=== PATIENT | male | born 1960 | race Caucasian/White ===

== ENCOUNTER 2023-04-19 08:25 | Outpatient (OUT) | payer OTHER, SELFPAY ==
[2023-04-19 09:26] LABS: Anion Gap 10.8; BUN Creatinine Ratio 10.1; Carbon Dioxide 27.7 mmol/L (21.0-32.0); Chloride 105 mmol/L (98-107); Estimated GFR (African America 55 (>=60); Estimated GFR (Non-African Ame 45 (>=60); Glucose 99 mg/dL (74-106); Potassium 4.5 mmol/L (3.5-5.1); Sodium 139 mmol/L (136-145)
== END 2023-04-19 08:26 | disposition home or self-care (01) ==
LOC: LAB 08:25
PROVIDERS: PCP Family Medicine; Visit Provider Nurse Practitioner
DX: I10 Essential (primary) hypertension (principal)
CPT/HCPCS: 36415; 80048

== ENCOUNTER 2023-04-26 08:39 | Outpatient (OUT) | payer OTHER, SELFPAY ==
--- OUTSIDE RECORDS SUMMARY | 2023-04-26 08:42 | XMS_ITS | CCD ---
Author Name Unknown Address [address] [facility], [place] [address] [place] [address] Organization [facility] Care Team Providers Care Information Technology Director Name Role Phone YONG, DR VALDIVIA Consulting Unavailable YONG, DR VALDIVIA Primary Care Unavailable YONG, DR VALDIVIA Attending Unavailable DELPHINEY, DR VALDIVIA Admitting Unavailable MIKE RADFORD Consulting Unavailable MALINA, MIKE Attending Unavailable MIKE RADFORD Admitting Unavailable YONG, DR VALDIVIA Primary Care Unavailable STEVE PALACIOS Consulting Unavailable YONG, DR VALDIVIA Primary Care Unavailable YONG, DR VALDIVIA Attending Unavailable YONG, DR VALDIVIA Admitting Unavailable DELPHINEY, DR VALDIVIA Primary Care Unavailable HOMarco Antonio, DR VALDIVIA Attending Unavailable YONG, DR VALDIVIA Admitting Unavailable YONG, DR VALDIVIA Consulting Unavailable YONG, DR VALDIVIA Primary Care Unavailable YONG, DR VALDIVIA Attending Unavailable YONG, DR VALDIVIA Admitting Unavailable Zieber, DR Elise Consulting Unavailable DELPHINEY, DR VALDIVIA Consulting Unavailable YONG, DR VALDIVIA Primary Care Unavailable YONG, DR VALDIVIA Attending Unavailable YONG, DR VALDIVIA Admitting Unavailable Bear, DR Davila Consulting Unavailable YONG, DR VALDIVIA Consulting Unavailable YONG, DR VALDIVIA Primary Care Unavailable YONG, DR VALDIVIA Attending Unavailable YONG, DR VALDIVIA Admitting Unavailable Bear, DR Davila Consulting Unavailable YONG, DR VALDIVIA Consulting Unavailable YONG, DR VALDIVIA Primary Care Unavailable YONG, DR VALDIVIA Attending Unavailable YONG, DR VALDIVIA Admitting Unavailable YONG, DR VALDIVIA Consulting Unavailable YONG, DR VALDIVIA Primary Care Unavailable YONG, DR VALDIVIA Attending Unavailable YONG, DR VALDIVIA Admitting Unavailable YONG, DR VALDIVIA Consulting Unavailable YONG, DR VALDIVIA Primary Care Unavailable YONG, DR VALDIVIA Attending Unavailable YONG, DR VALDIVIA Admitting Unavailable MD Shea Beach Primary Care Provider [phone] DO Damien Hercules Emergency Provider MD Derick Gomes Admit Provider [phone] MD Derick Gomse Attending Provider [phone] Claudia Parra Consulting Unavailable Shea Beach Primary Care Unavailable [place] Attending Unavailable Derick Gomes Admitting Unavailable Alistair Morelos Consulting Unavailable Steve See Consulting Unavailable Mike Lama Consulting Unavail able Eric Villa Consulting Unavailable Magdy Rose Consulting Unavailab Andra Bernstein Consulting Unavailable Michelle Dumont Consulting Unavailable Jean Gustafson Consulting Unavailab Adelita Jaimes Consulting Unavailable Rosanne Heard Consulting Unavailable Diann Garcia Consulting Unavailable Shea Beach MD Primary Care Provider [phone] Allergies Allergy Classification Reported Allergen(s) Allergy Type Date of Onset Reaction(s) Facility (1 source) Aminolevulinic Acid Drug Allergy 0 [facility] Repository (2 sources) Nitroglycerin Drug Allergy 9 Other [facility] Medications Current Medications Medication Drug Class(es) Dates Sig (Normalized) Sig (Original) amLODIPine 10 mg oral tablet (2 sources) Dihydropyridine Calcium Channel Long Start: 01-22-2023 End: 01-23-2024 take 1 tablet by mouth once daily amLODIPine (Norvasc) 10 mg tablet Indications: Hypertensive left ventricular hypertrophy, without heart failure Take 1 tablet (10 mg) by mouth once daily. 90 tablet 3 01/23/2023 01/23/2024 Active azelastine hydrochloride 0.5 mg/ml ophthalmic solution (1 source) Histamine-1 Receptor Antagonist Start: 2022 take 1 drop(s) into the eye(s) once daily Azelastine Active 1 DROPS EYE-BOTH Daily 2022 12:00am doxazosin 4 mg oral tablet (4 sources) alpha-Adrenergic Long Start: 2022 take 2 tablets by mouth once daily Doxazosin Active 4 MG PO Daily 2022 12:00am takes 2 tabs take 1 tablet by melissa th every twelve hours doxazosin (Cardura) 4 mg tablet Take 1 tablet (4 mg) by mouth every 12 hours. 0 Active empagliflozin 10 mg oral tablet (2 sources) Sodium-Glucose Cotransporter 2 Inhibitor Start: 12-13-2022 take 1 tablet by mouth once daily Jardiance 10 mg Take 1 tablet (10 mg) by mouth once daily. 0 12/13/2022 Active 24 hr metFORMIN hydrochloride 500 mg extended release oral tablet (3 sources) Biguanide Start: 2022 take 500 mg by mouth once daily at bedtime Metformin Active 500 MG PO Daily at bedtime 2022 12:00am Start: 06-17-2022 take 1 tablet by melissa th every twenty-four hours metFORMIN XR 500 mg 24 hr tablet Take 1 tablet (500 mg) by mouth once every 24 hours. 0 06/17/2022 Active 24 hr metoprolol succinate 25 mg extended release oral tablet (4 sources) beta-Adrenergic Long Start: 01-22-2023 metopr olol succinate XL (Toprol-XL) 25 mg 24 hr tablet Indications: Hypertensive left ventricular hypertrophy, without heart failure Take 1.5 tablets daily (37.5mg) daily 135 tablet 0 01/23/2023 Active Start: 2022 take 1.5 tablets by mouth once daily Metoprolol Succinate Active 100 MG PO Daily 2022 12:00am take 1.5tabs Start: 11-16-2018 End: 01-22-2023 take 1 tablet by mouth twice daily metoprolol succinate XL (Toprol-XL) 25 mg 24 hr tablet Take 1 tablet (25 mg) by mouth twice a day. 0 11/16/2018 01/22/2023 Discontinued (Med List Cleanup) Ozempic 0.25 mg or 0.5 mg (2 mg/3 mL) pen injector (2 sources) Start: 12-13-2022 Ozempic 0.25 mg or 0.5 mg (2 mg/3 mL) pen injector spironolactone 25 mg oral tablet (1 source) Aldosterone Antagonist Start: 03-25-2023 End: 03-24-2024 take 1 tablet by mouth once daily spironolactone (Aldactone) 25 mg tablet Indications: Essential hypertension Take 1 tablet (25 mg) by mouth once daily. 30 tablet 11 03/25/2023 03/24/2024 Active valsartan 320 mg oral tablet (3 sources) Angiotensin 2 Receptor Long Start: 01-22-2023 End: 01-23-2024 take 1 tablet by mouth once daily valsartan (Diovan) 320 mg tablet Indications: Hypertensive left ventricular hypertrophy, without heart failure Take 1 tablet (320 mg) by mouth once daily. 90 tablet 3 01/23/2023 01/23/2024 Active End: 01-22-2023 take 1 tablet by mouth once daily valsartan (Diovan) 160 mg tablet Take 1 tablet (160 mg) by mouth once daily. 0 01/22/2023 Discontinued (Med List Cleanup) Completed/Discontinued Medications Medication Drug Class(es) Dates Sig (Normalized) Sig (Original) hydrALAZINE hydrochloride 50 mg oral tablet (1 source) Arteriolar Vasodilator Start: End: take 1 tablet by mouth twice daily hydrALAZINE (Apresoline) 50 mg tablet Take 1 tablet (50 mg) by mouth twice a day. 0 09/10/2018 01/22/2023 Discontinued (Therapy completed) hydroCHLOROthiazide 25 mg oral tablet (1 source) Thiazide Diuretic End: take 1 tablet by mouth once daily hydroCHLOROthiazide (HYDRODiuril) 25 mg tablet Take 1 tablet (25 mg) by mouth once daily. 0 01/22/2023 Discontinued (Therapy completed) Problems Active Problems Problem Classification Problem Date Documented Da te Episodic/Chronic Acute bronchitis (1 source) Acute bronchitis, unspecified; Translations: [ACUTE BRONCHITIS UNSPECIFIED] Onset: 11-01-2021 Episodic Cancer of kidney and renal pelvis (9 sources) Malignant neoplasm of unspecified kidney, except renal pelvis; Translations: [Malignant neoplasm of left kidney, except renal pelvis] Onset: 03-27-2021 Chronic Diabetes mellitus without complication (8 sources) Type 2 diabetes mellitus without complications; Translations: [Type 2 diabetes mellitus] Onset: 04-09-2021 Chronic Diabetes mellitus without complication (1 source) Other abnormal glucose; Translations: [OTHER ABNORMAL GLUCOSE] Onset: 11-28-2021 Episodic Essential hypertension (9 sources) Essential (primary) hypertension; Translations: [Essential hypertension] Onset: 11-24-2021 Chronic Hypertension with complications and secondary hypertension (6 sources) Hypertensive urgency ; Translations: [Hypertensive urgency] Onset: 2022 2022 Chronic Nonspecific chest pain (4 sources) Chest pain; Translations: [Chest pain, unspecified] Onset: 2022 2022 Episodic Other diseases of kidney and ureters (2 sources) Renal mass; Translations: [Other specified disorders of kidney and ureter] Onset: 01-17-2023 01-17-2023 Chronic Other nutritional; endocrine; and metabolic disorders (4 sources) Body mass index 40+ - severely obese; Translations: [Body mass index (BMI) 40.0-44.9, adult] Onset: 01-23-2023 01-23-2023 Chronic Residual codes; unclassified (4 sources) Obstructive sleep apnea (adult) (pediatric); Translations: [OBSTRUCTIVE SLEEP APNEA] Onset: 04-10-2021 Chronic Residual codes; unclassified (3 sources) Obstructive sleep apnea syndrome; Translations: [Obstructive sleep apnea (adult) (pediatric)] Onset: 01-22-2023 01-22-2023 Chronic Unclassified (3 sources) CONTACT W/AND (SUSP) EXPOS COVID-19; Translations: [CONTACT W/AND (SUSP) EXPOS COVID-19] Onset: 11-01-2021 Past or Other Problems Problem Classification Problem Date Documented Da te Episodic/Chronic Neoplasms of unspecified nature or uncertain behavior (2 sources) Neoplasm of kidney; Translations: [Neoplasm of unspecified behavior of unspecified kidney] Onset: 12-22-2018 01-17-2023 Episodic Other non-traumatic joint disorders (3 sources) Pain in left knee; Translations: [PAIN IN LEFT KNEE] Onset: 03-25-2021 Episodic Other non-traumatic joint disorders (1 source) Effusion, left knee; Translations: [EFFUSION LEFT KNEE] Onset: 03-27-2021 Episodic Unclassified (1 source) CONTACT W/AND (SUSP) EXPOS COVID-19; Translations: [CONTACT W/AND (SUSP) EXPOS COVID-19] Onset: 10-31-2021 Results Test Name Value Interpretation Reference Range Facility [facility] W stress and W radionuclide Karen 12-17-2022 Normal exercise Myov iew cardiac perfusion stress test. No evidence of ischemia or myocardial infarction by perfusion imaging. Normal left ventricular systolic function, ejection fraction 59%. No exercise provoked significant ischemic ECG changes or chest pain symptoms. No previous study available for comparison Patient was able to exercise for only 4 minute per the Truong protocol but was able to achieve 88% of maximum predicted heart rate. This consistent with poor cardiopulmonary conditioning. Signed by: Eric Villa 12/17/2022 5:57 PM Dictation workstation: [id number] [facility] Interpreted By: Eric Villa and Giannuzzi Michael STUDY: MYOCARDIAL PERFUSION STRESS TEST WITH EXERCISE Performing facility: [facility], [address] [place] [address], [address], [address] Provider: Chaim Morelos DO, FACC PCP: Dr. Beach Supervising provider: Andra Ramirez RN, EXAMINATION SCORER INDICATION: Chest Pain; HISTORY: Gender: M; Age: 62 y/o ; Height: cm; Weight: kg. Diabetes; Family HX CAD; HTN; SOB; Denies smoking. COMPARISON: No comparison. ACCESSION NUMBER(S): [id number] ORDERING CLINICIAN: MIKE MORELOS TECHNIQUE: TWO DAY protocol. Stress injection: Date:12-16-22, 34.5 mCi of Myoview IV at peak exercise. Rest injection: Date: 12-17-22, 11.7 mCi of Myoview IV at rest. Imaging was performed by gated tomographic technique. STRESS TEST DATA: Resting heart rate was 67 BPM. Resting blood pressure was 160/84 mmHg. The patient exercised using a Truong exercise protocol. 4:01 minutes exercised. 88 % of MPHR achieved for age. 5.80 METS achieved. Maximum heart rate was 142 BPM. Maximum blood pressure was 200/90 mmHg. DTS 4. TEST TERMINATED DUE TO: Dyspnea FINDINGS: STRESS TEST RESULTS: Resting electrocardiogram revealed normal sinus rhythm with poor R-wave progression the anterior lead. The patient had no significant ECG changes with maximal stress. The patient did not have chest pains/symptoms during the procedure. There was a normal recovery phase. There were no significant dysrhythmias. IMAGING RESULTS: Image quality was good. Rest and stress tomographic images were reviewed and revealed normal perfusion without evidence of ischemia, myocardial infarction, or left ventricular dilatation with stress. Overall left ventricular systolic function appeared to be normal without regional wall motion abnormalities. LV ejection fraction was 59 %. TID is 1.02 and is normal. There were no evidence of attenuation artifact. [facility] Eric Villa MD - 12/17/2022 Interpreted By: Eric Villa and Giannuzzi Michael STUDY: MYOCARDIAL PERFUSION STRESS TEST WITH EXERCISE Performing facility: [facility], [address] [facility], [address], [address] Provider: Chaim Morelos DO, FACC PCP: Dr. Beach Supervising provider: Andra Ramirez RN, EXAMINATION SCORER INDICATION: Chest Pain; HISTORY: Gender: M; Age: 62 y/o ; Height: cm; Weight: kg. Diabetes; Family HX CAD; HTN; SOB; Denies smoking. COMPARISON: No comparison. ACCESSION NUMBER(S): [id number] ORDERING CLINICIAN: MIKE MORELOS TECHNIQUE: TWO DAY protocol. Stress injection: Date:12-16-22, 34.5 mCi of Myoview IV at peak exercise. Rest injection: Date: 12-17-22, 11.7 mCi of Myoview IV at rest. Imaging was performed by gated tomographic technique. STRESS TEST DATA: Resting heart rate was 67 BPM. Resting blood pressure was 160/84 mmHg. The patient exercised using a Truong exercise protocol. 4:01 minutes exercised. 88 % of MPHR achieved for age. 5.80 METS achieved. Maximum heart rate was 142 BPM. Maximum blood pressure was 200/90 mmHg. DTS 4. TEST TERMINATED DUE TO: Dyspnea FINDINGS: STRESS TEST RESULTS: Resting electrocardiogram revealed normal sinus rhythm with poor R-wave progression the anterior lead. The patient had no significant ECG changes with maximal stress. The patient did not have chest pains/symptoms during the procedure. There was a normal recovery phase. There were no significant dysrhythmias. IMAGING RESULTS: Image quality was good. Rest and stress tomographic images were reviewed and revealed normal perfusion without evidence of ischemia, myocardial infarction, or left ventricular dilatation with stress. Overall left ventricular systolic function appeared to be normal without regional wall motion abnormalities. LV ejection fraction was 59 %. TID is 1.02 and is normal. There were no evidence of attenuation artifact. IMPRESSION: Normal exercise Myoview cardiac perfusion stress test. No evidence of ischemia or myocardial infarction by perfusion imaging. Normal left ventricular systolic function, ejection fraction 59%. No exercise provoked significant ischemic ECG changes or chest pain symptoms. No previous study available for comparison Patient was able to exercise for only 4 minute per the Truong protocol but was able to achieve 88% of maximum predicted heart rate. This consistent with poor cardiopulmonary conditioning. Signed by: Eric Villa 12/17/2022 5:57 PM Dictation workstation: [id number] [facility] Work Phone: NM Heart Perfusion W stress and W radionuclide IVOrdered By: Eric Villa on 12-17-2022 [facility] Work Phone: NM Heart Perfusion W stress and W radionuclide Karen 12-16-2022 Radiology Study observation (narrative) [facility] Work Phone: Glucose Poct Glucometerson 1 Glucose [Mass/Vol] 132 mg/dL Normal [facility] Comment on above: Result Comment: [facility] Glucose Reference Range is dependent on time and content of last meal. Glucose of more than 200 mg/dL in a nonstressed, ambulatory subject supports the diagnosis of Diabetes Mellitus. PERFORMED BY: [place] [address] PATHOLOGIST SYSTEMS PROGRAM MANAGER ROSCOE CASTRO M.D. Performed By: #### C BC, BMP, BNP, HS TROP, CK #### [place] [phone] [facility] Glucose [Mass/Vol] 141 mg/dL Normal [facility] Comment on above: Result Comment: [facility] Glucose Reference Range is dependent on time and content of last meal. Glucose of more than 200 mg/dL in a nonstressed, ambulatory subject supports the diagnosis of Diabetes Mellitus. PERFORMED BY: [place] [address] PATHOLOGIST SYSTEMS PROGRAM MANAGER ROSCOE CASTRO M.D. Performed By: #### C BC, BMP, BNP, HS TROP, CK #### [facility] [phone] [facility] ECH echo transthoracicon [facility] echo transthoracic [facility] Main [place] [address] [place] [address] Echocardiogram Signed Patient: Clarence Flores MR#: [id number] : 1960 Acct:[id number] Age/Sex: 62 / M ADM Date: 11/10/22 Loc: Room: [address] [place] [address] Type: ADM INOo Attending Dr[facility] Order[facility] Provider: Maura Venegas MD Date of Service: 11/10/2203/04/1501 [facility] echo transthoracic: chest pain Copies to: MD Maura Darby MD BSA: 2.3 m2 BP: 169/76 mmHg HR: 58 Reason For Study: chest pain History: DM. HTN. Cancer. Interpretation Summary Left ventricular systolic function is hyperdynamic. Ejection Fraction = >70%. Moderate concentric left ventricular hypertrophy. The left ventricular wall motion is normal. There is trace mitral regurgitation. There is no comparison study available. Procedure/Quality: A two-dimensional transthoracic echocardiogram with color flow, Doppler and injection of contrast agent Definity was performed. A two- dimensional transthoracic echocardiogram with color flow and Doppler was performed. Left Ventricle: Moderate concentric left ventricular hypertrophy. The left ventricular size is normal. Ejection Fraction = >70%. Left ventricular systolic function is hyperdynamic. The left ventricular wall motion is normal. Left Atrium: The left atrium appears normal in size. Right Atrium: The right atrium appears normal in size. Right Ventricle: The right ventricular size, thickness and function are normal. Aortic Valve: The aortic valve is normal in structure and function. No aortic regurgitation is present. Mitral Valve: The mitral valve is normal in structure and function. There is trace mitral regurgitation. Tricuspid Valve: The tricuspid valve is normal in structure and function. No tricuspid regurgitation. Pulmonic Valve: The pulmonic valve is not well seen, but is grossly normal. Arteries: The aortic root is normal size. Pericardium/Pleura: No pericardial effusion seen. There is no pleural effusion. IVC/Hepatic Viens: The inferior vena cava is normal in size, with a normal collapsibility index. Measurements with Normals IVSd: 1.3 cm (0.7-1.1 cm)LVIDd: 5.2 cm (3.7-5.4 cm) LVPWd: 1.3 cm (0.7-1.1 cm)LVIDs: 3.2 cm (2.3-3.6 cm) LA dimension: 4.7 cm (2.3-4.0 cm)Ao root diam: 3.5 cm(2.0-3.6 cm) asc Aorta Diam: 3.6 cm(2.1-3.4cm) Doppler with Normals LV V1 max: 129.6 cm/sec (0.7-1.7m/s)MV E max abran: 82.7 cm/sec(0.8-1.3m/s) MV A max abran: 70.7 cm/sec(0.0-0.0m/s) MV E/A: 1.2 (<1.5) MMode/2D Measurements Calculations TAPSE: 2.3 cm FS: 39.0 % Ao root area: LVOT diam: 2.2 cm RV S Abran: EDV(Teich): 9.7 cm2 LVOT area: 3.8 cm2 13.9 cm/sec 131.8 ml ESV(Teich): 40.8 ml EF(Teich): 69.0 % __ LVLd ap4: 8.5 cm SV(MOD-sp4): LAV(MOD-sp4): LA A2 area: 25.5 cm2 EDV(MOD-sp4): 140.3 ml 68.5 ml 194.0 ml LAV(MOD-sp2): LA A4 area: 23.1 cm2 LVLs ap4: 7.5 cm 80.8 ml LA length (vol): ESV(MOD-sp4): 6.0 cm 53.7 ml LA vol: 83.6 ml EF(MOD-sp4): 72.3 % LA vol index: 36.1 ml/m2 Doppler Measurements Calculations MV dec time: MV max PG: E/E' lat: 7.7 MV dec slope: 0.26 sec 33.0 mmHg E/E' med: 9.5 319.5 cm/sec2 __ Ao V2 max: LV V1 max PG: MR max abran: RAP systole: 3.0 mmHg 173.7 cm/sec 6.7 mmHg 288.1 cm/sec Ao max PG: LV V1 mean PG: MR max P.1 mmHg 3.6 mmHg 34.6 mmHg Ao mean PG: LV V1 mean: 6.5 mmHg 89.7 cm/sec Ao V2 mean: LV V1 VTI: 26.5 cm 119.6 cm/sec Ao V2 VTI: 36.3 cm JAVIER(I,D): 2.8 cm2 JAVIER(V,D): 2.9 cm2 Transcribed By: MAREK Performed At: 11/11/22 1126 Signed By: Lalita Capellan MD 11/12/22 1033 Normal [facility] Glucose Poct Glucometerson 1 Glucose [Mass/Vol] 156 mg/dL Normal [facility] Comment on above: Result Comment: [facility] Glucose Reference Range is dependent on time and content of last meal. Glucose of more than 200 mg/dL in a nonstressed, ambulatory subject supports the diagnosis of Diabetes Mellitus. PERFORMED BY: [place] [address] PATHOLOGIST SYSTEMS PROGRAM MANAGER ROSCOE CASTRO M.D. Performed By: #### G LULS #### Point of Care testing , Glucose [Mass/Vol] 187 mg/dL Normal [facility] Comment on above: Result Comment: [facility] Glucose Reference Range is dependent on time and content of last meal. Glucose of more than 200 mg/dL in a nonstressed, ambulatory subject supports the diagnosis of Diabetes Mellitus. PERFORMED BY: [place] [address] PATHOLOGIST SYSTEMS PROGRAM MANAGER ROSCOE CASTRO M.D. Performed By: #### C BC, BMP, BNP, HS TROP, CK #### [address] Glucose [Mass/Vol] 162 mg/dL Normal [facility] Comment on above: Result Comment: [facility] Glucose Reference Range is dependent on time and content of last meal. Glucose of more than 200 mg/dL in a nonstressed, ambulatory subject supports the diagnosis of Diabetes Mellitus. PERFORMED BY: [place] [id number] PATHOLOGIST SYSTEMS PROGRAM MANAGER ROSCOE CASTRO M.D. Performed By: #### C BC, BMP, BNP, HS TROP, CK #### [facility] [address] [phone] [facility] A1C with Estimated Average G luon 2022 Glucose [Mass/Vol] 157 mg/dL Normal [facility] Comment on above: Order Comment: Comme nt add Result Comment: PERF ORMED BY: [place] [id number] PATHOLOGIST SYSTEMS PROGRAM MANAGER ROSCOE CASTRO M.D. Performed By: #### C BC, BMP, BNP, HS TROP, CK #### [place] [phone] [facility] HbA1c (Bld) [Mass fraction] 7.1 % High 4.3-5.6 [facility] Comment on above: Order Comment: Comme nt add Result Comment: Incr eased risk for diabetes: 5.7 - 6.4 diabetes: >6.4 glycemic control for adults with diabetes: <7.0 Performed By: #### C BC, BMP, BNP, HS TROP, CK #### [facility] [address] [place], [place] [phone] [facility] Activated partial thrombopla stin time (aPTT) in platelet poor plasma by coagulation aOrdered By: Damien Hercules on 2022 aPTT Coag (PPP) [Time] 29.0 s 25.1-36.5 [facility] Comment on above: A hematocrit value g reater than 55% may lead to inaccurate results in coagulation testing. Patients having hematocrit values >55% require a special collection tube for coagulation studies. Please contact the laboratory at [phone] for redraw instructions. B-Type Natriuretic Peptideon 2022 Natriuretic peptide B (Bld) [Mass/Vol] 101.0 pg/mL High 5-100 [facility] Comment on above: Result Comment: PERF ORMED BY: [place] [address] PATHOLOGIST SYSTEMS PROGRAM MANAGER ROSCOE CASTRO M.D. Performed By: #### C BC, BMP, BNP, HS TROP, CK #### [address] Basic Metabolic Panelon Anion gap [Moles/Vol] 11.3 mmol/L Normal 6.0-15.0 [facility] Comment on above: Performed By: #### B MP #### [address] Calcium [Mass/Vol] 9.2 mg/dL Normal 8.6-10.3 [facility] Comment on above: Performed By: #### B MP #### [address] Chloride [Moles/Vol] 106 mmol/L Normal 98-107 [facility] Comment on above: Performed By: #### B MP #### [address] CO2 [Moles/Vol] 25.2 mmol/L Normal 21.0-31.0 [facility] Comment on above: Performed By: #### B MP #### [address] Creatinine [Mass/Vol] 1.22 mg/dL Normal 0.70-1.30 [facility] Comment on above: Performed By: #### B MP #### [place] [address] [place] Creatinine Clr Calc Pharmacy 82.15 Normal [facility] Comment on above: Result Comment: PERF ORMED BY: [place] [address] PATHOLOGIST SYSTEMS PROGRAM MANAGER ROSCOE CASTRO M.D. Performed By: #### B MP #### [place] [address] [place] GFR/1.73 sq M.predicted MDRD (S/P/Bld) [Vol rate/Area] mL/min/{1.73_m2} Normal [facility] Comment on above: Performed By: #### B MP #### [address] Glucose [Mass/Vol] 298 mg/dL Significant change up 70-100 [facility] Comment on above: Result Comment: [facility] [place] Glucose Reference Range is dependent on time and content of last meal. Glucose of more than 200 mg/dL in a nonstressed, ambulatory subject supports the diagnosis of Diabetes Mellitus. ADA recommended reference range Performed By: #### B MP #### [address] Potassium [Moles/Vol] 3.5 mmol/L Normal 3.5-5.1 [facility] Comment on above: Performed By: #### B MP #### [place] [address] [place] Sodium [Moles/Vol] 139 mmol/L Normal 136-145 [facility] Comment on above: Performed By: #### B MP #### [address] Urea nitrogen [Mass/Vol] 13 mg/dL Normal 7-25 [facility] Comment on above: Performed By: #### B MP #### [place] [address] [place] Anion gap [Moles/Vol] 10.4 mmol/L Normal 6.0-15.0 [facility] Comment on above: Performed By: #### C BC, BMP, BNP, HS TROP, CK #### [place] [address] [place] Calcium [Mass/Vol] 9.0 mg/dL Normal 8.6-10.3 [facility] Comment on above: Performed By: #### C BC, BMP, BNP, HS TROP, CK #### [address] [place] [address] [place] Chloride [Moles/Vol] 106 mmol/L Normal 98-107 [facility] Comment on above: Performed By: #### C BC, BMP, BNP, HS TROP, CK #### [facility] [address] CO2 [Moles/Vol] 26.2 mmol/L Normal 21.0-31.0 [facility] Comment on above: Performed By: #### C BC, BMP, BNP, HS TROP, CK #### [facility] [address] Creatinine [Mass/Vol] 1.39 mg/dL High 0.70-1.30 [facility] Comment on above: Performed By: #### C BC, BMP, BNP, HS TROP, CK #### [address] Creatinine Clr Calc Pharmacy 72.10 [facility] Comment on above: Result Comment: PERF ORMED BY: [place] [address] PATHOLOGIST SYSTEMS PROGRAM MANAGER ROSCOE CASTRO M.D. Performed By: #### C BC, BMP, BNP, HS TROP, CK #### [address] GFR/1.73 sq M.predicted MDRD (S/P/Bld) [Vol rate/Area] 58.037 mL/min/{1.73_m2} [facility] Comment on above: Performed By: #### C BC, BMP, BNP, HS TROP, CK #### [place] [address] [place] Glucose [Mass/Vol] 170 mg/dL High 70-100 [facility] Comment on above: Result Comment: [place] Glucose Reference Range is dependent on time and content of last meal. Glucose of more than 200 mg/dL in a nonstressed, ambulatory subject supports the diagnosis of Diabetes Mellitus. ADA recommended reference range Performed By: #### C BC, BMP, BNP, HS TROP, CK #### [facility] [address] Potassium [Moles/Vol] 3.6 mmol/L Normal 3.5-5.1 [facility] Comment on above: Performed By: #### C BC, BMP, BNP, HS TROP, CK #### [facility] [address] Sodium [Moles/Vol] 139 mmol/L Normal 136-145 [facility] Comment on above: Performed By: #### C BC, BMP, BNP, HS TROP, CK #### [facility] [address] Urea nitrogen [Mass/Vol] 14 mg/dL Normal 7-25 [facility] Comment on above: Performed By: #### C BC, BMP, BNP, HS TROP, CK #### [facility] [address] Basophils Auto (Bld) [#/Vol] Ordered By: Damien Hercules on 2022 Basophils (Bld) [#/Vol] 0.1 10*3/uL 0.0-0.2 [facility] Basophils/100 WBC Auto (Bld) Ordered By: Damien Hercules on 2022 Basophils/100 WBC (Bld) 1.0 % . [facility] Calcium [Mass/volume] in Ser um or PlasmaOrdered By: Damien Hercules on 2022 Calcium [Mass/Vol] 9.0 mg/dL 8.6-10.3 [facility] Carbon dioxide, total [Moles /volume] in Serum or PlasmaOrdered By: Damien Hercules on 2022 CO2 [Moles/Vol] 26.2 mmol/L 21.0-31.0 [facility] Chloride [Moles/volume] in S luke or PlasmaOrdered By: Damien Hercules on 2022 Chloride [Moles/Vol] 106 mmol/L 98-107 [facility] Coagulation Profileon 2022 aPTT Coag (Bld) [Time] 29.0 s Normal 25.1-36.5 [facility] Comment on above: Order Comment: REDRA W Result Comment: A he matocrit value greater than 55% may lead to inaccurate results in coagulation testing. Patients having hematocrit values >55% require a special collection tube for coagulation studies. Please contact the laboratory at [phone] for redraw instructions. PERFORMED BY: [place] [address] PATHOLOGIST SYSTEMS PROGRAM MANAGER ROSCOE CASTRO M.D. Performed By: #### C BC, BMP, BNP, HS TROP, CK #### [address] INR Coag (PPP) [Relative time] 1.0 {INR} Normal [facility] Comment on above: Order Comment: REDRA W Result Comment: INR Therapeutic Range A) Pre- and Peroperative OAT started two weeks before surgery. NOT HIP SURGERY: 1.5 - 2.5 HIP SURGERY: 2 - 3 B) Primary and secondary prevention of venous THROMBOSIS: 2 - 3 C) Active venous thrombosis, pulmonary embolism and prevention of recurrent venous thrombosis: 2 - 3 D) Prevention of arterial thromboembolism including patients with mechanical heart valves: 3 - 4.5 Performed By: #### C BC, BMP, BNP, HS TROP, CK #### [address] PT Coag (PPP) [Time] 12.4 s Normal 9.0-12.9 [facility] Comment on above: Order Comment: REDRA W Result Comment: A he matocrit value greater than 55% may lead to inaccurate results in coagulation testing. Patients having hematocrit values >55% require a special collection tube for coagulation studies. Please contact the laboratory at [phone] for redraw instructions. Performed By: #### C BC, BMP, BNP, HS TROP, CK #### [facility] [address] [place] [address] Complete Blood Count Auto Di ffon 2022 Basophils (Bld) [#/Vol] 0.1 10*3/uL Normal 0.0-0.2 [facility] Comment on above: Result Comment: PERF ORMED BY: [place] [address] PATHOLOGIST SYSTEMS PROGRAM MANAGER ROSCOE CASTRO M.D. Performed By: #### C BC, BMP, BNP, HS TROP, CK #### [address] Basophils/100 WBC (Bld) 1.0 % Normal . [facility] Comment on above: Performed By: #### C BC, BMP, BNP, HS TROP, CK #### [address] Eosinophils (Bld) [#/Vol] 0.3 10*3/uL Normal 0.0-0.45 [facility] Comment on above: Performed By: #### C BC, BMP, BNP, HS TROP, CK #### [address] Eosinophils/100 WBC (Bld) 2.9 % Normal . [facility] Comment on above: Performed By: #### C BC, BMP, BNP, HS TROP, CK #### [address] Erythrocyte distribution width (RBC) [Ratio] 14.8 % Normal 12.0-14.8 [facility] Comment on above: Performed By: #### C BC, BMP, BNP, HS TROP, CK #### [address] Hematocrit (Bld) [Volume fraction] 43.8 % Normal 38.8-50.0 [facility] Comment on above: Performed By: #### C BC, BMP, BNP, HS TROP, CK #### [address] Hemoglobin (Bld) [Mass/Vol] 15.0 g/dL Normal 13.0-17.0 [facility] Comment on above: Performed By: #### C BC, BMP, BNP, HS TROP, CK #### [address] Lymphocytes (Bld) [#/Vol] 1.8 10*3/uL Normal 1.00-4.8 [facility] Comment on above: Performed By: #### C BC, BMP, BNP, HS TROP, CK #### [address] Lymphocytes/100 WBC (Bld) 19.7 % Normal . [facility] Comment on above: Performed By: #### C BC, BMP, BNP, HS TROP, CK #### [address] MCH (RBC) [Entitic mass] 28.8 pg Normal 27.5-35.2 [facility] Comment on above: Performed By: #### C BC, BMP, BNP, HS TROP, CK #### [address] MCV (RBC) [Entitic vol] 84.1 fL Normal 83.5-101 [facility] Comment on above: Performed By: #### C BC, BMP, BNP, HS TROP, CK #### [address] Mean Corpuscular HGB Conc 34.3 g/dL Normal 32.5-35.6 [facility] Comment on above: Performed By: #### C BC, BMP, BNP, HS TROP, CK #### [address] Monocytes (Bld) [#/Vol] 0.8 10*3/uL Normal 0.0-0.8 [facility] Comment on above: Performed By: #### C BC, BMP, BNP, HS TROP, CK #### [address] Monocytes/100 WBC (Bld) 20.13 % High 0.00-20.00 [facility] Comment on above: Result Comment: For adults in ED, MDW > 20.0 may be associated with a higher risk of sepsis during the first 12 hrs of hospital admission Performed By: #### C BC, BMP, BNP, HS TROP, CK #### [address] Monocytes/100 WBC (Bld) 9.2 % Normal . [facility] Comment on above: Performed By: #### C BC, BMP, BNP, HS TROP, CK #### [facility] [address] Neutrophils (Bld) [#/Vol] 6.2 10*3/uL Normal 1.8-7.7 [facility] Comment on above: Performed By: #### C BC, BMP, BNP, HS TROP, CK #### [address] Neutrophils/100 WBC (Bld) 67.2 % Normal . [facility] Comment on above: Performed By: #### C BC, BMP, BNP, HS TROP, CK #### [address] NRBC% 0.1 /100{WBC} Normal 0-0.5 [facility] Comment on above: Performed By: #### C BC, BMP, BNP, HS TROP, CK #### [address] Platelet mean volume (Bld) [Entitic vol] 7.7 fL Normal 6.6-10.1 [facility] Comment on above: Performed By: #### C BC, BMP, BNP, HS TROP, CK #### [address] Platelets (Bld) [#/Vol] 194 10*3/uL Normal 150-450 [facility] Comment on above: Performed By: #### C BC, BMP, BNP, HS TROP, CK #### [address] RBC (Bld) [#/Vol] 5.21 10*6/uL Normal 3.90-5.60 [facility] Comment on above: Performed By: #### C BC, BMP, BNP, HS TROP, CK #### [address] WBC (Bld) [#/Vol] 9.2 10*3/uL Normal 4.1-10.5 [facility] Comment on above: Performed By: #### C BC, BMP, BNP, HS TROP, CK #### [facility] [address] [place] [id number] [place] Creatine Kinaseon 2022 CK [Catalytic activity/Vol] 111 U/L Normal [facility] Comment on above: Performed By: #### C BC, BMP, BNP, HS TROP, CK #### [facility] [address] Creatine kinase [Enzymatic a ctivity/volume] in Serum or PlasmaOrdered By: Damien Hercules on 2022 CK [Catalytic activity/Vol] 111 U/L [facility] Creatinine [Mass/volume] in Serum or PlasmaOrdered By: Damien Hercules on 2022 Creatinine [Mass/Vol] 1.39 mg/dL 0.70-1.30 [facility] ECG 12 lead ECGon 2022 ECG 12 lead ECG [facility] [place] [address] [place] [address] Electrocardiograph Report Signed Patient: Clarence Flores MR#: [id number] : 1960 Acct:[id number] Age/Sex: 61 / M ADM Date: 11/10/22 Loc: Room: [address] [place] [address] Type: ADM INOo Attending Dr: Derick Gomes MD Ordering Provider: Damien Hercules DO Date of Service: 11/09/22 ECG/ECG 12 lead ECG: Shortness of Breath/Dyspnea Copies to: Test Reason : Blood Pressure : 245/105 mmHG Vent. Rate : 064 BPM Atrial Rate : 064 BPM P-R Int : 156 ms QRS Dur : 094 ms QT Int : 432 ms P-R-T Axes : 069 025 076 degrees QTc Int : 445 ms Normal sinus rhythm Nonspecific ST abnormality Abnormal ECG No previous ECGs available Confirmed by DAMIEN HERCULES DO ([id number]) on 2022 6:04:58 AM Referred By: Electronically Signed By:DAMIEN HERCULES DO Transcribed By: MUS Signed By Damien Hercules DO 0605 Normal [facility] Eosinophils Auto (Bld) [#/Vo l]Ordered By: Damien Hercules on 2022 Eosinophils (Bld) [#/Vol] 0.3 10*3/uL 0.0-0.45 [facility] Eosinophils/100 WBC Auto (Bl d)Ordered By: Damien Hercules on 2022 Eosinophils/100 WBC (Bld) 2.9 % . [facility] Erythrocyte distribution wid th Auto (RBC) [Ratio]Ordered By: Damien Hercules on 2022 Erythrocyte distribution width (RBC) [Ratio] 14.8 % 12.0-14.8 [facility] Glucose Poct Glucometerson 1 Glucose [Mass/Vol] 193 mg/dL Normal [facility] Comment on above: Result Comment: [facility] [place] Glucose Reference Range is dependent on time and content of last meal. Glucose of more than 200 mg/dL in a nonstressed, ambulatory subject supports the diagnosis of Diabetes Mellitus. PERFORMED BY: [place] [address] PATHOLOGIST SYSTEMS PROGRAM MANAGER ROSCOE CASTRO M.D. Performed By: #### C BC, BMP, BNP, HS TROP, CK #### [address] Glucose [Mass/Vol] 219 mg/dL Normal [facility] Comment on above: Result Comment: [facility] [place] Glucose Reference Range is dependent on time and content of last meal. Glucose of more than 200 mg/dL in a nonstressed, ambulatory subject supports the diagnosis of Diabetes Mellitus. PERFORMED BY: [place] [address] PATHOLOGIST SYSTEMS PROGRAM MANAGER ROSCOE CASTRO M.D. Performed By: #### C BC, BMP, BNP, HS TROP, CK #### [address] Glucose [Mass/Vol] 388 mg/dL Normal [facility] Comment on above: Result Comment: [facility] [place] Glucose Reference Range is dependent on time and content of last meal. Glucose of more than 200 mg/dL in a nonstressed, ambulatory subject supports the diagnosis of Diabetes Mellitus. PERFORMED BY: [facility] [address] [place] [address] PATHOLOGIST SYSTEMS PROGRAM MANAGER ROSCOE CASTRO M.D. Performed By: #### C BC, BMP, BNP, HS TROP, CK #### [facility] [address] Commemt1 Glu2: Cleaned Meter Normal [facility] Comment on above: Result Comment: PERF ORMED BY: [facility] [address] [place] [address] PATHOLOGIST SYSTEMS PROGRAM MANAGER ROSCOE CASTRO M.D. Performed By: #### G LULS #### Point of Care testing , Glucose [Mass/Vol] 250 mg/dL Normal [facility] Comment on above: Result Comment: [place] Glucose Reference Range is dependent on time and content of last meal. Glucose of more than 200 mg/dL in a nonstressed, ambulatory subject supports the diagnosis of Diabetes Mellitus. Performed By: #### G LULS #### Point of Care testing , Glucose [Mass/volume] in Ser um or PlasmaOrdered By: Damien Hercules on 2022 Glucose [Mass/Vol] 170 mg/dL 70-100 [facility] Comment on above: ADA recommended refe rence rangeRandom Glucose Reference Range is dependent on time and content of last meal. Glucose of more than 200 mg/dL in a nonstressed, ambulatory subject supports the diagnosis of Diabetes Mellitus. Hematocrit Auto (Bld) [Volum e fraction]Ordered By: Damien Hercules on 2022 Hematocrit (Bld) [Volume fraction] 43.8 % 38.8-50.0 [facility] Hemoglobin [Mass/volume] in BloodOrdered By: aDmien Hercules on 2022 Hemoglobin (Bld) [Mass/Vol] 15.0 g/dL 13.0-17.0 [facility] INR in Platelet poor plasma by Coagulation assayOrdered By: Damien Hercules on 2022 INR Coag (PPP) [Relative time] 1.0 {INR} [facility] Comment on above: INR Therapeutic Rang e A) Pre- and Peroperative OAT started two weeks before surgery. NOT HIP SURGERY: 1.5 - 2.5 HIP SURGERY: 2 - 3B) Primary and secondary prevention of venous THROMBOSIS: 2 - 3C) Active venous thrombosis, pulmonary embolismand prevention of recurrent venous thrombosis: 2 - 3D) Prevention of arterial thromboembolismincluding patients with mechanical heart valves: 3 - 4.5 Leukocytes [#/volume] correc susan for nucleated erythrocytes in Blood by Automated counOrdered By: Damien Hercules on 2022 WBC corrected for nucl RBC Auto (Bld) [#/Vol] 9.2 10*3/uL 4.1-10.5 [facility] Lipid Panelon 2022 Cholesterol [Mass/Vol] 143 mg/dL Normal 140-200 [facility] Comment on above: Order Comment: Comme nt add Result Comment: Chol less than 200 mg/dl low risk Chol 201-239 mg/dl borderline risk Chol 240 mg/dl and greater high risk Performed By: #### C BC, BMP, BNP, HS TROP, CK #### [facility] [address] Cholesterol in HDL [Mass/Vol] 29 mg/dL Normal 23-92 [facility] Comment on above: Order Comment: Comme nt add Result Comment: HDL CHOL ATP-III CLASSIFICATION Cardiovascular Risk HDL > or equal to 60 mg/dL LOW HDL < 40 mg/dL HIGH Performed By: #### C BC, BMP, BNP, HS TROP, CK #### [facility] [address] Cholesterol.total/Chol esterol in HDL [Mass ratio] 4.9 {ratio} Normal <5.0 [facility] Comment on above: Order Comment: Comme nt add Result Comment: PERF ORMED BY: [place] [address] PATHOLOGIST SYSTEMS PROGRAM MANAGER ROSCOE CASTRO M.D. Performed By: #### C BC, BMP, BNP, HS TROP, CK #### [facility] [address] LDL Cholesterol,Calculated 87 mg/dL Normal 0-100 [facility] Comment on above: Order Comment: Comme nt add Result Comment: LDL ATP III CLASSIFICATION LDL less than 100 mg/dL Optimal LDL 100-129 mg/dL Near or above optimal LDL 130-159 mg/dL Borderline high LDL 160-189 mg/dL High LDL greater than 189 mg/dL Very high Performed By: #### C BC, BMP, BNP, HS TROP, CK #### [facility] [address] Triglyceride w/Reflex 133 mg/dL Normal 0-149 [facility] Comment on above: Order Comment: Comme nt add Result Comment: TRIG ATP III CLASSIFICATION TRIG less than 150 mg/dL Normal TRIG 150-199 mg/dL Borderline high TRIG 200-500 mg/dL High TRIG greater than 500 mg/dL Very high Standard traceable to the Center for Disease Conrtrol and Prevention (CDC) test method. Performed By: #### C BC, BMP, BNP, HS TROP, CK #### [facility] [address] VLDL CHOLESTEROL 26 mg/dL Normal [facility] Comment on above: Order Comment: Comme nt add Performed By: #### C BC, BMP, BNP, HS TROP, CK #### [facility] [address] Lymphocytes Auto (Bld) [#/Vo l]Ordered By: Damien Hercules on 2022 Lymphocytes (Bld) [#/Vol] 1.8 10*3/uL 1.00-4.8 [facility] Lymphocytes/100 WBC Auto (Bl d)Ordered By: Damien Hercules on 2022 Lymphocytes/100 WBC (Bld) 19.7 % . [facility] MCH Auto (RBC) [Entitic mass ]Ordered By: Damien Hercules on 2022 MCH (RBC) [Entitic mass] 28.8 pg 27.5-35.2 [facility] MCHC Auto (RBC) [Mass/Vol]Or dered By: Damien Hercules on 2022 MCHC (RBC) [Mass/Vol] 34.3 g/dL 32.5-35.6 [facility] MCV Auto (RBC) [Entitic vol] Ordered By: Damien Hercules on 2022 MCV (RBC) [Entitic vol] 84.1 fL 83.5-101 [facility] Monocyte distribution width [Entitic volume] in Blood by AutomatedOrdered By: Damien Hercules on 2022 Monocyte distribution width Auto (Bld) [Entitic vol] 20.13 % 0.00-20.00 [facility] Comment on above: For adults in ED, MD W > 20.0 may be associated with a higher risk of sepsis during the first 12 hrs of hospital admission Monocytes Auto (Bld) [#/Vol] Ordered By: Damien Hercules on 2022 Monocytes (Bld) [#/Vol] 0.8 10*3/uL 0.0-0.8 [facility] Monocytes/100 WBC Auto (Bld) Ordered By: Damien Hercules on 2022 Monocytes/100 WBC (Bld) 9.2 % . [facility] Natriuretic peptide B [Mass/ Vol]Ordered By: Damien Hercules on 2022 Natriuretic peptide B (Bld) [Mass/Vol] 101.0 pg/mL 5-100 [facility] Neutrophils Auto (Bld) [#/Vo l]Ordered By: Damien Hercules on 2022 Neutrophils (Bld) [#/Vol] 6.2 10*3/uL 1.8-7.7 [facility] Neutrophils/100 WBC Auto (Bl d)Ordered By: Damien Hercules on 2022 Neutrophils/100 WBC (Bld) 67.2 % . [facility] No Panel InformationOrdered By: Damien Hercules on 2022 Estimated GFR (CKD-EPI) 58.037 mL/Min [facility] Creatinine Clearance (Chem 72.10 [facility] Nucleated erythrocytes [Pres ence] in Blood by Automated countOrdered By: Damien Hercules on 2022 Nucleated RBC Auto Ql (Bld) 0.1 /100{WBC} 0-0.5 [facility] Platelet mean volume Auto (B ld) [Entitic vol]Ordered By: Damien Hercules on 2022 Platelet mean volume (Bld) [Entitic vol] 7.7 fL 6.6-10.1 [facility] Platelets Auto (Bld) [#/Vol] Ordered By: Damien Hercules on 2022 Platelets (Bld) [#/Vol] 194 10*3/uL 150-450 [facility] Potassium [Moles/volume] in Serum or PlasmaOrdered By: Damien Hercules on 2022 Potassium [Moles/Vol] 3.6 mmol/L 3.5-5.1 [facility] Prothrombin time (PT)Ordered By: Damien Hercules on 2022 PT Coag (PPP) [Time] 12.4 s 9.0-12.9 [facility] Comment on above: A hematocrit value g reater than 55% may lead to inaccurate results in coagulation testing. Patients having hematocrit values >55% require a special collection tube for coagulation studies. Please contact the laboratory at [phone] for redraw instructions. RBC Auto (Bld) [#/Vol]Ordere d By: Damien Hercules on 2022 RBC (Bld) [#/Vol] 5.21 10*6/uL 3.90-5.60 [facility] Serum or plasma anion gap de terminationOrdered By: Damien Hercules on 2022 Anion gap [Moles/Vol] 10.4 mmol/L 6.0-15.0 [facility] Sodium [Moles/volume] in Ser um or PlasmaOrdered By: Damien Hercules on 2022 Sodium [Moles/Vol] 139 mmol/L 136-145 [facility] Troponin I High Sensitivityo n 2022 Troponin I High Sensitivity 10.1 pg/mL Normal 0.0-20.0 [facility] Comment on above: Result Comment: PERF ORMED BY: [address] [address] PATHOLOGIST SYSTEMS PROGRAM MANAGER ROSCOE CASTRO M.D. Performed By: #### H S TROP #### [address] Troponin I High Sensitivity 13.0 pg/mL Normal 0.0-20.0 [facility] Comment on above: Result Comment: PERF ORMED BY: [place] [address] PATHOLOGIST SYSTEMS PROGRAM MANAGER ROSCOE CASTRO M.D. Performed By: #### H S TROP #### [facility] [address] [place] [address] Troponin I High Sensitivity 15.8 pg/mL Normal 0.0-20.0 [facility] Comment on above: Result Comment: PERF ORMED BY: [place] [address] PATHOLOGIST SYSTEMS PROGRAM MANAGER ROSCOE CASTRO M.D. Performed By: #### C BC, BMP, BNP, HS TROP, CK #### [facility] [address] [place], [place] [id number] [facility] Troponin I.cardiac [Mass/vol ume] in Serum or Plasma by Detection limit <= 0.01 ng/Ordered By: Damien Hercules on 2022 Troponin I.cardiac DL <= 0.01 ng/mL [Mass/Vol] 15.8 pg/mL 0.0-20.0 [facility] Urea nitrogen [Mass/volume] in Serum or PlasmaOrdered By: Damien Hercules on 2022 Urea nitrogen [Mass/Vol] 14 mg/dL 7-25 [facility] WBC Auto (Bld) [#/Vol]Ordere d By: Damien Hercules on 2022 WBC (Bld) [#/Vol] 9.2 10*3/uL 4.1-10.5 [facility] XR chest 2V*on 2022 XR chest 2V* [facility] [place] [address] [place], [place] [id number] XRay Report Signed Patient: Clarence Flores MR#: [id number] : 1960 Acct:[id number] Age/Sex: 62 / M ADM Date: 11/10/22 Loc: Room: 9V9073-9 Type: ADM INOo Attending Dr: Maura Venegas MD Copies to: DO Maura Eckert MD Ordering Provider: Damien Hercules DO Date of Service: 11/10/22 XR/XR chest 2V*: Shortness of Breath/Dyspnea Chest 2 views CLINICAL HISTORY: Shortness of breath after walking dominant features. COMPARISON: None FINDINGS: Cardiomegaly with mild vascular congestion. No consolidation pneumothorax pleural effusion or free air. XR/XR chest 2V* IMPRESSION: CARDIOMEGALY WITH MILD VASCULAR CONGESTION SUGGESTIVE OF UNDERLYING CHF. NO CONSOLIDATION TO SUGGEST PNEUMONIA. Impression dictated by: Ruel Oreilly Jr., D.O.11/10/2022 10:13 AM Dictation Location: [place] [address] Transcribed By: [facility] 11/10/22 1013 Dictated By: Ruel Oreilly Jr, DO 11/10/22 1012 Signed By: 11/10/[address] [facility] CBC AUTO DIFFon 11-24-2021 BASO # 0.0 103/ul Normal 0.0-0.1 [facility] Comment on above: Performed By: #### C BC #### [facility] [address] [address] [address] Sunny Ortez Basophils/100 WBC (Bld) 0.5 % Normal 0.2-2.0 [facility] Comment on above: Performed By: #### C BC #### [facility] [address] [place] [address] [address] Sunny Ortez EO # 0.4 103/ul Normal 0.0-0.7 [facility] Comment on above: Performed By: #### C BC #### [facility] [address] [place] [address] [address] Sunny Ortez Eosinophils/100 WBC (Bld) 4.6 % Normal 0.9-7.0 [facility] Comment on above: Performed By: #### C BC #### [facility] [address] [address] [address] Sunny Ortez Erythrocyte distribution width (RBC) [Ratio] 14.2 % Normal 11.0-15.0 [facility] Comment on above: Performed By: #### C BC #### [facility] [address] [place] [address] Dr. Sunny Ortez Hematocrit (Bld) [Volume fraction] 45.8 % Normal 42.0-54.0 [facility] Comment on above: Performed By: #### C BC #### [facility] [address] [place] [address] Dr. Sunny Ortez Hemoglobin (Bld) [Mass/Vol] 15.1 g/dL Normal 14.0-18.0 [facility] Comment on above: Performed By: #### C BC #### [place] [facility] [address] [place] [address] Dr. Sunny Ortez IG # 0.02 10e3/ul Normal 0.00-0.03 [facility] Comment on above: Performed By: #### C BC #### [facility] [address] [place] [address] Dr. Sunny Ortez IG % 0.2 % Normal 0.0-0.5 [facility] Comment on above: Performed By: #### C BC #### [facility] [address] [place] [address] Dr. Sunny Ortez LYMPH # 1.7 103/ul Normal 1.2-3.8 [facility] Comment on above: Performed By: #### C BC #### [facility] [address] [place] [address] Dr. Sunny Ortez Lymphocytes/100 WBC (Bld) 20.2 % Critically low 20.5-60.0 [facility] Comment on above: Performed By: #### C BC #### [facility] [address] [place] [address] Dr. Sunny Ortez MANUAL DIFF REQ NO Normal [facility] Comment on above: Performed By: #### C BC #### [facility] [address] [place] [address] Dr. Sunny Ortez MCH (RBC) [Entitic mass] 27.7 pg Normal 25.9-34.0 [facility] Comment on above: Performed By: #### C BC #### [facility] [address] [address] [address] Sunny Ortez MCHC (RBC) [Mass/Vol] 33.0 g/dL Normal 29.9-35.2 [facility] Comment on above: Performed By: #### C BC #### [facility] [address] [address] [address] Sunny Ortez MCV (RBC) [Entitic vol] 83.9 fL Normal 80.0-94.0 [facility] Comment on above: Performed By: #### C BC #### [facility] [address] [address] [address] Sunny Ortez MONO # 0.7 103/ul Normal 0.3-0.8 [facility] Comment on above: Performed By: #### C BC #### [facility] [address] [place] [address] Dr. Sunny Ortez Monocytes/100 WBC (Bld) 8.0 % Normal 1.7-12.0 [facility] Comment on above: Performed By: #### C BC #### [facility] [address] [address] [address] Sunny Ortez NEUT # 5.6 103/ul Normal 1.4-6.5 [facility] Comment on above: Performed By: #### C BC #### [facility] [address] [address] [address] Sunny Ortez Neutrophils/100 WBC (Bld) 66.5 % Normal 43.0-75.0 [facility] Comment on above: Performed By: #### C BC #### [facility] [address] [address] [address] Sunny Ortez Platelet mean volume (Bld) [Entitic vol] 9.1 fL Critically low 9.5-13.5 [facility] Comment on above: Performed By: #### C BC #### [facility] [address] [address] [address] Sunny Ortez PLT 215 103/ul Normal 150-450 [facility] Comment on above: Performed By: #### C BC #### [facility] [address] [address] [address] Sunny Ortez RBC 5.46 106/ul Normal 4.70-6.10 [facility] Comment on above: Performed By: #### C BC #### [facility] [address] [place] [address] Dr. Sunny Ortez WBC 8.4 103/ul Normal 4.0-11.0 [facility] Comment on above: Performed By: #### C BC #### [facility] [address] [place] [address] Dr. Sunny Ortez GLYCOHEMOGLOBIN A1Con 2021 ADA RECOMMENDATION SEE BELOW Normal [facility] Comment on above: Result Comment: ADA RECOMMENDED LIMIT 4.0 - 6.0 ADA THERAPEUTIC TARGET < 7.0 ACTION SUGGESTED > 7.0 Performed By: #### A 1C #### [facility] [address] [place] [address] Dr. Sunny Ortez Glucose [Mass/Vol] 117 mg/dL Normal [facility] Comment on above: Performed By: #### A 1C #### [facility] [address] [place] [address] Dr. Sunny Ortez HbA1c (Bld) [Mass fraction] 5.7 % Normal 4.5-6.2 [facility] Comment on above: Performed By: #### A 1C #### [facility] [address] [place] [address] Dr. Sunny Ortez PROF 14(COMP METB)on 022 Albumin [Mass/Vol] 3.7 g/dL Normal 3.4-5.0 [facility] Comment on above: Performed By: #### C MP #### [facility] [address] [place] [address] Dr. Sunny Ortez Albumin/Globulin [Mass ratio] 1.0 {ratio} Normal [facility] Comment on above: Performed By: #### C MP #### [facility] [address] [place] [address] Dr. Sunny Ortez ALP [Catalytic activity/Vol] 61 U/L Normal 46-116 [facility] Comment on above: Performed By: #### C MP #### [facility] [address] [address] [address] Sunny Ortez ALT [Catalytic activity/Vol] 42 U/L Normal 16-63 [facility] Comment on above: Performed By: #### C MP #### [facility] [address] [address] [address] Sunny Ortez Anion gap [Moles/Vol] 8.1 mmol/L Normal [facility] Comment on above: Performed By: #### C MP #### [facility] [address] [address] [address] Sunny Ortez AST [Catalytic activity/Vol] 28 U/L Normal 15-37 [facility] Comment on above: Performed By: #### C MP #### [facility] [address] [place] [address] Dr. Sunny Ortez Bilirubin [Mass/Vol] 0.5 mg/dL Normal 0.2-1.0 [facility] Comment on above: Performed By: #### C MP #### [facility] [address] [place] [address] Dr. Sunny Ortez Calcium [Mass/Vol] 8.7 mg/dL Normal 8.5-10.1 [facility] Comment on above: Performed By: #### C MP #### [facility] [address] [place] [address] Dr. Sunny Ortez Chloride [Moles/Vol] 107 mmol/L Normal 98-107 [facility] Comment on above: Performed By: #### C MP #### [facility] [address] [place] [address] Dr. Sunny Ortez CO2 [Moles/Vol] 30.0 mmol/L Normal 21.0-32.0 [facility] Comment on above: Performed By: #### C MP #### [facility] [address] [place] [address] Dr. Sunny Ortez Creatinine [Mass/Vol] 1.29 mg/dL Normal 0.70-1.30 [facility] Comment on above: Performed By: #### C MP #### [facility] [address] [address] [address] Sunny Ortez EGFR-AF GREEK >60 Normal >=60 [facility] Comment on above: Performed By: #### C MP #### [facility] [address] [address] [address] Sunny Ortez EGFR-NON AF GREEK 57 mL/min/1.73m2 Critically low >=60 [facility] Comment on above: Performed By: #### C MP #### [facility] [address] [address] [address] Sunny Ortez Globulin (S) [Mass/Vol] 3.7 g/dL Normal [facility] Comment on above: Performed By: #### C MP #### [facility] [address] [address] [address] Sunny Ortez Glucose [Mass/Vol] 108 mg/dL Critically high 74-106 [facility] Comment on above: Performed By: #### C MP #### [facility] [address] [address] [address] Sunny Ortez Potassium [Moles/Vol] 4.1 mmol/L Normal 3.5-5.1 [facility] Comment on above: Performed By: #### C MP #### [facility] [address] [place] [address] Dr. Sunny Ortez Protein [Mass/Vol] 7.4 g/dL Normal 6.4-8.2 [facility] Comment on above: Performed By: #### C MP #### [facility] [address] [address] [address] Sunny Ortez Sodium [Moles/Vol] 141 mmol/L Normal 136-145 [facility] Comment on above: Performed By: #### C MP #### [facility] [address] [address] [address] Sunny Ortez Urea nitrogen [Mass/Vol] 16.0 mg/dL Normal 7.0-18.0 [facility] Comment on above: Performed By: #### C MP #### [facility] [address] [address] [address] Sunny Ortez Urea nitrogen/Creatinine [Mass ratio] 12.4 mg/mg Normal [facility] Comment on above: Performed By: #### C MP #### [facility] [address] [place] [address] Dr. Sunny Ortez OCC BLD IMMUNO SCREENon 10-12 OCCULT BLOOD Negative Normal NEGATIVE [facility] Comment on above: Performed By: #### O BSCRN #### [facility] [address] [place] [address] Dr. Sunny Ortez Covid-19 PCR ([facility])on 10-12 SARS-CoV-2 (COVID-19) RNA RENÉE+probe Ql (Unsp spec) Not detected Normal NOT DETECTED [facility] Comment on above: Result Comment: When diagnostic testing is negative, the possibility of a false negative should be considered in the context of a patient's recent exposures and the presence of clinical signs and symptoms consistent with SARS-CoV-2. This test is not yet approved or cleared by the [place] FDA. When there are no FDA-approved or cleared tests available, and other criteria are met, FDA can make tests available under an emergency access mechanism called an Emergency Use Authorization (EUA). The EUA for this test is supported by the Home Supervisor of Health and Human Service's declaration that circumstances exist to justify the emergency use of in vitro diagnostics for the detection and/or diagnosis of the virus that causes COVID-19. This EUA will remain in effect for the duration of the COVID-19 declaration justifying emergency of IVDs, unless it is terminated or revoked by the FDA (after which the test may no longer be used). Performed By: #### C MP #### [facility] [address] [place], [place] [id number] Dr. Sunny Ortez MRI ABDOMEN W CONon 05-07-19 22 MRI ABDOMEN W CON EXAMINATION: MRI ABD OMEN W CON HISTORY: Renal cell carcinoma of bilateral kidneys COMPARISON: No relevant comparison available. TECHNIQUE: A comprehensive examination was performed utilizing a variety of imaging planes and imaging parameters to optimize visualization of suspected pathology. Images were obtained both before and after intravenous Dotarem infusion. FINDINGS: LIVER: No enlargement, atrophy, abnormal density, or significant focal lesion. BILIARY: No visible dilatation or calcification. PANCREAS: No lesion, fluid collection, ductal dilatation, or atrophy. SPLEEN: No enlargement or focal lesion. KIDNEYS: Slight contour variation on the inferior anterior margin of the left kidney consistent with prior tumor resection. Stable small hemorrhagic cyst. ADRENALS: No mass or enlargement. AORTA/VASCULAR: No aneurysm or dissection. RETROPERITONEUM: No mass or adenopathy. BOWEL/MESENTERY: No visible mass, obstruction, or bowel wall thickening. ABDOMINAL WALL: No mass or hernia. BONES: No bony lesion or fracture. OTHER: Negative. IMPRESSION: 1. Postsurgical changes of left kidney. No appreciable mass or findings to suggest recurrent/metastatic disease. Continued follow-up is recommended. Electronically authenticated by: ELVIN JENKINS Date: 2021-05-06 07:49 Normal [facility] CREATININEon 05-04-2021 Creatinine [Mass/Vol] 1.37 mg/dL Critically high 0.66-1.25 [facility] Comment on above: Performed By: #### C ALISHA #### [facility] [address] [place] [address] Dr. Sunny Ortez EGFR-AF GREEK >60 Normal >=60 [facility] Comment on above: Performed By: #### C ALISHA #### [facility] [address] [place] [address] Dr. Sunny Ortez EGFR-NON AF GREEK 53 mL/min/1.73m2 Critically low >=60 [facility] Comment on above: Performed By: #### C ALISHA #### [facility] [address] [place] [address] Dr. Sunny Ortez CREATININEon 04-12-2021 Creatinine [Mass/Vol] 1.28 mg/dL Critically high 0.66-1.25 [facility] Comment on above: Performed By: #### C ALISHA #### [facility] [address] [place] [address] Dr. Sunny Ortez EGFR-AF GREEK >60 Normal >=60 [facility] Comment on above: Performed By: #### C ALISHA #### [facility] [address] [place] [address] Dr. Sunny Ortez EGFR-NON AF GREEK 58 mL/min/1.73m2 Critically low >=60 [facility] Comment on above: Performed By: #### C ALISHA #### [facility] [address] [address] [address] Sunny Ortez MRI ABDOMEN WO CONon 022 MRI ABDOMEN WO CON EXAMINATION: MRI ABD OMEN WO CON HISTORY: Primary malignant neoplasm of kidney COMPARISON: CT scan 03/27/2021 TECHNIQUE: A comprehensive MRI examination of the abdomen was performed to optimize visualization of suspected pathology. No contrast administered. 5 attempts were made at IV access which were unsuccessful. The patient declined further attempts. FINDINGS: LIVER: Visualized portions demonstrate no abnormality BILIARY: No visible dilatation or calcification. PANCREAS: No lesion, fluid collection, ductal dilatation, or atrophy. SPLEEN: There is less portions demonstrate no abnormality KIDNEYS: Normal right. Contour deformity inferior anterior left kidney, consistent with prior nephrectomy. Area of fluid signal medial right kidney measuring 1.7 x 1.2 cm best seen on axial images 17 ADRENALS: No mass or enlargement. AORTA/VASCULAR: No aneurysm or dissection. RETROPERITONEUM: No mass or adenopathy. BOWEL/MESENTERY: Colonic diverticulosis. Nonobstructive bowel gas pattern IMPRESSION: Limited noncontrast exam, IV access could not be obtained Contour deformity inferior anterior left kidney, postsurgical changes are favored from partial nephrectomy Electronically authenticated by: STEVE COLLADO Date: 2021-04-12 14:39 Normal [facility] CT ABD/PELV W CONon 03-28-[address] ABD/PELV W CON Begin Addendum # 1 The findings should read: There is heterogeneous appearance of the anterior lower pole of the left kidney axial image 62 Original Report EXAMINATION: CT ABD/PELV W CON, 03/27/2021 2:06 PM EST HISTORY: Primary malignant neoplasm of left kidney COMPARISON: 11/05/2018 TECHNIQUE: CT scan of the abdomen and pelvis was performed with IV contrast. CT dose reduction technique was used, including Automated Exposure Control. FINDINGS: LUNG BASES: No visible pulmonary or pleural disease. LIVER: Diffuse hypoattenuation suggesting hepatic steatosis. No focal mass BILIARY: Cholelithiasis without CT evidence of acute cholecystitis PANCREAS: No lesion, fluid collection, ductal dilatation, or atrophy. SPLEEN: No enlargement or focal lesion. ADRENALS: No mass or enlargement. KIDNEYS: Normal right kidney. No hydronephrosis. Left partial nephrectomy. There is heterogeneous appearance of the anterior lower pole of the right kidney axial image 62, nonspecific possibly related to treatment. As there no interval scans, multifocal recurrence is not entirely excluded BOWEL/MESENTERY: Moderate colonic diverticulosis. Nonobstructive bowel gas pattern. Normal appendix. AORTA/VASCULAR: No aortic aneurysm. Moderate atherosclerosis. RETROPERITONEUM: No mass or adenopathy. LYMPH NODES: No adenopathy. URINARY BLADDER: Minimal distention of the urinary bladder. Urinary bladder wall measures 11 mm with mild surrounding inflammatory changes PELVIC ORGANS: The prostate gland is mildly enlarged measuring 5 cm with central calcifications ABDOMINAL WALL: Supraumbilical ventral hernia containing mesenteric fat with small amount of stranding, measuring 3.5 cm BONES: No bony lesion or fracture. Moderate diffuse degenerative changes OTHER: Negative. IMPRESSION: Interval left partial nephrectomy. Heterogeneous appearance of the anterior lower pole of the left kidney likely represents post treatment changes. Local recurrence is not excluded as there is no prior postsurgical comparison Hepatic steatosis Urinary bladder wall thickening with surrounding mild inflammatory changes. Consider cystitis Normal [facility] INSULINon 03-26-2021 Insulin 30.7 uIU/mL Critically high 2.6-24.9 [facility] Comment on above: Performed By: #### I NSULIN #### [facility] [address] [address] [address] Sunny Ortez XR KNEE LT 4V or >on 022 XR KNEE LT 4V or > EXAM: XR KNEE LT 4V or > HISTORY: Bilateral knee pain COMPARISON: None. TECHNIQUE: 4 views FINDINGS: Relative maintenance of the tricompartmental joint spaces. Small osteophytes off the articular surfaces and tibial spines. No fracture, dislocation or subluxation. No knee effusion. IMPRESSION: Mild age-related changes with no acute abnormality Electronically authenticated by: STEVE PALACIOS Date: 2021-03-25 17:14 Normal [facility] BNPon 03-24-2021 Natriuretic peptide B (Bld) [Mass/Vol] 202.0 pg/mL Normal <=900.0 [facility] Comment on above: Performed By: #### C MP #### [facility] [address] [address] [address] Sunny Ortez CBC AUTO DIFFon 03-24-2021 BASO # 0.1 103/ul Normal 0.0-0.1 [facility] Comment on above: Performed By: #### C BC #### [facility] [address] [place] [address] Dr. Sunny Ortez Basophils/100 WBC (Bld) 0.8 % Normal 0.2-2.0 [facility] Comment on above: Performed By: #### C BC #### [facility] [address] [place] [address] Dr. Sunny rOtez EO # 0.5 103/ul Normal 0.0-0.7 [facility] Comment on above: Performed By: #### C BC #### [facility] [address] [place] [address] Dr. Sunny Ortez Eosinophils/100 WBC (Bld) 4.6 % Normal 0.9-7.0 [facility] Comment on above: Performed By: #### C BC #### [facility] [address] [place] [address] Dr. Sunny Ortez Erythrocyte distribution width (RBC) [Ratio] 13.6 % Normal 11.0-15.0 [facility] Comment on above: Performed By: #### C BC #### [facility] [address] [place] [address] Dr. Sunny Ortez Hematocrit (Bld) [Volume fraction] 45.6 % Normal 42.0-54.0 [facility] Comment on above: Performed By: #### C BC #### [facility] [address] [place] [address] Dr. Sunny Ortez Hemoglobin (Bld) [Mass/Vol] 15.2 g/dL Normal 14.0-18.0 [facility] Comment on above: Performed By: #### C BC #### [facility] [address] [place] [address] Dr. Sunny Ortze IG # 0.04 10e3/ul Critically high 0.00-0.03 [facility] Comment on above: Performed By: #### C BC #### [facility] [address] [place] [address] Dr. Sunny Ortez IG % 0.4 % Normal 0.0-0.5 [facility] Comment on above: Performed By: #### C BC #### [facility] [address] [place] [address] Dr. Sunny Ortez LYMPH # 1.9 103/ul Normal 1.2-3.8 [facility] Comment on above: Performed By: #### C BC #### [facility] [address] [place] [address] Dr. Sunny Ortez Lymphocytes/100 WBC (Bld) 18.4 % Critically low 20.5-60.0 [facility] Comment on above: Performed By: #### C BC #### [facility] [address] [place] [address] Dr. Sunny Ortez MANUAL DIFF REQ NO Normal [facility] Comment on above: Performed By: #### C BC #### [facility] [address] [place] [address] Dr. Sunny Ortez MCH (RBC) [Entitic mass] 27.9 pg Normal 25.9-34.0 [facility] Comment on above: Performed By: #### C BC #### [facility] [address] [place] [address] Dr. Sunny Ortez MCHC (RBC) [Mass/Vol] 33.3 g/dL Normal 29.9-35.2 [facility] Comment on above: Performed By: #### C BC #### [facility] [address] [place] [address] Dr. Sunny Ortez MCV (RBC) [Entitic vol] 83.7 fL Normal 80.0-94.0 [facility] Comment on above: Performed By: #### C BC #### [facility] [address] [place] [address] Dr. Sunny Ortez MONO # 0.8 103/ul Normal 0.3-0.8 [facility] Comment on above: Performed By: #### C BC #### [facility] [address] [place] [address] Dr. Sunny Ortez Monocytes/100 WBC (Bld) 8.0 % Normal 1.7-12.0 [facility] Comment on above: Performed By: #### C BC #### [facility] [address] [place] [address] Dr. Sunny Ortez NEUT # 7.0 103/ul Critically high 1.4-6.5 [facility] Comment on above: Performed By: #### C BC #### [facility] [address] [place] [address] Dr. Sunny Ortez Neutrophils/100 WBC (Bld) 67.8 % Normal 43.0-75.0 [facility] Comment on above: Performed By: #### C BC #### [facility] [address] [place] [address] Dr. Sunny Ortez Platelet mean volume (Bld) [Entitic vol] 9.5 fL Normal 9.5-13.5 [facility] Comment on above: Performed By: #### C BC #### [facility] [address] [place] [address] Dr. Sunny Ortez PLT 322 103/ul Normal 150-450 [facility] Comment on above: Performed By: #### C BC #### [facility] [address] [place] [address] Dr. Sunny Ortez RBC 5.45 106/ul Normal 4.70-6.10 [facility] Comment on above: Performed By: #### C BC #### [facility] [address] [place] [address] Dr. Sunny Ortez WBC 10.4 103/ul Normal 4.0-11.0 [facility] Comment on above: Performed By: #### C BC #### [facility] [address] [place] [address] Dr. Sunny Ortez FREE THYROXINE INDEX T7on FTI 3.01 Normal [facility] Comment on above: Performed By: #### C MP #### [facility] [address] [place] [address] Dr. Sunny Ortez T3U 35.0 % Normal 23.5-40.5 [facility] Comment on above: Performed By: #### C MP #### [facility] [address] [place] [address] Dr. Sunny Ortez T4 [Mass/Vol] 8.60 ug/dL Normal 5.53-11.00 [facility] Comment on above: Performed By: #### C MP #### [facility] [address] [address] [address] Sunny Ortez GLYCOHEMOGLOBIN A1Con 2021 ADA RECOMMENDATION ADA THERAPEUTIC TARG ET 6.0 - 7.0 ACTION SUGGESTED > 7.0 Normal [facility] Comment on above: Performed By: #### A 1C #### [facility] [address] [address] [address] Sunny Ortez Glucose [Mass/Vol] 197 mg/dL Normal [facility] Comment on above: Performed By: #### A 1C #### [facility] [address] [place] [address] Dr. Sunny Ortez HbA1c (Bld) [Mass fraction] 8.5 % Critically high <=6.0 [facility] Comment on above: Performed By: #### A 1C #### [facility] [address] [place] [address] Dr. Sunny Ortez LIPID PROFILEon 03-24-2021 CHOL-HDL RATIO NORM SEE BELOW Normal [facility] Comment on above: Result Comment: 3.3 - 4.4 LOW RISK 4.4 - 7.1 AVERAGE RISK 7.1 - 11.0 MODERATE RISK >11.0 HIGH RISK Performed By: #### C MP #### [facility] [address] [place] [address] Dr. Sunny Ortez Cholesterol [Mass/Vol] 150 mg/dL Normal <=200 [facility] Comment on above: Performed By: #### C MP #### [facility] [address] [place] [address] Dr. Sunny Ortez Cholesterol in HDL [Mass/Vol] 30 mg/dL Normal [facility] Comment on above: Performed By: #### C MP #### [facility] [address] [place] [address] Dr. Sunny Ortez Cholesterol in LDL [Mass/Vol] 96.8 mg/dL Normal [facility] Comment on above: Performed By: #### C MP #### [facility] [address] [place] [address] Dr. Sunny Ortez Cholesterol.total/Chol esterol in HDL [Mass ratio] 5.0 {ratio} Normal [facility] Comment on above: Performed By: #### C MP #### [facility] [address] [place] [address] Dr. Sunny Ortez HDL NORMAL > or = 60 mg/dl - LO W CARDIOVASCULAR RISK <40 mg/dl - HIGH CARDIOVASCULAR RISK Normal [facility] Comment on above: Performed By: #### C MP #### [facility] [address] [place] [address] Dr. Sunny Ortez LDL CALC NORMAL SEE BELOW Normal [facility] Comment on above: Result Comment: <100 mg/dl OPTIMAL 100 - 129 mg/dl NEAR OR ABOVE OPTIMAL 130 - 159 mg/dl BORDERLINE HIGH 160 - 189 mg/dl HIGH >190 mg/dl VERY HIGH Performed By: #### C MP #### [facility] [address] [place] [address] Dr. Sunny Ortez Triglyceride [Mass/Vol] 116 mg/dL Normal <=150 [facility] Comment on above: Performed By: #### C MP #### [facility] [address] [place] [address] Dr. Sunny Ortez VLDL CALC 23.2 mg/dL Normal [facility] Comment on above: Performed By: #### C MP #### [facility] [address] [place] [address] Dr. Sunny Ortez PROF 14(COMP METB)on 022 Albumin [Mass/Vol] 3.5 g/dL Normal 3.5-5.0 [facility] Comment on above: Performed By: #### C MP #### [facility] [address] [place] [address] Dr. uSnny Ortez Albumin/Globulin [Mass ratio] 1.0 {ratio} Normal [facility] Comment on above: Performed By: #### C MP #### [facility] [address] [place] [address] Dr. Sunny Ortez ALP [Catalytic activity/Vol] 73 U/L Normal 38-126 [facility] Comment on above: Performed By: #### C MP #### [facility] [address] [place] [address] Dr. Sunny Ortez ALT [Catalytic activity/Vol] 28 U/L Normal 21-72 [facility] Comment on above: Performed By: #### C MP #### [facility] [address] [place] [address] Dr. Sunny Ortez Anion gap [Moles/Vol] 14.7 mmol/L Normal [facility] Comment on above: Performed By: #### C MP #### [facility] [address] [place] [address] Dr. Sunny Ortez AST [Catalytic activity/Vol] 13 U/L Critically low 17-59 [facility] Comment on above: Performed By: #### C MP #### [facility] [address] [place] [address] Dr. Sunny Ortez Bilirubin [Mass/Vol] 0.7 mg/dL Normal 0.2-1.3 [facility] Comment on above: Performed By: #### C MP #### [facility] [address] [place] [address] Dr. Sunny Ortez Calcium [Mass/Vol] 8.6 mg/dL Normal 8.4-10.2 [facility] Comment on above: Performed By: #### C MP #### [facility] [address] [place] [address] Dr. Sunny Ortez Chloride [Moles/Vol] 105 mmol/L Normal 98-107 [facility] Comment on above: Performed By: #### C MP #### [facility] [address] [place] [address] Dr. Sunny Ortez CO2 [Moles/Vol] 23.6 mmol/L Normal 22.0-30.0 [facility] Comment on above: Performed By: #### C MP #### [facility] [address] [place] [address] Dr. Sunny Ortez Creatinine [Mass/Vol] 1.33 mg/dL Critically high 0.66-1.25 [facility] Comment on above: Performed By: #### C MP #### [facility] [address] [address] [address] Sunny Ortez EGFR-AF GREEK >60 Normal >=60 [facility] Comment on above: Performed By: #### C MP #### [facility] [address] [address] [address] Sunny Ortez EGFR-NON AF GREEK 55 mL/min/1.73m2 Critically low >=60 [facility] Comment on above: Performed By: #### C MP #### [facility] [address] [address] [address] Sunny Ortez Globulin (S) [Mass/Vol] 3.6 g/dL Normal [facility] Comment on above: Performed By: #### C MP #### [facility] [address] [address] [address] Sunny Ortez Glucose [Mass/Vol] 253 mg/dL Critically high 74-106 [facility] Comment on above: Performed By: #### C MP #### [facility] [address] [address] [address] Sunny Ortez Potassium [Moles/Vol] 4.3 mmol/L Normal 3.4-5.0 [facility] Comment on above: Performed By: #### C MP #### [facility] [address] [address] [address] Sunny Ortez Protein [Mass/Vol] 7.1 g/dL Normal 6.1-8.2 [facility] Comment on above: Performed By: #### C MP #### [facility] [address] [address] [address] Sunny Ortez Sodium [Moles/Vol] 139 mmol/L Normal 137-145 [facility] Comment on above: Performed By: #### C MP #### [facility] [address] [address] [address] Sunny Ortez Urea nitrogen [Mass/Vol] 18.0 mg/dL Normal 9.0-20.0 [facility] Comment on above: Performed By: #### C MP #### [facility] [address] [address] [address] Sunny Ortez Urea nitrogen/Creatinine [Mass ratio] 13.5 mg/mg Normal [facility] Comment on above: Performed By: #### C MP #### [facility] [address] [address] [address] Sunny Ortez TSHon 03-24-2021 TSH 1.335 uIU/mL Normal 0.470-4.68 0 [facility] Comment on above: Performed By: #### C MP #### [facility] [address] [address] [address] Sunny Ortez TSH RANGE SEE BELOW Normal [facility] Comment on above: Result Comment: <0.3 4 UIU/ml HYPERTHYROID 0.34-5.60 UIU/ml EUTHYROID >5.60 UIU/ml HYPOTHYROID Performed By: #### C MP #### [facility] [address] [address] [address] Sunny Ortez URIC ACID SERUMon 03-24-2021 Urate [Mass/Vol] 4.9 mg/dL Normal 3.5-8.5 [facility] Comment on above: Performed By: #### C MP #### [facility] [address] [address] [address] Sunny Ortez Basic Metabolic Panlon 06-20 Anion gap [Moles/Vol] 11 mmol/L Normal 9-18 [facility] Calcium [Mass/Vol] 8.9 mg/dL Normal 8.5-10.2 [facility] Chloride [Moles/Vol] 106 mmol/L High 97-105 [facility] CO2 [Moles/Vol] 22 mmol/L Normal 22-30 [facility] Creatinine [Mass/Vol] 1.28 mg/dL High 0.73-1.22 [facility] eGFR- Amer. >60 Normal [facility] GFR/1.73 sq M predicted among non-blacks MDRD (S/P/Bld) [Vol rate/Area] 58 . Normal [facility] Comment on above: Result Comment: eGFR (Estimated GFR) Units of measure: mL/min/1.73 meters squared eGFR is derived from the reexpressed MDRD Study equation using the following parameters: serum creatinine, age, gender and race. The creatinine assay has been calibrated to be traceable to IDMS. An eGFR <60 mL/min/1.73m2 for >3 months is consistent with chronic kidney disease. Refer to KDOQI guidelines for clinical interpretation. In patients with unstable renal function, e.g. those with acute kidney injury, the eGFR may not accurately reflect actual GFR. Glucose [Mass/Vol] 148 mg/dL High 74-99 [facility] Comment on above: Result Comment: The [place] Diabetes Association (ADA) provides guidance for cutoff values for fasting glucose and random glucose. The ADA defines fasting as no caloric intake for at least 8 hours. Fasting plasma glucose results between 100 to 125 mg/dL indicate increased risk for diabetes (prediabetes). Fasting plasma glucose results greater than or equal to 126 mg/dL meet the criteria for diagnosis of diabetes. In the absence of unequivocal hyperglycemia, results should be confirmed by repeat testing. In a patient with classic symptoms of hyperglycemia or hyperglycemic crisis, random plasma glucose results greater than or equal to 200 mg/dL meet the criteria for diagnosis of diabetes. Reference: Standards of Medical Care in Diabetes 2016, [place] [employer] Association. Diabetes Care. 2016.39(Suppl 1). Potassium [Moles/Vol] 4.5 mmol/L Normal 3.7-5.1 [facility] Sodium [Moles/Vol] 139 mmol/L Normal 136-144 [facility] Urea nitrogen [Mass/Vol] 10 mg/dL Normal 9-24 [facility] CNPNon 06-21-2019 CNPN Telephone (UROLMN) -- CLARENCE FLORES ([id number]) 1960 Date Time Provider Department 06/21/19 DECDIANE SALVADOR PA-C UROALDENN During your visit today, we recorded the following information about you: Diane Dillon PA-C 06/21/2019 2:[address] and CXR with no recurrence or mets. Repeat CT and CXR in 6M. Patient to schedule on his own at [facility] Dillon PA-C Pager [phone] Office [phone] Allergies As of Date: 06/21/2019 Noted Allergy Reaction NITROGLYCERIN 11/26/2018 14 - Other: See Comments Date Reviewed: 02/05/2019 Reviewed by: Diane Dillon - Fully Assessed Reason for Visit: Results [95] Primary Visit Diagnosis:Left renal mass [N28.89] Other Visit Diagnosis:Renal cell carcinoma of left kidney (HCC) [C64.2] Order(s):XR CHEST 2V FRONTAL/LAT [[id number]] Order #: [id number] FUTURE CT ABD/PEL W IVCON [[id number]] Order #: [id number] FUTURE iv contrast (will be provided with radiology test)CT ABD/PEL -Inject, intravenously, once for 1 dose.No IV access, insert saline lock prior to the beginning of sedation, infusion, injection of imaging exam. Discontinue saline lock post exam. If Pt. has a central line or IVAD, may access for administration according to line specific nursing protocol. Once exam is complete flush line and de-access according to line specific nursing protocol in the CT contrast administration guidelines link.Disp: 1 EachRfl: 0 enteric contrast (will be provided with radiology test)For CT ABD/PEL W IVCON Routine order Administer, As Directed One Time Only, via Oral, Rectal, both Oral and Rectal, Enteric Tube, Stoma or Indwelling Catheter, Enteric Contrast as designated per enteric contrast guidelinesDisp: 1 EachRfl: 0 Prescriptions as of 06/21/2019 Sig: IV CONTRAST (RADIOLOGY PROCED* CT ABD/PEL -Inject, intraveno* ENTERIC CONTRAST (RADIOLOGY P* For CT ABD/PEL W IVCON Routin* IV CONTRAST (RADIOLOGY PROCED* CT ABD/PEL -Inject, intraveno* ENTERIC CONTRAST (RADIOLOGY P* For CT ABD/PEL W IVCON Routin* DOCUSATE SODIUM 100 MG CAPSULE Take 1 capsule by mouth twice* Patient not taking: Reported on 02/05/2019 HYDRALAZINE 50 MG TABLET Take 1 tablet by mouth twice * METOPROLOL SUCCINATE ER 25 MG* Take 1 tablet by mouth twice * Problem List As Of Date 06/21/2019 Noted Resolved Left renal mass [N28.89] Renal neoplasm [D49.519] 12/22/2018 Prescriptions ordered this encounter Disp Refills Start End IV CONTRAST (RADIOLOGY PROCEDURE) 1 Ea* 0 06/21/2019 Class: In Office Sig: CT ABD/PEL -Inject, intravenously, once for 1 dose.No IV access, insert saline lock prior to the beginning of sedation, infusion, injection of imaging exam. Discontinue saline lock post exam. If Pt. has a central line or IVAD, may access for administration according to line specific nursing protocol. Once exam is complete flush line and de-access according to line specific nursing protocol in the CT contrast administration guidelines link. 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 MQ: CTAP_3 Contrast: IV: 150 ml of Omnipaque 300 Oral: 900 ml of 50ML Omnipaque [address] Radiation dose: Integrated Dose-length product (DLP) for this visit = 1296 mGy*cm. CT Dose Reduction Employed: Automated exposure control (AEC) COMPARISON: 10/05/2018 RESULT: Liver: No mass. Biliary: No bile duct dilation. Cholelithiasis. Spleen: No mass. Borderline enlarged measuring 12-13 cm in length, stable.. Pancreas: No mass or duct dilation. Adrenals: No mass. Kidneys: Interval postoperative changes of the left kidney compatible with a partial nephrectomy. 2 cm left renal cyst, stable. No evidence of hydronephrosis or suspicious enhancing renal mass. Renal veins are patent bilaterally. GI tract: No dilation or wall thickening. Sigmoid colon and left colon diverticulosis is noted without evidence of diverticulitis. Lymph nodes: Nonspecific portacaval lymphadenopathy (2:36) measuring 2.1 x 1.3 cm, stable. Mesentery/Peritoneum: No ascites or mass. Retroperitoneum: No mass. Vasculature: The celiac axis and SMA are patent. The portal vein and branches, splenic vein, SMV, and hepatic veins are patent. Arterial atherosclerotic disease without aneurysm. Pelvis: No mass, ascites or fluid collection. Urinary bladder is decompressed. Bones/Soft Tissues: Fat-containing supraumbilical hernias. No suspicious lytic or blastic osseous lesions. Lower thorax: No evidence of focal consolidation. IMPRESSION: 1. Interval postoperative changes compatible with a partial left nephrectomy. No evidence of a locally recurrent mass. 2. No evidence of metastases in the visualized abdomen. 3. Nonspecific portacaval lymphadenopathy, stable since 10/05/2018. 4. Fat-containing supraumbilical hernia. 5. Sigmoid colon and left colon diverticulosis without evidence of diverticulitis. Transcribe Date/Time: Jun 21 2019 11:38A Dictated by: LISA WEBER MD This examination was interpreted and the report reviewed and electronically signed by: LISA WEBER MD on Jun 21 2019 12:00PM EST Thank you for allowing us to participate in the care of your patient. Should there be any questions regarding this interpretation, please call [phone]. If you are unable to reach us at the number above, please feel free to contact [facility] at [phone]. [id number] Normal [facility] PROGRESSon 06-21-2019 PROGRESS HNO ID: [id number] Author: Holly Garcia (Tech) Service: ? Author Type: Cardiology Physician Type: Progress Notes Filed: 06/21/2019 2:25 PM Note Text: Radiology Service Progress Note PATIENT NAME: Clarence Flores DATE OF SERVICE: June 21, 2019 TIME: 2:24 PM PATIENT IDENTITY VERIFICATION COMPLETED USING TWO (2) IDENTIFIERS: Name and Date of confirmed by patient verbally. FALL SCREENING: Has the patient had 2 falls in the last year or 1 fall with injury or currently using an Ambulatory Assistive Device (Walker, Cane, Wheelchair, Crutches, etc.)? No PATIENT GENDER DATA: Male PATIENT RELEVANT IMPLANT DATA REVIEWED: Not Applicable RADIOLOGY DEPARTMENT: General X-ray: Exam(s) Completed: Chest X-Ray PERIPHERAL IV DATA: Not applicable SIGNED BY: Holly Garcia June 21, 2019 2:24 PM Normal [facility] PROGRESS HNO ID: [id number] Author: Holly Garcia (Tech) Service: ? Author Type: Cardiology Physician Type: Progress Notes Filed: 06/21/2019 9:51 AM Note Text: RADIOLOGY SERVICE PROGRESS NOTE SERVICE DATE: 06/21/2019 SERVICE TIME: 8:39 AM PATIENT IDENTITY VERIFICATION COMPLETED USING TWO (2) STANDARD IDENTIFIERS: Name and Date of confirmed by patient verbally FALL SCREENING: Has the patient had 2 falls in the last year or 1 fall with injury or currently using an Ambulatory Assistive Device (Walker, Cane, Wheelchair, Crutches, etc.)? No PATIENT GENDER DATA: .male ALLERGIES: Reviewed and unchanged MEDICATIONS REVIEWED: Not applicable PATIENT RELEVANT IMPLANT DATA REVIEWED: Not Applicable CREATININE: Creatinine Date Value Ref Range Status 06/21/2019 1.28 (H) 0.73 - 1.22 mg/dL Final 12/25/2018 1.24 (H) 0.73 - 1.22 mg/dL Final 12/24/2018 1.26 (H) 0.73 - 1.22 mg/dL Final eGFR-All Other Races Date Value Ref Range Status 06/21/2019 58 . Final Comment: eGFR (Estimated GFR) Units of measure: mL/min/1.73 meters squared eGFR is derived from the reexpressed MDRD Study equation using the following parameters: serum creatinine, age, gender and race. The creatinine assay has been calibrated to be traceable to IDMS. An eGFR <60 mL/min/1.73m2 for >3 months is consistent with chronic kidney disease. Refer to KDOQI guidelines for clinical interpretation. In patients with unstable renal function, e.g. those with acute kidney injury, the eGFR may not accurately reflect actual GFR. eGFR- Date Value Ref Range Status 06/21/2019 >60 Final P.O.C.T. RESULTS: POC done: Yes, See Lab Tab June 21, [address] PERFORMED: Yes. RADIOLOGIST NOTIFIED?: No CONTRAST ALLERGY: NO. PREMEDICATED: No CONTRAST: IV 150 ml IV contrast (300) given and Oral omnipaque 240 DIABETIC PATIENT: Not applicable IV SITE: Ambulatory: A peripheral IV was started in the Right antecubital site with a Angio cath: 20 gauge. POST EXAM PIV STATUS: Discontinued PROCEDURE TYPE: NM INJECT: PET/CT BODY SCAN. 1.28 mCi F18 FDG. No other medications given.. PATIENT DISCHARGED TO: Ambulatory patient, left NM department area. A Diagnostic radioactive procedure has taken place, with no further precautions necessary other than routine body substance precautions. More information regarding radiation safety can be found using this link: 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 Lungs and pleura: No consolidation. No lung mass. No pleural effusion. No pneumothorax. Cardiomediastinal silhouette: Cardiac silhouette is mildly enlarged. Bones and soft tissues: Degenerative changes are present within the thoracic spine. IMPRESSION: 1. No evidence of active cardiopulmonary disease. 2. Mild cardiomegaly. Transcribe Date/Time: Jun 21 2019 11:51A Dictated by: LISA WEBER MD This examination was interpreted and the report reviewed and electronically signed by: LISA WEBER MD on Jun 21 2019 12:00PM EST Thank you for allowing us to participate in the care of your patient. Should there be any questions regarding this interpretation, please call [phone]. If you are unable to reach us at the number above, please feel free to contact [facility] at [phone]. [id number] Normal [facility] CNPNon 06-17-2019 CNPN Telephone (RADTSA) -- CLARENCE FLORES ([id number]) 1960 M Date Time Provider Department 06/17/19 MAICO ANG (HISTORICAL) RADTSA During your visit today, we recorded the following information about you: Clarisse Alicia 06/17/2019 3:19 PM Signed Clarence Flores [id number] is coming in Tuesday 06/20 for CTs w/IV on; please sign pending ISTAT BMP as our lab's chemistry will be down that day and he will need CRE clearance prior to. Thanks Clarisse Alicia, market development analyst [facility] Allergies As of Date: 06/17/2019 Noted Allergy Reaction NITROGLYCERIN 11/26/2018 14 - Other: See Comments Date Reviewed: 02/05/2019 Reviewed by: Diane Shah (Darrel) Darshana - Fully Assessed Reason for Visit: Orders [681] Primary Visit Diagnosis:Left renal mass [N28.89] Order(s):ISTAT BMP [[id number]] Order #: [id number] FUTURE Prescriptions as of 06/17/2019 Sig: IV CONTRAST (RADIOLOGY PROCED* CT ABD/PEL -Inject, intraveno* ENTERIC CONTRAST (RADIOLOGY P* For CT ABD/PEL W IVCON Routin* DOCUSATE SODIUM 100 MG CAPSULE Take 1 capsule by mouth twice* Patient not taking: Reported on 02/05/2019 HYDRALAZINE 50 MG TABLET Take 1 tablet by mouth twice * METOPROLOL SUCCINATE ER 25 MG* Take 1 tablet by mouth twice * Problem List As Of Date 06/17/2019 Noted Resolved Left renal mass [N28.89] Renal neoplasm [D49.519] 12/22/2018 Encounter Status:Closed by DIANE DILLON PA-C on 06/17/19 Normal [facility] Reminderson 03-29-2019 Reminders - From: Jackie Lundberg To: EU - Recalls Mónica; Sent: 12/07/2018 14:58:31 EDT Show up: 03/13/2019 14:58:00 EST Subject: ct scan of chest w contrast Due Date/Time: 04/09/2019 14:58:00 EST Reminder/Recall Schedule repeat testing. Test: CT Scan of chest with contrast Test due in: _ 4 months due in Mar 2019 Left message on voicemail. Pt being discharged due to noncompliance Normal [facility] CNOVon 02-05-2019 CNOV Office Visit (UROLMN ) -- CLARENCE FLORES ([id number]) 1960 M Date Time Provider Department 02/05/19 10:50 AM DIANE DILLON) UROLMJenny During your visit today, we recorded the following information about you: Pulse Blood pressure Weight Height 64/minute 179/81 120.5 kg 1.676 m Diane Dillon PA-C 02/05/2019 10:49 AM Signed [facility] POST-OPERATIVE PATIENT CC: Patient is here for post-op f/u HPI: This is a 58 year old male with a h/o of a 5.2 cm left lower pole renal mass who is status post robotic-assisted left partial nephrectomy, umbilical hernia repair on 12/22/18. FINAL DIAGNOSIS A. Kidney, left renal neoplasm, partial nephrectomy - Renal cell carcinoma, clear cell type, ISUP grade 3, measuring 5.7 cm. - Tumor invades into a segmental branch of the renal vein. - Tumor is focally present within the vessel lumen of a segmental branch of the renal vein at the renal sinus/renal parenchymal margin. - See synoptic report. B. Hernia sac, excision - Benign mesothelial-lined fibrous tissue, consistent with hernia sac. Patient's post-op status is progressing well. Good energy level. Normal appetite. Energy level improving. Minimal to no pain. No voiding complaints. Ambulates independently PHYSICAL EXAM: VITALS: Blood pressure 179/81, pulse 64, height 167.6 cm (5' 6 ), weight 120.5 kg (265 lb 9.6 oz). GEN: NAD, AXOX3, obese ABD: soft, nontender, nondistended. Wounds well healed. EXT: no edema or discoloration in b/l LE. ASSESSMENT: Left renal mass s/p Robotic PNx--pathology showed RCC PLAN: Pathology was reviewed to the patient via phone call by Dr. Ang. Reviewed again today. CT abd/pel, CXR, BMP in 6M Patient aware to call sooner if any new symptoms or conditions arise Diane Dillon PA-C Electronically signed Referring Provider: MAICO ANG [[id number]] Allergies As of Date: 02/05/2019 Noted Allergy Reaction NITROGLYCERIN 11/26/2018 14 - Other: See Comments Date Reviewed: 02/05/2019 Reviewed by: Diane Dillon - Fully Assessed Visit Diagnosis:Renal cell carcinoma of left kidney (HCC) [C64.2] Order(s):CT ABD/PEL W IVCON [[id number]] Order #: [id number] FUTURE iv contrast (will be provided with radiology test)CT ABD/PEL -Inject, intravenously, once for 1 dose.No IV access, insert saline lock prior to the beginning of sedation, infusion, injection of imaging exam. Discontinue saline lock post exam. If Pt. has a central line or IVAD, may access for administration according to line specific nursing protocol. Once exam is complete flush line and de-access according to line specific nursing protocol in the CT contrast administration guidelines link.Disp: 1 EachRfl: 0 enteric contrast (will be provided with radiology test)For CT ABD/PEL W IVCON Routine order Administer, As Directed One Time Only, via Oral, Rectal, both Oral and Rectal, Enteric Tube, Stoma or Indwelling Catheter, Enteric Contrast as designated per enteric contrast guidelinesDisp: 1 EachRfl: 0 XR CHEST 2V FRONTAL/LAT [[id number]] Order #: [id number] FUTURE BASIC METABOLIC PNL [SQBMP] Order #: [id number] FUTURE Prescriptions as of 02/05/2019 Sig: HYDRALAZINE 50 MG TABLET Take 1 tablet by mouth twice * METOPROLOL SUCCINATE ER 25 MG* Take 1 tablet by mouth twice * IV CONTRAST (RADIOLOGY PROCED* CT ABD/PEL -Inject, intraveno* ENTERIC CONTRAST (RADIOLOGY P* For CT ABD/PEL W IVCON Routin* DOCUSATE SODIUM 100 MG CAPSULE Take 1 capsule by mouth twice* Patient not taking: Reported on 02/05/2019 Problem List As Of Date 02/05/2019 Noted Resolved Left renal mass [N28.89] Renal neoplasm [D49.519] 12/22/2018 Prescriptions ordered this encounter Disp Refills Start End IV CONTRAST (RADIOLOGY PROCEDURE) 1 Ea* 0 02/05/2019 Class: In Office Sig: CT ABD/PEL -Inject, intravenously, once for 1 dose.No IV access, insert saline lock prior to the beginning of sedation, infusion, injection of imaging exam. Discontinue saline lock post exam. If Pt. has a central line or IVAD, may access for administration according to line specific nursing protocol. Once exam is complete flush line and de-access according to line specific nursing protocol in the CT contrast administration guidelines link. ENTERIC CONTRAST (RADIOLOGY PROCEDUR* 1 Ea* 0 02/05/2019 Class: In Office Sig: For CT ABD/PEL W IVCON Routine order Administer, As Directed One Time Only, via Oral, Rectal, both Oral and Rectal, Enteric Tube, Stoma or Indwelling Catheter, Enteric Contrast as designated per enteric contrast guidelines Encounter Status:Closed by DIANE DILLON PA-C on 02/05/[address] [facility] CNPTOUTREACHon 02-05-2019 [facility] Outreach (UR OLMN) -- CLARENCE FLORES ([id number]) 1960 M Date Time Provider Department 02/05/19 IDANE DILLON) URON During your visit today, we recorded the following information about you: Allergies As of Date: 02/05/2019 Noted Allergy Reaction NITROGLYCERIN 11/26/2018 14 - Other: See Comments Date Reviewed: 02/05/2019 Reviewed by: Diane Dillon - Fully Assessed Visit Diagnosis:Screening for genitourinary condition [Z13.89] Order(s):UA CHEMSTRIP ONLY [SQUA] Order #: [id number]. #:[id number] Prescriptions as of 02/05/2019 Sig: IV CONTRAST (RADIOLOGY PROCED* CT ABD/PEL -Inject, intraveno* ENTERIC CONTRAST (RADIOLOGY P* For CT ABD/PEL W IVCON Routin* DOCUSATE SODIUM 100 MG CAPSULE Take 1 capsule by mouth twice* Patient not taking: Reported on 02/05/2019 HYDRALAZINE 50 MG TABLET Take 1 tablet by mouth twice * METOPROLOL SUCCINATE ER 25 MG* Take 1 tablet by mouth twice * Problem List As Of Date 02/05/2019 Noted Resolved Left renal mass [N28.89] Renal neoplasm [D49.519] 12/22/2018 Encounter Status:Closed by DESI CALDERÓN on 02/22/19 Normal [facility] PROGRESSon 02-05-2019 PROGRESS HNO ID: [id number] Author: Diane Dillon Service: ? Author Type: Physician Supervisor Component Assembler Type: Progress Notes Filed: 02/05/2019 10:49 AM Note Text: [facility] PHYSICIAN [facility] POST-OPERATIVE PATIENT CC: Patient is here for post-op f/u HPI: This is a 58 year old male with a h/o of a 5.2 cm left lower pole renal mass who is status post robotic-assisted left partial nephrectomy, umbilical hernia repair on 12/22/18. FINAL DIAGNOSIS A. Kidney, left renal neoplasm, partial nephrectomy - Renal cell carcinoma, clear cell type, ISUP grade 3, measuring 5.7 cm. - Tumor invades into a segmental branch of the renal vein. - Tumor is focally present within the vessel lumen of a segmental branch of the renal vein at the renal sinus/renal parenchymal margin. - See synoptic report. B. Hernia sac, excision - Benign mesothelial-lined fibrous tissue, consistent with hernia sac. Patient's post-op status is progressing well. Good energy level. Normal appetite. Energy level improving. Minimal to no pain. No voiding complaints. Ambulates independently PHYSICAL EXAM: VITALS: Blood pressure 179/81, pulse 64, height 167.6 cm (5' 6 ), weight 120.5 kg (265 lb 9.6 oz). GEN: NAD, AXOX3, obese ABD: soft, nontender, nondistended. Wounds well healed. EXT: no edema or discoloration in b/l LE. ASSESSMENT: Left renal mass s/p Robotic PNx--pathology showed RCC PLAN: Pathology was reviewed to the patient via phone call by Dr. Ang. Reviewed again today. CT abd/pel, CXR, BMP in 6M Patient aware to call sooner if any new symptoms or conditions arise Diane Dillon PA-C Electronically signed Normal [facility] Urinalysison 02-05-2019 Bilirubin, Urine Negative Normal Negative Kye bonilla [facility] Comment on above: Performed By: #### U A ####[facility] [address] [place], [place] [phone] Clarity (U) Clear Normal Clear [facility] Comment on above: Performed By: #### U A ####[facility] [place], [place] [phone] Color (U) Yellow Normal Yellow [facility] Comment on above: Performed By: #### U A ####[place] [phone] Comments SEE COMMENT Normal [facility] Comment on above: Result Comment: Micr oscopic not warranted Performed By: #### U A ####[place] [phone] Glucose Ql (U) Negative Normal Negative [facility] Comment on above: Performed By: #### U A ####[place] [phone] Hemoglobin/Blood,Ur Negative Normal Negative [facility] Comment on above: Performed By: #### U A ####[place] [phone] Ketones Ql (U) Negative Normal Negative [facility] Comment on above: Performed By: #### U A ####[place] [phone] Leukest Negative Normal Negative [facility] Comment on above: Performed By: #### U A ####[place] [phone] Nitrite Ql (U) Negative Normal Negative [facility] Comment on above: Performed By: #### U A ####[place] [phone] pH (Bld) 6.5 Normal 4.5-8.0 [facility] Comment on above: Performed By: #### U A ####[place] [phone] Protein (U) [Mass/Vol] Trace Criticall y abnormal Negative [facility] Comment on above: Performed By: #### U A ####[place] [phone] Specific Reedy, Ur 1.020 Normal 1.005-1 .03 0 [facility] Comment on above: Performed By: #### U A ####[place] [address] [place], [place] [phone] Urine Shin Comment SEE COMMENT Normal [facility] Comment on above: Result Comment: N/A Performed By: #### U A ####[place] [address] [place], [place] [phone] Urobilinogen Qn (U) Normal Normal Normal [facility] Comment on above: Performed By: #### U A ####[place] [address] [place] [phone] Basic Metabolic Panlon 12-25 Anion gap [Moles/Vol] 9 mmol/L Normal 9-18 [facility] Comment on above: Performed By: #### C BCDIF, BMP ####[place] [address] [place] [phone] Calcium [Mass/Vol] 8.3 mg/dL Low 8.5-10.2 [facility] Comment on above: Performed By: #### C BCDILinda, BMP ####[place] [address] [address], [place] [phone] Chloride [Moles/Vol] 109 mmol/L High 97-105 [facility] Comment on above: Performed By: #### C BCDIF, BMP ####[place] [address] [address], [place] [phone] CO2 [Moles/Vol] 21 mmol/L Low 22-30 [facility] Comment on above: Performed By: #### C BCDIF, BMP ####[place] [address], [place] [phone] Creatinine [Mass/Vol] 1.24 mg/dL High 0.73-1.22 [facility] Comment on above: Performed By: #### C BCDIF, BMP ####[place] [address] [place], [place] [phone] eGFR- Amer. >60 Normal [facility] Comment on above: Performed By: #### C NIRALI VINSON ####[place] [id number] [place], [place] [phone] GFR/1.73 sq M predicted among non-blacks MDRD (S/P/Bld) [Vol rate/Area] mL/min/{1.73_m2} Normal [facility] Comment on above: Result Comment: eGFR (Estimated GFR) Units of measure: mL/min/1.73 meters squared eGFR is derived from the reexpressed MDRD Study equation using the following parameters: serum creatinine, age, gender and race. The creatinine assay has been calibrated to be traceable to IDMS. An eGFR <60 mL/min/1.73m2 for >3 months is consistent with chronic kidney disease. Refer to KDOQI guidelines for clinical interpretation. In patients with unstable renal function, e.g. those with acute kidney injury, the eGFR may not accurately reflect actual GFR. Performed By: #### C NIRALI VINSON ####[address] [phone] Glucose [Mass/Vol] 117 mg/dL High 74-99 [facility] Comment on above: Result Comment: The [place] Diabetes [employer] (ADA) provides guidance for cutoff values for fasting glucose and random glucose. The ADA defines fasting as no caloric intake for at least 8 hours. Fasting plasma glucose results between 100 to 125 mg/dL indicate increased risk for diabetes (prediabetes). Fasting plasma glucose results greater than or equal to 126 mg/dL meet the criteria for diagnosis of diabetes. In the absence of unequivocal hyperglycemia, results should be confirmed by repeat testing. In a patient with classic symptoms of hyperglycemia or hyperglycemic crisis, random plasma glucose results greater than or equal to 200 mg/dL meet the criteria for diagnosis of diabetes. Reference: Standards of Medical Care in Diabetes 2016, [place] [employer]. Diabetes Care. 2016.39(Suppl 1). Performed By: #### C NIRALI VINSON ####[address] [phone] Potassium [Moles/Vol] 3.8 mmol/L Normal 3.7-5.1 [facility] Comment on above: Performed By: #### C BCDIF, BMP ####[facility] [place] [phone] Sodium [Moles/Vol] 139 mmol/L Normal 136-144 [facility] Comment on above: Performed By: #### C BCDIF, BMP ####[place] [address] [address] [phone] Urea nitrogen [Mass/Vol] 16 mg/dL Normal 9-24 [facility] Comment on above: Performed By: #### C BCDILinda, BMP ####[place] [address], [place] [phone] CBC and Differentialon 12-25 Abs Baso 0.04 k/uL Normal <0.11 [facility] Comment on above: Performed By: #### C BCKATLYNF, BMP ####[place] [address], [place] [phone] Abs Douglas 1.12 k/uL High <0.87 [facility] Comment on above: Performed By: #### C BCDIF, BMP ####[place] [address] [place] [phone] Abs Neut 9.63 k/uL High 1.45-7.50 [facility] Comment on above: Performed By: #### C BCDIF, BMP ####[place] [address], [place] [phone] Absolute nRBC <0.01 Normal <0.01 [facility] Comment on above: Performed By: #### C BCDIF, BMP ####[place] [address], [place] [phone] Basophils/100 WBC (Bld) 0.3 % Normal [facility] Comment on above: Performed By: #### C BCDIF, BMP ####[place] [address] [place] [phone] DTYPE Auto Diff Normal [facility] Comment on above: Performed By: #### C BCDIF, BMP ####[place] [address] [place] [phone] Eosinophils (Bld) [#/Vol] 0.24 10*3/uL Normal <0.46 [facility] Comment on above: Performed By: #### C BCDIF, BMP ####[place] [address] [phone] Eosinophils/100 WBC (Bld) 2.0 % Normal [facility] Comment on above: Performed By: #### C BCDIF, BMP ####[place] [address] [place] [phone] Erythrocyte distribution width (RBC) [Ratio] 13.7 % Normal 11.5-15.0 [facility] Comment on above: Performed By: #### C BCDIF, BMP ####[place] [address] [place] [phone] Hematocrit (Bld) [Volume fraction] 39.9 % Normal 39.0-51.0 [facility] Comment on above: Performed By: #### C BCDIF, BMP ####[place] [address] [place] [phone] Hemoglobin (Bld) [Mass/Vol] 13.3 g/dL Normal 13.0-17.0 [facility] Comment on above: Performed By: #### C BCDIF, BMP ####[place] [address] [place] [phone] Lymphocytes (Bld) [#/Vol] 1.25 10*3/uL Normal 1.00-4.00 [facility] Comment on above: Performed By: #### C BCDIF, BMP ####[place] [id number] [place] [phone] Lymphocytes/100 WBC (Bld) 10.2 % Normal [facility] Comment on above: Performed By: #### C BCDIF, BMP ####[place] [address] [place] [phone] MCH (RBC) [Entitic mass] 29.3 pG Normal 26.0-34.0 [facility] Comment on above: Performed By: #### C BCDIF, BMP ####[place] [address] [place] [phone] MCHC (RBC) [Mass/Vol] 33.3 g/dL Normal 30.5-36.0 [place] [facility] Comment on above: Performed By: #### C BCDIF, BMP ####[place] [address] [place] [phone] MCV (RBC) [Entitic vol] 87.9 fL Normal 80.0-100.0 [facility] Comment on above: Performed By: #### C BCDIF, BMP ####[place] [address] [place] [phone] Monocytes/100 WBC (Bld) 9.1 % Normal [facility] Comment on above: Performed By: #### C BCDIF, BMP ####[place] [address] [place] [phone] Neutrophils/100 WBC (Bld) 78.4 % Normal [facility] Comment on above: Performed By: #### C BCDIF, BMP ####[place] [address] [place] [phone] NRBCs 0.0 /100 WBC Normal 0 [facility] Comment on above: Performed By: #### C BCDIF, BMP ####[place] [address] [place], [place] [phone] Platelet mean volume (Bld) [Entitic vol] 9.6 fL Normal 9.0-12.7 [facility] Comment on above: Performed By: #### C BCDIF, BMP ####[facility] [place], [place] [phone] Platelets (Bld) [#/Vol] 241 10*3/uL Normal 150-400 [facility] Comment on above: Performed By: #### C BCDIF, BMP ####[facility] [place], [place] [phone] RBC (Bld) [#/Vol] 4.54 10*6/uL Normal 4.20-6.00 [facility] Comment on above: Performed By: #### C BCDIF, BMP ####[facility] [place], [place] [phone] WBC (Bld) [#/Vol] 12.28 10*3/uL High 3.70-11.00 [facility] Comment on above: Performed By: #### C BCDIF, BMP ####[address] [phone] PROGRESSon 12-25-2018 PROGRESS HNO ID: [id number] Author: Clarence (Breana) Roxana Service: Urology Author Type: Resident Type: Progress Notes Filed: 12/25/2018 9:45 AM Note Text: [facility] UROLOGY PROGRESS NOTE Name: Clarence Flores Bed: G090 [id number]/[id number] Date: December 25, 2018 After Hours [facility] [place] [facility] Pager: [phone] ASSESSMENT AND PLAN Clarence Flores is a 58 year old male with history of?left renal mass?now?POD#3?s/p left robotic partial nephrectomy and umbilical hernia repair ? Interval:?Stable. Passing gas. Walking. Pain controlled ? Active Problems Renal Neoplasm:?Suspected malignancy, Pathology Pending?- await path TONY - not on CPAP HTN Umbilical hernia - s/p repair Suspected BPH - q2hr nocturnal frequency, required coude in OR - start flomax Leukocytosis - ?Likely reactive, but will watch for fevers or clinical changes - improving Tachycardia - pain vs underresuscitation - monitor closely, continue IVF Sinus irritation - Saline spray, cepacol ? Pain -?controlled? Jacques -?out and voiding Fluids - 50/hr Diet -?Clear liquid diet?- reg diet today Activity -?OOB to chair and Ambulate with assistance DVT prophylaxis -?Pharmacologic DVT prophylaxis contraindicated due to bleeding risk Antibiotics -?Perioperative antibiotics -?ancef?- completed Discharge planning -?home today SUBJECTIVE -Doing well -Pain: Controlled -N/V: No -Bowel function: yes flatus -Ambulating: Yes Objective Vital Signs BP 141/72 Pulse 86 Temp 37.1 ?C (98.8 ?F) (Oral) Resp 18 Ht 167.6 cm (5' 6 ) Wt 119.7 kg (264 lb) SpO2 94% BMI 42.61 kg/m? Body mass index is 42.61 kg/m?. Input and Output Intake/Output Summary (Last 24 hours) at 12/25/2018 0943 Last data filed at 12/25/2018 0555 Gross per 24 hour Intake 2485 ml Output 465.5 ml Net 2019.5 ml Urine output Not recorded Drains n/a Physical Exam General: Well-appearing, no acute distress CV: RRR, no m/g/r Lungs: Clear to auscultation bilaterally Abdomen:??Appropriately tender,?distended Wound:??Binder in place, dressing c/d/i :?Jacques removed, voiding Extremities: Normal. No cyanosis, clubbing, or edema Recent Labs 12/25/18 0657 12/24/18 0904 12/23/18 0020 WBC 12.28* 16.68* 19.06* HB 13.3 14.5 15.3 HCT 39.9 43.5 46.4 PLT 241 278 315 NA 139 138 137 K 3.8 4.0 4.0 CHLOR 109* 104 102 CO2 21* 18* 21* BUN 16 15 11 CREAT 1.24* 1.26* 1.31* GLUC 117* 117* 121* Imaging n/a Clarence Schmidt MD Personal Pager: [phone] For weekend or after hours issues [place] [phone] [facility] PROGRESS HNO ID: [id number] Author: Kate Ruiz) Lion Service: Urology Author Type: Nurse Practitioner Type: Progress Notes Filed: 12/25/2018 9:51 AM Note Text: UROLOGY SERVICE PROGRESS NOTE PATIENT INFO: Clarence Flores 58 year old DATE: 12/25/2018 S: No acute events. Patient reports feeling much better compared to previous days post operatively. Tolerating regular diet, passing flatus. Denies fever, chills, N/V, chest pain or shortness of breath. Ambulating without issue. PAST MEDICAL HISTORY Diagnosis Date - Chronic back pain - Gallstones - HTN (hypertension) - Left renal mass - Obese - TONY (obstructive sleep apnea) - Umbilical hernia Exam: Patient Vitals for the past 8 hrs: BP Temp Temp src Pulse Resp SpO2 12/25/18 0739 141/72 37.1 ?C (98.8 ?F) Oral 86 18 94 % 12/25/18 0450 ? ? ? 86 ? 96 % 12/25/18 0250 140/70 37 ?C (98.6 ?F) Oral 89 18 91 % Tmax: Temp (24hrs), Av.2 ?C (99 ?F), Min:36.9 ?C (98.4 ?F), Max:37.6 ?C (99.6 ?F) Intake/Output Summary (Last 24 hours) at 12/25/2018 0943 Last data filed at 12/25/2018 0555 Gross per 24 hour Intake 2485 ml Output 465.5 ml Net 2019.5 ml General: Well-appearing, no acute distress CV: No abnormal heart sounds Lungs: Breaths even and unlabored Abdomen: Protuberant abdomen, appropriately-tender, slighty-distended Wound: Incision clean, dry, and intact, SHELBY drain removed intact at bedside : Voiding clear tg urine Extremities: Normal. No edema Labs: Recent Labs 12/25/18 0657 12/24/18 0904 12/23/18 0020 WBC 12.28* 16.68* 19.06* HB 13.3 14.5 15.3 HCT 39.9 43.5 46.4 PLT 241 278 315 NA 139 138 137 K 3.8 4.0 4.0 CHLOR 109* 104 102 CO2 21* 18* 21* BUN 16 15 11 CREAT 1.24* 1.26* 1.31* GLUC 117* 117* 121* Current Facility-Administered Medications Medication Dose Route Frequency - hydrALAZINE 50 mg tab(s) (APRESOLINE) 50 mg ORAL BID - metoprolol succinate ER 25 mg tab(s) (TOPROL XL) 25 mg ORAL BID - docusate sodium 100 mg cap(s) (COLACE) 100 mg ORAL BID - pantoprazole DR 40 mg tab(s) (PROTONIX) 40 mg ORAL DAILY (6 AM) - oxybutynin 5 mg tab(s) (DITROPAN) 5 mg ORAL q 8 H PRN - acetaminophen 650 mg tab(s) (TYLENOL) 650 mg ORAL q 6 H - morphine 1-2 mg injection 1-2 mg INTRAVENOUS q 3 H PRN - ondansetron (PF) 4 mg injection (ZOFRAN) 4 mg INTRAVENOUS q 6 H PRN - oxyCODONE IR 5 mg tab(s) (ROXICODONE) 5 mg ORAL q 6 H PRN - sodium chloride 0.65 % 2 Colbert (AYR, OCEAN) 2 Colbert EACH NOSTRIL PRN - tamsulosin ER 0.4 mg cap(s) (FLOMAX) 0.4 mg ORAL DAILY - benzocaine-menthol 1 Lozenge (CEPACOL) 1 Lozenge MUCOUS MEMBRANE (TOPICAL MOUTH AND THROAT) q 2 H PRN - simethicone, chewable 80 mg tab(s) (MYLICON) 80 mg ORAL QID PRN - lidocaine 5 % 1 Patch (LIDODERM) 1 Patch TRANSDERMAL DAILY And - lidocaine patch - REMOVE OTHER AT BEDTIME And - lidocaine - VERIFY PATCH OTHER q 8 H - polyvinyl alcohol 1.4 % 1 Drop (LIQUIFILM TEARS) 1 Drop BOTH EYES QID PRN Imp/Plan: Clarence Flores is a 58 year old male with history of?left renal mass?now?POD#3?s/p left robotic partial nephrectomy and umbilical hernia repair Doing well, afebrile, pain level tolerable on current pain regimen, tolerating diet and passing flatus, ambulating and voiding without issue - Diet - GI Soft/regular diet, +ROBF - Activity - Ambulate with assistance -Respiratory- Continue to encourage use of IS -Pain- Well controlled (Tylenol, Oxycodone- Limit narcotic use when able) - DVT prophylaxis - PAS Stockings on and Pharmacologic DVT prophylaxis contraindicated due to bleeding risk - Antibiotics - Perioperative antibiotics - ancef completed - Discharge teaching - routine teaching - Discharge planning - Discharge home today. SHELBY drain removed intact at bedside prior to discharge. Signature: Kate Seymour CNP Pager: [phone] Date of service: 12/25/2018 Normal [facility] Basic Metabolic Panlon 12-24 Anion gap [Moles/Vol] 16 mmol/L Normal 9-18 [facility] Comment on above: Performed By: #### C BCDIF, BMP ####[address] [phone] Calcium [Mass/Vol] 8.7 mg/dL Normal 8.5-10.2 [facility] Comment on above: Performed By: #### C BCDIF, BMP ####[address] [phone] Chloride [Moles/Vol] 104 mmol/L Normal 97-105 [facility] Comment on above: Performed By: #### C BCDIF, BMP ####[address] [phone] CO2 [Moles/Vol] 18 mmol/L Low 22-30 [facility] Comment on above: Performed By: #### C BCDIF, BMP ####[address] [phone] Creatinine [Mass/Vol] 1.26 mg/dL High 0.73-1.22 [facility] Comment on above: Performed By: #### C BCDIF, BMP ####[address] [phone] eGFR- Amer. >60 Normal [facility] Comment on above: Performed By: #### C BCDIF, BMP ####[address] [place] [phone] GFR/1.73 sq M predicted among non-blacks MDRD (S/P/Bld) [Vol rate/Area] 59 . Normal [facility] Comment on above: Result Comment: eGFR (Estimated GFR) Units of measure: mL/min/1.73 meters squared eGFR is derived from the reexpressed MDRD Study equation using the following parameters: serum creatinine, age, gender and race. The creatinine assay has been calibrated to be traceable to IDMS. An eGFR <60 mL/min/1.73m2 for >3 months is consistent with chronic kidney disease. Refer to KDOQI guidelines for clinical interpretation. In patients with unstable renal function, e.g. those with acute kidney injury, the eGFR may not accurately reflect actual GFR. Performed By: #### C NIRALI VINSON ####[address] [phone] Glucose [Mass/Vol] 117 mg/dL High 74-99 [facility] Comment on above: Result Comment: The [place] [employer] (ADA) provides guidance for cutoff values for fasting glucose and random glucose. The ADA defines fasting as no caloric intake for at least 8 hours. Fasting plasma glucose results between 100 to 125 mg/dL indicate increased risk for diabetes (prediabetes). Fasting plasma glucose results greater than or equal to 126 mg/dL meet the criteria for diagnosis of diabetes. In the absence of unequivocal hyperglycemia, results should be confirmed by repeat testing. In a patient with classic symptoms of hyperglycemia or hyperglycemic crisis, random plasma glucose results greater than or equal to 200 mg/dL meet the criteria for diagnosis of diabetes. Reference: Standards of Medical Care in Diabetes 2016, [place] [employer]. Diabetes Care. 2016.39(Suppl 1). Performed By: #### C NIRALI VINSON ####[address] [phone] Potassium [Moles/Vol] 4.0 mmol/L Normal 3.7-5.1 [facility] Comment on above: Performed By: #### C NIRALI VINSON ####[address] [phone] Sodium [Moles/Vol] 138 mmol/L Normal 136-144 [facility] Comment on above: Performed By: #### C BCKRYSTAL, BMP ####[address] [place], [place] [phone] Urea nitrogen [Mass/Vol] 15 mg/dL Normal 9-24 [facility] Comment on above: Performed By: #### C BCKRYSTAL, BMP ####[place] [phone] CBC and Differentialon 12-24 Abs Baso 0.06 k/uL Normal <0.11 [facility] Comment on above: Performed By: #### C BCKATLYNF, BMP ####[address] [phone] Abs Douglas 1.82 k/uL High <0.87 [facility] Comment on above: Performed By: #### C BCDIF, BMP ####[place] [phone] Abs Neut 13.61 k/uL High 1.45-7.50 [facility] Comment on above: Performed By: #### C BCKATLYNF, BMP ####[address] [phone] Absolute nRBC <0.01 Normal <0.01 [facility] Comment on above: Performed By: #### C BCDIF, BMP ####[address] [phone] Basophils/100 WBC (Bld) 0.4 % Normal [facility] Comment on above: Performed By: #### C BCDIF, BMP ####[address] [place], [place] [phone] DTYPE Auto Diff Normal [facility] Comment on above: Performed By: #### C BCDIF, BMP ####[facility] AveClevel[address] [place] [phone] Eosinophils (Bld) [#/Vol] 0.03 10*3/uL Normal <0.46 [facility] Comment on above: Performed By: #### C BCDIF, BMP ####[place] [address] [address] [place] [phone] Eosinophils/100 WBC (Bld) 0.2 % Normal [facility] Comment on above: Performed By: #### C BCDIF, BMP ####[place] [address] [address] [place] [phone] Erythrocyte distribution width (RBC) [Ratio] 13.7 % Normal 11.5-15.0 [facility] Comment on above: Performed By: #### C BCDIF, BMP ####[place] [address] [address] [place] [phone] Hematocrit (Bld) [Volume fraction] 43.5 % Normal 39.0-51.0 [facility] Comment on above: Performed By: #### C BCDIF, BMP ####[place] [address] [phone] Hemoglobin (Bld) [Mass/Vol] 14.5 g/dL Normal 13.0-17.0 [facility] Comment on above: Performed By: #### C BCDIF, BMP ####[place] [address] [address] [place] [phone] Lymphocytes (Bld) [#/Vol] 1.16 10*3/uL Normal 1.00-4.00 [facility] Comment on above: Performed By: #### C BCDIF, BMP ####[place] [address] AveClevelSummer [place] [phone] Lymphocytes/100 WBC (Bld) 7.0 % Normal [facility] Comment on above: Performed By: #### C BCDIF, BMP ####[place] [address] [address], [place] [phone] MCH (RBC) [Entitic mass] 29.3 pG Normal 26.0-34.0 [facility] Comment on above: Performed By: #### C BCDIF, BMP ####[place] [address], [place] [phone] MCHC (RBC) [Mass/Vol] 33.3 g/dL Normal 30.5-36.0 [facility] Comment on above: Performed By: #### C BCDIF, BMP ####[address] [place] [phone] MCV (RBC) [Entitic vol] 87.9 fL Normal 80.0-100.0 [facility] Comment on above: Performed By: #### C BCDIF, BMP ####[place] [address], [place] [phone] Monocytes/100 WBC (Bld) 10.9 % Normal [facility] Comment on above: Performed By: #### C BCDIF, BMP ####[place] [address] [place], [place] [phone] Neutrophils/100 WBC (Bld) 81.5 % Normal [facility] Comment on above: Result Comment: Diff erential confirmed by visual scan of peripheral blood smear slide. Performed By: #### C BCDIF, BMP ####[place] [address], [place] [phone] NRBCs 0.0 /100 WBC Normal 0 [facility] Comment on above: Performed By: #### C BCDIF, BMP ####[place] [address], [place] [phone] Platelet mean volume (Bld) [Entitic vol] 9.6 fL Normal 9.0-12.7 [facility] Comment on above: Performed By: #### C BCDIF, BMP ####[facility] [place], [place] [phone] Platelets (Bld) [#/Vol] 278 10*3/uL Normal 150-400 [facility] Comment on above: Performed By: #### C BCDIF, BMP ####[facility] [place], [place] [phone] RBC (Bld) [#/Vol] 4.95 10*6/uL Normal 4.20-6.00 [facility] Comment on above: Performed By: #### C BCDIF, BMP ####[place] [address] [place], [place] [phone] WBC (Bld) [#/Vol] 16.68 10*3/uL High 3.70-11.00 [facility] Comment on above: Performed By: #### C BCDIF, BMP ####[facility] [place], [place] [phone] PROGRESSon 12-24-2018 PROGRESS HNO ID: [id number] Author: Clarence Schmidt Service: Urology Author Type: Resident Type: Progress Notes Filed: 12/24/2018 10:00 AM Note Text: [facility] UROLOGY PROGRESS NOTE Name: Clarence Flores Bed: G090 [id number]/[id number] Date: December 24, 2018 After Hours [facility] Urology Service Pager: [phone] ASSESSMENT AND PLAN Clarence Flores is a 58 year old male with history of?left renal mass?now POD#2 s/p left robotic partial nephrectomy and umbilical hernia repair ? Interval:?Stable. Still distended with no flatus. ? Active Problems Renal Neoplasm:?Suspected malignancy, Pathology Pending?- await path TONY - not on CPAP HTN Umbilical hernia - s/p repair Suspected BPH - q2hr nocturnal frequency, required coude in [place] - start flomax tonight in anticipation of TOV Leukocytosis - Likely reactive, but will watch for fevers or clinical changes Tachycardia - pain vs underresuscitation - monitor closely, continue IVF Sinus irritation - Saline spray, cepacol ? Pain -?controlled? Jacques -?out and voiding Fluids - 50/hr Diet -?Clear liquid diet - reg diet today Activity -?OOB to chair and Ambulate with assistance DVT prophylaxis -?Pharmacologic DVT prophylaxis contraindicated due to bleeding risk Antibiotics -?Perioperative antibiotics -?ancef - completed Discharge planning -?Pending course SUBJECTIVE -Stable -Pain: Controlled -N/V: No but belching -Bowel function: not yet -Ambulating: Yes Objective Vital Signs BP 122/68 Pulse 98 Temp 36.9 ?C (98.4 ?F) (Oral) Resp 18 Ht 167.6 cm (5' 6 ) Wt 119.7 kg (264 lb) SpO2 95% BMI 42.61 kg/m? Body mass index is 42.61 kg/m?. Input and Output Intake/Output Summary (Last 24 hours) at 12/24/2018 0958 Last data filed at 12/24/2018 0643 Gross per 24 hour Intake 2809 ml Output 3052 ml Net -243 ml Urine output 3L Drains 76cc ss Physical Exam General: Well-appearing, no acute distress CV: RRR, no m/g/r Lungs: Clear to auscultation bilaterally Abdomen:??Appropriately tender, distended Wound:??Binder in place, dressing c/d/i :?Jacques catheter present and Urine clear Extremities: Normal. No cyanosis, clubbing, or edema Recent Labs 12/24/18 0904 12/23/18 0020 12/22/18 1302 12/22/18 1135 WBC 16.68* 19.06* -- 15.64* HB 14.5 15.3 -- 15.4 HCT 43.5 46.4 -- 46.4 PLT 278 315 -- 263 NA -- 137 -- 138 K -- 4.0 4.2 5.5* CHLOR -- 102 -- 105 CO2 -- 21* -- 23 BUN -- 11 -- 9 CREAT -- 1.31* -- 1.17 GLUC -- 121* -- 168* Imaging n/a Clarence Schmidt MD Personal Pager: [phone] For weekend or after hours issues [place] [phone] Normal [facility] Basic Metabolic Panlon 11-13 -2019 Anion gap [Moles/Vol] 14 mmol/L Normal 9-18 [facility] Comment on above: Performed By: #### C KAREL, BMP ####[place] [address], [place] [phone] Calcium [Mass/Vol] 8.7 mg/dL Normal 8.5-10.2 [facility] Comment on above: Performed By: #### Pablo VINSON, BMP ####[place] [address] [address] [place] [phone] Chloride [Moles/Vol] 102 mmol/L Normal 97-105 [facility] Comment on above: Performed By: #### C KAREL, BMP ####[place] [address] [place], [place] [phone] CO2 [Moles/Vol] 21 mmol/L Low 22-30 [facility] Comment on above: Performed By: #### Pablo VINSON, BMP ####[place] [address] [place], [place] [phone] Creatinine [Mass/Vol] 1.31 mg/dL High 0.73-1.22 [facility] Comment on above: Performed By: #### Pablo VINSON, BMP ####[place] [address] [place], [place] [phone] eGFR- Amer. >60 Normal [facility] Comment on above: Performed By: #### C KAREL, BMP ####[place] [address], [place] [phone] GFR/1.73 sq M predicted among non-blacks MDRD (S/P/Bld) [Vol rate/Area] 57 . Normal [facility] Comment on above: Result Comment: eGFR (Estimated GFR) Units of measure: mL/min/1.73 meters squared eGFR is derived from the reexpressed MDRD Study equation using the following parameters: serum creatinine, age, gender and race. The creatinine assay has been calibrated to be traceable to IDMS. An eGFR <60 mL/min/1.73m2 for >3 months is consistent with chronic kidney disease. Refer to KDOQI guidelines for clinical interpretation. In patients with unstable renal function, e.g. those with acute kidney injury, the eGFR may not accurately reflect actual GFR. Performed By: #### C NIRALI VINSON ####[facility] [place] [address] [phone] Glucose [Mass/Vol] 121 mg/dL High 74-99 [facility] Comment on above: Result Comment: The [place] Diabetes Association (ADA) provides guidance for cutoff values for fasting glucose and random glucose. The ADA defines fasting as no caloric intake for at least 8 hours. Fasting plasma glucose results between 100 to 125 mg/dL indicate increased risk for diabetes (prediabetes). Fasting plasma glucose results greater than or equal to 126 mg/dL meet the criteria for diagnosis of diabetes. In the absence of unequivocal hyperglycemia, results should be confirmed by repeat testing. In a patient with classic symptoms of hyperglycemia or hyperglycemic crisis, random plasma glucose results greater than or equal to 200 mg/dL meet the criteria for diagnosis of diabetes. Reference: Standards of Medical Care in Diabetes 2016, [place] Diabetes Association. Diabetes Care. 2016.39(Suppl 1). Performed By: #### C NIRALI VINSON ####[address] [phone] Potassium [Moles/Vol] 4.0 mmol/L Normal 3.7-5.1 [facility] Comment on above: Performed By: #### C NIRALI VINSON ####[facility] [place], [place] [phone] Sodium [Moles/Vol] 137 mmol/L Normal 136-144 [facility] Comment on above: Performed By: #### C NIRALI VINSON ####[facility] [place], [place] [phone] Urea nitrogen [Mass/Vol] 11 mg/dL Normal 9-24 [facility] Comment on above: Performed By: #### Pablo VINSON BMP ####[facility] [address] [place], [place] [phone] CASE MGT INIT Sid 2018 CASE MGT INIT ROSARIO HNO ID: [id number] Author: Cornelius Diaz (Sw) Service: Care Management Author Type: Foundry Worker Apprentice Type: Care Mgt Initial Assessment Filed: 12/23/2018 4:27 PM Note Text: CARE MANAGEMENT: ASSESSMENT AND DISCHARGE PLAN SERVICE DATE: 12/23/2018 SERVICE TIME: 4:24 PM PRIMARY CARE PHYSICIAN: Shea Beach MD ADMISSION STATUS: Observation Needs Prior to Discharge: None;Ready for Discharge 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 No Advance Directive: Current Advance Directive: Health Care Power of Installer Technician In Chart: Yes Up To Date and Valid: Yes Health Literacy: 1. How often do you need to have someone help you when you read instructions, pamphlets, or other written material from your doctor or pharmacy? Never - 1 2. How confident are you filling out medical forms by yourself? Extremely - 1 If Patient scores > 3 on either question, the following interventions were put into place: Patient did not score > 3 FUNCTIONAL AND COGNITIVE/BEHAVIORAL PRIOR TO ADMISSION: Baseline Mental Status: Alert AND Oriented, Person, Place , Time and Situation Functional Status: Independent Does Patient Currently Receive Any Community Services or Home Care? None Equipment Prior to Admission: None Has the Patient Been in a Correction Facility in the Past 30 days? No SOCIAL: Living Arrangement: Home Lives With: Son Financial Resources: Employed: [employer] Primary Contact: Extended Emergency Contact Information Primary Emergency Contact: BRUNILDA ARANDA Mobile Relation: Daughter Supportive: Yes Other Important Patient Contacts: None Caregiver Assessment: Caregiver is ready, willing and able to meet the patient's needs as recommended by the inter-professional team? No Caregiver Needed Patient's transition needs and plan for meeting these needs: OZ following hospital course and POC for any discharge needs. Does the patient have an acute stroke diagnosis, or has the patient had a stroke during this admission? No Medication Adherence: I am convinced of the importance of my prescription medication: Agree completely - 0 I worry that my prescription medication will do more harm than good to me Disagree completely - 0 I feel financially burdened by my uaj-ai-anjvux expenses for my prescription medication: Disagree completely - 0 Patient is categorized as low risk < 2 Is the Patient Psychosocially Complex? No ASSESSMENT AND PLAN: Medical Needs: 2 or more chronic diseases Psychosocial Needs: None FREEDOM OF CHOICE EXPLAINED: N/A POTENTIAL TRANSITION PLANS Home Pt is a 58 Y/M who is POD #1 s/p 1) robotic assisted left partial nephrectomy, umbilical hernia repair. SW met with patient at bedside to discuss possible discharge needs. Patient was alert and oriented and engaged with questioning. Pt is from home with son and was independent prior to admission to the hospital. Per AM team sign out, Pt to be D/C on 12/24/2018. No skilled needs identified at this time. Pt to be transported home via family auto. CM following. SIGNATURE: KAREN Diehl, NEENA PATIENT NAME: Clarence Flores DATE: December 23, 2018 TIME: 4:24 PM PAGER/CONTACT #: Normal [facility] CBC and Differentialon 12-23 Abs Baso 0.03 k/uL Normal <0.11 [facility] Comment on above: Performed By: #### C KAREL BMP ####[facility] [place], [place] [phone] Abs Douglas 1.36 k/uL High <0.87 [facility] Comment on above: Performed By: #### C KAREL, BMP ####[facility] [address], [place] [phone] Abs Neut 16.73 k/uL High 1.45-7.50 [facility] Comment on above: Performed By: #### Pablo VINSON BMP ####[facility] [place], [place] [phone] Absolute nRBC <0.01 Normal <0.01 [facility] Comment on above: Performed By: #### C KAREL, BMP ####[place] [address] AveClevelandCar[place] [phone] Basophils/100 WBC (Bld) 0.2 % Normal [facility] Comment on above: Performed By: #### C BCDIF, BMP ####[place] [address] [place] [phone] DTYPE Auto Diff Normal [facility] Comment on above: Performed By: #### C BCDIF, BMP ####[place] [address] [place] [phone] Eosinophils (Bld) [#/Vol] 10*3/uL Normal <0.46 [facility] Comment on above: Performed By: #### C BCDIF, BMP ####[place] [address] [place] [phone] Eosinophils/100 WBC (Bld) 0.0 % Normal [facility] Comment on above: Performed By: #### C BCDIF, BMP ####[place] [address] [place] [phone] Erythrocyte distribution width (RBC) [Ratio] 13.3 % Normal 11.5-15.0 [facility] Comment on above: Performed By: #### C BCDIF, BMP ####[place] [address] [place] [phone] Hematocrit (Bld) [Volume fraction] 46.4 % Normal 39.0-51.0 [facility] Comment on above: Performed By: #### C BCDIF, BMP ####[place] [address] AveClevelSummer [place] [phone] Hemoglobin (Bld) [Mass/Vol] 15.3 g/dL Normal 13.0-17.0 [facility] Comment on above: Performed By: #### C BCDIF, BMP ####[place] [address] [place] [phone] Lymphocytes (Bld) [#/Vol] 0.94 10*3/uL Low 1.00-4.00 [facility] Comment on above: Performed By: #### C BCDIF, BMP ####[place] [address]CS[address], [place] [phone] Lymphocytes/100 WBC (Bld) 4.9 % Normal [facility] Comment on above: Performed By: #### C BCDIF, BMP ####[place] [address], [place] [phone] MCH (RBC) [Entitic mass] 28.2 pG Normal 26.0-34.0 [facility] Comment on above: Performed By: #### C BCDIF, BMP ####[place] [address] [place] [phone] MCHC (RBC) [Mass/Vol] 33.0 g/dL Normal 30.5-36.0 [facility] Comment on above: Performed By: #### C BCDIF, BMP ####[place] [address], [place] [phone] MCV (RBC) [Entitic vol] 85.5 fL Normal 80.0-100.0 [facility] Comment on above: Performed By: #### C BCDIF, BMP ####[place] [address] [place] [phone] Monocytes/100 WBC (Bld) 7.1 % Normal [facility] Comment on above: Performed By: #### C BCDIF, BMP ####[place] [address], [place] [phone] Neutrophils/100 WBC (Bld) 87.8 % Normal [facility] Comment on above: Performed By: #### C BCDIF, BMP ####[place] [address], [place] [phone] NRBCs 0.0 /100 WBC Normal 0 [facility] Comment on above: Performed By: #### C BCDIF, BMP ####[facility] [place], [place] [phone] Platelet mean volume (Bld) [Entitic vol] 9.5 fL Normal 9.0-12.7 [facility] Comment on above: Performed By: #### C BCDIF, BMP ####[place] [address] [place], [place] [phone] Platelets (Bld) [#/Vol] 315 10*3/uL Normal 150-400 [facility] Comment on above: Performed By: #### C BCDIF, BMP ####[address] [place], [place] [phone] RBC (Bld) [#/Vol] 5.43 10*6/uL Normal 4.20-6.00 [facility] Comment on above: Performed By: #### C BCDIF, BMP ####[address] [place], [place] [phone] WBC (Bld) [#/Vol] 19.06 10*3/uL High 3.70-11.00 [facility] Comment on above: Performed By: #### C BCDIF, BMP ####[place] [address] [place], [place] [phone] PROGRESSon 12-23-2018 PROGRESS HNO ID: [id number] Author: Clarence (Geovanna Schmidt Service: Urology Author Type: Resident Type: Progress Notes Filed: 12/23/2018 8:40 AM Note Text: [facility] UROLOGY PROGRESS NOTE Name: Clarence Flores Bed: G090 035/[id number] Date: December 23, 2018 After Hours [facility] Service Pager: [phone] ASSESSMENT AND PLAN Clarence Flores is a 58 year old male with history of left renal mass now POD#1 s/p left robotic partial nephrectomy and umbilical hernia repair ? Interval: Doing ok. Some sinus irritation. Abdominal pain slightly improved. No flatus yet. Mildly tachycardic. UOP adequate. WBC bumped slightly. ? Active Problems Renal Neoplasm: Suspected malignancy, Pathology Pending - await path TONY - not on CPAP HTN Umbilical hernia - s/p repair Suspected BPH - q2hr nocturnal frequency, required coude in [place] - start flomax tonight in anticipation of TOV Leukocytosis - Likely reactive, but will watch for fevers or clinical changes Tachycardia - pain vs underresuscitation - monitor closely, continue IVF Sinus irritation - Saline spray, cepacol Pain - controlled Jacques - Present - TOV later today if doing well Fluids - 100/hr Diet - Clear liquid diet - reg diet later today if doing well (late lunch) Activity - OOB to chair and Ambulate with assistance DVT prophylaxis - Pharmacologic DVT prophylaxis contraindicated due to bleeding risk Antibiotics - Perioperative antibiotics - ancef - completed Discharge planning - Pending course ? SUBJECTIVE -Feels ok -Some sinus irritation -Pain: Controlled -N/V: No - hungry -Bowel function: not yet -Ambulating: No Objective Vital Signs BP 166/82 Pulse 105 Temp 37.6 ?C (99.7 ?F) (Oral) Resp 18 Ht 167.6 cm (5' 6 ) Wt 119.7 kg (264 lb) SpO2 94% BMI 42.61 kg/m? Body mass index is 42.61 kg/m?. Input and Output Intake/Output Summary (Last 24 hours) at 12/23/2018 0834 Last data filed at 12/23/2018 0611 Gross per 24 hour Intake 4697 ml Output 1600 ml Net 3097 ml Urine output 1.6L clear Drains 30cc ss Physical Exam General: Well-appearing, no acute distress CV: RRR, no m/g/r Lungs: Clear to auscultation bilaterally Abdomen: Appropriately tender, abdominal exam improved - monitor closely Wound: Binder in place, dressing c/d/i : Jacques catheter present and Urine clear Extremities: Normal. No cyanosis, clubbing, or edema Recent Labs 12/23/18 0020 12/22/18 1302 12/22/18 1135 WBC 19.06* -- 15.64* HB 15.3 -- 15.4 HCT 46.4 -- 46.4 PLT 315 -- 263 NA 137 -- 138 K 4.0 4.2 5.5* CHLOR 102 -- 105 CO2 21* -- 23 BUN 11 -- 9 CREAT 1.31* -- 1.17 GLUC 121* -- 168* Imaging n/a Clarence Schmidt MD Personal Pager: [phone] For weekend or after hours issues [place] [phone] Normal [facility] ANES Ferny 12-22-2018 ANES POST HNO ID: [id number] Author: Salvatore Lacey Service: Anesthesiology Author Type: Anesthesiologist Type: Anesthesia PostOp Filed: 12/22/2018 12:16 PM Note Text: POST ANESTHESIA EVALUATION NOTE SERVICE DATE: 12/22/2018 SERVICE TIME: 11:45 : 1960 Vitals: 12/22/18 0640 12/22/18 1130 Temp: 36.4 ?C (97.5 ?F) 36.1 ?C (97 ?F) 12/22/18 0640 12/22/18 1130 12/22/18 1145 12/22/18 1200 BP: 177/87 158/79 145/78 145/77 12/22/18 0640 12/22/18 1130 12/22/18 1145 12/22/18 1200 Pulse: 66 67 69 63 12/22/18 0640 12/22/18 1130 12/22/18 1145 12/22/18 1200 Resp: 16 15 13 13 12/22/18 0640 12/22/18 1130 12/22/18 1145 12/22/18 1200 SpO2: 94% 93% 95% 98% Validated Vital Signs: Yes POST ANES STATUS: No apparent anesthetic complications. The patient is appropriately hydrated with stable respiratory and cardiovascular status. Patient has safe and adequate airway control. The patient has appropriate pain relief and no significant post operative nausea or vomiting. The patient has achieved baseline mental status. Intra-Operative Events: See the [facility] record for the event detail Further assessment by Anesthesia Service: None Other Remarks: SIGNATURE: Salvatore Lacey MD PATIENT NAME: Clarence Flores DATE: December 22, 2018 TIME: 12:16 PM PAGER/CONTACT #: [phone] [facility] Basic Metabolic Panlon 11-12 -2019 Anion gap [Moles/Vol] 10 mmol/L Normal 9-18 [facility] Comment on above: Performed By: #### C KAREL, BMP ####[place] [address], [place] [phone] Calcium [Mass/Vol] 8.0 mg/dL Low 8.5-10.2 [facility] Comment on above: Performed By: #### Pablo VINSON, BMP ####[place] [address] [place] [phone] Chloride [Moles/Vol] 105 mmol/L Normal 97-105 [facility] Comment on above: Performed By: #### C KAREL, BMP ####[place] [address], [place] [phone] CO2 [Moles/Vol] 23 mmol/L Normal 22-30 [facility] Comment on above: Performed By: #### Pablo VINSON, BMP ####[place] [address], [place] [phone] Creatinine [Mass/Vol] 1.17 mg/dL Normal 0.73-1.22 [facility] Comment on above: Performed By: #### Pablo VINSON, BMP ####[place] [address], [place] [phone] eGFR- Amer. >60 Normal [facility] Comment on above: Performed By: #### C KAREL, BMP ####[place] [address], [place] [phone] GFR/1.73 sq M predicted among non-blacks MDRD (S/P/Bld) [Vol rate/Area] mL/min/{1.73_m2} Normal [facility] Comment on above: Result Comment: eGFR (Estimated GFR) Units of measure: mL/min/1.73 meters squared eGFR is derived from the reexpressed MDRD Study equation using the following parameters: serum creatinine, age, gender and race. The creatinine assay has been calibrated to be traceable to IDMS. An eGFR <60 mL/min/1.73m2 for >3 months is consistent with chronic kidney disease. Refer to KDOQI guidelines for clinical interpretation. In patients with unstable renal function, e.g. those with acute kidney injury, the eGFR may not accurately reflect actual GFR. Performed By: #### C BCDIF, BMP ####[facility] [place], [place] [phone] Glucose [Mass/Vol] 168 mg/dL High 74-99 [facility] Comment on above: Result Comment: The [place] Diabetes Association (ADA) provides guidance for cutoff values for fasting glucose and random glucose. The ADA defines fasting as no caloric intake for at least 8 hours. Fasting plasma glucose results between 100 to 125 mg/dL indicate increased risk for diabetes (prediabetes). Fasting plasma glucose results greater than or equal to 126 mg/dL meet the criteria for diagnosis of diabetes. In the absence of unequivocal hyperglycemia, results should be confirmed by repeat testing. In a patient with classic symptoms of hyperglycemia or hyperglycemic crisis, random plasma glucose results greater than or equal to 200 mg/dL meet the criteria for diagnosis of diabetes. Reference: Standards of Medical Care in Diabetes 2016, [place] Diabetes Association. Diabetes Care. 2016.39(Suppl 1). Performed By: #### C BCDIF, BMP ####[facility], [place] [phone] Potassium [Moles/Vol] 5.5 mmol/L High 3.7-5.1 [facility] Comment on above: Result Comment: Resu lts may be falsely increased due to interference by hemolysis. Suggest reorder as clinically indicated. Performed By: #### C BCDIF, BMP ####[facility], [place] [phone] Sodium [Moles/Vol] 138 mmol/L Normal 136-144 [facility] Comment on above: Performed By: #### C BCDIF, BMP ####[facility] [place], [place] [phone] Urea nitrogen [Mass/Vol] 9 mg/dL Normal 9-24 [facility] Comment on above: Performed By: #### C KAREL, BMP ####[place] [address] [place] [phone] CBC and Differentialon 12-22 Abs Baso 0.07 k/uL Normal <0.11 [facility] Comment on above: Performed By: #### C BCKATLYNF, BMP ####[place] [address] [phone] Abs Douglas 0.89 k/uL High <0.87 [facility] Comment on above: Performed By: #### C BCKRYSTAL, BMP ####[place] [address] [place] [phone] Abs Neut 13.53 k/uL High 1.45-7.50 [facility] Comment on above: Performed By: #### C KAREL, BMP ####[place] [address] [phone] Absolute nRBC <0.01 Normal <0.01 [facility] Comment on above: Performed By: #### C KAREL, BMP ####[place] [address] [phone] Basophils/100 WBC (Bld) 0.4 % Normal [facility] Comment on above: Performed By: #### C BCKRYSTAL, BMP ####[place] [address] [phone] DTYPE Auto Diff Normal [facility] Comment on above: Performed By: #### C BCDIF, BMP ####[place] [address] [phone] Eosinophils (Bld) [#/Vol] 0.06 10*3/uL Normal <0.46 [facility] Comment on above: Performed By: #### C BCKATLYNF, BMP ####[place] [address], [place] [phone] Eosinophils/100 WBC (Bld) 0.4 % Normal [facility] Comment on above: Performed By: #### C BCDIF, BMP ####[place] [address], [place] [phone] Erythrocyte distribution width (RBC) [Ratio] 13.6 % Normal 11.5-15.0 [facility] Comment on above: Performed By: #### C BCDIF, BMP ####[place] [address], [place] [phone] Hematocrit (Bld) [Volume fraction] 46.4 % Normal 39.0-51.0 [facility] Comment on above: Performed By: #### C BCDIF, BMP ####[place] [address] [place] [phone] Hemoglobin (Bld) [Mass/Vol] 15.4 g/dL Normal 13.0-17.0 [facility] Comment on above: Performed By: #### C BCDIF, BMP ####[place] [address], [place] [phone] Lymphocytes (Bld) [#/Vol] 1.09 10*3/uL Normal 1.00-4.00 [facility] Comment on above: Performed By: #### C BCDIF, BMP ####[place] [address], [place] [phone] Lymphocytes/100 WBC (Bld) 7.0 % Normal [facility] Comment on above: Performed By: #### C BCDIF, BMP ####[place] [address], [place] [phone] MCH (RBC) [Entitic mass] 28.7 pG Normal 26.0-34.0 [facility] Comment on above: Performed By: #### C BCDIF, BMP ####[place] [address], [place] [phone] MCHC (RBC) [Mass/Vol] 33.2 g/dL Normal 30.5-36.0 [facility] Comment on above: Performed By: #### C BCDIF, BMP ####[place] [address], [place] [phone] MCV (RBC) [Entitic vol] 86.4 fL Normal 80.0-100.0 [facility] Comment on above: Performed By: #### C BCDIF, BMP ####[place] [address], [place] [phone] Monocytes/100 WBC (Bld) 5.7 % Normal [facility] Comment on above: Performed By: #### C BCDIF, BMP ####[place] [address], [place] [phone] Neutrophils/100 WBC (Bld) 86.5 % Normal [facility] Comment on above: Performed By: #### C BCDIF, BMP ####[place] [address], [place] [phone] NRBCs 0.0 /100 WBC Normal 0 [facility] Comment on above: Performed By: #### C BCDIF, BMP ####[place] [address], [place] [phone] Platelet mean volume (Bld) [Entitic vol] 9.8 fL Normal 9.0-12.7 [facility] Comment on above: Performed By: #### C BCDIF, BMP ####[place] [address], [place] [phone] Platelets (Bld) [#/Vol] 263 10*3/uL Normal 150-400 [facility] Comment on above: Performed By: #### C BCDIF, BMP ####[place] [address], [place] [phone] RBC (Bld) [#/Vol] 5.37 10*6/uL Normal 4.20-6.00 [facility] Comment on above: Performed By: #### C BCDIF, BMP ####[facility] [address], [place] [phone] WBC (Bld) [#/Vol] 15.64 10*3/uL High 3.70-11.00 [facility] Comment on above: Performed By: #### C BCDIF, BMP ####[facility] [address] [place], [place] [phone] CNCOon 12-22-2018 CNCO Letter Text Normal [facility] NURSING PROGon 12-22-2018 NURSING PROG HNO ID: [id number] Author: Yoly De Jesus RN Service: Nursing Author Type: Registered Nurse Type: Nursing Progress Note Filed: 12/22/2018 6:18 AM Note Text: PRE OP LEARNING ASSESSMENT PROCEDURE/SURGERY: SURGERY: logistics READINESS TO LEARN COGNITIVE ABILITY: Alert and oriented MOTIVATION TO LEARN: Interested FAMILY SUPPORT: High - Very involved in pt care PATIENT LEARNS BEST BY: Verbal Instruction FACTORS AFFECTING LEARNING: None PHYSICAL LIMITATIONS AFFECTING LEARNING: None Electronically Signed By: Yoly De Jesus RN MSN In Department: HOSP [facility] Normal [facility] OPERATIVE NOon 12-22-2018 OPERATIVE NO HNO ID: [id number] Author: Cyrus Justice Service: Urology Author Type: Resident Type: Operative Report Filed: 12/22/2018 11:07 AM Note Text: -- Attestation signed by Maico Ang at 12/22/2018 11:58 AM . -- OPERATIVE/PROCEDURE REPORT LOG ID: [id number] Surgery/Procedure Date: 12/22/2018 Incision/Procedure Start Time: 8:19 AM Incision Close/Procedure End Time: 10:48 AM Surgeon(s)/Proceduralist(s ) and Supervisor Component Assembler(s): Surgeon(s) and Role: * Maico Ang - Primary * Cyrus (Res) Reshma - Resident - Assisting * Ernesto (Res) Pina - Resident - Assisting No Additional Staff Procedure(s): 1) robotic assisted left partial nephrectomy 2) umbilical hernia repair Anesthesia: General Indications: 58 year old male with history of morbid obesity BMI 42, obstructive sleep apnea, HTN who presented with a 5.2cm left lower pole renal neoplasm concerning for malignancy. After discussion of risks, benefits, complications, and alternatives, patient elected to proceed with the above surgery. Findings: single artery and vein; ureter dissected away from tumor edge; tumor excised with grossly negative margins; entry into renal sinus fat; hemostatic renorrhaphy Procedure Details: Patient was brought to the operating room, and multidisciplinary surgical huddle confirmed the correct patient, operative plan, perioperative antibiotics, pertinent medical history, drug allergies, and necessary equipment. The above listed anesthesia was induced and perioperative antibiotics (ANCEF) were administered. Patient was placed in right lateral decubitus (LEFT SIDE UP) position, prepped, and draped in the usual sterile fashion. A skin incision was made in the lateral border of the rectus muscle in line with the 11th rib. A veress needle was used to gain access to the abdomen. After a negative aspiration and positive drop test, abdomen was insufflated with CO2. There was symmetric filling of all quadrants of the abdomen, with low initial filling pressures and adequate flow. After access was obtained, the 12-mm port was placed, and the camera was inserted. The abdomen was visually inspected, and there was no vascular nor intraabdominal injury. Under direct vision, two 8-mm robotic ports and one 12-mm airseal first assistant manager port were placed. The robot was then docked. The White line of Toldt was incised and left colon was mobilized off the lateral abdominal wall and reflected medially. The splenocolic and splenorenal ligaments were divided with electrocautery. The left gonadal vein and ureter were identified. Posterior to the ureter and gonadal, a plane was developed laterally onto the psoas muscle. This was used to lift the lower pole of the kidney. Dissection was carried cephalad to the renal vein. Gonadal vein was clipped and divided just below its insertion to the renal vein. A single renal artery was identified posterior to the vein and was mobilized. We then turned our attention to defatting the kidney. The ureter was dissected off the medial aspect of the tumor and was freed away from the edge of the kidney, thus allowing it to fall out of the field of tumor resection. The edges of the tumor were defatted down to renal capsule and tumor edges were clearly seen. The lower pole was mobilized fully in order to allow for manipulation of the tumor and to facilitate reconstruction. Next, we placed two short bulldog clamps on the renal artery. There was adequate ischemia to the kidney. The tumor was then excised. There was entry into the renal sinus fat. There were grossly negative margins. Ureter was uninjured during the resection. We then performed a two layer running renorrhaphy: inner vascular layer 2-0 vicryl SH needle, outer parenchymal renorrhaphy layer 0-vicryl CT-1 needle baseball suture with hemolock clips on each parenchymal exit site. The bulldogs were released. Renorrhaphy was hemostatic. Hilum was inspected and was hemostatic. All needles were removed. Gerota's was reapproximated over the renorrhaphy using two weck clips. A 10-flat SHELBY drain was placed through the caudal robotic port and secured to the skin with a nylon suture. Specimen was placed in an endocatch bag. The 12mm camera port was closed with a devan chanel device vicryl suture. Remaining ports were removed under vision. We then extended our 12mm first assistant manager port site cephalad and extracted our specimen through this. We then mobilized his umbilical hernia sac. Herniated mesentery was delivered out of the hernia sac and sac dissected completely free off the skin. The fascia was then closed using interrupted [id number] 0-prolene sutures. 3-0 vicryl was used to tack the umbilical skin down to the fascia in order to reconstruct the umbilicus. Deep dermal was then run with 3-0 vicryl. Skin incisions were closed with running subcuticular 4-0 vicryl. Skin glue was applied and local anesthetic was infiltrated. Dressing was applied around the drain. The patient was awakened from anesthesia and taken to the recovery room in stable condition. Pre-Op/Pre-Procedure Diagnosis: left renal neoplasm Post-Op/Post-Procedure Diagnosis: same Estimated Blood Loss: 100 cc Specimens: Specimen ID Type Site Comments Sent To 1.left renal neoplasm Tissue Kidney taken by [facility] Pathology Routine 2.hernia sac Tissue taken by [facility] Pathology Routine Implantable Devices: None Drains: 10-flat SHELBY drain and jacques catheter (18-dominican coude with 10cc balloon) Complications: None Accidental Punctures/Lacerations: None Operation: Procedure(s) (LRB): ROBOTIC LAPAROSCOPIC NEPHRECTOMY PARTIAL (Left) Anatomic Site: Kidney, Laterality: Left Approach: Robotic Device: None Qualifier: None Dr. Ang performed the procedure with assistance with the exception of skin closure which was performed with Dr. Ang immediately available SIGNATURE: Cyrus Justice MD PATIENT NAME: Clarence Flores DATE: December 22, 2018 TIME: 10:48 AM PAGER/CONTACT #: [phone] [facility] PRO[facility]on 12-22-2018 PROGRESS HNO ID: [id number] Author: Clarence Schmidt Service: Urology Author Type: Resident Type: Progress Notes Filed: 12/22/2018 4:14 PM Note Text: [facility] UROLOGY PROGRESS NOTE Name: Clarence Flores Bed: [id number]/[id number] Date: December 22, 2018 After Hours [facility] Urology Service Pager: [phone] ASSESSMENT AND PLAN Clarence Flores is a 58 year old male with history of left renal mass now Day of Surgery s/p left robotic partial nephrectomy and umbilical hernia repair Interval: Doing well. Pain controlled. Active Problems Renal Neoplasm: Suspected malignancy, Pathology Pending - await path TONY - not on CPAP HTN Umbilical hernia - s/p repair Suspected BPH - q2hr nocturnal frequency, required coude in OR - start flomax tonight in anticipation of TOV Pain - controlled Jacques - Present - to remain overnight Fluids - 100/hr Diet - Clear liquid diet Activity - OOB to chair and Ambulate with assistance DVT prophylaxis - Pharmacologic DVT prophylaxis contraindicated due to bleeding risk Antibiotics - Perioperative antibiotics - ancef Discharge planning - Pending course SUBJECTIVE -Doing ok -Pain: Controlled marginally well -N/V: Intermittent nausea -Bowel function: not yet -Ambulating: No Objective Vital Signs BP 152/92 Pulse 84 Temp 36.4 ?C (97.5 ?F) (Oral) Resp 20 Ht 167.6 cm (5' 6 ) Wt 119.7 kg (264 lb) SpO2 93% BMI 42.61 kg/m? Body mass index is 42.61 kg/m?. Input and Output Intake/Output Summary (Last 24 hours) at 12/22/2018 1557 Last data filed at 12/22/2018 1516 Gross per 24 hour Intake 2950 ml Output 855 ml Net 2095 ml Urine output 150/hr Drains 5cc ss Physical Exam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 who present for a left renal mass that was initially noted on outside CT during work up for LLQ pain that brought him his local ED. Diagnosed with diverticulosis and treated . Denies any voiding complaints. No significant voiding LUTS. DTF every 2 hours. No dysuria or gross hematuria. CT of chest done recently. No reports available. Unaware of any family h/o cancer. No tobacco hx Outside CT abd 11/05/18 Conclusion: 5.2 cm enhancing mass lower pole left kidney. Histopathologic diagnosis is required. I favor malignancy. Outside CT abd/pelvis w/o contrast 10/05/18 Conclusion: 1. Colonic diverticulosis without acute diverticulitis 2. Cholelithiasis without acute cholecystitis. 3. Heterogeneous left renal mass vs complex cyst. Appearance is concerning for neoplastic mass. CT imaging with IV contrast is recommended for comparison. LABS No results found for: PSA No results found for: CREAT PAST MEDICAL HISTORY Diagnosis Date - Gallstones - HTN (hypertension) - Left renal mass - Umbilical hernia PAST SURGICAL HISTORY Procedure Laterality Date - NONE Social History Socioeconomic History Marital status: Single Spouse name: Not on file Number of children: Not on file Years of education: Not on file Highest education level: Not on file Occupational History Not on file Social Needs Financial resource strain: Not on file Food insecurity: Worry: Not on file Inability: Not on file Transportation needs: Medical: Not on file Non-medical: Not on file Tobacco Use Smoking status: Not on file Substance and Sexual Activity Alcohol use: Not on file Drug use: Not on file Sexual activity: Not on file Lifestyle Physical activity: Days per week: Not on file Minutes per session: Not on file Stress: Not on file Relationships Social connections: Talks on phone: Not on file Gets together: Not on file Attends church service: Not on file Active member of club or organization: Not on file Attends meetings of clubs or organizations: Not on file Relationship status: Not on file Intimate partner violence: Fear of current or ex partner: Not on file Emotionally abused: Not on file Physically abused: Not on file Forced sexual activity: Not on file Other Topics Concerns: Not on file Social History Narrative Not on file REVIEW OF SYSTEMS: CONSTITUTIONAL: Patient reports no recent fever or weight loss EYES: Negative for redness, blurry vision, double vision or loss of vision EAR, NOSE AND THROAT: DENIES HAVING: Sore throat Dysphagia Odynophagia Hoarseness CARDIOVASCULAR: Negative for chest pain, leg swelling and palpitations RESPIRATORY: (+)SOB; TONY-recently diagnosed; Negative for cough, hemoptysis, wheezing, COPD, dyspnea. GI: No nausea, vomiting, or diarrhea; diverticulosis MUSCULOSKELETAL: b/l shoulder pain; OA in multiple joints; (+)chronic back pain; no muscular weakness SKIN: Negative for lesions, rash, and itching PSYCH: Negative for sleep disturbance, mood disorder and recent psychosocial stressors. HEMATOLOGY/LYMPHOLOGY Negative for prolonged bleeding, bruising easily or swollen nodes ENDOCRINE: Negative for cold or heat intolerance, polyuria, polydipsia and goiter ALLERGY/IMMUNOLOGIC: Nitroglycerin All other reviewed and negative other than HPI. PHYSICAL EXAM: constitutional: appears healthy in no acute distress, obese cardiovascular: RRR, no M/R/G respiratory: normal respiratory motion, CTAB gi: abdomen soft, (+)LLQ tenderness without masses, (+)umbilical hernia--nontender; no organomegaly gu: deferred to Staff skin: no rashes or bruises noted. Neck: Supple, no adenopathy; thyroid symmetric, normal size, no bruits Extremities: Extremities normal. No deformities, edema, or skin discoloration. Good capillary refill. Lymphatic: No palpable lymph nodes. Neuro: Gait normal. Sensation grossly intact. IMPRESSION: Left renal mass PLAN: Per Staff Benton Dillon PA-C Pager [phone] Office [phone] I saw and evaluated the patient; the history and exam were reviewed with the PA/resident and confirmed by me; and the plan is outlined below. healthy 58 yr obese male with L lower pole [address] reviewed [facility] pt and family rec attempt RPNx they agree to proceed, will schedule Maico Ang MD Previous Version [facility] PROGRESSon 11-26-2018 PROGRESS HNO ID: [id number] Author: Maico Ang Service: ? Author Type: Physician Type: Progress Notes Filed: 11/29/2018 6:01 AM Note Text: [facility] NEW PATIENT HISTORY AND PHYSICAL EXAM PATIENT INFO: Clarence Flores 58 year old REFERRING M.D.: Damien Sales MD [address] [place] [address] CHIEF COMPLAINT: left renal mass 58 y/o male who present for a left renal mass that was initially noted on outside CT during work up for LLQ pain that brought him his local ED. Diagnosed with diverticulosis and treated . Denies any voiding complaints. No significant voiding LUTS. DTF every 2 hours. No dysuria or gross hematuria. CT of chest done recently. No reports available. Unaware of any family h/o cancer. No tobacco hx Outside CT abd 11/05/18 Conclusion: 5.2 cm enhancing mass lower pole left kidney. Histopathologic diagnosis is required. I favor malignancy. Outside CT abd/pelvis w/o contrast 10/05/18 Conclusion: 1. Colonic diverticulosis without acute diverticulitis 2. Cholelithiasis without acute cholecystitis. 3. Heterogeneous left renal mass vs complex cyst. Appearance is concerning for neoplastic mass. CT imaging with IV contrast is recommended for comparison. LABS No results found for: PSA No results found for: CREAT PAST MEDICAL HISTORY Diagnosis Date - Gallstones - HTN (hypertension) - Left renal mass - Umbilical hernia PAST SURGICAL HISTORY Procedure Laterality Date - NONE Social History Socioeconomic History Marital status: Single Spouse name: Not on file Number of children: Not on file Years of education: Not on file Highest education level: Not on file Occupational History Not on file Social Needs Financial resource strain: Not on file Food insecurity: Worry: Not on file Inability: Not on file Transportation needs: Medical: Not on file Non-medical: Not on file Tobacco Use Smoking status: Not on file Substance and Sexual Activity Alcohol use: Not on file Drug use: Not on file Sexual activity: Not on file Lifestyle Physical activity: Days per week: Not on file Minutes per session: Not on file Stress: Not on file Relationships Social connections: Talks on phone: Not on file Gets together: Not on file Attends church service: Not on file Active member of club or organization: Not on file Attends meetings of clubs or organizations: Not on file Relationship status: Not on file Intimate partner violence: Fear of current or ex partner: Not on file Emotionally abused: Not on file Physically abused: Not on file Forced sexual activity: Not on file Other Topics Concerns: Not on file Social History Narrative Not on file REVIEW OF SYSTEMS: CONSTITUTIONAL: Patient reports no recent fever or weight loss EYES: Negative for redness, blurry vision, double vision or loss of vision EAR, NOSE AND THROAT: DENIES HAVING: Sore throat Dysphagia Odynophagia Hoarseness CARDIOVASCULAR: Negative for chest pain, leg swelling and palpitations RESPIRATORY: (+)SOB; TONY-recently diagnosed; Negative for cough, hemoptysis, wheezing, COPD, dyspnea. GI: No nausea, vomiting, or diarrhea; diverticulosis MUSCULOSKELETAL: b/l shoulder pain; OA in multiple joints; (+)chronic back pain; no muscular weakness SKIN: Negative for lesions, rash, and itching PSYCH: Negative for sleep disturbance, mood disorder and recent psychosocial stressors. HEMATOLOGY/LYMPHOLOGY Negative for prolonged bleeding, bruising easily or swollen nodes ENDOCRINE: Negative for cold or heat intolerance, polyuria, polydipsia and goiter ALLERGY/IMMUNOLOGIC: Nitroglycerin All other reviewed and negative other than HPI. PHYSICAL EXAM: constitutional: appears healthy in no acute distress, obese cardiovascular: RRR, no M/R/G respiratory: normal respiratory motion, CTAB gi: abdomen soft, (+)LLQ tenderness without masses, (+)umbilical hernia--nontender; no organomegaly gu: deferred to Staff skin: no rashes or bruises noted. Neck: Supple, no adenopathy; thyroid symmetric, normal size, no bruits Extremities: Extremities normal. No deformities, edema, or skin discoloration. Good capillary refill. Lymphatic: No palpable lymph nodes. Neuro: Gait normal. Sensation grossly intact. IMPRESSION: Left renal mass PLAN: Per Staff Benton Dillon PA-C Pager [phone] Office [phone] I saw and evaluated the patient; the history and exam were reviewed with the PA/resident and confirmed by me; and the plan is outlined below. healthy 58 yr obese male with L lower pole [address] reviewed DW pt and family rec attempt RPNx they agree to proceed, will schedule Maico Ang MD Normal [facility] Reminderson 11-23-2018 Reminders - From: Jackie Lundberg To: EU - Clinical; Sent: 11/17/2018 14:19:41 EDT Show up: 11/20/2018 08:00:00 EDT Subject: ct scan and PSA f/t Due Date/Time: 11/23/2018 14:19:00 EDT Reminder/Recall SHOW PW results of Ct scan of chest with contrast and PSA free and total done 11/20/18 at [facility] PT TO BE CALLED WITH RESULTS 11/20/18- [facility]- Ct scan of chest with contrast, PSA free and total, and bun/creatinine @ 8:45am, Orders faxed 4 hour fast prior Pt having PSA free and total due to PSA being elevated 08/14/18 4.19 per PRW/LG From: Carla ARGUELLES, La Medrano (EU - Clinical) To: MÓNICA SARAH, Damien Bailey; Sent: 11/23/2018 13:01:12 EDT Show up: 11/23/2018 13:01:00 EDT Subject: RE: ct scan and PSA f/t Please review CT Chest w/ & PSA F/T both done 11/20/18. Pt last seen in our office 11/16/18. Per that encounter Will have Dr Horn see pt for possible robotic partial Lt nephrectomy Pt was referred to Dr Ang for second opinion in regards to Lt Renal Mass. I do not see a follow up scheduled in our office at this time. Normal [facility] OT-CT CHEST W CON IMPORTon 1 OT-CT CHEST W CON IMPORT Images were obtained outside of [facility] [id number] Normal [facility] OT-CT ABDOMEN WO/W CON IMPOR Ton 11-05-2018 OT-CT ABDOMEN WO/W CON IMPORT Images were obtained outside of [facility] [id number] Normal [facility] CT-CT ABD/PELVIS WO CON IMPO RTon 10-05-2018 CT-CT ABD/PELVIS WO CON IMPORT Images were obtained outside of [facility] [id number] Normal [facility] Vital Signs Date Time Vital Sign Value Performing Clinician Facility 04-23-2023 15:37-0400 Body mass index (BMI) [Ratio] 40.84 kg/m2 Andra Ramirez [employer] Work Phone: [facility] 04-23-2023 15:37-0400 Body weight 114.76 kg Andra Ramirez [employer] Work Phone: [facility] 04-23-2023 15:37-0400 Diastolic blood pressure 70 mm[Hg] Andra Ramirez [employer]ATION [employer] Work Phone: [facility] 04-23-2023 15:37-0400 Heart rate 82 /min Andra Ramirez [employer]ATION [employer] Work Phone: [facility] 04-23-2023 15:37-0400 Systolic blood pressure 112 mm[Hg] Andra Ramirez [employer]ATION [employer]ER Work Phone: [facility] 01-22-2023 15:36-0500 Body height 167.6 cm Andra Ramirez [employer]ATION [employer]ER Work Phone: [facility] 01-22-2023 15:36-0500 Body mass index (BMI) [Ratio] 44.87 kg/m2 Andra Ramirez [employer]ATION [employer] Work Phone: [facility] 01-22-2023 15:36-0500 Body weight 126.1 kg Andra Ramirez [employer]ATION [employer] Work Phone: [facility] 01-22-2023 15:36-0500 Diastolic blood pressure 98 mm[Hg] Andra Ramirez [employer]ATION [employer] Work Phone: [facility] 01-22-2023 15:36-0500 Heart rate 76 /min Andra Ramirez [employer]ATION [employer] Work Phone: [facility] 01-22-2023 15:36-0500 Systolic blood pressure 168 mm[Hg] Andra Ramirez [employer]ER[employer]ATION [employer]ER Work Phone: [facility] 2022 04:47-0400 Diastolic blood pressure 67 mm[Hg] MD Shea Beach Work Phone: [facility] 2022 04:47-0400 Heart rate 72 /min MD Shea Beach Work Phone: [facility] 2022 04:47-0400 Respiratory rate 20 /min MD Shea Beach Work Phone: [facility] 2022 04:47-0400 SaO2% (BldA) [Mass fraction] 96 % MD Shea Beach Work Phone: [facility] 2022 04:47-0400 Systolic blood pressure 147 mm[Hg] MD Shea Beach Work Phone: [facility] 11-09-2022 22:35-0400 Body height 167.64 cm MD Shea Beach Work Phone: [facility] 11-09-2022 22:35-0400 Body temperature 98 [degF] MD Shea Beach Work Phone: [facility] 11-09-2022 22:35-0400 Body weight 129.8 kg MD Shea Beach Work Phone: [facility] Encounters Encounter Date Encounter Type Care Provider Facility Start: 04-23-2023 End: 04-23-2023 Office outpatient visit 10 minutes Andra Ramirez [employer] Work Phone: [facility] Comment on above: BMI 40.0-44.9, adult ([facility]) (Primary Dx); Essential hypertension Start: 01-22-2023 End: 01-22-2023 Office outpatient visit 15 minutes Andra Ramirez [employer] Work Phone: [facility] Comment on above: Essential hypertensi on (Primary Dx); Chest pain, unspecified type; Obstructive sleep apnea; Diabetes mellitus type II, non insulin dependent ([facility]); Hypertensive left ventricular hypertrophy, without heart failure; BMI 40.0-44.9, adult (CMS/HCC) Start: 12-16-2022 End: 12-16-2022 Subsequent hospital visit by physician Gema Baltazar Stress Room 1 [facility] Start: 2022 End: 11-12-2022 ambulatory Claudia Parra Facility:[facility] Start: 2022 Evaluation and manag ement of inpatient MD Shea Beach Work Phone: [facility] Work Phone: Start: 2022 observation encounter MD Ewa Beach Work Phone: [facility] Work Phone: Start: 11-24-2021 End: 11-25-[address] SHEA BEACH Facility:[facility] Start: 11-07-2021 Encounter for genera l adult medical examination without abnormal findings DR SHEA BEACH [facility] Start: 11-03-2021 End: 11-03-[address] SHEA BEACH Facility:[facility] Start: 11-03-2021 End: 11-03-2021 Encounter for general adult medical examination without abnormal findings DR SHEA BEACH Facility:[facility] Start: 10-31-2021 End: 10-31-[address] SHEA BEACH Facility:[facility] Start: 05-04-2021 End: 05-05-[address] SHEA BEACH Facility:[facility] Start: 04-12-2021 End: 04-13-[address] SHEA BEACH Facility:[facility] Start: 04-10-2021 End: 04-11-[address] SHEA BEACH Facility:[facility] Start: 04-09-2021 End: 04-10-[address] SHEA BEACH Facility:[facility] Start: 03-27-2021 End: 03-28-[address] SHEA BEACH Facility:[facility] Start: 03-25-2021 End: 03-25-2021 ambulatory MIKE RADFORD Facility:[facility] Start: 03-24-2021 End: 03-25-[address] SHEA BEACH Facility:[facility] Procedures Date Procedure Procedure Detail Performing Clinician Start: 12-17-2022 Cv strs tst xers&/or rx cont ecg trcg only Mike Moreols DO Work Phone: Start: 03-24-[address] ANA BEACH Comment on above: Performed By: #### C MP #### [facility] [address] [place], [place] [address] Dr. Sunny Ortez Start: 12-17-2018 Antibody screen Comment on above: Performed By: #### T [id number] ####[facility] [id number] [place], [place] [id number] Plan of Treatment Date Care Activity Detail Author Start: 01-20-2024 End: 01-20-2024 Patient encounter procedure 01/20/2024 3:30 PM EST Office Visit [facility] [address] [place] [address] Mike Morelos DO [address] [place] [address] [facility] Start: 03-25-2023 End: 03-25-2023 Patient encounter procedure 03/25/2023 3:30 PM EST Office Visit [facility] [address] [place] [address] Andra Ramirez, [employer]ATION [employer]ER [address] [place] [address] [facility] Start: 12-17-2022 End: 12-17-2022 Professional / ancillary services management [facility] Start: 2022 Blood chemistry [facility] Start: 2022 Hospital admission [facility] Start: 2022 End: 2022 [facility] Start: 2022 Plain chest X-ray XR chest 2V* [facility] Start: 2022 XR Chest 2 Views [facility] Start: 10-11-2022 Influenza vaccination Influenza Vaccine (#1) [facility] Start: 2012 Zoster Vaccines (1 of 2) Zoster Vaccines (1 of 2) [facility] Start: 1984 DTaP/Tdap/Td Vaccines (1 - Tdap) DTaP/Tdap/Td Vaccines (1 - Tdap) [facility] Start: 1981 Urine screening for protein Diabetes: Urine Protein Screening [facility] Start: 1980 Hepatitis C screening Hepatitis C Screening [facility] Start: 1972 Diabetic foot examination Diabetes: Foot Exam [facility] Start: 1972 Glaucoma screening Diabetes: Retinopathy Screening [facility] Start: 1968 Pneumococcal Vaccine: Pediatrics (0 to 5 Years) and At-Risk Patients (6 to 64 Years) (1 - PCV) Pneumococcal Vaccine: Pediatrics (0 to 5 Years) and At-Risk Patients (6 to 64 Years) (1 - PCV) [facility] Start: 11-11-1963 MMR Vaccines (1 of 1 - Standard series) MMR Vaccines (1 of 1 - Standard series) [facility] Start: 05-12-1963 COVID-19 Vaccine (#1) COVID-19 Vaccine (#1) [facility] Start: 1962 Hemoglobin A1c measurement Diabetes: Hemoglobin A1C [facility] Start: 1962 HIV screening HIV Screening [facility] Start: 1962 Lipid panel Lipid Panel [facility] Start: 1962 Screening for malignant neoplasm of colon [facility] Start: 1962 Yearly Adult Physical Yearly Adult Physical [facility] Anion gap measurement [facility] Calculated LDL cholesterol level [facility] Cholesterol.total/Ch oles terol in HDL [Mass Ratio] in Serum or Plasma [facility] Glucose measurement estimated from glycated hemoglobin [facility] NM Heart Perfusion W stress and W radionuclide IV Nuclear Stress Test Cardiac Nuclear Medicine Routine Chest pain, unspecified type 12/16/2022 8:08 AM EST [facility] Service Area Work Phone: VLDL cholesterol measurement [facility] Payers Date Payer Category Payer Self-pay 2022 Unknown [id number] 2022 Private Health Insurance [facility] Pablo [facility] [id number] 2022-Present P Phil Fermin [id number] [place] [id number] 2022 Unknown [id number] 1962 Unknown [id number] 93 1962 Unknown [id number] 93 1962 Unknown [id number] 93 1962 Unknown [id number] 93 1962 Unknown [id number] 93 1962 Unknown [id number] 93 1962 Unknown [id number] 93 1962 Unknown [id number] 93 1962 Unknown [id number] 93 1962 Unknown [id number] 93 1959 Unknown [id number] 1959 Unknown [id number] Unknown [place] BC/BS [id number] Unknown [id number] 31 Social History Date Type Detail Facility Start: 2022 End: 01-22-2023 Tobacco smoking status NHIS Never smoked tobacco (finding) [facility] Start: 1960 Sex Assigned At Male [facility] consumption unknown [facility] Work Phone: Start: 12-16-2022 Gender identity Identifies as male gender (finding) [facility] Work Phone: Start: 12-16-2022 Sexual orientation Heterosexual (finding) [facility] Work Phone: Start: 12-06-2022 End: 04-23-2023 Exposure to SARS-CoV-2 (event) Not sure [facility] Start: 01-22-2023 Tobacco use and exposure Smokeless tobacco non-user [facility] Work Phone: Start: 01-22-2023 End: 04-23-2023 Alcohol intake Lifetime non-drinker (finding) [facility] Work Phone: Start: 01-22-2023 End: 04-23-2023 History of Social function [facility] Work Phone: Start: 01-22-2023 End: 04-23-2023 Tobacco use panel [facility] Work Phone: Clinical Notes 01-22-2023 to 04-23-2023 SUGEY Tabares - 04/23/2023 3:30 PM EDTPatient InstructionsAssessment & Plan Note - SUGEY Tabares - 01/23/2023 12:01 PM SUGEY Donis - 01/22/2023 3:30 PM EST Note Date & Type Note Facility 04-23-2023 History of Present illness Narrative Subjective: Clarence Flores is a 62 y.o. male with hypertension. Patient presents to the office ambulatory with steady gait. Last evaluated in clinic by myself 2 weeks ago. At that time added spironolactone to medical regimen. He reports having lab work over the weekend, will need to request. He otherwise reports compliance with medication, denies any type of side effects. Blood pressure in the office today is optimal. Current Outpatient Medications Medication Sig Dispense Refill amLODIPine (Norvasc) 10 mg tablet Take 1 tablet (10 mg) by mouth once daily. 90 tablet 3 doxazosin (Cardura) 4 mg tablet Take 1 tablet (4 mg) by mouth every 12 hours. Jardiance 10 mg Take 1 tablet (10 mg) by mouth once daily. metFORMIN XR 500 mg 24 hr tablet Take 1 tablet (500 mg) by mouth once every 24 hours. metoprolol succinate XL (Toprol-XL) 25 mg 24 hr tablet Take 1.5 tablets daily (37.5mg) daily 135 tablet 0 Ozempic 0.25 mg or 0.5 mg (2 mg/3 mL) pen injector spironolactone (Aldactone) 25 mg tablet Take 1 tablet (25 mg) by mouth once daily. 30 tablet 11 valsartan (Diovan) 320 mg tablet Take 1 tablet (320 mg) by mouth once daily. 90 tablet 3 No current facility-administered medications for this visit. Hypertension ROS: taking medications as instructed, no medication side effects noted, no TIA's, no chest pain on exertion, no dyspnea on exertion, and no swelling of ankles. New concerns: None. Objective: BP 112/70 (BP Location: Left arm, Patient Position: Sitting) Pulse 82 Wt 115 kg (253 lb) BMI 40.84 kg/m Appearance alert, well appearing, and in no distress. General exam S1, S2 normal, no gallop, no murmur, chest clear, no JVD, no HSM, no edema. Lab review: Need to request her medical records . Assessment: Hypertension well controlled. Plan: Current treatment plan is effective, no change in therapy. Reviewed diet, exercise and weight control. Recommended sodium restriction. Annual follow-up Andra Ramirez MSN, [employer]ATION [employer]ER, PMHNP-[facility] Please excuse any errors in grammar or translation related to this dictation. Voice recognition software was utilized to prepare this document.. documented in this encounter [facility] Work Phone: 04-23-2023 Instructions SUGEY Tabares - 04/23/2023 3:30 PM EDT Please bring all medicines, vitamins, and herbal supplements with you when you come to the office. Prescriptions will not be filled unless you are compliant with your follow up appointments or have a follow up appointment scheduled as per instruction of your physician. Refills should be requested at the time of your visit. PLAN: Through informed decision making process incorporating patients unique circumstances, the following treatment plan will be initiated: 1. Prescription drug management of cardiovascular medication for efficacy, adherence to treatment, side effect assessment and polypharmacy. Current treatment clinically warranted and to continue without modifications. 2. Return for follow-up; in the interim, contact the office if new symptoms arise. Dr. Morelos 9 months documented in this encounter [facility] Work Phone: 01-23-2023 Evaluation + Plan note Associated Problem(s): BMI 40.0-44.9, adult (CMS/[facility]) Recently started treatment with Ozempic Weight is down 10 pounds Reviewed the merits of healthy lifestyle choices on overall cardiovascular health. [facility] Work Phone: 01-23-2023 Miscellaneous Notes Associated Problem(s): BMI 40.0-44.9, adult (CMS/HCC) Recently started treatment with Ozempic Weight is down 10 pounds Reviewed the merits of healthy lifestyle choices on overall cardiovascular health. Associated Problem(s): Obstructive sleep apnea Remains compliant with CPAP Associated Problem(s): Diabetes mellitus type II, non insulin dependent (CMS/HCC) On ARB No statin Unknown hemoglobin A1c Associated Problem(s): Hypertensive left ventricular hypertrophy, without heart failure November 2022 TTE LVEF greater than 70% LVH moderate MR trace Associated Problem(s): Essential hypertension He has been compliant with addition of doxazosin and valsartan since discharge. Reports PCP stopped hydrochlorothiazide. Remains elevated in office today Associated Problem(s): Cardiac and Vasculature November 2022 hospitalization for chest pressure, ruled out ACS. Inpatient echo EF greater than 70%, no wall motion abnormality. Subsequent December 2022 perfusion study no ischemia, no infarct. Completed 4 METS. EF 59%. documented in this encounter [facility] Work Phone: 01-23-2023 Evaluation + Plan note Associated Problem(s): Obstructive sleep apnea Remains compliant with CPAP [facility] Work Phone: 01-23-2023 Evaluation + Plan note Associated Problem(s): Diabetes mellitus type II, non insulin dependent ([facility]) On ARB No statin Unknown hemoglobin A1c [facility] Work Phone: 01-23-2023 Evaluation + Plan note Associated Problem(s): Hypertensive left ventricular hypertrophy, without heart failure November 2022 TTE LVEF greater than 70% LVH moderate MR trace [facility] Work Phone: 01-23-2023 Evaluation + Plan note Associated Problem(s): Essential hypertension He has been compliant with addition of doxazosin and valsartan since discharge. Reports PCP stopped hydrochlorothiazide. Remains elevated in office today [facility] Work Phone: 01-23-2023 Evaluation + Plan note Associated Problem(s): Cardiac and Vasculature November 2022 hospitalization for chest pressure, ruled out ACS. Inpatient echo EF greater than 70%, no wall motion abnormality. Subsequent December 2022 perfusion study no ischemia, no infarct. Completed 4 METS. EF 59%. [facility] Work Phone: 01-22-2023 History of Present illness Narrative Chief Complaint Doing fine Reason for Visit Patient presents to the office today for outpatient follow-up for hospital follow up. Patient was recently hospitalized at [facility]. The patient was seen in Cardiology consult with subsequent cardiovascular management by [facility]. Hospitalization records have been reviewed. Reason for Cardiology Consultation: Chest pressure, accelerated hypertension Consulting Pit Recorder: Dr. Morelos Cardiovascular testing: Echocardiogram, outpatient perfusion study Changes to cardiovascular medical regimen at time of discharge: Added Cardura 8 mg, valsartan 320 mg, hydrochlorothiazide Discharge disposition: Home This is initial in clinic evaluation at [facility] Presents today ambulatory with steady gait. Accompanied by significant other History of Present Illness Patient is a pleasant 62-year-old gentleman who presents to the office without voiced complaints. He denies any recurrence of his presenting symptoms of chest pressure. He overall reports feeling pretty good . He does not do any routine exercise, reportedly does a lot of walking and lifting at work. He denies any type of exertional symptoms. Recently started treatment with Ozempic and is working on weight loss. Continues to follow blood pressure at home is pretty consistently in the 160s. Most recent creatinine 1.39, potassium 3.6. Adhering to 2017 AHA/ACC Guideline for the Prevention, Detection, Evaluation, and Management of High Blood Pressure in Adults: - Encouraged primary lifestyle modifications including consumption of healthy diet, reduced sodium intake, moderation in alcohol intake, weight loss and increased physical activity. Patient reports that overall has no complaint(s) of chest pain, chest pressure/discomfort, exertional chest pressure/discomfort, fatigue, lower extremity edema, orthopnea, palpitations, and syncope Denies any change in exercise capacity or functional tolerance since last office visit. Cardiac risk profile: Treated hypertension - elevated Unknown lipid status Diabetes diagnosed approximately 1 year ago Non-smoker Negative family history premature coronary artery disease Discussed treatment options and importance of blood pressure control in the setting of LVH. Will add Norvasc, he has been educated on side effects. Otherwise I updated correct dosing his Diovan is 320 mg daily and Toprol is 37.5 mg daily Review of Systems Cardiovascular: Negative for chest pain, dyspnea on exertion, irregular heartbeat, leg swelling, near-syncope, orthopnea, palpitations, paroxysmal nocturnal dyspnea and syncope. Visit Vitals BP (!) 168/98 (BP Location: Right arm, Patient Position: Sitting) Pulse 76 Ht 1.676 m (5' 6 ) Wt 126 kg (278 lb) BMI 44.87 kg/m Smoking Status Never BSA 2.42 m Physical Exam Vitals and nursing note reviewed. Constitutional: Appearance: Normal appearance. Cardiovascular: Rate and Rhythm: Normal rate and regular rhythm. Heart sounds: Normal heart sounds. Pulmonary: Effort: Pulmonary effort is normal. Breath sounds: Normal breath sounds. Musculoskeletal: Cervical back: Full passive range of motion without pain. Right lower leg: No edema. Left lower leg: No edema. Skin: General: Skin is cool. Neurological: Mental Status: He is alert and oriented to person, place, and time. Psychiatric: Attention and Perception: Attention normal. Mood and Affect: Mood normal. Behavior: Behavior is cooperative. Allergies Allergen Reactions Nitroglycerin Other Current Outpatient Medications Medication Instructions amLODIPine (NORVASC) 10 mg, oral, Daily doxazosin (CARDURA) 4 mg, oral, Every 12 hours Jardiance 10 mg, oral, Daily metFORMIN XR (GLUCOPHAGE-XR) 500 mg, oral, Every 24 hours metoprolol succinate XL (Toprol-XL) 25 mg 24 hr tablet Take 1.5 tablets daily (37.5mg) daily Ozempic 0.25 mg or 0.5 mg (2 mg/3 mL) pen injector valsartan (DIOVAN) 320 mg, oral, Daily Assessment: Cardiac and Vasculature November 2022 hospitalization for chest pressure, ruled out ACS. Inpatient echo EF greater than 70%, no wall motion abnormality. Subsequent December 2022 perfusion study no ischemia, no infarct. Completed 4 METS. EF 59%. Essential hypertension He has been compliant with addition of doxazosin and valsartan since discharge. Reports PCP stopped hydrochlorothiazide. Remains elevated in office today Hypertensive left ventricular hypertrophy, without heart failure November 2022 TTE LVEF greater than 70% LVH moderate MR trace Diabetes mellitus type II, non insulin dependent (CMS/HCC) On ARB No statin Unknown hemoglobin A1c Obstructive sleep apnea Remains compliant with CPAP BMI 40.0-44.9, adult (CMS/HCC) Recently started treatment with Ozempic Weight is down 10 pounds Reviewed the merits of healthy lifestyle choices on overall cardiovascular health. Plan: Through informed decision making process incorporating patients unique circumstances, the following treatment plan will be initiated: 1. Prescription drug management of cardiovascular medication for efficacy, adherence to treatment, side effect assessment and polypharmacy. Current treatment clinically warranted and to continue with following modifications: - There are no changes to what you are taking only adding: Norvasc 10mg daily 2. Return for follow-up; in the interim, contact the office if new symptoms arise. INSTRUMENT SHOP SUPERVISOR after 2 months Andra Ramirez MSN, METAL RIVETER-EXAMINATION SCORER, PMHNP-[facility] Please excuse any errors in grammar or translation related to this dictation. Voice recognition software was utilized to prepare this document. documented in this encounter [facility] Work Phone: 01-22-2023 Instructions SUGEY Tabares - 01/22/2023 3:30 PM EST Please bring all medicines, vitamins, and herbal supplements with you when you come to the office. Prescriptions will not be filled unless you are compliant with your follow up appointments or have a follow up appointment scheduled as per instruction of your physician. Refills should be requested at the time of your visit. PLAN: Through informed decision making process incorporating patients unique circumstances, the following treatment plan will be initiated: 1. Prescription drug management of cardiovascular medication for efficacy, adherence to treatment, side effect assessment and polypharmacy. Current treatment clinically warranted and to continue with following modifications: - There are no changes to what you are taking only adding: Norvasc 10mg daily 2. Return for follow-up; in the interim, contact the office if new symptoms arise. INSTRUMENT SHOP SUPERVISOR after 2 months documented in this encounter [facility] Work Phone: Evaluation note Diagnosis Onset Date Chest pain acute Hypertensive urgency acute [facility] Work Phone: Evaluation note* Diagnosis Essential hypertension- Primary Unspecified essential hypertension Chest pain, unspecified type Obstructive sleep apnea Obstructive sleep apnea (adult) (pediatric) Diabetes mellitus type II, non insulin dependent (CMS/HCC) Type II or unspecified type diabetes mellitus without mention of complication, not stated as uncontrolled Hypertensive left ventricular hypertrophy, without heart failure BMI 40.0-44.9, adult (CMS/HCC) documented in this encounter [facility] Work Phone: Evaluation note* Diagnosis BMI 40.0-44.9, adult (CMS/HCC)- Primary Essential hypertension Unspecified essential hypertension documented in this encounter [facility] Work Phone: Reason for referral (narrative)* Consultation (Routine) - Authorized Specialty Diagnoses / Procedures Referred By Callum t Referred To Contact Cardiology Diagnoses Essential hypertension Procedures Follow Up In Cardiology Andra Ramirez APRN-CNP [address] [facility] [address], [place] [id number] Referral ID Status Reason Start Date Expiration Date V isits Requested Visits Authorized [id number] Authorized 01/22/2023 01/22/2024 1 1 [facility] Work Phone: Reason for referral (narrative)* Consultation (Routine) - Authorized Specialty Diagnoses / Procedures Referred By Callum long Referred To Contact Cardiology Diagnoses Essential hypertension Procedures Follow Up In Cardiology Andra Ramirez APRN-CNP [address] [facility] [address], [address] [address] Mike Morelos DO [address] [facility] [address], [address] [address] Referral ID Status Reason Start Date Expiration Date V isits Requested Visits Authorized [id number] Authorized 04/23/2023 04/22/2024 1 1 [facility] Work Phone: Summary Purpose Family History No Family History Records FoundNo Family History Records FoundNo Family History Records FoundNo Family History Records Found Advance Directives Advance Directive Response Recorded Date/ Time Advance Directives No 2022 1:53am Hospital Course Note HNO ID: [id number] Author: Delonte pham (Jose) Hrnchar Service: Urology Author Type: Nurse Practitioner Type: Discharge Summary Filed: 12/25/2018 10:12 AM Note Text: Attestation signed by Maico Ang at 12/25/2018 10:35 PM . DISCHARGE SUMMARY PATIENT NAME: Clarence Flores ADMISSION DATE: 12/22/2018 DISCHARGE DATE: 12/25/2018 ATTENDING PHYSICIAN: Maico Ang Code Status: Not on file Highest Readmission Risk Score: 6 The 30 day readmissions risk score is derived from an internally validated risk model which evaluates patient level characteristics, utilization history, medication orders and lab results up until the day of discharge. Patients with a score of 40 or above are considered highest risk for readmission. Specific patient level drivers will be listed at the bottom of the summary. REASON FOR HOSPITALIZATION: Left (more content not included)... Chief Complaint and Reason for Visit Chief Complaint Shortness of Breath Reason for Visit Chest pain Hypertensive urgency Additional Source Comments (unrecognized sect ion and content) No Status Records FoundNo Status Records FoundNo Status Records FoundNo Status Records Found INFORMATION SOURCE (unrecogn ized section and content) DATE CREATED AUTHOR 03/30/2019 [facility] DATE CREATED AUTHOR AUTHOR'S ORGANIZ ATION 06/26/2019 [facility] DATE CREATED AUTHOR AUTHOR'S ORGANIZ ATION 12/03/2021 [facility] DATE CREATED AUTHOR AUTHOR'S ORGANIZ ATION 11/23/2022 [facility] Care Teams (unrecognized sec tion and content) Team Status: Active Member Role Status Dates Shea Beach MD Primary Care Provider Active Team Status: Active Member Role Status Dates Shea Beach MD Primary Care Provider Active Damien Hercules DO Emergency Provider Active Derick Gomes MD Admit Provider, Attending Provi jefferson Active Information Technology Director Relationship Specialty Start Date End Date Shea Beach MD [address] [place] [id number] PCP - General Family Medicine 11/13/22 Information Technology Director Relationship Specialty Start Date End Date Shea Beach MD [address] [place] [id number] PCP - General Family Medicine 11/13/22 Information Technology Director Relationship Specialty Start Date End Date Shea Beach MD [address] [place] [address] [place] [address] PCP - General Family Medicine 11/13/22 Information Technology Director Relationship Specialty Start Date End Date Shea Beach MD [address] [facility] [place] [address] PCP - General Family Medicine 11/13/22 Goals (unrecognized section and content) Goals may be documented in a n alternate section Reason for Visit (unrecogniz ed section and content) Specialty Diagnoses / Procedures Referred By Contac t Referred To Contact Radiology Diagnoses Chest pain, unspecified type Procedures Nuclear Stress Test CHG MYOCARDIAL SPECT MULTIPLE STUDIES CHG MYOCARDIAL SPECT SINGLE STUDY AT REST OR STRESS ME CV STRS TST XERS&/OR RX CONT ECG W/O I&R ME CV STRS TST XERS&/OR RX CONT ECG I&R ONLY ME CV STRS TST XERS&/OR RX CONT ECG TRCG ONLY ME CV STRS TST XERS&/OR RX CONT ECG W/SI&R Mike Morelos, DO [address] [facility] [address], [address] [address] Referral ID Status Reason Start Date Expiration Date V isits Requested Visits Authorized [id number] Authorized 11/13/2022 05/12/2023 5 5 Reason Comments Shortness of Breath Chest pressure Specialty Diagnoses / Procedures Referred By Contac t Referred To Contact Cardiology Diagnoses Chest pain, unspecified type Procedures Follow Up In Cardiology Mike Morelos, DO [address] [facility] [address], [address] [address] Mike Morelos, DO [address] [facility] [address], [place] [phone] Referral ID Status Reason Start Date Expiration Date V isits Requested Visits Authorized [id number] Authorized 01/06/2023 01/06/2024 1 1 Reason Comments Follow-up 1 month Specialty Diagnoses / Procedures Referred By Contac t Referred To Contact Cardiology Diagnoses Essential hypertension Procedures Follow Up In Cardiology Andra Ramirez, METAL RIVETER-EXAMINATION SCORER [address], [address] [place] [address] Referral ID Status Reason Start Date Expiration Date V isits Requested Visits Authorized [id number] Authorized 03/25/2023 03/24/2024 1 1 FOR RECORDS PERTAINING TO PATIENTS WHO ARE OR HAVE BEEN ENROLLED IN A CHEMICAL DEPENDENCY/SUBSTANCEABUSE PROGRAM, SOME INFORMATION MAY BE OMITTED. This clinical summary was aggregated from multiple sources. Caution should be exercised in using it in the provision of clinical care. This summary normalizes information from multiple sources, and as a consequence, information in this document may materially change the coding, format and clinical context of patient data. In addition, data may be omitted in some cases. CLINICAL DECISIONS SHOULD BE BASED ON THE PRIMARY CLINICAL RECORDS. [email or web address] provides no warranty or guarantee of the accuracy or completeness of information in this document.
[2023-04-26 09:03] LABS: Basophils Absolute Auto 0.1 10^3/uL (0.0-0.1); Basophils Percent Auto 0.7 % (0.2-2.0); Eosinophils Absolute Auto 0.3 10^3/uL (0.0-0.7); Eosinophils Percent Auto 2.3 % (0.9-7.0); Hematocrit 49.3 % (42.0-54.0); Hemoglobin 16.2 g/dL (14.0-18.0); Immature Granulocytes Abs Auto 0.03 10^3/uL (0.00-0.03); Immature Granulocytes Pct Auto 0.3 % (0.0-0.5); Lymphocytes Absolute Auto 1.6 10^3/uL (1.2-3.8); Lymphocytes Percent Auto 14.8 % (20.5-60.0); Mean Corpuscular HGB Conc 32.9 g/dL (29.9-35.2); Mean Corpuscular Hemoglobin 28.8 pg (25.9-34.0); Mean Corpuscular Volume 87.6 fL (80.0-94.0); Mean Platelet Volume 9.3 fL (9.5-13.5); Monocytes Percent Auto 8.9 % (1.7-12.0); Platelet Count 316 10^3/uL (150-450); Red Blood Count 5.63 10^6/uL (4.70-6.10); Red Cell Distribution Width 14.3 % (11.0-15.0); White Blood Count 10.9 10^3/uL (4.0-11.0)
[2023-04-26 09:15] LABS: Estimated Average Glucose 114 mg/dL; Glycohemoglobin A1C 5.6 % (4.5-6.2)
[2023-04-26 09:54] LABS: Prostate Specific Antigen Scrn 5.85 ng/mL (<=4.00)
[2023-04-26 10:01] LABS: Alanine Aminotransferase 57 U/L (16-63); Albumin Globulin Ratio 1.1; Alkaline Phosphatase 57 U/L (46-116); Anion Gap 12.8; Aspartate Amino Transferase 33 U/L (15-37); BUN Creatinine Ratio 11.5; Calcium 9.1 mg/dL (8.5-10.1); Carbon Dioxide 26.6 mmol/L (21.0-32.0); Chloride 106 mmol/L (98-107); Chol HDL Ratio 4.7; Cholesterol 145 mg/dL (<=200); Estimated GFR (African America 52 (>=60); Estimated GFR (Non-African Ame 43 (>=60); Free T3 2.39 pg/mL (2.18-3.98); Globulin 3.7 g/dL; Glucose 101 mg/dL (74-106); HDL Cholesterol 31 mg/dL (40-60); Potassium 4.4 mmol/L (3.5-5.1); Sodium 141 mmol/L (136-145); Thyroid Stimulating Hormone 1.231 uIU/mL (0.358-3.740); Total Protein 7.7 g/dL (6.4-8.2); Triglycerides 123 mg/dL (<=150); VLDL CHOLESTEROL 24.6 mg/dL
[2023-04-29 08:11] LABS: PSA, Free 0.81 ng/mL; Prostate Specific Ag 4.7 ng/mL (0.0-4.0)
== END 2023-04-26 08:40 | disposition home or self-care (01) ==
LOC: LAB 08:40
PROVIDERS: PCP Family Medicine; Visit Provider Family Medicine
DX: Z00.00 Encounter for general adult medical examination without abnormal findings (principal); R97.20 Elevated prostate specific antigen [PSA]
CPT/HCPCS: 36415; 80053; 80061; 83036; 84153; 84154; 84436; 84443; 84481; 84550; 85025; G0103

== ENCOUNTER 2023-04-29 15:12 | Outpatient (OUT) | payer OTHER, SELFPAY ==
--- OUTSIDE RECORDS SUMMARY | 2023-04-29 15:26 | XMS_ITS | CCD ---
Author Organization [facility] Care Team Providers Care Battery Charger Tester Name Role Phone YONG, DR VALDIVIA Consulting Unavailable HOY, DR VALDIVIA Primary Care Unavailable HOMarco Antonio, DR VALDIVIA Attending Unavailable HOY, DR VALDIVIA Admitting Unavailable MIKE RADFORD Consulting Unavailable MALINA, MIKE Attending Unavailable MIKE RADFORD Admitting Unavailable DELPHINEY, DR VALDIVIA Primary Care Unavailable STEVE PALACIOS Consulting Unavailable DELPHINEY, DR VALDIVIA Primary Care Unavailable HOY, DR VALDIVIA Attending Unavailable HOY, DR VALDIVIA Admitting Unavailable HOY, DR VALDIVIA Primary Care Unavailable HOY, DR VALDIVIA Attending Unavailable HOY, DR VALDIVIA Admitting Unavailable HOY, DR VALDIVIA Consulting Unavailable HOY, DR VALDIVIA Primary Care Unavailable HOY, DR VALDIVIA Attending Unavailable HOY, DR VALDIVIA Admitting Unavailable Zieber, DR Elise Consulting Unavailable HOY, DR VALDIVIA Consulting Unavailable DELPHINEY, DR VALDIVIA Primary Care Unavailable HOY, DR VALDIVIA Attending Unavailable HOY, DR VALDIVIA Admitting Unavailable West, DR Davila Consulting Unavailable DELPHINEY, DR VALDIVIA Consulting Unavailable YONG, DR VALDIVIA Primary Care Unavailable YONG, DR VALDIVIA Attending Unavailable HOY, DR VALDIVIA Admitting Unavailable West, DR Davila Consulting Unavailable HOY, DR VALDIVIA Consulting Unavailable DELPHINEY, DR VALDIVIA Primary Care Unavailable YONG, DR VALDIVIA Attending Unavailable DELPHINEY, DR VALDIVIA Admitting Unavailable YONG, DR VALDIVIA Consulting Unavailable YONG, DR VALDIVIA Primary Care Unavailable YONG, DR VALDIVIA Attending Unavailable HOY, DR VALDIVIA Admitting Unavailable HOY, DR VALDIVIA Consulting Unavailable DELPHINEY, DR VALDIVIA Primary Care Unavailable YONG, DR VALDIVIA Attending Unavailable YONG, DR VALDIVIA Admitting Unavailable MD Stalin Beach Primary Care Provider [phone] DO Damien Hercules Emergency Provider MD Derick Gomes Admit Provider [phone] MD Derick Gomes Attending Provider Claudia Parra Consulting Unavailable Stalin Beach Primary Care Unavailable Moises Carver Attending Unavailable Derick Gomes Admitting Unavailable Maynor Morelos Consulting Unavailable Steve See Consulting Unavailable Mike Lama Consulting Unavail able Eric Villa Consulting Unavailable Magdy Rose Consulting Unavailab Andra Bernstein Consulting Unavailable Michelle Dumont Consulting Unavailable Jean Gustafson Consulting Unavailab Adelita Jaimes Consulting Unavailable Rosanne Heard Consulting Unavailable Diann Garcia Consulting Unavailable Stalin Beach MD Primary Care Provider Allergies Allergy Classification Reported Allergen(s) Allergy Type Date of Onset Reaction(s) Facility (1 source) Aminolevulinic Acid Drug Allergy 0 [facility] Repository (2 sources) Nitroglycerin Drug Allergy 9 Other [facility] Medications Current Medications Medication Drug Class(es) Dates [...] tablet (1 source) Arteriolar Vasodilator Start: End: 3 take 1 tablet by mouth twice daily [...] Eric Villa 12/17/2022 5:57 PM Dictation workstation: [id number] [id number] Interpreted By: Eric Villa and Giannuzzi Michael STUDY: MYOCARDIAL PERFUSION STRESS TEST WITH EXERCISE Performing facility: [facility], [address] [place] [address], [address], [address] Provider: Chaim Morelos DO, FACC PCP: Dr. Beach Supervising provider: Andra Ramirez RN, PODIATRY DOCTOR INDICATION: Chest Pain; HISTORY: Gender: M; Age: 62 y/o ; Height: cm; Weight: kg. Diabetes; Family HX CAD; HTN; SOB; Denies smoking. COMPARISON: No comparison. ACCESSION NUMBER(S): [id number] ORDERING CLINICIAN: MIKE MORELOS TECHNIQUE: TWO DAY [...] PERFUSION STRESS TEST WITH EXERCISE Performing facility: [facility], [address] [place] [address], [address], [place], [place] [address] Provider: Chaim Morelos DO, FACC PCP: Dr. Beach Supervising provider: Andra Ramirez RN, PODIATRY DOCTOR INDICATION: Chest Pain; HISTORY: Gender: M; Age: 62 y/o ; Height: cm; Weight: kg. Diabetes; Family HX CAD; HTN; SOB; Denies smoking. COMPARISON: No comparison. ACCESSION NUMBER(S): [id number] ORDERING CLINICIAN: MIKE MORELOS TECHNIQUE: TWO DAY [...] Eric Villa 12/17/2022 5:57 PM Dictation workstation: [id number] [facility] Work Phone: NM Heart Perfusion W stress and W radionuclide IVOrdered By: Eric Villa on 12-17-2022 [facility] Work Phone: NM Heart Perfusion W stress and W radionuclide Karen 12-16-2022 Radiology Study observation (narrative) [facility] Work Phone: Glucose Poct Glucometerson 1 Glucose [Mass/Vol] 132 mg/dL Normal [facility] Comment on above: Result Comment: [facility] Glucose Reference Range is dependent on time and content of last meal. Glucose of more than 200 mg/dL in a nonstressed, ambulatory subject supports the diagnosis of Diabetes Mellitus. PERFORMED BY: [place] [address] PATHOLOGIST INSEAMER ROSCOE CASTRO M.D. Performed By: #### C BC, BMP, BNP, HS TROP, CK #### [place] [id number] [facility] Glucose [Mass/Vol] 141 mg/dL Normal [facility] Comment on above: Result Comment: [place] Glucose Reference Range is dependent on time and content of last meal. Glucose of more than 200 mg/dL in a nonstressed, ambulatory subject supports the diagnosis of Diabetes Mellitus. PERFORMED BY: [place] [address] PATHOLOGIST INSEAMER ROSCOE CASTRO M.D. Performed By: #### C BC, BMP, BNP, HS TROP, CK #### [place] [id number] [facility] ECH echo transthoracicon [facility] echo transthoracic [facility] Main [place] [address] [place] [address] Echocardiogram Signed Patient: Clarence Flores MR#: [id number] : 1960 Acct:[id number] Age/Sex: 62 / M ADM Date: 11/10/22 Loc: 4N Room: 0L9262-3 Type: ADM INOo Attending Dr: Moises Long [facility] Ordering Provider: Maura Venegas MD Date of Service: 11/10/2203/04/1501 ECH/ECH echo transthoracic: chest pain Copies to: MD [...] Signed By: Lalita Capellan MD 11/12/22 1033 [facility] Glucose Poct Glucometerson 1 Glucose [Mass/Vol] 156 mg/dL [facility] Comment on above: Result Comment: [facility] Glucose Reference Range is dependent on time and content of last meal. Glucose of more than 200 mg/dL in a nonstressed, ambulatory subject supports the diagnosis of Diabetes Mellitus. PERFORMED BY: [place] [address] PATHOLOGIST INSEAMER ROSCOE CASTRO M.D. Performed By: #### G LULS #### Point of Care testing , Glucose [Mass/Vol] 187 mg/dL Normal [facility] Comment on above: Result Comment: [facility] Glucose Reference Range is dependent on time and content of last meal. Glucose of more than 200 mg/dL in a nonstressed, ambulatory subject supports the diagnosis of Diabetes Mellitus. PERFORMED BY: [place] [address] PATHOLOGIST INSEAMER ROSCOE CASTRO M.D. Performed By: #### C BC, BMP, BNP, HS TROP, CK #### [address] Glucose [Mass/Vol] 162 mg/dL Normal [facility] Comment on above: Result Comment: [facility] Glucose Reference Range is dependent on time and content of last meal. Glucose of more than 200 mg/dL in a nonstressed, ambulatory subject supports the diagnosis of Diabetes Mellitus. PERFORMED BY: [place] [address] PATHOLOGIST INSEAMER ROSCOE CASTRO M.D. Performed By: #### C BC, BMP, BNP, HS TROP, CK #### [address] A1C with Estimated Average G alenan 2022 Glucose [Mass/Vol] 157 mg/dL Normal [facility] Comment on above: Order Comment: Comme nt add Result Comment: PERF ORMED BY: [place] [address] PATHOLOGIST INSEAMER ROSCOE CASTRO M.D. Performed By: #### C BC, BMP, BNP, HS TROP, CK #### [address] HbA1c (Bld) [Mass fraction] 7.1 % High 4.3-5.6 [facility] Comment on above: Order Comment: Comme nt add Result Comment: Incr eased risk for diabetes: 5.7 - 6.4 diabetes: >6.4 glycemic control for adults with diabetes: <7.0 Performed By: #### C BC, BMP, BNP, HS TROP, CK #### [address] Activated partial thrombopla stin time (aPTT) in platelet poor plasma by coagulation aOrdered By: Damien Hercules on 2022 aPTT Coag (PPP) [Time] 29.0 s 25.1-36.5 [facility] Comment on above: A hematocrit value g reater than 55% may lead to inaccurate results in coagulation testing. Patients having hematocrit values >55% require a special collection tube for coagulation studies. Please contact the laboratory at [phone] for redraw instructions. B-Type Natriuretic Peptideon 2022 Natriuretic peptide B (Bld) [Mass/Vol] 101.0 pg/mL High 5-100 [facility] Comment on above: Result Comment: PERF ORMED BY: [place] [address] PATHOLOGIST INSEAMER ROSCOE CASTRO M.D. Performed By: #### C BC, BMP, BNP, HS TROP, CK #### [facility] [address] Basic Metabolic Panelon 10-0 Anion gap [Moles/Vol] 11.3 mmol/L Normal 6.0-15.0 [facility] Comment on above: Performed By: #### B MP #### [facility] [address] Calcium [Mass/Vol] 9.2 mg/dL Normal 8.6-10.3 [facility] Comment on above: Performed By: #### B MP #### [facility] [address] [place] [address] [place] Chloride [Moles/Vol] 106 mmol/L Normal 98-107 [facility] Comment on above: Performed By: #### B MP #### [facility] [address] CO2 [Moles/Vol] 25.2 mmol/L Normal 21.0-31.0 [facility] Comment on above: Performed By: #### B MP #### [facility] [address] [place] [address] Creatinine [Mass/Vol] 1.22 mg/dL Normal 0.70-1.30 [facility] Comment on above: Performed By: #### B MP #### [facility] [address] [place] [address] [place] Creatinine Clr Calc Pharmacy 82.15 Normal [facility] Comment on above: Result Comment: PERF ORMED BY: [facility] [address] [place] [address] PATHOLOGIST INSEAMER ROSCOE CASTRO M.D. Performed By: #### B MP #### [facility] [address] [place] [address] [place] GFR/1.73 sq M.predicted MDRD (S/P/Bld) [Vol rate/Area] mL/min/{1.73_m2} Normal [facility] Comment on above: Performed By: #### B MP #### [facility] [address] [place] [address] [place] Glucose [Mass/Vol] 298 mg/dL Significant change up 70-100 [facility] Comment on above: Result Comment: [place] Glucose Reference Range is dependent on time and content of last meal. Glucose of more than 200 mg/dL in a nonstressed, ambulatory subject supports the diagnosis of Diabetes Mellitus. ADA recommended reference range Performed By: #### B MP #### [facility] [address] [place] [address] [place] Potassium [Moles/Vol] 3.5 mmol/L Normal 3.5-5.1 [facility] Comment on above: Performed By: #### B MP #### [facility] [address] [place] [address] [place] Sodium [Moles/Vol] 139 mmol/L Normal 136-145 [facility] Comment on above: Performed By: #### B MP #### [facility] [address] [place] [address] [place] Urea nitrogen [Mass/Vol] 13 mg/dL Normal 7-25 [facility] Comment on above: Performed By: #### B MP #### [facility] [address] [place] [address] [place] Anion gap [Moles/Vol] 10.4 mmol/L Normal 6.0-15.0 [facility] Comment on above: Performed By: #### C BC, BMP, BNP, HS TROP, CK #### [facility] [address] [place] [address] [place] Calcium [Mass/Vol] 9.0 mg/dL Normal 8.6-10.3 [facility] Comment on above: Performed By: #### C BC, BMP, BNP, HS TROP, CK #### [facility] [address] [place] [address] [place] Chloride [Moles/Vol] 106 mmol/L Normal 98-107 [facility] Comment on above: Performed By: #### C BC, BMP, BNP, HS TROP, CK #### [facility] [address] CO2 [Moles/Vol] 26.2 mmol/L Normal 21.0-31.0 [facility] Comment on above: Performed By: #### C BC, BMP, BNP, HS TROP, CK #### [facility] [address] Creatinine [Mass/Vol] 1.39 mg/dL High 0.70-1.30 [facility] Comment on above: Performed By: #### C BC, BMP, BNP, HS TROP, CK #### [facility] [address] Creatinine Clr Calc Pharmacy 72.10 [facility] Comment on above: Result Comment: PERF ORMED BY: [place] [address] PATHOLOGIST INSEAMER ROSCOE CASTRO M.D. Performed By: #### C BC, BMP, BNP, HS TROP, CK #### [facility] [address] GFR/1.73 sq M.predicted MDRD (S/P/Bld) [Vol rate/Area] 58.037 mL/min/{1.73_m2} [facility] Comment on above: Performed By: #### C BC, BMP, BNP, HS TROP, CK #### [facility] [address] Glucose [Mass/Vol] 170 mg/dL High 70-100 [facility] Comment on above: Result Comment: [place] Glucose Reference Range is dependent on time and content of last meal. Glucose of more than 200 mg/dL in a nonstressed, ambulatory subject supports the diagnosis of Diabetes Mellitus. ADA recommended reference range Performed By: #### C BC, BMP, BNP, HS TROP, CK #### [facility] [address] Potassium [Moles/Vol] 3.6 mmol/L Normal 3.5-5.1 [facility] Comment on above: Performed By: #### C BC, BMP, BNP, HS TROP, CK #### [facility] [address] Sodium [Moles/Vol] 139 mmol/L Normal 136-145 [facility] Comment on above: Performed By: #### C BC, BMP, BNP, HS TROP, CK #### [facility] [address] Urea nitrogen [Mass/Vol] 14 mg/dL Normal 7-25 [facility] Comment on above: Performed By: #### C BC, BMP, BNP, HS TROP, CK #### [facility] [address] Basophils Auto (Bld) [#/Vol] Ordered By: Damien Hercules on 2022 Basophils (Bld) [#/Vol] 0.1 10*3/uL 0.0-0.2 [facility] Basophils/100 WBC Auto (Bld) Ordered By: Damien Hercules on 2022 Basophils/100 WBC (Bld) 1.0 % . [facility] Calcium [Mass/volume] in Ser um or PlasmaOrdered By: Damien Hercules on 2022 Calcium [Mass/Vol] 9.0 mg/dL 8.6-10.3 [facility] Carbon dioxide, total [Moles /volume] in Serum or PlasmaOrdered By: Damien Hercules on 2022 CO2 [Moles/Vol] 26.2 mmol/L 21.0-31.0 [facility] Chloride [Moles/volume] in S luke or PlasmaOrdered By: Damien Hercules on 2022 Chloride [Moles/Vol] 106 mmol/L 98-107 [facility] Coagulation Profileon 2022 aPTT Coag (Bld) [Time] 29.0 s Normal 25.1-36.5 [facility] Comment on above: Order Comment: REDRA Mcguire Result Comment: A he matocrit value greater than 55% may lead to inaccurate results in coagulation testing. Patients having hematocrit values >55% require a special collection tube for coagulation studies. Please contact the laboratory at [phone] for redraw instructions. PERFORMED BY: [place] [id number] PATHOLOGIST INSEAMER ROSCOE CASTRO M.D. Performed By: #### C BC, BMP, BNP, HS TROP, CK #### [place] [id number] [facility] INR Coag (PPP) [Relative time] 1.0 {INR} Normal [facility] Comment on above: Order Comment: REDRA W [...] BC, BMP, BNP, HS TROP, CK #### [address] [address] [facility] PT Coag (PPP) [Time] 12.4 s Normal 9.0-12.9 [facility] Comment on above: Order Comment: REDRA W Result Comment: A he matocrit value greater than 55% may lead to inaccurate results in coagulation testing. Patients having hematocrit values >55% require a special collection tube for coagulation studies. Please contact the laboratory at [phone] for redraw instructions. Performed By: #### C BC, BMP, BNP, HS TROP, CK #### [address] [address] [facility] Complete Blood Count Auto Di ffon 2022 Basophils (Bld) [#/Vol] 0.1 10*3/uL Normal 0.0-0.2 [facility] Comment on above: Result Comment: PERF ORMED BY: [place] [id number] PATHOLOGIST INSEAMER JIANLAN SUN M.D. Performed By: #### C BC, BMP, BNP, HS TROP, CK #### [address] Basophils/100 WBC (Bld) 1.0 % Normal . [facility] Comment on above: Performed By: #### C BC, BMP, BNP, HS TROP, CK #### [address] Eosinophils (Bld) [#/Vol] 0.3 10*3/uL Normal 0.0-0.45 [facility] Comment on above: Performed By: #### C BC, BMP, BNP, HS TROP, CK #### [address] Eosinophils/100 WBC (Bld) 2.9 % Normal . [facility] Comment on above: Performed By: #### C BC, BMP, BNP, HS TROP, CK #### [address] Erythrocyte distribution width (RBC) [Ratio] 14.8 % Normal 12.0-14.8 [facility] Comment on above: Performed By: #### C BC, BMP, BNP, HS TROP, CK #### [address] Hematocrit (Bld) [Volume fraction] 43.8 % Normal 38.8-50.0 [facility] Comment on above: Performed By: #### C BC, BMP, BNP, HS TROP, CK #### [address] Hemoglobin (Bld) [Mass/Vol] 15.0 g/dL Normal 13.0-17.0 [facility] Comment on above: Performed By: #### C BC, BMP, BNP, HS TROP, CK #### [address] Lymphocytes (Bld) [#/Vol] 1.8 10*3/uL Normal 1.00-4.8 [facility] Comment on above: Performed By: #### C BC, BMP, BNP, HS TROP, CK #### [address] Lymphocytes/100 WBC (Bld) 19.7 % Normal . [facility] Comment on above: Performed By: #### C BC, BMP, BNP, HS TROP, CK #### [address] MCH (RBC) [Entitic mass] 28.8 pg Normal 27.5-35.2 [facility] Comment on above: Performed By: #### C BC, BMP, BNP, HS TROP, CK #### [address] MCV (RBC) [Entitic vol] 84.1 fL Normal 83.5-101 [facility] Comment on above: Performed By: #### C BC, BMP, BNP, HS TROP, CK #### [address] Mean Corpuscular HGB Conc 34.3 g/dL Normal 32.5-35.6 [facility] Comment on above: Performed By: #### C BC, BMP, BNP, HS TROP, CK #### [address] Monocytes (Bld) [#/Vol] 0.8 10*3/uL Normal 0.0-0.8 [facility] Comment on above: Performed By: #### C BC, BMP, BNP, HS TROP, CK #### [place] [address] [place] Monocytes/100 WBC (Bld) 20.13 % High 0.00-20.00 [facility] Comment on above: Result Comment: For adults in ED, MDW > 20.0 may be associated with a higher risk of sepsis during the first 12 hrs of hospital admission Performed By: #### C BC, BMP, BNP, HS TROP, CK #### [address] Monocytes/100 WBC (Bld) 9.2 % Normal . [facility] Comment on above: Performed By: #### C BC, BMP, BNP, HS TROP, CK #### [facility] [address] [place] [address] [place] Neutrophils (Bld) [#/Vol] 6.2 10*3/uL Normal 1.8-7.7 [facility] Comment on above: Performed By: #### C BC, BMP, BNP, HS TROP, CK #### [place] [address] [place] Neutrophils/100 WBC (Bld) 67.2 % Normal . [facility] Comment on above: Performed By: #### C BC, BMP, BNP, HS TROP, CK #### [address] NRBC% 0.1 /100{WBC} Normal 0-0.5 [facility] Comment on above: Performed By: #### C BC, BMP, BNP, HS TROP, CK #### [address] Platelet mean volume (Bld) [Entitic vol] 7.7 fL Normal 6.6-10.1 [facility] Comment on above: Performed By: #### C BC, BMP, BNP, HS TROP, CK #### [place] [address] [place] Platelets (Bld) [#/Vol] 194 10*3/uL Normal 150-450 [facility] Comment on above: Performed By: #### C BC, BMP, BNP, HS TROP, CK #### [place] [address] [place] RBC (Bld) [#/Vol] 5.21 10*6/uL Normal 3.90-5.60 [facility] Comment on above: Performed By: #### C BC, BMP, BNP, HS TROP, CK #### [place] [address] [place] WBC (Bld) [#/Vol] 9.2 10*3/uL Normal 4.1-10.5 [facility] Comment on above: Performed By: #### C BC, BMP, BNP, HS TROP, CK #### [address] [place] [address] [place] Creatine Kinaseon 2022 CK [Catalytic activity/Vol] 111 U/L Normal [facility] Comment on above: Performed By: #### C BC, BMP, BNP, HS TROP, CK #### [place] [id number] [facility] Creatine kinase [Enzymatic a ctivity/volume] in Serum or PlasmaOrdered By: Damien Hercules on 2022 CK [Catalytic activity/Vol] 111 U/L [facility] Creatinine [Mass/volume] in Serum or PlasmaOrdered By: Damien Hercules on 2022 Creatinine [Mass/Vol] 1.39 mg/dL 0.70-1.30 [facility] ECG 12 lead ECGon 2022 ECG 12 lead ECG [facility] Main [place] [address] [place] [address] Electrocardiograph Report Signed Patient: Clarence Flores MR#: [id number] : 1960 Acct:[id number] Age/Sex: 61 / M ADM Date: 11/10/22 Loc: Room: [address] [place] [address] Type: ADM INOo Attending Dr: Derick Gomes [...] MUS Signed By Damien Hercules DO 0605 [facility] Eosinophils Auto (Bld) [#/Vo l]Ordered By: Damien Hercules on 2022 Eosinophils (Bld) [#/Vol] 0.3 10*3/uL 0.0-0.45 [facility] Eosinophils/100 WBC Auto (Bl d)Ordered By: Damien Ira on 2022 Eosinophils/100 WBC (Bld) 2.9 % . [facility] Erythrocyte distribution wid th Auto (RBC) [Ratio]Ordered By: Damien Hercules on 2022 Erythrocyte distribution width (RBC) [Ratio] 14.8 % 12.0-14.8 [facility] Glucose Poct Glucometerson 1 Glucose [Mass/Vol] 193 mg/dL Normal [facility] Comment on above: Result Comment: [facility] Glucose Reference Range is dependent on time and content of last meal. Glucose of more than 200 mg/dL in a nonstressed, ambulatory subject supports the diagnosis of Diabetes Mellitus. PERFORMED BY: [place] [address] PATHOLOGIST INSEAMER ROSCOE CASTRO M.D. Performed By: #### C BC, BMP, BNP, HS TROP, CK #### [facility] [address] [place] [address] [place] Glucose [Mass/Vol] 219 mg/dL Normal [facility] Comment on above: Result Comment: [facility] Glucose Reference Range is dependent on time and content of last meal. Glucose of more than 200 mg/dL in a nonstressed, ambulatory subject supports the diagnosis of Diabetes Mellitus. PERFORMED BY: [place] [address] PATHOLOGIST INSEAMER ROSCOE CASTRO M.D. Performed By: #### C BC, BMP, BNP, HS TROP, CK #### [facility] [address] [place] [address] [place] Glucose [Mass/Vol] 388 mg/dL Normal [facility] Comment on above: Result Comment: [place] Glucose Reference Range is dependent on time and content of last meal. Glucose of more than 200 mg/dL in a nonstressed, ambulatory subject supports the diagnosis of Diabetes Mellitus. PERFORMED BY: [address] [place] [address] PATHOLOGIST INSEAMER ROSCOE CASTRO M.D. Performed By: #### C BC, BMP, BNP, HS TROP, CK #### [address] Commemt1 Glu2: Cleaned Meter Normal [facility] Comment on above: Result Comment: PERF ORMED BY: [facility] [address] [place] [address] PATHOLOGIST INSEAMER ROSCOE CASTRO M.D. Performed By: #### G LULS #### Point of Care testing , Glucose [Mass/Vol] 250 mg/dL Normal [facility] Comment on above: Result Comment: [place] om Glucose Reference Range is dependent on time and content of last meal. Glucose of more than 200 mg/dL in a nonstressed, ambulatory subject supports the diagnosis of Diabetes Mellitus. Performed By: #### G LULS #### Point of Care testing , Glucose [Mass/volume] in Ser um or PlasmaOrdered By: Damien Hercules on 2022 Glucose [Mass/Vol] 170 mg/dL 70-100 [facility] Comment on above: ADA recommended refe rence rangeRandom Glucose Reference Range is dependent on time and content of last meal. Glucose of more than 200 mg/dL in a nonstressed, ambulatory subject supports the diagnosis of Diabetes Mellitus. Hematocrit Auto (Bld) [Volum e fraction]Ordered By: Damien Hercules on 2022 Hematocrit (Bld) [Volume fraction] 43.8 % 38.8-50.0 [facility] Hemoglobin [Mass/volume] in BloodOrdered By: Damien Hercules on 2022 Hemoglobin (Bld) [Mass/Vol] 15.0 g/dL 13.0-17.0 [facility] INR in Platelet poor plasma by Coagulation assayOrdered By: Damien Hercules on 2022 INR Coag (PPP) [Relative time] 1.0 {INR} [facility] Comment on above: INR Therapeutic Rang e [...] RBC Auto (Bld) [#/Vol] 9.2 10*3/uL 4.1-10.5 [facility] Lipid Panelon 2022 Cholesterol [Mass/Vol] 143 mg/dL Normal 140-200 [facility] Comment on above: Order Comment: Comme nt add Result Comment: Chol less than 200 mg/dl low risk Chol 201-239 mg/dl borderline risk Chol 240 mg/dl and greater high risk Performed By: #### C BC, BMP, BNP, HS TROP, CK #### [facility] [address] Cholesterol in HDL [Mass/Vol] 29 mg/dL Normal 23-92 [facility] Comment on above: Order Comment: Comme nt add Result Comment: HDL CHOL ATP-III CLASSIFICATION Cardiovascular Risk HDL > or equal to 60 mg/dL LOW HDL < 40 mg/dL HIGH Performed By: #### C BC, BMP, BNP, HS TROP, CK #### [facility] [address] Cholesterol.total/Chol esterol in HDL [Mass ratio] 4.9 {ratio} Normal <5.0 [facility] Comment on above: Order Comment: Comme nt add Result Comment: PERF ORMED BY: [place] [address] PATHOLOGIST INSEAMER ROSCOE CASTRO M.D. Performed By: #### C BC, BMP, BNP, HS TROP, CK #### [facility] [address] LDL Cholesterol,Calculated 87 mg/dL Normal 0-100 [facility] Comment on above: Order Comment: Comme nt add Result Comment: LDL ATP III CLASSIFICATION LDL less than 100 mg/dL Optimal LDL 100-129 mg/dL Near or above optimal LDL 130-159 mg/dL Borderline high LDL 160-189 mg/dL High LDL greater than 189 mg/dL Very high Performed By: #### C BC, BMP, BNP, HS TROP, CK #### [facility] [address] Triglyceride w/Reflex 133 mg/dL Normal 0-149 [facility] Comment on above: Order Comment: Comme nt add Result Comment: TRIG ATP III CLASSIFICATION TRIG less than 150 mg/dL Normal TRIG 150-199 mg/dL Borderline high TRIG 200-500 mg/dL High TRIG greater than 500 mg/dL Very high Standard traceable to the Center for Disease Conrtrol and Prevention (CDC) test method. Performed By: #### C BC, BMP, BNP, HS TROP, CK #### [facility] [address] VLDL CHOLESTEROL 26 mg/dL Normal [facility] Comment on above: Order Comment: Comme nt add Performed By: #### C BC, BMP, BNP, HS TROP, CK #### [facility] [address] Lymphocytes Auto (Bld) [#/Vo l]Ordered By: Damien Hercules on 2022 Lymphocytes (Bld) [#/Vol] 1.8 10*3/uL 1.00-4.8 [facility] Lymphocytes/100 WBC Auto (Bl d)Ordered By: Damien Hercules on 2022 Lymphocytes/100 WBC (Bld) 19.7 % . [facility] MCH Auto (RBC) [Entitic mass ]Ordered By: Damien Hercules on 2022 MCH (RBC) [Entitic mass] 28.8 pg 27.5-35.2 [facility] MCHC Auto (RBC) [Mass/Vol]Or dered By: Damien Hercules on 2022 MCHC (RBC) [Mass/Vol] 34.3 g/dL 32.5-35.6 [facility] MCV Auto (RBC) [Entitic vol] Ordered By: Damien Hercules on 2022 MCV (RBC) [Entitic vol] 84.1 fL 83.5-101 [facility] Monocyte distribution width [Entitic volume] in Blood by AutomatedOrdered By: Damien Hercules on 2022 Monocyte distribution width Auto (Bld) [Entitic vol] 20.13 % 0.00-20.00 [facility] Comment on above: For adults in ED, MD W > 20.0 may be associated with a higher risk of sepsis during the first 12 hrs of hospital admission Monocytes Auto (Bld) [#/Vol] Ordered By: Damien Hercules on 2022 Monocytes (Bld) [#/Vol] 0.8 10*3/uL 0.0-0.8 [facility] Monocytes/100 WBC Auto (Bld) Ordered By: Damien Hercules on 2022 Monocytes/100 WBC (Bld) 9.2 % . [facility] Natriuretic peptide B [Mass/ Vol]Ordered By: Damien Hercules on 2022 Natriuretic peptide B (Bld) [Mass/Vol] 101.0 pg/mL 5-100 [facility] Neutrophils Auto (Bld) [#/Vo l]Ordered By: Damien Hercules on 2022 Neutrophils (Bld) [#/Vol] 6.2 10*3/uL 1.8-7.7 [facility] Neutrophils/100 WBC Auto (Bl d)Ordered By: Damien Hercules on 2022 Neutrophils/100 WBC (Bld) 67.2 % . [facility] No Panel InformationOrdered By: Damien Hercules on 2022 Estimated GFR (CKD-EPI) 58.037 mL/Min [facility] Creatinine Clearance (Chem 72.10 [facility] Nucleated erythrocytes [Pres ence] in Blood by Automated countOrdered By: Damien Hercules on 2022 Nucleated RBC Auto Ql (Bld) 0.1 /100{WBC} 0-0.5 [facility] Platelet mean volume Auto (B ld) [Entitic vol]Ordered By: Damien Hercules on 2022 Platelet mean volume (Bld) [Entitic vol] 7.7 fL 6.6-10.1 [facility] Platelets Auto (Bld) [#/Vol] Ordered By: Damien Hercules on 2022 Platelets (Bld) [#/Vol] 194 10*3/uL 150-450 [facility] Potassium [Moles/volume] in Serum or PlasmaOrdered By: Damien Hercules on 2022 Potassium [Moles/Vol] 3.6 mmol/L 3.5-5.1 [facility] Prothrombin time (PT)Ordered By: Damien Hercules on 2022 PT Coag (PPP) [Time] 12.4 s 9.0-12.9 [facility] Comment on above: A hematocrit value g reater than 55% may lead to inaccurate results in coagulation testing. Patients having hematocrit values >55% require a special collection tube for coagulation studies. Please contact the laboratory at [phone] for redraw instructions. RBC Auto (Bld) [#/Vol]Ordere d By: Damien Hercules on 2022 RBC (Bld) [#/Vol] 5.21 10*6/uL 3.90-5.60 [facility] Serum or plasma anion gap de terminationOrdered By: Damien Hercules on 2022 Anion gap [Moles/Vol] 10.4 mmol/L 6.0-15.0 [facility] Sodium [Moles/volume] in Ser um or PlasmaOrdered By: Damien Hercules on 2022 Sodium [Moles/Vol] 139 mmol/L 136-145 [facility] Troponin I High Sensitivityo n 2022 Troponin I High Sensitivity 10.1 pg/mL Normal 0.0-20.0 [facility] Comment on above: Result Comment: PERF ORMED BY: [facility] [address] [place] [address] PATHOLOGIST INSEAMER ROSCOE CASTRO M.D. Performed By: #### H S TROP #### [facility] [address] Troponin I High Sensitivity 13.0 pg/mL Normal 0.0-20.0 [facility] Comment on above: Result Comment: PERF ORMED BY: [place] [address] PATHOLOGIST INSEAMER ROSCOE CASTRO M.D. Performed By: #### H S TROP #### [facility] [address] [place] [address] Troponin I High Sensitivity 15.8 pg/mL Normal 0.0-20.0 [facility] Comment on above: Result Comment: PERF ORMED BY: [place] [address] PATHOLOGIST INSEAMER ROSCOE CASTRO M.D. Performed By: #### C BC, BMP, BNP, HS TROP, CK #### [facility] [address] [place] [id number] Troponin I.cardiac [Mass/vol ume] in Serum or Plasma by Detection limit <= 0.01 ng/Ordered By: Damien Hercules on 2022 Troponin I.cardiac DL <= 0.01 ng/mL [Mass/Vol] 15.8 pg/mL 0.0-20.0 [facility] Urea nitrogen [Mass/volume] in Serum or PlasmaOrdered By: Damien Hercules on 2022 Urea nitrogen [Mass/Vol] 14 mg/dL 7-25 [facility] WBC Auto (Bld) [#/Vol]Ordere d By: Damien Hercules on 2022 WBC (Bld) [#/Vol] 9.2 10*3/uL 4.1-10.5 [facility] XR chest 2V*on 2022 XR chest 2V* [facility] [place] [address] [place] [id number] XRay Report Signed Patient: Clarence Flores MR#: [id number] : 1960 Acct:[id number] Age/Sex: 62 / M ADM Date: 11/10/22 Loc: Room: [address] [place] [address] Type: ADM INOo Attending Dr: Maura Venegas [...] PNEUMONIA. Impression dictated by: Ruel Oreilly Jr., D.OJessica2022 10:13 AM Dictation Location: [facility]--15 Transcribed By: [facility] 11/10/22 1013 Dictated By: Ruel Oreilly Jr, DO 11/10/22 1012 Signed By: 11/10/22 1013 [facility] CBC AUTO DIFFon 11-24-2021 BASO # 0.0 103/ul Normal 0.0-0.1 [facility] Comment on above: Performed By: #### C BC #### [facility] [address] [place] [address] Dr. Sunny Ortez Basophils/100 WBC (Bld) 0.5 % Normal 0.2-2.0 [facility] Comment on above: Performed By: #### C BC #### [facility] [address] [place] [address] Dr. Sunny Ortez EO # 0.4 103/ul Normal 0.0-0.7 [facility] Comment on above: Performed By: #### C BC #### [facility] [address] [place] [address] Dr. Sunny Ortez Eosinophils/100 WBC (Bld) 4.6 % Normal 0.9-7.0 [facility] Comment on above: Performed By: #### C BC #### [facility] [address] [place] [address] Dr. Sunny Ortez Erythrocyte distribution width (RBC) [Ratio] 14.2 % Normal 11.0-15.0 [facility] Comment on above: Performed By: #### C BC #### [facility] [address] [place] [address] Dr. Sunny Ortez Hematocrit (Bld) [Volume fraction] 45.8 % Normal 42.0-54.0 [facility] Comment on above: Performed By: #### C BC #### [facility] [address] [place] [address] Dr. Sunny Ortez Hemoglobin (Bld) [Mass/Vol] 15.1 g/dL Normal 14.0-18.0 [facility] Comment on above: Performed By: #### C BC #### [facility] [address] [place] [address] Dr. Sunny Ortez IG # 0.02 10e3/ul Normal 0.00-0.03 [facility] Comment on above: Performed By: #### C BC #### [facility] [address] [place] [address] Dr. Sunny Ortez IG % 0.2 % Normal 0.0-0.5 [facility] Comment on above: Performed By: #### C BC #### [facility] [address] [place] [address] Dr. Sunny Ortez LYMPH # 1.7 103/ul Normal 1.2-3.8 [facility] Comment on above: Performed By: #### C BC #### [facility] [address] [place] [address] Dr. Sunny Ortez Lymphocytes/100 WBC (Bld) 20.2 % Critically low 20.5-60.0 [facility] Comment on above: Performed By: #### C BC #### [facility] [address] [place] [address] Dr. Sunny Ortez MANUAL DIFF REQ NO Normal [facility] Comment on above: Performed By: #### C BC #### [facility] [address] [place] [address] Dr. Sunny Ortez MCH (RBC) [Entitic mass] 27.7 pg Normal 25.9-34.0 [facility] Comment on above: Performed By: #### C BC #### [facility] [address] [place] [address] Dr. Sunny Ortez MCHC (RBC) [Mass/Vol] 33.0 g/dL Normal 29.9-35.2 [facility] Comment on above: Performed By: #### C BC #### [facility] [address] [place] [address] Dr. Sunny Ortez MCV (RBC) [Entitic vol] 83.9 fL Normal 80.0-94.0 [facility] Comment on above: Performed By: #### C BC #### [facility] [address] [address] [address] Sunny Ortez MONO # 0.7 103/ul Normal 0.3-0.8 [facility] Comment on above: Performed By: #### C BC #### [facility] [address] [place] [address] Dr. Sunny Ortez Monocytes/100 WBC (Bld) 8.0 % Normal 1.7-12.0 [facility] Comment on above: Performed By: #### C BC #### [facility] [address] [place] [address] Dr. Sunny Ortez NEUT # 5.6 103/ul Normal 1.4-6.5 [facility] Comment on above: Performed By: #### C BC #### [facility] [address] [place] [address] Dr. Sunny Ortez Neutrophils/100 WBC (Bld) 66.5 % Normal 43.0-75.0 [facility] Comment on above: Performed By: #### C BC #### [facility] [address] [place] [address] Dr. Sunny Ortez Platelet mean volume (Bld) [Entitic vol] 9.1 fL Critically low 9.5-13.5 [facility] Comment on above: Performed By: #### C BC #### [facility] [address] [place] [address] Dr. Sunny Ortez PLT 215 103/ul Normal 150-450 [facility] Comment on above: Performed By: #### C BC #### [facility] [address] [place] [address] Dr. Sunny Ortez RBC 5.46 106/ul Normal 4.70-6.10 [facility] Comment on above: Performed By: #### C BC #### [facility] [address] [place] [address] Dr. Sunny Ortez WBC 8.4 103/ul Normal 4.0-11.0 [facility] Comment on above: Performed By: #### C BC #### [facility] [address] [place] [address] Dr. Sunny Ortez GLYCOHEMOGLOBIN A1Con 2021 ADA RECOMMENDATION SEE BELOW Normal [facility] Comment on above: Result Comment: ADA RECOMMENDED LIMIT 4.0 - 6.0 ADA THERAPEUTIC TARGET < 7.0 ACTION SUGGESTED > 7.0 Performed By: #### A 1C #### [facility] [address] [place] [address] Dr. Sunny Ortez Glucose [Mass/Vol] 117 mg/dL Normal [facility] Comment on above: Performed By: #### A 1C #### [facility] [address] [place] [address] Dr. Sunny Ortez HbA1c (Bld) [Mass fraction] 5.7 % Normal 4.5-6.2 [facility] Comment on above: Performed By: #### A 1C #### [facility] [address] [place] [address] Dr. Sunny Ortez PROF 14(COMP METB)on 022 Albumin [Mass/Vol] 3.7 g/dL Normal 3.4-5.0 [facility] Comment on above: Performed By: #### C MP #### [facility] [address] [place] [address] Dr. Sunny Ortez Albumin/Globulin [Mass ratio] 1.0 {ratio} Normal [facility] Comment on above: Performed By: #### C MP #### [facility] [address] [place] [address] Dr. Sunny Ortez ALP [Catalytic activity/Vol] 61 U/L Normal 46-116 [facility] Comment on above: Performed By: #### C MP #### [facility] [address] [place] [address] Dr. Sunny Ortez ALT [Catalytic activity/Vol] 42 U/L Normal 16-63 [facility] Comment on above: Performed By: #### C MP #### [facility] [address] [place] [address] Dr. Sunny Ortez Anion gap [Moles/Vol] 8.1 mmol/L Normal [facility] Comment on above: Performed By: #### C MP #### [facility] [address] [place] [address] Dr. Sunny Ortez AST [Catalytic activity/Vol] 28 U/L Normal 15-37 [facility] Comment on above: Performed By: #### C MP #### [facility] [address] [place] [address] Dr. Sunny Ortez Bilirubin [Mass/Vol] 0.5 mg/dL Normal 0.2-1.0 [facility] Comment on above: Performed By: #### C MP #### [facility] [address] [place] [address] Dr. Sunny Ortez Calcium [Mass/Vol] 8.7 mg/dL Normal 8.5-10.1 [facility] Comment on above: Performed By: #### C MP #### [facility] [address] [place] [address] Dr. Sunny Ortez Chloride [Moles/Vol] 107 mmol/L Normal 98-107 [facility] Comment on above: Performed By: #### C MP #### [facility] [address] [place] [address] Dr. Sunny Ortez CO2 [Moles/Vol] 30.0 mmol/L Normal 21.0-32.0 [facility] Comment on above: Performed By: #### C MP #### [facility] [address] [place] [address] Dr. Sunny Ortez Creatinine [Mass/Vol] 1.29 mg/dL Normal 0.70-1.30 [facility] Comment on above: Performed By: #### C MP #### [facility] [address] [place] [address] Dr. Sunny Ortez EGFR-AF JAPANESE >60 Normal >=60 [facility] Comment on above: Performed By: #### C MP #### [facility] [address] [address] [address] Sunny Ortez EGFR-NON AF JAPANESE 57 mL/min/1.73m2 Critically low >=60 [facility] Comment on above: Performed By: #### C MP #### [facility] [address] [address] [address] Sunny Ortez Globulin (S) [Mass/Vol] 3.7 g/dL Normal [facility] Comment on above: Performed By: #### C MP #### [facility] [address] [address] [address] Sunny Ortez Glucose [Mass/Vol] 108 mg/dL Critically high 74-106 [facility] Comment on above: Performed By: #### C MP #### [facility] [address] [address] [address] Sunny Ortez Potassium [Moles/Vol] 4.1 mmol/L Normal 3.5-5.1 [facility] Comment on above: Performed By: #### C MP #### [facility] [address] [address] [address] Sunny Ortez Protein [Mass/Vol] 7.4 g/dL Normal 6.4-8.2 [facility] Comment on above: Performed By: #### C MP #### [facility] [address] [address] [address] Sunny Ortez Sodium [Moles/Vol] 141 mmol/L Normal 136-145 [facility] Comment on above: Performed By: #### C MP #### [facility] [address] [address] [address] Sunny Ortez Urea nitrogen [Mass/Vol] 16.0 mg/dL Normal 7.0-18.0 [facility] Comment on above: Performed By: #### C MP #### [facility] [address] [address] [address] Sunny Ortez Urea nitrogen/Creatinine [Mass ratio] 12.4 mg/mg Normal [facility] Comment on above: Performed By: #### C MP #### [facility] [address] [address] [address] Sunny Ortez OCC BLD IMMUNO SCREENon 10-12 OCCULT BLOOD Negative Normal NEGATIVE [facility] Comment on above: Performed By: #### O BSCRN #### [facility] [address] [address] [address] Sunny Ortez Covid-19 PCR ([facility])on 10-12 SARS-CoV-2 (COVID-19) RNA RENÉE+probe Ql (Unsp spec) Not detected Normal NOT DETECTED [facility] Comment on above: Result Comment: When [...] for this test is supported by the [employer] of [employer] and Human Service's declaration that [...] used). Performed By: #### C MP #### [facility] [address] [address] [address] Sunny Ortez MRI ABDOMEN W CONon [...] ELVIN JENKINS Date: 2021-05-06 07:49 Normal [facility] CREATININEon 05-04-2021 Creatinine [Mass/Vol] 1.37 mg/dL Critically high 0.66-1.25 [facility] Comment on above: Performed By: #### C ALISHA #### [facility] [address] [place] [address] Dr. Sunny Ortez EGFR-AF JAPANESE >60 Normal >=60 [facility] Comment on above: Performed By: #### C ALISHA #### [facility] [address] [address] [address] Sunny Ortez EGFR-NON AF JAPANESE 53 mL/min/1.73m2 Critically low >=60 [facility] Comment on above: Performed By: #### C ALISHA #### [facility] [address] [place] [address] Dr. Sunny Ortez CREATININEon 04-12-2021 Creatinine [Mass/Vol] 1.28 mg/dL Critically high 0.66-1.25 [facility] Comment on above: Performed By: #### C ALISHA #### [facility] [address] [address] [address] Sunny Ortez EGFR-AF JAPANESE >60 Normal >=60 [facility] Comment on above: Performed By: #### C ALISHA #### [facility] [address] [place] [address] Dr. Sunny Ortez EGFR-NON AF JAPANESE 58 mL/min/1.73m2 Critically low >=60 [facility] Comment on above: Performed By: #### C ALISHA #### [facility] [address] [address] [address] Sunny Ortez MRI ABDOMEN WO CONon [...] by: STEVE COLLADO Date: 2021-04-12 14:39 Normal [facility] CT ABD/PELV W CONon 03-28-19 22 [...] mild inflammatory changes. Consider cystitis Normal [facility] INSULINon 03-26-2021 Insulin 30.7 uIU/mL Critically high 2.6-24.9 [facility] Comment on above: Performed By: #### I NSULIN #### [facility] [address] [address] [address] Sunny Ortez XR KNEE LT 4V [...] STEVE PALACIOS Date: 2021-03-25 17:14 Normal [facility] BNPon 03-24-2021 Natriuretic peptide B (Bld) [Mass/Vol] 202.0 pg/mL Normal <=900.0 [facility] Comment on above: Performed By: #### C MP #### [facility] [address] [address] [address] Sunny Ortez CBC AUTO DIFFon 03-24-2021 BASO # 0.1 103/ul Normal 0.0-0.1 [facility] Comment on above: Performed By: #### C BC #### [facility] [address] [address] [address] Sunny Ortez Basophils/100 WBC (Bld) 0.8 % Normal 0.2-2.0 [facility] Comment on above: Performed By: #### C BC #### [facility] [address] [address] [address] Sunny Ortez EO # 0.5 103/ul Normal 0.0-0.7 [facility] Comment on above: Performed By: #### C BC #### [facility] [address] [address] [address] Sunny Ortez Eosinophils/100 WBC (Bld) 4.6 % Normal 0.9-7.0 [facility] Comment on above: Performed By: #### C BC #### [facility] [address] [place] [address] Dr. Sunny Ortez Erythrocyte distribution width (RBC) [Ratio] 13.6 % Normal 11.0-15.0 [facility] Comment on above: Performed By: #### C BC #### [facility] [address] [place] [address] Dr. Sunny Ortez Hematocrit (Bld) [Volume fraction] 45.6 % Normal 42.0-54.0 [facility] Comment on above: Performed By: #### C BC #### [facility] [address] [place] [address] Dr. Sunny Ortez Hemoglobin (Bld) [Mass/Vol] 15.2 g/dL Normal 14.0-18.0 [facility] Comment on above: Performed By: #### C BC #### [facility] [address] [address] [address] Sunny Ortez IG # 0.04 10e3/ul Critically high 0.00-0.03 [facility] Comment on above: Performed By: #### C BC #### [facility] [address] [address] [address] Sunny Ortez IG % 0.4 % Normal 0.0-0.5 [facility] Comment on above: Performed By: #### C BC #### [facility] [address] [place] [address] Dr. Sunny Ortez LYMPH # 1.9 103/ul Normal 1.2-3.8 [facility] Comment on above: Performed By: #### C BC #### [facility] [address] [place] [address] Dr. Sunny Ortez Lymphocytes/100 WBC (Bld) 18.4 % Critically low 20.5-60.0 [facility] Comment on above: Performed By: #### C BC #### [facility] [address] [place] [address] Dr. Sunny Ortez MANUAL DIFF REQ NO Normal [facility] Comment on above: Performed By: #### C BC #### [facility] [address] [place] [address] Dr. Sunny Ortez MCH (RBC) [Entitic mass] 27.9 pg Normal 25.9-34.0 [facility] Comment on above: Performed By: #### C BC #### [facility] [address] [place] [address] Dr. Sunny Ortez MCHC (RBC) [Mass/Vol] 33.3 g/dL Normal 29.9-35.2 [facility] Comment on above: Performed By: #### C BC #### [facility] [address] [place] [address] Dr. Sunny Ortez MCV (RBC) [Entitic vol] 83.7 fL Normal 80.0-94.0 [facility] Comment on above: Performed By: #### C BC #### [facility] [address] [place] [address] Dr. Sunny Ortez MONO # 0.8 103/ul Normal 0.3-0.8 [facility] Comment on above: Performed By: #### C BC #### [facility] [address] [place] [address] Dr. Sunny Ortez Monocytes/100 WBC (Bld) 8.0 % Normal 1.7-12.0 [facility] Comment on above: Performed By: #### C BC #### [facility] [address] [place] [address] Dr. Sunny Ortez NEUT # 7.0 103/ul Critically high 1.4-6.5 [facility] Comment on above: Performed By: #### C BC #### [facility] [address] [place] [address] Dr. Sunny Ortez Neutrophils/100 WBC (Bld) 67.8 % Normal 43.0-75.0 [facility] Comment on above: Performed By: #### C BC #### [facility] [address] [place] [address] Dr. Sunny Ortez Platelet mean volume (Bld) [Entitic vol] 9.5 fL Normal 9.5-13.5 [facility] Comment on above: Performed By: #### C BC #### [facility] [address] [place] [address] Dr. Sunny Ortez PLT 322 103/ul Normal 150-450 [facility] Comment on above: Performed By: #### C BC #### [facility] [address] [place] [address] Dr. Sunny Ortez RBC 5.45 106/ul Normal 4.70-6.10 [facility] Comment on above: Performed By: #### C BC #### [facility] [address] [place] [address] Dr. Sunny Ortez WBC 10.4 103/ul Normal 4.0-11.0 [facility] Comment on above: Performed By: #### C BC #### [facility] [address] [place] [address] Dr. Sunny Ortez FREE THYROXINE INDEX T7on FTI 3.01 Normal [facility] Comment on above: Performed By: #### C MP #### [facility] [address] [place] [address] Dr. Sunny Ortez T3U 35.0 % Normal 23.5-40.5 [facility] Comment on above: Performed By: #### C MP #### [facility] [address] [place] [address] Dr. Sunny Ortez T4 [Mass/Vol] 8.60 ug/dL Normal 5.53-11.00 [facility] Comment on above: Performed By: #### C MP #### [facility] [address] [place] [address] Dr. Sunny Ortez GLYCOHEMOGLOBIN A1Con 2021 ADA RECOMMENDATION ADA THERAPEUTIC TARG ET 6.0 - 7.0 ACTION SUGGESTED > 7.0 Normal [facility] Comment on above: Performed By: #### A 1C #### [facility] [address] [place] [address] Dr. Sunny Ortez Glucose [Mass/Vol] 197 mg/dL Normal [facility] Comment on above: Performed By: #### A 1C #### [facility] [address] [place] [address] Dr. Sunny Ortez HbA1c (Bld) [Mass fraction] 8.5 % Critically high <=6.0 [facility] Comment on above: Performed By: #### A 1C #### [facility] [address] [place] [address] Dr. Sunny Ortez LIPID PROFILEon 03-24-2021 CHOL-HDL RATIO NORM SEE BELOW Normal [facility] Comment on above: Result Comment: 3.3 - 4.4 LOW RISK 4.4 - 7.1 AVERAGE RISK 7.1 - 11.0 MODERATE RISK >11.0 HIGH RISK Performed By: #### C MP #### [facility] [address] [place] [address] Dr. Sunny Ortez Cholesterol [Mass/Vol] 150 mg/dL Normal <=200 Th [facility] Comment on above: Performed By: #### C MP #### [facility] [address] [place] [address] Dr. Sunny Ortez Cholesterol in HDL [Mass/Vol] 30 mg/dL Normal [facility] Comment on above: Performed By: #### C MP #### [facility] [address] [place] [address] Dr. Sunny Ortez Cholesterol in LDL [Mass/Vol] 96.8 mg/dL Normal [facility] Comment on above: Performed By: #### C MP #### [facility] [address] [place] [address] Dr. Sunny Ortez Cholesterol.total/Chol esterol in HDL [Mass ratio] 5.0 {ratio} Normal [facility] Comment on above: Performed By: #### C MP #### [facility] [address] [place] [address] Dr. Sunny Ortez HDL NORMAL > or = 60 mg/dl - LO W CARDIOVASCULAR RISK <40 mg/dl - HIGH CARDIOVASCULAR RISK Normal [facility] Comment on above: Performed By: #### C MP #### [facility] [address] [place] [address] Dr. Sunny Ortez LDL CALC NORMAL SEE BELOW Normal [facility] Comment on above: Result Comment: <100 mg/dl OPTIMAL 100 - 129 mg/dl NEAR OR ABOVE OPTIMAL 130 - 159 mg/dl BORDERLINE HIGH 160 - 189 mg/dl HIGH >190 mg/dl VERY HIGH Performed By: #### C MP #### [facility] [address] [place] [address] Dr. Sunny Ortez Triglyceride [Mass/Vol] 116 mg/dL Normal <=150 [facility] Comment on above: Performed By: #### C MP #### [facility] [address] [place] [address] Dr. Sunny Ortez VLDL CALC 23.2 mg/dL Normal [facility] Comment on above: Performed By: #### C MP #### [facility] [address] [place] [address] Dr. Sunny Ortez PROF 14(COMP METB)on 022 Albumin [Mass/Vol] 3.5 g/dL Normal 3.5-5.0 [facility] Comment on above: Performed By: #### C MP #### [facility] [address] [place] [address] Dr. Sunny Ortez Albumin/Globulin [Mass ratio] 1.0 {ratio} Normal [facility] Comment on above: Performed By: #### C MP #### [facility] [address] [place] [address] Dr. Sunny Ortez ALP [Catalytic activity/Vol] 73 U/L Normal 38-126 [facility] Comment on above: Performed By: #### C MP #### [facility] [address] [address] [address] Sunny Ortez ALT [Catalytic activity/Vol] 28 U/L Normal 21-72 [facility] Comment on above: Performed By: #### C MP #### [facility] [address] [address] [address] Sunny Ortez Anion gap [Moles/Vol] 14.7 mmol/L Normal Th [facility] Comment on above: Performed By: #### C MP #### [facility] [address] [address] [address] Sunny Ortez AST [Catalytic activity/Vol] 13 U/L Critically low 17-59 [facility] Comment on above: Performed By: #### C MP #### [facility] [address] [address] [address] Sunny Ortez Bilirubin [Mass/Vol] 0.7 mg/dL Normal 0.2-1.3 [facility] Comment on above: Performed By: #### C MP #### [facility] [address] [address] [address] Sunny Ortez Calcium [Mass/Vol] 8.6 mg/dL Normal 8.4-10.2 [facility] Comment on above: Performed By: #### C MP #### [facility] [address] [address] [address] Sunny Ortez Chloride [Moles/Vol] 105 mmol/L Normal 98-107 [facility] Comment on above: Performed By: #### C MP #### [facility] [address] [address] [address] Sunny Ortez CO2 [Moles/Vol] 23.6 mmol/L Normal 22.0-30.0 [facility] Comment on above: Performed By: #### C MP #### [facility] [address] [address] [address] Sunny Ortez Creatinine [Mass/Vol] 1.33 mg/dL Critically high 0.66-1.25 [facility] Comment on above: Performed By: #### C MP #### [facility] [address] [address] [address] Sunny Ortez EGFR-AF JAPANESE >60 Normal >=60 [facility] Comment on above: Performed By: #### C MP #### [facility] [address] [address] [address] Sunny Ortez EGFR-NON AF JAPANESE 55 mL/min/1.73m2 Critically low >=60 [facility] Comment on above: Performed By: #### C MP #### [facility] [address] [address] [address] Sunny Ortez Globulin (S) [Mass/Vol] 3.6 g/dL Normal [facility] Comment on above: Performed By: #### C MP #### [facility] [address] [address] [address] Sunny Ortez Glucose [Mass/Vol] 253 mg/dL Critically high 74-106 T [facility] Comment on above: Performed By: #### C MP #### [facility] [address] [address] [address] Sunny Ortez Potassium [Moles/Vol] 4.3 mmol/L Normal 3.4-5.0 [facility] Comment on above: Performed By: #### C MP #### [facility] [address] [address] [address] Sunny Ortez Protein [Mass/Vol] 7.1 g/dL Normal 6.1-8.2 [facility] Comment on above: Performed By: #### C MP #### [facility] [address] [address] [address] Sunny Ortez Sodium [Moles/Vol] 139 mmol/L Normal 137-145 [facility] Comment on above: Performed By: #### C MP #### [facility] [address] [address] [address] Sunny Ortez Urea nitrogen [Mass/Vol] 18.0 mg/dL Normal 9.0-20.0 [facility] Comment on above: Performed By: #### C MP #### [facility] [address] [address] [address] Sunny Ortez Urea nitrogen/Creatinine [Mass ratio] 13.5 mg/mg Normal [facility] Comment on above: Performed By: #### C MP #### [facility] [address] [place] [address] Dr. Sunny Ortez TSHon 03-24-2021 TSH 1.335 uIU/mL Normal 0.470-4.68 0 [facility] Comment on above: Performed By: #### C MP #### [facility] [address] [address] [address] Sunny Ortez TSH RANGE SEE BELOW Normal [facility] Comment on above: Result Comment: <0.3 4 UIU/ml HYPERTHYROID 0.34-5.60 UIU/ml EUTHYROID >5.60 UIU/ml HYPOTHYROID Performed By: #### C MP #### [facility] [address] [place] [address] Dr. Sunny Ortez URIC ACID SERUMon 03-24-2021 Urate [Mass/Vol] 4.9 mg/dL Normal 3.5-8.5 [facility] Comment on above: Performed By: #### C MP #### [facility] [address] [place] [address] Dr. Sunny Ortez Basic Metabolic Panlon 06-20 Anion gap [Moles/Vol] 11 mmol/L Normal 9-18 [facility] Calcium [Mass/Vol] 8.9 mg/dL Normal 8.5-10.2 [facility] Chloride [Moles/Vol] 106 mmol/L High 97-105 [facility] CO2 [Moles/Vol] 22 mmol/L Normal 22-30 [facility] Creatinine [Mass/Vol] 1.28 mg/dL High 0.73-1.22 [facility] eGFR- Amer. >60 Normal [facility] GFR/1.73 sq M predicted among non-blacks MDRD (S/P/Bld) [Vol rate/Area] 58 . Normal [facility] Comment on above: Result Comment: eGFR (Estimated [...] GFR. Glucose [Mass/Vol] 148 mg/dL High 74-99 [facility] Comment on above: Result Comment: The [place] Diabetes Association (ADA) provides guidance for cutoff [...] Standards of Medical Care in Diabetes 2016, [place] [employer]. Diabetes Care. 2016.39(Suppl 1). Potassium [Moles/Vol] 4.5 mmol/L Normal 3.7-5.1 [facility] Sodium [Moles/Vol] 139 mmol/L Normal 136-144 [facility] Urea nitrogen [Mass/Vol] 10 mg/dL Normal 9-24 [facility] -- CLARENCE FLORES ([id number]) 1960 M Date Time Provider Department 06/21/19 DIANE DILLON) FRIDA During your visit today, we recorded the following information about you: Diane Dillon PA-C 06/21/2019 2:[address] and CXR with no recurrence or mets. Repeat CT and CXR in 6M. Patient to schedule on his own at [facility] [place] Dillon PA-C Pager [phone] Office [id number] Allergies As of Date: 06/21/2019 Noted Allergy Reaction NITROGLYCERIN 11/26/2018 14 - Other: See Comments Date Reviewed: 02/05/2019 Reviewed by: Diane Dunn) Darshana - Fully Assessed Reason for Visit: Results [95] Primary Visit Diagnosis:Left renal mass [N28.89] Other Visit Diagnosis:Renal cell carcinoma of left kidney (HCC) [C64.2] Order(s):XR CHEST 2V FRONTAL/LAT [[id number]] Order #: [id number] FUTURE CT ABD/PEL W IVCON [[id number]] Order #: [id number] FUTURE iv contrast (will be provided with [...] by DIANE DILLON PA-C on 06/21/19 Normal [facility] CT ABD/PEL W IVCONon 020 CT ABD/PEL W IVCON * * *Final Report* * * DATE OF EXAM: Jun 21 2019 9:40AM [facility] 0530 - CT ABD/PEL W IVCON / [...] any questions regarding this interpretation, please call [phone]. If you are unable to reach us at the number above, please feel free to contact [facility]iology at [phone]. [id number] Normal [facility] PROGRESSon 06-21-2019 PROGRESS HNO ID: [id number] Author: Holly Garcia (Tech) Service: ? Author Type: Construction Job Cost Estimator Type: Progress Notes Filed: 06/21/2019 2:25 PM [...] Garcia June 21, 2019 2:24 PM Normal [facility] PROGRESS HNO ID: [id number] Author: Holly Garcia (Tech) Service: ? Author Type: Construction Job Cost Estimator Type: Progress Notes Filed: 06/21/2019 9:51 AM [...] safety can be found using this link: [email or web address]. [email or web address] SIGNATURE: Holly Garcia PATIENT NAME: Clarence Flores DATE: June 21, 2019 TIME: 8:39 AM PAGER/CONTACT #: Normal [facility] XR CHEST 2V FRONTAL/LATon XR CHEST 2V [...] any questions regarding this interpretation, please call [phone]. If you are unable to reach us at the number above, please feel free to contact [facility]iology at [phone]. [id number] Normal [facility]2019 CNPN Telephone (RADTSA) -- CLARENCE FLORES ([id number]) 1960 M Date Time Provider Department 06/17/19 MAICO ANG (HISTORICAL) RADTSA During your visit today, we recorded the following information about you: Clarisse Alicia 06/17/2019 3:19 PM Signed Clarence Flores [id number] is coming in Tuesday 06/20 for CTs w/IV on; please sign pending ISTAT BMP as our lab's chemistry will be down that day and he will need CRE clearance prior to. Thanks Clarisse Alicia distributed energy systems consultant [place] Allergies As of Date: 06/17/2019 Noted Allergy Reaction NITROGLYCERIN 11/26/2018 14 - Other: See Comments Date Reviewed: 02/05/2019 Reviewed by: Diane Shah (Guerda Dillon - Fully Assessed Reason for Visit: Orders [681] Primary Visit Diagnosis:Left renal mass [N28.89] Order(s):ISTAT BMP [SQISTBMP] Order #: [id number] FUTURE Prescriptions as of 06/17/2019 Sig: IV [...] by DIANE DILLON PA-C on 06/17/19 Normal [facility] Reminderson 03-29-2019 Reminders - From: Jackie Lundberg To: EU - Recalls Sales; Sent: 12/07/2018 14:58:31 EDT Show up: 03/13/2019 14:58:00 EST Subject: ct scan of chest w contrast Due Date/Time: 04/09/2019 14:58:00 EST Reminder/Recall Schedule repeat testing. Test: CT Scan of chest with contrast Test due in: _ 4 months due in Mar 2019 Left message on LOFTYil. Pt being discharged due to noncompliance Normal [facility] CNOVon 02-05-2019 CNOV Office Visit (UROLMN ) -- CLARENCE FLORES ([id number]) 1960 M Date Time Provider Department 02/05/19 10:50 AM DIANE DILLON) UROLMN During your visit today, we recorded the following information about you: Pulse Blood pressure Weight Height 64/minute 179/81 120.5 kg 1.676 m Diane Dillon PA-C 02/05/2019 10:49 AM Signed [facility]YSIC[facility] POST-OPERATIVE PATIENT CC: Patient is here [...] PA-C Electronically signed Referring Provider: MAICO ANG [[id number]] Allergies As of Date: 02/05/2019 Noted Allergy Reaction NITROGLYCERIN 11/26/2018 14 - Other: See Comments Date Reviewed: 02/05/2019 Reviewed by: Diane Dillon - Fully Assessed Visit Diagnosis:Renal cell carcinoma of left kidney (HCC) [C64.2] Order(s):CT ABD/PEL W IVCON [[id number]] Order #: [id number] FUTURE iv contrast (will be provided with [...] 1 EachRfl: 0 XR CHEST 2V FRONTAL/LAT [[id number]] Order #: [id number] FUTURE BASIC METABOLIC PNL [SQBMP] Order #: [id number] FUTURE Prescriptions as of 02/05/2019 Sig: HYDRALAZINE [...] Status:Closed by DIANE DILLON PA-C on 02/05/19 [facility] CNPTOUTREAMaria M 02-05-2019 [facility] Patient Outreach (UR OLMN) -- CLARENCE FLORES ([id number]) 1960 M Date Time Provider Department 02/05/19 DIANE DILLON) UROJenny During your visit today, we recorded the following information about you: Allergies As of Date: 02/05/2019 Noted Allergy Reaction NITROGLYCERIN 11/26/2018 14 - Other: See Comments Date Reviewed: 02/05/2019 Reviewed by: Diane Dunn) Darshana - Fully Assessed Visit Diagnosis:Screening for genitourinary condition [Z13.89] Order(s):UA CHEMSTRIP ONLY [SQUA] Order #: [id number]. #:[id number] Prescriptions as of 02/05/2019 Sig: IV CONTRAST [...] Renal neoplasm [D49.519] 12/22/2018 Encounter Status:Closed by Bass ManagerELAINEUSELynn on 02/22/19 Normal [facility] PROGRESSon 02-05-2019 PROGRESS HNO ID: [id number] Author: Diane Dunn) Darshana Service: ? Author Type: Physician Demurrage Clerk Type: Progress Notes Filed: 02/05/2019 10:49 AM Note Text: [facility] POST-OPERATIVE PATIENT CC: Patient is here [...] arise Diane Dillon PA-C Electronically signed Normal [facility] Urinalysison 02-05-2019 Bilirubin, Urine Negative Normal Negative Kye bonilla [facility] Comment on above: Performed By: #### U A ####[facility] [place] [address] [phone] Clarity (U) Clear Normal Clear [facility] Comment on above: Performed By: #### U A ####[id number] [place], [place] [phone] Color (U) Yellow Normal Yellow [facility] Comment on above: Performed By: #### U A ####[address] [phone] Comments SEE COMMENT Normal [facility] Comment on above: Result Comment: Micr oscopic not warranted Performed By: #### U A ####[address] [address] [address] [phone] Glucose Ql (U) Negative Normal Negative [facility] Comment on above: Performed By: #### U A ####[address] [address] [address] [phone] Hemoglobin/Blood,Ur Negative Normal Negative [facility] Comment on above: Performed By: #### U A ####[address] [address] [address] [phone] Ketones Ql (U) Negative Normal Negative [facility] Comment on above: Performed By: #### U A ####[address] [address] [phone] Leukest Negative Normal Negative [facility] Comment on above: Performed By: #### U A ####[address] [address] [phone] Nitrite Ql (U) Negative Normal Negative [facility] Comment on above: Performed By: #### U A ####[address] [address] [phone] pH (Bld) 6.5 Normal 4.5-8.0 [facility] Comment on above: Performed By: #### U A ####[address] [address] [phone] Protein (U) [Mass/Vol] Trace Criticall y abnormal Negative [facility] Comment on above: Performed By: #### U A ####[address] [address] [phone] Specific [place], Ur 1.020 Normal 1.005-1 .03 0 [facility] Comment on above: Performed By: #### U A ####[address] [address] [address], [place] [phone] Urine Shin Comment SEE COMMENT Normal [facility] Comment on above: Result Comment: N/A Performed By: #### U A ####[address] [address] [address], [place] [phone] Urobilinogen Qn (U) Normal Normal Normal [facility] Comment on above: Performed By: #### U A ####[address] [phone] Basic Metabolic Panlon 12-25 Anion gap [Moles/Vol] 9 mmol/L Normal 9-18 [facility] Comment on above: Performed By: #### C BCDIF, BMP ####[address] [phone] Calcium [Mass/Vol] 8.3 mg/dL Low 8.5-10.2 [facility] Comment on above: Performed By: #### C BCDIF, BMP ####[address] [address] [address] [phone] Chloride [Moles/Vol] 109 mmol/L High 97-105 [facility] Comment on above: Performed By: #### C BCDIF, BMP ####[address] [address] [phone] CO2 [Moles/Vol] 21 mmol/L Low 22-30 [facility] Comment on above: Performed By: #### C BCDIF, BMP ####[address] [address] [address], [place] [phone] Creatinine [Mass/Vol] 1.24 mg/dL High 0.73-1.22 [facility] Comment on above: Performed By: #### C BCDIF, BMP ####[address] [address] [address], [place] [phone] eGFR- Amer. >60 Normal [facility] Comment on above: Performed By: #### C BCDIF, BMP ####[facility] [place], [place] [phone] GFR/1.73 sq M predicted among non-blacks MDRD (S/P/Bld) [Vol rate/Area] mL/min/{1.73_m2} Normal [facility] Comment on above: Result Comment: eGFR (Estimated [...] GFR. Performed By: #### C BCDIF, BMP ####[facility] [place], [place] [phone] Glucose [Mass/Vol] 117 mg/dL High 74-99 [facility] Comment on above: Result Comment: The [place] Diabetes Association (ADA) provides guidance for cutoff [...] Standards of Medical Care in Diabetes 2016, [place] [employer]. Diabetes Care. 2016.39(Suppl 1). Performed By: #### C BCDIF, BMP ####[facility] [place], [place] [phone] Potassium [Moles/Vol] 3.8 mmol/L Normal 3.7-5.1 [facility] Comment on above: Performed By: #### C BCDIF, BMP ####[address] [address] [address] [phone] Sodium [Moles/Vol] 139 mmol/L Normal 136-144 [facility] Comment on above: Performed By: #### C BCDIF, BMP ####[address] [address] [address] [phone] Urea nitrogen [Mass/Vol] 16 mg/dL Normal 9-24 [facility] Comment on above: Performed By: #### C BCKRYSTAL, BMP ####[address] [address] [address] [phone] CBC and Differentialon 12-25 Abs Baso 0.04 k/uL Normal <0.11 [facility] Comment on above: Performed By: #### C BCDIF, BMP ####[address] [address] [phone] Abs [place] 1.12 k/uL High <0.87 [facility] Comment on above: Performed By: #### C BCDIF, BMP ####[address] [phone] Abs Neut 9.63 k/uL High 1.45-7.50 [facility] Comment on above: Performed By: #### C BCDIF, BMP ####[address] [address], [place] [phone] Absolute nRBC <0.01 Normal <0.01 [facility] Comment on above: Performed By: #### C BCDIF, BMP ####[address] [address] [address] [phone] Basophils/100 WBC (Bld) 0.3 % Normal [facility] Comment on above: Performed By: #### C BCDIF, BMP ####[address] [address], [place] [phone] DTYPE Auto Diff Normal [facility] Comment on above: Performed By: #### C BCDIF, BMP ####[address] [address] [address] [phone] Eosinophils (Bld) [#/Vol] 0.24 10*3/uL Normal <0.46 [facility] Comment on above: Performed By: #### C BCDIF, BMP ####[address] [address] [address] [phone] Eosinophils/100 WBC (Bld) 2.0 % Normal [facility] Comment on above: Performed By: #### C BCDIF, BMP ####[place] [address] [place] [phone] Erythrocyte distribution width (RBC) [Ratio] 13.7 % Normal 11.5-15.0 [facility] Comment on above: Performed By: #### C BCDIF, BMP ####[place] [address] [place] [phone] Hematocrit (Bld) [Volume fraction] 39.9 % Normal 39.0-51.0 [facility] Comment on above: Performed By: #### C BCDIF, BMP ####[place] [address]Clevel[address] [phone] Hemoglobin (Bld) [Mass/Vol] 13.3 g/dL Normal 13.0-17.0 [facility] Comment on above: Performed By: #### C BCDIF, BMP ####[place] [address] [place] [phone] Lymphocytes (Bld) [#/Vol] 1.25 10*3/uL Normal 1.00-4.00 [facility] Comment on above: Performed By: #### C BCDIF, BMP ####[place] [address], [place] [phone] Lymphocytes/100 WBC (Bld) 10.2 % Normal [facility] Comment on above: Performed By: #### C BCDIF, BMP ####[place] [address], [place] [phone] MCH (RBC) [Entitic mass] 29.3 pG Normal 26.0-34.0 [facility] Comment on above: Performed By: #### C BCDIF, BMP ####[place] [address], [place] [phone] MCHC (RBC) [Mass/Vol] 33.3 g/dL Normal 30.5-36.0 [facility] Comment on above: Performed By: #### C BCDIF, BMP ####[place] [address], [place] [phone] MCV (RBC) [Entitic vol] 87.9 fL Normal 80.0-100.0 [facility] Comment on above: Performed By: #### C BCDIF, BMP ####[place] [address], [place] [phone] Monocytes/100 WBC (Bld) 9.1 % Normal [facility] Comment on above: Performed By: #### C BCDIF, BMP ####[place] [address], [place] [phone] Neutrophils/100 WBC (Bld) 78.4 % Normal [facility] Comment on above: Performed By: #### C BCDIF, BMP ####[place] [address], [place] [phone] NRBCs 0.0 /100 WBC Normal 0 [facility] Comment on above: Performed By: #### C BCDIF, BMP ####[place] [address], [place] [phone] Platelet mean volume (Bld) [Entitic vol] 9.6 fL Normal 9.0-12.7 [facility] Comment on above: Performed By: #### C BCDIF, BMP ####[facility], [place] [phone] Platelets (Bld) [#/Vol] 241 10*3/uL Normal 150-400 [facility] Comment on above: Performed By: #### C BCDIF, BMP ####[facility], [place] [phone] RBC (Bld) [#/Vol] 4.54 10*6/uL Normal 4.20-6.00 [facility] Comment on above: Performed By: #### C BCDIF, BMP ####[facility], [place] [phone] WBC (Bld) [#/Vol] 12.28 10*3/uL High 3.70-11.00 [facility] Comment on above: Performed By: #### C BCDIF, BMP ####[facility], [place] [phone] PROGRESSon 12-25-2018 PROGRESS HNO ID: [id number] Author: Clarence Schmidt Service: Urology Author Type: Resident Type: Progress Notes Filed: 12/25/2018 9:45 AM Note Text: [facility] UROLOGY PROGRESS NOTE Name: Clarence Flores Bed: G090 [id number]/[id number] Date: December 25, 2018 After Hours [facility] Urology Service Pager: [phone] ASSESSMENT AND PLAN Clarence Flores is a [...] Imaging n/a Clarence Schmidt MD Personal Pager: [phone] For weekend or after hours issues [place] [phone] Normal [facility] PROGRESS HNO ID: [id number] Author: Kate Ruiz) Hrnchar Service: Urology Author Type: Nurse Practitioner [...] PRN - sodium chloride 0.65 % 2 [place] (AYR, OCEAN) 2 [place] EACH NOSTRIL PRN - tamsulosin ER 0.4 [...] to discharge. Signature: Kate Seymour CNP Pager: [phone] Date of service: 12/25/2018 Normal [facility] Basic Metabolic Panlon 12-24 Anion gap [Moles/Vol] 16 mmol/L Normal 9-18 [facility] Comment on above: Performed By: #### C BCDIF, BMP ####[facility] [place] [phone] Calcium [Mass/Vol] 8.7 mg/dL Normal 8.5-10.2 [facility] Comment on above: Performed By: #### C BCDIF, BMP ####[place] [address], [place] [phone] Chloride [Moles/Vol] 104 mmol/L Normal 97-105 [facility] Comment on above: Performed By: #### C BCDIF, BMP ####[facility] [place] [phone] CO2 [Moles/Vol] 18 mmol/L Low 22-30 [facility] Comment on above: Performed By: #### C BCDIF, BMP ####[facility] [place] [phone] Creatinine [Mass/Vol] 1.26 mg/dL High 0.73-1.22 [facility] Comment on above: Performed By: #### C BCDIF, BMP ####[facility] [place] [phone] eGFR- Amer. >60 Normal [facility] Comment on above: Performed By: #### C BCDIF, BMP ####[facility], [place] [phone] GFR/1.73 sq M predicted among non-blacks MDRD (S/P/Bld) [Vol rate/Area] 59 . Normal [facility] Comment on above: Result Comment: eGFR (Estimated [...] GFR. Performed By: #### C NIRALI VINSON ####[facility], [place] [phone] Glucose [Mass/Vol] 117 mg/dL High 74-99 [facility] Comment on above: Result Comment: The [place] Diabetes Association (ADA) provides guidance for cutoff [...] Standards of Medical Care in Diabetes 2016, [place] [employer]. Diabetes Care. 2016.39(Suppl 1). Performed By: #### C NIRALI VINSON ####[facility] [address] [place], [place] [phone] Potassium [Moles/Vol] 4.0 mmol/L Normal 3.7-5.1 [facility] Comment on above: Performed By: #### C NIRALI VINSON ####[facility] [address] [place], [place] [phone] Sodium [Moles/Vol] 138 mmol/L Normal 136-144 [facility] Comment on above: Performed By: #### C BCDIF, BMP ####[place] [address] [place] [phone] Urea nitrogen [Mass/Vol] 15 mg/dL Normal 9-24 [facility] Comment on above: Performed By: #### C BCDIF, BMP ####[place] [address] [place] [phone] CBC and Differentialon 12-24 Abs Baso 0.06 k/uL Normal <0.11 [facility] Comment on above: Performed By: #### C BCDIF, BMP ####[place] [address] [place] [phone] Abs [place] 1.82 k/uL High <0.87 [facility] Comment on above: Performed By: #### C BCDIF, BMP ####[place] [address] [place] [phone] Abs Neut 13.61 k/uL High 1.45-7.50 [facility] Comment on above: Performed By: #### C BCDIF, BMP ####[place] [address] [place] [phone] Absolute nRBC <0.01 Normal <0.01 [facility] Comment on above: Performed By: #### C BCDIF, BMP ####[place] [address] [place] [phone] Basophils/100 WBC (Bld) 0.4 % Normal [facility] Comment on above: Performed By: #### C BCDIF, BMP ####[place] [address] [place] [phone] DTYPE Auto Diff Normal [facility] Comment on above: Performed By: #### C BCDIF, BMP ####[place] [address] [place] [phone] Eosinophils (Bld) [#/Vol] 0.03 10*3/uL Normal <0.46 [facility] Comment on above: Performed By: #### C BCDIF, BMP ####[place] [address] AveClevelScott [place] [phone] Eosinophils/100 WBC (Bld) 0.2 % Normal [facility] Comment on above: Performed By: #### C BCDIF, BMP ####[place] [address] [place] [phone] Erythrocyte distribution width (RBC) [Ratio] 13.7 % Normal 11.5-15.0 [facility] Comment on above: Performed By: #### C BCDIF, BMP ####[place] [address] [place] [phone] Hematocrit (Bld) [Volume fraction] 43.5 % Normal 39.0-51.0 [facility] Comment on above: Performed By: #### C BCDIF, BMP ####[place] [address] [place] [phone] Hemoglobin (Bld) [Mass/Vol] 14.5 g/dL Normal 13.0-17.0 [facility] Comment on above: Performed By: #### C BCDIF, BMP ####[place] [address] [place] [phone] Lymphocytes (Bld) [#/Vol] 1.16 10*3/uL Normal 1.00-4.00 [facility] Comment on above: Performed By: #### C BCDIF, BMP ####[place] [address]ClevelandCody [place] [phone] Lymphocytes/100 WBC (Bld) 7.0 % Normal [facility] Comment on above: Performed By: #### C BCDIF, BMP ####[place] [address] [place] [phone] MCH (RBC) [Entitic mass] 29.3 pG Normal 26.0-34.0 [facility] Comment on above: Performed By: #### C BCDIF, BMP ####[place] [address], [place] [phone] MCHC (RBC) [Mass/Vol] 33.3 g/dL Normal 30.5-36.0 [facility] Comment on above: Performed By: #### C BCDIF, BMP ####[place] [address], [place] [phone] MCV (RBC) [Entitic vol] 87.9 fL Normal 80.0-100.0 [facility] Comment on above: Performed By: #### C BCDIF, BMP ####[place] [address], [place] [phone] Monocytes/100 WBC (Bld) 10.9 % Normal [facility] Comment on above: Performed By: #### C BCDIF, BMP ####[place] [address], [place] [phone] Neutrophils/100 WBC (Bld) 81.5 % Normal [facility] Comment on above: Result Comment: Diff erential confirmed by visual scan of peripheral blood smear slide. Performed By: #### C BCDIF, BMP ####[place] [address], [place] [phone] NRBCs 0.0 /100 WBC Normal 0 [facility] Comment on above: Performed By: #### C BCDIF, BMP ####[place] [address], [place] [phone] Platelet mean volume (Bld) [Entitic vol] 9.6 fL Normal 9.0-12.7 [facility] Comment on above: Performed By: #### C BCDIF, BMP ####[place] [address], [place] [phone] Platelets (Bld) [#/Vol] 278 10*3/uL Normal 150-400 [facility] Comment on above: Performed By: #### C BCDIF, BMP ####[facility] [place], [place] [phone] RBC (Bld) [#/Vol] 4.95 10*6/uL Normal 4.20-6.00 [facility] Comment on above: Performed By: #### C BCDIF, BMP ####[facility] [place], [place] [phone] WBC (Bld) [#/Vol] 16.68 10*3/uL High 3.70-11.00 [facility] Comment on above: Performed By: #### C BCDIF, BMP ####[facility] [place], [place] [phone] PROGRESSon 12-24-2018 PROGRESS HNO ID: [id number] Author: Clarence (Breana) Roxana Service: Urology Author Type: Resident Type: Progress Notes Filed: 12/24/2018 10:00 AM Note Text: [facility] UROLOGY PROGRESS NOTE Name: Clarence Flores Bed: G090 [id number]/[id number] Date: December 24, 2018 After Hours [facility] Urology Service Pager: [phone] ASSESSMENT AND PLAN Clarence Flores is a [...] Imaging n/a Clarence Schmidt MD Personal Pager: [phone] For weekend or after hours issues [place] [phone] Normal [facility] Basic Metabolic Panlon 12-23 Anion gap [Moles/Vol] 14 mmol/L Normal - [facility] Comment on above: Performed By: #### C BCDIF, BMP ####[facility], [place] [phone] Calcium [Mass/Vol] 8.7 mg/dL Normal 8.5-10.2 [facility] Comment on above: Performed By: #### C BCDIF, BMP ####[place] [address], [place] [phone] Chloride [Moles/Vol] 102 mmol/L Normal 97-105 [facility] Comment on above: Performed By: #### C BCDIF, BMP ####[place] [address] [place] [phone] CO2 [Moles/Vol] 21 mmol/L Low 22-30 [facility] Comment on above: Performed By: #### C BCKATLYNF, BMP ####[place] [address], [place] [phone] Creatinine [Mass/Vol] 1.31 mg/dL High 0.73-1.22 [facility] Comment on above: Performed By: #### Pablo BCKATLYNF, BMP ####[place] [address]CP[address], [place] [phone] eGFR- Amer. >60 Normal [facility] Comment on above: Performed By: #### C BCDIF, BMP ####[place] [address], [place] [phone] GFR/1.73 sq M predicted among non-blacks MDRD (S/P/Bld) [Vol rate/Area] 57 . Normal [facility] Comment on above: Result Comment: eGFR (Estimated [...] accurately reflect actual GFR. Performed By: #### NIRALI MCKEON ####[facility] [place], [place] [phone] Glucose [Mass/Vol] 121 mg/dL High 74-99 [facility] Comment on above: Result Comment: The [place] Diabetes Association (ADA) provides guidance for cutoff [...] Standards of Medical Care in Diabetes 2016, [place] [employer]. Diabetes Care. 2016.39(Suppl 1). Performed By: #### NIRALI MCKEON ####[facility] [place] [address] [phone] Potassium [Moles/Vol] 4.0 mmol/L Normal 3.7-5.1 [facility] Comment on above: Performed By: #### NIRALI MCKEON ####[facility] [place], [place] [phone] Sodium [Moles/Vol] 137 mmol/L Normal 136-144 [facility] Comment on above: Performed By: #### NIRALI MCKEON ####[facility] [place], [place] [phone] Urea nitrogen [Mass/Vol] 11 mg/dL Normal 9-24 [facility] Comment on above: Performed By: #### NIRALI MCKEON ####[facility] [place], [place] [phone] CASE MGT INIT Sid 2018 CASE MGT INIT ROSARIO HNO ID: [id number] Author: Cornelius Diaz (Sw) Service: Care Management Author Type: Perishable Fruit Inspector Type: Care Mgt Initial Assessment Filed: 12/23/2018 4:27 PM Note Text: CARE MANAGEMENT: ASSESSMENT AND DISCHARGE PLAN SERVICE DATE: 12/23/2018 SERVICE TIME: 4:24 PM PRIMARY CARE PHYSICIAN: Stalin Beach MD ADMISSION STATUS: Observation Needs Prior to Discharge: None;Ready for Discharge 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 No Advance Directive: Current Advance Directive: Health Care Power of Dance Costume Designer In Chart: Yes Up To Date and [...] None Has the Patient Been in a Retirement Facility in the Past 30 days? No SOCIAL: Living Arrangement: Home Lives With: Son Financial Resources: Employed: [employer] Primary Contact: Extended Emergency Contact Information Primary Emergency Contact: AGUSTO ARANDAINA Mobile Relation: Daughter Supportive: Yes Other Important [...] 0 I feel financially burdened by my wer-ez-srxcgc expenses for my prescription medication: Disagree completely [...] 2018 TIME: 4:24 PM PAGER/CONTACT #: Normal [facility] CBC and Differentialon 12-23 Abs Baso 0.03 k/uL Normal <0.11 [facility] Comment on above: Performed By: #### C NIRALI VINSON ####[place] [address] [place], [place] [phone] Abs [place] 1.36 k/uL High <0.87 [facility] Comment on above: Performed By: #### Pablo VINSON BMP ####[facility] [address], [place] [phone] Abs Neut 16.73 k/uL High 1.45-7.50 [facility] Comment on above: Performed By: #### NIRALI MCKEON ####[place] [address] [place], [place] [phone] Absolute nRBC <0.01 Normal <0.01 [facility] Comment on above: Performed By: #### C BCNIRALI RICE ####[place] [address] [place], [place] [phone] Basophils/100 WBC (Bld) 0.2 % Normal [facility] Comment on above: Performed By: #### C KAREL BMP ####[place] [address], [place] [phone] DTYPE Auto Diff Normal [facility] Comment on above: Performed By: #### C KAREL, BMP ####[place] [address] [place] [phone] Eosinophils (Bld) [#/Vol] 10*3/uL Normal <0.46 [facility] Comment on above: Performed By: #### C KAREL, BMP ####[place] [address] [place] [phone] Eosinophils/100 WBC (Bld) 0.0 % Normal [facility] Comment on above: Performed By: #### C BCKRYSTAL, BMP ####[place] [address] [place] [phone] Erythrocyte distribution width (RBC) [Ratio] 13.3 % Normal 11.5-15.0 [facility] Comment on above: Performed By: #### C BCKRYSTAL, BMP ####[place] [address] [place] [phone] Hematocrit (Bld) [Volume fraction] 46.4 % Normal 39.0-51.0 [facility] Comment on above: Performed By: #### C BCDIF, BMP ####[place] [address] [place] [phone] Hemoglobin (Bld) [Mass/Vol] 15.3 g/dL Normal 13.0-17.0 [facility] Comment on above: Performed By: #### C BCDIF, BMP ####[place] [address] [place] [phone] Lymphocytes (Bld) [#/Vol] 0.94 10*3/uL Low 1.00-4.00 [facility] Comment on above: Performed By: #### C BCDIF, BMP ####[place] [address], [place] [phone] Lymphocytes/100 WBC (Bld) 4.9 % Normal [facility] Comment on above: Performed By: #### C BCDIF, BMP ####[place] [address] [place] [phone] MCH (RBC) [Entitic mass] 28.2 pG Normal 26.0-34.0 [facility] Comment on above: Performed By: #### C BCDIF, BMP ####[place] [address], [place] [phone] MCHC (RBC) [Mass/Vol] 33.0 g/dL Normal 30.5-36.0 [facility] Comment on above: Performed By: #### C BCDIF, BMP ####[place] [address], [place] [phone] MCV (RBC) [Entitic vol] 85.5 fL Normal 80.0-100.0 [facility] Comment on above: Performed By: #### C BCDIF, BMP ####[place] [address], [place] [phone] Monocytes/100 WBC (Bld) 7.1 % Normal [facility] Comment on above: Performed By: #### C BCDIF, BMP ####[place] [address], [place] [phone] Neutrophils/100 WBC (Bld) 87.8 % Normal [facility] Comment on above: Performed By: #### C BCDIF, BMP ####[place] [address] [place], [place] [phone] NRBCs 0.0 /100 WBC Normal 0 [facility] Comment on above: Performed By: #### C BCDIF, BMP ####[facility] [address]CP[address], [place] [phone] Platelet mean volume (Bld) [Entitic vol] 9.5 fL Normal 9.0-12.7 [facility] Comment on above: Performed By: #### C BCDIF, BMP ####[facility], [place] [phone] Platelets (Bld) [#/Vol] 315 10*3/uL Normal 150-400 [facility] Comment on above: Performed By: #### C BCDIF, BMP ####[place] [address], [place] [phone] RBC (Bld) [#/Vol] 5.43 10*6/uL Normal 4.20-6.00 [facility] Comment on above: Performed By: #### C BCDIF, BMP ####[place] [address], [place] [phone] WBC (Bld) [#/Vol] 19.06 10*3/uL High 3.70-11.00 [facility] Comment on above: Performed By: #### C BCDIF, BMP ####[facility], [place] [phone] PROGRESSon 12-23-2018 PROGRESS HNO ID: [id number] Author: Clarence (Breana) Roxana Service: Urology Author Type: Resident Type: Progress Notes Filed: 12/23/2018 8:40 AM Note Text: [facility] UROLOGY PROGRESS NOTE Name: Clarence Flores Bed: G090 035/[id number] Date: December 23, 2018 After Hours [facility] Urology Service Pager: [phone] ASSESSMENT AND PLAN Clarence Flores is a [...] Imaging n/a Clarence Schmidt MD Personal Pager: [phone] For weekend or after hours issues [place] [phone] Normal [facility] ANES Ferny 12-22-2018 ANES POST HNO ID: [id number] Author: Salvatore Lacey Service: Anesthesiology Author Type: [...] 22, 2018 TIME: 12:16 PM PAGER/CONTACT #: [phone] Normal [facility] Basic Metabolic Panlon 12-22 Anion gap [Moles/Vol] 10 mmol/L Normal 9-18 [facility] Comment on above: Performed By: #### C BCDIF, BMP ####[place] [address], [place] [phone] Calcium [Mass/Vol] 8.0 mg/dL Low 8.5-10.2 [facility] Comment on above: Performed By: #### C BCDIF, BMP ####[place] [address], [place] [phone] Chloride [Moles/Vol] 105 mmol/L Normal 97-105 [facility] Comment on above: Performed By: #### C BCDIF, BMP ####[place] [address] [place] [phone] CO2 [Moles/Vol] 23 mmol/L Normal 22-30 [facility] Comment on above: Performed By: #### C BCKATLYNF, BMP ####[place] [address], [place] [phone] Creatinine [Mass/Vol] 1.17 mg/dL Normal 0.73-1.22 [facility] Comment on above: Performed By: #### Pablo BCKATLYNF, BMP ####[place] [address], [place] [phone] eGFR- Amer. >60 Normal [facility] Comment on above: Performed By: #### C BCDIF, BMP ####[place] [address], [place] [phone] GFR/1.73 sq M predicted among non-blacks MDRD (S/P/Bld) [Vol rate/Area] mL/min/{1.73_m2} Normal [facility] Comment on above: Result Comment: eGFR (Estimated [...] reflect actual GFR. Performed By: #### C KAREL, BMP ####[facility], [place] [phone] Glucose [Mass/Vol] 168 mg/dL High 74-99 [facility] Comment on above: Result Comment: The [place] Diabetes Association (ADA) provides guidance for cutoff [...] Standards of Medical Care in Diabetes 2016, [place] [employer]. Diabetes Care. 2016.39(Suppl 1). Performed By: #### C NIRALI VINSON ####[facility] [place], [place] [phone] Potassium [Moles/Vol] 5.5 mmol/L High 3.7-5.1 [facility] Comment on above: Result Comment: Resu lts may be falsely increased due to interference by hemolysis. Suggest reorder as clinically indicated. Performed By: #### C KAREL, BMP ####[facility] [place], [place] [phone] Sodium [Moles/Vol] 138 mmol/L Normal 136-144 [facility] Comment on above: Performed By: #### C KAREL, BMP ####[facility] [place], [place] [phone] Urea nitrogen [Mass/Vol] 9 mg/dL Normal 9-24 [facility] Comment on above: Performed By: #### C BCDIF, BMP ####[facility] [place], [place] [phone] CBC and Differentialon 12-22 Abs Baso 0.07 k/uL Normal <0.11 [facility] Comment on above: Performed By: #### C BCDIF, BMP ####[place] [address]Clevel[address] [place] [phone] Abs [place] 0.89 k/uL High <0.87 [facility] Comment on above: Performed By: #### C BCDIF, BMP ####[place] [address] [place] [phone] Abs Neut 13.53 k/uL High 1.45-7.50 [facility] Comment on above: Performed By: #### C BCDIF, BMP ####[place] [address] [place] [phone] Absolute nRBC <0.01 Normal <0.01 [facility] Comment on above: Performed By: #### C BCDIF, BMP ####[place] [address] [address] [place] [phone] Basophils/100 WBC (Bld) 0.4 % Normal [facility] Comment on above: Performed By: #### C BCDIF, BMP ####[place] [address] [address] [phone] DTYPE Auto Diff Normal [facility] Comment on above: Performed By: #### C BCDIF, BMP ####[place] [address] [address] [phone] Eosinophils (Bld) [#/Vol] 0.06 10*3/uL Normal <0.46 [facility] Comment on above: Performed By: #### C BCDIF, BMP ####[place] [address] [address] [place] [phone] Eosinophils/100 WBC (Bld) 0.4 % Normal [facility] Comment on above: Performed By: #### C BCDIF, BMP ####[place] [address] [address], [place] [phone] Erythrocyte distribution width (RBC) [Ratio] 13.6 % Normal 11.5-15.0 [facility] Comment on above: Performed By: #### C BCDIF, BMP ####[place] [address] [address] [place] [phone] Hematocrit (Bld) [Volume fraction] 46.4 % Normal 39.0-51.0 [facility] Comment on above: Performed By: #### C BCDIF, BMP ####[place] [address] [address], [place] [phone] Hemoglobin (Bld) [Mass/Vol] 15.4 g/dL Normal 13.0-17.0 [facility] Comment on above: Performed By: #### C BCDIF, BMP ####[place] [address] [address] [place] [phone] Lymphocytes (Bld) [#/Vol] 1.09 10*3/uL Normal 1.00-4.00 [facility] Comment on above: Performed By: #### C BCDIF, BMP ####[place] [address] [address] [place] [phone] Lymphocytes/100 WBC (Bld) 7.0 % Normal [facility] Comment on above: Performed By: #### C BCDIF, BMP ####[place] [address] [address], [place] [phone] MCH (RBC) [Entitic mass] 28.7 pG Normal 26.0-34.0 [facility] Comment on above: Performed By: #### C BCDIF, BMP ####[place] [address] [address] [place] [phone] MCHC (RBC) [Mass/Vol] 33.2 g/dL Normal 30.5-36.0 [facility] Comment on above: Performed By: #### C BCKRYSTAL, BMP ####[place] [id number] AveCP[place], [place] [phone] MCV (RBC) [Entitic vol] 86.4 fL Normal 80.0-100.0 [facility] Comment on above: Performed By: #### C BCKRYSTAL, BMP ####[place] [address] [address], [place] [phone] Monocytes/100 WBC (Bld) 5.7 % Normal [facility] Comment on above: Performed By: #### C BCKRYSTAL, BMP ####[place] [address] [address], [place] [phone] Neutrophils/100 WBC (Bld) 86.5 % Normal [facility] Comment on above: Performed By: #### C BCKRYSTAL, BMP ####[place] [address] [address], [place] [phone] NRBCs 0.0 /100 WBC Normal 0 [facility] Comment on above: Performed By: #### C BCKRYSTAL, BMP ####[place] [address] [address], [place] [phone] Platelet mean volume (Bld) [Entitic vol] 9.8 fL Normal 9.0-12.7 [facility] Comment on above: Performed By: #### C BCDIF, BMP ####[place] [address] [address], [place] [phone] Platelets (Bld) [#/Vol] 263 10*3/uL Normal 150-400 [facility] Comment on above: Performed By: #### C BCDIF, BMP ####[place] [address] [address], [place] [phone] RBC (Bld) [#/Vol] 5.37 10*6/uL Normal 4.20-6.00 [facility] Comment on above: Performed By: #### C BCDIF, BMP ####[facility] [address] [place], [place] [phone] WBC (Bld) [#/Vol] 15.64 10*3/uL High 3.70-11.00 [facility] Comment on above: Performed By: #### C BCDIF, BMP ####[facility] [address] [place], [place] [phone] CNCOon 12-22-2018 CNCO Letter Text Normal [facility] NURSING PROGon 12-22-2018 NURSING PROG HNO ID: [id number] Author: Yoly Eugene) Neal RN Service: Nursing Author Type: Registered Nurse [...] Jesus RN MSN In Department: HOSP MAIN [facility] Normal [facility] OPERATIVE NOon 12-22-2018 OPERATIVE NO HNO ID: [id number] Author: Cyrus Justice Service: Urology Author Type: Resident Type: Operative Report Filed: 12/22/2018 11:07 AM Note Text: -- Attestation signed by Maico Ang at 12/22/2018 11:58 AM . -- OPERATIVE/PROCEDURE REPORT LOG ID: [id number] Surgery/Procedure Date: 12/22/2018 Incision/Procedure Start Time: 8:19 AM Incision Close/Procedure End Time: 10:48 AM Surgeon(s)/Proceduralist(s ) and Demurrage Clerk(s): Surgeon(s) and Role: * Maico Ang - [...] 8-mm robotic ports and one 12-mm airseal assistant operator port were placed. The robot was then [...] under vision. We then extended our 12mm assistant operator port site cephalad and extracted our specimen through this. We then mobilized his umbilical hernia sac. Herniated mesentery was delivered out of the hernia sac and sac dissected completely free off the skin. The fascia was then closed using interrupted [id number] 0-prolene sutures. 3-0 vicryl was used to [...] 1.left renal neoplasm Tissue Kidney taken by [facility] Pathology Routine 2.hernia sac Tissue taken by [facility] Pathology Routine Implantable Devices: None Drains: 10-flat SHELBY drain and jacques catheter (18-thai coude with 10cc balloon) Complications: None Accidental [...] 22, 2018 TIME: 10:48 AM PAGER/CONTACT #: [phone] [facility] PROGRESSon 12-22-2018 PROGRESS HNO ID: [id number] Author: Clarence Schmidt Service: Urology Author Type: Resident Type: Progress Notes Filed: 12/22/2018 4:14 PM Note Text: [facility] UROLOGY PROGRESS NOTE Name: Clarence Flores Bed: G090 [id number]/[id number] Date: December 22, 2018 After Hours Main [facility] Pager: [phone] ASSESSMENT AND PLAN Clarence Flores is a [...] voluntary guarded without peritonitic signs, comfortable at [facility] Wound: Binder in place, dressing c/d/i : [...] Imaging n/a Clarence Schmidt MD Personal Pager: [phone] For weekend or after hours issues [place] [phone] [facility] PROGRESS HNO ID: [id number] Author: Valeria (Rn) FIORELLA Moreno Service: ? Author Type: Registered Nurse Type: Progress Notes Filed: 12/22/2018 2:26 PM Note Text: Admission/Transfer Note PATIENT NAME: Clarence Flores Patient admitted from PACU via stretcher in stable condition. Actions taken: Patient oriented to room, call light function, prescribed activities, Patient rights and Quiet at night. This note was completed by: Valeria Moreno RN [facility] Potassiumon 12-22-2018 Potassium [Moles/Vol] 4.2 mmol/L Normal 3.7-5.1 [facility] Comment on above: Performed By: #### K 1 ####[facility] [address] [place], [place] [phone] SURGICAL PATHOLOGYon 019 SURGICAL PATHOLOGY Specimen originated from [facility] Specimen #: [id number] Submitting Physician: MAICO ANG ([id number]) FINAL DIAGNOSIS [...] this case and concurs with the diagnosis. KAMINI/colt 12/23/2018 SYNOPTIC REPORT OF [place] PATHOLOGIC FINDINGS [...] Pathologic Findings in Nonneoplastic Kidney: Insufficient tissue Contract Serviceman Tumor Block: Specify: A1 ---- Meño Hamilton [...] appear to extend beyond the capsular surface. Contract Serviceman sections are submitted as follows: A1-A3 mass with renal sinus/parenchymal margin, A4-A5 mass with capsular surface. WE/glw 12/22/2018 B. Received fresh labeled hernia sac is a segment of cote pink fibromembranous soft tissue measuring 4.7 x 1.9 x 0.6 cm. No nodularity or induration is identified. Contract Serviceman sections are submitted in formalin in cassette B1. VINICIO/rw 12/22/2018 Gross examination performed at [facility], [address] [place] [address] Date of Report: 12/24/2018 Date of Procedure: 12/22/2018 Date of Receipt: 12/22/2018 Submitted by: MAICO ANG (Q10) Location: G90 Diagnostic interpretation performed at [facility], [address] [place] [address]. CLIA Number: [id number] Normal [facility] APTTon 12-17-2018 aPTT Coag (Bld) [Time] 28.8 s Normal 23.0-32.4 [facility] Comment on above: Result Comment: Unfr actionated [...] laboratory APTT reagent in use throughout the [facility]. Performed By: #### P T, PTT, CBC, CMP #### [place] [address] CBCon 12-17-2018 Absolute nRBC <0.01 Normal <0.01 [facility] Comment on above: Performed By: #### P T, PTT, CBC, CMP #### [place] [address] Erythrocyte distribution width (RBC) [Ratio] 13.2 % Normal 11.5-15.0 [facility] Comment on above: Performed By: #### P T, PTT, CBC, CMP #### [place] [phone] Hematocrit (Bld) [Volume fraction] 46.7 % Normal 39.0-51.0 [facility] Comment on above: Performed By: #### P T, PTT, CBC, CMP #### [address] [place], [place] [address] Hemoglobin (Bld) [Mass/Vol] 15.7 g/dL Normal 13.0-17.0 [facility] Comment on above: Performed By: #### P T, PTT, CBC, CMP #### [address] [address] MCH (RBC) [Entitic mass] 28.6 pG Normal 26.0-34.0 [facility] Comment on above: Performed By: #### P T, PTT, CBC, CMP #### [address] [address] MCHC (RBC) [Mass/Vol] 33.6 g/dL Normal 30.5-36.0 [facility] Comment on above: Performed By: #### P T, PTT, CBC, CMP #### [address] [address] MCV (RBC) [Entitic vol] 85.2 fL Normal 80.0-100.0 [facility] Comment on above: Performed By: #### P T, PTT, CBC, CMP #### [address] [address] Platelet mean volume (Bld) [Entitic vol] 9.9 fL Normal 9.0-12.7 [facility] Comment on above: Performed By: #### P T, PTT, CBC, CMP #### [address] [address] Platelets (Bld) [#/Vol] 322 10*3/uL Normal 150-400 [facility] Comment on above: Performed By: #### P T, PTT, CBC, CMP #### [address] [address] RBC (Bld) [#/Vol] 5.48 10*6/uL Normal 4.20-6.00 [facility] Comment on above: Performed By: #### P T, PTT, CBC, CMP #### [facility] [address] [place], [place] [address] WBC (Bld) [#/Vol] 9.33 10*3/uL Normal 3.70-11.00 [facility] Comment on above: Performed By: #### P T, PTT, CBC, CMP #### [facility] [address] [place], [place] [address] CNOVon 12-17-2018 CNOV Office Visit (PSSCMN ) -- CLARENCE FLORES ([id number]) 1960 M Date Time Provider Department 12/17/18 12:00 PM [facility] PSSCMN During your visit today, we recorded the [...] PAGER/CONTACT #: addendum labs and ekg to eumn; Aimee Romero RN Lab Value Units Date [...] 8:41:34 AM ? Referring Provider: MAICO ANG [[id number]] Allergies As of Date: 12/17/2018 Noted Allergy Reaction NITROGLYCERIN 11/26/2018 14 - Other: See Comments Date Reviewed: 12/17/2018 Reviewed by: Aimee Eugene) Linda - Fully Assessed Primary Visit Diagnosis:Pre-op [...] Chart Close Cosign Accepted by: PERCY BERTRAND MD[[id number]] Chart Close Cosign Accepted on: FriDec 17, 2018 12:54 PM Normal [facility] CNOV Office Visit (UROLMN ) -- CLARENCE FLORES ([id number]) 1960 M Date Time Provider Department 12/17/18 9:15 AM JESSICA HERRERA (PODIATRY DOCTOR) UROLMN During your visit today, we recorded the following information about you: Pulse Blood pressure Weight Height 64/minute 169/96 119.8 kg 1.676 m Jessica Herrera CNP 12/17/2018 9:57 AM Signed UROLOGY SURGICAL HANDP SERVICE DATE: 12/17/2018 REFERRING PROVIDER: Maico Ang MD [address] [facility] [address] PCP: Stalin Beach MD GENDER: SUBJECTIVE CHIEF COMPLAINT: Pre-op [...] or problems. No history of angina, CHF, OR, cardiac surgery of stents. +history of HTN [...] problems. Neurologic: No history of TIA's, stroke, SOCIAL INSURANCE ANALYST tumor, impaired sensorium, hemiplegia, paraplegia or quadriplegia. [...] 16, 2018 TIME: 12:38 PM PAGER/CONTACT #: [facility] PRE-OP NOTE Clarence [...] CNP Electronically signed Referring Provider: MAICO ANG [[id number]] Allergies As of Date: 12/17/2018 Noted Allergy [...] by JESSICA HERRERA CNP on 12/17/18 Normal [facility] Metabolic Panelon 12-17 Albumin [Mass/Vol] 4.3 g/dL Normal 3.9-4.9 [facility] Comment on above: Performed By: #### P T, PTT, CBC, CMP ####[place] [address] [address], [place] [phone] ALP [Catalytic activity/Vol] 56 U/L Normal 38-113 [facility] Comment on above: Performed By: #### P T, PTT, CBC, CMP ####[address] [phone] ALT [Catalytic activity/Vol] 22 U/L Normal 10-54 [facility] Comment on above: Performed By: #### P T, PTT, CBC, CMP ####[place] [address] [address], [place] [phone] Anion gap [Moles/Vol] 13 mmol/L Normal 9-18 [facility] Comment on above: Performed By: #### P T, PTT, CBC, CMP ####[place] [address] [address], [place] [phone] AST [Catalytic activity/Vol] 25 U/L Normal 14-40 [facility] Comment on above: Performed By: #### P T, PTT, CBC, CMP ####[address] [phone] Bilirubin [Mass/Vol] 0.4 mg/dL Normal 0.2-1.3 [facility] Comment on above: Performed By: #### P T, PTT, CBC, CMP ####[place] [address] [address], [place] [phone] Calcium [Mass/Vol] 9.3 mg/dL Normal 8.5-10.2 [facility] Comment on above: Performed By: #### P T, PTT, CBC, CMP ####[place] [address] [address], [place] [phone] Chloride [Moles/Vol] 105 mmol/L Normal 97-105 [facility] Comment on above: Performed By: #### P T, PTT, CBC, CMP ####[facility], [place] [phone] CO2 [Moles/Vol] 21 mmol/L Low 22-30 [facility] Comment on above: Performed By: #### P T, PTT, CBC, CMP ####[place] [address], [place] [phone] Creatinine [Mass/Vol] 1.20 mg/dL Normal 0.73-1.22 [facility] Comment on above: Performed By: #### P T, PTT, CBC, CMP ####[place] [address], [place] [phone] eGFR- Amer. >60 Normal [facility] Comment on above: Performed By: #### P T, PTT, CBC, CMP ####[place] [address], [place] [phone] GFR/1.73 sq M predicted among non-blacks MDRD (S/P/Bld) [Vol rate/Area] mL/min/{1.73_m2} Normal [facility] Comment on above: Result Comment: eGFR (Estimated [...] By: #### P T, PTT, CBC, CMP ####[facility], [place] [phone] Glucose [Mass/Vol] 105 mg/dL High 74-99 [facility] Comment on above: Result Comment: The [place] Diabetes Association (ADA) provides guidance for cutoff [...] Standards of Medical Care in Diabetes 2016, [place] [employer]. Diabetes Care. 2016.39(Suppl 1). Performed By: #### P T, PTT, CBC, CMP ####[facility] [place] [address] [phone] Potassium [Moles/Vol] 4.0 mmol/L Normal 3.7-5.1 [facility] Comment on above: Performed By: #### P T, PTT, CBC, CMP ####[facility] [place] [address] [phone] Protein [Mass/Vol] 7.1 g/dL Normal 6.3-8.0 [facility] Comment on above: Performed By: #### P T, PTT, CBC, CMP ####[facility], [place] [phone] Sodium [Moles/Vol] 139 mmol/L Normal 136-144 [facility] Comment on above: Performed By: #### P T, PTT, CBC, CMP ####[facility], [place] [phone] Urea nitrogen [Mass/Vol] 13 mg/dL Normal 9-24 [facility] Comment on above: Performed By: #### P T, PTT, CBC, CMP ####[place] [address] [place], [place] [phone] Confirm Blood Typeon 019 ABO/RH(D) Positive Normal [facility] Comment on above: Performed By: #### C ONABO ####[facility] [address] [place], [place] [phone] ECG COMPLETEon 12-17-2018 ECG COMPLETE NAME : CLARENCE FLORES PID : [id number] : 1960 Gender : Male Race : ORD : [id number] Procedure Date : Dec 17 2018 10:39:05 Edit Date : Dec 18 2018 08:41:40 Diagnosis:NORMAL SINUS RHYTHM NORMAL ECG Confirmed by TARIQ DRUMMOND MD ([id number]) on 12/18/2018 8:41:34 AM Ventricular Rate : 63 BPM Atrial Rate : 63 BPM P-R Interval : 160 ms QRS Duration : 94 ms Q-T Interval : 420 ms QTC Calculation(Bazett) : 429 ms P [place] : 36 degrees R [place] : 69 degrees T [place] : 80 degrees Test Reason : Location : 119 : A17 A17 Overread By : TARIQ DRUMMOND MD Edited By : TARIQ DRUMMOND MD Referred By : MAICO ANG Acquired by : PARIS ESTEVES [facility] PROGRESSon 12-17-2018 PROGRESS HNO ID: [id number] Author: Aimee Richards (Rn) Linda Service: ? [...] accompanied by self Case Discussed with Dr Elza OPTIMIZATION STATUS: Patient optimization pending Labs PACE [...] (65) on 12/18/2018 8:41:34 AM ? Normal [facility] Protimeon 12-17-2018 PT Coag (PPP) [Time] 10.8 s Normal 9.7-13.0 [facility] Comment on above: Performed By: #### P T, PTT, CBC, CMP #### [facility] [address] [place], [place] [address] PT Coag (PPP) [Time] 1.0 s Normal 0.9-1.3 [facility] Comment on above: Result Comment: Tyra min K Antagonist (VKA) Therapeutic Range: INR 2 to 3 (Target INR of 2.5) Note: For patients treated with VKA drugs, such as warfarin, the [place] [employer] 2012 Guideline recommends [...] #### P T, PTT, CBC, CMP #### [facility] [address] [place], [place] [address] Type and SCR (30D)on 019 ABO/RH(D) Positive Normal [facility] Comment on above: Performed By: #### T SCR30 ####[facility] [place], [place] [phone] CNPTOUTREACHon 12-16-2018 CNPTOUTREACH Patient Outreach (UR OLMN) -- CLARENCE FLORES ([id number]) 1960 M Date Time Provider Department 12/16/18 JESSICA HERRERA (PODIATRY DOCTOR) UROLMN During your visit today, we recorded the following information about you: Allergies As of Date: 12/16/2018 Noted Allergy Reaction NITROGLYCERIN 11/26/2018 14 - Other: See Comments Date Reviewed: 11/26/2018 Reviewed by: Monica Shah - Fully Assessed Visit Diagnosis:Screening for genitourinary condition [Z13.89] Order(s):UA CHEMSTRIP ONLY [SQUA] Order #: [id number] Prescriptions as of 12/16/2018 Sig: OXYCODONE 5 [...] Left renal mass [N28.89] Encounter Status:Closed by Bass Manager, PRODUSER on 12/31/18 Normal [facility] HISTORY PHYSICALon 9 HISTORY PHYSICAL HNO ID: [id number] Author: Jessica Ruiz) Summer Service: ? Author Type: Nurse Practitioner Type: HANDP Filed: 12/17/2018 9:57 AM Note Text: UROLOGY SURGICAL HANDP SERVICE DATE: 12/17/2018 REFERRING PROVIDER: Maico Ang MD [address] [facility] [address] PCP: Stalin Beach MD GENDER: SUBJECTIVE CHIEF COMPLAINT: Pre-op [...] or problems. No history of angina, CHF, OR, cardiac surgery of stents. +history of HTN [...] problems. Neurologic: No history of TIA's, stroke, SOCIAL INSURANCE ANALYST tumor, impaired sensorium, hemiplegia, paraplegia or quadriplegia. [...] 16, 2018 TIME: 12:38 PM PAGER/CONTACT #: [facility] PRE-OP NOTE Clarence [...] EKG. Jessica Herrera CNP Electronically signed Normal [facility] CNOVon 11-26-2018 CNOV Office Visit (UROLMN ) -- CLARENCE FLORES ([id number]) 1960 M Date Time Provider Department 11/26/18 9:00 AM MAICO ANG During your visit today, we recorded the following information about you: Pulse Blood pressure Weight Height 67/minute 165/98 118 kg 1.676 m Maico Ang MD 11/29/2018 6:01 AM Signed [facility] NEW PATIENT HISTORY AND PHYSICAL EXAM PATIENT INFO: Clarence Flores 58 year old REFERRING M.D.: Damien Sales MD [address] [place] [address] CHIEF COMPLAINT: left renal mass 58 y/o [...] file Gets together: Not on file Attends buddhist service: Not on file Active member of [...] PLAN: Per Staff Benton Dillon PA-C Pager [phone] Office [phone] I saw and evaluated the patient; the history and exam were reviewed with the PA/resident and confirmed by me; and the plan is outlined below. healthy 58 yr obese male with L lower pole [address] reviewed DW pt and family rec attempt RPNx they agree to proceed, will schedule Maico Ang MD Referring Provider: DAMIEN SALES [[id number]] Allergies As of Date: 11/26/2018 Noted Allergy [...] Status:Closed by MAICO ANG MD on 11/29/18 [facility] 11-26-2018 [facility] Patient:Clarence Flores MRN: Height:5' 6 (1.676 m) [...] 46.7 % 12/17/2018 51.0 39.0 Progress Notes ([facility]): Aimee Romero RN 12/21/2018 9:03 AM [...] PAGER/CONTACT #: addendum labs and ekg to [facility]; Aimee Romero RN Lab Value Units Date [...] Maico Ang MD 11/29/2018 6:01 AM Signed [facility] NEW PATIENT HISTORY AND PHYSICAL EXAM PATIENT INFO: Clarence Flores 58 year old REFERRING M.D.: Damien Sales MD [address] [place] [address] CHIEF COMPLAINT: left renal mass 58 y/o [...] file Gets together: Not on file Attends buddhist service: Not on file Active member of [...] PLAN: Per Staff Benton Dillon PA-C Pager [phone] Office [phone] I saw and evaluated the patient; the history and exam were reviewed with the PA/resident and confirmed by me; and the plan is outlined below. healthy 58 yr obese male with L lower pole [address] reviewed DW pt and family rec attempt RPNx they agree to proceed, will schedule Maico Ang MD Previous Version Normal [facility] PROGRESSon 11-26-2018 PROGRESS HNO ID: [id number] Author: Maico Ang Service: ? Author Type: Physician Type: Progress Notes Filed: 11/29/2018 6:01 AM Note Text: [facility] [place] NEW PATIENT HISTORY AND PHYSICAL EXAM PATIENT INFO: Clarence Mark 58 year old REFERRING M.D.: Damien Sales MD [address] [place] [address] CHIEF COMPLAINT: left renal mass 58 y/o [...] file Gets together: Not on file Attends buddhist service: Not on file Active member of [...] PLAN: Per Staff Benton Dillon PA-C Pager [phone] Office [phone] I saw and evaluated the patient; the history and exam were reviewed with the PA/resident and confirmed by me; and the plan is outlined below. healthy 58 yr obese male with L lower pole [address] reviewed DW pt and family rec attempt RPNx they agree to proceed, will schedule Maico Ang MD Normal [facility] Reminderson 11-23-2018 Reminders - From: Jackie Lundberg To: [facility] - Clinical; Sent: 11/17/2018 14:19:41 EDT Show up: 11/20/2018 08:00:00 EDT Subject: ct scan and PSA f/t Due Date/Time: 11/23/2018 14:19:00 EDT Reminder/Recall SHOW PW results of Ct scan of chest with contrast and PSA free and total done 11/20/18 at [facility] PT TO BE CALLED WITH RESULTS 11/20/18- [facility]- Ct scan of chest with contrast, PSA [...] in our office at this time. Normal [facility] OT-CT CHEST W CON IMPORTon 1 OT-CT CHEST W CON IMPORT Images were obtained outside of [facility] [id number] Normal [facility] OT-CT ABDOMEN WO/W CON IMPOR Ton 11-05-2018 OT-CT ABDOMEN WO/W CON IMPORT Images were obtained outside of [facility] [id number] Normal [facility] CT-CT ABD/PELVIS WO CON IMPO RTon 10-05-2018 CT-CT ABD/PELVIS WO CON IMPORT Images were obtained outside of [facility] [id number] Normal [facility] Vital Signs Date Time Vital Sign Value Performing Clinician Facility 04-23-2023 15:37-0400 Body mass index (BMI) [Ratio] 40.84 kg/m2 Andra Ramirez POSTAL TRANSPORTATION CLERK-PODIATRY DOCTOR Work Phone: [facility] 04-23-2023 15:37-0400 Body weight 114.76 kg Andra Ramirez POSTAL TRANSPORTATION CLERK-PODIATRY DOCTOR Work Phone: [facility] 04-23-2023 15:37-0400 Diastolic blood pressure 70 mm[Hg] Andra Ramirez POSTAL TRANSPORTATION CLERK-PODIATRY DOCTOR Work Phone: [facility] 04-23-2023 15:37-0400 Heart rate 82 /min Andra Ramirez POSTAL TRANSPORTATION CLERK-PODIATRY DOCTOR Work Phone: [facility] 04-23-2023 15:37-0400 Systolic blood pressure 112 mm[Hg] Andra Ramirez POSTAL TRANSPORTATION CLERK-PODIATRY DOCTOR Work Phone: [facility] 01-22-2023 15:36-0500 Body height 167.6 cm Andra Ramirez POSTAL TRANSPORTATION CLERK-PODIATRY DOCTOR Work Phone: [facility] 01-22-2023 15:36-0500 Body mass index (BMI) [Ratio] 44.87 kg/m2 Andra Ramirez POSTAL TRANSPORTATION CLERK-PODIATRY DOCTOR Work Phone: [facility] 01-22-2023 15:36-0500 Body weight 126.1 kg Andra Ramirez POSTAL TRANSPORTATION CLERK-PODIATRY DOCTOR Work Phone: [facility] 01-22-2023 15:36-0500 Diastolic blood pressure 98 mm[Hg] Andra Ramirez POSTAL TRANSPORTATION CLERK-PODIATRY DOCTOR Work Phone: [facility] 01-22-2023 15:36-0500 Heart rate 76 /min Andra Ramirez POSTAL TRANSPORTATION CLERK-PODIATRY DOCTOR Work Phone: [facility] 01-22-2023 15:36-0500 Systolic blood pressure 168 mm[Hg] Andra Ramirez POSTAL TRANSPORTATION CLERK-PODIATRY DOCTOR Work Phone: [facility] 2022 04:47-0400 Diastolic blood pressure 67 mm[Hg] MD Stalin Beach Work Phone: [facility] 2022 04:47-0400 Heart rate 72 /min MD Stalin Beach Work Phone: [facility] 2022 04:47-0400 Respiratory rate 20 /min MD Stalin Beach Work Phone: [facility] 2022 04:47-0400 SaO2% (BldA) [Mass fraction] 96 % MD Stalin Beach Work Phone: [facility] 2022 04:47-0400 Systolic blood pressure 147 mm[Hg] MD Stalin Beach Work Phone: [facility] 11-09-2022 22:35-0400 Body height 167.64 cm MD Stalin Beach Work Phone: [facility] 11-09-2022 22:35-0400 Body temperature 98 [degF] MD Stalin Beach Work Phone: [facility] 11-09-2022 22:35-0400 Body weight 129.8 kg MD Stalin Beach Work Phone: [facility] Encounters Encounter Date Encounter Type Care Provider Facility Start: 04-23-2023 End: 04-23-2023 Office outpatient visit 10 minutes Andra Ramirez POSTAL TRANSPORTATION CLERKEfield Work Phone: [facility] Comment on above: BMI 40.0-44.9, adult ([facility]) (Primary Dx); Essential hypertension Start: 01-22-2023 End: 01-22-2023 Office outpatient visit 15 minutes Andra Ramirez POSTAL TRANSPORTATION [place]KEfield Work Phone: [facility] Comment on above: Essential hypertensi on (Primary Dx); Chest pain, unspecified type; Obstructive sleep apnea; Diabetes mellitus type II, non insulin dependent ([facility]); Hypertensive left ventricular hypertrophy, without heart failure; BMI 40.0-44.9, adult ([facility]) Start: 12-16-2022 End: 12-16-2022 Subsequent hospital visit by physician Gema Richard Stress Room 1 [facility] Start: 2022 End: 11-12-[facility] Start: 2022 Evaluation and manag ement of inpatient MD Stalin Beach Work Phone: [facility] Work Phone: Start: 2022 observation encounter MD Ewa Beach Work Phone: [facility] Work Phone: Start: 11-24-2021 End: 11-25-[address] STALIN BEACH Facility:[facility] Start: 11-07-2021 Encounter for genera l adult medical examination without abnormal findings DR STALIN BEACH [facility] Start: 11-03-2021 End: 11-03-[address] STALIN BEACH Facility:[facility] Start: 11-03-2021 End: 11-03-2021 Encounter for general adult medical examination without abnormal findings DR STALIN BEACH Facility:[facility] Start: 10-31-2021 End: 10-31-[address] STALIN BEACH Facility:[facility] Start: 05-04-2021 End: 05-05-[address] STALIN BEACH Facility:[facility] Start: 04-12-2021 End: 04-13-[address] STALIN BEACH Facility:[facility] Start: 04-10-2021 End: 04-11-[address] STALIN BEACH Facility:[facility] Start: 04-09-2021 End: 04-10-[address] STALIN BEACH Facility:[facility] Start: 03-27-2021 End: 03-28-[address] STALIN BEACH Facility:[facility] Start: 03-25-2021 End: 03-25-2021 ambulatory MIKE RADFORD Facility:[facility] Start: 03-24-2021 End: 03-25-[address] STALIN BEACH Facility:[facility] Procedures Date Procedure Procedure Detail Performing Clinician Start: 12-17-2022 Cv strs tst xers&/or rx cont ecg trcg only Mike Morelos DO Work Phone: Start: 03-24-[address] ANA BEACH Comment on above: Performed By: #### C MP #### [facility] [address] [place] [address] Dr. Sunny Ortez Start: 12-17-2018 Antibody screen Comment on above: Performed By: #### T [id number] ####[facility] [id number] [place], [place] [phone] Plan of Treatment Date Care Activity Detail Author Start: 01-20-2024 End: 01-20-2024 Patient encounter procedure 01/20/2024 3:30 PM EST Office Visit [facility] [address] [facility] [address] [place] [address] Mike Morelos, [address] [facility] [address] [place] [address] [facility] Start: 03-25-2023 End: 03-25-2023 Patient encounter procedure 03/25/2023 3:30 PM EST Office Visit [facility] [address] [facility] [address] [place] [address] Andra Ramirez, POSTAL TRANSPORTATION CLERK-PODIATRY DOCTOR [address] [facility] [place] [address] [facility] Start: 12-17-2022 End: 12-17-2022 Professional / ancillary services management [facility] Start: 2022 Blood chemistry [facility] Start: 2022 Hospital admission [facility] Start: 2022 End: 2022 [facility] Start: 2022 Plain chest X-ray XR chest 2V* [facility] Start: 2022 XR Chest 2 Views [facility] Start: 10-11-2022 Influenza vaccination Influenza Vaccine (#1) [facility] Start: 2012 Zoster Vaccines (1 of 2) Zoster Vaccines (1 of 2) [facility] Start: 1984 DTaP/Tdap/Td Vaccines (1 - Tdap) DTaP/Tdap/Td Vaccines (1 - Tdap) [facility] Start: 1981 Urine screening for protein Diabetes: Urine Protein Screening [facility] Start: 1980 Hepatitis C screening Hepatitis C Screening [facility] Start: 1972 Diabetic foot examination Diabetes: Foot Exam [facility] Start: 1972 Glaucoma screening Diabetes: Retinopathy Screening [facility] Start: 1968 Pneumococcal Vaccine: Pediatrics (0 to 5 Years) and At-Risk Patients (6 to 64 Years) (1 - PCV) Pneumococcal Vaccine: Pediatrics (0 to 5 Years) and At-Risk Patients (6 to 64 Years) (1 - PCV) [facility] Start: 11-11-1963 MMR Vaccines (1 of 1 - Standard series) MMR Vaccines (1 of 1 - Standard series) [facility] Start: 05-12-1963 COVID-19 Vaccine (#1) COVID-19 Vaccine (#1) [facility] Start: 1962 Hemoglobin A1c measurement Diabetes: Hemoglobin A1C [facility] Start: 1962 HIV screening HIV Screening [facility] Start: 1962 Lipid panel Lipid Panel [facility] Start: 1962 Screening for malignant neoplasm of colon [facility] Start: 1962 Yearly Adult Physical Yearly Adult Physical [facility] Anion gap measurement [facility] Calculated LDL cholesterol level [facility] Cholesterol.total/Ch oles terol in HDL [Mass Ratio] in Serum or Plasma [facility] Glucose measurement estimated from glycated hemoglobin [facility] NM Heart Perfusion W stress and W radionuclide IV Nuclear Stress Test Cardiac Nuclear Medicine Routine Chest pain, unspecified type 12/16/2022 8:08 AM EST [facility] Service Area Work Phone: VLDL cholesterol measurement [facility] Payers Date Payer Category Payer Self-pay 2022 Unknown [id number] 2022 Private Health Insurance [facility] [id number] 2022-Present Raymond Fermin [id number] [place] [id number] 2022 Unknown [id number] 1962 Unknown [id number] 93 1962 Unknown [id number] 93 1962 Unknown [id number] 93 1962 Unknown [id number] [id number] 93 1962 Unknown [id number] [id number] 93 1962 Unknown [id number] [id number] 93 1962 Unknown [id number] [id number] 93 1962 Unknown [id number] [id number] 93 1962 Unknown [id number] [id number] 93 1962 Unknown [id number] [id number] 93 1959 Unknown [id number] 1959 Unknown [id number] Unknown [employer]/BS [id number] Unknown [id number] 31 Social History Date Type Detail Facility Start: 2022 End: 01-22-2023 Tobacco smoking status NHIS Never smoked tobacco (finding) [facility] Start: 1960 Sex Assigned At Male [facility] Tobacco smoking stat us NHIS Tobacco smoking consumption unknown [facility] Work Phone: Start: 12-16-2022 Gender identity Identifies as male gender (finding) [facility] Work Phone: Start: 12-16-2022 Sexual orientation Heterosexual (finding) [facility] Work Phone: Start: 12-06-2022 End: 04-23-2023 Exposure to SARS-CoV-2 (event) Not sure [facility] Start: 01-22-2023 Tobacco use and exposure Smokeless tobacco non-user [facility] Work Phone: Start: 01-22-2023 End: 04-23-2023 Alcohol intake Lifetime non-drinker (finding) [facility] Work Phone: Start: 01-22-2023 End: 04-23-2023 History of Social function [facility] Work Phone: Start: 01-22-2023 End: 04-23-2023 Tobacco use panel [facility] Work Phone: Clinical Notes 01-22-2023 to 04-23-2023 [...] sodium restriction. Annual follow-up Andra Ramirez MSN, POSTAL TRANSPORTATION CLERK-PODIATRY DOCTOR, PMHNP-[facility] Please excuse any errors in grammar or translation related to this dictation. Voice recognition software was utilized to prepare this document.. documented in this encounter [facility] Work Phone: 04-23-2023 Instructions SUGEY Tabares - [...] Morelos 9 months documented in this encounter [facility] Work Phone: 01-23-2023 Evaluation + Plan note Associated Problem(s): BMI 40.0-44.9, adult ([facility]) Recently started treatment with Ozempic Weight is down 10 pounds Reviewed the merits of healthy lifestyle choices on overall cardiovascular health. [facility] Work Phone: 01-23-2023 Miscellaneous Notes Associated Problem(s): [...] METS. EF 59%. documented in this encounter [facility] Work Phone: 01-23-2023 Evaluation + Plan note Associated Problem(s): Obstructive sleep apnea Remains compliant with CPAP [facility] Work Phone: 01-23-2023 Evaluation + Plan note Associated Problem(s): Diabetes mellitus type II, non insulin dependent ([facility]) On ARB No statin Unknown hemoglobin A1c [facility] Work Phone: 01-23-2023 Evaluation + Plan note Associated Problem(s): Hypertensive left ventricular hypertrophy, without heart failure November 2022 TTE LVEF greater than 70% LVH moderate MR trace [facility] Work Phone: 01-23-2023 Evaluation + Plan note Associated Problem(s): Essential hypertension He has been compliant with addition of doxazosin and valsartan since discharge. Reports PCP stopped hydrochlorothiazide. Remains elevated in office today [facility] Work Phone: 01-23-2023 Evaluation + Plan note Associated Problem(s): Cardiac and Vasculature November 2022 hospitalization for chest pressure, ruled out ACS. Inpatient echo EF greater than 70%, no wall motion abnormality. Subsequent December 2022 perfusion study no ischemia, no infarct. Completed 4 METS. EF 59%. [facility] Work Phone: 01-22-2023 History of Present illness Narrative Chief Complaint Doing fine Reason for Visit Patient presents to the office today for outpatient follow-up for hospital follow up. Patient was recently hospitalized at [facility]. The patient was seen in Cardiology consult with subsequent cardiovascular management by [facility]. Hospitalization records have been reviewed. Reason for Cardiology Consultation: Chest pressure, accelerated hypertension Consulting Applications Manager: Dr. Morelos Cardiovascular testing: Echocardiogram, outpatient perfusion study Changes to cardiovascular medical regimen at time of discharge: Added Cardura 8 mg, valsartan 320 mg, hydrochlorothiazide Discharge disposition: Home This is initial in clinic evaluation at [facility] Presents today ambulatory with steady gait. Accompanied [...] Diabetes mellitus type II, non insulin dependent ([facility]) On ARB No statin Unknown hemoglobin A1c [...] contact the office if new symptoms arise. FOREIGN COLLECTION CLERK after 2 months Andra Ramirez MSN, SUGEY, PMHNP-[facility] Please excuse any errors in grammar or translation related to this dictation. Voice recognition software was utilized to prepare this document. documented in this encounter [facility] Work Phone: 01-22-2023 Instructions SUGEY Tabares - [...] contact the office if new symptoms arise. FOREIGN COLLECTION CLERK after 2 months documented in this encounter [facility] Work Phone: Evaluation note Diagnosis Onset Date Chest pain acute Hypertensive urgency acute [facility] Work Phone: Evaluation note* Diagnosis Essential hypertension- Primary Unspecified essential hypertension Chest pain, unspecified type Obstructive sleep apnea Obstructive sleep apnea (adult) (pediatric) Diabetes mellitus type II, non insulin dependent ([facility]) Type II or unspecified type diabetes mellitus without mention of complication, not stated as uncontrolled Hypertensive left ventricular hypertrophy, without heart failure BMI 40.0-44.9, adult (CMS/HCC) documented in this encounter [facility] Work Phone: Evaluation note* Diagnosis BMI 40.0-44.9, adult (CMS/HCC)- Primary Essential hypertension Unspecified essential hypertension documented in this encounter [facility] Work Phone: Reason for referral (narrative)* Consultation (Routine) - Authorized Specialty Diagnoses / Procedures Referred By Callum long Referred To Contact Cardiology Diagnoses Essential hypertension Procedures Follow Up In Cardiology Andra Ramirez APRN-CNP [address] [facility] [address], [address] [address] Referral ID Status Reason Start Date Expiration Date V isits Requested Visits Authorized [id number] Authorized 01/22/2023 01/22/2024 1 1 [facility] Work Phone: Reason for referral (narrative)* Consultation (Routine) - Authorized Specialty Diagnoses / Procedures Referred By Callum long Referred To Contact Cardiology Diagnoses Essential hypertension Procedures Follow Up In Cardiology Andra Ramirez APRN-JOSE [address] [facility] [address], [address] [address] Mike Morelos DO [address] [facility] [address], [address] [address] Referral ID Status Reason Start Date Expiration Date V isits Requested Visits Authorized [id number] Authorized 04/23/2023 04/22/2024 1 1 [facility] Work Phone: Summary Purpose Family History No Family History Records FoundNo Family History Records FoundNo Family History Records FoundNo Family History Records Found Advance Directives Advance Directive Response Recorded Date/ Time Advance Directives No 2022 1:53am Hospital Course Note HNO ID: [id number] Author: Delonte pham (Jose) Hrnchar Service: Urology [...] section and content) DATE CREATED AUTHOR 03/30/2019 [facility] DATE CREATED AUTHOR AUTHOR'S ORGANIZ ATION 06/26/2019 [facility] DATE CREATED AUTHOR AUTHOR'S ORGANIZ ATION 12/03/2021 [facility] DATE CREATED AUTHOR AUTHOR'S ORGANIZ ATION 11/23/2022 [facility] Care Teams (unrecognized sec tion and content) Team Status: Active Member Role Status Dates Stalin Beach MD Primary Care Provider Active Team Status: Active Member Role Status Dates Stalin Beach MD Primary Care Provider Active Damien Hercules DO Emergency Provider Active Derick Gomes MD Admit Provider, Attending Provi jefferson Active Battery Charger Tester Relationship Specialty Start Date End Date Stalin Beach MD [address] [place] [address] [place] [address] PCP - General Family Medicine 11/13/22 Battery Charger Tester Relationship Specialty Start Date End Date Stalin Beach MD [facility] [place] [address] PCP - General Family Medicine 11/13/22 Battery Charger Tester Relationship Specialty Start Date End Date Stalin Beach MD [address] [place] [address] [place] [address] PCP - General Family Medicine 11/13/22 Battery Charger Tester Relationship Specialty Start Date End Date Stalin Beach MD [address] [facility] [place] [id number] PCP - General Family Medicine 11/13/22 Goals (unrecognized section and content) Goals may be documented in a n alternate section Reason for Visit (unrecogniz ed section and content) Specialty Diagnoses / Procedures Referred By Contac t Referred To Contact Radiology Diagnoses Chest pain, unspecified type Procedures Nuclear Stress Test CHG MYOCARDIAL SPECT MULTIPLE STUDIES CHG MYOCARDIAL SPECT SINGLE STUDY AT REST OR STRESS TX CV STRS TST XERS&/OR RX CONT ECG W/O I&R TX CV STRS TST XERS&/OR RX CONT ECG I&R ONLY TX CV STRS TST XERS&/OR RX CONT ECG TRCG ONLY TX CV STRS TST XERS&/OR RX CONT ECG W/SI&R Mike Morelos, DO [address], [address] [place] [id number] Referral ID Status Reason Start Date Expiration Date V isits Requested Visits Authorized [id number] Authorized 11/13/2022 05/12/2023 5 5 Reason Comments Shortness of Breath Chest pressure Specialty Diagnoses / Procedures Referred By Contac t Referred To Contact Cardiology Diagnoses Chest pain, unspecified type Procedures Follow Up In Cardiology Mike Morelos, DO [address], [address] [place] [address] Mike Morelos, DO [address] [place] [address] Referral ID Status Reason Start Date Expiration Date V isits Requested Visits Authorized [id number] Authorized 01/06/2023 01/06/2024 1 1 Reason Comments Follow-up 1 month Specialty Diagnoses / Procedures Referred By Contac t Referred To Contact Cardiology Diagnoses Essential hypertension Procedures Follow Up In Cardiology Andra Ramirez, POSTAL TRANSPORTATION CLERK-PODIATRY DOCTOR [address] [place] [address] Referral ID Status Reason Start Date Expiration Date V isits Requested Visits Authorized [id number] Authorized 03/25/2023 03/24/2024 1 1 FOR RECORDS [...] BE BASED ON THE PRIMARY CLINICAL RECORDS. [employer] provides no warranty or guarantee of the accuracy or completeness of information in this document.
[2023-04-29 15:54] LABS: Alanine Aminotransferase 47 U/L (16-63); Albumin Globulin Ratio 1.1; Albumin Level 3.9 g/dL (3.4-5.0); Alkaline Phosphatase 60 U/L (46-116); Aspartate Amino Transferase 28 U/L (15-37); BUN Creatinine Ratio 11.8; Bilirubin Total 0.6 mg/dL (0.2-1.0); Calcium 9.4 mg/dL (8.5-10.1); Carbon Dioxide 26.9 mmol/L (21.0-32.0); Chloride 106 mmol/L (98-107); Estimated GFR (African America 53 (>=60); Estimated GFR (Non-African Ame 44 (>=60); Globulin 3.5 g/dL; Glucose 83 mg/dL (74-106); Potassium 4.9 mmol/L (3.5-5.1); Sodium 142 mmol/L (136-145); Total Protein 7.4 g/dL (6.4-8.2)
== END 2023-04-29 15:13 | disposition home or self-care (01) ==
LOC: LAB 15:12
PROVIDERS: PCP Family Medicine; Visit Provider Family Medicine
DX: R97.20 Elevated prostate specific antigen [PSA] (principal)
CPT/HCPCS: 36415; 80053

== ENCOUNTER 2023-06-14 12:50 | Outpatient (REF) | payer OTHER, SELFPAY ==
--- OUTSIDE RECORDS SUMMARY | 2023-06-14 12:55 | XMS_ITS | CCD ---
Author Organization [facility] Care Team Providers Care Instructor Of Spanish Name Role Phone YONG, DR VALDIVIA Consulting [...] Unavailable MD Stalin Beach Primary Care Provider [phone] DO Damien Hercules Emergency Provider MD Derick Gomes Admit Provider [phone] MD Derick Gomes Attending Provider [phone] Claudia Parra Consulting Unavailable Stalin Beach Primary [...] source) Aminolevulinic Acid Drug Allergy 0 [facility] Repository (2 sources) Nitroglycerin Drug Allergy 9 Other [facility] Medications Current Medications Medication Drug Class(es) [...] Eric Villa 12/17/2022 5:57 PM Dictation workstation: [id number] MMODAL Interpreted By: Eric Villa and Giannuzzi Michael STUDY: MYOCARDIAL PERFUSION STRESS TEST WITH EXERCISE Performing facility: [facility], [address] [place] [address], [address], [address] Provider: Chaim Morelos DO, FACC PCP: Dr. Beach Supervising provider: Andra Ramirez RN, DATA MANAGEMENT ANALYST INDICATION: Chest Pain; HISTORY: Gender: M; Age: 62 y/o ; Height: cm; Weight: kg. Diabetes; Family HX CAD; HTN; SOB; Denies smoking. COMPARISON: No comparison. ACCESSION NUMBER(S): [id number] ORDERING CLINICIAN: MIKE MORELOS TECHNIQUE: TWO DAY [...] PERFUSION STRESS TEST WITH EXERCISE Performing facility: [facility], [address] [place] [address], [address], [place], [place] [address] Provider: Chaim Morelos DO, FACC PCP: Dr. Beach Supervising provider: Andra Ramirez RN, DATA MANAGEMENT ANALYST INDICATION: Chest Pain; HISTORY: Gender: M; Age: 62 y/o ; Height: cm; Weight: kg. Diabetes; Family HX CAD; HTN; SOB; Denies smoking. COMPARISON: No comparison. ACCESSION NUMBER(S): [id number] ORDERING CLINICIAN: MIKE MORELOS TECHNIQUE: TWO DAY [...] Eric Villa 12/17/2022 5:57 PM Dictation workstation: [id number] [facility] Work Phone: NM Heart Perfusion W stress and W radionuclide IVOrdered By: Eric Villa on 12-17-2022 [facility] Work Phone: NM Heart Perfusion W stress and W radionuclide Karen 12-16-2022 Radiology Study observation (narrative) [facility] Work Phone: Glucose Poct Glucometerson 1 Glucose [Mass/Vol] 132 mg/dL Normal [facility] Comment on above: Result Comment: [facility] Glucose Reference Range is dependent on time and content of last meal. Glucose of more than 200 mg/dL in a nonstressed, ambulatory subject supports the diagnosis of Diabetes Mellitus. PERFORMED BY: [place] [address] PATHOLOGIST DISK OPERATOR ROSCOE CASTRO M.D. Performed By: #### C BC, BMP, BNP, HS TROP, CK #### [place] [id number] [facility] Glucose [Mass/Vol] 141 mg/dL Normal [facility] Comment on above: Result Comment: [place] Glucose Reference Range is dependent on time and content of last meal. Glucose of more than 200 mg/dL in a nonstressed, ambulatory subject supports the diagnosis of Diabetes Mellitus. PERFORMED BY: [place] [address] PATHOLOGIST DISK OPERATOR ROSCOE CASTRO M.D. Performed By: #### C BC, BMP, BNP, HS TROP, CK #### [place] [id number] [facility] ECH echo transthoracicon [facility] echo transthoracic [facility] Main [place] [address] [place] [address] Echocardiogram Signed Patient: Clarence Flores MR#: [id number] : 1960 Acct:[id number] Age/Sex: 62 / M ADM Date: 11/10/22 Loc: 4N Room: 5F2581-3 Type: ADM INOo Attending Dr: Moises Long [facility] Ordering Provider: Maura Venegas MD Date of [...] Signed By: Lalita Capellan MD 11/12/22 1033 [facility] Glucose Poct Glucometerson 1 Glucose [Mass/Vol] 156 mg/dL [facility] Comment on above: Result Comment: [facility] Glucose Reference Range is dependent on time and content of last meal. Glucose of more than 200 mg/dL in a nonstressed, ambulatory subject supports the diagnosis of Diabetes Mellitus. PERFORMED BY: [place] [address] PATHOLOGIST DISK OPERATOR ROSCOE CASTRO M.D. Performed By: #### G LULS #### Point of Care testing , Glucose [Mass/Vol] 187 mg/dL Normal [facility] Comment on above: Result Comment: [facility] Glucose Reference Range is dependent on time and content of last meal. Glucose of more than 200 mg/dL in a nonstressed, ambulatory subject supports the diagnosis of Diabetes Mellitus. PERFORMED BY: [place] [address] PATHOLOGIST DISK OPERATOR ROSCOE CASTRO M.D. Performed By: #### C BC, BMP, BNP, HS TROP, CK #### [address] Glucose [Mass/Vol] 162 mg/dL Normal [facility] Comment on above: Result Comment: [facility] Glucose Reference Range is dependent on time and content of last meal. Glucose of more than 200 mg/dL in a nonstressed, ambulatory subject supports the diagnosis of Diabetes Mellitus. PERFORMED BY: [place] [address] PATHOLOGIST DISK OPERATOR ROSCOE CASTRO M.D. Performed By: #### C BC, BMP, BNP, HS TROP, CK #### [address] A1C with Estimated Average G alenan 2022 Glucose [Mass/Vol] 157 mg/dL Normal [facility] Comment on above: Order Comment: Comme nt add Result Comment: PERF ORMED BY: [place] [address] PATHOLOGIST DISK OPERATOR ROSCOE CASTRO M.D. Performed By: #### C BC, BMP, BNP, HS TROP, CK #### [address] HbA1c (Bld) [Mass fraction] 7.1 % High 4.3-5.6 [facility] Comment on above: Order Comment: Comme nt add Result Comment: Incr eased risk for diabetes: 5.7 - 6.4 diabetes: >6.4 glycemic control for adults with diabetes: <7.0 Performed By: #### C BC, BMP, BNP, HS TROP, CK #### [address] Activated partial thrombopla stin time (aPTT) in platelet poor plasma by coagulation aOrdered By: Damien Hercules on 2022 aPTT Coag (PPP) [Time] 29.0 s 25.1-36.5 [facility] Comment on above: A hematocrit value g reater than 55% may lead to inaccurate results in coagulation testing. Patients having hematocrit values >55% require a special collection tube for coagulation studies. Please contact the laboratory at [phone] for redraw instructions. B-Type Natriuretic Peptideon 2022 Natriuretic peptide B (Bld) [Mass/Vol] 101.0 pg/mL High 5-100 [facility] Comment on above: Result Comment: PERF ORMED BY: [place] [address] PATHOLOGIST DISK OPERATOR ROSCOE CASTRO M.D. Performed By: #### C BC, BMP, BNP, HS TROP, CK #### [facility] [address] Basic Metabolic Panelon 10-0 Anion gap [Moles/Vol] 11.3 mmol/L Normal 6.0-15.0 [facility] Comment on above: Performed By: #### B MP #### [facility] [address] Calcium [Mass/Vol] 9.2 mg/dL Normal 8.6-10.3 [facility] Comment on above: Performed By: #### B MP #### [facility] [address] [place] [address] [place] Chloride [Moles/Vol] 106 mmol/L Normal 98-107 [facility] Comment on above: Performed By: #### B MP #### [facility] [address] CO2 [Moles/Vol] 25.2 mmol/L Normal 21.0-31.0 [facility] Comment on above: Performed By: #### B MP #### [facility] [address] [place] [address] Creatinine [Mass/Vol] 1.22 mg/dL Normal 0.70-1.30 [facility] Comment on above: Performed By: #### B MP #### [facility] [address] [place] [address] [place] Creatinine Clr Calc Pharmacy 82.15 Normal [facility] Comment on above: Result Comment: PERF ORMED BY: [facility] [address] [place] [address] PATHOLOGIST DISK OPERATOR ROSCOE CASTRO M.D. Performed By: #### B MP #### [facility] [address] [place] [address] [place] GFR/1.73 sq M.predicted MDRD (S/P/Bld) [Vol rate/Area] mL/min/{1.73_m2} Normal [facility] Comment on above: Performed By: #### B MP #### [facility] [address] [place] [address] [place] Glucose [Mass/Vol] 298 mg/dL Significant change up 70-100 [facility] Comment on above: Result Comment: [place] Glucose Reference Range is dependent on time and content of last meal. Glucose of more than 200 mg/dL in a nonstressed, ambulatory subject supports the diagnosis of Diabetes Mellitus. ADA recommended reference range Performed By: #### B MP #### [facility] [address] [place] [address] [place] Potassium [Moles/Vol] 3.5 mmol/L Normal 3.5-5.1 [facility] Comment on above: Performed By: #### B MP #### [facility] [address] [place] [address] [place] Sodium [Moles/Vol] 139 mmol/L Normal 136-145 [facility] Comment on above: Performed By: #### B MP #### [facility] [address] [place] [address] [place] Urea nitrogen [Mass/Vol] 13 mg/dL Normal 7-25 [facility] Comment on above: Performed By: #### B MP #### [facility] [address] [place] [address] [place] Anion gap [Moles/Vol] 10.4 mmol/L Normal 6.0-15.0 [facility] Comment on above: Performed By: #### C BC, BMP, BNP, HS TROP, CK #### [facility] [address] [place] [address] [place] Calcium [Mass/Vol] 9.0 mg/dL Normal 8.6-10.3 [facility] Comment on above: Performed By: #### C BC, BMP, BNP, HS TROP, CK #### [facility] [address] [place] [address] [place] Chloride [Moles/Vol] 106 mmol/L Normal 98-107 [facility] Comment on above: Performed By: #### C BC, BMP, BNP, HS TROP, CK #### [facility] [address] CO2 [Moles/Vol] 26.2 mmol/L Normal 21.0-31.0 [facility] Comment on above: Performed By: #### C BC, BMP, BNP, HS TROP, CK #### [facility] [address] Creatinine [Mass/Vol] 1.39 mg/dL High 0.70-1.30 [facility] Comment on above: Performed By: #### C BC, BMP, BNP, HS TROP, CK #### [facility] [address] Creatinine Clr Calc Pharmacy 72.10 [facility] Comment on above: Result Comment: PERF ORMED BY: [place] [address] PATHOLOGIST DISK OPERATOR ROSCOE CASTRO M.D. Performed By: #### C BC, BMP, BNP, HS TROP, CK #### [facility] [address] GFR/1.73 sq M.predicted MDRD (S/P/Bld) [Vol rate/Area] 58.037 mL/min/{1.73_m2} [facility] Comment on above: Performed By: #### C BC, BMP, BNP, HS TROP, CK #### [facility] [address] Glucose [Mass/Vol] 170 mg/dL High 70-100 [facility] Comment on above: Result Comment: [place] Glucose Reference Range is dependent on time and content of last meal. Glucose of more than 200 mg/dL in a nonstressed, ambulatory subject supports the diagnosis of Diabetes Mellitus. ADA recommended reference range Performed By: #### C BC, BMP, BNP, HS TROP, CK #### [facility] [address] Potassium [Moles/Vol] 3.6 mmol/L Normal 3.5-5.1 [facility] Comment on above: Performed By: #### C BC, BMP, BNP, HS TROP, CK #### [facility] [address] Sodium [Moles/Vol] 139 mmol/L Normal 136-145 [facility] Comment on above: Performed By: #### C BC, BMP, BNP, HS TROP, CK #### [facility] [address] Urea nitrogen [Mass/Vol] 14 mg/dL Normal 7-25 [facility] Comment on above: Performed By: #### C BC, BMP, BNP, HS TROP, CK #### [facility] [address] Basophils Auto (Bld) [#/Vol] Ordered By: Damien Hercules on 2022 Basophils (Bld) [#/Vol] 0.1 10*3/uL 0.0-0.2 [facility] Basophils/100 WBC Auto (Bld) Ordered By: Damien Hercules on 2022 Basophils/100 WBC (Bld) 1.0 % . [facility] Calcium [Mass/volume] in Ser um or PlasmaOrdered By: Damien Hercules on 2022 Calcium [Mass/Vol] 9.0 mg/dL 8.6-10.3 [facility] Carbon dioxide, total [Moles /volume] in Serum or PlasmaOrdered By: Damien Hercules on 2022 CO2 [Moles/Vol] 26.2 mmol/L 21.0-31.0 [facility] Chloride [Moles/volume] in S luke or PlasmaOrdered By: Damien Hercules on 2022 Chloride [Moles/Vol] 106 mmol/L 98-107 [facility] Coagulation Profileon 2022 aPTT Coag (Bld) [Time] 29.0 s Normal 25.1-36.5 [facility] Comment on above: Order Comment: REDRA Mcguire Result Comment: A he matocrit value greater than 55% may lead to inaccurate results in coagulation testing. Patients having hematocrit values >55% require a special collection tube for coagulation studies. Please contact the laboratory at [phone] for redraw instructions. PERFORMED BY: [place] [id number] PATHOLOGIST DISK OPERATOR ROSCOE CASTRO M.D. Performed By: #### C BC, BMP, BNP, HS TROP, CK #### [place] [id number] [facility] INR Coag (PPP) [Relative time] 1.0 {INR} [...] BC, BMP, BNP, HS TROP, CK #### [address] [address] [facility] PT Coag (PPP) [Time] 12.4 s Normal 9.0-12.9 [facility] Comment on above: Order Comment: REDRA W Result Comment: A he matocrit value greater than 55% may lead to inaccurate results in coagulation testing. Patients having hematocrit values >55% require a special collection tube for coagulation studies. Please contact the laboratory at [phone] for redraw instructions. Performed By: #### C BC, BMP, BNP, HS TROP, CK #### [address] [address] [facility] Complete Blood Count Auto Di ffon 2022 Basophils (Bld) [#/Vol] 0.1 10*3/uL Normal 0.0-0.2 [facility] Comment on above: Result Comment: PERF ORMED BY: [place] [id number] PATHOLOGIST DISK OPERATOR JIANLAN SUN M.D. Performed By: #### C BC, BMP, BNP, HS TROP, CK #### [address] Basophils/100 WBC (Bld) 1.0 % Normal . [facility] Comment on above: Performed By: #### C BC, BMP, BNP, HS TROP, CK #### [address] Eosinophils (Bld) [#/Vol] 0.3 10*3/uL Normal 0.0-0.45 [facility] Comment on above: Performed By: #### C BC, BMP, BNP, HS TROP, CK #### [address] Eosinophils/100 WBC (Bld) 2.9 % Normal . [facility] Comment on above: Performed By: #### C BC, BMP, BNP, HS TROP, CK #### [address] Erythrocyte distribution width (RBC) [Ratio] 14.8 % Normal 12.0-14.8 [facility] Comment on above: Performed By: #### C BC, BMP, BNP, HS TROP, CK #### [address] Hematocrit (Bld) [Volume fraction] 43.8 % Normal 38.8-50.0 [facility] Comment on above: Performed By: #### C BC, BMP, BNP, HS TROP, CK #### [address] Hemoglobin (Bld) [Mass/Vol] 15.0 g/dL Normal 13.0-17.0 [facility] Comment on above: Performed By: #### C BC, BMP, BNP, HS TROP, CK #### [address] Lymphocytes (Bld) [#/Vol] 1.8 10*3/uL Normal 1.00-4.8 [facility] Comment on above: Performed By: #### C BC, BMP, BNP, HS TROP, CK #### [address] Lymphocytes/100 WBC (Bld) 19.7 % Normal . [facility] Comment on above: Performed By: #### C BC, BMP, BNP, HS TROP, CK #### [address] MCH (RBC) [Entitic mass] 28.8 pg Normal 27.5-35.2 [facility] Comment on above: Performed By: #### C BC, BMP, BNP, HS TROP, CK #### [address] MCV (RBC) [Entitic vol] 84.1 fL Normal 83.5-101 [facility] Comment on above: Performed By: #### C BC, BMP, BNP, HS TROP, CK #### [address] Mean Corpuscular HGB Conc 34.3 g/dL Normal 32.5-35.6 [facility] Comment on above: Performed By: #### C BC, BMP, BNP, HS TROP, CK #### [address] Monocytes (Bld) [#/Vol] 0.8 10*3/uL Normal 0.0-0.8 [facility] Comment on above: Performed By: #### C BC, BMP, BNP, HS TROP, CK #### [place] [address] [place] Monocytes/100 WBC (Bld) 20.13 % High 0.00-20.00 [facility] Comment on above: Result Comment: For adults in ED, MDW > 20.0 may be associated with a higher risk of sepsis during the first 12 hrs of hospital admission Performed By: #### C BC, BMP, BNP, HS TROP, CK #### [address] Monocytes/100 WBC (Bld) 9.2 % Normal . [facility] Comment on above: Performed By: #### C BC, BMP, BNP, HS TROP, CK #### [facility] [address] [place] [address] [place] Neutrophils (Bld) [#/Vol] 6.2 10*3/uL Normal 1.8-7.7 [facility] Comment on above: Performed By: #### C BC, BMP, BNP, HS TROP, CK #### [place] [address] [place] Neutrophils/100 WBC (Bld) 67.2 % Normal . [facility] Comment on above: Performed By: #### C BC, BMP, BNP, HS TROP, CK #### [address] NRBC% 0.1 /100{WBC} Normal 0-0.5 [facility] Comment on above: Performed By: #### C BC, BMP, BNP, HS TROP, CK #### [address] Platelet mean volume (Bld) [Entitic vol] 7.7 fL Normal 6.6-10.1 [facility] Comment on above: Performed By: #### C BC, BMP, BNP, HS TROP, CK #### [place] [address] [place] Platelets (Bld) [#/Vol] 194 10*3/uL Normal 150-450 [facility] Comment on above: Performed By: #### C BC, BMP, BNP, HS TROP, CK #### [place] [address] [place] RBC (Bld) [#/Vol] 5.21 10*6/uL Normal 3.90-5.60 [facility] Comment on above: Performed By: #### C BC, BMP, BNP, HS TROP, CK #### [place] [address] [place] WBC (Bld) [#/Vol] 9.2 10*3/uL Normal 4.1-10.5 [facility] Comment on above: Performed By: #### C BC, BMP, BNP, HS TROP, CK #### [address] [place] [address] [place] Creatine Kinaseon 2022 CK [Catalytic activity/Vol] 111 U/L Normal [facility] Comment on above: Performed By: #### C BC, BMP, BNP, HS TROP, CK #### [place] [id number] [facility] Creatine kinase [Enzymatic a ctivity/volume] in Serum or PlasmaOrdered By: Damien Hercules on 2022 CK [Catalytic activity/Vol] 111 U/L [facility] Creatinine [Mass/volume] in Serum or PlasmaOrdered By: Damien Hercules on 2022 Creatinine [Mass/Vol] 1.39 mg/dL 0.70-1.30 [facility] ECG 12 lead ECGon 2022 ECG 12 lead ECG [facility] Main [place] [address] [place] [address] Electrocardiograph Report Signed Patient: Clarence Flores MR#: [id number] : 1960 Acct:[id number] Age/Sex: 61 / M ADM Date: 11/10/22 Loc: Room: [address] [place] [address] Type: ADM INOo Attending Dr: Derick Gomes [...] MUS Signed By Damien Hercules DO 0[address] [facility] Eosinophils Auto (Bld) [#/Vo l]Ordered By: [...] Glucometerson 1 Glucose [Mass/Vol] 193 mg/dL Normal [facility] Comment on above: Result Comment: [facility] Glucose Reference Range is dependent on time and content of last meal. Glucose of more than 200 mg/dL in a nonstressed, ambulatory subject supports the diagnosis of Diabetes Mellitus. PERFORMED BY: [place] [address] PATHOLOGIST DISK OPERATOR ROSCOE CASTRO M.D. Performed By: #### C BC, BMP, BNP, HS TROP, CK #### [facility] [address] [place] [address] [place] Glucose [Mass/Vol] 219 mg/dL Normal [facility] Comment on above: Result Comment: [facility] Glucose Reference Range is dependent on time and content of last meal. Glucose of more than 200 mg/dL in a nonstressed, ambulatory subject supports the diagnosis of Diabetes Mellitus. PERFORMED BY: [place] [address] PATHOLOGIST DISK OPERATOR ROSCOE CASTRO M.D. Performed By: #### C BC, BMP, BNP, HS TROP, CK #### [facility] [address] [place] [address] [place] Glucose [Mass/Vol] 388 mg/dL Normal [facility] Comment on above: Result Comment: [place] Glucose Reference Range is dependent on time and content of last meal. Glucose of more than 200 mg/dL in a nonstressed, ambulatory subject supports the diagnosis of Diabetes Mellitus. PERFORMED BY: [address] [place] [address] PATHOLOGIST DISK OPERATOR ROSCOE CASTRO M.D. Performed By: #### C BC, BMP, BNP, HS TROP, CK #### [address] Commemt1 Glu2: Cleaned Meter Normal [facility] Comment on above: Result Comment: PERF ORMED BY: [facility] [address] [place] [address] PATHOLOGIST DISK OPERATOR ROSCOE CASTRO M.D. Performed By: #### G LULS #### Point of Care testing , Glucose [Mass/Vol] 250 mg/dL Normal [facility] Comment on above: Result Comment: [place] om Glucose Reference Range is dependent on time and content of last meal. Glucose of more than 200 mg/dL in a nonstressed, ambulatory subject supports the diagnosis of Diabetes Mellitus. Performed By: #### G LULS #### Point of Care testing , Glucose [Mass/volume] in Ser um or PlasmaOrdered By: Damien Hercules on 2022 Glucose [Mass/Vol] 170 mg/dL 70-100 [facility] Comment on above: ADA recommended refe [...] 2022 Cholesterol [Mass/Vol] 143 mg/dL Normal 140-200 [facility] Comment on above: Order Comment: Comme nt add Result Comment: Chol less than 200 mg/dl low risk Chol 201-239 mg/dl borderline risk Chol 240 mg/dl and greater high risk Performed By: #### C BC, BMP, BNP, HS TROP, CK #### [facility] [address] Cholesterol in HDL [Mass/Vol] 29 mg/dL Normal 23-92 [facility] Comment on above: Order Comment: Comme nt add Result Comment: HDL CHOL ATP-III CLASSIFICATION Cardiovascular Risk HDL > or equal to 60 mg/dL LOW HDL < 40 mg/dL HIGH Performed By: #### C BC, BMP, BNP, HS TROP, CK #### [facility] [address] Cholesterol.total/Chol esterol in HDL [Mass ratio] 4.9 {ratio} Normal <5.0 [facility] Comment on above: Order Comment: Comme nt add Result Comment: PERF ORMED BY: [place] [address] PATHOLOGIST DISK OPERATOR ROSCOE CASTRO M.D. Performed By: #### C BC, BMP, BNP, HS TROP, CK #### [facility] [address] LDL Cholesterol,Calculated 87 mg/dL Normal 0-100 [...] BC, BMP, BNP, HS TROP, CK #### [facility] [address] Triglyceride w/Reflex 133 mg/dL Normal 0-149 [facility] Comment on above: Order Comment: Comme nt add Result Comment: TRIG ATP III CLASSIFICATION TRIG less than 150 mg/dL Normal TRIG 150-199 mg/dL Borderline high TRIG 200-500 mg/dL High TRIG greater than 500 mg/dL Very high Standard traceable to the Center for Disease Conrtrol and Prevention (CDC) test method. Performed By: #### C BC, BMP, BNP, HS TROP, CK #### [facility] [address] VLDL CHOLESTEROL 26 mg/dL Normal [facility] Comment on above: Order Comment: Comme nt add Performed By: #### C BC, BMP, BNP, HS TROP, CK #### [facility] [address] Lymphocytes Auto (Bld) [#/Vo l]Ordered By: [...] 2022 MCHC (RBC) [Mass/Vol] 34.3 g/dL 32.5-35.6 [facility] MCV Auto (RBC) [Entitic vol] Ordered By: [...] on 2022 Potassium [Moles/Vol] 3.6 mmol/L 3.5-5.1 [facility] Prothrombin time (PT)Ordered By: Damien Hercules on 2022 PT Coag (PPP) [Time] 12.4 s 9.0-12.9 [facility] Comment on above: A hematocrit value g reater than 55% may lead to inaccurate results in coagulation testing. Patients having hematocrit values >55% require a special collection tube for coagulation studies. Please contact the laboratory at [phone] for redraw instructions. RBC Auto (Bld) [#/Vol]Ordere d By: Damien Hercules on 2022 RBC (Bld) [#/Vol] 5.21 10*6/uL 3.90-5.60 [facility] Serum or plasma anion gap de terminationOrdered By: Damien Hercules on 2022 Anion gap [Moles/Vol] 10.4 mmol/L 6.0-15.0 [facility] Sodium [Moles/volume] in Ser um or PlasmaOrdered By: Damien Hercules on 2022 Sodium [Moles/Vol] 139 mmol/L 136-145 [facility] Troponin I High Sensitivityo n 2022 Troponin I High Sensitivity 10.1 pg/mL Normal 0.0-20.0 [facility] Comment on above: Result Comment: PERF ORMED BY: [facility] [address] [place] [address] PATHOLOGIST DISK OPERATOR ROSCOE CASTRO M.D. Performed By: #### H S TROP #### [facility] [address] Troponin I High Sensitivity 13.0 pg/mL Normal 0.0-20.0 [facility] Comment on above: Result Comment: PERF ORMED BY: [place] [address] PATHOLOGIST DISK OPERATOR ROSCOE CASTRO M.D. Performed By: #### H S TROP #### [facility] [address] [place] [address] Troponin I High Sensitivity 15.8 pg/mL Normal 0.0-20.0 [facility] Comment on above: Result Comment: PERF ORMED BY: [place] [address] PATHOLOGIST DISK OPERATOR ROSCOE CASTRO M.D. Performed By: #### C BC, BMP, BNP, HS TROP, CK #### [facility] [address] [place] [id number] Troponin I.cardiac [Mass/vol ume] in Serum or [...] 2022 WBC (Bld) [#/Vol] 9.2 10*3/uL 4.1-10.5 [facility] XR chest 2V*on 2022 XR chest 2V* [facility] Main [place] [address] [place] [id number] XRay Report Signed Patient: Clarence Flores MR#: [id number] : 1960 Acct:[id number] Age/Sex: 62 / M ADM Date: 11/10/22 Loc: Room: [address] [place] [address] Type: ADM INOo Attending Dr: Maura Venegas [...] Oreilly Jr., D.OJessica2022 10:13 AM Dictation Location: [facility]--15 Transcribed By: [facility] 11/10/22 1013 Dictated By: Ruel Oreilly Jr, DO 11/10/22 1012 Signed By: 11/10/22 1013 [facility] CBC AUTO DIFFon 11-24-2021 BASO # 0.0 103/ul Normal 0.0-0.1 [facility] Comment on above: Performed By: #### C BC #### [facility] [address] [place] [address] Dr. Sunny Ortez Basophils/100 WBC (Bld) 0.5 % Normal 0.2-2.0 [facility] Comment on above: Performed By: #### C BC #### [facility] [address] [place] [address] Dr. Sunny Ortez EO # 0.4 103/ul Normal 0.0-0.7 [facility] Comment on above: Performed By: #### C BC #### [facility] [address] [place] [address] Dr. Sunny Ortez Eosinophils/100 WBC (Bld) 4.6 % Normal 0.9-7.0 [facility] Comment on above: Performed By: #### C BC #### [facility] [address] [place] [address] Dr. Sunny Ortez Erythrocyte distribution width (RBC) [Ratio] 14.2 % Normal 11.0-15.0 [facility] Comment on above: Performed By: #### C BC #### [facility] [address] [place] [address] Dr. Sunny Ortez Hematocrit (Bld) [Volume fraction] 45.8 % Normal 42.0-54.0 [facility] Comment on above: Performed By: #### C BC #### [facility] [address] [place] [address] Dr. Sunny Ortez Hemoglobin (Bld) [Mass/Vol] 15.1 g/dL Normal 14.0-18.0 [facility] Comment on above: Performed By: #### C BC #### [facility] [address] [place] [address] Dr. Sunny Ortez IG # 0.02 10e3/ul Normal 0.00-0.03 [facility] Comment on above: Performed By: #### C BC #### [facility] [address] [place] [address] Dr. Sunny Ortez IG % 0.2 % Normal 0.0-0.5 [facility] Comment on above: Performed By: #### C BC #### [facility] [address] [place] [address] Dr. Sunny Ortez LYMPH # 1.7 103/ul Normal 1.2-3.8 [facility] Comment on above: Performed By: #### C BC #### [facility] [address] [place] [address] Dr. Sunny Ortez Lymphocytes/100 WBC (Bld) 20.2 % Critically low 20.5-60.0 [facility] Comment on above: Performed By: #### C BC #### [facility] [address] [place] [address] Dr. Sunny Ortez MANUAL DIFF REQ NO Normal [facility] Comment on above: Performed By: #### C BC #### [facility] [address] [place] [address] Dr. Sunny Ortez MCH (RBC) [Entitic mass] 27.7 pg Normal 25.9-34.0 [facility] Comment on above: Performed By: #### C BC #### [facility] [address] [place] [address] Dr. Sunny Ortez MCHC (RBC) [Mass/Vol] 33.0 g/dL Normal 29.9-35.2 [facility] Comment on above: Performed By: #### C BC #### [facility] [address] [place] [address] Dr. Sunny Ortez MCV (RBC) [Entitic vol] 83.9 fL Normal 80.0-94.0 [facility] Comment on above: Performed By: #### C BC #### [facility] [address] [address] [address] Sunny Ortez MONO # 0.7 103/ul Normal 0.3-0.8 [facility] Comment on above: Performed By: #### C BC #### [facility] [address] [place] [address] Dr. Sunny Ortez Monocytes/100 WBC (Bld) 8.0 % Normal 1.7-12.0 [facility] Comment on above: Performed By: #### C BC #### [facility] [address] [place] [address] Dr. Sunny Ortez NEUT # 5.6 103/ul Normal 1.4-6.5 [facility] Comment on above: Performed By: #### C BC #### [facility] [address] [place] [address] Dr. Sunny Ortez Neutrophils/100 WBC (Bld) 66.5 % Normal 43.0-75.0 [facility] Comment on above: Performed By: #### C BC #### [facility] [address] [place] [address] Dr. Sunny Ortez Platelet mean volume (Bld) [Entitic vol] 9.1 fL Critically low 9.5-13.5 [facility] Comment on above: Performed By: #### C BC #### [facility] [address] [place] [address] Dr. Sunny Ortez PLT 215 103/ul Normal 150-450 [facility] Comment on above: Performed By: #### C BC #### [facility] [address] [place] [address] Dr. Sunny Ortez RBC 5.46 106/ul Normal 4.70-6.10 [facility] Comment on above: Performed By: #### C BC #### [facility] [address] [place] [address] Dr. Sunny Ortez WBC 8.4 103/ul Normal 4.0-11.0 [facility] Comment on above: Performed By: #### C BC #### [facility] [address] [place] [address] Dr. Sunny Ortez GLYCOHEMOGLOBIN A1Con 2021 ADA RECOMMENDATION SEE BELOW Normal [facility] Comment on above: Result Comment: ADA RECOMMENDED LIMIT 4.0 - 6.0 ADA THERAPEUTIC TARGET < 7.0 ACTION SUGGESTED > 7.0 Performed By: #### A 1C #### [facility] [address] [place] [address] Dr. Sunny Ortez Glucose [Mass/Vol] 117 mg/dL Normal [facility] Comment on above: Performed By: #### A 1C #### [facility] [address] [place] [address] Dr. Sunny Ortez HbA1c (Bld) [Mass fraction] 5.7 % Normal 4.5-6.2 [facility] Comment on above: Performed By: #### A 1C #### [facility] [address] [place] [address] Dr. Sunny Ortez PROF 14(COMP METB)on 022 Albumin [Mass/Vol] 3.7 g/dL Normal 3.4-5.0 [facility] Comment on above: Performed By: #### C MP #### [facility] [address] [place] [address] Dr. Sunny Ortez Albumin/Globulin [Mass ratio] 1.0 {ratio} Normal [facility] Comment on above: Performed By: #### C MP #### [facility] [address] [place] [address] Dr. Sunny Ortez ALP [Catalytic activity/Vol] 61 U/L Normal 46-116 [facility] Comment on above: Performed By: #### C MP #### [facility] [address] [place] [address] Dr. Sunny Ortez ALT [Catalytic activity/Vol] 42 U/L Normal 16-63 [facility] Comment on above: Performed By: #### C MP #### [facility] [address] [place] [address] Dr. Sunny Ortez Anion gap [Moles/Vol] 8.1 mmol/L Normal [facility] Comment on above: Performed By: #### C MP #### [facility] [address] [place] [address] Dr. Sunny Ortez AST [Catalytic activity/Vol] 28 U/L Normal 15-37 [facility] Comment on above: Performed By: #### C MP #### [facility] [address] [place] [address] Dr. Sunny Ortez Bilirubin [Mass/Vol] 0.5 mg/dL Normal 0.2-1.0 [facility] Comment on above: Performed By: #### C MP #### [facility] [address] [place] [address] Dr. Sunny Ortez Calcium [Mass/Vol] 8.7 mg/dL Normal 8.5-10.1 [facility] Comment on above: Performed By: #### C MP #### [facility] [address] [place] [address] Dr. Sunny Ortez Chloride [Moles/Vol] 107 mmol/L Normal 98-107 [facility] Comment on above: Performed By: #### C MP #### [facility] [address] [place] [address] Dr. Sunny Ortez CO2 [Moles/Vol] 30.0 mmol/L Normal 21.0-32.0 [facility] Comment on above: Performed By: #### C MP #### [facility] [address] [place] [address] Dr. Sunny Ortez Creatinine [Mass/Vol] 1.29 mg/dL Normal 0.70-1.30 [facility] Comment on above: Performed By: #### C MP #### [facility] [address] [place] [address] Dr. Sunny Ortez EGFR-AF HAITIAN >60 Normal >=60 [facility] Comment on above: Performed By: #### C MP #### [facility] [address] [address] [address] Sunny Ortez EGFR-NON AF HAITIAN 57 mL/min/1.73m2 Critically low >=60 [facility] Comment on above: Performed By: #### C MP #### [facility] [address] [address] [address] Sunny Ortez Globulin (S) [Mass/Vol] 3.7 g/dL Normal [facility] Comment on above: Performed By: #### C MP #### [facility] [address] [address] [address] Sunny Ortez Glucose [Mass/Vol] 108 mg/dL Critically high 74-106 [facility] Comment on above: Performed By: #### C MP #### [facility] [address] [address] [address] Sunny Ortez Potassium [Moles/Vol] 4.1 mmol/L Normal 3.5-5.1 [facility] Comment on above: Performed By: #### C MP #### [facility] [address] [address] [address] Sunny Ortez Protein [Mass/Vol] 7.4 g/dL Normal 6.4-8.2 [facility] Comment on above: Performed By: #### C MP #### [facility] [address] [address] [address] Sunny Ortez Sodium [Moles/Vol] 141 mmol/L Normal 136-145 [facility] Comment on above: Performed By: #### C MP #### [facility] [address] [address] [address] Sunny Ortez Urea nitrogen [Mass/Vol] 16.0 mg/dL Normal 7.0-18.0 [facility] Comment on above: Performed By: #### C MP #### [facility] [address] [address] [address] Sunny Ortez Urea nitrogen/Creatinine [Mass ratio] 12.4 mg/mg Normal [facility] Comment on above: Performed By: #### C MP #### [facility] [address] [address] [address] Sunny Ortez OCC BLD IMMUNO SCREENon 10-12 OCCULT BLOOD Negative Normal NEGATIVE [facility] Comment on above: Performed By: #### O BSCRN #### [facility] [address] [address] [address] Sunny Ortez Covid-19 PCR ([facility])on 10-12 SARS-CoV-2 (COVID-19) RNA RENÉE+probe Ql (Unsp spec) Not detected Normal NOT DETECTED [facility] Comment on above: Result Comment: When [...] for this test is supported by the [place] of [employer] and Human Service's declaration that [...] used). Performed By: #### C MP #### [facility] [address] [address] [address] Sunny Ortez MRI ABDOMEN W CONon [...] ELVIN JENKINS Date: 2021-05-06 07:49 Normal [facility] CREATININEon 05-04-2021 Creatinine [Mass/Vol] 1.37 mg/dL Critically high 0.66-1.25 [facility] Comment on above: Performed By: #### C ALISHA #### [facility] [address] [place] [address] Dr. Sunny Ortez EGFR-AF HAITIAN >60 Normal >=60 [facility] Comment on above: Performed By: #### C ALISHA #### [facility] [address] [address] [address] Sunny Ortez EGFR-NON AF HAITIAN 53 mL/min/1.73m2 Critically low >=60 [facility] Comment on above: Performed By: #### C ALISHA #### [facility] [address] [place] [address] Dr. Sunny Ortez CREATININEon 04-12-2021 Creatinine [Mass/Vol] 1.28 mg/dL Critically high 0.66-1.25 [facility] Comment on above: Performed By: #### C ALISHA #### [facility] [address] [address] [address] Sunny Ortez EGFR-AF HAITIAN >60 Normal >=60 [facility] Comment on above: Performed By: #### C ALISHA #### [facility] [address] [place] [address] Dr. Sunny Ortez EGFR-NON AF HAITIAN 58 mL/min/1.73m2 Critically low >=60 [facility] Comment on above: Performed By: #### C ALISHA #### [facility] [address] [address] [address] Sunny Ortez MRI ABDOMEN WO CONon [...] STEVE COLLADO Date: 2021-04-12 14:39 Normal [facility] CT ABD/PELV W CONon 03-28-19 22 [...] mild inflammatory changes. Consider cystitis Normal [facility] INSULINon 03-26-2021 Insulin 30.7 uIU/mL Critically high 2.6-24.9 [facility] Comment on above: Performed By: #### I NSULIN #### [facility] [address] [address] [address] Sunny Ortez XR KNEE LT 4V [...] STEVE PALACIOS Date: 2021-03-25 17:14 Normal [facility] BNPon 03-24-2021 Natriuretic peptide B (Bld) [Mass/Vol] 202.0 pg/mL Normal <=900.0 [facility] Comment on above: Performed By: #### C MP #### [facility] [address] [address] [address] Sunny Ortez CBC AUTO DIFFon 03-24-2021 BASO # 0.1 103/ul Normal 0.0-0.1 [facility] Comment on above: Performed By: #### C BC #### [facility] [address] [address] [address] Sunny Ortez Basophils/100 WBC (Bld) 0.8 % Normal 0.2-2.0 [facility] Comment on above: Performed By: #### C BC #### [facility] [address] [address] [address] Sunny Ortez EO # 0.5 103/ul Normal 0.0-0.7 [facility] Comment on above: Performed By: #### C BC #### [facility] [address] [address] [address] Sunny Ortez Eosinophils/100 WBC (Bld) 4.6 % Normal 0.9-7.0 [facility] Comment on above: Performed By: #### C BC #### [facility] [address] [place] [address] Dr. Sunny Ortez Erythrocyte distribution width (RBC) [Ratio] 13.6 % Normal 11.0-15.0 [facility] Comment on above: Performed By: #### C BC #### [facility] [address] [place] [address] Dr. Sunny Ortez Hematocrit (Bld) [Volume fraction] 45.6 % Normal 42.0-54.0 [facility] Comment on above: Performed By: #### C BC #### [facility] [address] [place] [address] Dr. Sunny Ortez Hemoglobin (Bld) [Mass/Vol] 15.2 g/dL Normal 14.0-18.0 [facility] Comment on above: Performed By: #### C BC #### [facility] [address] [address] [address] Sunny Ortez IG # 0.04 10e3/ul Critically high 0.00-0.03 [facility] Comment on above: Performed By: #### C BC #### [facility] [address] [address] [address] Sunny Ortez IG % 0.4 % Normal 0.0-0.5 [facility] Comment on above: Performed By: #### C BC #### [facility] [address] [place] [address] Dr. Sunny Ortez LYMPH # 1.9 103/ul Normal 1.2-3.8 [facility] Comment on above: Performed By: #### C BC #### [facility] [address] [place] [address] Dr. Sunny Ortez Lymphocytes/100 WBC (Bld) 18.4 % Critically low 20.5-60.0 [facility] Comment on above: Performed By: #### C BC #### [facility] [address] [place] [address] Dr. Sunny Ortez MANUAL DIFF REQ NO Normal [facility] Comment on above: Performed By: #### C BC #### [facility] [address] [place] [address] Dr. Sunny Ortze MCH (RBC) [Entitic mass] 27.9 pg Normal 25.9-34.0 [facility] Comment on above: Performed By: #### C BC #### [facility] [address] [place] [address] Dr. Sunny Ortez MCHC (RBC) [Mass/Vol] 33.3 g/dL Normal 29.9-35.2 [facility] Comment on above: Performed By: #### C BC #### [facility] [address] [place] [address] Dr. Sunny Ortez MCV (RBC) [Entitic vol] 83.7 fL Normal 80.0-94.0 [facility] Comment on above: Performed By: #### C BC #### [facility] [address] [place] [address] Dr. Sunny Ortez MONO # 0.8 103/ul Normal 0.3-0.8 [facility] Comment on above: Performed By: #### C BC #### [facility] [address] [place] [address] Dr. Sunny Ortez Monocytes/100 WBC (Bld) 8.0 % Normal 1.7-12.0 [facility] Comment on above: Performed By: #### C BC #### [facility] [address] [place] [address] Dr. Sunny Ortez NEUT # 7.0 103/ul Critically high 1.4-6.5 [facility] Comment on above: Performed By: #### C BC #### [facility] [address] [place] [address] Dr. Sunny Ortez Neutrophils/100 WBC (Bld) 67.8 % Normal 43.0-75.0 [facility] Comment on above: Performed By: #### C BC #### [facility] [address] [place] [address] Dr. Sunny Ortez Platelet mean volume (Bld) [Entitic vol] 9.5 fL Normal 9.5-13.5 [facility] Comment on above: Performed By: #### C BC #### [facility] [address] [place] [address] Dr. Sunny Ortez PLT 322 103/ul Normal 150-450 [facility] Comment on above: Performed By: #### C BC #### [facility] [address] [place] [address] Dr. Sunny Ortez RBC 5.45 106/ul Normal 4.70-6.10 [facility] Comment on above: Performed By: #### C BC #### [facility] [address] [place] [address] Dr. Sunny Ortez WBC 10.4 103/ul Normal 4.0-11.0 [facility] Comment on above: Performed By: #### C BC #### [facility] [address] [place] [address] Dr. Sunny Ortez FREE THYROXINE INDEX T7on FTI 3.01 Normal [facility] Comment on above: Performed By: #### C MP #### [facility] [address] [place] [address] Dr. Sunny Ortez T3U 35.0 % Normal 23.5-40.5 [facility] Comment on above: Performed By: #### C MP #### [facility] [address] [place] [address] Dr. Sunny Ortez T4 [Mass/Vol] 8.60 ug/dL Normal 5.53-11.00 [facility] Comment on above: Performed By: #### C MP #### [facility] [address] [place] [address] Dr. Sunny Ortez GLYCOHEMOGLOBIN A1Con 2021 ADA RECOMMENDATION ADA THERAPEUTIC TARG ET 6.0 - 7.0 ACTION SUGGESTED > 7.0 Normal [facility] Comment on above: Performed By: #### A 1C #### [facility] [address] [place] [address] Dr. Sunny Ortez Glucose [Mass/Vol] 197 mg/dL Normal [facility] Comment on above: Performed By: #### A 1C #### [facility] [address] [place] [address] Dr. Sunny Ortez HbA1c (Bld) [Mass fraction] 8.5 % Critically high <=6.0 [facility] Comment on above: Performed By: #### A 1C #### [facility] [address] [place] [address] Dr. Sunny Ortez LIPID PROFILEon 03-24-2021 CHOL-HDL RATIO NORM SEE BELOW Normal [facility] Comment on above: Result Comment: 3.3 - 4.4 LOW RISK 4.4 - 7.1 AVERAGE RISK 7.1 - 11.0 MODERATE RISK >11.0 HIGH RISK Performed By: #### C MP #### [facility] [address] [place] [address] Dr. Sunny Ortez Cholesterol [Mass/Vol] 150 mg/dL Normal <=200 [facility] Comment on above: Performed By: #### C MP #### [facility] [address] [place] [address] Dr. Sunny Ortez Cholesterol in HDL [Mass/Vol] 30 mg/dL Normal [facility] Comment on above: Performed By: #### C MP #### [facility] [address] [place] [address] Dr. Sunny Ortez Cholesterol in LDL [Mass/Vol] 96.8 mg/dL Normal [facility] Comment on above: Performed By: #### C MP #### [facility] [address] [place] [address] Dr. Sunny Ortez Cholesterol.total/Chol esterol in HDL [Mass ratio] 5.0 {ratio} Normal [facility] Comment on above: Performed By: #### C MP #### [facility] [address] [place] [address] Dr. Snuny Ortez HDL NORMAL > or = 60 mg/dl - LO W CARDIOVASCULAR RISK <40 mg/dl - HIGH CARDIOVASCULAR RISK Normal [facility] Comment on above: Performed By: #### C MP #### [facility] [address] [place] [address] Dr. Sunny Ortez LDL CALC NORMAL SEE BELOW Normal [facility] Comment on above: Result Comment: <100 mg/dl OPTIMAL 100 - 129 mg/dl NEAR OR ABOVE OPTIMAL 130 - 159 mg/dl BORDERLINE HIGH 160 - 189 mg/dl HIGH >190 mg/dl VERY HIGH Performed By: #### C MP #### [facility] [address] [place] [address] Dr. Sunny Ortez Triglyceride [Mass/Vol] 116 mg/dL Normal <=150 [facility] Comment on above: Performed By: #### C MP #### [facility] [address] [place] [address] Dr. Sunny Ortez VLDL CALC 23.2 mg/dL Normal [facility] Comment on above: Performed By: #### C MP #### [facility] [address] [place] [address] Dr. Sunyn Ortez PROF 14(COMP METB)on 022 Albumin [Mass/Vol] 3.5 g/dL Normal 3.5-5.0 [facility] Comment on above: Performed By: #### C MP #### [facility] [address] [place] [address] Dr. Sunny Ortez Albumin/Globulin [Mass ratio] 1.0 {ratio} Normal [facility] Comment on above: Performed By: #### C MP #### [facility] [address] [place] [address] Dr. Sunny Ortez ALP [Catalytic activity/Vol] 73 U/L Normal 38-126 [facility] Comment on above: Performed By: #### C MP #### [facility] [address] [address] [address] Sunny Ortez ALT [Catalytic activity/Vol] 28 U/L Normal 21-72 [facility] Comment on above: Performed By: #### C MP #### [facility] [address] [address] [address] Sunny Ortez Anion gap [Moles/Vol] 14.7 mmol/L Normal [facility] Comment on above: Performed By: #### C MP #### [facility] [address] [address] [address] Sunny Ortez AST [Catalytic activity/Vol] 13 U/L Critically low 17-59 [facility] Comment on above: Performed By: #### C MP #### [facility] [address] [address] [address] Sunny Ortez Bilirubin [Mass/Vol] 0.7 mg/dL Normal 0.2-1.3 [facility] Comment on above: Performed By: #### C MP #### [facility] [address] [address] [address] Sunny Ortez Calcium [Mass/Vol] 8.6 mg/dL Normal 8.4-10.2 [facility] Comment on above: Performed By: #### C MP #### [facility] [address] [address] [address] Sunny Ortez Chloride [Moles/Vol] 105 mmol/L Normal 98-107 [facility] Comment on above: Performed By: #### C MP #### [facility] [address] [address] [address] Sunny Ortez CO2 [Moles/Vol] 23.6 mmol/L Normal 22.0-30.0 [facility] Comment on above: Performed By: #### C MP #### [facility] [address] [address] [address] Sunny Ortez Creatinine [Mass/Vol] 1.33 mg/dL Critically high 0.66-1.25 [facility] Comment on above: Performed By: #### C MP #### [facility] [address] [address] [address] Sunny Ortez EGFR-AF HAITIAN >60 Normal >=60 [facility] Comment on above: Performed By: #### C MP #### [facility] [address] [address] [address] Sunny Ortez EGFR-NON AF HAITIAN 55 mL/min/1.73m2 Critically low >=60 [facility] Comment on above: Performed By: #### C MP #### [facility] [address] [address] [address] Sunny Ortez Globulin (S) [Mass/Vol] 3.6 g/dL Normal [facility] Comment on above: Performed By: #### C MP #### [facility] [address] [address] [address] Sunny Ortez Glucose [Mass/Vol] 253 mg/dL Critically high 74-106 [facility] Comment on above: Performed By: #### C MP #### [facility] [address] [address] [address] Sunny Ortez Potassium [Moles/Vol] 4.3 mmol/L Normal 3.4-5.0 [facility] Comment on above: Performed By: #### C MP #### [facility] [address] [address] [address] Sunny Ortez Protein [Mass/Vol] 7.1 g/dL Normal 6.1-8.2 [facility] Comment on above: Performed By: #### C MP #### [facility] [address] [address] [address] Sunny Ortez Sodium [Moles/Vol] 139 mmol/L Normal 137-145 [facility] Comment on above: Performed By: #### C MP #### [facility] [address] [address] [address] Sunny Ortez Urea nitrogen [Mass/Vol] 18.0 mg/dL Normal 9.0-20.0 [facility] Comment on above: Performed By: #### C MP #### [facility] [address] [address] [address] Sunny Ortez Urea nitrogen/Creatinine [Mass ratio] 13.5 mg/mg Normal [facility] Comment on above: Performed By: #### C MP #### [facility] [address] [place] [address] Dr. Sunny Ortez TSHon 03-24-2021 TSH 1.335 uIU/mL Normal 0.470-4.68 0 [facility] Comment on above: Performed By: #### C MP #### [facility] [address] [address] [address] Sunny Ortez TSH RANGE SEE BELOW Normal [facility] Comment on above: Result Comment: <0.3 4 UIU/ml HYPERTHYROID 0.34-5.60 UIU/ml EUTHYROID >5.60 UIU/ml HYPOTHYROID Performed By: #### C MP #### [facility] [address] [place] [address] Dr. Sunny Ortez URIC ACID SERUMon 03-24-2021 Urate [Mass/Vol] 4.9 mg/dL Normal 3.5-8.5 [facility] Comment on above: Performed By: #### C MP #### [facility] [address] [place] [address] Dr. Sunny Ortez Basic Metabolic Panlon 06-20 Anion gap [Moles/Vol] 11 mmol/L Normal 9-18 [facility] Calcium [Mass/Vol] 8.9 mg/dL Normal 8.5-10.[address] [facility] Chloride [Moles/Vol] 106 mmol/L High 97-105 [facility] CO2 [Moles/Vol] 22 mmol/L Normal 22-30 [facility] Creatinine [Mass/Vol] 1.28 mg/dL High 0.73-1.22 [facility] eGFR- Amer. >[address] [facility] GFR/1.73 sq M predicted among non-blacks MDRD (S/P/Bld) [Vol rate/Area] 58 . Normal [facility] Comment on above: Result Comment: eGFR (Estimated [...] GFR. Glucose [Mass/Vol] 148 mg/dL High 74-[address] [facility] Comment on above: Result Comment: The [place] [employer] (ADA) provides guidance for cutoff [...] Standards of Medical Care in Diabetes 2016, [place] [employer]. Diabetes Care. 2016.39(Suppl 1). Potassium [Moles/Vol] 4.5 mmol/L Normal 3.7-5.1 [facility] Sodium [Moles/Vol] 139 mmol/L Normal 136-[address] [facility] Urea nitrogen [Mass/Vol] 10 mg/dL Normal 9-24 [facility] CLARENCE FLORES ([id number]) 1960 M Date Time Provider Department 06/21/19 DIANE DILLON) FRIDA During your visit today, we recorded the following information about you: Diane Dillon PA-C 06/21/2019 2:[address] and CXR with no recurrence or mets. Repeat CT and CXR in 6M. Patient to schedule on his own at [facility] [place] Dillon PA-C Pager [phone] Office [id number] Allergies As of Date: 06/21/2019 Noted Allergy Reaction NITROGLYCERIN 11/26/2018 14 - Other: See Comments Date Reviewed: 02/05/2019 Reviewed by: Diane Dunn) Darshana - Fully Assessed Reason for Visit: Results [95] Primary Visit Diagnosis:Left renal mass [N28.89] Other Visit Diagnosis:Renal cell carcinoma of left kidney (HCC) [C64.2] Order(s):XR CHEST 2V FRONTAL/LAT [6153031] Order #: [id number] FUTURE CT ABD/PEL W IVCON [[id number]] Order #: [id number] FUTURE iv contrast (will be provided with [...] by DIANE DILLON PA-C on 06/21/19 Normal [facility] CT ABD/PEL W IVCONon 020 CT ABD/PEL W IVCON * * *Final Report* * * DATE OF EXAM: Jun 21 2019 9:40AM [facility] 0530 - CT ABD/PEL W IVCON / [...] any questions regarding this interpretation, please call [phone]. If you are unable to reach us at the number above, please feel free to contact [facility] eRadiology at [phone]. [id number] [facility] PRO[facility] 06-21-2019 PROGRESS HNO ID: [id number] Author: Holly Garcia (Tech) Service: ? Author Type: Certified Bench Jeweler Technician Type: Progress Notes Filed: 06/21/2019 2:25 PM [...] Garcia June 21, 2019 2:24 PM Normal [facility] PROGRESS HNO ID: [id number] Author: Holly Garcia (Tech) Service: ? Author Type: Certified Bench Jeweler Technician Type: Progress Notes Filed: 06/21/2019 9:51 AM [...] safety can be found using this link: [email or web address] SIGNATURE: Holly Garcia PATIENT NAME: Clarence Flores DATE: June 21, 2019 TIME: 8:39 AM PAGER/CONTACT #: Normal [facility] XR CHEST 2V FRONTAL/LATon XR CHEST 2V [...] any questions regarding this interpretation, please call [phone]. If you are unable to reach us at the number above, please feel free to contact [facility] eRadiology at [phone]. [id number] Normal [facility] Telephone (RADTSA) -- CLARENCE FLORES ([id number]) 1960 M Date Time Provider Department 06/17/19 MAICO ANG (HISTORICAL) RADTSA During your visit today, we recorded the following information about you: Clarisse Alicia 06/17/2019 3:19 PM Signed Clarence Flores [id number] is coming in Tuesday 06/20 for CTs w/IV on; please sign pending ISTAT BMP as our lab's chemistry will be down that day and he will need CRE clearance prior to. Thanks Clarisse Alicia documentation consultant [facility] Allergies As of Date: 06/17/2019 Noted Allergy Reaction NITROGLYCERIN 11/26/2018 14 - Other: See Comments Date Reviewed: 02/05/2019 Reviewed by: Diane Shah (Guerad Dillon - Fully Assessed Reason for Visit: Orders [681] Primary Visit Diagnosis:Left renal mass [N28.89] Order(s):ISTAT BMP [SQISTBMP] Order #: [id number] FUTURE Prescriptions as of 06/17/2019 Sig: IV [...] by DIANE DILLON PA-C on 06/17/19 Normal [facility] Reminderson 03-29-2019 Reminders - From: Jackie Lundberg To: EU - Recalls Sales; Sent: 12/07/2018 14:58:31 EDT Show up: 03/13/2019 14:58:00 EST Subject: ct scan of chest w contrast Due Date/Time: 04/09/2019 14:58:00 EST Reminder/Recall Schedule repeat testing. Test: CT Scan of chest with contrast Test due in: _ 4 months due in Mar 2019 Left message on [employer]. Pt being discharged due to noncompliance Normal [facility] CNOVon 02-05-2019 CNOV Office Visit (UROLMN ) -- CLARENCE FLORES ([id number]) 1960 M Date Time Provider Department 02/05/19 10:50 AM DIANE DILLON) UROLMN During your visit today, we recorded the following information about you: Pulse Blood pressure Weight Height 64/minute 179/81 120.5 kg 1.676 m Diane Dillon PA-C 02/05/2019 10:49 AM Signed [facility] POST-OPERATIVE PATIENT CC: Patient is here [...] PA-C Electronically signed Referring Provider: MAICO ANG [[id number]] Allergies As of Date: 02/05/2019 Noted Allergy Reaction NITROGLYCERIN 11/26/2018 14 - Other: See Comments Date Reviewed: 02/05/2019 Reviewed by: Diane Dillon - Fully Assessed Visit Diagnosis:Renal cell carcinoma of left kidney (HCC) [C64.2] Order(s):CT ABD/PEL W IVCON [[id number]] Order #: [id number] FUTURE iv contrast (will be provided with [...] 1 EachRfl: 0 XR CHEST 2V FRONTAL/LAT [[id number]] Order #: [id number] FUTURE BASIC METABOLIC PNL [SQBMP] Order #: [id number] FUTURE Prescriptions as of 02/05/2019 Sig: HYDRALAZINE [...] Status:Closed by DIANE DILLON PA-C on 02/05/19 [facility] CNPTOUTREAMaria M 02-05-2019 [facility] Patient Outreach (UR OLMN) -- CLARENCE FLORES ([id number]) 1960 M Date Time Provider Department 02/05/19 DIANE DILLON) UROJenny During your visit today, we recorded the following information about you: Allergies As of Date: 02/05/2019 Noted Allergy Reaction NITROGLYCERIN 11/26/2018 14 - Other: See Comments Date Reviewed: 02/05/2019 Reviewed by: Diane Dunn) Darshana - Fully Assessed Visit Diagnosis:Screening for genitourinary condition [Z13.89] Order(s):UA CHEMSTRIP ONLY [SQUA] Order #: [id number]. 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 Author Type: Physician Beauty Operator Type: Progress Notes Filed: 02/05/2019 10:49 AM Note Text: [facility] POST-OPERATIVE PATIENT CC: Patient is here [...] if any new symptoms or conditions arise Diaen Dillon PA-C Electronically signed Normal [facility] Urinalysison 02-05-2019 Bilirubin, Urine Negative Normal Negative Kye bonilla [facility] Comment on above: Performed By: #### U A ####[facility] [place] [address] [phone] Clarity (U) Clear Normal Clear [facility] Comment on above: Performed By: #### U A ####[id number] [place], [place] [phone] Color (U) Yellow Normal Yellow [facility] Comment on above: Performed By: #### U A ####[address] [phone] Comments SEE COMMENT Normal [facility] Comment on above: Result Comment: Micr oscopic not warranted Performed By: #### U A ####[address] [address] [address] [phone] Glucose Ql (U) Negative Normal Negative [facility] Comment on above: Performed By: #### U A ####[address] [address] [address] [phone] Hemoglobin/Blood,Ur Negative Normal Negative [facility] Comment on above: Performed By: #### U A ####[address] [address] [address] [phone] Ketones Ql (U) Negative Normal Negative [facility] Comment on above: Performed By: #### U A ####[address] [address] [address] [phone] Leukest Negative Normal Negative [facility] Comment on above: Performed By: #### U A ####[address] [address] [address] [phone] Nitrite Ql (U) Negative Normal Negative [facility] Comment on above: Performed By: #### U A ####[address] [address] [address] [phone] pH (Bld) 6.5 Normal 4.5-8.0 [facility] Comment on above: Performed By: #### U A ####[address] [address] [address] [phone] Protein (U) [Mass/Vol] Trace Criticall y abnormal Negative [facility] Comment on above: Performed By: #### U A ####[address] [address] [address] [phone] Specific [place], Ur 1.020 Normal 1.005-1 .03 0 [facility] Comment on above: Performed By: #### U A ####[address] [address] [address] [place], [place] [phone] Urine Shin Comment SEE COMMENT Normal [facility] Comment on above: Result Comment: N/A Performed By: #### U A ####[address] [address] [address] [place], [place] [phone] Urobilinogen Qn (U) Normal Normal Normal [facility] Comment on above: Performed By: #### U A ####[address] [address] [address] [place] [phone] Basic Metabolic Panlon 12-25 Anion gap [Moles/Vol] 9 mmol/L Normal 9-18 [facility] Comment on above: Performed By: #### C BCDIF, BMP ####[address] [phone] Calcium [Mass/Vol] 8.3 mg/dL Low 8.5-10.[address] [facility] Comment on above: Performed By: #### C BCDIF, BMP ####[address] [address] [address] [phone] Chloride [Moles/Vol] 109 mmol/L High 97-105 [facility] Comment on above: Performed By: #### C BCDIF, BMP ####[address] [address] [address] [phone] CO2 [Moles/Vol] 21 mmol/L Low 22-30 [facility] Comment on above: Performed By: #### C BCDIF, BMP ####[address] [address] [address], [place] [phone] Creatinine [Mass/Vol] 1.24 mg/dL High 0.73-1.22 [facility] Comment on above: Performed By: #### C BCDIF, BMP ####[address] [address] [address], [place] [phone] eGFR- Amer. >[address] [facility] Comment on above: Performed By: #### C BCDIF, BMP ####[facility] [place], [place] [phone] GFR/1.73 sq M predicted among non-blacks MDRD (S/P/Bld) [Vol rate/Area] mL/min/{1.73_m2} Normal [facility] Comment on above: Result Comment: eGFR (Estimated [...] GFR. Performed By: #### C BCDIF, BMP ####[facility] [place], [place] [phone] Glucose [Mass/Vol] 117 mg/dL High 74-[address] [facility] Comment on above: Result Comment: The [place] Diabetes [employer] (ADA) provides guidance for cutoff [...] Standards of Medical Care in Diabetes 2016, [place] [employer]. Diabetes Care. 2016.39(Suppl 1). Performed By: #### C BCDIF, BMP ####[facility] [place], [place] [phone] Potassium [Moles/Vol] 3.8 mmol/L Normal 3.7-5.1 [facility] Comment on above: Performed By: #### C BCDIF, BMP ####[address] [address] [address] [phone] Sodium [Moles/Vol] 139 mmol/L Normal 136-[address] [facility] Comment on above: Performed By: #### C BCDIF, BMP ####[address] [address] [address] [phone] Urea nitrogen [Mass/Vol] 16 mg/dL Normal 9-24 [facility] Comment on above: Performed By: #### C BCKRYSTAL, BMP ####[address] [address] [address] [phone] CBC and Differentialon 12-25 Abs Baso 0.04 k/uL Normal <0.11 [facility] Comment on above: Performed By: #### C BCDIF, BMP ####[address] [address] [address] [phone] Abs [place] 1.12 k/uL High <0.87 [facility] Comment on above: Performed By: #### C BCDIF, BMP ####[address] [address] [place] [phone] Abs Neut 9.63 k/uL High 1.45-7.50 [facility] Comment on above: Performed By: #### C BCDIF, BMP ####[address] [address] [address], [place] [phone] Absolute nRBC <0.01 Normal <0.01 [facility] Comment on above: Performed By: #### C BCDIF, BMP ####[place] [address] [address] [phone] Basophils/100 WBC (Bld) 0.3 % Normal [facility] Comment on above: Performed By: #### C BCDIF, BMP ####[address] [address] [address], [place] [phone] DTYPE Auto Diff Normal [facility] Comment on above: Performed By: #### C BCDIF, BMP ####[place] [address] [address] [phone] Eosinophils (Bld) [#/Vol] 0.24 10*3/uL Normal <0.46 [facility] Comment on above: Performed By: #### C BCDIF, BMP ####[place] [address] [address] [phone] Eosinophils/100 WBC (Bld) 2.0 % Normal [facility] Comment on above: Performed By: #### C BCDIF, BMP ####[place] [address] [address] [phone] Erythrocyte distribution width (RBC) [Ratio] 13.7 % Normal 11.5-15.0 [facility] Comment on above: Performed By: #### C BCDIF, BMP ####[place] [address] [address] [phone] Hematocrit (Bld) [Volume fraction] 39.9 % Normal 39.0-51.0 [facility] Comment on above: Performed By: #### C BCDIF, BMP ####[place] [address] [address] [phone] Hemoglobin (Bld) [Mass/Vol] 13.3 g/dL Normal 13.0-17.0 [facility] Comment on above: Performed By: #### C BCDIF, BMP ####[place] [address] [phone] Lymphocytes (Bld) [#/Vol] 1.25 10*3/uL Normal 1.00-4.00 [facility] Comment on above: Performed By: #### C BCDIF, BMP ####[place] [address] [address], [place] [phone] Lymphocytes/100 WBC (Bld) 10.2 % Normal [facility] Comment on above: Performed By: #### C BCDIF, BMP ####[place] [address], [place] [phone] MCH (RBC) [Entitic mass] 29.3 pG Normal 26.0-34.0 [facility] Comment on above: Performed By: #### C BCDIF, BMP ####[place] [address], [place] [phone] MCHC (RBC) [Mass/Vol] 33.3 g/dL Normal 30.5-36.0 [facility] Comment on above: Performed By: #### C BCDIF, BMP ####[place] [address], [place] [phone] MCV (RBC) [Entitic vol] 87.9 fL Normal 80.0-100.0 [facility] Comment on above: Performed By: #### C BCDIF, BMP ####[place] [address], [place] [phone] Monocytes/100 WBC (Bld) 9.1 % Normal [facility] Comment on above: Performed By: #### C BCDIF, BMP ####[place] [address], [place] [phone] Neutrophils/100 WBC (Bld) 78.4 % Normal [facility] [facility] Comment on above: Performed By: #### C BCDIF, BMP ####[place] [address], [place] [phone] NRBCs 0.0 /100 WBC Normal 0 [facility] Comment on above: Performed By: #### C BCDIF, BMP ####[place] [address], [place] [phone] Platelet mean volume (Bld) [Entitic vol] 9.6 fL Normal 9.0-12.7 [facility] Comment on above: Performed By: #### C BCDIF, BMP ####[facility] [place], [place] [phone] Platelets (Bld) [#/Vol] 241 10*3/uL Normal 150-400 [facility] Comment on above: Performed By: #### C BCDIF, BMP ####[facility], [place] [phone] RBC (Bld) [#/Vol] 4.54 10*6/uL Normal 4.20-6.00 [facility] Comment on above: Performed By: #### C BCDIF, BMP ####[facility] [place], [place] [phone] WBC (Bld) [#/Vol] 12.28 10*3/uL High 3.70-11.00 [facility] Comment on above: Performed By: #### C BCDIF, BMP ####[facility] [place], [place] [phone] PROGRESSon 12-25-2018 PROGRESS HNO ID: [id number] Author: Clarence Schmidt Service: Urology Author Type: Resident Type: Progress Notes Filed: 12/25/2018 9:45 AM Note Text: [facility] UROLOGY PROGRESS NOTE Name: Clarence Flores Bed: [id number]/[id number] Date: December 25, 2018 After Hours [facility] Urology Service Pager: [phone] ASSESSMENT AND PLAN Clarence Flores is a [...] Imaging n/a Clarence Schmidt MD Personal Pager: [phone] For weekend or after hours issues [place] [phone] Normal [facility] PROGRESS HNO ID: [id number] Author: Kate Ruiz) Hrnchar Service: Urology Author [...] PRN - sodium chloride 0.65 % 2 [place] (AYR, OCEAN) 2 [place] EACH NOSTRIL PRN - tamsulosin ER 0.4 [...] to discharge. Signature: Kate Seymour CNP Pager: [phone] Date of service: 12/25/2018 Normal [facility] Basic Metabolic Panlon 12-24 Anion gap [Moles/Vol] 16 mmol/L Normal 9-18 [facility] Comment on above: Performed By: #### C BCDIF, BMP ####[facility] [phone] Calcium [Mass/Vol] 8.7 mg/dL Normal 8.5-10.[address] [facility] Comment on above: Performed By: #### C BCDIF, BMP ####[place] [address] [place], [place] [phone] Chloride [Moles/Vol] 104 mmol/L Normal 97-105 [facility] Comment on above: Performed By: #### C BCDIF, BMP ####[facility] [place] [phone] CO2 [Moles/Vol] 18 mmol/L Low 22-30 [facility] Comment on above: Performed By: #### C BCDIF, BMP ####[facility] [place] [phone] Creatinine [Mass/Vol] 1.26 mg/dL High 0.73-1.22 [facility] Comment on above: Performed By: #### C BCDIF, BMP ####[facility] [place] [phone] eGFR- Amer. >[address] [facility] Comment on above: Performed By: #### C BCDIF, BMP ####[facility], [place] [phone] GFR/1.73 sq M predicted among non-blacks MDRD (S/P/Bld) [Vol rate/Area] 59 . Normal [facility] Comment on above: Result Comment: eGFR (Estimated [...] GFR. Performed By: #### C NIRALI VINSON ####[facility], [place] [phone] Glucose [Mass/Vol] 117 mg/dL High 74-[address] [facility] Comment on above: Result Comment: The [place] Diabetes [employer] (ADA) provides guidance for cutoff [...] Standards of Medical Care in Diabetes 2016, [place] [employer]. Diabetes Care. 2016.39(Suppl 1). Performed By: #### C NIRALI VINSON ####[facility] [address] [place], [place] [phone] Potassium [Moles/Vol] 4.0 mmol/L Normal 3.7-5.1 [facility] Comment on above: Performed By: #### C NIRALI VINSON ####[facility] [address] [place], [place] [phone] Sodium [Moles/Vol] 138 mmol/L Normal 136-[address] [facility] Comment on above: Performed By: #### C BCDIF, BMP ####[place] [address] [place] [phone] Urea nitrogen [Mass/Vol] 15 mg/dL Normal 9-24 [facility] Comment on above: Performed By: #### C BCDIF, BMP ####[place] [address] [place] [phone] CBC and Differentialon 12-24 Abs Baso 0.06 k/uL Normal <0.11 [facility] Comment on above: Performed By: #### C BCDIF, BMP ####[place] [address] [place] [phone] Abs [place] 1.82 k/uL High <0.87 [facility] Comment on above: Performed By: #### C BCDIF, BMP ####[place] [address] [place] [phone] Abs Neut 13.61 k/uL High 1.45-7.50 [facility] Comment on above: Performed By: #### C BCDIF, BMP ####[place] [address] [place] [phone] Absolute nRBC <0.01 Normal <0.01 [facility] Comment on above: Performed By: #### C BCDIF, BMP ####[place] [address] [place] [phone] Basophils/100 WBC (Bld) 0.4 % Normal [facility] Comment on above: Performed By: #### C BCDIF, BMP ####[place] [address] [place] [phone] DTYPE Auto Diff Normal [facility] Comment on above: Performed By: #### C BCDIF, BMP ####[place] [address] [place] [phone] Eosinophils (Bld) [#/Vol] 0.03 10*3/uL Normal <0.46 [facility] Comment on above: Performed By: #### C BCDIF, BMP ####[place] [address] AveClevelTerri [place] [phone] Eosinophils/100 WBC (Bld) 0.2 % Normal [facility] Comment on above: Performed By: #### C BCDIF, BMP ####[place] [address]ClevelTer[address] [place] [phone] Erythrocyte distribution width (RBC) [Ratio] 13.7 % Normal 11.5-15.0 [facility] Comment on above: Performed By: #### C BCDIF, BMP ####[place] [address] [place] [phone] Hematocrit (Bld) [Volume fraction] 43.5 % Normal 39.0-51.0 [facility] Comment on above: Performed By: #### C BCDIF, BMP ####[place] [address]ClevelTer[address] [place] [phone] Hemoglobin (Bld) [Mass/Vol] 14.5 g/dL Normal 13.0-17.0 [facility] Comment on above: Performed By: #### C BCDIF, BMP ####[place] [address]ClevelTer[address] [place] [phone] Lymphocytes (Bld) [#/Vol] 1.16 10*3/uL Normal 1.00-4.00 [facility] Comment on above: Performed By: #### C BCDIF, BMP ####[place] [address] AveClevelandAaron [place] [phone] Lymphocytes/100 WBC (Bld) 7.0 % Normal [facility] Comment on above: Performed By: #### C BCDIF, BMP ####[place] [address]ClevelTer[address] [place] [phone] MCH (RBC) [Entitic mass] 29.3 pG Normal 26.0-34.0 [facility] Comment on above: Performed By: #### C BCDIF, BMP ####[place] [address], [place] [phone] MCHC (RBC) [Mass/Vol] 33.3 g/dL Normal 30.5-36.0 [facility] Comment on above: Performed By: #### C BCDIF, BMP ####[place] [address], [place] [phone] MCV (RBC) [Entitic vol] 87.9 fL Normal 80.0-100.0 [facility] Comment on above: Performed By: #### C BCDIF, BMP ####[place] [address], [place] [phone] Monocytes/100 WBC (Bld) 10.9 % Normal [facility] Comment on above: Performed By: #### C BCDIF, BMP ####[place] [address], [place] [phone] Neutrophils/100 WBC (Bld) 81.5 % Normal [facility] Comment on above: Result Comment: Diff erential confirmed by visual scan of peripheral blood smear slide. Performed By: #### C BCDIF, BMP ####[place] [address], [place] [phone] NRBCs 0.0 /100 WBC Normal 0 [facility] Comment on above: Performed By: #### C BCDIF, BMP ####[place] [address], [place] [phone] Platelet mean volume (Bld) [Entitic vol] 9.6 fL Normal 9.0-12.7 [facility] Comment on above: Performed By: #### C BCDIF, BMP ####[place] [address], [place] [phone] Platelets (Bld) [#/Vol] 278 10*3/uL Normal 150-400 [facility] Comment on above: Performed By: #### C BCDIF, BMP ####[facility] [place], [place] [phone] RBC (Bld) [#/Vol] 4.95 10*6/uL Normal 4.20-6.00 [facility] Comment on above: Performed By: #### C BCDIF, BMP ####[facility] [place], [place] [phone] WBC (Bld) [#/Vol] 16.68 10*3/uL High 3.70-11.00 [facility] Comment on above: Performed By: #### C BCDIF, BMP ####[facility] [place], [place] [phone] PROGRESSon 12-24-2018 PROGRESS HNO ID: [id number] Author: Clarence (Breana) Roxana Service: Urology Author Type: Resident Type: Progress Notes Filed: 12/24/2018 10:00 AM Note Text: [facility] UROLOGY PROGRESS NOTE Name: Clarence Flores Bed: [id number]/[id number] Date: December 24, 2018 After Hours [facility] Urology Service Pager: [phone] ASSESSMENT AND PLAN Clarence Flores is a [...] Imaging n/a Clarence Schmidt MD Personal Pager: [phone] For weekend or after hours issues [place] [phone] Normal [facility] Basic Metabolic Panlon 12-23 Anion gap [Moles/Vol] 14 mmol/L Normal - [facility] Comment on above: Performed By: #### C BCDIF, BMP ####[facility], [place] [phone] Calcium [Mass/Vol] 8.7 mg/dL Normal 8.5-10.[address] [facility] Comment on above: Performed By: #### C BCDIF, BMP ####[place] [address], [place] [phone] Chloride [Moles/Vol] 102 mmol/L Normal 97-105 [facility] Comment on above: Performed By: #### C BCDIF, BMP ####[place] [address] [place] [phone] CO2 [Moles/Vol] 21 mmol/L Low 22-30 [facility] Comment on above: Performed By: #### C BCKATLYNF, BMP ####[place] [address], [place] [phone] Creatinine [Mass/Vol] 1.31 mg/dL High 0.73-1.22 [facility] Comment on above: Performed By: #### Pablo BCKATLYNF, BMP ####[place] [address], [place] [phone] eGFR- Amer. >[address] [facility] Comment on above: Performed By: #### C BCDIF, BMP ####[place] [address], [place] [phone] GFR/1.73 sq M predicted among non-blacks MDRD (S/P/Bld) [Vol rate/Area] 57 . Normal [facility] Comment on above: Result Comment: eGFR (Estimated [...] actual GFR. Performed By: #### NIRALI MCKEON ####[facility] [place], [place] [phone] Glucose [Mass/Vol] 121 mg/dL High 74-[address] [facility] Comment on above: Result Comment: The [place] Diabetes [employer] (ADA) provides guidance for cutoff [...] Standards of Medical Care in Diabetes 2016, [place] [employer]. Diabetes Care. 2016.39(Suppl 1). Performed By: #### NIRALI MCKEON ####[facility] [place] [address] [phone] Potassium [Moles/Vol] 4.0 mmol/L Normal 3.7-5.1 [facility] Comment on above: Performed By: #### NIRALI MCKEON ####[facility] [place], [place] [phone] Sodium [Moles/Vol] 137 mmol/L Normal 136-[address] [facility] Comment on above: Performed By: #### NIRALI MCKEON ####[facility] [place], [place] [phone] Urea nitrogen [Mass/Vol] 11 mg/dL Normal 9-24 [facility] Comment on above: Performed By: #### NIRALI MCKEON ####[facility] [place], [place] [phone] CASE MGT INIT Sid 2018 CASE MGT INIT ROSARIO HNO ID: [id number] Author: Cornelius Diaz (Sw) Service: Care Management Author Type: Academic Director Type: Care Mgt Initial Assessment Filed: 12/23/2018 4:27 PM Note Text: CARE MANAGEMENT: ASSESSMENT AND DISCHARGE PLAN SERVICE DATE: 12/23/2018 SERVICE TIME: 4:24 PM PRIMARY CARE PHYSICIAN: Stalin Beach MD ADMISSION STATUS: Observation Needs Prior to Discharge: None;Ready for Discharge 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 No Advance Directive: Current Advance Directive: Health Care Power of Manager Environmental Health In Chart: Yes Up To Date and [...] None Has the Patient Been in a Care Home Facility in the Past 30 days? No SOCIAL: Living Arrangement: Home Lives With: Son Financial Resources: Employed: [employer] Primary Contact: Extended Emergency Contact Information Primary [...] 0 I feel financially burdened by my rxh-pc-zuphqd expenses for my prescription medication: Disagree completely [...] 2018 TIME: 4:24 PM PAGER/CONTACT #: Normal [facility] CBC and Differentialon 12-23 Abs Baso 0.03 k/uL Normal <0.11 [facility] Comment on above: Performed By: #### C NIRALI VINSON ####[place] [address] [place], [place] [phone] Abs [place] 1.36 k/uL High <0.87 [facility] Comment on above: Performed By: #### Pablo VINSON BMP ####[facility] [address], [place] [phone] Abs Neut 16.73 k/uL High 1.45-7.50 [facility] Comment on above: Performed By: #### NIRALI MCKEON ####[place] [address] [place], [place] [phone] Absolute nRBC <0.01 Normal <0.01 [facility] Comment on above: Performed By: #### C BCNIRALI RICE ####[place] [address] [place], [place] [phone] Basophils/100 WBC (Bld) 0.2 % Normal [facility] Comment on above: Performed By: #### C KAREL BMP ####[place] [address], [place] [phone] DTYPE Auto Diff Normal [facility] Comment on above: Performed By: #### C KAREL, BMP ####[place] [address] [place] [phone] Eosinophils (Bld) [#/Vol] 10*3/uL Normal <0.46 [facility] Comment on above: Performed By: #### C KAREL, BMP ####[place] [address] [place] [phone] Eosinophils/100 WBC (Bld) 0.0 % Normal [facility] Comment on above: Performed By: #### C BCKRYSTAL, BMP ####[place] [address] [place] [phone] Erythrocyte distribution width (RBC) [Ratio] 13.3 % Normal 11.5-15.0 [facility] Comment on above: Performed By: #### C BCKRYSTAL, BMP ####[place] [address] [place] [phone] Hematocrit (Bld) [Volume fraction] 46.4 % Normal 39.0-51.0 [facility] Comment on above: Performed By: #### C BCDIF, BMP ####[place] [address] [place] [phone] Hemoglobin (Bld) [Mass/Vol] 15.3 g/dL Normal 13.0-17.0 [facility] Comment on above: Performed By: #### C BCDIF, BMP ####[place] [address] [place] [phone] Lymphocytes (Bld) [#/Vol] 0.94 10*3/uL Low 1.00-4.00 [facility] Comment on above: Performed By: #### C BCDIF, BMP ####[place] [address], [place] [phone] Lymphocytes/100 WBC (Bld) 4.9 % Normal [facility] Comment on above: Performed By: #### C BCDIF, BMP ####[place] [address] [place] [phone] MCH (RBC) [Entitic mass] 28.2 pG Normal 26.0-34.0 [facility] Comment on above: Performed By: #### C BCDIF, BMP ####[place] [address], [place] [phone] MCHC (RBC) [Mass/Vol] 33.0 g/dL Normal 30.5-36.0 [facility] Comment on above: Performed By: #### C BCDIF, BMP ####[place] [address], [place] [phone] MCV (RBC) [Entitic vol] 85.5 fL Normal 80.0-100.0 [facility] Comment on above: Performed By: #### C BCDIF, BMP ####[place] [address], [place] [phone] Monocytes/100 WBC (Bld) 7.1 % Normal [facility] Comment on above: Performed By: #### C BCDIF, BMP ####[place] [address], [place] [phone] Neutrophils/100 WBC (Bld) 87.8 % Normal [facility] Comment on above: Performed By: #### C BCDIF, BMP ####[place] [address], [place] [phone] NRBCs 0.0 /100 WBC Normal 0 [facility] Comment on above: Performed By: #### C BCDIF, BMP ####[facility] [address], [place] [phone] Platelet mean volume (Bld) [Entitic vol] 9.5 fL Normal 9.0-12.7 [facility] Comment on above: Performed By: #### C BCDIF, BMP ####[facility], [place] [phone] Platelets (Bld) [#/Vol] 315 10*3/uL Normal 150-400 [facility] Comment on above: Performed By: #### C BCDIF, BMP ####[place] [address], [place] [phone] RBC (Bld) [#/Vol] 5.43 10*6/uL Normal 4.20-6.00 [facility] Comment on above: Performed By: #### C BCDIF, BMP ####[place] [address], [place] [phone] WBC (Bld) [#/Vol] 19.06 10*3/uL High 3.70-11.00 [facility] Comment on above: Performed By: #### C BCDIF, BMP ####[facility] [place], [place] [phone] PROGRESSon 12-23-2018 PROGRESS HNO ID: [id number] Author: Clarence (Breana) Roxana Service: Urology Author Type: Resident Type: Progress Notes Filed: 12/23/2018 8:40 AM Note Text: [facility] UROLOGY PROGRESS NOTE Name: Clarence Flores Bed: [id number]/[id number] Date: December 23, 2018 After Hours [facility] Urology Service Pager: [phone] ASSESSMENT AND PLAN Clarence Flores is a [...] Imaging n/a Clarence Schmidt MD Personal Pager: [phone] For weekend or after hours issues [place] [phone] Normal [facility] ANES Ferny 12-22-2018 ANES POST HNO ID: [id number] Author: Salavtore Lacey Service: Anesthesiology Author Type: Anesthesiologist Type: [...] 22, 2018 TIME: 12:16 PM PAGER/CONTACT #: [phone] Normal [facility] Basic Metabolic Panlon 12-22 Anion gap [Moles/Vol] 10 mmol/L Normal 9-18 [facility] Comment on above: Performed By: #### C BCDIF, BMP ####[place] [address], [place] [phone] Calcium [Mass/Vol] 8.0 mg/dL Low 8.5-10.[address] [facility] Comment on above: Performed By: #### C BCDIF, BMP ####[place] [address], [place] [phone] Chloride [Moles/Vol] 105 mmol/L Normal 97-105 [facility] Comment on above: Performed By: #### C BCDIF, BMP ####[place] [address] [place] [phone] CO2 [Moles/Vol] 23 mmol/L Normal 22-30 [facility] Comment on above: Performed By: #### C BCKATLYNF, BMP ####[place] [address], [place] [phone] Creatinine [Mass/Vol] 1.17 mg/dL Normal 0.73-1.22 [facility] Comment on above: Performed By: #### Pablo BCKATLYNF, BMP ####[place] [address], [place] [phone] eGFR- Amer. >[address] [facility] Comment on above: Performed By: #### C BCDIF, BMP ####[place] [address], [place] [phone] GFR/1.73 sq M predicted among non-blacks MDRD (S/P/Bld) [Vol rate/Area] mL/min/{1.73_m2} Normal [facility] Comment on above: Result Comment: eGFR (Estimated [...] GFR. Performed By: #### C KAREL, BMP ####[facility], [place] [phone] Glucose [Mass/Vol] 168 mg/dL High 74-[address] [facility] Comment on above: Result Comment: The [place] [employer] (ADA) provides guidance for cutoff [...] Standards of Medical Care in Diabetes 2016, [place] [employer]. Diabetes Care. 2016.39(Suppl 1). Performed By: #### C NIRALI VINSON ####[facility] [place], [place] [phone] Potassium [Moles/Vol] 5.5 mmol/L High 3.7-5.1 [facility] Comment on above: Result Comment: Resu lts may be falsely increased due to interference by hemolysis. Suggest reorder as clinically indicated. Performed By: #### C KAREL, BMP ####[facility] [place], [place] [phone] Sodium [Moles/Vol] 138 mmol/L Normal 136-[address] [facility] Comment on above: Performed By: #### C KAREL, BMP ####[facility] [place], [place] [phone] Urea nitrogen [Mass/Vol] 9 mg/dL Normal 9-24 [facility] Comment on above: Performed By: #### C BCDIF, BMP ####[facility]ClevelFair[place], [place] [phone] CBC and Differentialon 12-22 Abs Baso 0.07 k/uL Normal <0.11 [facility] Comment on above: Performed By: #### C BCDIF, BMP ####[place] [address]ClevelTerri [place] [phone] Abs [place] 0.89 k/uL High <0.87 [facility] Comment on above: Performed By: #### C BCDIF, BMP ####[place] [address] [place] [phone] Abs Neut 13.53 k/uL High 1.45-7.50 [facility] Comment on above: Performed By: #### C BCDIF, BMP ####[place] [address] [place] [phone] Absolute nRBC <0.01 Normal <0.01 [facility] Comment on above: Performed By: #### C BCDIF, BMP ####[place] [address] [place] [phone] Basophils/100 WBC (Bld) 0.4 % Normal [facility] Comment on above: Performed By: #### C BCDIF, BMP ####[place] [address] [place] [phone] DTYPE Auto Diff Normal [facility] Comment on above: Performed By: #### C BCDIF, BMP ####[place] [address]ClevelTer[address] [place] [phone] Eosinophils (Bld) [#/Vol] 0.06 10*3/uL Normal <0.46 [facility] Comment on above: Performed By: #### C BCDIF, BMP ####[place] [address] [place] [phone] Eosinophils/100 WBC (Bld) 0.4 % Normal [facility] Comment on above: Performed By: #### C BCDIF, BMP ####[place] [address], [place] [phone] Erythrocyte distribution width (RBC) [Ratio] 13.6 % Normal 11.5-15.0 [facility] [facility] Comment on above: Performed By: #### C BCDIF, BMP ####[place] [address] [place] [phone] Hematocrit (Bld) [Volume fraction] 46.4 % Normal 39.0-51.0 [facility] Comment on above: Performed By: #### C BCDIF, BMP ####[place] [address], [place] [phone] Hemoglobin (Bld) [Mass/Vol] 15.4 g/dL Normal 13.0-17.0 [facility] Comment on above: Performed By: #### C BCDIF, BMP ####[place] [address] [phone] Lymphocytes (Bld) [#/Vol] 1.09 10*3/uL Normal 1.00-4.00 [facility] Comment on above: Performed By: #### C BCDIF, BMP ####[place] [address] [phone] Lymphocytes/100 WBC (Bld) 7.0 % Normal [facility] Comment on above: Performed By: #### C BCDIF, BMP ####[place] [address], [place] [phone] MCH (RBC) [Entitic mass] 28.7 pG Normal 26.0-34.0 [facility] Comment on above: Performed By: #### C BCDIF, BMP ####[place] [address] [phone] MCHC (RBC) [Mass/Vol] 33.2 g/dL Normal 30.5-36.0 [facility] Comment on above: Performed By: #### C BCKRYSTAL, BMP ####[place] [address], [place] [phone] MCV (RBC) [Entitic vol] 86.4 fL Normal 80.0-100.0 [facility] Comment on above: Performed By: #### C BCKRYSTAL, BMP ####[place] [address], [place] [phone] Monocytes/100 WBC (Bld) 5.7 % Normal [facility] Comment on above: Performed By: #### C BCKRYSTAL, BMP ####[place] [address], [place] [phone] Neutrophils/100 WBC (Bld) 86.5 % Normal [facility] Comment on above: Performed By: #### C BCKRYSTAL, BMP ####[place] [address], [place] [phone] NRBCs 0.0 /100 WBC Normal 0 [facility] Comment on above: Performed By: #### C BCKRYSTAL, BMP ####[place] [address], [place] [phone] Platelet mean volume (Bld) [Entitic vol] 9.8 fL Normal 9.0-12.7 [facility] Comment on above: Performed By: #### C BCDIF, BMP ####[place] [address], [place] [phone] Platelets (Bld) [#/Vol] 263 10*3/uL Normal 150-400 [facility] Comment on above: Performed By: #### C BCDIF, BMP ####[place] [address], [place] [phone] RBC (Bld) [#/Vol] 5.37 10*6/uL Normal 4.20-6.00 [facility] Comment on above: Performed By: #### C BCDIF, BMP ####[facility] [address] [place], [place] [phone] WBC (Bld) [#/Vol] 15.64 10*3/uL High 3.70-11.00 [facility] Comment on above: Performed By: #### C BCDIF, BMP ####[facility] [address] [place], [place] [phone] CNCOon 12-22-2018 CNCO Letter Text Normal [facility] NURSING PROGon 12-22-2018 NURSING PROG HNO ID: [id number] Author: Yoly Eugene) Neal RN Service: Nursing [...] Jesus RN MSN In Department: HOSP [facility] Normal [facility] OPERATIVE NOon 12-22-2018 OPERATIVE NO HNO ID: [id number] Author: Cyrus Justice Service: Urology Author Type: Resident Type: Operative Report Filed: 12/22/2018 11:07 AM Note Text: -- Attestation signed by Maico Ang at 12/22/2018 11:58 AM . -- OPERATIVE/PROCEDURE REPORT LOG ID: [id number] Surgery/Procedure Date: 12/22/2018 Incision/Procedure Start Time: 8:19 AM Incision Close/Procedure End Time: 10:48 AM Surgeon(s)/Proceduralist(s ) and Beauty Operator(s): Surgeon(s) and Role: * Maico Ang - [...] 8-mm robotic ports and one 12-mm airseal production assistant port were placed. The robot was then [...] under vision. We then extended our 12mm production assistant port site cephalad and extracted our specimen through this. We then mobilized his umbilical hernia sac. Herniated mesentery was delivered out of the hernia sac and sac dissected completely free off the skin. The fascia was then closed using interrupted [id number] 0-prolene sutures. 3-0 vicryl was used to [...] 1.left renal neoplasm Tissue Kidney taken by [facility] Routine 2.hernia sac Tissue taken by [facility] Routine Implantable Devices: None Drains: 10-flat SHELBY drain and jacques catheter (18-bulgarian coude with 10cc balloon) Complications: None Accidental [...] 22, 2018 TIME: 10:48 AM PAGER/CONTACT #: [phone] [facility] PROGRESSon 12-22-2018 PROGRESS HNO ID: [id number] Author: Clarence Schmidt Service: Urology Author Type: Resident Type: Progress Notes Filed: 12/22/2018 4:14 PM Note Text: [facility] UROLOGY PROGRESS NOTE Name: Clarence Flores Bed: G090 [id number]/[id number] Date: December 22, 2018 After Hours [facility] [place] [facility] Service Pager: [phone] ASSESSMENT AND PLAN Clarence Flores is a [...] Imaging n/a Clarence Schmidt MD Personal Pager: [phone] For weekend or after hours issues [place] [phone] [facility] PROGRESS HNO ID: [id number] Author: Valeria (Rn) FIORELLA Moreno Service: ? Author Type: Registered Nurse Type: Progress Notes Filed: 12/22/2018 2:26 PM Note Text: Admission/Transfer Note PATIENT NAME: Clarence Flores Patient admitted from PACU via stretcher in stable condition. Actions taken: Patient oriented to room, call light function, prescribed activities, Patient rights and Quiet at night. This note was completed by: Valeria Moreno RN [facility] Potassiumon 12-22-2018 Potassium [Moles/Vol] 4.2 mmol/L Normal 3.7-5.1 [facility] Comment on above: Performed By: #### K 1 ####[facility] [address] [place], [place] [phone] SURGICAL PATHOLOGYon 019 SURGICAL PATHOLOGY Specimen originated from [facility] Specimen #: [id number] Submitting Physician: MAICO ANG (Q10) FINAL DIAGNOSIS [...] Pathologic Findings in Nonneoplastic Kidney: Insufficient tissue Receptionist Airline Lounge Tumor Block: Specify: A1 ---- Meño Hamilton [...] appear to extend beyond the capsular surface. Receptionist Airline Lounge sections are submitted as follows: A1-A3 mass with renal sinus/parenchymal margin, A4-A5 mass with capsular surface. WE/glw 12/22/2018 B. Received fresh labeled hernia sac is a segment of cote pink fibromembranous soft tissue measuring 4.7 x 1.9 x 0.6 cm. No nodularity or induration is identified. Receptionist Airline Lounge sections are submitted in formalin in cassette B1. VINICIO/rw 12/22/2018 Gross examination performed at [facility], [address] [place] [address] Date of Report: 12/24/2018 Date of Procedure: 12/22/2018 Date of Receipt: 12/22/2018 Submitted by: MAICO ANG (Q10) Location: G90 Diagnostic interpretation performed at [facility], [address] [place] [address]. CLIA Number: [id number] Normal [facility] APTTon 12-17-2018 aPTT Coag (Bld) [Time] 28.8 s Normal 23.0-32.4 [facility] Comment on above: Result Comment: Unfr [...] laboratory APTT reagent in use throughout the [facility]. Performed By: #### P T, PTT, CBC, CMP #### [place] [address] CBCon 12-17-2018 Absolute nRBC <0.01 Normal <0.01 [facility] Comment on above: Performed By: #### P T, PTT, CBC, CMP #### [place] [address] Erythrocyte distribution width (RBC) [Ratio] 13.2 % Normal 11.5-15.0 [facility] Comment on above: Performed By: #### P T, PTT, CBC, CMP #### [place] [id number] Hematocrit (Bld) [Volume fraction] 46.7 % Normal 39.0-51.0 [facility] Comment on above: Performed By: #### P T, PTT, CBC, CMP #### [address] [place], [place] [address] Hemoglobin (Bld) [Mass/Vol] 15.7 g/dL Normal 13.0-17.0 [facility] Comment on above: Performed By: #### P T, PTT, CBC, CMP #### [address] [address] MCH (RBC) [Entitic mass] 28.6 pG Normal 26.0-34.0 [facility] Comment on above: Performed By: #### P T, PTT, CBC, CMP #### [address] [address] MCHC (RBC) [Mass/Vol] 33.6 g/dL Normal 30.5-36.0 [facility] Comment on above: Performed By: #### P T, PTT, CBC, CMP #### [address] [address] MCV (RBC) [Entitic vol] 85.2 fL Normal 80.0-100.0 [facility] Comment on above: Performed By: #### P T, PTT, CBC, CMP #### [address] [address] Platelet mean volume (Bld) [Entitic vol] 9.9 fL Normal 9.0-12.7 [facility] Comment on above: Performed By: #### P T, PTT, CBC, CMP #### [address] [address] Platelets (Bld) [#/Vol] 322 10*3/uL Normal 150-400 [facility] Comment on above: Performed By: #### P T, PTT, CBC, CMP #### [address] [address] RBC (Bld) [#/Vol] 5.48 10*6/uL Normal 4.20-6.00 [facility] Comment on above: Performed By: #### P T, PTT, CBC, CMP #### [facility] [employer] [address] [place], [place] [address] WBC (Bld) [#/Vol] 9.33 10*3/uL Normal 3.70-11.00 [facility] Comment on above: Performed By: #### P T, PTT, CBC, CMP #### [facility] [employer] [address] [place], [place] [address] CNOVon 12-17-2018 CNOV Office Visit (PSSCMN ) -- CLARENCE FLORES ([id number]) 1960 M Date Time Provider Department 12/17/18 12:00 PM [facility] PSSCMN During your visit today, [...] PAGER/CONTACT #: addendum labs and ekg to [facility]; Aimee Romero RN Lab Value Units Date [...] 8:41:34 AM ? Referring Provider: MAICO ANG [[id number]] Allergies As of Date: 12/17/2018 Noted Allergy [...] Chart Close Cosign Accepted by: PERCY BERTRAND MD[[id number]] Chart Close Cosign Accepted on: FriDec 17, 2018 12:54 PM Normal [facility] CNOV Office Visit (UROLMN ) -- CLARENCE FLORES ([id number]) 1960 M Date Time Provider Department 12/17/18 9:15 AM JESSICA HERRERA (DATA MANAGEMENT ANALYST) UROLMN During your visit today, we recorded the following information about you: Pulse Blood pressure Weight Height 64/minute 169/96 119.8 kg 1.676 m Jessica Herrera CNP 12/17/2018 9:57 AM Signed UROLOGY SURGICAL HANDP SERVICE DATE: 12/17/2018 REFERRING PROVIDER: Maico Ang MD [address] [facility] [address] PCP: Stalin Beach MD GENDER: SUBJECTIVE CHIEF [...] or problems. No history of angina, CHF, [place], cardiac surgery of stents. +history of HTN [...] problems. Neurologic: No history of TIA's, stroke, NIGHT COURT MAGISTRATE tumor, impaired sensorium, hemiplegia, paraplegia or quadriplegia. [...] 16, 2018 TIME: 12:38 PM PAGER/CONTACT #: [facility] PRE-OP NOTE Clarence Flores is a 58 year old male. Pre-op Date: December 16, 2018 Date of Procedure: 12/22/2018 Procedure/Surgery: Robotic L partial Nx Diagnosis: L renal mass Primary Surgeon: MD Allie, [facility] Healthquest Score: tbd BP 169/96 (BP Site: [...] CNP Electronically signed Referring Provider: MAICO ANG [[id number]] Allergies As of Date: 12/17/2018 Noted Allergy [...] by JESSICA HERRERA CNP on 12/17/[address] [facility] Metabolic Panelon 12-17 Albumin [Mass/Vol] 4.3 g/dL Normal 3.9-4.[address] [facility] Comment on above: Performed By: #### P T, PTT, CBC, CMP ####[place] [address] [place], [place] [phone] ALP [Catalytic activity/Vol] 56 U/L Normal 38-113 [facility] Comment on above: Performed By: #### P T, PTT, CBC, CMP ####[address] [phone] ALT [Catalytic activity/Vol] 22 U/L Normal 10-54 [facility] Comment on above: Performed By: #### P T, PTT, CBC, CMP ####[place] [address] [place], [place] [phone] Anion gap [Moles/Vol] 13 mmol/L Normal 9-18 [facility] Comment on above: Performed By: #### P T, PTT, CBC, CMP ####[place] [address], [place] [phone] AST [Catalytic activity/Vol] 25 U/L Normal 14-40 [facility] Comment on above: Performed By: #### P T, PTT, CBC, CMP ####[address] [phone] Bilirubin [Mass/Vol] 0.4 mg/dL Normal 0.2-1.3 [facility] Comment on above: Performed By: #### P T, PTT, CBC, CMP ####[place] [address], [place] [phone] Calcium [Mass/Vol] 9.3 mg/dL Normal 8.5-10.[address] [facility] Comment on above: Performed By: #### P T, PTT, CBC, CMP ####[place] [address], [place] [phone] Chloride [Moles/Vol] 105 mmol/L Normal 97-105 [facility] Comment on above: Performed By: #### P T, PTT, CBC, CMP ####[facility], [place] [phone] CO2 [Moles/Vol] 21 mmol/L Low 22-30 [facility] Comment on above: Performed By: #### P T, PTT, CBC, CMP ####[place] [address], [place] [phone] Creatinine [Mass/Vol] 1.20 mg/dL Normal 0.73-1.22 [facility] Comment on above: Performed By: #### P T, PTT, CBC, CMP ####[place] [address], [place] [phone] eGFR- Amer. >[address] [facility] Comment on above: Performed By: #### P T, PTT, CBC, CMP ####[place] [address], [place] [phone] GFR/1.73 sq M predicted among non-blacks MDRD (S/P/Bld) [Vol rate/Area] mL/min/{1.73_m2} Normal [facility] Comment on above: Result Comment: eGFR (Estimated [...] By: #### P T, PTT, CBC, CMP ####[facility] [place], [place] [phone] Glucose [Mass/Vol] 105 mg/dL High 74-[address] [facility] Comment on above: Result Comment: The [place] [employer] (ADA) provides guidance for cutoff [...] Standards of Medical Care in Diabetes 2016, [place] [employer]. Diabetes Care. 2016.39(Suppl 1). Performed By: #### P T, PTT, CBC, CMP ####[facility] [place] [address] [phone] Potassium [Moles/Vol] 4.0 mmol/L Normal 3.7-5.1 [facility] Comment on above: Performed By: #### P T, PTT, CBC, CMP ####[facility] [place] [address] [phone] Protein [Mass/Vol] 7.1 g/dL Normal 6.3-8.[address] [facility] Comment on above: Performed By: #### P T, PTT, CBC, CMP ####[facility], [place] [phone] Sodium [Moles/Vol] 139 mmol/L Normal 136-[address] [facility] Comment on above: Performed By: #### P T, PTT, CBC, CMP ####[facility] [place], [place] [phone] Urea nitrogen [Mass/Vol] 13 mg/dL Normal 9-24 [facility] Comment on above: Performed By: #### P T, PTT, CBC, CMP ####[place] [address] [place], [place] [phone] Confirm Blood Typeon 019 ABO/RH(D) Positive Normal [facility] Comment on above: Performed By: #### C ONABO ####[facility] [address] [place], [place] [phone] ECG COMPLETEon 12-17-2018 ECG COMPLETE NAME : CLARENCE FLORES PID : [id number] : 1960 Gender : Male Race : ORD : [id number] Procedure Date : Dec 17 2018 10:39:05 Edit Date : Dec 18 2018 08:41:40 Diagnosis:NORMAL SINUS RHYTHM NORMAL ECG Confirmed by TARIQ DRUMMOND MD ([id number]) on 12/18/2018 8:41:34 AM Ventricular Rate : 63 BPM Atrial Rate : 63 BPM P-R Interval : 160 ms QRS Duration : 94 ms Q-T Interval : 420 ms QTC Calculation(Bazett) : 429 ms P Sag[place] : 36 degrees R [place] : 69 degrees T [place]ore : 80 degrees Test Reason : Location : 119 : A17 A17 Overread By : TARIQ DRUMMOND MD Edited By : TARIQ DRUMMOND MD Referred By : MAICO ANG Acquired by : PARIS ESTEVES [facility] PROGRESSon 12-17-2018 PROGRESS HNO ID: [id number] Author: Aimee Richards (Rn) Linda Service: ? [...] (65) on 12/18/2018 8:41:34 AM ? Normal [facility] Protimeon 12-17-2018 PT Coag (PPP) [Time] 10.8 s Normal 9.7-13.0 [facility] Comment on above: Performed By: #### P T, PTT, CBC, CMP #### [facility] [address] [place], [place] [address] PT Coag (PPP) [Time] 1.0 s Normal 0.9-1.3 [facility] Comment on above: Result Comment: Tyra min K Antagonist (VKA) Therapeutic Range: INR 2 to 3 (Target INR of 2.5) Note: For patients treated with VKA drugs, such as warfarin, the [place] [employer] 2012 Guideline recommends [...] #### P T, PTT, CBC, CMP #### [facility] [address] [place], [place] [address] Type and SCR (30D)on 019 ABO/RH(D) Positive Normal [facility] Comment on above: Performed By: #### T SCR30 ####[facility] [place], [place] [phone] CNPTOUTREACHon 12-16-2018 CNPTOUTREACH Patient Outreach (UR OLMN) -- CLARENCE FLORES ([id number]) 1960 M Date Time Provider Department 12/16/18 JESSICA HERRERA (DATA MANAGEMENT ANALYST) UROLMN During your visit today, we recorded the following information about you: Allergies As of Date: 12/16/2018 Noted Allergy Reaction NITROGLYCERIN 11/26/2018 14 - Other: See Comments Date Reviewed: 11/26/2018 Reviewed by: Monica Shah - Fully Assessed Visit Diagnosis:Screening for genitourinary condition [Z13.89] Order(s):UA CHEMSTRIP ONLY [SQUA] Order #: [id number] Prescriptions as of 12/16/2018 Sig: OXYCODONE 5 [...] Left renal mass [N28.89] Encounter Status:Closed by [facility], PRODUSER on 12/31/18 Normal [facility] HISTORY PHYSICALon 9 HISTORY PHYSICAL HNO ID: [id number] Author: Jessica Ruiz) Summer Service: ? Author Type: Nurse Practitioner Type: HANDP Filed: 12/17/2018 9:57 AM Note Text: UROLOGY SURGICAL HANDP SERVICE DATE: 12/17/2018 REFERRING PROVIDER: Maico Ang MD [address] [facility] [address] PCP: Stalin Beach MD GENDER: SUBJECTIVE CHIEF [...] or problems. No history of angina, CHF, [place], cardiac surgery of stents. +history of HTN [...] problems. Neurologic: No history of TIA's, stroke, NIGHT COURT MAGISTRATE tumor, impaired sensorium, hemiplegia, paraplegia or quadriplegia. [...] 16, 2018 TIME: 12:38 PM PAGER/CONTACT #: [facility] PRE-OP NOTE Clarence Flores is a 58 year old male. Pre-op Date: December 16, 2018 Date of Procedure: 12/22/2018 Procedure/Surgery: Robotic L partial Nx Diagnosis: L renal mass Primary Surgeon: MD Allie, [facility] Healthquest Score: tbd BP 169/96 (BP Site: [...] EKG. Jessica Herrera CNP Electronically signed Normal [facility] CNOVon 11-26-2018 CNOV Office Visit (UROLMN ) -- CLARENCE FLORES ([id number]) 1960 M Date Time Provider Department 11/26/18 9:00 AM MAICO ANG During your visit today, we recorded the following information about you: Pulse Blood pressure Weight Height 67/minute 165/98 118 kg 1.676 m Maico Ang MD 11/29/2018 6:01 AM Signed [facility] NEW PATIENT HISTORY AND PHYSICAL EXAM PATIENT INFO: Clarence Flores 58 year old REFERRING M.D.: Damien Sales MD [address] [place] [address] CHIEF COMPLAINT: left renal mass 58 y/o [...] file Gets together: Not on file Attends muslim service: Not on file Active member of [...] PLAN: Per Staff Benton Dillon PA-C Pager [phone] Office [phone] I saw and evaluated the patient; the history and exam were reviewed with the PA/resident and confirmed by me; and the plan is outlined below. healthy 58 yr obese male with L lower pole [address] reviewed DW pt and family rec attempt RPNx they agree to proceed, will schedule Maico Ang MD Referring Provider: DAMIEN SALES [[id number]] Allergies As of Date: 11/26/2018 Noted Allergy [...] Status:Closed by MAICO ANG MD on 11/29/18 [facility] 11-26-2018 [facility] Patient:Clarence Flores MRN: Height:5' 6 [...] 46.7 % 12/17/2018 51.0 39.0 Progress Notes ([facility]): Aimee Romero RN 12/21/2018 9:03 [...] PAGER/CONTACT #: addendum labs and ekg to [facility]; Aimee Romero RN Lab Value Units Date [...] Maico Ang MD 11/29/2018 6:01 AM Signed [facility] NEW PATIENT HISTORY AND PHYSICAL EXAM PATIENT INFO: Clarence Flores 58 year old REFERRING M.D.: Damien Sales MD [address] [place] [place] [address] CHIEF COMPLAINT: left renal mass 58 y/o [...] file Gets together: Not on file Attends muslim service: Not on file Active member of [...] PLAN: Per Staff Benton Dillon PA-C Pager [phone] Office [phone] I saw and evaluated the patient; the history and exam were reviewed with the PA/resident and confirmed by me; and the plan is outlined below. healthy 58 yr obese male with L lower pole [address] reviewed DW pt and family rec attempt RPNx they agree to proceed, will schedule Maico Ang MD Previous Version Normal [facility] PROGRESSon 11-26-2018 PROGRESS HNO ID: [id number] Author: Maico Ang Service: ? Author Type: Physician Type: Progress Notes Filed: 11/29/2018 6:01 AM Note Text: [facility] NEW PATIENT HISTORY AND PHYSICAL EXAM PATIENT INFO: Clarence Mark 58 year old REFERRING M.D.: Damien Sales MD [address] [place] [address] CHIEF COMPLAINT: left renal mass 58 y/o [...] file Gets together: Not on file Attends muslim service: Not on file Active member of [...] PLAN: Per Staff Benton Dillon PA-C Pager [phone] Office [phone] I saw and evaluated the patient; the history and exam were reviewed with the PA/resident and confirmed by me; and the plan is outlined below. healthy 58 yr obese male with L lower pole [address] reviewed DW pt and family rec attempt RPNx they agree to proceed, will schedule Maico Ang MD Normal [facility] Reminderson 11-23-2018 Reminders - From: Jackie Lundberg To: EU - Clinical; Sent: 11/17/2018 14:19:41 EDT Show up: 11/20/2018 08:00:00 EDT Subject: ct scan and PSA f/t Due Date/Time: 11/23/2018 14:19:00 EDT Reminder/Recall SHOW PW results of Ct scan of chest with contrast and PSA free and total done 11/20/18 at [facility] PT TO BE CALLED WITH RESULTS 11/20/18- [facility]- Ct scan of chest with contrast, PSA [...] in our office at this time. Normal [facility] OT-CT CHEST W CON IMPORTon 1 OT-CT CHEST W CON IMPORT Images were obtained outside of [facility] [id number] Normal [facility] OT-CT ABDOMEN WO/W CON IMPOR Ton 11-05-2018 OT-CT ABDOMEN WO/W CON IMPORT Images were obtained outside of [facility] [id number] Normal [facility] CT-CT ABD/PELVIS WO CON IMPO RTon 10-05-2018 CT-CT ABD/PELVIS WO CON IMPORT Images were obtained outside of [facility] [id number] Normal [facility] Vital Signs Date Time Vital Sign Value Performing Clinician Facility 04-23-2023 15:37-0400 Body mass index (BMI) [Ratio] 40.84 kg/m2 Andra Ramirez AIRSET CASTER-DATA MANAGEMENT ANALYST Work Phone: [facility] 04-23-2023 15:37-0400 Body weight 114.76 kg Andra Ramirez AIRSET CASTER-DATA MANAGEMENT ANALYST Work Phone: [facility] 04-23-2023 15:37-0400 Diastolic blood pressure 70 mm[Hg] Andra Ramirez AIRSET CASTER-DATA MANAGEMENT ANALYST Work Phone: [facility] 04-23-2023 15:37-0400 Heart rate 82 /min Andra Ramirez AIRSET CASTER-DATA MANAGEMENT ANALYST Work Phone: [facility] 04-23-2023 15:37-0400 Systolic blood pressure 112 mm[Hg] Andra Ramirez AIRSET CASTER-DATA MANAGEMENT ANALYST Work Phone: [facility] 01-22-2023 15:36-0500 Body height 167.6 cm Andra Ramirez AIRSET CASTER-DATA MANAGEMENT ANALYST Work Phone: [facility] 01-22-2023 15:36-0500 Body mass index (BMI) [Ratio] 44.87 kg/m2 Andra Ramirez AIRSET CASTER-DATA MANAGEMENT ANALYST Work Phone: [facility] 01-22-2023 15:36-0500 Body weight 126.1 kg Andra Ramirez AIRSET CASTER-DATA MANAGEMENT ANALYST Work Phone: [facility] 01-22-2023 15:36-0500 Diastolic blood pressure 98 mm[Hg] Andra Ramirez AIRSET CASTER-DATA MANAGEMENT ANALYST Work Phone: [facility] 01-22-2023 15:36-0500 Heart rate 76 /min Andra Ramirez AIRSET CASTER-DATA MANAGEMENT ANALYST Work Phone: [facility] 01-22-2023 15:36-0500 Systolic blood pressure 168 mm[Hg] Andra Ramirez AIRSET CASTER-DATA MANAGEMENT ANALYST Work Phone: [facility] 2022 04:47-0400 Diastolic blood pressure 67 [...] Office outpatient visit 10 minutes Andra Ramirez AIRSET CASTERBrainSINS Work Phone: [facility] Comment on above: BMI 40.0-44.9, adult ([facility]) (Primary Dx); Essential hypertension Start: 01-22-2023 End: 01-22-2023 Office outpatient visit 15 minutes Andra Ramirez [employer] CA[employer]BrainSINS Work Phone: [facility] Comment on above: Essential hypertensi on (Primary Dx); Chest pain, unspecified type; Obstructive sleep apnea; Diabetes mellitus type II, non insulin dependent ([facility]); Hypertensive left ventricular hypertrophy, without heart failure; BMI 40.0-44.9, adult ([facility]/HCC) Start: 12-16-2022 End: 12-16-2022 Subsequent hospital visit by physician Gema Richard Stress Room 1 [facility] Start: 2022 End: 11-12-2022 [facility] Start: 2022 Evaluation and manag ement of inpatient MD Stalin Beach Work Phone: [facility] Work Phone: Start: 2022 observation encounter MD Ewa Beach Work Phone: [facility] Work Phone: Start: 11-24-2021 End: 11-25-[address] STALIN BEACH Facility:[facility] Start: 11-07-2021 Encounter for genera l adult medical examination without abnormal findings DR STALIN BEACH [facility] Start: 11-03-2021 End: 11-03-[address] STALIN [...] Start: 04-09-2021 End: 04-10-[address] STALIN BEAHC Facility:[facility] Start: 03-27-2021 End: 03-28-[address] [...] above: Performed By: #### C MP #### [facility] [address] [place] [address] Dr. Sunny Ortez Start: 12-17-2018 Antibody screen Comment on above: Performed By: #### T [id number] ####[facility] [id number] [place], [place] [phone] Plan of Treatment Date Care Activity Detail Author Start: 01-20-2024 End: 01-20-2024 Patient encounter procedure 01/20/2024 3:30 PM EST Office Visit [facility] [address] [facility] [address] [place] [address] Mike Morelos, [address] [facility] [place] [address] [facility] Start: 03-25-2023 End: 03-25-2023 Patient encounter procedure 03/25/2023 3:30 PM EST Office Visit [facility] [address] [facility] [address] [place] [address] Andra Ramirez, AIRSET CASTER-DATA MANAGEMENT ANALYST [address] [facility] [address] [place] [address] [facility] Start: 12-17-2022 End: 12-17-2022 Professional / ancillary services management [facility] Start: 2022 Blood chemistry [facility] Start: 2022 Hospital admission [facility] Start: 2022 End: 2022 [facility] Start: 2022 Plain chest X-ray XR chest 2V* [facility] Start: 2022 XR Chest 2 Views [facility] Start: 10-11-2022 Influenza vaccination Influenza Vaccine (#1) [facility] Start: 2012 Zoster Vaccines (1 of 2) Zoster Vaccines (1 of 2) [facility] Start: 1984 DTaP/Tdap/Td Vaccines (1 - Tdap) DTaP/Tdap/Td Vaccines (1 - Tdap) [facility] Start: 1981 Urine screening for protein Diabetes: Urine Protein Screening [facility] Start: 1980 Hepatitis C screening Hepatitis C Screening [facility] Start: 1972 Diabetic foot examination Diabetes: Foot Exam [facility] Start: 1972 Glaucoma screening Diabetes: Retinopathy Screening [facility] Start: 1968 Pneumococcal Vaccine: Pediatrics (0 to 5 Years) and At-Risk Patients (6 to 64 Years) (1 - PCV) Pneumococcal Vaccine: Pediatrics (0 to 5 Years) and At-Risk Patients (6 to 64 Years) (1 - PCV) [facility] Start: 11-11-1963 MMR Vaccines (1 of 1 - Standard series) MMR Vaccines (1 of 1 - Standard series) [facility] Start: 05-12-1963 COVID-19 Vaccine (#1) COVID-19 Vaccine (#1) [facility] Start: 1962 Hemoglobin A1c measurement Diabetes: Hemoglobin A1C [facility] Start: 1962 HIV screening HIV Screening [facility] Start: 1962 Lipid panel Lipid Panel [facility] Start: 1962 Screening for malignant neoplasm of colon [facility] Start: 1962 Yearly Adult Physical Yearly Adult Physical [facility] Anion gap measurement [facility] Calculated LDL cholesterol level [facility] Cholesterol.total/Ch oles terol in HDL [Mass Ratio] in Serum or Plasma [facility] Glucose measurement estimated from glycated hemoglobin [facility] NM Heart Perfusion W stress and W radionuclide IV Nuclear Stress Test Cardiac Nuclear Medicine Routine Chest pain, unspecified type 12/16/2022 8:08 AM EST [facility] Service Area Work Phone: VLDL cholesterol measurement [facility] Payers Date Payer Category Payer Self-pay 2022 Unknown [id number] 2022 Private Health Insurance [facility] [id number] 2022-Present Raymond Fermin [id number] [place] [id number] 2022 Unknown [id number] 1962 Unknown [id number] 93 1962 Unknown [id number] 93 1962 Unknown [id number] 93 1962 Unknown [id number] 93 1962 Unknown [id number] 93 1962 Unknown [id number] [id number] 93 1962 Unknown [id number] 93 1962 Unknown [id number] [id number] 93 1962 Unknown [id number] [id number] 93 1962 Unknown [id number] [id number] 93 1959 Unknown [id number] 1959 Unknown [id number] Unknown [place] [employer] [id number] Unknown [id number] 31 Social History Date Type Detail Facility Start: 2022 End: 01-22-2023 Tobacco smoking status NHIS Never smoked tobacco (finding) [facility] Start: 1960 Sex Assigned At Male [facility] Tobacco smoking stat us NHIS Tobacco smoking consumption unknown [facility] Work Phone: Start: 12-16-2022 Gender identity Identifies as male gender (finding) [facility] Work Phone: Start: 12-16-2022 Sexual orientation Heterosexual (finding) [facility] Work Phone: Start: 12-06-2022 End: 04-23-2023 Exposure to SARS-CoV-2 (event) Not sure [facility] Start: 01-22-2023 Tobacco use and exposure Smokeless tobacco non-user [facility] Work Phone: Start: 01-22-2023 End: 04-23-2023 Alcohol intake Lifetime non-drinker (finding) [facility] Work Phone: Start: 01-22-2023 End: 04-23-2023 History of Social function [facility] Work Phone: Start: 01-22-2023 End: 04-23-2023 Tobacco use panel [facility] Work Phone: Clinical Notes 01-22-2023 to [...] sodium restriction. Annual follow-up Andra Ramirez MSN, AIRSET CASTER-DATA MANAGEMENT ANALYST, PMHNP-[facility] Please excuse any errors in grammar or translation related to this dictation. Voice recognition software was utilized to prepare this document.. documented in this encounter [facility] Work Phone: 04-23-2023 Instructions SUGEY Tabares [...] Morelos 9 months documented in this encounter [facility] Work Phone: 01-23-2023 Evaluation + Plan note Associated Problem(s): BMI 40.0-44.9, adult ([facility]) Recently started treatment with Ozempic Weight is down 10 pounds Reviewed the merits of healthy lifestyle choices on overall cardiovascular health. [facility] Work Phone: 01-23-2023 Miscellaneous Notes Associated [...] METS. EF 59%. documented in this encounter [facility] Work Phone: 01-23-2023 Evaluation + Plan note Associated Problem(s): Obstructive sleep apnea Remains compliant with CPAP [facility] Work Phone: 01-23-2023 Evaluation + Plan note Associated Problem(s): Diabetes mellitus type II, non insulin dependent ([facility]) On ARB No statin Unknown hemoglobin A1c [facility] Work Phone: 01-23-2023 Evaluation + Plan note Associated Problem(s): Hypertensive left ventricular hypertrophy, without heart failure November 2022 TTE LVEF greater than 70% LVH moderate MR trace [facility] Work Phone: 01-23-2023 Evaluation + Plan note Associated Problem(s): Essential hypertension He has been compliant with addition of doxazosin and valsartan since discharge. Reports PCP stopped hydrochlorothiazide. Remains elevated in office today [facility] Work Phone: 01-23-2023 Evaluation + Plan note Associated Problem(s): Cardiac and Vasculature November 2022 hospitalization for chest pressure, ruled out ACS. Inpatient echo EF greater than 70%, no wall motion abnormality. Subsequent December 2022 perfusion study no ischemia, no infarct. Completed 4 METS. EF 59%. [facility] Work Phone: 01-22-2023 History of Present illness Narrative Chief Complaint Doing fine Reason for Visit Patient presents to the office today for outpatient follow-up for hospital follow up. Patient was recently hospitalized at [facility]. The patient was seen in Cardiology consult with subsequent cardiovascular management by [facility]. Hospitalization records have been reviewed. Reason for Cardiology Consultation: Chest pressure, accelerated hypertension Consulting Torpedoman'S Mate: Dr. Morelos Cardiovascular testing: Echocardiogram, outpatient perfusion study Changes to cardiovascular medical regimen at time of discharge: Added Cardura 8 mg, valsartan 320 mg, hydrochlorothiazide Discharge disposition: Home This is initial in clinic evaluation at [facility] Presents today ambulatory with steady gait. Accompanied [...] Diabetes mellitus type II, non insulin dependent ([facility]) On ARB No statin Unknown hemoglobin A1c [...] contact the office if new symptoms arise. 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 Voice recognition software was utilized to prepare this document. documented in this encounter [facility] Work Phone: 01-22-2023 Instructions SUGEY Tabares [...] contact the office if new symptoms arise. 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 documented in this encounter [facility] Work Phone: Evaluation note Diagnosis Onset Date Chest pain acute Hypertensive urgency acute [facility] Work Phone: Evaluation note* Diagnosis Essential hypertension- Primary Unspecified essential hypertension Chest pain, unspecified type Obstructive sleep apnea Obstructive sleep apnea (adult) (pediatric) Diabetes mellitus type II, non insulin dependent ([facility]) Type II or unspecified type diabetes mellitus without mention of complication, not stated as uncontrolled Hypertensive left ventricular hypertrophy, without heart failure BMI 40.0-44.9, adult (CMS/HCC) documented in this encounter [facility] Work Phone: Evaluation note* Diagnosis BMI 40.0-44.9, adult (CMS/HCC)- Primary Essential hypertension Unspecified essential hypertension documented in this encounter [facility] Work Phone: Reason for referral (narrative)* Consultation (Routine) - Authorized Specialty Diagnoses / Procedures Referred By Callum long Referred To Contact Cardiology Diagnoses Essential hypertension Procedures Follow Up In Cardiology Andra Ramirez APRN-CNP [address] [facility] [address], [address] [address] Referral ID Status Reason Start Date Expiration Date V isits Requested Visits Authorized [id number] Authorized 01/22/2023 01/22/2024 1 1 [facility] Work Phone: Reason for referral (narrative)* Consultation (Routine) - Authorized Specialty Diagnoses / Procedures Referred By Callum long Referred To Contact Cardiology Diagnoses Essential hypertension Procedures Follow Up In Cardiology Andra Ramirez APRN-JOSE [address] [facility] [address], [address] [address] Mike Morelos DO [address] [facility] [address], [address] [address] Referral ID Status Reason Start Date Expiration Date V isits Requested Visits Authorized [id number] Authorized 04/23/2023 04/22/2024 1 1 [facility] Work Phone: Summary Purpose Family History No Family History Records FoundNo Family History Records FoundNo Family History Records FoundNo Family History Records Found Advance Directives Advance Directive Response Recorded Date/ Time Advance Directives No 2022 1:53am Hospital Course Note HNO ID: [id number] Author: Delonte pham (Jose) Hrnchar Service: Urology [...] section and content) DATE CREATED AUTHOR 03/30/[address] [facility] DATE CREATED AUTHOR AUTHOR'S ORGANIZ ATION 06/26/2019 [facility] DATE CREATED AUTHOR AUTHOR'S ORGANIZ ATION 12/03/2021 [facility] DATE CREATED AUTHOR AUTHOR'S ORGANIZ ATION 11/23/2022 [facility] Care Teams (unrecognized sec tion and content) Team Status: Active Member Role Status Dates Stalin Beach MD Primary Care Provider Active Team Status: Active Member Role Status Dates Stalin Beach MD Primary Care Provider Active Damien Hercules DO Emergency Provider Active Derick Gomes MD Admit Provider, Attending Provi jefferson Active Instructor Of Spanish Relationship Specialty Start Date End Date Stalin Beach MD [address] [place] [address] [place] [address] PCP - General Family Medicine 11/13/22 Instructor Of Spanish Relationship Specialty Start Date End Date Stalin Beach MD [facility] [place] [address] PCP - General Family Medicine 11/13/22 Instructor Of Spanish Relationship Specialty Start Date End Date Stalin Beach MD [address] [place] [address] [place] [address] PCP - General Family Medicine 11/13/22 Instructor Of Spanish Relationship Specialty Start Date End Date Stalin Beach MD [address] [facility] [place] [id number] PCP - General Family Medicine 11/13/22 Goals (unrecognized section and content) Goals may be documented in a n alternate section Reason for Visit (unrecogniz ed section and content) Specialty Diagnoses / Procedures Referred By Contac t Referred To Contact Radiology Diagnoses Chest pain, unspecified type Procedures Nuclear Stress Test CHG MYOCARDIAL SPECT MULTIPLE STUDIES CHG MYOCARDIAL SPECT SINGLE STUDY AT REST OR STRESS CO CV STRS TST XERS&/OR RX CONT ECG W/O I&R CO CV STRS TST XERS&/OR RX CONT ECG I&R ONLY CO CV STRS TST XERS&/OR RX CONT ECG TRCG ONLY CO CV STRS TST XERS&/OR RX CONT ECG W/SI&R Mike Morelos, DO [address], [address] [place] [address] Referral ID Status Reason Start Date Expiration Date V isits Requested Visits Authorized [id number] Authorized 11/13/2022 05/12/2023 5 5 Reason Comments Shortness of Breath Chest pressure Specialty Diagnoses / Procedures Referred By Contac t Referred To Contact Cardiology Diagnoses Chest pain, unspecified type Procedures Follow Up In Cardiology Mike Morelos, DO [address], [facility] [address] [place] [address] Mike Morelos, DO [address], [address] [place] [address] Referral ID Status Reason Start Date Expiration Date V isits Requested Visits Authorized [id number] Authorized 01/06/2023 01/06/2024 1 1 Reason Comments Follow-up 1 month Specialty Diagnoses / Procedures Referred By Contac t Referred To Contact Cardiology Diagnoses Essential hypertension Procedures Follow Up In Cardiology Andra Ramirez, AIRSET CASTER-DATA MANAGEMENT ANALYST [address], [address] [place] [address] Referral ID Status Reason Start Date Expiration Date V isits Requested Visits Authorized [id number] Authorized 03/25/2023 03/24/2024 1 1 FOR RECORDS [...] BE BASED ON THE PRIMARY CLINICAL RECORDS. [employer] provides no warranty or guarantee of the accuracy or completeness of information in this document.
[2023-06-14 13:57] LABS: Occult Blood Positive
== END 2023-06-14 12:51 | disposition home or self-care (01) ==
LOC: LAB 12:50
PROVIDERS: PCP Family Medicine; Visit Provider Family Medicine
DX: Z00.00 Encounter for general adult medical examination without abnormal findings (principal)
CPT/HCPCS: G0328

== ENCOUNTER 2023-06-24 15:18 | Outpatient (OUT) | payer OTHER, SELFPAY ==
[2023-06-24 15:39] LABS: Basophils Absolute Auto 0.1 10^3/uL (0.0-0.1); Basophils Percent Auto 0.7 % (0.2-2.0); Eosinophils Absolute Auto 0.2 10^3/uL (0.0-0.7); Eosinophils Percent Auto 2.4 % (0.9-7.0); Hematocrit 42.3 % (42.0-54.0); Hemoglobin 14.1 g/dL (14.0-18.0); Immature Granulocytes Abs Auto 0.03 10^3/uL (0.00-0.03); Immature Granulocytes Pct Auto 0.3 % (0.0-0.5); Lymphocytes Absolute Auto 1.7 10^3/uL (1.2-3.8); Mean Corpuscular HGB Conc 33.3 g/dL (29.9-35.2); Mean Corpuscular Hemoglobin 29.6 pg (25.9-34.0); Mean Corpuscular Volume 88.7 fL (80.0-94.0); Monocytes Absolute Auto 0.9 10^3/uL (0.3-0.8); Monocytes Percent Auto 8.7 % (1.7-12.0); Neutrophils Percent Auto 70.9 % (43.0-75.0); Platelet Count 256 10^3/uL (150-450); Red Blood Count 4.77 10^6/uL (4.70-6.10); Red Cell Distribution Width 14.3 % (11.0-15.0); White Blood Count 9.9 10^3/uL (4.0-11.0)
[2023-06-24 16:10] LABS: Alanine Aminotransferase 31 U/L (16-63); Albumin Globulin Ratio 1.1; Albumin Level 3.7 g/dL (3.4-5.0); Alkaline Phosphatase 60 U/L (46-116); Anion Gap 11.9; Aspartate Amino Transferase 22 U/L (15-37); BUN Creatinine Ratio 10.8; Bilirubin Total 0.6 mg/dL (0.2-1.0); Calcium 9.2 mg/dL (8.5-10.1); Carbon Dioxide 26.2 mmol/L (21.0-32.0); Chloride 106 mmol/L (98-107); Estimated GFR (African America 59 (>=60); Estimated GFR (Non-African Ame 48 (>=60); Globulin 3.3 g/dL; Glucose 85 mg/dL (74-106); Potassium 4.1 mmol/L (3.5-5.1); Sodium 140 mmol/L (136-145); Troponin I High Sensitivity 4.9 pg/mL (4.0-76.1)
== END 2023-06-24 15:19 | disposition home or self-care (01) ==
PROVIDERS: PCP Family Medicine; Visit Provider Family Medicine
DX: R53.1 Weakness (principal); R42 Dizziness and giddiness
CPT/HCPCS: 36415; 80053; 83880; 84484; 85025

== ENCOUNTER 2023-09-09 13:49 | Outpatient (OUT) | payer OTHER, SELFPAY | END 2023-09-09 13:50 | disposition home or self-care (01) | LOC: PST 13:49 | PROVIDERS: PCP Family Medicine; Visit Provider Surgery | DX: Z01.818 Encounter for other preprocedural examination (principal); R19.5 Other fecal abnormalities ==

== ENCOUNTER 2023-09-17 08:30 | Day surgery (SDC) | payer OTHER, SELFPAY ==
--- NOTE | 2023-09-17 | OP_ITS ---
OPERATION DATE: 09/17/2023 PREOPERATIVE DIAGNOSIS: Positive fecal occult blood test. POSTOPERATIVE DIAGNOSIS: Severe sigmoid diverticulosis as well as 3 mm rectal polyp. PROCEDURE: Colonoscopy to cecum with cold forceps polypectomy x1. SURGEON: Puneet Black M.D. ANESTHESIA: Monitored anesthesia care. ESTIMATED BLOOD LOSS: Less than 1 mL. INDICATIONS AND CONSENT: Patient is a 62-year-old male presents for evaluation of positive fecal occult blood test. Indications, risks, benefits, alternatives of proceeding with colonoscopy were explained extensively to the patient, including the risks of bleeding, colon perforation or anesthetic complications. All of his questions were answered. Informed consent was obtained. PROCEDURE: Patient brought to the operating room, placed in the left lateral decubitus position. Monitored anesthesia care was provided. Rectal exam was performed which showed no masses or blood. The scope was inserted into the anal canal. Under direct visualization was advanced. It was advanced to the cecum where cecal markings were clearly identified. There was noted to be a good prep. Upon withdrawal of the scope, mucosal surfaces were carefully examined. There were no mass lesions or inflammatory changes. There was severe sigmoid diverticulosis with some redundancy of the colon. Within the rectum, there was noted to be a 3 mm sessile polyp that was removed with cold biopsy forceps with good hemostasis. The scope was retroflexed. There was no significant hemorrhoidal disease. Scope was then withdrawn. Patient tolerated procedure well. Follow up colonoscopy will likely be in five years, but will depend on pathology result. CC: Stalin Singer M.D. REAL
--- OUTSIDE RECORDS SUMMARY | 2023-09-17 08:43 | XMS_ITS | CCD ---
Author Organization [facility] [employer] Care Team Providers [employer] Consultant Name Role Phone YONG, DR VALDIVIA Consulting [...] Admitting Unavailable Zieber, DR Elise Consulting Unavailable YONG, DR VALDIVIA Consulting Unavailable YONG, DR VALDIVIA Primary Care Unavailable DELPHINEY, DR VALDIVIA Attending Unavailable HOY, DR VALDIVIA Admitting Unavailable West, DR Davila Consulting Unavailable YONG, DR VALDIVIA Consulting Unavailable YONG, DR VALDIVIA Primary Care Unavailable YONG, DR VALDIVIA Attending Unavailable YONG, DR VALDIVIA Admitting Unavailable West, DR Davila Consulting Unavailable HOY, DR VALDIVIA Consulting Unavailable DELPHINEY, DR VALDIVIA Primary Care Unavailable HOY, DR VALDIVIA Attending Unavailable HOY, DR VALDIVIA Admitting Unavailable HOMarco Antonio, DR VALDIVIA Consulting Unavailable YONG, DR VALDIVIA Primary Care Unavailable YONG, DR VALDIVIA Attending Unavailable HOY, DR VALDIVIA Admitting Unavailable HOY, DR VALDIVIA Consulting Unavailable DELPHINEY, DR VALDIVIA Primary Care Unavailable HOY, DR VALDIVIA Attending Unavailable YONG, DR VALDIVIA Admitting Unavailable MD Shea Beach Primary Care Provider DO Damien Hercules Emergency Provider [phone] MD Derick Gomes Admit Provider MD Derick Gomes Attending Provider Claudia Parra Consulting Unavailable Shea Beach Primary Care Unavailable Moises Carver Attending Unavailable Derick Gomes Admitting Unavailable Maynor Morelos Consulting Unavailable Steve See Consulting Unavailable Mike Lama Consulting Unavail able Eric Villa Consulting Unavailable Magdy Rose Consulting Unavailab Andra Bernstein Consulting Unavailable Michelle Dumont Consulting Unavailable Jean Gustafson Consulting Unavailab Adelita Jaimes Consulting Unavailable Rosanne Heard Consulting Unavailable Diann Garcia Consulting Unavailable Shea Beach MD Primary Care Provider Shea Beach Primary Care Physician [phone] Tariq GORDON Attending Unavailable Shea Beach Referring Unavailable Tariq GORDON Admitting Unavailable Tariq GORDON Attending Unavailable Tariq GORDON Referring Unavailable SHEA BEACH Primary Care Unavailable DAMION WILLIAMSON Attending Unavailable DAMION WILLIAMSON Referring Unavailable CUCA PAULINO Referring Unavailable SHEA BEACH Primary Care Unavailable SHEA BEACH Primary Care Unavailable DAMION WILLIAMSON Referring Unavailable DAMION WILLIAMSON Attending Unavailable CUCA PAULINO Referring Unavailable SHEA BEACH Primary Care Unavailable Allergies Allergy Classification Reported Allergen(s) Allergy Type Date of Onset Reaction(s) Facility Nitrate Vasodilator (1 source) Nitroglycerin; Translations: [nitroglycerin] Drug Allergy [facility] Repository (1 source) Aminolevulinic Acid Drug Allergy 0 [facility] Repository (4 sources) Nitroglycerin; Translations: [nitroglycerin] Drug Allergy 9 Other, Low blood pressure (disorder) [facility] Medications Current Medications Medication Drug Class(es) Dates Sig (Normalized) Sig (Original) 3 ML semaglutide 2.68 MG/ML Pen Injector [Ozempic] (2 sources) Start: 07-03-2023 inject 2 mg by subcutaneous injection every week Ozempic 8 mg/3 mL (2 mg dose) subcutaneous solution 2 mg, SubCutaneous, qWeek, Refills(s) 0, Blood glucose Start Date: 07/03/23 Status: Ordered Start: 07-03-2023 inject 2 mg by subcu taneous injection every week Ozempic 8 mg/3 mL (2 mg dose) subcutaneous solution 2 mg, SubCutaneous, qWeek, Refills(s) 0 Start Date: 07/03/23 Status: Ordered amLODIPine 10 mg oral tablet (2 sources) [...] 2022 12:00am doxazosin 4 mg oral tablet (6 sources) alpha-Adrenergic Long Start: 07-03-2023 take 1 tablet by mouth once daily doxazosin 4 mg Tab 4 mg = 1 tab(s), Oral, Daily, Refills(s) 0, High blood pressure Start Date: 07/03/23 Status: Ordered Start: 2022 take 2 tablets by mo uth once daily Doxazosin Active 4 MG PO Daily 2022 12:00am takes 2 tabs take 1 tablet by melissa th every twelve hours doxazosin (Cardura) 4 mg tablet Take 1 tablet (4 mg) by mouth every 12 hours. 0 Active empagliflozin 10 mg oral tablet (4 sources) Sodium-Glucose Cotransporter 2 Inhibitor Start: 07-03-2023 take 1 tablet by mouth once daily in the morning Jardiance 10 mg oral tablet 10 mg = 1 tab(s), Oral, qAM, Refills(s) 0, Blood glucose Start Date: 07/03/23 Status: Ordered Start: 12-13-2022 take 1 tablet by melissa th once daily Jardiance 10 mg Take 1 tablet (10 mg) by mouth once daily. 0 12/13/2022 Active hydroCHLOROthiazide 25 mg oral tablet (3 sources) Thiazide Diuretic Start: 07-03-2023 take 1 tablet by mouth once daily hydrochlorothiazide 25 mg Tab 25 mg = 1 tab(s), Oral, Daily, Refills(s) 0, diuretic/water pill Start Date: 07/03/23 Status: Ordered End: 01-22-2023 take 1 tablet by mouth once daily hydroCHLOROthiazide (HYDRODiuril) 25 mg tablet Take 1 tablet (25 mg) by mouth once daily. 0 01/22/2023 Discontinued (Therapy completed) metFORMIN hydrochloride 500 mg oral tablet (5 sources) Biguanide Start: 07-03-2023 MetFORMIN (Eqv -Glucophage XR) 500 mg oral tablet, extended release 1,000 mg = 2 tab(s), Oral, Daily, Refills(s) 0, Blood glucose Start Date: 07/03/23 Status: Ordered Start: 2022 take 500 mg by mouth once daily at bedtime Metformin Active 500 MG PO Daily at bedtime 2022 12:00am Start: 06-17-2022 take 1 tablet by melissa th every twenty-four hours metFORMIN XR 500 mg 24 hr tablet Take 1 tablet (500 mg) by mouth once every 24 hours. 0 06/17/2022 Active 24 hr metoprolol succinate 100 mg extended release oral tablet (6 sources) beta-Adrenergic Long Start: 07-03-2023 metopr olol 100 mg ER Tab 150 mg = 1.5 tab(s), Oral, Daily, Refills(s) 0, High blood pressure Start Date: 07/03/23 Status: Ordered Start: 01-22-2023 metoprolol suc cinate XL (Toprol-XL) 25 mg 24 hr tablet [...] 30 tablet 11 03/25/2023 03/24/2024 Active valsartan 160 mg oral tablet (5 sources) Angiotensin 2 Receptor Long Start: 07-03-2023 take 1 tablet by mouth once daily valsartan 160 mg Tab 160 mg = 1 tab(s), Oral, Daily, Refills(s) 0, High blood pressure Start Date: 07/03/23 Status: Ordered Start: 01-22-2023 End: 01-23-2024 take 1 tablet [...] oral tablet (1 source) Arteriolar Vasodilator Start: 09-10-2018 End: 01-22-2023 take 1 tablet by mouth twice daily hydrALAZINE (Apresoline) 50 mg tablet Take 1 tablet (50 mg) by mouth twice a day. 0 09/10/2018 01/22/2023 Discontinued (Therapy completed) Problems Active Problems Problem Classification Problem Date Documented Da te Episodic/Chronic Acute bronchitis (1 source) Acute bronchitis, unspecified; Translations: [ACUTE BRONCHITIS UNSPECIFIED] Onset: 11-01-2021 Episodic Cancer of kidney and renal pelvis (12 sources) Malignant neoplasm of unspecified kidney, except renal pelvis; Translations: [Malignant neoplasm of left kidney, except renal pelvis] Onset: 03-27-2021 Chronic Diabetes mellitus without complication (10 sources) Type 2 diabetes mellitus without complications; Translations: [Type 2 diabetes mellitus] Onset: 04-09-2021 Chronic Diabetes mellitus without complication (1 source) Other abnormal glucose; Translations: [OTHER ABNORMAL GLUCOSE] Onset: 11-28-2021 Episodic Essential hypertension (11 sources) Essential (primary) hypertension; Translations: [Essential hypertension] [...] and ureter] Onset: 01-17-2023 01-17-2023 Chronic Other gastrointestinal disorders (1 source) Abnormal feces; Translations: [Other fecal abnormalities] Onset: 07-14-2023 Episodic Other gastrointestinal disorders (2 sources) Occult blood in stools 07-03-2023 Episodic Other nutritional; endocrine; and metabolic disorders (4 sources) Body mass index 40+ - severely obese; Translations: [Body mass index (BMI) 40.0-44.9, adult] Onset: 01-23-2023 01-23-2023 Chronic Other nutritional; endocrine; and metabolic disorders (2 sources) Body mass index 30+ - obesity 07-14-2023 Chronic Other nutritional; endocrine; and metabolic disorders (2 sources) Obese class III 07-14-2023 Chronic Residual codes; unclassified (4 sources) Obstructive sleep apnea (adult) (pediatric); Translations: [OBSTRUCTIVE SLEEP APNEA] Onset: 04-10-2021 Chronic Residual codes; unclassified (3 sources) Obstructive sleep apnea syndrome; Translations: [Obstructive sleep apnea (adult) (pediatric)] Onset: 01-22-2023 01-22-2023 Chronic Residual codes; unclassified (3 sources) Acquired absence of kidney; Translations: [Acquired absence of kidney] Onset: 08-28-2023 Episodic Unclassified (3 sources) CONTACT W/AND (SUSP) EXPOS COVID-19; Translations: [CONTACT W/AND (SUSP) EXPOS COVID-19] Onset: 11-01-2021 Past or Other Problems Problem Classification Problem Date Documented Da te Episodic/Chronic Neoplasms of unspecified nature or uncertain behavior (4 sources) Neoplasm of kidney; Translations: [Neoplasm of unspecified behavior of unspecified kidney] Onset: 12-22-2018 01-17-2023 Episodic Other non-traumatic joint disorders (3 sources) Pain in left knee; Translations: [PAIN IN LEFT KNEE] Onset: 03-25-2021 Episodic Other non-traumatic joint disorders (1 source) Effusion, left knee; Translations: [EFFUSION LEFT KNEE] Onset: 03-27-2021 Episodic Other screening for suspected conditions (not mental disorders or infectious disease) (1 source) Elevated prostate specific antigen [PSA]; Translations: [Elevated prostate specific antigen (PSA)] Onset: 05-22-2023 Episodic Unclassified (1 source) CONTACT W/AND (SUSP) EXPOS COVID-19; Translations: [CONTACT W/AND (SUSP) EXPOS COVID-19] Onset: 10-31-2021 Results Test Name Value Interpretation Reference Range Facility XR CHEST (2 VW)on 08-28-2023 XR CHEST (2 VW) EXAMINATION: TWO XRAY VIEWS OF THE CHEST 08/28/2023 2:25 pm COMPARISON: None. HISTORY: ORDERING SYSTEM PROVIDED HISTORY: Renal cancer, left (HCC) FINDINGS: The lungs appear clear. There are no pulmonary nodules. The heart appears unremarkable. Osteophytes are noted in the thoracic spine. IMPRESSION: No acute cardiopulmonary process. Interpreted by: Rudi Blackwood MD Signed by: Rudi Blackwood MD 08/28/23 Final result Normal [facility] CT ABDOMEN PELVIS W IV CONTR Nell 08-26-2023 CT ABDOMEN PELVIS W IV CONTRAST EXAMINATION: CT OF THE ABDOMEN AND PELVIS WITH CONTRAST 08/21/2023 4:07 pm TECHNIQUE: CT of the abdomen and pelvis was performed with the administration of intravenous contrast. Multiplanar reformatted images are provided for review. Automated exposure control, iterative reconstruction, and/or weight based adjustment of the mA/kV was utilized to reduce the radiation dose to as low as reasonably achievable. COMPARISON: None. HISTORY: ORDERING SYSTEM PROVIDED HISTORY: Renal cancer, left (HCC) TECHNOLOGIST PROVIDED HISTORY: STAT Creatinine as needed:->No FINDINGS: Lower Chest: The lung bases demonstrate trace pleural effusions with bibasilar atelectasis. Organs: The liver, spleen, pancreas and adrenal glands appear unremarkable. There are calcified gallstones in the gallbladder. There are postsurgical changes of partial left nephrectomy. There is symmetric enhancement of the kidneys. No abnormal enhancing masses are seen. There is a small cyst in the left kidney. No hydronephrosis is seen. No ureteral or bladder calculi are noted. GI/Bowel: Evaluation of the bowel is limited as no enteric contrast was given. No dilated loops of bowel are seen. I do not see a dilated appendix.There is diverticular disease involving the colon but no findings to suggest active inflammation. Pelvis: No pelvic masses or fluid collections are seen. The prostate gland is enlarged. Peritoneum/Retroperitoneum : The abdominal aorta is not aneurysmal. There are shotty mesenteric and retroperitoneal lymph nodes but no retroperitoneal or mesenteric lymphadenopathy is seen. Bones/Soft Tissues: No acute bony abnormalities are noted. There are shotty inguinal lymph nodes noted.There is diastasis recti with small fat containing umbilical hernia. IMPRESSION: 1. Status post partial left nephrectomy with no evidence of recurrent or metastatic disease. 2. Cholelithiasis. 3. Diverticulosis. 4. Enlarged prostate gland. 5. Trace bilateral pleural effusions with bibasilar atelectasis. Interpreted by: Rogelio Bartlett MD Signed by: Rogelio Bartlett MD 08/26/23 Final result Normal [facility] BUN + Creatinineon 4 Creatinine [Mass/Vol] 1.3 mg/dL High 0.7-1.2 [facility] Comment on above: Performed By: #### B UNCRT #### [facility] [address] [place] [address] Composition Worker: Steve Haro MD #### PSAD #### [facility] [employer] [address] [place] [address] Composition Worker: Bk Guerrero MD GFR/1.73 sq M.predicted among non-blacks MDRD (S/P/Bld) [Vol rate/Area] 63 mL/min/{1.73_m2} Normal >60 [facility] Comment on above: Result Comment: These results are not intended for use in patients <18 years of age. eGFR results are calculated without a race factor using the 2020 CKD-EPI equation. Careful clinical correlation is recommended, particularly when comparing to results calculated using previous equations. The CKD-EPI equation is less accurate in patients with extremes of muscle mass, extra-renal metabolism of creatine, excessive creatine ingestion, or following therapy that affects renal tubular secretion. Performed By: #### B UNCRT #### [address] [place] [address] Composition Worker: Steve Haro MD #### PSAD #### [address] [id number] Composition Worker: Bk Guerrero MD Urea nitrogen [Mass/Vol] 14 mg/dL Normal 8-23 [facility] Comment on above: Performed By: #### B UNCRT #### [address] [place] [address] Composition Worker: Steve Haro MD #### PSAD #### [address] [id number] Composition Worker: Bk Guerrero MD PSA, [employer] 08-21-2023 Prostatic Spec. Ag 4.30 ng/mL High 0.00-4.00 [facility] Comment on above: Result Comment: The Luther ECLIA assay is used. Results obtained with different assay methods cannot be used interchangeably. Performed By: #### B UNCRT #### [address] [place] [address] Composition Worker: Steve Haro MD #### PSAD #### [place] [id number] [place], [place] [id number] Composition Worker: Bk Guerrero MD Consent for Procedure/Surger yon 08-06-2023 Consent for Procedure/Surgery [id number]#1.00TIFF [facility] Consent for Treatmenton 07-12 Consent for Treatment [id number]#1.00TIFF [facility] Main OR Preoperative Recordo n 08-04-2023 Main OR Preoperative Record Holding Area Document Type FT Summary Primary Physician: Tariq GORDON MD Finalized Date/Time: 08/04/23 08:14:07 Pt. Name: RENACLARENCE/Sex: 1960 Male Med Rec #: [id number] Physician: Tariq GORDON MD Financial #: [id number] Pt. Type: O Room/Bed: / Admit/Disch: 08/04/23 07:34:24 - Institution: Case Times Holding FT Pre-Care Text: Verifies consent for planned procedure, identifies individual values and wishes concerning care, includes family members in perioperative teaching Secures patient's records' belongings, and valuables, maintains patient's dignity and privacy, and maintains patient confidentiality Entry 1 In Holding 08/04/23 07:38:00 Outcomes Met? Yes Last Modified By: Elizabeth Sorto RN 08/04/23 07:38:27 Post-Care Text: The patient participates in decisions affecting his or her perioperative plan of care The patient's right to privacy is maintained Surgery Checklist FT Entry 1 Patient Birthday, ID Band Procedure History and Physical, Identification: Check, Patient Verification: Surgical Consent, With Participation Patient NPO after Midnight: Yes Results Reviewed Yellow Comments: Personal Items: Dentures Personal Items Dentures Comment: Complaints of Pain: No Pain Comment: Denies Operative Site n/a Availability Equipment Marking: Verified: Does Patient Smoke No Patient states Yes Comment - Adult Amish postop adult Supervision supervision available Case Cancelled in Yes Case Cancelled Cancelled in preop d/t Holding Area see Comment anesthesia and pt comments below for taking ozempic less reason than 7 days pr Last Modified By: Elizabeth Sorto RN 08/04/23 08:14:04 General Comments: Pt completed prep at 0300 and remained NPO since/STEFANORN Cancelled in preop d/t anesthesia and pt taking ozempic less than 7 days prior/FIORELLA AGARWAL Finalized By: Elizabeth Sorto RN Document Signatures Signed By: Elizabeth Sorto RN 08/04/23 07:43 Elizabeth Sorto RN 08/04/23 08:14 [facility] Consent for Procedure/Surger yon 07-15-2023 Consent for Procedure/Surgery [id number]#1.00TIFF [facility] Ambulatory Visit Summaryon 0 07-14-2023 Ambulatory Visit Summary CLARENCE FLORES :1960 Visit Date:07/14/2023 Ambulatory Visit Instructions Your Diagnosis Positive fecal occult blood test Your Care Team Attending Physician - EVAN SARAH, Tariq Bailey Primary Care Physician - Yong SARAH, Shea Referring Physician - Yong SARAH, Shea This Is Your Medications List Contact prescribing physician if questions or concerns doxazosin (doxazosin 4 mg Tab) empagliflozin (Jardiance 10 mg oral tablet) hydrochlorothiazide (hydrochlorothiazide 25 mg Tab) metformin (MetFORMIN (Eqv-Glucophage XR) 500 mg oral tablet, extended release) metoprolol (metoprolol 100 mg ER Tab) semaglutide (Ozempic 8 mg/3 mL (2 mg dose) subcutaneous solution) valsartan (valsartan 160 mg Tab) Procedures Performed Partial nephrectomy. Discharge Vitals Heart Rate (Peripheral) 74 Respiratory Rate 16 Blood Pressure 112/72 Height 167.6 cm Height 66 in Weight 109.7 kg Weight 241.34 lb BMI 39.05 Medications What How Much When Instructions Unchanged doxazosin (doxazosin 4 mg Tab) 1 Tablets By Mouth Every day Contact prescribing physician if questions or concerns Unchanged empagliflozin (Jardiance 10 mg oral tablet) 1 Tablets By Mouth Once a day (in the morning) Contact prescribing physician if questions or concerns Unchanged hydrochlorothiazide (hydrochlorothiazide 25 mg Tab) 1 Tablets By Mouth Every day Contact prescribing physician if questions or concerns Unchanged metformin (MetFORMIN (Eqv-Glucophage XR) 500 mg oral tablet, extended release) 2 Tablets By Mouth Every day Contact prescribing physician if questions or concerns Unchanged metoprolol (metoprolol 100 mg ER Tab) 1.5 Tablets By Mouth Every day Contact prescribing physician if questions or concerns Unchanged semaglutide (Ozempic 8 mg/ 3 mL (2 mg dose) subcutaneous solution) 2 Milligram Subcutaneous Every week Contact prescribing physician if questions or concerns Unchanged valsartan (valsartan 160 mg Tab) 1 Tablets By Mouth Every day Contact prescribing physician if questions or concerns Allergies nitroglycerin (Hypotension) Problems Ongoing - Any problem that you are currently receiving treatment for. BMI 39.0-39.9,adult Class 3 obesity Essential hypertension Neoplasm of kidney Positive fecal occult blood test Type 2 diabetes mellitus Patient Survey You may receive a survey via text or e-mail asking about your office visit. Please share your experience with us by completing your survey. We appreciate your feedback and thank you for choosing us for your care. Normal [facility] Physician Referralon 024 Physician Referral [id number]#[id number] Normal [facility] NM Heart Perfusion W stress and W [...] Eric Villa 12/17/2022 5:57 PM Dictation workstation: [id number] [id number] Interpreted By: Eric Villa and Giannuzzi Michael STUDY: MYOCARDIAL PERFUSION STRESS TEST WITH EXERCISE Performing facility: [facility], [address] [place] [address], [address], [address] Provider: Chaim Morelos DO, [facility] PCP: Dr. Beach Supervising provider: Andra Ramirez RN, [employer] INDICATION: Chest Pain; HISTORY: Gender: M; Age: 62 y/o ; Height: cm; Weight: kg. Diabetes; Family HX CAD; HTN; SOB; Denies smoking. COMPARISON: No comparison. ACCESSION NUMBER(S): [id number] ORDERING CLINICIAN: MIKE MORELOS TECHNIQUE: TWO DAY [...] PERFUSION STRESS TEST WITH EXERCISE Performing facility: [facility], [address] [place] [address], [address], [address] Provider: Chaim Morelos DO, FACC PCP: Dr. Beach Supervising provider: Andra Ramirez RN, [employer] INDICATION: Chest Pain; HISTORY: Gender: M; Age: 62 y/o ; Height: cm; Weight: kg. Diabetes; Family HX CAD; HTN; SOB; Denies smoking. COMPARISON: No comparison. ACCESSION NUMBER(S): [id number] ORDERING CLINICIAN: MIKE MORELOS TECHNIQUE: TWO DAY [...] Eric Villa 12/17/2022 5:57 PM Dictation workstation: [id number] [facility] Work Phone: NM Heart Perfusion W stress and W radionuclide IVOrdered By: Eric Villa on 12-17-2022 [facility] Work Phone: NM Heart Perfusion W stress and W radionuclide Karen 12-16-2022 Radiology Study observation (narrative) [facility] Work Phone: Glucose Poct Glucometerson 1 Glucose [Mass/Vol] 132 mg/dL Normal [facility] Comment on above: Result Comment: [facility] Glucose Reference Range is dependent on time and content of last meal. Glucose of more than 200 mg/dL in a nonstressed, ambulatory subject supports the diagnosis of Diabetes Mellitus. PERFORMED BY: [place] [address] PATHOLOGIST [employer] ROSCOE CASTRO M.D. Performed By: #### C BC, BMP, BNP, HS TROP, CK #### [address] Glucose [Mass/Vol] 141 mg/dL Normal [facility] Comment on above: Result Comment: [facility] Glucose Reference Range is dependent on time and content of last meal. Glucose of more than 200 mg/dL in a nonstressed, ambulatory subject supports the diagnosis of Diabetes Mellitus. PERFORMED BY: [place] [address] PATHOLOGIST [employer] ROSCOE CASTRO M.D. Performed By: #### C BC, BMP, BNP, HS TROP, CK #### [address] echo transthoracicon [facility] echo transthoracic [facility] Main [place] [address] [place] [address] Echocardiogram Signed Patient: Clarence Flores MR#: [id number] : 1960 Acct:[id number] Age/Sex: 62 / M ADM Date: 11/10/22 Loc: Room: [address] [place] [address] Type: ADM INOo Attending Dr: Moises Carver Ordering Provider: Maura Venegas MD Date of Service: 11/10/2203/04/1501 [facility]/ECH echo transthoracic: chest pain Copies to: MD [...] Signed By: Lalita Capellan MD 11/12/22 1033 [facility] Glucose Poct Glucometerson 1 Glucose [Mass/Vol] 156 mg/dL [facility] Comment on above: Result Comment: [place] [facility] Glucose Reference Range is dependent on time and content of last meal. Glucose of more than 200 mg/dL in a nonstressed, ambulatory subject supports the diagnosis of Diabetes Mellitus. PERFORMED BY: [place] [address] PATHOLOGIST [employer] ROSCOE CASTRO M.D. Performed By: #### G MECCA #### Point of Care testing , Glucose [Mass/Vol] 187 mg/dL Normal [facility] Comment on above: Result Comment: [place] [facility] Glucose Reference Range is dependent on time and content of last meal. Glucose of more than 200 mg/dL in a nonstressed, ambulatory subject supports the diagnosis of Diabetes Mellitus. PERFORMED BY: [place] [address] PATHOLOGIST [employer] ROSCOE CASTRO M.D. Performed By: #### C BC, BMP, BNP, HS TROP, CK #### [address] Glucose [Mass/Vol] 162 mg/dL Normal [facility] Comment on above: Result Comment: [place] [facility] Glucose Reference Range is dependent on time and content of last meal. Glucose of more than 200 mg/dL in a nonstressed, ambulatory subject supports the diagnosis of Diabetes Mellitus. PERFORMED BY: [place] [id number] PATHOLOGIST [employer] ROSCOE CASTRO M.D. Performed By: #### C BC, BMP, BNP, HS TROP, CK #### [place] [id number] [place] A1C with Estimated Average [facility] Glucose [Mass/Vol] 157 mg/dL Normal [facility] Comment on above: Order Comment: Comme nt add Result Comment: PERF ORMED BY: [place], [place] [address] PATHOLOGIST [employer] ROSCOE CASTRO M.D. Performed By: #### C BC, BMP, BNP, HS TROP, CK #### [place] [id number] [place] HbA1c (Bld) [Mass fraction] 7.1 % High 4.3-5.6 [facility] Comment on above: Order Comment: Comme nt add Result Comment: Incr eased risk for diabetes: 5.7 - 6.4 diabetes: >6.4 glycemic control for adults with diabetes: <7.0 Performed By: #### C BC, BMP, BNP, HS TROP, CK #### [address] Activated partial thrombopla stin time (aPTT) in platelet poor plasma by coagulation aOrdered By: Damien Hercules on 2022 aPTT Coag (PPP) [Time] 29.0 s 25.1-36.5 [facility] Comment on above: A hematocrit value g reater than 55% may lead to inaccurate results in coagulation testing. Patients having hematocrit values >55% require a special collection tube for coagulation studies. Please contact the laboratory at [phone] for redraw instructions. B-Type Natriuretic Peptideon 2022 Natriuretic peptide B (Bld) [Mass/Vol] 101.0 pg/mL High 5-100 [facility] Comment on above: Result Comment: PERF ORMED BY: [place] [address] PATHOLOGIST [employer] ROSCOE CASTRO M.D. Performed By: #### C BC, BMP, BNP, HS TROP, CK #### [address] Basic Metabolic Panelon Anion gap [Moles/Vol] 11.3 mmol/L Normal 6.0-15.0 [facility] Comment on above: Performed By: #### B MP #### [address] Calcium [Mass/Vol] 9.2 mg/dL Normal 8.6-10.3 [facility] Comment on above: Performed By: #### B MP #### [place] [address] [place] Chloride [Moles/Vol] 106 mmol/L Normal 98-107 [facility] Comment on above: Performed By: #### B MP #### [facility] [address] [place] [address] [place] CO2 [Moles/Vol] 25.2 mmol/L Normal 21.0-31.0 [facility] Comment on above: Performed By: #### B MP #### [facility] [address] [place] [address] [place] Creatinine [Mass/Vol] 1.22 mg/dL Normal 0.70-1.30 [facility] Comment on above: Performed By: #### B MP #### [facility] [address] [place] [address] [place] Creatinine Clr Calc Pharmacy 82.15 Normal [facility] Comment on above: Result Comment: PERF ORMED BY: [place] [address] PATHOLOGIST [employer] ROSCOE CASTRO M.D. Performed By: #### B MP #### [place] [address] [place] GFR/1.73 sq M.predicted MDRD (S/P/Bld) [Vol rate/Area] mL/min/{1.73_m2} Normal [facility] Comment on above: Performed By: #### B MP #### [address] Glucose [Mass/Vol] 298 mg/dL Significant change up 70-100 [facility] Comment on above: Result Comment: [place] Glucose Reference Range is dependent on time and content of last meal. Glucose of more than 200 mg/dL in a nonstressed, ambulatory subject supports the diagnosis of Diabetes Mellitus. ADA recommended reference range Performed By: #### B MP #### [facility] [address] [place] [address] [place] Potassium [Moles/Vol] 3.5 mmol/L Normal 3.5-5.1 [facility] Comment on above: Performed By: #### B MP #### [place] [address] [place] Sodium [Moles/Vol] 139 mmol/L Normal 136-145 [facility] Comment on above: Performed By: #### B MP #### [facility] [address] Urea nitrogen [Mass/Vol] 13 mg/dL Normal 7-25 [facility] Comment on above: Performed By: #### B MP #### [address] Anion gap [Moles/Vol] 10.4 mmol/L Normal 6.0-15.0 [facility] Comment on above: Performed By: #### C BC, BMP, BNP, HS TROP, CK #### [address] Calcium [Mass/Vol] 9.0 mg/dL Normal 8.6-10.3 [facility] Comment on above: Performed By: #### C BC, BMP, BNP, HS TROP, CK #### [address] Chloride [Moles/Vol] 106 mmol/L Normal 98-107 [facility] Comment on above: Performed By: #### C BC, BMP, BNP, HS TROP, CK #### [address] CO2 [Moles/Vol] 26.2 mmol/L Normal 21.0-31.0 [facility] Comment on above: Performed By: #### C BC, BMP, BNP, HS TROP, CK #### [address] Creatinine [Mass/Vol] 1.39 mg/dL High 0.70-1.30 [facility] Comment on above: Performed By: #### C BC, BMP, BNP, HS TROP, CK #### [address] Creatinine Clr Calc Pharmacy 72.10 Normal [facility] Comment on above: Result Comment: PERF ORMED BY: [place] [address] PATHOLOGIST [employer] ROSCOE CASTRO M.D. Performed By: #### C BC, BMP, BNP, HS TROP, CK #### [facility] [address] [place] [address] [place] GFR/1.73 sq M.predicted MDRD (S/P/Bld) [Vol rate/Area] 58.037 mL/min/{1.73_m2} Normal [facility] Comment on above: Performed By: #### C BC, BMP, BNP, HS TROP, CK #### [facility] [address] Glucose [Mass/Vol] 170 mg/dL High 70-100 [facility] Comment on above: Result Comment: [facility] Glucose Reference Range is dependent on time and content of last meal. Glucose of more than 200 mg/dL in a nonstressed, ambulatory subject supports the diagnosis of Diabetes Mellitus. ADA recommended reference range Performed By: #### C BC, BMP, BNP, HS TROP, CK #### [facility] [address] Potassium [Moles/Vol] 3.6 mmol/L Normal 3.5-5.1 [facility] Comment on above: Performed By: #### C BC, BMP, BNP, HS TROP, CK #### [facility] [address] Sodium [Moles/Vol] 139 mmol/L Normal 136-145 [facility] Comment on above: Performed By: #### C BC, BMP, BNP, HS TROP, CK #### [facility] [address] [place] [address] [place] Urea nitrogen [Mass/Vol] 14 mg/dL Normal 7-25 [facility] Comment on above: Performed By: #### C BC, BMP, BNP, HS TROP, CK #### [facility] [address] Basophils Auto (Bld) [#/Vol] Ordered By: Damien Hercules on 2022 Basophils (Bld) [#/Vol] 0.1 10*3/uL 0.0-0.2 [facility] Basophils/100 WBC Auto (Bld) Ordered By: Damien Hercules on 2022 Basophils/100 WBC (Bld) 1.0 % . [facility] Calcium [Mass/volume] in Ser um or PlasmaOrdered By: Damien Hercules on 2022 Calcium [Mass/Vol] 9.0 mg/dL 8.6-10.3 [facility] Carbon dioxide, total [Moles /volume] in Serum or PlasmaOrdered By: Damien Hercules on 2022 CO2 [Moles/Vol] 26.2 mmol/L 21.0-31.0 [facility] Chloride [Moles/volume] in S luke or PlasmaOrdered By: Damien Hercules on 2022 Chloride [Moles/Vol] 106 mmol/L 98-107 [facility] Coagulation Profileon 2022 aPTT Coag (Bld) [Time] 29.0 s Normal 25.1-36.5 [facility] Comment on above: Order Comment: REDRA W Result Comment: A he matocrit value greater than 55% may lead to inaccurate results in coagulation testing. Patients having hematocrit values >55% require a special collection tube for coagulation studies. Please contact the laboratory at [phone] for redraw instructions. PERFORMED BY: [place] [address] PATHOLOGIST [employer] ROSCOE CASTRO M.D. Performed By: #### C BC, BMP, BNP, HS TROP, CK #### [facility] [address] [place] [address] INR Coag (PPP) [Relative time] 1.0 {INR} Normal [facility] Comment on above: Order Comment: REDRA [...] BC, BMP, BNP, HS TROP, CK #### [address] PT Coag (PPP) [Time] 12.4 s Normal 9.0-12.9 [facility] Comment on above: Order Comment: REDRA W Result Comment: A he matocrit value greater than 55% may lead to inaccurate results in coagulation testing. Patients having hematocrit values >55% require a special collection tube for coagulation studies. Please contact the laboratory at [phone] for redraw instructions. Performed By: #### C BC, BMP, BNP, HS TROP, CK #### [address] Complete Blood Count Auto Di ffon 2022 Basophils (Bld) [#/Vol] 0.1 10*3/uL Normal 0.0-0.2 [facility] Comment on above: Result Comment: PERF ORMED BY: [place] [address] PATHOLOGIST [employer] ROSCOE CASTRO M.D. Performed By: #### C BC, BMP, BNP, HS TROP, CK #### [address] Basophils/100 WBC (Bld) 1.0 % Normal . [facility] Comment on above: Performed By: #### C BC, BMP, BNP, HS TROP, CK #### [address] Eosinophils (Bld) [#/Vol] 0.3 10*3/uL Normal 0.0-0.45 [facility] Comment on above: Performed By: #### C BC, BMP, BNP, HS TROP, CK #### [address] Eosinophils/100 WBC (Bld) 2.9 % Normal . [facility] Comment on above: Performed By: #### C BC, BMP, BNP, HS TROP, CK #### [address] Erythrocyte distribution width (RBC) [Ratio] 14.8 % Normal 12.0-14.8 [facility] Comment on above: Performed By: #### C BC, BMP, BNP, HS TROP, CK #### [facility] [address] Hematocrit (Bld) [Volume fraction] 43.8 % Normal 38.8-50.0 [facility] Comment on above: Performed By: #### C BC, BMP, BNP, HS TROP, CK #### [facility] [address] Hemoglobin (Bld) [Mass/Vol] 15.0 g/dL Normal 13.0-17.0 [facility] Comment on above: Performed By: #### C BC, BMP, BNP, HS TROP, CK #### [address] Lymphocytes (Bld) [#/Vol] 1.8 10*3/uL Normal 1.00-4.8 [facility] Comment on above: Performed By: #### C BC, BMP, BNP, HS TROP, CK #### [address] Lymphocytes/100 WBC (Bld) 19.7 % Normal . [facility] Comment on above: Performed By: #### C BC, BMP, BNP, HS TROP, CK #### [address] MCH (RBC) [Entitic mass] 28.8 pg Normal 27.5-35.2 [facility] Comment on above: Performed By: #### C BC, BMP, BNP, HS TROP, CK #### [address] MCV (RBC) [Entitic vol] 84.1 fL Normal 83.5-101 [facility] Comment on above: Performed By: #### C BC, BMP, BNP, HS TROP, CK #### [address] Mean Corpuscular HGB Conc 34.3 g/dL Normal 32.5-35.6 [facility] Comment on above: Performed By: #### C BC, BMP, BNP, HS TROP, CK #### [facility] [address] [place] [address] Monocytes (Bld) [#/Vol] 0.8 10*3/uL Normal 0.0-0.8 [facility] Comment on above: Performed By: #### C BC, BMP, BNP, HS TROP, CK #### [address] Monocytes/100 WBC (Bld) 20.13 % High 0.00-20.00 [facility] Comment on above: Result Comment: For adults in ED, MDW > 20.0 may be associated with a higher risk of sepsis during the first 12 hrs of hospital admission Performed By: #### C BC, BMP, BNP, HS TROP, CK #### [address] Monocytes/100 WBC (Bld) 9.2 % Normal . [facility] Comment on above: Performed By: #### C BC, BMP, BNP, HS TROP, CK #### [address] Neutrophils (Bld) [#/Vol] 6.2 10*3/uL Normal 1.8-7.7 [facility] Comment on above: Performed By: #### C BC, BMP, BNP, HS TROP, CK #### [place] [address] [place] Neutrophils/100 WBC (Bld) 67.2 % Normal . [facility] Comment on above: Performed By: #### C BC, BMP, BNP, HS TROP, CK #### [facility] [address] [place] [address] [place] NRBC% 0.1 /100{WBC} Normal 0-0.5 [facility] Comment on above: Performed By: #### C BC, BMP, BNP, HS TROP, CK #### [address] Platelet mean volume (Bld) [Entitic vol] 7.7 fL Normal 6.6-10.1 [facility] Comment on above: Performed By: #### C BC, BMP, BNP, HS TROP, CK #### [facility] [address] Platelets (Bld) [#/Vol] 194 10*3/uL Normal 150-450 [facility] Comment on above: Performed By: #### C BC, BMP, BNP, HS TROP, CK #### [facility] [address] RBC (Bld) [#/Vol] 5.21 10*6/uL Normal 3.90-5.60 [facility] Comment on above: Performed By: #### C BC, BMP, BNP, HS TROP, CK #### [facility] [address] WBC (Bld) [#/Vol] 9.2 10*3/uL Normal 4.1-10.5 [facility] Comment on above: Performed By: #### C BC, BMP, BNP, HS TROP, CK #### [facility] [address] Creatine Kinaseon 2022 CK [Catalytic activity/Vol] 111 U/L Normal 30-223 [facility] Comment on above: Performed By: #### C BC, BMP, BNP, HS TROP, CK #### [facility] [address] Creatine kinase [Enzymatic a ctivity/volume] in Serum or PlasmaOrdered By: Damien Hercules on 2022 CK [Catalytic activity/Vol] 111 U/L 30- [facility] Creatinine [Mass/volume] in Serum or PlasmaOrdered By: Damien Hercules on 2022 Creatinine [Mass/Vol] 1.39 mg/dL 0.70-1.30 [facility] ECG 12 lead ECGon 2022 ECG 12 lead ECG [facility] [place] [address] [place] [address] Electrocardiograph Report Signed Patient: Clarence Flores MR#: [id number] : 1960 Acct:[id number] Age/Sex: 61 / M ADM Date: 11/10/22 Loc: Room: 0B8075-3 Type: ADM INOo Attending Dr: Derick Gomes [...] Signed By Damien Hercules DO 0605 Normal [facility] Eosinophils Auto (Bld) [#/Vo l]Ordered By: Damien Hercules on 2022 Eosinophils (Bld) [#/Vol] 0.3 10*3/uL 0.0-0.45 [facility] Eosinophils/100 WBC Auto (Bl d)Ordered By: Damien Hercules on 2022 Eosinophils/100 WBC (Bld) 2.9 % . [facility] Erythrocyte distribution wid th Auto (RBC) [Ratio]Ordered By: Damien Hercules on 2022 Erythrocyte distribution width (RBC) [Ratio] 14.8 % 12.0-14.8 [facility] Glucose Poct Glucometerson 1 Glucose [Mass/Vol] 193 mg/dL Normal [facility] Comment on above: Result Comment: [facility] Glucose Reference Range is dependent on time and content of last meal. Glucose of more than 200 mg/dL in a nonstressed, ambulatory subject supports the diagnosis of Diabetes Mellitus. PERFORMED BY: [place] [address] [place] [address] PATHOLOGIST [employer] ROSCOE CASTRO M.D. Performed By: #### C BC, BMP, BNP, HS TROP, CK #### [address] Glucose [Mass/Vol] 219 mg/dL Normal [facility] Comment on above: Result Comment: [place] om Glucose Reference Range is dependent on time and content of last meal. Glucose of more than 200 mg/dL in a nonstressed, ambulatory subject supports the diagnosis of Diabetes Mellitus. PERFORMED BY: [place] [address] PATHOLOGIST [employer] ROSCOE CASTRO M.D. Performed By: #### C BC, BMP, BNP, HS TROP, CK #### [address] Glucose [Mass/Vol] 388 mg/dL Normal [facility] Comment on above: Result Comment: [place] om Glucose Reference Range is dependent on time and content of last meal. Glucose of more than 200 mg/dL in a nonstressed, ambulatory subject supports the diagnosis of Diabetes Mellitus. PERFORMED BY: [place] [address] PATHOLOGIST [employer] ROSCOE CASTRO M.D. Performed By: #### C BC, BMP, BNP, HS TROP, CK #### [address] Commemt1 Glu2: Cleaned Meter Normal [facility] Comment on above: Result Comment: PERF ORMED BY: [place] [address] PATHOLOGIST [employer] ROSCOE CASTRO M.D. Performed By: #### G LULS #### Point of Care testing , Glucose [Mass/Vol] 250 mg/dL Normal [facility] Comment on above: Result Comment: [place] om Glucose Reference Range is dependent on time and content of last meal. Glucose of more than 200 mg/dL in a nonstressed, ambulatory subject supports the diagnosis of Diabetes Mellitus. Performed By: #### G LULS #### Point of Care testing , Glucose [Mass/volume] in Ser um or PlasmaOrdered By: Damien Hercules on 2022 Glucose [Mass/Vol] 170 mg/dL 70-100 [facility] Comment on above: ADA recommended refe rence rangeRandom Glucose Reference Range is dependent on time and content of last meal. Glucose of more than 200 mg/dL in a nonstressed, ambulatory subject supports the diagnosis of Diabetes Mellitus. Hematocrit Auto (Bld) [Volum e fraction]Ordered By: Damien Hercules on 2022 Hematocrit (Bld) [Volume fraction] 43.8 % 38.8-50.0 [facility] Hemoglobin [Mass/volume] in BloodOrdered By: Damien Hercules on 2022 Hemoglobin (Bld) [Mass/Vol] 15.0 g/dL 13.0-17.0 [facility] INR in Platelet poor plasma by Coagulation assayOrdered By: Damien Hercules on 2022 INR Coag (PPP) [Relative time] 1.0 {INR} [facility] Comment on above: INR Therapeutic Rang [...] RBC Auto (Bld) [#/Vol] 9.2 10*3/uL 4.1-10.5 [facility] Lipid Panelon 2022 Cholesterol [Mass/Vol] 143 mg/dL Normal 140-200 [facility] Comment on above: Order Comment: Comme nt add Result Comment: Chol less than 200 mg/dl low risk Chol 201-239 mg/dl borderline risk Chol 240 mg/dl and greater high risk Performed By: #### C BC, BMP, BNP, HS TROP, CK #### [facility] [address] Cholesterol in HDL [Mass/Vol] 29 mg/dL Normal 23-92 [facility] Comment on above: Order Comment: Comme nt add Result Comment: HDL CHOL ATP-III CLASSIFICATION Cardiovascular Risk HDL > or equal to 60 mg/dL LOW HDL < 40 mg/dL HIGH Performed By: #### C BC, BMP, BNP, HS TROP, CK #### [facility] [address] Cholesterol.total/Chol esterol in HDL [Mass ratio] 4.9 {ratio} Normal <5.0 [facility] Comment on above: Order Comment: Comme nt add Result Comment: PERF ORMED BY: [place] [address] PATHOLOGIST [employer] ROSCOE CASTRO M.D. Performed By: #### C BC, BMP, BNP, HS TROP, CK #### [facility] [address] LDL Cholesterol,Calculated 87 mg/dL Normal 0-100 [facility] Comment on above: Order Comment: Comme nt add Result Comment: LDL ATP III CLASSIFICATION LDL less than 100 mg/dL Optimal LDL 100-129 mg/dL Near or above optimal LDL 130-159 mg/dL Borderline high LDL 160-189 mg/dL High LDL greater than 189 mg/dL Very high Performed By: #### C BC, BMP, BNP, HS TROP, CK #### [facility] [address] Triglyceride w/Reflex 133 mg/dL Normal 0-149 [facility] Comment on above: Order Comment: Comme nt add Result Comment: TRIG ATP III CLASSIFICATION TRIG less than 150 mg/dL Normal TRIG 150-199 mg/dL Borderline high TRIG 200-500 mg/dL High TRIG greater than 500 mg/dL Very high Standard traceable to the Center for Disease Conrtrol and Prevention (CDC) test method. Performed By: #### C BC, BMP, BNP, HS TROP, CK #### [facility] [address] VLDL CHOLESTEROL 26 mg/dL Normal [facility] Comment on above: Order Comment: Comme nt add Performed By: #### C BC, BMP, BNP, HS TROP, CK #### [facility] [address] Lymphocytes Auto (Bld) [#/Vo l]Ordered By: Damien Hercules on 2022 Lymphocytes (Bld) [#/Vol] 1.8 10*3/uL 1.00-4.8 [facility] Lymphocytes/100 WBC Auto (Bl d)Ordered By: Damien Hercules on 2022 Lymphocytes/100 WBC (Bld) 19.7 % . [facility] MCH Auto (RBC) [Entitic mass ]Ordered By: Damien Hercules on 2022 MCH (RBC) [Entitic mass] 28.8 pg 27.5-35.2 [facility] MCHC Auto (RBC) [Mass/Vol]Or dered By: Damien Hercules on 2022 MCHC (RBC) [Mass/Vol] 34.3 g/dL 32.5-35.6 [facility] MCV Auto (RBC) [Entitic vol] Ordered By: Damien Hercules on 2022 MCV (RBC) [Entitic vol] 84.1 fL 83.5-101 [facility] Monocyte distribution width [Entitic volume] in Blood by AutomatedOrdered By: Damien Hercules on 2022 Monocyte distribution width Auto (Bld) [Entitic vol] 20.13 % 0.00-20.00 [facility] Comment on above: For adults in ED, MD W > 20.0 may be associated with a higher risk of sepsis during the first 12 hrs of hospital admission Monocytes Auto (Bld) [#/Vol] Ordered By: Damien Hercules on 2022 Monocytes (Bld) [#/Vol] 0.8 10*3/uL 0.0-0.8 [facility] Monocytes/100 WBC Auto (Bld) Ordered By: Damien Hercules on 2022 Monocytes/100 WBC (Bld) 9.2 % . [facility] Natriuretic peptide B [Mass/ Vol]Ordered By: Damien Hercules on 2022 Natriuretic peptide B (Bld) [Mass/Vol] 101.0 pg/mL 5-100 [facility] Neutrophils Auto (Bld) [#/Vo l]Ordered By: Damien Hercules on 2022 Neutrophils (Bld) [#/Vol] 6.2 10*3/uL 1.8-7.7 [facility] Neutrophils/100 WBC Auto (Bl d)Ordered By: Damien Hercules on 2022 Neutrophils/100 WBC (Bld) 67.2 % . [facility] No Panel InformationOrdered By: Damien Hercules on 2022 Estimated GFR (CKD-EPI) 58.037 mL/Min [facility] Pharmacy Creatinine Clearance (Chem 72.10 [facility] Nucleated erythrocytes [Pres ence] in Blood by Automated countOrdered By: Damien Hercules on 2022 Nucleated RBC Auto Ql (Bld) 0.1 /100{WBC} 0-0.5 [facility] Platelet mean volume Auto (B ld) [Entitic vol]Ordered By: Damein Hercules on 2022 Platelet mean volume (Bld) [Entitic vol] 7.7 fL 6.6-10.1 [facility] Platelets Auto (Bld) [#/Vol] Ordered By: Damien Hercules on 2022 Platelets (Bld) [#/Vol] 194 10*3/uL 150-450 [facility] Potassium [Moles/volume] in Serum or PlasmaOrdered By: Damien Hercules on 2022 Potassium [Moles/Vol] 3.6 mmol/L 3.5-5.1 [facility] Prothrombin time (PT)Ordered By: Damien Hercules on 2022 PT Coag (PPP) [Time] 12.4 s 9.0-12.9 [facility] Comment on above: A hematocrit value g reater than 55% may lead to inaccurate results in coagulation testing. Patients having hematocrit values >55% require a special collection tube for coagulation studies. Please contact the laboratory at [phone] for redraw instructions. RBC Auto (Bld) [#/Vol]Ordere d By: Damien Hercules on 2022 RBC (Bld) [#/Vol] 5.21 10*6/uL 3.90-5.60 [facility] Serum or plasma anion gap de terminationOrdered By: Damien Hercules on 2022 Anion gap [Moles/Vol] 10.4 mmol/L 6.0-15.0 [facility] Sodium [Moles/volume] in Ser um or PlasmaOrdered By: Damien Hercules on 2022 Sodium [Moles/Vol] 139 mmol/L 136-145 [facility] Troponin I High Sensitivityo n 2022 Troponin I High Sensitivity 10.1 pg/mL Normal 0.0-20.0 [facility] Comment on above: Result Comment: PERF ORMED BY: [place] [address] PATHOLOGIST [employer] ROSCOE CASTRO M.D. Performed By: #### H S TROP #### [facility] [address] [place] [address] Troponin I High Sensitivity 13.0 pg/mL Normal 0.0-20.0 [facility] Comment on above: Result Comment: PERF ORMED BY: [place] [address] PATHOLOGIST [employer] ROSCOE CASTRO M.D. Performed By: #### H S TROP #### [facility] [address] [place] [address] Troponin I High Sensitivity 15.8 pg/mL Normal 0.0-20.0 [facility] Comment on above: Result Comment: PERF ORMED BY: [place] [address] PATHOLOGIST [employer] ROSCOE CASTRO M.D. Performed By: #### C BC, BMP, BNP, HS TROP, CK #### [facility] [address] [place] [address] Troponin I.cardiac [Mass/vol ume] in Serum or Plasma by Detection limit <= 0.01 ng/Ordered By: Damien Hercules on 10-01-2023 Troponin I.cardiac DL <= 0.01 ng/mL [Mass/Vol] 15.8 pg/mL 0.0-20.0 [facility] [facility] Urea nitrogen [Mass/volume] in Serum or PlasmaOrdered By: Damien Hercules on 2022 Urea nitrogen [Mass/Vol] 14 mg/dL 7-25 [facility] WBC Auto (Bld) [#/Vol]Ordere d By: Damien Hercules on 2022 WBC (Bld) [#/Vol] 9.2 10*3/uL 4.1-10.5 [facility] XR chest 2V*on 2022 XR chest 2V* [facility] [place] [address] XRay Report Signed Patient: Clarence Flores MR#: [id number] : 1960 Acct:[id number] Age/Sex: 62 / M ADM Date: 11/10/22 Loc: Room: [address] [place] [address] Type: ADM INOo Attending Dr: Maura Venegas [...] Oreilly Jr., D.O.11/10/2022 10:13 AM Dictation Location: [place] [address] Transcribed By: [facility] 11/10/22 1013 Dictated By: Ruel Oreilly Jr, DO 11/10/22 1012 Signed By: 11/10/22 1013 Normal [facility] CBC AUTO DIFFon 11-24-2021 BASO # 0.0 103/ul Normal 0.0-0.1 [facility] Comment on above: Performed By: #### C BC #### [facility] [address] [place] [address] Dr. Sunny Ortez Basophils/100 WBC (Bld) 0.5 % Normal 0.2-2.0 [facility] Comment on above: Performed By: #### C BC #### [facility] [address] [place] [address] Dr. Sunny Ortez EO # 0.4 103/ul Normal 0.0-0.7 [facility] Comment on above: Performed By: #### C BC #### [facility] [address] [place] [address] Dr. Sunny Ortez Eosinophils/100 WBC (Bld) 4.6 % Normal 0.9-7.0 [facility] Comment on above: Performed By: #### C BC #### [facility] [address] [place] [address] Dr. Sunny Ortez Erythrocyte distribution width (RBC) [Ratio] 14.2 % Normal 11.0-15.0 [facility] Comment on above: Performed By: #### C BC #### [facility] [address] [place] [address] Dr. Sunny Ortez Hematocrit (Bld) [Volume fraction] 45.8 % Normal 42.0-54.0 [facility] Comment on above: Performed By: #### C BC #### [facility] [address] [place] [address] Dr. Sunny Ortez Hemoglobin (Bld) [Mass/Vol] 15.1 g/dL Normal 14.0-18.0 [facility] Comment on above: Performed By: #### C BC #### [facility] [address] [place] [address] Dr. Sunny Ortez IG # 0.02 10e3/ul Normal 0.00-0.03 [facility] Comment on above: Performed By: #### C BC #### [facility] [address] [place] [address] Dr. Sunny Ortez IG % 0.2 % Normal 0.0-0.5 [facility] Comment on above: Performed By: #### C BC #### [facility] [address] [place] [address] Dr. Sunny Ortez LYMPH # 1.7 103/ul Normal 1.2-3.8 [facility] Comment on above: Performed By: #### C BC #### [facility] [address] [address] [address] Sunny Ortez Lymphocytes/100 WBC (Bld) 20.2 % Critically low 20.5-60.0 [facility] Comment on above: Performed By: #### C BC #### [facility] [address] [place] [address] Dr. Sunny Ortez MANUAL DIFF REQ NO Normal [facility] Comment on above: Performed By: #### C BC #### [facility] [address] [place] [address] Dr. Sunny Ortez MCH (RBC) [Entitic mass] 27.7 pg Normal 25.9-34.0 [facility] Comment on above: Performed By: #### C BC #### [facility] [address] [place] [address] Dr. Sunny Ortez MCHC (RBC) [Mass/Vol] 33.0 g/dL Normal 29.9-35.2 [facility] Comment on above: Performed By: #### C BC #### [facility] [address] [place] [address] Dr. Sunny Ortez MCV (RBC) [Entitic vol] 83.9 fL Normal 80.0-94.0 [facility] Comment on above: Performed By: #### C BC #### [facility] [address] [place] [address] Dr. Sunny Ortez MONO # 0.7 103/ul Normal 0.3-0.8 [facility] Comment on above: Performed By: #### C BC #### [facility] [address] [place] [address] Dr. Sunny Ortez Monocytes/100 WBC (Bld) 8.0 % Normal 1.7-12.0 [facility] Comment on above: Performed By: #### C BC #### [facility] [address] [address] [address] Sunny Ortez NEUT # 5.6 103/ul Normal 1.4-6.5 [facility] Comment on above: Performed By: #### C BC #### [facility] [address] [address] [address] Sunny Ortez Neutrophils/100 WBC (Bld) 66.5 % Normal 43.0-75.0 [facility] Comment on above: Performed By: #### C BC #### [facility] [address] [address] [address] Sunny Ortez Platelet mean volume (Bld) [Entitic vol] 9.1 fL Critically low 9.5-13.5 [facility] Comment on above: Performed By: #### C BC #### [facility] [address] [place] [address] Dr. Sunny Ortez PLT 215 103/ul Normal 150-450 [facility] Comment on above: Performed By: #### C BC #### [facility] [address] [place] [address] Dr. Sunny Ortez RBC 5.46 106/ul Normal 4.70-6.10 [facility] Comment on above: Performed By: #### C BC #### [facility] [address] [place] [address] Dr. Sunny Ortez WBC 8.4 103/ul Normal 4.0-11.0 [facility] Comment on above: Performed By: #### C BC #### [facility] [address] [place] [address] Dr. Sunny Ortez GLYCOHEMOGLOBIN A1Con 2021 ADA RECOMMENDATION SEE BELOW Normal [facility] Comment on above: Result Comment: ADA RECOMMENDED LIMIT 4.0 - 6.0 ADA THERAPEUTIC TARGET < 7.0 ACTION SUGGESTED > 7.0 Performed By: #### A 1C #### [facility] [address] [place] [address] Dr. Sunny Ortez Glucose [Mass/Vol] 117 mg/dL Normal [facility] Comment on above: Performed By: #### A 1C #### [facility] [address] [place] [address] Dr. Sunny Ortez HbA1c (Bld) [Mass fraction] 5.7 % Normal 4.5-6.2 [facility] Comment on above: Performed By: #### A 1C #### [facility] [address] [place] [address] Dr. Sunny Ortez PROF 14(COMP METB)on 11-24- 022 Albumin [Mass/Vol] 3.7 g/dL Normal 3.4-5.0 [facility] Comment on above: Performed By: #### C MP #### [facility] [address] [place] [address] Dr. Sunny Ortez Albumin/Globulin [Mass ratio] 1.0 {ratio} Normal [facility] Comment on above: Performed By: #### C MP #### [facility] [address] [place] [address] Dr. Sunny Ortez ALP [Catalytic activity/Vol] 61 U/L Normal 46-116 [facility] Comment on above: Performed By: #### C MP #### [facility] [address] [place] [address] Dr. Sunny Ortez ALT [Catalytic activity/Vol] 42 U/L Normal 16-63 [facility] Comment on above: Performed By: #### C MP #### [facility] [address] [place] [address] Dr. Sunny Ortez Anion gap [Moles/Vol] 8.1 mmol/L Normal [facility] Comment on above: Performed By: #### C MP #### [facility] [address] [place] [address] Dr. Sunny Ortez AST [Catalytic activity/Vol] 28 U/L Normal 15-37 [facility] Comment on above: Performed By: #### C MP #### [facility] [address] [place] [address] Dr. Sunny Ortez Bilirubin [Mass/Vol] 0.5 mg/dL Normal 0.2-1.0 [facility] Comment on above: Performed By: #### C MP #### [facility] [address] [place], [place] [id number] Dr. Sunny Ortez Calcium [Mass/Vol] 8.7 mg/dL Normal 8.5-10.1 [facility] Comment on above: Performed By: #### C MP #### [facility] [address] [place] [address] Dr. Sunny Ortez Chloride [Moles/Vol] 107 mmol/L Normal 98-107 [facility] Comment on above: Performed By: #### C MP #### [facility] [address] [place] [address] Dr. Sunny Ortez CO2 [Moles/Vol] 30.0 mmol/L Normal 21.0-32.0 [facility] Comment on above: Performed By: #### C MP #### [facility] [address] [place] [address] Dr. Sunny Ortez Creatinine [Mass/Vol] 1.29 mg/dL Normal 0.70-1.30 [facility] Comment on above: Performed By: #### C MP #### [facility] [address] [place] [address] Dr. Sunny Ortez EGFR-AF PUERTO RICAN >60 Normal >=60 [facility] Comment on above: Performed By: #### C MP #### [facility] [address] [place] [address] Dr. Sunny Oretz EGFR-NON AF PUERTO RICAN 57 mL/min/1.73m2 Critically low >=60 [facility] Comment on above: Performed By: #### C MP #### [facility] [address] [place] [address] Dr. Sunny Ortez Globulin (S) [Mass/Vol] 3.7 g/dL Normal [facility] Comment on above: Performed By: #### C MP #### [facility] [address] [place] [address] Dr. Sunny Ortez Glucose [Mass/Vol] 108 mg/dL Critically high 74-106 T [facility] Comment on above: Performed By: #### C MP #### [facility] [address] [place] [address] Dr. Sunny Ortez Potassium [Moles/Vol] 4.1 mmol/L Normal 3.5-5.1 [facility] Comment on above: Performed By: #### C MP #### [facility] [address] [place] [address] Dr. Sunny Ortez Protein [Mass/Vol] 7.4 g/dL Normal 6.4-8.2 [facility] Comment on above: Performed By: #### C MP #### [facility] [address] [place] [address] Dr. Sunny Ortez Sodium [Moles/Vol] 141 mmol/L Normal 136-145 [facility] Comment on above: Performed By: #### C MP #### [facility] [address] [place] [address] Dr. Sunny Ortez Urea nitrogen [Mass/Vol] 16.0 mg/dL Normal 7.0-18.0 [facility] Comment on above: Performed By: #### C MP #### [facility] [address] [place] [address] Dr. Sunny Ortez Urea nitrogen/Creatinine [Mass ratio] 12.4 mg/mg Normal [facility] Comment on above: Performed By: #### C MP #### [facility] [address] [place] [address] Dr. Sunny Ortez OCC BLD IMMUNO SCREENon 10-12 OCCULT BLOOD Negative Normal NEGATIVE [facility] Comment on above: Performed By: #### O BSCRN #### [facility] [address] [place] [address] Dr. Sunny Ortez [facility]on [facility]-12 SARS-CoV-2 (COVID-19) RNA RENÉE+probe Ql (Unsp spec) Not detected Normal NOT DETECTED [facility] Comment on above: Result Comment: When [...] for this test is supported by the [employer] and Human Service's declaration that [...] used). Performed By: #### C MP #### [facility] [address] [address] [address] Sunny Ortez MRI ABDOMEN W CONon 05-07-19 MRI ABDOMEN W CON EXAMINATION: MRI ABD [...] ELVIN JENKINS Date: 2021-05-06 07:49 Normal [facility] CREATININEon 05-04-2021 Creatinine [Mass/Vol] 1.37 mg/dL Critically high 0.66-1.25 [facility] Comment on above: Performed By: #### C ALISHA #### [facility] [address] [address] [address] Sunny Ortez EGFR-AF PUERTO RICAN >60 Normal >=60 [facility] Comment on above: Performed By: #### C ALISHA #### [facility] [address] [address] [address] Sunny Ortez EGFR-NON AF PUERTO RICAN 53 mL/min/1.73m2 Critically low >=60 [facility] Comment on above: Performed By: #### C ALISHA #### [facility] [address] [address] [address] Sunny Ortez CREATININEon 04-12-2021 Creatinine [Mass/Vol] 1.28 mg/dL Critically high 0.66-1.25 [facility] Comment on above: Performed By: #### C ALISHA #### [facility] [address] [address] [address] Sunny Ortez EGFR-AF PUERTO RICAN >60 Normal >=60 [facility] Comment on above: Performed By: #### C ALISHA #### [facility] [address] [address] [address] Sunny Ortez EGFR-NON AF PUERTO RICAN 58 mL/min/1.73m2 Critically low >=60 [facility] Comment on above: Performed By: #### C ALISHA #### [facility] [address] [address] [address] Sunny Ortez MRI ABDOMEN WO CONon [...] STEVE COLLADO Date: 2021-04-12 14:39 [address] [facility] [address] ABD/PELV W CONon 03-28-19 22 [...] mild inflammatory changes. Consider cystitis Normal [facility] INSULINon 03-26-2021 Insulin 30.7 uIU/mL Critically high 2.6-24.9 [facility] Comment on above: Performed By: #### I NSULIN #### [facility] [address] [place] [address] Dr. Sunny Ortez XR KNEE LT 4V [...] STEVE PALACIOS Date: 2021-03-25 17:14 Normal [facility] BNPon 03-24-2021 Natriuretic peptide B (Bld) [Mass/Vol] 202.0 pg/mL Normal <=900.0 [facility] Comment on above: Performed By: #### C MP #### [facility] [address] [place] [address] Dr. Sunny Ortez CBC AUTO DIFFon 03-24-2021 BASO # 0.1 103/ul Normal 0.0-0.1 [facility] Comment on above: Performed By: #### C BC #### [facility] [address] [place] [address] Dr. Sunny Ortez Basophils/100 WBC (Bld) 0.8 % Normal 0.2-2.0 [facility] Comment on above: Performed By: #### C BC #### [facility] [address] [place] [address] Dr. Sunny Ortez EO # 0.5 103/ul Normal 0.0-0.7 [facility] Comment on above: Performed By: #### C BC #### [facility] [address] [place] [address] Dr. Sunny Ortez Eosinophils/100 WBC (Bld) 4.6 % Normal 0.9-7.0 [facility] Comment on above: Performed By: #### C BC #### [facility] [address] [place] [address] Dr. Sunny Ortez Erythrocyte distribution width (RBC) [Ratio] 13.6 % Normal 11.0-15.0 [facility] Comment on above: Performed By: #### C BC #### [facility] [address] [place] [address] Dr. Sunny Ortez Hematocrit (Bld) [Volume fraction] 45.6 % Normal 42.0-54.0 [facility] Comment on above: Performed By: #### C BC #### [facility] [address] [place] [address] Dr. Sunny Ortez Hemoglobin (Bld) [Mass/Vol] 15.2 g/dL Normal 14.0-18.0 [facility] Comment on above: Performed By: #### C BC #### [facility] [address] [place] [address] Dr. Sunny Ortez IG # 0.04 10e3/ul Critically high 0.00-0.03 [facility] Comment on above: Performed By: #### C BC #### [facility] [address] [place] [address] Dr. Sunny Ortez IG % 0.4 % Normal 0.0-0.5 [facility] Comment on above: Performed By: #### C BC #### [facility] [address] [place] [address] Dr. Sunny Ortez LYMPH # 1.9 103/ul Normal 1.2-3.8 [facility] Comment on above: Performed By: #### C BC #### [facility] [address] [place] [address] Dr. Sunny Ortez Lymphocytes/100 WBC (Bld) 18.4 % Critically low 20.5-60.0 [facility] Comment on above: Performed By: #### C BC #### [facility] [address] [place] [address] Dr. Sunny Ortez MANUAL DIFF REQ NO Normal [facility] Comment on above: Performed By: #### C BC #### [facility] [address] [place] [address] Dr. Sunny Ortez MCH (RBC) [Entitic mass] 27.9 pg Normal 25.9-34.0 [facility] Comment on above: Performed By: #### C BC #### [facility] [address] [address] [address] Sunny Ortez MCHC (RBC) [Mass/Vol] 33.3 g/dL Normal 29.9-35.2 [facility] Comment on above: Performed By: #### C BC #### [facility] [address] [address] [address] Sunny Ortez MCV (RBC) [Entitic vol] 83.7 fL Normal 80.0-94.0 [facility] Comment on above: Performed By: #### C BC #### [facility] [address] [address] [address] Sunny Ortez MONO # 0.8 103/ul Normal 0.3-0.8 [facility] Comment on above: Performed By: #### C BC #### [facility] [address] [address] [address] Sunny Ortez Monocytes/100 WBC (Bld) 8.0 % Normal 1.7-12.0 [facility] Comment on above: Performed By: #### C BC #### [facility] [address] [place] [address] Dr. Sunny Ortez NEUT # 7.0 103/ul Critically high 1.4-6.5 [facility] Comment on above: Performed By: #### C BC #### [facility] [address] [address] [address] Sunny Ortez Neutrophils/100 WBC (Bld) 67.8 % Normal 43.0-75.0 [facility] Comment on above: Performed By: #### C BC #### [facility] [address] [address] [address] Sunny Ortez Platelet mean volume (Bld) [Entitic vol] 9.5 fL Normal 9.5-13.5 [facility] Comment on above: Performed By: #### C BC #### [facility] [address] [address] [address] Sunny Ortez PLT 322 103/ul Normal 150-450 [facility] Comment on above: Performed By: #### C BC #### [facility] [address] [address] [address] Sunny Ortez RBC 5.45 106/ul Normal 4.70-6.10 [facility] Comment on above: Performed By: #### C BC #### [facility] [address] [address] [address] Sunny Ortez WBC 10.4 103/ul Normal 4.0-11.0 [facility] Comment on above: Performed By: #### C BC #### [facility] [address] [address] [address] Sunny Ortez FREE THYROXINE INDEX T7on FTI 3.01 Normal [facility] Comment on above: Performed By: #### C MP #### [facility] [address] [place] [address] Dr. Sunny Ortez T3U 35.0 % Normal 23.5-40.5 [facility] Comment on above: Performed By: #### C MP #### [facility] [address] [place] [address] Dr. Sunny Ortez T4 [Mass/Vol] 8.60 ug/dL Normal 5.53-11.00 [facility] Comment on above: Performed By: #### C MP #### [facility] [address] [place] [address] Dr. Sunny Ortez GLYCOHEMOGLOBIN A1Con 2021 ADA RECOMMENDATION ADA THERAPEUTIC TARG ET 6.0 - 7.0 ACTION SUGGESTED > 7.0 Normal [facility] Comment on above: Performed By: #### A 1C #### [facility] [address] [place] [address] Dr. Sunny Ortez Glucose [Mass/Vol] 197 mg/dL Normal [facility] Comment on above: Performed By: #### A 1C #### [facility] [address] [place] [address] Dr. Sunny Ortez HbA1c (Bld) [Mass fraction] 8.5 % Critically high <=6.0 [facility] Comment on above: Performed By: #### A 1C #### [facility] [address] [address] [address] Sunny Ortez LIPID PROFILEon 03-24-2021 CHOL-HDL RATIO NORM SEE BELOW Normal [facility] Comment on above: Result Comment: 3.3 - 4.4 LOW RISK 4.4 - 7.1 AVERAGE RISK 7.1 - 11.0 MODERATE RISK >11.0 HIGH RISK Performed By: #### C MP #### [facility] [address] [address] [address] Sunny Ortez Cholesterol [Mass/Vol] 150 mg/dL Normal <=200 [facility] Comment on above: Performed By: #### C MP #### [facility] [address] [place] [address] Dr. Sunny Ortez Cholesterol in HDL [Mass/Vol] 30 mg/dL Normal [facility] Comment on above: Performed By: #### C MP #### [facility] [address] [place] [address] Dr. Sunny Ortez Cholesterol in LDL [Mass/Vol] 96.8 mg/dL Normal [facility] Comment on above: Performed By: #### C MP #### [facility] [address] [place] [address] Dr. Sunny Ortez Cholesterol.total/Chol esterol in HDL [Mass ratio] 5.0 {ratio} Normal [facility] Comment on above: Performed By: #### C MP #### [facility] [address] [place] [address] Dr. Sunny Ortez HDL NORMAL > or = 60 mg/dl - LO W CARDIOVASCULAR RISK <40 mg/dl - HIGH CARDIOVASCULAR RISK Normal [facility] Comment on above: Performed By: #### C MP #### [facility] [address] [place] [address] Dr. Sunny Ortez LDL CALC NORMAL SEE BELOW Normal [facility] Comment on above: Result Comment: <100 mg/dl OPTIMAL 100 - 129 mg/dl NEAR OR ABOVE OPTIMAL 130 - 159 mg/dl BORDERLINE HIGH 160 - 189 mg/dl HIGH >190 mg/dl VERY HIGH Performed By: #### C MP #### [facility] [address] [place] [address] Dr. Sunny Ortez Triglyceride [Mass/Vol] 116 mg/dL Normal <=150 [facility] Comment on above: Performed By: #### C MP #### [facility] [address] [place] [address] Dr. Sunny Ortez VLDL CALC 23.2 mg/dL Normal [facility] Comment on above: Performed By: #### C MP #### [facility] [address] [place] [address] Dr. Sunny Ortez PROF 14(COMP METB)on 022 Albumin [Mass/Vol] 3.5 g/dL Normal 3.5-5.0 [facility] Comment on above: Performed By: #### C MP #### [facility] [address] [place] [address] Dr. Sunny Ortez Albumin/Globulin [Mass ratio] 1.0 {ratio} Normal [facility] Comment on above: Performed By: #### C MP #### [facility] [address] [place] [address] Dr. Sunny Ortez ALP [Catalytic activity/Vol] 73 U/L Normal 38-126 [facility] Comment on above: Performed By: #### C MP #### [facility] [address] [place] [address] Dr. Sunny Ortez ALT [Catalytic activity/Vol] 28 U/L Normal 21-72 [facility] Comment on above: Performed By: #### C MP #### [facility] [address] [place] [address] Dr. Sunny Ortez Anion gap [Moles/Vol] 14.7 mmol/L Normal [facility] Comment on above: Performed By: #### C MP #### [facility] [address] [place] [address] Dr. Sunny Ortez AST [Catalytic activity/Vol] 13 U/L Critically low 17-59 [facility] Comment on above: Performed By: #### C MP #### [facility] [address] [place] [address] Dr. Sunny Ortez Bilirubin [Mass/Vol] 0.7 mg/dL Normal 0.2-1.3 [facility] Comment on above: Performed By: #### C MP #### [facility] [address] [place] [address] Dr. Sunny Ortez Calcium [Mass/Vol] 8.6 mg/dL Normal 8.4-10.2 [facility] Comment on above: Performed By: #### C MP #### [facility] [address] [place] [address] Dr. Sunny Ortez Chloride [Moles/Vol] 105 mmol/L Normal 98-107 [facility] Comment on above: Performed By: #### C MP #### [facility] [address] [place] [address] Dr. Sunny Ortez CO2 [Moles/Vol] 23.6 mmol/L Normal 22.0-30.0 [facility] Comment on above: Performed By: #### C MP #### [facility] [address] [place] [address] Dr. Sunny Ortez Creatinine [Mass/Vol] 1.33 mg/dL Critically high 0.66-1.25 [facility] Comment on above: Performed By: #### C MP #### [facility] [address] [place] [address] Dr. Sunny Ortez EGFR-AF PUERTO RICAN >60 Normal >=60 [facility] Comment on above: Performed By: #### C MP #### [facility] [address] [place] [address] Dr. Sunny Ortez EGFR-NON AF PUERTO RICAN 55 mL/min/1.73m2 Critically low >=60 [facility] Comment on above: Performed By: #### C MP #### [facility] [address] [place] [address] Dr. Sunny Ortez Globulin (S) [Mass/Vol] 3.6 g/dL Normal [facility] Comment on above: Performed By: #### C MP #### [facility] [address] [place] [address] Dr. Sunny Ortez Glucose [Mass/Vol] 253 mg/dL Critically high 74-106 [facility] Comment on above: Performed By: #### C MP #### [facility] [address] [address] [address] Sunny Ortez Potassium [Moles/Vol] 4.3 mmol/L Normal 3.4-5.0 [facility] Comment on above: Performed By: #### C MP #### [facility] [address] [address] [address] Sunny Ortez Protein [Mass/Vol] 7.1 g/dL Normal 6.1-8.2 [facility] Comment on above: Performed By: #### C MP #### [facility] [address] [address] [address] Sunny Ortez Sodium [Moles/Vol] 139 mmol/L Normal 137-145 [facility] Comment on above: Performed By: #### C MP #### [facility] [address] [place] [address] Dr. Sunny Ortez Urea nitrogen [Mass/Vol] 18.0 mg/dL Normal 9.0-20.0 [facility] Comment on above: Performed By: #### C MP #### [facility] [address] [place] [address] Dr. Sunny Ortez Urea nitrogen/Creatinine [Mass ratio] 13.5 mg/mg Normal [facility] Comment on above: Performed By: #### C MP #### [facility] [address] [place] [address] Dr. Sunny Ortez TSHon 03-24-2021 TSH 1.335 uIU/mL Normal 0.470-4.68 0 [facility] Comment on above: Performed By: #### C MP #### [facility] [address] [place] [address] Dr. Sunny Ortez TSH RANGE SEE BELOW Normal [facility] Comment on above: Result Comment: <0.3 4 UIU/ml HYPERTHYROID 0.34-5.60 UIU/ml EUTHYROID >5.60 UIU/ml HYPOTHYROID Performed By: #### C MP #### [facility] [address] [place] [address] Dr. Sunny Ortez URIC ACID SERUMon 03-24-2021 Urate [Mass/Vol] 4.9 mg/dL Normal 3.5-8.5 [facility] Comment on above: Performed By: #### C #### [facility] [address] [address] [address] Sunny Ortez Basic Metabolic Panlon 06-20 Anion gap [Moles/Vol] 11 mmol/L Normal 9-18 [facility] Calcium [Mass/Vol] 8.9 mg/dL Normal 8.5-10.2 [facility] Chloride [Moles/Vol] 106 mmol/L High 97-[address] [facility] CO2 [Moles/Vol] 22 mmol/L Normal 22-30 [facility] Creatinine [Mass/Vol] 1.28 mg/dL High 0.73-1.22 [facility] eGFR- Amer. >60 Normal [facility] GFR/1.73 sq M predicted among non-blacks MDRD (S/P/Bld) [Vol rate/Area] 58 . Normal [facility] Comment on above: Result Comment: eGFR (Estimated [...] GFR. Glucose [Mass/Vol] 148 mg/dL High 74-99 [facility] Comment on above: Result Comment: The [place] Diabetes Association (ADA) provides guidance for cutoff [...] Standards of Medical Care in Diabetes 2016, [place] Diabetes Association. Diabetes Care. 2016.39(Suppl 1). Potassium [Moles/Vol] 4.5 mmol/L Normal 3.7-5.1 [facility] Sodium [Moles/Vol] 139 mmol/L Normal 136-144 [facility] Urea nitrogen [Mass/Vol] 10 mg/dL Normal 9-24 [facility] CNPNon 06-21-2019 CNPN Telephone (UROLMN) -- CLARENCE FLORES ([id number]) 1960 M Date Time Provider Department 06/21/19 DIANE DILLON PA-C During your visit today, we recorded the following information about you: Diane Dillon PA-C 06/21/2019 2:[address] and CXR with no recurrence or mets. Repeat CT and CXR in 6M. Patient to schedule on his own at [facility] Dillon PA-C Pager [phone] Office [phone] Allergies As of Date: 06/21/2019 Noted Allergy Reaction NITROGLYCERIN 11/26/2018 14 - Other: See Comments Date Reviewed: 02/05/2019 Reviewed by: Diane Dillon - Fully Assessed Reason for Visit: Results [95] Primary Visit Diagnosis:Left renal mass [N28.89] Other Visit Diagnosis:Renal cell carcinoma of left kidney (HCC) [C64.2] Order(s):XR CHEST 2V FRONTAL/LAT [[id number]] Order #: [id number] FUTURE CT ABD/PEL W IVCON [[id number]] Order #: [id number] FUTURE iv contrast (will be provided with [...] per enteric contrast guidelines Encounter Status:Closed by DECIPEDA PA-C, DIANE C on 06/21/19 Normal [facility] CT ABD/PEL W IVCONon 05-11-[address] ABD/PEL W IVCON * * *Final Report* * * DATE OF EXAM: Jun 21 2019 9:40AM [facility] 0530 - CT ABD/PEL W [...] any questions regarding this interpretation, please call [phone]. If you are unable to reach us at the number above, please feel free to contact [facility] at [phone]. [id number] Normal [facility] PROGRESSon 06-21-2019 PROGRESS HNO ID: [id number] Author: Holly Garcia (Tech) Service: ? Author Type: Supplier Specialist Type: Progress Notes Filed: 06/21/2019 2:25 PM [...] Garcia June 21, 2019 2:24 PM Normal [facility] PROGRESS HNO ID: [id number] Author: Holly Garcia (Tech) Service: ? Author Type: Supplier Specialist Type: Progress Notes Filed: 06/21/2019 9:51 AM [...] given.. PATIENT DISCHARGED TO: Ambulatory patient, left PA department area. A Diagnostic radioactive procedure has taken place, with no further precautions necessary other than routine body substance precautions. More information regarding radiation safety can be found using this link: [email or web address]. pdf SIGNATURE: Holly Garcia PATIENT NAME: Clarence Flores DATE: June 21, 2019 TIME: 8:39 AM PAGER/CONTACT #: Normal [facility] XR CHEST 2V FRONTAL/LATon XR CHEST 2V [...] any questions regarding this interpretation, please call [phone]. If you are unable to reach us at the number above, please feel free to contact [facility]Radiology at [phone]. [id number] Normal [facility] CNPNon 06-17-2019 CNPN Telephone (RADTSA) -- CLARENCE FLORES ([id number]) 1960 M Date Time Provider Department 06/17/19 RIKAMarco AntonioMAICO (HISTORICAL) RICARDO During your visit today, we recorded the following information about you: Clarisse Alicia 06/17/2019 3:19 PM Signed Clarence Flores [id number] is coming in Tuesday 06/20 [address] CTs w/IV on; please sign pending ISTAT BMP as our lab's chemistry will be down that day and he will need CRE clearance prior to. Thanks Clarisse Alicia, metallurgical specialist [facility] Allergies As of Date: 06/17/2019 Noted Allergy Reaction NITROGLYCERIN 11/26/2018 14 - Other: See Comments Date Reviewed: 02/05/2019 Reviewed by: Diane Dunn) Darshana - Fully Assessed Reason for Visit: Orders [681] Primary Visit Diagnosis:Left renal mass [N28.89] Order(s):ISTAT BMP [SQISTBMP] Order #: [id number] FUTURE Prescriptions as of 06/17/2019 Sig: IV [...] Status:Closed by DIANE DILLON PA-C on 06/17/19 [facility] CNOVon 02-05-2019 CNOV Office Visit (UROLMN ) -- CLARENCE FLORES ([id number]) 1960 M Date Time Provider Department 02/05/19 10:50 AM DIANE DILLON) UROGIL During your visit today, we recorded the following information about you: Pulse Blood pressure Weight Height 64/minute 179/81 120.5 kg 1.676 m Diane Dillon PA-C 02/05/2019 10:49 AM Signed [facility] PHYSICIAN [facility] POST-OPERATIVE PATIENT CC: Patient is here [...] PA-C Electronically signed Referring Provider: MAICO ANG [[id number]] Allergies As of Date: 02/05/2019 Noted Allergy Reaction NITROGLYCERIN 11/26/2018 14 - Other: See Comments Date Reviewed: 02/05/2019 Reviewed by: Diane Dunn) Darshana - Fully Assessed Visit Diagnosis:Renal cell carcinoma of left kidney (HCC) [C64.2] Order(s):CT ABD/PEL W IVCON [[id number]] Order #: [id number] FUTURE iv contrast (will be provided with [...] 1 EachRfl: 0 XR CHEST 2V FRONTAL/LAT [[id number]] Order #: [id number] FUTURE BASIC METABOLIC PNL [SQBMP] Order #: [id number] FUTURE Prescriptions as of 02/05/2019 Sig: HYDRALAZINE [...] Status:Closed by DIANE DILLON PA-C on 02/05/19 [facility] Flavio 02-05-2019 [facility] Patient Outreach (UR OLMN) -- CLARENCE FLORES ([id number]) 1960 M Date Time Provider Department 02/05/19 DIANE DILLON) URON During your visit today, we recorded the following information about you: Allergies As of Date: 02/05/2019 Noted Allergy Reaction NITROGLYCERIN 11/26/2018 14 - Other: See Comments Date Reviewed: 02/05/2019 Reviewed by: Diane Dillon - Fully Assessed Visit Diagnosis:Screening for genitourinary condition [Z13.89] Order(s):UA CHEMSTRIP ONLY [SQUA] Order #: [id number]. #:[id number] Prescriptions as of 02/05/2019 Sig: IV CONTRAST [...] Status:Closed by DESI CALDERÓN on 02/22/19 Normal [facility] PROGRESSon 02-05-2019 PROGRESS HNO ID: [id number] Author: Diane Dillon Service: ? Author Type: Physician Commercial Loan Administrator Type: Progress Notes Filed: 02/05/2019 10:49 AM Note Text: [facility] PHYSICIAN [facility] POST-OPERATIVE PATIENT CC: Patient is here [...] arise Diane Dillon PA-C Electronically signed Normal [facility] Urinalysison 02-05-2019 Bilirubin, Urine Negative Normal Negative Kye s[facility] Comment on above: Performed By: #### U A ####[facility] [place], [place] [phone] Clarity (U) Clear Normal Clear [facility] Comment on above: Performed By: #### U A ####[address] [address] [address] [place], [place] [phone] Color (U) Yellow Normal Yellow [facility] Comment on above: Performed By: #### U A ####[address] [address] [address] [phone] Comments SEE COMMENT Normal [facility] Comment on above: Result Comment: Micr oscopic not warranted Performed By: #### U A ####[address] [address] [address] [phone] Glucose Ql (U) Negative Normal Negative [facility] Comment on above: Performed By: #### U A ####[address] [address] [address] [phone] Hemoglobin/Blood,Ur Negative Normal Negative [facility] Comment on above: Performed By: #### U A ####[address] [address] [address] [phone] Ketones Ql (U) Negative Normal Negative [facility] Comment on above: Performed By: #### U A ####[address] [address] [address] [phone] Leukest Negative Normal Negative [facility] Comment on above: Performed By: #### U A ####[address] [address] [address] [phone] Nitrite Ql (U) Negative Normal Negative [facility] Comment on above: Performed By: #### U A ####[address] [address] [address] [phone] pH (Bld) 6.5 Normal 4.5-8.0 [facility] Comment on above: Performed By: #### U A ####[address] [address] [address] [phone] Protein (U) [Mass/Vol] Trace Criticall y abnormal Negative [facility] Comment on above: Performed By: #### U A ####[address] [phone] Specific [place], Ur 1.020 Normal 1.005-1 .03 0 [facility] Comment on above: Performed By: #### U A ####[address] [phone] Urine Shin Comment SEE COMMENT Normal [facility] Comment on above: Result Comment: N/A Performed By: #### U A ####[address] [phone] Urobilinogen Qn (U) Normal Normal Normal [facility] Comment on above: Performed By: #### U A ####[address] [phone] Basic Metabolic Panlon 12-25 Anion gap [Moles/Vol] 9 mmol/L Normal 9-18 [facility] Comment on above: Performed By: #### C BCDIF, BMP ####[address] [phone] Calcium [Mass/Vol] 8.3 mg/dL Low 8.5-10.2 [facility] Comment on above: Performed By: #### C BCDIF, BMP ####[address] [phone] Chloride [Moles/Vol] 109 mmol/L High 97-[address] [facility] Comment on above: Performed By: #### C BCDIF, BMP ####[address] [phone] CO2 [Moles/Vol] 21 mmol/L Low 22-30 [facility] Comment on above: Performed By: #### C BCDIF, BMP ####[address] [place], [place] [phone] Creatinine [Mass/Vol] 1.24 mg/dL High 0.73-1.22 [facility] Comment on above: Performed By: #### C KAREL, BMP ####[facility] [place] [address] [phone] eGFR- Amer. >60 Normal [facility] Comment on above: Performed By: #### C KAREL, BMP ####[address] [phone] GFR/1.73 sq M predicted among non-blacks MDRD (S/P/Bld) [Vol rate/Area] mL/min/{1.73_m2} Normal [facility] Comment on above: Result Comment: eGFR (Estimated [...] GFR. Performed By: #### C KAREL, BMP ####[facility] [place] [address] [phone] Glucose [Mass/Vol] 117 mg/dL High 74-99 [facility] Comment on above: Result Comment: The [place] Diabetes Association (ADA) provides guidance for cutoff [...] Standards of Medical Care in Diabetes 2016, [place] Diabetes Association. Diabetes Care. 2016.39(Suppl 1). Performed By: #### C KAREL, BMP ####[facility] [place], [place] [phone] Potassium [Moles/Vol] 3.8 mmol/L Normal 3.7-5.1 [facility] Comment on above: Performed By: #### C BCDIF, BMP ####[address] [address] [address] [place], [place] [phone] Sodium [Moles/Vol] 139 mmol/L Normal 136-144 [facility] Comment on above: Performed By: #### C BCDIF, BMP ####[address] [address] [address] [place], [place] [phone] Urea nitrogen [Mass/Vol] 16 mg/dL Normal 9-24 [facility] Comment on above: Performed By: #### C BCDIF, BMP ####[address] [address] [address] [place], [place] [phone] CBC and Differentialon 12-25 Abs Baso 0.04 k/uL Normal <0.11 [facility] Comment on above: Performed By: #### C BCDIF, BMP ####[address] [address] [address] [place], [place] [phone] Abs Ness 1.12 k/uL High <0.87 [facility] Comment on above: Performed By: #### C BCDIF, BMP ####[address] [address] [address] [place], [place] [phone] Abs Neut 9.63 k/uL High 1.45-7.50 [facility] Comment on above: Performed By: #### C BCDIF, BMP ####[address] [address] [address] [place], [place] [phone] Absolute nRBC <0.01 Normal <0.01 [facility] Comment on above: Performed By: #### C BCDIF, BMP ####[address] [address] [address] [place], [place] [phone] Basophils/100 WBC (Bld) 0.3 % Normal [facility] Comment on above: Performed By: #### C BCDIF, BMP ####[address] [address] [address] [phone] DTYPE Auto Diff Normal [facility] Comment on above: Performed By: #### C BCDIF, BMP ####[address] [address] [address] [phone] Eosinophils (Bld) [#/Vol] 0.24 10*3/uL Normal <0.46 [facility] Comment on above: Performed By: #### C BCDIF, BMP ####[address] [address] [address] [phone] Eosinophils/100 WBC (Bld) 2.0 % Normal [facility] Comment on above: Performed By: #### C BCDIF, BMP ####[address] [address] [address] [phone] Erythrocyte distribution width (RBC) [Ratio] 13.7 % Normal 11.5-15.0 [facility] Comment on above: Performed By: #### C BCDIF, BMP ####[address] [address] [address] [phone] Hematocrit (Bld) [Volume fraction] 39.9 % Normal 39.0-51.0 [facility] Comment on above: Performed By: #### C BCDIF, BMP ####[address] [address] [address] [place], [place] [phone] Hemoglobin (Bld) [Mass/Vol] 13.3 g/dL Normal 13.0-17.0 [facility] Comment on above: Performed By: #### C BCDIF, BMP ####[address] [address] [address]ClevelV[place], [place] [phone] Lymphocytes (Bld) [#/Vol] 1.25 10*3/uL Normal 1.00-4.00 [facility] Comment on above: Performed By: #### C BCDIF, BMP ####[address] [address] [address] [place], [place] [phone] Lymphocytes/100 WBC (Bld) 10.2 % Normal [facility] Comment on above: Performed By: #### C BCDIF, BMP ####[address] [address] [address] [place], [place] [phone] MCH (RBC) [Entitic mass] 29.3 pG Normal 26.0-34.0 [facility] Comment on above: Performed By: #### C BCDIF, BMP ####[address] [address] [address], [place] [phone] MCHC (RBC) [Mass/Vol] 33.3 g/dL Normal 30.5-36.0 [facility] Comment on above: Performed By: #### C BCDIF, BMP ####[address] [address] [address], [place] [phone] MCV (RBC) [Entitic vol] 87.9 fL Normal 80.0-100.0 [facility] Comment on above: Performed By: #### C BCDIF, BMP ####[address] [address] [address], [place] [phone] Monocytes/100 WBC (Bld) 9.1 % Normal [facility] Comment on above: Performed By: #### C BCDIF, BMP ####[address], [place] [phone] Neutrophils/100 WBC (Bld) 78.4 % Normal [facility] Comment on above: Performed By: #### C BCDIF, BMP ####[facility] [place], [place] [phone] NRBCs 0.0 /100 WBC Normal 0 [facility] Comment on above: Performed By: #### C BCDIF, BMP ####[facility] [place], [place] [phone] Platelet mean volume (Bld) [Entitic vol] 9.6 fL Normal 9.0-12.7 [facility] Comment on above: Performed By: #### C BCKATLYNF, BMP ####[address] [place] [address] [address] [place], [place] [phone] Platelets (Bld) [#/Vol] 241 10*3/uL Normal 150-400 [facility] Comment on above: Performed By: #### C BCKATLYNF, BMP ####[address] [place] [address] [address] [place], [place] [phone] RBC (Bld) [#/Vol] 4.54 10*6/uL Normal 4.20-6.00 [facility] Comment on above: Performed By: #### C BCKRYSTAL, BMP ####[address] [place] [address] [place], [place] [phone] WBC (Bld) [#/Vol] 12.28 10*3/uL High 3.70-11.[address] [facility] Comment on above: Performed By: #### C BCDIF, BMP ####[facility] [place], [place] [phone] PROGRESSon 12-25-2018 PROGRESS HNO ID: [id number] Author: Clarence Schmidt Service: Urology Author Type: Resident Type: Progress Notes Filed: 12/25/2018 9:45 AM Note Text: [facility] UROLOGY PROGRESS NOTE Name: Clarence Flores Bed: [id number]/[id number] Date: December 25, 2018 After Hours [facility] Urology Service Pager: [phone] ASSESSMENT AND PLAN Clarence Flores is a [...] Imaging n/a Clarence Schmidt MD Personal Pager: [phone] For weekend or after hours issues [place] [phone] [facility] PROGRESS HNO ID: [id number] Author: Kate Ruiz) Lion Service: Urology Author [...] PRN - sodium chloride 0.65 % 2 [place] (AYR, OCEAN) 2 [place] EACH NOSTRIL PRN - tamsulosin ER 0.4 [...] to discharge. Signature: Kate Seymour CNP Pager: [phone] Date of service: 12/25/2018 Normal [facility] Basic Metabolic Panlon 12-24 Anion gap [Moles/Vol] 16 mmol/L Normal 9-18 [facility] Comment on above: Performed By: #### C KAREL BMP ####[address] [phone] Calcium [Mass/Vol] 8.7 mg/dL Normal 8.5-10.2 [facility] Comment on above: Performed By: #### C KAREL BMP ####[address] [place], [place] [phone] Chloride [Moles/Vol] 104 mmol/L Normal 97-[address] [facility] Comment on above: Performed By: #### C BCKRYSTAL BMP ####[facility] [place], [place] [phone] CO2 [Moles/Vol] 18 mmol/L Low 22-30 [facility] Comment on above: Performed By: #### C KAREL, BMP ####[facility] [place], [place] [phone] Creatinine [Mass/Vol] 1.26 mg/dL High 0.73-1.22 [facility] Comment on above: Performed By: #### C KAREL NIRALI ####[facility] [place], [place] [phone] eGFR- Amer. >60 Normal [facility] Comment on above: Performed By: #### C KAREL, NIRALI ####[address] [place] [place], [place] [phone] GFR/1.73 sq M predicted among non-blacks MDRD (S/P/Bld) [Vol rate/Area] 59 . Normal [facility] Comment on above: Result Comment: eGFR (Estimated [...] reflect actual GFR. Performed By: #### C KAREL BMP ####[address] [phone] Glucose [Mass/Vol] 117 mg/dL High 74-99 [facility] Comment on above: Result Comment: The [place] Diabetes Association (ADA) provides guidance for cutoff [...] Standards of Medical Care in Diabetes 2016, [place] Diabetes Association. Diabetes Care. 2016.39(Suppl 1). Performed By: #### C NIRALI VINSON ####[place] [address] [facility] [phone] Potassium [Moles/Vol] 4.0 mmol/L Normal 3.7-5.1 [facility] Comment on above: Performed By: #### C BCDIF, BMP ####[place] [address] [place], [place] [phone] Sodium [Moles/Vol] 138 mmol/L Normal 136-144 [facility] Comment on above: Performed By: #### C BCDIF, BMP ####[place] [address] [phone] Urea nitrogen [Mass/Vol] 15 mg/dL Normal 9-24 [facility] Comment on above: Performed By: #### C BCDIF, BMP ####[place] [phone] CBC and Differentialon 12-24 Abs Baso 0.06 k/uL Normal <0.11 [facility] Comment on above: Performed By: #### C BCDIF, BMP ####[place] [address] [address] [place] [place] [phone] Abs Ness 1.82 k/uL High <0.87 [facility] Comment on above: Performed By: #### C BCDIF, BMP ####[place] [address] [place] [phone] Abs Neut 13.61 k/uL High 1.45-7.50 [facility] Comment on above: Performed By: #### C BCDIF, BMP ####[place] [address] [place] [phone] Absolute nRBC <0.01 Normal <0.01 [facility] Comment on above: Performed By: #### C BCDIF, BMP ####[place] [address] [place] [phone] Basophils/100 WBC (Bld) 0.4 % Normal [facility] Comment on above: Performed By: #### C BCDIF, BMP ####[place] [address] [place] [phone] DTYPE Auto Diff Normal [facility] Comment on above: Performed By: #### C BCDIF, BMP ####[place] [address] [place] [phone] Eosinophils (Bld) [#/Vol] 0.03 10*3/uL Normal <0.46 [facility] Comment on above: Performed By: #### C BCKRYSTAL, BMP ####[place] [address] [place] [phone] Eosinophils/100 WBC (Bld) 0.2 % Normal [facility] Comment on above: Performed By: #### C BCDIF, BMP ####[place] [address] [place] [phone] Erythrocyte distribution width (RBC) [Ratio] 13.7 % Normal 11.5-15.0 [facility] Comment on above: Performed By: #### C BCDIF, BMP ####[place] [address] [place] [phone] Hematocrit (Bld) [Volume fraction] 43.5 % Normal 39.0-51.0 [facility] Comment on above: Performed By: #### C BCDIF, BMP ####[place] [address] [place] [phone] Hemoglobin (Bld) [Mass/Vol] 14.5 g/dL Normal 13.0-17.0 [facility] Comment on above: Performed By: #### C BCDIF, BMP ####[place] [address] [place] [phone] Lymphocytes (Bld) [#/Vol] 1.16 10*3/uL Normal 1.00-4.00 [facility] Comment on above: Performed By: #### C BCDIF, BMP ####[facility] [place] [place], [place] [phone] Lymphocytes/100 WBC (Bld) 7.0 % Normal [facility] Comment on above: Performed By: #### C BCDIF, BMP ####[place] [address] [address] [place] [phone] MCH (RBC) [Entitic mass] 29.3 pG Normal 26.0-34.0 [facility] Comment on above: Performed By: #### C BCDIF, BMP ####[place] [address] [address] [place] [phone] MCHC (RBC) [Mass/Vol] 33.3 g/dL Normal 30.5-36.0 [facility] Comment on above: Performed By: #### C BCDIF, BMP ####[place] [address] [address] [place] [phone] MCV (RBC) [Entitic vol] 87.9 fL Normal 80.0-100.0 [facility] Comment on above: Performed By: #### C BCDIF, BMP ####[place] [address] [address] [place], [place] [phone] Monocytes/100 WBC (Bld) 10.9 % Normal [facility] Comment on above: Performed By: #### C BCDIF, BMP ####[place] [address] [address] [place] [phone] Neutrophils/100 WBC (Bld) 81.5 % Normal [facility] Comment on above: Result Comment: Diff erential confirmed by visual scan of peripheral blood smear slide. Performed By: #### C BCDIF, BMP ####[place] [address] [address] [place] [phone] NRBCs 0.0 /100 WBC Normal 0 [facility] Comment on above: Performed By: #### C BCDIF, BMP ####[facility] [place], [place] [phone] Platelet mean volume (Bld) [Entitic vol] 9.6 fL Normal 9.0-12.7 [facility] Comment on above: Performed By: #### C BCDIF, BMP ####[facility] [place], [place] [phone] Platelets (Bld) [#/Vol] 278 10*3/uL Normal 150-400 [facility] Comment on above: Performed By: #### C BCDIF, BMP ####[place] [address] [place], [place] [phone] RBC (Bld) [#/Vol] 4.95 10*6/uL Normal 4.20-6.00 [facility] Comment on above: Performed By: #### C BCDIF, BMP ####[place] [address] [address] [place], [place] [phone] WBC (Bld) [#/Vol] 16.68 10*3/uL High 3.70-11.[address] [facility] Comment on above: Performed By: #### C BCDIF, BMP ####[place] [address] [place], [place] [phone] PROGRESSon 12-24-2018 PROGRESS HNO ID: [id number] Author: Clarence (Breana) Roxana Service: Urology Author Type: Resident Type: Progress Notes Filed: 12/24/2018 10:00 AM Note Text: [facility] UROLOGY PROGRESS NOTE Name: Clarence lFores Bed: G090 035/[id number] Date: December 24, 2018 After Hours [facility] [place] [facility] Pager: [phone] ASSESSMENT AND PLAN Clarence Flores is a [...] Imaging n/a Clarence Schmidt MD Personal Pager: [phone] For weekend or after hours issues [place] [phone] Normal [facility] Basic Metabolic Panlon 12-23 Anion gap [Moles/Vol] 14 mmol/L Normal 9-18 [facility] Comment on above: Performed By: #### C BCDIF, BMP ####[place] [address] [address] [place] [phone] Calcium [Mass/Vol] 8.7 mg/dL Normal 8.5-10.2 [facility] Comment on above: Performed By: #### C BCDIF, BMP ####[place] [address] [address] [place], [place] [phone] Chloride [Moles/Vol] 102 mmol/L Normal 97-[address] [facility] Comment on above: Performed By: #### C BCDIF, BMP ####[place] [address] [address] [place] [phone] CO2 [Moles/Vol] 21 mmol/L Low 22-30 [facility] Comment on above: Performed By: #### C BCDIF, BMP ####[place] [address] [address] [place], [place] [phone] Creatinine [Mass/Vol] 1.31 mg/dL High 0.73-1.22 [facility] Comment on above: Performed By: #### C BCDIF, BMP ####[place] [address] [address] [place], [place] [phone] eGFR- Amer. >60 Normal [facility] Comment on above: Performed By: #### C BCDIF, BMP ####[place] [address] [address] [place], [place] [phone] GFR/1.73 sq M predicted among non-blacks MDRD (S/P/Bld) [Vol rate/Area] 57 . Normal [facility] Comment on above: Result Comment: eGFR (Estimated [...] GFR. Performed By: #### C NIRALI VINSON ####[facility] [place], [place] [phone] Glucose [Mass/Vol] 121 mg/dL High 74-99 [facility] Comment on above: Result Comment: The [place] Diabetes Association (ADA) provides guidance for cutoff [...] Standards of Medical Care in Diabetes 2016, [place] Diabetes Association. Diabetes Care. 2016.39(Suppl 1). Performed By: #### C KAREL BMP ####[facility] [address] [place], [place] [phone] Potassium [Moles/Vol] 4.0 mmol/L Normal 3.7-5.1 [facility] Comment on above: Performed By: #### C KAREL BMP ####[facility] [address] [place], [place] [phone] Sodium [Moles/Vol] 137 mmol/L Normal 136-144 [facility] Comment on above: Performed By: #### C BCDIF, BMP ####[facility] [address] [place], [place] [phone] Urea nitrogen [Mass/Vol] 11 mg/dL Normal 9-24 [facility] Comment on above: Performed By: #### C BCDIF, BMP ####[facility] [address] [place], [place] [phone] CASE MGT INIT ASSESon 2018 CASE MGT INIT ASSES HNO ID: [id number] Author: Cornelius Diaz (Sw) Service: Care Management Author Type: Equipment Service Engineer Type: Care Mgt Initial Assessment Filed: 12/23/2018 4:27 PM Note Text: CARE MANAGEMENT: ASSESSMENT AND DISCHARGE PLAN SERVICE DATE: 12/23/2018 SERVICE TIME: 4:24 PM PRIMARY CARE PHYSICIAN: Shea Beach MD ADMISSION STATUS: Observation Needs Prior to Discharge: None;Ready for Discharge 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 No SOCIAL: Living Arrangement: Home Lives With: Son Financial Resources: Employed: [employer] Primary Contact: Extended Emergency Contact Information Primary Emergency Contact: BRUNILDA ARANDA Mobile Relation: Daughter Supportive: Yes Other Important Patient Contacts: None Caregiver Assessment: Caregiver is ready, willing and able to meet the patient's needs as recommended by the inter-professional team? No Caregiver Needed Patient's transition needs and plan for meeting these needs: SW following hospital course and POC for any [...] 0 I feel financially burdened by my phi-ez-wqxsaz expenses for my prescription medication: Disagree completely [...] 2018 TIME: 4:24 PM PAGER/CONTACT #: Normal [facility] CBC and Differentialon 12-23 Abs Baso 0.03 k/uL Normal <0.11 [facility] Comment on above: Performed By: #### C BCDIF, BMP ####[facility] [address] [place], [place] [phone] Abs Ness 1.36 k/uL High <0.87 [facility] Comment on above: Performed By: #### C BCDIF, BMP ####[facility] [address] [place], [place] [phone] Abs Neut 16.73 k/uL High 1.45-7.50 [facility] Comment on above: Performed By: #### C BCDIF, BMP ####[facility] AveClevelJodi [place]ille [phone] Absolute nRBC <0.01 Normal <0.01 [facility] Comment on above: Performed By: #### C BCDIF, BMP ####[place] [address] AveClevelJ[place] [phone] Basophils/100 WBC (Bld) 0.2 % Normal [facility] Comment on above: Performed By: #### C BCDIF, BMP ####[place] [address] [address] [place] [phone] DTYPE Auto Diff Normal [facility] Comment on above: Performed By: #### C BCDIF, BMP ####[place] [address] [address] [place] [phone] Eosinophils (Bld) [#/Vol] 10*3/uL Normal <0.46 [facility] Comment on above: Performed By: #### C BCDIF, BMP ####[place] [address] [address] [place] [phone] Eosinophils/100 WBC (Bld) 0.0 % Normal [facility] Comment on above: Performed By: #### C BCDIF, BMP ####[place] [address] [address] [place] [phone] Erythrocyte distribution width (RBC) [Ratio] 13.3 % Normal 11.5-15.0 [facility] Comment on above: Performed By: #### C BCDIF, BMP ####[place] [address] AveClevelJ[place] [phone] Hematocrit (Bld) [Volume fraction] 46.4 % Normal 39.0-51.0 [facility] Comment on above: Performed By: #### C BCDIF, BMP ####[place] [address]ClevelJ[place] [phone] Hemoglobin (Bld) [Mass/Vol] 15.3 g/dL Normal 13.0-17.0 [facility] Comment on above: Performed By: #### C BCDIF, BMP ####[place] [address] [address] [place], [place] [phone] Lymphocytes (Bld) [#/Vol] 0.94 10*3/uL Low 1.00-4.00 [facility] Comment on above: Performed By: #### C BCDIF, BMP ####[place] [address] [address] [place], [place] [phone] Lymphocytes/100 WBC (Bld) 4.9 % Normal [facility] Comment on above: Performed By: #### C BCDIF, BMP ####[place] [address] [address] [place], [place] [phone] MCH (RBC) [Entitic mass] 28.2 pG Normal 26.0-34.0 [facility] Comment on above: Performed By: #### C BCDIF, BMP ####[place] [address] [address] [place] [phone] MCHC (RBC) [Mass/Vol] 33.0 g/dL Normal 30.5-36.0 [facility] Comment on above: Performed By: #### C BCDIF, BMP ####[place] [address] [address] [place], [place] [phone] MCV (RBC) [Entitic vol] 85.5 fL Normal 80.0-100.0 [facility] Comment on above: Performed By: #### C BCDIF, BMP ####[place] [address] [place], [place] [phone] Monocytes/100 WBC (Bld) 7.1 % Normal [facility] Comment on above: Performed By: #### C BCDIF, BMP ####[place] [address] [place], [place] [phone] Neutrophils/100 WBC (Bld) 87.8 % Normal [facility] Comment on above: Performed By: #### Pablo VINSON, BMP ####[place] [address] [place], [place] [phone] NRBCs 0.0 /100 WBC Normal 0 [facility] Comment on above: Performed By: #### Pablo VINSON, BMP ####[place] [address] [place], [place] [phone] Platelet mean volume (Bld) [Entitic vol] 9.5 fL Normal 9.0-12.7 [facility] Comment on above: Performed By: #### Pablo VINSON, BMP ####[address] [phone] Platelets (Bld) [#/Vol] 315 10*3/uL Normal 150-400 [facility] Comment on above: Performed By: #### Pablo VINSON, BMP ####[address] [phone] RBC (Bld) [#/Vol] 5.43 10*6/uL Normal 4.20-6.00 [facility] Comment on above: Performed By: #### Pablo VINSON, BMP ####[address] [place], [place] [phone] WBC (Bld) [#/Vol] 19.06 10*3/uL High 3.70-11.[address] [facility] Comment on above: Performed By: #### Pablo VINSON, BMP ####[place] [address] [address] [place], [place] [phone] PROGRESSon 12-23-2018 PROGRESS HNO ID: [id number] Author: Clarence Schmidt Service: Urology Author Type: Resident Type: Progress Notes Filed: 12/23/2018 8:40 AM Note Text: [facility] UROLOGY PROGRESS NOTE Name: Clarence Flores Bed: G090 035/[id number] Date: December 23, 2018 After Hours [facility] [place] [facility] Pager: [phone] ASSESSMENT AND PLAN Clarence Flores is a [...] Imaging n/a Clarence Schmidt MD Personal Pager: [phone] For weekend or after hours issues [place] [phone] Normal [facility] ANES Ferny 12-22-2018 ANES POST HNO ID: [id number] Author: Salvatore Lacey Service: Anesthesiology Author Type: [...] 22, 2018 TIME: 12:16 PM PAGER/CONTACT #: [phone] Normal [facility] Basic Metabolic Panlon 12-22 Anion gap [Moles/Vol] 10 mmol/L Normal 9-18 [facility] Comment on above: Performed By: #### C BCDIF, BMP ####[facility] [place], [place] [phone] Calcium [Mass/Vol] 8.0 mg/dL Low 8.5-10.2 [facility] Comment on above: Performed By: #### C BCDIF, BMP ####[place] [address] [place], [place] [phone] Chloride [Moles/Vol] 105 mmol/L Normal 97-[address] [facility] Comment on above: Performed By: #### C BCDIF, BMP ####[facility] [place] [phone] CO2 [Moles/Vol] 23 mmol/L Normal 22-30 [facility] Comment on above: Performed By: #### C BCDIF, BMP ####[facility]CU[address] [place], [place] [phone] Creatinine [Mass/Vol] 1.17 mg/dL Normal 0.73-1.22 [facility] Comment on above: Performed By: #### C BCDIF, BMP ####[facility] [place], [place] [phone] eGFR- Amer. >60 Normal [facility] Comment on above: Performed By: #### C BCDIF, BMP ####[facility] [place], [place] [phone] GFR/1.73 sq M predicted among non-blacks MDRD (S/P/Bld) [Vol rate/Area] mL/min/{1.73_m2} Normal [facility] Comment on above: Result Comment: eGFR (Estimated [...] GFR. Performed By: #### C NIRALI VINSON ####[facility] [place], [place] [phone] Glucose [Mass/Vol] 168 mg/dL High 74-99 [facility] Comment on above: Result Comment: The [place] Diabetes Association (ADA) provides guidance for cutoff [...] Standards of Medical Care in Diabetes 2016, [place] Diabetes Association. Diabetes Care. 2016.39(Suppl 1). Performed By: #### C BCDIF, BMP ####[facility] [place], [place] [phone] Potassium [Moles/Vol] 5.5 mmol/L High 3.7-5.1 [facility] Comment on above: Result Comment: Resu lts may be falsely increased due to interference by hemolysis. Suggest reorder as clinically indicated. Performed By: #### C BCKRYSTAL, BMP ####[facility] [place], [place] [phone] Sodium [Moles/Vol] 138 mmol/L Normal 136-144 [facility] Comment on above: Performed By: #### C BCDIF, BMP ####[place] [address] [place], [place] [phone] Urea nitrogen [Mass/Vol] 9 mg/dL Normal 9-24 [facility] Comment on above: Performed By: #### C BCDIF, BMP ####[place] [phone] CBC and Differentialon 12-22 Abs Baso 0.07 k/uL Normal <0.11 [facility] Comment on above: Performed By: #### C BCDIF, BMP ####[address] [phone] Abs Ness 0.89 k/uL High <0.87 [facility] Comment on above: Performed By: #### C BCDIF, BMP ####[place] [phone] Abs Neut 13.53 k/uL High 1.45-7.50 [facility] Comment on above: Performed By: #### C BCDIF, BMP ####[address] [place], [place] [phone] Absolute nRBC <0.01 Normal <0.01 [facility] Comment on above: Performed By: #### C BCDIF, BMP ####[address] [phone] Basophils/100 WBC (Bld) 0.4 % Normal [facility] Comment on above: Performed By: #### C BCDIF, BMP ####[address] [place], [place] [phone] DTYPE Auto Diff Normal [facility] Comment on above: Performed By: #### C BCDIF, BMP ####[facility] AveClevelJodi [place]ille [phone] Eosinophils (Bld) [#/Vol] 0.06 10*3/uL Normal <0.46 [facility] Comment on above: Performed By: #### C BCDIF, BMP ####[place] [address] AveClevelandPap[place], [place] [phone] Eosinophils/100 WBC (Bld) 0.4 % Normal [facility] Comment on above: Performed By: #### C BCDIF, BMP ####[place] [address]levelJ[address] [place] [phone] Erythrocyte distribution width (RBC) [Ratio] 13.6 % Normal 11.5-15.0 [facility] Comment on above: Performed By: #### C BCDIF, BMP ####[place] [address]ClevelJ[address] [place] [phone] Hematocrit (Bld) [Volume fraction] 46.4 % Normal 39.0-51.0 [facility] Comment on above: Performed By: #### C BCDIF, BMP ####[place] [address]ClevelV[place], [place] [phone] Hemoglobin (Bld) [Mass/Vol] 15.4 g/dL Normal 13.0-17.0 [facility] Comment on above: Performed By: #### C BCDIF, BMP ####[place] [address]ClevelJ[address] [place] [phone] Lymphocytes (Bld) [#/Vol] 1.09 10*3/uL Normal 1.00-4.00 [facility] Comment on above: Performed By: #### C BCDIF, BMP ####[place] [address]ClevelV[place], [place] [phone] Lymphocytes/100 WBC (Bld) 7.0 % Normal [facility] Comment on above: Performed By: #### C BCDIF, BMP ####[place] [address] [place], [place] [phone] MCH (RBC) [Entitic mass] 28.7 pG Normal 26.0-34.0 [facility] Comment on above: Performed By: #### C BCDIF, BMP ####[place] [address] [place], [place] [phone] MCHC (RBC) [Mass/Vol] 33.2 g/dL Normal 30.5-36.0 [facility] Comment on above: Performed By: #### C BCDIF, BMP ####[place] [address] [place] [phone] MCV (RBC) [Entitic vol] 86.4 fL Normal 80.0-100.0 [facility] Comment on above: Performed By: #### C BCDIF, BMP ####[place] [address] [place] [phone] Monocytes/100 WBC (Bld) 5.7 % Normal [facility] Comment on above: Performed By: #### C BCDIF, BMP ####[place] [address] [place] [phone] Neutrophils/100 WBC (Bld) 86.5 % Normal [facility] Comment on above: Performed By: #### C BCDIF, BMP ####[place] [address] [place], [place] [phone] NRBCs 0.0 /100 WBC Normal 0 [facility] Comment on above: Performed By: #### C BCDIF, BMP ####[place] [address] [place], [place] [phone] Platelet mean volume (Bld) [Entitic vol] 9.8 fL Normal 9.0-12.7 [facility] Comment on above: Performed By: #### C BCDIF, BMP ####[place] [address] [place], [place] [phone] Platelets (Bld) [#/Vol] 263 10*3/uL Normal 150-400 [facility] Comment on above: Performed By: #### C BCDIF, BMP ####[facility] [place], [place] [phone] RBC (Bld) [#/Vol] 5.37 10*6/uL Normal 4.20-6.00 [facility] Comment on above: Performed By: #### C BCDIF, BMP ####[facility] [place], [place] [phone] WBC (Bld) [#/Vol] 15.64 10*3/uL High 3.70-11.[address] [facility] Comment on above: Performed By: #### C BCDIF, BMP ####[facility] [place], [place] [phone] CNCOon 12-22-2018 CNCO Letter Text [facility] NURSING PROGon 12-22-2018 NURSING PROG HNO ID: [id number] Author: Yoly De Jesus RN Service: Nursing [...] Jesus RN MSN In Department: HOSP MAIN SDS Normal [facility] OPERATIVE NOon 12-22-2018 OPERATIVE NO HNO ID: [id number] Author: Cyrus Justice Service: Urology Author Type: Resident Type: Operative Report Filed: 12/22/2018 11:07 AM Note Text: -- Attestation signed by Maico Agn at 12/22/2018 11:58 AM . -- OPERATIVE/PROCEDURE REPORT LOG ID: [id number] Surgery/Procedure Date: 12/22/2018 Incision/Procedure Start Time: 8:19 AM Incision Close/Procedure End Time: 10:48 AM Surgeon(s)/Proceduralist(s ) and Commercial Loan Administrator(s): Surgeon(s) and Role: * Maico Ang - Primary * Cyrus (ResParker Justice - Resident - Assisting * Ernesto (Res) [...] 8-mm robotic ports and one 12-mm airseal camp assistant port were placed. The robot was [...] under vision. We then extended our 12mm camp assistant port site cephalad and extracted our specimen through this. We then mobilized his umbilical hernia sac. Herniated mesentery was delivered out of the hernia sac and sac dissected completely free off the skin. The fascia was then closed using interrupted mtjfme-zx-czpvu 0-prolene sutures. 3-0 vicryl was used to [...] 1.left renal neoplasm Tissue Kidney taken by [facility] Pathology Routine 2.hernia sac Tissue taken by [facility] Pathology Routine Implantable Devices: None Drains: 10-flat SHELBY drain and jacques catheter (18-occitan coude with 10cc balloon) Complications: None Accidental [...] 22, 2018 TIME: 10:48 AM PAGER/CONTACT #: [phone] [facility] PROGRESSon 12-22-2018 PROGRESS HNO ID: [id number] Author: Clarence Schmidt Service: Urology Author Type: Resident Type: Progress Notes Filed: 12/22/2018 4:14 PM Note Text: [facility] UROLOGY PROGRESS NOTE Name: Clarence Flores Bed: G090 035/[id number] Date: December 22, 2018 After Hours [facility] [place] [facility] Pager: [phone] ASSESSMENT AND PLAN Clarence Flores is a [...] voluntary guarded without peritonitic signs, comfortable at basleine Wound: Binder in place, dressing c/d/i : [...] Imaging n/a Clarence Schmidt MD Personal Pager: [phone] For weekend or after hours issues [place] [phone] Normal [facility] PROGRESS HNO ID: [id number] Author: Valeria (Rn) FIORELLA Moreno Service: ? Author Type: Registered Nurse Type: Progress Notes Filed: 12/22/2018 2:26 PM Note Text: Admission/Transfer Note PATIENT NAME: Clarence Flores Patient admitted from PACU via stretcher in stable condition. Actions taken: Patient oriented to room, call light function, prescribed activities, Patient rights and Quiet at night. This note was completed by: Valeria Moreno RN Normal [facility] Potassiumon 12-22-2018 Potassium [Moles/Vol] 4.2 mmol/L Normal 3.7-5.1 [facility] Comment on above: Performed By: #### K 1 ####[facility] [address] [place], [place] [phone] SURGICAL PATHOLOGYon 019 SURGICAL PATHOLOGY Specimen originated from [facility] Specimen #: [id number] Submitting Physician: MAICO ANG (Q10) FINAL DIAGNOSIS [...] this case and concurs with the diagnosis. [facility] 12/23/2018 SYNOPTIC REPORT OF [facility] PATHOLOGIC FINDINGS [...] Pathologic Findings in Nonneoplastic Kidney: Insufficient tissue Archivist Military History Tumor Block: Specify: A1 ---- Meño Hamilton [...] appear to extend beyond the capsular surface. Archivist Military History sections are submitted as follows: A1-A3 mass with renal sinus/parenchymal margin, A4-A5 mass with capsular surface. WE/glw 12/22/2018 B. Received fresh labeled hernia sac is a segment of cote pink fibromembranous soft tissue measuring 4.7 x 1.9 x 0.6 cm. No nodularity or induration is identified. Archivist Military History sections are submitted in formalin in cassette B1. VINICIO/rw 12/22/2018 [place] [address] Date of Report: 12/24/2018 Date of Procedure: 12/22/2018 Date of Receipt: 12/22/2018 Submitted by: MAICO ANG (Q10) Location: 0 Diagnostic interpretation performed at [place] [address]. CLIA Number: [id number] Normal [facility] APTTon 12-17-2018 aPTT Coag (Bld) [Time] 28.8 s Normal 23.0-32.4 [facility] Comment on above: Result Comment: Unfr [...] laboratory APTT reagent in use throughout the [facility]. Performed By: #### P T, PTT, CBC, CMP #### [facility] [employer] [facility] [place], [place] [address] CBCon 12-17-2018 Absolute nRBC <0.01 Normal <0.01 [facility] Comment on above: Performed By: #### P T, PTT, CBC, CMP #### [facility] [employer] [facility] [place], [place] [address] Erythrocyte distribution width (RBC) [Ratio] 13.2 % Normal 11.5-15.0 [facility] Comment on above: Performed By: #### P T, PTT, CBC, CMP #### [place] [address] Hematocrit (Bld) [Volume fraction] 46.7 % Normal 39.0-51.0 [facility] Comment on above: Performed By: #### P T, PTT, CBC, CMP #### [place] [address] Hemoglobin (Bld) [Mass/Vol] 15.7 g/dL Normal 13.0-17.0 [facility] Comment on above: Performed By: #### P T, PTT, CBC, CMP #### [place] [address] MCH (RBC) [Entitic mass] 28.6 pG Normal 26.0-34.0 [facility] Comment on above: Performed By: #### P T, PTT, CBC, CMP #### [place] [address] MCHC (RBC) [Mass/Vol] 33.6 g/dL Normal 30.5-36.0 [facility] Comment on above: Performed By: #### P T, PTT, CBC, CMP #### [place] [address] MCV (RBC) [Entitic vol] 85.2 fL Normal 80.0-100.0 [facility] Comment on above: Performed By: #### P T, PTT, CBC, CMP #### [place] [address] Platelet mean volume (Bld) [Entitic vol] 9.9 fL Normal 9.0-12.7 [facility] Comment on above: Performed By: #### P T, PTT, CBC, CMP #### [place] [address] Platelets (Bld) [#/Vol] 322 10*3/uL Normal 150-400 [facility] Comment on above: Performed By: #### P T, PTT, CBC, CMP #### [facility] [employer] [address] [place], [place] [address] RBC (Bld) [#/Vol] 5.48 10*6/uL Normal 4.20-6.00 [facility] Comment on above: Performed By: #### P T, PTT, CBC, CMP #### [facility] [address] [place], [place] [phone] WBC (Bld) [#/Vol] 9.33 10*3/uL Normal 3.70-11.00 [facility] Comment on above: Performed By: #### P T, PTT, CBC, CMP #### [facility] [address] [place], [place] [address] CNOVon 12-17-2018 CNOV Office Visit (PSSCMN ) -- CLARENCE FLORES ([id number]) 1960 M Date Time Provider Department 12/17/18 12:[address] [facility] PSSCMN During your visit today, we recorded the following information about you: Pulse Blood pressure Weight Height 64/minute 169/96 119.7 kg 1.676 m Aimee oRmero, FIORELLA 12/21/2018 9:03 AM Addendum ANESTHESIA PRE-OPERATIVE ASSESSMENT [...] PAGER/CONTACT #: addendum labs and ekg to [facility]; Aimee Romero RN Lab Value Units Date [...] 8:41:34 AM ? Referring Provider: MAICO ANG [[id number]] Allergies As of Date: 12/17/2018 Noted Allergy [...] Chart Close Cosign Accepted by: PERCY BERTRAND MD[[id number]] Chart Close Cosign Accepted on: FriDec 17, 2018 12:54 PM Normal [facility] CNOV Office Visit (UROLMN ) -- CLARENCE FLORES ([id number]) 1960 M Date Time Provider Department 12/17/18 9:15 AM JESSICA HERRERA (PINION POLISHER) UROLMN During your visit today, we recorded the following information about you: Pulse Blood pressure Weight Height 64/minute 169/96 119.8 kg 1.676 m Jessica Herrera CNP 12/17/2018 9:57 AM Signed UROLOGY SURGICAL HANDP SERVICE DATE: 12/17/2018 REFERRING PROVIDER: Maico Ang MD [address] [facility] [address] PCP: Shea Beach MD GENDER: SUBJECTIVE CHIEF [...] or problems. No history of angina, CHF, MS, cardiac surgery of stents. +history of HTN [...] problems. Neurologic: No history of TIA's, stroke, AGILE COACH tumor, impaired sensorium, hemiplegia, paraplegia or quadriplegia. [...] TIME: 12:38 PM PAGER/CONTACT #: [facility] PRE-OP NOTE Clarence Flores is a 58 year old male. Pre-op Date: December 16, 2018 Date of Procedure: 12/22/2018 Procedure/Surgery: Robotic L partial Nx Diagnosis: L renal mass Primary Surgeon: MD Allie, [facility] Healthquest Score: tbd BP 169/96 [...] CNP Electronically signed Referring Provider: MAICO ANG [[id number]] Allergies As of Date: 12/17/2018 Noted Allergy [...] by JESSICA HERRERA CNP on 12/17/18 Normal [facility] Comp Metabolic Panelon 12-17 Albumin [Mass/Vol] 4.3 g/dL Normal 3.9-4.9 [facility] Comment on above: Performed By: #### P T, PTT, CBC, CMP ####[place] [phone] ALP [Catalytic activity/Vol] 56 U/L Normal 38-113 [facility] Comment on above: Performed By: #### P T, PTT, CBC, CMP ####[address] [phone] ALT [Catalytic activity/Vol] 22 U/L Normal 10-54 [facility] Comment on above: Performed By: #### P T, PTT, CBC, CMP ####[address] [phone] Anion gap [Moles/Vol] 13 mmol/L Normal 9-18 [facility] Comment on above: Performed By: #### P T, PTT, CBC, CMP ####[address] [phone] AST [Catalytic activity/Vol] 25 U/L Normal 14-40 [facility] Comment on above: Performed By: #### P T, PTT, CBC, CMP ####[address] [phone] Bilirubin [Mass/Vol] 0.4 mg/dL Normal 0.2-1.[address] [facility] Comment on above: Performed By: #### P T, PTT, CBC, CMP ####[place] [address] [address] [place], [place] [phone] Calcium [Mass/Vol] 9.3 mg/dL Normal 8.5-10.2 [facility] Comment on above: Performed By: #### P T, PTT, CBC, CMP ####[place] [address] [address] [place], [place] [phone] Chloride [Moles/Vol] 105 mmol/L Normal 97-[address] [facility] Comment on above: Performed By: #### P T, PTT, CBC, CMP ####[place] [address] [address] [place] [phone] CO2 [Moles/Vol] 21 mmol/L Low 22-30 [facility] Comment on above: Performed By: #### P T, PTT, CBC, CMP ####[place] [address] [address] [place], [place] [phone] Creatinine [Mass/Vol] 1.20 mg/dL Normal 0.73-1.22 [facility] Comment on above: Performed By: #### P T, PTT, CBC, CMP ####[place] [address] [address], [place] [phone] eGFR- Amer. >60 Normal [facility] Comment on above: Performed By: #### P T, PTT, CBC, CMP ####[place] [address] [address] [place] [place], [place] [phone] GFR/1.73 sq M predicted among non-blacks MDRD (S/P/Bld) [Vol rate/Area] mL/min/{1.73_m2} Normal [facility] Comment on above: Result Comment: eGFR (Estimated [...] By: #### P T, PTT, CBC, CMP ####[facility] [place], [place] [phone] Glucose [Mass/Vol] 105 mg/dL High 74-99 [facility] Comment on above: Result Comment: The [place] Diabetes Association (ADA) provides guidance for cutoff [...] Standards of Medical Care in Diabetes 2016, [place] Diabetes Association. Diabetes Care. 2016.39(Suppl 1). Performed By: #### P T, PTT, CBC, CMP ####[address] [phone] Potassium [Moles/Vol] 4.0 mmol/L Normal 3.7-5.1 [facility] Comment on above: Performed By: #### P T, PTT, CBC, CMP ####[facility] [place], [place] [phone] Protein [Mass/Vol] 7.1 g/dL Normal 6.3-8.0 [facility] Comment on above: Performed By: #### P T, PTT, CBC, CMP ####[place] [address] [place], [place] [phone] Sodium [Moles/Vol] 139 mmol/L Normal 136-144 [facility] Comment on above: Performed By: #### P T, PTT, CBC, CMP ####[facility] [place], [place] [phone] Urea nitrogen [Mass/Vol] 13 mg/dL Normal 9-24 [facility] Comment on above: Performed By: #### P T, PTT, CBC, CMP ####[facility] [address] [place], [place] [phone] Confirm Blood Typeon 019 ABO/RH(D) Positive Normal [facility] Comment on above: Performed By: #### C ONABO ####[facility] [address] [place], [place] [phone] ECG COMPLETEon 12-17-2018 ECG COMPLETE NAME : CLARENCE FLORES PID : [id number] : 1960 Gender : Male Race : ORD : [id number] Procedure Date : Dec 17 2018 10:39:05 Edit Date : Dec 18 2018 08:41:40 Diagnosis:NORMAL SINUS RHYTHM NORMAL ECG Confirmed by TARIQ DRUMMOND MD (65) on 12/18/2018 8:41:34 AM Ventricular Rate : 63 BPM Atrial Rate : 63 BPM P-R Interval : 160 ms QRS Duration : 94 ms Q-T Interval : 420 ms QTC Calculation(Bazett) : 429 ms P Brashear : 36 degrees R Brashear : 69 degrees T Brashear : 80 degrees Test Reason : Location : 119 : A17 A17 Overread By : TARIQ DRUMMOND MD Edited By : TARIQ DRUMMOND MD Referred By : MAICO ANG Acquired by : PARIS ESTEVES [facility] PROGRESSon 12-17-2018 PROGRESS HNO ID: [id number] Author: Aimee Richards (Rn) Linda Service: ? [...] PAGER/CONTACT #: addendum labs and ekg to [facility]; Aimee Romero RN Lab Value Units Date [...] (65) on 12/18/2018 8:41:34 AM ? Normal [facility] Protimeon 12-17-2018 PT Coag (PPP) [Time] 10.8 s Normal 9.7-13.[address] [facility] Comment on above: Performed By: #### P T, PTT, CBC, CMP #### [facility] [address] [place], [place] [address] PT Coag (PPP) [Time] 1.0 s Normal 0.9-1.[address] [facility] Comment on above: Result Comment: Tyra min K Antagonist (VKA) Therapeutic Range: INR 2 to 3 (Target INR of 2.5) Note: For patients treated with VKA drugs, such as warfarin, the [place] College of Chest Physicians 2012 Guideline recommends [...] 2.5 to 3.5 (target INR of 3). Mallikatt GH, et al. Chest 2012, 141:7S-47S Pablito RA, et al. [facility] 2017, 70: 252-289 Performed By: #### P T, PTT, CBC, CMP #### [facility] [employer] [address] [place], [place] [address] Type and SCR (30D)on 019 ABO/RH(D) Positive Normal [facility] Comment on above: Performed By: #### T SCR30 ####[facility] [address] [place], [place] [phone] CNPTOUTREADonnan 12-16-2018 CNPTOUTREACH Patient Outreach (UR OLMN) -- CLARENCE FLORES ([id number]) 1960 M Date Time Provider Department 12/16/18 JESSICA HERRERA) UROLMN During your visit today, we recorded the following information about you: Allergies As of Date: 12/16/2018 Noted Allergy Reaction NITROGLYCERIN 11/26/2018 14 - Other: See Comments Date Reviewed: 11/26/2018 Reviewed by: Monica Shah - Fully Assessed Visit Diagnosis:Screening for genitourinary condition [Z13.89] Order(s):UA CHEMSTRIP ONLY [SQUA] Order #: [id number] Prescriptions as of 12/16/2018 Sig: OXYCODONE 5 [...] Left renal mass [N28.89] Encounter Status:Closed by EPIC, PRODUSER on 12/31/18 Normal [facility] HISTORY PHYSICALon HISTORY PHYSICAL HNO ID: [id number] Author: Jessica Herrera Service: ? Author Type: Nurse Practitioner Type: HANDP Filed: 12/17/2018 9:57 AM Note Text: UROLOGY SURGICAL HANDP SERVICE DATE: 12/17/2018 REFERRING PROVIDER: Maico Ang MD [address] [facility] [address] PCP: Shea Beach MD GENDER: SUBJECTIVE CHIEF [...] or problems. No history of angina, CHF, MS, cardiac surgery of stents. +history of HTN [...] problems. Neurologic: No history of TIA's, stroke, AGILE COACH tumor, impaired sensorium, hemiplegia, paraplegia or quadriplegia. [...] TIME: 12:38 PM PAGER/CONTACT #: [facility] PRE-OP NOTE Clarence Flores is a 58 year old male. Pre-op Date: December 16, 2018 Date of Procedure: 12/22/2018 Procedure/Surgery: Robotic L partial Nx Diagnosis: L renal mass Primary Surgeon: MD Allie, [facility] Healthquest Score: tbd BP 169/96 [...] EKG. Jessica Herrera CNP Electronically signed Normal [facility] [place] 11-26-2018 CNOV Office Visit (UROLMN ) -- CLARENCE FLORES ([id number]) 1960 M Date Time Provider Department 11/26/18 9:00 AM MAICO ANG During your visit today, we recorded the following information about you: Pulse Blood pressure Weight Height 67/minute 165/98 118 kg 1.676 m Maico Ang MD 11/29/2018 6:01 AM Signed [facility] NEW PATIENT HISTORY AND PHYSICAL EXAM PATIENT INFO: Clarence Flores 58 year old REFERRING M.D.: Damien Sales MD [address] [facility] [address] CHIEF COMPLAINT: left renal mass 58 y/o [...] file Gets together: Not on file Attends protestant service: Not on file Active member of [...] PLAN: Per Staff Benton Dillon PA-C Pager [phone] Office [id number] I saw and evaluated the patient; the history and exam were reviewed with the PA/resident and confirmed by me; and the plan is outlined below. healthy 58 yr obese male with L lower pole [address] reviewed DW pt and family rec attempt RPNx they agree to proceed, will schedule Maico Ang MD Referring Provider: DAMIEN SALES [[id number]] Allergies As of Date: 11/26/2018 Noted Allergy [...] Status:Closed by MAICO ANG MD on 11/29/18 [facility] 11-26-2018 [facility] Patient:Clarence Flores MRN: Height:5' 6 (1.676 [...] 46.7 % 12/17/2018 51.0 39.0 Progress Notes ([facility]): Aimee Romero RN 12/21/2018 9:03 [...] PAGER/CONTACT #: addendum labs and ekg to [facility]; Aimee Romero RN Lab Value Units Date [...] MD 11/29/2018 6:01 AM Signed [facility] NEW PATIENT HISTORY AND PHYSICAL EXAM PATIENT INFO: Clarence Flores 58 year old REFERRING M.D.: Damien Sales MD [address] [place] [address] CHIEF COMPLAINT: left renal mass 58 y/o [...] file Gets together: Not on file Attends protestant service: Not on file Active member of [...] PLAN: Per Staff Benton Dillon PA-C Pager [phone] Office [id number] I saw and evaluated the patient; the history and exam were reviewed with the PA/resident and confirmed by me; and the plan is outlined below. healthy 58 yr obese male with L lower pole [address] reviewed DW pt and family rec attempt RPNx they agree to proceed, will schedule Maico Ang MD Previous Version Normal [facility] PROGRESSon 11-26-2018 PROGRESS HNO ID: [id number] Author: Maico Ang Service: ? Author Type: Physician Type: Progress Notes Filed: 11/29/2018 6:01 AM Note Text: [facility] NEW PATIENT HISTORY AND PHYSICAL EXAM PATIENT INFO: Clarence Flores 58 year old REFERRING M.D.: Damien Sales MD [address] [place] [address] CHIEF COMPLAINT: left renal mass 58 y/o [...] file Gets together: Not on file Attends protestant service: Not on file Active member of [...] PLAN: Per Staff Benton Dillon PA-C Pager [phone] Office [id number] I saw and evaluated the patient; the history and exam were reviewed with the PA/resident and confirmed by me; and the plan is outlined below. healthy 58 yr obese male with L lower pole [address] reviewed DW pt and family rec attempt RPNx they agree to proceed, will schedule Maico Ang MD Normal [facility] OT-CT CHEST W CON IMPORTon 1 OT-CT CHEST W CON IMPORT Images were obtained outside of [facility] [id number] Normal [facility] OT-CT ABDOMEN WO/W CON IMPOR Ton 11-05-2018 OT-CT ABDOMEN WO/W CON IMPORT Images were obtained outside of [facility] [id number] Normal [facility] CT-CT ABD/PELVIS WO CON IMPO RTon 10-05-2018 CT-CT ABD/PELVIS WO CON IMPORT Images were obtained outside of [facility] [id number] Normal [facility] Vital Signs Date Time Vital Sign Value Performing Clinician Facility 07-14-2023 14:01-0400 Blood Pressure Location Tariq GORDON [facility] [place] 07-14-2023 14:01-0400 Diastolic blood pressure 72 mm[Hg] Tariq GORDON [facility] [place] 07-14-2023 14:01-0400 Heart rate 74 /min Tariq GORDON [facility] [place] 07-14-2023 14:01-0400 Respiratory rate 16 /min Tariq GORDON [facility] [place] 07-14-2023 14:01-0400 Systolic blood pressure 112 mm[Hg] Tariq GORDON [facility] [place] 04-23-2023 15:37-0400 Body mass index (BMI) [Ratio] 40.84 kg/m2 Andra Ramirez APRN-PINION POLISHER Work Phone: [facility] 04-23-2023 15:37-0400 Body weight 114.76 kg Andra Ramirez BRIEFCASE SEWER-PINION POLISHER Work Phone: [facility] 04-23-2023 15:37-0400 Diastolic blood pressure 70 mm[Hg] Andra Ramirez BRIEFCASE SEWER-PINION POLISHER Work Phone: [facility] 04-23-2023 15:37-0400 Heart rate 82 /min Andra Ramirez BRIEFCASE SEWER-PINION POLISHER Work Phone: [facility] 04-23-2023 15:37-0400 Systolic blood pressure 112 mm[Hg] Andra Ramirez BRIEFCASE SEWER-PINION POLISHER Work Phone: [facility] 01-22-2023 15:36-0500 Body height 167.6 cm Andra Ramirez BRIEFCASE SEWER-PINION POLISHER Work Phone: [facility] 01-22-2023 15:36-0500 Body mass index (BMI) [Ratio] 44.87 kg/m2 Andra Ramirez BRIEFCASE SEWER-PINION POLISHER Work Phone: [facility] 01-22-2023 15:36-0500 Body weight 126.1 kg Andra Ramirez BRIEFCASE SEWER-PINION POLISHER Work Phone: [facility] 01-22-2023 15:36-0500 Diastolic blood pressure 98 mm[Hg] Andra Ramirez BRIEFCASE SEWER-PINION POLISHER Work Phone: [facility] 01-22-2023 15:36-0500 Heart rate 76 /min Andra Ramirez BRIEFCASE SEWER-PINION POLISHER Work Phone: [facility] 01-22-2023 15:36-0500 Systolic blood pressure 168 mm[Hg] Andra Ramirez BRIEFCASE SEWER-PINION POLISHER Work Phone: [facility] 2022 04:47-0400 Diastolic blood pressure 67 mm[Hg] MD Shea Beach Work Phone: [facility] 2022 04:47-0400 Heart rate 72 /min MD Shea Beach Work Phone: [facility] 2022 04:47-0400 Respiratory rate 20 /min MD Shea Beach Work Phone: [facility] 2022 04:47-0400 SaO2% (BldA) [Mass fraction] 96 % MD Shea Beach Work Phone: [facility] 2022 04:47-0400 Systolic blood pressure 147 mm[Hg] MD Shea Beach Work Phone: [facility] 11-09-2022 22:35-0400 Body height 167.64 cm MD Shea Beach Work Phone: [facility] 11-09-2022 22:35-0400 Body temperature 98 [degF] MD Shea Beach Work Phone: [facility] 11-09-2022 22:35-0400 Body weight 129.8 kg MD Shea Beach Work Phone: [facility] Encounters Encounter Date Encounter Type Care Provider Facility Start: 08-28-2023 End: 08-30-2023 ambulatory [facility]UL[facility] Start: 08-21-2023 End: 08-23-2023 ambulatory SHEA BEACH [facility] Start: 08-04-2023 End: 08-04-2023 ambulatory Tariq R NILL [facility] Start: 08-04-2023 End: 08-04-2023 Patient encounter procedure Tariq R NILL [facility] Start: 07-14-2023 End: 07-14-2023 ambulatory Tariq R NILL Facility:[facility] Start: 07-14-2023 End: 07-14-2023 Patient encounter procedure Tariq R NILL [facility] [place] Start: 06-30-2023 ambulatory Tariq NILL Facility:[facility] Start: 06-27-2023 ambulatory Tariq NILL Facility:[facility] [place] Start: 04-23-2023 End: 04-23-2023 Office outpatient visit 10 minutes Andra Ramirez BRIEFCASE SEWER-PINION POLISHER Work Phone: [facility] Comment on above: BMI 40.0-44.9, adult ([facility]) (Primary Dx); Essential hypertension Start: 01-22-2023 End: 01-22-2023 Office outpatient visit 15 minutes Andra Ramirez BRIEFCASE SEWER-PINION POLISHER Work Phone: [facility] Comment on above: Essential hypertensi on (Primary Dx); Chest pain, unspecified type; Obstructive sleep apnea; Diabetes mellitus type II, non insulin dependent ([facility]); Hypertensive left ventricular hypertrophy, without heart failure; BMI 40.0-44.9, adult ([facility]) Start: 12-16-2022 End: 12-16-2022 Subsequent hospital visit by physician Gema Richard Stress Room 1 [facility] Start: 2022 End: 11-12-2022 ambulatory Claudia Parra Facility:[facility] Start: 2022 Evaluation and manag ement of inpatient MD Shea Beach Work Phone: [facility] Work Phone: Start: 2022 observation encounter MD Ewa Beach Work Phone: [facility] Work Phone: Start: 11-24-2021 End: 11-25-[address] SHEA BEACH Facility:[facility] Start: 11-07-2021 Encounter for genera l adult medical examination without abnormal findings DR SHEA BEACH [facility] Start: 11-03-2021 End: 11-03-[address] SHEA [...] above: Performed By: #### C MP #### [facility] [address] [place], [place] [address] Dr. Sunny Ortez Start: 12-17-2018 Antibody screen Comment on above: Performed By: #### T SCR30 ####[facility] [address] [place], [place] [phone] Partial nephrectomy Tariq GORDON Plan of Treatment Date Care Activity Detail Author Start: 01-20-2024 End: 01-20-2024 Patient encounter procedure 01/20/2024 3:30 PM EST Office Visit [facility] [address] [place] [phone] Mike Morelos DO [address] [facility] [address] [place] [address] [facility] Start: 03-25-2023 End: 03-25-2023 Patient encounter procedure 03/25/2023 3:30 PM EST Office Visit [facility] [address] [place] [address] Andra Ramirez, BRIEFCASE SEWER-PINION POLISHER [address] [place] [address] [facility] Start: 12-17-2022 End: 12-17-2022 Professional / ancillary services management [facility] Start: 2022 Blood chemistry [facility] Start: 2022 Hospital admission [facility] Start: 2022 End: 2022 [facility] Start: 2022 Plain chest X-ray XR chest 2V* [facility] Start: 2022 XR Chest 2 Views [facility] Start: 10-11-2022 Influenza vaccination Influenza Vaccine (#1) [facility] Start: 2012 Zoster Vaccines (1 of 2) Zoster Vaccines (1 of 2) [facility] Start: 1984 DTaP/Tdap/Td Vaccines (1 - Tdap) DTaP/Tdap/Td Vaccines (1 - Tdap) [facility] Start: 1981 Urine screening for protein Diabetes: Urine Protein Screening [facility] Start: 1980 Hepatitis C screening Hepatitis C Screening [facility] Start: 1972 Diabetic foot examination Diabetes: Foot Exam [facility] Start: 1972 Glaucoma screening Diabetes: Retinopathy Screening [facility] Start: 1968 Pneumococcal Vaccine: Pediatrics (0 to 5 Years) and At-Risk Patients (6 to 64 Years) (1 - PCV) Pneumococcal Vaccine: Pediatrics (0 to 5 Years) and At-Risk Patients (6 to 64 Years) (1 - PCV) [facility] Start: 11-11-1963 MMR Vaccines (1 of 1 - Standard series) MMR Vaccines (1 of 1 - Standard series) [facility] Start: 05-12-1963 COVID-19 Vaccine (#1) COVID-19 Vaccine (#1) [facility] Start: 1962 Hemoglobin A1c measurement Diabetes: Hemoglobin A1C [facility] Start: 1962 HIV screening HIV Screening [facility] Start: 1962 Lipid panel Lipid Panel [facility] Start: 1962 Screening for malignant neoplasm of colon [facility] Start: 1962 Yearly Adult Physical Yearly Adult Physical [facility] Anion gap measurement [facility] Calculated LDL cholesterol level [facility] Cholesterol.total/Ch oles terol in HDL [Mass Ratio] in Serum or Plasma [facility] Glucose measurement estimated from glycated hemoglobin [facility] NM Heart Perfusion W stress and W radionuclide IV Nuclear Stress Test Cardiac Nuclear Medicine Routine Chest pain, unspecified type 12/16/2022 8:08 AM EST [facility] Service Area Work Phone: VLDL cholesterol measurement [facility] Payers Date Payer Category Payer Unknown [id number] 2022 Self-pay 2022 Unknown [id number] 2022 Private Health Insurance [facility] [id number] 2022-Present [address] [place] [address] [id number] 2022 Unknown [id number] [id number] 1960 Unknown [id number] 2.16.840.1.483799.3.579.2.5 93 1962 Unknown [id number] 2.16.840.1.070992.3.579.2.5 93 1962 Unknown [id number] 2.16.840.1.656036.3.579.2.5 93 1962 Unknown [id number] 2.16.840.1.148302.3.579.2.5 93 1962 Unknown [id number] 2.16.840.1.164141.3.579.2.5 93 1962 Unknown [id number] 2.16.840.1.971384.3.579.2.5 93 1962 Unknown [id number] 2.16.840.1.626671.3.579.2.5 93 1962 Unknown [id number] 2.16.840.1.528322.3.579.2.5 93 1962 Unknown [id number] 2.16.840.1.305751.3.579.2.5 93 1962 Unknown [id number] 2.16.840.1.322855.3.579.2.5 93 1962 Unknown [id number] 2.16.840.1.272262.3.579.2.7 27 1962 Unknown [id number] 2.16.840.1.115701.3.579.2.7 27 1962 Unknown [id number] 2.16.840.1.160703.3.579.2.1 73 1962 Unknown [id number] 2.16.840.1.658612.3.579.2.1 73 1962 Unknown [id number] 2.16.840.1.935696.3.579.2.1 73 1962 Unknown [id number] 2.16.840.1.306342.3.579.2.1 73 1959 Unknown [id number] 1959 Unknown [id number] Unknown [place] BC/BS [id number] Unknown [id number] 2.16.840.1.242360.3.579.2.5 31 Social History Date Type Detail Facility Start: 2022 End: 07-14-2023 Tobacco smoking status NHIS Never smoked tobacco (finding) [facility] Start: 1960 Sex Assigned At Male [facility] Tobacco smoking stat us MSIS Tobacco smoking consumption unknown [facility] Work Phone: Start: 12-16-2022 Gender identity Identifies as male gender (finding) [facility] Work Phone: Start: 12-16-2022 Sexual orientation Heterosexual (finding) [facility] Work Phone: Start: 12-06-2022 End: 04-23-2023 Exposure to SARS-CoV-2 (event) Not sure [facility] Start: 01-22-2023 Tobacco use and exposure Smokeless tobacco non-user [facility] Work Phone: Start: 01-22-2023 End: 04-23-2023 Alcohol intake Lifetime non-drinker (finding) [facility] Work Phone: Start: 01-22-2023 End: 04-23-2023 History of Social function [facility] Work Phone: Start: 01-22-2023 End: 04-23-2023 Tobacco use panel [facility] Tobacco smoking status Never [facility] Functional Status Date Assessment Result Facility 08-04-2023 Functional Status N/A [facility] 07-14-2023 Functional Status N/A [facility] Clinical Notes 01-22-2023 to 08-04-2023 [facility] - 04/23/2023 3:30 PM EDTPatient InstructionsAssessment & Plan Note - [facility] - 01/23/2023 12:01 PM [facility] 01/22/[facility]23 3:30 PM EST Note Date & Type Note Facility 08-04-2023 Note Patient: CLARENCE FLORES Age: 62 years Sex: Male : 1960 Associated Diagnoses: None Author: Tariq GORDON MD Subjective no changes to H & P [facility] Comment on above: Result Comment: Elec tronically Signed By: Tariq GORDON MD\.br\Date and Time Signed: 08/04/23 07:34 EDT 07-14-2023 Note Chief Complaint consultation for positive occult stool HPI Staff 62 year old male presents on consultation from Dr. Beach for positive occult stool. Denies noting blood in stool. Denies abdominal or rectal pain. Reports some bowel changes and GI upset after starting Ozempic. No unexplained weight loss. Never had colonoscopy in the past. No known family history of colon cancer. History of Present Illness 62 yo male with h/o htn, DMII, referred for positive fecal occult blood; denies change in bms or gross blood in stools, no abd complaints; abd operations significant for partial nephrectomy; no previous colonoscopy; no asa or NSAID use; no tobacco use; no fmhx of GI malignancy or IBD. Review of Systems PHQ Score Initial Depression Screen Score: 0 SCORE ROS - Provider Constitutional: no fever, no sweats, no weight loss. Eyes: no glasses, no blurred vision, no visual loss. ENMT: no dentures, no hoarseness, no swallowing difficulties, no hearing loss, no ear infection(s), no nose bleeds. Cardiovascular: normal blood pressure, no chest pain, regular heartbeat, no heart murmur. Respiratory: no shortness of breath, no cough, no asthma, no wheezing. Gastrointestinal: no nausea, no vomiting, no diarrhea, no constipation, no blood in stool, no change in bowel habits, no abdominal pain, no hepatitis. Genitourinary: no kidney stones, no urine infection, no dysuria. Musculoskeletal: no pain, no weakness. Skin: no changing moles, no rash, no skin lumps. Neurologic: no seizures, no epilepsy, no headache. Psychiatric: no emotional or psychiatric problem. Heme/Lymph: no bleeding problems, no anemia, no blood clots, no transfusions. Allergy/Immunologic: no swollen lymph nodes/glands, no IV drug abuse. Other: Additional ROS info: Except as noted in the above Review of Systems and in the History of Present Illness, all other systems have been reviewed and are negative or noncontributory. Physical Exam Vitals & Measurements HR: 74(Peripheral) RR: 16 BP: 112/72 HT: 66 in HT: 167.6 cm WT: 109.7 kg WT: 241.34 lb BMI: 39.05 HEENT: normal conjunctiva, sclera clear, no scleral icterus, EOM intact, PERRLA, oral mucosa moist without lesions. Neck: trachea midline, no mass, symmetric, no thyromegaly or nodules, no adenopathy Respiratory: lungs CTA, respirations non labored. Cardiovascular: regular rate and rhythm, no murmur, no pedal edema or varicosities. Gastrointestinal: obese, soft, non distended, no tenderness, no masses, no palpable hernias, diastasis recti no, no hepatosplenomegaly; normal bs Lymphatic: no cervical adenopathy, no supraclavicular adenopathy. Musculoskeletal: normal gait, digits and nails without infection, nodes, cyanosis, clubbing. Skin: no rashes, no lesions, no ulcers, no subcutaneous nodules, induration. Psychiatric/Neuro: oriented to time, place, person, judgement normal, affect appropriate for age, insight intact, no focal deficits. Tests: labs reviewed,, review of old records completed , Discussed surgical options, risks, and possible complications with patient. Assessment/Plan 1. Positive fecal occult blood test (R19.5: Other fecal abnormalities) plan colonoscopy under anesthesia for further evaluation, informed consent obtained. Follow-up No qualifying data available Problem List/Past Medical History Ongoing BMI 39.0-39.9,adult Class 3 obesity Essential hypertension Neoplasm of kidney Positive fecal occult blood test Type 2 diabetes mellitus Historical No qualifying data Procedure/Surgical History Partial nephrectomy. Medications doxazosin 4 mg Tab, 4 mg= 1 tab(s), Oral, Daily hydrochlorothiazide 25 mg Tab, 25 mg= 1 tab(s), Oral, Daily Jardiance 10 mg oral tablet, 10 mg= 1 tab(s), Oral, qAM MetFORMIN (Eqv-Glucophage XR) 500 mg oral tablet, extended release, 1000 mg= 2 tab(s), Oral, Daily metoprolol 100 mg ER Tab, 150 mg= 1.5 tab(s), Oral, Daily Ozempic 8 mg/3 mL (2 mg dose) subcutaneous solution, 2 mg, SubCutaneous, qWeek valsartan 160 mg Tab, 160 mg= 1 tab(s), Oral, Daily Allergies nitroglycerin (Hypotension) Social History Alcohol - Denies Alcohol Use, 07/14/2023 Substance Abuse - Denies Substance Abuse, 07/14/2023 Tobacco Never (less than 100 in lifetime) Tobacco Use:. Never Smokeless Tobacco Use:., 07/14/2023 Family History Heart disease: Father and Sister. Ovarian cancer: Mother. [facility] Comment on above: Result Comment: Elec tronically Signed By: EVAN SARAH, Tariq Perkins\Date and Time Signed: 07/14/23 14:28 EDT 04-23-2023 History of Present illness Narrative Subjective: [...] sodium restriction. Annual follow-up Andra Ramirez MSN, JOSÉ MIGUEL-AMBREEN, PMHNP-[facility] Please excuse any errors in grammar or translation related to this dictation. Voice recognition software was utilized to prepare this document.. documented in this encounter [facility] Work Phone: 04-23-2023 Instructions SUGEY [...] Morelos 9 months documented in this encounter [facility] Work Phone: 01-23-2023 Evaluation + Plan note Associated Problem(s): BMI 40.0-44.9, adult (CMS/HCC) Recently started treatment with Ozempic Weight is down 10 pounds Reviewed the merits of healthy lifestyle choices on overall cardiovascular health. [facility] Work Phone: 01-23-2023 Miscellaneous Notes [...] METS. EF 59%. documented in this encounter [facility] Work Phone: 01-23-2023 Evaluation + Plan note Associated Problem(s): Obstructive sleep apnea Remains compliant with CPAP [facility] Work Phone: 01-23-2023 Evaluation + Plan note Associated Problem(s): Diabetes mellitus type II, non insulin dependent (CMS/HCC) On ARB No statin Unknown hemoglobin A1c [facility] Work Phone: 01-23-2023 Evaluation + Plan note Associated Problem(s): Hypertensive left ventricular hypertrophy, without heart failure November 2022 TTE LVEF greater than 70% LVH moderate MR trace [facility] Work Phone: 01-23-2023 Evaluation + Plan note Associated Problem(s): Essential hypertension He has been compliant with addition of doxazosin and valsartan since discharge. Reports PCP stopped hydrochlorothiazide. Remains elevated in office today [facility] Work Phone: 01-23-2023 Evaluation + Plan note Associated Problem(s): Cardiac and Vasculature November 2022 hospitalization for chest pressure, ruled out ACS. Inpatient echo EF greater than 70%, no wall motion abnormality. Subsequent December 2022 perfusion study no ischemia, no infarct. Completed 4 METS. EF 59%. [facility] Work Phone: 01-22-2023 History of Present illness Narrative Chief Complaint Doing fine Reason for Visit Patient presents to the office today for outpatient follow-up for hospital follow up. Patient was recently hospitalized at [facility]. The patient was seen in Cardiology consult with subsequent cardiovascular management by [facility] Hospitalization records have been reviewed. Reason for Cardiology Consultation: Chest pressure, accelerated hypertension Consulting Emt I/99: Dr. Morelos Cardiovascular testing: Echocardiogram, outpatient perfusion study Changes to cardiovascular medical regimen at time of discharge: Added Cardura 8 mg, valsartan 320 mg, hydrochlorothiazide Discharge disposition: Home This is initial in clinic evaluation at [facility] Presents today ambulatory with steady gait. Accompanied [...] mellitus type II, non insulin dependent ([facility]) On ARB No statin Unknown hemoglobin A1c Obstructive sleep apnea Remains compliant with CPAP BMI 40.0-44.9, adult ([facility]) Recently started treatment with Ozempic Weight is [...] contact the office if new symptoms arise. [employer] SUPERVISOR after 2 months Andra Ramirez MSN, [employer] SEWER-PINION POLISHER, PMHNP-[facility] Please excuse any errors in grammar or translation related to this dictation. Voice recognition software was utilized to prepare this document. documented in this encounter [facility] Work Phone: 01-22-2023 Instructions SUGEY [...] contact the office if new symptoms arise. [employer] SUPERVISOR after 2 months documented in this encounter [facility] Work Phone: Evaluation + Plan note Future Appointments Appointment Date:08/04/2023 08:30:00 AM Scheduled Provider: Location:[facility] Appointment Type:Surgery [facility] [place] Evaluation note Diagnosis Onset Date Chest pain acute Hypertensive urgency acute [facility] Work Phone: Evaluation note* Diagnosis Essential hypertension- Primary Unspecified essential hypertension Chest pain, unspecified type Obstructive sleep apnea Obstructive sleep apnea (adult) (pediatric) Diabetes mellitus type II, non insulin dependent ([facility]/HCC) Type II or unspecified type diabetes mellitus without mention of complication, not stated as uncontrolled Hypertensive left ventricular hypertrophy, without heart failure BMI 40.0-44.9, adult ([facility]/HCC) documented in this encounter [facility] Work Phone: Evaluation note* Diagnosis BMI 40.0-44.9, adult (CMS/HCC)- Primary Essential hypertension Unspecified essential hypertension documented in this encounter [facility] Work Phone: Hospital course Narrative No data available for this section [facility] Discharge instructions No data available for this section [facility] Progress note No data available for this section [facility] Reason for referral (narrative)* Consultation (Routine) - Authorized Specialty Diagnoses / Procedures Referred By Contsharmin t Referred To Contact Cardiology Diagnoses Essential hypertension Procedures Follow Up In Cardiology Andra Ramirez APRN-AMBREEN [address], [employer] [address] [place] [address] Referral ID Status Reason Start Date Expiration Date V isits Requested Visits Authorized [id number] Authorized 01/22/2023 01/22/2024 1 1 [facility] Work Phone: Reason for referral (narrative)* Consultation (Routine) - Authorized Specialty Diagnoses / Procedures Referred By Callum long Referred To Contact Cardiology Diagnoses Essential hypertension Procedures Follow Up In Cardiology Andra Ramirez APRN-CNP [address] [place] [address] Mike Morelos DO [address] [place] [address] Referral ID Status Reason Start Date Expiration Date V isits Requested Visits Authorized [id number] Authorized 04/23/2023 04/22/2024 1 1 [facility] Work Phone: Summary Purpose Family History No Family History Records FoundNo Family History Records FoundNo Family History Records Found No data available for this section No data available for this section No Family History Records FoundNo Family History Records Found Advance Directives No Advanced Directives Records Found Advance Directive Response Recorded Date/ Time Advance Directives No 2022 1:53am Hospital Course Note HNO ID: [id number] Author: Delonte pham ([facility]) Hrnchar Service: Urology Author Type: Nurse Practitioner [...] ized section and content) DATE CREATED AUTHOR 06/26/2019 [facility] DATE CREATED AUTHOR AUTHOR'S ORGANIZ ATION 12/03/2021 [facility] DATE CREATED AUTHOR AUTHOR'S ORGANIZ ATION 11/23/2022 [facility] DATE CREATED AUTHOR AUTHOR'S ORGANIZ ATION 08/08/2023 Eladio Gee [facility] DATE CREATED AUTHOR AUTHOR'S ORGANIZ ATION 09/01/2023 [facility] Care Teams (unrecognized sec tion and content) Team Status: Active Member Role Status Dates Shea Beach MD Primary Care Provider Active Team Status: Active Member Role Status Dates Shea Beach MD Primary Care Provider Active Damien Hercules DO Emergency Provider Active Derick Gomes MD Admit Provider, Attending Provi jefferson Active Technical Solutions Consultant Relationship Specialty Start Date End Date Shea Beach MD [address] [place] [address] PCP - General Family Medicine 11/13/22 Technical Solutions Consultant Relationship Specialty Start Date End Date Shea Beach MD [address] [place] [address] PCP - General Family Medicine 11/13/22 Technical Solutions Consultant Relationship Specialty Start Date End Date Shea Beach MD [address] [place] [address] PCP - General Family Medicine 11/13/22 Technical Solutions Consultant Relationship Specialty Start Date End Date Shea Beach MD [address] [place] [address] PCP - General Family Medicine 11/13/22 Goals (unrecognized section and content) Goals may be documented in a n alternate section No data available for this section No data available for this section Reason for Visit (unrecogniz ed section and content) Specialty Diagnoses / Procedures Referred By Contac t Referred To Contact Radiology Diagnoses Chest pain, unspecified type Procedures Nuclear Stress Test CHG MYOCARDIAL SPECT MULTIPLE STUDIES CHG MYOCARDIAL SPECT SINGLE STUDY AT REST OR STRESS OK CV STRS TST XERS&/OR RX CONT ECG W/O I&R OK CV STRS TST XERS&/OR RX CONT ECG I&R ONLY OK CV STRS TST XERS&/OR RX CONT ECG TRCG ONLY OK CV STRS TST XERS&/OR RX CONT ECG W/SI&R Mike Morelos, DO [address], [employer] [address] [place] [address] Referral ID Status Reason Start Date Expiration Date V isits Requested Visits Authorized [id number] Authorized 11/13/2022 05/12/2023 5 5 Reason Comments Shortness of Breath Chest pressure Specialty Diagnoses / Procedures Referred By Contac t Referred To Contact Cardiology Diagnoses Chest pain, unspecified type Procedures Follow Up In Cardiology Mike Morelos, DO [address] [facility] [address], [address] [place] [address] Mike Morelos, DO [address], [employer] [address] [place] [address] Referral ID Status Reason Start Date Expiration Date V isits Requested Visits Authorized [id number] Authorized 01/06/2023 01/06/2024 1 1 Reason Comments Follow-up 1 month Specialty Diagnoses / Procedures Referred By Contac t Referred To Contact Cardiology Diagnoses Essential hypertension Procedures Follow Up In Cardiology Andra Ramirez, [employer] SEWER-PINION POLISHER [address] [facility] [address], [employer] [address] [place], [place] [id number] Referral ID Status Reason Start Date Expiration Date V isits Requested Visits Authorized [id number] Authorized 03/25/2023 03/24/2024 1 1 FOR RECORDS [...] BE BASED ON THE PRIMARY CLINICAL RECORDS. [facility] [place] [facility]. provides no warranty or guarantee of the accuracy or completeness of information in this document.
[2023-09-17 08:48] LABS: Glucometer 108 mg/dL (74-106)
[2023-09-17 08:49] VITALS: BP 128/80; PULSE 91; TEMP 35.4; O2SAT 96; BMI 35.7; BMI 49.6
[2023-09-17 09:42] VITALS: BP 72/44; PULSE 86; TEMP 36.6; O2SAT 95
--- NOTE | 2023-09-17 09:55 | ECG_ITS ---
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
[2023-09-17 10:00] VITALS: BP 113/76; PULSE 145; O2SAT 97
[2023-09-17 10:10] VITALS: BP 101/65; PULSE 141; O2SAT 96
--- NOTE | 2023-09-17 10:28 | PC.NURSE ---
PATIENT IN AND OUT OF AFIB. STATES HE DOESN'T FEEL ANYTHING NOW, BUT WAS HAVING HEART RACING AT HOME. EKG DONE. DR. BEACH NOTIFIED. PT TRANSFERRED TO ER AT 1010. Kailyn SÁNCHEZ RN
== END 2023-09-17 10:10 | disposition home or self-care (01) ==
PROVIDERS: PCP Family Medicine; Visit Provider Surgery
PROC: (CPT 811; principal; 2023-09-17 09:10)
DX: R19.5 Other fecal abnormalities (principal); K62.1 Rectal polyp; K57.30 Diverticulosis of large intestine without perforation or abscess without bleeding; I10 Essential (primary) hypertension; E11.9 Type 2 diabetes mellitus without complications; Z79.84 Long term (current) use of oral hypoglycemic drugs; Z79.85 Long-term (current) use of injectable non-insulin antidiabetic drugs; Z90.5 Acquired absence of kidney; G47.33 Obstructive sleep apnea (adult) (pediatric)
CPT/HCPCS: 45380; 36415; 82948; 93005; J2704

== ENCOUNTER 2023-09-17 10:16 | Observation (INO) | payer OTHER, SELFPAY ==
[2023-09-17] VITALS (31 sets, daily range): BP systolic 94–131; BP diastolic 65–84; PULSE 63–141; TEMP 36.6–36.7; O2SAT 92–99; BMI 35.6
--- NOTE | 2023-09-17 10:39 | XR_ITS ---
The [address] [address] Patient Name: BOB CHASE MRN: [id number] date: 1960 Sex: M Assigned Patient Location: ER Current Patient Location: ER Accession/Order Number: [id number] Exam Date: 09/17/2023 10:55 Report Date: 09/17/2023 11:21 At the request of: FREDDIE OSBORNE Procedure: XR chest 1V EXAMINATION: XR chest 1V HISTORY: tachardia COMPARISON: No relevant comparison available. FINDINGS: LUNGS: Mild haziness within lower left lung. Right lung is clear. VASCULATURE: No increased pulmonary vasculature. PLEURA: No pneumothorax, effusion, or pleural thickening. CARDIAC: No cardiomegaly or cardiac silhouette abnormality. MEDIASTINUM: No visible mass or adenopathy. BONES: No fracture or visible bone lesion. OTHER: Negative. XR/XR chest 1V IMPRESSION: 1. Trace amount of left basilar atelectasis, or possibly infiltrates. Electronically authenticated by: ELVIN JENKINS Date: 09/17/2023 11:21
--- OUTSIDE RECORDS SUMMARY | 2023-09-17 10:43 | XMS_ITS | CCD ---
Author Organization [facility] CliniSyri Care Team Providers Care Caretaker Name Role Phone YONG, DR VALDIVIA Consulting [...] Care Provider DO Damien Hercules Emergency Provider MD Derick Gomes Admit Provider [phone] MD Derick Gomes Attending Provider [phone] Claudia Parra Consulting Unavailable Shea [place] Primary [...] Care Provider [place] Primary Care Physician Tariq GORDON Attending Unavailable Shea [place] Referring [...] (1 source) Nitroglycerin; Translations: [nitroglycerin] Drug Allergy [facility] Repository (1 source) Aminolevulinic Acid Drug Allergy 0 Repository (4 sources) Nitroglycerin; Translations: [nitroglycerin] Drug Allergy 9 Other, Low blood pressure (disorder) [facility] Medications Current Medications Medication Drug Class(es) [...] Rudi Blackwood MD 08/28/23 Final result Normal [facility] CT ABDOMEN PELVIS W IV CONTR Nell [...] Rogelio Bartlett MD 08/26/23 Final result Normal [facility] BUN + Creatinineon 4 Creatinine [Mass/Vol] 1.3 mg/dL High 0.7-1.2 [facility] Comment on above: Performed By: #### B UNCRT #### [facility] [address] [place] [address] Production Line Technician: Steve Haro MD #### PSAD #### [facility] [employer] [address] [place] [address] Production Line Technician: Bk Guerrero MD GFR/1.73 sq M.predicted among non-blacks MDRD (S/P/Bld) [Vol rate/Area] 63 mL/min/{1.73_m2} Normal >60 [facility] Comment on above: Result Comment: These results [...] secretion. Performed By: #### B UNCRT #### [address] [place] [address] Production Line Technician: Steve Haro MD #### PSAD #### [address] [id number] Production Line Technician: Bk Guerrero MD Urea nitrogen [Mass/Vol] 14 mg/dL Normal 8-23 [facility] Comment on above: Performed By: #### B UNCRT #### [address] [place] [address] Production Line Technician: Steve Haro MD #### PSAD #### [address] [id number] Production Line Technician: Bk Guerrero MD PSA, [employer] 08-21-2023 Prostatic Spec. Ag 4.30 ng/mL High 0.00-4.00 [facility] Comment on above: Result Comment: The Luther ECLIA assay is used. Results obtained with different assay methods cannot be used interchangeably. Performed By: #### B UNCRT #### [address] [place] [address] Production Line Technician: Steve Haro MD #### PSAD #### [place] [id number] [place], [place] [id number] Production Line Technician: Bk Guerrero MD Consent for Procedure/Surger yon 08-06-2023 Consent for Procedure/Surgery [id number]#[id number] [facility] Consent for Treatmenton 07-12 Consent for Treatment [id number]#1.00TIFF [facility] Main OR Preoperative Recordo n 08-04-2023 Main OR Preoperative Record Holding Area Document Type FT Summary Primary Physician: Tariq GORDON MD Finalized Date/Time: 08/04/23 08:14:07 Pt. Name: RENACLARENCE/Sex: 1960 Male Med Rec #: [id number] Physician: Tariq GORDON MD Financial #: [id number] Pt. Type: O Room/Bed: / Admit/Disch: 08/04/23 [...] 08/04/23 07:43 Elizabeth Sorto RN 08/04/23 08:14 [facility] Consent for Procedure/Surger yon 07-15-2023 Consent for Procedure/Surgery [id number]#1.00TIFF [facility] Ambulatory Visit Summaryon 0 07-14-2023 Ambulatory [...] for choosing us for your care. Normal [facility] Physician Referralon 024 Physician Referral [id number]#1.00TIFF Normal [facility] NM Heart Perfusion W stress and [...] Eric Villa 12/17/2022 5:57 PM Dictation workstation: [id number] Interpreted By: Eric Villa and Giannuzzi Michael STUDY: MYOCARDIAL PERFUSION STRESS TEST WITH EXERCISE Performing facility: [facility], [address] [place] [address], [address], [address] Provider: Chaim Morelos DO, [facility] PCP: Dr. Beach Supervising provider: Andra Ramirez RN, CARPENTER ROUGH INDICATION: Chest Pain; HISTORY: Gender: M; Age: 62 y/o ; Height: cm; Weight: kg. Diabetes; Family HX CAD; HTN; SOB; Denies smoking. COMPARISON: No comparison. ACCESSION NUMBER(S): [id number] ORDERING CLINICIAN: MIKE MORELOS TECHNIQUE: TWO DAY [...] PERFUSION STRESS TEST WITH EXERCISE Performing facility: [facility], [address] [place] [address], [address], [address] Provider: Chaim Morelos DO, FACC PCP: Dr. [place] Supervising provider: Andra Ramirez RN, CARPENTER ROUGH INDICATION: Chest Pain; HISTORY: Gender: M; Age: 62 y/o ; Height: cm; Weight: kg. Diabetes; Family HX CAD; HTN; SOB; Denies smoking. COMPARISON: No comparison. ACCESSION NUMBER(S): [id number] ORDERING CLINICIAN: MIKE MORELOS TECHNIQUE: TWO DAY [...] Eric Villa 12/17/2022 5:57 PM Dictation workstation: [id number] [facility] Work Phone: NM Heart Perfusion W stress and W radionuclide IVOrdered By: Eric Villa on 12-17-2022 [facility] Work Phone: NM Heart Perfusion W stress and W radionuclide Karen 12-16-2022 Radiology Study observation (narrative) [facility] Work Phone: Glucose Poct Glucometerson 1 Glucose [Mass/Vol] 132 mg/dL Normal [facility] Comment on above: Result Comment: [facility] Glucose Reference Range is dependent on time and content of last meal. Glucose of more than 200 mg/dL in a nonstressed, ambulatory subject supports the diagnosis of Diabetes Mellitus. PERFORMED BY: [place] [address] PATHOLOGIST DANCING MASTER ROSCOE CASTRO M.D. Performed By: #### C BC, BMP, BNP, HS TROP, CK #### [address] Glucose [Mass/Vol] 141 mg/dL Normal [facility] Comment on above: Result Comment: [facility] Glucose Reference Range is dependent on time and content of last meal. Glucose of more than 200 mg/dL in a nonstressed, ambulatory subject supports the diagnosis of Diabetes Mellitus. PERFORMED BY: [place] [address] PATHOLOGIST DANCING MASTER ROSCOE CASTRO M.D. Performed By: #### C BC, BMP, BNP, HS TROP, CK #### [address] echo transthoracicon [facility] echo transthoracic [facility] [place] [address] [place] [address] Echocardiogram Signed Patient: Clarence Flores MR#: [id number] : 1960 Acct:[id number] Age/Sex: 62 / M ADM Date: 11/10/22 Loc: Room: [address] [place] [address] Type: ADM INOo Attending Dr: Moises Carver Ordering Provider: Maura Venegas MD Date of Service: 11/10/2203/04/1501 [facility]/ECH echo transthoracic: chest pain Copies to: MD [...] Signed By: Lalita Capellan MD 11/12/22 1033 [facility] Glucose Poct Glucometerson 1 Glucose [Mass/Vol] 156 mg/dL [facility] Comment on above: Result Comment: [place] [facility] Glucose Reference Range is dependent on time and content of last meal. Glucose of more than 200 mg/dL in a nonstressed, ambulatory subject supports the diagnosis of Diabetes Mellitus. PERFORMED BY: [place] [address] PATHOLOGIST DANCING MASTER ROSCOE CASTRO M.D. Performed By: #### G MECCA #### Point of Care testing , Glucose [Mass/Vol] 187 mg/dL Normal [facility] Comment on above: Result Comment: [place] [facility] Glucose Reference Range is dependent on time and content of last meal. Glucose of more than 200 mg/dL in a nonstressed, ambulatory subject supports the diagnosis of Diabetes Mellitus. PERFORMED BY: [place] [address] PATHOLOGIST DANCING MASTER ROSCOE CASTRO M.D. Performed By: #### C BC, BMP, BNP, HS TROP, CK #### [address] Glucose [Mass/Vol] 162 mg/dL Normal [facility] Comment on above: Result Comment: [place] [facility] Glucose Reference Range is dependent on time and content of last meal. Glucose of more than 200 mg/dL in a nonstressed, ambulatory subject supports the diagnosis of Diabetes Mellitus. PERFORMED BY: [place] [id number] PATHOLOGIST DANCING MASTER ROSCOE CASTRO M.D. Performed By: #### C BC, BMP, BNP, HS TROP, CK #### [place] [id number] [place] A1C with Estimated Average G [facility] 2022 Glucose [Mass/Vol] 157 mg/dL Normal [facility] Comment on above: Order Comment: Comme nt add Result Comment: PERF ORMED BY: [place] [address] PATHOLOGIST DANCING MASTER ROSCOE CASTRO M.D. Performed By: #### C BC, BMP, BNP, HS TROP, CK #### [place] [id number] [place] HbA1c (Bld) [Mass fraction] 7.1 % High 4.3-5.6 [facility] Comment on above: Order Comment: Comme nt add Result Comment: Incr eased risk for diabetes: 5.7 - 6.4 diabetes: >6.4 glycemic control for adults with diabetes: <7.0 Performed By: #### C BC, BMP, BNP, HS TROP, CK #### [address] Activated partial thrombopla stin time (aPTT) in platelet poor plasma by coagulation aOrdered By: Damien Hercules on 2022 aPTT Coag (PPP) [Time] 29.0 s 25.1-36.5 [facility] Comment on above: A hematocrit value g reater than 55% may lead to inaccurate results in coagulation testing. Patients having hematocrit values >55% require a special collection tube for coagulation studies. Please contact the laboratory at [phone] for redraw instructions. B-Type Natriuretic Peptideon 2022 Natriuretic peptide B (Bld) [Mass/Vol] 101.0 pg/mL High 5-100 [facility] Comment on above: Result Comment: PERF ORMED BY: [place] [address] PATHOLOGIST DANCING MASTER ROSCOE CASTRO M.D. Performed By: #### C BC, BMP, BNP, HS TROP, CK #### [address] Basic Metabolic Panelon Anion gap [Moles/Vol] 11.3 mmol/L Normal 6.0-15.0 [facility] Comment on above: Performed By: #### B MP #### [address] Calcium [Mass/Vol] 9.2 mg/dL Normal 8.6-10.3 [facility] Comment on above: Performed By: #### B MP #### [place] [address] [place] Chloride [Moles/Vol] 106 mmol/L Normal 98-107 [facility] Comment on above: Performed By: #### B MP #### [facility] [address] [place] [address] [place] CO2 [Moles/Vol] 25.2 mmol/L Normal 21.0-31.0 [facility] Comment on above: Performed By: #### B MP #### [facility] [address] [place] [address] [place] Creatinine [Mass/Vol] 1.22 mg/dL Normal 0.70-1.30 [facility] Comment on above: Performed By: #### B MP #### [facility] [address] [place] [address] [place] Creatinine Clr Calc Pharmacy 82.15 Normal [facility] Comment on above: Result Comment: PERF ORMED BY: [place] [address] PATHOLOGIST DANCING MASTER ROSCOE CASTRO M.D. Performed By: #### B MP #### [place] [address] [place] GFR/1.73 sq M.predicted MDRD (S/P/Bld) [Vol rate/Area] mL/min/{1.73_m2} Normal [facility] Comment on above: Performed By: #### B MP #### [address] Glucose [Mass/Vol] 298 mg/dL Significant change up 70-100 [facility] Comment on above: Result Comment: [place] Glucose Reference Range is dependent on time and content of last meal. Glucose of more than 200 mg/dL in a nonstressed, ambulatory subject supports the diagnosis of Diabetes Mellitus. ADA recommended reference range Performed By: #### B MP #### [facility] [address] [place] [address] [place] Potassium [Moles/Vol] 3.5 mmol/L Normal 3.5-5.1 [facility] Comment on above: Performed By: #### B MP #### [place] [address] [place] Sodium [Moles/Vol] 139 mmol/L Normal 136-145 [facility] Comment on above: Performed By: #### B MP #### [facility] [address] Urea nitrogen [Mass/Vol] 13 mg/dL Normal 7-25 [facility] Comment on above: Performed By: #### B MP #### [address] Anion gap [Moles/Vol] 10.4 mmol/L Normal 6.0-15.0 [facility] Comment on above: Performed By: #### C BC, BMP, BNP, HS TROP, CK #### [address] Calcium [Mass/Vol] 9.0 mg/dL Normal 8.6-10.3 [facility] Comment on above: Performed By: #### C BC, BMP, BNP, HS TROP, CK #### [address] Chloride [Moles/Vol] 106 mmol/L Normal 98-107 [facility] Comment on above: Performed By: #### C BC, BMP, BNP, HS TROP, CK #### [address] CO2 [Moles/Vol] 26.2 mmol/L Normal 21.0-31.0 [facility] Comment on above: Performed By: #### C BC, BMP, BNP, HS TROP, CK #### [address] Creatinine [Mass/Vol] 1.39 mg/dL High 0.70-1.30 [facility] Comment on above: Performed By: #### C BC, BMP, BNP, HS TROP, CK #### [address] Creatinine Clr Calc Pharmacy 72.10 Normal [facility] Comment on above: Result Comment: PERF ORMED BY: [place] [address] PATHOLOGIST DANCING MASTER ROSCOE CASTRO M.D. Performed By: #### C BC, BMP, BNP, HS TROP, CK #### [facility] [address] [place] [address] [place] GFR/1.73 sq M.predicted MDRD (S/P/Bld) [Vol rate/Area] 58.037 mL/min/{1.73_m2} Normal [facility] Comment on above: Performed By: #### C BC, BMP, BNP, HS TROP, CK #### [facility] [address] Glucose [Mass/Vol] 170 mg/dL High 70-100 [facility] Comment on above: Result Comment: [facility] Glucose Reference Range is dependent on time and content of last meal. Glucose of more than 200 mg/dL in a nonstressed, ambulatory subject supports the diagnosis of Diabetes Mellitus. ADA recommended reference range Performed By: #### C BC, BMP, BNP, HS TROP, CK #### [facility] [address] Potassium [Moles/Vol] 3.6 mmol/L Normal 3.5-5.1 [facility] Comment on above: Performed By: #### C BC, BMP, BNP, HS TROP, CK #### [facility] [address] Sodium [Moles/Vol] 139 mmol/L Normal 136-145 [facility] Comment on above: Performed By: #### C BC, BMP, BNP, HS TROP, CK #### [facility] [address] [place] [address] [place] Urea nitrogen [Mass/Vol] 14 mg/dL Normal 7-25 [facility] Comment on above: Performed By: #### C BC, BMP, BNP, HS TROP, CK #### [facility] [address] Basophils Auto (Bld) [#/Vol] Ordered By: Damien Hercules on 2022 Basophils (Bld) [#/Vol] 0.1 10*3/uL 0.0-0.2 [facility] Basophils/100 WBC Auto (Bld) Ordered By: Damien Hercules on 2022 Basophils/100 WBC (Bld) 1.0 % . [facility] Calcium [Mass/volume] in Ser um or PlasmaOrdered By: Damien Hercules on 2022 Calcium [Mass/Vol] 9.0 mg/dL 8.6-10.3 [facility] Carbon dioxide, total [Moles /volume] in Serum or PlasmaOrdered By: Damien Hercules on 2022 CO2 [Moles/Vol] 26.2 mmol/L 21.0-31.0 [facility] Chloride [Moles/volume] in S luke or PlasmaOrdered By: Damien Hercules on 2022 Chloride [Moles/Vol] 106 mmol/L 98-107 [facility] Coagulation Profileon 2022 aPTT Coag (Bld) [Time] 29.0 s Normal 25.1-36.5 [facility] Comment on above: Order Comment: REDRA W Result Comment: A he matocrit value greater than 55% may lead to inaccurate results in coagulation testing. Patients having hematocrit values >55% require a special collection tube for coagulation studies. Please contact the laboratory at [phone] for redraw instructions. PERFORMED BY: [place] [address] PATHOLOGIST DANCING MASTER ROSCOE CASTRO M.D. Performed By: #### C BC, BMP, BNP, HS TROP, CK #### [facility] [address] [place] [address] INR Coag (PPP) [Relative time] 1.0 {INR} Normal [facility] Comment on above: Order Comment: REDRA W [...] BC, BMP, BNP, HS TROP, CK #### [address] PT Coag (PPP) [Time] 12.4 s Normal 9.0-12.9 [facility] Comment on above: Order Comment: REDRA W Result Comment: A he matocrit value greater than 55% may lead to inaccurate results in coagulation testing. Patients having hematocrit values >55% require a special collection tube for coagulation studies. Please contact the laboratory at [phone] for redraw instructions. Performed By: #### C BC, BMP, BNP, HS TROP, CK #### [address] Complete Blood Count Auto Di ffon 2022 Basophils (Bld) [#/Vol] 0.1 10*3/uL Normal 0.0-0.2 [facility] Comment on above: Result Comment: PERF ORMED BY: [place] [address] PATHOLOGIST DANCING MASTER ROSCOE CASTRO M.D. Performed By: #### C BC, BMP, BNP, HS TROP, CK #### [address] Basophils/100 WBC (Bld) 1.0 % Normal . [facility] Comment on above: Performed By: #### C BC, BMP, BNP, HS TROP, CK #### [address] Eosinophils (Bld) [#/Vol] 0.3 10*3/uL Normal 0.0-0.45 [facility] Comment on above: Performed By: #### C BC, BMP, BNP, HS TROP, CK #### [address] Eosinophils/100 WBC (Bld) 2.9 % Normal . [facility] Comment on above: Performed By: #### C BC, BMP, BNP, HS TROP, CK #### [address] Erythrocyte distribution width (RBC) [Ratio] 14.8 % Normal 12.0-14.8 [facility] Comment on above: Performed By: #### C BC, BMP, BNP, HS TROP, CK #### [facility] [address] Hematocrit (Bld) [Volume fraction] 43.8 % Normal 38.8-50.0 [facility] Comment on above: Performed By: #### C BC, BMP, BNP, HS TROP, CK #### [facility] [address] Hemoglobin (Bld) [Mass/Vol] 15.0 g/dL Normal 13.0-17.0 [facility] Comment on above: Performed By: #### C BC, BMP, BNP, HS TROP, CK #### [address] Lymphocytes (Bld) [#/Vol] 1.8 10*3/uL Normal 1.00-4.8 [facility] Comment on above: Performed By: #### C BC, BMP, BNP, HS TROP, CK #### [address] Lymphocytes/100 WBC (Bld) 19.7 % Normal . [facility] Comment on above: Performed By: #### C BC, BMP, BNP, HS TROP, CK #### [address] MCH (RBC) [Entitic mass] 28.8 pg Normal 27.5-35.2 [facility] Comment on above: Performed By: #### C BC, BMP, BNP, HS TROP, CK #### [address] MCV (RBC) [Entitic vol] 84.1 fL Normal 83.5-101 [facility] Comment on above: Performed By: #### C BC, BMP, BNP, HS TROP, CK #### [address] Mean Corpuscular HGB Conc 34.3 g/dL Normal 32.5-35.6 [facility] Comment on above: Performed By: #### C BC, BMP, BNP, HS TROP, CK #### [facility] [address] [place] [address] Monocytes (Bld) [#/Vol] 0.8 10*3/uL Normal 0.0-0.8 [facility] Comment on above: Performed By: #### C BC, BMP, BNP, HS TROP, CK #### [address] Monocytes/100 WBC (Bld) 20.13 % High 0.00-20.00 [facility] Comment on above: Result Comment: For adults in ED, MDW > 20.0 may be associated with a higher risk of sepsis during the first 12 hrs of hospital admission Performed By: #### C BC, BMP, BNP, HS TROP, CK #### [address] Monocytes/100 WBC (Bld) 9.2 % Normal . [facility] Comment on above: Performed By: #### C BC, BMP, BNP, HS TROP, CK #### [address] Neutrophils (Bld) [#/Vol] 6.2 10*3/uL Normal 1.8-7.7 [facility] Comment on above: Performed By: #### C BC, BMP, BNP, HS TROP, CK #### [place] [address] [place] Neutrophils/100 WBC (Bld) 67.2 % Normal . [facility] Comment on above: Performed By: #### C BC, BMP, BNP, HS TROP, CK #### [facility] [address] [place] [address] [place] NRBC% 0.1 /100{WBC} Normal 0-0.5 [facility] Comment on above: Performed By: #### C BC, BMP, BNP, HS TROP, CK #### [address] Platelet mean volume (Bld) [Entitic vol] 7.7 fL Normal 6.6-10.1 [facility] Comment on above: Performed By: #### C BC, BMP, BNP, HS TROP, CK #### [facility] [address] Platelets (Bld) [#/Vol] 194 10*3/uL Normal 150-450 [facility] Comment on above: Performed By: #### C BC, BMP, BNP, HS TROP, CK #### [facility] [address] RBC (Bld) [#/Vol] 5.21 10*6/uL Normal 3.90-5.60 [facility] Comment on above: Performed By: #### C BC, BMP, BNP, HS TROP, CK #### [facility] [address] WBC (Bld) [#/Vol] 9.2 10*3/uL Normal 4.1-10.5 [facility] Comment on above: Performed By: #### C BC, BMP, BNP, HS TROP, CK #### [facility] [address] Creatine Kinaseon 2022 CK [Catalytic activity/Vol] 111 U/L Normal 30-223 [facility] Comment on above: Performed By: #### C BC, BMP, BNP, HS TROP, CK #### [facility] [address] Creatine kinase [Enzymatic a ctivity/volume] in Serum or PlasmaOrdered By: Damien Hercules on 2022 CK [Catalytic activity/Vol] 111 U/L 30- [facility] Creatinine [Mass/volume] in Serum or PlasmaOrdered By: Damien Hercules on 2022 Creatinine [Mass/Vol] 1.39 mg/dL 0.70-1.30 [facility] ECG 12 lead ECGon 2022 ECG 12 lead ECG [facility] Main [place] [address] [place] [address] Electrocardiograph Report Signed Patient: Clarence Flores MR#: [id number] : 1960 Acct:[id number] Age/Sex: 61 / M ADM Date: 11/10/22 Loc: Room: 1M5927-7 Type: ADM INOo Attending Dr: Derick Gomes [...] Signed By Damien Hercules DO 0605 Normal [facility] Eosinophils Auto (Bld) [#/Vo l]Ordered By: Damien Hercules on 2022 Eosinophils (Bld) [#/Vol] 0.3 10*3/uL 0.0-0.45 [facility] Eosinophils/100 WBC Auto (Bl d)Ordered By: Damien Hercules on 2022 Eosinophils/100 WBC (Bld) 2.9 % . [facility] Erythrocyte distribution wid th Auto (RBC) [Ratio]Ordered By: Damien Hercules on 2022 Erythrocyte distribution width (RBC) [Ratio] 14.8 % 12.0-14.8 [facility] Glucose Poct Glucometerson 1 Glucose [Mass/Vol] 193 mg/dL Normal [facility] Comment on above: Result Comment: [facility] Glucose Reference Range is dependent on time and content of last meal. Glucose of more than 200 mg/dL in a nonstressed, ambulatory subject supports the diagnosis of Diabetes Mellitus. PERFORMED BY: [place] [address] [place] [address] PATHOLOGIST DANCING MASTER ROSCOE CASTRO M.D. Performed By: #### C BC, BMP, BNP, HS TROP, CK #### [address] Glucose [Mass/Vol] 219 mg/dL Normal [facility] Comment on above: Result Comment: [place] Glucose Reference Range is dependent on time and content of last meal. Glucose of more than 200 mg/dL in a nonstressed, ambulatory subject supports the diagnosis of Diabetes Mellitus. PERFORMED BY: [place] [address] PATHOLOGIST DANCING MASTER ROSCOE CASTRO M.D. Performed By: #### C BC, BMP, BNP, HS TROP, CK #### [address] Glucose [Mass/Vol] 388 mg/dL Normal [facility] Comment on above: Result Comment: [place] Glucose Reference Range is dependent on time and content of last meal. Glucose of more than 200 mg/dL in a nonstressed, ambulatory subject supports the diagnosis of Diabetes Mellitus. PERFORMED BY: [place] [address] PATHOLOGIST DANCING MASTER ROSCOE CASTRO M.D. Performed By: #### C BC, BMP, BNP, HS TROP, CK #### [address] Commemt1 Glu2: Cleaned Meter Normal [facility] Comment on above: Result Comment: PERF ORMED BY: [place] [address] PATHOLOGIST DANCING MASTER ROSCOE CASTRO M.D. Performed By: #### G LULS #### Point of Care testing , Glucose [Mass/Vol] 250 mg/dL Normal [facility] Comment on above: Result Comment: [place] Glucose Reference Range is dependent on time and content of last meal. Glucose of more than 200 mg/dL in a nonstressed, ambulatory subject supports the diagnosis of Diabetes Mellitus. Performed By: #### G LULS #### Point of Care testing , Glucose [Mass/volume] in Ser um or PlasmaOrdered By: Damien Hercules on 2022 Glucose [Mass/Vol] 170 mg/dL 70-100 [facility] Comment on above: ADA recommended refe rence rangeRandom Glucose Reference Range is dependent on time and content of last meal. Glucose of more than 200 mg/dL in a nonstressed, ambulatory subject supports the diagnosis of Diabetes Mellitus. Hematocrit Auto (Bld) [Volum e fraction]Ordered By: Damien Hercules on 2022 Hematocrit (Bld) [Volume fraction] 43.8 % 38.8-50.0 [facility] Hemoglobin [Mass/volume] in BloodOrdered By: Damien Hercules on 2022 Hemoglobin (Bld) [Mass/Vol] 15.0 g/dL 13.0-17.0 [facility] INR in Platelet poor plasma by Coagulation assayOrdered By: Damien Hercules on 2022 INR Coag (PPP) [Relative time] 1.0 {INR} [facility] Comment on above: INR Therapeutic Rang e [...] RBC Auto (Bld) [#/Vol] 9.2 10*3/uL 4.1-10.5 [facility] Lipid Panelon 2022 Cholesterol [Mass/Vol] 143 mg/dL Normal 140-200 [facility] Comment on above: Order Comment: Comme nt add Result Comment: Chol less than 200 mg/dl low risk Chol 201-239 mg/dl borderline risk Chol 240 mg/dl and greater high risk Performed By: #### C BC, BMP, BNP, HS TROP, CK #### [facility] [address] Cholesterol in HDL [Mass/Vol] 29 mg/dL Normal 23-92 [facility] Comment on above: Order Comment: Comme nt add Result Comment: HDL CHOL ATP-III CLASSIFICATION Cardiovascular Risk HDL > or equal to 60 mg/dL LOW HDL < 40 mg/dL HIGH Performed By: #### C BC, BMP, BNP, HS TROP, CK #### [facility] [address] Cholesterol.total/Chol esterol in HDL [Mass ratio] 4.9 {ratio} Normal <5.0 [facility] Comment on above: Order Comment: Comme nt add Result Comment: PERF ORMED BY: [place] [address] PATHOLOGIST [employer]ANCING MA[employer] ROSCOE CASTRO M.D. Performed By: #### C BC, BMP, BNP, HS TROP, CK #### [facility] [address] LDL Cholesterol,Calculated 87 mg/dL Normal 0-100 [facility] Comment on above: Order Comment: Comme nt add Result Comment: LDL ATP III CLASSIFICATION LDL less than 100 mg/dL Optimal LDL 100-129 mg/dL Near or above optimal LDL 130-159 mg/dL Borderline high LDL 160-189 mg/dL High LDL greater than 189 mg/dL Very high Performed By: #### C BC, BMP, BNP, HS TROP, CK #### [facility] [address] Triglyceride w/Reflex 133 mg/dL Normal 0-149 [facility] Comment on above: Order Comment: Comme nt add Result Comment: TRIG ATP III CLASSIFICATION TRIG less than 150 mg/dL Normal TRIG 150-199 mg/dL Borderline high TRIG 200-500 mg/dL High TRIG greater than 500 mg/dL Very high Standard traceable to the Center for Disease Conrtrol and Prevention (CDC) test method. Performed By: #### C BC, BMP, BNP, HS TROP, CK #### [facility] [address] VLDL CHOLESTEROL 26 mg/dL Normal [facility] Comment on above: Order Comment: Comme nt add Performed By: #### C BC, BMP, BNP, HS TROP, CK #### [facility] [address] Lymphocytes Auto (Bld) [#/Vo l]Ordered By: Damien Hercules on 2022 Lymphocytes (Bld) [#/Vol] 1.8 10*3/uL 1.00-4.8 [facility] Lymphocytes/100 WBC Auto (Bl d)Ordered By: Damien Hercules on 2022 Lymphocytes/100 WBC (Bld) 19.7 % . [facility] MCH Auto (RBC) [Entitic mass ]Ordered By: Damien Hercules on 2022 MCH (RBC) [Entitic mass] 28.8 pg 27.5-35.2 [facility] MCHC Auto (RBC) [Mass/Vol]Or dered By: Damien Hercules on 2022 MCHC (RBC) [Mass/Vol] 34.3 g/dL 32.5-35.6 [facility] MCV Auto (RBC) [Entitic vol] Ordered By: Damien Hercules on 2022 MCV (RBC) [Entitic vol] 84.1 fL 83.5-101 [facility] Monocyte distribution width [Entitic volume] in Blood by AutomatedOrdered By: Damien Hercules on 2022 Monocyte distribution width Auto (Bld) [Entitic vol] 20.13 % 0.00-20.00 [facility] Comment on above: For adults in ED, MD W > 20.0 may be associated with a higher risk of sepsis during the first 12 hrs of hospital admission Monocytes Auto (Bld) [#/Vol] Ordered By: Damien Hercules on 2022 Monocytes (Bld) [#/Vol] 0.8 10*3/uL 0.0-0.8 [facility] Monocytes/100 WBC Auto (Bld) Ordered By: Damien Hercules on 2022 Monocytes/100 WBC (Bld) 9.2 % . [facility] Natriuretic peptide B [Mass/ Vol]Ordered By: Damien Hercules on 2022 Natriuretic peptide B (Bld) [Mass/Vol] 101.0 pg/mL 5-100 [facility] Neutrophils Auto (Bld) [#/Vo l]Ordered By: Damien Hercules on 2022 Neutrophils (Bld) [#/Vol] 6.2 10*3/uL 1.8-7.7 [facility] Neutrophils/100 WBC Auto (Bl d)Ordered By: Damien Hercules on 2022 Neutrophils/100 WBC (Bld) 67.2 % . [facility] No Panel InformationOrdered By: Damien Hercules on 2022 Estimated GFR (CKD-EPI) 58.037 mL/Min [facility] Creatinine Clearance (Chem 72.10 [facility] Nucleated erythrocytes [Pres ence] in Blood by Automated countOrdered By: Damien Hercules on 2022 Nucleated RBC Auto Ql (Bld) 0.1 /100{WBC} 0-0.5 [facility] Platelet mean volume Auto (B ld) [Entitic vol]Ordered By: Damien Hercules on 2022 Platelet mean volume (Bld) [Entitic vol] 7.7 fL 6.6-10.1 [facility] Platelets Auto (Bld) [#/Vol] Ordered By: Damien Hercules on 2022 Platelets (Bld) [#/Vol] 194 10*3/uL 150-450 [facility] Potassium [Moles/volume] in Serum or PlasmaOrdered By: Damien Hercules on 2022 Potassium [Moles/Vol] 3.6 mmol/L 3.5-5.1 [facility] Prothrombin time (PT)Ordered By: Dmaien Hercules on 2022 PT Coag (PPP) [Time] 12.4 s 9.0-12.9 [facility] Comment on above: A hematocrit value g reater than 55% may lead to inaccurate results in coagulation testing. Patients having hematocrit values >55% require a special collection tube for coagulation studies. Please contact the laboratory at [phone] for redraw instructions. RBC Auto (Bld) [#/Vol]Ordere d By: Damien Hercules on 2022 RBC (Bld) [#/Vol] 5.21 10*6/uL 3.90-5.60 [facility] Serum or plasma anion gap de terminationOrdered By: Damien Hercules on 2022 Anion gap [Moles/Vol] 10.4 mmol/L 6.0-15.0 [facility] Sodium [Moles/volume] in Ser um or PlasmaOrdered By: Damien Hercules on 2022 Sodium [Moles/Vol] 139 mmol/L 136-145 [facility] Troponin I High Sensitivityo n 2022 Troponin I High Sensitivity 10.1 pg/mL Normal 0.0-20.0 [facility] Comment on above: Result Comment: PERF ORMED BY: [place] [address] PATHOLOGIST DANCING MASTER ROSCOE CASTRO M.D. Performed By: #### H S TROP #### [facility] [address] [place] [address] Troponin I High Sensitivity 13.0 pg/mL Normal 0.0-20.0 [facility] Comment on above: Result Comment: PERF ORMED BY: [place] [address] PATHOLOGIST DANCING MASTER ROSCOE CASTRO M.D. Performed By: #### H S TROP #### [facility] [address] [place] [address] Troponin I High Sensitivity 15.8 pg/mL Normal 0.0-20.0 [facility] Comment on above: Result Comment: PERF ORMED BY: [place] [address] PATHOLOGIST DANCING MASTER ROSCOE CASTRO M.D. Performed By: #### C BC, BMP, BNP, HS TROP, CK #### [facility] [address] [place] [address] Troponin I.cardiac [Mass/vol ume] in Serum or Plasma by Detection limit <= 0.01 ng/Ordered By: Damien Hercules on 10-01-2023 Troponin I.cardiac DL <= 0.01 ng/mL [Mass/Vol] 15.8 pg/mL 0.0-20.0 [facility] Urea nitrogen [Mass/volume] in Serum or PlasmaOrdered By: Damien Hercules on 2022 Urea nitrogen [Mass/Vol] 14 mg/dL 7-25 [facility] WBC Auto (Bld) [#/Vol]Ordere d By: Damien Hercules on 2022 WBC (Bld) [#/Vol] 9.2 10*3/uL 4.1-10.5 [facility] XR chest 2V*on 2022 XR chest 2V* [facility] [place] [address] XRay Report Signed Patient: Clarence Flores MR#: [id number] : 1960 Acct:[id number] Age/Sex: 62 / M ADM Date: 11/10/22 Loc: Room: [address] [place] [address] Type: ADM INOo Attending Dr: Maura Venegas [...] Oreilly Jr., D.O.11/10/2022 10:13 AM Dictation Location: [place] [address] Transcribed By: [facility] 11/10/22 1013 Dictated By: Ruel Oreilly Jr, DO 11/10/22 1012 Signed By: 11/10/22 1013 Normal [facility] CBC AUTO DIFFon 11-24-2021 BASO # 0.0 103/ul Normal 0.0-0.1 Comment on above: Performed By: #### C BC #### [facility] [address] [place] [address] Dr. Sunny Ortez Basophils/100 WBC (Bld) 0.5 % Normal 0.2-2.0 Comment on above: Performed By: #### C BC #### [facility] [address] [place] [address] Dr. Sunny Ortez EO # 0.4 103/ul Normal 0.0-0.7 Comment on above: Performed By: #### C BC #### [facility] [address] [place] [address] Dr. Sunny Ortez Eosinophils/100 WBC (Bld) 4.6 % Normal 0.9-7.0 Comment on above: Performed By: #### C BC #### [facility] [address] [place] [address] Dr. Sunny Ortez Erythrocyte distribution width (RBC) [Ratio] 14.2 % Normal 11.0-15.0 Comment on above: Performed By: #### C BC #### [facility] [address] [place] [address] Dr. Sunny Ortez Hematocrit (Bld) [Volume fraction] 45.8 % Normal 42.0-54.0 Comment on above: Performed By: #### C BC #### [facility] [address] [place] [address] Dr. Sunny Ortez Hemoglobin (Bld) [Mass/Vol] 15.1 g/dL Normal 14.0-18.0 Comment on above: Performed By: #### C BC #### [facility] [address] [place] [address] Dr. Sunny Ortez IG # 0.02 10e3/ul Normal 0.00-0.03 Comment on above: Performed By: #### C BC #### [facility] [address] [place] [address] Dr. Sunny Ortez IG % 0.2 % Normal 0.0-0.5 [facility] Comment on above: Performed By: #### C BC #### [facility] [address] [place] [address] Dr. Sunny Ortez LYMPH # 1.7 103/ul Normal 1.2-3.8 Comment on above: Performed By: #### C BC #### [facility] [address] [address] [address] Sunny Ortez Lymphocytes/100 WBC (Bld) 20.2 % Critically low 20.5-60.0 Comment on above: Performed By: #### C BC #### [facility] [address] [place] [address] Dr. Sunny Ortez MANUAL DIFF REQ NO Normal Comment on above: Performed By: #### C BC #### [facility] [address] [place] [address] Dr. Sunny Ortez MCH (RBC) [Entitic mass] 27.7 pg Normal 25.9-34.0 Comment on above: Performed By: #### C BC #### [facility] [address] [place] [address] Dr. Sunny Ortez MCHC (RBC) [Mass/Vol] 33.0 g/dL Normal 29.9-35.2 Comment on above: Performed By: #### C BC #### [facility] [address] [place] [address] Dr. Sunny Ortez MCV (RBC) [Entitic vol] 83.9 fL Normal 80.0-94.0 Comment on above: Performed By: #### C BC #### [facility] [address] [place] [address] Dr. Sunny Ortez MONO # 0.7 103/ul Normal 0.3-0.8 [facility] Comment on above: Performed By: #### C BC #### [facility] [address] [place] [address] Dr. Sunny Ortez Monocytes/100 WBC (Bld) 8.0 % Normal 1.7-12.0 [facility] Comment on above: Performed By: #### C BC #### [facility] [address] [address] [address] Sunny Ortez NEUT # 5.6 103/ul Normal 1.4-6.5 [facility] Comment on above: Performed By: #### C BC #### [facility] [address] [address] [address] Sunny Ortez Neutrophils/100 WBC (Bld) 66.5 % Normal 43.0-75.0 [facility] Comment on above: Performed By: #### C BC #### [facility] [address] [address] [address] Sunny Ortez Platelet mean volume (Bld) [Entitic vol] 9.1 fL Critically low 9.5-13.5 [facility] Comment on above: Performed By: #### C BC #### [facility] [address] [place] [address] Dr. Sunny Ortez PLT 215 103/ul Normal 150-450 [facility] Comment on above: Performed By: #### C BC #### [facility] [address] [place] [address] Dr. Sunny Ortez RBC 5.46 106/ul Normal 4.70-6.10 [facility] Comment on above: Performed By: #### C BC #### [facility] [address] [place] [address] Dr. Sunny Ortez WBC 8.4 103/ul Normal 4.0-11.0 [facility] Comment on above: Performed By: #### C BC #### [facility] [address] [place] [address] Dr. Sunny Ortez GLYCOHEMOGLOBIN A1Con 2021 ADA RECOMMENDATION SEE BELOW Normal [facility] Comment on above: Result Comment: ADA RECOMMENDED LIMIT 4.0 - 6.0 ADA THERAPEUTIC TARGET < 7.0 ACTION SUGGESTED > 7.0 Performed By: #### A 1C #### [facility] [address] [place] [address] Dr. Sunny Ortez Glucose [Mass/Vol] 117 mg/dL Normal [facility] Comment on above: Performed By: #### A 1C #### [facility] [address] [place] [address] Dr. Sunny Ortez HbA1c (Bld) [Mass fraction] 5.7 % Normal 4.5-6.2 [facility] Comment on above: Performed By: #### A 1C #### [facility] [address] [place] [address] Dr. Sunny Ortez PROF 14(COMP METB)on 11-24- 022 Albumin [Mass/Vol] 3.7 g/dL Normal 3.4-5.0 Comment on above: Performed By: #### C MP #### [facility] [address] [place] [address] Dr. Sunny Ortez Albumin/Globulin [Mass ratio] 1.0 {ratio} Normal Comment on above: Performed By: #### C MP #### [facility] [address] [place] [address] Dr. Sunny Ortez ALP [Catalytic activity/Vol] 61 U/L Normal 46-116 [facility] Comment on above: Performed By: #### C MP #### [facility] [address] [place] [address] Dr. Sunny Ortez ALT [Catalytic activity/Vol] 42 U/L Normal 16-63 [facility] Comment on above: Performed By: #### C MP #### [facility] [address] [place] [address] Dr. Sunny Ortez Anion gap [Moles/Vol] 8.1 mmol/L Normal [facility] Comment on above: Performed By: #### C MP #### [facility] [address] [place] [address] Dr. Sunny Ortez AST [Catalytic activity/Vol] 28 U/L Normal 15-37 [facility] Comment on above: Performed By: #### C MP #### [facility] [address] [place] [address] Dr. Sunny Ortez Bilirubin [Mass/Vol] 0.5 mg/dL Normal 0.2-1.0 [facility] Comment on above: Performed By: #### C MP #### [facility] [address] [place], [place] [id number] Dr. Sunny Ortez Calcium [Mass/Vol] 8.7 mg/dL Normal 8.5-10.1 Comment on above: Performed By: #### C MP #### [facility] [address] [place] [address] Dr. Sunny Ortez Chloride [Moles/Vol] 107 mmol/L Normal 98-107 Comment on above: Performed By: #### C MP #### [facility] [address] [place] [address] Dr. Sunny Ortez CO2 [Moles/Vol] 30.0 mmol/L Normal 21.0-32.0 Comment on above: Performed By: #### C MP #### [facility] [address] [place] [address] Dr. Sunny Ortez Creatinine [Mass/Vol] 1.29 mg/dL Normal 0.70-1.30 Comment on above: Performed By: #### C MP #### [facility] [address] [place] [address] Dr. Sunny Ortez EGFR-AF MICRONESIAN >60 Normal >=60 Comment on above: Performed By: #### C MP #### [facility] [address] [place] [address] Dr. Sunny Ortez EGFR-NON AF MICRONESIAN 57 mL/min/1.73m2 Critically low >=60 Comment on above: Performed By: #### C MP #### [facility] [address] [place] [address] Dr. Sunny Ortez Globulin (S) [Mass/Vol] 3.7 g/dL Normal Comment on above: Performed By: #### C MP #### [facility] [address] [place] [address] Dr. Sunny Ortez Glucose [Mass/Vol] 108 mg/dL Critically high 74-106 [facility] Comment on above: Performed By: #### C MP #### [facility] [address] [place] [address] Dr. Sunny Ortez Potassium [Moles/Vol] 4.1 mmol/L Normal 3.5-5.1 Comment on above: Performed By: #### C MP #### [facility] [address] [place] [address] Dr. Sunny Ortez Protein [Mass/Vol] 7.4 g/dL Normal 6.4-8.2 Comment on above: Performed By: #### C MP #### [facility] [address] [place] [address] Dr. Sunny Ortez Sodium [Moles/Vol] 141 mmol/L Normal 136-145 Comment on above: Performed By: #### C MP #### [facility] [address] [place] [address] Dr. Sunny Ortez Urea nitrogen [Mass/Vol] 16.0 mg/dL Normal 7.0-18.0 Comment on above: Performed By: #### C MP #### [facility] [address] [place] [address] Dr. Sunny Ortez Urea nitrogen/Creatinine [Mass ratio] 12.4 mg/mg Normal Comment on above: Performed By: #### C MP #### [facility] [address] [place] [address] Dr. Sunny Ortez OCC BLD IMMUNO SCREENon 10-12 OCCULT BLOOD Negative Normal NEGATIVE Comment on above: Performed By: #### O BSCRN #### [facility] [address] [place] [address] Dr. Sunny Ortez Covid-19 PCR ([facility])on 10-12 SARS-CoV-2 (COVID-19) RNA RENÉE+probe Ql (Unsp spec) Not detected Normal NOT DETECTED [facility] Comment on above: Result Comment: When [...] for this test is supported by the [employer] Specialist of Health and Human Service's declaration that [...] used). Performed By: #### C MP #### [facility] [address] [address] [address] Sunny Ortez MRI ABDOMEN W CONon [...] ELVIN JENKINS Date: 2021-05-06 07:49 Normal [facility] CREATININEon 05-04-2021 Creatinine [Mass/Vol] 1.37 mg/dL Critically high 0.66-1.25 [facility] Comment on above: Performed By: #### C ALISHA #### [facility] [address] [address] [address] Sunny Ortez EGFR-AF MICRONESIAN >60 Normal >=60 [facility] Comment on above: Performed By: #### C ALISHA #### [facility] [address] [address] [address] Sunny Ortez EGFR-NON AF MICRONESIAN 53 mL/min/1.73m2 Critically low >=60 Comment on above: Performed By: #### C ALISHA #### [facility] [address] [address] [address] Sunny Ortez CREATININEon 04-12-2021 Creatinine [Mass/Vol] 1.28 mg/dL Critically high 0.66-1.25 Comment on above: Performed By: #### C ALISHA #### [facility] [address] [address] [address] Sunny Ortez EGFR-AF MICRONESIAN >60 Normal >=60 Comment on above: Performed By: #### C ALISHA #### [facility] [address] [address] [address] Sunny Ortez EGFR-NON AF MICRONESIAN 58 mL/min/1.73m2 Critically low >=60 Comment on above: Performed By: #### C ALISHA #### [facility] [address] [address] [address] Sunny Ortez MRI ABDOMEN WO CONon [...] STEVE COLLADO Date: 2021-04-12 14:39 Normal [facility] CT ABD/PELV W CONon 03-28-19 22 [...] mild inflammatory changes. Consider cystitis Normal [facility] INSULINon 03-26-2021 Insulin 30.7 uIU/mL Critically high 2.6-24.9 [facility] Comment on above: Performed By: #### I NSULIN #### [facility] [address] [place] [address] Dr. Sunny Ortez XR KNEE LT 4V [...] STEVE PALACIOS Date: 2021-03-25 17:14 Normal [facility] BNPon 03-24-2021 Natriuretic peptide B (Bld) [Mass/Vol] 202.0 pg/mL Normal <=900.0 [facility] Comment on above: Performed By: #### C MP #### [facility] [address] [place] [address] Dr. Sunny Ortez CBC AUTO DIFFon 03-24-2021 BASO # 0.1 103/ul Normal 0.0-0.1 Comment on above: Performed By: #### C BC #### [facility] [address] [place] [address] Dr. Sunny Ortez Basophils/100 WBC (Bld) 0.8 % Normal 0.2-2.0 [facility] Comment on above: Performed By: #### C BC #### [facility] [address] [place] [address] Dr. Sunny Ortez EO # 0.5 103/ul Normal 0.0-0.7 [facility] Comment on above: Performed By: #### C BC #### [facility] [address] [place] [address] Dr. Sunny Ortez Eosinophils/100 WBC (Bld) 4.6 % Normal 0.9-7.0 [facility] Comment on above: Performed By: #### C BC #### [facility] [address] [place] [address] Dr. Sunny Ortez Erythrocyte distribution width (RBC) [Ratio] 13.6 % Normal 11.0-15.0 Comment on above: Performed By: #### C BC #### [facility] [address] [place] [address] Dr. Sunny Ortez Hematocrit (Bld) [Volume fraction] 45.6 % Normal 42.0-54.0 Comment on above: Performed By: #### C BC #### [facility] [address] [place] [address] Dr. Sunny Ortez Hemoglobin (Bld) [Mass/Vol] 15.2 g/dL Normal 14.0-18.0 Comment on above: Performed By: #### C BC #### [facility] [address] [place] [address] Dr. Sunny Ortez IG # 0.04 10e3/ul Critically high 0.00-0.03 Comment on above: Performed By: #### C BC #### [facility] [address] [place] [address] Dr. Sunny Ortez IG % 0.4 % Normal 0.0-0.5 Comment on above: Performed By: #### C BC #### [facility] [address] [place] [address] Dr. Sunny Ortez LYMPH # 1.9 103/ul Normal 1.2-3.8 Comment on above: Performed By: #### C BC #### [facility] [address] [place] [address] Dr. Sunny Ortez Lymphocytes/100 WBC (Bld) 18.4 % Critically low 20.5-60.0 Comment on above: Performed By: #### C BC #### [facility] [address] [place] [address] Dr. Sunny Ortez MANUAL DIFF REQ NO Normal Comment on above: Performed By: #### C BC #### [facility] [address] [place] [address] Dr. Sunny Ortez MCH (RBC) [Entitic mass] 27.9 pg Normal 25.9-34.0 [facility] Comment on above: Performed By: #### C BC #### [facility] [address] [address] [address] Sunny Ortez MCHC (RBC) [Mass/Vol] 33.3 g/dL Normal 29.9-35.2 Comment on above: Performed By: #### C BC #### [facility] [address] [address] [address] Sunny Ortez MCV (RBC) [Entitic vol] 83.7 fL Normal 80.0-94.0 Comment on above: Performed By: #### C BC #### [facility] [address] [address] [address] Sunny Ortez MONO # 0.8 103/ul Normal 0.3-0.8 Comment on above: Performed By: #### C BC #### [facility] [address] [address] [address] Sunny Ortez Monocytes/100 WBC (Bld) 8.0 % Normal 1.7-12.0 Comment on above: Performed By: #### C BC #### [facility] [address] [place] [address] Dr. Sunny Ortez NEUT # 7.0 103/ul Critically high 1.4-6.5 Comment on above: Performed By: #### C BC #### [facility] [address] [address] [address] Sunny Ortez Neutrophils/100 WBC (Bld) 67.8 % Normal 43.0-75.0 Comment on above: Performed By: #### C BC #### [facility] [address] [address] [address] Sunny Ortez Platelet mean volume (Bld) [Entitic vol] 9.5 fL Normal 9.5-13.5 Comment on above: Performed By: #### C BC #### [facility] [address] [address] [address] Sunny Ortez PLT 322 103/ul Normal 150-450 [facility] Comment on above: Performed By: #### C BC #### [facility] [address] [address] [address] Sunny Ortez RBC 5.45 106/ul Normal 4.70-6.10 [facility] Comment on above: Performed By: #### C BC #### [facility] [address] [address] [address] Sunny Ortez WBC 10.4 103/ul Normal 4.0-11.0 [facility] Comment on above: Performed By: #### C BC #### [facility] [address] [address] [address] Sunny Ortez FREE THYROXINE INDEX T7on FTI 3.01 Normal Comment on above: Performed By: #### C MP #### [facility] [address] [place] [address] Dr. Sunny Ortez T3U 35.0 % Normal 23.5-40.5 Comment on above: Performed By: #### C MP #### [facility] [address] [place] [address] Dr. Sunny Ortez T4 [Mass/Vol] 8.60 ug/dL Normal 5.53-11.00 Comment on above: Performed By: #### C MP #### [facility] [address] [place] [address] Dr. Sunny Ortez GLYCOHEMOGLOBIN A1Con 2021 ADA RECOMMENDATION ADA THERAPEUTIC TARG ET 6.0 - 7.0 ACTION SUGGESTED > 7.0 Normal Comment on above: Performed By: #### A 1C #### [facility] [address] [place] [address] Dr. Sunny Ortez Glucose [Mass/Vol] 197 mg/dL Normal Comment on above: Performed By: #### A 1C #### [facility] [address] [place] [address] Dr. Sunny Ortez HbA1c (Bld) [Mass fraction] 8.5 % Critically high <=6.0 [facility] Comment on above: Performed By: #### A 1C #### [facility] [address] [address] [address] Sunny Ortez LIPID PROFILEon 03-24-2021 CHOL-HDL RATIO NORM SEE BELOW Normal Comment on above: Result Comment: 3.3 - 4.4 LOW RISK 4.4 - 7.1 AVERAGE RISK 7.1 - 11.0 MODERATE RISK >11.0 HIGH RISK Performed By: #### C MP #### [facility] [address] [address] [address] Sunny Ortez Cholesterol [Mass/Vol] 150 mg/dL Normal <=200 [facility] Comment on above: Performed By: #### C MP #### [facility] [address] [place] [address] Dr. Sunny Ortez Cholesterol in HDL [Mass/Vol] 30 mg/dL Normal Comment on above: Performed By: #### C MP #### [facility] [address] [place] [address] Dr. Sunny Ortez Cholesterol in LDL [Mass/Vol] 96.8 mg/dL Normal Comment on above: Performed By: #### C MP #### [facility] [address] [place] [address] Dr. Sunny Ortez Cholesterol.total/Chol esterol in HDL [Mass ratio] 5.0 {ratio} Normal Comment on above: Performed By: #### C MP #### [facility] [address] [place] [address] Dr. Sunny Ortez HDL NORMAL > or = 60 mg/dl - LO W CARDIOVASCULAR RISK <40 mg/dl - HIGH CARDIOVASCULAR RISK Normal Comment on above: Performed By: #### C MP #### [facility] [address] [place] [address] Dr. Sunny Ortez LDL CALC NORMAL SEE BELOW Normal Comment on above: Result Comment: <100 mg/dl OPTIMAL 100 - 129 mg/dl NEAR OR ABOVE OPTIMAL 130 - 159 mg/dl BORDERLINE HIGH 160 - 189 mg/dl HIGH >190 mg/dl VERY HIGH Performed By: #### C MP #### [facility] [address] [place] [address] Dr. Sunny Ortez Triglyceride [Mass/Vol] 116 mg/dL Normal <=150 Comment on above: Performed By: #### C MP #### [facility] [address] [place] [address] Dr. Sunny Ortez VLDL CALC 23.2 mg/dL Normal Comment on above: Performed By: #### C MP #### [facility] [address] [place] [address] Dr. Sunny Ortez PROF 14(COMP METB)on 022 Albumin [Mass/Vol] 3.5 g/dL Normal 3.5-5.0 Comment on above: Performed By: #### C MP #### [facility] [address] [place] [address] Dr. Sunny Ortez Albumin/Globulin [Mass ratio] 1.0 {ratio} Normal Comment on above: Performed By: #### C MP #### [facility] [address] [place] [address] Dr. Sunny Ortez ALP [Catalytic activity/Vol] 73 U/L Normal 38-126 Comment on above: Performed By: #### C MP #### [facility] [address] [place] [address] Dr. Sunny Ortez ALT [Catalytic activity/Vol] 28 U/L Normal 21-72 Comment on above: Performed By: #### C MP #### [facility] [address] [place] [address] Dr. Sunny Ortez Anion gap [Moles/Vol] 14.7 mmol/L Normal [facility] Comment on above: Performed By: #### C MP #### [facility] [address] [place] [address] Dr. Sunny Ortez AST [Catalytic activity/Vol] 13 U/L Critically low 17-59 Comment on above: Performed By: #### C MP #### [facility] [address] [place] [address] Dr. Sunny Ortez Bilirubin [Mass/Vol] 0.7 mg/dL Normal 0.2-1.3 Comment on above: Performed By: #### C MP #### [facility] [address] [place] [address] Dr. Sunny Ortez Calcium [Mass/Vol] 8.6 mg/dL Normal 8.4-10.2 Comment on above: Performed By: #### C MP #### [facility] [address] [place] [address] Dr. Sunny Ortez Chloride [Moles/Vol] 105 mmol/L Normal 98-107 Comment on above: Performed By: #### C MP #### [facility] [address] [place] [address] Dr. Sunny Ortez CO2 [Moles/Vol] 23.6 mmol/L Normal 22.0-30.0 Comment on above: Performed By: #### C MP #### [facility] [address] [place] [address] Dr. Sunny Ortez Creatinine [Mass/Vol] 1.33 mg/dL Critically high 0.66-1.25 Comment on above: Performed By: #### C MP #### [facility] [address] [place] [address] Dr. Sunny Ortez EGFR-AF MICRONESIAN >60 Normal >=60 Comment on above: Performed By: #### C MP #### [facility] [address] [place] [address] Dr. Sunny Ortez EGFR-NON AF MICRONESIAN 55 mL/min/1.73m2 Critically low >=60 Comment on above: Performed By: #### C MP #### [facility] [address] [place] [address] Dr. Sunny Ortez Globulin (S) [Mass/Vol] 3.6 g/dL Normal Comment on above: Performed By: #### C MP #### [facility] [address] [place] [address] Dr. Sunny Ortez Glucose [Mass/Vol] 253 mg/dL Critically high 74-106 [facility] Comment on above: Performed By: #### C MP #### [facility] [address] [address] [address] Sunny Ortez Potassium [Moles/Vol] 4.3 mmol/L Normal 3.4-5.0 Comment on above: Performed By: #### C MP #### [facility] [address] [address] [address] Sunny Ortez Protein [Mass/Vol] 7.1 g/dL Normal 6.1-8.2 Comment on above: Performed By: #### C MP #### [facility] [address] [address] [address] Sunny Ortez Sodium [Moles/Vol] 139 mmol/L Normal 137-145 Comment on above: Performed By: #### C MP #### [facility] [address] [place] [address] Dr. Sunny Ortez Urea nitrogen [Mass/Vol] 18.0 mg/dL Normal 9.0-20.0 Comment on above: Performed By: #### C MP #### [facility] [address] [place] [address] Dr. Sunny Ortez Urea nitrogen/Creatinine [Mass ratio] 13.5 mg/mg Normal Comment on above: Performed By: #### C MP #### [facility] [address] [place] [address] Dr. Sunny Ortez TSHon 03-24-2021 TSH 1.335 uIU/mL Normal 0.470-4.68 0 Comment on above: Performed By: #### C MP #### [facility] [address] [place] [address] Dr. Sunny Ortez TSH RANGE SEE BELOW Normal Comment on above: Result Comment: <0.3 4 UIU/ml HYPERTHYROID 0.34-5.60 UIU/ml EUTHYROID >5.60 UIU/ml HYPOTHYROID Performed By: #### C MP #### [facility] [address] [place] [address] Dr. Sunny Ortez URIC ACID SERUMon 03-24-2021 Urate [Mass/Vol] 4.9 mg/dL Normal 3.5-8.5 Comment on above: Performed By: #### C #### [facility] [address] [address] [address] Sunny Ortez Basic Metabolic Panlon 06-20 Anion gap [Moles/Vol] 11 mmol/L Normal 9-18 [facility] Calcium [Mass/Vol] 8.9 mg/dL Normal 8.5-10.2 [facility] Chloride [Moles/Vol] 106 mmol/L High 97-105 [facility] CO2 [Moles/Vol] 22 mmol/L Normal 22-30 [facility] Creatinine [Mass/Vol] 1.28 mg/dL High 0.73-1.22 [facility] eGFR- Amer. >60 Normal [facility] GFR/1.73 sq M predicted among non-blacks MDRD (S/P/Bld) [Vol rate/Area] 58 . Normal [facility] Comment on above: Result Comment: eGFR (Estimated [...] GFR. Glucose [Mass/Vol] 148 mg/dL High 74-99 [facility] Comment on above: Result Comment: The [place] Diabetes Association (ADA) provides guidance for cutoff [...] Standards of Medical Care in Diabetes 2016, [place] [employer]. Diabetes Care. 2016.39(Suppl 1). Potassium [Moles/Vol] 4.5 mmol/L Normal 3.7-5.1 [facility] Sodium [Moles/Vol] 139 mmol/L Normal 136-144 [facility] Urea nitrogen [Mass/Vol] 10 mg/dL Normal 9-24 [facility] CNPNon 06-21-2019 CNPN Telephone (UROLMN) -- CLARENCE FLORES ([id number]) 1960 M Date Time Provider Department 06/21/19 DIANE DILLON PA-C During your visit today, we recorded the following information about you: Diane Dillon PA-C 06/21/2019 2:[address] and CXR with no recurrence or mets. Repeat CT and CXR in 6M. Patient to schedule on his own at [facility] [place] Dillon PA-C Pager [phone] Office [phone] Allergies As of Date: 06/21/2019 Noted Allergy Reaction NITROGLYCERIN 11/26/2018 14 - Other: See Comments Date Reviewed: 02/05/2019 Reviewed by: Diane Dillon - Fully Assessed Reason for Visit: Results [95] Primary Visit Diagnosis:Left renal mass [N28.89] Other Visit Diagnosis:Renal cell carcinoma of left kidney (HCC) [C64.2] Order(s):XR CHEST 2V FRONTAL/LAT [[id number]] Order #: [id number] FUTURE CT ABD/PEL W IVCON [[id number]] Order #: [id number] FUTURE iv contrast (will be provided with [...] DECIPEDA PA-C, DIANE C on 06/21/19 Normal [facility] CT ABD/PEL W IVCONon 05-11-[address] ABD/PEL W IVCON * * *Final Report* * * DATE OF EXAM: Jun 21 2019 9:40AM [facility] 0530 - CT ABD/PEL W IVCON [...] any questions regarding this interpretation, please call [phone]. If you are unable to reach us at the number above, please feel free to contact [facility] at [phone]. [id number] Normal [facility] PROGRESSon 06-21-2019 PROGRESS HNO ID: [id number] Author: Holly Garcia (Tech) Service: ? Author Type: Slitting Machine Feeder Type: Progress Notes Filed: 06/21/2019 2:25 PM [...] Garcia June 21, 2019 2:24 PM Normal [facility] PROGRESS HNO ID: [id number] Author: Holly Garcia (Tech) Service: ? Author Type: Slitting Machine Feeder Type: Progress Notes Filed: 06/21/2019 9:51 AM [...] given.. PATIENT DISCHARGED TO: Ambulatory patient, left [place] department area. A Diagnostic radioactive procedure has taken place, with no further precautions necessary other than routine body substance precautions. More information regarding radiation safety can be found using this link: [email or web address]. pdf SIGNATURE: Holly Garcia PATIENT NAME: Clarence Flores DATE: June 21, 2019 TIME: 8:39 AM PAGER/CONTACT #: Normal [facility] XR CHEST 2V FRONTAL/LATon XR CHEST 2V [...] any questions regarding this interpretation, please call [phone]. If you are unable to reach us at the number above, please feel free to contact [facility] at [phone]. [id number] Normal [facility] CNPNon 06-17-2019 CNPN Telephone (RADTSA) -- CLARENCE FLORES ([id number]) 1960 M Date Time Provider Department 06/17/19 RIKAMarco AntonioMAICO (HISTORICAL) RICARDO During your visit today, we recorded the following information about you: Clarisse Alicia 06/17/2019 3:19 PM Signed Clarence Flores [id number] is coming in Tuesday 06/20 for CTs w/IV on; please sign pending ISTAT BMP as our lab's chemistry will be down that day and he will need CRE clearance prior to. Thanks Clarisse Alicia, stallion keeper [facility] Allergies As of Date: 06/17/2019 Noted Allergy Reaction NITROGLYCERIN 11/26/2018 14 - Other: See Comments Date Reviewed: 02/05/2019 Reviewed by: Diane Dunn) Darshana - Fully Assessed Reason for Visit: Orders [681] Primary Visit Diagnosis:Left renal mass [N28.89] Order(s):ISTAT BMP [SQISTBMP] Order #: [id number] FUTURE Prescriptions as of 06/17/2019 Sig: IV [...] Status:Closed by DIANE DILLON PA-C on 06/17/19 [facility] CNOVon 02-05-2019 CNOV Office Visit (UROLMN ) -- CLARENCE FLORES ([id number]) 1960 M Date Time Provider Department 02/05/19 10:50 AM DIANE DILLON) UROGIL During your visit today, we recorded the following information about you: Pulse Blood pressure Weight Height 64/minute 179/81 120.5 kg 1.676 m Diane Dillon PA-C 02/05/2019 10:49 AM Signed [facility] POST-OPERATIVE PATIENT CC: Patient is here [...] PA-C Electronically signed Referring Provider: MAICO ANG [[id number]] Allergies As of Date: 02/05/2019 Noted Allergy Reaction NITROGLYCERIN 11/26/2018 14 - Other: See Comments Date Reviewed: 02/05/2019 Reviewed by: Diane Dunn) Darshana - Fully Assessed Visit Diagnosis:Renal cell carcinoma of left kidney (HCC) [C64.2] Order(s):CT ABD/PEL W IVCON [[id number]] Order #: [id number] FUTURE iv contrast (will be provided with [...] 1 EachRfl: 0 XR CHEST 2V FRONTAL/LAT [[id number]] Order #: [id number] FUTURE BASIC METABOLIC PNL [SQBMP] Order #: [id number] FUTURE Prescriptions as of 02/05/2019 Sig: HYDRALAZINE [...] Status:Closed by DIANE DILLON PA-C on 02/05/19 [facility] Flavio 02-05-2019 [facility] Patient Outreach (UR OLMN) -- CLARENCE FLORES ([id number]) 1960 M Date Time Provider Department 02/05/19 DIANE DILLON) URON During your visit today, we recorded the following information about you: Allergies As of Date: 02/05/2019 Noted Allergy Reaction NITROGLYCERIN 11/26/2018 14 - Other: See Comments Date Reviewed: 02/05/2019 Reviewed by: Diane Dillon - Fully Assessed Visit Diagnosis:Screening for genitourinary condition [Z13.89] Order(s):UA CHEMSTRIP ONLY [SQUA] Order #: [id number]. #:[id number] Prescriptions as of 02/05/2019 Sig: IV CONTRAST [...] Status:Closed by DESI CALDERÓN on 02/22/19 Normal [facility] PROGRESSon 02-05-2019 PROGRESS HNO ID: [id number] Author: Diane Dillon Service: ? Author Type: Physician Software Release Engineer Type: Progress Notes Filed: 02/05/2019 10:49 AM Note Text: [facility] POST-OPERATIVE PATIENT CC: Patient is here [...] arise Diane Dillon PA-C Electronically signed Normal [facility] Urinalysison 02-05-2019 Bilirubin, Urine Negative Normal Negative Kye sierra [facility] Comment on above: Performed By: #### U A ####[facility], [place] [phone] Clarity (U) Clear Normal Clear [facility] Comment on above: Performed By: #### U A ####[address] [address], [place] [phone] Color (U) Yellow Normal Yellow [facility] Comment on above: Performed By: #### U A ####[address] [place] [address] [phone] Comments SEE COMMENT Normal [facility] Comment on above: Result Comment: Micr oscopic not warranted Performed By: #### U A ####[address] [place] [address] [phone] Glucose Ql (U) Negative Normal Negative [facility] Comment on above: Performed By: #### U A ####[place] [address] [phone] Hemoglobin/Blood,Ur Negative Normal Negative [facility] Comment on above: Performed By: #### U A ####[address] [place] [address] [phone] Ketones Ql (U) Negative Normal Negative [facility] Comment on above: Performed By: #### U A ####[place] [address] [phone] Leukest Negative Normal Negative [facility] Comment on above: Performed By: #### U A ####[address] [place] [address] [phone] Nitrite Ql (U) Negative Normal Negative [facility] Comment on above: Performed By: #### U A ####[place] [address] [phone] pH (Bld) 6.5 Normal 4.5-8.0 [facility] Comment on above: Performed By: #### U A ####[place] [address] [phone] Protein (U) [Mass/Vol] Trace Criticall y abnormal Negative [facility] Comment on above: Performed By: #### U A ####[address] [place] [phone] Specific [place], Ur 1.020 Normal 1.005-1 .03 0 [facility] Comment on above: Performed By: #### U A ####[address] [place] [phone] Urine Shin Comment SEE COMMENT Normal [facility] Comment on above: Result Comment: N/A Performed By: #### U A ####[address] [place] [phone] Urobilinogen Qn (U) Normal Normal Normal [facility] Comment on above: Performed By: #### U A ####[place] [phone] Basic Metabolic Panlon 12-25 Anion gap [Moles/Vol] 9 mmol/L Normal 9-18 [facility] Comment on above: Performed By: #### C BCDIF, BMP ####[address] [place] [phone] Calcium [Mass/Vol] 8.3 mg/dL Low 8.5-10.2 [facility] Comment on above: Performed By: #### C BCDIF, BMP ####[place] [place] [phone] Chloride [Moles/Vol] 109 mmol/L High 97-105 [facility] Comment on above: Performed By: #### C BCDIF, BMP ####[place] [phone] CO2 [Moles/Vol] 21 mmol/L Low 22-30 [facility] Comment on above: Performed By: #### C BCDIF, BMP ####[address] [place], [place] [phone] Creatinine [Mass/Vol] 1.24 mg/dL High 0.73-1.22 [facility] Comment on above: Performed By: #### C KAREL, BMP ####[facility] [place] [address] [phone] eGFR- Amer. >60 Normal [facility] Comment on above: Performed By: #### C KAREL, BMP ####[address] [phone] GFR/1.73 sq M predicted among non-blacks MDRD (S/P/Bld) [Vol rate/Area] mL/min/{1.73_m2} Normal [facility] Comment on above: Result Comment: eGFR (Estimated [...] GFR. Performed By: #### C KAREL, BMP ####[facility] [place] [address] [phone] Glucose [Mass/Vol] 117 mg/dL High 74-99 [facility] Comment on above: Result Comment: The [place] Diabetes Association (ADA) provides guidance for cutoff [...] Standards of Medical Care in Diabetes 2016, [place] Diabetes [employer]. Diabetes Care. 2016.39(Suppl 1). Performed By: #### C KAREL, BMP ####[facility] [place], [place] [phone] Potassium [Moles/Vol] 3.8 mmol/L Normal 3.7-5.1 [facility] Comment on above: Performed By: #### C BCDIF, BMP ####[place] [address] [address] [place], [place] [phone] Sodium [Moles/Vol] 139 mmol/L Normal 136-144 [facility] Comment on above: Performed By: #### C BCDIF, BMP ####[place] [address] [address] [place], [place] [phone] Urea nitrogen [Mass/Vol] 16 mg/dL Normal 9-24 [facility] Comment on above: Performed By: #### C BCDIF, BMP ####[place] [address] [address] [place], [place] [phone] CBC and Differentialon 12-25 Abs Baso 0.04 k/uL Normal <0.11 [facility] Comment on above: Performed By: #### C BCDIF, BMP ####[place] [address] [place], [place] [phone] Abs Nelson 1.12 k/uL High <0.87 [facility] Comment on above: Performed By: #### C BCDIF, BMP ####[place] [address], [place] [phone] Abs Neut 9.63 k/uL High 1.45-7.50 [facility] Comment on above: Performed By: #### C BCDIF, BMP ####[place] [address] [place], [place] [phone] Absolute nRBC <0.01 Normal <0.01 [facility] Comment on above: Performed By: #### C BCDIF, BMP ####[place] [address], [place] [phone] Basophils/100 WBC (Bld) 0.3 % Normal [facility] Comment on above: Performed By: #### C BCDIF, BMP ####[place] [address] [phone] DTYPE Auto Diff Normal [facility] Comment on above: Performed By: #### C BCDIF, BMP ####[place] [address] [phone] Eosinophils (Bld) [#/Vol] 0.24 10*3/uL Normal <0.46 [facility] Comment on above: Performed By: #### C BCDIF, BMP ####[place] [address] [phone] Eosinophils/100 WBC (Bld) 2.0 % Normal [facility] Comment on above: Performed By: #### C BCDIF, BMP ####[place] [address] [phone] Erythrocyte distribution width (RBC) [Ratio] 13.7 % Normal 11.5-15.0 [facility] Comment on above: Performed By: #### C BCDIF, BMP ####[place] [address] [phone] Hematocrit (Bld) [Volume fraction] 39.9 % Normal 39.0-51.0 [facility] Comment on above: Performed By: #### C BCDIF, BMP ####[place] [address], [place] [phone] Hemoglobin (Bld) [Mass/Vol] 13.3 g/dL Normal 13.0-17.0 [facility] Comment on above: Performed By: #### C BCDIF, BMP ####[place] [address], [place] [phone] Lymphocytes (Bld) [#/Vol] 1.25 10*3/uL Normal 1.00-4.00 [facility] Comment on above: Performed By: #### C BCDIF, BMP ####[place] [address], [place] [phone] Lymphocytes/100 WBC (Bld) 10.2 % Normal [facility] Comment on above: Performed By: #### C BCDIF, BMP ####[place] [address], [place] [phone] MCH (RBC) [Entitic mass] 29.3 pG Normal 26.0-34.0 [facility] Comment on above: Performed By: #### C BCDIF, BMP ####[place] [address], [place] [phone] MCHC (RBC) [Mass/Vol] 33.3 g/dL Normal 30.5-36.0 [facility] Comment on above: Performed By: #### C BCDIF, BMP ####[place] [address], [place] [phone] MCV (RBC) [Entitic vol] 87.9 fL Normal 80.0-100.0 [facility] Comment on above: Performed By: #### C BCDIF, BMP ####[place] [address], [place] [phone] Monocytes/100 WBC (Bld) 9.1 % Normal [facility] Comment on above: Performed By: #### C BCDIF, BMP ####[place] [address] [place], [place] [phone] Neutrophils/100 WBC (Bld) 78.4 % Normal [facility] Comment on above: Performed By: #### C BCDIF, BMP ####[facility], [place] [phone] NRBCs 0.0 /100 WBC Normal 0 [facility] Comment on above: Performed By: #### C BCDIF, BMP ####[facility], [place] [phone] Platelet mean volume (Bld) [Entitic vol] 9.6 fL Normal 9.0-12.7 [facility] Comment on above: Performed By: #### C BCKATLYNF, BMP ####[place] [address], [place] [phone] Platelets (Bld) [#/Vol] 241 10*3/uL Normal 150-400 [facility] Comment on above: Performed By: #### C BCKATLYNF, BMP ####[place] [address], [place] [phone] RBC (Bld) [#/Vol] 4.54 10*6/uL Normal 4.20-6.00 [facility] Comment on above: Performed By: #### C BCKRYSTAL, BMP ####[place] [address], [place] [phone] WBC (Bld) [#/Vol] 12.28 10*3/uL High 3.70-11.00 [facility] Comment on above: Performed By: #### C BCDIF, BMP ####[facility], [place] [phone] PROGRESSon 12-25-2018 PROGRESS HNO ID: [id number] Author: Clarence Schmidt Service: Urology Author Type: Resident Type: Progress Notes Filed: 12/25/2018 9:45 AM Note Text: [facility] UROLOGY PROGRESS NOTE Name: Clarence Flores Bed: G090 [id number]/[id number] Date: December 25, 2018 After Hours [facility] [place] [facility] Service Pager: [phone] ASSESSMENT AND PLAN Clarence Flores is a [...] Imaging n/a Clarence Schmidt MD Personal Pager: [phone] For weekend or after hours issues [place] [phone] [facility] PROGRESS HNO ID: [id number] Author: Kate Ruiz) Lion Service: Urology Author [...] PRN - sodium chloride 0.65 % 2 [place] (AYR, OCEAN) 2 [place] EACH NOSTRIL PRN - tamsulosin ER 0.4 [...] to discharge. Signature: Kate Seymour CNP Pager: [phone] Date of service: 12/25/2018 Normal [facility] Basic Metabolic Panlon 12-24 Anion gap [Moles/Vol] 16 mmol/L Normal 9-18 [facility] Comment on above: Performed By: #### C KAREL BMP ####[address] [phone] Calcium [Mass/Vol] 8.7 mg/dL Normal 8.5-10.2 [facility] Comment on above: Performed By: #### C KAREL BMP ####[place] [address] [place], [place] [phone] Chloride [Moles/Vol] 104 mmol/L Normal 97-105 [facility] Comment on above: Performed By: #### C BCKRYSTAL BMP ####[facility], [place] [phone] CO2 [Moles/Vol] 18 mmol/L Low 22-30 [facility] Comment on above: Performed By: #### C KAREL, BMP ####[facility] [place], [place] [phone] Creatinine [Mass/Vol] 1.26 mg/dL High 0.73-1.22 [facility] Comment on above: Performed By: #### C KAREL NIRALI ####[facility] [place], [place] [phone] eGFR- Amer. >60 Normal [facility] Comment on above: Performed By: #### C KAREL, NIRALI ####[place] [address] [place], [place] [phone] GFR/1.73 sq M predicted among non-blacks MDRD (S/P/Bld) [Vol rate/Area] 59 . Normal [facility] Comment on above: Result Comment: eGFR (Estimated [...] GFR. Performed By: #### C KAREL BMP ####[address] [phone] Glucose [Mass/Vol] 117 mg/dL High 74-99 [facility] Comment on above: Result Comment: The [place] Diabetes Association (ADA) provides guidance for cutoff [...] Standards of Medical Care in Diabetes 2016, [place] Diabetes Association. Diabetes Care. 2016.39(Suppl 1). Performed By: #### C NIRALI VINSON ####[place] [address] [facility] [place] [phone] Potassium [Moles/Vol] 4.0 mmol/L Normal 3.7-5.1 [facility] Comment on above: Performed By: #### C BCDIF, BMP ####[place] [address], [place] [phone] Sodium [Moles/Vol] 138 mmol/L Normal 136-144 [facility] Comment on above: Performed By: #### C BCDIF, BMP ####[place] [address] [place] [phone] Urea nitrogen [Mass/Vol] 15 mg/dL Normal 9-24 [facility] Comment on above: Performed By: #### C BCDIF, BMP ####[place] [phone] CBC and Differentialon 12-24 Abs Baso 0.06 k/uL Normal <0.11 [facility] Comment on above: Performed By: #### C BCDIF, BMP ####[place] [address] [place] [phone] Abs Nelson 1.82 k/uL High <0.87 [facility] Comment on above: Performed By: #### C BCDIF, BMP ####[place] [address] [place] [phone] Abs Neut 13.61 k/uL High 1.45-7.50 [facility] Comment on above: Performed By: #### C BCDIF, BMP ####[place] [address] [place] [phone] Absolute nRBC <0.01 Normal <0.01 [facility] Comment on above: Performed By: #### C BCDIF, BMP ####[place] [address] [place] [phone] Basophils/100 WBC (Bld) 0.4 % Normal [facility] Comment on above: Performed By: #### C BCDIF, BMP ####[place] [address] [place] [phone] DTYPE Auto Diff Normal [facility] Comment on above: Performed By: #### C BCDIF, BMP ####[place] [address] [place] [phone] Eosinophils (Bld) [#/Vol] 0.03 10*3/uL Normal <0.46 [facility] Comment on above: Performed By: #### C BCKRYSTAL, BMP ####[place] [address] [place] [phone] Eosinophils/100 WBC (Bld) 0.2 % Normal [facility] Comment on above: Performed By: #### C BCDIF, BMP ####[place] [address] [place] [phone] Erythrocyte distribution width (RBC) [Ratio] 13.7 % Normal 11.5-15.0 [facility] Comment on above: Performed By: #### C BCDIF, BMP ####[place] [address] [place] [phone] Hematocrit (Bld) [Volume fraction] 43.5 % Normal 39.0-51.0 [facility] Comment on above: Performed By: #### C BCDIF, BMP ####[place] [address] [place] [phone] Hemoglobin (Bld) [Mass/Vol] 14.5 g/dL Normal 13.0-17.0 [facility] Comment on above: Performed By: #### C BCDIF, BMP ####[place] [address] [place] [phone] Lymphocytes (Bld) [#/Vol] 1.16 10*3/uL Normal 1.00-4.00 [facility] Comment on above: Performed By: #### C BCDIF, BMP ####[facility], [place] [phone] Lymphocytes/100 WBC (Bld) 7.0 % Normal [facility] Comment on above: Performed By: #### C BCDIF, BMP ####[place] [address] [place] [phone] MCH (RBC) [Entitic mass] 29.3 pG Normal 26.0-34.0 [facility] Comment on above: Performed By: #### C BCDIF, BMP ####[place] [address] [place] [phone] MCHC (RBC) [Mass/Vol] 33.3 g/dL Normal 30.5-36.0 [facility] Comment on above: Performed By: #### C BCDIF, BMP ####[place] [address] [place] [phone] MCV (RBC) [Entitic vol] 87.9 fL Normal 80.0-100.0 [facility] Comment on above: Performed By: #### C BCDIF, BMP ####[place] [address], [place] [phone] Monocytes/100 WBC (Bld) 10.9 % Normal [facility] Comment on above: Performed By: #### C BCDIF, BMP ####[place] [address] [place] [phone] Neutrophils/100 WBC (Bld) 81.5 % Normal [facility] Comment on above: Result Comment: Diff erential confirmed by visual scan of peripheral blood smear slide. Performed By: #### C BCDIF, BMP ####[place] [address] [place] [phone] NRBCs 0.0 /100 WBC Normal 0 [facility] Comment on above: Performed By: #### C BCDIF, BMP ####[facility], [place] [phone] Platelet mean volume (Bld) [Entitic vol] 9.6 fL Normal 9.0-12.7 [facility] Comment on above: Performed By: #### C BCDIF, BMP ####[facility], [place] [phone] Platelets (Bld) [#/Vol] 278 10*3/uL Normal 150-400 [facility] Comment on above: Performed By: #### C BCDIF, BMP ####[place] [address], [place] [phone] RBC (Bld) [#/Vol] 4.95 10*6/uL Normal 4.20-6.00 [facility] Comment on above: Performed By: #### C BCDIF, BMP ####[place] [address] [place], [place] [phone] WBC (Bld) [#/Vol] 16.68 10*3/uL High 3.70-11.00 [facility] Comment on above: Performed By: #### C BCDIF, BMP ####[place] [address] [place], [place] [phone] PROGRESSon 12-24-2018 PROGRESS HNO ID: [id number] Author: Clarence (Breana) Roxana Service: Urology Author Type: Resident Type: Progress Notes Filed: 12/24/2018 10:00 AM Note Text: [facility] UROLOGY PROGRESS NOTE Name: Clarence Flores Bed: G090 [id number]/[id number] Date: December 24, 2018 After Hours [facility] [place] [facility] Service Pager: [phone] ASSESSMENT AND PLAN Clarence Flores is a [...] Imaging n/a Clarence Schmidt MD Personal Pager: [phone] For weekend or after hours issues [place] [phone] Normal [facility] Basic Metabolic Panlon 12-23 Anion gap [Moles/Vol] 14 mmol/L Normal 9-18 [facility] Comment on above: Performed By: #### C BCDIF, BMP ####[place] [address] [place] [phone] Calcium [Mass/Vol] 8.7 mg/dL Normal 8.5-10.2 [facility] Comment on above: Performed By: #### C BCDIF, BMP ####[place] [address] [place], [place] [phone] Chloride [Moles/Vol] 102 mmol/L Normal 97-105 [facility] Comment on above: Performed By: #### C BCDIF, BMP ####[place] [address] [place] [phone] CO2 [Moles/Vol] 21 mmol/L Low 22-30 [facility] Comment on above: Performed By: #### C BCDIF, BMP ####[place] [address], [place] [phone] Creatinine [Mass/Vol] 1.31 mg/dL High 0.73-1.22 [facility] Comment on above: Performed By: #### C BCDIF, BMP ####[place] [address], [place] [phone] eGFR- Amer. >60 Normal [facility] Comment on above: Performed By: #### C BCDIF, BMP ####[place] [address], [place] [phone] GFR/1.73 sq M predicted among non-blacks MDRD (S/P/Bld) [Vol rate/Area] 57 . Normal [facility] Comment on above: Result Comment: eGFR (Estimated [...] GFR. Performed By: #### C NIRALI VINSON ####[facility] [place], [place] [phone] Glucose [Mass/Vol] 121 mg/dL High 74-99 [facility] Comment on above: Result Comment: The [place] Diabetes Association (ADA) provides guidance for cutoff [...] Standards of Medical Care in Diabetes 2016, [place] Diabetes Association. Diabetes Care. 2016.39(Suppl 1). Performed By: #### C KAREL BMP ####[facility] [address] [place], [place] [phone] Potassium [Moles/Vol] 4.0 mmol/L Normal 3.7-5.1 [facility] Comment on above: Performed By: #### C KAREL BMP ####[facility] [address] [place], [place] [phone] Sodium [Moles/Vol] 137 mmol/L Normal 136-144 [facility] Comment on above: Performed By: #### C BCDIF, BMP ####[facility] [address] [place], [place] [phone] Urea nitrogen [Mass/Vol] 11 mg/dL Normal 9-24 [facility] Comment on above: Performed By: #### C BCDIF, BMP ####[facility] [address], [place] [phone] CASE MGT INIT ASSESon 2018 CASE MGT INIT ASSES HNO ID: [id number] Author: Cornelius Diaz (Sw) Service: Care Management Author Type: Production Roustabout Type: Care Mgt Initial Assessment Filed: 12/23/2018 4:27 PM Note Text: CARE MANAGEMENT: ASSESSMENT AND DISCHARGE PLAN SERVICE DATE: 12/23/2018 SERVICE TIME: 4:24 PM PRIMARY CARE PHYSICIAN: Shea Beach MD ADMISSION STATUS: Observation Needs Prior to Discharge: None;Ready for Discharge 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 No Advance Directive: Current Advance Directive: Health Care Power of Kitchen And Counter Worker In Chart: Yes Up To Date and [...] None Has the Patient Been in a Chcf Facility in the Past 30 days? No SOCIAL: Living Arrangement: Home Lives With: Son Financial Resources: Employed: [employer] Primary Contact: Extended Emergency Contact Information Primary [...] 0 I feel financially burdened by my [id number]-sbyjxj expenses for my prescription medication: Disagree completely [...] 2018 TIME: 4:24 PM PAGER/CONTACT #: Normal [facility] CBC and Differentialon 12-23 Abs Baso 0.03 k/uL Normal <0.11 [facility] Comment on above: Performed By: #### C BCDIF, BMP ####[facility] [address] [place], [place] [phone] Abs Nelson 1.36 k/uL High <0.87 [facility] Comment on above: Performed By: #### C BCDIF, BMP ####[facility] [address] [place], [place] [phone] Abs Neut 16.73 k/uL High 1.45-7.50 [facility] Comment on above: Performed By: #### C BCDIF, BMP ####[facility] [place] [phone] Absolute nRBC <0.01 Normal <0.01 [facility] Comment on above: Performed By: #### C BCDIF, BMP ####[place] [address]ClevelMichael [place] [phone] Basophils/100 WBC (Bld) 0.2 % Normal [facility] Comment on above: Performed By: #### C BCDIF, BMP ####[place] [address] [place] [phone] DTYPE Auto Diff Normal [facility] Comment on above: Performed By: #### C BCDIF, BMP ####[place] [address] [place] [phone] Eosinophils (Bld) [#/Vol] 10*3/uL Normal <0.46 [facility] Comment on above: Performed By: #### C BCDIF, BMP ####[place] [address] [place] [phone] Eosinophils/100 WBC (Bld) 0.0 % Normal [facility] Comment on above: Performed By: #### C BCDIF, BMP ####[place] [address] [place] [phone] Erythrocyte distribution width (RBC) [Ratio] 13.3 % Normal 11.5-15.0 [facility] Comment on above: Performed By: #### C BCDIF, BMP ####[place] [address]Clevel[address] [place] [phone] Hematocrit (Bld) [Volume fraction] 46.4 % Normal 39.0-51.0 [facility] Comment on above: Performed By: #### C BCDIF, BMP ####[place] [address]Clevel[address] [place] [phone] Hemoglobin (Bld) [Mass/Vol] 15.3 g/dL Normal 13.0-17.0 [facility] Comment on above: Performed By: #### C BCDIF, BMP ####[place] [address], [place] [phone] Lymphocytes (Bld) [#/Vol] 0.94 10*3/uL Low 1.00-4.00 [facility] Comment on above: Performed By: #### C BCDIF, BMP ####[place] [address], [place] [phone] Lymphocytes/100 WBC (Bld) 4.9 % Normal [facility] Comment on above: Performed By: #### C BCDIF, BMP ####[place] [address], [place] [phone] MCH (RBC) [Entitic mass] 28.2 pG Normal 26.0-34.0 [facility] Comment on above: Performed By: #### C BCDIF, BMP ####[place] [address] [place] [phone] MCHC (RBC) [Mass/Vol] 33.0 g/dL Normal 30.5-36.0 [facility] Comment on above: Performed By: #### C BCDIF, BMP ####[place] [address], [place] [phone] MCV (RBC) [Entitic vol] 85.5 fL Normal 80.0-100.0 [facility] Comment on above: Performed By: #### C BCDIF, BMP ####[place] [address], [place] [phone] Monocytes/100 WBC (Bld) 7.1 % Normal [facility] Comment on above: Performed By: #### C BCDIF, BMP ####[place] [address] [place], [place] [phone] Neutrophils/100 WBC (Bld) 87.8 % Normal [facility] Comment on above: Performed By: #### Pablo VINSON, BMP ####[place] [address] [place], [place] [phone] NRBCs 0.0 /100 WBC Normal 0 [facility] Comment on above: Performed By: #### Pablo VINSON, BMP ####[place] [address] [place], [place] [phone] Platelet mean volume (Bld) [Entitic vol] 9.5 fL Normal 9.0-12.7 [facility] Comment on above: Performed By: #### Pablo VINSON, BMP ####[address] [phone] Platelets (Bld) [#/Vol] 315 10*3/uL Normal 150-400 [facility] Comment on above: Performed By: #### Pablo VINSON, BMP ####[address] [phone] RBC (Bld) [#/Vol] 5.43 10*6/uL Normal 4.20-6.00 [facility] Comment on above: Performed By: #### Pablo VINSON, BMP ####[address] [place], [place] [phone] WBC (Bld) [#/Vol] 19.06 10*3/uL High 3.70-11.00 [facility] Comment on above: Performed By: #### Pablo VINSON, BMP ####[place] [address] [place], [place] [phone] PROGRESSon 12-23-2018 PROGRESS HNO ID: [id number] Author: Clarence Schmidt Service: Urology Author Type: Resident Type: Progress Notes Filed: 12/23/2018 8:40 AM Note Text: [facility] UROLOGY PROGRESS NOTE Name: Clarence Flores Bed: G090 [id number]/[id number] Date: December 23, 2018 After Hours [facility] [place] [facility] Pager: [phone] ASSESSMENT AND PLAN Clarence Flores is a [...] Imaging n/a Clarence Schmidt MD Personal Pager: [phone] For weekend or after hours issues [place] [phone] Normal [facility] ANES Ferny 12-22-2018 ANES POST HNO ID: [id number] Author: Salvatore Lacey Service: Anesthesiology Author Type: [...] 22, 2018 TIME: 12:16 PM PAGER/CONTACT #: [phone] Normal [facility] Basic Metabolic Panlon 12-22 Anion gap [Moles/Vol] 10 mmol/L Normal 9-18 [facility] Comment on above: Performed By: #### C BCDIF, BMP ####[facility], [place] [phone] Calcium [Mass/Vol] 8.0 mg/dL Low 8.5-10.2 [facility] Comment on above: Performed By: #### C BCDIF, BMP ####[place] [address], [place] [phone] Chloride [Moles/Vol] 105 mmol/L Normal 97-105 [facility] Comment on above: Performed By: #### C BCDIF, BMP ####[facility] [place] [phone] CO2 [Moles/Vol] 23 mmol/L Normal 22-30 [facility] Comment on above: Performed By: #### C BCDIF, BMP ####[facility], [place] [phone] Creatinine [Mass/Vol] 1.17 mg/dL Normal 0.73-1.22 [facility] Comment on above: Performed By: #### C BCDIF, BMP ####[facility], [place] [phone] eGFR- Amer. >60 Normal [facility] Comment on above: Performed By: #### C BCDIF, BMP ####[facility], [place] [phone] GFR/1.73 sq M predicted among non-blacks MDRD (S/P/Bld) [Vol rate/Area] mL/min/{1.73_m2} Normal [facility] Comment on above: Result Comment: eGFR (Estimated [...] GFR. Performed By: #### C NIRALI VINSON ####[facility] [place], [place] [phone] Glucose [Mass/Vol] 168 mg/dL High 74-99 [facility] Comment on above: Result Comment: The [place] Diabetes Association (ADA) provides guidance for cutoff [...] Standards of Medical Care in Diabetes 2016, [place] Diabetes Association. Diabetes Care. 2016.39(Suppl 1). Performed By: #### C BCDIF, BMP ####[facility] [place], [place] [phone] Potassium [Moles/Vol] 5.5 mmol/L High 3.7-5.1 [facility] Comment on above: Result Comment: Resu lts may be falsely increased due to interference by hemolysis. Suggest reorder as clinically indicated. Performed By: #### C BCKRYSTAL, BMP ####[facility] [place], [place] [phone] Sodium [Moles/Vol] 138 mmol/L Normal 136-144 [facility] Comment on above: Performed By: #### C BCDIF, BMP ####[place] [address] [place], [place] [phone] Urea nitrogen [Mass/Vol] 9 mg/dL Normal 9-24 [facility] Comment on above: Performed By: #### C BCDIF, BMP ####[place] [phone] CBC and Differentialon 12-22 Abs Baso 0.07 k/uL Normal <0.11 [facility] Comment on above: Performed By: #### C BCDIF, BMP ####[address] [phone] Abs Nelson 0.89 k/uL High <0.87 [facility] Comment on above: Performed By: #### C BCDIF, BMP ####[place] [phone] Abs Neut 13.53 k/uL High 1.45-7.50 [facility] Comment on above: Performed By: #### C BCDIF, BMP ####[address] [place], [place] [phone] Absolute nRBC <0.01 Normal <0.01 [facility] Comment on above: Performed By: #### C BCDIF, BMP ####[address] [phone] Basophils/100 WBC (Bld) 0.4 % Normal [facility] Comment on above: Performed By: #### C BCDIF, BMP ####[address] [place], [place] [phone] DTYPE Auto Diff Normal [facility] Comment on above: Performed By: #### C BCDIF, BMP ####[facility] [place] [phone] Eosinophils (Bld) [#/Vol] 0.06 10*3/uL Normal <0.46 [facility] Comment on above: Performed By: #### C BCDIF, BMP ####[place] [address], [place] [phone] Eosinophils/100 WBC (Bld) 0.4 % Normal [facility] Comment on above: Performed By: #### C BCDIF, BMP ####[place] [address] [place] [phone] Erythrocyte distribution width (RBC) [Ratio] 13.6 % Normal 11.5-15.0 [facility] Comment on above: Performed By: #### C BCDIF, BMP ####[place] [address] [place] [phone] Hematocrit (Bld) [Volume fraction] 46.4 % Normal 39.0-51.0 [facility] Comment on above: Performed By: #### C BCDIF, BMP ####[place] [address], [place] [phone] Hemoglobin (Bld) [Mass/Vol] 15.4 g/dL Normal 13.0-17.0 [facility] Comment on above: Performed By: #### C BCDIF, BMP ####[place] [address] [place] [phone] Lymphocytes (Bld) [#/Vol] 1.09 10*3/uL Normal 1.00-4.00 [facility] Comment on above: Performed By: #### C BCDIF, BMP ####[place] [address] [address], [place] [phone] Lymphocytes/100 WBC (Bld) 7.0 % Normal [facility] Comment on above: Performed By: #### C BCDIF, BMP ####[place] [address], [place] [phone] MCH (RBC) [Entitic mass] 28.7 pG Normal 26.0-34.0 [facility] Comment on above: Performed By: #### C BCDIF, BMP ####[place] [address], [place] [phone] MCHC (RBC) [Mass/Vol] 33.2 g/dL Normal 30.5-36.0 [facility] Comment on above: Performed By: #### C BCDIF, BMP ####[place] [address] [place] [phone] MCV (RBC) [Entitic vol] 86.4 fL Normal 80.0-100.0 [facility] Comment on above: Performed By: #### C BCDIF, BMP ####[place] [address] [place] [phone] Monocytes/100 WBC (Bld) 5.7 % Normal [facility] Comment on above: Performed By: #### C BCDIF, BMP ####[place] [address] [address] [place] [phone] Neutrophils/100 WBC (Bld) 86.5 % Normal [facility] Comment on above: Performed By: #### C BCDIF, BMP ####[place] [address], [place] [phone] NRBCs 0.0 /100 WBC Normal 0 [facility] Comment on above: Performed By: #### C BCDIF, BMP ####[place] [address], [place] [phone] Platelet mean volume (Bld) [Entitic vol] 9.8 fL Normal 9.0-12.7 [facility] Comment on above: Performed By: #### C BCDIF, BMP ####[place] [address] [place], [place] [phone] Platelets (Bld) [#/Vol] 263 10*3/uL Normal 150-400 [facility] Comment on above: Performed By: #### C BCDIF, BMP ####[facility] [place], [place] [phone] RBC (Bld) [#/Vol] 5.37 10*6/uL Normal 4.20-6.00 [facility] Comment on above: Performed By: #### C BCDIF, BMP ####[facility] [place], [place] [phone] WBC (Bld) [#/Vol] 15.64 10*3/uL High 3.70-11.00 [facility] Comment on above: Performed By: #### C BCDIF, BMP ####[facility] [place], [place] [phone] CNCOon 12-22-2018 CNCO Letter Text [facility] NURSING PROGon 12-22-2018 NURSING PROG HNO ID: [id number] Author: Yoly De Jesus RN Service: Nursing [...] MSN In Department: HOSP MAIN SDS Normal [facility] OPERATIVE NOon 12-22-2018 OPERATIVE NO HNO ID: [id number] Author: Cyrus Justice Service: Urology Author Type: Resident Type: Operative Report Filed: 12/22/2018 11:07 AM Note Text: -- Attestation signed by Maico Ang at 12/22/2018 11:58 AM . -- OPERATIVE/PROCEDURE REPORT LOG ID: [id number] Surgery/Procedure Date: 12/22/2018 Incision/Procedure Start Time: 8:19 AM Incision Close/Procedure End Time: 10:48 AM Surgeon(s)/Proceduralist(s ) and Software Release Engineer(s): Surgeon(s) and Role: * Maico Ang - [...] robotic ports and one 12-mm airseal assistant professor port were placed. The robot was then [...] vision. We then extended our 12mm assistant professor port site cephalad and extracted our specimen through this. We then mobilized his umbilical hernia sac. Herniated mesentery was delivered out of the hernia sac and sac dissected completely free off the skin. The fascia was then closed using interrupted bcodla-wp-lpajz 0-prolene sutures. 3-0 vicryl was used to [...] 1.left renal neoplasm Tissue Kidney taken by [facility] Pathology Routine 2.hernia sac Tissue taken by [facility] Pathology Routine Implantable Devices: None Drains: 10-flat SHELBY drain and jacques catheter (18-vietnamese coude with 10cc balloon) Complications: None Accidental [...] 22, 2018 TIME: 10:48 AM PAGER/CONTACT #: [phone] [facility] PROGRESSon 12-22-2018 PROGRESS HNO ID: [id number] Author: Clarence Schmidt Service: Urology Author Type: Resident Type: Progress Notes Filed: 12/22/2018 4:14 PM Note Text: [facility] UROLOGY PROGRESS NOTE Name: Clarence Flores Bed: [id number]/[id number] Date: December 22, 2018 After Hours [facility] Service Pager: [phone] ASSESSMENT AND PLAN Clarence Flores is a [...] Imaging n/a Clarence Schmidt MD Personal Pager: [phone] For weekend or after hours issues [place] [phone] Normal [facility] PROGRESS HNO ID: [id number] Author: Valeria (Rn) FIORELLA Moreno Service: ? Author Type: Registered Nurse Type: Progress Notes Filed: 12/22/2018 2:26 PM Note Text: Admission/Transfer Note PATIENT NAME: Clarence Flores Patient admitted from PACU via stretcher in stable condition. Actions taken: Patient oriented to room, call light function, prescribed activities, Patient rights and Quiet at night. This note was completed by: Valeria Moreno RN Normal [facility] Potassiumon 12-22-2018 Potassium [Moles/Vol] 4.2 mmol/L Normal 3.7-5.1 [facility] Comment on above: Performed By: #### K 1 ####[facility] [address] [place], [place] [phone] SURGICAL PATHOLOGYon 019 SURGICAL PATHOLOGY Specimen originated from [facility] Specimen #: [id number] Submitting Physician: MAICO ANG (Q10) FINAL DIAGNOSIS [...] Pathologic Findings in Nonneoplastic Kidney: Insufficient tissue City Comptroller Tumor Block: Specify: A1 ---- Meño Hamilton [...] appear to extend beyond the capsular surface. City Comptroller sections are submitted as follows: A1-A3 mass with renal sinus/parenchymal margin, A4-A5 mass with capsular surface. WE/glw 12/22/2018 B. Received fresh labeled hernia sac is a segment of cote pink fibromembranous soft tissue measuring 4.7 x 1.9 x 0.6 cm. No nodularity or induration is identified. City Comptroller sections are submitted in formalin in cassette B1. VINICIO/rw 12/22/2018 [place] [address] Date of Report: 12/24/2018 Date of Procedure: 12/22/2018 Date of Receipt: 12/22/2018 Submitted by: MAICO ANG (Q10) Location: 0 Diagnostic interpretation performed at [place] [address]. CLIA Number: [id number] Normal [facility] APTTon 12-17-2018 aPTT Coag (Bld) [Time] 28.8 s Normal 23.0-32.4 [facility] Comment on above: Result Comment: Unfr [...] laboratory APTT reagent in use throughout the [facility]. Performed By: #### P T, PTT, CBC, CMP #### [facility] [employer] [facility] [place], [place] [address] CBCon 12-17-2018 Absolute nRBC <0.01 Normal <0.01 [facility] Comment on above: Performed By: #### P T, PTT, CBC, CMP #### [facility] [employer] [facility] [place], [place] [address] Erythrocyte distribution width (RBC) [Ratio] 13.2 % Normal 11.5-15.0 [facility] Comment on above: Performed By: #### P T, PTT, CBC, CMP #### [place] [address] Hematocrit (Bld) [Volume fraction] 46.7 % Normal 39.0-51.0 [facility] Comment on above: Performed By: #### P T, PTT, CBC, CMP #### [place] [address] Hemoglobin (Bld) [Mass/Vol] 15.7 g/dL Normal 13.0-17.0 [facility] Comment on above: Performed By: #### P T, PTT, CBC, CMP #### [place] [address] MCH (RBC) [Entitic mass] 28.6 pG Normal 26.0-34.0 [facility] Comment on above: Performed By: #### P T, PTT, CBC, CMP #### [place] [address] MCHC (RBC) [Mass/Vol] 33.6 g/dL Normal 30.5-36.0 [facility] Comment on above: Performed By: #### P T, PTT, CBC, CMP #### [place] [address] MCV (RBC) [Entitic vol] 85.2 fL Normal 80.0-100.0 [facility] Comment on above: Performed By: #### P T, PTT, CBC, CMP #### [place] [address] Platelet mean volume (Bld) [Entitic vol] 9.9 fL Normal 9.0-12.7 [facility] Comment on above: Performed By: #### P T, PTT, CBC, CMP #### [place] [address] Platelets (Bld) [#/Vol] 322 10*3/uL Normal 150-400 [facility] Comment on above: Performed By: #### P T, PTT, CBC, CMP #### [facility] [employer] [address] [place], [place] [address] RBC (Bld) [#/Vol] 5.48 10*6/uL Normal 4.20-6.00 [facility] Comment on above: Performed By: #### P T, PTT, CBC, CMP #### [facility] [address] [place], [place] [phone] WBC (Bld) [#/Vol] 9.33 10*3/uL Normal 3.70-11.00 [facility] Comment on above: Performed By: #### P T, PTT, CBC, CMP #### [facility] [address] [place], [place] [address] CNOVon 12-17-2018 CNOV Office Visit (PSSCMN ) -- CLARENCE FLORES ([id number]) 1960 M Date Time Provider Department 12/17/18 12:00 PM [facility] PSSCMN During your visit today, we recorded the following information about you: Pulse Blood pressure Weight Height 64/minute 169/96 119.7 kg 1.676 m Aimee Romero, FIORELLA 12/21/2018 9:03 AM Addendum ANESTHESIA PRE-OPERATIVE [...] addendum labs and ekg to [facility]; Aimee Romero RN Lab Value Units [...] 8:41:34 AM ? Referring Provider: MAICO ANG [[id number]] Allergies As of Date: 12/17/2018 Noted Allergy [...] Chart Close Cosign Accepted by: PERCY BERTRAND MD[[id number]] Chart Close Cosign Accepted on: FriDec 17, 2018 12:54 PM Normal [facility] CNOV Office Visit (UROLMN ) -- CLARENCE FLORES ([id number]) 1960 M Date Time Provider Department 12/17/18 9:15 AM JESSICA HERRERA (CARPENTER [employer]) UROLMN During your visit today, we recorded the following information about you: Pulse Blood pressure Weight Height 64/minute 169/96 119.8 kg 1.676 m Jessica Herrera CNP 12/17/2018 9:57 AM Signed UROLOGY SURGICAL HANDP SERVICE DATE: 12/17/2018 REFERRING PROVIDER: Maico Ang MD [address] [facility] [address] PCP: Shea Beach MD GENDER: SUBJECTIVE CHIEF [...] or problems. No history of angina, CHF, [place], cardiac surgery of stents. +history of HTN [...] problems. Neurologic: No history of TIA's, stroke, TIE LAYER tumor, impaired sensorium, hemiplegia, paraplegia or quadriplegia. [...] L renal mass Primary Surgeon: MD Allie, [facility] Healthquest Score: tbd BP 169/96 (BP [...] CNP Electronically signed Referring Provider: MAICO ANG [[id number]] Allergies As of Date: 12/17/2018 Noted Allergy [...] by JESSICA HERRERA CNP on 12/17/18 Normal [facility] Comp Metabolic Panelon 12-17 Albumin [Mass/Vol] 4.3 g/dL Normal 3.9-4.9 [facility] Comment on above: Performed By: #### P T, PTT, CBC, CMP ####[place] [phone] ALP [Catalytic activity/Vol] 56 U/L Normal 38-113 [facility] Comment on above: Performed By: #### P T, PTT, CBC, CMP ####[address] [phone] ALT [Catalytic activity/Vol] 22 U/L Normal 10-54 [facility] Comment on above: Performed By: #### P T, PTT, CBC, CMP ####[address] [phone] Anion gap [Moles/Vol] 13 mmol/L Normal 9-18 [facility] Comment on above: Performed By: #### P T, PTT, CBC, CMP ####[address] [phone] AST [Catalytic activity/Vol] 25 U/L Normal 14-40 [facility] Comment on above: Performed By: #### P T, PTT, CBC, CMP ####[address] [phone] Bilirubin [Mass/Vol] 0.4 mg/dL Normal 0.2-1.3 [facility] Comment on above: Performed By: #### P T, PTT, CBC, CMP ####[place] [address], [place] [phone] Calcium [Mass/Vol] 9.3 mg/dL Normal 8.5-10.2 [facility] Comment on above: Performed By: #### P T, PTT, CBC, CMP ####[place] [address] [place], [place] [phone] Chloride [Moles/Vol] 105 mmol/L Normal 97-105 [facility] Comment on above: Performed By: #### P T, PTT, CBC, CMP ####[place] [address] [place] [phone] CO2 [Moles/Vol] 21 mmol/L Low 22-30 [facility] Comment on above: Performed By: #### P T, PTT, CBC, CMP ####[place] [address] [place], [place] [phone] Creatinine [Mass/Vol] 1.20 mg/dL Normal 0.73-1.22 [facility] Comment on above: Performed By: #### P T, PTT, CBC, CMP ####[place] [address] [address] [place], [place] [phone] eGFR- Amer. >60 Normal [facility] Comment on above: Performed By: #### P T, PTT, CBC, CMP ####[place] [address] [address] [place], [place] [phone] GFR/1.73 sq M predicted among non-blacks MDRD (S/P/Bld) [Vol rate/Area] mL/min/{1.73_m2} Normal [facility] Comment on above: Result Comment: eGFR (Estimated [...] By: #### P T, PTT, CBC, CMP ####[facility] [place], [place] [phone] Glucose [Mass/Vol] 105 mg/dL High 74-99 [facility] Comment on above: Result Comment: The [place] Diabetes Association (ADA) provides guidance for cutoff [...] Standards of Medical Care in Diabetes 2016, [place] [employer] Association. Diabetes Care. 2016.39(Suppl 1). Performed By: #### P T, PTT, CBC, CMP ####[address] [phone] Potassium [Moles/Vol] 4.0 mmol/L Normal 3.7-5.1 [facility] Comment on above: Performed By: #### P T, PTT, CBC, CMP ####[facility] [place], [place] [phone] Protein [Mass/Vol] 7.1 g/dL Normal 6.3-8.0 [facility] Comment on above: Performed By: #### P T, PTT, CBC, CMP ####[place] [address] [place], [place] [phone] Sodium [Moles/Vol] 139 mmol/L Normal 136-144 [facility] Comment on above: Performed By: #### P T, PTT, CBC, CMP ####[facility] [place], [place] [phone] Urea nitrogen [Mass/Vol] 13 mg/dL Normal 9-24 [facility] Comment on above: Performed By: #### P T, PTT, CBC, CMP ####[facility] [address] [place], [place] [phone] Confirm Blood Typeon 019 ABO/RH(D) Positive Normal [facility] Comment on above: Performed By: #### C ONABO ####[facility] [address] [place], [place] [phone] ECG COMPLETEon 12-17-2018 ECG COMPLETE NAME : CLARENCE FLORES PID : [id number] : 1960 Gender : Male Race : ORD : [id number] Procedure Date : Dec 17 2018 10:39:05 Edit Date : Dec 18 2018 08:41:40 Diagnosis:NORMAL SINUS RHYTHM NORMAL ECG Confirmed by TARIQ DRUMMOND MD (65) on 12/18/2018 8:41:34 AM Ventricular Rate : 63 BPM Atrial Rate : 63 BPM P-R Interval : 160 ms QRS Duration : 94 ms Q-T Interval : 420 ms QTC Calculation(Bazett) : 429 ms P [place] : 36 degrees R [place] : 69 degrees T [place] : 80 degrees Test Reason : Location : 119 : A17 A17 Overread By : TARIQ DRUMMOND MD Edited By : TARIQ DRUMMOND MD Referred By : MAICO ANG Acquired by : PARIS ESTEVES [facility] PROGRESSon 12-17-2018 PROGRESS HNO ID: [id number] Author: Aimee Richards (Rn) Linda Service: ? [...] addendum labs and ekg to [facility]; Aimee Romero RN Lab Value Units [...] (65) on 12/18/2018 8:41:34 AM ? Normal [facility] Protimeon 12-17-2018 PT Coag (PPP) [Time] 10.8 s Normal 9.7-13.0 [facility] Comment on above: Performed By: #### P T, PTT, CBC, CMP #### [facility] [address] [place], [place] [address] PT Coag (PPP) [Time] 1.0 s Normal 0.9-1.3 [facility] Comment on above: Result Comment: Tyra min K Antagonist (VKA) Therapeutic Range: INR 2 to 3 (Target INR of 2.5) Note: For patients treated with VKA drugs, such as warfarin, the [place] [employer]icians 2012 Guideline recommends [...] Chest 2012, 141:7S-47S Pablito RA, et al. [facility] 2017, 70: 252-289 Performed By: #### P T, PTT, CBC, CMP #### [facility] [employer] [address] [place], [place] [address] Type and SCR (30D)on 019 ABO/RH(D) Positive Normal [facility] Comment on above: Performed By: #### T SCR30 ####[facility] [address] [place], [place] [phone] CNPTOUTREADonnan 12-16-2018 CNPTOUTREACH Patient Outreach (UR OLMN) -- CLARENCE FLORES ([id number]) 1960 M Date Time Provider Department 12/16/18 JESSICA HERRERA) UROLMN During your visit today, we recorded the following information about you: Allergies As of Date: 12/16/2018 Noted Allergy Reaction NITROGLYCERIN 11/26/2018 14 - Other: See Comments Date Reviewed: 11/26/2018 Reviewed by: Monica Shah - Fully Assessed Visit Diagnosis:Screening for genitourinary condition [Z13.89] Order(s):UA CHEMSTRIP ONLY [SQUA] Order #: [id number] Prescriptions as of 12/16/2018 Sig: OXYCODONE 5 [...] Status:Closed by EPIC, PRODUSER on 12/31/18 Normal [facility] HISTORY PHYSICALon HISTORY PHYSICAL HNO ID: [id number] Author: Jessica Herrera Service: ? Author Type: Nurse Practitioner Type: HANDP Filed: 12/17/2018 9:57 AM Note Text: UROLOGY SURGICAL HANDP SERVICE DATE: 12/17/2018 REFERRING PROVIDER: Maico Ang MD [address] [facility] [address] PCP: Shea Beach MD GENDER: SUBJECTIVE CHIEF [...] or problems. No history of angina, CHF, [place], cardiac surgery of stents. +history of HTN [...] problems. Neurologic: No history of TIA's, stroke, TIE LAYER tumor, impaired sensorium, hemiplegia, paraplegia or quadriplegia. [...] L renal mass Primary Surgeon: MD Allie, [facility] Healthquest Score: tbd BP 169/96 (BP [...] EKG. Jessica Herrera CNP Electronically signed Normal [facility] Ramses 11-26-2018 CNOV Office Visit (UROLMN ) -- CLARENCE FLORES ([id number]) 1960 M Date Time Provider Department 11/26/18 9:00 AM MAICO ANG During your visit today, we recorded the following information about you: Pulse Blood pressure Weight Height 67/minute 165/98 118 kg 1.676 m Maico Ang MD 11/29/2018 6:01 AM Signed [facility] NEW PATIENT HISTORY AND PHYSICAL EXAM PATIENT INFO: Clarence Flores 58 year old REFERRING M.D.: Damien Sales MD [address] [facility] [address] CHIEF COMPLAINT: left renal mass 58 y/o [...] file Gets together: Not on file Attends tenriism service: Not on file Active member of [...] PLAN: Per Staff Benton Dillon PA-C Pager [phone] Office [phone] I saw and evaluated the patient; the history and exam were reviewed with the PA/resident and confirmed by me; and the plan is outlined below. healthy 58 yr obese male with L lower pole [address] reviewed DW pt and family rec attempt RPNx they agree to proceed, will schedule Maico nAg MD Referring Provider: DAMIEN SALES [[id number]] Allergies As of Date: 11/26/2018 Noted Allergy [...] Status:Closed by MAICO ANG MD on 11/29/18 [facility] 11-26-2018 [facility] Patient:Clarence Flores MRN: Height:5' 6 [...] 46.7 % 12/17/2018 51.0 39.0 Progress Notes ([facility]): Aimee Romero RN 12/21/2018 9:03 [...] accompanied by self Case Discussed with Dr Berrtand OPTIMIZATION STATUS: Patient optimization pending Labs PACE EKG PACE SIGNATURE: Aimee Romero RN PATIENT NAME: Clarence Flores DATE: December 17, 2018 TIME: 11:47 AM PAGER/CONTACT #: addendum labs and ekg to [facility]; Aimee Romero RN Lab Value Units [...] year old REFERRING M.D.: Damien Sales MD [address] [place] [address] CHIEF COMPLAINT: left renal mass 58 y/o [...] file Gets together: Not on file Attends tenriism service: Not on file Active member of [...] PLAN: Per Staff Benton Dillon PA-C Pager [phone] Office [phone] I saw and evaluated the patient; the history and exam were reviewed with the PA/resident and confirmed by me; and the plan is outlined below. healthy 58 yr obese male with L lower pole [address] reviewed DW pt and family rec attempt RPNx they agree to proceed, will schedule Maico Ang MD Previous Version Normal [facility] PROGRESSon 11-26-2018 PROGRESS HNO ID: [id number] Author: Maico Ang Service: ? Author Type: Physician Type: Progress Notes Filed: 11/29/2018 6:01 AM Note Text: [facility] NEW PATIENT HISTORY AND PHYSICAL EXAM PATIENT INFO: Clarence Flores 58 year old REFERRING M.D.: Damien Sales MD [address] [place] [address] CHIEF COMPLAINT: left renal mass 58 y/o [...] file Gets together: Not on file Attends tenriism service: Not on file Active member of [...] PLAN: Per Staff Benton Dillon PA-C Pager [phone] Office [phone] I saw and evaluated the patient; the history and exam were reviewed with the PA/resident and confirmed by me; and the plan is outlined below. healthy 58 yr obese male with L lower pole [address] reviewed DW pt and family rec attempt RPNx they agree to proceed, will schedule Maico Ang MD Normal [facility] OT-CT CHEST W CON IMPORTon 1 OT-CT CHEST W CON IMPORT Images were obtained outside of [facility] [id number] Normal [facility] OT-CT ABDOMEN WO/W CON IMPOR Ton 11-05-2018 OT-CT ABDOMEN WO/W CON IMPORT Images were obtained outside of [facility] [id number] Normal [facility] CT-CT ABD/PELVIS WO CON IMPO RTon 10-05-2018 CT-CT ABD/PELVIS WO CON IMPORT Images were obtained outside of [facility] [id number] Normal [facility] Vital Signs Date Time Vital Sign Value Performing Clinician Facility 07-14-2023 14:01-0400 Blood Pressure Location Tariq GORDON [facility] [place] 07-14-2023 14:01-0400 Diastolic blood pressure 72 mm[Hg] Tariq GORDON [facility] [place] 07-14-2023 14:01-0400 Heart rate 74 /min Tariq GORDON [facility] [place] 07-14-2023 14:01-0400 Respiratory rate 16 /min Tariq GORDON [facility] [place] 07-14-2023 14:01-0400 Systolic blood pressure 112 mm[Hg] Tariq GORDON [facility] [place] 04-23-2023 15:37-0400 Body mass index (BMI) [Ratio] 40.84 kg/m2 Andra Ramierz APRN-[employer] Work Phone: [facility] 04-23-2023 15:37-0400 Body weight 114.76 kg Andra Ramirez DERRICKMAN HELPER-[employer] Work Phone: [facility] 04-23-2023 15:37-0400 Diastolic blood pressure 70 mm[Hg] Andra Ramirez DERRICKMAN HELPER-[employer] Work Phone: [facility] 04-23-2023 15:37-0400 Heart rate 82 /min Andra Ramirez DERRICKMAN HELPER-[employer] Work Phone: [facility] 04-23-2023 15:37-0400 Systolic blood pressure 112 mm[Hg] Andra Ramirez DERRICKMAN HELPER-[employer] Work Phone: [facility] 01-22-2023 15:36-0500 Body height 167.6 cm Andra Ramirez DERRICKMAN HELPER-[employer] Work Phone: [facility] 01-22-2023 15:36-0500 Body mass index (BMI) [Ratio] 44.87 kg/m2 Andra Ramirez DERRICKMAN HELPER-[employer] Work Phone: [facility] 01-22-2023 15:36-0500 Body weight 126.1 kg Andra Ramirez DERRICKMAN HELPER-[employer] Work Phone: [facility] 01-22-2023 15:36-0500 Diastolic blood pressure 98 mm[Hg] Andra Ramirez DERRICKMAN HELPER-[employer] Work Phone: [facility] 01-22-2023 15:36-0500 Heart rate 76 /min Andra Ramirez DERRICKMAN HELPER-[employer] Work Phone: [facility] 01-22-2023 15:36-0500 Systolic blood pressure 168 mm[Hg] Andra Ramirez DERRICKMAN [employer]PER[employer] Work Phone: [facility] 2022 04:47-0400 Diastolic blood pressure 67 mm[Hg] MD Shea Beach Work Phone: [facility] 2022 04:47-0400 Heart rate 72 /min MD Shea Beach Work Phone: [facility] 2022 04:47-0400 Respiratory rate 20 /min MD Shea Beach Work Phone: [facility] 2022 04:47-0400 SaO2% (BldA) [Mass fraction] 96 % MD Shea Beach Work Phone: [facility] 2022 04:47-0400 Systolic blood pressure 147 mm[Hg] MD Shea Beach Work Phone: [facility] 11-09-2022 22:35-0400 Body height 167.64 cm MD Shea Beach Work Phone: [facility] 11-09-2022 22:35-0400 Body temperature 98 [degF] MD Shea Beach Work Phone: [facility] 11-09-2022 22:35-0400 Body weight 129.8 kg MD Shea Beach Work Phone: [facility] Encounters Encounter Date Encounter Type Care Provider Facility Start: 08-28-2023 End: 08-30-2023 ambulatory CUCA PAULINO [facility] Start: 08-21-2023 End: 08-23-2023 ambulatory SHEA BEACH [facility] Start: 08-04-2023 End: 08-04-2023 ambulatory Tariq R NILL Facility:[facility] Start: 08-04-2023 End: 08-04-2023 Patient encounter procedure Tariq R NILL [facility] Start: 07-14-2023 End: 07-14-2023 ambulatory Tariq R NILL Facility:[facility] Start: 07-14-2023 End: 07-14-2023 Patient encounter procedure Tariq R NILL [facility] [place] Start: 06-30-2023 ambulatory Tariq NILL Facility:[facility] Start: 06-27-2023 ambulatory Tariq NILL Facility:[facility] [place] Start: 04-23-2023 End: 04-23-2023 Office outpatient visit 10 minutes Andra Ramirez [employer] Work Phone: [facility] Comment on above: BMI 40.0-44.9, adult ([facility]) (Primary Dx); Essential hypertension Start: 01-22-2023 End: 01-22-2023 Office outpatient visit 15 minutes Andra Ramirez [employer] Work Phone: [facility] Comment on above: Essential hypertensi on (Primary Dx); Chest pain, unspecified type; Obstructive sleep apnea; Diabetes mellitus type II, non insulin dependent ([facility]); Hypertensive left ventricular hypertrophy, without heart failure; BMI 40.0-44.9, adult ([facility]) Start: 12-16-2022 End: 12-16-2022 Subsequent hospital visit by physician Gema Richard Stress Room 1 [facility] Start: 2022 End: 11-12-2022 ambulatory Claudia Parra Facility:[facility] Start: 2022 Evaluation and manag ement of inpatient MD Shea Beach Work Phone: [facility] Work Phone: Start: 2022 observation encounter MD Ewa Beach Work Phone: [facility] Work Phone: Start: 11-24-2021 End: 11-25-[address] SHEA BEACH Facility:[facility] Start: 11-07-2021 Encounter for genera l adult medical examination without abnormal findings DR SHEA BEACH Start: 11-03-2021 End: 11-03-[address] SHEA [...] above: Performed By: #### C MP #### [facility] [address], [place] [address] Dr. Sunny Ortez Start: 12-17-2018 Antibody screen Comment on above: Performed By: #### T [id number] ####[facility] [id number] [place], [place] [phone] Partial nephrectomy Tariq GORDON Plan of Treatment Date Care Activity Detail Author Start: 01-20-2024 End: 01-20-2024 Patient encounter procedure 01/20/2024 3:30 PM EST Office Visit [facility] [address] [place] [id number] Mike Morelos DO [address] [facility], [address] [place] [address] [facility] Start: 03-25-2023 End: 03-25-2023 Patient encounter procedure 03/25/2023 3:30 PM EST Office Visit [facility] [address] [place] [address] Andra Ramirez, [employer] [address] [place] [address] [facility] Start: 12-17-2022 End: 12-17-2022 Professional / ancillary services management More [facility] Start: 2022 Blood chemistry [facility] Start: 2022 Hospital admission [facility] Start: 2022 End: 2022 [facility] Start: 2022 Plain chest X-ray XR chest 2V* [facility] Start: 2022 XR Chest 2 Views [facility] Start: 10-11-2022 Influenza vaccination Influenza Vaccine (#1) [facility] Start: 2012 Zoster Vaccines (1 of 2) Zoster Vaccines (1 of 2) [facility] Start: 1984 DTaP/Tdap/Td Vaccines (1 - Tdap) DTaP/Tdap/Td Vaccines (1 - Tdap) [facility] Start: 1981 Urine screening for protein Diabetes: Urine Protein Screening [facility] Start: 1980 Hepatitis C screening Hepatitis C Screening [facility] Start: 1972 Diabetic foot examination Diabetes: Foot Exam [facility] Start: 1972 Glaucoma screening Diabetes: Retinopathy Screening [facility] Start: 1968 Pneumococcal Vaccine: Pediatrics (0 to 5 Years) and At-Risk Patients (6 to 64 Years) (1 - PCV) Pneumococcal Vaccine: Pediatrics (0 to 5 Years) and At-Risk Patients (6 to 64 Years) (1 - PCV) [facility] Start: 11-11-1963 MMR Vaccines (1 of 1 - Standard series) MMR Vaccines (1 of 1 - Standard series) [facility] Start: 05-12-1963 COVID-19 Vaccine (#1) COVID-19 Vaccine (#1) [facility] Start: 1962 Hemoglobin A1c measurement Diabetes: Hemoglobin A1C [facility] Start: 1962 HIV screening HIV Screening [facility] Start: 1962 Lipid panel Lipid Panel [facility] Start: 1962 Screening for malignant neoplasm of colon [facility] Start: 1962 Yearly Adult Physical Yearly Adult Physical [facility] Anion gap measurement [facility] Calculated LDL cholesterol level [facility] Cholesterol.total/Ch oles terol in HDL [Mass Ratio] in Serum or Plasma [facility] Glucose measurement estimated from glycated hemoglobin [facility] NM Heart Perfusion W stress and W radionuclide IV Nuclear Stress Test Cardiac Nuclear Medicine Routine Chest pain, unspecified type 12/16/2022 8:08 AM EST [facility] Service Area Work Phone: VLDL cholesterol measurement [facility] Payers Date Payer Category Payer Unknown [id number] 2022 Self-pay 2022 Unknown [id number] 2022 Private Health Insurance [facility] [id number] 2022-Present [address] [place] [address] [id number] 2022 Unknown [id number] 1962 Unknown [id number] 2.16.840.1.005554.3.579.2.5 93 1962 Unknown [id number] 2.16.840.1.512327.3.579.2.5 93 1962 Unknown [id number] 2.16.840.1.840258.3.579.2.5 93 1962 Unknown [id number] 2.16.840.1.825224.3.579.2.5 93 1962 Unknown [id number] 2.16.840.1.472799.3.579.2.5 93 1962 Unknown [id number] 2.16.840.1.301306.3.579.2.5 93 1962 Unknown [id number] 2.16.840.1.228143.3.579.2.5 93 1962 Unknown [id number] 2.16.840.1.949654.3.579.2.5 93 1962 Unknown [id number] 2.16.840.1.021137.3.579.2.5 93 1962 Unknown [id number] 2.16.840.1.113468.3.579.2.5 93 1962 Unknown [id number] 2.16.840.1.321365.3.579.2.7 27 1962 Unknown [id number] 2.16.840.1.791398.3.579.2.7 27 1962 Unknown [id number] 2.16.840.1.885494.3.579.2.1 73 1962 Unknown [id number] 2.16.840.1.859026.3.579.2.1 73 1962 Unknown [id number] 2.16.840.1.569080.3.579.2.1 73 1962 Unknown [id number] 2.16.840.1.763194.3.579.2.1 73 1959 Unknown [id number] 1959 Unknown [id number] Unknown Fraser BC/BS [id number] Unknown [id number] 2.16.840.1.109174.3.579.2.5 31 Social History Date Type Detail Facility Start: 2022 End: 07-14-2023 Tobacco smoking status NHIS Never smoked tobacco (finding) [facility] Start: 1960 Sex Assigned At Male [facility] Tobacco smoking stat us ILIS Tobacco smoking consumption unknown [facility] Work Phone: Start: 12-16-2022 Gender identity Identifies as male gender (finding) [facility] Work Phone: Start: 12-16-2022 Sexual orientation Heterosexual (finding) [facility] Work Phone: Start: 12-06-2022 End: 04-23-2023 Exposure to SARS-CoV-2 (event) Not sure [facility] Start: 01-22-2023 Tobacco use and exposure Smokeless tobacco non-user [facility] Work Phone: Start: 01-22-2023 End: 04-23-2023 Alcohol intake Lifetime non-drinker (finding) [facility] Work Phone: Start: 01-22-2023 End: 04-23-2023 History of Social function [facility] Work Phone: Start: 01-22-2023 End: 04-23-2023 Tobacco use panel [facility] Tobacco smoking status Never [facility] Functional Status Date Assessment Result Facility 08-04-2023 Functional Status N/A [facility] 07-14-2023 Functional Status N/A [facility] [place] [facility] [place] Clinical Notes 01-22-2023 to 08-04-2023 [facility] 3:30 PM EDTPatient InstructionsAssessment & Plan Note - [facility] 01/23/2023 12:01 PM Omari Ramirez [facility] - 01/22/2023 3:30 PM EST Note Date & Type Note Facility 08-04-2023 Note Patient: CLARENCE FLORES Age: 62 years Sex: Male : 1960 Associated Diagnoses: None Author: Tariq GORDON MD Subjective no changes to H & P [facility] Comment on above: Result Comment: Elec tronically [...] disease: Father and Sister. Ovarian cancer: Mother. [facility] Comment on above: Result Comment: Elec tronically [...] Annual follow-up Andra Ramirez MSN, JOSÉ MIGUEL-AMBREEN, PMHNP-[facility] Please excuse any errors in grammar or translation related to this dictation. Voice recognition software was utilized to prepare this document.. documented in this encounter [facility] Work Phone: 04-23-2023 Instructions SUGEY Tabares [...] 9 months documented in this encounter [facility] Work Phone: 01-23-2023 Evaluation + Plan note Associated Problem(s): BMI 40.0-44.9, adult (CMS/HCC) Recently started treatment with Ozempic Weight is down 10 pounds Reviewed the merits of healthy lifestyle choices on overall cardiovascular health. [facility] Work Phone: 01-23-2023 Miscellaneous Notes Associated [...] EF 59%. documented in this encounter [facility] Work Phone: 01-23-2023 Evaluation + Plan note Associated Problem(s): Obstructive sleep apnea Remains compliant with CPAP [facility] Work Phone: 01-23-2023 Evaluation + Plan note Associated Problem(s): Diabetes mellitus type II, non insulin dependent (CMS/HCC) On ARB No statin Unknown hemoglobin A1c [facility] Work Phone: 01-23-2023 Evaluation + Plan note Associated Problem(s): Hypertensive left ventricular hypertrophy, without heart failure November 2022 TTE LVEF greater than 70% LVH moderate MR trace [facility] Work Phone: 01-23-2023 Evaluation + Plan note Associated Problem(s): Essential hypertension He has been compliant with addition of doxazosin and valsartan since discharge. Reports PCP stopped hydrochlorothiazide. Remains elevated in office today [facility] Work Phone: 01-23-2023 Evaluation + Plan note Associated Problem(s): Cardiac and Vasculature November 2022 hospitalization for chest pressure, ruled out ACS. Inpatient echo EF greater than 70%, no wall motion abnormality. Subsequent December 2022 perfusion study no ischemia, no infarct. Completed 4 METS. EF 59%. [facility] Work Phone: 01-22-2023 History of Present illness Narrative Chief Complaint Doing fine Reason for Visit Patient presents to the office today for outpatient follow-up for hospital follow up. Patient was recently hospitalized at [facility]. The patient was seen in Cardiology consult with subsequent cardiovascular management by [facility] Hospitalization records have been reviewed. Reason for Cardiology Consultation: Chest pressure, accelerated hypertension Consulting Application Engineer: Dr. Morelos Cardiovascular testing: Echocardiogram, outpatient perfusion study Changes to cardiovascular medical regimen at time of discharge: Added Cardura 8 mg, valsartan 320 mg, hydrochlorothiazide Discharge disposition: Home This is initial in clinic evaluation at [facility] Presents today ambulatory with steady gait. Accompanied [...] Diabetes mellitus type II, non insulin dependent ([facility]) On ARB No statin Unknown hemoglobin A1c Obstructive sleep apnea Remains compliant with CPAP BMI 40.0-44.9, adult ([facility]) Recently started treatment with Ozempic [...] the office if new symptoms arise. [employer] after 2 months Andra Ramirez MSN, D[employer]ICK[employer], PMHNP-BC [facility] Please excuse any errors in grammar or translation related to this dictation. Voice recognition software was utilized to prepare this document. documented in this encounter [facility] Work Phone: 01-22-2023 Instructions SUGEY Tabares [...] the office if new symptoms arise. [employer] after 2 months documented in this encounter [facility] Work Phone: Evaluation + Plan note Future Appointments Appointment Date:08/04/2023 08:30:00 AM Scheduled Provider: Location:[facility] Appointment Type:Surgery [facility] [place] Evaluation note Diagnosis Onset Date Chest pain acute Hypertensive urgency acute [facility] Work Phone: Evaluation note* Diagnosis Essential hypertension- Primary Unspecified essential hypertension Chest pain, unspecified type Obstructive sleep apnea Obstructive sleep apnea (adult) (pediatric) Diabetes mellitus type II, non insulin dependent ([facility]/HCC) Type II or unspecified type diabetes mellitus without mention of complication, not stated as uncontrolled Hypertensive left ventricular hypertrophy, without heart failure BMI 40.0-44.9, adult ([facility]/HCC) documented in this encounter [facility] Work Phone: Evaluation note* Diagnosis BMI 40.0-44.9, adult (CMS/HCC)- Primary Essential hypertension Unspecified essential hypertension documented in this encounter [facility] Work Phone: Hospital course Narrative No data available for this section [facility] [place] [facility] Discharge instructions No data available for this section [facility] [place] Progress note No data available for this section [facility] [place] Reason for referral (narrative)* Consultation (Routine) - Authorized Specialty Diagnoses / Procedures Referred By Contsharmin t Referred To Contact Cardiology Diagnoses Essential hypertension Procedures Follow Up In Cardiology Andra Ramirez APRN-AMBREEN [address] [place] [address] Referral ID Status Reason Start Date Expiration Date V isits Requested Visits Authorized [id number] Authorized 01/22/2023 01/22/2024 1 1 [facility] Work Phone: Reason for referral (narrative)* Consultation (Routine) - Authorized Specialty Diagnoses / Procedures Referred By Callum long Referred To Contact Cardiology Diagnoses Essential hypertension Procedures Follow Up In Cardiology Andra Ramirez APRN-CNP [address] [place] [address] Mike Morelos DO [address] [place] [address] Referral ID Status Reason Start Date Expiration Date V isits Requested Visits Authorized [id number] Authorized 04/23/2023 04/22/2024 1 1 [facility] Work Phone: Summary Purpose Family History [...] 2022 1:53am Hospital Course Note HNO ID: [id number] Author: Delonte pham ([facility]) Hrnchar Service: Urology Author Type: Nurse [...] CREATED AUTHOR AUTHOR'S ORGANIZ ATION 11/23/2022 [facility] DATE CREATED AUTHOR AUTHOR'S ORGANIZ ATION 08/08/2023 Eladio Gee [facility] DATE CREATED AUTHOR AUTHOR'S ORGANIZ ATION 09/01/2023 [facility] Care Teams (unrecognized sec tion and content) Team Status: Active Member Role Status Dates Shea Beach MD Primary Care Provider Active Team Status: Active Member Role Status Dates Shea Beach MD Primary Care Provider Active Damien Hercules DO Emergency Provider Active Derick Gomes MD Admit Provider, Attending Provi jefferson Active Caretaker Relationship Specialty Start Date End Date Shea Beach MD [address] [place] [address] PCP - General Family Medicine 11/13/22 Caretaker Relationship Specialty Start Date End Date Shea Beach MD [address] [place] [address] PCP - General Family Medicine 11/13/22 Caretaker Relationship Specialty Start Date End Date Shea Beach MD [address] [place] [address] PCP - General Family Medicine 11/13/22 Caretaker Relationship Specialty Start Date End Date Shea Beach MD [address] [place] [address] PCP - General Family Medicine 11/13/22 Goals [...] SPECT SINGLE STUDY AT REST OR STRESS LA CV STRS TST XERS&/OR RX CONT ECG W/O I&R LA CV STRS TST XERS&/OR RX CONT ECG I&R ONLY LA CV STRS TST XERS&/OR RX CONT ECG TRCG ONLY LA CV STRS TST XERS&/OR RX CONT ECG W/SI&R Mike Morelos, DO [address] [place] [address] Referral ID Status Reason Start Date Expiration Date V isits Requested Visits Authorized [id number] Authorized 11/13/2022 05/12/2023 5 5 Reason Comments Shortness of Breath Chest pressure Specialty Diagnoses / Procedures Referred By Contac t Referred To Contact Cardiology Diagnoses Chest pain, unspecified type Procedures Follow Up In Cardiology Mike Morelos, DO [address] [facility], [address] [place] [address] Mike Morelos, DO [address] [place] [address] Referral ID Status Reason Start Date Expiration Date V isits Requested Visits Authorized [id number] Authorized 01/06/2023 01/06/2024 1 1 Reason Comments Follow-up 1 month Specialty Diagnoses / Procedures Referred By Contac t Referred To Contact Cardiology Diagnoses Essential hypertension Procedures Follow Up In Cardiology Andra Ramirez, DERRICKMAN HELPER[employer]OUGH [address] [facility], [address] [place] [address], [place] [id number] Referral ID Status Reason Start Date Expiration Date V isits Requested Visits Authorized [id number] Authorized 03/25/2023 03/24/2024 1 1 FOR RECORDS [...] BE BASED ON THE PRIMARY CLINICAL RECORDS. [facility] [employer] [facility]. provides no warranty or guarantee of the accuracy or completeness of information in this document.
--- NOTE | 2023-09-17 10:49 | ED_ITS ---
HPI HPI - General Adult General Chief complaint: Arrhythmia/Palpitations Stated complaint: AFIB Time Seen by Provider: 09/17/23 10:39 Source: patient Mode of arrival: Wheelchair History of Present Illness HPI narrative: Patient presented to the emergency department for evaluation of I do not know why I am here . Patient was upstairs, getting colonoscopy. He states that he has routine colonoscopy, his PCP arranged. Per staff upstairs, when patient came out of his colonoscopy he was in A-fib with RVR. Patient states that he is asymptomatic, has no complaints of chest pain, shortness of breath, palpitatio ns. States that he feels fine and has no complaints. He has no shortness of breath, chest pain, blurry vision, double vision, palpitations, shortness of breath, syncope, presyncope. Blood pressure on the monitor at bedside is currently 134 systolic. Related Data Home Medications ?Medication ?Instructions ?Recorded ?Confirmed doxazosin 4 mg tablet (Cardura) 4 mg PO QPM 09/09/23 09/17/23 empagliflozin 10 mg tablet 10 mg PO DAILY 09/09/23 09/17/23 (Jardiance) metformin 500 mg tablet 500 mg PO DAILY diabetic 09/09/23 09/17/23 semaglutide 1 mg/dose (4 mg/3 mL) 1 mg subcut QWEEK 09/09/23 09/17/23 subcutaneous pen injector (Ozempic) metoprolol succinate 100 mg 150 mg PO DAILY 09/17/23 09/17/23 tablet,extended release 24 hr montelukast 10 mg tablet 10 mg PO DAILY 09/17/23 09/17/23 valsartan 320 mg tablet 320 mg PO DAILY 09/17/23 09/17/23 Allergies Allergy/AdvReac Type Severity Reaction Status Date / Time nitroglycerin Allergy syncope Verified 09/17/23 08:44 Opioid HPI Opioid Management Most Recent Opioid Data: Last Pain Assessment 09/17/23 10:10 Review of Systems ROS Narrative Negative unless otherwise stated in the HPI [facility] Medical History (Updated 09/17/23 @ 08:47 by Emily Angeles) Gallstone ?K80.20 - Calculus of gallbladder without cholecystitis without obstruction (ICD-10) Diabetes ?E11.9 - Type 2 diabetes mellitus without complications (ICD-10) Hypertension ?I10 - Essential (primary) hypertension (ICD-10) Surgical History (Updated 09/17/23 @ 08:47 by Emily Angeles) History of tonsillectomy ?Z90.89 - Acquired absence of other organs (ICD-10) H/O partial nephrectomy ?Z90.5 - Acquired absence of kidney (ICD-10) Family History (Updated 09/09/23 @ 13:08 by Monica Fontana) Father Heart disease Mother Ovarian cancer Social History (Updated 09/09/23 @ 13:09 by Monica Fontana) Within the past year, how often did you have a drink containing alcohol: never Score interpretation: A score less than 4 is consistent with normal alcohol consumption. 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 Patient is resting comfortably on cart. Cardiovascular: Irregularly Irregular, no murmurs gallops or rubs Respiratory: Patient is in no distress, no accessory muscle use, lungs are clear to auscultation, no wheezing, rales or rhonchi Back: non-tender, no CVA tenderness bilaterally to percussion. GI: Normal bowel sounds, no tenderness to palpation, no masses appreciated. No rebound, guarding, or rigidity noted. Constitutional Vital Signs, click to edit/add: Last Vital Signs Temp 97.8 F 09/17/23 10:18 Pulse 85 09/17/23 10:18 Resp 18 09/17/23 10:18 BP 94/65 09/17/23 10:18 Pulse Ox 97 09/17/23 10:26 O2 Del Method Room Air 09/17/23 10:26 Course Vital Signs Vital signs: Vital Signs Temperature 97.8 F 09/17/23 10:18 Pulse Rate 85 09/17/23 10:18 Respiratory Rate 18 09/17/23 10:18 Blood Pressure 94/65 09/17/23 10:18 Pulse Oximetry 97 09/17/23 10:18 Oxygen Delivery Method Room Air 09/17/23 10:18 Temperature 97.8 F 09/17/23 10:18 Pulse Rate 85 09/17/23 10:18 Respiratory Rate 18 09/17/23 10:18 Blood Pressure 94/65 09/17/23 10:18 Pulse Oximetry 97 09/17/23 10:26 Oxygen Delivery Method Room Air 09/17/23 10:26 Medical Decision Making MDM Narrative Medical decision making narrative: MDM Patient with history as above presented with atrial fibrillation. History obtained from patient, colonoscopy staff, PACU. Patient was nontoxic, stable. Ambulatory. Exam as above. EKG reviewed. Labs reviewed. Independently reviewed imaging. Reviewed external records. Differential diagnosis considered. Overall presentation is consistent with new onset A-fib. 1128 labs and imaging showing no acute abnormality. Patient's blood pressure currently 131/74, heart rate is currently 130. 5 of Lopressor ordered 1222 patient's heart rate has come down nicely, 95, blood pressures remained n ormotensive at 128/81, heart rate will jump from 95-1 15. Patient still is asymptomatic. Discussed with patient's PCP Dr. Read, is requesting a dose of Eliquis and placing patient overnight. Medical Records Medical records reviewed: Yes I reviewed the patient's medical records Lab Data Lab results reviewed: Yes I reviewed the patient's lab results Labs: Lab Results 09/17/23 Range/Units 10:53 WBC 11.2 H (4.0-11.0) 10^3/uL RBC 5.86 (4.70-6.10) 10^6/uL Hgb 17.4 (14.0-18.0) g/dL Hct 53.0 (42.0-54.0) % MCV 90.4 (80.0-94.0) fL MCH 29.7 (25.9-34.0) pg MCHC 32.8 (29.9-35.2) g/dL RDW 13.6 (11.0-15.0) % Plt Count 231 (150-450) 10^3/uL MPV 9.4 L (9.5-13.5) fL Neut % (Auto) 76.0 H (43.0-75.0) % Lymph % (Auto) 13.0 L (20.5-60.0) % [place] % (Auto) 8.3 (1.7-12.0) % Eos % (Auto) 1.8 (0.9-7.0) % Baso % (Auto) 0.6 (0.2-2.0) % Neut # (Auto) 8.5 H (1.4-6.5) 10^3/uL Lymph # (Auto) 1.5 (1.2-3.8) 10^3/uL [place] # (Auto) 0.9 H (0.3-0.8) 10^3/uL Eos # (Auto) 0.2 (0.0-0.7) 10^3/uL Baso # (Auto) 0.1 (0.0-0.1) 10^3/uL Abs Immat Gran (auto) 0.03 (0.00-0.03) 10^3/uL Imm/Tot Granulo (auto) 0.3 (0.0-0.5) % PT 11.3 (9.0-11.6) sec INR 1.07 APTT 30.7 (22.3-36.2) sec Sodium 141 (136-145) mmol/L Potassium 3.8 (3.5-5.1) mmol/L Chloride 107 (98-107) mmol/L Carbon Dioxide 24.5 (21.0-32.0) mmol/L Anion Gap 13.3 BUN 9.0 (7.0-18.0) mg/dL Creatinine 1.42 H (0.70-1.30) mg/dL Est GFR ( Amer) >60 (>=60) Est GFR (Non-Af Amer) 51 L (>=60) BUN/Creatinine Ratio 6.3 Glucose 100 (74-106) mg/dL Calcium 9.2 (8.5-10.1) mg/dL Total Bilirubin 1.2 H (0.2-1.0) mg/dL AST 22 (15-37) U/L ALT 21 (16-63) U/L Alkaline Phosphatase 61 (46-116) U/L Troponin I High Sens 9.0 (4.0-76.1) pg/mL Total Protein 6.7 (6.4-8.2) g/dL Albumin 3.5 (3.4-5.0) g/dL Globulin 3.2 g/dL Albumin/Globulin Ratio 1.1 Discharge Plan Discharge Chief Complaint: Arrhythmia/Palpitations Time of Disposition Decision: 12:22 Prescriptions / Home Meds: No Action Ozempic 1 mg/dose (4 mg/3 mL) pen injector 1 mg subcut QWEEK Rx Instructions: on fridays metformin 500 mg tablet 500 mg PO DAILY doxazosin [Cardura] 4 mg tablet 4 mg PO QPM Jardiance 10 mg tablet 10 mg PO DAILY montelukast 10 mg tablet 10 mg PO DAILY valsartan 320 mg tablet 320 mg PO DAILY metoprolol succinate 100 mg tablet extended release 24 hr 150 mg PO DAILY Print Language: Surinamese
[2023-09-17] MEDS: ASPIRIN 81 MG TAB.CHEW 324 MG PO (10:55)
[2023-09-17] MEDS: 0.9 % SODIUM CHLORIDE 500 ML IV (10:56)
[2023-09-17 11:00] LABS: Basophils Absolute Auto 0.1 10^3/uL (0.0-0.1); Basophils Percent Auto 0.6 % (0.2-2.0); Eosinophils Absolute Auto 0.2 10^3/uL (0.0-0.7); Eosinophils Percent Auto 1.8 % (0.9-7.0); Hemoglobin 17.4 g/dL (14.0-18.0); Immature Granulocytes Abs Auto 0.03 10^3/uL (0.00-0.03); Immature Granulocytes Pct Auto 0.3 % (0.0-0.5); Lymphocytes Absolute Auto 1.5 10^3/uL (1.2-3.8); Mean Corpuscular HGB Conc 32.8 g/dL (29.9-35.2); Mean Corpuscular Hemoglobin 29.7 pg (25.9-34.0); Mean Corpuscular Volume 90.4 fL (80.0-94.0); Mean Platelet Volume 9.4 fL (9.5-13.5); Monocytes Absolute Auto 0.9 10^3/uL (0.3-0.8); Monocytes Percent Auto 8.3 % (1.7-12.0); Neutrophils Absolute Auto 8.5 10^3/uL (1.4-6.5); Platelet Count 231 10^3/uL (150-450); Red Blood Count 5.86 10^6/uL (4.70-6.10); Red Cell Distribution Width 13.6 % (11.0-15.0); White Blood Count 11.2 10^3/uL (4.0-11.0)
[2023-09-17 11:14] LABS: Alanine Aminotransferase 21 U/L (16-63); Albumin Globulin Ratio 1.1; Albumin Level 3.5 g/dL (3.4-5.0); Alkaline Phosphatase 61 U/L (46-116); Anion Gap 13.3; Aspartate Amino Transferase 22 U/L (15-37); BUN Creatinine Ratio 6.3; Bilirubin Total 1.2 mg/dL (0.2-1.0); Calcium 9.2 mg/dL (8.5-10.1); Carbon Dioxide 24.5 mmol/L (21.0-32.0); Chloride 107 mmol/L (98-107); Estimated GFR (African America >60 (>=60); Estimated GFR (Non-African Ame 51 (>=60); Globulin 3.2 g/dL; Glucose 100 mg/dL (74-106); Potassium 3.8 mmol/L (3.5-5.1); Sodium 141 mmol/L (136-145); Total Protein 6.7 g/dL (6.4-8.2)
[2023-09-17 11:17] LABS: INR 1.07; Partial Thromboplastin Time 30.7 sec (22.3-36.2); Prothrombin Time 11.3 sec (9.0-11.6)
--- NOTE | 2023-09-17 11:35 | ECG_ITS ---
[facility] Test Date: 2023-09-17 Pat Name: BOB CHASE Department: Room: - Gender: Male Attending Urologist: : 1960 Requested By: SHEA BEACH Order Number: [id number] Reading MD: SHEA BEACH Measurements Intervals [place] Rate: 109 P: -72477 MS: -[id number] QRS: -42 QRSD: 90 T: 66 QT: 338 QTc: 402 Interpretive Statements 23967 Atrial fibrillation with rapid ventricular response 7200 Abnormal left axis deviation 8003 Consistent with pulmonary disease 8101 Low QRS voltage in limb leads 9150 abnormal ECG Compared to ECG 09/17/2023 10:00:18 Left-axis deviation now present Low QRS voltage now present Atrial abnormality no longer present Electronically Signed On 09-20-2023 7:21:26 EDT by SHEA BEACH
[2023-09-17] MEDS: METOPROLOL TARTRATE 5 MG/5 ML VIAL IVP (11:39)
--- NOTE | 2023-09-17 11:56 | ECG_ITS ---
[facility] Test Date: 2023-09-17 Pat Name: BOB CHASE Department: Room: - Gender: Male Licensed Weigher: : 1960 Requested By: SHEA BEACH Order Number: [id number] Reading MD: SHEA BEACH Measurements Intervals [place] Rate: 98 P: -29890 FL: -[id number] QRS: -7 QRSD: 88 T: 55 QT: 336 QTc: 392 Interpretive Statements 1210 Atrial fibrillation 9140 abnormal rhythm ECG Compared to ECG 09/17/2023 10:27:14 Left-axis deviation no longer present Electronically Signed On 09-20-2023 7:21:27 EDT by SHEA BEACH
[2023-09-17] MEDS: APIXABAN 5 MG TABLET 10 MG PO (12:41)
--- NOTE | 2023-09-17 12:53 | CA_ITS ---
Patient Name: BOB CHASE MR#: [id number] : 1960 Exam Date: 09/17/2023 Ordering Doctor: DR Stalin Singer . ECHOCARDIOGRAM REPORT PROCEDURE: CA ECHO DOPPLER COMPLETE INDICATIONS: New onset Atrial Fibrillation w/RVR COMPARISON: None. DESCRIPTION: COMPLETE ECHOCARDIOGRAM Real-time transthoracic echocardiography with 2D, M-mode, spectral and color flow Doppler performed. QUALITY: Technical quality was good. LEFT VENTRICLE: Normal chamber size. Moderate concentric left ventricular hypertrophy. Global left ventricular systolic function is normal. LV EF: Visual estimation of left ventricular ejection fraction is 55-60%. DIASTOLIC: Not adequately assessed due to heart rhythm. ATRIAL SEPTUM: LEFT ATRIUM: Normal chamber size. RIGHT ATRIUM: Normal chamber size. RIGHT VENTRICLE: Normal chamber size. Normal right ventricular systolic function. TRICUSPID VALVE: Normal mobility and thickness. No stenosis with trivial regurgitation. No evidence of pulmonary hypertension. RVSP 26 mmHg MITRAL VALVE: Normal mobility and thickness. No evidence of mitral valve stenosis. Mild mitral annular calcification. Trivial mitral regurgitation. AORTIC VALVE: Normal trileaflet appearance. Mildly calcified aortic valve. Normal leaflet mobility. No evidence of aortic valve stenosis. Trivial aortic regurgitation. AORTIC ROOT: Normal diameter and appearance. PULMONIC VALVE: Normal thickness and mobility. No stenosis. Trivial regurgitation. PERICARDIUM: Trivial pericardial effusion. IVC: Collapses with inspirations. Normal size. PLEURA: CONCLUSION: 1. Moderate concentric left ventricular hypertrophy with normal systolic function. LVEF is estimated at 55 to 60%. 2. Normal right ventricular size and systolic function. 3. No significant valvular dysfunction. 4. Normal right-sided pressures. 5. Trivial pericardial effusion. Adult Echocardiography Procedure Report Left Ventricle LVEDD (3.7 - 5.6 cm): 4.23 cm LVESD (2.2 - 4.0 cm): 3.05 cm LVIVS thickness (0.6 - 1.2 cm): 1.52 cm LVPW thickness (0.5 - 1.0 cm): 1.38 cm e': 0.15 m/s E - e': 4.95 LVOT Max Gradient: 3.65 mm[Hg], 3.65 mm[Hg] LVOT Area (cm2): 0.95 m/s Peak Velocity (LVOT): 0.95 m/s, 0.95 m/s Mean Velocity (LVOT): 0.70 m/s LVOT Diameter 2.13 cm Left Ventricular Ejection Fraction: 55-60 % Left Atrium LA Volume Index (2D A2C): 28.19 ml/m2 Left Atrium Systolic Dimension: 4.41 cm Mitral Valve MV E to A Ratio: 82.99 Mitral Valve A-Wave Peak Velocity: 0.01 m/s Mitral Valve E-Wave Peak Velocity: 0.76 m/s Right Ventricle RV Internal Diastolic Dimension: 3.08 cm Aorta AO Root Diam: 3.26 cm Ascending Ao Diam: 2.95 cm Aortic Valve AoV Area (Peak Kar): 2.54 cm2, 2.54 cm2, 2.54 cm2 AoV Area (VTI): 2.94 cm2, 2.94 cm2, 2.93 cm2 Peak Velocity(Antegrade Flow): 1.34 m/s, 1.34 m/s Peak Gradient(Antegrade Flow): 7.17 mm[Hg], 7.17 mm[Hg] Mean Velocity(Antegrade Flow): 0.86 m/s, 0.89 m/s Mean Gradient(Antegrade Flow): 3.45 mm[Hg], 3.71 mm[Hg] Velocity Time Integral: 24.95 cm, 25.44 cm Tricuspid Valve Peak Velocity (Regurgitant Flow): 1.91 m/s, 2.00 m/s, 1.91 m/s, 2.40 m/s Pulmonic Valve Peak Velocity: 0.56 m/s Peak Gradient: 1.52 mm[Hg], 0.97 mm[Hg] Right Atrium Right Atrium Systolic Pressure: 35.12 ml, 35.12 ml Dictated by: Kuldip Calix M.D. on 09/17/2023 at 16:36 Approved by: Kuldip Calix M.D. on 09/17/2023 at 16:38
--- OUTSIDE RECORDS SUMMARY | 2023-09-17 13:30 | XMS_ITS | CCD ---
Author Organization [facility] CliniSyor Care Team Providers Care Rural Route Carrier Name Role Phone YONG, DR VALDIVIA Consulting [...] HOY, DR VALDIVIA Consulting Unavailable DELPHINEY, DR VALDIVAI Primary Care Unavailable HOY, DR VALDIVIA Attending [...] Emergency Provider MD Derick Gomes Admit Provider MD Derick Gomes Attending Provider [phone] Claudia Parra Consulting Unavailable Shea Beach Primary [...] Shea Beach MD Primary Care Provider [phone] Shea Beach Primary Care Physician [phone] Tariq GORDON Attending Unavailable Shea Beach Referring [...] (1 source) Nitroglycerin; Translations: [nitroglycerin] Drug Allergy [facility] Repository (1 source) Aminolevulinic Acid Drug Allergy 0 [facility] Repository (4 sources) Nitroglycerin; Translations: [nitroglycerin] Drug Allergy 9 Other, Low blood pressure (disorder) [facility] Medications Current Medications Medication Drug Class(es) [...] Rudi Blackwood MD 08/28/23 Final result Normal [facility] CT ABDOMEN PELVIS W IV [...] Rogelio Bartlett MD 08/26/23 Final result Normal [facility] BUN + Creatinineon 4 Creatinine [Mass/Vol] 1.3 mg/dL High 0.7-1.2 [facility] Comment on above: Performed By: #### B UNCRT #### [facility] [address] [place] [address] Internal Combustion Engineer: Steve Haro MD #### PSAD #### [facility] [address] [place] [address] Internal Combustion Engineer: Bk Guerrero MD GFR/1.73 sq M.predicted among non-blacks MDRD (S/P/Bld) [Vol rate/Area] 63 mL/min/{1.73_m2} Normal >60 [facility] Comment on above: Result [...] secretion. Performed By: #### B UNCRT #### [address] [place] [address] Internal Combustion Engineer: Steve Haro MD #### PSAD #### [address] [id number] Internal Combustion Engineer: Bk Guerrero MD Urea nitrogen [Mass/Vol] 14 mg/dL Normal 8-23 [facility] Comment on above: Performed By: #### B UNCRT #### [address] [place] [address] Internal Combustion Engineer: Steve Haro MD #### PSAD #### [address] [id number] Internal Combustion Engineer: Bk Guerrero MD PSA, [employer] 08-21-2023 Prostatic Spec. Ag 4.30 ng/mL High 0.00-4.00 [facility] Comment on above: Result Comment: The Luther ECLIA assay is used. Results obtained with different assay methods cannot be used interchangeably. Performed By: #### B UNCRT #### [address] [place] [address] Internal Combustion Engineer: Steve Haro MD #### PSAD #### [place] [address] [place], [place] [id number] Internal Combustion Engineer: Bk Guerrero MD Consent for Procedure/Surger yon 08-06-2023 Consent for Procedure/Surgery [id number]#[id number] [facility] Consent for Treatmenton 07-12 Consent for Treatment [id number]#[id number] [facility] Main OR Preoperative Recordo n 08-04-2023 Main OR Preoperative Record Holding Area Document Type FT Summary Primary Physician: Tariq GORDON MD Finalized Date/Time: 08/04/23 08:14:07 Pt. Name: RENACLARENCE/Sex: 1960 Male Med Rec #: [id number] Physician: Tariq GORDON MD Financial #: [id number] Pt. Type: O Room/Bed: / Admit/Disch: 08/04/23 [...] 08/04/23 07:43 Elizabeth Sorto RN 08/04/23 08:14 [facility] Consent for Procedure/Surger yon 07-15-2023 Consent for Procedure/Surgery [id number]#[id number] [facility] Ambulatory Visit Summaryon 0 07-14-2023 Ambulatory Visit [...] for choosing us for your care. Normal [facility] Physician Referralon 024 Physician Referral [id number] Normal [facility] NM Heart Perfusion W stress and W [...] Eric Villa 12/17/2022 5:57 PM Dictation workstation: [id number] Interpreted By: Eric Villa and Giannuzzi Michael STUDY: MYOCARDIAL PERFUSION STRESS TEST WITH EXERCISE Performing facility: [facility], [address] [place] [address], [address], [address] Provider: Chaim Morelos DO, [facility] PCP: Dr. Beach Supervising provider: Andra Ramirez RN, [employer] MA[employer]GER INDICATION: Chest Pain; HISTORY: Gender: M; Age: 62 y/o ; Height: cm; Weight: kg. Diabetes; Family HX CAD; HTN; SOB; Denies smoking. COMPARISON: No comparison. ACCESSION NUMBER(S): [id number] ORDERING CLINICIAN: MIKE MORELOS TECHNIQUE: TWO DAY [...] PERFUSION STRESS TEST WITH EXERCISE Performing facility: [facility], [address] [place] [address], [address], [address] Provider: Chaim Morelos DO, FACC PCP: Dr. Beach Supervising provider: Andra Ramirez RN, [employer] MANAGER INDICATION: Chest Pain; HISTORY: Gender: M; Age: 62 y/o ; Height: cm; Weight: kg. Diabetes; Family HX CAD; HTN; SOB; Denies smoking. COMPARISON: No comparison. ACCESSION NUMBER(S): [id number] ORDERING CLINICIAN: MIKE MORELOS TECHNIQUE: TWO DAY [...] Eric Villa 12/17/2022 5:57 PM Dictation workstation: [id number] [facility] Work Phone: NM Heart Perfusion W stress and W radionuclide IVOrdered By: Eric Villa on 12-17-2022 [facility] Work Phone: NM Heart Perfusion W stress and W radionuclide Karen 12-16-2022 Radiology Study observation (narrative) [facility] Work Phone: Glucose Poct Glucometerson 1 Glucose [Mass/Vol] 132 mg/dL Normal [facility] Comment on above: Result Comment: [facility] Glucose Reference Range is dependent on time and content of last meal. Glucose of more than 200 mg/dL in a nonstressed, ambulatory subject supports the diagnosis of Diabetes Mellitus. PERFORMED BY: [place] [address] PATHOLOGIST COLD PRESS LOADER ROSCOE CASTRO M.D. Performed By: #### C BC, BMP, BNP, HS TROP, CK #### [address] Glucose [Mass/Vol] 141 mg/dL Normal [facility] Comment on above: Result Comment: [facility] Glucose Reference Range is dependent on time and content of last meal. Glucose of more than 200 mg/dL in a nonstressed, ambulatory subject supports the diagnosis of Diabetes Mellitus. PERFORMED BY: [place] [address] PATHOLOGIST COLD PRESS LOADER ROSCOE CASTRO M.D. Performed By: #### C BC, BMP, BNP, HS TROP, CK #### [address] echo transthoracicon [facility] echo transthoracic [facility] Main [place] [address] [place] [address] Echocardiogram Signed Patient: Clarence Flores MR#: [id number] : 1960 Acct:[id number] Age/Sex: 62 / M ADM Date: 11/10/22 Loc: Room: [address] [place] [address] Type: ADM INOo Attending Dr: Moises Carver Ordering Provider: Maura Venegas MD Date of Service: 11/10/2203/04/1501 [facility]/ECH echo transthoracic: chest pain Copies to: MD [...] Signed By: Lalita Capellan MD 11/12/22 1033 [facility] Glucose Poct Glucometerson 1 Glucose [Mass/Vol] 156 mg/dL [facility] Comment on above: Result Comment: [place] [facility] Glucose Reference Range is dependent on time and content of last meal. Glucose of more than 200 mg/dL in a nonstressed, ambulatory subject supports the diagnosis of Diabetes Mellitus. PERFORMED BY: [place] [address] PATHOLOGIST COLD PRESS LOADER ROSCOE CASTRO M.D. Performed By: #### G MECCA #### Point of Care testing , Glucose [Mass/Vol] 187 mg/dL Normal [facility] Comment on above: Result Comment: [facility] Glucose Reference Range is dependent on time and content of last meal. Glucose of more than 200 mg/dL in a nonstressed, ambulatory subject supports the diagnosis of Diabetes Mellitus. PERFORMED BY: [place] [address] PATHOLOGIST COLD PRESS LOADER ROSCOE CASTRO M.D. Performed By: #### C BC, BMP, BNP, HS TROP, CK #### [address] Glucose [Mass/Vol] 162 mg/dL Normal [facility] Comment on above: Result Comment: [place] [facility] Glucose Reference Range is dependent on time and content of last meal. Glucose of more than 200 mg/dL in a nonstressed, ambulatory subject supports the diagnosis of Diabetes Mellitus. PERFORMED BY: [place] [id number] PATHOLOGIST COLD PRESS LOADER ROSCOE CASTRO M.D. Performed By: #### C BC, BMP, BNP, HS TROP, CK #### [place] [id number] [place] A1C with Estimated Average [facility] 20[facility] Glucose [Mass/Vol] 157 mg/dL Normal [facility] Comment on above: Order Comment: Comme nt add Result Comment: PERF ORMED BY: [place] [address] PATHOLOGIST COLD PRESS LOADER ROSCOE CASTRO M.D. Performed By: #### C BC, BMP, BNP, HS TROP, CK #### [place] [id number] [place] HbA1c (Bld) [Mass fraction] 7.1 % High 4.3-5.[address] [facility] Comment on above: Order Comment: Comme nt add Result Comment: Incr eased risk for diabetes: 5.7 - 6.4 diabetes: >6.4 glycemic control for adults with diabetes: <7.0 Performed By: #### C BC, BMP, BNP, HS TROP, CK #### [address] Activated partial thrombopla stin time (aPTT) in platelet poor plasma by coagulation aOrdered By: Damien Hercules on 2022 aPTT Coag (PPP) [Time] 29.0 s 25.1-36.5 [facility] Comment on above: A hematocrit value g reater than 55% may lead to inaccurate results in coagulation testing. Patients having hematocrit values >55% require a special collection tube for coagulation studies. Please contact the laboratory at [phone] for redraw instructions. B-Type Natriuretic Peptideon 2022 Natriuretic peptide B (Bld) [Mass/Vol] 101.0 pg/mL High 5-[address] [facility] Comment on above: Result Comment: PERF ORMED BY: [place] [address] PATHOLOGIST COLD PRESS LOADER ROSCOE CASTRO M.D. Performed By: #### C BC, BMP, BNP, HS TROP, CK #### [address] Basic Metabolic Panelon Anion gap [Moles/Vol] 11.3 mmol/L Normal 6.0-15.0 [facility] Comment on above: Performed By: #### B MP #### [address] Calcium [Mass/Vol] 9.2 mg/dL Normal 8.6-10.[address] [facility] Comment on above: Performed By: #### B MP #### [place] [address] [place] Chloride [Moles/Vol] 106 mmol/L Normal 98-107 [facility] Comment on above: Performed By: #### B MP #### [facility] [address] [place] [address] [place] CO2 [Moles/Vol] 25.2 mmol/L Normal 21.0-31.0 [facility] Comment on above: Performed By: #### B MP #### [facility] [address] [place] [address] [place] Creatinine [Mass/Vol] 1.22 mg/dL Normal 0.70-1.[address] [facility] Comment on above: Performed By: #### B MP #### [facility] [address] [place] [address] [place] Creatinine Clr Calc Pharmacy 82.[address] [facility] Comment on above: Result Comment: PERF ORMED BY: [place] [address] PATHOLOGIST COLD PRESS LOADER ROSCOE CASTRO M.D. Performed By: #### B MP #### [place] [address] [place] GFR/1.73 sq M.predicted MDRD (S/P/Bld) [Vol rate/Area] mL/min/{1.73_m2} Normal [facility] Comment on above: Performed By: #### B MP #### [address] Glucose [Mass/Vol] 298 mg/dL Significant change up 70-[address] [facility] Comment on above: Result Comment: [place] Glucose Reference Range is dependent on time and content of last meal. Glucose of more than 200 mg/dL in a nonstressed, ambulatory subject supports the diagnosis of Diabetes Mellitus. ADA recommended reference range Performed By: #### B MP #### [facility] [address] [place] [address] [place] Potassium [Moles/Vol] 3.5 mmol/L Normal 3.5-5.[address] [facility] Comment on above: Performed By: #### B MP #### [place] [address] [place] Sodium [Moles/Vol] 139 mmol/L Normal 136-[address] [facility] Comment on above: Performed By: #### B MP #### [facility] [address] Urea nitrogen [Mass/Vol] 13 mg/dL Normal 7-[address] [facility] Comment on above: Performed By: #### B MP #### [address] Anion gap [Moles/Vol] 10.4 mmol/L Normal 6.0-15.0 [facility] Comment on above: Performed By: #### C BC, BMP, BNP, HS TROP, CK #### [address] Calcium [Mass/Vol] 9.0 mg/dL Normal 8.6-10.[address] [facility] Comment on above: Performed By: #### C BC, BMP, BNP, HS TROP, CK #### [address] Chloride [Moles/Vol] 106 mmol/L Normal 98-107 [facility] Comment on above: Performed By: #### C BC, BMP, BNP, HS TROP, CK #### [address] CO2 [Moles/Vol] 26.2 mmol/L Normal 21.0-31.0 [facility] Comment on above: Performed By: #### C BC, BMP, BNP, HS TROP, CK #### [address] Creatinine [Mass/Vol] 1.39 mg/dL High 0.70-1.[address] [facility] Comment on above: Performed By: #### C BC, BMP, BNP, HS TROP, CK #### [address] Creatinine Clr Calc Pharmacy 72.[address] [facility] Comment on above: Result Comment: PERF ORMED BY: [place] [address] PATHOLOGIST COLD PRESS LOADER ROSCOE CASTRO M.D. Performed By: #### C BC, BMP, BNP, HS TROP, CK #### [facility] [address] [place] [address] [place] GFR/1.73 sq M.predicted MDRD (S/P/Bld) [Vol rate/Area] 58.037 mL/min/{1.73_m2} Normal [facility] Comment on above: Performed By: #### C BC, BMP, BNP, HS TROP, CK #### [facility] [address] Glucose [Mass/Vol] 170 mg/dL High 70-[address] [facility] Comment on above: Result Comment: [facility] Glucose Reference Range is dependent on time and content of last meal. Glucose of more than 200 mg/dL in a nonstressed, ambulatory subject supports the diagnosis of Diabetes Mellitus. ADA recommended reference range Performed By: #### C BC, BMP, BNP, HS TROP, CK #### [facility] [address] Potassium [Moles/Vol] 3.6 mmol/L Normal 3.5-5.[address] [facility] Comment on above: Performed By: #### C BC, BMP, BNP, HS TROP, CK #### [facility] [address] Sodium [Moles/Vol] 139 mmol/L Normal 136-[address] [facility] Comment on above: Performed By: #### C BC, BMP, BNP, HS TROP, CK #### [facility] [address] [place] [address] [place] Urea nitrogen [Mass/Vol] 14 mg/dL Normal 7-[address] [facility] Comment on above: Performed By: #### C BC, BMP, BNP, HS TROP, CK #### [facility] [address] Basophils Auto (Bld) [#/Vol] Ordered By: Damien Hercules on 2022 Basophils (Bld) [#/Vol] 0.1 10*3/uL 0.0-0.[address] [facility] Basophils/100 WBC Auto (Bld) Ordered By: Damien Hercules on 2022 Basophils/100 WBC (Bld) 1.0 % . [facility] Calcium [Mass/volume] in Ser um or PlasmaOrdered By: Damien Hercules on 2022 Calcium [Mass/Vol] 9.0 mg/dL 8.6-10.[address] [facility] Carbon dioxide, total [Moles /volume] in Serum or PlasmaOrdered By: Damien Hercules on 2022 CO2 [Moles/Vol] 26.2 mmol/L 21.0-31.0 [facility] Chloride [Moles/volume] in S luke or PlasmaOrdered By: Damien Hercules on 2022 Chloride [Moles/Vol] 106 mmol/L 98-107 [facility] Coagulation Profileon 2022 aPTT Coag (Bld) [Time] 29.0 s Normal 25.1-36.5 [facility] Comment on above: Order Comment: REDRA W Result Comment: A he matocrit value greater than 55% may lead to inaccurate results in coagulation testing. Patients having hematocrit values >55% require a special collection tube for coagulation studies. Please contact the laboratory at [phone] for redraw instructions. PERFORMED BY: [place] [address] PATHOLOGIST COLD PRESS LOADER ROSCOE CASTRO M.D. Performed By: #### C BC, BMP, BNP, HS TROP, CK #### [facility] [address] [place] [address] INR Coag (PPP) [Relative time] 1.0 {INR} Normal [facility] Comment on above: Order Comment: REDRA [...] BC, BMP, BNP, HS TROP, CK #### [address] PT Coag (PPP) [Time] 12.4 s Normal 9.0-12.9 [facility] Comment on above: Order Comment: REDRA W Result Comment: A he matocrit value greater than 55% may lead to inaccurate results in coagulation testing. Patients having hematocrit values >55% require a special collection tube for coagulation studies. Please contact the laboratory at [phone] for redraw instructions. Performed By: #### C BC, BMP, BNP, HS TROP, CK #### [address] Complete Blood Count Auto Di ffon 2022 Basophils (Bld) [#/Vol] 0.1 10*3/uL Normal 0.0-0.[address] [facility] Comment on above: Result Comment: PERF ORMED BY: [place] [address] PATHOLOGIST COLD PRESS LOADER ROSCOE CASTRO M.D. Performed By: #### C BC, BMP, BNP, HS TROP, CK #### [address] Basophils/100 WBC (Bld) 1.0 % Normal . [facility] Comment on above: Performed By: #### C BC, BMP, BNP, HS TROP, CK #### [address] Eosinophils (Bld) [#/Vol] 0.3 10*3/uL Normal 0.0-0.[address] [facility] Comment on above: Performed By: #### C BC, BMP, BNP, HS TROP, CK #### [address] Eosinophils/100 WBC (Bld) 2.9 % Normal . [facility] Comment on above: Performed By: #### C BC, BMP, BNP, HS TROP, CK #### [address] Erythrocyte distribution width (RBC) [Ratio] 14.8 % Normal 12.0-14.[address] [facility] Comment on above: Performed By: #### C BC, BMP, BNP, HS TROP, CK #### [facility] [address] Hematocrit (Bld) [Volume fraction] 43.8 % Normal 38.8-50.[address] [facility] Comment on above: Performed By: #### C BC, BMP, BNP, HS TROP, CK #### [facility] [address] Hemoglobin (Bld) [Mass/Vol] 15.0 g/dL Normal 13.0-17.[address] [facility] Comment on above: Performed By: #### C BC, BMP, BNP, HS TROP, CK #### [address] Lymphocytes (Bld) [#/Vol] 1.8 10*3/uL Normal 1.00-4.[address] [facility] Comment on above: Performed By: #### C BC, BMP, BNP, HS TROP, CK #### [address] Lymphocytes/100 WBC (Bld) 19.7 % Normal . [facility] Comment on above: Performed By: #### C BC, BMP, BNP, HS TROP, CK #### [address] MCH (RBC) [Entitic mass] 28.8 pg Normal 27.5-35.[address] [facility] Comment on above: Performed By: #### C BC, BMP, BNP, HS TROP, CK #### [address] MCV (RBC) [Entitic vol] 84.1 fL Normal 83.5-[address] [facility] Comment on above: Performed By: #### C BC, BMP, BNP, HS TROP, CK #### [address] Mean Corpuscular HGB Conc 34.3 g/dL Normal 32.5-35.[address] [facility] Comment on above: Performed By: #### C BC, BMP, BNP, HS TROP, CK #### [facility] [address] [place] [address] Monocytes (Bld) [#/Vol] 0.8 10*3/uL Normal 0.0-0.[address] [facility] Comment on above: Performed By: #### C BC, BMP, BNP, HS TROP, CK #### [address] Monocytes/100 WBC (Bld) 20.13 % High 0.00-20.[address] [facility] Comment on above: Result Comment: For adults in ED, MDW > 20.0 may be associated with a higher risk of sepsis during the first 12 hrs of hospital admission Performed By: #### C BC, BMP, BNP, HS TROP, CK #### [address] Monocytes/100 WBC (Bld) 9.2 % Normal . [facility] Comment on above: Performed By: #### C BC, BMP, BNP, HS TROP, CK #### [address] Neutrophils (Bld) [#/Vol] 6.2 10*3/uL Normal 1.8-7.[address] [facility] Comment on above: Performed By: #### C BC, BMP, BNP, HS TROP, CK #### [place] [address] [place] Neutrophils/100 WBC (Bld) 67.2 % Normal . [facility] Comment on above: Performed By: #### C BC, BMP, BNP, HS TROP, CK #### [facility] [address] [place] [address] [place] NRBC% 0.1 /100{WBC} Normal 0-0.[address] [facility] Comment on above: Performed By: #### C BC, BMP, BNP, HS TROP, CK #### [address] Platelet mean volume (Bld) [Entitic vol] 7.7 fL Normal 6.6-10.[address] [facility] Comment on above: Performed By: #### C BC, BMP, BNP, HS TROP, CK #### [facility] [address] Platelets (Bld) [#/Vol] 194 10*3/uL Normal 150-[address] [facility] Comment on above: Performed By: #### C BC, BMP, BNP, HS TROP, CK #### [facility] [address] RBC (Bld) [#/Vol] 5.21 10*6/uL Normal 3.90-5.60 [facility] Comment on above: Performed By: #### C BC, BMP, BNP, HS TROP, CK #### [facility] [address] WBC (Bld) [#/Vol] 9.2 10*3/uL Normal 4.1-10.[address] [facility] Comment on above: Performed By: #### C BC, BMP, BNP, HS TROP, CK #### [facility] [address] Creatine Kinaseon 2022 CK [Catalytic activity/Vol] 111 U/L Normal 30-[address] [facility] Comment on above: Performed By: #### C BC, BMP, BNP, HS TROP, CK #### [facility] [address] Creatine kinase [Enzymatic a ctivity/volume] in Serum or PlasmaOrdered By: Damien Hercules on 2022 CK [Catalytic activity/Vol] 111 U/L 30- [facility] Creatinine [Mass/volume] in Serum or PlasmaOrdered By: Damien Hercules on 2022 Creatinine [Mass/Vol] 1.39 mg/dL 0.70-1.[address] [facility] ECG 12 lead ECGon 2022 ECG 12 lead ECG [facility] Main [place] [address] [place] [address] Electrocardiograph Report Signed Patient: Clarence Flores MR#: [id number] : 1960 Acct:[id number] Age/Sex: 61 / M ADM Date: 11/10/22 Loc: Room: 0Z3627-2 Type: ADM INOo Attending Dr: Derick Gomes [...] Signed By Damien Hercules DO [address] [facility] Eosinophils Auto (Bld) [#/Vo l]Ordered By: Damien Hercules on 2022 Eosinophils (Bld) [#/Vol] 0.3 10*3/uL 0.0-0.[address] [facility] Eosinophils/100 WBC Auto (Bl d)Ordered By: Damien Hercules on 2022 Eosinophils/100 WBC (Bld) 2.9 % . [facility] Erythrocyte distribution wid th Auto (RBC) [Ratio]Ordered By: Damien Hercules on 2022 Erythrocyte distribution width (RBC) [Ratio] 14.8 % 12.0-14.[address] [facility] Glucose Poct Glucometerson 1 Glucose [Mass/Vol] 193 mg/dL Normal [facility] Comment on above: Result Comment: [facility] Glucose Reference Range is dependent on time and content of last meal. Glucose of more than 200 mg/dL in a nonstressed, ambulatory subject supports the diagnosis of Diabetes Mellitus. PERFORMED BY: [place] [address] [place] [address] PATHOLOGIST COLD PRESS LOADER ROSCOE CASTRO M.D. Performed By: #### C BC, BMP, BNP, HS TROP, CK #### [address] Glucose [Mass/Vol] 219 mg/dL Normal [facility] Comment on above: Result Comment: [place] [facility] Glucose Reference Range is dependent on time and content of last meal. Glucose of more than 200 mg/dL in a nonstressed, ambulatory subject supports the diagnosis of Diabetes Mellitus. PERFORMED BY: [place] [address] PATHOLOGIST COLD PRESS LOADER ROSCOE CASTRO M.D. Performed By: #### C BC, BMP, BNP, HS TROP, CK #### [address] Glucose [Mass/Vol] 388 mg/dL Normal [facility] Comment on above: Result Comment: Orient om Glucose Reference Range is dependent on time and content of last meal. Glucose of more than 200 mg/dL in a nonstressed, ambulatory subject supports the diagnosis of Diabetes Mellitus. PERFORMED BY: [place] [address] PATHOLOGIST COLD PRESS LOADER ROSCOE CASTRO M.D. Performed By: #### C BC, BMP, BNP, HS TROP, CK #### [address] Commemt1 Glu2: Cleaned Meter Normal [facility] Comment on above: Result Comment: PERF ORMED BY: [place] [address] PATHOLOGIST COLD PRESS LOADER ROSCOE CASTRO M.D. Performed By: #### G LULS #### Point of Care testing , Glucose [Mass/Vol] 250 mg/dL Normal [facility] Comment on above: Result Comment: Orient om Glucose Reference Range is dependent on time and content of last meal. Glucose of more than 200 mg/dL in a nonstressed, ambulatory subject supports the diagnosis of Diabetes Mellitus. Performed By: #### G LULS #### Point of Care testing , Glucose [Mass/volume] in Ser um or PlasmaOrdered By: Damien Hercules on 2022 Glucose [Mass/Vol] 170 mg/dL 70-[address] [facility] Comment on above: ADA recommended refe rence rangeRandom Glucose Reference Range is dependent on time and content of last meal. Glucose of more than 200 mg/dL in a nonstressed, ambulatory subject supports the diagnosis of Diabetes Mellitus. Hematocrit Auto (Bld) [Volum e fraction]Ordered By: Damien Hercules on 2022 Hematocrit (Bld) [Volume fraction] 43.8 % 38.8-50.[address] [facility] Hemoglobin [Mass/volume] in BloodOrdered By: Damien Hercules on 2022 Hemoglobin (Bld) [Mass/Vol] 15.0 g/dL 13.0-17.[address] [facility] INR in Platelet poor plasma by Coagulation assayOrdered By: Damien Hercules on 2022 INR Coag (PPP) [Relative time] 1.0 {INR} [facility] Comment on above: INR Therapeutic Rang [...] RBC Auto (Bld) [#/Vol] 9.2 10*3/uL 4.1-10.[address] [facility] Lipid Panelon 2022 Cholesterol [Mass/Vol] 143 mg/dL Normal 140-200 [facility] Comment on above: Order Comment: Comme nt add Result Comment: Chol less than 200 mg/dl low risk Chol 201-239 mg/dl borderline risk Chol 240 mg/dl and greater high risk Performed By: #### C BC, BMP, BNP, HS TROP, CK #### [facility] [address] Cholesterol in HDL [Mass/Vol] 29 mg/dL Normal 23-[address] [facility] Comment on above: Order Comment: Comme nt add Result Comment: HDL CHOL ATP-III CLASSIFICATION Cardiovascular Risk HDL > or equal to 60 mg/dL LOW HDL < 40 mg/dL HIGH Performed By: #### C BC, BMP, BNP, HS TROP, CK #### [facility] [address] Cholesterol.total/Chol esterol in HDL [Mass ratio] 4.9 {ratio} Normal <5.[address] [facility] Comment on above: Order Comment: Comme nt add Result Comment: PERF ORMED BY: [place] [address] PATHOLOGIST COLD PRESS LOADER ROSCOE CASTRO M.D. Performed By: #### C BC, BMP, BNP, HS TROP, CK #### [facility] [address] LDL Cholesterol,Calculated 87 mg/dL Normal 0-[address] [facility] Comment on above: Order Comment: Comme nt add Result Comment: LDL ATP III CLASSIFICATION LDL less than 100 mg/dL Optimal LDL 100-129 mg/dL Near or above optimal LDL 130-159 mg/dL Borderline high LDL 160-189 mg/dL High LDL greater than 189 mg/dL Very high Performed By: #### C BC, BMP, BNP, HS TROP, CK #### [facility] [address] Triglyceride w/Reflex 133 mg/dL Normal 0-[address] [facility] Comment on above: Order Comment: Comme nt add Result Comment: TRIG ATP III CLASSIFICATION TRIG less than 150 mg/dL Normal TRIG 150-199 mg/dL Borderline high TRIG 200-500 mg/dL High TRIG greater than 500 mg/dL Very high Standard traceable to the Center for Disease Conrtrol and Prevention (CDC) test method. Performed By: #### C BC, BMP, BNP, HS TROP, CK #### [facility] [address] VLDL CHOLESTEROL 26 mg/dL Normal [facility] Comment on above: Order Comment: Comme nt add Performed By: #### C BC, BMP, BNP, HS TROP, CK #### [facility] [address] Lymphocytes Auto (Bld) [#/Vo l]Ordered By: Damien Hercules on 2022 Lymphocytes (Bld) [#/Vol] 1.8 10*3/uL 1.00-4.[address] [facility] Lymphocytes/100 WBC Auto (Bl d)Ordered By: Damien Hercules on 2022 Lymphocytes/100 WBC (Bld) 19.7 % . [facility] MCH Auto (RBC) [Entitic mass ]Ordered By: Damien Hercules on 2022 MCH (RBC) [Entitic mass] 28.8 pg 27.5-35.[address] [facility] MCHC Auto (RBC) [Mass/Vol]Or dered By: Damien Hercules on 2022 MCHC (RBC) [Mass/Vol] 34.3 g/dL 32.5-35.[address] [facility] MCV Auto (RBC) [Entitic vol] Ordered By: Damien Hercules on 2022 MCV (RBC) [Entitic vol] 84.1 fL 83.5-[address] [facility] Monocyte distribution width [Entitic volume] in Blood by AutomatedOrdered By: Damien Hercules on 2022 Monocyte distribution width Auto (Bld) [Entitic vol] 20.13 % 0.00-20.[address] [facility] Comment on above: For adults in ED, MD W > 20.0 may be associated with a higher risk of sepsis during the first 12 hrs of hospital admission Monocytes Auto (Bld) [#/Vol] Ordered By: Damien Hercules on 2022 Monocytes (Bld) [#/Vol] 0.8 10*3/uL 0.0-0.[address] [facility] Monocytes/100 WBC Auto (Bld) Ordered By: Damien Hercules on 2022 Monocytes/100 WBC (Bld) 9.2 % . [facility] Natriuretic peptide B [Mass/ Vol]Ordered By: Damien Hercules on 2022 Natriuretic peptide B (Bld) [Mass/Vol] 101.0 pg/mL 5-[address] [facility] Neutrophils Auto (Bld) [#/Vo l]Ordered By: Damien Hercules on 2022 Neutrophils (Bld) [#/Vol] 6.2 10*3/uL 1.8-7.[address] [facility] Neutrophils/100 WBC Auto (Bl d)Ordered By: Damien Hercules on 2022 Neutrophils/100 WBC (Bld) 67.2 % . [facility] No Panel InformationOrdered By: Damien Hercules on 2022 Estimated GFR (CKD-EPI) 58.037 mL/Min [facility] Creatinine Clearance (Chem 72.[address] [facility] Nucleated erythrocytes [Pres ence] in Blood by Automated countOrdered By: Damien Hercules on 2022 Nucleated RBC Auto Ql (Bld) 0.1 /100{WBC} 0-0.[address] [facility] Platelet mean volume Auto (B ld) [Entitic vol]Ordered By: Damien Hercules on 2022 Platelet mean volume (Bld) [Entitic vol] 7.7 fL 6.6-10.[address] [facility] Platelets Auto (Bld) [#/Vol] Ordered By: Damien Hercules on 2022 Platelets (Bld) [#/Vol] 194 10*3/uL 150-[address] [facility] Potassium [Moles/volume] in Serum or PlasmaOrdered By: Damien Hercules on 2022 Potassium [Moles/Vol] 3.6 mmol/L 3.5-5.[address] [facility] Prothrombin time (PT)Ordered By: Damien Hercules on 2022 PT Coag (PPP) [Time] 12.4 s 9.0-12.9 [facility] Comment on above: A hematocrit value g reater than 55% may lead to inaccurate results in coagulation testing. Patients having hematocrit values >55% require a special collection tube for coagulation studies. Please contact the laboratory at [phone] for redraw instructions. RBC Auto (Bld) [#/Vol]Ordere d By: Damien Hercules on 2022 RBC (Bld) [#/Vol] 5.21 10*6/uL 3.90-5.60 [facility] Serum or plasma anion gap de terminationOrdered By: Damien Hercules on 2022 Anion gap [Moles/Vol] 10.4 mmol/L 6.0-15.0 [facility] Sodium [Moles/volume] in Ser um or PlasmaOrdered By: Damien Hercules on 2022 Sodium [Moles/Vol] 139 mmol/L 136-[address] [facility] Troponin I High Sensitivityo n 2022 Troponin I High Sensitivity 10.1 pg/mL Normal 0.0-20.[address] [facility] Comment on above: Result Comment: PERF ORMED BY: [place] [address] PATHOLOGIST COLD PRESS LOADER ROSCOE CASTRO M.D. Performed By: #### H S TROP #### [facility] [address] [place] [address] Troponin I High Sensitivity 13.0 pg/mL Normal 0.0-20.[address] [facility] Comment on above: Result Comment: PERF ORMED BY: [place] [address] PATHOLOGIST COLD PRESS LOADER ROSCOE CASTRO M.D. Performed By: #### H S TROP #### [facility] [address] [place] [address] Troponin I High Sensitivity 15.8 pg/mL Normal 0.0-20.[address] [facility] Comment on above: Result Comment: PERF ORMED BY: [place] [address] PATHOLOGIST COLD PRESS LOADER ROSCOE CASTRO M.D. Performed By: #### C BC, BMP, BNP, HS TROP, CK #### [facility] [address] [place] [address] Troponin I.cardiac [Mass/vol ume] in Serum or Plasma by Detection limit <= 0.01 ng/Ordered By: Damien Hercules on 10-01-2023 Troponin I.cardiac DL <= 0.01 ng/mL [Mass/Vol] 15.8 pg/mL 0.0-20.[address] [facility] Urea nitrogen [Mass/volume] in Serum or PlasmaOrdered By: Damien Hercules on 2022 Urea nitrogen [Mass/Vol] 14 mg/dL 7-[address] [facility] WBC Auto (Bld) [#/Vol]Ordere d By: Damein Hercules on 2022 WBC (Bld) [#/Vol] 9.2 10*3/uL 4.1-10.[address] [facility] XR chest 2V*on 2022 XR chest 2V* [facility] [place] [address] XRay Report Signed Patient: Clarence Flores MR#: [id number] : 1960 Acct:[id number] Age/Sex: 62 / M ADM Date: 11/10/22 Loc: Room: [address] [place] [address] Type: ADM INOo Attending Dr: Maura Venegas [...] Oreilly Jr., D.O.11/10/2022 10:13 AM Dictation Location: [place] [address] Transcribed By: [facility] 11/10/22 1013 Dictated By: Ruel Oreilly Jr, DO 11/10/22 1012 Signed By: 11/10/22 [address] [facility] CBC AUTO DIFFon 11-24-2021 BASO # 0.0 103/ul Normal 0.0-0.1 [facility] Comment on above: Performed By: #### C BC #### [facility] [address] [place] [address] Dr. Sunny Ortez Basophils/100 WBC (Bld) 0.5 % Normal 0.2-2.0 [facility] Comment on above: Performed By: #### C BC #### [facility] [address] [place] [address] Dr. Sunny Ortez EO # 0.4 103/ul Normal 0.0-0.7 [facility] Comment on above: Performed By: #### C BC #### [facility] [address] [place] [address] Dr. Sunny Ortez Eosinophils/100 WBC (Bld) 4.6 % Normal 0.9-7.0 [facility] Comment on above: Performed By: #### C BC #### [facility] [address] [place] [address] Dr. Sunny Ortez Erythrocyte distribution width (RBC) [Ratio] 14.2 % Normal 11.0-15.0 [facility] Comment on above: Performed By: #### C BC #### [facility] [address] [place] [address] Dr. Sunny Ortez Hematocrit (Bld) [Volume fraction] 45.8 % Normal 42.0-54.0 [facility] Comment on above: Performed By: #### C BC #### [facility] [address] [place] [address] Dr. Sunny Ortez Hemoglobin (Bld) [Mass/Vol] 15.1 g/dL Normal 14.0-18.0 [facility] Comment on above: Performed By: #### C BC #### [facility] [address] [place] [address] Dr. Sunny Ortez IG # 0.02 10e3/ul Normal 0.00-0.03 [facility] Comment on above: Performed By: #### C BC #### [facility] [address] [place] [address] Dr. Sunny Ortez IG % 0.2 % Normal 0.0-0.5 [facility] Comment on above: Performed By: #### C BC #### [facility] [address] [place] [address] Dr. Sunny Ortez LYMPH # 1.7 103/ul Normal 1.2-3.8 [facility] Comment on above: Performed By: #### C BC #### [facility] [address] [place] [address] [address] Sunny Ortez Lymphocytes/100 WBC (Bld) 20.2 % Critically low 20.5-60.0 [facility] Comment on above: Performed By: #### C BC #### [facility] [address] [place] [address] Dr. Sunny Ortez MANUAL DIFF REQ NO Normal [facility] Comment on above: Performed By: #### C BC #### [facility] [address] [place] [address] Dr. Sunny Ortez MCH (RBC) [Entitic mass] 27.7 pg Normal 25.9-34.0 [facility] Comment on above: Performed By: #### C BC #### [facility] [address] [place] [address] Dr. Sunny Ortez MCHC (RBC) [Mass/Vol] 33.0 g/dL Normal 29.9-35.2 [facility] Comment on above: Performed By: #### C BC #### [facility] [address] [place] [address] Dr. Sunny Ortez MCV (RBC) [Entitic vol] 83.9 fL Normal 80.0-94.0 [facility] Comment on above: Performed By: #### C BC #### [facility] [address] [place] [address] Dr. Sunny Ortez MONO # 0.7 103/ul Normal 0.3-0.8 [facility] Comment on above: Performed By: #### C BC #### [facility] [address] [place] [address] Dr. Sunny Ortez Monocytes/100 WBC (Bld) 8.0 % Normal 1.7-12.0 [facility] Comment on above: Performed By: #### C BC #### [facility] [address] [place] [address] [address] Sunny Ortez NEUT # 5.6 103/ul Normal 1.4-6.5 [facility] Comment on above: Performed By: #### C BC #### [facility] [address] [place] [address] [address] Sunny Ortez Neutrophils/100 WBC (Bld) 66.5 % Normal 43.0-75.0 [facility] Comment on above: Performed By: #### C BC #### [facility] [address] [place] [address] [address] Sunny Ortez Platelet mean volume (Bld) [Entitic vol] 9.1 fL Critically low 9.5-13.5 [facility] Comment on above: Performed By: #### C BC #### [facility] [address] [place] [address] Dr. Sunny Ortez PLT 215 103/ul Normal 150-450 [facility] Comment on above: Performed By: #### C BC #### [facility] [address] [place] [address] Dr. Sunny Ortez RBC 5.46 106/ul Normal 4.70-6.10 [facility] Comment on above: Performed By: #### C BC #### [facility] [address] [place] [address] Dr. Sunny Ortez WBC 8.4 103/ul Normal 4.0-11.0 [facility] Comment on above: Performed By: #### C BC #### [facility] [address] [place] [address] Dr. Sunny Ortez GLYCOHEMOGLOBIN A1Con 2021 ADA RECOMMENDATION SEE BELOW Normal [facility] Comment on above: Result Comment: ADA RECOMMENDED LIMIT 4.0 - 6.0 ADA THERAPEUTIC TARGET < 7.0 ACTION SUGGESTED > 7.0 Performed By: #### A 1C #### [facility] [address] [place] [address] Dr. Sunny Ortez Glucose [Mass/Vol] 117 mg/dL Normal [facility] Comment on above: Performed By: #### A 1C #### [facility] [address] [place] [address] Dr. Sunny Ortez HbA1c (Bld) [Mass fraction] 5.7 % Normal 4.5-6.2 [facility] Comment on above: Performed By: #### A 1C #### [facility] [address] [place] [address] Dr. Sunny Ortez PROF 14(COMP METB)on 11-24- 022 Albumin [Mass/Vol] 3.7 g/dL Normal 3.4-5.0 [facility] Comment on above: Performed By: #### C MP #### [facility] [address] [place] [address] Dr. Sunny Ortez Albumin/Globulin [Mass ratio] 1.0 {ratio} Normal [facility] Comment on above: Performed By: #### C MP #### [facility] [address] [place] [address] Dr. Sunny Ortez ALP [Catalytic activity/Vol] 61 U/L Normal 46-116 [facility] Comment on above: Performed By: #### C MP #### [facility] [address] [place] [address] Dr. Sunny Ortez ALT [Catalytic activity/Vol] 42 U/L Normal 16-63 [facility] Comment on above: Performed By: #### C MP #### [facility] [address] [place] [address] Dr. Sunny Ortez Anion gap [Moles/Vol] 8.1 mmol/L Normal [facility] Comment on above: Performed By: #### C MP #### [facility] [address] [place] [address] Dr. Sunny Ortez AST [Catalytic activity/Vol] 28 U/L Normal 15-37 [facility] Comment on above: Performed By: #### C MP #### [facility] [address] [place] [address] Dr. Sunny Ortez Bilirubin [Mass/Vol] 0.5 mg/dL Normal 0.2-1.0 [facility] Comment on above: Performed By: #### C MP #### [facility] [address] [place], [place] [id number] Dr. Sunny Ortez Calcium [Mass/Vol] 8.7 mg/dL Normal 8.5-10.1 [facility] Comment on above: Performed By: #### C MP #### [facility] [address] [place] [address] Dr. Sunny Ortez Chloride [Moles/Vol] 107 mmol/L Normal 98-107 [facility] Comment on above: Performed By: #### C MP #### [facility] [address] [place] [address] Dr. Sunny Ortez CO2 [Moles/Vol] 30.0 mmol/L Normal 21.0-32.0 [facility] Comment on above: Performed By: #### C MP #### [facility] [address] [place] [address] Dr. Sunny Ortez Creatinine [Mass/Vol] 1.29 mg/dL Normal 0.70-1.30 [facility] Comment on above: Performed By: #### C MP #### [facility] [address] [place] [address] Dr. Sunny Ortez EGFR-AF TRINIDADIAN >60 Normal >=60 [facility] Comment on above: Performed By: #### C MP #### [facility] [address] [place] [address] Dr. Sunny Ortez EGFR-NON AF TRINIDADIAN 57 mL/min/1.73m2 Critically low >=60 [facility] Comment on above: Performed By: #### C MP #### [facility] [address] [place] [address] Dr. Sunny Ortez Globulin (S) [Mass/Vol] 3.7 g/dL Normal [facility] Comment on above: Performed By: #### C MP #### [facility] [address] [place] [address] Dr. Sunny Ortez Glucose [Mass/Vol] 108 mg/dL Critically high 74-106 [facility] Comment on above: Performed By: #### C MP #### [facility] [address] [place] [address] Dr. Sunny Ortez Potassium [Moles/Vol] 4.1 mmol/L Normal 3.5-5.1 [facility] Comment on above: Performed By: #### C MP #### [facility] [address] [place] [address] Dr. Sunny Ortez Protein [Mass/Vol] 7.4 g/dL Normal 6.4-8.2 [facility] Comment on above: Performed By: #### C MP #### [facility] [address] [place] [address] Dr. Sunny Ortez Sodium [Moles/Vol] 141 mmol/L Normal 136-145 [facility] Comment on above: Performed By: #### C MP #### [facility] [address] [place] [address] Dr. Sunny Ortez Urea nitrogen [Mass/Vol] 16.0 mg/dL Normal 7.0-18.0 [facility] Comment on above: Performed By: #### C MP #### [facility] [address] [place] [address] Dr. Sunny Ortez Urea nitrogen/Creatinine [Mass ratio] 12.4 mg/mg Normal [facility] Comment on above: Performed By: #### C MP #### [facility] [address] [place] [address] Dr. Sunny Ortez OCC BLD IMMUNO SCREENon 10-12 OCCULT BLOOD Negative Normal NEGATIVE [facility] Comment on above: Performed By: #### O BSCRN #### [facility] [address] [place] [address] Dr. Sunny Ortez [facility]on 10-12 SARS-CoV-2 (COVID-19) RNA RENÉE+probe Ql (Unsp spec) Not detected Normal NOT DETECTED [facility] Comment on above: Result Comment: When diagnostic [...] for this test is supported by the [employer] and Human Service's declaration [...] used). Performed By: #### C MP #### [facility] [address] [place] [address] [address] Sunny Ortez MRI ABDOMEN W CONon [...] follow-up is recommended. Electronically authenticated by: ELVIN JEKNINS Date: 2021-05-06 07:49 Normal [facility] CREATININEon 05-04-2021 Creatinine [Mass/Vol] 1.37 mg/dL Critically high 0.66-1.25 [facility] Comment on above: Performed By: #### C ALISHA #### [facility] [address] [address] [address] Sunny Ortez EGFR-AF TRINIDADIAN >60 Normal >=60 [facility] Comment on above: Performed By: #### C ALISHA #### [facility] [address] [address] [address] Sunny Ortez EGFR-NON AF TRINIDADIAN 53 mL/min/1.73m2 Critically low >=60 [facility] Comment on above: Performed By: #### C ALISHA #### [facility] [address] [address] [address] Sunny Ortez CREATININEon 04-12-2021 Creatinine [Mass/Vol] 1.28 mg/dL Critically high 0.66-1.25 [facility] Comment on above: Performed By: #### C ALISHA #### [facility] [address] [place] [address] [address] Sunny Ortez EGFR-AF TRINIDADIAN >60 Normal >=60 [facility] Comment on above: Performed By: #### C ALISHA #### [facility] [address] [address] [address] Sunny Ortez EGFR-NON AF TRINIDADIAN 58 mL/min/1.73m2 Critically low >=60 [facility] Comment on above: Performed By: #### C ALISHA #### [facility] [address] [address] [address] Sunny Ortez MRI ABDOMEN WO CONon [...] STEVE COLLADO Date: 2021-04-12 14:39 Normal [facility] CT ABD/PELV W CONon 03-28-[address] [...] mild inflammatory changes. Consider cystitis Normal [facility] INSULINon 03-26-2021 Insulin 30.7 uIU/mL Critically high 2.6-24.9 [facility] Comment on above: Performed By: #### I NSULIN #### [facility] [address] [place] [address] Dr. Sunny Ortez XR KNEE LT 4V [...] STEVE PALACIOS Date: 2021-03-25 17:14 Normal [facility] BNPon 03-24-2021 Natriuretic peptide B (Bld) [Mass/Vol] 202.0 pg/mL Normal <=900.0 [facility] Comment on above: Performed By: #### C MP #### [facility] [address] [place] [address] Dr. Sunny Ortez CBC AUTO DIFFon 03-24-2021 BASO # 0.1 103/ul Normal 0.0-0.1 [facility] Comment on above: Performed By: #### C BC #### [facility] [address] [place] [address] Dr. Sunny Ortez Basophils/100 WBC (Bld) 0.8 % Normal 0.2-2.0 [facility] Comment on above: Performed By: #### C BC #### [facility] [address] [place] [address] Dr. Sunny Ortez EO # 0.5 103/ul Normal 0.0-0.7 [facility] Comment on above: Performed By: #### C BC #### [facility] [address] [place] [address] Dr. Sunny Ortez Eosinophils/100 WBC (Bld) 4.6 % Normal 0.9-7.0 [facility] Comment on above: Performed By: #### C BC #### [facility] [address] [place] [address] Dr. Sunny Ortez Erythrocyte distribution width (RBC) [Ratio] 13.6 % Normal 11.0-15.0 [facility] Comment on above: Performed By: #### C BC #### [facility] [address] [place] [address] Dr. Sunny Ortez Hematocrit (Bld) [Volume fraction] 45.6 % Normal 42.0-54.0 [facility] Comment on above: Performed By: #### C BC #### [facility] [address] [place] [address] Dr. Sunny Ortez Hemoglobin (Bld) [Mass/Vol] 15.2 g/dL Normal 14.0-18.0 [facility] Comment on above: Performed By: #### C BC #### [facility] [address] [place] [address] Dr. Sunny Ortez IG # 0.04 10e3/ul Critically high 0.00-0.03 [facility] Comment on above: Performed By: #### C BC #### [facility] [address] [place] [address] Dr. Sunny Ortez IG % 0.4 % Normal 0.0-0.5 [facility] Comment on above: Performed By: #### C BC #### [facility] [address] [place] [address] Dr. Sunny Ortez LYMPH # 1.9 103/ul Normal 1.2-3.8 [facility] Comment on above: Performed By: #### C BC #### [facility] [address] [place] [address] Dr. Sunny Ortez Lymphocytes/100 WBC (Bld) 18.4 % Critically low 20.5-60.0 [facility] Comment on above: Performed By: #### C BC #### [facility] [address] [place] [address] Dr. Sunny Ortez MANUAL DIFF REQ NO Normal [facility] Comment on above: Performed By: #### C BC #### [facility] [address] [place] [address] Dr. Sunny Ortez MCH (RBC) [Entitic mass] 27.9 pg Normal 25.9-34.0 [facility] Comment on above: Performed By: #### C BC #### [facility] [address] [address] [address] Sunny Ortez MCHC (RBC) [Mass/Vol] 33.3 g/dL Normal 29.9-35.2 [facility] Comment on above: Performed By: #### C BC #### [facility] [address] [address] [address] Sunny Ortez MCV (RBC) [Entitic vol] 83.7 fL Normal 80.0-94.0 [facility] Comment on above: Performed By: #### C BC #### [facility] [address] [address] [address] Sunny Ortez MONO # 0.8 103/ul Normal 0.3-0.8 [facility] Comment on above: Performed By: #### C BC #### [facility] [address] [address] [address] Sunny Ortez Monocytes/100 WBC (Bld) 8.0 % Normal 1.7-12.0 [facility] Comment on above: Performed By: #### C BC #### [facility] [address] [place] [address] Dr. Sunny Ortez NEUT # 7.0 103/ul Critically high 1.4-6.5 [facility] Comment on above: Performed By: #### C BC #### [facility] [address] [address] [address] Sunny Ortez Neutrophils/100 WBC (Bld) 67.8 % Normal 43.0-75.0 [facility] Comment on above: Performed By: #### C BC #### [facility] [address] [address] [address] Sunny Ortez Platelet mean volume (Bld) [Entitic vol] 9.5 fL Normal 9.5-13.5 [facility] Comment on above: Performed By: #### C BC #### [facility] [address] [address] [address] Sunny Ortez PLT 322 103/ul Normal 150-450 [facility] Comment on above: Performed By: #### C BC #### [facility] [address] [address] [address] Sunny Ortez RBC 5.45 106/ul Normal 4.70-6.10 [facility] Comment on above: Performed By: #### C BC #### [facility] [address] [address] [address] Sunny Oretz WBC 10.4 103/ul Normal 4.0-11.0 [facility] Comment on above: Performed By: #### C BC #### [facility] [address] [address] [address] Sunny rOtez FREE THYROXINE INDEX T7on FTI 3.01 Normal [facility] Comment on above: Performed By: #### C MP #### [facility] [address] [place] [address] Dr. Sunny Ortez T3U 35.0 % Normal 23.5-40.5 [facility] Comment on above: Performed By: #### C MP #### [facility] [address] [place] [address] Dr. Sunny Ortez T4 [Mass/Vol] 8.60 ug/dL Normal 5.53-11.00 [facility] Comment on above: Performed By: #### C MP #### [facility] [address] [place] [address] Dr. Sunny Ortez GLYCOHEMOGLOBIN A1Con 2021 ADA RECOMMENDATION ADA THERAPEUTIC TARG ET 6.0 - 7.0 ACTION SUGGESTED > 7.0 Normal [facility] Comment on above: Performed By: #### A 1C #### [facility] [address] [place] [address] Dr. Sunny Ortez Glucose [Mass/Vol] 197 mg/dL Normal [facility] Comment on above: Performed By: #### A 1C #### [facility] [address] [place] [address] Dr. Sunny Ortez HbA1c (Bld) [Mass fraction] 8.5 % Critically high <=6.0 [facility] Comment on above: Performed By: #### A 1C #### [facility] [address] [address] [address] Sunny Ortez LIPID PROFILEon 03-24-2021 CHOL-HDL RATIO NORM SEE BELOW Normal [facility] Comment on above: Result Comment: 3.3 - 4.4 LOW RISK 4.4 - 7.1 AVERAGE RISK 7.1 - 11.0 MODERATE RISK >11.0 HIGH RISK Performed By: #### C MP #### [facility] [address] [address] [address] Sunny Ortez Cholesterol [Mass/Vol] 150 mg/dL Normal <=200 [facility] Comment on above: Performed By: #### C MP #### [facility] [address] [place] [address] Dr. Sunny Ortez Cholesterol in HDL [Mass/Vol] 30 mg/dL Normal [facility] Comment on above: Performed By: #### C MP #### [facility] [address] [place] [address] Dr. Sunny Ortez Cholesterol in LDL [Mass/Vol] 96.8 mg/dL Normal [facility] Comment on above: Performed By: #### C MP #### [facility] [address] [place] [address] Dr. Sunny Ortez Cholesterol.total/Chol esterol in HDL [Mass ratio] 5.0 {ratio} Normal [facility] Comment on above: Performed By: #### C MP #### [facility] [address] [place] [address] Dr. Sunny Ortez HDL NORMAL > or = 60 mg/dl - LO W CARDIOVASCULAR RISK <40 mg/dl - HIGH CARDIOVASCULAR RISK Normal [facility] Comment on above: Performed By: #### C MP #### [facility] [address] [place] [address] Dr. Sunny Ortez LDL CALC NORMAL SEE BELOW Normal [facility] Comment on above: Result Comment: <100 mg/dl OPTIMAL 100 - 129 mg/dl NEAR OR ABOVE OPTIMAL 130 - 159 mg/dl BORDERLINE HIGH 160 - 189 mg/dl HIGH >190 mg/dl VERY HIGH Performed By: #### C MP #### [facility] [address] [place] [address] Dr. Sunny Ortez Triglyceride [Mass/Vol] 116 mg/dL Normal <=150 [facility] Comment on above: Performed By: #### C MP #### [facility] [address] [place] [address] Dr. Sunny Ortez VLDL CALC 23.2 mg/dL Normal [facility] Comment on above: Performed By: #### C MP #### [facility] [address] [place] [address] Dr. Sunny Ortez PROF 14(COMP METB)on 022 Albumin [Mass/Vol] 3.5 g/dL Normal 3.5-5.0 [facility] Comment on above: Performed By: #### C MP #### [facility] [address] [place] [address] Dr. Sunny Ortez Albumin/Globulin [Mass ratio] 1.0 {ratio} Normal [facility] Comment on above: Performed By: #### C MP #### [facility] [address] [place] [address] Dr. Sunny Ortez ALP [Catalytic activity/Vol] 73 U/L Normal 38-126 [facility] Comment on above: Performed By: #### C MP #### [facility] [address] [place] [address] Dr. Sunny Ortez ALT [Catalytic activity/Vol] 28 U/L Normal 21-72 [facility] Comment on above: Performed By: #### C MP #### [facility] [address] [place] [address] Dr. Sunny Ortez Anion gap [Moles/Vol] 14.7 mmol/L Normal [facility] Comment on above: Performed By: #### C MP #### [facility] [address] [place] [address] Dr. Sunny Ortez AST [Catalytic activity/Vol] 13 U/L Critically low 17-59 [facility] Comment on above: Performed By: #### C MP #### [facility] [address] [place] [address] Dr. Sunny Ortez Bilirubin [Mass/Vol] 0.7 mg/dL Normal 0.2-1.3 [facility] Comment on above: Performed By: #### C MP #### [facility] [address] [place] [address] Dr. Sunny Ortez Calcium [Mass/Vol] 8.6 mg/dL Normal 8.4-10.2 [facility] Comment on above: Performed By: #### C MP #### [facility] [address] [place] [address] Dr. Sunny Ortez Chloride [Moles/Vol] 105 mmol/L Normal 98-107 [facility] Comment on above: Performed By: #### C MP #### [facility] [address] [place] [address] Dr. Sunny Ortez CO2 [Moles/Vol] 23.6 mmol/L Normal 22.0-30.0 [facility] Comment on above: Performed By: #### C MP #### [facility] [address] [place] [address] Dr. Sunny Ortez Creatinine [Mass/Vol] 1.33 mg/dL Critically high 0.66-1.25 [facility] Comment on above: Performed By: #### C MP #### [facility] [address] [place] [address] Dr. Sunny Ortez EGFR-AF TRINIDADIAN >60 Normal >=60 [facility] Comment on above: Performed By: #### C MP #### [facility] [address] [place] [address] Dr. Sunny Ortez EGFR-NON AF TRINIDADIAN 55 mL/min/1.73m2 Critically low >=60 [facility] Comment on above: Performed By: #### C MP #### [facility] [address] [place] [address] Dr. Sunny Ortez Globulin (S) [Mass/Vol] 3.6 g/dL Normal [facility] Comment on above: Performed By: #### C MP #### [facility] [address] [place] [address] Dr. Sunny Ortez Glucose [Mass/Vol] 253 mg/dL Critically high 74-106 [facility] Comment on above: Performed By: #### C MP #### [facility] [address] [address] [address] Sunny Ortez Potassium [Moles/Vol] 4.3 mmol/L Normal 3.4-5.0 [facility] Comment on above: Performed By: #### C MP #### [facility] [address] [address] [address] Sunny Ortez Protein [Mass/Vol] 7.1 g/dL Normal 6.1-8.2 [facility] Comment on above: Performed By: #### C MP #### [facility] [address] [address] [address] Sunny Ortez Sodium [Moles/Vol] 139 mmol/L Normal 137-145 [facility] Comment on above: Performed By: #### C MP #### [facility] [address] [place] [address] Dr. Sunny Ortez Urea nitrogen [Mass/Vol] 18.0 mg/dL Normal 9.0-20.0 [facility] Comment on above: Performed By: #### C MP #### [facility] [address] [place] [address] Dr. Sunny Ortez Urea nitrogen/Creatinine [Mass ratio] 13.5 mg/mg Normal [facility] Comment on above: Performed By: #### C MP #### [facility] [address] [place] [address] Dr. Sunny Ortez TSHon 03-24-2021 TSH 1.335 uIU/mL Normal 0.470-4.68 0 [facility] Comment on above: Performed By: #### C MP #### [facility] [address] [place] [address] Dr. Sunny Ortez TSH RANGE SEE BELOW Normal [facility] Comment on above: Result Comment: <0.3 4 UIU/ml HYPERTHYROID 0.34-5.60 UIU/ml EUTHYROID >5.60 UIU/ml HYPOTHYROID Performed By: #### C MP #### [facility] [address] [place] [address] Dr. Sunny Ortez URIC ACID SERUMon 03-24-2021 Urate [Mass/Vol] 4.9 mg/dL Normal 3.5-8.5 [facility] Comment on above: Performed By: #### C #### [facility] [address] [address] [address] Sunny Ortez Basic Metabolic Panlon 06-20 Anion gap [Moles/Vol] 11 mmol/L Normal 9-18 [facility] Calcium [Mass/Vol] 8.9 mg/dL Normal 8.5-10.2 [facility] Chloride [Moles/Vol] 106 mmol/L High 97-105 [facility] CO2 [Moles/Vol] 22 mmol/L Normal 22-30 [place] Creatinine [Mass/Vol] 1.28 mg/dL High 0.73-1.22 [facility] eGFR- Amer. >60 Normal [facility] GFR/1.73 sq M predicted among non-blacks MDRD (S/P/Bld) [Vol rate/Area] 58 . Normal [place] Comment on above: Result Comment: eGFR (Estimated [...] GFR. Glucose [Mass/Vol] 148 mg/dL High 74-99 [facility] Comment on above: Result Comment: The [place] [employer] (ADA) provides guidance for cutoff [...] Standards of Medical Care in Diabetes 2016, [place] [employer]. Diabetes Care. 2016.39(Suppl 1). Potassium [Moles/Vol] 4.5 mmol/L Normal 3.7-5.1 [facility] Sodium [Moles/Vol] 139 mmol/L Normal 136-144 [facility] Urea nitrogen [Mass/Vol] 10 mg/dL Normal 9-24 [place] CNPNon 06-21-2019 CNPN Telephone (UROLMN) -- CLARENCE FLORES ([id number]) 1960 M Date Time Provider Department 06/21/19 DIANE DILLON PA-C During your visit today, we recorded the following information about you: Diane Dillon PA-C 06/21/2019 2:[address] and CXR with no recurrence or mets. Repeat CT and CXR in 6M. Patient to schedule on his own at [facility] [place] Dillon PA-C Pager [phone] Office [id number] Allergies As of Date: 06/21/2019 Noted Allergy Reaction NITROGLYCERIN 11/26/2018 14 - Other: See Comments Date Reviewed: 02/05/2019 Reviewed by: Diane Dillon - Fully Assessed Reason for Visit: Results [95] Primary Visit Diagnosis:Left renal mass [N28.89] Other Visit Diagnosis:Renal cell carcinoma of left kidney (HCC) [C64.2] Order(s):XR CHEST 2V FRONTAL/LAT [[id number]] Order #: [id number] FUTURE CT ABD/PEL W IVCON [[id number]] Order #: [id number] FUTURE iv contrast (will be provided with [...] DECIPEDA PA-C, DIANE C on 06/21/[address] [place] [address] ABD/PEL W IVCONon 05-11-[address] ABD/PEL W IVCON * * *Final Report* * * DATE OF EXAM: Jun 21 2019 9:40AM [facility] 0530 - CT ABD/PEL W IVCON [...] any questions regarding this interpretation, please call [phone]. If you are unable to reach us at the number above, please feel free to contact [facility] at [phone]. [id number] Normal [place] PROGRESSon 06-21-2019 PROGRESS HNO ID: [id number] Author: Holly Garcia (Tech) Service: ? Author Type: [facility] Psychiatrist Type: Progress Notes Filed: 06/21/2019 2:25 PM [...] Garcia June 21, 2019 2:24 PM Normal [place] PROGRESS HNO ID: [id number] Author: Holly Garcia (Tech) Service: ? Author Type: [facility] Psychiatrist Type: Progress Notes Filed: 06/21/2019 9:51 AM [...] given.. PATIENT DISCHARGED TO: Ambulatory patient, left MD department area. A Diagnostic radioactive procedure has taken place, with no further precautions necessary other than routine body substance precautions. More information regarding radiation safety can be found using this link: [email or web address]. [email or web address] SIGNATURE: Holly Garcia PATIENT NAME: Clarence Flores DATE: June 21, 2019 TIME: 8:39 AM PAGER/CONTACT #: Normal [place] XR CHEST 2V FRONTAL/LATon XR CHEST 2V [...] any questions regarding this interpretation, please call [phone]. If you are unable to reach us at the number above, please feel free to contact [facility] at [phone]. [id number] Normal [place] CNPNon 06-17-2019 CNPN Telephone (RADTSA) -- CLARENCE FLORES ([id number]) 1960 M Date Time Provider Department 06/17/19 RIKAMarco AntonioMAICO (HISTORICAL) RICARDO During your visit today, we recorded the following information about you: Clarisse Alicia 06/17/2019 3:19 PM Signed Clarence Flores [id number] is coming in Tuesday 06/20 for CTs w/IV on; please sign pending ISTAT BMP as our lab's chemistry will be down that day and he will need CRE clearance prior to. Thanks Clarisse Alicia, payment analyst [facility] Allergies As of Date: 06/17/2019 Noted Allergy Reaction NITROGLYCERIN 11/26/2018 14 - Other: See Comments Date Reviewed: 02/05/2019 Reviewed by: Diane Dunn) Darshana - Fully Assessed Reason for Visit: Orders [681] Primary Visit Diagnosis:Left renal mass [N28.89] Order(s):ISTAT BMP [SQISTBMP] Order #: [id number] FUTURE Prescriptions as of 06/17/2019 Sig: IV [...] Status:Closed by DIANE DILLON PA-C on 06/17/19 [facility] CNOVon 02-05-2019 CNOV Office Visit (UROLMN ) -- CLARENCE FLORES ([id number]) 1960 M Date Time Provider Department 02/05/19 10:50 AM DIANE DILLON) UROGIL During your visit today, we recorded the following information about you: Pulse Blood pressure Weight Height 64/minute 179/81 120.5 kg 1.676 m Diane Dillon PA-C 02/05/2019 10:49 AM Signed [facility] POST-OPERATIVE PATIENT CC: Patient is here [...] PA-C Electronically signed Referring Provider: MAICO ANG [[id number]] Allergies As of Date: 02/05/2019 Noted Allergy Reaction NITROGLYCERIN 11/26/2018 14 - Other: See Comments Date Reviewed: 02/05/2019 Reviewed by: Diane Dunn) Darshana - Fully Assessed Visit Diagnosis:Renal cell carcinoma of left kidney (HCC) [C64.2] Order(s):CT ABD/PEL W IVCON [[id number]] Order #: [id number] FUTURE iv contrast (will be provided with [...] 1 EachRfl: 0 XR CHEST 2V FRONTAL/LAT [[id number]] Order #: [id number] FUTURE BASIC METABOLIC PNL [SQBMP] Order #: [id number] FUTURE Prescriptions as of 02/05/2019 Sig: HYDRALAZINE [...] Status:Closed by DIANE DILLON PA-C on 02/05/19 [facility] Flavio 02-05-2019 [facility] Patient Outreach (UR OLMN) -- CLARENCE FLORES ([id number]) 1960 M Date Time Provider Department 02/05/19 DIANE DILLON) URON During your visit today, we recorded the following information about you: Allergies As of Date: 02/05/2019 Noted Allergy Reaction NITROGLYCERIN 11/26/2018 14 - Other: See Comments Date Reviewed: 02/05/2019 Reviewed by: Diane Dillon - Fully Assessed Visit Diagnosis:Screening for genitourinary condition [Z13.89] Order(s):UA CHEMSTRIP ONLY [SQUA] Order #: [id number]. #:[id number] Prescriptions as of 02/05/2019 Sig: IV CONTRAST [...] Status:Closed by DESI CALDERÓN on 02/22/19 Normal [place] PROGRESSon 02-05-2019 PROGRESS HNO ID: [id number] Author: Diane Dillon Service: ? Author Type: Physician Etl Database Developer Type: Progress Notes Filed: 02/05/2019 10:49 AM Note Text: [facility] POST-OPERATIVE PATIENT CC: Patient is here [...] if any new symptoms or conditions arise Daine Dillon PA-C Electronically signed Normal [place] Urinalysison 02-05-2019 Bilirubin, Urine Negative Normal Negative [facility] Comment on above: Performed By: #### U A ####[facility], [place] [phone] Clarity (U) Clear Normal Clear [place] Comment on above: Performed By: #### U A ####[place] [address] [address], [place] [phone] Color (U) Yellow Normal Yellow [place] Comment on above: Performed By: #### U A ####[place] [address] [address] [phone] Comments SEE COMMENT Normal [place] Comment on above: Result Comment: Micr oscopic not warranted Performed By: #### U A ####[place] [address] [address] [phone] Glucose Ql (U) Negative Normal Negative [place] Comment on above: Performed By: #### U A ####[place] [address] [address] [phone] Hemoglobin/Blood,Ur Negative Normal Negative [facility] Comment on above: Performed By: #### U A ####[place] [address] [address] [phone] Ketones Ql (U) Negative Normal Negative [place] Comment on above: Performed By: #### U A ####[place] [address] [address] [phone] Leukest Negative Normal Negative [place] Comment on above: Performed By: #### U A ####[place] [address] [address] [phone] Nitrite Ql (U) Negative Normal Negative [place] Comment on above: Performed By: #### U A ####[place] [address] [address] [phone] pH (Bld) 6.5 Normal 4.5-8.0 [place] Comment on above: Performed By: #### U A ####[place] [address] [address] [phone] Protein (U) [Mass/Vol] Trace Criticall y abnormal Negative [place] Comment on above: Performed By: #### U A ####[place] [phone] Specific [place], Ur 1.020 Normal 1.005-1 .03 0 [place] Comment on above: Performed By: #### U A ####[place] [phone] Urine Shin Comment SEE COMMENT Normal [facility] Comment on above: Result Comment: N/A Performed By: #### U A ####[place] [phone] Urobilinogen Qn (U) Normal Normal Normal [facility] Comment on above: Performed By: #### U A ####[place] [phone] Basic Metabolic Panlon 12-25 Anion gap [Moles/Vol] 9 mmol/L Normal 9-18 [facility] Comment on above: Performed By: #### C BCDIF, BMP ####[place] [phone] Calcium [Mass/Vol] 8.3 mg/dL Low 8.5-10.2 [facility] Comment on above: Performed By: #### C BCDIF, BMP ####[place] [phone] Chloride [Moles/Vol] 109 mmol/L High 97-105 [facility] Comment on above: Performed By: #### C BCDIF, BMP ####[place] [phone] CO2 [Moles/Vol] 21 mmol/L Low 22-30 [place] Comment on above: Performed By: #### C BCDIF, BMP ####[place] [address] [place], [place] [phone] Creatinine [Mass/Vol] 1.24 mg/dL High 0.73-1.22 [facility] Comment on above: Performed By: #### C KRAEL, BMP ####[facility] [place] [address] [phone] eGFR- Amer. >60 Normal [facility] Comment on above: Performed By: #### C KAREL, BMP ####[address] [phone] GFR/1.73 sq M predicted among non-blacks MDRD (S/P/Bld) [Vol rate/Area] mL/min/{1.73_m2} Normal [place] Comment on above: Result Comment: eGFR (Estimated [...] GFR. Performed By: #### C KAREL, BMP ####[facility] [place] [address] [phone] Glucose [Mass/Vol] 117 mg/dL High 74-99 [facility] Comment on above: Result Comment: The [place] Diabetes Association (ADA) provides guidance for cutoff [...] Standards of Medical Care in Diabetes 2016, [place] [employer]. Diabetes Care. 2016.39(Suppl 1). Performed By: #### C KAREL, BMP ####[facility] [place], [place] [phone] Potassium [Moles/Vol] 3.8 mmol/L Normal 3.7-5.1 [facility] Comment on above: Performed By: #### C BCDIF, BMP ####[place] [address] [place], [place] [phone] Sodium [Moles/Vol] 139 mmol/L Normal 136-144 [facility] Comment on above: Performed By: #### C BCDIF, BMP ####[place] [address] [place] [place], [place] [phone] Urea nitrogen [Mass/Vol] 16 mg/dL Normal 9-24 [place] Comment on above: Performed By: #### C BCDIF, BMP ####[place] [address] [place] [place], [place] [phone] CBC and Differentialon 12-25 Abs Baso 0.04 k/uL Normal <0.11 [place] Comment on above: Performed By: #### C BCDIF, BMP ####[place] [address] [place], [place] [phone] Abs [place] 1.12 k/uL High <0.87 [place] Comment on above: Performed By: #### C BCDIF, BMP ####[place] [address] [address], [place] [phone] Abs Neut 9.63 k/uL High 1.45-7.50 [place] Comment on above: Performed By: #### C BCDIF, BMP ####[place] [address] [place] [place], [place] [phone] Absolute nRBC <0.01 Normal <0.01 [place] Comment on above: Performed By: #### C BCDIF, BMP ####[place] [address] [address], [place] [phone] Basophils/100 WBC (Bld) 0.3 % Normal [place] Comment on above: Performed By: #### C BCDIF, BMP ####[place] [address] [address] [place] [phone] DTYPE Auto Diff Normal [place] Comment on above: Performed By: #### C BCDIF, BMP ####[place] [address] [address] [place] [phone] Eosinophils (Bld) [#/Vol] 0.24 10*3/uL Normal <0.46 [place] Comment on above: Performed By: #### C BCDIF, BMP ####[place] [address] [address] [place] [phone] Eosinophils/100 WBC (Bld) 2.0 % Normal [place] Comment on above: Performed By: #### C BCDIF, BMP ####[place] [address] [address] [place] [phone] Erythrocyte distribution width (RBC) [Ratio] 13.7 % Normal 11.5-15.0 [place] Comment on above: Performed By: #### C BCDIF, BMP ####[place] [address] [address] [place] [phone] Hematocrit (Bld) [Volume fraction] 39.9 % Normal 39.0-51.0 [place] Comment on above: Performed By: #### C BCDIF, BMP ####[place] [address], [place] [phone] Hemoglobin (Bld) [Mass/Vol] 13.3 g/dL Normal 13.0-17.0 [place] Comment on above: Performed By: #### C BCDIF, BMP ####[place] [address]Sc[place], [place] [phone] Lymphocytes (Bld) [#/Vol] 1.25 10*3/uL Normal 1.00-4.00 [place] Comment on above: Performed By: #### C BCDIF, BMP ####[place] [address], [place] [phone] Lymphocytes/100 WBC (Bld) 10.2 % Normal [place] Comment on above: Performed By: #### C BCDIF, BMP ####[place] [address], [place] [phone] MCH (RBC) [Entitic mass] 29.3 pG Normal 26.0-34.0 [place] Comment on above: Performed By: #### C BCDIF, BMP ####[place] [address], [place] [phone] MCHC (RBC) [Mass/Vol] 33.3 g/dL Normal 30.5-36.0 [facility] Comment on above: Performed By: #### C BCDIF, BMP ####[place] [address]levelSc[place], [place] [phone] MCV (RBC) [Entitic vol] 87.9 fL Normal 80.0-100.0 [place] Comment on above: Performed By: #### C BCDIF, BMP ####[place] [address]ClevelSc[place], [place] [phone] Monocytes/100 WBC (Bld) 9.1 % Normal [place] Comment on above: Performed By: #### C BCDIF, BMP ####[place] [address] [place] [address]ClevelSc[place], [place] [phone] Neutrophils/100 WBC (Bld) 78.4 % Normal [place] Comment on above: Performed By: #### C BCDIF, BMP ####[facility], [place] [phone] NRBCs 0.0 /100 WBC Normal 0 [place] Comment on above: Performed By: #### C BCDIF, BMP ####[facility], [place] [phone] Platelet mean volume (Bld) [Entitic vol] 9.6 fL Normal 9.0-12.7 [place] Comment on above: Performed By: #### C BCKATLYNF, BMP ####[place] [address], [place] [phone] Platelets (Bld) [#/Vol] 241 10*3/uL Normal 150-400 [place] Comment on above: Performed By: #### C BCKATLYNF, BMP ####[place] [address], [place] [phone] RBC (Bld) [#/Vol] 4.54 10*6/uL Normal 4.20-6.00 [facility] Comment on above: Performed By: #### C BCKRYSTAL, BMP ####[place] [address] [place] [address], [place] [phone] WBC (Bld) [#/Vol] 12.28 10*3/uL High 3.70-11.00 [facility] Comment on above: Performed By: #### C BCDIF, BMP ####[facility], [place] [phone] PROGRESSon 12-25-2018 PROGRESS HNO ID: [id number] Author: Clarence Schmidt Service: Urology Author Type: Resident Type: Progress Notes Filed: 12/25/2018 9:45 AM Note Text: [facility] UROLOGY PROGRESS NOTE Name: Clarence Flores Bed: G090 [id number]/[id number] Date: December 25, 2018 After Hours [facility] [place] [facility] Service Pager: [phone] ASSESSMENT AND PLAN Clarence Flores is a [...] Imaging n/a Clarence Schmidt MD Personal Pager: [phone] For weekend or after hours issues [place] [phone] Normal [facility] PROGRESS HNO ID: [id number] Author: Kate Ruiz) Lion Service: Urology Author [...] PRN - sodium chloride 0.65 % 2 Stites (AYR, OCEAN) 2 Stites EACH NOSTRIL PRN - tamsulosin ER 0.4 [...] to discharge. Signature: Kate Seymour CNP Pager: [phone] Date of service: 12/25/2018 Normal [place] Basic Metabolic Panlon 12-24 Anion gap [Moles/Vol] 16 mmol/L Normal 9-18 [facility] Comment on above: Performed By: #### C KAREL BMP ####[address] [phone] Calcium [Mass/Vol] 8.7 mg/dL Normal 8.5-10.2 [facility] Comment on above: Performed By: #### C KAREL BMP ####[place] [address] [place], [place] [phone] Chloride [Moles/Vol] 104 mmol/L Normal 97-105 [facility] Comment on above: Performed By: #### C BCKRYSTAL BMP ####[facility] [place], [place] [phone] CO2 [Moles/Vol] 18 mmol/L Low 22-30 [place] Comment on above: Performed By: #### C KAREL, BMP ####[facility] [place], [place] [phone] Creatinine [Mass/Vol] 1.26 mg/dL High 0.73-1.22 [facility] Comment on above: Performed By: #### C KAREL NIRALI ####[facility] [place], [place] [phone] eGFR- Amer. >60 Normal [facility] Comment on above: Performed By: #### C KAREL, NIRALI ####[place] [address] [place], [place] [phone] GFR/1.73 sq M predicted among non-blacks MDRD (S/P/Bld) [Vol rate/Area] 59 . Normal [place] Comment on above: Result Comment: eGFR (Estimated [...] GFR. Performed By: #### C KAREL BMP ####[address] [phone] Glucose [Mass/Vol] 117 mg/dL High 74-99 [facility] Comment on above: Result Comment: The [place] Diabetes Association (ADA) provides guidance for cutoff [...] Standards of Medical Care in Diabetes 2016, [place] [employer]. Diabetes Care. 2016.39(Suppl 1). Performed By: #### C NIRALI VINSON ####[place] [address] [facility] [place] [phone] Potassium [Moles/Vol] 4.0 mmol/L Normal 3.7-5.1 [facility] Comment on above: Performed By: #### C BCDIF, BMP ####[place] [address], [place] [phone] Sodium [Moles/Vol] 138 mmol/L Normal 136-144 [facility] Comment on above: Performed By: #### C BCDIF, BMP ####[place] [address] [place] [phone] Urea nitrogen [Mass/Vol] 15 mg/dL Normal 9-24 [place] Comment on above: Performed By: #### C BCDIF, BMP ####[place] [phone] CBC and Differentialon 12-24 Abs Baso 0.06 k/uL Normal <0.11 [place] Comment on above: Performed By: #### C BCDIF, BMP ####[place] [address] [place] [address] [phone] Abs [place] 1.82 k/uL High <0.87 [place] Comment on above: Performed By: #### C BCDIF, BMP ####[place] [address] [place] [phone] Abs Neut 13.61 k/uL High 1.45-7.50 [place] Comment on above: Performed By: #### C BCDIF, BMP ####[place] [address] [place] [phone] Absolute nRBC <0.01 Normal <0.01 [place] Comment on above: Performed By: #### C BCDIF, BMP ####[place] [address] [place] [phone] Basophils/100 WBC (Bld) 0.4 % Normal [place] Comment on above: Performed By: #### C BCDIF, BMP ####[place] [address] [place] [phone] DTYPE Auto Diff Normal [place] Comment on above: Performed By: #### C BCDIF, BMP ####[place] [address] [place] [phone] Eosinophils (Bld) [#/Vol] 0.03 10*3/uL Normal <0.46 [place] Comment on above: Performed By: #### C BCKRYSTAL, BMP ####[place] [address] [place] [phone] Eosinophils/100 WBC (Bld) 0.2 % Normal [place] Comment on above: Performed By: #### C BCDIF, BMP ####[place] [address] [place] [phone] Erythrocyte distribution width (RBC) [Ratio] 13.7 % Normal 11.5-15.0 [place] Comment on above: Performed By: #### C BCDIF, BMP ####[place] [address] [place] [phone] Hematocrit (Bld) [Volume fraction] 43.5 % Normal 39.0-51.0 [place] Comment on above: Performed By: #### C BCDIF, BMP ####[place] [address] [place] [phone] Hemoglobin (Bld) [Mass/Vol] 14.5 g/dL Normal 13.0-17.0 [place] Comment on above: Performed By: #### C BCDIF, BMP ####[place] [address] [place] [phone] Lymphocytes (Bld) [#/Vol] 1.16 10*3/uL Normal 1.00-4.00 [place] Comment on above: Performed By: #### C BCDIF, BMP ####[facility]ClevelSc[place], [place] [phone] Lymphocytes/100 WBC (Bld) 7.0 % Normal [place] Comment on above: Performed By: #### C BCDIF, BMP ####[place] [address]ClevelT[address] [place] [phone] MCH (RBC) [Entitic mass] 29.3 pG Normal 26.0-34.0 [place] Comment on above: Performed By: #### C BCDIF, BMP ####[place] [address] [place] [phone] MCHC (RBC) [Mass/Vol] 33.3 g/dL Normal 30.5-36.0 [facility] Comment on above: Performed By: #### C BCDIF, BMP ####[place] [address] [place] [phone] MCV (RBC) [Entitic vol] 87.9 fL Normal 80.0-100.0 [place] Comment on above: Performed By: #### C BCDIF, BMP ####[place] [address], [place] [phone] Monocytes/100 WBC (Bld) 10.9 % Normal [place] Comment on above: Performed By: #### C BCDIF, BMP ####[place] [address] [place] [phone] Neutrophils/100 WBC (Bld) 81.5 % Normal [place] Comment on above: Result Comment: Diff erential confirmed by visual scan of peripheral blood smear slide. Performed By: #### C BCDIF, BMP ####[place] [address]ClevelT[address] [place] [phone] NRBCs 0.0 /100 WBC Normal 0 [place] Comment on above: Performed By: #### C BCDIF, BMP ####[facility] [place], [place] [phone] Platelet mean volume (Bld) [Entitic vol] 9.6 fL Normal 9.0-12.7 [place] Comment on above: Performed By: #### C BCDIF, BMP ####[facility], [place] [phone] Platelets (Bld) [#/Vol] 278 10*3/uL Normal 150-400 [place] Comment on above: Performed By: #### C BCDIF, BMP ####[place] [address] [place] [address], [place] [phone] RBC (Bld) [#/Vol] 4.95 10*6/uL Normal 4.20-6.00 [facility] Comment on above: Performed By: #### C BCDIF, BMP ####[place] [address] [place], [place] [phone] WBC (Bld) [#/Vol] 16.68 10*3/uL High 3.70-11.00 [facility] Comment on above: Performed By: #### C BCDIF, BMP ####[place] [address] [place], [place] [phone] PROGRESSon 12-24-2018 PROGRESS HNO ID: [id number] Author: Clarence (Breana) Roxana Service: Urology Author Type: Resident Type: Progress Notes Filed: 12/24/2018 10:00 AM Note Text: [facility] UROLOGY PROGRESS NOTE Name: Clarence Flores Bed: G090 035/[id number] Date: December 24, 2018 After Hours [facility] [place] [facility] Service Pager: [phone] ASSESSMENT AND PLAN Clarence Flores is a [...] Imaging n/a Clarence Schmidt MD Personal Pager: [phone] For weekend or after hours issues [place] [phone] Normal [place] Basic Metabolic Panlon 12-23 Anion gap [Moles/Vol] 14 mmol/L Normal 9-18 [facility] Comment on above: Performed By: #### C BCDIF, BMP ####[place] [address] [place] [phone] Calcium [Mass/Vol] 8.7 mg/dL Normal 8.5-10.2 [facility] Comment on above: Performed By: #### C BCDIF, BMP ####[place] [address] [place] [address], [place] [phone] Chloride [Moles/Vol] 102 mmol/L Normal 97-105 [facility] Comment on above: Performed By: #### C BCDIF, BMP ####[place] [address] [place] [phone] CO2 [Moles/Vol] 21 mmol/L Low 22-30 [place] Comment on above: Performed By: #### C BCDIF, BMP ####[place] [address], [place] [phone] Creatinine [Mass/Vol] 1.31 mg/dL High 0.73-1.22 [facility] Comment on above: Performed By: #### C BCDIF, BMP ####[place] [address], [place] [phone] eGFR- Amer. >60 Normal [facility] Comment on above: Performed By: #### C BCDIF, BMP ####[place] [address], [place] [phone] GFR/1.73 sq M predicted among non-blacks MDRD (S/P/Bld) [Vol rate/Area] 57 . Normal [place] Comment on above: Result Comment: eGFR (Estimated [...] GFR. Performed By: #### C NIRALI VINSON ####[facility] [place], [place] [phone] Glucose [Mass/Vol] 121 mg/dL High 74-99 [facility] Comment on above: Result Comment: The [place] Diabetes Association (ADA) provides guidance for cutoff [...] Standards of Medical Care in Diabetes 2016, [place] [employer]. Diabetes Care. 2016.39(Suppl 1). Performed By: #### C KAREL BMP ####[facility] [address] [place], [place] [phone] Potassium [Moles/Vol] 4.0 mmol/L Normal 3.7-5.1 [facility] Comment on above: Performed By: #### C KAREL BMP ####[facility] [address] [place], [place] [phone] Sodium [Moles/Vol] 137 mmol/L Normal 136-144 [facility] Comment on above: Performed By: #### C BCDIF, BMP ####[facility] [address] [place] [place], [place] [phone] Urea nitrogen [Mass/Vol] 11 mg/dL Normal 9-24 [place] Comment on above: Performed By: #### C BCDIF, BMP ####[facility] [address] [place], [place] [phone] CASE MGT INIT ASSESon 2018 CASE MGT INIT ASSES HNO ID: [id number] Author: Cornelius Diaz (Sw) Service: Care Management Author Type: Electric Razor Assembler Type: Care Mgt Initial Assessment Filed: 12/23/2018 4:27 PM Note Text: CARE MANAGEMENT: ASSESSMENT AND DISCHARGE PLAN SERVICE DATE: 12/23/2018 SERVICE TIME: 4:24 PM PRIMARY CARE PHYSICIAN: Shea Beach MD ADMISSION STATUS: Observation Needs Prior to Discharge: None;Ready for Discharge 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 No Advance Directive: Current Advance Directive: Health Care Power of Pile Driver Operator Helper In Chart: Yes Up To Date and [...] None Has the Patient Been in a Snf Facility in the Past 30 days? No SOCIAL: Living Arrangement: Home Lives With: Son Financial Resources: Employed: [employer] Primary Contact: Extended Emergency Contact Information Primary [...] 0 I feel financially burdened by my rac-bp-gyxyee expenses for my prescription medication: Disagree completely [...] 2018 TIME: 4:24 PM PAGER/CONTACT #: Normal [place] CBC and Differentialon 12-23 Abs Baso 0.03 k/uL Normal <0.11 [place] Comment on above: Performed By: #### C BCDIF, BMP ####[facility] [address] [place] [place], [place] [phone] Abs [place] 1.36 k/uL High <0.87 [place] Comment on above: Performed By: #### C BCDIF, BMP ####[facility] [address] [place] [place], [place] [phone] Abs Neut 16.73 k/uL High 1.45-7.50 [place] Comment on above: Performed By: #### C BCDIF, BMP ####[facility]ClevelT[address] [place]ille [phone] Absolute nRBC <0.01 Normal <0.01 [place] Comment on above: Performed By: #### C BCDIF, BMP ####[place] [address] [place] AveClevelT[place] [phone] Basophils/100 WBC (Bld) 0.2 % Normal [place] Comment on above: Performed By: #### C BCDIF, BMP ####[place] [address] [place] [phone] DTYPE Auto Diff Normal [place] Comment on above: Performed By: #### C BCDIF, BMP ####[place] [address] [place] [phone] Eosinophils (Bld) [#/Vol] 10*3/uL Normal <0.46 [place] Comment on above: Performed By: #### C BCDIF, BMP ####[place] [address] [place] [phone] Eosinophils/100 WBC (Bld) 0.0 % Normal [place] Comment on above: Performed By: #### C BCDIF, BMP ####[place] [address] [place] [phone] Erythrocyte distribution width (RBC) [Ratio] 13.3 % Normal 11.5-15.0 [place] Comment on above: Performed By: #### C BCDIF, BMP ####[place] [address] [place] AveClevelT[place] [phone] Hematocrit (Bld) [Volume fraction] 46.4 % Normal 39.0-51.0 [place] Comment on above: Performed By: #### C BCDIF, BMP ####[place] [address] [place] [address]ClevelT[place] [phone] Hemoglobin (Bld) [Mass/Vol] 15.3 g/dL Normal 13.0-17.0 [place] Comment on above: Performed By: #### C BCDIF, BMP ####[place] [address], [place] [phone] Lymphocytes (Bld) [#/Vol] 0.94 10*3/uL Low 1.00-4.00 [place] Comment on above: Performed By: #### C BCDIF, BMP ####[place] [address], [place] [phone] Lymphocytes/100 WBC (Bld) 4.9 % Normal [place] Comment on above: Performed By: #### C BCDIF, BMP ####[place] [address], [place] [phone] MCH (RBC) [Entitic mass] 28.2 pG Normal 26.0-34.0 [place] Comment on above: Performed By: #### C BCDIF, BMP ####[place] [address] [place] [phone] MCHC (RBC) [Mass/Vol] 33.0 g/dL Normal 30.5-36.0 [facility] Comment on above: Performed By: #### C BCDIF, BMP ####[place] [address], [place] [phone] MCV (RBC) [Entitic vol] 85.5 fL Normal 80.0-100.0 [place] Comment on above: Performed By: #### C BCDIF, BMP ####[place] [address], [place] [phone] Monocytes/100 WBC (Bld) 7.1 % Normal [place] Comment on above: Performed By: #### C BCDIF, BMP ####[place] [address] [place], [place] [phone] Neutrophils/100 WBC (Bld) 87.8 % Normal [place] Comment on above: Performed By: #### Pablo VINSON, BMP ####[place] [address] [place], [place] [phone] NRBCs 0.0 /100 WBC Normal 0 [place] Comment on above: Performed By: #### Pablo VINSON, BMP ####[place] [address], [place] [phone] Platelet mean volume (Bld) [Entitic vol] 9.5 fL Normal 9.0-12.7 [place] Comment on above: Performed By: #### Pablo VINSON, BMP ####[address] [phone] Platelets (Bld) [#/Vol] 315 10*3/uL Normal 150-400 [place] Comment on above: Performed By: #### Pablo VINSON, BMP ####[address] [phone] RBC (Bld) [#/Vol] 5.43 10*6/uL Normal 4.20-6.00 [facility] Comment on above: Performed By: #### Pablo VINSON, BMP ####[address] [place], [place] [phone] WBC (Bld) [#/Vol] 19.06 10*3/uL High 3.70-11.00 [facility] Comment on above: Performed By: #### Pablo VINSON, BMP ####[place] [address] [place], [place] [phone] PROGRESSon 12-23-2018 PROGRESS HNO ID: [id number] Author: Clarence Schmidt Service: Urology Author Type: Resident Type: Progress Notes Filed: 12/23/2018 8:40 AM Note Text: [facility] UROLOGY PROGRESS NOTE Name: Clarence Flores Bed: G090 [id number]/[id number] Date: December 23, 2018 After Hours [facility] [place] [facility] Service Pager: [phone] ASSESSMENT AND PLAN Clarence Flores is a [...] Imaging n/a Clarence Schmidt MD Personal Pager: [phone] For weekend or after hours issues [place] [phone] Normal [place] ANES Ferny 12-22-2018 ANES POST HNO ID: [id number] Author: Salvatore Lacey Service: Anesthesiology Author Type: [...] 22, 2018 TIME: 12:16 PM PAGER/CONTACT #: [phone] Normal [place] Basic Metabolic Panlon 12-22 Anion gap [Moles/Vol] 10 mmol/L Normal 9-18 [facility] Comment on above: Performed By: #### C BCDIF, BMP ####[facility], [place] [phone] Calcium [Mass/Vol] 8.0 mg/dL Low 8.5-10.2 [facility] Comment on above: Performed By: #### C BCDIF, BMP ####[place] [address], [place] [phone] Chloride [Moles/Vol] 105 mmol/L Normal 97-105 [facility] Comment on above: Performed By: #### C BCDIF, BMP ####[facility] [place] [phone] CO2 [Moles/Vol] 23 mmol/L Normal 22-30 [place] Comment on above: Performed By: #### C BCDIF, BMP ####[facility], [place] [phone] Creatinine [Mass/Vol] 1.17 mg/dL Normal 0.73-1.22 [facility] Comment on above: Performed By: #### C BCDIF, BMP ####[facility], [place] [phone] eGFR- Amer. >60 Normal [facility] Comment on above: Performed By: #### C BCDIF, BMP ####[facility], [place] [phone] GFR/1.73 sq M predicted among non-blacks MDRD (S/P/Bld) [Vol rate/Area] mL/min/{1.73_m2} Normal [place] Comment on above: Result Comment: eGFR (Estimated [...] GFR. Performed By: #### C NIRALI VINSON ####[facility] [place], [place] [phone] Glucose [Mass/Vol] 168 mg/dL High 74-99 [facility] Comment on above: Result Comment: The [place] Diabetes Association (ADA) provides guidance for cutoff [...] Standards of Medical Care in Diabetes 2016, [place] [employer]. Diabetes Care. 2016.39(Suppl 1). Performed By: #### C BCDIF, BMP ####[facility] [place], [place] [phone] Potassium [Moles/Vol] 5.5 mmol/L High 3.7-5.1 [facility] Comment on above: Result Comment: Resu lts may be falsely increased due to interference by hemolysis. Suggest reorder as clinically indicated. Performed By: #### C BCKRYSTAL, BMP ####[facility] [place], [place] [phone] Sodium [Moles/Vol] 138 mmol/L Normal 136-144 [facility] Comment on above: Performed By: #### C BCDIF, BMP ####[place] [address] [place], [place] [phone] Urea nitrogen [Mass/Vol] 9 mg/dL Normal 9-24 [place] Comment on above: Performed By: #### C BCDIF, BMP ####[place] [phone] CBC and Differentialon 12-22 Abs Baso 0.07 k/uL Normal <0.11 [place] Comment on above: Performed By: #### C BCDIF, BMP ####[address] [phone] Abs [place] 0.89 k/uL High <0.87 [place] Comment on above: Performed By: #### C BCDIF, BMP ####[place] [phone] Abs Neut 13.53 k/uL High 1.45-7.50 [place] Comment on above: Performed By: #### C BCDIF, BMP ####[address] [place], [place] [phone] Absolute nRBC <0.01 Normal <0.01 [place] Comment on above: Performed By: #### C BCDIF, BMP ####[address] [phone] Basophils/100 WBC (Bld) 0.4 % Normal [place] Comment on above: Performed By: #### C BCDIF, BMP ####[address] [place], [place] [phone] DTYPE Auto Diff Normal [place] Comment on above: Performed By: #### C BCDIF, BMP ####[facility]levelT[address] [place]ille [phone] Eosinophils (Bld) [#/Vol] 0.06 10*3/uL Normal <0.46 [place] Comment on above: Performed By: #### C BCDIF, BMP ####[place] [address] [address], [place] [phone] Eosinophils/100 WBC (Bld) 0.4 % Normal [place] Comment on above: Performed By: #### C BCDIF, BMP ####[place] [address] [address]level[address] [place] [phone] Erythrocyte distribution width (RBC) [Ratio] 13.6 % Normal 11.5-15.0 [place] Comment on above: Performed By: #### C BCDIF, BMP ####[place] [address] [address] [place] [phone] Hematocrit (Bld) [Volume fraction] 46.4 % Normal 39.0-51.0 [place] Comment on above: Performed By: #### C BCDIF, BMP ####[place] [address]levelSc[place], [place] [phone] Hemoglobin (Bld) [Mass/Vol] 15.4 g/dL Normal 13.0-17.0 [place] Comment on above: Performed By: #### C BCDIF, BMP ####[place] [address] [place] [phone] Lymphocytes (Bld) [#/Vol] 1.09 10*3/uL Normal 1.00-4.00 [place] Comment on above: Performed By: #### C BCDIF, BMP ####[place] [address]levelSc[place], [place] [phone] Lymphocytes/100 WBC (Bld) 7.0 % Normal [place] Comment on above: Performed By: #### C BCDIF, BMP ####[place] [address], [place] [phone] MCH (RBC) [Entitic mass] 28.7 pG Normal 26.0-34.0 [place] Comment on above: Performed By: #### C BCDIF, BMP ####[place] [address], [place] [phone] MCHC (RBC) [Mass/Vol] 33.2 g/dL Normal 30.5-36.0 [facility] Comment on above: Performed By: #### C BCDIF, BMP ####[place] [address] [address] [place] [phone] MCV (RBC) [Entitic vol] 86.4 fL Normal 80.0-100.0 [place] Comment on above: Performed By: #### C BCDIF, BMP ####[place] [address] [address] [place] [phone] Monocytes/100 WBC (Bld) 5.7 % Normal [place] Comment on above: Performed By: #### C BCDIF, BMP ####[place] [address] [address] [place] [phone] Neutrophils/100 WBC (Bld) 86.5 % Normal [place] Comment on above: Performed By: #### C BCDIF, BMP ####[place] [address] [address], [place] [phone] NRBCs 0.0 /100 WBC Normal 0 [place] Comment on above: Performed By: #### C BCDIF, BMP ####[place] [address], [place] [phone] Platelet mean volume (Bld) [Entitic vol] 9.8 fL Normal 9.0-12.7 [place] Comment on above: Performed By: #### C BCDIF, BMP ####[place] [address] [place], [place] [phone] Platelets (Bld) [#/Vol] 263 10*3/uL Normal 150-400 [place] Comment on above: Performed By: #### C BCDIF, BMP ####[facility] [place], [place] [phone] RBC (Bld) [#/Vol] 5.37 10*6/uL Normal 4.20-6.00 [facility] Comment on above: Performed By: #### C BCDIF, BMP ####[facility] [place], [place] [phone] WBC (Bld) [#/Vol] 15.64 10*3/uL High 3.70-11.00 [facility] Comment on above: Performed By: #### C BCDIF, BMP ####[facility] [place], [place] [phone] CNCOon 12-22-2018 CNCO Letter Text [facility] NURSING PROGon 12-22-2018 NURSING PROG HNO ID: [id number] Author: Yoly De Jesus RN Service: Nursing [...] MSN In Department: HOSP MAIN SDS Normal [place] OPERATIVE NOon 12-22-2018 OPERATIVE NO HNO ID: [id number] Author: Cyrus Justice Service: Urology Author Type: Resident Type: Operative Report Filed: 12/22/2018 11:07 AM Note Text: -- Attestation signed by Maico Ang at 12/22/2018 11:58 AM . -- OPERATIVE/PROCEDURE REPORT LOG ID: [id number] Surgery/Procedure Date: 12/22/2018 Incision/Procedure Start Time: 8:19 AM Incision Close/Procedure End Time: 10:48 AM Surgeon(s)/Proceduralist(s ) and Etl Database Developer(s): Surgeon(s) and Role: * Maico Ang - [...] robotic ports and one 12-mm airseal assistant auditor port were placed. The robot was then [...] vision. We then extended our 12mm assistant auditor port site cephalad and extracted our specimen through this. We then mobilized his umbilical hernia sac. Herniated mesentery was delivered out of the hernia sac and sac dissected completely free off the skin. The fascia was then closed using interrupted zcwwgo-nw-[id number] 0-prolene sutures. 3-0 vicryl was used to [...] Drains: 10-flat SHELBY drain and jacques catheter (18-hebrew coude with 10cc balloon) Complications: None Accidental [...] 22, 2018 TIME: 10:48 AM PAGER/CONTACT #: [phone] [facility] PROGRESSon 12-22-2018 PROGRESS HNO ID: [id number] Author: Clarence Schmidt Service: Urology Author Type: Resident Type: Progress Notes Filed: 12/22/2018 4:14 PM Note Text: [facility] UROLOGY PROGRESS NOTE Name: Clarence Flores Bed: G090 [id number]/[id number] Date: December 22, 2018 After Hours [facility] [place] [facility] Service Pager: [phone] ASSESSMENT AND PLAN Clarence Flores is a [...] Imaging n/a Clarence Schmidt MD Personal Pager: [phone] For weekend or after hours issues [place] [phone] Normal [place] PROGRESS HNO ID: [id number] Author: Valeria (Rn) FIORELLA Moreno Service: ? Author Type: Registered Nurse Type: Progress Notes Filed: 12/22/2018 2:26 PM Note Text: Admission/Transfer Note PATIENT NAME: Clarence Flores Patient admitted from PACU via stretcher in stable condition. Actions taken: Patient oriented to room, call light function, prescribed activities, Patient rights and Quiet at night. This note was completed by: Valeria Moreno RN Normal [place] Potassiumon 12-22-2018 Potassium [Moles/Vol] 4.2 mmol/L Normal 3.7-5.1 [facility] Comment on above: Performed By: #### K 1 ####[facility] [address] [place], [place] [phone] SURGICAL PATHOLOGYon 019 SURGICAL PATHOLOGY Specimen originated from [facility] Specimen #: [id number] Submitting Physician: MAICO ANG ([id number]) FINAL DIAGNOSIS [...] Pathologic Findings in Nonneoplastic Kidney: Insufficient tissue Residential Plumber Tumor Block: Specify: A1 ---- Meño Hamilton [...] appear to extend beyond the capsular surface. Residential Plumber sections are submitted as follows: A1-A3 mass with renal sinus/parenchymal margin, A4-A5 mass with capsular surface. WE/glw 12/22/2018 B. Received fresh labeled hernia sac is a segment of cote pink fibromembranous soft tissue measuring 4.7 x 1.9 x 0.6 cm. No nodularity or induration is identified. Residential Plumber sections are submitted in formalin in cassette B1. VINICIO/rw 12/22/2018 [place] [address] Date of Report: 12/24/2018 Date of Procedure: 12/22/2018 Date of Receipt: 12/22/2018 Submitted by: MAICO ANG ([id number]) Location: 0 Diagnostic interpretation performed at [place] [address]. CLIA Number: [id number] Normal [place] APTTon 12-17-2018 aPTT Coag (Bld) [Time] 28.8 s Normal 23.0-32.4 [facility] Comment on above: Result Comment: Unfr [...] laboratory APTT reagent in use throughout the [facility]. Performed By: #### P T, PTT, CBC, CMP #### [facility] [place], [place] [address] CBCon 12-17-2018 Absolute nRBC <0.01 Normal <0.01 [place] Comment on above: Performed By: #### P T, PTT, CBC, CMP #### [facility] [place], [place] [address] Erythrocyte distribution width (RBC) [Ratio] 13.2 % Normal 11.5-15.0 [place] Comment on above: Performed By: #### P T, PTT, CBC, CMP #### [place] [address] Hematocrit (Bld) [Volume fraction] 46.7 % Normal 39.0-51.0 [place] Comment on above: Performed By: #### P T, PTT, CBC, CMP #### [place] [address] Hemoglobin (Bld) [Mass/Vol] 15.7 g/dL Normal 13.0-17.0 [place] Comment on above: Performed By: #### P T, PTT, CBC, CMP #### [place] [address] MCH (RBC) [Entitic mass] 28.6 pG Normal 26.0-34.0 [place] Comment on above: Performed By: #### P T, PTT, CBC, CMP #### [place] [address] MCHC (RBC) [Mass/Vol] 33.6 g/dL Normal 30.5-36.0 [facility] Comment on above: Performed By: #### P T, PTT, CBC, CMP #### [place] [address] MCV (RBC) [Entitic vol] 85.2 fL Normal 80.0-100.0 [place] Comment on above: Performed By: #### P T, PTT, CBC, CMP #### [place] [address] Platelet mean volume (Bld) [Entitic vol] 9.9 fL Normal 9.0-12.7 [place] Comment on above: Performed By: #### P T, PTT, CBC, CMP #### [place] [address] Platelets (Bld) [#/Vol] 322 10*3/uL Normal 150-400 [place] Comment on above: Performed By: #### P T, PTT, CBC, CMP #### [facility] [address] [place], [place] [address] RBC (Bld) [#/Vol] 5.48 10*6/uL Normal 4.20-6.00 [facility] Comment on above: Performed By: #### P T, PTT, CBC, CMP #### [facility] [address] [place], [place] [phone] WBC (Bld) [#/Vol] 9.33 10*3/uL Normal 3.70-11.00 [facility] Comment on above: Performed By: #### P T, PTT, CBC, CMP #### [facility] [address] [place], [place] [address] CNOVon 12-17-2018 CNOV Office Visit (PSSCMN ) -- CLARENCE FLORES ([id number]) 1960 M Date Time Provider Department 12/17/18 12:00 PM [facility] PSSCMN During your visit today, we [...] PAGER/CONTACT #: addendum labs and ekg to [facility]; Aimee Romero RN Lab Value Units Date [...] 8:41:34 AM ? Referring Provider: MAICO ANG [[id number]] Allergies As of Date: 12/17/2018 Noted Allergy [...] Chart Close Cosign Accepted by: PERCY BERTRAND MD[[id number]] Chart Close Cosign Accepted on: FriDec 17, 2018 12:54 PM Normal [place] CNOV Office Visit (UROLMN ) -- CLARENCE FLORES ([id number]) 1960 M Date Time Provider Department 12/17/18 9:15 AM JESSICA HERRERA ([employer] MANAGER) UROLMN During your visit today, we recorded the following information about you: Pulse Blood pressure Weight Height 64/minute 169/96 119.8 kg 1.676 m Jessica Herrera CNP 12/17/2018 9:57 AM Signed UROLOGY SURGICAL HANDP SERVICE DATE: 12/17/2018 REFERRING PROVIDER: Maico Ang MD [address] [facility] [address] PCP: Shea Beach MD GENDER: SUBJECTIVE CHIEF [...] or problems. No history of angina, CHF, [place], cardiac surgery of stents. +history of HTN [...] problems. Neurologic: No history of TIA's, stroke, LINER WORKER tumor, impaired sensorium, hemiplegia, paraplegia or quadriplegia. [...] 16, 2018 TIME: 12:38 PM PAGER/CONTACT #: [facility] PRE-OP NOTE Clarence Flores is a 58 year old male. Pre-op Date: December 16, 2018 Date of Procedure: 12/22/2018 Procedure/Surgery: Robotic L partial Nx Diagnosis: L renal mass Primary Surgeon: MD Alile, [facility] Healthquest Score: tbd BP 169/96 (BP Site: [...] CNP Electronically signed Referring Provider: MAICO ANG [[id number]] Allergies As of Date: 12/17/2018 Noted Allergy [...] by JESSICA HERRERA CNP on 12/17/18 Normal [place] Comp Metabolic Panelon 12-17 Albumin [Mass/Vol] 4.3 g/dL Normal 3.9-4.9 [facility] Comment on above: Performed By: #### P T, PTT, CBC, CMP ####[place] [phone] ALP [Catalytic activity/Vol] 56 U/L Normal 38-113 [place] Comment on above: Performed By: #### P T, PTT, CBC, CMP ####[address] [phone] ALT [Catalytic activity/Vol] 22 U/L Normal 10-54 [place] Comment on above: Performed By: #### P T, PTT, CBC, CMP ####[address] [phone] Anion gap [Moles/Vol] 13 mmol/L Normal 9-18 [facility] Comment on above: Performed By: #### P T, PTT, CBC, CMP ####[address] [phone] AST [Catalytic activity/Vol] 25 U/L Normal 14-40 [place] Comment on above: Performed By: #### P T, PTT, CBC, CMP ####[address] [phone] Bilirubin [Mass/Vol] 0.4 mg/dL Normal 0.2-1.3 [facility] Comment on above: Performed By: #### P T, PTT, CBC, CMP ####[place] [address] [address], [place] [phone] Calcium [Mass/Vol] 9.3 mg/dL Normal 8.5-10.2 [facility] Comment on above: Performed By: #### P T, PTT, CBC, CMP ####[place] [address] [address] [place], [place] [phone] Chloride [Moles/Vol] 105 mmol/L Normal 97-105 [facility] Comment on above: Performed By: #### P T, PTT, CBC, CMP ####[place] [address] [place] [phone] CO2 [Moles/Vol] 21 mmol/L Low 22-30 [place] Comment on above: Performed By: #### P T, PTT, CBC, CMP ####[place] [address] [address] [place], [place] [phone] Creatinine [Mass/Vol] 1.20 mg/dL Normal 0.73-1.22 [facility] Comment on above: Performed By: #### P T, PTT, CBC, CMP ####[place] [address] [address] [place], [place] [phone] eGFR- Amer. >60 Normal [facility] Comment on above: Performed By: #### P T, PTT, CBC, CMP ####[place] [address] [address] [place], [place] [phone] GFR/1.73 sq M predicted among non-blacks MDRD (S/P/Bld) [Vol rate/Area] mL/min/{1.73_m2} Normal [place] Comment on above: Result Comment: eGFR (Estimated [...] By: #### P T, PTT, CBC, CMP ####[facility] [place], [place] [phone] Glucose [Mass/Vol] 105 mg/dL High 74-99 [facility] Comment on above: Result Comment: The [place] Diabetes Association (ADA) provides guidance for cutoff [...] Standards of Medical Care in Diabetes 2016, [place] [employer]. Diabetes Care. 2016.39(Suppl 1). Performed By: #### P T, PTT, CBC, CMP ####[address] [phone] Potassium [Moles/Vol] 4.0 mmol/L Normal 3.7-5.1 [facility] Comment on above: Performed By: #### P T, PTT, CBC, CMP ####[facility] [place], [place] [phone] Protein [Mass/Vol] 7.1 g/dL Normal 6.3-8.0 [facility] Comment on above: Performed By: #### P T, PTT, CBC, CMP ####[place] [address] [place], [place] [phone] Sodium [Moles/Vol] 139 mmol/L Normal 136-144 [facility] Comment on above: Performed By: #### P T, PTT, CBC, CMP ####[facility] [place], [place] [phone] Urea nitrogen [Mass/Vol] 13 mg/dL Normal 9-24 [place] Comment on above: Performed By: #### P T, PTT, CBC, CMP ####[facility] [address] [place], [place] [phone] Confirm Blood Typeon 019 ABO/RH(D) Positive Normal [place] Comment on above: Performed By: #### C ONABO ####[facility] [address] [place], [place] [phone] ECG COMPLETEon 12-17-2018 ECG COMPLETE NAME : CLARENCE FLORES PID : [id number] : 1960 Gender : Male Race : ORD : [id number] Procedure Date : Dec 17 2018 10:39:05 Edit Date : Dec 18 2018 08:41:40 Diagnosis:NORMAL SINUS RHYTHM NORMAL ECG Confirmed by TARIQ DRUMMOND MD ([id number]) on 12/18/2018 8:41:34 AM Ventricular Rate : 63 BPM Atrial Rate : 63 BPM P-R Interval : 160 ms QRS Duration : 94 ms Q-T Interval : 420 ms QTC Calculation(Bazett) : 429 ms P Hills : 36 degrees R Hills : 69 degrees T Hills : 80 degrees Test Reason : Location : 119 : A17 A17 Overread By : TARIQ DRUMMOND MD Edited By : TARIQ DRUMMOND MD Referred By : MAICO ANG Acquired by : PARIS ESTEVES [place] PROGRESSon 12-17-2018 PROGRESS HNO ID: [id number] Author: Aimee Richards (Rn) Linda Service: ? [...] PAGER/CONTACT #: addendum labs and ekg to [facility]; Aimee Romero RN Lab Value Units Date [...] (65) on 12/18/2018 8:41:34 AM ? Normal [place] Protimeon 12-17-2018 PT Coag (PPP) [Time] 10.8 s Normal 9.7-13.0 [facility] Comment on above: Performed By: #### P T, PTT, CBC, CMP #### [facility] [address] [place], [place] [address] PT Coag (PPP) [Time] 1.0 s Normal 0.9-1.3 [facility] Comment on above: Result Comment: Tyra min K Antagonist (VKA) Therapeutic Range: INR 2 to 3 (Target INR of 2.5) Note: For patients treated with VKA drugs, such as warfarin, the [place] [employer] 2012 Guideline recommends [...] Chest 2012, 141:7S-47S Pablito RA, et al. [facility] 2017, 70: 252-289 Performed By: #### P T, PTT, CBC, CMP #### [facility] [address] [place], [place] [address] Type and SCR (30D)on 019 ABO/RH(D) Positive Normal [place] Comment on above: Performed By: #### T SCR30 ####[facility] [address] [place], [place] [phone] CNPTOUTREADonnan 12-16-2018 CNPTOUTREACH Patient Outreach (UR OLMN) -- CLARENCE FLORES ([id number]) 1960 M Date Time Provider Department 12/16/18 JESSICA HERRERA) UROLMN During your visit today, we recorded the following information about you: Allergies As of Date: 12/16/2018 Noted Allergy Reaction NITROGLYCERIN 11/26/2018 14 - Other: See Comments Date Reviewed: 11/26/2018 Reviewed by: Monica Shah - Fully Assessed Visit Diagnosis:Screening for genitourinary condition [Z13.89] Order(s):UA CHEMSTRIP ONLY [SQUA] Order #: [id number] Prescriptions as of 12/16/2018 Sig: OXYCODONE 5 [...] Status:Closed by EPIC, PRODUSER on 12/31/18 Normal [place] HISTORY PHYSICALon HISTORY PHYSICAL HNO ID: [id number] Author: Jessica Herrera Service: ? Author Type: Nurse Practitioner Type: HANDP Filed: 12/17/2018 9:57 AM Note Text: UROLOGY SURGICAL HANDP SERVICE DATE: 12/17/2018 REFERRING PROVIDER: Maico Ang MD [address] [facility] [address] PCP: Shea Beach MD GENDER: SUBJECTIVE CHIEF [...] or problems. No history of angina, CHF, [place], cardiac surgery of stents. +history of HTN [...] problems. Neurologic: No history of TIA's, stroke, LINER WORKER tumor, impaired sensorium, hemiplegia, paraplegia or quadriplegia. [...] 16, 2018 TIME: 12:38 PM PAGER/CONTACT #: [facility] PRE-OP NOTE Clarence Flores is a 58 year old male. Pre-op Date: December 16, 2018 Date of Procedure: 12/22/2018 Procedure/Surgery: Robotic L partial Nx Diagnosis: L renal mass Primary Surgeon: MD Allie, [facility] Healthquest Score: tbd BP 169/96 (BP Site: [...] EKG. Jessica Herrera CNP Electronically signed Normal [place] Ramses 11-26-2018 CNOV Office Visit (UROLMN ) -- CLARENCE FLORES ([id number]) 1960 M Date Time Provider Department 11/26/18 9:00 AM MAICO ANG During your visit today, we recorded the following information about you: Pulse Blood pressure Weight Height 67/minute 165/98 118 kg 1.676 m Maico Ang MD 11/29/2018 6:01 AM Signed [facility] NEW PATIENT HISTORY AND PHYSICAL EXAM PATIENT INFO: Clarence Flores 58 year old REFERRING M.D.: Damien Sales MD [address] [facility] [address] CHIEF COMPLAINT: left renal mass 58 y/o [...] file Gets together: Not on file Attends oriental orthodox service: Not on file Active member of [...] PLAN: Per Staff Benton Dillon PA-C Pager [phone] Office [phone] I saw and evaluated the patient; the history and exam were reviewed with the PA/resident and confirmed by me; and the plan is outlined below. healthy 58 yr obese male with L lower pole [address] reviewed DW pt and family rec attempt RPNx they agree to proceed, will schedule Maico Ang MD Referring Provider: DAMIEN SALES [[id number]] Allergies As of Date: 11/26/2018 Noted Allergy [...] Status:Closed by MAICO ANG MD on 11/29/18 [facility] 11-26-2018 [facility] Patient:Clarence lFores MRN: Height:5' 6 (1.676 m) Weight:264 lb [...] 46.7 % 12/17/2018 51.0 39.0 Progress Notes ([facility]): Aimee Romero RN 12/21/2018 9:03 AM [...] PAGER/CONTACT #: addendum labs and ekg to [facility]; Aimee Romero RN Lab Value Units Date [...] Maico Ang MD 11/29/2018 6:01 AM Signed [facility] NEW PATIENT HISTORY AND PHYSICAL EXAM PATIENT INFO: Clarence Flores 58 year old REFERRING M.D.: Damien Sales MD [address] [place] [address] CHIEF COMPLAINT: left renal mass 58 y/o [...] file Gets together: Not on file Attends oriental orthodox service: Not on file Active member of [...] PLAN: Per Staff Benton Dillon PA-C Pager [phone] Office [phone] I saw and evaluated the patient; the history and exam were reviewed with the PA/resident and confirmed by me; and the plan is outlined below. healthy 58 yr obese male with L lower pole [address] reviewed DW pt and family rec attempt RPNx they agree to proceed, will schedule Maico Ang MD Previous Version Normal [place] PROGRESSon 11-26-2018 PROGRESS HNO ID: [id number] Author: Maico Ang Service: ? Author Type: Physician Type: Progress Notes Filed: 11/29/2018 6:01 AM Note Text: [facility] UROLOGICAL [place] NEW PATIENT HISTORY AND PHYSICAL EXAM PATIENT INFO: Clarence Flores 58 year old REFERRING M.D.: Damien Sales MD [address] [place] [address] CHIEF COMPLAINT: left renal mass 58 y/o [...] file Gets together: Not on file Attends oriental orthodox service: Not on file Active member of [...] PLAN: Per Staff Benton Dillon PA-C Pager [phone] Office [phone] I saw and evaluated the patient; the history and exam were reviewed with the PA/resident and confirmed by me; and the plan is outlined below. healthy 58 yr obese male with L lower pole [address] reviewed DW pt and family rec attempt RPNx they agree to proceed, will schedule Maico Ang MD [facility] [place] OT-CT CHEST W CON IMPORTon 1 OT-CT CHEST W CON IMPORT Images were obtained outside of [facility] [id number] [place] OT-CT ABDOMEN WO/W CON IMPOR Ton 11-05-2018 OT-CT ABDOMEN WO/W CON IMPORT Images were obtained outside of [facility] [id number] [place] CT-CT ABD/PELVIS WO CON IMPO RTon 10-05-2018 CT-CT ABD/PELVIS WO CON IMPORT Images were obtained outside of [facility] [id number] [place] Vital Signs Date Time Vital Sign Value Performing Clinician Facility 07-14-2023 14:01-0400 Blood Pressure Location Tariq GORDON [facility] [place] 07-14-2023 14:01-0400 Diastolic blood pressure 72 mm[Hg] Tariq GORDON [facility] [place] 07-14-2023 14:01-0400 Heart rate 74 /min Tariq GORDON [facility] [place] 07-14-2023 14:01-0400 Respiratory rate 16 /min Tariq GORDON [facility] [place] 07-14-2023 14:01-0400 Systolic blood pressure 112 mm[Hg] Tariq GORDON [facility] [place] 04-23-2023 15:37-0400 Body mass index (BMI) [Ratio] 40.84 kg/m2 Andra Ramirez APRN-[employer] MANAGER Work Phone: [facility] 04-23-2023 15:37-0400 Body weight 114.76 kg Andra Ramirez PHOTO TECH-[employer]ENT[employer] MANAGER Work Phone: [facility] 04-23-2023 15:37-0400 Diastolic blood pressure 70 mm[Hg] Andra Ramirez PHOTO TECH-[employer] RENTALS MANAGER Work Phone: [facility] 04-23-2023 15:37-0400 Heart rate 82 /min Andra Ramirez PHOTO TECH-[employer]ENT[employer] MANAGER Work Phone: [facility] 04-23-2023 15:37-0400 Systolic blood pressure 112 mm[Hg] Andra Ramirez PHOTO TECH-[employer] RENT[employer] MANAGER Work Phone: [facility] 01-22-2023 15:36-0500 Body height 167.6 cm Andra Ramirez PHOTO TECH-[employer]ES [employer] RENTALS MANAGER Work Phone: [facility] 01-22-2023 15:36-0500 Body mass index (BMI) [Ratio] 44.87 kg/m2 Andra Ramirez PHOTO TECH-LAND [employer]ES [employer] RENTALS MANAGER Work Phone: [facility] 01-22-2023 15:36-0500 Body weight 126.1 kg Andra Ramirez PHOTO TECH-[employer] RENTALS MANAGER Work Phone: [facility] 01-22-2023 15:36-0500 Diastolic blood pressure 98 mm[Hg] Andra Ramirez PHOTO TECH-[employer] RENT[employer] MANAGER Work Phone: [facility] 01-22-2023 15:36-0500 Heart rate 76 /min Andra Ramirez PHOTO TECH-[employer] MANAGER Work Phone: [facility] 01-22-2023 15:36-0500 Systolic blood pressure 168 mm[Hg] Andra Ramirez PHOTO TECH-[employer] RENTALS MANAGER Work Phone: [facility] 2022 04:47-0400 Diastolic blood pressure 67 mm[Hg] MD Shea Beach Work Phone: [facility] 2022 04:47-0400 Heart rate 72 /min MD Shea Beach Work Phone: [facility] 2022 04:47-0400 Respiratory rate 20 /min MD Shea Beach Work Phone: [facility] 2022 04:47-0400 SaO2% (BldA) [Mass fraction] 96 % MD Shea Beach Work Phone: [facility] 2022 04:47-0400 Systolic blood pressure 147 mm[Hg] MD Shea Beach Work Phone: [facility] 11-09-2022 22:35-0400 Body height 167.64 cm MD Shea Beach Work Phone: [facility] 11-09-2022 22:35-0400 Body temperature 98 [degF] MD Shea Beach Work Phone: [facility] 11-09-2022 22:35-0400 Body weight 129.8 kg MD Shea Beach Work Phone: [facility] Encounters Encounter Date Encounter Type Care Provider Facility Start: 08-28-2023 End: 08-30-2023 ambulatory CUCA PAULINO [facility] Start: 08-21-2023 End: 08-23-2023 ambulatory SHEA BEACH [facility] Start: 08-04-2023 End: 08-04-2023 ambulatory Tariq R NILL Facility:[facility] Start: 08-04-2023 End: 08-04-2023 Patient encounter procedure Tariq R NILL [facility] Start: 07-14-2023 End: 07-14-2023 ambulatory Tariq R NILL Facility:[facility] Start: 07-14-2023 End: 07-14-2023 Patient encounter procedure Tariq R NILL [facility] [place] Start: 06-30-2023 ambulatory Tariq NILL Facility:[facility] Start: 06-27-2023 ambulatory Tariq NILL Facility:[facility] [place] Start: 04-23-2023 End: 04-23-2023 Office outpatient visit 10 minutes Andra Ramirez PHOTO TECH-[employer] RENT[employer] MANAGER Work Phone: [facility] Comment on above: BMI 40.0-44.9, adult ([facility]) (Primary Dx); Essential hypertension Start: 01-22-2023 End: 01-22-2023 Office outpatient visit 15 minutes Andra Ramirez PHOTO TECH-[employer] MANAGER Work Phone: [facility] Comment on above: Essential hypertensi on (Primary Dx); Chest pain, unspecified type; Obstructive sleep apnea; Diabetes mellitus type II, non insulin dependent ([facility]); Hypertensive left ventricular hypertrophy, without heart failure; BMI 40.0-44.9, adult ([facility]) Start: 12-16-2022 End: 12-16-2022 Subsequent hospital visit by physician Gema Richard Stress Room [facility] Start: 2022 End: 11-12-2022 ambulatory Claudia Parra Facility:[facility] Start: 2022 Evaluation and manag ement of inpatient MD Shea Beach Work Phone: [facility] Work Phone: Start: 2022 observation encounter MD Ewa Beach Work Phone: [facility] Work Phone: Start: 11-24-2021 End: 11-25-[address] SHEA BEACH Facility:[facility] Start: 11-07-2021 Encounter for genera l adult medical examination without abnormal findings DR SHEA BEACH [facility] Start: 11-03-2021 End: 11-03-[address] SHEA [...] Start: 03-27-2021 End: 03-28-[address] SHEA BAECH Facility:[facility] Start: 03-25-2021 End: 03-25-2021 ambulatory MIKE RADFORD Facility:[facility] Start: 03-24-2021 End: 03-25-[address] SHEA BEACH Facility:[facility] Procedures Date Procedure Procedure Detail Performing Clinician Start: 12-17-2022 Cv strs tst xers&/or rx cont ecg trcg only Mike Morelos DO Work Phone: Start: 03-24-[address] ANA BEACH Comment on above: Performed By: #### C MP #### [facility] [address] [place], [place] [address] Dr. Sunny Ortez Start: 12-17-2018 Antibody screen Comment on above: Performed By: #### T [id number] ####[facility] [address] [place], [place] [phone] Partial nephrectomy Tariq GORDON Plan of Treatment Date Care Activity Detail Author Start: 01-20-2024 End: 01-20-2024 Patient encounter procedure 01/20/2024 3:30 PM EST Office Visit [facility] [address] [place] [phone] Mike Morelos DO [address] [facility] [place] [address] [facility] Start: 03-25-2023 End: 03-25-2023 Patient encounter procedure 03/25/2023 3:30 PM EST Office Visit [facility] [address] [place] [address] Andra Ramirez, PHOTO TECH-[employer] MANAGER [address] [place] [address] [facility] Start: 12-17-2022 End: 12-17-2022 Professional / ancillary services management [facility] Start: 2022 Blood chemistry [facility] Start: 2022 Hospital admission [facility] Start: 2022 End: [address] [facility] Start: 2022 Plain chest X-ray XR chest 2V* [facility] Start: 2022 XR Chest [address] [facility] Start: 10-11-2022 Influenza vaccination Influenza Vaccine (#1) [facility] Start: 2012 Zoster Vaccines (1 of 2) Zoster Vaccines (1 of 2) [facility] Start: 1984 DTaP/Tdap/Td Vaccines (1 - Tdap) DTaP/Tdap/Td Vaccines (1 - Tdap) [facility] Start: 1981 Urine screening for protein Diabetes: Urine Protein Screening [facility] Start: 1980 Hepatitis C screening Hepatitis C Screening [facility] Start: 1972 Diabetic foot examination Diabetes: Foot Exam [facility] Start: 1972 Glaucoma screening Diabetes: Retinopathy Screening [facility] Start: 1968 Pneumococcal Vaccine: Pediatrics (0 to 5 Years) and At-Risk Patients (6 to 64 Years) (1 - PCV) Pneumococcal Vaccine: Pediatrics (0 to 5 Years) and At-Risk Patients (6 to 64 Years) (1 - PCV) [facility] Start: 11-11-1963 MMR Vaccines (1 of 1 - Standard series) MMR Vaccines (1 of 1 - Standard series) [facility] Start: 05-12-1963 COVID-19 Vaccine (#1) COVID-19 Vaccine (#1) [facility] Start: 1962 Hemoglobin A1c measurement Diabetes: Hemoglobin A1C [facility] Start: 1962 HIV screening HIV Screening [facility] Start: 1962 Lipid panel Lipid Panel [facility] Start: 1962 Screening for malignant neoplasm of colon [facility] Start: 1962 Yearly Adult Physical Yearly Adult Physical [facility] Anion gap measurement [facility] Calculated LDL cholesterol level [facility] Cholesterol.total/Ch oles terol in HDL [Mass Ratio] in Serum or Plasma [facility] Glucose measurement estimated from glycated hemoglobin [facility] NM Heart Perfusion W stress and W radionuclide IV Nuclear Stress Test Cardiac Nuclear Medicine Routine Chest pain, unspecified type 12/16/2022 8:08 AM EST [facility] Service Area Work Phone: VLDL cholesterol measurement [facility] Payers Date Payer Category Payer Unknown [id number] 2022 Self-pay 2022 Unknown [id number] 2022 Private Health Insurance [employer] [id number] 2022-Present [address] [place] [address] [id number] 2022 Unknown [id number] 1960 Unknown [id number] 2.16.840.1.838237.3.579.2.5 93 1962 Unknown [id number] 2.16.840.1.368637.3.579.2.5 93 1962 Unknown [id number] 2.16.840.1.836742.3.579.2.5 93 1962 Unknown [id number] 2.16.840.1.806368.3.579.2.5 93 1962 Unknown [id number] 2.16.840.1.224076.3.579.2.5 93 1962 Unknown [id number] 2.16.840.1.483554.3.579.2.5 93 1962 Unknown [id number] 2.16.840.1.515538.3.579.2.5 93 1962 Unknown [id number] 2.16.840.1.157776.3.579.2.5 93 1962 Unknown [id number] 2.16.840.1.840394.3.579.2.5 93 1962 Unknown [id number] 2.16.840.1.975090.3.579.2.5 93 1962 Unknown [id number] 2.16.840.1.078532.3.579.2.7 27 1962 Unknown [id number] 2.16.840.1.292138.3.579.2.7 27 1962 Unknown [id number] 2.16.840.1.580979.3.579.2.1 73 1962 Unknown [id number] 2.16.840.1.443889.3.579.2.1 73 1962 Unknown [id number] 2.16.840.1.259978.3.579.2.1 73 1962 Unknown [id number] 2.16.840.1.497552.3.579.2.1 73 1959 Unknown [id number] 1959 Unknown [id number] Unknown [place] BC/BS [id number] Unknown [id number] [id number] 31 Social History Date Type Detail Facility Start: 2022 End: 07-14-2023 Tobacco smoking status NHIS Never smoked tobacco (finding) [facility] Start: 1960 Sex Assigned At Male [facility] Tobacco smoking stat us WVIS Tobacco smoking consumption unknown [facility] Work Phone: Start: 12-16-2022 Gender identity Identifies as male gender (finding) [facility] Work Phone: Start: 12-16-2022 Sexual orientation Heterosexual (finding) [facility] Work Phone: Start: 12-06-2022 End: 04-23-2023 Exposure to SARS-CoV-2 (event) Not sure [facility] Start: 01-22-2023 Tobacco use and exposure Smokeless tobacco non-user [facility] Work Phone: Start: 01-22-2023 End: 04-23-2023 Alcohol intake Lifetime non-drinker (finding) [facility] Work Phone: Start: 01-22-2023 End: 04-23-2023 History of Social function [facility] Work Phone: Start: 01-22-2023 End: 04-23-2023 Tobacco use panel [facility] Tobacco smoking status Never [facility] Functional Status Date Assessment Result Facility 08-04-2023 Functional Status N/A [facility] 07-14-2023 Functional Status N/A [facility] [place] [facility] [place] Clinical Notes 01-22-2023 to 08-04-2023 [facility] 3:30 PM EDTPatient InstructionsAssessment & Plan Note - [facility] 01/23/2023 12:01 PM [facility] 01[facility] 3:30 PM EST Note Date & Type Note Facility 08-04-2023 Note Patient: CLARENCE FLORES Age: 62 years Sex: Male : 1960 Associated Diagnoses: None Author: Tariq GORDON MD Subjective no changes to H & P [facility] Comment on above: Result Comment: Elec tronically [...] disease: Father and Sister. Ovarian cancer: Mother. [facility] Comment on above: Result Comment: Elec tronically [...] Annual follow-up Andra Ramirez MSN, JOSÉ MIGUEL-AMBREEN, PMHNP-[facility] Please excuse any errors in grammar or translation related to this dictation. Voice recognition software was utilized to prepare this document.. documented in this encounter [facility] Work Phone: 04-23-2023 Instructions SUGEY Tabares [...] 9 months documented in this encounter [facility] Work Phone: 01-23-2023 Evaluation + Plan note Associated Problem(s): BMI 40.0-44.9, adult (CMS/HCC) Recently started treatment with Ozempic Weight is down 10 pounds Reviewed the merits of healthy lifestyle choices on overall cardiovascular health. [facility] Work Phone: 01-23-2023 Miscellaneous Notes Associated [...] EF 59%. documented in this encounter [facility] Work Phone: 01-23-2023 Evaluation + Plan note Associated Problem(s): Obstructive sleep apnea Remains compliant with CPAP [facility] Work Phone: 01-23-2023 Evaluation + Plan note Associated Problem(s): Diabetes mellitus type II, non insulin dependent (CMS/HCC) On ARB No statin Unknown hemoglobin A1c [facility] Work Phone: 01-23-2023 Evaluation + Plan note Associated Problem(s): Hypertensive left ventricular hypertrophy, without heart failure November 2022 TTE LVEF greater than 70% LVH moderate MR trace [facility] Work Phone: 01-23-2023 Evaluation + Plan note Associated Problem(s): Essential hypertension He has been compliant with addition of doxazosin and valsartan since discharge. Reports PCP stopped hydrochlorothiazide. Remains elevated in office today [facility] Work Phone: 01-23-2023 Evaluation + Plan note Associated Problem(s): Cardiac and Vasculature November 2022 hospitalization for chest pressure, ruled out ACS. Inpatient echo EF greater than 70%, no wall motion abnormality. Subsequent December 2022 perfusion study no ischemia, no infarct. Completed 4 METS. EF 59%. [facility] Work Phone: 01-22-2023 History of Present illness Narrative Chief Complaint Doing fine Reason for Visit Patient presents to the office today for outpatient follow-up for hospital follow up. Patient was recently hospitalized at [facility]. The patient was seen in Cardiology consult with subsequent cardiovascular management by [facility] Hospitalization records have been reviewed. Reason for Cardiology Consultation: Chest pressure, accelerated hypertension Consulting Vehicle Trimmer: Dr. Morelos Cardiovascular testing: Echocardiogram, outpatient perfusion study Changes to cardiovascular medical regimen at time of discharge: Added Cardura 8 mg, valsartan 320 mg, hydrochlorothiazide Discharge disposition: Home This is initial in clinic evaluation at [facility] Presents today ambulatory with steady gait. Accompanied [...] Diabetes mellitus type II, non insulin dependent ([facility]) On ARB No statin Unknown hemoglobin A1c Obstructive sleep apnea Remains compliant with CPAP BMI 40.0-44.9, adult ([facility]) Recently started treatment with Ozempic Weight is [...] contact the office if new symptoms arise. 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 Voice recognition software was utilized to prepare this document. documented in this encounter [facility] Work Phone: 01-22-2023 Instructions SUGEY Tabares [...] contact the office if new symptoms arise. 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 documented in this encounter [facility] Work Phone: Evaluation + Plan note Future Appointments Appointment Date:08/04/2023 08:30:00 AM Scheduled Provider: Location:[facility] Appointment Type:Surgery [facility] [place] Evaluation note Diagnosis Onset Date Chest pain acute Hypertensive urgency acute [facility] Work Phone: Evaluation note* Diagnosis Essential hypertension- Primary Unspecified essential hypertension Chest pain, unspecified type Obstructive sleep apnea Obstructive sleep apnea (adult) (pediatric) Diabetes mellitus type II, non insulin dependent ([facility]/HCC) Type II or unspecified type diabetes mellitus without mention of complication, not stated as uncontrolled Hypertensive left ventricular hypertrophy, without heart failure BMI 40.0-44.9, adult ([facility]/HCC) documented in this encounter [facility] Work Phone: Evaluation note* Diagnosis BMI 40.0-44.9, adult (CMS/HCC)- Primary Essential hypertension Unspecified essential hypertension documented in this encounter [facility] Work Phone: Hospital course Narrative No data available for this section [facility] [place] [facility] Discharge instructions No data available for this section [facility] [place] Progress note No data available for this section [facility] [place] Reason for referral (narrative)* Consultation (Routine) - Authorized Specialty Diagnoses / Procedures Referred By Contsharmin t Referred To Contact Cardiology Diagnoses Essential hypertension Procedures Follow Up In Cardiology Andra Ramirez APRN-AMBREEN [address] [place] [id number] Referral ID Status Reason Start Date Expiration Date V isits Requested Visits Authorized [id number] Authorized 01/22/2023 01/22/2024 1 1 [facility] Work Phone: Reason for referral (narrative)* Consultation (Routine) - Authorized Specialty Diagnoses / Procedures Referred By Callum long Referred To Contact Cardiology Diagnoses Essential hypertension Procedures Follow Up In Cardiology Andra Ramirez APRN-CNP [address] [place] [address] Mike Morelos DO [address] [place] [address] Referral ID Status Reason Start Date Expiration Date V isits Requested Visits Authorized [id number] Authorized 04/23/2023 04/22/2024 1 1 [facility] Work Phone: Summary Purpose Family History [...] 2022 1:53am Hospital Course Note HNO ID: [id number] Author: Delonte pham ([facility]) Hrnchar Service: Urology Author Type: Nurse Practitioner [...] DATE CREATED AUTHOR AUTHOR'S ORGANIZ ATION 11/23/2022 [facility] DATE CREATED AUTHOR AUTHOR'S ORGANIZ ATION 08/08/2023 Eladio Gee [facility] DATE CREATED AUTHOR AUTHOR'S [...] MD Admit Provider, Attending Provi jefferson Active Rural Route Carrier Relationship Specialty Start Date End Date Shea Beach MD [address] [place] [address] PCP - General Family Medicine 11/13/[address] Carrier Relationship Specialty Start Date End Date Shea Beach MD [address] [place] [address] PCP - General Family Medicine 11/13/[address] Carrier Relationship Specialty Start Date End Date Shea Beahc MD [address] [place] [address] PCP - General Family Medicine 11/13/[address] Carrier Relationship Specialty Start Date End Date Shea Beach MD [address] [place] [address] PCP - General Family Medicine 11/13/22 Goals [...] DO [address] [place] [address] Referral ID Status Reason Start Date Expiration Date V isits Requested Visits Authorized [id number] Authorized 11/13/2022 05/12/2023 5 5 Reason Comments Shortness of Breath Chest pressure Specialty Diagnoses / Procedures Referred By Contac t Referred To Contact Cardiology Diagnoses Chest pain, unspecified type Procedures Follow Up In Cardiology Mike Morelos, DO [address] [facility] [place] [address] Mike Morelos, DO [address] [place] [id number] Referral ID Status Reason Start Date Expiration Date V isits Requested Visits Authorized [id number] Authorized 01/06/2023 01/06/2024 1 1 Reason Comments Follow-up 1 month Specialty Diagnoses / Procedures Referred By Contac t Referred To Contact Cardiology Diagnoses Essential hypertension Procedures Follow Up In Cardiology Andra Ramirez, PHOTO TECH-[employer] MANAGER [address] [facility] [address], [address] [place], [place] [id number] Referral ID Status Reason Start Date Expiration Date V isits Requested Visits Authorized [id number] Authorized 03/25/2023 03/24/2024 1 1 FOR RECORDS [...] RECORDS. [facility] [employer] [facility]. provides no warranty or guarantee of the accuracy or completeness of information in this document.
[2023-09-17 13:32] LABS: Free T3 2.26 pg/mL (2.18-3.98); Magnesium 2.1 mg/dL (1.8-2.4); Thyroid Stimulating Hormone 0.664 uIU/mL (0.358-3.740)
[2023-09-17 13:42] LABS: Troponin I High Sensitivity 6.9 pg/mL (4.0-76.1)
[2023-09-17] MEDS: DILTIAZEM HCL 60 MG TABLET PO ×3 (14:07→21:20)
--- NOTE | 2023-09-17 16:15 | ECG_ITS ---
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
[2023-09-17 16:24] LABS: Bilirubin Urine NEGATIVE (NEGATIVE); Blood Urine TRACE-I (NEGATIVE); Clarity Urine CLEAR (CLEAR); Color Urine LT. YELLOW (YELLOW); Glucose Urine UA >=1000 mg/dL (NEGATIVE); Ketones Urine NEGATIVE (NEGATIVE); Leukocyte Esterase Urine NEGATIVE (NEGATIVE); Nitrite Urine NEGATIVE (NEGATIVE); Protein Urine NEGATIVE (NEG/TRACE); Urobilinogen Urine 0.2 EU/dL (0.2-1.0)
[2023-09-17 16:33] LABS: Bacteria Urine NONE SEEN #/HPF (NONE SEEN); Cast Seen? NONE SEEN #/LPF (NONE SEEN); Crystals Seen? None Seen #/HPF (None Seen); Mucus Urine TRACE (NONE SEEN); RBC Urine 0-2 #/HPF (0-2); Squamous Epithelial Cell Urine RARE #/LPF (NONE/RARE); Urine Culture Indicated ALREADY ORDERED; WBC Urine NONE SEEN #/HPF (NONE SEEN)
[2023-09-17 16:38] LABS: Troponin I High Sensitivity 6.8 pg/mL (4.0-76.1)
--- NOTE | 2023-09-17 18:26 | P.HP_ITS ---
HPI H&P: HPI History of Present Illness Chief complaint: AFIB Narrative: Patient had a colonoscopy today in the PACU area patient was found to have atrial fibrillation with rapid ventricular response. Had some hypotension with that with blood pressure 70s over 40s, referred to ER for evaluation. In ER patient was confirmed in atrial fibrillation on telemetry heart rate in the 110s to 130s admitted for workup and treatment of same. This is a new diagnosis for him although he states this may have been going on for over a month When I saw patient up in the medical surgical floor, he was resting comfortably in bed. Discussed with nursing he did convert into the normal sinus rhythm. Currently denies chest pain or shortness of breath. He had a chronic cough for a while now as well. Opioid HPI Opioid Management Most Recent Pain and Opioid Data: Last Pain Assessment 09/17/23 18:00 Last ORT Total Score 0 09/17/23 13:21 Last ORT Risk Category Low Risk 09/17/23 13:21 Review of Systems ROS Status of ROS 10 or more systems reviewed and unremark able except as noted in history and below [facility] Medical History (Updated 09/17/23 @ 13:48 by Veor Miranda) Noncompliance with CPAP treatment ?Z91.199 - Patient's noncompliance with other medical treatment and regimen due to unspecified reason (ICD-10) Obstructive sleep apnea ?G47.33 - Obstructive sleep apnea (adult) (pediatric) (ICD-10) Gallstone ?K80.20 - Calculus of gallbladder without cholecystitis without obstruction (ICD-10) Diabetes ?E11.9 - Type 2 diabetes mellitus without complications (ICD-10) Hypertension ?I10 - Essential (primary) hypertension (ICD-10) Surgical History (Updated 09/17/23 @ 08:47 by Emily Angeles) History of tonsillectomy ?Z90.89 - Acquired absence of other organs (ICD-10) H/O partial nephrectomy ?Z90.5 - Acquired absence of kidney (ICD-10) Family History (Updated 09/09/23 @ 13:08 by Monica Fontana) Father Heart disease Mother Ovarian cancer Social History (Updated 09/17/23 @ 13:49 by Vero Miranda) Within the past year, how often did you have a drink containing alcohol: never Score interpretation: A score less than 4 is consistent with normal alcohol consumption. 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 Highest level of school completed/degree received: high school graduate Meds Home Medications and Allergies Home Medications ?Medication ?Instructions ?Recorded ?Confirmed ?Type doxazosin 4 mg tablet (Cardura) 4 mg PO QPM 09/09/23 09/17/23 History empagliflozin 10 mg tablet 10 mg PO DAILY 09/09/23 09/17/23 History (Jardiance) metformin 500 mg tablet,extended 1,000 mg PO .QHS 09/17/23 09/17/23 History release 24 hr metoprolol succinate 100 mg 150 mg PO DAILY 09/17/23 09/17/23 History tablet,extended release 24 hr montelukast 10 mg tablet 10 mg PO DAILY 09/17/23 09/17/23 History semaglutide 2 mg/dose (8 mg/3 mL) 2 mg subcut QWEEK 09/17/23 09/17/23 History subcutaneous pen injector (Ozempic) valsartan 320 mg tablet 320 mg PO DAILY 09/17/23 09/17/23 History Allergies Allergy/AdvReac Type Severity Reaction Status Date / Time nitroglycerin Allergy syncope Verified 09/17/23 08:44 Exam Constitutional Vital Signs, click to edit/add: Last Vital Signs Temp 98.0 F 09/17/23 13:21 Pulse 88 09/17/23 17:51 Resp 16 09/17/23 13:21 BP 116/76 09/17/23 13:21 Pulse Ox 97 09/17/23 16:10 O2 Del Method Room Air 09/17/23 16:10 Documenting provider has reviewed patient's vital signs: yes Common normals: no apparent distress Chest Common normals: inspection of chest normal and palpation of chest normal Respiratory Common normals: normal respiratory effort and no retractions Auscultation: crackles Cardio Common normals: regular rate and regular rhythm GI Common normals: Normal to inspection, nondistended, normoactive bowel sounds present and soft to palpation Extremity Common normals: normal to inspection and full ROM Results Labs Labs: Short CBC 09/17/23 Range/Units 10:53 WBC 11.2 H (4.0-11.0) 10^3/uL Hgb 17.4 (14.0-18.0) g/dL Hct 53.0 (42.0-54.0) % Plt Count 231 (150-450) 10^3/uL BMP 09/17/23 10:53 Sodium 141 Potassium 3.8 Chloride 107 Carbon Dioxide 24.5 BUN 9.0 Creatinine 1.42 H Glucose 100 Calcium 9.2 Liver Function 09/17/23 Range/Units 10:53 Total Bilirubin 1.2 H (0.2-1.0) mg/dL AST 22 (15-37) U/L ALT 21 (16-63) U/L Alkaline Phosphatase 61 (46-116) U/L Albumin 3.5 (3.4-5.0) g/dL Urine 09/17/23 Range/Units 14:00 Urine Color Lt. yellow (YELLOW) Urine Clarity Clear (CLEAR) Urine pH 6.0 (5.0-9.0) Ur Specific [place] 1.010 (1.005-1.025) Urine Protein Negative (NEG/TRACE) mg/dL Urine Glucose (UA) >=1000 A (NEGATIVE) mg/dL Assessment and Plan Assessment and Plan (1) Atrial fibrillation: Plan Atrial fibrillation with rapid ventricular response with significant hypotension of systolic blood pressure 70s, diastolic in the 40s.-new diagnosis- echocardiogram labs to include thyroid and magnesium. Patient did convert to normal sinus rhythm, maintain Eliquis currently NIDDM-insulin sliding scale and home medications Rectal bleeding with colon polyp found on colonoscopy prior to coming in Allergy And asthma-continue with home medications Hypertension-continue with home medications Admission status: Patient with new onset atrial fibrillation currently rate controlled with oral medications, will watch patient overnight for condition deterioration due to the significant hypotension and when he was is in his rapid ventricular response. Blood pressures were 70s over 40s-medically necessary treatment likely to span 1 midnight. Observation status.
[2023-09-17 21:19] LABS: Glucometer 139 mg/dL (74-106)
[2023-09-17] MEDS: METFORMIN HCL 500 MG TAB.ER.24H 1000 MG PO (21:19)
[2023-09-17] MEDS: APIXABAN 5 MG TABLET PO (21:19)
[2023-09-18] VITALS (10 sets, daily range): BP systolic 114–138; BP diastolic 72–88; PULSE 66–106; TEMP 36.6–36.9; O2SAT 93–97
--- NOTE | 2023-09-18 02:57 | ECG_ITS ---
[facility] Test Date: 2023-09-18 Pat Name: BOB CHASE Department: Room: 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
[2023-09-18 03:26] LABS: Basophils Absolute Auto 0.1 10^3/uL (0.0-0.1); Basophils Percent Auto 0.7 % (0.2-2.0); Eosinophils Absolute Auto 0.3 10^3/uL (0.0-0.7); Eosinophils Percent Auto 2.7 % (0.9-7.0); Hematocrit 47.5 % (42.0-54.0); Hemoglobin 15.7 g/dL (14.0-18.0); Immature Granulocytes Abs Auto 0.12 10^3/uL (0.00-0.03); Immature Granulocytes Pct Auto 1.1 % (0.0-0.5); Lymphocytes Absolute Auto 1.8 10^3/uL (1.2-3.8); Lymphocytes Percent Auto 16.7 % (20.5-60.0); Mean Corpuscular HGB Conc 33.1 g/dL (29.9-35.2); Mean Corpuscular Hemoglobin 29.7 pg (25.9-34.0); Mean Platelet Volume 9.5 fL (9.5-13.5); Monocytes Absolute Auto 0.9 10^3/uL (0.3-0.8); Monocytes Percent Auto 8.3 % (1.7-12.0); Neutrophils Absolute Auto 7.6 10^3/uL (1.4-6.5); Neutrophils Percent Auto 70.5 % (43.0-75.0); Platelet Count 246 10^3/uL (150-450); Red Blood Count 5.28 10^6/uL (4.70-6.10); Red Cell Distribution Width 13.7 % (11.0-15.0); White Blood Count 10.8 10^3/uL (4.0-11.0)
[2023-09-18 03:34] LABS: Anion Gap 13.2; BUN Creatinine Ratio 12.6; Calcium 8.7 mg/dL (8.5-10.1); Carbon Dioxide 23.4 mmol/L (21.0-32.0); Chloride 108 mmol/L (98-107); Estimated GFR (African America >60 (>=60); Estimated GFR (Non-African Ame 58 (>=60); Glucose 99 mg/dL (74-106); Potassium 3.6 mmol/L (3.5-5.1); Sodium 141 mmol/L (136-145)
[2023-09-18 03:47] LABS: Troponin I High Sensitivity 6.2 pg/mL (4.0-76.1)
[2023-09-18 08:09] LABS: Glucometer 105 mg/dL (74-106)
--- NOTE | 2023-09-18 08:30 | P.DS_ITS ---
DS: Providers Provider Date of admission: 09/17/23 13:07 Primary care physician: Stalin Singer MD DS: Diagnosis Discharge Diagnosis (1) Atrial fibrillation: Plan Atrial fibrillation with rapid ventricular response with significant hypotension of systolic blood pressure 70s, diastolic in the 40s. Improving at the time of discharge NIDDM-stable at the time of discharge Rectal bleeding with colon polyp found on colonoscopy prior to coming in Allergy And asthma-stable with home medications Hypertension-improved at the time of discharge Admission status: Patient with new onset atrial fibrillation currently rate controlled with oral medications, will watch patient overnight for condition deterioration due to the significant hypotension and when he was is in his rapid ventricular response. Blood pressures were 70s over 40s-medically necessary treatment likely to span 1 midnight. Observation status. ? DS: Summary Hospital Course Hospital Course: Patient was completed a procedure for colonoscopy, colon biopsy completed, in the PACU area patient had tachycardia, EKG consistent with atrial fibrillation with rapid ventricular response. Also hypotensive episode given fluids. And transferred down to the emergency room. In the emergency room did confirm the atrial fibrillation. Given IV medications for rate control. Patient admitted for workup and treatment of same. Echocardiogram does show slightly dilated atria at 4.4 cm mild LVH. Overnight patient had no further elevation in his blood pressure. Did go in and out of atrial fibrillation on 1 occasion. This morning he is back in sinus rhythm. Plan is to have him ambulate. Continue with current medications. If blood pressure and heart rate remain controlled, he can be discharged to home in improving condition. Medications see list. See me in the office early next week. Patient will need retitration of his CPAP since he had about a 70 pound weight loss Status at Discharge Overall status at discharge: patient is not back to baseline Time Spent with Patient Time attestation: Total time spent providing and/or coordinating discharge services: Time spent: greater than 30 minutes Exam Constitutional Vital Signs, click to edit/add: Last Vital Signs Temp 97.9 F 09/18/23 03:43 Pulse 83 09/18/23 08:00 Resp 18 09/18/23 03:43 BP 114/72 09/18/23 05:56 Pulse Ox 93 L 09/18/23 03:43 O2 Del Method Room Air 09/18/23 03:43 Documenting provider has reviewed patient's vital signs: yes Common normals: no apparent distress Chest Common normals: inspection of chest normal and palpation of chest normal Respiratory Common normals: normal respiratory effort and no retractions Auscultation: crackles Cardio Common normals: regular rate and regular rhythm GI Common normals: Normal to inspection, nondistended, normoactive bowel sounds present and soft to palpation Extremity Common normals: normal to inspection and full ROM DS: Data Data Completed and Pending Labs on day of discharge: Labs from last 24 hours 09/18/23 09/18/23 09/17/23 08:08 03:16 21:18 WBC 10.8 RBC 5.28 Hgb 15.7 Hct 47.5 MCV 90.0 MCH 29.7 MCHC 33.1 RDW 13.7 Plt Count 246 MPV 9.5 Neut % (Auto) 70.5 Lymph % (Auto) 16.7 L Edgar % (Auto) 8.3 Eos % (Auto) 2.7 Baso % (Auto) 0.7 Neut # (Auto) 7.6 H Lymph # (Auto) 1.8 Edgar # (Auto) 0.9 H Eos # (Auto) 0.3 Baso # (Auto) 0.1 Abs Immat Gran (auto) 0.12 H Imm/Tot Granulo (auto) 1.1 H PT INR APTT Sodium 141 Potassium 3.6 Chloride 108 H Carbon Dioxide 23.4 Anion Gap 13.2 BUN 16.0 Creatinine 1.27 Est GFR ( Amer) >60 Est GFR (Non-Af Amer) 58 L BUN/Creatinine Ratio 12.6 Glucose 99 Calcium 8.7 Magnesium Total Bilirubin AST ALT Alkaline Phosphatase Troponin I High Sens 6.2 NT-Pro-B Natriuret Pep 1123.0 H Total Protein Albumin Globulin Albumin/Globulin Ratio TSH Thyroxine (T4) Free T3 Urine Color Urine Clarity Urine pH Ur Specific [place] Urine Protein Urine Glucose (UA) Urine Ketones Urine Occult Blood Urine Nitrite Urine Bilirubin Urine Urobilinogen Ur Leukocyte Esterase Urine RBC Urine WBC Ur Squamous Epith Cells Urine Crystals Urine Bacteria Urine Casts Urine Mucus Ur Culture Indicated? POC Glucose 105 139 H 09/17/23 09/17/23 09/17/23 16:07 14:00 13:20 WBC RBC Hgb Hct MCV MCH MCHC RDW Plt Count MPV Neut % (Auto) Lymph % (Auto) Edgar % (Auto) Eos % (Auto) Baso % (Auto) Neut # (Auto) Lymph # (Auto) Edgar # (Auto) Eos # (Auto) Baso # (Auto) Abs Immat Gran (auto) Imm/Tot Granulo (auto) PT INR APTT Sodium Potassium Chloride Carbon Dioxide Anion Gap BUN Creatinine Est GFR ( Amer) Est GFR (Non-Af Amer) BUN/Creatinine Ratio Glucose Calcium Magnesium Total Bilirubin AST ALT Alkaline Phosphatase Troponin I High Sens 6.8 6.9 NT-Pro-B Natriuret Pep Total Protein Albumin Globulin Albumin/Globulin Ratio TSH Thyroxine (T4) Free T3 Urine Color Lt. yellow Urine Clarity Clear Urine pH 6.0 Ur Specific [place] 1.010 Urine Protein Negative Urine Glucose (UA) >=1000 A Urine Ketones Negative Urine Occult Blood Trace-i Urine Nitrite Negative Urine Bilirubin Negative Urine Urobilinogen 0.2 Ur Leukocyte Esterase Negative Urine RBC 0-2 Urine WBC None seen Ur Squamous Epith Cells Rare Urine Crystals None seen Urine Bacteria None seen Urine Casts None seen Urine Mucus Trace A Ur Culture Indicated? Already ordered POC Glucose 09/17/23 10:53 WBC 11.2 H RBC 5.86 Hgb 17.4 Hct 53.0 MCV 90.4 MCH 29.7 MCHC 32.8 RDW 13.6 Plt Count 231 MPV 9.4 L Neut % (Auto) 76.0 H Lymph % (Auto) 13.0 L Edgar % (Auto) 8.3 Eos % (Auto) 1.8 Baso % (Auto) 0.6 Neut # (Auto) 8.5 H Lymph # (Auto) 1.5 Edgar # (Auto) 0.9 H Eos # (Auto) 0.2 Baso # (Auto) 0.1 Abs Immat Gran (auto) 0.03 Imm/Tot Granulo (auto) 0.3 PT 11.3 INR 1.07 APTT 30.7 Sodium 141 Potassium 3.8 Chloride 107 Carbon Dioxide 24.5 Anion Gap 13.3 BUN 9.0 Creatinine 1.42 H Est GFR ( Amer) >60 Est GFR (Non-Af Amer) 51 L BUN/Creatinine Ratio 6.3 Glucose 100 Calcium 9.2 Magnesium 2.1 Total Bilirubin 1.2 H AST 22 ALT 21 Alkaline Phosphatase 61 Troponin I High Sens 9.0 NT-Pro-B Natriuret Pep 2287.0 H* Total Protein 6.7 Albumin 3.5 Globulin 3.2 Albumin/Globulin Ratio 1.1 TSH 0.664 Thyroxine (T4) 7.90 Free T3 2.26 Urine Color Urine Clarity Urine pH Ur Specific [place] Urine Protein Urine Glucose (UA) Urine Ketones Urine Occult Blood Urine Nitrite Urine Bilirubin Urine Urobilinogen Ur Leukocyte Esterase Urine RBC Urine WBC Ur Squamous Epith Cells Urine Crystals Urine Bacteria Urine Casts Urine Mucus Ur Culture Indicated? POC Glucose Discharge Plan Discharge Disposition: Home, Self-Care Condition: Good Discharge Medications: New Eliquis 5 mg Tablet 5 mg PO BID Qty: 60 11RF diltiazem HCl 120 mg Capsule,Extended Release 24hr 120 mg PO QD Qty: 30 11RF Continued doxazosin [Cardura] 4 mg tablet 4 mg PO QPM Jardiance 10 mg tablet 10 mg PO DAILY montelukast 10 mg tablet 10 mg PO DAILY valsartan 320 mg tablet 320 mg PO DAILY metoprolol succinate 100 mg tablet extended release 24 hr 150 mg PO DAILY metformin 500 mg tablet extended release 24 hr 1,000 mg PO .QHS Ozempic 2 mg/dose (8 mg/3 mL) pen injector 2 mg SUBCUT QWEEK Discontinued amlodipine 10 mg tablet 10 mg PO DAILY spironolactone 25 mg tablet 25 mg PO DAILY Print Language: Martiniquais Forms: Portal Instructions
[2023-09-18] MEDS: APIXABAN 5 MG TABLET PO (09:20)
[2023-09-18] MEDS: LOSARTAN POTASSIUM 50 MG TABLET 100 MG PO (09:20)
[2023-09-18] MEDS: MONTELUKAST SODIUM 10 MG TABLET PO (09:20)
[2023-09-18] MEDS: DILTIAZEM HCL 120 MG CAP.ER.24H PO (09:20)
[2023-09-18] MEDS: CANAGLIFLOZIN 100 MG TABLET PO (09:20)
[2023-09-18] MEDS: METOPROLOL SUCCINATE 100 MG TAB.ER.24H 150 MG PO (09:21)
--- NOTE | 2023-09-18 10:34 | CM.NOTE ---
Discussed with pt about home CPAP machine, pt states Dr. Singer is going to take care of setting me up with another sleep study. Otherwise pt does not have any discharge needs that have been identified.
--- NOTE | 2023-09-19 10:33 | CM.DCFOLLOWU ---
1st attempt 09/19/23
--- NOTE | 2023-09-22 11:49 | CM.DCFOLLOWU ---
2nd attempt 09/22/23
--- NOTE | 2023-09-23 11:00 | CM.DCFOLLOWU ---
3rd attempt 09/23/23
== END 2023-09-18 11:45 | disposition home or self-care (01) ==
LOC: ER 12:51 → MS 13:19
PROVIDERS: Admitting Provider Family Medicine; Emergency Provider Emergency Medicine; PCP Family Medicine; Visit Provider Family Medicine
DX: I48.91 Unspecified atrial fibrillation (principal); I95.9 Hypotension, unspecified; E11.9 Type 2 diabetes mellitus without complications; I10 Essential (primary) hypertension; J45.909 Unspecified asthma, uncomplicated; R19.5 Other fecal abnormalities; K62.1 Rectal polyp; K57.30 Diverticulosis of large intestine without perforation or abscess without bleeding; Z79.84 Long term (current) use of oral hypoglycemic drugs; Z79.85 Long-term (current) use of injectable non-insulin antidiabetic drugs; Z90.5 Acquired absence of kidney; G47.33 Obstructive sleep apnea (adult) (pediatric)
CPT/HCPCS: 45380; 36415; 71045; 80048; 80053; 81001; 82948; 83735; 83880; 84436; 84443; 84481; 84484; 85025; 85610; 85730; 87086; 88305; 93005; 93306; 94761; 99285; G0378; J2704

== ENCOUNTER 2024-03-27 08:09 | Outpatient (OUT) | payer OTHER, SELFPAY ==
--- OUTSIDE RECORDS SUMMARY | 2024-03-27 08:14 | XMS_ITS | CCD ---
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 Name Role Phone YONG, DR VALDIVIA Consulting Unavailable DELPHINEY, DR VALDIVIA Primary Care Unavailable HOY, DR VALDIVIA Attending Unavailable HOY, DR VALDIVIA Admitting Unavailable MIKE RADFORD Consulting Unavailable MALINA, MIKE Attending Unavailable MIKE RADFORD Admitting Unavailable DELPHINEY, DR VALDIVIA Primary Care Unavailable KLIPPSTEVE BROWN Consulting Unavailable YONG, DR VALDIVIA Primary Care Unavailable HOY, DR VALDIVIA Attending Unavailable HOY, DR VALDIVIA Admitting Unavailable HOY, DR VALDIVIA Primary Care Unavailable HOY, DR VALDIVIA Attending Unavailable HOY, DR VALDIVIA Admitting Unavailable HOY, DR VALDIVIA Consulting Unavailable HOY, DR VALDIVIA Primary Care Unavailable HOY, DR VALDIVIA Attending Unavailable HOY, DR VALDIVIA Admitting Unavailable Zieber, DR Elise Consulting Unavailable HOY, DR VALDIVIA Consulting Unavailable HOY, DR VALDIVIA Primary Care Unavailable HOY, DR VALDIVIA Attending Unavailable HOY, DR VALDIVIA Admitting Unavailable West, DR Davila Consulting Unavailable HOY, DR VALDIVIA Consulting Unavailable DELPHINEY, DR VALDIVIA Primary Care Unavailable HOY, DR VALDIVIA Attending Unavailable HOY, DR VALDIVIA Admitting Unavailable West, DR Davila Consulting Unavailable HOY, DR VALDIVIA Consulting Unavailable HOY, DR VALDIVIA Primary Care Unavailable YONG, DR VALDIVIA Attending Unavailable HOY, DR VALDIVIA Admitting Unavailable HOY, DR VALDIVIA Consulting Unavailable YONG, DR VALDIVIA Primary Care Unavailable DELPHINEY, DR VALDIVIA Attending Unavailable HOY, DR VALDIVIA Admitting Unavailable HOY, DR VALDIVIA Consulting Unavailable DELPHINEY, DR VALDIVIA Primary Care Unavailable YONG, DR VALDIVIA Attending Unavailable YONG, DR VALDIVIA Admitting Unavailable MD Shea Beach Primary Care Provider DO Damien Hercules Emergency Provider [phone] MD Derick Gomes Admit Provider [phone] MD Derick Gomes Attending Provider [phone] Shea Beach MD Primary Care Provider [phone] Shea Beach Primary Care Physician SHEA BEACH Primary Care Unavailable DAMION HAY Attending Unavailable DAMION HAY Referring Unavailable CUCA PAULINO Referring Unavailable SHEA BEACH Primary Care Unavailable SHEA BEACH Primary Care Unavailable DAMION HAY Referring Unavailable DAMION HAY Attending Unavailable CUCA PAULINO Referring Unavailable SHEA BEACH Primary Care Unavailable MD Tariq Gordon Attending Provider Tariq Gordon Admitting Unavailable Evan, Tariq Bailey Attending Unavailable Claudia Parra Consulting Unavailable Yong Shea Marcela Primary Care Unavailable Moises Carver Attending Unavailable Derick Gomes Admitting Unavailable Maynor Morelos Consulting Unavailable SeeSteve Consulting Unavailable Mike Lama Consulting Unavail able Eric Villa Consulting Unavailable Magdy Rose Consulting Unavailab Andra Alexis Consulting Unavailable Michelle Dumont Consulting Unavailable Jean Gustafson Consulting Unavailab Adelita Jaimes Consulting Unavailable Rosanne Heard Consulting Unavailable Diann Garcia Consulting Unavailable Tariq GORDON Attending Unavailable Tariq GORDON Attending Unavailable Shea Beach Referring Unavailable NILTariq Dickey Attending Unavailable NILTariq Dickey Admitting Unavailable NILNoble, Tariq Bailey Referring Unavailable Tariq GORDON Attending Unavailable Unavailable Primary Care Provider UnavailShea Doss MD Primary Care Provider [phone] Linda BARRIOS, Rachel Unavailable Leon Castro DO Unavailable [phone] Shea Beach MD Primary Care Provider LEON CASTRO Attending Unavailable RACHEL MCKEON Referring Unavailable LEON CASTRO Referring Unavailable RACHEL MCKEON Attending Unavailable JANY NAVARRETE Attending Unavailable JANY NAVARRETE Attending Unavailable JANY NAVARRETE Referring Unavailable LEON CASTRO Attending Unavailable RACHEL MCKEON Referring Unavailable JANY NAVARRETE Attending Unavailable LEON CASTRO Attending Unavailable RACHEL MCKEON Referring Unavailable Allergies Allergy Classification Reported Allergen(s) Allergy Type Date of Onset Reaction(s) Facility (2 sources) Aminolevulinic Acid; Translations: [nitroglycerin] Drug Allergy 0 [facility] (6 sources) Nitroglycerin; Translations: [nitroglycerin] Drug Allergy 9 Other, Low blood pressure (disorder), Other (See Comments) [facility] (19 sources) Nitroglycerin Allergy to substance 9 [facility] Medications Current Medications Medication Drug Class(es) Dates Sig (Normalized) Sig (Original) 3 ML semaglutide 2.68 MG/ML Pen Injector [Ozempic] (3 sources) Start: 07-03-2023 inject 2 mg by [...] Status: Ordered amLODIPine 10 mg oral tablet (20 sources) Dihydropyridine Calcium Channel Long Start: 01-22-2023 End: 01-23-2024 take 1 tablet by mouth in the morning amLODIPine (Norvasc) 10 MG tablet Take 10 mg by mouth in the morning. 01/23/2023 Active amoxicillin 875 mg / clavulanate 125 mg oral tablet (9 sources) Penicillin-class Antibacterial Start: 01-23-2024 End: 02-20-2024 take 1 tablet by mouth in the morning amoxicillin-clav ulanate (Augmentin) 875-125 MG tablet Indications: Acute maxillary sinusitis, recurrence not specified Take 1 tablet (875 mg) by mouth in the morning and 1 tablet (875 mg) before bedtime. Do all this for 28 days. 56 tablet 01/23/2024 02/20/2024 Active apixaban 5 mg oral tablet (20 sources) Factor Xa Inhibitor Start: 09-25-2023 End: 11-14-2023 take 1 tablet by mouth in the morning apixaban (Eliquis) 5 MG tablet Take 5 mg by mouth in the morning and 5 mg in the evening. 09/25/2023 Active azelastine hydrochloride 0.137 mg/actuat metered dose nasal spray (19 sources) Histamine-1 Receptor Antagonist Start: 12-17-2023 End: 12-16-2024 take 2 spray(s) nasal route in the morning azelastine (Astelin) 0.1 % nasal spray Indications: Chronic rhinitis Administer 2 sprays into each nostril in the morning and 2 sprays before bedtime. Use in each nostril as directed. 90 mL 3 12/17/2023 12/16/2024 Active Start: 2022 take 1 drop(s) into the eye(s) once daily Azelastine Active 1 DROPS EYE-BOTH Daily 2022 12:00am take 1 drop(s) into the eye(s) twice daily azelastine (OPTIVAR) 0.05 % ophthalmic solution 1 drop 2 times daily 0 Active 24 hr dilTIAZem hydrochloride 120 mg extended release oral capsule (20 sources) Calcium Channel Long Start: 10-31-2023 End: 10-30-2024 dilTIAZem CD (Cardizem CD) 120 mg 24 hr capsule Indications: Paroxysmal atrial fibrillation (Multi) Take 1 capsule (120 mg) by mouth if needed (if a fib lasts longer than 1-5 mins). 10/31/2023 10/30/2024 Active Start: 10-30-2023 End: 10-30-2024 dilTIAZem CD (Cardizem CD) 1 20 MG 24 hr capsule Take 120 mg by mouth 10/30/2023 10/30/2024 Active DilTIAZem (Eqv-Cardizem CD) 120 mg/24 hours oral capsule, extended release (1 source) Start: 09-25-2023 DilTIAZem (Eqv-Cardizem CD) 120 mg/24 hours oral capsule, extended release 120 mg = 1 cap(s), Oral, Daily, Refills(s) 0 Start Date: 09/25/23 Status: Ordered doxazosin 4 mg oral tablet (20 sources) alpha-Adrenerg ic Long Start: 07-03-2023 take 1 tablet by mouth once daily doxazosin 4 mg Tab 4 mg = 1 tab(s), Oral, Daily, Refills(s) 0, High blood pressure Start Date: 07/03/23 Status: Ordered Start: 11-12-2022 take 8 mg by mouth o nce daily at bedtime Doxazosin Active 8 MG PO Daily at bedtime 60 November 12, 2022 12:00am Start: 2022 End: 11-12-2022 take 2 tablets by mouth at bedtime Doxazosin Discontinued 4 MG PO Bedtime 2022 12:00am November 12, 2022 10:28am takes 2 tabs ( total 8mg) take 1 tablet by melissa th twice daily, then take 0.5 tablet by mouth once daily in the morning, then take 1 tablet by mouth once daily in the evening doxazosin (Cardura) 4 mg tablet Take 1 tablet (4 mg) by mouth 2 times a day. Take half a tablet by mouth every morning and one tablet by mouth every evening Active take 1 tablet by melissa th every twelve hours doxazosin (Cardura) 4 mg tablet Take 1 tablet (4 mg) by mouth every 12 hours. 0 Active empagliflozin 10 mg oral tablet (20 sources) Sodium-Glucose Cotransporter 2 Inhibitor Start: 12-13-2022 take 1 tablet by mouth once daily in the morning Jardiance 10 mg oral tablet 10 mg = 1 tab(s), Oral, qAM, Refills(s) 0, Blood glucose Start Date: 07/03/23 Status: Ordered 30 actuat fluticasone furoate 0.1 mg/actuat / umeclidinium 0.0625 mg/actuat / vilanterol 0.025 mg/actuat dry powder inhaler (13 sources) Anticholinergic, Corticosteroid, beta2-Adrenergic Agonist Start: 01-12-2024 End: 01-11-2025 take 1 puff(s) by inhalation once daily Fluticasone-Umeclidin -Vilant (Trelegy Ellipta) 100-62.5-25 MCG/ACT aerosol powder Indications: Cough variant asthma (CMS/HCC) Inhale 1 puff Daily 3 each 3 01/12/2024 01/11/2025 Active hydroCHLOROthiazide 25 mg oral tablet (6 sources) Thiazide Diuretic Start: 07-03-2023 take 1 tablet by mouth once daily hydrochlorothiazide 25 mg Tab 25 mg = 1 tab(s), Oral, Daily, Refills(s) 0, diuretic/water pill Start Date: 07/03/23 Status: Ordered Start: 11-12-2022 End: 01-22-2023 take 1 tablet by mouth once daily hydrochlorothiazide 25 mg Tab 25 mg = 1 tab(s), Oral, Daily, Refills(s) 0, diuretic/water pill Start Date: 07/03/23 Status: Ordered ipratropium bromide 0.042 mg/actuat metered dose nasal spray (13 sources) Anticholinergic Start: 01-12-2024 End: 04-11-2024 take 2 spray(s) nasal route in the morning, then take 2 spray(s) nasal route in the evening, then take 2 spray(s) nasal route at bedtime ipratropium (Atrovent) 0.06 % nasal spray Indications: Acute maxillary sinusitis, recurrence not specified Administer 2 sprays into each nostril in the morning and 2 sprays in the evening and 2 sprays before bedtime. 15 mL 11 01/12/2024 04/11/2024 Active metFORMIN hydrochloride 500 mg oral tablet (20 sources) Biguanide Start: 07-03-2023 MetFORMIN (Eqv-Glucophage XR) 500 mg oral tablet, extended release [...] mg) by mouth once every 24 hours. 06/17/2022 Active take 1 tablet by melissa th in the morning metFORMIN (Glucophage) 500 MG tablet Take 500 mg by mouth in the morning and 500 mg in the evening. Take with meals. Active 24 hr metoprolol succinate 100 mg extended release oral tablet (20 sources) beta-Adrenergic Long Start: 07-03-2023 metopr olol 100 mg ER Tab 150 mg = 1.5 tab(s), Oral, Daily, Refills(s) 0, High blood pressure Start Date: 07/03/23 Status: Ordered Start: 07-03-2023 take 1 tablet by melissa th every twenty-four hours metoprolol succinate XL (Toprol-XL) 100 MG 24 hr tablet Take 150 mg by mouth 07/03/2023 Active Start: 01-22-2023 metoprolol suc cinate XL (Toprol-XL) 25 mg 24 hr tablet Indications: Hypertensive left ventricular hypertrophy, without heart failure Take 1.5 tablets daily (37.5mg) daily 135 tablet 01/23/2023 Active Start: 2022 End: 11-12-2022 take 150 mg by mouth once daily Metoprolol Succinate A ctive 150 MG PO Daily 45 November 12, 2022 3:22pm Start: 2022 take 1.5 tablets by mouth once daily Metoprolol Succinate Active 100 MG PO Daily 2022 12:00am take 1.5tabs Start: 11-16-2018 End: 01-22-2023 take 1 tablet by mouth twice daily metoprolol succinate XL (Toprol-XL) 25 mg 24 hr tablet Take 1 tablet (25 mg) by mouth twice a day. 0 11/16/2018 01/22/2023 Discontinued (Med List Cleanup) take 1 tablet by melissa th twice daily metoprolol (LOPRESSOR) 100 MG tablet Take 1 tablet by mouth 2 times daily 0 Active montelukast 10 mg oral tablet (11 sources) Leukotriene Receptor Antagonist Start: 01-13-2024 take 1 tablet by mouth once daily montelukast (Singulair) 10 MG tablet Take 10 mg by mouth Daily 01/13/2024 Active Start: 09-25-2023 take 1 tablet by melissa th once daily montelukast 10 mg Tab 10 mg = 1 tab(s), Oral, Daily, Refills(s) 0 Start Date: 09/25/23 Status: Ordered Ozempic 0.25 mg or 0.5 mg (2 mg/3 mL) pen injector (3 sources) Start: 12-13-2022 Ozempic 0.25 m g or 0.5 mg (2 mg/3 mL) pen injector 12/13/2022 Active Start: 12-13-2022 Ozempic 0.25 m g or 0.5 mg (2 mg/3 mL) pen injector Ozempic, 2 MG/DOSE, 8 MG/3ML solution pen-injector (19 sources) Start: 07-03-2023 Ozempic, 2 MG/DOSE, 8 MG/3ML solution pen-injector Inject 2 mg under the skin every 7 (seven) days 07/03/2023 Active 1 mg dose 1.5 ml semaglutide 1.34 mg/ml pen injector (1 source) Semaglutide, 1 MG/DOSE, (OZEMPIC, 1 MG/DOSE,) 2 MG/1.5ML SOPN Inject 1 Units into the skin 0 Active spironolactone 25 mg oral tablet (20 sources) Aldosterone Antagonist Start: 03-25-2023 End: 03-24-2024 take 1 tablet by mouth in the morning spironolactone (Aldactone) 25 MG tablet Take 25 mg by mouth in the morning. 03/25/2023 Active valsartan 160 mg oral tablet (20 sources) Angiotensin 2 Receptor Long Start: 07-03-2023 take 1 tablet by mouth in the morning valsartan (Diovan) 160 MG tablet Take 160 mg by mouth in the morning. 07/03/2023 Active Start: 01-22-2023 End: 10-30-2024 take 1 tablet by mouth once daily valsartan (Diovan) 320 mg tablet Indications: Hypertensive left ventricular hypertrophy, without heart failure Take 1 tablet (320 mg) by mouth once daily. 90 tablet 3 10/31/2023 10/30/2024 Active Start: 11-12-2022 End: 01-22-2023 take 1 tablet by mouth once daily valsartan 160 mg Tab 160 mg = 1 tab(s), Oral, Daily, Refills(s) 0, High blood pressure Start Date: 07/03/23 Status: Ordered Completed/Discontinued Medications Medication Drug Class(es) Dates Sig (Normalized) Sig (Original) hydrALAZINE hydrochloride 50 mg oral tablet (1 source) Arteriolar Vasodilator Start: 09-10-2018 End: 01-22-2023 take 1 tablet by mouth twice daily hydrALAZINE (Apresoline) 50 mg tablet Take 1 tablet (50 mg) by mouth twice a day. 0 09/10/2018 01/22/2023 Discontinued (Therapy completed) iopamidol (ISOVUE-370) 76 % injection 75 mL (1 source) Start: 08-21-2023 End: 08-21-2023 iopamidol (ISOVUE-370) 76 % injection 75 mL Problems Active Problems Problem Classification Problem Date Documented Da te Episodic/Chronic Acute bronchitis (1 source) Acute bronchitis, unspecified; Translations: [ACUTE BRONCHITIS UNSPECIFIED] Onset: 11-01-2021 Episodic Anal and rectal conditions (1 source) Rectal polyp; Translations: [Rectal polyp] Onset: 10-01-2023 Episodic Asthma (2 sources) Cough variant asthma; Translations: [Cough variant asthma] 01-12-2024 Chronic Cancer of kidney and renal pelvis (14 sources) Malignant neoplasm of unspecified kidney, except renal pelvis; Translations: [Malignant neoplasm of left kidney, except renal pelvis] Onset: 03-27-2021 Chronic Diabetes mellitus without complication (1 source) Other abnormal glucose; Translations: [OTHER ABNORMAL GLUCOSE] Onset: 11-28-2021 Episodic Other aftercare (4 sources) Long-term current use of anticoagulant; Translations: [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] 01-31-2024 Episodic Other gastrointestinal disorders (1 source) Abnormal feces; Translations: [Other fecal abnormalities] Onset: 07-14-2023 Episodic Other lower respiratory disease (2 sources) Snoring; Translations: [Snoring] 11-12-2023 Episodic Other lower respiratory disease (2 sources) Dyspnea on exertion; Translations: [Other forms of dyspnea] 12-17-2023 Episodic Other nutritional; endocrine; and metabolic disorders (3 sources) Obese class III 07-14-2023 Chronic Other upper respiratory disease (4 sources) Chronic rhinitis; Translations: [Chronic rhinitis] 12-17-2023 Chronic Other upper respiratory disease (4 sources) Nasal congestion; Translations: [Nasal congestion] 01-31-2024 Episodic Other upper respiratory infections (4 sources) Sinusitis; Translations: [Chronic sinusitis, unspecified] 01-31-2024 Chronic Other upper respiratory infections (7 sources) Acute maxillary sinusitis; Translations: [Acute maxillary sinusitis, unspecified] 01-12-2024 Episodic Residual codes; unclassified (4 sources) Obstructive sleep apnea (adult) (pediatric); Translations: [OBSTRUCTIVE SLEEP APNEA] Onset: 04-10-2021 Chronic Residual codes; unclassified (2 sources) Daytime somnolence; Translations: [Other hypersomnia] 11-12-2023 Chronic Residual codes; unclassified (3 sources) Acquired absence of kidney; Translations: [Acquired absence of kidney] Onset: 08-28-2023 Episodic Unclassified (3 sources) CONTACT W/AND (SUSP) EXPOS COVID-19; Translations: [CONTACT W/AND (SUSP) EXPOS COVID-19] Onset: 11-01-2021 Past or Other Problems Problem Classification Problem Date Documented Da te Episodic/Chronic Cardiac dysrhythmias (13 sources) Atrial fibrillation; Translations: [Paroxysmal atrial fibrillation] Onset: 10-31-2023 Resolved: 01-29-2024 09-18-2023 Chronic Diabetes mellitus without complication (20 sources) Type 2 diabetes mellitus without complications; Translations: [Type 2 diabetes mellitus] Onset: 04-09-2021 Resolved: 01-29-2024 Chronic Diverticulosis and diverticulitis (12 sources) Diverticula of intestine; Translations: [Diverticulosis of large intestine without perforation or abscess without bleeding] Onset: 10-01-2023 Resolved: 01-29-2024 Chronic Essential hypertension (20 sources) Essential (primary) hypertension; Translations: [Essential hypertension] Onset: 11-24-2021 Resolved: 01-29-2024 Chronic Hypertension with complications and secondary hypertension (19 sources) Hypertensive urgency ; Translations: [Hypertensive urgency] Onset: 2022 Resolved: 01-29-2024 2022 Chronic Neoplasms of unspecified nature or uncertain behavior (6 sources) Neoplasm of kidney; Translations: [Neoplasm of unspecified behavior of unspecified kidney] Onset: 12-22-2018 01-17-2023 Episodic Nonspecific chest pain (5 sources) Chest pain; Translations: [Chest pain, unspecified] Onset: 2022 2022 Episodic Other and unspecified benign neoplasm (11 sources) Hyperplastic polyp of large intestine; Translations: [Rectal polyp] Onset: 01-29-2024 Resolved: 01-29-2024 10-01-2023 Episodic Other diseases of kidney and ureters (13 sources) Renal mass; Translations: [Other specified disorders of kidney and ureter] Onset: 01-17-2023 Resolved: 01-29-2024 01-17-2023 Chronic Other gastrointestinal disorders (13 sources) Occult blood in stools; Translations: [Other fecal abnormalities] Onset: 01-29-2024 Resolved: 01-29-2024 07-03-2023 Episodic Other non-traumatic joint disorders (3 sources) Pain in left knee; Translations: [PAIN IN LEFT KNEE] Onset: 03-25-2021 Episodic Other non-traumatic joint disorders (1 source) Effusion, left knee; Translations: [EFFUSION LEFT KNEE] Onset: 03-27-2021 Episodic Other nutritional; endocrine; and metabolic disorders (15 sources) Body mass index 40+ - severely obese; Translations: [Body mass index (BMI) 40.0-44.9, adult] Onset: 01-23-2023 Resolved: 01-29-2024 01-23-2023 Chronic Other nutritional; endocrine; and metabolic disorders (15 sources) Body mass index 30+ - obesity; Translations: [Body mass index (BMI) 34.0-34.9, adult] Onset: 10-31-2023 Resolved: 01-29-2024 07-14-2023 Chronic Other screening for suspected conditions (not mental disorders or infectious disease) (12 sources) Elevated prostate specific antigen [PSA]; Translations: [Raised prostate specific antigen] Onset: 05-22-2023 Resolved: 01-29-2024 01-29-2024 Episodic Residual codes; unclassified (17 sources) Obstructive sleep apnea syndrome; Translations: [Obstructive sleep apnea (adult) (pediatric)] Onset: 01-22-2023 Resolved: 01-29-2024 01-22-2023 Chronic Residual codes; unclassified (12 sources) Never smoked tobacco; Translations: [Other specified health status] Onset: 10-31-2023 Resolved: 01-29-2024 10-31-2023 Episodic Unclassified (1 source) CONTACT W/AND (SUSP) EXPOS COVID-19; Translations: [CONTACT W/AND (SUSP) EXPOS COVID-19] Onset: 10-31-2021 Results Test Name Value Interpretation Reference Range Facility CT MAXILLOFACIAL WO IV CONTR Nell 03-18-2024 CT MAXILLOFACIAL WO IV CONTRAST HISTORY: Sinusitis, not improving TECHNIQUE: Spiral high resolution axial unenhanced CT images were obtained through the paranasal sinuses with sagittal, coronal reconstructions. All CT scans at this facility use dose modulation, iterative reconstruction, and/or weight based dosing when appropriate to reduce radiation dose to as low as reasonably achievable. COMPARISON: CT 01/23/2024. RESULT: Sinus Chambers: Extensive diffuse paranasal sinus disease. Near complete opacification of both maxillary sinuses. Near complete opacification of the ethmoid air cells. Near-complete opacification of the sphenoid sinuses. Hypoplastic frontal sinuses with mild thickening. Overall findings appear slightly worsened from the prior CT. Nasal Cavities: Leftward deviation, unchanged. Developmental Anomalies: Presellar type pneumatization, similar to prior. Ostiomeatal Complex: Occluded bilaterally. Other: The visualized mastoid air cells and middle ear cavities are clear. The soft tissues of the face and orbits are within normal limits within the limitations of the study. IMPRESSION: Extensive diffuse paranasal sinus disease, overall slightly worsened from prior. ELECTRONICALLY SIGNED BY: Tuna Choi MD Normal Not Available CT SINUS WOon 01-23-2024 CT SINUS WO Exam: CT SINUS WO History: sinusitis Technique: Multiple contiguous axial images were obtained of the maxillofacial bones without contrast. Multiplanar reformats were obtained. All CT scans at this facility use dose modulation, iterative reconstruction, and/or weight based dosing when appropriate to reduce radiation dose to as low as reasonably achievable. Comparison: None available Findings: Maxillary Sinuses: Complete opacification of the left maxillary sinus. Near complete opacification of the right maxillary sinus. Ethmoid sinuses: Near complete opacification of the ethmoid air cells. Sphenoid sinuses: Near complete opacification. Sphenoid sinus pneumatization that extends posteriorly to the anterior margin of the sella, compatible with presellar type pneumatization. Frontal sinuses: Hypoplastic but clear. Right sphenoethmoidal recess: Opacified Left sphenoethmoidal recess: Opacified Right ostiomeatal complex and frontal recess: Opacified Left ostiomeatal complex and frontal recess: Opacified Nasal septum: Leftward deviation. Other: Keros type 2 olfactory fossa. No [place] or Tushar cells. Mastoid air cells & middle ears: Clear. The middle ears are unremarkable. Soft tissues & Brain: No acute abnormality identified. Orbital contents are within normal limits. IMPRESSION: Paranasal sinus disease as detailed. ELECTRONICALLY SIGNED BY: Demetri Smith, DO Normal Not Available Ambulatory Visit Summaryon 0 10-01-2023 Ambulatory Visit Summary Ambulatory Visit Summary CLARENCE FLORES :1960 Visit Date:10/01/2023 Ambulatory Visit Instructions Your Care Team Attending Physician - EVAN SARAH, Tariq Bailey Primary Care Physician - Shea Beach MD This Is Your Medications List amlodipine (amLODIPine 10 mg Tab) apixaban (Eliquis 5 mg oral tablet) diltiazem (DilTIAZem (Eqv-Cardizem CD) 120 mg/24 hours oral capsule, extended release) doxazosin (doxazosin 4 mg Tab) empagliflozin (Jardiance 10 mg oral tablet) hydrochlorothiazide (hydrochlorothiazide 25 mg Tab) metformin (MetFORMIN (Eqv-Glucophage XR) 500 mg oral tablet, extended release) metoprolol (metoprolol 100 mg ER Tab) montelukast (montelukast 10 mg Tab) semaglutide (Ozempic 8 mg/3 mL (2 mg dose) subcutaneous solution) spironolactone (spironolactone 25 mg Tab) valsartan (valsartan 160 mg Tab) Procedures Performed Colonoscopy (09/17/2023), Partial nephrectomy. Medications What How Much When Instructions Unchanged amlodipine (amLODIPine 10 mg Tab) 1 Tablets By Mouth Every day Unchanged apixaban (Eliquis 5 mg oral tablet) Unchanged diltiazem (DilTIAZem (Eqv-Cardizem CD) 120 mg/ 24 hours oral capsule, extended release) 1 Capsules By Mouth Every day Unchanged doxazosin (doxazosin 4 mg Tab) 1 Tablets By Mouth Every day Unchanged empagliflozin (Jardiance 10 mg oral tablet) 1 Tablets By Mouth Once a day (in the morning) Unchanged hydrochlorothiazide (hydrochlorothiazide 25 mg Tab) 1 Tablets By Mouth Every day Unchanged metformin (MetFORMIN (Eqv-Glucophage XR) 500 mg oral tablet, extended release) 2 Tablets By Mouth Every day Unchanged metoprolol (metoprolol 100 mg ER Tab) 1.5 Tablets By Mouth Every day Unchanged montelukast (montelukast 10 mg Tab) 1 Tablets By Mouth Every day Unchanged semaglutide (Ozempic 8 mg/ 3 mL (2 mg dose) subcutaneous solution) 2 Milligram Subcutaneous Every week Unchanged spironolactone (spironolactone 25 mg Tab) 1 Tablets By Mouth Every day Unchanged valsartan (valsartan 160 mg Tab) 1 Tablets By Mouth Every day Allergies nitroglycerin (Hypotension) Problems Ongoing - Any problem that you are currently receiving treatment for. Atrial fibrillation BMI 39.0-39.9,adult Class 3 obesity Essential hypertension Neoplasm of kidney Positive fecal occult blood test Type 2 diabetes mellitus Patient Survey You may receive a survey via text or e-mail asking about your office visit. Please share your experience with us by completing your survey. We appreciate your feedback and thank you for choosing us for your care. [facility] General Surgery Office/Clini c Noteon 10-01-2023 General Surgery Office/Clinic Note General Surgery Office/Clinic Note Chief Complaint post operative follow up HPI Staff 14 day post operative follow up post colonoscopy with rectal polypectomy. History of Present Illness s/p colonoscopy with rectal polypectomy for small hyperplastic polyp, also had severe sigmoid diverticulosis; denies abd pain or blood in stools. Review of Systems PHQ Score Initial Depression [...] been reviewed and are negative or noncontributory. Assessment/Plan 1. Sigmoid diverticulosis (K57.30: Diverticulosis of large intestine without perforation or abscess without bleeding) high fiber diet and daily fiber supplement; call with problems/questions. 2. Hyperplastic rectal polyp (K62.1: Rectal polyp) f/u screening colonoscopy in 10 years, call with problems/questions. Follow-up No qualifying data available Problem List/Past Medical History Ongoing Atrial fibrillation BMI 39.0-39.9,adult Class 3 obesity Essential hypertension Hyperplastic rectal polyp Neoplasm of kidney Positive fecal occult blood test Sigmoid diverticulosis Type 2 diabetes mellitus Historical No qualifying data Procedure/Surgical History Colonoscopy (09/17/2023), Partial nephrectomy. Medications amLODIPine 10 mg Tab, 10 mg= 1 tab(s), Oral, Daily DilTIAZem (Eqv-Cardizem CD) 120 mg/24 hours oral capsule, extended release, 120 mg= 1 cap(s), Oral, Daily doxazosin 4 mg Tab, 4 mg= 1 tab(s), Oral, Daily Eliquis 5 mg oral tablet hydrochlorothiazide 25 mg Tab, 25 mg= 1 tab(s), Oral, Daily Jardiance 10 mg oral tablet, 10 mg= 1 tab(s), Oral, qAM MetFORMIN (Eqv-Glucophage XR) 500 mg oral tablet, extended release, 1000 mg= 2 tab(s), Oral, Daily metoprolol 100 mg ER Tab, 150 mg= 1.5 tab(s), Oral, Daily montelukast 10 mg Tab, 10 mg= 1 tab(s), Oral, Daily Ozempic 8 mg/3 mL (2 mg dose) subcutaneous solution, 2 mg, SubCutaneous, qWeek spironolactone 25 mg Tab, 25 mg= 1 tab(s), Oral, Daily valsartan 160 mg Tab, 160 mg= 1 tab(s), Oral, Daily Allergies nitroglycerin (Hypotension) Social History Alcohol - Denies Alcohol Use, 07/14/2023 Substance Abuse - Denies Substance Abuse, 07/14/2023 Tobacco Never (less than 100 in lifetime) Tobacco Use:. Never Smokeless Tobacco Use:., 07/14/2023 Family History Heart disease: Father and Sister. Ovarian cancer: Mother. Normal [facility] Comment on above: Result Comment: Elec troalyshaally Signed By: EVAN SARAH, Tariq Perkins\Date and Time Signed: 10/01/23 20:32 EDT Reminderson 10-01-2023 Reminders Reminders From: Pascale Copeland LPN To: GSN - Clinical; Sent: 10/01/2023 16:00:51 EDT Show up: 08/16/2033 07:00:00 EDT Subject: colonoscopy recall Due Date/Time: 09/16/2033 07:00:00 EDT Reminder/Recall Patient due for screening colonoscopy 09/16/2033. Normal [facility] Pathology Request for Lab Co rpon 09-17-2023 Pathology Request for Lab Jeison Normal [facility] Comment on above: Order Comment: PATHO LOGY GI SPECIMEN Result Comment: See report. Scanned copy available in EMR. PERFORMED BY: [place] [address] PATHOLOGIST [employer] ROSCOE CASTRO M.D. Performed By: #### H S TROP #### [address] XR CHEST (2 VW)on 08-28-2023 XR CHEST [...] Rudi Blackwood MD 08/28/23 Final result Normal [facility] CT ABDOMEN PELVIS W IV CONTR [...] Rogelio Bartlett MD 08/26/23 Final result Normal [facility] BUN + Creatinineon 4 Creatinine [Mass/Vol] 1.3 mg/dL High 0.7-1.2 [facility] Comment on above: Performed By: #### B UNCRT #### [facility] [address] [place] [address] Touch Up Worker: Steve Haro MD #### PSAD #### [facility] [address] [place], [place] [id number] Touch Up Worker: Bk Guerrero MD GFR/1.73 sq M.predicted among non-blacks MDRD (S/P/Bld) [Vol rate/Area] 63 mL/min/{1.73_m2} Normal >60 [facility] Comment on above: Result Comment: These [...] secretion. Performed By: #### B UNCRT #### [address] [place] [id number] Touch Up Worker: Steve Haro MD #### PSAD #### [address] [address] Touch Up Worker: Bk Guerrero MD Urea nitrogen [Mass/Vol] 14 mg/dL Normal 8-23 [facility] Comment on above: Performed By: #### B UNCRT #### [address] [place] [address] Touch Up Worker: Steve Haro MD #### PSAD #### [address] [id number] Touch Up Worker: Bk Guerrero MD PSA, [employer] 08-21-2023 Prostatic Spec. Ag 4.30 ng/mL High 0.00-4.00 [facility] Comment on above: Result Comment: The Luther ECLIA assay is used. Results obtained with different assay methods cannot be used interchangeably. Performed By: #### B UNCRT #### [address] [place], [place] [id number] Touch Up Worker: Steve Haro MD #### PSAD #### [address] [address] Touch Up Worker: Bk Guerrero MD Consent for Procedure/Surger yon 08-06-2023 Consent for Procedure/Surgery [id number]#1.00TIFF [facility] Consent for Treatmenton 07-12 Consent for Treatment [id number]#1.00TIFF [facility] Main OR Preoperative Recordo n 08-04-2023 Main OR Preoperative Record Holding Area Document Type FT Summary Primary Physician: Tariq GORDON MD Finalized Date/Time: 08/04/23 08:14:07 Pt. Name: CLARENCE FLORES/Sex: 1960 Male Med Rec #: [id number] Physician: Tariq GORDON MD Financial #: [id number] Pt. Type: O Room/Bed: / Admit/Disch: 08/04/23 [...] pt taking ozempic less than 7 days prior/STEFANORN Finalized By: Elizabeth Sorto RN Document Signatures Signed By: Elizabeth Sorto RN 08/04/23 07:43 Elizabeth Sorto RN 08/04/23 08:14 [facility] Consent for Procedure/Surger yon 07-15-2023 Consent for Procedure/Surgery [id number]#1.00TIFF [facility] Ambulatory Visit Summaryon 0 07-14-2023 Ambulatory Visit Summary CLARENCE FLORES :1960 Visit Date:07/14/2023 Ambulatory Visit Instructions Your Diagnosis Positive fecal occult blood test Your Care Team Attending Physician - EVAN SARAH, Tariq Bailey Primary Care Physician - Yong SARAH, Shea Referring Physician - Shea Beach MD This Is Your Medications List Contact prescribing [...] for choosing us for your care. Normal [facility] Physician Referralon 024 Physician Referral [id number] Normal [facility] NM Heart Perfusion W stress and W [...] Eric Villa 12/17/2022 5:57 PM Dictation workstation: [id number] [facility] MMODAL Interpreted By: Eric Villa, and Armida Teixeira STUDY: MYOCARDIAL PERFUSION STRESS TEST WITH EXERCISE Performing facility: [facility], [address] [place] [address], [address], [place] [address] [facility] Provider: Chaim Morelos DO, FACC PCP: Dr. Beach Supervising provider: Andra Ramirez RN, TAX MANAGER INDICATION: Chest Pain; HISTORY: Gender: M; Age: 62 y/o ; Height: cm; Weight: kg. Diabetes; Family HX CAD; HTN; SOB; Denies smoking. COMPARISON: No comparison. ACCESSION NUMBER(S): [id number] ORDERING CLINICIAN: MIKE MORELOS TECHNIQUE: TWO DAY [...] There were no evidence of attenuation artifact. MMODAL Eric Villa MD - 12/17/2022 Interpreted By: Eric Villa and Giannuzzi Michael STUDY: MYOCARDIAL PERFUSION STRESS TEST WITH EXERCISE Performing facility: [facility], [address] [place] [address], [address], [address] Provider: Chaim Morelos DO, [facility] PCP: Dr. Beach Supervising provider: Andra Ramirez RN, TAX MANAGER INDICATION: Chest Pain; HISTORY: Gender: M; Age: 62 y/o ; Height: cm; Weight: kg. Diabetes; Family HX CAD; HTN; SOB; Denies smoking. COMPARISON: No comparison. ACCESSION NUMBER(S): [id number] ORDERING CLINICIAN: MIKE MORELOS TECHNIQUE: TWO DAY [...] Eric Villa 12/17/2022 5:57 PM Dictation workstation: [id number] [facility] Work Phone: NM Heart Perfusion W stress and W radionuclide IVOrdered By: Eric Villa on 12-17-2022 [facility] Work Phone: NM Heart Perfusion W stress and W radionuclide Karen 12-16-2022 Radiology Study observation (narrative) [facility] Work Phone: Glucose Poct Glucometerson 1 Glucose [Mass/Vol] 132 mg/dL Normal [facility] Comment on above: Result Comment: [place] Glucose Reference Range is dependent on time and content of last meal. Glucose of more than 200 mg/dL in a nonstressed, ambulatory subject supports the diagnosis of Diabetes Mellitus. PERFORMED BY: [place] [address] PATHOLOGIST [employer] ROS[employer]E CASTRO M.D. Performed By: #### H S TROP #### [address] Glucose [Mass/Vol] 141 mg/dL Normal [facility] Comment on above: Result Comment: [facility] Glucose Reference Range is dependent on time and content of last meal. Glucose of more than 200 mg/dL in a nonstressed, ambulatory subject supports the diagnosis of Diabetes Mellitus. PERFORMED BY: [place] [address] PATHOLOGIST [employer] ROS[employer]E CASTRO M.D. Performed By: #### B MP, CBC, CK, HS TROP, BNP #### [address] ECH echo transthoracicon ECH echo transthoracic [facility] Main [place] [address] [place] [address] Echocardiogram Signed Patient: Clarence Flores MR#: [id number] : 1960 Acct:[id number] Age/Sex: 62 / M ADM Date: 11/10/22 Loc: Room: 4A9910-4 Type: ADM INOo Attending Dr: Moises Carver DO Ordering Provider: Maura Venegas MD Date of [...] 2.8 cm2 JAVIER(V,D): 2.9 cm2 Transcribed By: SCV Performed At: 11/11/22 1126 Signed By: Lalita Capellan MD 11/12/22 [address] [place] [facility] Glucose Poct Glucometerson 1 Glucose [Mass/Vol] 156 mg/dL Normal [facility] Comment on above: Result Comment: [place] om Glucose Reference Range is dependent on time and content of last meal. Glucose of more than 200 mg/dL in a nonstressed, ambulatory subject supports the diagnosis of Diabetes Mellitus. PERFORMED BY: [place] [address] PATHOLOGIST [employer]E CASTRO M.D. Performed By: #### G LULS #### Point of Care testing , Glucose [Mass/Vol] 187 mg/dL Normal [facility] Comment on above: Result Comment: [place] Glucose Reference Range is dependent on time and content of last meal. Glucose of more than 200 mg/dL in a nonstressed, ambulatory subject supports the diagnosis of Diabetes Mellitus. PERFORMED BY: [place] [address] PATHOLOGIST [employer] ROSCOE CASTRO M.D. Performed By: #### B MP, CBC, CK, HS TROP, BNP #### [address] Glucose [Mass/Vol] 162 mg/dL Normal [facility] Comment on above: Result Comment: [place] Glucose Reference Range is dependent on time and content of last meal. Glucose of more than 200 mg/dL in a nonstressed, ambulatory subject supports the diagnosis of Diabetes Mellitus. PERFORMED BY: [address] [place] [address] PATHOLOGIST [employer] ROSCOE CASTRO M.D. Performed By: #### B MP, CBC, CK, HS TROP, BNP #### [facility] [address] [place] [id number] [place] A1C with Estimated Average G alenan 2022 Glucose [Mass/Vol] 157 mg/dL Normal [facility] Comment on above: Order Comment: Comme nt add Result Comment: PERF ORMED BY: [address] [place] [address] PATHOLOGIST [employer] ROSCOE CASTRO M.D. Performed By: #### H S TROP #### [address] HbA1c (Bld) [Mass fraction] 7.1 % High 4.3-5.6 [facility] Comment on above: Order Comment: Comme nt add Result Comment: Incr eased risk for diabetes: 5.7 - 6.4 diabetes: >6.4 glycemic control for adults with diabetes: <7.0 Performed By: #### H S TROP #### [address] Activated partial thrombopla stin time (aPTT) in platelet poor plasma by coagulation aOrdered By: Damien Hercules on 2022 aPTT Coag (PPP) [Time] 29.0 s 25.1-36.5 [facility] Comment on above: A hematocrit value g reater than 55% may lead to inaccurate results in coagulation testing. Patients having hematocrit values >55% require a special collection tube for coagulation studies. Please contact the laboratory at [phone] for redraw instructions. Automated basophil %Ordered By: Damien Hercules on 2022 Basophils/100 WBC (Bld) 1.0 % Normal . [facility] Comment on above: Performed By: #### B MP, CBC, CK, HS TROP, BNP #### [address] Automated basophil countOrde red By: Damien Hercules on 2022 Basophils (Bld) [#/Vol] 0.1 10*3/uL Normal 0.0-0.2 [facility] Comment on above: Result Comment: PERF ORMED BY: [place] [address] PATHOLOGIST [employer] ROSCOE CASTRO M.D. Performed By: #### B MP, CBC, CK, HS TROP, BNP #### [address] Automated blood monocyte cou ntOrdered By: Damien Hercules on 2022 Monocytes (Bld) [#/Vol] 0.8 10*3/uL Normal 0.0-0.8 [facility] Comment on above: Performed By: #### B MP, CBC, CK, HS TROP, BNP #### [address] Automated eosinophil %Ordere d By: Damien Hercules on 2022 Eosinophils/100 WBC (Bld) 2.9 % Normal . [facility] Comment on above: Performed By: #### B MP, CBC, CK, HS TROP, BNP #### [address] Automated eosinophil countOr dered By: Damien Hercules on 2022 Eosinophils (Bld) [#/Vol] 0.3 10*3/uL Normal 0.0-0.45 [facility] Comment on above: Performed By: #### B MP, CBC, CK, HS TROP, BNP #### [address] Automated monocyte %Ordered By: Damien Hercules on 2022 Monocytes/100 WBC (Bld) 9.2 % Normal . [facility] Comment on above: Performed By: #### B MP, CBC, CK, HS TROP, BNP #### [address] Automated neutrophil %Ordere d By: Damien Hercules on 2022 Neutrophils/100 WBC (Bld) 67.2 % Normal . [facility] Comment on above: Performed By: #### B MP, CBC, CK, HS TROP, BNP #### [address] BNP ser/plasOrdered By: Ashley Hercules on 2022 Natriuretic peptide B (Bld) [Mass/Vol] 101.0 pg/mL High 5-100 [facility] Comment on above: Result Comment: PERF ORMED BY: [place] [address] PATHOLOGIST [employer] ROSCOE CASTRO M.D. Performed By: #### B MP, CBC, CK, HS TROP, BNP #### [address] Basic Metabolic Panelon 10-0 Anion gap [Moles/Vol] 11.3 mmol/L Normal 6.0-15.0 [facility] Comment on above: Performed By: #### B MP #### [address] Calcium [Mass/Vol] 9.2 mg/dL Normal 8.6-10.3 [facility] Comment on above: Performed By: #### B MP #### [address] Chloride [Moles/Vol] 106 mmol/L Normal 98-107 [facility] Comment on above: Performed By: #### B MP #### [address] CO2 [Moles/Vol] 25.2 mmol/L Normal 21.0-31.0 [facility] Comment on above: Performed By: #### B MP #### [address] Creatinine [Mass/Vol] 1.22 mg/dL Normal 0.70-1.30 [facility] Comment on above: Performed By: #### B MP #### [address] Creatinine Clr Calc Pharmacy 82.15 Normal [facility] Comment on above: Result Comment: PERF ORMED BY: [place] [address] PATHOLOGIST [employer] ROSCOE CASTRO M.D. Performed By: #### B MP #### [place] [address] [place] GFR/1.73 sq M.predicted MDRD (S/P/Bld) [Vol rate/Area] mL/min/{1.73_m2} Normal [facility] Comment on above: Performed By: #### B MP #### [address] Glucose [Mass/Vol] 298 mg/dL Significant change up 70-100 [facility] Comment on above: Result Comment: [facility] Glucose Reference Range is dependent on time and content of last meal. Glucose of more than 200 mg/dL in a nonstressed, ambulatory subject supports the diagnosis of Diabetes Mellitus. ADA recommended reference range Performed By: #### B MP #### [address] Potassium [Moles/Vol] 3.5 mmol/L Normal 3.5-5.1 [facility] Comment on above: Performed By: #### B MP #### [address] Sodium [Moles/Vol] 139 mmol/L Normal 136-145 [facility] Comment on above: Performed By: #### B MP #### [address] Urea nitrogen [Mass/Vol] 13 mg/dL Normal 7-25 [facility] Comment on above: Performed By: #### B MP #### [place] [address] [place] Creatinine Clr Calc Pharmacy 72.10 Normal [facility] Comment on above: Result Comment: PERF ORMED BY: [place] [address] PATHOLOGIST [employer] ROSCOE CASTRO M.D. Performed By: #### B MP, CBC, CK, HS TROP, BNP #### [place] [address] [place] GFR/1.73 sq M.predicted MDRD (S/P/Bld) [Vol rate/Area] 58.037 mL/min/{1.73_m2} Normal [facility] Comment on above: Performed By: #### B MP, CBC, CK, HS TROP, BNP #### [place] [address] [place] Calcium [Mass/volume] in Ser um or PlasmaOrdered By: Damien Hercules on 2022 Calcium [Mass/Vol] 9.0 mg/dL Normal 8.6-10.3 [facility] Comment on above: Performed By: #### B MP, CBC, CK, HS TROP, BNP #### [address] Carbon dioxide, total [Moles /volume] in Serum or PlasmaOrdered By: Damien Hercules on 2022 CO2 [Moles/Vol] 26.2 mmol/L Normal 21.0-31.0 [facility] Comment on above: Performed By: #### B MP, CBC, CK, HS TROP, BNP #### [address] Chloride [Moles/volume] in S luke or PlasmaOrdered By: Damien Hercules on 2022 Chloride [Moles/Vol] 106 mmol/L Normal 98-107 [facility] Comment on above: Performed By: #### B MP, CBC, CK, HS TROP, BNP #### [address] Coagulation Profileon 2022 aPTT Coag (Bld) [Time] 29.0 s Normal 25.1-36.5 [facility] Comment on above: Order Comment: REDRA W Result Comment: A he matocrit value greater than 55% may lead to inaccurate results in coagulation testing. Patients having hematocrit values >55% require a special collection tube for coagulation studies. Please contact the laboratory at [phone] for redraw instructions. PERFORMED BY: [place] [address] PATHOLOGIST [employer] ROSCOE CASTRO M.D. Performed By: #### H S TROP #### [address] Complete Blood Count Auto Di ffon 2022 Mean Corpuscular HGB Conc 34.3 g/dL Normal 32.5-35.6 [facility] Comment on above: Performed By: #### B MP, CBC, CK, HS TROP, BNP #### [address] Monocytes/100 WBC (Bld) 20.13 % High 0.00-20.00 [facility] Comment on above: Result Comment: For adults in ED, MDW > 20.0 may be associated with a higher risk of sepsis during the first 12 hrs of hospital admission Performed By: #### B MP, CBC, CK, HS TROP, BNP #### [address] NRBC% 0.1 /100{WBC} Normal 0-0.5 [facility] Comment on above: Performed By: #### B MP, CBC, CK, HS TROP, BNP #### [address] Creatine kinase [Enzymatic a ctivity/volume] in Serum or PlasmaOrdered By: Damien Hercules on 2022 CK [Catalytic activity/Vol] 111 U/L Normal 30-223 [facility] Comment on above: Performed By: #### B MP, CBC, CK, HS TROP, BNP #### [address] Creatinine [Mass/volume] in Serum or PlasmaOrdered By: Damien Hercules on 2022 Creatinine [Mass/Vol] 1.39 mg/dL High 0.70-1.30 [facility] Comment on above: Performed By: #### B MP, CBC, CK, HS TROP, BNP #### [address] Erythrocyte distribution wid th [Ratio] by Automated countOrdered By: Damien Hercules on 2022 Erythrocyte distribution width (RBC) [Ratio] 14.8 % Normal 12.0-14.8 [facility] Comment on above: Performed By: #### B MP, CBC, CK, HS TROP, BNP #### [place] [address] [place] Erythrocytes [#/volume] in B lood by Automated countOrdered By: Damien Hercules on 2022 RBC (Bld) [#/Vol] 5.21 10*6/uL Normal 3.90-5.60 [facility] Comment on above: Performed By: #### B MP, CBC, CK, HS TROP, BNP #### [facility] [address] Glucose Poct Glucometerson 1 Glucose [Mass/Vol] 193 mg/dL Normal [facility] Comment on above: Result Comment: [place] om Glucose Reference Range is dependent on time and content of last meal. Glucose of more than 200 mg/dL in a nonstressed, ambulatory subject supports the diagnosis of Diabetes Mellitus. PERFORMED BY: [place] [address] PATHOLOGIST [employer] ROSCOE CASTRO M.D. Performed By: #### B MP, CBC, CK, HS TROP, BNP #### [place] [id number] [facility] Glucose [Mass/Vol] 219 mg/dL Normal [facility] Comment on above: Result Comment: [place] om Glucose Reference Range is dependent on time and content of last meal. Glucose of more than 200 mg/dL in a nonstressed, ambulatory subject supports the diagnosis of Diabetes Mellitus. PERFORMED BY: [place] [address] PATHOLOGIST [employer] ROSCOE CASTRO M.D. Performed By: #### H S TROP #### [address] Glucose [Mass/Vol] 388 mg/dL Normal [facility] Comment on above: Result Comment: [place] om Glucose Reference Range is dependent on time and content of last meal. Glucose of more than 200 mg/dL in a nonstressed, ambulatory subject supports the diagnosis of Diabetes Mellitus. PERFORMED BY: [place] [id number] PATHOLOGIST [employer]COE CASTRO M.D. Performed By: #### H S TROP #### [address] Commemt1 Glu2: Cleaned Meter Normal [facility] Comment on above: Result Comment: PERF ORMED BY: [place] [id number] PATHOLOGIST [employer] ROSCOE CASTRO M.D. Performed By: #### G MECCA #### Point of Care testing , Glucose [Mass/Vol] 250 mg/dL Normal [facility] Comment on above: Result Comment: [place] om Glucose Reference Range is dependent on time and content of last meal. Glucose of more than 200 mg/dL in a nonstressed, ambulatory subject supports the diagnosis of Diabetes Mellitus. Performed By: #### G MECCA #### Point of Care testing , Glucose [Mass/volume] in Ser um or PlasmaOrdered By: Damien Hercules on 2022 Glucose [Mass/Vol] 170 mg/dL High 70-100 [facility] Comment on above: ADA recommended refe rence rangeRandom Glucose Reference Range is dependent on time and content of last meal. Glucose of more than 200 mg/dL in a nonstressed, ambulatory subject supports the diagnosis of Diabetes Mellitus. Result Comment: Biddle om Glucose Reference Range is dependent on time and content of last meal. Glucose of more than 200 mg/dL in a nonstressed, ambulatory subject supports the diagnosis of Diabetes Mellitus. ADA recommended reference range Performed By: #### B MP, CBC, CK, HS TROP, BNP #### [address] Hematocrit [Volume Fraction] of Blood by Automated countOrdered By: Damien Hercules on 2022 Hematocrit (Bld) [Volume fraction] 43.8 % Normal 38.8-50.0 [facility] Comment on above: Performed By: #### B MP, CBC, CK, HS TROP, BNP #### [facility] [address] [id number] [place] Hemoglobin [Mass/volume] in BloodOrdered By: Damien Hercules on 2022 Hemoglobin (Bld) [Mass/Vol] 15.0 g/dL Normal 13.0-17.0 [facility] Comment on above: Performed By: #### B MP, CBC, CK, HS TROP, BNP #### [facility] [address] [id number] [place] INR in Platelet poor plasma by Coagulation assayOrdered By: Damien Hercules on 2022 INR Coag (PPP) [Relative time] 1.0 {INR} Normal [facility] Comment on above: INR Therapeutic Rang e A) Pre- and Peroperative OAT started two weeks before surgery. NOT HIP SURGERY: 1.5 - 2.5 HIP SURGERY: 2 - 3B) Primary and secondary prevention of venous THROMBOSIS: 2 - 3C) Active venous thrombosis, pulmonary embolismand prevention of recurrent venous thrombosis: 2 - 3D) Prevention of arterial thromboembolismincluding patients with mechanical heart valves: 3 - 4.5 Order Comment: REDRA W Result Comment: INR [...] valves: 3 - 4.5 Performed By: #### H S TROP #### [facility] [address] [place] [address] Leukocytes [#/volume] correc susan for nucleated erythrocytes in Blood by Automated counOrdered By: Damien Hercules on 2022 WBC corrected for nucl RBC Auto (Bld) [#/Vol] 9.2 10*3/uL 4.1-10.5 [facility] Leukocytes [#/volume] in Blo od by Automated countOrdered By: Damien Hercules on 2022 WBC (Bld) [#/Vol] 9.2 10*3/uL Normal 4.1-10.5 [facility] Comment on above: Performed By: #### B MP, CBC, CK, HS TROP, BNP #### [facility] [address] Lipid Panelon 2022 Cholesterol [Mass/Vol] 143 mg/dL Normal 140-200 [facility] Comment on above: Order Comment: Comme nt add Result Comment: Chol less than 200 mg/dl low risk Chol 201-239 mg/dl borderline risk Chol 240 mg/dl and greater high risk Performed By: #### H S TROP #### [place] [address] [place] Cholesterol in HDL [Mass/Vol] 29 mg/dL Normal 23-92 [facility] Comment on above: Order Comment: Comme nt add Result Comment: HDL CHOL ATP-III CLASSIFICATION Cardiovascular Risk HDL > or equal to 60 mg/dL LOW HDL < 40 mg/dL HIGH Performed By: #### H S TROP #### [address] Cholesterol.total/Chol esterol in HDL [Mass ratio] 4.9 {ratio} Normal <5.0 [facility] Comment on above: Order Comment: Comme nt add Result Comment: PERF ORMED BY: [place] [address] PATHOLOGIST [employer] ROSCOE CASTRO M.D. Performed By: #### H S TROP #### [address] LDL Cholesterol,Calculated 87 mg/dL Normal 0-100 [facility] Comment on above: Order Comment: Comme nt add Result Comment: LDL ATP III CLASSIFICATION LDL less than 100 mg/dL Optimal LDL 100-129 mg/dL Near or above optimal LDL 130-159 mg/dL Borderline high LDL 160-189 mg/dL High LDL greater than 189 mg/dL Very high Performed By: #### H S TROP #### [address] Triglyceride w/Reflex 133 mg/dL Normal 0-149 [facility] Comment on above: Order Comment: Comme nt add Result Comment: TRIG ATP III CLASSIFICATION TRIG less than 150 mg/dL Normal TRIG 150-199 mg/dL Borderline high TRIG 200-500 mg/dL High TRIG greater than 500 mg/dL Very high Standard traceable to the Center for Disease Conrtrol and Prevention (CDC) test method. Performed By: #### H S TROP #### [address] VLDL CHOLESTEROL 26 mg/dL Normal [facility] Comment on above: Order Comment: Comme nt add Performed By: #### H S TROP #### [address] [place] [address] [place] Lymphocytes [#/volume] in Bl ood by Automated countOrdered By: Damien Hercules on 2022 Lymphocytes (Bld) [#/Vol] 1.8 10*3/uL Normal 1.00-4.8 [facility] Comment on above: Performed By: #### B MP, CBC, CK, HS TROP, BNP #### [address] Lymphocytes/100 leukocytes i n Blood by Automated countOrdered By: Damien Hercules on 2022 Lymphocytes/100 WBC (Bld) 19.7 % Normal . [facility] Comment on above: Performed By: #### B MP, CBC, CK, HS TROP, BNP #### [address] MCH [Entitic mass] by Automa susan countOrdered By: Damien Hercules on 2022 MCH (RBC) [Entitic mass] 28.8 pg Normal 27.5-35.2 [facility] Comment on above: Performed By: #### B MP, CBC, CK, HS TROP, BNP #### [address] MCHC Auto (RBC) [Mass/Vol]Or dered By: Damien Hercules on 2022 MCHC (RBC) [Mass/Vol] 34.3 g/dL 32.5-35.6 [facility] MCV [Entitic volume] by Auto mated countOrdered By: Damien Hercules on 2022 MCV (RBC) [Entitic vol] 84.1 fL Normal 83.5-101 [facility] Comment on above: Performed By: #### B MP, CBC, CK, HS TROP, BNP #### [address] Monocyte distribution width [Entitic volume] in Blood by AutomatedOrdered By: Damien Hercules on 2022 Monocyte distribution width Auto (Bld) [Entitic vol] 20.13 % 0.00-20.00 [facility] Comment on above: For adults in ED, MD W > 20.0 may be associated with a higher risk of sepsis during the first 12 hrs of hospital admission Neutrophils [#/volume] in Bl ood by Automated countOrdered By: Damien Hercules on 2022 Neutrophils (Bld) [#/Vol] 6.2 10*3/uL Normal 1.8-7.7 [facility] Comment on above: Performed By: #### B MP, CBC, CK, HS TROP, BNP #### [facility] [address] [place] [address] No Panel InformationOrdered By: Damien Hercules on 2022 Estimated GFR (CKD-EPI) 58.037 mL/Min [facility] Creatinine Clearance (Chem 72.10 [facility] Nucleated erythrocytes [Pres ence] in Blood by Automated countOrdered By: Damien Hercules on 2022 Nucleated RBC Auto Ql (Bld) 0.1 /100{WBC} 0-0.5 [facility] Platelet mean volume [Entiti c volume] in Blood by Automated countOrdered By: Damien Hercules on 2022 Platelet mean volume (Bld) [Entitic vol] 7.7 fL Normal 6.6-10.1 [facility] Comment on above: Performed By: #### B MP, CBC, CK, HS TROP, BNP #### [facility] [address] [place] [address] Platelets [#/volume] in Bloo d by Automated countOrdered By: Damien Hercules on 2022 Platelets (Bld) [#/Vol] 194 10*3/uL Normal 150-450 [facility] Comment on above: Performed By: #### B MP, CBC, CK, HS TROP, BNP #### [facility] [address] [place] [address] Potassium [Moles/volume] in Serum or PlasmaOrdered By: Damien Hercules on 2022 Potassium [Moles/Vol] 3.6 mmol/L Normal 3.5-5.1 [facility] Comment on above: Performed By: #### B MP, CBC, CK, HS TROP, BNP #### [address] Prothrombin time (PT)Ordered By: Damien Hercules on 2022 PT Coag (PPP) [Time] 12.4 s Normal 9.0-12.9 [facility] Comment on above: A hematocrit value g reater than 55% may lead to inaccurate results in coagulation testing. Patients having hematocrit values >55% require a special collection tube for coagulation studies. Please contact the laboratory at [phone] for redraw instructions. Order Comment: REDRA W Result Comment: A he matocrit value greater than 55% may lead to inaccurate results in coagulation testing. Patients having hematocrit values >55% require a special collection tube for coagulation studies. Please contact the laboratory at [phone] for redraw instructions. Performed By: #### H S TROP #### [address] Serum or plasma anion gap de terminationOrdered By: Damien Hercules on 2022 Anion gap [Moles/Vol] 10.4 mmol/L Normal 6.0-15.0 [facility] Comment on above: Performed By: #### B MP, CBC, CK, HS TROP, BNP #### [address] Sodium [Moles/volume] in Ser um or PlasmaOrdered By: Damien Hercules on 2022 Sodium [Moles/Vol] 139 mmol/L Normal 136-145 [facility] Comment on above: Performed By: #### B MP, CBC, CK, HS TROP, BNP #### [place] [address] [place] Troponin I High Sensitivityo n 2022 Troponin I High Sensitivity 10.1 pg/mL Normal 0.0-20.0 [facility] Comment on above: Result Comment: PERF ORMED BY: [place] [address] PATHOLOGIST [employer] ROSCOE CASTRO M.D. Performed By: #### H S TROP #### [address] Troponin I High Sensitivity 13.0 pg/mL Normal 0.0-20.0 [facility] Comment on above: Result Comment: PERF ORMED BY: [place] [address] PATHOLOGIST [employer] ROSCOE CASTRO M.D. Performed By: #### H S TROP #### [address] Troponin I High Sensitivity 15.8 pg/mL Normal 0.0-20.0 [facility] Comment on above: Result Comment: PERF ORMED BY: [place] [address] PATHOLOGIST [employer] ROSCOE CASTRO M.D. Performed By: #### B MP, CBC, CK, HS TROP, BNP #### [address] Troponin I.cardiac [Mass/vol ume] in Serum or Plasma by Detection limit <= 0.01 ng/Ordered By: Damien Hercules on 2022 Troponin I.cardiac DL <= 0.01 ng/mL [Mass/Vol] 15.8 pg/mL 0.0-20.0 [facility] Urea nitrogen [Mass/volume] in Serum or PlasmaOrdered By: Damien Hercules on 2022 Urea nitrogen [Mass/Vol] 14 mg/dL Normal 7-25 [facility] Comment on above: Performed By: #### B MP, CBC, CK, HS TROP, BNP #### [address] XR chest 2V*on 2022 XR chest 2V* [facility] [place] [address] [place] [address] XRay Report Signed Patient: Clarence Flores MR#: [id number] : 1960 Acct:[id number] Age/Sex: 62 / M ADM Date: 11/10/22 Loc: Room: 8B0132-0 Type: ADM INOo Attending Dr: Maura Venegas [...] Oreilly Jr., D.O.11/10/2022 10:13 AM Dictation Location: [facility]15 Transcribed By: [facility] 11/10/22 1013 Dictated By: Ruel Oreilly Jr, DO 11/10/22 1012 Signed By: 11/10/22 1013 Normal [facility] ECG 12 lead ECGon 11-09-2022 ECG 12 lead ECG [facility] [place] [address] Electrocardiograph Report Signed Patient: Clarence Flores MR#: [id number] : 1960 Acct:[id number] Age/Sex: 61 / M ADM Date: 11/10/22 Loc: Room: [address] [place] [address] Type: ADM INOo Attending Dr: Derick Gomes MD Ordering Provider: Damien Herculse DO Date of Service: 11/09/22 ECG/ECG 12 [...] Signed By Damien Hercules DO 0605 Normal [facility] CBC AUTO DIFFon 11-24-2021 BASO # 0.0 103/ul Normal 0.0-0.1 [facility] Comment on above: Performed By: #### C BC #### [facility] [address] [place] [address] Dr. Sunny Ortez Basophils/100 WBC (Bld) 0.5 % Normal 0.2-2.0 [facility] Comment on above: Performed By: #### C BC #### [facility] [address] [place] [address] Dr. Sunny Ortez EO # 0.4 103/ul Normal 0.0-0.7 [facility] Comment on above: Performed By: #### C BC #### [facility] [address] [place] [address] Dr. Sunny Ortez Eosinophils/100 WBC (Bld) 4.6 % Normal 0.9-7.0 [facility] Comment on above: Performed By: #### C BC #### [facility] [address] [place] [address] Dr. Sunny Ortez Erythrocyte distribution width (RBC) [Ratio] 14.2 % Normal 11.0-15.0 [facility] Comment on above: Performed By: #### C BC #### [facility] [address] [place] [address] Dr. Sunny Ortez Hematocrit (Bld) [Volume fraction] 45.8 % Normal 42.0-54.0 [facility] Comment on above: Performed By: #### C BC #### [facility] [address] [place] [address] Dr. Sunny Ortez Hemoglobin (Bld) [Mass/Vol] 15.1 g/dL Normal 14.0-18.0 [facility] Comment on above: Performed By: #### C BC #### [facility] [address] [place] [address] Dr. Sunny Ortez IG # 0.02 10e3/ul Normal 0.00-0.03 [facility] Comment on above: Performed By: #### C BC #### [facility] [address] [place] [address] Dr. Sunny Ortez IG % 0.2 % Normal 0.0-0.5 [facility] Comment on above: Performed By: #### C BC #### [facility] [address] [place] [address] Dr. Sunny Ortez LYMPH # 1.7 103/ul Normal 1.2-3.8 [facility] Comment on above: Performed By: #### C BC #### [facility] [address] [place] [address] Dr. Sunny Ortez Lymphocytes/100 WBC (Bld) 20.2 % Critically low 20.5-60.0 [facility] Comment on above: Performed By: #### C BC #### [facility] [address] [place] [address] Dr. Sunny Ortez MANUAL DIFF REQ NO Normal [facility] Comment on above: Performed By: #### C BC #### [facility] [address] [place] [address] Dr. Sunny Ortez MCH (RBC) [Entitic mass] 27.7 pg Normal 25.9-34.0 [facility] Comment on above: Performed By: #### C BC #### [facility] [address] [place] [address] Dr. Sunny Ortez MCHC (RBC) [Mass/Vol] 33.0 g/dL Normal 29.9-35.2 [facility] Comment on above: Performed By: #### C BC #### [facility] [address] [place] [address] Dr. Sunny Ortez MCV (RBC) [Entitic vol] 83.9 fL Normal 80.0-94.0 [facility] Comment on above: Performed By: #### C BC #### [facility] [address] [place] [address] Dr. Sunny Ortez MONO # 0.7 103/ul Normal 0.3-0.8 [facility] Comment on above: Performed By: #### C BC #### [facility] [address] [place] [address] Dr. Sunny Ortez Monocytes/100 WBC (Bld) 8.0 % Normal 1.7-12.0 [facility] Comment on above: Performed By: #### C BC #### [facility] [address] [place] [address] Dr. Sunny Ortez NEUT # 5.6 103/ul Normal 1.4-6.5 [facility] Comment on above: Performed By: #### C BC #### [facility] [address] [place] [address] Dr. Sunny Ortez Neutrophils/100 WBC (Bld) 66.5 % Normal 43.0-75.0 [facility] Comment on above: Performed By: #### C BC #### [facility] [address] [place] [address] Dr. Sunny Ortez Platelet mean volume (Bld) [Entitic vol] 9.1 fL Critically low 9.5-13.5 [facility] Comment on above: Performed By: #### C BC #### [facility] [address] [place] [address] Dr. Sunny Ortez PLT 215 103/ul Normal 150-450 [facility] Comment on above: Performed By: #### C BC #### [facility] [address] [place] [address] Dr. Sunny Ortez RBC 5.46 106/ul Normal 4.70-6.10 [facility] Comment on above: Performed By: #### C BC #### [facility] [address] [place] [address] Dr. Sunny Ortez WBC 8.4 103/ul Normal 4.0-11.0 [facility] Comment on above: Performed By: #### C BC #### [facility] [address] [place] [address] Dr. Sunny Ortez GLYCOHEMOGLOBIN A1Con 2021 ADA RECOMMENDATION SEE BELOW Normal [facility] Comment on above: Result Comment: ADA RECOMMENDED LIMIT 4.0 - 6.0 ADA THERAPEUTIC TARGET < 7.0 ACTION SUGGESTED > 7.0 Performed By: #### A 1C #### [facility] [address] [place] [address] Dr. Sunny Ortez Glucose [Mass/Vol] 117 mg/dL Normal [facility] Comment on above: Performed By: #### A 1C #### [facility] [address] [place] [address] Dr. Sunny Ortez HbA1c (Bld) [Mass fraction] 5.7 % Normal 4.5-6.2 [facility] Comment on above: Performed By: #### A 1C #### [facility] [address] [place] [address] Dr. Sunny Ortez PROF 14(COMP METB)on 022 Albumin [Mass/Vol] 3.7 g/dL Normal 3.4-5.0 [facility] Comment on above: Performed By: #### C MP #### [facility] [address] [place] [address] Dr. Sunny Ortez Albumin/Globulin [Mass ratio] 1.0 {ratio} Normal [facility] Comment on above: Performed By: #### C MP #### [facility] [address] [place] [address] Dr. Sunny Ortez ALP [Catalytic activity/Vol] 61 U/L Normal 46-116 [facility] Comment on above: Performed By: #### C MP #### [facility] [address] [place] [address] Dr. Sunny Ortez ALT [Catalytic activity/Vol] 42 U/L Normal 16-63 [facility] Comment on above: Performed By: #### C MP #### [facility] [address] [place] [address] Dr. Sunny Ortez Anion gap [Moles/Vol] 8.1 mmol/L Normal [facility] Comment on above: Performed By: #### C MP #### [facility] [address] [place] [address] Dr. Sunny Ortez AST [Catalytic activity/Vol] 28 U/L Normal 15-37 [facility] Comment on above: Performed By: #### C MP #### [facility] [address] [place] [address] Dr. Sunny Ortez Bilirubin [Mass/Vol] 0.5 mg/dL Normal 0.2-1.0 [facility] Comment on above: Performed By: #### C MP #### [facility] [address] [place] [address] Dr. Sunny Ortez Calcium [Mass/Vol] 8.7 mg/dL Normal 8.5-10.1 [facility] Comment on above: Performed By: #### C MP #### [facility] [address] [address] [address] Sunny Ortez Chloride [Moles/Vol] 107 mmol/L Normal 98-107 [facility] Comment on above: Performed By: #### C MP #### [facility] [address] [place] [address] Dr. Sunny Ortez CO2 [Moles/Vol] 30.0 mmol/L Normal 21.0-32.0 [facility] Comment on above: Performed By: #### C MP #### [facility] [address] [place] [address] Dr. Sunny Ortez Creatinine [Mass/Vol] 1.29 mg/dL Normal 0.70-1.30 [facility] Comment on above: Performed By: #### C MP #### [facility] [address] [place] [address] Dr. Sunny Ortez EGFR-AF SWEDISH >60 Normal >=60 [facility] Comment on above: Performed By: #### C MP #### [facility] [address] [place] [address] Dr. Sunny Ortez EGFR-NON AF SWEDISH 57 mL/min/1.73m2 Critically low >=60 [facility] Comment on above: Performed By: #### C MP #### [facility] [address] [place] [address] Dr. Sunny Ortez Globulin (S) [Mass/Vol] 3.7 g/dL Normal [facility] Comment on above: Performed By: #### C MP #### [facility] [address] [place] [address] Dr. Sunny Ortez Glucose [Mass/Vol] 108 mg/dL Critically high 74-106 [facility] Comment on above: Performed By: #### C MP #### [facility] [address] [place] [address] Dr. Sunny Ortez Potassium [Moles/Vol] 4.1 mmol/L Normal 3.5-5.1 [facility] Comment on above: Performed By: #### C MP #### [facility] [address] [place] [address] Dr. Sunny Ortez Protein [Mass/Vol] 7.4 g/dL Normal 6.4-8.2 [facility] Comment on above: Performed By: #### C MP #### [facility] [address] [place] [address] Dr. Sunny Ortez Sodium [Moles/Vol] 141 mmol/L Normal 136-145 [facility] Comment on above: Performed By: #### C MP #### [facility] [address] [place] [address] Dr. Sunny Ortez Urea nitrogen [Mass/Vol] 16.0 mg/dL Normal 7.0-18.0 [facility] Comment on above: Performed By: #### C MP #### [facility] [address] [place] [address] Dr. Sunny Ortez Urea nitrogen/Creatinine [Mass ratio] 12.4 mg/mg Normal [facility] Comment on above: Performed By: #### C MP #### [facility] [address] [place] [address] Dr. Sunny Ortez OCC BLD IMMUNO SCREENon 10-12 OCCULT BLOOD Negative Normal NEGATIVE [facility] Comment on above: Performed By: #### O BSCRN #### [facility] [address] [place] [address] Dr. Sunny Ortez Covid-19 PCR ([facility])on 10-12 SARS-CoV-2 (COVID-19) RNA RENÉE+probe Ql (Unsp spec) Not detected Normal NOT DETECTED [facility] Comment on above: Result Comment: [...] for this test is supported by the Vice President [employer] of [employer] and Human Service's declaration that [...] used). Performed By: #### C MP #### [facility] [address] [place] [address] Dr. Sunny Ortez MRI ABDOMEN W CONon [...] ELVIN JENKINS Date: 2021-05-06 07:49 Normal [facility] CREATININEon 05-04-2021 Creatinine [Mass/Vol] 1.37 mg/dL Critically high 0.66-1.25 [facility] Comment on above: Performed By: #### C ALISHA #### [facility] [address] [address] [address] Sunny Ortez EGFR-AF SWEDISH >60 Normal >=60 [facility] Comment on above: Performed By: #### C ALISHA #### [facility] [address] [address] [address] Sunny Ortez EGFR-NON AF SWEDISH 53 mL/min/1.73m2 Critically low >=60 [facility] Comment on above: Performed By: #### C ALISHA #### [facility] [address] [address] [address] Sunny Ortez CREATININEon 04-12-2021 Creatinine [Mass/Vol] 1.28 mg/dL Critically high 0.66-1.25 [facility] Comment on above: Performed By: #### C ALISHA #### [facility] [address] [address] [address] Sunny Ortez EGFR-AF SWEDISH >60 Normal >=60 [facility] Comment on above: Performed By: #### C ALISHA #### [facility] [address] [address] [address] Sunny Ortez EGFR-NON AF SWEDISH 58 mL/min/1.73m2 Critically low >=60 [facility] Comment on above: Performed By: #### C ALISHA #### [facility] [address] [place] [address] Dr. Sunny Ortez MRI ABDOMEN WO CONon [...] STEVE COLLADO Date: 2021-04-12 14:39 Normal [facility] CT ABD/PELV W CONon 03-28-[address] [...] mild inflammatory changes. Consider cystitis Normal [facility] INSULINon 03-26-2021 Insulin 30.7 uIU/mL Critically high 2.6-24.9 [facility] Comment on above: Performed By: #### I NSULIN #### [facility] [address] [place], [place] [address] Dr. Sunny Ortez XR KNEE LT 4V [...] STEVE PALACIOS Date: 2021-03-25 17:14 Normal [facility] BNPon 03-24-2021 Natriuretic peptide B (Bld) [Mass/Vol] 202.0 pg/mL Normal <=900.0 [facility] Comment on above: Performed By: #### C MP #### [facility] [address] [place] [address] Dr. Sunny Ortez CBC AUTO DIFFon 03-24-2021 BASO # 0.1 103/ul Normal 0.0-0.1 [facility] Comment on above: Performed By: #### C BC #### [facility] [address] [place] [address] Dr. Sunny Ortez Basophils/100 WBC (Bld) 0.8 % Normal 0.2-2.0 [facility] Comment on above: Performed By: #### C BC #### [facility] [address] [place] [address] Dr. Sunny Ortez EO # 0.5 103/ul Normal 0.0-0.7 [facility] Comment on above: Performed By: #### C BC #### [facility] [address] [place] [address] Dr. Sunny Ortez Eosinophils/100 WBC (Bld) 4.6 % Normal 0.9-7.0 [facility] Comment on above: Performed By: #### C BC #### [facility] [address] [place] [address] Dr. Sunny Ortez Erythrocyte distribution width (RBC) [Ratio] 13.6 % Normal 11.0-15.0 [facility] Comment on above: Performed By: #### C BC #### [facility] [address] [place] [address] Dr. Sunny Ortez Hematocrit (Bld) [Volume fraction] 45.6 % Normal 42.0-54.0 [facility] Comment on above: Performed By: #### C BC #### [facility] [address] [place] [address] Dr. Sunny Ortez Hemoglobin (Bld) [Mass/Vol] 15.2 g/dL Normal 14.0-18.0 [facility] Comment on above: Performed By: #### C BC #### [facility] [address] [place] [address] Dr. Sunny Ortez IG # 0.04 10e3/ul Critically high 0.00-0.03 [facility] Comment on above: Performed By: #### C BC #### [facility] [address] [place] [address] Dr. Sunny Ortez IG % 0.4 % Normal 0.0-0.5 [facility] Comment on above: Performed By: #### C BC #### [facility] [address] [place] [address] Dr. Sunny Ortez LYMPH # 1.9 103/ul Normal 1.2-3.8 [facility] Comment on above: Performed By: #### C BC #### [facility] [address] [place] [address] Dr. Sunny Ortez Lymphocytes/100 WBC (Bld) 18.4 % Critically low 20.5-60.0 [facility] Comment on above: Performed By: #### C BC #### [facility] [address] [place] [address] Dr. Sunny Ortez MANUAL DIFF REQ NO Normal [facility] Comment on above: Performed By: #### C BC #### [facility] [address] [address] [address] uSnny Ortez MCH (RBC) [Entitic mass] 27.9 pg Normal 25.9-34.0 [facility] Comment on above: Performed By: #### C BC #### [facility] [address] [place] [address] Dr. Sunny Ortez MCHC (RBC) [Mass/Vol] 33.3 g/dL Normal 29.9-35.2 [facility] Comment on above: Performed By: #### C BC #### [facility] [address] [place] [address] Dr. Sunny Ortez MCV (RBC) [Entitic vol] 83.7 fL Normal 80.0-94.0 [facility] Comment on above: Performed By: #### C BC #### [facility] [address] [place] [address] Dr. Sunny Ortez MONO # 0.8 103/ul Normal 0.3-0.8 [facility] Comment on above: Performed By: #### C BC #### [facility] [address] [place] [address] Dr. Sunny Ortez Monocytes/100 WBC (Bld) 8.0 % Normal 1.7-12.0 [facility] Comment on above: Performed By: #### C BC #### [facility] [address] [place] [address] Dr. Sunny Ortez NEUT # 7.0 103/ul Critically high 1.4-6.5 [facility] Comment on above: Performed By: #### C BC #### [facility] [address] [place] [address] Dr. Sunny Ortez Neutrophils/100 WBC (Bld) 67.8 % Normal 43.0-75.0 [facility] Comment on above: Performed By: #### C BC #### [facility] [address] [place] [address] Dr. Sunny Ortez Platelet mean volume (Bld) [Entitic vol] 9.5 fL Normal 9.5-13.5 [facility] Comment on above: Performed By: #### C BC #### [facility] [address] [address] [address] Sunny Ortez PLT 322 103/ul Normal 150-450 [facility] Comment on above: Performed By: #### C BC #### [facility] [address] [place] [address] Dr. Sunny Ortez RBC 5.45 106/ul Normal 4.70-6.10 [facility] Comment on above: Performed By: #### C BC #### [facility] [address] [place] [address] Dr. Sunny Ortez WBC 10.4 103/ul Normal 4.0-11.0 [facility] Comment on above: Performed By: #### C BC #### [facility] [address] [place] [address] Dr. Sunny Ortez FREE THYROXINE INDEX T7on FTI 3.01 Normal [facility] Comment on above: Performed By: #### C MP #### [facility] [address] [place] [address] Dr. Sunny Ortez T3U 35.0 % Normal 23.5-40.5 [facility] Comment on above: Performed By: #### C MP #### [facility] [address] [place] [address] Dr. Sunny Ortez T4 [Mass/Vol] 8.60 ug/dL Normal 5.53-11.00 [facility] Comment on above: Performed By: #### C MP #### [facility] [address] [place] [address] Dr. Sunny Ortez GLYCOHEMOGLOBIN A1Con 2021 ADA RECOMMENDATION ADA THERAPEUTIC TARG ET 6.0 - 7.0 ACTION SUGGESTED > 7.0 Normal [facility] Comment on above: Performed By: #### A 1C #### [facility] [address] [place] [address] Dr. Sunny Ortez Glucose [Mass/Vol] 197 mg/dL Normal [facility] Comment on above: Performed By: #### A 1C #### [facility] [address] [address] [address] Sunny Ortez HbA1c (Bld) [Mass fraction] 8.5 % Critically high <=6.0 [facility] Comment on above: Performed By: #### A 1C #### [facility] [address] [address] [address] Sunny Ortez LIPID PROFILEon 03-24-2021 CHOL-HDL RATIO NORM SEE BELOW Normal [facility] Comment on above: Result Comment: 3.3 - 4.4 LOW RISK 4.4 - 7.1 AVERAGE RISK 7.1 - 11.0 MODERATE RISK >11.0 HIGH RISK Performed By: #### C MP #### [facility] [address] [address] [address] Sunny Ortez Cholesterol [Mass/Vol] 150 mg/dL Normal <=200 [facility] Comment on above: Performed By: #### C MP #### [facility] [address] [address] [address] Sunny Ortez Cholesterol in HDL [Mass/Vol] 30 mg/dL Normal [facility] Comment on above: Performed By: #### C MP #### [facility] [address] [address] [address] Sunny Ortez Cholesterol in LDL [Mass/Vol] 96.8 mg/dL Normal [facility] Comment on above: Performed By: #### C MP #### [facility] [address] [address] [address] Sunny Ortez Cholesterol.total/Chol esterol in HDL [Mass ratio] 5.0 {ratio} Normal [facility] Comment on above: Performed By: #### C MP #### [facility] [address] [address] [address] Sunny Ortez HDL NORMAL > or = 60 mg/dl - LO W CARDIOVASCULAR RISK <40 mg/dl - HIGH CARDIOVASCULAR RISK Normal [facility] Comment on above: Performed By: #### C MP #### [facility] [address] [address] [address] Sunny Ortez LDL CALC NORMAL SEE BELOW Normal [facility] Comment on above: Result Comment: <100 mg/dl OPTIMAL 100 - 129 mg/dl NEAR OR ABOVE OPTIMAL 130 - 159 mg/dl BORDERLINE HIGH 160 - 189 mg/dl HIGH >190 mg/dl VERY HIGH Performed By: #### C MP #### [facility] [address] [place] [address] Dr. Sunny Ortez Triglyceride [Mass/Vol] 116 mg/dL Normal <=150 [facility] Comment on above: Performed By: #### C MP #### [facility] [address] [place] [address] Dr. Sunny Ortez VLDL CALC 23.2 mg/dL Normal [facility] Comment on above: Performed By: #### C MP #### [facility] [address] [place] [address] Dr. Sunny Ortez PROF 14(COMP METB)on 022 Albumin [Mass/Vol] 3.5 g/dL Normal 3.5-5.0 [facility] Comment on above: Performed By: #### C MP #### [facility] [address] [place] [address] Dr. Sunny Ortez Albumin/Globulin [Mass ratio] 1.0 {ratio} Normal [facility] Comment on above: Performed By: #### C MP #### [facility] [address] [place] [address] Dr. Sunny Ortez ALP [Catalytic activity/Vol] 73 U/L Normal 38-126 [facility] Comment on above: Performed By: #### C MP #### [facility] [address] [place] [address] Dr. Sunny Ortez ALT [Catalytic activity/Vol] 28 U/L Normal 21-72 [facility] Comment on above: Performed By: #### C MP #### [facility] [address] [place] [address] Dr. Sunny Ortez Anion gap [Moles/Vol] 14.7 mmol/L Normal [facility] Comment on above: Performed By: #### C MP #### [facility] [address] [place] [address] Dr. Sunny Ortez AST [Catalytic activity/Vol] 13 U/L Critically low 17-59 [facility] Comment on above: Performed By: #### C MP #### [facility] [address] [address] [address] Sunny Ortez Bilirubin [Mass/Vol] 0.7 mg/dL Normal 0.2-1.3 [facility] Comment on above: Performed By: #### C MP #### [facility] [address] [address] [address] Sunny Ortez Calcium [Mass/Vol] 8.6 mg/dL Normal 8.4-10.2 [facility] Comment on above: Performed By: #### C MP #### [facility] [address] [place] [address] Dr. Sunny Ortez Chloride [Moles/Vol] 105 mmol/L Normal 98-107 [facility] Comment on above: Performed By: #### C MP #### [facility] [address] [place] [address] Dr. Sunny Ortez CO2 [Moles/Vol] 23.6 mmol/L Normal 22.0-30.0 [facility] Comment on above: Performed By: #### C MP #### [facility] [address] [place] [address] Dr. Sunny Ortez Creatinine [Mass/Vol] 1.33 mg/dL Critically high 0.66-1.25 [facility] Comment on above: Performed By: #### C MP #### [facility] [address] [place] [address] Dr. Sunny Ortez EGFR-AF SWEDISH >60 Normal >=60 [facility] Comment on above: Performed By: #### C MP #### [facility] [address] [address] [address] Sunny Ortez EGFR-NON AF SWEDISH 55 mL/min/1.73m2 Critically low >=60 [facility] Comment on above: Performed By: #### C MP #### [facility] [address] [place] [address] Dr. Sunny Ortez Globulin (S) [Mass/Vol] 3.6 g/dL Normal [facility] Comment on above: Performed By: #### C MP #### [facility] [address] [address] [address] Sunny Ortez Glucose [Mass/Vol] 253 mg/dL Critically high 74-106 [facility] Comment on above: Performed By: #### C MP #### [facility] [address] [address] [address] Sunny Ortez Potassium [Moles/Vol] 4.3 mmol/L Normal 3.4-5.0 [facility] Comment on above: Performed By: #### C MP #### [facility] [address] [address] [address] Sunny Ortez Protein [Mass/Vol] 7.1 g/dL Normal 6.1-8.2 [facility] Comment on above: Performed By: #### C MP #### [facility] [address] [address] [address] Sunny Ortez Sodium [Moles/Vol] 139 mmol/L Normal 137-145 [facility] Comment on above: Performed By: #### C MP #### [facility] [address] [address] [address] Sunny Ortez Urea nitrogen [Mass/Vol] 18.0 mg/dL Normal 9.0-20.0 [facility] Comment on above: Performed By: #### C MP #### [facility] [address] [address] [address] Sunny Ortez Urea nitrogen/Creatinine [Mass ratio] 13.5 mg/mg Normal [facility] Comment on above: Performed By: #### C MP #### [facility] [address] [address] [address] Sunny Ortez TSHon 03-24-2021 TSH 1.335 uIU/mL Normal 0.470-4.68 0 [facility] Comment on above: Performed By: #### C MP #### [facility] [address] [address] [address] Sunny Ortez TSH RANGE SEE BELOW Normal [facility] Comment on above: Result Comment: <0.3 4 UIU/ml HYPERTHYROID 0.34-5.60 UIU/ml EUTHYROID >5.60 UIU/ml HYPOTHYROID Performed By: #### C MP #### [facility] [address] [place], [place] [address] Dr. Sunny Ortez URIC ACID SERUMon 03-24-2021 Urate [Mass/Vol] 4.9 mg/dL Normal 3.5-8.5 [facility] Comment on above: Performed By: #### C MP #### [facility] [address] [place], [place] [address] Dr. Sunny Ortez Basic Metabolic Panlon 06-20 Anion gap [Moles/Vol] 11 mmol/L Normal 9-18 [facility] Calcium [Mass/Vol] 8.9 mg/dL Normal 8.5-10.2 [facility] Chloride [Moles/Vol] 106 mmol/L High 97-105 [facility] CO2 [Moles/Vol] 22 mmol/L Normal 22-30 [facility] Creatinine [Mass/Vol] 1.28 mg/dL High 0.73-1.22 [facility] eGFR- Amer. >60 Normal [facility] GFR/1.73 sq M predicted among non-blacks MDRD (S/P/Bld) [Vol rate/Area] 58 . Normal [facility] Comment on above: Result Comment: eGFR (Estimated [...] GFR. Glucose [Mass/Vol] 148 mg/dL High 74-99 [facility] Comment on above: Result Comment: The [place] Diabetes Association (ADA) provides guidance for cutoff [...] Standards of Medical Care in Diabetes 2016, [place] [employer]. Diabetes Care. 2016.39(Suppl 1). Potassium [Moles/Vol] 4.5 mmol/L Normal 3.7-5.1 [facility] Sodium [Moles/Vol] 139 mmol/L Normal 136-144 [facility] Urea nitrogen [Mass/Vol] 10 mg/dL Normal 9-24 [facility] CNPNon 06-21-2019 CNPN Telephone (UROALDENN) -- CLARENCE FLORES ([id number]) 1960 M Date Time Provider Department 06/21/19 DIANE DILLON PA-C During your visit today, we recorded the following information about you: Diane Dillon PA-C 06/21/2019 2:[address] and CXR with no recurrence or mets. Repeat CT and CXR in 6M. Patient to schedule on his own at [facility] Dillon PA-C Pager [phone] Office [phone] Allergies As of Date: 06/21/2019 Noted Allergy Reaction NITROGLYCERIN 11/26/2018 14 - Other: See Comments Date Reviewed: 02/05/2019 Reviewed by: Diane Dillon - Fully Assessed Reason for Visit: Results [95] Primary Visit Diagnosis:Left renal mass [N28.89] Other Visit Diagnosis:Renal cell carcinoma of left kidney (HCC) [C64.2] Order(s):XR CHEST 2V FRONTAL/LAT [[id number]] Order #: [id number] FUTURE CT ABD/PEL W IVCON [[id number]] Order #: [id number] FUTURE iv contrast (will be provided with [...] by DIANE DILLON PA-C on 06/21/19 Normal [facility] CT ABD/PEL W IVCONon 05-11-[address] ABD/PEL W IVCON * * *Final Report* * * DATE OF EXAM: Jun 21 2019 9:40AM [facility] 0530 - CT ABD/PEL W IVCON / [...] any questions regarding this interpretation, please call [phone]. If you are unable to reach us at the number above, please feel free to contact [facility] eRadiology at [phone]. [id number] Normal [facility] PROGRESSon 06-21-2019 PROGRESS HNO ID: [id number] Author: Holly Garcia (Tech) Service: ? Author Type: Pretzel Twisting Machine Operator Type: Progress Notes Filed: 06/21/2019 2:25 PM [...] Garcia June 21, 2019 2:24 PM Normal [facility] PROGRESS HNO ID: [id number] Author: Holly Garcia (Tech) Service: ? Author Type: Pretzel Twisting Machine Operator Type: Progress Notes Filed: 06/21/2019 9:51 AM [...] given.. PATIENT DISCHARGED TO: Ambulatory patient, left [place] department area. A Diagnostic radioactive procedure has taken place, with no further precautions necessary other than routine body substance precautions. More information regarding radiation safety can be found using this link: [email or web address]. [email or web address] SIGNATURE: Holly Garcia PATIENT NAME: Clarence Flores DATE: June 21, 2019 TIME: 8:39 AM PAGER/CONTACT #: Normal [facility] XR CHEST 2V FRONTAL/LATon XR CHEST 2V [...] any questions regarding this interpretation, please call [phone]. If you are unable to reach us at the number above, please feel free to contact [facility] eRadiology at [phone]. [id number] Normal [facility] CNPNon 06-17-2019 CNPN Telephone (RADTSA) -- MARKCLARENCE ([id number]) 1960 M Date Time Provider Department 06/17/19 RIKAMarco AntonioMAICO (HISTORICAL) KITMaurice During your visit today, we recorded the following information about you: Clarisse Alicia 06/17/2019 3:19 PM Signed Mark Clarence [id number] is coming in Tuesday 06/20 for CTs w/IV on; please sign pending ISTAT BMP as our lab's chemistry will be down that day and he will need CRE clearance prior to. Thanks Clarisse Alicia, check writer [facility] Allergies As of Date: 06/17/2019 Noted Allergy Reaction NITROGLYCERIN 11/26/2018 14 - Other: See Comments Date Reviewed: 02/05/2019 Reviewed by: Diane Dunn) Darshana - Fully Assessed Reason for Visit: Orders [681] Primary Visit Diagnosis:Left renal mass [N28.89] Order(s):ISTAT BMP [SQISTBMP] Order #: [id number] FUTURE Prescriptions as of 06/17/2019 Sig: IV [...] Status:Closed by DIANE DILLON PA-C on 06/17/19 [facility] CNOVon 02-05-2019 CNOV Office Visit (UROLMN ) -- CLARENCE FLORES ([id number]) 1960 M Date Time Provider Department 02/05/19 10:50 AM DIANE DILLON) UROGIL During your visit today, we recorded the following information about you: Pulse Blood pressure Weight Height 64/minute 179/81 120.5 kg 1.676 m Diane Dillon PA-C 02/05/2019 10:49 AM Signed [facility] PHYSICIAN RELIEF MANAGER CLINIC POST-OPERATIVE PATIENT CC: Patient is here [...] PA-C Electronically signed Referring Provider: MAICO ANG [[id number]] Allergies As of Date: 02/05/2019 Noted Allergy Reaction NITROGLYCERIN 11/26/2018 14 - Other: See Comments Date Reviewed: 02/05/2019 Reviewed by: Diane Dunn) Darshana - Fully Assessed Visit Diagnosis:Renal cell carcinoma of left kidney (HCC) [C64.2] Order(s):CT ABD/PEL W IVCON [[id number]] Order #: [id number] FUTURE iv contrast (will be provided with [...] 1 EachRfl: 0 XR CHEST 2V FRONTAL/LAT [[id number]] Order #: [id number] FUTURE BASIC METABOLIC PNL [SQBMP] Order #: [id number] FUTURE Prescriptions as of 02/05/2019 Sig: HYDRALAZINE [...] Status:Closed by DIANE DILLON PA-C on 02/05/19 [facility] CNPTOUTREAMaria M 02-05-2019 [facility] Patient Outreach (UR OLMN) -- CLARENCE FLORES ([id number]) 1960 M Date Time Provider Department 02/05/19 [facility]ILLON[facility] During your visit today, we recorded the following information about you: Allergies As of Date: 02/05/2019 Noted Allergy Reaction NITROGLYCERIN 11/26/2018 14 - Other: See Comments Date Reviewed: 02/05/2019 Reviewed by: Diane Dunn) Darshana - Fully Assessed Visit Diagnosis:Screening for genitourinary condition [Z13.89] Order(s):UA CHEMSTRIP ONLY [SQUA] Order #: [id number]. #:[id number] Prescriptions as of 02/05/2019 Sig: IV CONTRAST [...] Renal neoplasm [D49.519] 12/22/2018 Encounter Status:Closed by STEPHANE, PRODUSER on 02/22/19 Normal [facility] PROGRESSon 02-05-2019 PROGRESS HNO ID: [id number] Author: Diane Dillon Service: ? Author Type: Physician Piece Dyeing Machine Tender Type: Progress Notes Filed: 02/05/2019 10:49 AM Note Text: [facility] PHYSICIAN RELIEF MANAGER CLINIC POST-OPERATIVE PATIENT CC: Patient is here [...] arise Diane Dillon PA-C Electronically signed Normal [facility] Urinalysison 02-05-2019 Bilirubin, Urine Negative Normal Negative [facility] Comment on above: Performed By: #### U A ####[address] [address] [address] [phone] Clarity (U) Clear Normal Clear [facility] Comment on above: Performed By: #### U A ####[address] [address] [address] [phone] Color (U) Yellow Normal Yellow [facility] Comment on above: Performed By: #### U A ####[address] [address] [address] [phone] Comments SEE COMMENT Normal [facility] Comment on above: Result Comment: Micr oscopic not warranted Performed By: #### U A ####[place] [address] [address] [phone] Glucose Ql (U) Negative Normal Negative [facility] Comment on above: Performed By: #### U A ####[place] [address] [address] [phone] Hemoglobin/Blood,Ur Negative Normal Negative [facility] Comment on above: Performed By: #### U A ####[place] [address] [address] [phone] Ketones Ql (U) Negative Normal Negative [facility] Comment on above: Performed By: #### U A ####[facility] [phone] Leukest Negative Normal Negative [facility] Comment on above: Performed By: #### U A ####[facility] [phone] Nitrite Ql (U) Negative Normal Negative [facility] Comment on above: Performed By: #### U A ####[place] [address] [address] [phone] pH (Bld) 6.5 Normal 4.5-8.0 [facility] Comment on above: Performed By: #### U A ####[place] [phone] Protein (U) [Mass/Vol] Trace Criticall y abnormal Negative [facility] Comment on above: Performed By: #### U A ####[place] [phone] Specific [place], Ur 1.020 Normal 1.005-1 .03 0 [facility] Comment on above: Performed By: #### U A ####[place] [phone] Urine Shin Comment SEE COMMENT Normal [facility] Comment on above: Result Comment: N/A Performed By: #### U A ####[place] [phone] Urobilinogen Qn (U) Normal Normal Normal [facility] Comment on above: Performed By: #### U A ####[place] [phone] Basic Metabolic Panlon 12-25 Anion gap [Moles/Vol] 9 mmol/L Normal 9-18 [facility] Comment on above: Performed By: #### C BCDIF, BMP ####[address] [phone] Calcium [Mass/Vol] 8.3 mg/dL Low 8.5-10.2 [facility] Comment on above: Performed By: #### C BCDIF, BMP ####[id number] [place], [place] [phone] Chloride [Moles/Vol] 109 mmol/L High 97-105 [facility] Comment on above: Performed By: #### C BCDIF, BMP ####[address], [place] [phone] CO2 [Moles/Vol] 21 mmol/L Low 22-30 [facility] Comment on above: Performed By: #### C KAREL, BMP ####[address] [place], [place] [phone] Creatinine [Mass/Vol] 1.24 mg/dL High 0.73-1.22 [facility] Comment on above: Performed By: #### C DARRYLF, BMP ####[address] [address] [address] [place], [place] [phone] eGFR- Amer. >60 Normal [facility] Comment on above: Performed By: #### C KAREL, BMP ####[address] [phone] GFR/1.73 sq M predicted among non-blacks MDRD (S/P/Bld) [Vol rate/Area] mL/min/{1.73_m2} Normal [facility] Comment on above: Result Comment: eGFR (Estimated [...] GFR. Performed By: #### C BCDIF, BMP ####[address] [phone] Glucose [Mass/Vol] 117 mg/dL High 74-99 [facility] Comment on above: Result Comment: The [place] Diabetes Association (ADA) provides guidance for cutoff [...] Standards of Medical Care in Diabetes 2016, [place] Diabetes Association. Diabetes Care. 2016.39(Suppl 1). Performed By: #### C KAREL, BMP ####[place] [address] [address], [place] [phone] Potassium [Moles/Vol] 3.8 mmol/L Normal 3.7-5.1 [facility] Comment on above: Performed By: #### C KAREL BMP ####[place] [address] [address], [place] [phone] Sodium [Moles/Vol] 139 mmol/L Normal 136-144 [facility] Comment on above: Performed By: #### C KAREL, BMP ####[place] [address] [address], [place] [phone] Urea nitrogen [Mass/Vol] 16 mg/dL Normal 9-24 [facility] Comment on above: Performed By: #### C KAREL, BMP ####[place] [address] [address], [place] [phone] CBC and Differentialon 12-25 Abs Baso 0.04 k/uL Normal <0.11 [facility] Comment on above: Performed By: #### C BCDIF, BMP ####[place] [address] [address], [place] [phone] Abs [place] 1.12 k/uL High <0.87 [facility] Comment on above: Performed By: #### C BCKATLYNF, BMP ####[place] [address], [place] [phone] Abs Neut 9.63 k/uL High 1.45-7.50 [facility] Comment on above: Performed By: #### C BCDIF, BMP ####[place] [address] [address] [place] [phone] Absolute nRBC <0.01 Normal <0.01 [facility] Comment on above: Performed By: #### C BCDIF, BMP ####[place] [address] [address] [place] [phone] Basophils/100 WBC (Bld) 0.3 % Normal [facility] Comment on above: Performed By: #### C BCDIF, BMP ####[place] [address] [address] [place] [phone] DTYPE Auto Diff Normal [facility] Comment on above: Performed By: #### C BCDIF, BMP ####[place] [address] [address] [place] [phone] Eosinophils (Bld) [#/Vol] 0.24 10*3/uL Normal <0.46 [facility] Comment on above: Performed By: #### C BCDIF, BMP ####[place] [address] [address] [place] [phone] Eosinophils/100 WBC (Bld) 2.0 % Normal [facility] Comment on above: Performed By: #### C BCDIF, BMP ####[place] [address] [address] [place] [phone] Erythrocyte distribution width (RBC) [Ratio] 13.7 % Normal 11.5-15.0 [facility] Comment on above: Performed By: #### C BCDIF, BMP ####[place] [address] [address] [place] [phone] Hematocrit (Bld) [Volume fraction] 39.9 % Normal 39.0-51.0 [facility] Comment on above: Performed By: #### C BCDIF, BMP ####[place] [address] [address], [place] [phone] Hemoglobin (Bld) [Mass/Vol] 13.3 g/dL Normal 13.0-17.0 [facility] Comment on above: Performed By: #### C BCDIF, BMP ####[place] [address] [address], [place] [phone] Lymphocytes (Bld) [#/Vol] 1.25 10*3/uL Normal 1.00-4.00 [facility] Comment on above: Performed By: #### C BCDIF, BMP ####[place] [address] [address], [place] [phone] Lymphocytes/100 WBC (Bld) 10.2 % Normal [facility] Comment on above: Performed By: #### C BCDIF, BMP ####[address], [place] [phone] MCH (RBC) [Entitic mass] 29.3 pG Normal 26.0-34.0 [facility] Comment on above: Performed By: #### C BCDIF, BMP ####[place] [address] [address], [place] [phone] MCHC (RBC) [Mass/Vol] 33.3 g/dL Normal 30.5-36.0 [facility] Comment on above: Performed By: #### C BCDIF, BMP ####[place] [address] [address], [place] [phone] MCV (RBC) [Entitic vol] 87.9 fL Normal 80.0-100.0 [facility] Comment on above: Performed By: #### C BCDIF, BMP ####[place] [address] [address], [place] [phone] Monocytes/100 WBC (Bld) 9.1 % Normal [facility] Comment on above: Performed By: #### C BCDIF, BMP ####[place] [address] [address] [place], [place] [phone] Neutrophils/100 WBC (Bld) 78.4 % Normal [facility] Comment on above: Performed By: #### Pablo VINSON, BMP ####[facility]ClevelB[address] [place], [place] [phone] NRBCs 0.0 /100 WBC Normal 0 [facility] Comment on above: Performed By: #### Pablo VINSON, BMP ####[facility], [place] [phone] Platelet mean volume (Bld) [Entitic vol] 9.6 fL Normal 9.0-12.7 [facility] Comment on above: Performed By: #### C KAREL, BMP ####[place] [address] [address], [place] [phone] Platelets (Bld) [#/Vol] 241 10*3/uL Normal 150-400 [facility] Comment on above: Performed By: #### C KAREL, BMP ####[place] [address] [address], [place] [phone] RBC (Bld) [#/Vol] 4.54 10*6/uL Normal 4.20-6.00 [facility] Comment on above: Performed By: #### Pablo VINSON, BMP ####[place] [address] [address], [place] [phone] WBC (Bld) [#/Vol] 12.28 10*3/uL High 3.70-11.00 [facility] Comment on above: Performed By: #### Pablo VINSON, BMP ####[place] [address]CHom[place], [place] [phone] PROGRESSon 12-25-2018 PROGRESS HNO ID: [id number] Author: Clarence (Geovanna Schmidt Service: Urology Author Type: Resident Type: Progress Notes Filed: 12/25/2018 9:45 AM Note Text: [facility] UROLOGY PROGRESS NOTE Name: Clarence Flores Bed: [id number]/[id number] Date: December 25, 2018 After Hours [facility] Urology Service Pager: [phone] ASSESSMENT AND PLAN Clarence Flores is a [...] Imaging n/a Clarence Schmidt MD Personal Pager: [phone] For weekend or after hours issues [place] [phone] Normal [facility] PROGRESS HNO ID: [id number] Author: Kate Ruiz) Lion Service: Urology Author [...] PRN - sodium chloride 0.65 % 2 [place] (AYR, OCEAN) 2 [place] EACH NOSTRIL PRN - tamsulosin ER 0.4 [...] to discharge. Signature: Kate Seymour CNP Pager: [phone] Date of service: 12/25/2018 Normal [facility] Basic Metabolic Panlon 12-24 Anion gap [Moles/Vol] 16 mmol/L Normal 9-18 [facility] Comment on above: Performed By: #### C KAREL BMP ####[place] [address] [place], [place] [phone] Calcium [Mass/Vol] 8.7 mg/dL Normal 8.5-10.2 [facility] Comment on above: Performed By: #### C BCKATLYNF, BMP ####[place] [address] [place], [place] [phone] Chloride [Moles/Vol] 104 mmol/L Normal 97-105 [facility] Comment on above: Performed By: #### C BCKRYSTAL, BMP ####[place] [address] [place], [place] [phone] CO2 [Moles/Vol] 18 mmol/L Low 22-30 [facility] Comment on above: Performed By: #### C BCDIF, BMP ####[facility] [place], [place] [phone] Creatinine [Mass/Vol] 1.26 mg/dL High 0.73-1.22 [facility] Comment on above: Performed By: #### C KAREL, BMP ####[facility] [place], [place] [phone] eGFR- Amer. >60 Normal [facility] Comment on above: Performed By: #### C KAREL, BMP ####[address] [phone] GFR/1.73 sq M predicted among non-blacks MDRD (S/P/Bld) [Vol rate/Area] 59 . Normal [facility] Comment on above: Result Comment: eGFR (Estimated [...] Performed By: #### C KAREL, BMP ####[facility] [place], [place] [phone] Glucose [Mass/Vol] 117 mg/dL High 74-99 [facility] Comment on above: Result Comment: The [place] Diabetes Association (ADA) provides guidance for cutoff [...] Standards of Medical Care in Diabetes 2016, [place] Diabetes Association. Diabetes Care. 2016.39(Suppl 1). Performed By: #### C KAREL, BMP ####[place] [address] [address], [place] [phone] Potassium [Moles/Vol] 4.0 mmol/L Normal 3.7-5.1 [facility] Comment on above: Performed By: #### C KAREL, BMP ####[address], [place] [phone] Sodium [Moles/Vol] 138 mmol/L Normal 136-144 [facility] Comment on above: Performed By: #### C KAREL, BMP ####[place] [address] [address], [place] [phone] Urea nitrogen [Mass/Vol] 15 mg/dL Normal 9-24 [facility] Comment on above: Performed By: #### C DARRYLF, BMP ####[address] [place], [place] [phone] CBC and Differentialon 12-24 Abs Baso 0.06 k/uL Normal <0.11 [facility] Comment on above: Performed By: #### C BCKATLYNF, BMP ####[place] [address] [address], [place] [phone] Abs [place] 1.82 k/uL High <0.87 [facility] Comment on above: Performed By: #### C BCDIF, BMP ####[place] [address], [place] [phone] Abs Neut 13.61 k/uL High 1.45-7.50 [facility] Comment on above: Performed By: #### C BCDIF, BMP ####[place] [address], [place] [phone] Absolute nRBC <0.01 Normal <0.01 [facility] Comment on above: Performed By: #### C BCDIF, BMP ####[place] [address] [address] [place] [phone] Basophils/100 WBC (Bld) 0.4 % Normal [facility] Comment on above: Performed By: #### C BCDIF, BMP ####[place] [address] [phone] DTYPE Auto Diff Normal [facility] Comment on above: Performed By: #### C BCDIF, BMP ####[place] [address] [phone] Eosinophils (Bld) [#/Vol] 0.03 10*3/uL Normal <0.46 [facility] Comment on above: Performed By: #### C BCDIF, BMP ####[place] [address] [phone] Eosinophils/100 WBC (Bld) 0.2 % Normal [facility] Comment on above: Performed By: #### C BCDIF, BMP ####[place] [address] [place] [phone] Erythrocyte distribution width (RBC) [Ratio] 13.7 % Normal 11.5-15.0 [facility] Comment on above: Performed By: #### C BCDIF, BMP ####[place] [address] [phone] Hematocrit (Bld) [Volume fraction] 43.5 % Normal 39.0-51.0 [facility] Comment on above: Performed By: #### C BCDIF, BMP ####[place] [address] [phone] Hemoglobin (Bld) [Mass/Vol] 14.5 g/dL Normal 13.0-17.0 [facility] Comment on above: Performed By: #### C BCDIF, BMP ####[place] [address], [place] [phone] Lymphocytes (Bld) [#/Vol] 1.16 10*3/uL Normal 1.00-4.00 [facility] Comment on above: Performed By: #### C BCKRYSTAL, BMP ####[place] [address], [place] [phone] Lymphocytes/100 WBC (Bld) 7.0 % Normal [facility] Comment on above: Performed By: #### C BCKRYSTAL, BMP ####[place] [address], [place] [phone] MCH (RBC) [Entitic mass] 29.3 pG Normal 26.0-34.0 [facility] Comment on above: Performed By: #### C BCKRYSTAL, BMP ####[place] [address], [place] [phone] MCHC (RBC) [Mass/Vol] 33.3 g/dL Normal 30.5-36.0 [facility] Comment on above: Performed By: #### C BCKRYSTAL BMP ####[place] [address], [place] [phone] MCV (RBC) [Entitic vol] 87.9 fL Normal 80.0-100.0 [facility] Comment on above: Performed By: #### C BCDIF, BMP ####[place] [address], [place] [phone] Monocytes/100 WBC (Bld) 10.9 % Normal [facility] Comment on above: Performed By: #### C BCDILinda, BMP ####[place] [address], [place] [phone] Neutrophils/100 WBC (Bld) 81.5 % Normal [facility] Comment on above: Result Comment: Diff erential confirmed by visual scan of peripheral blood smear slide. Performed By: #### C BCKRYSTAL, BMP ####[facility]CH[address], [place] [phone] NRBCs 0.0 /100 WBC Normal 0 [facility] Comment on above: Performed By: #### C BCDIF, BMP ####[facility], [place] [phone] Platelet mean volume (Bld) [Entitic vol] 9.6 fL Normal 9.0-12.7 [facility] Comment on above: Performed By: #### C BCDIF, BMP ####[place] [address], [place] [phone] Platelets (Bld) [#/Vol] 278 10*3/uL Normal 150-400 [facility] Comment on above: Performed By: #### C BCKATLYNF, BMP ####[place] [address], [place] [phone] RBC (Bld) [#/Vol] 4.95 10*6/uL Normal 4.20-6.00 [facility] Comment on above: Performed By: #### C BCKATLYNF, BMP ####[facility], [place] [phone] WBC (Bld) [#/Vol] 16.68 10*3/uL High 3.70-11.00 [facility] Comment on above: Performed By: #### C BCDIF, BMP ####[facility], [place] [phone] PROGRESSon 12-24-2018 PROGRESS HNO ID: [id number] Author: Clarence Schmidt Service: Urology Author Type: Resident Type: Progress Notes Filed: 12/24/2018 10:00 AM Note Text: [facility] UROLOGY PROGRESS NOTE Name: Clarence Flores Bed: G090 [id number]/[id number] Date: December 24, 2018 After Hours [facility] [place] [facility] Service Pager: [phone] ASSESSMENT AND PLAN Clarence Flores is a [...] Imaging n/a Clarence Schmidt MD Personal Pager: [phone] For weekend or after hours issues [place] [phone] Normal [facility] Basic Metabolic Panlon 12-23 Anion gap [Moles/Vol] 14 mmol/L Normal 9-18 [facility] Comment on above: Performed By: #### C BCDIF, BMP ####[address] [phone] Calcium [Mass/Vol] 8.7 mg/dL Normal 8.5-10.2 [facility] Comment on above: Performed By: #### C BCDIF, BMP ####[facility], [place] [phone] Chloride [Moles/Vol] 102 mmol/L Normal 97-105 [facility] Comment on above: Performed By: #### C BCDIF, BMP ####[facility], [place] [phone] CO2 [Moles/Vol] 21 mmol/L Low 22-30 [facility] Comment on above: Performed By: #### C BCDIF, BMP ####[facility] [place], [place] [phone] Creatinine [Mass/Vol] 1.31 mg/dL High 0.73-1.22 [facility] Comment on above: Performed By: #### C BCDIF, BMP ####[place] [address] [place], [place] [phone] eGFR- Amer. >60 Normal [facility] Comment on above: Performed By: #### C KAREL, NIRALI ####[facility], [place] [phone] GFR/1.73 sq M predicted among non-blacks MDRD (S/P/Bld) [Vol rate/Area] 57 . Normal [facility] Comment on above: Result Comment: eGFR (Estimated [...] actual GFR. Performed By: #### C KAREL, NIRALI ####[facility] [place], [place] [phone] Glucose [Mass/Vol] 121 mg/dL High 74-99 [facility] Comment on above: Result Comment: The [place] Diabetes Association (ADA) provides guidance for cutoff [...] Standards of Medical Care in Diabetes 2016, [place] Diabetes Association. Diabetes Care. 2016.39(Suppl 1). Performed By: #### C KAREL, NIRALI ####[facility] [place], [place] [phone] Potassium [Moles/Vol] 4.0 mmol/L Normal 3.7-5.1 [facility] Comment on above: Performed By: #### C DARRYLF, BMP ####[facility] [address] [place], [place] [phone] Sodium [Moles/Vol] 137 mmol/L Normal 136-144 [facility] Comment on above: Performed By: #### C BCDIF, BMP ####[facility] [address], [place] [phone] Urea nitrogen [Mass/Vol] 11 mg/dL Normal 9-24 [facility] Comment on above: Performed By: #### C BCDIF, BMP ####[facility] [address] [place], [place] [phone] CASE MGT INIT ROSARIOon 2018 CASE MGT INIT ROSARIO HNO ID: [id number] Author: Cornelius Diaz (Sw) Service: Care Management Author Type: Enroller Type: Care Mgt Initial Assessment Filed: 12/23/2018 4:27 PM Note Text: CARE MANAGEMENT: ASSESSMENT AND DISCHARGE PLAN SERVICE DATE: 12/23/2018 SERVICE TIME: 4:24 PM PRIMARY CARE PHYSICIAN: Shea Beach MD ADMISSION STATUS: Observation Needs Prior to Discharge: None;Ready for Discharge MEDICAL: 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 No Advance Directive: Current Advance Directive: Health Care Power of Yardage Tufting Machine Operator In Chart: Yes Up To Date [...] None Has the Patient Been in a Senior Living Facility in the Past 30 days? No SOCIAL: Living Arrangement: Home Lives With: Son Financial Resources: Employed: [employer] Primary Contact: Extended Emergency Contact Information Primary [...] 0 I feel financially burdened by my okl-co-yppjwy expenses for my prescription medication: Disagree completely [...] 2018 TIME: 4:24 PM PAGER/CONTACT #: Normal [facility] CBC and Differentialon 12-23 Abs Baso 0.03 k/uL Normal <0.11 [facility] Comment on above: Performed By: #### C BCDIF, NIRALI ####[facility] [address] [place], [place] [phone] Abs [place] 1.36 k/uL High <0.87 [facility] Comment on above: Performed By: #### C BCDIF, BMP ####[facility] [address]C[place], [place] [phone] Abs Neut 16.73 k/uL High 1.45-7.50 [facility] Comment on above: Performed By: #### C BCDIF, BMP ####[facility] AveClevelandAmand[place] [phone] Absolute nRBC <0.01 Normal <0.01 [facility] Comment on above: Performed By: #### C BCDIF, BMP ####[place] [address] AveClevelB[place] [phone] Basophils/100 WBC (Bld) 0.2 % Normal [facility] Comment on above: Performed By: #### C BCDIF, BMP ####[place] [address] AveCAlex[address] [place] [phone] DTYPE Auto Diff Normal [facility] Comment on above: Performed By: #### C BCDIF, BMP ####[facility] AveClevelB[address] [place] [phone] Eosinophils (Bld) [#/Vol] 10*3/uL Normal <0.46 [facility] Comment on above: Performed By: #### C BCDIF, BMP ####[facility] AveClevelB[address] [place] [phone] Eosinophils/100 WBC (Bld) 0.0 % Normal [facility] Comment on above: Performed By: #### C BCDIF, BMP ####[facility] AveClevelB[address] [place] [phone] Erythrocyte distribution width (RBC) [Ratio] 13.3 % Normal 11.5-15.0 [facility] Comment on above: Performed By: #### C BCDIF, BMP ####[facility]ClevelB[address] [place] [phone] Hematocrit (Bld) [Volume fraction] 46.4 % Normal 39.0-51.0 [facility] Comment on above: Performed By: #### C BCDIF, BMP ####[place] [address], [place] [phone] Hemoglobin (Bld) [Mass/Vol] 15.3 g/dL Normal 13.0-17.0 [facility] Comment on above: Performed By: #### C BCDIF, BMP ####[place] [address], [place] [phone] Lymphocytes (Bld) [#/Vol] 0.94 10*3/uL Low 1.00-4.00 [facility] Comment on above: Performed By: #### C BCDIF, BMP ####[place] [address], [place] [phone] Lymphocytes/100 WBC (Bld) 4.9 % Normal [facility] Comment on above: Performed By: #### C BCDIF, BMP ####[place] [address], [place] [phone] MCH (RBC) [Entitic mass] 28.2 pG Normal 26.0-34.0 [facility] Comment on above: Performed By: #### C BCDIF, BMP ####[place] [address], [place] [phone] MCHC (RBC) [Mass/Vol] 33.0 g/dL Normal 30.5-36.0 [facility] Comment on above: Performed By: #### C BCDIF, BMP ####[place] [address], [place] [phone] MCV (RBC) [Entitic vol] 85.5 fL Normal 80.0-100.0 [facility] Comment on above: Performed By: #### C BCDIF, BMP ####[place] [address], [place] [phone] Monocytes/100 WBC (Bld) 7.1 % Normal [facility] Comment on above: Performed By: #### C BCDIF, BMP ####[place] [address]ClevelB[place], [place] [phone] Neutrophils/100 WBC (Bld) 87.8 % Normal [facility] Comment on above: Performed By: #### C BCDIF, BMP ####[place] [address] [place], [place] [phone] NRBCs 0.0 /100 WBC Normal 0 [facility] Comment on above: Performed By: #### C BCDIF, BMP ####[place] [address], [place] [phone] Platelet mean volume (Bld) [Entitic vol] 9.5 fL Normal 9.0-12.7 [facility] Comment on above: Performed By: #### C BCDIF, BMP ####[place] [address], [place] [phone] Platelets (Bld) [#/Vol] 315 10*3/uL Normal 150-400 [facility] Comment on above: Performed By: #### C BCDIF, BMP ####[place] [address], [place] [phone] RBC (Bld) [#/Vol] 5.43 10*6/uL Normal 4.20-6.00 [facility] Comment on above: Performed By: #### C BCDIF, BMP ####[place] [address] [place], [place] [phone] WBC (Bld) [#/Vol] 19.06 10*3/uL High 3.70-11.00 [facility] Comment on above: Performed By: #### C BCDIF, BMP ####[place] [address] [place], [place] [phone] PROGRESSon 12-23-2018 PROGRESS HNO ID: [id number] Author: Clarence (Breana) Roxana Service: Urology Author Type: Resident Type: Progress Notes Filed: 12/23/2018 8:40 AM Note Text: [facility] UROLOGY PROGRESS NOTE Name: Clarence Flores Bed: G090 [id number]/[id number] Date: December 23, 2018 After Hours [facility] [place] [facility] Pager: [phone] ASSESSMENT AND PLAN Clarence Flores is a [...] Imaging n/a Clarence Schmidt MD Personal Pager: [phone] For weekend or after hours issues [place] [phone] Normal [facility] ANES Ferny 12-22-2018 ANES POST HNO ID: [id number] Author: Salvatore Lacey Service: Anesthesiology Author Type: [...] 22, 2018 TIME: 12:16 PM PAGER/CONTACT #: [phone] Normal [facility] Basic Metabolic Panlon 12-22 Anion gap [Moles/Vol] 10 mmol/L Normal 9-18 [facility] Comment on above: Performed By: #### C BCDIF, BMP ####[facility], [place] [phone] Calcium [Mass/Vol] 8.0 mg/dL Low 8.5-10.2 [facility] Comment on above: Performed By: #### C BCDIF, BMP ####[facility], [place] [phone] Chloride [Moles/Vol] 105 mmol/L Normal 97-105 [facility] Comment on above: Performed By: #### C BCDIF, BMP ####[facility] [address], [place] [phone] CO2 [Moles/Vol] 23 mmol/L Normal 22-30 [place] [facility] Comment on above: Performed By: #### C BCDIF, BMP ####[facility] [address], [place] [phone] Creatinine [Mass/Vol] 1.17 mg/dL Normal 0.73-1.22 [facility] Comment on above: Performed By: #### C BCDIF, BMP ####[facility], [place] [phone] eGFR- Amer. >60 Normal [facility] Comment on above: Performed By: #### C KAREL, BMP ####[facility] [place], [place] [phone] GFR/1.73 sq M predicted among non-blacks MDRD (S/P/Bld) [Vol rate/Area] mL/min/{1.73_m2} Normal [facility] Comment on above: Result Comment: eGFR (Estimated [...] Performed By: #### C KAREL, BMP ####[facility] [place], [place] [phone] Glucose [Mass/Vol] 168 mg/dL High 74-99 [facility] Comment on above: Result Comment: The [place] Diabetes Association (ADA) provides guidance for cutoff [...] Standards of Medical Care in Diabetes 2016, [place] Diabetes Association. Diabetes Care. 2016.39(Suppl 1). Performed By: #### C KAREL, BMP ####[facility] [place], [place] [phone] Potassium [Moles/Vol] 5.5 mmol/L High 3.7-5.1 [facility] Comment on above: Result Comment: Resu lts may be falsely increased due to interference by hemolysis. Suggest reorder as clinically indicated. Performed By: #### C BCDIF, BMP ####[place] [address] [address] Ave[address] [place] [phone] Sodium [Moles/Vol] 138 mmol/L Normal 136-144 [facility] Comment on above: Performed By: #### C BCDIF, BMP ####[place] [address] [phone] Urea nitrogen [Mass/Vol] 9 mg/dL Normal 9-24 [facility] Comment on above: Performed By: #### C BCDIF, BMP ####[place] [address] [place] [phone] CBC and Differentialon 12-22 Abs Baso 0.07 k/uL Normal <0.11 [facility] Comment on above: Performed By: #### C BCDIF, BMP ####[place] [address] [address] [phone] Abs [place] 0.89 k/uL High <0.87 [facility] Comment on above: Performed By: #### C BCDIF, BMP ####[place] [address] [address] [place] [phone] Abs Neut 13.53 k/uL High 1.45-7.50 [facility] Comment on above: Performed By: #### C BCDIF, BMP ####[place] [address] [phone] Absolute nRBC <0.01 Normal <0.01 [facility] Comment on above: Performed By: #### C BCDIF, BMP ####[place] [address] [place] [phone] Basophils/100 WBC (Bld) 0.4 % Normal [facility] Comment on above: Performed By: #### C BCDIF, BMP ####[place] [address] [phone] DTYPE Auto Diff Normal [facility] Comment on above: Performed By: #### C BCDIF, BMP ####[place] [address] [place] [phone] Eosinophils (Bld) [#/Vol] 0.06 10*3/uL Normal <0.46 [facility] Comment on above: Performed By: #### C BCDIF, BMP ####[place] [address] [address] [phone] Eosinophils/100 WBC (Bld) 0.4 % Normal [facility] Comment on above: Performed By: #### C BCDIF, BMP ####[place] [address] [phone] Erythrocyte distribution width (RBC) [Ratio] 13.6 % Normal 11.5-15.0 [facility] Comment on above: Performed By: #### C BCDIF, BMP ####[place] [address] [phone] Hematocrit (Bld) [Volume fraction] 46.4 % Normal 39.0-51.0 [facility] Comment on above: Performed By: #### C BCDIF, BMP ####[place] [address]ClevelB[address] [place] [phone] Hemoglobin (Bld) [Mass/Vol] 15.4 g/dL Normal 13.0-17.0 [facility] Comment on above: Performed By: #### C BCDIF, BMP ####[place] [address] [phone] Lymphocytes (Bld) [#/Vol] 1.09 10*3/uL Normal 1.00-4.00 [facility] Comment on above: Performed By: #### C BCDIF, BMP ####[place] [address], [place] [phone] Lymphocytes/100 WBC (Bld) 7.0 % Normal [facility] Comment on above: Performed By: #### C BCDIF, BMP ####[place] [address], [place] [phone] MCH (RBC) [Entitic mass] 28.7 pG Normal 26.0-34.0 [facility] Comment on above: Performed By: #### C BCDIF, BMP ####[place] [address] [phone] MCHC (RBC) [Mass/Vol] 33.2 g/dL Normal 30.5-36.0 [facility] Comment on above: Performed By: #### C BCDIF, BMP ####[place] [address] [phone] MCV (RBC) [Entitic vol] 86.4 fL Normal 80.0-100.0 [facility] Comment on above: Performed By: #### C BCDIF, BMP ####[place] [address], [place] [phone] Monocytes/100 WBC (Bld) 5.7 % Normal [facility] Comment on above: Performed By: #### C BCDIF, BMP ####[place] [address], [place] [phone] Neutrophils/100 WBC (Bld) 86.5 % Normal [facility] Comment on above: Performed By: #### C BCDIF, BMP ####[place] [address], [place] [phone] NRBCs 0.0 /100 WBC Normal 0 [facility] Comment on above: Performed By: #### C BCDIF, BMP ####[place] [address], [place] [phone] Platelet mean volume (Bld) [Entitic vol] 9.8 fL Normal 9.0-12.7 [facility] Comment on above: Performed By: #### C BCDIF, BMP ####[address] [place], [place] [phone] Platelets (Bld) [#/Vol] 263 10*3/uL Normal 150-400 [facility] Comment on above: Performed By: #### C BCDIF, BMP ####[address] [phone] RBC (Bld) [#/Vol] 5.37 10*6/uL Normal 4.20-6.00 [facility] Comment on above: Performed By: #### C BCDIF, BMP ####[address] [phone] WBC (Bld) [#/Vol] 15.64 10*3/uL High 3.70-11.00 [facility] Comment on above: Performed By: #### C BCDIF, BMP ####[address] [phone] CNCOon 12-22-2018 CNCO Letter Text [facility] NURSING PROGon 12-22-2018 NURSING PROG HNO ID: [id number] Author: Yoly De Jesus RN Service: Nursing [...] Jesus RN MSN In Department: HOSP MAIN [facility] Normal [facility] OPERATIVE NOon 12-22-2018 OPERATIVE NO HNO ID: [id number] Author: Cyrus Justice Service: Urology Author Type: Resident Type: Operative Report Filed: 12/22/2018 11:07 AM Note Text: -- Attestation signed by Maico Ang at 12/22/2018 11:58 AM . -- OPERATIVE/PROCEDURE REPORT LOG ID: [id number] Surgery/Procedure Date: 12/22/2018 Incision/Procedure Start Time: 8:19 AM Incision Close/Procedure End Time: 10:48 AM Surgeon(s)/Proceduralist(s ) and Piece Dyeing Machine Tender(s): Surgeon(s) and Role: * Maico Ang - [...] robotic ports and one 12-mm airseal assistant chief nursing officer port were placed. The robot was then [...] vision. We then extended our 12mm assistant chief nursing officer port site cephalad and extracted our specimen through this. We then mobilized his umbilical hernia sac. Herniated mesentery was delivered out of the hernia sac and sac dissected completely free off the skin. The fascia was then closed using interrupted ermcdr-xh-lsass 0-prolene sutures. 3-0 vicryl was used to [...] 1.left renal neoplasm Tissue Kidney taken by [facility] Pathology Routine 2.hernia sac Tissue taken by [facility] Pathology Routine Implantable Devices: None Drains: 10-flat SHELBY drain and jacques catheter (18-turkmen coude with 10cc balloon) Complications: None Accidental [...] 22, 2018 TIME: 10:48 AM PAGER/CONTACT #: [phone] [facility] PROGRESSon 12-22-2018 PROGRESS HNO ID: [id number] Author: Clarence Schmidt Service: Urology Author Type: Resident Type: Progress Notes Filed: 12/22/2018 4:14 PM Note Text: [facility] UROLOGY PROGRESS NOTE Name: Clarence Flores Bed: G090 [id number]/[id number] Date: December 22, 2018 After Hours [facility] Urology Service Pager: [phone] ASSESSMENT AND PLAN Clarence Flores is a [...] voluntary guarded without peritonitic signs, comfortable at [facility] Wound: Binder in place, dressing c/d/i : [...] Imaging n/a Clarence Schmidt MD Personal Pager: [phone] For weekend or after hours issues [place] [phone] Normal [facility] PROGRESS HNO ID: [id number] Author: Valeria (Rn) FIORELLA Moreno Service: ? Author Type: Registered Nurse Type: Progress Notes Filed: 12/22/2018 2:26 PM Note Text: Admission/Transfer Note PATIENT NAME: Clarence Flores Patient admitted from PACU via stretcher in stable condition. Actions taken: Patient oriented to room, call light function, prescribed activities, Patient rights and Quiet at night. This note was completed by: Valeria Moreno RN [facility] Potassiumon 12-22-2018 Potassium [Moles/Vol] 4.2 mmol/L Normal 3.7-5.1 [facility] Comment on above: Performed By: #### K 1 ####[facility] [address] [place], [place] [phone] SURGICAL PATHOLOGYon 019 SURGICAL PATHOLOGY Specimen originated from [facility] Specimen #: [id number] Submitting Physician: MAICO ANG ([id number]) FINAL DIAGNOSIS [...] Pathologic Findings in Nonneoplastic Kidney: Insufficient tissue Front Desk Specialist Tumor Block: Specify: A1 ---- Meño Hamilton [...] appear to extend beyond the capsular surface. Front Desk Specialist sections are submitted as follows: A1-A3 mass with renal sinus/parenchymal margin, A4-A5 mass with capsular surface. WE/glw 12/22/2018 B. Received fresh labeled hernia sac is a segment of cote pink fibromembranous soft tissue measuring 4.7 x 1.9 x 0.6 cm. No nodularity or induration is identified. Front Desk Specialist sections are submitted in formalin in cassette B1. VINICIO/rw 12/22/2018 Gross examination performed at [place] [address] [place] [address] Date of Report: 12/24/2018 Date of Procedure: 12/22/2018 Date of Receipt: 12/22/2018 Submitted by: MAICO ANG ([id number]) Location: G90 Diagnostic interpretation performed at [place] [address] [place] [address]. [place] Number: [id number] Normal [facility] APTTon 12-17-2018 aPTT Coag (Bld) [Time] 28.8 s Normal 23.0-32.4 Cl [facility] Comment on above: Result Comment: Unfr [...] laboratory APTT reagent in use throughout the [facility]. Performed By: #### P T, PTT, CBC, CMP #### [place] [address] [address] CBCon 12-17-2018 Absolute nRBC <0.01 Normal <0.01 [facility] Comment on above: Performed By: #### P T, PTT, CBC, CMP #### [place] [address] [place], [place] [address] Erythrocyte distribution width (RBC) [Ratio] 13.2 % Normal 11.5-15.0 [facility] Comment on above: Performed By: #### P T, PTT, CBC, CMP #### [place] [address] [place], [place] [address] Hematocrit (Bld) [Volume fraction] 46.7 % Normal 39.0-51.0 [facility] Comment on above: Performed By: #### P T, PTT, CBC, CMP #### [place] [address] Hemoglobin (Bld) [Mass/Vol] 15.7 g/dL Normal 13.0-17.0 [facility] Comment on above: Performed By: #### P T, PTT, CBC, CMP #### [place] [address] MCH (RBC) [Entitic mass] 28.6 pG Normal 26.0-34.0 [facility] Comment on above: Performed By: #### P T, PTT, CBC, CMP #### [place] [address] MCHC (RBC) [Mass/Vol] 33.6 g/dL Normal 30.5-36.0 [facility] Comment on above: Performed By: #### P T, PTT, CBC, CMP #### [place] [address] MCV (RBC) [Entitic vol] 85.2 fL Normal 80.0-100.0 [facility] Comment on above: Performed By: #### P T, PTT, CBC, CMP #### [address] [address] Platelet mean volume (Bld) [Entitic vol] 9.9 fL Normal 9.0-12.7 [facility] Comment on above: Performed By: #### P T, PTT, CBC, CMP #### [facility] [address] [place] [address] Platelets (Bld) [#/Vol] 322 10*3/uL Normal 150-400 [facility] Comment on above: Performed By: #### P T, PTT, CBC, CMP #### [place] [address] RBC (Bld) [#/Vol] 5.48 10*6/uL Normal 4.20-6.00 [facility] Comment on above: Performed By: #### P T, PTT, CBC, CMP #### [place] [address] [place] [address] WBC (Bld) [#/Vol] 9.33 10*3/uL Normal 3.70-11.00 [facility] Comment on above: Performed By: #### P T, PTT, CBC, CMP #### [place] [id number] ELISEOVbe 12-17-2018 CNOV Office Visit (PSSCMN ) -- CLARENCE FLORES ([id number]) 1960 M Date Time Provider Department 12/17/18 12:00 PM [facility] PSSCMN During your visit today, we [...] PAGER/CONTACT #: addendum labs and ekg to [facility]; Aimee Romero RN Lab Value Units Date [...] 8:41:34 AM ? Referring Provider: MAICO ANG [[id number]] Allergies As of Date: 12/17/2018 Noted Allergy Reaction NITROGLYCERIN 11/26/2018 14 - Other: See Comments Date Reviewed: 12/17/2018 Reviewed by: Aimee Richrads (Rn) Linda - Fully Assessed Primary Visit [...] Chart Close Cosign Accepted by: PERCY BERTRAND MD[[id number]] Chart Close Cosign Accepted on: FriDec 17, 2018 12:54 PM Normal [facility] CNOV Office Visit (UROLMN ) -- CLARENCE FLORES ([id number]) 1960 M Date Time Provider Department 12/17/18 9:15 AM JESSICA HERRERA ([facility]) UROLMJenny During your visit today, we recorded the following information about you: Pulse Blood pressure Weight Height 64/minute 169/96 119.8 kg 1.676 m Jessica Herrera CNP 12/17/2018 9:57 AM Signed UROLOGY SURGICAL HANDP SERVICE DATE: 12/17/2018 REFERRING PROVIDER: Maico Ang MD [address] [facility] [place] [address] PCP: Shea Beach MD GENDER: SUBJECTIVE CHIEF [...] or problems. No history of angina, CHF, MA, cardiac surgery of stents. +history of HTN [...] problems. Neurologic: No history of TIA's, stroke, WIRE MESH FILTER FABRICATOR tumor, impaired sensorium, hemiplegia, paraplegia or quadriplegia. [...] TIME: 12:38 PM PAGER/CONTACT #: [facility] PRE-OP NOTE Clarence Flores is a 58 year old male. Pre-op Date: December 16, 2018 Date of Procedure: 12/22/2018 Procedure/Surgery: Robotic L partial Nx Diagnosis: L renal mass Primary Surgeon: MD Allie, [facility] Score: tbd BP 169/96 (BP Site: [...] CNP Electronically signed Referring Provider: MAICO ANG [[id number]] Allergies As of Date: 12/17/2018 Noted Allergy Reaction NITROGLYCERIN 11/26/2018 14 - Other: See Comments Date Reviewed: 12/17/2018 Reviewed by: Jessica (Jose) Summer - Fully Assessed Visit Diagnosis:Left renal mass [N28.89] Prescriptions as of 12/17/2018 Sig: HYDRALAZINE 50 MG TABLET Take 1 tablet by mouth twice * METOPROLOL SUCCINATE ER 25 MG* Take 1 tablet by mouth twice * Problem List As Of Date 12/17/2018 Noted Resolved Left renal mass [N28.89] Encounter Status:Closed by JESSICA HERRERA CNP on 12/17/18 Normal [facility] Comp Metabolic Panelon 12-17 Albumin [Mass/Vol] 4.3 g/dL Normal 3.9-4.9 [facility] Comment on above: Performed By: #### P T, PTT, CBC, CMP ####[address] [phone] ALP [Catalytic activity/Vol] 56 U/L Normal 38-113 [facility] Comment on above: Performed By: #### P T, PTT, CBC, CMP ####[address] [phone] ALT [Catalytic activity/Vol] 22 U/L Normal 10-54 [facility] Comment on above: Performed By: #### P T, PTT, CBC, CMP ####[address] [phone] Anion gap [Moles/Vol] 13 mmol/L Normal 9-18 [facility] Comment on above: Performed By: #### P T, PTT, CBC, CMP ####[address] [phone] AST [Catalytic activity/Vol] 25 U/L Normal 14-40 [facility] Comment on above: Performed By: #### P T, PTT, CBC, CMP ####[address] [phone] Bilirubin [Mass/Vol] 0.4 mg/dL Normal 0.2-1.3 [facility] Comment on above: Performed By: #### P T, PTT, CBC, CMP ####[address] [phone] Calcium [Mass/Vol] 9.3 mg/dL Normal 8.5-10.2 [facility] Comment on above: Performed By: #### P T, PTT, CBC, CMP ####[place] [phone] Chloride [Moles/Vol] 105 mmol/L Normal 97-105 [facility] Comment on above: Performed By: #### P T, PTT, CBC, CMP ####[place] [phone] CO2 [Moles/Vol] 21 mmol/L Low 22-30 [facility] Comment on above: Performed By: #### P T, PTT, CBC, CMP ####[place] [phone] Creatinine [Mass/Vol] 1.20 mg/dL Normal 0.73-1.22 [facility] Comment on above: Performed By: #### P T, PTT, CBC, CMP ####[address] [phone] eGFR- Amer. >60 Normal [facility] Comment on above: Performed By: #### P T, PTT, CBC, CMP ####[place] [phone] GFR/1.73 sq M predicted among non-blacks MDRD (S/P/Bld) [Vol rate/Area] mL/min/{1.73_m2} Normal [facility] Comment on above: Result Comment: eGFR (Estimated [...] #### P T, PTT, CBC, CMP ####[facility] [place] [address] [phone] Glucose [Mass/Vol] 105 mg/dL High 74-99 [facility] Comment on above: Result Comment: The [place] Diabetes Association (ADA) provides guidance for cutoff [...] Standards of Medical Care in Diabetes 2016, [place] Diabetes Association. Diabetes Care. 2016.39(Suppl 1). Performed By: #### P T, PTT, CBC, CMP ####[facility] [place] [address] [phone] Potassium [Moles/Vol] 4.0 mmol/L Normal 3.7-5.1 [facility] Comment on above: Performed By: #### P T, PTT, CBC, CMP ####[address] [phone] Protein [Mass/Vol] 7.1 g/dL Normal 6.3-8.0 [facility] Comment on above: Performed By: #### P T, PTT, CBC, CMP ####[address], [place] [phone] Sodium [Moles/Vol] 139 mmol/L Normal 136-144 [facility] Comment on above: Performed By: #### P T, PTT, CBC, CMP ####[place] [address] [place], [place] [phone] Urea nitrogen [Mass/Vol] 13 mg/dL Normal 9-24 [facility] Comment on above: Performed By: #### P T, PTT, CBC, CMP ####[place] [address] [place], [place] [phone] Confirm Blood Typeon 019 ABO/RH(D) Positive Normal [facility] Comment on above: Performed By: #### C ONABO ####[facility] [place], [place] [phone] ECG COMPLETEon 12-17-2018 ECG COMPLETE NAME : CLARENCE FLORES PID : [id number] : 1960 Gender : Male Race : ORD : [id number] Procedure Date : Dec 17 2018 10:39:05 Edit Date : Dec 18 2018 08:41:40 Diagnosis:NORMAL SINUS RHYTHM NORMAL ECG Confirmed by TARIQ DRUMMOND MD ([id number]) on 12/18/2018 8:41:34 AM Ventricular Rate : 63 BPM Atrial Rate : 63 BPM P-R Interval : 160 ms QRS Duration : 94 ms Q-T Interval : 420 ms QTC Calculation(Bazett) : 429 ms P Jermyn : 36 degrees R Jermyn : 69 degrees T Jermyn : 80 degrees Test Reason : Location : 119 : A17 A17 Overread By : TARIQ DRUMMOND MD Edited By : TARIQ DRUMMOND MD Referred By : MAICO ANG Acquired by : PARIS ESTEVES [facility] PROGRESSon 12-17-2018 PROGRESS HNO ID: [id number] Author: Aimee SandersRn) Linda Service: ? Author Type: Registered Nurse [...] PAGER/CONTACT #: addendum labs and ekg to [facility]; Aimee Romero RN Lab Value Units Date [...] (65) on 12/18/2018 8:41:34 AM ? Normal [facility] Protimeon 12-17-2018 PT Coag (PPP) [Time] 10.8 s Normal 9.7-13.0 [facility] Comment on above: Performed By: #### P T, PTT, CBC, CMP #### [facility] [employer] [address] [place], [place] [address] PT Coag (PPP) [Time] 1.0 s Normal 0.9-1.3 [facility] Comment on above: Result Comment: Tyra min K Antagonist (VKA) Therapeutic Range: INR 2 to 3 (Target INR of 2.5) Note: For patients treated with VKA drugs, such as warfarin, the [place] [employer] 2012 Guideline recommends [...] Chest 2012, 141:7S-47S Pablito RA, et al. [facility] 2017, 70: 252-289 Performed By: #### P T, PTT, CBC, CMP #### [facility] [employer] [address] [place], [place] [address] Type and SCR (30D)on 019 ABO/RH(D) Positive Normal [facility] Comment on above: Performed By: #### T SCR30 ####[facility] [address], [place] [phone] Flavio 12-16-2018 MITCH Patient Outreach (UR OLMN) -- CLARENCE FLORES ([id number]) 1960 M Date Time Provider Department 12/16/18 JESSICA HERRERA) FRIDA During your visit today, we recorded the following information about you: Allergies As of Date: 12/16/2018 Noted Allergy Reaction NITROGLYCERIN 11/26/2018 14 - Other: See Comments Date Reviewed: 11/26/2018 Reviewed by: Monica Shah - Fully Assessed Visit Diagnosis:Screening for genitourinary condition [Z13.89] Order(s):UA CHEMSTRIP ONLY [SQUA] Order #: [id number] Prescriptions as of 12/16/2018 Sig: OXYCODONE 5 [...] Left renal mass [N28.89] Encounter Status:Closed by [employer], PRODUSER on 12/31/18 Normal [facility] HISTORY PHYSICALon 9 HISTORY PHYSICAL HNO ID: [id number] Author: Jessica Herrera Service: ? Author Type: Nurse Practitioner Type: HANDP Filed: 12/17/2018 9:57 AM Note Text: UROLOGY SURGICAL HANDP SERVICE DATE: 12/17/2018 REFERRING PROVIDER: Maico Ang MD [address] [facility] [place] [address] PCP: Shea Beach MD GENDER: SUBJECTIVE CHIEF [...] or problems. No history of angina, CHF, MA, cardiac surgery of stents. +history of HTN [...] problems. Neurologic: No history of TIA's, stroke, WIRE MESH FILTER FABRICATOR tumor, impaired sensorium, hemiplegia, paraplegia or quadriplegia. [...] TIME: 12:38 PM PAGER/CONTACT #: [facility] PRE-OP NOTE Clarence Flores is a 58 year old male. Pre-op Date: December 16, 2018 Date of Procedure: 12/22/2018 Procedure/Surgery: Robotic L partial Nx Diagnosis: L renal mass Primary Surgeon: MD Allie, [facility] Healthquest Score: tbd BP 169/96 [...] EKG. Jessica Herrera CNP Electronically signed Normal [facility] CNOVon 11-26-2018 CNOV Office Visit (UROLMN ) -- CLARENCE FLORES ([id number]) 1960 M Date Time Provider Department 11/26/18 9:00 AM MAICO ANG During your visit today, we recorded the following information about you: Pulse Blood pressure Weight Height 67/minute 165/98 118 kg 1.676 m Maico Ang MD 11/29/2018 6:01 AM Signed [facility] NEW PATIENT HISTORY AND PHYSICAL EXAM PATIENT INFO: Clarence Flores 58 year old REFERRING M.D.: Damien Sales MD [address] [facility] [address] CHIEF COMPLAINT: left renal mass 58 y/o [...] file Gets together: Not on file Attends [employer] service: Not on file Active member of [...] PLAN: Per Staff Benton Dillon PA-C Pager [phone] Office [phone] I saw and evaluated the patient; the history and exam were reviewed with the PA/resident and confirmed by me; and the plan is outlined below. healthy 58 yr obese male with L lower pole [address] reviewed DW pt and family rec attempt RPNx they agree to proceed, will schedule Maico Ang MD Referring Provider: DAMIEN SALES [[id number]] Allergies As of Date: 11/26/2018 Noted Allergy Reaction NITROGLYCERIN 11/26/2018 14 - Other: See Comments Date Reviewed: 11/26/2018 Reviewed by: Monica Smith) Alyssa - Fully Assessed Primary Visit Diagnosis:Renal mass [N28.89] Prescriptions as of 11/26/2018 Sig: HYDRALAZINE 50 MG TABLET Take 1 tablet by mouth twice * METOPROLOL SUCCINATE ER 25 MG* Take 1 tablet by mouth twice * Problem List As Of Date: 11/26/2018 (None) Encounter Status:Closed by MAICO ANG MD on 11/29/18 [facility] HOSP 11-26-2018 HOSP Patient:Clarence Flores MRN: Height:5' 6 (1.676 m) [...] 46.7 % 12/17/2018 51.0 39.0 Progress Notes ([facility]): Aimee Romero RN 12/21/2018 9:03 AM [...] PAGER/CONTACT #: addendum labs and ekg to [facility]; Aimee Romero RN Lab Value Units Date [...] MD 11/29/2018 6:01 AM Signed [facility] NEW PATIENT HISTORY AND PHYSICAL EXAM PATIENT INFO: Clarence Flores 58 year old REFERRING M.D.: Damien Sales MD [address] [facility] [address] CHIEF COMPLAINT: left renal mass 58 y/o [...] file Gets together: Not on file Attends baptist service: Not on file Active member of [...] PLAN: Per Staff Benton Dillon PA-C Pager [phone] Office [phone] I saw and evaluated the patient; the history and exam were reviewed with the PA/resident and confirmed by me; and the plan is outlined below. healthy 58 yr obese male with L lower pole [address] reviewed DW pt and family rec attempt RPNx they agree to proceed, will schedule Maico Ang MD Previous Version Normal [facility] PROGRESSon 11-26-2018 PROGRESS HNO ID: [id number] Author: Maico Ang Service: ? Author Type: Physician Type: Progress Notes Filed: 11/29/2018 6:01 AM Note Text: [facility] NEW PATIENT HISTORY AND PHYSICAL EXAM PATIENT INFO: Clarence Flores 58 year old REFERRING M.D.: Damien Sales MD [address] [facility] [address] CHIEF COMPLAINT: left renal mass 58 y/o [...] file Gets together: Not on file Attends baptist service: Not on file Active member of [...] PLAN: Per Staff Benton Dillon PA-C Pager [phone] Office [phone] I saw and evaluated the patient; the history and exam were reviewed with the PA/resident and confirmed by me; and the plan is outlined below. healthy 58 yr obese male with L lower pole [address] reviewed DW pt and family rec attempt RPNx they agree to proceed, will schedule Maico Ang MD Normal [facility] OT-CT CHEST W CON IMPORTon 1 OT-CT CHEST W CON IMPORT Images were obtained outside of [facility] [id number] Normal [facility] OT-CT ABDOMEN WO/W CON IMPOR Ton 11-05-2018 OT-CT ABDOMEN WO/W CON IMPORT Images were obtained outside of [facility] [id number] Normal [facility] CT-CT ABD/PELVIS WO CON IMPO RTon 10-05-2018 CT-CT ABD/PELVIS WO CON IMPORT Images were obtained outside of [facility] [id number] Normal [facility] Vital Signs Date Time Vital Sign Value Performing Clinician Facility 02-13-2024 15:36-0500 Body height 167.6 cm Leon TeleFlip DO Work Phone: [facility] 02-13-2024 15:36-0500 Body mass index (BMI) [Ratio] 34.7 kg/m2 Leon TeleFlip DO Work Phone: [facility] 02-13-2024 15:36-0500 Body weight 97.52 kg Leon BiedPapirus DO Work Phone: [facility] 01-30-2024 15:19-0500 Body height 167.6 cm Leon BiedPapirus DO Work Phone: [facility] [employer] 01-30-2024 15:19-0500 Body mass index (BMI) [Ratio] 34.7 kg/m2 Leon [email or web address] DO Work Phone: [facility] [employer] 01-30-2024 15:19-0500 Body weight 97.52 kg Leon BiedPapirus DO Work Phone: [facility] 01-12-2024 15:53-0500 Body mass index (BMI) [Ratio] 36.96 kg/m2 Jany Navarrete MD Work Phone: [facility] 01-12-2024 15:53-0500 Body weight 103.87 kg Jany Navarrete MD Work Phone: [facility] 12-17-2023 14:31-0500 Body height 167.6 cm Jany Navarrete MD Work Phone: [facility] 12-17-2023 14:31-0500 Body mass index (BMI) [Ratio] 35.83 kg/m2 Jany Navarrete MD Work Phone: [facility] 12-17-2023 14:31-0500 Body weight 100.7 kg Jany Navarrete MD Work Phone: [facility] 11-12-2023 14:50-0400 Body height 167.6 cm Rachel Mckeon STAVE BLOCK ROLLER Work Phone: [facility] 11-12-2023 14:50-0400 Body mass index (BMI) [Ratio] 35.67 kg/m2 Rachel Fosterr STAVE BLOCK ROLLER Work Phone: [facility] 11-12-2023 14:50-0400 Body weight 100.25 kg Rachel Fosterr STAVE BLOCK ROLLER Work Phone: [facility] 11-12-2023 14:50-0400 Diastolic blood pressure 72 mm[Hg] Rachel Fosterr STAVE BLOCK ROLLER Work Phone: [facility] 11-12-2023 14:50-0400 Heart rate 69 /min Rachel Ambermor STAVE BLOCK ROLLER Work Phone: [facility] 11-12-2023 14:50-0400 SaO2% (BldA) [Mass fraction] 95 % Rachel Ambermor STAVE BLOCK ROLLER Work Phone: [facility] 11-12-2023 14:50-0400 Systolic blood pressure 138 mm[Hg] Rachel Fosterr STAVE BLOCK ROLLER Work Phone: [facility] 10-31-2023 09:06-0400 Body height 167.6 cm Mike Morelos DO Work Phone: [facility] 10-31-2023 09:06-0400 Body mass index (BMI) [Ratio] 34.7 kg/m2 Mike Morelos DO Work Phone: [facility] 10-31-2023 09:06-0400 Body weight 97.52 kg Mike Morelos DO Work Phone: [facility] 10-31-2023 09:06-0400 Diastolic blood pressure 76 mm[Hg] Mike Morelos DO Work Phone: [facility] 10-31-2023 09:06-0400 Heart rate 64 /min Mike Morelos DO Work Phone: [facility] 10-31-2023 09:06-0400 Systolic blood pressure 116 mm[Hg] Mike Morelos DO Work Phone: [facility] 07-14-2023 14:01-0400 Blood Pressure Location Tariq NILL [facility] [place] 07-14-2023 14:01-0400 Diastolic blood pressure 72 mm[Hg] Tariq NILL [facility] [place] 07-14-2023 14:01-0400 Heart rate 74 /min Tariq NILL [facility] [place] 07-14-2023 14:01-0400 Respiratory rate 16 /min Tariq NILL [facility] [place] 07-14-2023 14:01-0400 Systolic blood pressure 112 mm[Hg] Tariq NILL [facility] [place] 04-23-2023 15:37-0400 Body mass index (BMI) [Ratio] 40.84 kg/m2 Andra MAYES Work Phone: [facility] 04-23-2023 15:37-0400 Body weight 114.76 kg Andra Ramirez HOME SCHOOL LIAISON OFFICER-TAX MANAGER Work Phone: [facility] 04-23-2023 15:37-0400 Diastolic blood pressure 70 mm[Hg] Andra Ramirez HOME SCHOOL LIAISON OFFICER-TAX MANAGER Work Phone: [facility] 04-23-2023 15:37-0400 Heart rate 82 /min Andra Ramirez HOME SCHOOL LIAISON OFFICER-TAX MANAGER Work Phone: [facility] 04-23-2023 15:37-0400 Systolic blood pressure 112 mm[Hg] Andra Ramirez HOME SCHOOL LIAISON OFFICER-TAX MANAGER Work Phone: [facility] 01-22-2023 15:36-0500 Body height 167.6 cm Andra Ramirez HOME SCHOOL LIAISON OFFICER-TAX MANAGER Work Phone: [facility] 01-22-2023 15:36-0500 Body mass index (BMI) [Ratio] 44.87 kg/m2 Andra Ramirez HOME SCHOOL LIAISON OFFICER-TAX MANAGER Work Phone: [facility] 01-22-2023 15:36-0500 Body weight 126.1 kg Andra Ramirez HOME SCHOOL LIAISON OFFICER-TAX MANAGER Work Phone: [facility] 01-22-2023 15:36-0500 Diastolic blood pressure 98 mm[Hg] Andra Ramirez HOME SCHOOL LIAISON OFFICER-TAX MANAGER Work Phone: [facility] 01-22-2023 15:36-0500 Heart rate 76 /min Andra Ramirez HOME SCHOOL LIAISON OFFICER-TAX MANAGER Work Phone: [facility] 01-22-2023 15:36-0500 Systolic blood pressure 168 mm[Hg] Andra Ramirez HOME SCHOOL LIAISON OFFICER-TAX MANAGER Work Phone: [facility] 2022 04:47-0400 Diastolic blood pressure 67 mm[Hg] MD Shea Beach Work Phone: [facility] 2022 04:47-0400 Heart rate 72 /min MD Shea Beach Work Phone: [facility] 2022 04:47-0400 Respiratory rate 20 /min MD Shea Beach Work Phone: [facility] 2022 04:47-0400 SaO2% (BldA) [Mass fraction] 96 % MD Shea Beach Work Phone: [facility] 2022 04:47-0400 Systolic blood pressure 147 mm[Hg] MD Shea Beach Work Phone: [facility] 11-09-2022 22:35-0400 Body height 167.64 cm MD Shea Beach Work Phone: [facility] 11-09-2022 22:35-0400 Body temperature 98 [degF] MD Shea Beach Work Phone: [facility] 11-09-2022 22:35-0400 Body weight 129.8 kg MD Shea Beach Work Phone: [facility] Encounters Encounter Date Encounter Type Care Provider Facility Start: 03-26-2024 End: 03-26-2024 Bamboo flowsheet Leon S Biedenbach DO Work Phone: [facility] Start: 03-26-2024 End: 03-26-2024 Bamboo flowsheet Leon S Biedenbach DO Work Phone: [facility] Start: 03-18-2024 End: 03-18-2024 ambulatory LEON S BIEDENBACH Not Available Start: 03-05-2024 End: 03-05-2024 ambulatory LEON S BIEDENBACH Not Available Start: 03-05-2024 End: 03-05-2024 Bamboo flowsheet Leon S Biedenbach DO Work Phone: [facility] Start: 03-05-2024 End: 03-05-2024 Bamboo flowsheet Leon S Biedenbach DO Work Phone: [facility] Start: 02-13-2024 End: 02-13-2024 Office outpatient visit 25 minutes Leon Castro DO Work Phone: [facility] Comment on above: Sinusitis, unspecifi ed chronicity, unspecified location (Primary Dx); Nasal congestion; Chronic anticoagulation Start: 02-13-2024 End: 02-13-2024 ambulatory LEON CASTRO Not Available Start: 02-12-2024 End: 02-12-2024 Office outpatient visit 15 minutes Jany Navarrete MD Work Phone: [facility] Comment on above: Acute maxillary sinu sitis, recurrence not specified (Primary Dx) Start: 02-12-2024 End: 02-12-2024 ambulatory JANY NAVARRETE Not Available Start: 02-12-2024 End: 02-12-2024 Bamboo flowsalesia Navarrete MD Work Phone: [facility] Start: 02-12-2024 End: 02-12-2024 Bamboo flowsalesia Navarrete MD Work Phone: [facility] Start: 01-30-2024 End: 01-30-2024 Office outpatient new 45 minutes Leon Castro DO Work Phone: [facility] Comment on above: Chronic anticoagulat ion (Primary Dx); Sinusitis, unspecified chronicity, unspecified location; Nasal congestion Start: 01-30-2024 End: 01-30-2024 ambulatory LEON CASTRO Not Available Start: 01-30-2024 End: 01-30-2024 Bamboo flowsheet Leon Castro DO Work Phone: [facility] Start: 01-30-2024 End: 01-30-2024 Bamboo flowsheet Leon Castro DO Work Phone: [facility] Start: 01-23-2024 End: 01-23-2024 Orders Only Jany Navarrete MD Work Phone: [facility] Comment on above: Acute maxillary sinu sitis, recurrence not specified (Primary Dx) Start: 01-12-2024 End: 01-12-2024 Office outpatient visit 25 minutes Jany Navarrete MD Work Phone: [facility] Comment on above: Cough variant asthma (CMS/HCC) (Primary Dx); Acute maxillary sinusitis, recurrence not specified Start: 01-12-2024 End: 01-12-2024 ambulatory JANY NAVARRETE Not Available Start: 01-12-2024 End: 01-12-2024 Bamboo flowsalesia Navarrete MD Work Phone: [facility] Start: 01-12-2024 End: 01-12-2024 Bamboo flowsalesia Navarrete MD Work Phone: [facility] Start: 12-17-2023 End: 12-17-2023 Office outpatient new 30 minutes Jany Navarrete MD Work Phone: [facility] Comment on above: Dyspnea on exertion (Primary Dx); Chronic rhinitis Start: 12-17-2023 End: 12-17-2023 ambulatory JANY NAVARRETE Not Available Start: 12-17-2023 End: 12-17-2023 Bamboo flowsalesia Navarrete MD Work Phone: [facility] Start: 12-17-2023 End: 12-17-2023 Bamboo flowsalesia Navarrete MD Work Phone: [facility] Start: 11-12-2023 End: 11-12-2023 Office outpatient visit 25 minutes Rachel Mckeon NP Work Phone: [facility] Comment on above: TONY (obstructive sle ep apnea) (Primary Dx); Snoring; Daytime hypersomnolence Start: 11-12-2023 End: 11-12-2023 ambulatory RACHEL MCKEON Not Available Start: 11-12-2023 End: 11-12-2023 Bamboo flowsheet Rachel Mckeon STAVE BLOCK ROLLER Work Phone: [facility] [address] Start: 11-12-2023 End: 11-12-2023 Bamboo flowsheet Rachel Mckeon STAVE BLOCK ROLLER Work Phone: [facility] Start: 10-31-2023 End: 10-31-2023 Office outpatient visit 25 minutes Mike Morelos DO Work Phone: [facility] Comment on above: Paroxysmal atrial fi brillation (Multi); Essential hypertension; Diabetes mellitus type II, non insulin dependent (Multi); Obstructive sleep apnea; BMI 34.0-34.9,adult; Never smoked tobacco; Hypertensive left ventricular hypertrophy, without heart failure Start: 10-01-2023 End: 10-01-2023 ambulatory Tariq GORDON Facility:[facility] Start: 10-01-2023 End: 10-01-2023 Patient encounter procedure Tariq GORDON [facility] Start: 09-17-2023 End: 09-17-2023 ambulatory Tariq Gordon [facility] Work Phone: Start: 09-17-2023 End: 09-17-2023 Departed Referred MD Tariq Gordon Work Phone: [facility] Path Spec [facility] Start: 09-17-2023 End: 09-17-2023 ambulatory Tariq GORDON Facility:[id number] Start: 08-28-2023 End: 08-30-2023 ambulatory [facility] Start: 08-21-2023 End: 08-23-2023 ambulatory [facility] Start: 08-21-2023 End: 08-23-2023 Subsequent hospital visit by physician Damion Hay MD Work Phone: [facility] CT Scan Comment on above: Renal cancer, left ( HCC) Start: 08-04-2023 End: 08-04-2023 ambulatory Tariq GORDON Facility:[facility] Start: 08-04-2023 End: 08-04-2023 Patient encounter procedure Tariq GORDON [facility] Start: 07-14-2023 End: 07-14-2023 ambulatory Shea Beach Facility:[facility] Start: 07-14-2023 End: 07-14-2023 Patient encounter procedure Tariq GORDON [facility] [place] Start: 06-30-2023 ambulatory Tariq GORDON Facility:[facility] Start: 06-27-2023 ambulatory Tariq PATHAKNoble Facility:[facility] Start: 04-23-2023 End: 04-23-2023 Office outpatient visit 10 minutes Andra Ramirez HOME SCHOOL LIAISON OFFICER-TAX MANAGER Work Phone: [facility] Comment on above: BMI 40.0-44.9, adult (CMS/HCC) (Primary Dx); Essential hypertension Start: 01-22-2023 End: 01-22-2023 Office outpatient visit 15 minutes Andra Ramirez HOME SCHOOL LIAISON OFFICER-TAX MANAGER Work Phone: [facility] Comment on above: Essential hypertensi on (Primary Dx); Chest pain, unspecified type; Obstructive sleep apnea; Diabetes mellitus type II, non insulin dependent (CMS/HCC); Hypertensive left ventricular hypertrophy, without heart failure; BMI 40.0-44.9, adult (CMS/HCC) Start: 12-16-2022 End: 12-16-2022 Subsequent hospital visit by physician Gema [facility] Stress Room 1 [facility] Start: 2022 Evaluation and manag ement of inpatient MD Shea Beach Work Phone: [facility] Work Phone: Start: 2022 observation encounter MD Ewa Beach Work Phone: [facility] Work Phone: Start: 2022 End: 11-12-2022 ambulatory Claudia Parra Facility:[facility] Start: 11-24-2021 End: 11-25-[address] SHEA BEACH Facility: Start: 11-07-2021 Encounter for genera l adult medical examination without abnormal findings DR SHEA BEACH [facility] Start: 11-03-2021 End: 11-03-[address] SHEA [...] Date Procedure Procedure Detail Performing Clinician Start: 09-17-2023 Colonoscopy Mike cardenas DO Work Phone: Start: 09-17-2023 Colonoscopy Tariq RED Start: 12-17-2022 Cv strs tst xers&/or rx cont ecg trcg only Mike Morelos DO Work Phone: Start: 03-24-[address] ANA BEACH Comment on above: Performed By: #### C MP #### [facility] [address] [place], [place] [address] Dr. Sunny Ortez Start: 12-17-2018 Antibody screen Comment on above: Performed By: #### T [id number] ####[facility] [id number] [place], [place] [phone] Partial nephrectomy Tariq GORDON Plan of Treatment Date Care Activity Detail Author Start: 09-16-2033 Screening for malign ant neoplasm of colon [facility] Start: 08-20-2024 Prostate specific antigen measurement Prostate Specific Antigen (PSA) Screening or Monitoring [facility] Start: 08-20-2024 Subsequent hospital visit by physician 08/20/2024 Hospital Encounter [facility] [address] [place] [id number] [facility] Start: 03-26-2024 End: 03-26-2024 Patient encounter procedure 03/26/2024 3:45 PM EST Office Visit [facility] [address] [place] [address] Leon Castro DO [address] [place] [address] Arrived [facility] Comment on above: Arrived Start: 03-05-2024 End: 03-05-2024 Patient encounter procedure [facility] Comment on above: Arrived Start: 02-18-2024 End: 02-18-2024 Patient encounter procedure 02/18/2024 3:20 PM EST Office Visit [facility] [address] [place] [phone] Jany Navarrete MD [address] [place] [address] [facility] Start: 02-13-2024 End: 02-13-2024 Patient encounter procedure 02/13/2024 3:30 PM EST Office Visit [facility] [address] [place] [phone] Leon Castro DO [address] [place] [address] [facility] Start: 02-12-2024 End: 02-12-2024 Patient encounter procedure 02/12/2024 3:40 PM EST Office Visit [facility] [address] [place] [address] Jany Navarrete MD [address] [place] [address] Arrived [facility] Comment on above: Arrived Start: 01-30-2024 End: 01-30-2024 Patient encounter procedure [facility] [place] Comment on above: Sinusitis, unspecifi ed chronicity, unspecified location; Nasal congestion Start: 01-20-2024 End: 01-20-2024 Patient encounter procedure 01/20/2024 3:30 PM EST Office Visit [facility] [address] [place] [phone] Mike Morelos DO [address] [place] [address] [facility] Start: 01-12-2024 End: 01-12-2024 Patient encounter procedure 01/12/2024 4:00 PM EST Office Visit [facility] [address] [place] [phone] Jany Navarrete MD [address] [place] [address] Arrived [facility] Comment on above: Arrived Start: 01-12-2024 End: 01-11-2025 CT Maxillofacial region WO and W contrast IV CT SINUS WO IV CONTRAST Imaging Routine Acute maxillary sinusitis, recurrence not specified Expected: 01/12/2024, Expires: 01/11/2025 [facility] Work Phone: Comment on above: Expected: 01/12/2024 , Expires: 01/11/2025 Start: 12-17-2023 End: 12-17-2023 Patient encounter procedure 12/17/2023 2:40 PM EST Office Visit [facility] [address] [place] [phone] Jany Navarrete MD [address] [place] [address] Arrived [facility] Comment on above: Arrived Start: 12-17-2023 End: 12-16-2024 CT Maxillofacial region WO and W contrast IV CT SINUS WO IV CONTRAST Imaging Routine Chronic rhinitis Expected: 12/17/2023, Ex[facility]: [facility]: Comment on above: Expected: 12/17/2023 , Expires: 12/16/2024 Start: 11-12-2023 End: 11-12-2023 Patient encounter procedure 11/12/2023 3:00 PM EDT Office Visit [facility] [address] [place] [address] Rachel Mckeon NP [address] [place], [place] Arrived [facility] Comment on above: Arrived Start: 10-31-2023 End: 10-30-2024 Holter monitor study Holter Or Event Blood Splatter Analyst Cardiac Services Routine Paroxysmal atrial fibrillation (Multi) Expected: 10/31/2023 (Approximate), Expires: 10/30/2024 [facility] Service Area Work Phone: Comment on above: Expected: 10/31/2023 (Approximate), Expires: 10/30/2024 Start: 10-12-2023 COVID-19 Vaccine ( season) COVID-19 Vaccine ( season) [facility] Start: 10-12-2023 Influenza vaccination Influenza Vacc ine (#1) [facility] Start: 09-17-2023 [facility] Start: 09-11-2023 Influenza vaccination Flu vaccine (# 1) [facility] Start: 08-28-2023 End: 08-28-2023 Patient encounter procedure 08/28/2023 2:30 PM EDT Procedure visit [facility] Part of [address] [place] [phone] Cuca Paulino, HOME SCHOOL LIAISON OFFICER - TAX MANAGER [address] [place] [address] [address] [place] [address] 3 months, CT, labs prior [facility] Part of [facility] Comment on above: 3 months, CT, labs p rior Start: 03-25-2023 End: 03-25-2023 Patient encounter procedure 03/25/2023 3:30 PM EST Office Visit [facility] [address] [facility] [address] [place] [phone] Andra Ramirez, HOME SCHOOL LIAISON OFFICER-TAX MANAGER [address] [facility] [address] [place] [address] [facility] Start: 12-17-2022 End: 12-17-2022 Professional / ancillary services management [facility] Start: 2022 Respiratory Syncytia l Virus (RSV) or age 60 yrs+ (1 - 1-dose 60+ series) Respiratory Syncytial Virus (RSV) or age 60 yrs+ (1 - 1-dose 60+ series) [facility] Start: 2022 RSV patient s and/or patients aged 60+ years (1 - 1-dose 60+ series) RSV patients and/or patients aged 60+ years (1 - 1-dose 60+ series) [facility] Start: 2022 Blood chemistry [facility] Start: 2022 Hospital admission [facility] Start: 2022 End: 2022 [facility] Start: 2022 Plain chest X-ray XR chest 2V* [facility] Start: 2022 XR Chest 2 Views [facility] Start: 10-11-2022 Influenza vaccination Influenza Vacc ine (#1) [facility] Start: 2012 Shingles vaccine (1 of 2) Shingles vaccine (1 of 2) [facility] Start: 2012 Zoster Vaccines (1 of 2) Zoste r Vaccines (1 of 2) [facility] Start: 11-11-2007 Screening for malign ant neoplasm of colon [facility] Start: 2002 Lipid panel Lipids [facility] Start: 1984 DTaP/Tdap/Td Vaccine s (1 - Tdap) DTaP/Tdap/Td Vaccines (1 - Tdap) [facility] Start: 1981 DTaP/Tdap/Td vaccine (1 - Tdap) DTaP/Tdap/Td vaccine (1 - Tdap) [facility] Start: 1981 Urine screening for protein Diabetes: Urine Protein Screening [facility] Start: 1980 Hepatitis C screening [facility] Start: 1977 HIV screening HIV screen [facility] Start: 1974 Depression Screen Depression Screen [facility] Start: 1972 Diabetic foot examination Diabetes: Foot Exam [facility] Start: 1972 Glaucoma screening Diabetes: R etinopathy Screening [facility] Start: 1968 Pneumococcal Vaccine : Pediatrics (0 to 5 Years) and At-Risk Patients (6 to 64 Years) (1 - PCV) Pneumococcal Vaccine: Pediatrics (0 to 5 Years) and At-Risk Patients (6 to 64 Years) (1 - PCV) [facility] Start: 1968 Pneumococcal Vaccine : Pediatrics (0 to 5 Years) and At-Risk Patients (6 to 64 Years) (1 of 2 - PCV) Pneumococcal Vaccine: Pediatrics (0 to 5 Years) and At-Risk Patients (6 to 64 Years) (1 of 2 - PCV) [facility] Start: 11-11-1963 MMR Vaccines (1 of 1 - Standard series) MMR Vaccines (1 of 1 - Standard series) [facility] Start: 05-12-1961 COVID-19 Vaccine (#1) COVID-19 Vacci ne (#1) [facility] Start: 1960 Hemoglobin A1c measurement Diabetes: Hemoglobin A1C [facility] Start: 1960 HIV screening HIV Screening [facility] [place] Start: 1960 Lipid panel Lipid Panel [facility] Start: 1960 Screening for malign ant neoplasm of colon [facility] Start: 1960 Yearly Adult Physical Yearly Adult P [facility] Anion gap measurement [facility] Calculated LDL cholesterol level [facility] Cholesterol.total/Ch oles terol in HDL [Mass Ratio] in Serum or Plasma [facility] End: 08-21-2023 CT Abdomen and Pelvis W contrast IV [facility] Comment on above: 1 Occurrences starti ng 08/21/2023 until 08/21/2023 Glucose measurement estimated from glycated hemoglobin [facility] NM Heart Perfusion W stress and W radionuclide IV Nuclear Stress Test Cardiac Nuclear Medicine Routine Chest pain, unspecified type 12/16/2022 8:08 AM EST [facility] Service Area Work Phone: VLDL cholesterol measurement [facility] Payers Date Payer Category Payer Unknown [id number] 2022 Self-pay 2022 Unknown [id number] 2022 Private Health Insurance [id number] 2022 Unknown [id number] 1962 Unknown [id number] 2.16.840.1.360292.3.579.2.593 1962 Unknown [id number] 2.16.840.1.414057.3.579.2.593 1962 Unknown [id number] 2.16.840.1.598644.3.579.2.593 1962 Unknown [id number] 2.16.840.1.122277.3.579.2.593 1962 Unknown [id number] 2.16.840.1.446645.3.579.2.593 1962 Unknown [id number] 2.16.840.1.780458.3.579.2.593 1962 Unknown [id number] 2.16.840.1.746842.3.579.2.593 1962 Unknown [id number] 2.16.840.1.360990.3.579.2.593 1962 Unknown [id number] 2.16.840.1.941912.3.579.2.593 1962 Unknown [id number] 2.16.840.1.676503.3.579.2.593 1962 Unknown [id number] 2.16.840.1.655927.3.579.2.173 1962 Unknown [id number] 2.16.840.1.797497.3.579.2.173 1962 Unknown [id number] 2.16.840.1.601141.3.579.2.173 1962 Unknown [id number] 2.16.840.1.599226.3.579.2.173 1962 Unknown [id number] 2.16.840.1.510002.3.579.2.727 1962 Unknown [id number] 2.16.840.1.762265.3.579.2.727 1962 Unknown [id number] 2.16.840.1.816726.3.579.2.727 1962 Unknown [id number] 2.16.840.1.177879.3.579.2.727 1962 Unknown [id number] 2.16.840.1.864573.3.579.2.1259 1962 Unknown [id number] 2.16.840.1.565546.3.579.2.1259 1962 Unknown [id number] 2.16.840.1.419771.3.579.2.1259 1962 Unknown [id number] 2.16.840.1.713570.3.579.2.1259 1962 Unknown [id number] 2.16.840.1.486358.3.579.2.1259 1962 Unknown [id number] 2.16.840.1.192626.3.579.2.1259 1962 Unknown [id number] 2.16.840.1.718149.3.579.2.1259 1962 Unknown [id number] 2.16.840.1.554466.3.579.2.1259 1962 Unknown [id number] 2.16.840.1.564894.3.579.2.1259 1959 Unknown [id number] 1959 Unknown [id number] Unknown Carlos POWELL/STEPHEN [id number] Unknown [id number] 2.16.840.1.918782.3.579.2.531 Unknown [id number] 2.16.840.1.985483.3.579.2.531 Social History Date Type Detail Facility Start: 2022 End: 11-12-2023 Tobacco smoking status NHIS Never smoked tobacco (finding) [facility] Start: 1960 Sex Assigned At Male [facility] Tobacco smoking stat NHIS Tobacco smoking consumption unknown [facility] Start: 12-16-2022 Gender identity Identifies as male gender (finding) [facility] Work Phone: Start: 12-16-2022 Sexual orientation Heterosexual (finding) [facility] Work Phone: Start: 12-06-2022 End: 10-31-2023 Exposure to SARS-CoV-2 (event) Not sure [facility] Start: 01-22-2023 End: 11-12-2023 Tobacco use and exposure Smokeless tobacco non-user [facility] Work Phone: Start: 01-22-2023 End: 03-05-2024 Alcohol intake Lifetime non-drinker (finding) [facility] Work Phone: Start: 01-22-2023 End: 03-05-2024 History of Social function [facility] Work Phone: Start: 01-22-2023 End: 03-05-2024 Tobacco use panel [facility] Tobacco smoking status Never [facility] Start: 1960 Sex assigned at Not on file [facility] Start: 10-31-2023 Alcoholic beverage intake Current drinker of alcohol (finding) [facility] Work Phone: Medical Equipment Procedure Code Equipment Code Equipment Original Text Equi pment Identifier Dates 1 each by In Vit ro route daily As needed. [id number] Functional Status Date Assessment Result Facility 10-01-2023 Functional Status N/A [facility] 08-04-2023 Functional Status N/A [facility] 07-14-2023 Functional Status N/A [facility] [place] Clinical Notes 01-22-2023 to 02-13-2024 Leon Castro, DO - 02/13/2024 3:30 PM Amena Navarrete MD - 02/12/2024 3:40 PM Jose Castro, DO - 01/30/2024 3:30 PM Amena Navarrete MD - 01/23/2024 5:57 PM ESTPatient Instructions Note Date & Type Note Facility 02-13-2024 History of Present illness Narrative Subjective Patient ID: Clarence Flores is a 63 y.o. male who presents for Nasal Congestion (2 week alhaji ) HPI This patient presents for recheck of chronic sinusitis, nasal congestion, and chronic anticoagulation. Patient does describe interval improvement of his condition. Presents today after a course of antibiotic and saline spray. Review of Systems Patient does describes intervals of improved sense of smell and less congestion. Continues to take Augmentin on a daily basis. Also continues to use saline nasal spray. The rest of his review of systems is unchanged. Allergies as of 02/13/2024 - Reviewed 02/13/2024 Allergen Reaction Noted Nitroglycerin 11/26/2018 Past Medical History: Diagnosis Date Asymptomatic [place] BMI 34.0-34.9,adult 10/31/2023 BMI 40.0-44.9, adult [place] 01/23/2023 Diabetes mellitus type II, non insulin dependent [place] 04/09/2021 Diabetes type 2, controlled [place] Elevated PSA 05/22/2023 Essential hypertension [place] 11/24/2021 Hyperplastic rectal polyp 01/29/2024 Hypertensive left ventricular hypertrophy, without heart failure [place] [place] 01/22/2023 Kidney disease Left renal mass 01/17/2023 Never smoked tobacco 10/31/2023 Obstructive sleep apnea 01/22/2023 Paroxysmal atrial fibrillation [place] [place] [place] 10/31/2023 Positive fecal occult blood test 01/29/2024 Sigmoid diverticulosis 01/29/2024 Current Outpatient Medications: amoxicillin-clavulanate (Augmentin) 875-125 MG tablet, Take 1 tablet (875 mg) by mouth in the morning and 1 tablet (875 mg) before bedtime. Do all this for 28 days., Disp: 56 tablet, Rfl: 0 azelastine (Astelin) 0.1 % nasal spray, Administer 2 sprays into each nostril in the morning and 2 sprays before bedtime. Use in each nostril as directed., Disp: 90 mL, Rfl: 3 dilTIAZem CD (Cardizem CD) 120 MG 24 hr capsule, Take 120 mg by mouth, Disp: , Rfl: doxazosin (Cardura) 4 MG tablet, Take 4 mg by mouth at bedtime, Disp: , Rfl: empagliflozin (Jardiance) 10 MG, Take 1 tablet by mouth Daily, Disp: , Rfl: Ipebcqpscpq-Bxbunbljg-Rgiykf (Trelegy Ellipta) 100-62.5-25 MCG/ACT aerosol powder , Inhale 1 puff Daily, Disp: 3 each, Rfl: 3 ipratropium (Atrovent) 0.06 % nasal spray, Administer 2 sprays into each nostril in the morning and 2 sprays in the evening and 2 sprays before bedtime., Disp: 15 mL, Rfl: 11 metFORMIN (Glucophage) 500 MG tablet, Take 500 mg by mouth in the morning and 500 mg in the evening. Take with meals., Disp: , Rfl: metoprolol succinate XL (Toprol-XL) 100 MG 24 hr tablet, Take 150 mg by mouth, Disp: , Rfl: montelukast (Singulair) 10 MG tablet, Take 10 mg by mouth Daily, Disp: , Rfl: Ozempic, 2 MG/DOSE, 8 MG/3ML solution pen-injector, Inject 2 mg under the skin every 7 (seven) days, Disp: , Rfl: spironolactone (Aldactone) 25 MG tablet, Take 25 mg by mouth in the morning., Disp: , Rfl: valsartan (Diovan) 160 MG tablet, Take 160 mg by mouth in the morning., Disp: , Rfl: amLODIPine (Norvasc) 10 MG tablet, Take 10 mg by mouth in the morning., Disp: , Rfl: apixaban (Eliquis) 5 MG tablet, Take 5 mg by mouth in the morning and 5 mg in the evening., Disp: , Rfl: Past Surgical History: Procedure Laterality Date PARTIAL NEPHRECTOMY Social History Socioeconomic History Marital status: Unknown Spouse name: Not on file Number of children: Not on file Years of education: Not on file Highest education level: Not on file Occupational History Not on file Tobacco Use Smoking status: Never Smokeless tobacco: Never Substance and Sexual Activity Alcohol use: Never Drug use: Never Sexual activity: Not on file Other Topics Concern Not on file Social History Narrative Not on file Social Drivers of Health Financial Resource Strain: Not on file Food Insecurity: Not on file Transportation Needs: Not on file Physical Activity: Not on file Stress: Not on file Social Connections: Not on file Intimate Partner Violence: Not on file Housing Stability: Not on file Objective ENT Physical Exam General Examination: General overview: Normal, age-appropriate, no evidence of distress, congestion is improved Head: Normocephalic, atraumatic Eyes: Pupils are equally round and reactive to light and accommodation, extraocular muscles are intact Ears: External ear architecture within normal limits, ear canals are patent, tympanic membranes are intact. Nose: External nose unremarkable, nares patent, septum intact, improvement of congestion. Oral cavity: Mucosa moist, no evidence of ulcer, mass, or lesion Throat: Clear, mild postnasal drip Neck/thyroid: Neck supple, full range of motion, no cervical lymphadenopathy, no evidence of thyromegaly Lymph nodes: No cervical lymphadenopathy Skin: Warm and dry, no evidence of suspicious lesions, no rash Heart: No jugular venous distention, point of maximal impulse normal Lungs: Good air movement, no audible wheezing, no shortness of breath Chest: Normal shape and expansion Abdomen: Normal, soft, nontender, nondistended Musculoskeletal: Cervical spine normal, full range of motion Extremities: No clubbing, cyanosis, or edema Peripheral pulses: 2+ radial, 2+ carotid Neurologic: Alert and oriented, cranial nerves 2-12 are grossly intact Psych: Alert and oriented, normal affect, no evidence of distress Assessment/Plan Diagnoses and all orders for this visit: Sinusitis, unspecified chronicity, unspecified location Comments: Will continue antibiotics for at least 2 more weeks. Will see him back after this is completed. Nasal congestion Comments: Patient encouraged to continue using saline nasal spray on a frequent basis. Chronic anticoagulation Comments: Continue Eliquis, follow up with family physician and subspecialist documented in this encounter [facility] 02-12-2024 History of Present illness Narrative Clarence Flores returns to the office today For follow-up assessment for his asthma and sinusitis. He was started on Augmentin several weeks ago after his CT scan was positive for sinusitis. He has been on antibiotics for 3 weeks and is about 80% better at the current time. He feels that his asthma has been doing well and he has no SOB. He has not been wheezing or having SOB. This has been his only sinus infection in the past 5 years. EXAM The patient appears comfortable in the office today. Lungs are clear to auscultation bilaterally. The oral mucosa is pink and healthy without any lesions or ulcers. The palate elevates in the midline. The nasal mucosa is pink and healthy. There is no epistaxis mucopus or nasal polyposis noted. The nasal septum is approximately in the midline. The skin is clear of any lesions, excoriations, or erythema. IMPRESSION: sinus infection - continue augmentin and follow-up with ENT. We agreed to can discontinue his inhaled steroid as he is not having any respiratory symptoms at the current time. Follow-up is arranged on an as needed basis. documented in this encounter [facility] 01-30-2024 History of Present illness Narrative Subjective Patient ID: Clarence Flores is a 63 y.o. male who presents for Nasal Congestion (New Patient : nasal congestion / referred for sinusitis / CT done) HPI 63-year-old white male presents today for evaluation of chronic rhinitis and chronic sinusitis. Patient describes difficulties going on since the middle of the year. Has been treated with allergy medications as well as antibiotics were very limited improvement. Has been evaluated for allergies without significant finding. Recently underwent a CT scan of his sinuses and presents here for further evaluation and therapy. Review of Systems Patient describes significant difficulties with bilateral nasal congestion, greater on the right with postnasal drainage and frequent coughing. Currently using ipratropium bromide nasal spray and Astelin nasal spray. Denies any fever. Does describe facial pressure and severe congestion. Continues to have difficulties with snoring. No recent dental work. The rest of his review of systems is negative Allergies as of 01/30/2024 - Reviewed 01/30/2024 Allergen Reaction Noted Nitroglycerin 11/26/2018 Past Medical History: Diagnosis Date Asymptomatic hypertension ([facility] Atrial fibrillation ([facility]) BMI 34.0-34.9,adult 10/31/2023 BMI 40.0-44.9, adult ([facility]) 01/23/2023 Diabetes mellitus type II, non insulin dependent ([facility]) 04/09/2021 Diabetes type 2, controlled ([facility]) Elevated PSA 05/22/2023 Essential hypertension (CMS/HCC) 11/24/2021 Hyperplastic rectal polyp 01/29/2024 Hypertensive left ventricular hypertrophy, without heart failure (CMS/HCC) 01/22/2023 Kidney disease Left renal mass 01/17/2023 Never smoked tobacco 10/31/2023 Obstructive sleep apnea 01/22/2023 Paroxysmal atrial fibrillation (CMS/HCC) 10/31/2023 Positive fecal occult blood test 01/29/2024 Sigmoid diverticulosis 01/29/2024 Current Outpatient Medications: amoxicillin-clavulanate (Augmentin) 875-125 MG tablet, Take 1 tablet (875 mg) by mouth in the morning and 1 tablet (875 mg) before bedtime. Do all this for 28 days., Disp: 56 tablet, Rfl: 0 azelastine (Astelin) 0.1 % nasal spray, Administer 2 sprays into each nostril in the morning and 2 sprays before bedtime. Use in each nostril as directed., Disp: 90 mL, Rfl: 3 dilTIAZem CD (Cardizem CD) 120 MG 24 hr capsule, Take 120 mg by mouth, Disp: , Rfl: doxazosin (Cardura) 4 MG tablet, Take 4 mg by mouth at bedtime, Disp: , Rfl: empagliflozin (Jardiance) 10 MG, Take 1 tablet by mouth Daily, Disp: , Rfl: Sylvgagncsx-Walkjgbfi-Hulurc (Trelegy Ellipta) 100-62.5-25 MCG/ACT aerosol powder , Inhale 1 puff Daily, Disp: 3 each, Rfl: 3 ipratropium (Atrovent) 0.06 % nasal spray, Administer 2 sprays into each nostril in the morning and 2 sprays in the evening and 2 sprays before bedtime., Disp: 15 mL, Rfl: 11 metFORMIN (Glucophage) 500 MG tablet, Take 500 mg by mouth in the morning and 500 mg in the evening. Take with meals., Disp: , Rfl: metoprolol succinate XL (Toprol-XL) 100 MG 24 hr tablet, Take 150 mg by mouth, Disp: , Rfl: montelukast (Singulair) 10 MG tablet, Take 10 mg by mouth Daily, Disp: , Rfl: Ozempic, 2 MG/DOSE, 8 MG/3ML solution pen-injector, Inject 2 mg under the skin every 7 (seven) days, Disp: , Rfl: spironolactone (Aldactone) 25 MG tablet, Take 25 mg by mouth in the morning., Disp: , Rfl: valsartan (Diovan) 160 MG tablet, Take 160 mg by mouth in the morning., Disp: , Rfl: amLODIPine (Norvasc) 10 MG tablet, Take 10 mg by mouth in the morning., Disp: , Rfl: apixaban (Eliquis) 5 MG tablet, Take 5 mg by mouth in the morning and 5 mg in the evening., Disp: , Rfl: Past Surgical History: Procedure Laterality Date PARTIAL NEPHRECTOMY Social History Socioeconomic History Marital status: Unknown Spouse name: Not on file Number of children: Not on file Years of education: Not on file Highest education level: Not on file Occupational History Not on file Tobacco Use Smoking status: Never Smokeless tobacco: Never Substance and Sexual Activity Alcohol use: Never Drug use: Never Sexual activity: Not on file Other Topics Concern Not on file Social History Narrative Not on file Social Drivers of Health Financial Resource Strain: Not on file Food Insecurity: Not on file Transportation Needs: Not on file Physical Activity: Not on file Stress: Not on file Social Connections: Not on file Intimate Partner Violence: Not on file Housing Stability: Not on file Objective ENT Physical Exam General Examination: General overview: Normal, age-appropriate, no evidence of distress, sounds very congested. Head: Normocephalic, atraumatic Eyes: Pupils are equally round and reactive to light and accommodation, extraocular muscles are intact Ears: External ear architecture within normal limits, ear canals are patent, tympanic membranes are intact. Nose: External nose unremarkable, nares patent, septum intact, deviation of the nasal septum to the right. Congestion noted bilaterally. Review of his CT scan does reveal evidence of bilateral pansinusitis with deviation of the nasal septum anterior on the right and posterior on the left Nasal endoscopy: Consent: Proper consent is obtained Anesthesia: Nasal airway is anesthetized using aerosolized lidocaine and epinephrine Procedure: After decongestion, a diagnostic nasal endoscopy was performed bilaterally. The endoscope was placed into the nose and a thorough inspection of the internal nose including the septum, skull base, lateral nasal wall structures is performed. There is bilateral nasal congestion with septal deviation. Copious mucopurulent drainage is coming from the middle meatus bilaterally. No obvious evidence of polypoid change. Scope is then removed without difficulty. Disposition: This patient tolerated this procedure extremely well. Fully instructed on postprocedure care and follow-up. Oral cavity: Mucosa moist, no evidence of ulcer, mass, or lesion Throat: Clear Neck/thyroid: Neck supple, full range of motion, no cervical lymphadenopathy, no evidence of thyromegaly Lymph nodes: No cervical lymphadenopathy Skin: Warm and dry, no evidence of suspicious lesions, no rash Heart: No jugular venous distention, point of maximal impulse normal Lungs: Good air movement, no audible wheezing, no shortness of breath Chest: Normal shape and expansion Abdomen: Normal, soft, nontender, nondistended Musculoskeletal: Cervical spine normal, full range of motion Extremities: No clubbing, cyanosis, or edema Peripheral pulses: 2+ radial, 2+ carotid Neurologic: Alert and oriented, cranial nerves 2-12 are grossly intact Psych: Alert and oriented, normal affect, no evidence of distress Assessment/Plan Diagnoses and all orders for this visit: Chronic anticoagulation Comments: Patient will continue taking Eliquis. Will follow up with his family physician and subspecialists Sinusitis, unspecified chronicity, unspecified location Comments: We will start this patient on Augmentin for the next 4 weeks. We will see him back in 2 weeks for recheck. Orders: - Ambulatory referral to ENT Nasal congestion Comments: Patient will use saline nasal spray on a frequent basis to help rinse the thick secretions from his nose. We will see him back in 2 weeks for recheck. Orders: - Ambulatory referral to ENT documented in this encounter [facility] 01-23-2024 History of Present illness Narrative I called the patient and discuss the results and sent in Augmentin for him. documented in this encounter [facility] 01-12-2024 History of Present illness Narrative Clarence Flores returns to the office today for a follow-up assessment for his nasal obstruction and cough. He had negative skin testing at his last assessment for environmental allergens. Exhaled nitric oxide was slightly elevated at 31 parts per billion. He feels that the cough is better with the Breztri which is helpful for the cough. He is still having nasal symptoms of nasal airway obstruction and rhinorrhea. His sense of smell is still poor. EXAM The patient appears comfortable in the office today. Lungs are clear to auscultation bilaterally. The oral mucosa is pink and healthy without any lesions or ulcers. The palate elevates in the midline. The nasal mucosa is pink and healthy. There is no epistaxis mucopus or nasal polyposis noted. The nasal septum is approximately in the midline. The skin is clear of any lesions, excoriations, or erythema. IMPRESSION: cough variant asthma - change to Trelegy Maxillary sinusitis - continue azelastine nasal spray and obtain CT of sinus. Follow-up 4 weeks. Add nasal ipratropium for post nasal drip. documented in this encounter [facility] 12-17-2023 History of Present illness Narrative Clarence Flores is a very pleasant 63 y.o. year old male who comes to the office today with the chief complaint of nasal airway obstruction and cough for 5 months. He has facial pressure SOB and cough as well. He does not smoke and has no pets. Has some worsening of symptoms in spring and fall. 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 He has tried Cetirizine and Flonase but these did not help him. He was given antibiotics in June and this helped for about one week. His cough is productive. He was working in the yard cutting down trees when his symptoms got worse. He has no history of childhood asthma. He uses CPAP at night. His chief complaint is nasal airway obstruction. He has occasional wheeze with his SOB. He tried an inhaler which did not help. The patient appears comfortable in the office today. Lungs are clear to auscultation bilaterally. The oral mucosa is pink and healthy without any lesions or ulcers. The palate elevates in the midline. The nasal mucosa is pale and congested with a moderate amount of turbinate engorgement and clear rhinorrhea. No polyps or epistaxis is noted. The skin is clear of any rashes, lesions, or ulceration/excoriation. IMPRESSION: Skin testing in the office today was performed under direct physician supervision for common environmental allergens including cat, dog, mouse, dust mite, mold spores, tree, grass, weed, and ragweed and all of these tests were negative in the setting of a positive histamine control. I provided reassurance for the patient that no allergen avoidance measures are necessary for environmental allergens. Spirometry performed in the office today under direct physician supervision shows an FEV1 of 99 percent of ideal with no scooping of the flow volume loop and a normal FEV1 to FEC ratio. Exhaled nitric oxide is slightly elevated at 31 parts per billion. 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 If the combination of azelastine nasal spray and nasal capsaicin is not beneficial for his symptoms within 2-3 weeks then we agreed he would obtain an imaging study of the sinuses. Dyspnea - I provided reassurance regarding his relatively normal breathing studies. I let him know his inflammatory markers slightly elevated. We agreed he would try Breztri 2 puffs on a b.I.d. basis. As this is a new device for him we reviewed proper technique for this in the office today. Follow-up is arranged in 4 weeks or sooner should problems arise. documented in this encounter [facility] 10-31-2023 History of Present illness Narrative Subjective Clarence Flores is a 62 y.o. male Chief Complaint Follow-up 62-year-old gentleman here for follow-up for the first time to see me since he was last admitted to [facility] 1 year ago for accelerated hypertension. He has followed up with nurse practitioner 3 times in the interim, imaging including echocardiography and stress perfusion imaging have been performed and reviewed all are completely normal with no evidence for ischemia, infarction or valvular abnormalities and normal left ventricular function In the interim, while undergoing colonoscopy recently, he was diagnosed with paroxysmal atrial fibrillation and placed on Eliquis by his primary care physician appropriately. He states that he has had tachyarrhythmic palpitations for over the past 5 to 7 years but has never been treated or documented to have atrial fibs; symptomatically, this appears to be a new diagnosis of PAF. His family physician mentioned consideration for Watchman device (atrial appendage occlusion) and at this juncture he remains in normal sinus rhythm, has had no bleeding diathesis or complications, heart failure. He does not necessarily warrant Watchman device at this juncture. Further past medical history simply noted for 90 pound weight loss over the past year with dietary discretion, exercise; diabetes, hypertension, history of partial nephrectomy for renal cancer remotely. He denies any shortness of breath, angina, repeat hospitalizations. Recommendations: 14-day event monitor, discontinue diltiazem and take as needed for any prolonged palpitations/tachyarrhythmias, long discussion regards to A-fib management; if complicated, or if needs aggressive antiarrhythmic therapy will refer to EP. Will otherwise follow-up in 6 months to reassess hemodynamics, rhythm and blood pressure Review of Systems All other systems reviewed and are negative. Vitals: 10/31/23 0906 BP: 116/76 BP Location: Left arm Patient Position: Sitting Pulse: 64 Weight: 97.5 kg (215 lb) Height: 1.676 m (5' 6 ) Objective Physical Exam Constitutional: Appearance: Normal appearance. HENT: Nose: Nose normal. Neck: Vascular: No carotid bruit. Cardiovascular: Rate and Rhythm: Normal rate. Pulses: Normal pulses. Heart sounds: Normal heart sounds. Pulmonary: Effort: Pulmonary effort is normal. Abdominal: General: Bowel sounds are normal. Palpations: Abdomen is soft. Musculoskeletal: General: Normal range of motion. Cervical back: Normal range of motion. Right lower leg: No edema. Left lower leg: No edema. Skin: General: Skin is warm and dry. Neurological: General: No focal deficit present. Mental Status: He is alert. Psychiatric: Mood and Affect: Mood normal. Behavior: Behavior normal. Thought Content: Thought content normal. Judgment: Judgment normal. Allergies Patient has no known allergies. Current Medications Current Outpatient Medications: amLODIPine (Norvasc) 10 mg tablet, Take 1 tablet (10 mg) by mouth once daily., Disp: 90 tablet, Rfl: 3 apixaban (Eliquis) 5 mg tablet, Take 1 tablet (5 mg) by mouth 2 times a day., Disp: , Rfl: dilTIAZem CD (Cardizem CD) 120 mg 24 hr capsule, Take 1 capsule (120 mg) by mouth once daily., Disp: , Rfl: doxazosin (Cardura) 4 mg tablet, Take 1 tablet (4 mg) by mouth 2 times a day. Take half a tablet by mouth every morning and one tablet by mouth every evening, Disp: , Rfl: Jardiance 10 mg, Take 1 tablet (10 mg) by mouth once daily., Disp: , Rfl: metFORMIN XR 500 mg 24 hr tablet, Take 1 tablet (500 mg) by mouth once every 24 hours., Disp: , Rfl: metoprolol succinate XL (Toprol-XL) 25 mg 24 hr tablet, Take 1.5 tablets daily (37.5mg) daily, Disp: 135 tablet, Rfl: 0 Ozempic 0.25 mg or 0.5 mg (2 mg/3 mL) pen injector, , Disp: , Rfl: spironolactone (Aldactone) 25 mg tablet, Take 1 tablet (25 mg) by mouth once daily., Disp: 30 tablet, Rfl: 11 valsartan (Diovan) 160 mg tablet, Take 1 tablet (160 mg) by mouth once daily., Disp: , Rfl: Assessment/Plan 1. Paroxysmal atrial fibrillation (Multi) 2. Essential hypertension 3. Diabetes mellitus type II, non insulin dependent (Multi) 4. Obstructive sleep apnea 5. BMI 34.0-34.9,adult 6. Never smoked tobacco 7. Hypertensive left ventricular hypertrophy, without heart failure Scribe Attestation By signing my name below, I, Sita Vargas RN , Scribe attest that this documentation has been prepared under the direction and in the presence of Mike Morelos DO. Provider Attestation - Scribe documentation All medical record entries made by the Scribe were at my direction and personally dictated by me. I have reviewed the chart and agree that the record accurately reflects my personal performance of the history, physical exam, discussion and plan. documented in this encounter [facility] Work Phone: 10-31-2023 Instructions Sita Uribe RN - 10/31/2023 9:00 AM EDT Please bring all medicines, vitamins, and herbal supplements with you when you come to the office. Prescriptions will not be filled unless you are compliant with your follow up appointments or have a follow up appointment scheduled as per instruction of your physician. Refills should be requested at the time of your visit. BMI was above normal measurement. Current weight: 97.5 kg (215 lb) Weight change since last visit (-) denotes wt loss -38 lbs Weight loss needed to achieve BMI 25: 60.4 Lbs Weight loss needed to achieve BMI 30: 29.5 Lbs Provided instructions on dietary changes Provided instructions on exercise. Stay on eliquis Get 14 day compliance monitor Only use cardizem as needed is a fib lasts longer than 1-5 mins documented in this encounter [facility] Work Phone: 08-04-2023 Note Patient: CLARENCE FLORES Age: 62 years Sex: Male : 1960 Associated Diagnoses: None Author: aTriq GORDON MD Subjective no changes to [facility] Comment on above: Result Comment: Elec tronically Signed By: aTriq GORDON MD\.br\Date and Time Signed: 08/04/23 07:34 [...] disease: Father and Sister. Ovarian cancer: Mother. [facility] Comment on above: Result Comment: Elec tronically Signed By: EVAN SARAH, Tariq Strattonbr\Date and Time Signed: 07/14/23 14:28 EDT 04-23-2023 [...] restriction. Annual follow-up Andra Ramirez MSN, JOSÉ MIGUEL-TAX MANAGER, PMHNP-BC [facility] Please excuse any errors in grammar or translation related to this dictation. Voice recognition software was utilized to prepare this document.. documented in this encounter [facility] Work Phone: 04-23-2023 Instructions SUGEY Tabares - [...] Morelos 9 months documented in this encounter [facility] Work Phone: 01-23-2023 Evaluation + Plan note Associated Problem(s): BMI 40.0-44.9, adult (CMS/HCC) Recently started treatment with Ozempic Weight is down 10 pounds Reviewed the merits of healthy lifestyle choices on overall cardiovascular health. [facility] Work Phone: 01-23-2023 Miscellaneous Notes Associated Problem(s): BMI 40.0-44.9, adult (CMS/HCC) Recently started treatment with Ozempic Weight is down 10 pounds Reviewed the merits of healthy lifestyle choices on overall cardiovascular health. Associated Problem(s): Obstructive sleep apnea Remains compliant with CPAP Associated Problem(s): Diabetes mellitus type II, non insulin dependent ([facility]) On ARB No statin Unknown hemoglobin [...] METS. EF 59%. documented in this encounter [facility] Work Phone: 01-23-2023 Evaluation + Plan note Associated Problem(s): Obstructive sleep apnea Remains compliant with CPAP [facility] Work Phone: 01-23-2023 Evaluation + Plan note Associated Problem(s): Diabetes mellitus type II, non insulin dependent ([facility]) On ARB No statin Unknown hemoglobin A1c [facility] Work Phone: 01-23-2023 Evaluation + Plan note Associated Problem(s): Hypertensive left ventricular hypertrophy, without heart failure November 2022 TTE LVEF greater than 70% LVH moderate MR trace [facility] Work Phone: 01-23-2023 Evaluation + Plan note Associated Problem(s): Essential hypertension He has been compliant with addition of doxazosin and valsartan since discharge. Reports PCP stopped hydrochlorothiazide. Remains elevated in office today [facility] Work Phone: 01-23-2023 Evaluation + Plan note Associated Problem(s): Cardiac and Vasculature November 2022 hospitalization for chest pressure, ruled out ACS. Inpatient echo EF greater than 70%, no wall motion abnormality. Subsequent December 2022 perfusion study no ischemia, no infarct. Completed 4 METS. EF 59%. [facility] Work Phone: 01-22-2023 History of Present illness Narrative Chief Complaint Doing fine Reason for Visit Patient presents to the office today for outpatient follow-up for hospital follow up. Patient was recently hospitalized at [facility]. The patient was seen in Cardiology consult with subsequent cardiovascular management by [facility]. Hospitalization records have been reviewed. Reason for Cardiology Consultation: Chest pressure, accelerated hypertension Consulting Bus Driver/Monitor: Dr. Morelos Cardiovascular testing: Echocardiogram, outpatient perfusion study Changes to cardiovascular medical regimen at time of discharge: Added Cardura 8 mg, valsartan 320 mg, hydrochlorothiazide Discharge disposition: Home This is initial in clinic evaluation at [facility] Presents today ambulatory with steady gait. Accompanied [...] Remains compliant with CPAP BMI 40.0-44.9, adult ([facility]) Recently started treatment with Ozempic Weight [...] contact the office if new symptoms arise. STAVE BLOCK ROLLER after 2 months Andra Ramirez MSN, HOME SCHOOL LIAISON OFFICER-TAX MANAGER, PMHNP-BC [facility] Please excuse any errors in grammar or translation related to this dictation. Voice recognition software was utilized to prepare this document. documented in this encounter [facility] Work Phone: 01-22-2023 Instructions SUGEY Tabares - [...] contact the office if new symptoms arise. STAVE BLOCK ROLLER after 2 months documented in this encounter [facility] Work Phone: Evaluation + Plan note Future Appointments Appointment Date:08/04/2023 08:30:00 AM Scheduled Provider: Location:[facility] Appointment Type:Surgery FT [facility] General Surgery [place] Evaluation note Diagnosis Onset Date Chest pain acute Hypertensive urgency acute [facility] Work Phone: Evaluation note* Diagnosis Essential hypertension- Primary Unspecified essential hypertension Chest pain, unspecified type Obstructive sleep apnea Obstructive sleep apnea (adult) (pediatric) Diabetes mellitus type II, non insulin dependent ([facility]/HCC) Type II or unspecified type diabetes mellitus without mention of complication, not stated as uncontrolled Hypertensive left ventricular hypertrophy, without heart failure BMI 40.0-44.9, adult ([facility]/HCC) documented in this encounter [facility] Work Phone: Evaluation note* Diagnosis BMI 40.0-44.9, adult ([facility]/HCC)- Primary Essential hypertension Unspecified essential hypertension documented in this encounter [facility] Work Phone: Evaluation noteNo assessment information available [facility] Work Phone: Evaluation note* Diagnosis TONY (obstructive sleep apnea)- Primary Obstructive sleep apnea (adult) (pediatric) Snoring Other dyspnea and respiratory abnormality Daytime hypersomnolence [facility] Diagnosis Dyspnea on exertion- Primary Other dyspnea and respiratory abnormality Chronic rhinitis [facility] Diagnosis Cough variant asthma ([facility])- Primary Cough variant asthma Acute maxillary sinusitis, recurrence not specified [facility] Diagnosis Essential hypertension- Primary Unspecified essential hypertension Chest pain, unspecified type Obstructive sleep apnea Obstructive sleep apnea (adult) (pediatric) Diabetes mellitus type II, non insulin dependent (Multi) Type II or unspecified type diabetes mellitus without mention of complication, not stated as uncontrolled Hypertensive left ventricular hypertrophy, without heart failure BMI 40.0-44.9, adult (Multi) BMI 40.0-44.9, adult (Multi)- Primary Essential hypertension Unspecified essential hypertension Paroxysmal atrial fibrillation (Multi) Atrial fibrillation Essential hypertension Unspecified essential hypertension Diabetes mellitus type II, non insulin dependent (Multi) Type II or unspecified type diabetes mellitus without mention of complication, not stated as uncontrolled Obstructive sleep apnea Obstructive sleep apnea (adult) (pediatric) BMI 34.0-34.9,adult Never smoked tobacco Hypertensive left ventricular hypertrophy, without heart failure documented in this encounter [facility] Work Phone: Evaluation note* Diagnosis Acute maxillary sinusitis, recurrence not specified- Primary documented in this encounter [facility]* Diagnosis Chronic anticoagulation- Primary Encounter for long-term (current) use of 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 Sinusitis, unspecified chronicity, unspecified location Nasal congestion Other diseases of nasal cavity and sinuses documented in this encounter [facility]* Diagnosis Acute maxillary sinusitis, recurrence not specified- Primary documented in this encounter [facility]* Diagnosis Sinusitis, unspecified chronicity, unspecified location- Primary Nasal congestion Other diseases of nasal cavity and sinuses Chronic anticoagulation Encounter for long-term (current) use of 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 documented in this encounter [facility]* Diagnosis Renal cancer, left (HCC) documented in this encounter [facility] course Narrative No data available for this section [facility] General [facility] [place] [facility] Discharge instructions No data available for this section [facility] Surgery [place] Progress note No data available for this section [facility] [place] Reason for referral (narrative)* Consultation (Routine) - Authorized Specialty Diagnoses / Procedures Referred By Callum long Referred To Contact Cardiology Diagnoses Essential hypertension Procedures Follow Up In Cardiology Andra Ramirez APRN-CNP [address] [place] [address] Referral ID Status Reason Start Date Expiration Date V isits Requested Visits Authorized [id number] Authorized 01/22/2023 01/22/2024 1 1 [facility] Work Phone: Reason for referral (narrative)* Consultation (Routine) - Authorized Specialty Diagnoses / Procedures Referred By Callum long Referred To Contact Cardiology Diagnoses Essential hypertension Procedures Follow Up In Cardiology Andra Ramirez APRN-CNP [address] [facility] 2, [address] [place] [address] Mike Morelos DO [address] [facility] 2, [facility] [address] [place] [address] Referral ID Status Reason Start Date Expiration Date V isits Requested Visits Authorized [id number] Authorized 04/23/2023 04/22/2024 1 1 [facility] Work Phone: Summary Purpose Family History No [...] 2022 1:53am Hospital Course Note HNO ID: [id number] Author: Delonte pham (Jose) Hrnchar Service: Urology [...] Reason for Visit Chest pain Hypertensive urgency Chief Complaint Unknown Reason for Referral Specialty Diagnoses / Procedures Referred By Contac t Referred To Contact Cardiology Diagnoses Paroxysmal atrial fibrillation (Multi) Procedures Holter Or Event Blood Splatter Analyst Mike Morelos, DO [address] [place] [address] 2, [address] [place], [place] [id number] Referral ID Status Reason Start Date Expiration Date V isits Requested Visits Authorized [id number] Pending Review 10/31/2023 10/30/2024 1 1 Specialty Diagnoses / Procedures Referred By Contac t Referred To Contact Cardiology Diagnoses Essential hypertension Procedures Follow Up In Cardiology Mike Morelos, [address] [facility] 2, [facility] [address] [place] [address] Mike Morelos, DO [address] [facility] 2, [place] [id number] Referral ID Status Reason Start Date Expiration Date V isits Requested Visits Authorized [id number] Authorized 10/31/2023 10/30/2024 1 1 Additional Source Comments (unrecognized sect ion and content) No Status Records FoundNo Status Records FoundNo Status Records FoundNo Status Records FoundNo Status Records FoundNo Status Records Found INFORMATION SOURCE (unrecogn ized section and content) DATE CREATED AUTHOR 06/26/2019 [facility] DATE CREATED AUTHOR AUTHOR'S ORGANIZ ATION 12/03/2021 [facility] DATE CREATED AUTHOR AUTHOR'S ORGANIZ ATION 09/01/2023 [facility] DATE CREATED AUTHOR AUTHOR'S ORGANIZ ATION 09/24/2023 [facility] DATE CREATED AUTHOR AUTHOR'S ORGANIZ ATION 10/03/2023 [facility] DATE CREATED AUTHOR AUTHOR'S ORGANIZ ATION 03/23/2024 [facility] d[facility] Care Teams (unrecognized sec tion and content) Team Status: Active Member Role Status Dates Shea Beach MD Primary Care Provider Active Team Status: Active Member Role Status Dates Shea Beach MD Primary Care Provider Active Damien Hercules DO Emergency Provider Active Derick Gomes MD Admit Provider, Attending Provi jefferson Active Transformer Assembler Relationship Specialty Start Date End Date Shea Beach MD [address] [place] [address] PCP - General Family Medicine 11/13/22 Transformer Assembler Relationship Specialty Start Date End Date Shea Beach MD [address] [place] [address] PCP - General Family Medicine 11/13/22 Transformer Assembler Relationship Specialty Start Date End Date Shea Beach MD [address] [place] [address] PCP - General Family Medicine 11/13/22 Transformer Assembler Relationship Specialty Start Date End Date Shea Beach MD [address] [place] [address] PCP - General Family Medicine 11/13/22 Team Status: Inactive Member Role Status Dates Tariq Gordon MD FACS Attending Provider Active Start: September 17, 2023 End: September 17, 2023 Transformer Assembler Relationship Specialty Start Date End Date Shea Beach MD [address] [place] [address] PCP - General Family Medicine 11/13/22 Transformer Assembler Relationship Specialty Start Date End Date Shea Beach MD [address] [place] [address] PCP - General Family Medicine 01/30/24 Transformer Assembler Relationship Specialty Start Date End Date Shea Beach MD [address] [place] [address] PCP - General Family Medicine 01/30/24 Transformer Assembler Relationship Specialty Start Date End Date Shea Beach MD [address] [facility] [place] [address] PCP - General Family Medicine 01/30/24 Transformer Assembler Relationship Specialty Start Date End Date Shea Beach MD [address] [place] [address] PCP - General Family Medicine 01/30/24 Rachel Mckeon NP [address] Nurse Practitioner Neurology 02/13/24 Leon Castro DO [address] [place] [address] Otolaryngology 02/13/24 Transformer Assembler Relationship Specialty Start Date End Date Shea Beach MD [address] [place] [address] PCP - General Family Medicine 05/23/23 Transformer Assembler Relationship Specialty Start Date End Date Shea Beach MD [address] [place] [address] PCP - General Family Medicine 01/30/24 Rachel Mckeon NP [address] [place], [place] Nurse Practitioner Neurology 02/13/24 Leon Castro DO [address] [facility] [place] [address] Otolaryngology 02/13/24 Goals (unrecognized section and content) Goals may be documented in a n alternate section No data available for this section No data available for this sectionGoals may be documented in an alternate section No data available for this section Reason for Visit (unrecogniz ed section and content) Specialty Diagnoses / Procedures Referred By Contac t Referred To Contact Radiology Diagnoses Chest pain, unspecified type Procedures Nuclear Stress Test CHG MYOCARDIAL SPECT MULTIPLE STUDIES CHG MYOCARDIAL SPECT SINGLE STUDY AT REST OR STRESS ND CV STRS TST XERS&/OR RX CONT ECG W/O I&R ND CV STRS TST XERS&/OR RX CONT ECG I&R ONLY ND CV STRS TST XERS&/OR RX CONT ECG TRCG ONLY ND CV STRS TST XERS&/OR RX CONT ECG W/SI&R Mike Morelos [address], [address] [address] Referral ID Status Reason Start Date Expiration Date V isits Requested Visits Authorized [id number] Authorized 11/13/2022 05/12/2023 5 5 Reason Comments Shortness of Breath Chest pressure Specialty Diagnoses / Procedures Referred By Contac t Referred To Contact Cardiology Diagnoses Chest pain, unspecified type Procedures Follow Up In Cardiology Mike Morelos DO [address] [place] [address] [address], [address] [address] Mike Morelos, DO [address] [place] [address] [address], [address] [address] Referral ID Status Reason Start Date Expiration Date V isits Requested Visits Authorized [id number] Authorized 01/06/2023 01/06/2024 1 1 Reason Comments Follow-up 1 month Specialty Diagnoses / Procedures Referred By Contac t Referred To Contact Cardiology Diagnoses Essential hypertension Procedures Follow Up In Cardiology Andra Ramirez, HOME SCHOOL LIAISON OFFICER-TAX MANAGER [facility] [facility], [address] [place] [address] Referral ID Status Reason Start Date Expiration Date V isits Requested Visits Authorized [id number] Authorized 03/25/2023 03/24/2024 1 1 Reason Comments Sleep Apnea Reason Comments new patient C/O sinus pain and p ressure since June has been on antibiotics helped for the time and then came back. Reason Comments new patient No surgeries; no hos pital stays. Still having problems with taste and smell Reason Comments Follow-up Per Dr. Halie Villarreal V (a-fib) Reason Comments Nasal Congestion New Patient : nasal congestion / referred for sinusitis / CT done Specialty Diagnoses / Procedures Referred By Contac t Referred To Contact Otolaryngology Diagnoses Sinusitis, unspecified chronicity, unspecified location Nasal congestion Procedures ND OFFICE/OUTPATIENT NEW HIGH MDM 60 MINUTES Rachel Mckeon, STAVE BLOCK ROLLER [address] [place] [address] Phone: tel: fax: Leon Castro, [address] [facility] [place] [address] Phone: tel: fax: Referral ID Status Reason Start Date Expiration Date V isits Requested Visits Authorized [id number] Closed Specialty Services Required 11/20/2023 05/18/2024 1 1 Reason Comments Nasal Congestion 2 week alhaji Specialty Diagnoses / Procedures Referred By Contac t Referred To Contact Radiology Diagnoses Renal cancer, left (HCC) Procedures CT ABDOMEN PELVIS W IV CONTRAST Additional Contrast? None CT ABDOMEN PELVIS W WO CONTRAST Additional Contrast? None Damion Hay MD [address] [facility], [address] [place] [address] Referral ID Status Reason Start Date Expiration Date Visits Re quested Visits Authorized [id number] Closed 08/13/2023 09/27/2023 1 1 FOR RECORDS PERTAINING TO PATIENTS [...] BE BASED ON THE PRIMARY CLINICAL RECORDS. [facility], [facility]. provides no warranty or guarantee of the accuracy or completeness of information in this document.
[2024-03-27 09:30] LABS: Prostate Specific Antigen Dx 6.19 ng/mL (<=4.00)
== END 2024-03-27 08:10 | disposition home or self-care (01) ==
PROVIDERS: PCP Family Medicine
DX: R97.20 Elevated prostate specific antigen [PSA] (principal)
CPT/HCPCS: 36415; 84153

== ENCOUNTER 2024-03-27 08:14 | Outpatient (OUT) | payer OTHER, SELFPAY ==
--- OUTSIDE RECORDS SUMMARY | 2024-03-27 08:19 | XMS_ITS | CCD ---
Author Organization [facility] CliniSytx Care Team Providers Care Engine Research Engineer Name Role Phone YONG, DR VALDIVIA Consulting [...] Admit Provider MD Derick Gomes Attending Provider Shea Beach MD Primary Care Provider Shea Beach Primary Care Physician SHEA BEACH [...] Provider UnavailShea Doss MD Primary Care Provider [phone] Linda BARRIOS, Rachel Unavailable [phone] Leon Castro DO Unavailable [phone] Shea Beach MD Primary Care Provider [phone] LEON CASTRO Attending Unavailable RACHEL MCKEON Referring Unavailable LEON CASTRO Referring Unavailable RACHEL CMKEON Attending Unavailable JANY NAVARRETE Attending Unavailable JANY NAVARRETE Attending Unavailable JANY NAVARRETE Referring Unavailable LEON CASTRO Attending Unavailable RACHEL MCKEON Referring Unavailable JANY NAVARRETE Attending Unavailable LEON CASTRO Attending Unavailable RACHEL MCKEON Referring Unavailable Allergies Allergy Classification Reported Allergen(s) Allergy Type Date of Onset Reaction(s) Facility (2 sources) Aminolevulinic Acid; Translations: [nitroglycerin] Drug Allergy 0 [facility] (6 sources) Nitroglycerin; Translations: [nitroglycerin] Drug Allergy 9 Other, Low blood pressure (disorder), Other (See Comments) [facility] (19 sources) Nitroglycerin Allergy to substance 9 [...] sources) Long-term current use of anticoagulant; 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 ELECTRONICALLY SIGNED BY: Tuan Choi MD Normal Not Available CT SINUS [...] for choosing us for your care. [facility] General Surgery Office/Clini c Noteon 10-01-2023 General [...] Father and Sister. Ovarian cancer: Mother. Normal [facility] Comment on above: Result Comment: Elec troalyshaally Signed By: EVAN SARAH, Tariq Perkins\Date and Time Signed: 10/01/23 20:32 EDT Reminderson 10-01-2023 Reminders Reminders From: Pascale Copeland LPN To: GSN - Clinical; Sent: 10/01/2023 16:00:51 EDT Show up: 08/16/2033 07:00:00 EDT Subject: colonoscopy recall Due Date/Time: 09/16/2033 07:00:00 EDT Reminder/Recall Patient due for screening colonoscopy 09/16/2033. Normal [facility] Pathology Request for Lab Co rpon 09-17-2023 Pathology Request for Lab Jeison Normal [facility] Comment on above: Order Comment: PATHO LOGY GI SPECIMEN Result Comment: See report. Scanned copy available in EMR. PERFORMED BY: [place] [address] PATHOLOGIST PROJECT MANAGEMENT PROFESSOR ROSCOE CASTRO M.D. Performed By: #### H S TROP #### [address] XR CHEST (2 VW)on 08-28-2023 XR [...] Rudi Blackwood MD 08/28/23 Final result Normal [facility] CT ABDOMEN PELVIS W IV CONTR [...] Rogelio Bartlett MD 08/26/23 Final result Normal [facility] BUN + Creatinineon 4 Creatinine [Mass/Vol] 1.3 mg/dL High 0.7-1.2 [facility] Comment on above: Performed By: #### B UNCRT #### [facility] [address] [place] [address] Transporter Driver: Steve Haro MD #### PSAD #### [facility] [address] [place], [place] [id number] Transporter Driver: Bk Guerrero MD GFR/1.73 sq M.predicted among non-blacks MDRD (S/P/Bld) [Vol rate/Area] 63 mL/min/{1.73_m2} Normal >60 [facility] Comment on above: Result Comment: These [...] secretion. Performed By: #### B UNCRT #### [address] [place] [id number] Transporter Driver: Steve Haro MD #### PSAD #### [address] [address] Transporter Driver: Bk Guerrero MD Urea nitrogen [Mass/Vol] 14 mg/dL Normal 8-23 [facility] Comment on above: Performed By: #### B UNCRT #### [address] [place] [id number] Transporter Driver: Steve Haro MD #### PSAD #### [address] [id number] Transporter Driver: Bk Guerrero MD PSA, [employer] 08-21-2023 Prostatic Spec. Ag 4.30 ng/mL High 0.00-4.00 [facility] Comment on above: Result Comment: The Luther ECLIA assay is used. Results obtained with different assay methods cannot be used interchangeably. Performed By: #### B UNCRT #### [address] [place], [place] [id number] Transporter Driver: Steve Haro MD #### PSAD #### [address] [address] Transporter Driver: Bk Guerrero MD Consent for Procedure/Surger yon 08-06-2023 Consent for Procedure/Surgery [id number]#[id number] [facility] Consent for Treatmenton 07-12 Consent for Treatment [id number]#[id number] [facility] Main OR Preoperative Recordo n 08-04-2023 Main OR Preoperative Record Holding Area Document Type FT Summary Primary Physician: Tariq GORDON MD Finalized Date/Time: 08/04/23 08:14:07 Pt. Name: CLARENCE FLORES/Sex: 1960 Male Med Rec #: [id number] Physician: Tariq GORDON MD Financial #: [id number] Pt. Type: O Room/Bed: / Admit/Disch: 08/04/23 [...] 08/04/23 07:43 Elizabeth Sorto RN 08/04/23 08:14 [facility] Consent for Procedure/Surger yon 07-15-2023 Consent for Procedure/Surgery [id number]#1.00TIFF [facility] Ambulatory Visit Summaryon 0 07-14-2023 Ambulatory [...] for choosing us for your care. Normal [facility] Physician Referralon 024 Physician Referral [id number]#1.00TIFF Normal [facility] NM Heart Perfusion W stress and W [...] Eric Villa 12/17/2022 5:57 PM Dictation workstation: [id number] [id number] Interpreted By: Eric Villa, and Armida Teixeira STUDY: MYOCARDIAL PERFUSION STRESS TEST WITH EXERCISE Performing facility: [facility], [address] [place] [address], [address], [place] [address] [facility] Provider: Chaim Morelos DO, FACC PCP: Dr. Beach Supervising provider: Andra Ramirez RN, BURIAL NEEDS SALESPERSON INDICATION: Chest Pain; HISTORY: Gender: M; Age: 62 y/o ; Height: cm; Weight: kg. Diabetes; Family HX CAD; HTN; SOB; Denies smoking. COMPARISON: No comparison. ACCESSION NUMBER(S): [id number] ORDERING CLINICIAN: MIKE MORELOS TECHNIQUE: TWO DAY [...] PERFUSION STRESS TEST WITH EXERCISE Performing facility: [facility], [address] [place] [address], [address], [address] Provider: Chaim Morelos DO, [facility] PCP: Dr. Beach Supervising provider: Andra Ramirez RN, BURIAL NEEDS SALESPERSON INDICATION: Chest Pain; HISTORY: Gender: M; Age: 62 y/o ; Height: cm; Weight: kg. Diabetes; Family HX CAD; HTN; SOB; Denies smoking. COMPARISON: No comparison. ACCESSION NUMBER(S): [id number] ORDERING CLINICIAN: MIKE MORELOS TECHNIQUE: TWO DAY [...] Eric Villa 12/17/2022 5:57 PM Dictation workstation: [id number] [facility] Work Phone: NM Heart Perfusion W stress and W radionuclide IVOrdered By: Eric Villa on 12-17-2022 [facility] Work Phone: NM Heart Perfusion W stress and W radionuclide Karen 12-16-2022 Radiology Study observation (narrative) [facility] Work Phone: Glucose Poct Glucometerson 1 Glucose [Mass/Vol] 132 mg/dL Normal [facility] Comment on above: Result Comment: [place] Glucose Reference Range is dependent on time and content of last meal. Glucose of more than 200 mg/dL in a nonstressed, ambulatory subject supports the diagnosis of Diabetes Mellitus. PERFORMED BY: [place] [address] PATHOLOGIST PROJECT MANAGEMENT PROFESSOR ROSCOE CASTRO M.D. Performed By: #### H S TROP #### [address] Glucose [Mass/Vol] 141 mg/dL Normal [facility] Comment on above: Result Comment: [facility] Glucose Reference Range is dependent on time and content of last meal. Glucose of more than 200 mg/dL in a nonstressed, ambulatory subject supports the diagnosis of Diabetes Mellitus. PERFORMED BY: [place] [address] PATHOLOGIST PROJECT MANAGEMENT PROFESSOR ROSCOE CASTRO M.D. Performed By: #### B MP, CBC, CK, HS TROP, BNP #### [address] ECH echo transthoracicon ECH echo transthoracic [facility] Main [place] [address] [place] [address] Echocardiogram Signed Patient: Clarence Flores MR#: [id number] : 1960 Acct:[id number] Age/Sex: 62 / M ADM Date: 11/10/22 Loc: Room: 7N9930-3 Type: ADM INOo Attending Dr: Moises Carver [...] Signed By: Lalita Capellan MD 11/12/22 [address] [facility] Glucose Poct Glucometerson 1 Glucose [Mass/Vol] 156 mg/dL Normal [facility] Comment on above: Result Comment: [place] om Glucose Reference Range is dependent on time and content of last meal. Glucose of more than 200 mg/dL in a nonstressed, ambulatory subject supports the diagnosis of Diabetes Mellitus. PERFORMED BY: [place] [address] PATHOLOGIST PROJECT MANAGEMENT PROFESSOR ROSCOE CASTRO M.D. Performed By: #### G LULS #### Point of Care testing , Glucose [Mass/Vol] 187 mg/dL Normal [facility] Comment on above: Result Comment: [place] Glucose Reference Range is dependent on time and content of last meal. Glucose of more than 200 mg/dL in a nonstressed, ambulatory subject supports the diagnosis of Diabetes Mellitus. PERFORMED BY: [place] [address] PATHOLOGIST PROJECT MANAGEMENT PROFESSOR ROSCOE CASTRO M.D. Performed By: #### B MP, CBC, CK, HS TROP, BNP #### [address] Glucose [Mass/Vol] 162 mg/dL Normal [facility] Comment on above: Result Comment: [place] Glucose Reference Range is dependent on time and content of last meal. Glucose of more than 200 mg/dL in a nonstressed, ambulatory subject supports the diagnosis of Diabetes Mellitus. PERFORMED BY: [address] [place] [address] PATHOLOGIST PROJECT MANAGEMENT PROFESSOR ROSCOE CASTRO M.D. Performed By: #### B MP, CBC, CK, HS TROP, BNP #### [facility] [address] [place] [id number] [place] A1C with Estimated Average G alenan 2022 Glucose [Mass/Vol] 157 mg/dL Normal [facility] Comment on above: Order Comment: Comme nt add Result Comment: PERF ORMED BY: [address] [place] [address] PATHOLOGIST PROJECT MANAGEMENT PROFESSOR ROSCOE CASTRO M.D. Performed By: #### H S TROP #### [address] HbA1c (Bld) [Mass fraction] 7.1 % High 4.3-5.6 [facility] Comment on above: Order Comment: Comme nt add Result Comment: Incr eased risk for diabetes: 5.7 - 6.4 diabetes: >6.4 glycemic control for adults with diabetes: <7.0 Performed By: #### H S TROP #### [address] Activated partial thrombopla stin time (aPTT) in platelet poor plasma by coagulation aOrdered By: Damien Hercules on 2022 aPTT Coag (PPP) [Time] 29.0 s 25.1-36.5 [facility] Comment on above: A hematocrit value g reater than 55% may lead to inaccurate results in coagulation testing. Patients having hematocrit values >55% require a special collection tube for coagulation studies. Please contact the laboratory at [phone] for redraw instructions. Automated basophil %Ordered By: Damien Hercules on 2022 Basophils/100 WBC (Bld) 1.0 % Normal . [facility] Comment on above: Performed By: #### B MP, CBC, CK, HS TROP, BNP #### [address] Automated basophil countOrde red By: Damien Hercules on 2022 Basophils (Bld) [#/Vol] 0.1 10*3/uL Normal 0.0-0.2 [facility] Comment on above: Result Comment: PERF ORMED BY: [place] [address] PATHOLOGIST PROJECT MANAGEMENT PROFESSOR ROSCOE CASTRO M.D. Performed By: #### B MP, CBC, CK, HS TROP, BNP #### [address] Automated blood monocyte cou ntOrdered By: Damien Hercules on 2022 Monocytes (Bld) [#/Vol] 0.8 10*3/uL Normal 0.0-0.8 [facility] Comment on above: Performed By: #### B MP, CBC, CK, HS TROP, BNP #### [address] Automated eosinophil %Ordere d By: Damien Hercules on 2022 Eosinophils/100 WBC (Bld) 2.9 % Normal . [facility] Comment on above: Performed By: #### B MP, CBC, CK, HS TROP, BNP #### [address] Automated eosinophil countOr dered By: Damien Hercules on 2022 Eosinophils (Bld) [#/Vol] 0.3 10*3/uL Normal 0.0-0.45 [facility] Comment on above: Performed By: #### B MP, CBC, CK, HS TROP, BNP #### [address] Automated monocyte %Ordered By: Damien Hercules on 2022 Monocytes/100 WBC (Bld) 9.2 % Normal . [facility] Comment on above: Performed By: #### B MP, CBC, CK, HS TROP, BNP #### [address] Automated neutrophil %Ordere d By: Damien Hercules on 2022 Neutrophils/100 WBC (Bld) 67.2 % Normal . [facility] Comment on above: Performed By: #### B MP, CBC, CK, HS TROP, BNP #### [address] BNP ser/plasOrdered By: Ashley Hercules on 2022 Natriuretic peptide B (Bld) [Mass/Vol] 101.0 pg/mL High 5-100 [facility] Comment on above: Result Comment: PERF ORMED BY: [place] [address] PATHOLOGIST PROJECT MANAGEMENT PROFESSOR ROSCOE CASTRO M.D. Performed By: #### B MP, CBC, CK, HS TROP, BNP #### [address] Basic Metabolic Panelon 10-0 Anion gap [Moles/Vol] 11.3 mmol/L Normal 6.0-15.0 [facility] Comment on above: Performed By: #### B MP #### [address] Calcium [Mass/Vol] 9.2 mg/dL Normal 8.6-10.3 [facility] Comment on above: Performed By: #### B MP #### [address] Chloride [Moles/Vol] 106 mmol/L Normal 98-107 [facility] Comment on above: Performed By: #### B MP #### [address] CO2 [Moles/Vol] 25.2 mmol/L Normal 21.0-31.0 [facility] Comment on above: Performed By: #### B MP #### [address] Creatinine [Mass/Vol] 1.22 mg/dL Normal 0.70-1.30 [facility] Comment on above: Performed By: #### B MP #### [address] Creatinine Clr Calc Pharmacy 82.15 Normal [facility] Comment on above: Result Comment: PERF ORMED BY: [place] [address] PATHOLOGIST PROJECT MANAGEMENT PROFESSOR ROSCOE CASTRO M.D. Performed By: #### B MP #### [place] [address] [place] GFR/1.73 sq M.predicted MDRD (S/P/Bld) [Vol rate/Area] mL/min/{1.73_m2} Normal [facility] Comment on above: Performed By: #### B MP #### [address] Glucose [Mass/Vol] 298 mg/dL Significant change up 70-100 [facility] Comment on above: Result Comment: [facility] Glucose Reference Range is dependent on time and content of last meal. Glucose of more than 200 mg/dL in a nonstressed, ambulatory subject supports the diagnosis of Diabetes Mellitus. ADA recommended reference range Performed By: #### B MP #### [address] Potassium [Moles/Vol] 3.5 mmol/L Normal 3.5-5.1 [facility] Comment on above: Performed By: #### B MP #### [address] Sodium [Moles/Vol] 139 mmol/L Normal 136-145 [facility] Comment on above: Performed By: #### B MP #### [address] Urea nitrogen [Mass/Vol] 13 mg/dL Normal 7-25 [facility] Comment on above: Performed By: #### B MP #### [place] [address] [place] Creatinine Clr Calc Pharmacy 72.10 Normal [facility] Comment on above: Result Comment: PERF ORMED BY: [place] [address] PATHOLOGIST PROJECT MANAGEMENT PROFESSOR ROSCOE CASTRO M.D. Performed By: #### B MP, CBC, CK, HS TROP, BNP #### [place] [address] [place] GFR/1.73 sq M.predicted MDRD (S/P/Bld) [Vol rate/Area] 58.037 mL/min/{1.73_m2} Normal [facility] Comment on above: Performed By: #### B MP, CBC, CK, HS TROP, BNP #### [place] [address] [place] Calcium [Mass/volume] in Ser um or PlasmaOrdered By: Damien Hercules on 2022 Calcium [Mass/Vol] 9.0 mg/dL Normal 8.6-10.[address] [facility] Comment on above: Performed By: #### B MP, CBC, CK, HS TROP, BNP #### [address] Carbon dioxide, total [Moles /volume] in Serum or PlasmaOrdered By: Damien Hercules on 2022 CO2 [Moles/Vol] 26.2 mmol/L Normal 21.0-31.0 [facility] Comment on above: Performed By: #### B MP, CBC, CK, HS TROP, BNP #### [address] Chloride [Moles/volume] in S luke or PlasmaOrdered By: Damien Hercules on 2022 Chloride [Moles/Vol] 106 mmol/L Normal 98-107 [facility] Comment on above: Performed By: #### B MP, CBC, CK, HS TROP, BNP #### [address] Coagulation Profileon 2022 aPTT Coag (Bld) [Time] 29.0 s Normal 25.1-36.5 [facility] Comment on above: Order Comment: REDRA W Result Comment: A he matocrit value greater than 55% may lead to inaccurate results in coagulation testing. Patients having hematocrit values >55% require a special collection tube for coagulation studies. Please contact the laboratory at [phone] for redraw instructions. PERFORMED BY: [place] [address] PATHOLOGIST PROJECT MANAGEMENT PROFESSOR ROSCOE CASTRO M.D. Performed By: #### H S TROP #### [address] Complete Blood Count Auto Di ffon 2022 Mean Corpuscular HGB Conc 34.3 g/dL Normal 32.5-35.6 [facility] Comment on above: Performed By: #### B MP, CBC, CK, HS TROP, BNP #### [address] Monocytes/100 WBC (Bld) 20.13 % High 0.00-20.00 [facility] Comment on above: Result Comment: For adults in ED, MDW > 20.0 may be associated with a higher risk of sepsis during the first 12 hrs of hospital admission Performed By: #### B MP, CBC, CK, HS TROP, BNP #### [address] NRBC% 0.1 /100{WBC} Normal 0-0.5 [facility] Comment on above: Performed By: #### B MP, CBC, CK, HS TROP, BNP #### [address] Creatine kinase [Enzymatic a ctivity/volume] in Serum or PlasmaOrdered By: Damien Hercules on 2022 CK [Catalytic activity/Vol] 111 U/L Normal 30-223 [facility] Comment on above: Performed By: #### B MP, CBC, CK, HS TROP, BNP #### [address] Creatinine [Mass/volume] in Serum or PlasmaOrdered By: Damien Hercules on 2022 Creatinine [Mass/Vol] 1.39 mg/dL High 0.70-1.30 [facility] Comment on above: Performed By: #### B MP, CBC, CK, HS TROP, BNP #### [address] Erythrocyte distribution wid th [Ratio] by Automated countOrdered By: Damien Hercules on 2022 Erythrocyte distribution width (RBC) [Ratio] 14.8 % Normal 12.0-14.8 [facility] Comment on above: Performed By: #### B MP, CBC, CK, HS TROP, BNP #### [place] [address] [place] Erythrocytes [#/volume] in B lood by Automated countOrdered By: Damien Hercules on 2022 RBC (Bld) [#/Vol] 5.21 10*6/uL Normal 3.90-5.60 [facility] Comment on above: Performed By: #### B MP, CBC, CK, HS TROP, BNP #### [facility] [address] Glucose Poct Glucometerson 1 Glucose [Mass/Vol] 193 mg/dL Normal [facility] Comment on above: Result Comment: [place] om Glucose Reference Range is dependent on time and content of last meal. Glucose of more than 200 mg/dL in a nonstressed, ambulatory subject supports the diagnosis of Diabetes Mellitus. PERFORMED BY: [place] [address] PATHOLOGIST PROJECT MANAGEMENT PROFESSOR ROSCOE CASTRO M.D. Performed By: #### B MP, CBC, CK, HS TROP, BNP #### [place] [id number] [facility] Glucose [Mass/Vol] 219 mg/dL Normal [facility] Comment on above: Result Comment: [place] om Glucose Reference Range is dependent on time and content of last meal. Glucose of more than 200 mg/dL in a nonstressed, ambulatory subject supports the diagnosis of Diabetes Mellitus. PERFORMED BY: [place] [address] PATHOLOGIST PROJECT MANAGEMENT PROFESSOR ROSCOE CASTRO M.D. Performed By: #### H S TROP #### [address] Glucose [Mass/Vol] 388 mg/dL Normal [facility] Comment on above: Result Comment: [place] om Glucose Reference Range is dependent on time and content of last meal. Glucose of more than 200 mg/dL in a nonstressed, ambulatory subject supports the diagnosis of Diabetes Mellitus. PERFORMED BY: [place] [id number] PATHOLOGIST PROJECT MANAGEMENT PROFESSOR ROSCOE CASTRO M.D. Performed By: #### H S TROP #### [address] Commemt1 Glu2: Cleaned Meter Normal [facility] Comment on above: Result Comment: PERF ORMED BY: [place] [id number] PATHOLOGIST PROJECT MANAGEMENT PROFESSOR ROSCOE CASTRO M.D. Performed By: #### G MECCA #### Point of Care testing , Glucose [Mass/Vol] 250 mg/dL Normal [facility] Comment on above: Result Comment: [place] om Glucose Reference Range is dependent on time and content of last meal. Glucose of more than 200 mg/dL in a nonstressed, ambulatory subject supports the diagnosis of Diabetes Mellitus. Performed By: #### G MECCA #### Point of Care testing , Glucose [Mass/volume] in Ser um or PlasmaOrdered By: Damien Hercules on 2022 Glucose [Mass/Vol] 170 mg/dL High 70-[address] [facility] Comment on above: ADA recommended refe rence rangeRandom Glucose Reference Range is dependent on time and content of last meal. Glucose of more than 200 mg/dL in a nonstressed, ambulatory subject supports the diagnosis of Diabetes Mellitus. Result Comment: [place] om Glucose Reference Range is dependent on time and content of last meal. Glucose of more than 200 mg/dL in a nonstressed, ambulatory subject supports the diagnosis of Diabetes Mellitus. ADA recommended reference range Performed By: #### B MP, CBC, CK, HS TROP, BNP #### [address] Hematocrit [Volume Fraction] of Blood by Automated countOrdered By: Damien Hercules on 2022 Hematocrit (Bld) [Volume fraction] 43.8 % Normal 38.8-50.0 [facility] Comment on above: Performed By: #### B MP, CBC, CK, HS TROP, BNP #### [facility] [address] [place] [id number] [place] Hemoglobin [Mass/volume] in BloodOrdered By: Damien Hercules on 2022 Hemoglobin (Bld) [Mass/Vol] 15.0 g/dL Normal 13.0-17.0 [facility] Comment on above: Performed By: #### B MP, CBC, CK, HS TROP, BNP #### [facility] [address] [place] [id number] [place] INR in Platelet poor plasma by Coagulation assayOrdered By: Damien Hercules on 2022 INR Coag (PPP) [Relative time] 1.0 {INR} Normal [facility] Comment on above: INR Therapeutic Rang [...] Performed By: #### H S TROP #### [facility] [address] [place] [address] Leukocytes [#/volume] correc susan for nucleated erythrocytes in Blood by Automated counOrdered By: Damien Hercules on 2022 WBC corrected for nucl RBC Auto (Bld) [#/Vol] 9.2 10*3/uL 4.1-10.5 [facility] Leukocytes [#/volume] in Blo od by Automated countOrdered By: Damien Hercules on 2022 WBC (Bld) [#/Vol] 9.2 10*3/uL Normal 4.1-10.[address] [facility] Comment on above: Performed By: #### B MP, CBC, CK, HS TROP, BNP #### [facility] [address] Lipid Panelon 2022 Cholesterol [Mass/Vol] 143 mg/dL Normal 140-200 [facility] Comment on above: Order Comment: Comme nt add Result Comment: Chol less than 200 mg/dl low risk Chol 201-239 mg/dl borderline risk Chol 240 mg/dl and greater high risk Performed By: #### H S TROP #### [place] [address] [place] Cholesterol in HDL [Mass/Vol] 29 mg/dL Normal 23-92 [facility] Comment on above: Order Comment: Comme nt add Result Comment: HDL CHOL ATP-III CLASSIFICATION Cardiovascular Risk HDL > or equal to 60 mg/dL LOW HDL < 40 mg/dL HIGH Performed By: #### H S TROP #### [address] Cholesterol.total/Chol esterol in HDL [Mass ratio] 4.9 {ratio} Normal <5.0 [facility] Comment on above: Order Comment: Comme nt add Result Comment: PERF ORMED BY: [place] [address] PATHOLOGIST PROJECT MANAGEMENT PROFESSOR ROSCOE CASTRO M.D. Performed By: #### H S TROP #### [address] LDL Cholesterol,Calculated 87 mg/dL Normal 0-100 [facility] Comment on above: Order Comment: Comme nt add Result Comment: LDL ATP III CLASSIFICATION LDL less than 100 mg/dL Optimal LDL 100-129 mg/dL Near or above optimal LDL 130-159 mg/dL Borderline high LDL 160-189 mg/dL High LDL greater than 189 mg/dL Very high Performed By: #### H S TROP #### [address] Triglyceride w/Reflex 133 mg/dL Normal 0-149 [facility] Comment on above: Order Comment: Comme nt add Result Comment: TRIG ATP III CLASSIFICATION TRIG less than 150 mg/dL Normal TRIG 150-199 mg/dL Borderline high TRIG 200-500 mg/dL High TRIG greater than 500 mg/dL Very high Standard traceable to the Center for Disease Conrtrol and Prevention (CDC) test method. Performed By: #### H S TROP #### [address] VLDL CHOLESTEROL 26 mg/dL Normal [facility] Comment on above: Order Comment: Comme nt add Performed By: #### H S TROP #### [address] [place] [address] [place] Lymphocytes [#/volume] in Bl ood by Automated countOrdered By: Damien Hercules on 2022 Lymphocytes (Bld) [#/Vol] 1.8 10*3/uL Normal 1.00-4.8 [facility] Comment on above: Performed By: #### B MP, CBC, CK, HS TROP, BNP #### [address] Lymphocytes/100 leukocytes i n Blood by Automated countOrdered By: Damien Hercules on 2022 Lymphocytes/100 WBC (Bld) 19.7 % Normal . [facility] Comment on above: Performed By: #### B MP, CBC, CK, HS TROP, BNP #### [address] MCH [Entitic mass] by Automa susan countOrdered By: Damien Hercules on 2022 MCH (RBC) [Entitic mass] 28.8 pg Normal 27.5-35.2 [facility] Comment on above: Performed By: #### B MP, CBC, CK, HS TROP, BNP #### [address] MCHC Auto (RBC) [Mass/Vol]Or dered By: Damien Hercules on 2022 MCHC (RBC) [Mass/Vol] 34.3 g/dL 32.5-35.6 [facility] MCV [Entitic volume] by Auto mated countOrdered By: Damien Hercules on 2022 MCV (RBC) [Entitic vol] 84.1 fL Normal 83.5-101 [facility] Comment on above: Performed By: #### B MP, CBC, CK, HS TROP, BNP #### [address] Monocyte distribution width [Entitic volume] in Blood by AutomatedOrdered By: Damien Hercules on 2022 Monocyte distribution width Auto (Bld) [Entitic vol] 20.13 % 0.00-20.00 [facility] Comment on above: For adults in ED, MD W > 20.0 may be associated with a higher risk of sepsis during the first 12 hrs of hospital admission Neutrophils [#/volume] in Bl ood by Automated countOrdered By: Damien Hercules on 2022 Neutrophils (Bld) [#/Vol] 6.2 10*3/uL Normal 1.8-7.7 [facility] Comment on above: Performed By: #### B MP, CBC, CK, HS TROP, BNP #### [facility] [address] [place] [address] No Panel InformationOrdered By: Damien Hercules on 2022 Estimated GFR (CKD-EPI) 58.037 mL/Min [facility] Creatinine Clearance (Chem 72.10 [facility] Nucleated erythrocytes [Pres ence] in Blood by Automated countOrdered By: Damien Hercules on 2022 Nucleated RBC Auto Ql (Bld) 0.1 /100{WBC} 0-0.5 [facility] Platelet mean volume [Entiti c volume] in Blood by Automated countOrdered By: Damien Hercules on 2022 Platelet mean volume (Bld) [Entitic vol] 7.7 fL Normal 6.6-10.1 [facility] Comment on above: Performed By: #### B MP, CBC, CK, HS TROP, BNP #### [facility] [address] [place] [address] Platelets [#/volume] in Bloo d by Automated countOrdered By: Damien Hercules on 2022 Platelets (Bld) [#/Vol] 194 10*3/uL Normal 150-450 [facility] Comment on above: Performed By: #### B MP, CBC, CK, HS TROP, BNP #### [facility] [address] [place] [address] Potassium [Moles/volume] in Serum or PlasmaOrdered By: Damien Hercules on 2022 Potassium [Moles/Vol] 3.6 mmol/L Normal 3.5-5.1 [facility] Comment on above: Performed By: #### B MP, CBC, CK, HS TROP, BNP #### [address] Prothrombin time (PT)Ordered By: Damien Hercules on 2022 PT Coag (PPP) [Time] 12.4 s Normal 9.0-12.9 [facility] Comment on above: A hematocrit value g reater than 55% may lead to inaccurate results in coagulation testing. Patients having hematocrit values >55% require a special collection tube for coagulation studies. Please contact the laboratory at [phone] for redraw instructions. Order Comment: REDRA W Result Comment: A he matocrit value greater than 55% may lead to inaccurate results in coagulation testing. Patients having hematocrit values >55% require a special collection tube for coagulation studies. Please contact the laboratory at [phone] for redraw instructions. Performed By: #### H S TROP #### [address] Serum or plasma anion gap de terminationOrdered By: Damien Hercules on 2022 Anion gap [Moles/Vol] 10.4 mmol/L Normal 6.0-15.0 [facility] Comment on above: Performed By: #### B MP, CBC, CK, HS TROP, BNP #### [address] Sodium [Moles/volume] in Ser um or PlasmaOrdered By: Damien Hercules on 2022 Sodium [Moles/Vol] 139 mmol/L Normal 136-[address] [facility] Comment on above: Performed By: #### B MP, CBC, CK, HS TROP, BNP #### [place] [address] [place] Troponin I High Sensitivityo n 2022 Troponin I High Sensitivity 10.1 pg/mL Normal 0.0-20.0 [facility] Comment on above: Result Comment: PERF ORMED BY: [place] [address] PATHOLOGIST PROJECT MANAGEMENT PROFESSOR ROSCOE CASTRO M.D. Performed By: #### H S TROP #### [address] Troponin I High Sensitivity 13.0 pg/mL Normal 0.0-20.0 [facility] Comment on above: Result Comment: PERF ORMED BY: [place] [address] PATHOLOGIST PROJECT MANAGEMENT PROFESSOR ROSCOE CASTRO M.D. Performed By: #### H S TROP #### [address] Troponin I High Sensitivity 15.8 pg/mL Normal 0.0-20.0 [facility] Comment on above: Result Comment: PERF ORMED BY: [place] [address] PATHOLOGIST PROJECT MANAGEMENT PROFESSOR ROSCOE CASTRO M.D. Performed By: #### B MP, CBC, CK, HS TROP, BNP #### [address] Troponin I.cardiac [Mass/vol ume] in Serum or Plasma by Detection limit <= 0.01 ng/Ordered By: Damien Hercules on 2022 Troponin I.cardiac DL <= 0.01 ng/mL [Mass/Vol] 15.8 pg/mL 0.0-20.0 [facility] Urea nitrogen [Mass/volume] in Serum or PlasmaOrdered By: Damien Hercules on 2022 Urea nitrogen [Mass/Vol] 14 mg/dL Normal 7-25 [facility] Comment on above: Performed By: #### B MP, CBC, CK, HS TROP, BNP #### [address] XR chest 2V*on 2022 XR chest 2V* [facility] [place] [address] [place] [address] XRay Report Signed Patient: Clarence Flores MR#: [id number] : 1960 Acct:[id number] Age/Sex: 62 / M ADM Date: 11/10/22 Loc: Room: 2O5506-4 Type: ADM INOo Attending Dr: Maura Venegas [...] Oreilly Jr., D.O.11/10/2022 10:13 AM Dictation Location: [facility] Transcribed By: [facility] 11/10/22 1013 Dictated By: Ruel Oreilly Jr, DO 11/10/22 1012 Signed By: 11/10/22 1013 Normal [facility] ECG 12 lead ECGon 11-09-2022 ECG 12 lead ECG [facility] [place] [address] Electrocardiograph Report Signed Patient: Clarence Flores MR#: [id number] : 1960 Acct:[id number] Age/Sex: 61 / M ADM Date: 11/10/22 Loc: Room: [address] [place] [address] Type: ADM INOo Attending Dr: Derick Gomes [...] By Damien Hercules DO 0605 Normal [facility] CBC AUTO DIFFon 11-24-2021 BASO # 0.0 103/ul Normal 0.0-0.1 [facility] Comment on above: Performed By: #### C BC #### [facility] [address] [place] [address] Dr. Sunny Ortez Basophils/100 WBC (Bld) 0.5 % Normal 0.2-2.0 [facility] Comment on above: Performed By: #### C BC #### [facility] [address] [place] [address] Dr. Sunny Ortez EO # 0.4 103/ul Normal 0.0-0.7 [facility] Comment on above: Performed By: #### C BC #### [facility] [address] [place] [address] Dr. Sunny Ortez Eosinophils/100 WBC (Bld) 4.6 % Normal 0.9-7.0 [facility] Comment on above: Performed By: #### C BC #### [facility] [address] [place] [address] Dr. Sunny Ortez Erythrocyte distribution width (RBC) [Ratio] 14.2 % Normal 11.0-15.0 [facility] Comment on above: Performed By: #### C BC #### [facility] [address] [place] [address] Dr. Sunny Ortez Hematocrit (Bld) [Volume fraction] 45.8 % Normal 42.0-54.0 [facility] Comment on above: Performed By: #### C BC #### [facility] [address] [place] [address] Dr. Sunny Ortez Hemoglobin (Bld) [Mass/Vol] 15.1 g/dL Normal 14.0-18.0 [facility] Comment on above: Performed By: #### C BC #### [facility] [address] [place] [address] Dr. Sunny Ortez IG # 0.02 10e3/ul Normal 0.00-0.03 [facility] Comment on above: Performed By: #### C BC #### [facility] [address] [place] [address] Dr. Sunny Ortez IG % 0.2 % Normal 0.0-0.5 [facility] Comment on above: Performed By: #### C BC #### [facility] [address] [place] [address] Dr. Sunny Ortez LYMPH # 1.7 103/ul Normal 1.2-3.8 [facility] Comment on above: Performed By: #### C BC #### [facility] [address] [place] [address] Dr. Sunny Ortez Lymphocytes/100 WBC (Bld) 20.2 % Critically low 20.5-60.0 [facility] Comment on above: Performed By: #### C BC #### [facility] [address] [place] [address] Dr. Sunny Ortez MANUAL DIFF REQ NO Normal [facility] Comment on above: Performed By: #### C BC #### [facility] [address] [place] [address] Dr. Sunny Ortez MCH (RBC) [Entitic mass] 27.7 pg Normal 25.9-34.0 [facility] Comment on above: Performed By: #### C BC #### [facility] [address] [place] [address] Dr. Sunny Ortez MCHC (RBC) [Mass/Vol] 33.0 g/dL Normal 29.9-35.2 [facility] Comment on above: Performed By: #### C BC #### [facility] [address] [place] [address] Dr. Sunny Ortez MCV (RBC) [Entitic vol] 83.9 fL Normal 80.0-94.0 [facility] Comment on above: Performed By: #### C BC #### [facility] [address] [place] [address] Dr. Sunny Ortez MONO # 0.7 103/ul Normal 0.3-0.8 [facility] Comment on above: Performed By: #### C BC #### [facility] [address] [place] [address] Dr. Sunny Ortez Monocytes/100 WBC (Bld) 8.0 % Normal 1.7-12.0 [facility] Comment on above: Performed By: #### C BC #### [facility] [address] [place] [address] Dr. Sunny Ortez NEUT # 5.6 103/ul Normal 1.4-6.5 [facility] Comment on above: Performed By: #### C BC #### [facility] [address] [place] [address] Dr. Sunny Ortez Neutrophils/100 WBC (Bld) 66.5 % Normal 43.0-75.0 [facility] Comment on above: Performed By: #### C BC #### [facility] [address] [place] [address] Dr. Sunny Ortez Platelet mean volume (Bld) [Entitic vol] 9.1 fL Critically low 9.5-13.5 [facility] Comment on above: Performed By: #### C BC #### [facility] [address] [place] [address] Dr. Sunny Ortez PLT 215 103/ul Normal 150-450 [facility] Comment on above: Performed By: #### C BC #### [facility] [address] [place] [address] Dr. Sunny Ortez RBC 5.46 106/ul Normal 4.70-6.10 [facility] Comment on above: Performed By: #### C BC #### [facility] [address] [place] [address] Dr. Sunny Ortez WBC 8.4 103/ul Normal 4.0-11.0 [facility] Comment on above: Performed By: #### C BC #### [facility] [address] [place] [address] Dr. Sunny Ortez GLYCOHEMOGLOBIN A1Con 2021 ADA RECOMMENDATION SEE BELOW Normal [facility] Comment on above: Result Comment: ADA RECOMMENDED LIMIT 4.0 - 6.0 ADA THERAPEUTIC TARGET < 7.0 ACTION SUGGESTED > 7.0 Performed By: #### A 1C #### [facility] [address] [place] [address] Dr. Sunny Ortez Glucose [Mass/Vol] 117 mg/dL Normal [facility] Comment on above: Performed By: #### A 1C #### [facility] [address] [place] [address] Dr. Sunny Ortez HbA1c (Bld) [Mass fraction] 5.7 % Normal 4.5-6.2 [facility] Comment on above: Performed By: #### A 1C #### [facility] [address] [place] [address] Dr. Sunny Ortez PROF 14(COMP METB)on 022 Albumin [Mass/Vol] 3.7 g/dL Normal 3.4-5.0 [facility] Comment on above: Performed By: #### C MP #### [facility] [address] [place] [address] Dr. Sunny Ortez Albumin/Globulin [Mass ratio] 1.0 {ratio} Normal [facility] Comment on above: Performed By: #### C MP #### [facility] [address] [place] [address] Dr. Sunny Ortez ALP [Catalytic activity/Vol] 61 U/L Normal 46-116 [facility] Comment on above: Performed By: #### C MP #### [facility] [address] [place] [address] Dr. Sunny Ortez ALT [Catalytic activity/Vol] 42 U/L Normal 16-63 [facility] Comment on above: Performed By: #### C MP #### [facility] [address] [place] [address] Dr. Sunny Ortez Anion gap [Moles/Vol] 8.1 mmol/L Normal [facility] Comment on above: Performed By: #### C MP #### [facility] [address] [place] [address] Dr. Sunny Ortez AST [Catalytic activity/Vol] 28 U/L Normal 15-37 [facility] Comment on above: Performed By: #### C MP #### [facility] [address] [place] [address] Dr. Sunny Ortez Bilirubin [Mass/Vol] 0.5 mg/dL Normal 0.2-1.0 [facility] Comment on above: Performed By: #### C MP #### [facility] [address] [place] [address] Dr. Sunny Ortez Calcium [Mass/Vol] 8.7 mg/dL Normal 8.5-10.1 [facility] Comment on above: Performed By: #### C MP #### [facility] [address] [address] [address] Sunny Ortez Chloride [Moles/Vol] 107 mmol/L Normal 98-107 [facility] Comment on above: Performed By: #### C MP #### [facility] [address] [place] [address] Dr. Sunny Ortez CO2 [Moles/Vol] 30.0 mmol/L Normal 21.0-32.0 [facility] Comment on above: Performed By: #### C MP #### [facility] [address] [place] [address] Dr. Sunny Ortez Creatinine [Mass/Vol] 1.29 mg/dL Normal 0.70-1.30 [facility] Comment on above: Performed By: #### C MP #### [facility] [address] [place] [address] Dr. Sunny Ortez EGFR-AF PRYDEINIG >60 Normal >=60 [facility] Comment on above: Performed By: #### C MP #### [facility] [address] [place] [address] Dr. Sunny Ortez EGFR-NON AF PRYDEINIG 57 mL/min/1.73m2 Critically low >=60 [facility] Comment on above: Performed By: #### C MP #### [facility] [address] [place] [address] Dr. Sunny Ortez Globulin (S) [Mass/Vol] 3.7 g/dL Normal [facility] Comment on above: Performed By: #### C MP #### [facility] [address] [place] [address] Dr. Sunny Ortez Glucose [Mass/Vol] 108 mg/dL Critically high 74-106 [facility] Comment on above: Performed By: #### C MP #### [facility] [address] [place] [address] Dr. Sunny Ortez Potassium [Moles/Vol] 4.1 mmol/L Normal 3.5-5.1 [facility] Comment on above: Performed By: #### C MP #### [facility] [address] [place] [address] Dr. Sunny Ortez Protein [Mass/Vol] 7.4 g/dL Normal 6.4-8.2 [facility] Comment on above: Performed By: #### C MP #### [facility] [address] [place] [address] Dr. Sunny Ortez Sodium [Moles/Vol] 141 mmol/L Normal 136-145 [facility] Comment on above: Performed By: #### C MP #### [facility] [address] [place] [address] Dr. Sunny Ortez Urea nitrogen [Mass/Vol] 16.0 mg/dL Normal 7.0-18.0 [facility] Comment on above: Performed By: #### C MP #### [facility] [address] [place] [address] Dr. uSnny Ortez Urea nitrogen/Creatinine [Mass ratio] 12.4 mg/mg Normal [facility] Comment on above: Performed By: #### C MP #### [facility] [address] [place] [address] Dr. Sunny Ortez OCC BLD IMMUNO SCREENon 10-12 OCCULT BLOOD Negative Normal NEGATIVE [facility] Comment on above: Performed By: #### O BSCRN #### [facility] [address] [place] [address] Dr. Sunny Ortez Covid-19 PCR ([facility])on 10-12 SARS-CoV-2 (COVID-19) RNA RENÉE+probe Ql (Unsp spec) Not detected Normal NOT DETECTED [facility] Comment on above: Result Comment: When diagnostic [...] for this test is supported by the [employer] Professor of Health and Human Service's declaration that [...] used). Performed By: #### C MP #### [facility] [address] [place] [address] Dr. Sunny Ortez MRI ABDOMEN W CONon [...] ELVIN JENKINS Date: 2021-05-06 07:49 Normal [facility] CREATININEon 05-04-2021 Creatinine [Mass/Vol] 1.37 mg/dL Critically high 0.66-1.25 [facility] Comment on above: Performed By: #### C ALISHA #### [facility] [address] [address] [address] Sunny Ortez EGFR-AF PRYDEINIG >60 Normal >=60 [facility] Comment on above: Performed By: #### C ALISHA #### [facility] [address] [address] [address] Sunny Ortez EGFR-NON AF PRYDEINIG 53 mL/min/1.73m2 Critically low >=60 [facility] Comment on above: Performed By: #### C ALISHA #### [facility] [address] [address] [address] Sunny Ortez CREATININEon 04-12-2021 Creatinine [Mass/Vol] 1.28 mg/dL Critically high 0.66-1.25 [facility] Comment on above: Performed By: #### C ALISHA #### [facility] [address] [address] [address] Sunny Ortez EGFR-AF PRYDEINIG >60 Normal >=60 [facility] Comment on above: Performed By: #### C ALISHA #### [facility] [address] [address] [address] Sunny rOtez EGFR-NON AF PRYDEINIG 58 mL/min/1.73m2 Critically low >=60 [facility] Comment on above: Performed By: #### C ALISHA #### [facility] [address] [place] [address] Dr. Sunny Ortez MRI ABDOMEN WO CONon [...] by: STEVE COLLADO Date: 2021-04-12 14:39 Normal [facility] CT ABD/PELV W CONon 03-28-19 [...] mild inflammatory changes. Consider cystitis Normal [facility] INSULINon 03-26-2021 Insulin 30.7 uIU/mL Critically high 2.6-24.9 [facility] Comment on above: Performed By: #### I NSULIN #### [facility] [address] [place] [address] Dr. Sunny Ortez XR KNEE LT 4V [...] STEVE PALACIOS Date: 2021-03-25 17:14 Normal [facility] BNPon 03-24-2021 Natriuretic peptide B (Bld) [Mass/Vol] 202.0 pg/mL Normal <=900.0 [facility] Comment on above: Performed By: #### C MP #### [facility] [address] [place] [address] Dr. Sunny Ortez CBC AUTO DIFFon 03-24-2021 BASO # 0.1 103/ul Normal 0.0-0.1 [facility] Comment on above: Performed By: #### C BC #### [facility] [address] [place] [address] Dr. Sunny Ortez Basophils/100 WBC (Bld) 0.8 % Normal 0.2-2.0 [facility] Comment on above: Performed By: #### C BC #### [facility] [address] [place] [address] Dr. Sunny Ortez EO # 0.5 103/ul Normal 0.0-0.7 [facility] Comment on above: Performed By: #### C BC #### [facility] [address] [place] [address] Dr. Sunny Ortez Eosinophils/100 WBC (Bld) 4.6 % Normal 0.9-7.0 [facility] Comment on above: Performed By: #### C BC #### [facility] [address] [place] [address] Dr. Sunny Ortez Erythrocyte distribution width (RBC) [Ratio] 13.6 % Normal 11.0-15.0 [facility] Comment on above: Performed By: #### C BC #### [facility] [address] [place] [address] Dr. Sunny Ortez Hematocrit (Bld) [Volume fraction] 45.6 % Normal 42.0-54.0 [facility] Comment on above: Performed By: #### C BC #### [facility] [address] [place] [address] Dr. Sunny Ortez Hemoglobin (Bld) [Mass/Vol] 15.2 g/dL Normal 14.0-18.0 [facility] Comment on above: Performed By: #### C BC #### [facility] [address] [place] [address] Dr. Sunny Ortez IG # 0.04 10e3/ul Critically high 0.00-0.03 [facility] Comment on above: Performed By: #### C BC #### [facility] [address] [place] [address] Dr. Sunny Ortez IG % 0.4 % Normal 0.0-0.5 [facility] Comment on above: Performed By: #### C BC #### [facility] [address] [place] [address] Dr. Sunny Ortez LYMPH # 1.9 103/ul Normal 1.2-3.8 [facility] Comment on above: Performed By: #### C BC #### [facility] [address] [place] [address] Dr. Sunny Ortez Lymphocytes/100 WBC (Bld) 18.4 % Critically low 20.5-60.0 [facility] Comment on above: Performed By: #### C BC #### [facility] [address] [place] [address] Dr. Sunny Ortez MANUAL DIFF REQ NO Normal [facility] Comment on above: Performed By: #### C BC #### [facility] [address] [address] [address] Sunny Ortez MCH (RBC) [Entitic mass] 27.9 pg Normal 25.9-34.0 [facility] Comment on above: Performed By: #### C BC #### [facility] [address] [place] [address] Dr. Sunny Ortez MCHC (RBC) [Mass/Vol] 33.3 g/dL Normal 29.9-35.2 [facility] Comment on above: Performed By: #### C BC #### [facility] [address] [place] [address] Dr. Sunny Ortez MCV (RBC) [Entitic vol] 83.7 fL Normal 80.0-94.0 [facility] Comment on above: Performed By: #### C BC #### [facility] [address] [place] [address] Dr. Sunny Ortez MONO # 0.8 103/ul Normal 0.3-0.8 [facility] Comment on above: Performed By: #### C BC #### [facility] [address] [place] [address] Dr. Sunny Ortez Monocytes/100 WBC (Bld) 8.0 % Normal 1.7-12.0 [facility] Comment on above: Performed By: #### C BC #### [facility] [address] [place] [address] Dr. Sunny Ortez NEUT # 7.0 103/ul Critically high 1.4-6.5 [facility] Comment on above: Performed By: #### C BC #### [facility] [address] [place] [address] Dr. Sunny Ortez Neutrophils/100 WBC (Bld) 67.8 % Normal 43.0-75.0 [facility] Comment on above: Performed By: #### C BC #### [facility] [address] [place] [address] Dr. Sunny Ortez Platelet mean volume (Bld) [Entitic vol] 9.5 fL Normal 9.5-13.5 [facility] Comment on above: Performed By: #### C BC #### [facility] [address] [address] [address] Sunny Oretz PLT 322 103/ul Normal 150-450 [facility] Comment on above: Performed By: #### C BC #### [facility] [address] [place] [address] Dr. Sunny Ortez RBC 5.45 106/ul Normal 4.70-6.10 [facility] Comment on above: Performed By: #### C BC #### [facility] [address] [place] [address] Dr. Sunny Ortez WBC 10.4 103/ul Normal 4.0-11.0 [facility] Comment on above: Performed By: #### C BC #### [facility] [address] [place] [address] Dr. Sunny Ortez FREE THYROXINE INDEX T7on FTI 3.01 Normal [facility] Comment on above: Performed By: #### C MP #### [facility] [address] [place] [address] Dr. Sunny Ortez T3U 35.0 % Normal 23.5-40.5 [facility] Comment on above: Performed By: #### C MP #### [facility] [address] [place] [address] Dr. Sunny Ortez T4 [Mass/Vol] 8.60 ug/dL Normal 5.53-11.00 [facility] Comment on above: Performed By: #### C MP #### [facility] [address] [place] [address] Dr. Sunny Ortez GLYCOHEMOGLOBIN A1Con 2021 ADA RECOMMENDATION ADA THERAPEUTIC TARG ET 6.0 - 7.0 ACTION SUGGESTED > 7.0 Normal [facility] Comment on above: Performed By: #### A 1C #### [facility] [address] [place] [address] Dr. Sunny Ortez Glucose [Mass/Vol] 197 mg/dL Normal [facility] Comment on above: Performed By: #### A 1C #### [facility] [address] [address] [address] Sunny Ortez HbA1c (Bld) [Mass fraction] 8.5 % Critically high <=6.0 [facility] Comment on above: Performed By: #### A 1C #### [facility] [address] [address] [address] Sunny Ortez LIPID PROFILEon 03-24-2021 CHOL-HDL RATIO NORM SEE BELOW Normal [facility] Comment on above: Result Comment: 3.3 - 4.4 LOW RISK 4.4 - 7.1 AVERAGE RISK 7.1 - 11.0 MODERATE RISK >11.0 HIGH RISK Performed By: #### C MP #### [facility] [address] [address] [address] Sunny Ortez Cholesterol [Mass/Vol] 150 mg/dL Normal <=200 [facility] Comment on above: Performed By: #### C MP #### [facility] [address] [address] [address] Sunny Ortez Cholesterol in HDL [Mass/Vol] 30 mg/dL Normal [facility] Comment on above: Performed By: #### C MP #### [facility] [address] [address] [address] Sunny Ortez Cholesterol in LDL [Mass/Vol] 96.8 mg/dL Normal [facility] Comment on above: Performed By: #### C MP #### [facility] [address] [address] [address] Sunny Ortez Cholesterol.total/Chol esterol in HDL [Mass ratio] 5.0 {ratio} Normal [facility] Comment on above: Performed By: #### C MP #### [facility] [address] [address] [address] Sunny Ortez HDL NORMAL > or = 60 mg/dl - LO W CARDIOVASCULAR RISK <40 mg/dl - HIGH CARDIOVASCULAR RISK Normal [facility] Comment on above: Performed By: #### C MP #### [facility] [address] [address] [address] Sunny Ortez LDL CALC NORMAL SEE BELOW Normal [facility] Comment on above: Result Comment: <100 mg/dl OPTIMAL 100 - 129 mg/dl NEAR OR ABOVE OPTIMAL 130 - 159 mg/dl BORDERLINE HIGH 160 - 189 mg/dl HIGH >190 mg/dl VERY HIGH Performed By: #### C MP #### [facility] [address] [place] [address] Dr. Sunny Ortez Triglyceride [Mass/Vol] 116 mg/dL Normal <=150 [facility] Comment on above: Performed By: #### C MP #### [facility] [address] [place] [address] Dr. Sunny Ortez VLDL CALC 23.2 mg/dL Normal [facility] Comment on above: Performed By: #### C MP #### [facility] [address] [place] [address] Dr. Sunny Ortez PROF 14(COMP METB)on 022 Albumin [Mass/Vol] 3.5 g/dL Normal 3.5-5.0 [facility] Comment on above: Performed By: #### C MP #### [facility] [address] [place] [address] Dr. Sunny Ortez Albumin/Globulin [Mass ratio] 1.0 {ratio} Normal [facility] Comment on above: Performed By: #### C MP #### [facility] [address] [place] [address] Dr. Sunny Ortez ALP [Catalytic activity/Vol] 73 U/L Normal 38-126 [facility] Comment on above: Performed By: #### C MP #### [facility] [address] [place] [address] Dr. Sunny Ortez ALT [Catalytic activity/Vol] 28 U/L Normal 21-72 [facility] Comment on above: Performed By: #### C MP #### [facility] [address] [place] [address] Dr. Sunny Ortez Anion gap [Moles/Vol] 14.7 mmol/L Normal [facility] Comment on above: Performed By: #### C MP #### [facility] [address] [place] [address] Dr. Sunny Ortez AST [Catalytic activity/Vol] 13 U/L Critically low 17-59 [facility] Comment on above: Performed By: #### C MP #### [facility] [address] [address] [address] Sunny Ortez Bilirubin [Mass/Vol] 0.7 mg/dL Normal 0.2-1.3 [facility] Comment on above: Performed By: #### C MP #### [facility] [address] [address] [address] Sunny Ortez Calcium [Mass/Vol] 8.6 mg/dL Normal 8.4-10.2 [facility] Comment on above: Performed By: #### C MP #### [facility] [address] [place] [address] Dr. Sunny Ortez Chloride [Moles/Vol] 105 mmol/L Normal 98-107 [facility] Comment on above: Performed By: #### C MP #### [facility] [address] [place] [address] Dr. Sunny Ortez CO2 [Moles/Vol] 23.6 mmol/L Normal 22.0-30.0 [facility] Comment on above: Performed By: #### C MP #### [facility] [address] [place] [address] Dr. Sunny Ortez Creatinine [Mass/Vol] 1.33 mg/dL Critically high 0.66-1.25 [facility] Comment on above: Performed By: #### C MP #### [facility] [address] [place] [address] Dr. Sunny Ortez EGFR-AF PRYDEINIG >60 Normal >=60 [facility] Comment on above: Performed By: #### C MP #### [facility] [address] [address] [address] Sunny Ortez EGFR-NON AF PRYDEINIG 55 mL/min/1.73m2 Critically low >=60 [facility] Comment on above: Performed By: #### C MP #### [facility] [address] [place] [address] Dr. Sunny Ortez Globulin (S) [Mass/Vol] 3.6 g/dL Normal [facility] Comment on above: Performed By: #### C MP #### [facility] [address] [address] [address] Sunny Ortez Glucose [Mass/Vol] 253 mg/dL Critically high 74-106 [facility] Comment on above: Performed By: #### C MP #### [facility] [address] [address] [address] Sunny Ortez Potassium [Moles/Vol] 4.3 mmol/L Normal 3.4-5.0 [facility] Comment on above: Performed By: #### C MP #### [facility] [address] [address] [address] Sunny Ortez Protein [Mass/Vol] 7.1 g/dL Normal 6.1-8.2 [facility] Comment on above: Performed By: #### C MP #### [facility] [address] [address] [address] Sunny Ortez Sodium [Moles/Vol] 139 mmol/L Normal 137-145 [facility] Comment on above: Performed By: #### C MP #### [facility] [address] [address] [address] Sunny Ortez Urea nitrogen [Mass/Vol] 18.0 mg/dL Normal 9.0-20.0 [facility] Comment on above: Performed By: #### C MP #### [facility] [address] [address] [address] Sunny Ortez Urea nitrogen/Creatinine [Mass ratio] 13.5 mg/mg Normal [facility] Comment on above: Performed By: #### C MP #### [facility] [address] [address] [address] Sunny Ortez TSHon 03-24-2021 TSH 1.335 uIU/mL Normal 0.470-4.68 0 [facility] Comment on above: Performed By: #### C MP #### [facility] [address] [address] [address] Sunny Ortez TSH RANGE SEE BELOW Normal [facility] Comment on above: Result Comment: <0.3 4 UIU/ml HYPERTHYROID 0.34-5.60 UIU/ml EUTHYROID >5.60 UIU/ml HYPOTHYROID Performed By: #### C MP #### [facility] [address] [place], [place] [address] Dr. Sunny Ortez URIC ACID SERUMon 03-24-2021 Urate [Mass/Vol] 4.9 mg/dL Normal 3.5-8.5 [facility] Comment on above: Performed By: #### C MP #### [facility] [address] [place], [place] [address] Dr. Sunny Ortez Basic Metabolic Panlon 06-20 Anion gap [Moles/Vol] 11 mmol/L Normal 9-18 [facility] Calcium [Mass/Vol] 8.9 mg/dL Normal 8.5-10.2 [facility] Chloride [Moles/Vol] 106 mmol/L High 97-105 [facility] CO2 [Moles/Vol] 22 mmol/L Normal 22-30 [facility] Creatinine [Mass/Vol] 1.28 mg/dL High 0.73-1.22 [facility] eGFR- Amer. >60 Normal [facility] GFR/1.73 sq M predicted among non-blacks MDRD (S/P/Bld) [Vol rate/Area] 58 . Normal [facility] Comment on above: Result Comment: eGFR [...] GFR. Glucose [Mass/Vol] 148 mg/dL High 74-99 [facility] Comment on above: Result Comment: The [place] [employer] (ADA) provides guidance for cutoff [...] Standards of Medical Care in Diabetes 2016, [place] [employer]. Diabetes Care. 2016.39(Suppl 1). Potassium [Moles/Vol] 4.5 mmol/L Normal 3.7-5.1 [facility] Sodium [Moles/Vol] 139 mmol/L Normal 136-144 [facility] Urea nitrogen [Mass/Vol] 10 mg/dL Normal 9-24 [facility] CNPNon 06-21-2019 CNPN Telephone (UROALDENN) -- CLARENCE FLORES ([id number]) 1960 M Date Time Provider Department 06/21/19 DIANE DILLON PA-C During your visit today, we recorded the following information about you: Diane Dillon PA-C 06/21/2019 2:[address] and CXR with no recurrence or mets. Repeat CT and CXR in 6M. Patient to schedule on his own at [facility] [place] Dillon PA-C Pager [phone] Office [phone] Allergies As of Date: 06/21/2019 Noted Allergy Reaction NITROGLYCERIN 11/26/2018 14 - Other: See Comments Date Reviewed: 02/05/2019 Reviewed by: Diane Dillon - Fully Assessed Reason for Visit: Results [95] Primary Visit Diagnosis:Left renal mass [N28.89] Other Visit Diagnosis:Renal cell carcinoma of left kidney (HCC) [C64.2] Order(s):XR CHEST 2V FRONTAL/LAT [[id number]] Order #: [id number] FUTURE CT ABD/PEL W IVCON [[id number]] Order #: [id number] FUTURE iv contrast (will be provided with [...] by DIANE DILLON PA-C on 06/21/19 [address] [facility] [address] ABD/PEL W IVCONon 05-11-[address] ABD/PEL W IVCON * * *Final Report* * * DATE OF EXAM: Jun 21 2019 9:40AM [facility] 0530 - CT ABD/PEL W [...] any questions regarding this interpretation, please call [phone]. If you are unable to reach us at the number above, please feel free to contact [facility] eRadiology at [phone]. [id number] Normal [facility] PROGRESSon 06-21-2019 PROGRESS HNO ID: [id number] Author: Holly Garcia (Tech) Service: ? Author Type: Deputy Of Counter Intelligence Type: Progress Notes Filed: 06/21/2019 2:25 PM [...] Garcia June 21, 2019 2:24 PM Normal [facility] PROGRESS HNO ID: [id number] Author: Holly Garcia (Tech) Service: ? Author Type: Deputy Of Counter Intelligence Type: Progress Notes Filed: 06/21/2019 9:51 AM [...] given.. PATIENT DISCHARGED TO: Ambulatory patient, left [place] department area. A Diagnostic radioactive procedure has taken place, with no further precautions necessary other than routine body substance precautions. More information regarding radiation safety can be found using this link: [email or web address] SIGNATURE: Holly Garcia PATIENT NAME: Clarence Flores DATE: June 21, 2019 TIME: 8:39 AM PAGER/CONTACT #: Normal [facility] XR CHEST 2V FRONTAL/LATon XR CHEST [...] any questions regarding this interpretation, please call [phone]. If you are unable to reach us at the number above, please feel free to contact [facility] eRadiology at [phone]. [id number] Normal [facility] CNPNon 06-17-2019 CNPN Telephone (RADTSA) -- MARKCLARENCE ([id number]) 1960 M Date Time Provider Department 06/17/19 RIKAMarco AntonioMAICO (HISTORICAL) KITMaurice During your visit today, we recorded the following information about you: Clarisse Alicia 06/17/2019 3:19 PM Signed Mark Clarence [id number] is coming in Tuesday 06/20 for CTs w/IV on; please sign pending ISTAT BMP as our lab's chemistry will be down that day and he will need CRE clearance prior to. Thanks Clarisse Alicia, senior clinician [facility] Allergies As of Date: 06/17/2019 Noted Allergy Reaction NITROGLYCERIN 11/26/2018 14 - Other: See Comments Date Reviewed: 02/05/2019 Reviewed by: Diane Dunn) Darshana - Fully Assessed Reason for Visit: Orders [681] Primary Visit Diagnosis:Left renal mass [N28.89] Order(s):ISTAT BMP [SQISTBMP] Order #: [id number] FUTURE Prescriptions as of 06/17/2019 Sig: IV [...] Status:Closed by DIANE DILLON PA-C on 06/17/19 [facility] CNOVon 02-05-2019 CNOV Office Visit (UROLMN ) -- CLARENCE FLORES ([id number]) 1960 M Date Time Provider Department 02/05/19 10:50 AM DIANE DILLON) UROGIL During your visit today, we recorded the following information about you: Pulse Blood pressure Weight Height 64/minute 179/81 120.5 kg 1.676 m Diane Dillon PA-C 02/05/2019 10:49 AM Signed [facility] SUPPORT TECHNICIAN [facility] POST-OPERATIVE PATIENT CC: Patient is here [...] PA-C Electronically signed Referring Provider: MAICO ANG [[id number]] Allergies As of Date: 02/05/2019 Noted Allergy Reaction NITROGLYCERIN 11/26/2018 14 - Other: See Comments Date Reviewed: 02/05/2019 Reviewed by: Diane Dunn) Darshana - Fully Assessed Visit Diagnosis:Renal cell carcinoma of left kidney (HCC) [C64.2] Order(s):CT ABD/PEL W IVCON [[id number]] Order #: [id number] FUTURE iv contrast (will be provided with [...] 1 EachRfl: 0 XR CHEST 2V FRONTAL/LAT [[id number]] Order #: [id number] FUTURE BASIC METABOLIC PNL [SQBMP] Order #: [id number] FUTURE Prescriptions as of 02/05/2019 Sig: HYDRALAZINE [...] Status:Closed by DIANE DILLON PA-C on 02/05/19 [facility] CNPTOUTREAMaria M 02-05-2019 [facility] Patient Outreach (UR OLMN) -- CLARENCE FLORES ([id number]) 1960 M Date Time Provider Department 02/05/19 DIANE DILLON[facility] During your visit today, we recorded the following information about you: Allergies As of Date: 02/05/2019 Noted Allergy Reaction NITROGLYCERIN 11/26/2018 14 - Other: See Comments Date Reviewed: 02/05/2019 Reviewed by: Diane Dunn) Darshana - Fully Assessed Visit Diagnosis:Screening for genitourinary condition [Z13.89] Order(s):UA CHEMSTRIP ONLY [SQUA] Order #: [id number]. #:[id number] Prescriptions as of 02/05/2019 Sig: IV CONTRAST [...] Status:Closed by STEPHANE, PRODUSER on 02/22/19 Normal [facility] PROGRESSon 02-05-2019 PROGRESS HNO ID: [id number] Author: Diane Dillon Service: ? Author Type: Physician [employer] Dean Type: Progress Notes Filed: 02/05/2019 10:49 AM Note Text: [facility] POST-OPERATIVE PATIENT CC: Patient is here [...] arise Diane Dillon PA-C Electronically signed Normal [facility] Urinalysison 02-05-2019 Bilirubin, Urine Negative Normal Negative [facility] Comment on above: Performed By: #### U A ####[address] [place] [address] [address] [phone] Clarity (U) Clear Normal Clear [facility] Comment on above: Performed By: #### U A ####[place] [address] [address] [phone] Color (U) Yellow Normal Yellow [facility] Comment on above: Performed By: #### U A ####[place] [address] [address] [phone] Comments SEE COMMENT Normal [facility] Comment on above: Result Comment: Micr oscopic not warranted Performed By: #### U A ####[place] [address] [address] [phone] Glucose Ql (U) Negative Normal Negative [facility] Comment on above: Performed By: #### U A ####[place] [address] [address] [phone] Hemoglobin/Blood,Ur Negative Normal Negative [facility] Comment on above: Performed By: #### U A ####[place] [address] [address] [phone] Ketones Ql (U) Negative Normal Negative [facility] Comment on above: Performed By: #### U A ####[facility] [phone] Leukest Negative Normal Negative [facility] Comment on above: Performed By: #### U A ####[facility] [phone] Nitrite Ql (U) Negative Normal Negative [facility] Comment on above: Performed By: #### U A ####[place] [address] [address] [phone] pH (Bld) 6.5 Normal 4.5-8.0 [facility] Comment on above: Performed By: #### U A ####[address] [place] [phone] Protein (U) [Mass/Vol] Trace Criticall y abnormal Negative [facility] Comment on above: Performed By: #### U A ####[address] [place] [phone] Specific [place], Ur 1.020 Normal 1.005-1 .03 0 [facility] Comment on above: Performed By: #### U A ####[place] [phone] Urine Shin Comment SEE COMMENT Normal [facility] Comment on above: Result Comment: N/A Performed By: #### U A ####[place] [phone] Urobilinogen Qn (U) Normal Normal Normal [facility] Comment on above: Performed By: #### U A ####[place] [phone] Basic Metabolic Panlon 12-25 Anion gap [Moles/Vol] 9 mmol/L Normal 9-18 [facility] Comment on above: Performed By: #### C BCDIF, BMP ####[address] [phone] Calcium [Mass/Vol] 8.3 mg/dL Low 8.5-10.2 [facility] Comment on above: Performed By: #### C BCDIF, BMP ####[id number] [place], [place] [phone] Chloride [Moles/Vol] 109 mmol/L High 97-105 [facility] Comment on above: Performed By: #### C BCDIF, BMP ####[address], [place] [phone] CO2 [Moles/Vol] 21 mmol/L Low 22-30 [facility] Comment on above: Performed By: #### C KAREL, BMP ####[address] [place], [place] [phone] Creatinine [Mass/Vol] 1.24 mg/dL High 0.73-1.22 [facility] Comment on above: Performed By: #### C DARRYLF, BMP ####[place] [address] [address] [place], [place] [phone] eGFR- Amer. >60 Normal [facility] Comment on above: Performed By: #### C KAREL, BMP ####[address] [phone] GFR/1.73 sq M predicted among non-blacks MDRD (S/P/Bld) [Vol rate/Area] mL/min/{1.73_m2} Normal [facility] Comment on above: Result Comment: eGFR [...] GFR. Performed By: #### C BCDIF, BMP ####[address] [phone] Glucose [Mass/Vol] 117 mg/dL High 74-99 [facility] Comment on above: Result Comment: The [place] [employer] (ADA) provides guidance for cutoff [...] Standards of Medical Care in Diabetes 2016, [place] [employer]. Diabetes Care. 2016.39(Suppl 1). Performed By: #### C KAREL, BMP ####[place] [address] [address], [place] [phone] Potassium [Moles/Vol] 3.8 mmol/L Normal 3.7-5.1 [facility] Comment on above: Performed By: #### C KAREL BMP ####[place] [address] [address], [place] [phone] Sodium [Moles/Vol] 139 mmol/L Normal 136-144 [facility] Comment on above: Performed By: #### C KAREL, BMP ####[place] [address] [address] [place], [place] [phone] Urea nitrogen [Mass/Vol] 16 mg/dL Normal 9-24 [facility] Comment on above: Performed By: #### C KAREL, BMP ####[place] [address] [address], [place] [phone] CBC and Differentialon 12-25 Abs Baso 0.04 k/uL Normal <0.11 [facility] Comment on above: Performed By: #### C BCDIF, BMP ####[place] [address] [address] [place], [place] [phone] Abs [place] 1.12 k/uL High <0.87 [facility] Comment on above: Performed By: #### C BCKATLYNF, BMP ####[place] [address] [address] [place], [place] [phone] Abs Neut 9.63 k/uL High 1.45-7.50 [facility] Comment on above: Performed By: #### C BCDIF, BMP ####[place] [address] [address] [phone] Absolute nRBC <0.01 Normal <0.01 [facility] Comment on above: Performed By: #### C BCDIF, BMP ####[place] [address] [address] [phone] Basophils/100 WBC (Bld) 0.3 % Normal [facility] Comment on above: Performed By: #### C BCDIF, BMP ####[place] [address] [address] [phone] DTYPE Auto Diff Normal [facility] Comment on above: Performed By: #### C BCDIF, BMP ####[place] [address] [address] [phone] Eosinophils (Bld) [#/Vol] 0.24 10*3/uL Normal <0.46 [facility] Comment on above: Performed By: #### C BCDIF, BMP ####[place] [address] [address] [phone] Eosinophils/100 WBC (Bld) 2.0 % Normal [facility] Comment on above: Performed By: #### C BCDIF, BMP ####[place] [address] [address] [phone] Erythrocyte distribution width (RBC) [Ratio] 13.7 % Normal 11.5-15.0 [facility] Comment on above: Performed By: #### C BCDIF, BMP ####[place] [address] [address] [phone] Hematocrit (Bld) [Volume fraction] 39.9 % Normal 39.0-51.0 [facility] Comment on above: Performed By: #### C BCDIF, BMP ####[place] [address] [address] [place], [place] [phone] Hemoglobin (Bld) [Mass/Vol] 13.3 g/dL Normal 13.0-17.0 [facility] Comment on above: Performed By: #### C BCDIF, BMP ####[place] [address] [address] [place], [place] [phone] Lymphocytes (Bld) [#/Vol] 1.25 10*3/uL Normal 1.00-4.00 [facility] Comment on above: Performed By: #### C BCDIF, BMP ####[place] [address] [address] [place], [place] [phone] Lymphocytes/100 WBC (Bld) 10.2 % Normal [facility] Comment on above: Performed By: #### C BCDIF, BMP ####[address], [place] [phone] MCH (RBC) [Entitic mass] 29.3 pG Normal 26.0-34.0 [facility] Comment on above: Performed By: #### C BCDIF, BMP ####[place] [address] [address] [place], [place] [phone] MCHC (RBC) [Mass/Vol] 33.3 g/dL Normal 30.5-36.0 [facility] Comment on above: Performed By: #### C BCDIF, BMP ####[place] [address] [place], [place] [phone] MCV (RBC) [Entitic vol] 87.9 fL Normal 80.0-100.0 [facility] Comment on above: Performed By: #### C BCDIF, BMP ####[place] [address] [place], [place] [phone] Monocytes/100 WBC (Bld) 9.1 % Normal [facility] Comment on above: Performed By: #### C BCDIF, BMP ####[place] [address], [place] [phone] Neutrophils/100 WBC (Bld) 78.4 % Normal [facility] Comment on above: Performed By: #### Pablo VINSON, BMP ####[facility]Clevel[address], [place] [phone] NRBCs 0.0 /100 WBC Normal 0 [facility] Comment on above: Performed By: #### Pablo VINSON, BMP ####[facility]CN[address] [place], [place] [phone] Platelet mean volume (Bld) [Entitic vol] 9.6 fL Normal 9.0-12.7 [facility] Comment on above: Performed By: #### C KAREL, BMP ####[place] [address] [place], [place] [phone] Platelets (Bld) [#/Vol] 241 10*3/uL Normal 150-400 [facility] Comment on above: Performed By: #### C KAREL, BMP ####[place] [address] [place], [place] [phone] RBC (Bld) [#/Vol] 4.54 10*6/uL Normal 4.20-6.00 [facility] Comment on above: Performed By: #### Pablo VINSON, BMP ####[place] [address] [place], [place] [phone] WBC (Bld) [#/Vol] 12.28 10*3/uL High 3.70-11.00 [facility] Comment on above: Performed By: #### Pablo VINSON, BMP ####[place] [address]CNorth [place], [place] [phone] PROGRESSon 12-25-2018 PROGRESS HNO ID: [id number] Author: Clarence (Geovanna Schmidt Service: Urology Author Type: Resident Type: Progress Notes Filed: 12/25/2018 9:45 AM Note Text: [facility] UROLOGY PROGRESS NOTE Name: Clarence Flores Bed: [id number]/[id number] Date: December 25, 2018 After Hours [facility]rology Service Pager: [phone] ASSESSMENT AND PLAN Clarence Flores is a [...] Imaging n/a Clarence Schmidt MD Personal Pager: [phone] For weekend or after hours issues [place] [phone] Normal [facility] PROGRESS HNO ID: [id number] Author: Kate Ruiz) Lion Service: Urology Author [...] PRN - sodium chloride 0.65 % 2 [place] (AYR, [place]CE[place]) 2 [place] EACH NOSTRIL PRN - tamsulosin ER 0.4 [...] to discharge. Signature: Kate Seymour CNP Pager: [phone] Date of service: 12/25/2018 Normal [facility] Basic Metabolic Panlon 12-24 Anion gap [Moles/Vol] 16 mmol/L Normal 9-18 [facility] Comment on above: Performed By: #### C KAREL BMP ####[place] [address] [place], [place] [phone] Calcium [Mass/Vol] 8.7 mg/dL Normal 8.5-10.2 [facility] Comment on above: Performed By: #### C BCKATLYNF, BMP ####[place] [address] [place], [place] [phone] Chloride [Moles/Vol] 104 mmol/L Normal 97-105 [facility] Comment on above: Performed By: #### C BCKRYSTAL, BMP ####[place] [address] [place], [place] [phone] CO2 [Moles/Vol] 18 mmol/L Low 22-30 [facility] Comment on above: Performed By: #### C BCDIF, BMP ####[facility] [place], [place] [phone] Creatinine [Mass/Vol] 1.26 mg/dL High 0.73-1.22 [facility] Comment on above: Performed By: #### C KAREL, BMP ####[facility] [place], [place] [phone] eGFR- Amer. >60 Normal [facility] Comment on above: Performed By: #### C KAREL, BMP ####[address] [phone] GFR/1.73 sq M predicted among non-blacks MDRD (S/P/Bld) [Vol rate/Area] 59 . Normal [facility] Comment on above: Result Comment: eGFR [...] GFR. Performed By: #### C KAREL, BMP ####[facility] [place], [place] [phone] Glucose [Mass/Vol] 117 mg/dL High 74-99 [facility] Comment on above: Result Comment: The [place] Diabetes Association (ADA) provides guidance for cutoff [...] Standards of Medical Care in Diabetes 2016, [place] [employer]. Diabetes Care. 2016.39(Suppl 1). Performed By: #### C KAREL, BMP ####[place] [address], [place] [phone] Potassium [Moles/Vol] 4.0 mmol/L Normal 3.7-5.1 [facility] Comment on above: Performed By: #### C KAREL, BMP ####[address], [place] [phone] Sodium [Moles/Vol] 138 mmol/L Normal 136-144 [facility] Comment on above: Performed By: #### C KAREL, BMP ####[place] [address], [place] [phone] Urea nitrogen [Mass/Vol] 15 mg/dL Normal 9-24 [facility] Comment on above: Performed By: #### C DARRYLF, BMP ####[address] [place], [place] [phone] CBC and Differentialon 12-24 Abs Baso 0.06 k/uL Normal <0.11 [facility] Comment on above: Performed By: #### C BCKATLYNF, BMP ####[place] [address] [place], [place] [phone] Abs [place] 1.82 k/uL High <0.87 [facility] Comment on above: Performed By: #### C BCDIF, BMP ####[place] [address] [place], [place] [phone] Abs Neut 13.61 k/uL High 1.45-7.50 [facility] Comment on above: Performed By: #### C BCDIF, BMP ####[place] [address] [place], [place] [phone] Absolute nRBC <0.01 Normal <0.01 [facility] Comment on above: Performed By: #### C BCDIF, BMP ####[place] [address] [place] [phone] Basophils/100 WBC (Bld) 0.4 % Normal [facility] Comment on above: Performed By: #### C BCDIF, BMP ####[place] [address] [place] [phone] DTYPE Auto Diff Normal [facility] Comment on above: Performed By: #### C BCDIF, BMP ####[place] [address] [place] [phone] Eosinophils (Bld) [#/Vol] 0.03 10*3/uL Normal <0.46 [facility] Comment on above: Performed By: #### C BCDIF, BMP ####[place] [address] [place] [phone] Eosinophils/100 WBC (Bld) 0.2 % Normal [facility] Comment on above: Performed By: #### C BCDIF, BMP ####[place] [address] [place] [phone] Erythrocyte distribution width (RBC) [Ratio] 13.7 % Normal 11.5-15.0 [facility] Comment on above: Performed By: #### C BCDIF, BMP ####[place] [address] [place] [phone] Hematocrit (Bld) [Volume fraction] 43.5 % Normal 39.0-51.0 [facility] Comment on above: Performed By: #### C BCDIF, BMP ####[place] [address] [place] [phone] Hemoglobin (Bld) [Mass/Vol] 14.5 g/dL Normal 13.0-17.0 [facility] Comment on above: Performed By: #### C BCDIF, BMP ####[place] [address] [place], [place] [phone] Lymphocytes (Bld) [#/Vol] 1.16 10*3/uL Normal 1.00-4.00 [facility] Comment on above: Performed By: #### C BCKRYSTAL, BMP ####[place] [address] [place], [place] [phone] Lymphocytes/100 WBC (Bld) 7.0 % Normal [facility] Comment on above: Performed By: #### C BCKRYSTAL, BMP ####[place] [address] [place], [place] [phone] MCH (RBC) [Entitic mass] 29.3 pG Normal 26.0-34.0 [facility] Comment on above: Performed By: #### C BCKRYSTAL, BMP ####[place] [address] [place], [place] [phone] MCHC (RBC) [Mass/Vol] 33.3 g/dL Normal 30.5-36.0 [facility] Comment on above: Performed By: #### C BCKRYSTAL BMP ####[place] [address] [place], [place] [phone] MCV (RBC) [Entitic vol] 87.9 fL Normal 80.0-100.0 [facility] Comment on above: Performed By: #### C BCDIF, BMP ####[place] [address] [place], [place] [phone] Monocytes/100 WBC (Bld) 10.9 % Normal [facility] Comment on above: Performed By: #### C BCDILinda, BMP ####[place] [address] [place], [place] [phone] Neutrophils/100 WBC (Bld) 81.5 % Normal [facility] Comment on above: Result Comment: Diff erential confirmed by visual scan of peripheral blood smear slide. Performed By: #### C BCKRYSTAL, BMP ####[facility] [place], [place] [phone] NRBCs 0.0 /100 WBC Normal 0 [facility] Comment on above: Performed By: #### C BCDIF, BMP ####[facility] [place], [place] [phone] Platelet mean volume (Bld) [Entitic vol] 9.6 fL Normal 9.0-12.7 [facility] Comment on above: Performed By: #### C BCDIF, BMP ####[place] [address] [place], [place] [phone] Platelets (Bld) [#/Vol] 278 10*3/uL Normal 150-400 [facility] Comment on above: Performed By: #### C BCKATLYNF, BMP ####[place] [address], [place] [phone] RBC (Bld) [#/Vol] 4.95 10*6/uL Normal 4.20-6.00 [facility] Comment on above: Performed By: #### C BCKATLYNF, BMP ####[facility], [place] [phone] WBC (Bld) [#/Vol] 16.68 10*3/uL High 3.70-11.00 [facility] Comment on above: Performed By: #### C BCDIF, BMP ####[facility] [place], [place] [phone] PROGRESSon 12-24-2018 PROGRESS HNO ID: [id number] Author: Clarence Schmidt Service: Urology Author Type: Resident Type: Progress Notes Filed: 12/24/2018 10:00 AM Note Text: [facility] UROLOGY PROGRESS NOTE Name: Clarence Flores Bed: [id number]/[id number] Date: December 24, 2018 After Hours [facility] Service Pager: [phone] ASSESSMENT AND PLAN Clarence Flores is a [...] Imaging n/a Clarence Schmidt MD Personal Pager: [phone] For weekend or after hours issues [place] [phone] Normal [facility] Basic Metabolic Panlon 12-23 Anion gap [Moles/Vol] 14 mmol/L Normal 9-18 [facility] Comment on above: Performed By: #### C BCDIF, BMP ####[address] [phone] Calcium [Mass/Vol] 8.7 mg/dL Normal 8.5-10.2 [facility] Comment on above: Performed By: #### C BCDIF, BMP ####[facility], [place] [phone] Chloride [Moles/Vol] 102 mmol/L Normal 97-105 [facility] Comment on above: Performed By: #### C BCDIF, BMP ####[facility], [place] [phone] CO2 [Moles/Vol] 21 mmol/L Low 22-30 [facility] Comment on above: Performed By: #### C BCDIF, BMP ####[facility] [place], [place] [phone] Creatinine [Mass/Vol] 1.31 mg/dL High 0.73-1.22 [facility] Comment on above: Performed By: #### C BCDIF, BMP ####[place] [address] [place], [place] [phone] eGFR- Amer. >60 Normal [facility] Comment on above: Performed By: #### C KAREL, NIRALI ####[facility], [place] [phone] GFR/1.73 sq M predicted among non-blacks MDRD (S/P/Bld) [Vol rate/Area] 57 . Normal [facility] Comment on above: Result Comment: eGFR [...] GFR. Performed By: #### C KAREL, NIRALI ####[facility] [place], [place] [phone] Glucose [Mass/Vol] 121 mg/dL High 74-99 [facility] Comment on above: Result Comment: The [place] Diabetes [employer] (ADA) provides guidance for cutoff [...] Standards of Medical Care in Diabetes 2016, [place] [employer]. Diabetes Care. 2016.39(Suppl 1). Performed By: #### C KAREL, NIRALI ####[facility] [place], [place] [phone] Potassium [Moles/Vol] 4.0 mmol/L Normal 3.7-5.1 [facility] Comment on above: Performed By: #### C DARRYLF, BMP ####[facility] [address] [place], [place] [phone] Sodium [Moles/Vol] 137 mmol/L Normal 136-144 [facility] Comment on above: Performed By: #### C BCDIF, BMP ####[facility] [address]Mel[place], [place] [phone] Urea nitrogen [Mass/Vol] 11 mg/dL Normal 9-24 [facility] Comment on above: Performed By: #### C BCDIF, BMP ####[facility] [address] [place], [place] [phone] CASE MGT INIT ROSARIOon 2018 CASE MGT INIT ROSARIO HNO ID: [id number] Author: Cornelius Diaz (Sw) Service: Care Management Author Type: Mold Burner Type: Care Mgt Initial Assessment Filed: 12/23/2018 4:27 PM Note Text: CARE MANAGEMENT: ASSESSMENT AND DISCHARGE PLAN SERVICE DATE: 12/23/2018 SERVICE TIME: 4:24 PM PRIMARY CARE PHYSICIAN: Shea Beach MD ADMISSION STATUS: Observation Needs Prior to Discharge: None;Ready for Discharge MEDICAL: 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 No Advance Directive: Current Advance Directive: Health Care Power of Top Case Assembler In Chart: Yes Up To Date and [...] None Has the Patient Been in a Intermediate Facility in the Past 30 days? No SOCIAL: Living Arrangement: Home Lives With: Son Financial Resources: Employed: [employer] Primary Contact: Extended Emergency Contact Information Primary [...] 0 I feel financially burdened by my udy-mr-gdnptj expenses for my prescription medication: Disagree completely [...] 2018 TIME: 4:24 PM PAGER/CONTACT #: Normal [facility] CBC and Differentialon 12-23 Abs Baso 0.03 k/uL Normal <0.11 [facility] Comment on above: Performed By: #### C BCDIF, NIRALI ####[facility] [address] [place], [place] [phone] Abs [place] 1.36 k/uL High <0.87 [facility] Comment on above: Performed By: #### C BCDIF, BMP ####[facility] [address] AveClevelandAustin, [place] [phone] Abs Neut 16.73 k/uL High 1.45-7.50 [facility] Comment on above: Performed By: #### C BCDIF, BMP ####[facility] AveClevelandVirgin[place] [phone] Absolute nRBC <0.01 Normal <0.01 [facility] Comment on above: Performed By: #### C BCDIF, BMP ####[place] [address] AveClevelT[place] [phone] Basophils/100 WBC (Bld) 0.2 % Normal [facility] Comment on above: Performed By: #### C BCDIF, BMP ####[place] [address]CJo[address] [place] [phone] DTYPE Auto Diff Normal [facility] Comment on above: Performed By: #### C BCDIF, BMP ####[facility] AveClevelTina [place] [phone] Eosinophils (Bld) [#/Vol] 10*3/uL Normal <0.46 [facility] Comment on above: Performed By: #### C BCDIF, BMP ####[facility] AveClevelT[address] [place] [phone] Eosinophils/100 WBC (Bld) 0.0 % Normal [facility] Comment on above: Performed By: #### C BCDIF, BMP ####[facility] AveClevelT[address] [place] [phone] Erythrocyte distribution width (RBC) [Ratio] 13.3 % Normal 11.5-15.0 [facility] Comment on above: Performed By: #### C BCDIF, BMP ####[facility]ClevelT[address] [place] [phone] Hematocrit (Bld) [Volume fraction] 46.4 % Normal 39.0-51.0 [facility] Comment on above: Performed By: #### C BCDIF, BMP ####[place] [address] [place], [place] [phone] Hemoglobin (Bld) [Mass/Vol] 15.3 g/dL Normal 13.0-17.0 [facility] Comment on above: Performed By: #### C BCDIF, BMP ####[place] [address] [place], [place] [phone] Lymphocytes (Bld) [#/Vol] 0.94 10*3/uL Low 1.00-4.00 [facility] Comment on above: Performed By: #### C BCDIF, BMP ####[place] [address] [place], [place] [phone] Lymphocytes/100 WBC (Bld) 4.9 % Normal [facility] Comment on above: Performed By: #### C BCDIF, BMP ####[place] [address] [place], [place] [phone] MCH (RBC) [Entitic mass] 28.2 pG Normal 26.0-34.0 [facility] Comment on above: Performed By: #### C BCDIF, BMP ####[place] [address] [place], [place] [phone] MCHC (RBC) [Mass/Vol] 33.0 g/dL Normal 30.5-36.0 [facility] Comment on above: Performed By: #### C BCDIF, BMP ####[place] [address] [place], [place] [phone] MCV (RBC) [Entitic vol] 85.5 fL Normal 80.0-100.0 [facility] Comment on above: Performed By: #### C BCDIF, BMP ####[place] [address] [place], [place] [phone] Monocytes/100 WBC (Bld) 7.1 % Normal [facility] Comment on above: Performed By: #### C BCDIF, BMP ####[place] [address]ClevelOt[place], [place] [phone] Neutrophils/100 WBC (Bld) 87.8 % Normal [facility] Comment on above: Performed By: #### C BCDIF, BMP ####[place] [address] [place], [place] [phone] NRBCs 0.0 /100 WBC Normal 0 [facility] Comment on above: Performed By: #### C BCDIF, BMP ####[place] [address] [place], [place] [phone] Platelet mean volume (Bld) [Entitic vol] 9.5 fL Normal 9.0-12.7 [facility] Comment on above: Performed By: #### C BCDIF, BMP ####[place] [address] [place], [place] [phone] Platelets (Bld) [#/Vol] 315 10*3/uL Normal 150-400 [facility] Comment on above: Performed By: #### C BCDIF, BMP ####[place] [address] [place], [place] [phone] RBC (Bld) [#/Vol] 5.43 10*6/uL Normal 4.20-6.00 [facility] Comment on above: Performed By: #### C BCDIF, BMP ####[place] [address], [place] [phone] WBC (Bld) [#/Vol] 19.06 10*3/uL High 3.70-11.00 [facility] Comment on above: Performed By: #### C BCDIF, BMP ####[place] [address] [place], [place] [phone] PROGRESSon 12-23-2018 PROGRESS HNO ID: [id number] Author: Clarence (Breana) Roxana Service: Urology Author Type: Resident Type: Progress Notes Filed: 12/23/2018 8:40 AM Note Text: [facility] UROLOGY PROGRESS NOTE Name: Clarence Flores Bed: G090 [id number]/[id number] Date: December 23, 2018 After Hours [facility] [place] [facility] Pager: [phone] ASSESSMENT AND PLAN Clarence Flores is a [...] Imaging n/a Clarence Schmidt MD Personal Pager: [phone] For weekend or after hours issues [place] [phone] Normal [facility] ANES Ferny 12-22-2018 ANES POST HNO ID: [id number] Author: Salvatore Lacey Service: Anesthesiology Author Type: [...] 22, 2018 TIME: 12:16 PM PAGER/CONTACT #: [phone] Normal [facility] Basic Metabolic Panlon 12-22 Anion gap [Moles/Vol] 10 mmol/L Normal 9-18 [facility] Comment on above: Performed By: #### C BCDIF, BMP ####[facility], [place] [phone] Calcium [Mass/Vol] 8.0 mg/dL Low 8.5-10.2 [facility] Comment on above: Performed By: #### C BCDIF, BMP ####[facility], [place] [phone] Chloride [Moles/Vol] 105 mmol/L Normal 97-105 [facility] Comment on above: Performed By: #### C BCDIF, BMP ####[facility] [address]Mel[place], [place] [phone] CO2 [Moles/Vol] 23 mmol/L Normal 22-30 [facility] Comment on above: Performed By: #### C BCDIF, BMP ####[facility] [address], [place] [phone] Creatinine [Mass/Vol] 1.17 mg/dL Normal 0.73-1.22 [facility] Comment on above: Performed By: #### C BCDIF, BMP ####[facility], [place] [phone] eGFR- Amer. >60 Normal [facility] Comment on above: Performed By: #### C KAREL, BMP ####[facility] [place], [place] [phone] GFR/1.73 sq M predicted among non-blacks MDRD (S/P/Bld) [Vol rate/Area] mL/min/{1.73_m2} Normal [facility] Comment on above: Result Comment: eGFR [...] GFR. Performed By: #### C KAREL, BMP ####[facility] [place], [place] [phone] Glucose [Mass/Vol] 168 mg/dL High 74-99 [facility] Comment on above: Result Comment: The [place] Diabetes [employer] (ADA) provides guidance for cutoff [...] Standards of Medical Care in Diabetes 2016, [place] [employer]. Diabetes Care. 2016.39(Suppl 1). Performed By: #### C KAREL, BMP ####[facility] [place], [place] [phone] Potassium [Moles/Vol] 5.5 mmol/L High 3.7-5.1 [facility] Comment on above: Result Comment: Resu lts may be falsely increased due to interference by hemolysis. Suggest reorder as clinically indicated. Performed By: #### C BCDIF, BMP ####[place] [address] [place] [phone] Sodium [Moles/Vol] 138 mmol/L Normal 136-144 [facility] Comment on above: Performed By: #### C BCDIF, BMP ####[place] [address] [place] [phone] Urea nitrogen [Mass/Vol] 9 mg/dL Normal 9-24 [facility] Comment on above: Performed By: #### C BCDIF, BMP ####[place] [address] [place] [phone] CBC and Differentialon 12-22 Abs Baso 0.07 k/uL Normal <0.11 [facility] Comment on above: Performed By: #### C BCDIF, BMP ####[place] [address] [place] [phone] Abs [place] 0.89 k/uL High <0.87 [facility] Comment on above: Performed By: #### C BCDIF, BMP ####[place] [address] [place] [phone] Abs Neut 13.53 k/uL High 1.45-7.50 [facility] Comment on above: Performed By: #### C BCDIF, BMP ####[place] [address] [place] [phone] Absolute nRBC <0.01 Normal <0.01 [facility] Comment on above: Performed By: #### C BCDIF, BMP ####[place] [address] [place] [phone] Basophils/100 WBC (Bld) 0.4 % Normal [facility] Comment on above: Performed By: #### C BCDIF, BMP ####[place] [address] [place] [phone] DTYPE Auto Diff Normal [facility] Comment on above: Performed By: #### C BCDIF, BMP ####[place] [address] [place] [phone] Eosinophils (Bld) [#/Vol] 0.06 10*3/uL Normal <0.46 [facility] Comment on above: Performed By: #### C BCDIF, BMP ####[place] [address] [place] [phone] Eosinophils/100 WBC (Bld) 0.4 % Normal [facility] Comment on above: Performed By: #### C BCDIF, BMP ####[place] [address] [place] [phone] Erythrocyte distribution width (RBC) [Ratio] 13.6 % Normal 11.5-15.0 [facility] Comment on above: Performed By: #### C BCDIF, BMP ####[place] [address] [place] [phone] Hematocrit (Bld) [Volume fraction] 46.4 % Normal 39.0-51.0 [facility] Comment on above: Performed By: #### C BCDIF, BMP ####[place] [address]ClevelT[address] [place] [phone] Hemoglobin (Bld) [Mass/Vol] 15.4 g/dL Normal 13.0-17.0 [facility] Comment on above: Performed By: #### C BCDIF, BMP ####[place] [address] [place] [phone] Lymphocytes (Bld) [#/Vol] 1.09 10*3/uL Normal 1.00-4.00 [facility] Comment on above: Performed By: #### C BCDIF, BMP ####[place] [address] [place], [place] [phone] Lymphocytes/100 WBC (Bld) 7.0 % Normal [facility] Comment on above: Performed By: #### C BCDIF, BMP ####[place] [address] [place], [place] [phone] MCH (RBC) [Entitic mass] 28.7 pG Normal 26.0-34.0 [facility] Comment on above: Performed By: #### C BCDIF, BMP ####[place] [address] [address] [phone] MCHC (RBC) [Mass/Vol] 33.2 g/dL Normal 30.5-36.0 [facility] Comment on above: Performed By: #### C BCDIF, BMP ####[place] [address] [phone] MCV (RBC) [Entitic vol] 86.4 fL Normal 80.0-100.0 [facility] Comment on above: Performed By: #### C BCDIF, BMP ####[place] [address] [place], [place] [phone] Monocytes/100 WBC (Bld) 5.7 % Normal [facility] Comment on above: Performed By: #### C BCDIF, BMP ####[place] [address] [place], [place] [phone] Neutrophils/100 WBC (Bld) 86.5 % Normal [facility] Comment on above: Performed By: #### C BCDIF, BMP ####[place] [address] [place], [place] [phone] NRBCs 0.0 /100 WBC Normal 0 [facility] Comment on above: Performed By: #### C BCDIF, BMP ####[place] [address] [place], [place] [phone] Platelet mean volume (Bld) [Entitic vol] 9.8 fL Normal 9.0-12.7 [facility] Comment on above: Performed By: #### C BCDIF, BMP ####[address] [place], [place] [phone] Platelets (Bld) [#/Vol] 263 10*3/uL Normal 150-400 [facility] Comment on above: Performed By: #### C BCDIF, BMP ####[address] [phone] RBC (Bld) [#/Vol] 5.37 10*6/uL Normal 4.20-6.00 [facility] Comment on above: Performed By: #### C BCDIF, BMP ####[address] [phone] WBC (Bld) [#/Vol] 15.64 10*3/uL High 3.70-11.00 [facility] Comment on above: Performed By: #### C BCDIF, BMP ####[address] [phone] CNCOon 12-22-2018 CNCO Letter Text [facility] NURSING PROGon 12-22-2018 NURSING PROG HNO ID: [id number] Author: Yoly De Jesus RN Service: Nursing [...] Jesus RN MSN In Department: HOSP [facility] Normal [facility] OPERATIVE NOon 12-22-2018 OPERATIVE NO HNO ID: [id number] Author: Cyrus Justice Service: Urology Author Type: Resident Type: Operative Report Filed: 12/22/2018 11:07 AM Note Text: -- Attestation signed by Maico Ang at 12/22/2018 11:58 AM . -- OPERATIVE/PROCEDURE REPORT LOG ID: [id number] Surgery/Procedure Date: 12/22/2018 Incision/Procedure Start Time: 8:19 AM Incision Close/Procedure End Time: 10:48 AM Surgeon(s)/Proceduralist(s ) and Liberal Arts Dean(s): Surgeon(s) and Role: * Maico Ang - [...] 8-mm robotic ports and one 12-mm airseal urgent care physician assistant port were placed. The robot was [...] under vision. We then extended our 12mm urgent care physician assistant port site cephalad and extracted our specimen through this. We then mobilized his umbilical hernia sac. Herniated mesentery was delivered out of the hernia sac and sac dissected completely free off the skin. The fascia was then closed using interrupted [id number] 0-prolene sutures. 3-0 vicryl was used to [...] 1.left renal neoplasm Tissue Kidney taken by [facility] Pathology Routine 2.hernia sac Tissue taken by [facility] Pathology Routine Implantable Devices: None Drains: 10-flat SHELBY drain and jacques catheter (18-georgian coude with 10cc balloon) Complications: None Accidental [...] 22, 2018 TIME: 10:48 AM PAGER/CONTACT #: [phone] [facility] PROGRESSon 12-22-2018 PROGRESS HNO ID: [id number] Author: Clarence Schmidt Service: Urology Author Type: Resident Type: Progress Notes Filed: 12/22/2018 4:14 PM Note Text: [facility] UROLOGY PROGRESS NOTE Name: Clarence Flores Bed: [id number] Date: December 22, 2018 After Hours [facility] Urology Service Pager: [phone] ASSESSMENT AND PLAN Clarence Flores is a [...] voluntary guarded without peritonitic signs, comfortable at [facility] Wound: Binder in place, dressing c/d/i : [...] Imaging n/a Clarence Schmidt MD Personal Pager: [phone] For weekend or after hours issues [place] [phone] Normal [facility] PROGRESS HNO ID: [id number] Author: Valeria (Rn) FIORELLA Moreno Service: ? Author Type: Registered Nurse Type: Progress Notes Filed: 12/22/2018 2:26 PM Note Text: Admission/Transfer Note PATIENT NAME: Clarence Flores Patient admitted from PACU via stretcher in stable condition. Actions taken: Patient oriented to room, call light function, prescribed activities, Patient rights and Quiet at night. This note was completed by: Valeria Moreno RN [facility] Potassiumon 12-22-2018 Potassium [Moles/Vol] 4.2 mmol/L Normal 3.7-5.1 [facility] Comment on above: Performed By: #### K 1 ####[facility] [address] [place], [place] [phone] SURGICAL PATHOLOGYon 019 SURGICAL PATHOLOGY Specimen originated from [facility] Specimen #: [id number] Submitting Physician: MAICO ANG ([id number]) FINAL DIAGNOSIS [...] Pathologic Findings in Nonneoplastic Kidney: Insufficient tissue Chairperson Anesthesiology Tumor Block: Specify: A1 ---- Meño Hamilton [...] appear to extend beyond the capsular surface. Chairperson Anesthesiology sections are submitted as follows: A1-A3 mass with renal sinus/parenchymal margin, A4-A5 mass with capsular surface. WE/glw 12/22/2018 B. Received fresh labeled hernia sac is a segment of cote pink fibromembranous soft tissue measuring 4.7 x 1.9 x 0.6 cm. No nodularity or induration is identified. Chairperson Anesthesiology sections are submitted in formalin in cassette B1. VINICIO/rw 12/22/2018 Gross examination performed at [place] [address] [place] [address] Date of Report: 12/24/2018 Date of Procedure: 12/22/2018 Date of Receipt: 12/22/2018 Submitted by: MAICO ANG (Q10) Location: G90 Diagnostic interpretation performed at [place] [address] [address] [place] [address]. [place] Number: [id number] Normal [facility] APTTon 12-17-2018 aPTT Coag (Bld) [Time] 28.8 s Normal 23.0-32.4 [facility] Comment on above: Result Comment: Unfr actionated [...] laboratory APTT reagent in use throughout the [facility]. Performed By: #### P T, PTT, CBC, CMP #### [place] [address] [place] [address] CBCon 12-17-2018 Absolute nRBC <0.01 Normal <0.01 [facility] Comment on above: Performed By: #### P T, PTT, CBC, CMP #### [place] [address] [place], [place] [address] Erythrocyte distribution width (RBC) [Ratio] 13.2 % Normal 11.5-15.0 [facility] Comment on above: Performed By: #### P T, PTT, CBC, CMP #### [place] [address] [place], [place] [address] Hematocrit (Bld) [Volume fraction] 46.7 % Normal 39.0-51.0 [facility] Comment on above: Performed By: #### P T, PTT, CBC, CMP #### [place] [address] Hemoglobin (Bld) [Mass/Vol] 15.7 g/dL Normal 13.0-17.0 [facility] Comment on above: Performed By: #### P T, PTT, CBC, CMP #### [place] [address] MCH (RBC) [Entitic mass] 28.6 pG Normal 26.0-34.0 [facility] Comment on above: Performed By: #### P T, PTT, CBC, CMP #### [place] [address] MCHC (RBC) [Mass/Vol] 33.6 g/dL Normal 30.5-36.0 [facility] Comment on above: Performed By: #### P T, PTT, CBC, CMP #### [place] [address] MCV (RBC) [Entitic vol] 85.2 fL Normal 80.0-100.0 [facility] Comment on above: Performed By: #### P T, PTT, CBC, CMP #### [address] [address] Platelet mean volume (Bld) [Entitic vol] 9.9 fL Normal 9.0-12.7 [facility] Comment on above: Performed By: #### P T, PTT, CBC, CMP #### [facility] [address] [place] [address] Platelets (Bld) [#/Vol] 322 10*3/uL Normal 150-400 [facility] Comment on above: Performed By: #### P T, PTT, CBC, CMP #### [place] [address] RBC (Bld) [#/Vol] 5.48 10*6/uL Normal 4.20-6.00 [facility] Comment on above: Performed By: #### P T, PTT, CBC, CMP #### [place] [address] [place] [address] WBC (Bld) [#/Vol] 9.33 10*3/uL Normal 3.70-11.00 [facility] Comment on above: Performed By: #### P T, PTT, CBC, CMP #### [place] [id number] ELISEOVbe 12-17-2018 CNOV Office Visit (PSSCMN ) -- CLARENCE FLORES ([id number]) 1960 M Date Time Provider Department 12/17/18 12:00 PM [facility] PSSCMN During your visit today, [...] PAGER/CONTACT #: addendum labs and ekg to [facility]; Aimee Romero RN Lab Value Units [...] 8:41:34 AM ? Referring Provider: MAICO ANG [[id number]] Allergies As of Date: 12/17/2018 Noted Allergy [...] Chart Close Cosign Accepted by: PERCY BERTRAND MD[[id number]] Chart Close Cosign Accepted on: FriDec 17, 2018 12:54 PM Normal [facility] CNOV Office Visit (UROLMN ) -- CLARENCE FLORES ([id number]) 1960 M Date Time Provider Department 12/17/18 9:15 AM JESSICA HERRERA ([facility]) UROLMJenny During your visit today, we recorded the following information about you: Pulse Blood pressure Weight Height 64/minute 169/96 119.8 kg 1.676 m Jessica Herrera CNP 12/17/2018 9:57 AM Signed UROLOGY SURGICAL HANDP SERVICE DATE: 12/17/2018 REFERRING PROVIDER: Maico Ang MD [address] [facility] [address] PCP: Shea Beach MD GENDER: SUBJECTIVE CHIEF [...] problems. 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 [...] 16, 2018 TIME: 12:38 PM PAGER/CONTACT #: [facility] PRE-OP [...] CNP Electronically signed Referring Provider: MAICO ANG [[id number]] Allergies As of Date: 12/17/2018 Noted Allergy [...] by JESSICA HERRERA CNP on 12/17/18 Normal [facility] Comp Metabolic Panelon 12-17 Albumin [Mass/Vol] 4.3 g/dL Normal 3.9-4.9 [facility] Comment on above: Performed By: #### P T, PTT, CBC, CMP ####[address] [phone] ALP [Catalytic activity/Vol] 56 U/L Normal 38-113 [facility] Comment on above: Performed By: #### P T, PTT, CBC, CMP ####[address] [phone] ALT [Catalytic activity/Vol] 22 U/L Normal 10-54 [facility] Comment on above: Performed By: #### P T, PTT, CBC, CMP ####[address] [phone] Anion gap [Moles/Vol] 13 mmol/L Normal 9-18 [facility] Comment on above: Performed By: #### P T, PTT, CBC, CMP ####[address] [phone] AST [Catalytic activity/Vol] 25 U/L Normal 14-40 [facility] Comment on above: Performed By: #### P T, PTT, CBC, CMP ####[address] [phone] Bilirubin [Mass/Vol] 0.4 mg/dL Normal 0.2-1.3 [facility] Comment on above: Performed By: #### P T, PTT, CBC, CMP ####[address] [phone] Calcium [Mass/Vol] 9.3 mg/dL Normal 8.5-10.2 [facility] Comment on above: Performed By: #### P T, PTT, CBC, CMP ####[place] [phone] Chloride [Moles/Vol] 105 mmol/L Normal 97-105 [facility] Comment on above: Performed By: #### P T, PTT, CBC, CMP ####[place] [phone] CO2 [Moles/Vol] 21 mmol/L Low 22-30 [facility] Comment on above: Performed By: #### P T, PTT, CBC, CMP ####[place] [phone] Creatinine [Mass/Vol] 1.20 mg/dL Normal 0.73-1.22 [facility] Comment on above: Performed By: #### P T, PTT, CBC, CMP ####[address] [phone] eGFR- Amer. >60 Normal [facility] Comment on above: Performed By: #### P T, PTT, CBC, CMP ####[place] [phone] GFR/1.73 sq M predicted among non-blacks MDRD (S/P/Bld) [Vol rate/Area] mL/min/{1.73_m2} Normal [facility] Comment on above: Result Comment: eGFR [...] By: #### P T, PTT, CBC, CMP ####[facility] [place] [address] [phone] Glucose [Mass/Vol] 105 mg/dL High 74-99 [facility] Comment on above: Result Comment: The [place] Diabetes Association (ADA) provides guidance for cutoff [...] Standards of Medical Care in Diabetes 2016, [place] [employer]. Diabetes Care. 2016.39(Suppl 1). Performed By: #### P T, PTT, CBC, CMP ####[facility] [place] [address] [phone] Potassium [Moles/Vol] 4.0 mmol/L Normal 3.7-5.1 [facility] Comment on above: Performed By: #### P T, PTT, CBC, CMP ####[address] [phone] Protein [Mass/Vol] 7.1 g/dL Normal 6.3-8.0 [facility] Comment on above: Performed By: #### P T, PTT, CBC, CMP ####[address], [place] [phone] Sodium [Moles/Vol] 139 mmol/L Normal 136-144 [facility] Comment on above: Performed By: #### P T, PTT, CBC, CMP ####[place] [address] [place], [place] [phone] Urea nitrogen [Mass/Vol] 13 mg/dL Normal 9-24 [facility] Comment on above: Performed By: #### P T, PTT, CBC, CMP ####[place] [address] [place], [place] [phone] Confirm Blood Typeon 019 ABO/RH(D) Positive Normal [facility] Comment on above: Performed By: #### C ONABO ####[facility] [place], [place] [phone] ECG COMPLETEon 12-17-2018 ECG COMPLETE NAME : CLARENCE FLORES PID : [id number] : 1960 Gender : Male Race : ORD : [id number] Procedure Date : Dec 17 2018 10:39:05 Edit Date : Dec 18 2018 08:41:40 Diagnosis:NORMAL SINUS RHYTHM NORMAL ECG Confirmed by TARIQ DRUMMOND MD (65) on 12/18/2018 8:41:34 AM Ventricular Rate : 63 BPM Atrial Rate : 63 BPM P-R Interval : 160 ms QRS Duration : 94 ms Q-T Interval : 420 ms QTC Calculation(Bazett) : 429 ms P [place] : 36 degrees R [place] : 69 degrees T [place] : 80 degrees Test Reason : Location : 119 : A17 A17 Overread By : TARIQ DRUMMOND MD Edited By : TARIQ DRUMMOND MD Referred By : MAICO ANG Acquired by : PARIS ESTEVES [facility] PROGRESSon 12-17-2018 PROGRESS HNO ID: [id number] Author: Aimee SandersRn) Linda Service: ? Author [...] PAGER/CONTACT #: addendum labs and ekg to [facility]; Aimee Romero RN Lab Value Units [...] (65) on 12/18/2018 8:41:34 AM ? Normal [facility] Protimeon 12-17-2018 PT Coag (PPP) [Time] 10.8 s Normal 9.7-13.0 [facility] Comment on above: Performed By: #### P T, PTT, CBC, CMP #### [facility] [employer] [address] [place], [place] [address] PT Coag (PPP) [Time] 1.0 s Normal 0.9-1.3 [facility] Comment on above: Result Comment: Ytra min K Antagonist (VKA) Therapeutic Range: INR 2 to 3 (Target INR of 2.5) Note: For patients treated with VKA drugs, such as warfarin, the [place] [employer]icians 2012 Guideline recommends [...] Chest 2012, 141:7S-47S Pablito RA, et al. [facility] 2017, 70: 252-289 Performed By: #### P T, PTT, CBC, CMP #### [facility] [employer] [address] [place], [place] [address] Type and SCR (30D)on 019 ABO/RH(D) Positive Normal [facility] Comment on above: Performed By: #### T SCR30 ####[facility] [address], [place] [phone] Flavio 12-16-2018 MITCH Patient Outreach (UR OLMN) -- CLARENCE FLORES ([id number]) 1960 M Date Time Provider Department 12/16/18 JESSICA HERRERA) FRIDA During your visit today, we recorded the following information about you: Allergies As of Date: 12/16/2018 Noted Allergy Reaction NITROGLYCERIN 11/26/2018 14 - Other: See Comments Date Reviewed: 11/26/2018 Reviewed by: Monica Shah - Fully Assessed Visit Diagnosis:Screening for genitourinary condition [Z13.89] Order(s):UA CHEMSTRIP ONLY [SQUA] Order #: [id number] Prescriptions as of 12/16/2018 Sig: OXYCODONE 5 [...] Left renal mass [N28.89] Encounter Status:Closed by UniYu, PRODUSER on 12/31/18 Normal [facility] HISTORY PHYSICALon 9 HISTORY PHYSICAL HNO ID: [id number] Author: Jessica Herrera Service: ? Author Type: Nurse Practitioner Type: HANDP Filed: 12/17/2018 9:57 AM Note Text: UROLOGY SURGICAL HANDP SERVICE DATE: 12/17/2018 REFERRING PROVIDER: Maico Ang MD [address] [facility] [address] PCP: Shea Beach MD GENDER: SUBJECTIVE CHIEF [...] problems. 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 [...] 16, 2018 TIME: 12:38 PM PAGER/CONTACT #: [facility] PRE-OP NOTE Clarence Flores is a 58 year old male. Pre-op Date: December 16, 2018 Date of Procedure: 12/22/2018 Procedure/Surgery: Robotic L partial Nx Diagnosis: L renal mass Primary Surgeon: MD Allie, [facility] Score: tbd BP 169/96 (BP Site: [...] EKG. Jessica Herrera CNP Electronically signed Normal [facility] CNOVon 11-26-2018 CNOV Office Visit (UROLMN ) -- CLARENCE FLORES ([id number]) 1960 M Date Time Provider Department 11/26/18 9:00 AM MAICO ANG During your visit today, we recorded the following information about you: Pulse Blood pressure Weight Height 67/minute 165/98 118 kg 1.676 m Maico Ang MD 11/29/2018 6:01 AM Signed [facility] NEW PATIENT HISTORY AND PHYSICAL EXAM PATIENT INFO: Clarence Flores 58 year old REFERRING M.D.: Damien Sales MD [address] [facility] [address] CHIEF COMPLAINT: left renal mass 58 y/o [...] file Gets together: Not on file Attends congregation service: Not on file Active member of [...] PLAN: Per Staff Benton Dillon PA-C Pager [phone] Office [phone] I saw and evaluated the patient; the history and exam were reviewed with the PA/resident and confirmed by me; and the plan is outlined below. healthy 58 yr obese male with L lower pole [address] reviewed DW pt and family rec attempt RPNx they agree to proceed, will schedule Maico Ang MD Referring Provider: DAMIEN SALES [[id number]] Allergies As of Date: 11/26/2018 Noted Allergy [...] Status:Closed by MAICO ANG MD on 11/29/18 [facility] HOSP 11-26-2018 HOSP Patient:Clarence Flores MRN: [...] % 12/17/2018 51.0 39.0 Progress Notes ([facility]): Aimee Romero RN 12/21/2018 9:03 [...] PAGER/CONTACT #: addendum labs and ekg to [facility]; Aimee Romero RN Lab Value Units [...] Maico Ang MD 11/29/2018 6:01 AM Signed [facility] NEW PATIENT HISTORY AND PHYSICAL EXAM PATIENT INFO: Clarence Flores 58 year old REFERRING M.D.: Damien Sales MD [address] [facility] [address] CHIEF COMPLAINT: left renal mass 58 y/o [...] file Gets together: Not on file Attends congregation service: Not on file Active member of [...] PLAN: Per Staff Benton Dillon PA-C Pager [phone] Office [phone] I saw and evaluated the patient; the history and exam were reviewed with the PA/resident and confirmed by me; and the plan is outlined below. healthy 58 yr obese male with L lower pole [address] reviewed DW pt and family rec attempt RPNx they agree to proceed, will schedule Maico Ang MD Previous Version Normal [facility] PROGRESSon 11-26-2018 PROGRESS HNO ID: [id number] Author: Maico Ang Service: ? Author Type: Physician Type: Progress Notes Filed: 11/29/2018 6:01 AM Note Text: [facility] NEW PATIENT HISTORY AND PHYSICAL EXAM PATIENT INFO: Clarence Flores 58 year old REFERRING M.D.: Damien Sales MD [address] [facility] [address] CHIEF COMPLAINT: left renal mass 58 y/o [...] file Gets together: Not on file Attends congregation service: Not on file Active member of [...] PLAN: Per Staff Benton Dillon PA-C Pager [phone] Office [phone] I saw and evaluated the patient; the history and exam were reviewed with the PA/resident and confirmed by me; and the plan is outlined below. healthy 58 yr obese male with L lower pole [address] reviewed DW pt and family rec attempt RPNx they agree to proceed, will schedule Maico Ang MD Normal [facility] OT-CT CHEST W CON IMPORTon 1 OT-CT CHEST W CON IMPORT Images were obtained outside of [facility] [id number] Normal [facility] OT-CT ABDOMEN WO/W CON IMPOR Ton 11-05-2018 OT-CT ABDOMEN WO/W CON IMPORT Images were obtained outside of [facility] [id number] Normal [facility] CT-CT ABD/PELVIS WO CON IMPO RTon 10-05-2018 CT-CT ABD/PELVIS WO CON IMPORT Images were obtained outside of [facility] [id number] Normal [facility] Vital Signs Date Time Vital Sign Value Performing Clinician Facility 02-13-2024 15:36-0500 Body height 167.6 cm Leon [employer] DO Work Phone: [facility] 02-13-2024 15:36-0500 Body mass index (BMI) [Ratio] 34.7 kg/m2 Leon [employer] DO Work Phone: [facility] 02-13-2024 15:36-0500 Body weight 97.52 kg Leon [employer] DO Work Phone: [facility] 01-30-2024 15:19-0500 Body height 167.6 cm Leon [employer] DO Work Phone: [facility] [employer] 01-30-2024 15:19-0500 Body mass index (BMI) [Ratio] 34.7 kg/m2 Leon BiedenMezzobit DO Work Phone: [facility] [employer] 01-30-2024 15:19-0500 Body weight 97.52 kg Leon [employer] DO Work Phone: [facility] 01-12-2024 15:53-0500 Body mass index (BMI) [Ratio] 36.96 kg/m2 Jany Navarrete MD Work Phone: [facility] 01-12-2024 15:53-0500 Body weight 103.87 kg Jany Navarrete MD Work Phone: [facility] 12-17-2023 14:31-0500 Body height 167.6 cm Jany Navarrete MD Work Phone: [facility] 12-17-2023 14:31-0500 Body mass index (BMI) [Ratio] 35.83 kg/m2 Jany Navarrete MD Work Phone: [facility] 12-17-2023 14:31-0500 Body weight 100.7 kg Jany Navarrete MD Work Phone: [facility] 11-12-2023 14:50-0400 Body height 167.6 cm Rachel Mckeon [employer] SAL[employer] PROFESSIONAL Work Phone: [facility] 11-12-2023 14:50-0400 Body mass index (BMI) [Ratio] 35.67 kg/m2 Rachel Fosterr [employer] SAL[employer] PROFESSIONAL Work Phone: [facility] 11-12-2023 14:50-0400 Body weight 100.25 kg Rachel Fosterr [employer] SAL[employer] PROFESSIONAL Work Phone: [facility] 11-12-2023 14:50-0400 Diastolic blood pressure 72 mm[Hg] Rachel Fosterr [employer] SAL[employer] PROFESSIONAL Work Phone: [facility] 11-12-2023 14:50-0400 Heart rate 69 /min Rachel Ambermor [employer] SALES PROFESSIONAL Work Phone: [facility] 11-12-2023 14:50-0400 SaO2% (BldA) [Mass fraction] 95 % Rachel Ambermor [employer]AIL SALES PROFESSIONAL Work Phone: [facility] 11-12-2023 14:50-0400 Systolic blood pressure 138 mm[Hg] Rachel Fosterr RETAIL SALES PROFESSIONAL Work Phone: [facility] 10-31-2023 09:06-0400 Body height 167.6 cm Mike Morelos DO Work Phone: [facility] 10-31-2023 09:06-0400 Body mass index (BMI) [Ratio] 34.7 kg/m2 Mike Morelos DO Work Phone: [facility] 10-31-2023 09:06-0400 Body weight 97.52 kg Mike Morelos DO Work Phone: [facility] 10-31-2023 09:06-0400 Diastolic blood pressure 76 mm[Hg] Mike Morelos DO Work Phone: [facility] 10-31-2023 09:06-0400 Heart rate 64 /min Mike Morelos DO Work Phone: [facility] 10-31-2023 09:06-0400 Systolic blood pressure 116 mm[Hg] Mike Morelos DO Work Phone: [facility] 07-14-2023 14:01-0400 Blood Pressure Location Tariq NILL [facility] [facility] [place] 07-14-2023 14:01-0400 Diastolic blood pressure 72 mm[Hg] Tariq NILL [facility] [place] 07-14-2023 14:01-0400 Heart rate 74 /min Tariq NILL [facility] [place] 07-14-2023 14:01-0400 Respiratory rate 16 /min Tariq NILL [facility] [place] 07-14-2023 14:01-0400 Systolic blood pressure 112 mm[Hg] Tariq NILL [facility] [place] 04-23-2023 15:37-0400 Body mass index (BMI) [Ratio] 40.84 kg/m2 Andra MAYES Work Phone: [facility] 04-23-2023 15:37-0400 Body weight 114.76 kg Andra Ramirez ART COORDINATOR-BURIAL NEEDS SALESPERSON Work Phone: [facility] 04-23-2023 15:37-0400 Diastolic blood pressure 70 mm[Hg] Andra Ramirez ART COORDINATOR-BURIAL NEEDS SALESPERSON Work Phone: [facility] 04-23-2023 15:37-0400 Heart rate 82 /min Andra Ramirez ART COORDINATOR-BURIAL NEEDS SALESPERSON Work Phone: [facility] 04-23-2023 15:37-0400 Systolic blood pressure 112 mm[Hg] Andra Ramirez ART COORDINATOR-BURIAL NEEDS SALESPERSON Work Phone: [facility] 01-22-2023 15:36-0500 Body height 167.6 cm Andra Ramirez ART COORDINATOR-BURIAL NEEDS SALESPERSON Work Phone: [facility] 01-22-2023 15:36-0500 Body mass index (BMI) [Ratio] 44.87 kg/m2 Andra Ramirez ART COORDINATOR-BURIAL NEEDS SALESPERSON Work Phone: [facility] 01-22-2023 15:36-0500 Body weight 126.1 kg Andra Ramirez ART COORDINATOR-BURIAL NEEDS SALESPERSON Work Phone: [facility] 01-22-2023 15:36-0500 Diastolic blood pressure 98 mm[Hg] Andra Ramirez ART COORDINATOR-BURIAL NEEDS SALESPERSON Work Phone: [facility] 01-22-2023 15:36-0500 Heart rate 76 /min Andra Ramirez ART COORDINATOR-BURIAL NEEDS SALESPERSON Work Phone: [facility] 01-22-2023 15:36-0500 Systolic blood pressure 168 mm[Hg] Andra Ramirez ART COORDINATOR-BURIAL NEEDS SALESPERSON Work Phone: [facility] 2022 04:47-0400 Diastolic blood pressure 67 mm[Hg] MD Shea Beach Work Phone: [facility] 2022 04:47-0400 Heart rate 72 /min MD Shea Beach Work Phone: [facility] 2022 04:47-0400 Respiratory rate 20 /min MD Shea Beach Work Phone: [facility] 2022 04:47-0400 SaO2% (BldA) [Mass fraction] 96 % MD Shea Beach Work Phone: [facility] 2022 04:47-0400 Systolic blood pressure 147 mm[Hg] MD Shea Beach Work Phone: [facility] 11-09-2022 22:35-0400 Body height 167.64 cm MD Shea Beach Work Phone: [facility] 11-09-2022 22:35-0400 Body temperature 98 [degF] MD Shea Beach Work Phone: [facility] 11-09-2022 22:35-0400 Body weight 129.8 kg MD Shea Beach Work Phone: [facility] Encounters Encounter Date Encounter Type Care [...] 15 minutes Jany Navarrete MD Work Phone: [facility] Comment on above: Acute maxillary sinu sitis, recurrence not specified (Primary Dx) Start: 02-12-2024 End: 02-12-2024 ambulatory JANY NAVARRETE Not Available Start: 02-12-2024 End: 02-12-2024 Bamboo flowsalesia Navarrete MD Work Phone: [facility] Start: 02-12-2024 End: 02-12-2024 Bamboo flowsalesia Navarrete MD Work Phone: [facility] Start: 01-30-2024 End: 01-30-2024 Office outpatient [...] Castro DO Work Phone: [facility] Start: 01-23-2024 End: 01-23-2024 Orders Only Jany Navarrete MD Work Phone: [facility] Comment on above: Acute maxillary sinu [...] 25 minutes Rachel Mckeon NP Work Phone: [facility] [address] Comment on above: TONY (obstructive sle ep apnea) (Primary Dx); Snoring; Daytime hypersomnolence Start: 11-12-2023 End: 11-12-2023 ambulatory RACHEL MCKEON Not Available Start: 11-12-2023 End: 11-12-2023 Bamboo flowsheet Rachel Mckeon RETAIL SALES PROFESSIONAL Work Phone: [facility] [address] Start: 11-12-2023 End: 11-12-2023 Bamboo flowsheet Rachel Mckeon RETAIL SALES PROFESSIONAL Work Phone: [facility] Start: 10-31-2023 End: 10-31-2023 Office outpatient visit 25 minutes Mike Morelos DO Work Phone: [facility] Comment on above: Paroxysmal atrial fi brillation (Multi); Essential hypertension; Diabetes mellitus type II, non insulin dependent (Multi); Obstructive sleep apnea; BMI 34.0-34.9,adult; Never smoked tobacco; Hypertensive left ventricular hypertrophy, without heart failure Start: 10-01-2023 End: 10-01-2023 ambulatory Tariq GORDON Facility:[facility]3] Start: 10-01-2023 End: 10-01-2023 Patient encounter procedure Tariq GORDON [facility] Start: 09-17-2023 End: 09-17-2023 ambulatory Tariq Gordon [facility] Work Phone: Start: 09-17-2023 End: 09-17-2023 Departed Referred MD Tariq Gordon Work Phone: [facility] Start: 09-17-2023 End: 09-17-2023 ambulatory Tariq GORDON Facility:[id number] Start: 08-28-2023 End: 08-30-2023 ambulatory [facility] Start: 08-21-2023 End: 08-23-2023 ambulatory [facility] Start: 08-21-2023 End: 08-23-2023 Subsequent hospital visit by physician Damion Hay MD Work Phone: [facility] CT Scan Comment on above: Renal cancer, left ( HCC) Start: 08-04-2023 End: 08-04-2023 ambulatory Tariq GORDON Facility:[facility] [place] [place] Start: 08-04-2023 End: 08-04-2023 Patient encounter procedure Tariq GORDON [facility] Start: 07-14-2023 End: 07-14-2023 ambulatory Shea Beach Facility:[facility] Start: 07-14-2023 End: 07-14-2023 Patient encounter procedure Tariq GORDON [facility] [place] Start: 06-30-2023 ambulatory Tariq GORDON Facility:[facility] Start: 06-27-2023 ambulatory Tariq PATHAKNoble Facility:[facility] Start: 04-23-2023 End: 04-23-2023 Office outpatient visit 10 minutes Andra Ramirez ART COORDINATOR-BURIAL NEEDS SALESPERSON Work Phone: [facility] Comment on above: BMI 40.0-44.9, adult (CMS/HCC) (Primary Dx); Essential hypertension Start: 01-22-2023 End: 01-22-2023 Office outpatient visit 15 minutes Andra Ramirez ART COORDINATOR-BURIAL NEEDS SALESPERSON Work Phone: [facility] Comment on above: Essential hypertensi on (Primary Dx); Chest pain, unspecified type; Obstructive sleep apnea; Diabetes mellitus type II, non insulin dependent (CMS/HCC); Hypertensive left ventricular hypertrophy, without heart failure; BMI 40.0-44.9, adult (CMS/HCC) Start: 12-16-2022 End: 12-16-2022 Subsequent hospital visit by physician Gema [place] Stress Room 1 [facility] Start: 2022 Evaluation and manag ement of inpatient MD Shea Beach Work Phone: [facility] Work Phone: Start: 2022 observation encounter MD Ewa Beach Work Phone: [facility] Work Phone: Start: 2022 End: 11-12-2022 ambulatory Claudia Parra Facility:[facility] Start: 11-24-2021 End: 11-25-[address] SHEA BEACH Facility: Start: 11-07-2021 Encounter for genera l adult medical examination without abnormal findings DR SHEA BEACH [facility] Start: 11-03-2021 End: 11-03-[address] [...] above: Performed By: #### C MP #### [facility] [address] [place], [place] [address] Dr. Sunny Ortez Start: 12-17-2018 Antibody screen Comment on above: Performed By: #### T [id number] ####[facility] [id number] [place], [place] [phone] Partial nephrectomy Tariq GORDON Plan of Treatment Date Care Activity Detail Author Start: 09-16-2033 Screening for malign ant neoplasm of colon [facility] Start: 08-20-2024 Prostate specific antigen measurement Prostate Specific Antigen (PSA) Screening or Monitoring [facility] Start: 08-20-2024 Subsequent hospital visit by physician 08/20/2024 [facility] [address] [place] [address] [facility] Start: 03-26-2024 End: 03-26-2024 Patient encounter procedure 03/26/2024 3:45 PM EST Office Visit [facility] [address] [place] [address] Leon Castro DO [address] [place] [address] Arrived [facility] Comment on above: Arrived Start: 03-05-2024 End: 03-05-2024 Patient encounter procedure [facility] Comment on above: Arrived Start: 02-18-2024 End: 02-18-2024 Patient encounter procedure 02/18/2024 3:20 PM EST Office Visit [facility] [address] [place] [phone] Jany Navarrete MD [address] [place] [address] [facility] Start: 02-13-2024 End: 02-13-2024 Patient encounter procedure 02/13/2024 3:30 PM EST Office Visit [facility] [address] [place] [phone] Leon Castro DO [address] [place] [address] [facility] Start: 02-12-2024 End: 02-12-2024 Patient encounter procedure 02/12/2024 3:40 PM EST Office Visit [facility] [address] [place] [address] Jany Navarrete MD [address] [place] [address] Arrived [facility] Comment on above: Arrived Start: 01-30-2024 End: 01-30-2024 Patient encounter procedure [facility] [place] Comment on above: Sinusitis, unspecifi ed chronicity, unspecified location; Nasal congestion Start: 01-20-2024 End: 01-20-2024 Patient encounter procedure 01/20/2024 3:30 PM EST Office Visit [facility] [address] [place] [phone] Mike Morelos DO [address] [place] [address] [facility] Start: 01-12-2024 End: 01-12-2024 Patient encounter procedure 01/12/2024 4:00 PM EST Office Visit [facility] [address] [place] [phone] Jany Navarrete MD [address] [place] [address] Arrived [facility] Comment on above: Arrived Start: 01-12-2024 End: 01-11-2025 CT Maxillofacial region WO and W contrast IV CT SINUS WO IV CONTRAST Imaging Routine Acute maxillary sinusitis, recurrence not specified Expected: 01/12/2024, Expires: 01/11/2025 [facility] Work Phone: Comment on above: Expected: 01/12/2024 , Expires: 01/11/2025 Start: 12-17-2023 End: 12-17-2023 Patient encounter procedure 12/17/2023 2:40 PM EST Office Visit [facility] [address] [place] [phone] Jany Navarrete MD [address] [place] [address] Arrived [facility] Comment on above: Arrived Start: 12-17-2023 End: 12-16-2024 CT Maxillofacial region WO and W contrast IV CT SINUS WO IV CONTRAST Imaging Routine Chronic rhinitis Expected: 12/17/2023, Expires: 12/16/2024 [facility] Work Phone: Comment on above: Expected: 12/17/2023 , Expires: 12/16/2024 Start: 11-12-2023 End: 11-12-2023 Patient encounter procedure 11/12/2023 3:00 PM EDT Office Visit [facility] [address] [place] [address] Rachel Mckeon NP [address] [place], [place] Arrived [facility] Comment on above: Arrived Start: 10-31-2023 End: 10-30-2024 Holter monitor study Holter Or Event Preschool Teacher Assistant Cardiac Services Routine Paroxysmal atrial fibrillation (Multi) Expected: 10/31/2023 (Approximate), Expires: 10/30/2024 [facility] Service Area Work Phone: Comment on above: Expected: 10/31/2023 (Approximate), Expires: 10/30/2024 Start: 10-12-2023 COVID-19 Vaccine ( season) COVID-19 Vaccine ( season) [facility] Start: 10-12-2023 Influenza vaccination Influenza Vacc ine (#1) [facility] Start: 09-17-2023 [facility] Start: 09-11-2023 Influenza vaccination Flu vaccine (# 1) [facility] Start: 08-28-2023 End: 08-28-2023 Patient encounter procedure 08/28/2023 2:30 PM EDT Procedure visit [facility] Part of [address] [place] [phone] Cuca Paulino, ART COORDINATOR - BURIAL NEEDS SALESPERSON [address] [place] [address] [address] [place] [address] 3 months, CT, labs prior [facility] Part of [facility] Comment on above: 3 months, CT, labs p rior Start: 03-25-2023 End: 03-25-2023 Patient encounter procedure 03/25/2023 3:30 PM EST Office Visit [facility] [address] [facility] [address] [place] [phone] Andra Ramirez, ART COORDINATOR-BURIAL NEEDS SALESPERSON [address] [facility] [address] [place] [address] [facility] Start: 12-17-2022 End: 12-17-2022 Professional / ancillary services management [facility] Start: 2022 Respiratory Syncytia l Virus (RSV) or age 60 yrs+ (1 - 1-dose 60+ series) Respiratory Syncytial Virus (RSV) or age 60 yrs+ (1 - 1-dose 60+ series) [facility] Start: 2022 RSV patient s and/or patients aged 60+ years (1 - 1-dose 60+ series) RSV patients and/or patients aged 60+ years (1 - 1-dose 60+ series) [facility] Start: 2022 Blood chemistry [facility] Start: 2022 Hospital admission [facility] Start: 2022 End: 2022 [facility] Start: 2022 Plain chest X-ray XR chest 2V* [facility] Start: 2022 XR Chest [address] [facility] Start: 10-11-2022 Influenza vaccination Influenza Vacc ine (#1) [facility] Start: 2012 Shingles vaccine (1 of 2) Shingles vaccine (1 of 2) [facility] Start: 2012 Zoster Vaccines (1 of 2) Zoste r Vaccines (1 of 2) [facility] Start: 11-11-2007 Screening for malign ant neoplasm of colon [facility] Start: 2002 Lipid panel Lipids [facility] Start: 1984 DTaP/Tdap/Td Vaccine s (1 - Tdap) DTaP/Tdap/Td Vaccines (1 - Tdap) [facility] Start: 1981 DTaP/Tdap/Td vaccine (1 - Tdap) DTaP/Tdap/Td vaccine (1 - Tdap) [facility] Start: 1981 Urine screening for protein Diabetes: Urine Protein Screening [facility] Start: 1980 Hepatitis C screening U [facility] Start: 1977 HIV screening HIV screen [facility] Start: 1974 Depression Screen Depression Screen [facility] Start: 1972 Diabetic foot examination Diabetes: Foot Exam [facility] Start: 1972 Glaucoma screening Diabetes: R etinopathy Screening [facility] Start: 1968 Pneumococcal Vaccine : Pediatrics (0 to 5 Years) and At-Risk Patients (6 to 64 Years) (1 - PCV) Pneumococcal Vaccine: Pediatrics (0 to 5 Years) and At-Risk Patients (6 to 64 Years) (1 - PCV) [facility] Start: 1968 Pneumococcal Vaccine : Pediatrics (0 to 5 Years) and At-Risk Patients (6 to 64 Years) (1 of 2 - PCV) Pneumococcal Vaccine: Pediatrics (0 to 5 Years) and At-Risk Patients (6 to 64 Years) (1 of 2 - PCV) [facility] Start: 11-11-1963 MMR Vaccines (1 of 1 - Standard series) MMR Vaccines (1 of 1 - Standard series) [facility] Start: 05-12-1963 COVID-19 Vaccine (#1) COVID-19 Vacci ne (#1) [facility] Start: 1962 Hemoglobin A1c measurement Diabetes: Hemoglobin A1C [facility] Start: 1962 HIV screening HIV Screening [facility] Start: 1962 Lipid panel Lipid Panel [facility] Start: 1962 Screening for malign ant neoplasm of colon [facility] Start: 1962 Yearly Adult Physical Yearly Adult P [facility] Anion gap measurement [facility] Calculated LDL cholesterol level [facility] Cholesterol.total/Ch oles terol in HDL [Mass Ratio] in Serum or Plasma [facility] End: 08-21-2023 CT Abdomen and Pelvis W contrast IV [facility] Comment on above: 1 Occurrences starti ng 08/21/2023 until 08/21/2023 Glucose measurement estimated from glycated hemoglobin [facility] NM Heart Perfusion W stress and W radionuclide IV Nuclear Stress Test Cardiac Nuclear Medicine Routine Chest pain, unspecified type 12/16/2022 8:08 AM EST [facility] Service Area Work Phone: VLDL cholesterol measurement [facility] Payers Date Payer Category Payer Unknown [id number] 2022 Self-pay 2022 Unknown [id number] 2022 Private Health Insurance [id number] 2022 Unknown [id number] 1962 Unknown [id number] 2.16.840.1.892418.3.579.2.593 1962 Unknown [id number] 2.16.840.1.841533.3.579.2.593 1962 Unknown [id number] 2.16.840.1.547475.3.579.2.593 1962 Unknown [id number] 2.16.840.1.293511.3.579.2.593 1962 Unknown [id number] 2.16.840.1.897830.3.579.2.593 1962 Unknown [id number] 2.16.840.1.801753.3.579.2.593 1962 Unknown [id number] 2.16.840.1.193987.3.579.2.593 1962 Unknown [id number] 2.16.840.1.880424.3.579.2.593 1962 Unknown [id number] 2.16.840.1.943565.3.579.2.593 1962 Unknown [id number] 2.16.840.1.337041.3.579.2.593 1962 Unknown [id number] 2.16.840.1.038644.3.579.2.173 1962 Unknown [id number] 2.16.840.1.127142.3.579.2.173 1962 Unknown [id number] 2.16.840.1.534039.3.579.2.173 1962 Unknown [id number] 2.16.840.1.371158.3.579.2.173 1962 Unknown [id number] 2.16.840.1.728324.3.579.2.727 1962 Unknown [id number] 2.16.840.1.873208.3.579.2.727 1962 Unknown [id number] 2.16.840.1.539124.3.579.2.727 1962 Unknown [id number] 2.16.840.1.107394.3.579.2.727 1962 Unknown [id number] 2.16.840.1.880657.3.579.2.1259 1962 Unknown [id number] 2.16.840.1.633874.3.579.2.1259 1962 Unknown [id number] 2.16.840.1.867529.3.579.2.1259 1962 Unknown [id number] 2.16.840.1.139968.3.579.2.1259 1962 Unknown [id number] 2.16.840.1.396512.3.579.2.1259 1962 Unknown [id number] 2.16.840.1.278836.3.579.2.1259 1962 Unknown [id number] 2.16.840.1.580315.3.579.2.1259 1962 Unknown [id number] 2.16.840.1.091020.3.579.2.1259 1962 Unknown [id number] 2.16.840.1.069359.3.579.2.1259 1959 Unknown [id number] 1959 Unknown [id number] Unknown Carlos POWELL/STEPHEN [id number] Unknown [id number] 2.16.840.1.578963.3.579.2.531 Unknown [id number] 2.16.840.1.468201.3.579.2.531 Social History Date Type Detail Facility Start: 2022 End: 11-12-2023 Tobacco smoking status NHIS Never smoked tobacco (finding) [facility] Start: 1960 Sex Assigned At Male [facility] Tobacco smoking stat NHIS Tobacco smoking consumption unknown [facility] Start: 12-16-2022 Gender identity Identifies as male gender (finding) [facility] Work Phone: Start: 12-16-2022 Sexual orientation Heterosexual (finding) [facility] Work Phone: Start: 12-06-2022 End: 10-31-2023 Exposure to SARS-CoV-2 (event) Not sure [facility] Start: 01-22-2023 End: 11-12-2023 Tobacco use and exposure Smokeless tobacco non-user [facility] Work Phone: Start: 01-22-2023 End: 03-05-2024 Alcohol intake Lifetime non-drinker (finding) [facility] Work Phone: Start: 01-22-2023 End: 03-05-2024 History of Social function [facility] Work Phone: Start: 01-22-2023 End: 03-05-2024 Tobacco use panel [facility] Tobacco smoking status Never [facility] Start: 1960 Sex assigned at Not on file [facility] Start: 10-31-2023 Alcoholic beverage intake Current drinker of alcohol (finding) [facility] Work Phone: Medical Equipment Procedure Code Equipment Code Equipment Original Text Equi pment Identifier Dates 1 each by In Vit ro route daily As needed. [id number] Functional Status Date Assessment Result Facility 10-01-2023 Functional Status N/A [facility] 08-04-2023 Functional Status N/A [facility] 07-14-2023 Functional Status N/A [facility] [place] Clinical Notes 01-22-2023 to 02-13-2024 Leon Castro, [...] Past Medical History: Diagnosis Date Asymptomatic hypertension ([facility]) Atrial fibrillation ([facility]) BMI 34.0-34.9,adult 10/31/2023 BMI 40.0-44.9, adult ([facility]) 01/23/2023 Diabetes mellitus type II, non insulin dependent ([facility]) 04/09/2021 Diabetes type 2, controlled ([facility]) Elevated PSA 05/22/2023 Essential hypertension ([facility]) 11/24/2021 Hyperplastic rectal polyp 01/29/2024 Hypertensive left ventricular hypertrophy, without heart failure ([facility]) 01/22/2023 Kidney disease Left renal mass 01/17/2023 Never smoked tobacco 10/31/2023 Obstructive sleep apnea 01/22/2023 Paroxysmal atrial fibrillation ([facility]) 10/31/2023 Positive fecal occult blood test 01/29/2024 [...] tablet by mouth Daily, Disp: , Rfl: Apchediepgz-Lgasiyquf-Juifpu (Trelegy Ellipta) 100-62.5-25 MCG/ACT aerosol powder , [...] physician and subspecialist documented in this encounter [facility] 02-12-2024 History of Present illness Narrative [...] as needed basis. documented in this encounter [facility] 01-30-2024 History of Present illness Narrative [...] Past Medical History: Diagnosis Date Asymptomatic hypertension ([facility] Atrial fibrillation ([facility]) BMI 34.0-34.9,adult 10/31/2023 BMI 40.0-44.9, adult ([facility]) 01/23/2023 Diabetes mellitus type II, non insulin dependent ([facility]) 04/09/2021 Diabetes type 2, controlled ([facility]) Elevated PSA 05/22/2023 Essential hypertension (CMS/HCC) 11/24/2021 [...] tablet by mouth Daily, Disp: , Rfl: Kgxtrmbdzip-Vczfqwale-Ksectd (Trelegy Ellipta) 100-62.5-25 MCG/ACT aerosol powder , [...] referral to ENT documented in this encounter [facility] 01-23-2024 History of Present illness Narrative I called the patient and discuss the results and sent in Augmentin for him. documented in this encounter [facility] 01-12-2024 History of Present illness Narrative [...] post nasal drip. documented in this encounter [facility] 12-17-2023 History of Present illness Narrative [...] spring and fall. 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 If the combination [...] should problems arise. documented in this encounter [facility] 10-31-2023 History of Present illness Narrative Subjective Clarence Flores is a 62 y.o. male Chief Complaint Follow-up 62-year-old gentleman here for follow-up for the first time to see me since he was last admitted to [facility] 1 year ago for accelerated hypertension. He [...] discussion and plan. documented in this encounter [facility] Work Phone: 10-31-2023 Instructions Sita Uribe RN [...] exercise. Stay on eliquis Get 14 day case monitor Only use cardizem as needed is a fib lasts longer than 1-5 mins documented in this encounter [facility] Work Phone: 08-04-2023 Note Patient: CLARENCE FLORES Age: 62 years Sex: Male : 1960 Associated Diagnoses: None Author: Tariq GORDON MD Subjective no changes to [facility] Comment on above: Result Comment: Elec tronically [...] disease: Father and Sister. Ovarian cancer: Mother. [facility] Comment on above: Result Comment: Elec tronically [...] restriction. Annual follow-up Andra Ramirez MSN, JOSÉ MIGUEL-BURIAL NEEDS SALESPERSON, PMHNP-BC [facility] Please excuse any errors in grammar or translation related to this dictation. Voice recognition software was utilized to prepare this document.. documented in this encounter [facility] Work Phone: 04-23-2023 Instructions SUGEY Tabares [...] Morelos 9 months documented in this encounter [facility] Work Phone: 01-23-2023 Evaluation + Plan note Associated Problem(s): BMI 40.0-44.9, adult (CMS/HCC) Recently started treatment with Ozempic Weight is down 10 pounds Reviewed the merits of healthy lifestyle choices on overall cardiovascular health. [facility] Work Phone: 01-23-2023 Miscellaneous Notes Associated Problem(s): BMI 40.0-44.9, adult (CMS/HCC) Recently started treatment with Ozempic Weight is down 10 pounds Reviewed the merits of healthy lifestyle choices on overall cardiovascular health. Associated Problem(s): Obstructive sleep apnea Remains compliant with CPAP Associated Problem(s): Diabetes mellitus type II, non insulin dependent ([facility]) On ARB No statin Unknown hemoglobin A1c [...] METS. EF 59%. documented in this encounter [facility] Work Phone: 01-23-2023 Evaluation + Plan note Associated Problem(s): Obstructive sleep apnea Remains compliant with CPAP [facility] Work Phone: 01-23-2023 Evaluation + Plan note Associated Problem(s): Diabetes mellitus type II, non insulin dependent ([facility]) On ARB No statin Unknown hemoglobin A1c [facility] Work Phone: 01-23-2023 Evaluation + Plan note Associated Problem(s): Hypertensive left ventricular hypertrophy, without heart failure November 2022 TTE LVEF greater than 70% LVH moderate MR trace [facility] Work Phone: 01-23-2023 Evaluation + Plan note Associated Problem(s): Essential hypertension He has been compliant with addition of doxazosin and valsartan since discharge. Reports PCP stopped hydrochlorothiazide. Remains elevated in office today [facility] Work Phone: 01-23-2023 Evaluation + Plan note Associated Problem(s): Cardiac and Vasculature November 2022 hospitalization for chest pressure, ruled out ACS. Inpatient echo EF greater than 70%, no wall motion abnormality. Subsequent December 2022 perfusion study no ischemia, no infarct. Completed 4 METS. EF 59%. [facility] Work Phone: 01-22-2023 History of Present illness Narrative Chief Complaint Doing fine Reason for Visit Patient presents to the office today for outpatient follow-up for hospital follow up. Patient was recently hospitalized at [facility]. The patient was seen in Cardiology consult with subsequent cardiovascular management by [facility]. Hospitalization records have been reviewed. Reason for Cardiology Consultation: Chest pressure, accelerated hypertension Consulting Die Equipment Operator: Dr. Morelos Cardiovascular testing: Echocardiogram, outpatient perfusion study Changes to cardiovascular medical regimen at time of discharge: Added Cardura 8 mg, valsartan 320 mg, hydrochlorothiazide Discharge disposition: Home This is initial in clinic evaluation at [facility] Presents today ambulatory with steady gait. [...] Remains compliant with CPAP BMI 40.0-44.9, adult ([facility]) Recently started treatment with Ozempic Weight is [...] contact the office if new symptoms arise. RETAIL SALES PROFESSIONAL after 2 months Andra Ramirez MSN, ART COORDINATOR-BURIAL NEEDS SALESPERSON, PMHNP-BC [facility] Please excuse any errors in grammar or translation related to this dictation. Voice recognition software was utilized to prepare this document. documented in this encounter [facility] Work Phone: 01-22-2023 Instructions SUGEY Tabares [...] contact the office if new symptoms arise. RETAIL SALES PROFESSIONAL after 2 months documented in this encounter [facility] Work Phone: Evaluation + Plan note Future Appointments Appointment Date:08/04/2023 08:30:00 AM Scheduled Provider: Location:[facility] Appointment Type:Surgery FT [facility] General Surgery [place] Evaluation note Diagnosis Onset Date Chest pain acute Hypertensive urgency acute [facility] Work Phone: Evaluation note* Diagnosis Essential hypertension- Primary Unspecified essential hypertension Chest pain, unspecified type Obstructive sleep apnea Obstructive sleep apnea (adult) (pediatric) Diabetes mellitus type II, non insulin dependent ([facility]/HCC) Type II or unspecified type diabetes mellitus without mention of complication, not stated as uncontrolled Hypertensive left ventricular hypertrophy, without heart failure BMI 40.0-44.9, adult ([facility]/HCC) documented in this encounter [facility] Work Phone: Evaluation note* Diagnosis BMI 40.0-44.9, adult ([facility]/HCC)- Primary Essential hypertension Unspecified essential hypertension documented in this encounter [facility] Work Phone: Evaluation noteNo assessment information available [facility] Work Phone: Evaluation note* Diagnosis TONY (obstructive sleep apnea)- Primary Obstructive sleep apnea (adult) (pediatric) Snoring Other dyspnea and respiratory abnormality Daytime hypersomnolence [facility] Diagnosis Dyspnea on exertion- Primary Other dyspnea and respiratory abnormality Chronic rhinitis [facility] Diagnosis Cough variant asthma ([facility])- Primary Cough variant asthma Acute maxillary sinusitis, [...] without heart failure documented in this encounter [facility] Work Phone: Evaluation note* Diagnosis Acute maxillary sinusitis, recurrence not specified- Primary documented in this encounter [facility]* Diagnosis Chronic anticoagulation- Primary Encounter for long-term (current) use of 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 Sinusitis, unspecified chronicity, unspecified location Nasal congestion Other diseases of nasal cavity and sinuses documented in this encounter [facility]* Diagnosis Acute maxillary sinusitis, recurrence not specified- Primary documented in this encounter [facility]* Diagnosis Sinusitis, unspecified chronicity, unspecified location- Primary Nasal congestion Other diseases of nasal cavity and sinuses Chronic anticoagulation Encounter for long-term (current) use of 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 documented in this encounter [facility]* Diagnosis Renal cancer, left (HCC) documented in this encounter [facility] course Narrative No data available for this section [facility] General Surgery [place] [facility] Discharge instructions No data available for this section [facility] Surgery [place] Progress note No data available for this section [facility] Surgery [place] Reason for referral (narrative)* Consultation (Routine) - Authorized Specialty Diagnoses / Procedures Referred By Callum long Referred To Contact Cardiology Diagnoses Essential hypertension Procedures Follow Up In Cardiology Andra Ramirez APRN-CNP [address] [place] [address] Referral ID Status Reason Start Date Expiration Date V isits Requested Visits Authorized [id number] Authorized 01/22/2023 01/22/2024 1 1 [facility] Work Phone: Reason for referral (narrative)* Consultation (Routine) - Authorized Specialty Diagnoses / Procedures Referred By Callum long Referred To Contact Cardiology Diagnoses Essential hypertension Procedures Follow Up In Cardiology Andra Ramirez APRN-CNP [address] [facility] [address], [address] [place] [address] Mike Morelos DO [address] [facility] [address], [facility] [address] [place] [address] Referral ID Status Reason Start Date Expiration Date V isits Requested Visits Authorized [id number] Authorized 04/23/2023 04/22/2024 1 1 [facility] Work Phone: Summary Purpose Family History [...] 2022 1:53am Hospital Course Note HNO ID: [id number] Author: Delonte pham (Jose) Hrnchar Service: Urology [...] atrial fibrillation (Multi) Procedures Holter Or Event Preschool Teacher Assistant Mike Morelos, DO [address] [place] [address] 2, [address] [place], [place] [id number] Referral ID Status Reason Start Date Expiration Date V isits Requested Visits Authorized [id number] Pending Review 10/31/2023 10/30/2024 1 1 Specialty Diagnoses / Procedures Referred By Contac t Referred To Contact Cardiology Diagnoses Essential hypertension Procedures Follow Up In Cardiology Mike Morelos, [address] [facility] [address], [facility] [address] [place] [address] Mike Morelos, DO [address] [facility] [address], [place] [phone] Referral ID Status Reason Start Date Expiration Date V isits Requested Visits Authorized [id number] Authorized 10/31/2023 10/30/2024 1 1 Additional Source Comments (unrecognized sect ion and content) No Status Records FoundNo Status Records FoundNo Status Records FoundNo Status Records FoundNo Status Records FoundNo Status Records Found INFORMATION SOURCE (unrecogn ized section and content) DATE CREATED AUTHOR 06/26/2019 [facility] DATE CREATED AUTHOR AUTHOR'S ORGANIZ ATION 12/03/2021 [facility] DATE CREATED AUTHOR AUTHOR'S ORGANIZ ATION 09/01/2023 [facility] DATE CREATED AUTHOR AUTHOR'S ORGANIZ ATION 09/24/2023 [facility] DATE CREATED AUTHOR AUTHOR'S ORGANIZ ATION 10/03/2023 [facility] DATE CREATED AUTHOR AUTHOR'S ORGANIZ ATION 03/23/2024 [facility] Care Teams (unrecognized sec tion and content) Team Status: Active Member Role Status Dates Shea [place] MD Primary Care Provider Active Team Status: Active Member Role Status Dates Shea [place] MD Primary Care Provider Active Damien Hercules DO Emergency Provider Active Derick Gomes MD Admit Provider, Attending Provi jefferson Active Engine Research Engineer Relationship Specialty Start Date End Date Shea [place] MD [address] [place] [address] PCP - General Family Medicine 11/13/22 Engine Research Engineer Relationship Specialty Start Date End Date Shea [place] MD [address] [place] [address] PCP - General Family Medicine 11/13/22 Engine Research Engineer Relationship Specialty Start Date End Date Shea [place] MD [address] [place] [address] PCP - General Family Medicine 11/13/22 Engine Research Engineer Relationship Specialty Start Date End Date Shea [place] MD [address] [place] [address] PCP - General Family Medicine 11/13/22 Team Status: Inactive Member Role Status Dates Tariq Gordon MD FACS Attending Provider Active Start: September 17, 2023 End: September 17, 2023 Engine Research Engineer Relationship Specialty Start Date End Date Shea [place] MD [address] [place] [address] PCP - General Family Medicine 11/13/22 Engine Research Engineer Relationship Specialty Start Date End Date Shea [place] MD [address] [place] [address] PCP - General Family Medicine 01/30/24 Engine Research Engineer Relationship Specialty Start Date End Date Shea [place] MD [address] [place] [address] PCP - General Family Medicine 01/30/24 Engine Research Engineer Relationship Specialty Start Date End Date Shea [place] MD [address] [facility] [place] [address] PCP - General Family Medicine 01/30/24 Engine Research Engineer Relationship Specialty Start Date End Date Shea [place] MD [address] [place] [address] PCP - General Family Medicine 01/30/24 Rachel Mckeon NP [address] Nurse Practitioner Neurology 02/13/24 Leon Castro DO [address] [place] [place] [address] Otolaryngology 02/13/24 Engine Research Engineer Relationship Specialty Start Date End Date Shea [place] MD [address] [place] [address] PCP - General Family Medicine 05/23/23 Engine Research Engineer Relationship Specialty Start Date End Date Shea [place] MD [address] [place] [address] PCP - General Family Medicine 01/30/24 Rachel Mckeon NP [address] [place], [place] Nurse Practitioner Neurology 02/13/24 Leon Castro DO [address] [facility] [place] [address] Otolaryngology 02/13/24 Goals (unrecognized section and content) [...] SPECT SINGLE STUDY AT REST OR STRESS MN CV STRS TST XERS&/OR RX CONT ECG W/O I&R MN CV STRS TST XERS&/OR RX CONT ECG I&R ONLY [place] CV STRS TST XERS&/OR RX CONT ECG TRCG ONLY [place] CV STRS TST XERS&/OR RX CONT ECG W/SI&R Mike Morelos [address], [address] [address] Referral ID Status Reason Start Date Expiration Date V isits Requested Visits Authorized [id number] Authorized 11/13/2022 05/12/2023 5 5 Reason Comments Shortness of Breath Chest pressure Specialty Diagnoses / Procedures Referred By Contac t Referred To Contact Cardiology Diagnoses Chest pain, unspecified type Procedures Follow Up In Cardiology Mike Morelos DO [address] [place] [address] [address], [address] [address] Mike Morelos, DO [address] [place] [address] [address], [address] [address] Referral ID Status Reason Start Date Expiration Date V isits Requested Visits Authorized [id number] Authorized 01/06/2023 01/06/2024 1 1 Reason Comments Follow-up 1 month Specialty Diagnoses / Procedures Referred By Contac t Referred To Contact Cardiology Diagnoses Essential hypertension Procedures Follow Up In Cardiology Andra Ramirez, ART COORDINATOR-BURIAL NEEDS SALESPERSON [address] [facility], [address] [place] [address] Referral ID Status Reason Start Date Expiration Date V isits Requested Visits Authorized [id number] Authorized 03/25/2023 03/24/2024 1 1 Reason Comments [...] unspecified chronicity, unspecified location Nasal congestion Procedures [place] OFFICE/OUTPATIENT NEW HIGH MDM 60 MINUTES Rachel Mckeon, RETAIL SALES PROFESSIONAL [address] [place] [address] Phone: tel: fax: Leon Castro, [address] [place] [address] Phone: tel: fax: Referral ID Status Reason Start Date Expiration Date V isits Requested Visits Authorized [id number] Closed Specialty Services Required 11/20/2023 05/18/2024 1 1 Reason Comments Nasal Congestion 2 week alhaji Specialty Diagnoses / Procedures Referred By Contac t Referred To Contact Radiology Diagnoses Renal cancer, left (HCC) Procedures CT ABDOMEN PELVIS W IV CONTRAST Additional Contrast? None CT ABDOMEN PELVIS W WO CONTRAST Additional Contrast? None Damion Hay MD [address] [facility], [address] [place] [address] Referral ID Status Reason Start Date Expiration Date Visits Re quested Visits Authorized [id number] Closed 08/13/2023 09/27/2023 1 1 FOR RECORDS [...] BE BASED ON THE PRIMARY CLINICAL RECORDS. [facility], [facility]. provides no warranty or guarantee of the accuracy or completeness of information in this document.
[2024-03-27 08:43] LABS: Basophils Absolute Auto 0.1 10^3/uL (0.0-0.1); Basophils Percent Auto 0.8 % (0.2-2.0); Eosinophils Absolute Auto 0.3 10^3/uL (0.0-0.7); Eosinophils Percent Auto 2.8 % (0.9-7.0); Hematocrit 44.2 % (42.0-54.0); Immature Granulocytes Abs Auto 0.07 10^3/uL (0.00-0.03); Immature Granulocytes Pct Auto 0.6 % (0.0-0.5); Lymphocytes Absolute Auto 1.6 10^3/uL (1.2-3.8); Lymphocytes Percent Auto 13.3 % (20.5-60.0); Mean Corpuscular HGB Conc 33.9 g/dL (29.9-35.2); Mean Corpuscular Hemoglobin 30.5 pg (25.9-34.0); Mean Corpuscular Volume 89.8 fL (80.0-94.0); Mean Platelet Volume 8.5 fL (9.5-13.5); Monocytes Absolute Auto 1.1 10^3/uL (0.3-0.8); Neutrophils Absolute Auto 8.9 10^3/uL (1.4-6.5); Neutrophils Percent Auto 73.5 % (43.0-75.0); Platelet Count 278 10^3/uL (150-450); Red Blood Count 4.92 10^6/uL (4.70-6.10); Red Cell Distribution Width 13.2 % (11.0-15.0); White Blood Count 12.2 10^3/uL (4.0-11.0)
[2024-03-27 09:12] LABS: Estimated Average Glucose 108 mg/dL; Glycohemoglobin A1C 5.4 % (4.5-6.2)
[2024-03-27 09:30] LABS: Alanine Aminotransferase 48 U/L (16-63); Albumin Globulin Ratio 0.9; Albumin Level 3.6 g/dL (3.4-5.0); Alkaline Phosphatase 65 U/L (46-116); Anion Gap 11.9; Aspartate Amino Transferase 36 U/L (15-37); BUN Creatinine Ratio 14.6; Bilirubin Total 0.6 mg/dL (0.2-1.0); Calcium 9.2 mg/dL (8.5-10.1); Carbon Dioxide 27.7 mmol/L (21.0-32.0); Chloride 107 mmol/L (98-107); Chol HDL Ratio 3.6; Cholesterol 124 mg/dL (<=200); Estimated GFR (African America 55 (>=60 mL/min/1.73m^2); Estimated GFR (Non-African Ame 45 (>=60 mL/min/1.73m^2); Free T3 2.46 pg/mL (2.18-3.98); Globulin 3.8 g/dL; Glucose 101 mg/dL (74-106); HDL Cholesterol 34 mg/dL (40-60); Potassium 4.6 mmol/L (3.5-5.1); Sodium 142 mmol/L (136-145); Thyroid Stimulating Hormone 1.215 uIU/mL (0.358-3.740); Total Protein 7.4 g/dL (6.4-8.2); Triglycerides 69 mg/dL (<=150); VLDL CHOLESTEROL 13.8 mg/dL
== END 2024-03-27 08:15 | disposition home or self-care (01) ==
LOC: LAB 08:16
PROVIDERS: PCP Family Medicine; Visit Provider Family Medicine
DX: Z00.00 Encounter for general adult medical examination without abnormal findings (principal); I10 Essential (primary) hypertension; E11.69 Type 2 diabetes mellitus with other specified complication; I48.91 Unspecified atrial fibrillation; Z12.11 Encounter for screening for malignant neoplasm of colon; R97.20 Elevated prostate specific antigen [PSA]
CPT/HCPCS: 36415; 80053; 80061; 83036; 84153; 84436; 84443; 84481; 85025

== ENCOUNTER 2024-07-01 15:12 | Outpatient (OUT) | payer OTHER, SELFPAY ==
--- OUTSIDE RECORDS SUMMARY | 2024-03-09 15:36 | XMS_ITS ---
Author Organization [facility] in [place] Address [address] [place] [address] Care Team Providers Care Monument Erector Name Role Phone EnmanuelKev Primary Care Provider REASON FOR VISIT Blood work. Encounters Encounter Location Date Provider Diagnosis [facility] [address] [place] [address] 03/09/2024 Kev Singer Essential (primary) hypertension I10 ; Type 2 diabetes mellitus with other specified complication E11.69 ; Atrial fibrillation with RVR I48.91 ; Well adult Z00.00 ; Screening for colon cancer Z12.11 and Elevated PSA R97.20 Assessments Encounter Date Diagnosis (ICD Code) Assessment Notes Treatment Notes Treatment Clinical Notes Section Notes 03/09/2024 Essential (primary) hypertension (ICD-10 - I10) 03/09/2024 Type 2 diabetes mellitus with other specified complication (ICD-10 - E11.69) 03/09/2024 Atrial fibrillation with RVR (ICD-10 - I48.91) 03/09/2024 Well adult (ICD-10 - Z00.00) 03/09/2024 Screening for colon cancer (ICD-10 - Z12.11) 03/09/2024 Elevated PSA (ICD-10 - R97.20) Plan Of Treatment Pending Test Test Name Order Date FECAL OCCULT BLOOD 03/09/2024 CMP - Comprehensive Metabolic Panel 02/11 CBC W/AUTO DIFF 03/09/2024 GLYCOHEMOGLOBIN A1C 03/09/2024 LIPID PROFILE 03/09/2024 THYROID PANEL (T4/TSH/FREE T3) PSA, SCREENING 03/09/2024 Progress Notes * Clarence CHASEDOB:1960 ([age] yo M)Acc No.[id number]:03/09/2024 Patient: Clarence LAWSON :1960 A ge:63 Y S ex:Male Address:[address] [place] [id number] Subjective: * Chief Complaints: * B lood work. * Medical History: * Surgical History: * Hospitalization/Major Diagno stic Procedure: * Medications: Objective: * Vitals: * Physical Examination: Assessment: * Assessment: 1. E ssential (primary) hypertension - I10 (Primary) 2 . T ype 2 diabetes mellitus with other specified complication - E11.69 3 . A trial fibrillation with RVR - I48.91 4 . W ell adult - Z00.00 5 . S creening for colon cancer - Z12.11 6 . E levated PSA - R97.20 Plan: * Treatment: 2. T ype 2 diabetes mellitus with other specified complication L AB: FECAL OCCULT BLOOD L AB: CMP - Comprehensive Metabolic Panel L AB: CBC W/AUTO DIFF L AB: GLYCOHEMOGLOBIN A1C L AB: LIPID PROFILE L AB: THYROID PANEL (T4/TSH/FREE T3) L AB: PSA, SCREENING 3. A trial fibrillation with RVR L AB: FECAL OCCULT BLOOD L AB: CMP - Comprehensive Metabolic Panel L AB: CBC W/AUTO DIFF L AB: GLYCOHEMOGLOBIN A1C L AB: LIPID PROFILE L AB: THYROID PANEL (T4/TSH/FREE T3) L AB: PSA, SCREENING 4. W ell adult L AB: FECAL OCCULT BLOOD L AB: CMP - Comprehensive Metabolic Panel L AB: CBC W/AUTO DIFF L AB: GLYCOHEMOGLOBIN A1C L AB: LIPID PROFILE L AB: THYROID PANEL (T4/TSH/FREE T3) L AB: PSA, SCREENING 5. S creening for colon cancer L AB: FECAL OCCULT BLOOD L AB: CMP - Comprehensive Metabolic Panel L AB: CBC W/AUTO DIFF L AB: GLYCOHEMOGLOBIN A1C L AB: LIPID PROFILE L AB: THYROID PANEL (T4/TSH/FREE T3) L AB: PSA, SCREENING 6. E levated PSA L AB: FECAL OCCULT BLOOD L AB: CMP - Comprehensive Metabolic Panel L AB: CBC W/AUTO DIFF L AB: GLYCOHEMOGLOBIN A1C L AB: LIPID PROFILE L AB: THYROID PANEL (T4/TSH/FREE T3) L AB: PSA, SCREENING * Procedure Codes: * true * Date: Generated for Martin mejia/Uriel/eTbebosmitting on: 0 07/01/2024 03:16 PM EDT
--- OUTSIDE RECORDS SUMMARY | 2024-03-25 11:42 | XMS_ITS ---
Author Organization [facility] in [place] Address [address] [place] [place] [address] Care Team Providers Care Plumbing Drafter Name Role Phone Kev Singer Primary Care Provider REASON FOR VISIT Eliquis refill Medications Medication SIG (Take, Route, Frequency, Duration) Notes Start Date End Date Status Eliquis 5 MG 1 tablet Orally twice a day for 90 days 09/19/2023 Active Encounters Encounter Location Date Provider Diagnosis [address] [place] [address] 03/25/2024 Kev Singer Unspecified atrial fibrillation I48.91 Assessments Encounter Date Diagnosis (ICD Code) Assessment Notes Treatment Notes Treatment Clinical Notes Section Notes 03/25/2024 Unspecified atrial fibrillation (ICD-10 - I48.91) Plan Of Treatment Medication Medication Name Sig Start Date Stop Date Notes Eliquis 5 MG 1 tablet Orally twice a day for 90 days 09/18 Progress Notes * RENAClarence VillarrealDOB:1960 ([age] yo M)Acc No.[id number]:03/25/2024 Patient: Clarence LAWSON :1960 A ge:63 Y S ex:Male Address:[address] [place] [address] * Refills Refill Eliquis Tablet, 5 MG, Orally, 180 Tablet, 1 tablet, twice a day, 90 days, Refills=3 * true * Date: Generated for Martin mejia/Uriel/Berry on: 0 07/01/2024 03:16 PM EDT
--- OUTSIDE RECORDS SUMMARY | 2024-03-27 10:17 | XMS_ITS ---
Author Organization [facility] in [place] Address [address] [place] [address] Care Team Providers Care Furnace Process Plant Operator Name Role Phone Kev Singer Primary Care Provider REASON FOR VISIT labs Problems Problem Type SNOMED Code ICD Code Onset Dates Problem Status W/U Status Risk Notes Problem Elevated WBCs (D72.829) Active confirmed Encounters Encounter Location Date Provider Diagnosis [facility] [address] [place] [address] 03/27/2024 Kev Singer Elevated PSA R97.20 and Elevated WBCs D72.829 Assessments Encounter Date Diagnosis (ICD Code) Assessment Notes Treatment Notes Treatment Clinical Notes Section Notes 03/27/2024 Elevated PSA (ICD-10 - R97.20) 03/27/2024 Elevated WBCs (ICD-10 - D72.829) Plan Of Treatment Pending Test Test Name Order Date CBC W/AUTO DIFF 03/27/2024 Free PSA 03/27/2024 Progress Notes * RENA ClarenceDOB:1960 ([age] yo M)Acc No.[id number]:03/27/2024 Patient: Clarence LAWSON :1960 A ge:63 Y S ex:Male Address:[place] [address] Subjective: * Chief Complaints: * L abs * Medical History: * Surgical History: * Hospitalization/Major Diagno stic Procedure: * Medications: Objective: * Vitals: * Physical Examination: Assessment: * Assessment: 1. E levated PSA - R97.20 (Primary) 2 . E levated WBCs - D72.829 Plan: * Treatment: 2. E levated WBCs L AB: CBC W/AUTO DIFF * Procedure Codes: * true * Date: Generated for Martin ng/Uriel/eTransmitting on: 0 07/01/2024 03:16 PM EDT
--- OUTSIDE RECORDS SUMMARY | 2024-06-18 15:39 | XMS_ITS ---
Author Name Auto Generated Organization OHIP Support Name Relationship Address Phone BALWINDER, ZOFIA Next of Kin Unknown + BALWINDER, ZOFIA Next of Kin Unknown + BALWINDER, ZOFIA Next of Kin Unknown + TRIMARCHE, SHERRY Next of Kin Unknown [phone] TRIMARCHE, SHERRY Next of Kin Unknown [phone] TRIMARCHE, SHERRY Next of Kin Unknown [phone] Balwinder, [place] [address] [phone] Trimarche, [place] [address] + BALWINDER, ZOFIA Next of Kin Unknown + BALWINDER, ZOFIA Next of Kin Unknown + BALWINDER, ZOFIA Next of Kin Unknown + TRIMARCHE, SHERRY Next of Kin Unknown [phone] TRIMARCHE, SHERRY Next of Kin Unknown [phone] TRIMARCHE, SHERRY Next of Kin Unknown [phone] BALWINDER, ZOFIA Next of Kin Unknown + BALWINDER, ZOFIA Next of Kin Unknown + BALWINDER, ZOFIA Next of Kin Unknown + TRIMARCHE, SHERRY Next of Kin Unknown [phone] TRIMARCHE, SHERRY Next of Kin Unknown [phone] TRIMARCHE, SHERRY Next of Kin Unknown [phone] BALWINDER, ZOFIA Next of Kin Unknown + BALWINDER, ZOFIA Next of Kin Unknown + BALWINDER, ZOFIA Next of Kin Unknown + TRIMARCHE, SHERRY Next of Kin Unknown [phone] TRIMARCHE, SHERRY Next of Kin Unknown [phone] TRIMARCHE, SHERRY Next of Kin Unknown [phone] BALWINDER, ZOFIA Next of Kin Unknown + BALWINDER, ZOFIA Next of Kin Unknown + BALWINDER, ZOFIA Next of Kin Unknown + TRIMARCHE, SHERRY Next of Kin Unknown [phone] TRIMARCHE, SHERRY Next of Kin Unknown [phone] TRIMARCHE, SHERRY Next of Kin Unknown [phone] BALWINDER, ZOFIA Next of Kin Unknown + TRIMARCHE, SHERRY Next of Kin Unknown [phone] BALWINDER, ZOFIA Next of Kin Unknown + TRIMARCHE, SHERRY Next of Kin Unknown [phone] BALWINDER, ZOFIA Next of Kin Unknown + TRIMARCHE, SHERRY Next of Kin Unknown [phone] BALWINDER, ZOFIA Next of Kin Unknown + TRIMARCHE, SHERRY Next of Kin Unknown [phone] BALWINDER, ZOFIA Next of Kin Unknown + TRIMARCHE, SHERRY Next of Kin Unknown [phone] BALWINDER, ZOFIA Next of Kin Unknown + TRIMARCHE, SHERRY Next of Kin Unknown [phone] BALWINDER, ZOFIA Next of Kin Unknown + TRIMARCHE, SHERRY Next of Kin Unknown [phone] BALWINDER, ZOFIA Next of Kin Unknown + TRIMARCHE, SHERRY Next of Kin Unknown [phone] BALWINDER, ZOFIA Next of Kin Unknown + TRIMARCHE, SHERRY Next of Kin Unknown [phone] [place] [address] [phone] Trimnolan, [place] [address] + TRIMARCHE, SHERRY Next of Kin [place] [phone] TRIMARCHE, SHERRY Next of Kin [place] [phone] TRIMARCHE, SHERRY Next of Kin [place] [phone] TRIMARCHE, SHERRY Next of Kin [place] [phone] Care Team Providers Care Bdc Manager Name Role Phone ALYSIA CASTRO Attending Unavailable GILLMOR, MAGDY Referring Unavailable BIEDENBACH, ALYSIA Martel Referring Unavailable BIEDENBACH, ALYSIA Martel Attending Unavailable GILLMOR, MAGDY Referring Unavailable BIEDENBACH, ALYSIA Martel Attending Unavailable GILLMOR, MAGDY Referring Unavailable BIEDENBACH, ALYSIA Martel Attending Unavailable BIEDENBACH, ALYSIA Martel Referring Unavailable GILLMOR, MAGDY Attending Unavailable RAMBASEK, JANY Candelaria Attending Unavailable RAMBASEK, JANY Candelaria Attending Unavailable RAMBASEK, JANY Candelaria Referring Unavailable BIEDENBACH, ALYSIA Martel Attending Unavailable GILLMOR, MAGDY Referring Unavailable RAMBASEK, JANY Candelaria Attending Unavailable BIEDENBACH, ALYSIA Martel Attending Unavailable GILLMOR, MAGDY Referring Unavailable BIEDENBACH, ALYSIA Martel Attending Unavailable NILLPuneet Attending Unavailable NILL, Puneet Bailey Attending Unavailable NILL, Puneet Bailey Attending Unavailable Shea Singer Referring Unavailable NILL, Puneet Bailey Referring Unavailable NILL, Puneet Bailey Admitting Unavailable NILL, Puneet Bailey Attending Unavailable DAMION WILLIAMSON Attending Unavailable DAMION WILLIAMSON Referring Unavailable BRADFORD SINGERLAS M Primary Care Unavailable CUCA PAULINO Referring Unavailable SHEA SINGER M Primary Care Unavailable DAMION WILLIAMSON Attending Unavailable DAMION WILLIAMSON Referring Unavailable HOBRADFORD BernardLAS M Primary Care Unavailable CUCA PAULINO W Referring Unavailable HOSegundo, SHEA M Primary Care Unavailable NilPuneet anderson Attending Unavailable Puneet Black Admitting Unavailable Maynor Morelos Admitting Unavailable Maynor Morelos Attending Unavailable Shea Singer M Primary Care Unavailable PROBLEMS DATE TYPE CONDITION / CODE ATTENDING STATUS [facility] 05/28/2024 Unknown Type 2 diabetes mellitus without complications / E11.9(ICD-10) Maynor Morelos [facility] 08/28/2023 Unknown Acquired absence of kidney / Z90.5(ICD-10) [facility] 08/28/2023 Admitting diagnosis Malignant neoplasm of left kidney, except renal pelvis / C64.2(ICD-10) [facility] 08/28/2023 Admitting diagnosis Acquired absence of kidney / Z90.5(ICD-10) [facility] 05/22/2023 Unknown Elevated prostat e specific antigen (PSA) / R97.20(ICD-10) DAMION WILLIAMSON [place] 08/21/2023 Unknown Malignant neopla sm of left kidney, except renal pelvis / C64.2(ICD-10) DAMION WILLIAMSON [place] PROCEDURES No Procedure Records Found RESULTS BASIC METABOLIC PANEL Collected: 05/28/2024 9:21 AM Status: F Source: [facility] TYPE CODE TESTS RESULT OUT OF RANGE REFERENCE UNITS LAB GLU Glucose 89 Normal 70-100 mg/dL Result Comment: Random Gluco se Reference Range is dependent on time and content of last meal. Glucose of more than 200 mg/dL in a nonstressed, ambulatory subject supports the diagnosis of Diabetes Mellitus. ADA recommended reference range LAB BUN Blood Urea Nitrogen 22 Normal 7-25 mg/dL LAB CREATT Creatinine 1.36 High 0.70-1.30 mg/dL LAB GFReNR Estimated GFR 59.207 mL/Min LAB NA Sodium 140 Normal 136-145 mmol/L LAB K Potassium 4.5 Normal 3.5-5.1 mmol/L LAB CL Chloride 108 High 98-107 mmol/L LAB CO2 Carbon Dioxide 26.8 Normal 21.0-31.0 mmol/L LAB GAP Anion Gap 9.7 Normal 6.0-15.0 meq/L LAB CA Calcium 9.4 Normal 8.6-10.3 mg/dL Performed By: #### A1C WTH e A, ALT, BMP, AST, LIPID, T4F, TSH3 #### [facility] [address] ASPARTATE AMINO TRANSFERASE Collected: 05/28/2024 9:2 1 AM Status: F Source: [facility] TYPE CODE TESTS RESULT OUT OF RANGE REFERENCE UNITS LAB AST Aspartate Amino Transferase 33 Normal 13-39 U/L Performed By: #### A1C WTH e A, ALT, BMP, AST, LIPID, T4F, TSH3 #### [facility] [address] [place] [id number] [facility] ALANINE AMINOTRANSFERASE Collected: 05/28/2024 9:21 A M Status: F Source: [facility] TYPE CODE TESTS RESULT OUT OF RANGE REFERENCE UNITS LAB ALT Alanine Aminotransferase 40 Normal 7-52 U/L Performed By: #### A1C WTH e A, ALT, BMP, AST, LIPID, T4F, TSH3 #### [facility] [address] [place] [id number] [facility] LIPID PANEL Collected: 05/28/2024 9:21 AM Status: F Source: [facility] TYPE CODE TESTS RESULT OUT OF RANGE REFERENCE UNITS LAB CHOL Cholesterol 156 Normal 140-200 mg/dL Result Comment: Chol less th an 200 mg/dl low risk Chol 201-239 mg/dl borderline risk Chol 240 mg/dl and greater high risk LAB HDL HDL Cholesterol 34 Normal 23-92 mg/dL Result Comment: HDL CHOL ATP -III CLASSIFICATION Cardiovascular Risk HDL > or equal to 60 mg/dL LOW HDL < 40 mg/dL HIGH LAB TRIG W REF Triglyceride w/Reflex 99 Normal 0-149 mg/dL Result Comment: TRIG ATP III CLASSIFICATION TRIG less than 150 mg/dL Normal TRIG 150-199 mg/dL Borderline high TRIG 200-500 mg/dL High TRIG greater than 500 mg/dL Very high Standard traceable to the Center for Disease Conrtrol and Prevention (CDC) test method. LAB LDLC LDL Cholesterol,Calc ulated 102 High 0-100 mg/dL Result Comment: LDL ATP III CLASSIFICATION LDL less than 100 mg/dL Optimal LDL 100-129 mg/dL Near or above optimal LDL 130-159 mg/dL Borderline high LDL 160-189 mg/dL High LDL greater than 189 mg/dL Very high LAB VLDL VLDL CHOLESTEROL 19 mg/dL LAB CHLHDL Chol/HDL Ratio 4.6 <5.0 Performed By: #### A1C WTH e A, ALT, BMP, AST, LIPID, T4F, TSH3 #### [facility] [address] [place] [place] [id number] [facility] FREE T4 (FREE THYROXINE) Collected: 9:21 AM Status: F Source: [facility] TYPE CODE TESTS RESULT OUT OF RANGE REFERENCE UNITS LAB T4F Free T4 (Free Thyroxine) 0.91 Normal 0.61-1.12 ng/dL Performed By: #### A1C WTH e A, ALT, BMP, AST, LIPID, T4F, TSH3 #### [place] [id number] [facility] THYROID STIMULATING HORMONE Collected: 05/28/2024 9:2 1 AM Status: F Source: [facility] TYPE CODE TESTS RESULT OUT OF RANGE REFERENCE UNITS LAB TSH3 Thyroid Stimulating Hormone 1.34 Normal 0.45-5.33 u[iU]/mL Result Comment: PERFORMED BY : [place] [id number] PATHOLOGIST PHONE ENGINEER SOLIS ROMANO M.D. Performed By: #### A1C WTH e A, ALT, BMP, AST, LIPID, T4F, TSH3 #### [place] [id number] [facility] A1C WITH ESTIMATED AVERAGE GLU Collected: 05/28/2024 9:21 AM Status: F Source: [facility] [place] TYPE CODE TESTS RESULT OUT OF RANGE REFERENCE UNITS LAB .A1C Hemoglobin A1C 5.5 Normal 4.3-5.6 % Result Comment: Increased ri sk for diabetes: 5.7 - 6.4 diabetes: >6.4 glycemic control for adults with diabetes: <7.0 LAB eAG Estimated Average Glucose 111 mg/dL Result Comment: PERFORMED BY : [address] [address] PATHOLOGIST PHONE ENGINEER SOLIS ROMANO M.D. Performed By: #### A1C WTH e A, ALT, BMP, AST, LIPID, T4F, TSH3 #### [place] [id number] [facility] CT MAXILLOFACIAL WO IV CONTRAST Observed: 05/18/2024 3:28 PM Status: F Source: [facility] EPIC HISTORY: Sinusitis. TECHNIQUE: Spiral high resolution axial unenhanced CT images were obtained through the paranasal sinuses with sagittal, coronal reconstructions. All CT scans at this facility use dose modulation, iterative reconstruction, and/or weight based dosing when appropriate to reduce radiation dose to as low as reasonably achievable. COMPARISON: 03/18/2024. RESULT: Sinus Chambers: Extensive paranasal sinus disease, overall slightly improved compared to prior study. Interval decreased opacification of the maxillary sinuses, which are nearly completely occluded on the prior study. Near complete opacification of the ethmoid air cells, minimally changed from prior. Near complete opacification of the sphenoid sinuses, minimally changed from prior. Hypoplastic frontal sinuses with minimal thickening, similar to prior. Nasal Cavities: Left deviation, similar to prior. Developmental Anomalies: Presellar type pneumatization, similar to prior. Ostiomeatal Complex: Occluded bilaterally. Other: The visualized mastoid air cells and middle ear cavities are clear. The soft tissues of the face and orbits are within normal limits within the limitations of the study. IMPRESSION: Paranasal sinus disease as discussed, with overall slight improvement in the maxillary sinus opacification compared to prior. ELECTRONICALLY SIGNED BY: Tuan Choi MD CT MAXILLOFACIAL WO IV CONTRAST Observed: 03/18/2024 3:23 PM Status: F Source: [facility] EPIC HISTORY: Sinusitis, not impr oving TECHNIQUE: Spiral high resolution axial unenhanced CT [...] prior. ELECTRONICALLY SIGNED BY: Tuan Choi MD CT SINUS WO Observed: 01/23/2024 11:31 AM Status: F Source: [facility] EPIC Exam: CT SINUS WO History: sinusitis Technique: [...] disease as detailed. ELECTRONICALLY SIGNED BY: Demetri Smith DO GENERAL SURGERY OFFICE/CLINI C NOTE Observed: 10/01/2023 8:31 PM Status: F Source: [facility] General Surgery Office/Clini c Note Chief Complaint post operative follow up [...] disease: Father and Sister. Ovarian cancer: Mother. Result Comment: Electronical ly Signed By: EVAN SARAH, Puneet Bailey\.br\Date and Time Signed: 10/01/23 20:32 EDT REMINDERS Observed: 10/01/2023 4:00 PM Status: F Source: [facility] Reminders From: Pascale Copeland LPN To: GSN - Clinical; Sent: 10/01/2023 16:00:51 EDT Show up: 08/16/2033 07:00:00 EDT Subject: colonoscopy recall Due Date/Time: 09/16/2033 07:00:00 EDT Reminder/Recall Patient due for screening colonoscopy 09/16/2033. AMBULATORY VISIT SUMMARY Observed: 09/30 3:54 PM Status: F Source: [facility] Ambulatory Visit Summary CLARENCE CHASE :1960 Visit Date:10/01/2023 Ambulatory Visit Instructions Your Care Team Attending Physician - EVAN SARAH, Puneet Bailey Primary Care Physician - Shea Singer MD This Is Your Medications List amlodipine [...] you for choosing us for your care. PATHOLOGY REQUEST FOR LAB GAL Collected: 09/17/2023 9:42 AM Status: F Source: [facility] Order Comment: PATHOLOGY GI SPECIMEN TYPE CODE TESTS RESULT OUT OF RANGE REFERENCE UNITS LAB PATH TO [facility] Pathology Request for Lab Gal Result Comment: See report. Scanned copy available in EMR. PERFORMED BY: [place] [address] PATHOLOGIST PHONE ENGINEER ROSCOE CASTRO M.D. Performed By: #### PATH TO [facility] #### [address] XR CHEST (2 VW) Observed: 08/28/2023 3:56 PM Status: F Source: [facility] EXAMINATION: TWO XRAY VIEWS OF THE CHEST 08/28/2023 2:25 pm COMPARISON: None. HISTORY: ORDERING SYSTEM PROVIDED HISTORY: Renal cancer, left (HCC) FINDINGS: The lungs appear clear. There are no pulmonary nodules. The heart appears unremarkable. Osteophytes are noted in the thoracic spine. IMPRESSION: No acute cardiopulmonary process. Interpreted by: Rudi Blackwood MD Signed by: Rudi Blackwood MD 08/28/[address] ABDOMEN PELVIS W IV CONTRAST Observed: 08/26/2023 10:33 AM Status: F Source: [facility] EXAMINATION: CT OF THE ABDOMEN AND PELVIS [...] are seen. The prostate gland is enlarged. Peritoneum/Retroperitoneum: The abdominal aorta is not aneurysmal. There [...] by: Rogelio Bartlett MD 08/26/23 Final result BUN + CREATININE Collected: 3:35 PM Status: F Source: [facility] TYPE CODE TESTS RESULT OUT OF RANGE REFERENCE UNITS LAB BUN(LOINC) BUN (Urea N) 14 8-23 mg/dL LAB CRE(LOINC) Creatinine 1.3 High 0.7-1.2 mg/dL LAB EGFR(LOINC) eGFR 63 >60 mL/min/1. 73m2 Result Comment: These results are not intended [...] affects renal tubular secretion. Performed By: #### BUNCRT ## ## [facility] [address] [place] [address] Carbon Grinder: Giovanni Haro MD #### PSAD #### [place] [id number] [place] [address] Carbon Grinder: Bk Guerrero MD PSA, DIAGNOSTIC Collected: 08/21/2023 3:35 PM Status : F Source: [facility] TYPE CODE TESTS RESULT OUT OF RANGE REFERENCE UNITS LAB PSA(LOINC) Prostatic Spec. Ag 4.30 High 0.00-4.00 ng/mL Result Comment: The Luther E CLIA assay is used. Results obtained with different assay methods cannot be used interchangeably. Performed By: #### BUNCRT ## ## [facility] [address] [place] [address] Carbon Grinder: Giovanni Haro MD #### PSAD #### [facility] [address] [place] [address] Carbon Grinder: Bk Guerrero MD CONSENT FOR PROCEDURE/SURGERY Observed: 08/05/2023 3:29 PM Status: F Source: [facility] [id number]#1.00TIFF MAIN OR PREOPERATIVE RECORD Observed: 8:30 AM Status: C Source: [facility] Holding Area Document Type F T Summary Primary Physician: Puneet BLACK MD Finalized Date/Time: 08/04/23 08:14:07 Pt. Name: CLARENCE CHASE/Sex: 1960 Male Med Rec #: [id number] Physician: Puneet BLACK MD Financial #: [id number] Pt. Type: O Room/Bed: / Admit/Disch: 08/04/23 [...] completed prep at 0300 and remained NPO since/KS,RN Cancelled in preop d/t anesthesia and pt taking ozempic less than 7 days prior/STEFANO,RN Finalized By: Elizabeth Sorto RN Document Signatures Signed By: Elizabeth Sorto RN 08/04/23 07:43 Elizabeth Sorto RN 08/04/23 08:14 CONSENT FOR TREATMENT Observed: 08/04/19 7:36 AM Status: F Source: [facility] [id number]#1.00TIFF HISTORY AND PHYSICAL Observed: 7:33 AM Status: F Source: [facility] Patient: CLARENCE CHASE Age: 62 years Sex: Male : 1960 Associated Diagnoses: None Author: Puneet BLACK MD Subjective no changes to H & P Result Comment: Electronical ly Signed By: Puneet BLACK MD\.br\Date and Time Signed: 08/04/23 07:34 EDT GENERAL SURGERY OFFICE/CLINI C NOTE Observed: 07/14/2023 2:28 PM Status: F Source: [facility] Chief Complaint consultation for positive occult stool HPI Staff 62 year old male presents on consultation from Dr. Singer for positive occult stool. Denies noting blood [...] disease: Father and Sister. Ovarian cancer: Mother. Result Comment: Electronical ly Signed By: Puneet BLACK MD\.br\Date and Time Signed: 07/14/23 14:28 EDT AMBULATORY VISIT SUMMARY Observed: 07/13 2:27 PM Status: F Source: [facility] CLARENCE CHASE :1960 Visit Date:07/14/2023 Ambulatory Visit Instructions Your Diagnosis Positive fecal occult blood test Your Care Team Attending Physician - Puneet BLACK MD Primary Care Physician - Shea Singer MD Referring Physician - Shea Singer MD This Is Your Medications List Contact [...] you for choosing us for your care. CONSENT FOR PROCEDURE/SURGERY Observed: 07/14/2023 11:24 AM Status: F Source: [facility] [id number]#1.00TIFF PHYSICIAN REFERRAL Observed: 06/27/2023 11:24 AM Status: F Source: [facility] [id number]#1.00TIFF ALLERGIES DATE TYPE / CODE NAME / CODE REACTION SEVERITY SOURCE 11/09/2022 Drug Allergy/330994 002(SNOMED CT) No Known Allergies/[id number](RX NORM) Unknown [facility] /[id number](S NOMED CT) nitroglycerin [id number] [facility] ENCOUNTERS ADMIT/DISCHARGE ACCOUNT NUMBER ADMITTING ENCOUNTER CLASS LOCATION SOURCE 06/18/2024/06/19/19 [id number] Ambulatory Building:NOM S [facility] EPIC 05/28/2024/05/29/19 [id number] [facility] 05/18/2024/05/19/19 [id number] [facility] 05/13/2024/05/14/19 25 [id number] Ambulatory Building:NOM S NB ENT [facility] EPIC 04/09/2024/04/09/19 25 [id number] Ambulatory Building:NOM S [facility] EPIC 03/26/2024/03/26/19 25 [id number] Ambulatory Building:NOM S [facility] EPIC 03/18/2024/03/18/19 25 [id number] Ambulatory Building:NOM SST [facility] EPIC 03/05/2024/03/05/19 25 [id number] Ambulatory Building:NOM S ENT [facility] EPIC 02/13/2024/02/12/19 25 [id number] Ambulatory Building:NOM S ENT [facility] EPIC 02/12/2024/02/11/19 25 [id number] Ambulatory Building:NOM S [facility] EPIC 01/30/2024/01/30/20 24 [id number] Ambulatory Building:NOM S ENT [facility] EPIC 01/23/2024/01/23/20 24 [id number] Ambulatory Building:NOM SSHCT [facility] EPIC 01/12/2024/01/12/20 24 [id number] Ambulatory Building:NOM S SWS ALL [facility] EPIC 12/17/2023/12/17/19 24 [id number] Ambulatory Building:NOM S SWS ALL [facility] EPIC 11/12/2023/11/12/19 24 [id number] Ambulatory Building:BSR NEURO [facility] EPIC 10/01/2023/10/01/19 24 [id number] [place] 09/17/2023/09/17/19 24 [id number] [facility]une[facility] Black [facility] 09/17/2023/09/17/19 24 [id number] Ambulatory CD:[id number]:CD :[id number] [facility] 08/28/2023/08/30/19 24 [id number] Ambulatory Building:[facility] 08/28/2023/08/30/19 24 [id number] Ambulatory Building:[facility] 08/21/2023/08/21/19 24 [id number] Ambulatory Building:[facility] 08/21/2023/08/23/19 24 [id number] Ambulatory Building:[facility] 08/04/2023/08/04/19 24 [id number] Puneet BLACK [facility] 07/14/2023/07/14/19 24 [id number] [place] [place]: CD:[id number] [address] [place] [address] 06/30/2023 [id number] Ambulatory [place]:[facility] 06/27/2023 [id number] Ambulatory [place] [facility] PAYERS ENCOUNTER GUARANTOR PAYER SUBSCRIBER SOURCE 06/18/2024 CLARENCE NGUYỄNOB: [id number] ENRIQUE LOGAN [address]Gpu: (HP) Primary Insurance:MEDICAL MUTUALPolicy Number: [id number] Date:2023-02-10 CLARENCE Candelaria JASWANTODOB: [id number] [place] [address] [facility] EPIC 06/18/2024 Secondary Insurance:ROYAL BENEFITSPolicy Number: [id number] Date:2023-12-12 CLARENCE Candelaria JASWANTODOB: [id number] [place] [address] [facility] EPIC 05/28/2024 Clarence Candelaria [id number] [facility] [place] [address]Zsb: (HP) Primary Insurance:MMOPolicy Number: [id number] Date:[id number] [place] [address]KA: Clarence Candelaria JaswantoDOB: [id number] Geronimo [facility] [place] [address]Oll: () [facility] 05/28/2024 Secondary Insurance:[place] BenefitsPolicy Number: [id number] Date:3913-40-20[address], [place] [address]JK: Clarence Candelaria JaswantoDOB: [id number] Katharinelorenashelia [place] [address]Azq: () [facility] 05/28/2024 Tertiary Insurance:Self PayPolicy Number: Effective Date:2024-05-28 [facility]/18/2024 CLARENCE Candelaria JASWANTODOB: [id number] GERONIMO CALDERABASILIOSegundo[place] [address]Jbt: () Primary Insurance:MEDICAL MUTUALPolicy Number: [id number] Date:2023-02-10 CLARENCE Candelaria JASWANTODOB: [id number] [place] [address] [facility] EPIC 05/18/2024 Secondary Insurance:ROYAL BENEFITSPolicy Number: [id number] Date:2023-12-12 CLARENCE Candelaria OTTODOB: [id number] [place] [address] [facility] EPIC 05/13/2024 CLARENCE Candelaria OTTODOB: [id number] [place] [address]Dna: (HP) Primary Insurance:MEDICAL MUTUALPolicy Number: [id number] Date:2023-02-10 CLARENCE Candelaria OTTODOB: [id number] [place] [address] [facility] EPIC 05/13/2024 Secondary Insurance:ROYAL BENEFITSPolicy Number: [id number] Date:2023-12-12 CLARENCE Candelaria OTTODOB: [id number] [place] [address] [facility] EPIC 04/09/2024 CLARENCE Candelaria OTTODOB: [place] [address]Txx: (HP) Primary Insurance:MEDICAL MUTUALPolicy Number: [id number] Date:2023-02-10 CLARENCE Candelaria OTTODOB: [id number] [place] [address] [facility] EPIC 04/09/2024 Secondary Insurance:ROYAL BENEFITSPolicy Number: [id number] Date:2023-12-12 CLARENCE Candelaria OTTODOB: [id number] [place] [address] [facility] EPIC 03/26/2024 CLARENCE Candelaria OTTODOB: [id number] [place] [address]Kjc: (HP) Primary Insurance:MEDICAL MUTUALPolicy Number: [id number] Date:2023-02-10 CLARENCE Candelaria OTTODOB: [id number] [place] [address] [facility] EPIC 03/26/2024 Secondary Insurance:ROYAL BENEFITSPolicy Number: [id number] Date:2023-12-12 CLARENCE Candelaria OTTODOB: [id number] [place] [address] [facility] EPIC 03/18/2024 CLARENCE Candelaria OTTODOB: [id number] [place] [address]Eut: (HP) Primary Insurance:MEDICAL MUTUALPolicy Number: [id number] Date:2023-02-10 CLARENCE Candelaria OTTODOB: [id number] [place] [address] [facility] EPIC 03/18/2024 Secondary Insurance:ROYAL BENEFITSPolicy Number: [id number] Date:2023-12-12 CLARENCE Candelaria OTTODOB: [id number] [place] [address] [facility] EPIC 03/05/2024 CLARENCE Candelaria OTTODOB: [place] [address]Aok: (HP) Primary Insurance:MEDICAL MUTUALPolicy Number: [id number] Date:2023-02-10 CLARENCE Candelaria OTTODOB: [id number] [place] [address] [facility] EPIC 03/05/2024 Secondary Insurance:ROYAL BENEFITSPolicy Number: [id number] Date:2023-12-12 CLARENCE Candelaria OTTODOB: [id number] [place] [address] [facility] EPIC 02/13/2024 CLARENCE Candelaria OTTODOB: [place] [address]Sxw: (HP) Primary Insurance:MEDICAL MUTUALPolicy Number: [id number] Date:2023-02-10 CLARENCE Candelaria OTTODOB: [id number] [place] [address] [facility] EPIC 02/13/2024 Secondary Insurance:ROYAL BENEFITSPolicy Number: [id number] Date:2023-12-12 CLARENCE Candelaria OTTODOB: [id number] [place] [address] [facility] EPIC 02/12/2024 CLARENCE Candelaria OTTODOB: [id number] [place] [address]Wir: (HP) Primary Insurance:MEDICAL MUTUALPolicy Number: [id number] Date:2023-02-10 CLARENCE Candelaria OTTODOB: [id number] [place] [address] [facility] EPIC 02/12/2024 Secondary Insurance:ROYAL BENEFITSPolicy Number: [id number] Date:2023-12-12 CLARENCE Candelaria OTTODOB: [id number] [place] [address] [facility] EPIC 01/30/2024 CLARENCE Candelaria OTTODOB: [place] [address]Kcq: (HP) Primary Insurance:MEDICAL MUTUALPolicy Number: [id number] Date:2023-02-10 CLARENCE Candelaria OTTODOB: [id number] [place] [address] [facility] EPIC 01/30/2024 Secondary Insurance:ROYAL BENEFITSPolicy Number: [id number] Date:2023-12-12 CLARENCE Candelaria OTTODOB: [id number] [place] [address] [facility] EPIC 01/23/2024 CLARENCE Candelaria OTTODOB: [place] [address]Fkg: (HP) Primary Insurance:MEDICAL MUTUALPolicy Number: [id number] Date:2023-02-10 CLARENCE Candelaria OTTODOB: [id number] [place] [address] [facility] EPIC 01/23/2024 Secondary Insurance:ROYAL BENEFITSPolicy Number: [id number] Date:2023-12-12 CLARENCE Candelaria OTTODOB: [id number] [place] [address] [facility] EPIC 01/12/2024 CLARENCE Candelaria OTTODOB: [id number] [place] [address]Kvd: (HP) Primary Insurance:MEDICAL MUTUALPolicy Number: [id number] Date:2023-02-10 CLARENCE Candelaria OTTODOB: [id number] [place] [address] [facility] EPIC 01/12/2024 Secondary Insurance:ROYAL BENEFITSPolicy Number: [id number] Date:2023-12-12 CLARENCE Candelaria OTTODOB: [id number] [place] [address] [facility] EPIC 12/17/2023 CLARENCE Candelaria OTTODOB: [place] [address]Vhm: (HP) Primary Insurance:MEDICAL MUTUALPolicy Number: [id number] Date:2023-02-10 CLARENCE Candelaria OTTODOB: [id number] [place] [address] [facility] EPIC 12/17/2023 Secondary Insurance:ROYAL BENEFITSPolicy Number: [id number] Date:2023-12-12 CLARENCE Candelaria OTTODOB: [id number] [place] [address] [facility] EPIC 11/12/2023 CLARENCE Candelaria OTTODOB: [place] [address]Dpd: (HP) Primary Insurance:MEDICAL MUTUALPolicy Number: [id number] Date:2023-02-10 CLARENCE Candelaria OTTODOB: [id number] [place] [address] [facility] EPIC 10/01/2023 CLARENCE Candelaria OTTODOB: [id number] [place] RDTel: ~~(4 1 (HP) Primary Insurance:MEDICAL MUTUALPolicy Number: [id number] Date:3797-24-12[address], [place] [address]EJ: CLARENCE BRONSON [facility] 10/01/2023 Secondary Insurance:Miscellaneou s Insurance CompanyPolicy Number: [id number] Date:2023-07-14 CLARENCE Bari BRONSON [facility] 09/17/2023 Clarence Michaudo6606 [place] [facility] [[email or web address]][place] [address]Htw: (HP) Primary Insurance:Self PayPolicy Number: Effective Date:2023-09-17 [facility] CLARENCE Candelaria OTTODOB: [id number] DANA RDTel: ~~(4 1 (HP) Primary Insurance:MEDICAL MUTUALPolicy Number: [id number] Date:5871-68-25[address] [address], [place] [address]MX: CLARENCE BRONSON [facility] 09/17/2023 Secondary Insurance:Miscellaneou s Insurance CompanyPolicy Number: [id number] Date:2023-07-14 CLARENCE BRONSON [facility] 08/28/2023 CLARENCE OTTODOB: [id number] G[place] [facility]ATION[facility], [place] [address]Wbr: (HP) Primary Insurance:MEDICAL MUTUALPolicy Number: [id number] Date:2013-11-21.[address], [place] [address]PU: CLARENCE OTTODOB: [id number] [place], [place] [address]Ova: (HP) [facility] 08/28/2023 Secondary Insurance:ROYAL BENEFITSPolicy Number: [id number] Date:2023-02-10[address], [place] [address]YL: x112 CLARENCE OTTODOB: [id number] [place] CALDERARATCLIFFSegundoMED[place], [place] [address]Mjr: (HP) [facility] 08/28/2023 CLARENCE OTTODOB: [place] [address]Lut: (HP) Primary Insurance:MEDICAL MUTUALPolicy Number: [id number] Date:[address] [place] [address]LZ: CLARENCE OTTODOB: [id number] [place] [address]Tah: (HP) [facility] 08/28/2023 Secondary Insurance:ROYAL BENEFITSPolicy Number: [id number] Date:2023-02-[address] [place] [address]XT: x112 CLARENCE OTTODOB: [id number] [place] [address]Sfy: (HP) [facility] 08/21/2023 ARMSTRONG OTTODOB: [place] [address]Tri: (HP) Primary Insurance:MEDICAL MUTUALPolicy Number: [id number] Date:2013-11-21[address] [place] [address]NC: CLARENCE OTTODOB: [id number] [place], [place] [address]Wyj: (HP) [facility] 08/21/2023 Secondary Insurance:ROYAL BENEFITSPolicy Number: [id number] Date:2023-02-[address] [place] [address]OY: x112 CLARENCE OTTODOB: [id number] [place] [address]Wyj: (HP) [facility] 08/21/2023 CLARENCE OTTODOB: JODI MEYERCAROLINEM[place], [place] [address]Bnb: (HP) Primary Insurance:MEDICAL MUTUALPolicy Number: [id number] Date:2013-11-21.[address], [place] [address]XO: CLARENCE OTTODOB: [id number] [place], [place] [address]Ibf: (HP) [facility] 08/21/2023 Secondary Insurance:ROYAL BENEFITSPolicy Number: [id number] Date:2023-02-10 [address], [place] [address]RU: x112 CLARENCE OTTODOB: [id number] [place], [place] [address]Kqb: (HP) [facility] 08/04/2023 CLARENCE Candelaria OTTODOB: [id number] [facility] RDTel: (HP) Primary Insurance:MEDICAL MUTUALPolicy Number: [id number] Date:7859-37-89[address] [address], [place] [address]VZ: [facility] 08/04/2023 Secondary Insurance:Miscellaneou s Insurance CompanyPolicy Number: [id number] Date:2023-07-14 ARMSTRONG Bari [facility] 07/14/2023 CLARENCE Candelaria OTTODOB: [id number] [facility] RDTel: (HP) Primary Insurance:MEDICAL MUTUALPolicy Number: [id number] Date:4131-69-09[address] [address], [place] [address]DS: CLARENCE Bari [facility] 07/14/2023 Secondary Insurance:Miscellaneou s Insurance CompanyPolicy Number: [id number] Date:2023-02-10 [facility]
--- OUTSIDE RECORDS SUMMARY | 2024-06-18 15:45 | XMS_ITS | Encounter Summary ---
Author Organization [facility] Address [address] [facility] [place] [address] Care Team Providers Care Nc Machinist Name Role Phone Stalin Singer MD Primary Care Provider [phone] Rachel Mckeon PLASTER BLOCK LAYER Unavailable [phone] Leon Maria DO Unavailable [phone] Reason for Visit * Reason Comments Sinusitis CT results Encounter Details Date Type Department Care Team (Late st Contact Info) Description 06/18/2024 3:45 PM EDT Office Visit [facility] [address] [place] [address] Leon Maria DO [address] [place] [address] Sinusitis, unspecified chronicity, unspecified location (Primary Dx); Chronic anticoagulation; Nasal congestion Social History Tobacco Use Types Packs/Day Years Used Date Smoking Tobacco: Never Smokeless Tobacco: Never Tobacco Cessation:Counseling Given: Not Answered Alcohol Use Standard Drinks/Week Comments Never 0 (1 standard drink = 0.6 oz pur e alcohol) Sex and Gender Information Value Date Recorded Sex Assigned at Not on file Legal Sex Male 2:00 PM EDT Gender Identity Not on file Sexual Orientation Not on file documented as of this encounter Last Filed Vital Signs Vital Sign Reading Time Taken Comments Blood Pressure - - Pulse - - Temperature - - Respiratory Rate - - Oxygen Saturation - - Inhaled Oxygen Concentration - - Weight 97.5 kg (215 lb) 06/18/2024 3:39 PM EDT Height 167.6 cm (5' 6 ) 06/18/2024 3:39 PM EDT Body Mass Index 34.7 06/18/2024 3:39 PM EDT documented in this encounter Progress Notes * Leon Maria, DO - 06/18/2024 3:45 PM EDT Subjective Patient ID: Clarence Flores is a 63 y.o. male who presents for Sinusitis (CT results) Sinusitis This patient presents for recheck of chronic pansinusitis, nasal congestion and chronic anticoagulation. Has been using Xhance for greater than 1 month. Continues to have some symptoms which are severe at times and minimal at others. Describes his drainage to be clear to yellow. Not having any fever. Presents today for further evaluation and treatment Review of Systems Patient not having any fever. Has been blowing his nose with clear to yellow mucus quite frequently. Does describe some nasal congestion and sinus pressure. Denies any shortness of breath. The rest of his review of systems is unchanged Objective ENT Physical Exam General Examination: General overview: Normal, age-appropriate, no evidence of distress Head: Normocephalic, atraumatic Eyes: Pupils are equally round and reactive to light and accommodation, extraocular muscles are intact Ears: External ear architecture within normal limits, ear canals are patent, tympanic membranes areintact. Nose: External nose unremarkable, nares patent, septum intact, septal deviation is noted to the left. Anterior rhinoscopy does reveal evidence of pink mucosa with moderate congestion. No obvious evidence of mucopurulent drainage. Nasal ventilation is reduced. Review of his CT scan does reveal evidence of septal deviation, turbinate enlargement, and bilateral pansinusitis, very limited improvementfrom prior evaluation Oral cavity: Mucosa moist, no evidence of [...] visit: Sinusitis, unspecified chronicity, unspecified location Comments: Discussed the possibility of septoplasty, turbinate reduction, and bilateral image guided functional endoscopic sinus surgery. He will think about it Chronic anticoagulation Comments: patient would need to discontinue his Eliquis prior to surgical intervention. Nasal congestion Comments: Minimal change with maximal medical therapy Septoplasty is recommended. All of the options, risks, and indications of this procedure are reviewed in detail. Risks include but are not limited to bleeding, incomplete repair, septal perforation, infection, serous disability, and . Sinus surgery is recommended. All of the risks, options, aspects, indications, reasonable expectations are reviewed in detail. Risks include but are not limited to bleeding, infection, leakage of brain fluid, injury to the brain, injury to the eye, scar tissue, recurrent disease, serous disability,and . Turbinate reduction is recommended. All of the risks, aspects, options, indications of this procedure are reviewed in detail. The risks include but are not limited to bleeding, infection, poor wound healing, increased nasal dysfunction, nerve injury, increased /decreased sense of smell, serous disab ility, and . documented in this encounter Plan of Treatment Not on file documented as of this encounter Visit Diagnoses Diagnosis Sinusitis, unspecified chronicity, unspecified location- Primary Chronic anticoagulation Encounter for long-term (current) use of 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 Nasal congestion Other diseases of nasal cavity and sinuses documented in this encounter Care Teams Nc Machinist Relationship Specialty Start Date End Date Stalin Singer MD PCP - General Family Medicine 01/30/24 Rachel Mckeon NP [address] [place], [place] Nurse Practitioner Neurology 02/13/24 Leon Maria DO [address] [place] [address] Otolaryngology 02/13/24 documented as of this encounter
--- OUTSIDE RECORDS SUMMARY | 2024-07-01 15:16 | XMS_ITS | Clinical Summary ---
Author Organization [facility] Address [address] [place] [address] Care Team Providers Care Business Office Director Name Role Phone Stalin Singer MD Primary Care Provider [phone] Rachel Mckeon BENEFITS MANAGER Unavailable [phone] Leon Maria DO Unavailable [phone] Allergies Active Allergy Reactions Criticality Noted Date Comments Nitroglycerin 11/26/2018 Other Reaction(s): Hypotension, Other (See Comments), Other: See Comments Medications amLODIPine (Norvasc) 10 MG tablet Take 10 mg by mouth in the morning. 3 Active apixaban (Eliquis) 5 MG tablet Take 5 mg by mouth in the morning and 5 mg in the evening. 4 Active empagliflozin (Jardiance) 10 MG Take 1 tablet by mouth Daily Active metFORMIN (Glucophage) 500 MG tablet Take 500 mg by mouth in the morning and 500 mg in the evening. Take with meals. Active metoprolol succinate XL (Toprol-XL) 100 MG 24 hr tablet Take 150 mg by mouth 4 Active Ozempic, 2 MG/DOSE, 8 MG/3ML solution pen-injector Inject 2 mg under the skin every 7 (seven) days 4 Active spironolactone (Aldactone) 25 MG tablet Take 25 mg by mouth in the morning. 4 Active valsartan (Diovan) 160 MG tablet Take 160 mg by mouth in the morning. 4 Active dilTIAZem CD (Cardizem CD) 120 MG 24 hr capsule Take 120 mg by mouth 4 10/31/19 25 Active doxazosin (Cardura) 4 MG tablet Take 4 mg by mouth at bedtime Active azelastine (Astelin) 0.1 % nasal sprayIndication s:Chronic rhinitis Administer 2 sprays into each nostril in the morning and 2 sprays before bedtime. Use in each nostril as directed. 90 mL 3 4 12/17/19 25 Active Fluticasone-Ume clidin-Vilant (Trelegy Ellipta) 100-62.5-25 MCG/ACT aerosol powderIndicatio ns:Cough variant asthma (CMS/HCC) Inhale 1 puff Daily 3 each 3 4 01/12/20 25 Active ipratropium (Atrovent) 0.06 % nasal sprayIndication s:Acute maxillary sinusitis, recurrence not specified Administer 2 sprays into each nostril in the morning and 2 sprays in the evening and 2 sprays before bedtime. 15 mL 11 4 Active montelukast (Singulair) 10 MG tablet Take 10 mg by mouth Daily 4 Active Active Problems Problem Noted Date Diagnosed Date Leukocytosis 04/09/2024 Resolved Problems Problem Noted Date Diagnosed Date Resolved Date Hyperplastic rectal polyp 01/29/2024 Positive fecal occult blood test 01/29/2024 01/29/2024 Sigmoid diverticulosis 01/29/202401/28 BMI 34.0-34.9,adult 10/31/2023 01/29/20 24 Never smoked tobacco 10/31/2023 024 Paroxysmal atrial fibrillation 10/31/2023 01/29/2024 Elevated PSA 05/22/2023 01/29/2024 BMI 40.0-44.9, adult 01/23/2023 024 Hypertensive left ventricula r hypertrophy, without heart failure 01/22/2023 01/29/2024 Obstructive sleep apnea 01/22/202301/10 Left renal mass 01/17/2023 01/29/2024 Essential hypertension 11/24/202101/28 Diabetes mellitus type II, n on insulin dependent 04/09/2021 01/29/2024 Encounters Date Type Department Care Team Description 07/01/2024 Telephone [facility] [address] [place] [address] Tuan Mendoza RN 06/25/2024 Abstract [facility] [address] [place] [address] Randee Christianson MA 06/18/2024 3:45 PM EDT Office Visit [facility] [address] [place] [address] Leon Maria, Sinusitis, unspecified chronicity, unspecified location (Primary Dx); Chronic anticoagulation; Nasal congestion 06/18/2024 Bamboo flowsheet [facility] [address] [place] [address] Leon Maria, 06/18/2024 Travel 05/18/2024 3:30 PM EDT Ancillary Procedure [facility] [address] [place] [address] Sinusitis, unspecified chronicity, unspecified location 05/18/2024 Travel 05/13/2024 3:45 PM EDT Office Visit [facility] [place] [address] [place] [address] Leon Maria DO Chronic anticoagulation (Primary Dx); Sinusitis, unspecified chronicity, unspecified location; Nasal congestion 05/13/2024 Bamboo flowsheet [facility] [place] [address] [place] [address] Leon Maria, 05/13/2024 Travel 04/09/2024 3:45 PM EST Office Visit [facility] [address] [place] [address] Leon Maria, Sinusitis, unspecified chronicity, unspecified location (Primary Dx); Nasal congestion; Chronic anticoagulation 04/09/2024 Bamboo flowsheet [facility] [address] [place] [address] Leon Maria DO 04/09/2024 Travel from Last 3 Months Family History Medical History Relation Name Comments Alcohol abuse Mother Ovarian cancer Mother Relation Name Status Comments Mother Social History Tobacco Use Types Packs/Day Years [...] on file Sexual Orientation Not on file Last Filed Vital Signs Vital Sign Reading Time Taken Comments Blood Pressure 138/72 11/12/2023 2:50 PM EDT Pulse 69 11/12/2023 2:50 PM EDT Temperature - - Respiratory Rate - - Oxygen Saturation 95% 11/12/2023 2:50 PM EDT Inhaled Oxygen Concentration - - Weight 97.5 kg (215 lb) 06/18/2024 3:39 PM EDT Height 167.6 cm (5' 6 ) 06/18/2024 3:39 PM EDT Body Mass Index 34.7 06/18/2024 3:39 PM EDT Plan of Treatment Not on file Procedures Procedure Name Priority Date/Time Associated Diagnosis Comments CT MAXILLOFACIAL WO IV CONTRAST Routine 05/18/2024 4:02 PM EDT Sinusitis, unspecified chronicity, unspecified location from Last 3 Months Results * CT maxillofacial wo IV contrast (05/18/2024 4:02 PM EDT) Anatomical Region Laterality Modality Head, Neck Computed Tomogra phy 05/19/2024 12:3 9 PM EDT Impressions 05/19/2024 12:44 PM EDT Paranasal sinus disease as discussed, with overall slight improvement in the maxillary sinus opacification compared to prior. ELECTRONICALLY SIGNED BY: Tuan Choi MD Narrative 05/19/2024 12:44 PM EDT HISTORY: Sinusitis. TECHNIQUE: Spiral high resolution axial [...] limits within the limitations of the study. Procedure Note Tuan Choi MD - 05/19/2024 HISTORY: Sinusitis. TECHNIQUE: Spiral high resolution axial unenhanced CT images were obtainedthrough the paranasal sinuses with sagittal, coronal reconstructions. All CT scans at this facility use dose modulation, iterativereconstruction, and/or weight based dosing when appropriate to reduceradiation dose to as low as reasonably achievable. COMPARISON: 03/18/2024. RESULT: Sinus Chambers: Extensive paranasal sinus disease, overall slightlyimproved compared to prior study. Interval decreased opacification of themaxillary sinuses, which are nearly completely occluded on the priorstudy. Near complete opacification of the ethmoid air cells, minimallychanged from prior. Near complete opacification of the sphenoid sinuses,minimally changed from prior. Hypoplastic frontal sinuses with minimalthickening, similar to prior. Nasal Cavities: Left deviation, similar to prior. Developmental Anomalies: Presellar type pneumatization, similar toprior. Ostiomeatal Complex: Occluded bilaterally. Other: The visualized mastoid air cells and middle ear cavities areclear. The soft tissues of the face and orbits are within normal limitswithin the limitations of the study. IMPRESSION: Paranasal sinus disease as discussed, with overall slight improvement inthe maxillary sinus opacification compared to prior. ELECTRONICALLY SIGNED BY: Tuan Choi MD Leon Maria DO IMG CT PROCEDURES Final Res ult from Last 3 Months Insurance [employer]ENEFITS Care Teams Business Office Director Relationship Specialty Start Date End Date Stalin Singer MD PCP - General Family Medicine 01/30/24 Rachel Mckeon NP [address] [place] [address] Nurse Practitioner Neurology 02/13/24 Leon Maria DO [address] [place] [address] Otolaryngology 02/13/24
--- OUTSIDE RECORDS SUMMARY | 2024-07-01 15:16 | XMS_ITS | Encounter Summary ---
Author Organization [facility] Address [address] [facility] [place] [address] Care Team Providers Care Hacksaw Inspector Name Role Phone Stalin Singer MD Primary Care Provider [phone] Rachel Mckeon MANAGER PEST Unavailable [phone] Leon Maria DO Unavailable [phone] Encounter Details Date Type Department Care Team (Late st Contact Info) Description 07/01/2024 Telephone [facility] [address] [place] [address] Tuan Mendoza RN Social History Tobacco Use Types Packs/Day Years Used Date Smoking Tobacco: Never Smokeless Tobacco: Never Alcohol Use Standard Drinks/Week Comments Never 0 (1 standard drink = 0.6 oz pur e alcohol) Sex and Gender Information Value Date Recorded Sex Assigned at Not on file Legal Sex Male 2:00 PM EDT Gender Identity Not on file Sexual Orientation Not on file documented as of this encounter Miscellaneous Notes * Telephone Encounter - Tuan Mendoza RN - 07/01/2024 2:56 PM EDT Left a message for Clarence to call the office. Patient responsibility is $1,087.17 (deductible) documented in this encounter Plan of Treatment Not on file documented as of this encounter Visit Diagnoses Not on filedocumented in this encounter Care Teams Hacksaw Inspector Relationship Specialty Start Date End Date Stalin Singer MD PCP - General Family Medicine 01/30/24 Rachel Mckeon NP [address] [facility] [address] [place] [address] Nurse Practitioner Neurology 02/13/24 Leon Maria DO [address] [place] [address] Otolaryngology 02/13/24 documented as of this encounter
--- OUTSIDE RECORDS SUMMARY | 2024-07-01 15:16 | XMS_ITS | Encounter Summary ---
Author Organization [facility] Address [address] [place] [address] Phone Care Team Providers Care Account Executive Trainee Name Role Phone Stalin Singer MD Primary Care Provider [phone] Andra Ramirez MANAGER SCIENTIFIC-TECHNICAL REPORT WRITER Unavailable [phone] Encounter Details Date Type Department Care Team (Late st Contact Info) Description 09/19/2023 Scanned Document [facility] [address] [place] [phone] Scanning, Generic Provider Social History Tobacco Use Types Packs/Day Years Used Date Smoking Tobacco: Never Smokeless Tobacco: Never Alcohol Use Standard Drinks/Week Comments Never 0 (1 standard drink = 0.6 oz pur e alcohol) Sex and Gender Information Value Date Recorded Sex Assigned at Male 12/16/2022 10:12 AM EST Legal Sex Male 9:26 AM EDT Gender Identity Male 12/16/2022 10:12 AM EST Sexual Orientation Straight 12/16/2022 10 :12 AM EST documented as of this encounter Plan of Treatment Upcoming Encounters Date Type Department Care Team (Late st Contact Info) Description 05/09/2025 4:00 PM EDT Office Visit [facility] [address] [phone] Andra Ramirez, MANAGER SCIENTIFIC-TECHNICAL REPORT WRITER [address] [place] [address] documented as of this encounter Visit Diagnoses Not on filedocumented in this encounter Care Teams Account Executive Trainee Relationship Specialty Start Date End Date Stalin Singer MD [address] [place] [address] PCP - General Family Medicine 11/13/22 Andra Ramirez, MANAGER SCIENTIFIC-TECHNICAL REPORT WRITER [address] [place] [address] [address], [address] [place] [address] PCP - MMO ACO PCP 05/11/24 documented as of this encounter
--- OUTSIDE RECORDS SUMMARY | 2024-07-01 15:16 | XMS_ITS | Encounter Summary ---
Author Organization [facility] Address [address] [place] [address] Care Team Providers Care Bridge Attacher Name Role Phone Stalin Singer MD Primary Care Provider [phone] Reason for Referral * Specialty Diagnoses / Procedures Referred By Contsharmin long Referred To Contact [facility] [address] [place] [phone] Referral ID Status Reason Start Date Expiration Date Visits Re quested Visits Authorized Comments This order was created through External Result Entry Encounter Details Date Type Department Care Team (Late Contact Info) Description 05/12/2023 Orders Only [facility] UROLOGY [address] [place] [phone] Yogi Soto MD Social History Tobacco Use Types Packs/Day Years Used Date Smoking Tobacco: Never Assessed Sex and Gender Information Value Date Recorded Sex Assigned at Not on file Legal Sex Male 1:22 PM EDT Gender Identity Male 05/22/2023 3:10 PM EDT Sexual Orientation Not on file documented as of this encounter Plan of Treatment Upcoming Encounters Date Type Department Care Team (Latest Contact Info) Description 07/12/2024 4:00 PM EDT Office Visit [facility] [address] [place] [phone] Cristiano Hay MD [address] [place] [address], [address] [place] [address] 3M PSA 08/20/2024 Hospital Encounter [facility] LAB [address] [place], [place] [phone] 08/27/2024 4:00 PM EDT Appointment [facility] Ultrasound [address] [place], [place] [phone] EPIC / ISA W OFC KACEY 09/06/2024 4:00 PM EDT Office Visit [facility] UROLOGY Part of [facility] [address] [facility] [address] [place] [address] Cristiano Hay MD [address] [facility], [address] [place], [place] [phone] 1wk US & chest xray documented as of this encounter Procedures Procedure Name Priority Date/Time Associated Diagnosis Comments AMB EXTERNAL REFERRAL TO UROLOGY Routine 05/05/2023 8:38 AM EDT CBC Routine 04/26/2023 8:41 AM EDT documented in this encounter Results * Amb External Referral To Urology (05/05/2023 8:38 AM EDT) Historical Provider CHRaymond AMB EXT REFERRALS Fin al Result * CBC (04/26/2023 8:41 AM EDT) Blood BLOOD SPECIMEN / Unknown Historical Provider HEMATOLOGY ORDERABLES Fin al Result documented in this encounter Visit Diagnoses Not on filedocumented in this encounter Care Teams Bridge Attacher Relationship Specialty Start Date End Date Stalin Singer MD [address] [place] [address] PCP - General Family Medicine 05/23/23 documented as of this encounter
--- OUTSIDE RECORDS SUMMARY | 2024-07-01 15:16 | XMS_ITS | Encounter Summary ---
Author Organization [facility] Address [address] [place] [address] Care Team Providers Care Warp Coiler Name Role Phone Stalin Singer MD Primary Care Provider [phone] Encounter Details Date Type Department Care Team (Late st Contact Info) Description 05/27/2023 Orders Only [facility] UROLOGY [address] [phone] Provider, MD Yogi Social History Tobacco Use Types Packs/Day Years [...] Description 07/12/2024 4:00 PM EDT Office Visit [facility] UROLOGY [address] [place] [phone] Cristiano Hay MD [address] [place] [address], [address] [place] [address] PSA 08/20/2024 Hospital Encounter [facility] LAB [address] [place] [address] 08/27/2024 4:00 PM EDT Appointment [facility] Ultrasound [address] [place] [phone] EPIC / ISA W OFC KACEY 09/06/2024 4:00 PM EDT Office Visit [facility] UROLOGY Part of [facility] [address] [facility] [address] [place] [address] Cristiano Hay MD [address] [facility], [address] [place] [address] 1wk US & chest xray documented as of this encounter Procedures Procedure Name Priority Date/Time Associated Diagnosis Comments MRI ABDOMEN Routine 05/04/2021 1:20 PM EDT MRI ABDOMEN Routine 04/12/2021 1:[address] ABDOMEN PELVIS W CONTRAST Routine 03/27/2021 1:18 PM EST PSA Routine 03/24/2021 1:09 PM EST SURGICAL PATHOLOGY Routine 12/22/2018 1:23 PM EST PSA Routine 11/21/2018 11:[address] ABDOMEN PELVIS W CONTRAST Routine 11/05/2018 1:12 PM EDT documented in this encounter Results * MRI abdomen (05/04/2021 1:20 PM EDT) Anatomical Region Laterality Modality Other Historical Provider IMTyler MRI ORDERABLES Final Result * MRI abdomen (04/12/2021 1:16 PM EST) Anatomical Region Laterality Modality Other Result [facility] Provider MD CORADOG MRI ORDERABLES Final Result * CT abdomen pelvis w contrast (03/27/2021 1:18 PM EST) Anatomical Region Laterality Modality Computed Tomogra phy Historical Provider IMG CT ORDERABLES Final R esult * PSA (03/24/2021 1:09 PM EST) Blood BLOOD SPECIMEN / Unknown Historical Provider CHEMISTRY ORDERABLES Ariella l Result * Surgical Pathology (12/22/2018 1:23 PM EST) Tissue SPECIMEN FROM UNSPECIFIED BODY SITE / Unknown us Historical Provider PATHOLOGY/CYTOLOGY ORDERA BLES Final Result * PSA (11/21/2018 11:56 AM EDT) Blood BLOOD SPECIMEN / Unknown Historical Provider CHEMISTRY ORDERABLES Ariella l Result * CT abdomen pelvis w contrast (11/05/2018 1:12 PM EDT) Anatomical Region Laterality Modality Computed Tomogra phy Historical Provider IMG CT ORDERABLES Final R esult documented in this encounter Visit Diagnoses Not on filedocumented in this encounter Care Teams Warp Coiler Relationship Specialty Start Date End Date Stalin Singer MD [address] [place] [address] PCP - General Family Medicine 05/23/23 documented as of this encounter
--- OUTSIDE RECORDS SUMMARY | 2024-07-01 15:16 | XMS_ITS | Clinical Summary ---
Author Organization [facility] Address [address] [place] [address] Phone Care Team Providers Care Environmental Emergencies Planner Name Role Phone Stalin Singer MD Primary Care Provider [phone] Andra Ramirez STORE LEAD-BACTERIOLOGIST PHARMACEUTICAL Unavailable [phone] Allergies No known active allergies Medications Jardiance 10 mg Take 1 tablet (10 mg) by mouth once daily. 3 Active Ozempic 0.25 mg or 0.5 mg (2 mg/3 mL) pen injector 3 Active doxazosin (Cardura) 4 mg tablet Take 1 tablet (4 mg) by mouth 2 times a day. Take half a tablet by mouth every morning and one tablet by mouth every evening Active dilTIAZem CD (Cardizem CD) 120 mg 24 hr capsuleIndication s:Paroxysmal atrial fibrillation (Multi) Take 1 capsule (120 mg) by mouth if needed (if a fib lasts longer than 1-5 mins). 4 10/31/19 25 Active azelastine (Astelin) 137 mcg (0.1 %) nasal spray Administer 2 sprays into each nostril 2 times a day. DIRECTED 5 Active spironolactone (Aldactone) 25 mg tabletIndications :Essential hypertension Take 1 tablet (25 mg) by mouth once daily. 90 tablet 3 5 05/07/19 26 Active metoprolol succinate XL (Toprol-XL) 25 mg 24 hr tabletIndications :Hypertensive left ventricular hypertrophy, without heart failure Take 1.5 tablets daily (37.5mg) daily 135 tablet 3 5 Active valsartan (Diovan) 320 mg tabletIndications :Hypertensive left ventricular hypertrophy, without heart failure Take 1 tablet (320 mg) by mouth once daily. 90 tablet 3 5 05/07/19 26 Active apixaban (Eliquis) 5 mg tabletIndications :Paroxysmal atrial fibrillation (Multi) Take 1 tablet (5 mg) by mouth 2 times a day. 180 tablet 3 5 05/07/19 26 Active amLODIPine (Norvasc) 5 mg tabletIndications :Hypertensive left ventricular hypertrophy, without heart failure Take 1 tablet (5 mg) by mouth once daily. 90 tablet 3 5 05/07/19 26 Active Active Problems Problem Noted Date Diagnosed Date BMI 36.0-36.9,adult 10/31/2023 Never smoked tobacco 10/31/2023 Paroxysmal atrial fibrillation (Multi) 4 Essential hypertension 01/22/2023 Assessment & Plan (03/26/2023 12:32 PM EST): Remains borderline in office today Will add spironolactone Assessment & Plan (01/23/2023 11:59 AM EST): He has been compliant with addition of doxazosin and valsartan since discharge. Reports PCP stopped hydrochlorothiazide. Remains elevated in office today Obstructive sleep apnea 01/22/2023 Assessment & Plan (01/23/2023 12:00 PM EST): Remains compliant with CPAP Diabetes mellitus type II, non insulin dependent (Multi) 01/22/2023 Assessment & Plan (01/23/2023 12:00 PM EST): On ARB No statin Unknown hemoglobin A1c Hypertensive left ventricula r hypertrophy, without heart failure 01/22/2023 Assessment & Plan (01/23/2023 11:59 AM EST): November 2022 TTE LVEF greater than 70% LVH moderate MR trace Left renal mass 01/17/2023 Renal neoplasm 12/22/2018 Resolved Problems Problem Noted Date Diagnosed Date Resolved Date BMI 40.0-44.9, adult (Multi) 01/23/2023 05/06/2024 Assessment & Plan (03/26/2023 12:33 PM EST): Remains on ozempic Continue with lifestyle changes and weight loss Assessment & Plan (01/23/2023 12:01 PM EST): Recently started treatment with Ozempic Weight is down 10 pounds Reviewed the merits of healthy lifestyle choices on overall cardiovascular health. Encounters Date Type Department Care Team Description 05/31/[address] [phone] Sita Uribe RN Results 05/28/2024 Orders Only [facility] [address] [place] [address] Mike Morelos DO 05/06/2024 9:40 AM EDT Office Visit [address] [phone] Mike Morelos DO Paroxysmal atrial fibrillation (Multi); Diabetes mellitus type II, non insulin dependent (Multi); Encounter for lipid screening for cardiovascular disease; Essential hypertension; BMI 36.0-36.9,adult; Hypertensive left ventricular hypertrophy, without heart failure; Never smoked tobacco 05/06/2024 Travel 04/19/[address] [address] Andra Ramirez, STORE LEAD-BACTERIOLOGIST PHARMACEUTICAL Hypertensive left ventricular hypertrophy, without heart failure from Last 3 Months Family History Medical History Relation Name Comments No Known Problems Father Ovarian cancer Mother heart problem Paternal Grandfather Heart attack Sister Relation Name Status Comments Father Mother Paternal Grandfather Sister Social History Tobacco Use Types Packs/Day Years Used Date Smoking Tobacco: Never Smokeless Tobacco: Never Tobacco Cessation:Counseling Given: Yes Alcohol Use Standard Drinks/Week Comments Yes 2 (1 standard drink = 0.6 oz pur e alcohol) Sex and Gender Information Value Date Recorded Sex Assigned at Male 12/16/2022 10:12 AM EST Legal Sex Male 9:26 AM EDT Gender Identity Male 12/16/2022 10:12 AM EST Sexual Orientation Straight 12/16/2022 10 :12 AM EST Last Filed Vital Signs Vital Sign Reading Time Taken Comments Blood Pressure 110/60 05/06/2024 10:15 AM EDT Pulse 80 05/06/2024 10:15 AM EDT Temperature - - Respiratory Rate - - Oxygen Saturation - - Inhaled Oxygen Concentration - - Weight 103 kg (227 lb) 05/06/2024 10:15 AM EDT Height 167.6 cm (5' 6 ) 05/06/2024 10:15 AM EDT Body Mass Index 36.64 05/06/2024 10:15 AM EDT Plan of Treatment Upcoming Encounters Date Type Department Care Team (Late st Contact Info) Description 05/09/2025 4:00 PM EDT Office Visit [facility] [address] [facility] [address] [place] [address] Andra Ramirez, STORE LEAD-BACTERIOLOGIST PHARMACEUTICAL [address] [facility] [address], [address] [place] [address] Health Maintenance Due Date Last Done Comments CT Colonography 1962 Diabetes: Hemoglobin A1C 1962 Diabetes: Urine Protein Screening 1962 FIT-DNA (Cologuard) 1962 FIT 1962 HIV Screening 1962 Lipid Panel 1962 Sigmoidoscopy 1962 Yearly Adult Physical 1962 MMR Vaccines (1 of 1 - Stand marlee series) 11/11/1963 Diabetes: Retinopathy Screening 1972 Hepatitis C Screening 1980 Pneumococcal Vaccine (1 of 2 - PCV) 1981 DTaP/Tdap/Td Vaccines (1 - Tdap) 1984 Zoster Vaccines (1 of 2) 2012 COVID-19 Vaccine ( - 2023-2 5 season) 2023 Influenza Vaccine (Season Ended) 2024 Colonoscopy 09/16/2033 09/17/2023 Colorectal Cancer Screening 09/16/2033 RSV High Risk: (Elderly (60+ ) or Population) (1 - 1-dose 75+ series) 2037 HIB Vaccines Aged Out No longer eligi ble based on patient's age to complete this topic HPV Vaccines Aged Out No longer eligi ble based on patient's age to complete this topic Hepatitis A Vaccines Aged Out No long er eligible based on patient's age to complete this topic Hepatitis B Vaccines Aged Out No long er eligible based on patient's age to complete this topic IPV Vaccines Aged Out No longer eligi ble based on patient's age to complete this topic Meningococcal Vaccine Aged Out No brayan yogesh eligible based on patient's age to complete this topic Rotavirus Vaccines Aged Out No longer eligible based on patient's age to complete this topic Procedures Procedure Name Priority Date/Time Associated Diagnosis Comments NON-[facility] HIE A1C WITH ESTIMATED AVERAGE GLU Routine 05/28/2024 9:21 AM EDT NON-[facility] H[facility] THYROID STIMULATING HORMONE Routine 05/28/2024 9:21 AM EDT NON-[facility] FREE T4 (FREE THYROXINE) Routine 05/28/2024 9:21 AM EDT [facility] LIPID PANEL Routine 9:21 AM EDT NON-[facility] H[facility] ALANINE AMINOTRANSFERASE Routine 05/28/2024 9:21 AM EDT NON-[facility] H[facility] ASPARTATE AMINO TRANSFERASE Routine 05/28/2024 9:21 AM EDT NON-[facility] BASIC METABOLIC PANEL Routine 05/28/2024 9:21 AM EDT from Last 3 Months Results * (ABNORMAL) [facility] Basic Metabolic Panel (05/28/2024 9:21 AM EDT) [facility] Glucose 89 70 - 100 mg/dL [facility] Comment:Random Glucose Refer ence Range is dependent on time and content of last meal. Glucose of more than 200 mg/dL in a nonstressed, ambulatory subject supports the diagnosis of Diabetes Mellitus. ADA recommended reference range NON-[facility] HIE Blood Urea Nitrogen 22 7 - 25 mg/dL [facility] NON-[facility] HIE Creatinine 1.36(H) 0.70 - 1.30 mg/dL [facility] NON-[facility] HIE ESTIMATED GFR 59.207 mL/Min [facility] NON-[facility] Sodium 140 136 - 145 mmol/L [facility] NON-[facility] H[facility] Potassium 4.5 3.5 - 5.1 mmol/L [facility] NON-[facility] HIE Chloride 108(H) 98 - 107 mmol/L [facility] NON-[facility] H[facility] Carbon Dioxide 26.8 21.0 - 31.0 mmol/L [facility] NON-[facility] H[facility] Anion Gap 9.7 6.0 - 15.0 meq/L [facility] HIE Calcium 9.4 8.6 - 10.3 mg/dL [facility] Plasma specimen or serum specimen or whole blood specimen 05/28/2024 9:21 AM EDT Mike Morelos DO LAB BLOOD ORDERABLES Final Result [facility] [address] [place] [address], [facility] [address] [place] [address] * [facility] Thyroid Stimulating Hormone (05/28/2024 9:21 AM EDT) NON-[facility] Thyroid Stimulating Hormone 1.34 0.45 - 5.33 u[iU]/mL [facility] Comment:PERFORMED BY:[facility] [facility] H[facility]PITALJessicaBL[place], [place] [phone] MEDICAL DIRECTORSOLIS ROMANO M.D. [facility] Plasma specimen or serum specimen or whole blood specimen 05/28/2024 9:21 AM EDT Mike oMrelos DO LAB BLOOD ORDERABLES Final Result [facility] [address] [place] [address], [facility] [address] [place] [address] * (ABNORMAL) [facility] Lipid Panel (05/28/2024 9:21 AM EDT) [facility] Cholesterol 156 140 - 200 mg/dL [facility] Comment:Chol less than 200 m g/dl low risk Chol 201-239 mg/dl borderline risk Chol 240 mg/dl and greater high risk NON-[facility] HIE HDL Cholesterol 34 23 - 92 mg/dL [facility] Comment:HDL CHOL ATP-III CLA SSIFICATION Cardiovascular Risk HDL > or equal to 60 mg/dL LOW HDL < 40 mg/dL HIGH NON-[facility] HIE Triglyceride w/Reflex 99 0 - 149 mg/dL [facility] Comment:TRIG ATP III CLASSIF ICATION TRIG less than 150 mg/dL Normal TRIG 150-199 mg/dL Borderline high TRIG 200-500 mg/dL High TRIG greater than 500 mg/dL Very high Standard traceable to the Center for Disease Conrtrol and Prevention (CDC) test method. NON-[facility] HIE LDL Cholesterol,Calcula susan 102(H) 0 - 100 mg/dL [facility] Comment:LDL ATP III CLASSIFI CATION LDL less than 100 mg/dL Optimal LDL 100-129 mg/dL Near or above optimal LDL 130-159 mg/dL Borderline high LDL 160-189 mg/dL High LDL greater than 189 mg/dL Very high NON-[facility] HIE VLDL CHOLESTEROL 19 mg/dL [facility] NON-[facility] HIE Chol/HDL Ratio 4.6 <5.0 [facility] Plasma specimen or serum specimen or whole blood specimen 05/28/2024 9:21 AM EDT us Mike Morelos DO LAB BLOOD ORDERABLES Final Result [facility] [address] [place] [address], [facility] [address] [place] [address] * NON-[facility] HIE Free T4 (Free Thyroxine) (05/28/2024 9:21 AM EDT) NON-[facility] H[facility] Free T4 (Free Thyroxine) 0.91 0.61 - 1.12 ng/dL [facility] Plasma specimen or serum specimen or whole blood specimen 05/28/2024 9:21 AM EDT Mike Morelos LAB BLOOD ORDERABLES Final Result [facility] [address] [place] [address], [facility] [address] [place] [address] * NON-[facility] H[facility] Aspartate Amino Transferase (05/28/2024 9:21 AM EDT) Pathologist [facility] NON-[facility] HIE Aspartate Amino Transferase 33 13 - 39 U/L [facility] Plasma specimen or serum specimen or whole blood specimen 05/28/2024 9:21 AM EDT [facility] BLOOD ORDERABLES Final Result Performing Organization Address City/[facility]/ZIP Co de Phone Number [facility] [address] [place] [address], [facility] [address] [place] [address] * NON-[facility] HIE Alanine Aminotransferase (05/28/2024 9:21 AM EDT) Pathologist [facility] NON-[facility] HIE Alanine Aminotransferase 40 7 - 52 U/L [facility] Plasma specimen or serum specimen or whole blood specimen 05/28/2024 9:21 AM EDT Mike Martel Jethro DO LAB BLOOD ORDERABLES Final Result Performing Organization Address City/[facility]/ZIP Co de Phone Number [facility] [address] [place] [address], [facility] [address] [place] [address] * NON-[facility] H[facility] A1C with Estimated Average Glu (05/28/2024 9:21 AM EDT) NON-[facility] HIE Hemoglobin A1C 5.5 4.3 - 5.6 % [facility] Comment:Increased risk for d iabetes: 5.7 - 6.4 diabetes: >6.4 glycemic control for adults with diabetes: <7.0 NON-[facility] HIE Estimated Average Glucose 111 mg/dL [facility] Comment:PERFORMED BY:[facility]1111 [facility] MEDICAL CENTERBariJessicaGIOVANNY, [place] [phone] MEDICAL DIRECTORMOJORDAN ROMANO M.D. [facility] Whole blood specimen 05/28/2024 9:21 AM EDT Mike Morelos DO LAB BLOOD ORDERABLES Final Result [facility] [address] [facility] [place] [address], [facility] [address] [place] [address] from Last 3 Months Insurance [facility] [employer] [employer]CIAL MEDICAL [facility] [employer] GENERIC COMMERCIAL Care Teams Environmental Emergencies Planner Relationship Specialty Start Date End Date Stalin Singer MD [address] [facility] [place] [address] PCP - General Family Medicine 11/13/22 Andra Ramirez, STORE LEAD-BACTERIOLOGIST PHARMACEUTICAL [address] [facility] [address], [address] [place] [address] PCP - MMO ACO PCP 05/11/24
--- OUTSIDE RECORDS SUMMARY | 2024-07-01 15:17 | XMS_ITS | Encounter Summary ---
Author Organization [facility] Address [address] [facility] [place] [address] Care Team Providers Care Medical Field Representative Name Role Phone Stalin Singer MD Primary Care Provider + Rachel Mckeon LOADER MACHINE Unavailable [phone] Leon Maria DO Unavailable [phone] Encounter Details Date Type Department Care Team (Late st Contact Info) Description 06/25/2024 Abstract [facility] [address] [place] [phone] Randee Christianson MA Social History Tobacco Use Types Packs/Day Years [...] as of this encounter Plan of Treatment Not on file documented as of this encounter Visit Diagnoses Not on filedocumented in this encounter Care Teams Medical Field Representative Relationship Specialty Start Date End Date Satlin Singer MD PCP - General Family Medicine 01/30/24 Rachel Mckeon NP [address] [place], [place] Nurse Practitioner Neurology 02/13/24 Leon Maria DO [address] [place] [address] Otolaryngology 02/13/24 documented as of this encounter
--- OUTSIDE RECORDS SUMMARY | 2024-07-01 15:17 | XMS_ITS | Patient Health Record ---
Author Organization [facility] in [place] Address [address] [place] [place] [address] Care Team Providers Care Coconut Jelly Roller Name Role Phone Kev Singer Primary Care Provider [phone] SHEA SINGER Unavailable [phone] Allergies No Known Allergies Results Component Value Reference Range Notes CT ABDOMEN PELVIS W IV CONTR AST Reviewed date:08/26/2023 08:50:15 PM Interpretation: Performing Lab: Notes/Report: EXAMINATION: Performed at: [address] [place] [address] Performed at: BNP Reviewed date:09/17/2023 08:24:15 PM Interpretation: Performing Lab: Notes/Report: [facility] , NT Pro B Type Natriuretic Pept 2287.0 <=900.0 pg/mL RESULTS CALLED TO BRUNO CATES RN Performing Lab: see note ML - [facility] LB CBC AUTO DIFF Reviewed date:09/17/2023 01:05:05 PM Interpretation: Performing Lab: Notes/Report: [facility] , White Blood Count 11.2 4.0-11.0 10 3/uL Red Blood Count 5.86 4.70-6.10 10 6/uL Hemoglobin 17.4 14.0-18.0 g/dL Hematocrit 53.0 42.0-54.0 % Mean Corpuscular Volume 90.4 80.0-94.0 fL Mean Corpuscular Hemoglobin 29.7 25.9-34.0 pg Mean Corpuscular HGB Conc 32.8 29.9-35.2 g/dL Red Cell Distribution Width 13.6 11.0-15.0 % Platelet Count 231 150-450 10 3/uL Mean Platelet Volume 9.4 9.5-13.5 fL Neutrophils Percent Auto 76.0 43.0-75.0 % Lymphocytes Percent Auto 13.0 20.5-60.0 % Monocytes Percent Auto 8.3 1.7-12.0 % Eosinophils Percent Auto 1.8 0.9-7.0 % Basophils Percent Auto 0.6 0.2-2.0 % Immature Granulocytes Pct Auto 0.3 0.0-0.5 % Neutrophils Absolute Auto 8.5 1.4-6.5 10 3/uL Lymphocytes Absolute Auto 1.5 1.2-3.8 10 3/uL Monocytes Absolute Auto 0.9 0.3-0.8 10 3/uL Eosinophils Absolute Auto 0.2 0.0-0.7 10 3/uL Basophils Absolute Auto 0.1 0.0-0.1 10 3/uL Immature Granulocytes Abs Auto 0.03 0.00-0.03 10 3/uL Performing Lab: see note ML - [facility] LB FREE T3 Reviewed date:09/17/2023 08:24:15 PM Interpretation: Performing Lab: Notes/Report: [facility] , Free T3 2.26 2.18-3.98 pg/mL Performing Lab: see note ML - [facility] LB MAGNESIUM Reviewed date:09/17/2023 08:24:15 PM Interpretation: Performing Lab: Notes/Report: [facility] , Magnesium 2.1 1.8-2.4 mg/dL Performing Lab: see note ML - [facility] LB PROF 14(COMP METB) Reviewed date:09/17/2023 01:05:05 PM Interpretation: Performing Lab: Notes/Report: [facility] , Sodium 141 136-145 mmol/L Potassium 3.8 3.5-5.1 mmol/L Chloride 107 98-107 mmol/L Carbon Dioxide 24.5 21.0-32.0 mmol/L Anion Gap 13.3 Glucose 100 74-106 mg/dL Blood Urea Nitrogen 9.0 7.0-18.0 mg/dL Creatinine 1.42 0.70-1.30 mg/dL Estimated GFR ( Cheryl >60 >=60 Estimated GFR (Non- Elida 51 >=60 BUN Creatinine Ratio 6.3 Calcium 9.2 8.5-10.1 mg/dL Bilirubin Total 1.2 0.2-1.0 mg/dL Aspartate Amino Transferase 22 15-37 U/L Alanine Aminotransferase 21 16-63 U/L Alkaline Phosphatase 61 46-116 U/L Total Protein 6.7 6.4-8.2 g/dL Albumin Level 3.5 3.4-5.0 g/dL Globulin 3.2 Albumin Globulin Ratio 1.1 Performing Lab: see note ML - [facility] LB PTT Reviewed date:09/17/2023 01:05:05 PM Interpretation: Performing Lab: Notes/Report: [facility] , Partial Thromboplastin Time 30.7 22.3-36.2 sec Performing Lab: see note ML - [facility] LB T4 Reviewed date:09/17/2023 08:24:15 PM Interpretation: Performing Lab: Notes/Report: [facility] , T4 Thyroxine 7.90 4.50-12.10 ug/dL Performing Lab: see note ML - [facility] TSH Reviewed date:09/17/2023 08:24:15 PM Interpretation: Performing Lab: Notes/Report: [facility] , Thyroid Stimulating Hormone 0.664 0.358-3.740 uIU/mL Performing Lab: see note ML - [facility] LB UA RANDOM W or MICROSCOPIC Reviewed date:09/17/2023 08:24:15 PM Interpretation: Performing Lab: Notes/Report: [facility] , Color Urine LT. YELLOW YELLOW Clarity Urine CLEAR CLEAR Specific [place] Urine 1.010 1.005-1.025 pH Urine 6.0 5.0-9.0 Protein Urine NEGATIVE NEG/TRACE mg/dL Glucose Urine UA >=1000 NEGATIVE mg/dL Bilirubin Urine NEGATIVE NEGATIVE Ketones Urine NEGATIVE NEGATIVE mg/dL Blood Urine TRACE-I NEGATIVE Nitrite Urine NEGATIVE NEGATIVE Urobilinogen Urine 0.2 0.2-1.0 EU/dL Leukocyte Esterase Urine NEGATIVE NEGATIVE WBC Urine NONE SEEN NONE SEEN #/HPF RBC Urine 0-2 0-2 #/HPF Bacteria Urine NONE SEEN NONE SEEN #/HPF Mucus Urine TRACE NONE SEEN Squamous Epithelial Cell Urine RARE NONE/RARE #/LPF Crystals Seen? None Seen None Seen #/HPF Cast Seen? NONE SEEN NONE SEEN #/LPF Urine Culture Indicated ALREADY ORDERED Performing Lab: see note ML - [facility] LB Prothrombin Time INR Reviewed date:09/17/2023 01:05:05 PM Interpretation: Performing Lab: Notes/Report: [facility] , Prothrombin Time 11.3 9.0-11.6 sec INR 1.07 2.5-3.5 RECURRENT THROMBOSIS DESIRED INR: 2.0-3.0 CONDITIONS NOT LISTED BELOW 2.5-3.5 FOR PROSTHETIC HEART VALVE REPLACEMENT Performing Lab: see note ML - [facility] LB Troponin I High Sensitivity Reviewed date:09/17/2023 01:05:05 PM Interpretation: Performing Lab: Notes/Report: [facility] , Troponin I High Sensitivity 9.0 4.0-76.1 pg/mL REFERENCE LIMIT (URL) OF TROPONIN, DEFINED THE 99TH NOTE: HIGH-SENSITIVITY TROPONIN ASSAY IS NOT INTENDED TO BE HAS BEEN CONFIRMED THE DECISION THRESHOLD FOR MD DIAGNOSIS. WITH OTHER DIAGNOSTIC AND CLINICAL INFORMATION. 99TH PERCENTILE = 76.2 PG/ML CUT-OFF POINTS HAVE BEEN ESTABLISHED BASED ON THE FOURTH USED IN ISOLATION BUT SHOULD BE INTERPRETED IN CONJUNCTION UNIVERSAL DEFINITION OF MYOCARDIAL INFARCTION. THE UPPER PERCENTILE OF cTnI DISTRIBUTION IN A REFERENCE POPULATION, Performing Lab: see note - [facility] Urine Culture, Routine Reviewed date:09/22/2023 09:07:44 AM Interpretation: Performing Lab: Notes/Report: [facility] , Urine Culture, Routine See Below For Report Urine Culture, Routine Urine Culture, Routine No growth Urine Culture, Routine Urine Culture, Routine Performed at: - [facility] [place] Urine Culture, Routine Urine Culture, Routine [address], [place] [id number] Urine Culture, Routine Urine Culture, Routine Nuclear Medicine Physician: Charanjit Morrissey PhD, Phone: [phone] Urine Culture, Routine Performing Lab: see note LC - [facility] LB SEE REPORT - It Systems Analyst Consultant Id information not found for OBX-specific 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 Ordering Physician: Oliverio Calabrese M.D. Date of Service: 09/18/23 Procedure(s): ECG 12 lead Accession Number(s): [id number] cc: [facility] Test Date: 2023-09-18 Pat Name: BOB CHASE Department: Room: 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 Signed By: 09/20/23 0721 DD/ 030 TD/TT: Clinical Account Specialist: [place] [address] Electrocardiograph Report Signed Patient: BOB CHASE MR#: [id number] : 1960 Acct:[id number] Age/Sex: 62 / M ADM Date: 09/17/23 Loc: MS 231-[address]: Celena Singer M.D. Ordering Physician: Oliverio Calabrese M.D. Date of Service: 09/18/23 Procedure(s): ECG 12 lead Accession Number(s): [id number] cc: [facility] Test Date: 2023-09-18 Pat Name: BOB CHASE Department: 66 Room: 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 Signed By: 09/20/23720 DD/ 5 TD/TT: Clinical Account Specialist: YANNI echo doppler complete Reviewed date:09/17/2023 08:24:15 PM Interpretation: Performing Lab: Notes/Report: Source Facility: [place] [address] Cardiology Report Signed Patient: BOB CHASE MR#: [id number] : 1960 Acct:[id number] Age/Sex: 62 / M ADM Date: 09/17/23 Loc: MS 231-[address]: Shea Singer M.D. Ordering Physician: Shea Singer M.D. Date of Service: 09/17/23 Procedure(s): YANNI echo doppler complete Accession Number(s): [id number] cc: Shea Singer M.D. Patient Name: BOB CHASE MR#: [id number] : 1960 Exam Date: 09/17/2023 Ordering Doctor: DR Shea Singer . ECHOCARDIOGRAM REPORT PROCEDURE: CA ECHO DOPPLER COMPLETE INDICATIONS: New onset Atrial Fibrillation w/RVR COMPARISON: None. DESCRIPTION: COMPLETE ECHOCARDIOGRAM Real-time transthoracic echocardiography with 2D, M-mode, spectral and color flow Doppler performed. QUALITY: Technical quality was good. LEFT VENTRICLE: Normal chamber size. Moderate concentric left ventricular hypertrophy. Global left ventricular systolic function is normal. LV EF: Visual estimation of left ventricular ejection fraction is 55-60%. DIASTOLIC: Not adequately assessed due to heart rhythm. ATRIAL SEPTUM: LEFT ATRIUM: Normal chamber size. RIGHT ATRIUM: Normal chamber size. RIGHT VENTRICLE: Normal chamber size. Normal right ventricular systolic function. TRICUSPID VALVE: Normal mobility and thickness. No stenosis with trivial regurgitation. No evidence of pulmonary hypertension. RVSP 26 mmHg MITRAL VALVE: Normal mobility and thickness. No evidence of mitral valve stenosis. Mild mitral annular calcification. Trivial mitral regurgitation. AORTIC VALVE: Normal trileaflet appearance. Mildly calcified aortic valve. Normal leaflet mobility. No evidence of aortic valve stenosis. Trivial aortic regurgitation. AORTIC ROOT: Normal diameter and appearance. PULMONIC VALVE: Normal thickness and mobility. No stenosis. Trivial regurgitation. PERICARDIUM: Trivial pericardial effusion. IVC: Collapses with inspirations. Normal size. PLEURA: CONCLUSION: 1. Moderate concentric left ventricular hypertrophy with normal systolic function. LVEF is estimated at 55 to 60%. 2. Normal right ventricular size and systolic function. 3. No significant valvular dysfunction. 4. Normal right-sided pressures. 5. Trivial pericardial effusion. Adult Echocardiography Procedure Report Left Ventricle LVEDD (3.7 - 5.6 cm): 4.23 cm LVESD (2.2 - 4.0 cm): 3.05 cm LVIVS thickness (0.6 - 1.2 cm): 1.52 cm LVPW thickness (0.5 - 1.0 cm): 1.38 cm e': 0.15 m/s E - e': 4.95 LVOT Max Gradient: 3.65 mm[Hg], 3.65 mm[Hg] LVOT Area (cm2): 0.95 m/s Peak Velocity (LVOT): 0.95 m/s, 0.95 m/s Mean Velocity (LVOT): 0.70 m/s LVOT Diameter 2.13 cm Left Ventricular Ejection Fraction: 55-60 % Left Atrium LA Volume Index (2D A2C): 28.19 ml/m2 Left Atrium Systolic Dimension: 4.41 cm Mitral Valve MV E to A Ratio: 82.99 Mitral Valve A-Wave Peak Velocity: 0.01 m/s Mitral Valve E-Wave Peak Velocity: 0.76 m/s Right Ventricle RV Internal Diastolic Dimension: 3.08 cm Aorta AO Root Diam: 3.26 cm Ascending Ao Diam: 2.95 cm Aortic Valve AoV Area (Peak Kar): 2.54 cm2, 2.54 cm2, 2.54 cm2 AoV Area (VTI): 2.94 cm2, 2.94 cm2, 2.93 cm2 Peak Velocity(Antegrade Flow): 1.34 m/s, 1.34 m/s Peak Gradient(Antegrade Flow): 7.17 mm[Hg], 7.17 mm[Hg] Mean Velocity(Antegrade Flow): 0.86 m/s, 0.89 m/s Mean Gradient(Antegrade Flow): 3.45 mm[Hg], 3.71 mm[Hg] Velocity Time Integral: 24.95 cm, 25.44 cm Tricuspid Valve Peak Velocity (Regurgitant Flow): 1.91 m/s, 2.00 m/s, 1.91 m/s, 2.40 m/s Pulmonic Valve Peak Velocity: 0.56 m/s Peak Gradient: 1.52 mm[Hg], 0.97 mm[Hg] Right Atrium Right Atrium Systolic Pressure: 35.12 ml, 35.12 ml Dictated by: Selam Cruz M.D. on 09/17/2023 at 16:36 Approved by: Selam Cruz M.D. on 09/17/2023 at 16:38 Dictated By: SELAM CRUZ Signed By: 09/17/23 1639 DD/ 37 TD/TT: Clinical Account Specialist: [place] [address] Cardiology Report Signed Patient: BOB CHASE MR#: [id number] : 1960 Acct:[id number] Age/Sex: 62 / M ADM Date: 09/17/23 Loc: MS 231-[address]: Celena Singer M.D. Ordering Physician: Shea Singer M.D. Date of Service: 09/17/23 Procedure(s): CA ech o doppler complete Accession Number(s): [id number] cc: Shea Singer M.D. Patient Name: BOB CHASE MR#: [id number] : 1960 Exam Date: 09/17/2023 Ordering Doctor: DR Shea Singer . ECHOCARDIOGRAM REPORT PROCEDURE: CA ECHO DOPPLER COMPLETE INDICATIONS: New ons et Atrial Fibrillation w/RVR COMPARISON: None. DESCRIPTION: COMPLET E ECHOCARDIOGRAM Real-time transthoracic echocardiography wit h 2D, M-mode, spectral and color flow Doppler performed. QUALITY: Technical quality was good. LEFT VENTRICLE: Norm al chamber size. Moderate concentric left ventricular hypertrophy. Global left ventricular systolic function is normal. LV EF: Visual estima tion of left ventricular ejection fraction is 55-60%. DIASTOLIC: Not adequ ately assessed due to heart rhythm. ATRIAL SEPTUM: LEFT ATRIUM: Normal chamber size. RIGHT ATRIUM: Normal chamber size. RIGHT VENTRICLE: Nor mal chamber size. Normal right ventricular systolic function. TRICUSPID VALVE: Nor mal mobility and thickness. No stenosis with trivial regurgitation. No evidence of pulmonary hypertension. RVSP 26 mmHg MITRAL VALVE: Normal mobility and thickness. No evidence of mitral valve stenosis. Mild rosetta l annular calcification. Trivial mitral regurgitation. AORTIC VALVE: Normal trileaflet appearance. Mildly calcified aortic valve. Normal leaflet mobil ity. No evidence of aortic valve stenosis. Trivial aortic regurgitation. AORTIC ROOT: Normal diameter and appearance. PULMONIC VALVE: Norm al thickness and mobility. No stenosis. Trivial regurgitation. PERICARDIUM: Trivial pericardial effusion. IVC: Collapses with inspirations. Normal size. PLEURA: CONCLUSION: 1. Moderate concentr ic left ventricular hypertrophy with normal systolic function. LVEF is estimated at 55 to 60%. 2. Normal right ventricular size and systolic function. 3. No significant valvular dysfunction. 4. Normal right-side d pressures. 5. Trivial pericardi al effusion. Adult Echocardiograp hy Procedure Report Left Ventricle LVEDD (3.7 - 5.6 cm) : 4.23 cm LVESD (2.2 - 4.0 cm) : 3.05 cm LVIVS thickness (0.6 - 1.2 cm): 1.52 cm LVPW thickness (0.5 - 1.0 cm): 1.38 cm e': 0.15 m/s E - e': 4.95 LVOT Max Gradient: 3 .65 mm[Hg], 3.65 mm[Hg] LVOT Area (cm2): 0.95 m/s Peak Velocity (LVOT) : 0.95 m/s, 0.95 m/s Mean Velocity (LVOT) : 0.70 m/s LVOT Diameter 2.13 cm Left Ventricular Eje ction Fraction: 55-60 % Left Atrium LA Volume Index (2D A2C): 28.19 ml/m2 Left Atrium Systolic Dimension: 4.41 cm Mitral Valve MV E to A Ratio: 82.99 Mitral Valve A-Wave Peak Velocity: 0.01 m/s Mitral Valve E-Wave Peak Velocity: 0.76 m/s Right Ventricle RV Internal Diastoli c Dimension: 3.08 cm Aorta AO Root Diam: 3.26 cm Ascending Ao Diam: 2 .95 cm Aortic Valve AoV Area (Peak Kar): 2.54 cm2, 2.54 cm2, 2.54 cm2 AoV Area (VTI): 2.94 cm2, 2.94 cm2, 2.93 cm2 Peak Velocity(Antegr gerson Flow): 1.34 m/s, 1.34 m/s Peak Gradient(Antegr gerson Flow): 7.17 mm[Hg], 7.17 mm[Hg] Mean Velocity(Antegr gerson Flow): 0.86 m/s, 0.89 m/s Mean Gradient(Antegr gerson Flow): 3.45 mm[Hg], 3.71 mm[Hg] Velocity Time Integr al: 24.95 cm, 25.44 cm Tricuspid Valve Peak Velocity (Regurgitant Flow): 1.91 m/s, 2.00 m/s, 1.91 m/s, 2.40 m/s Pulmonic Valve Peak Velocity: 0.56 m/s Peak Gradient: 1.52 mm[Hg], 0.97 mm[Hg] Right Atrium Right Atrium Systoli c Pressure: 35.12 ml, 35.12 ml Dictated by: Selam Cruz M.D. on 09/17/2023 at 16:36 Approved by: Selam Cruz M.D. on 09/17/2023 at 16:38 Dictated By: SELAM CRUZ Signed By: 09/17/23 1639 DD/ 1638 TD/TT: Clinical Account Specialist: RAMON rodrigues 1V Reviewed date:09/17/2023 01:05:05 PM Interpretation: Performing Lab: Notes/Report: Source Facility: [facility]-[address] [place] [address] [place] [address] XRay Report Signed Patient: BOB CHASE MR#: [id number] : 1960 Acct:[id number] Age/Sex: 62 / M ADM Date: 09/17/23 Loc: ER Attending Dr: Ordering Physician: Freddie Ramos M.D. Date of Service: 09/17/23 Procedure(s): XR chest 1V Accession Number(s): [id number] cc: Freddie Ramos M.D.; Shea Singer M.D. [facility] [place] [address] Patient Name: BOB CHASE MRN: [id number] date: 1960 Sex: M Assigned Patient Location: ER Current Patient Location: ER Accession/Order Number: [id number] Exam Date: 09/17/2023 10:55 Report Date: 09/17/2023 11:21 At the request of: FREDDIE RAMOS Procedure: XR chest 1V EXAMINATION: XR chest 1V HISTORY: tachardia COMPARISON: No relevant comparison available. FINDINGS: LUNGS: Mild haziness within lower left lung. Right lung is clear. VASCULATURE: No increased pulmonary vasculature. PLEURA: No pneumothorax, effusion, or pleural thickening. CARDIAC: No cardiomegaly or cardiac silhouette abnormality. MEDIASTINUM: No visible mass or adenopathy. BONES: No fracture or visible bone lesion. OTHER: Negative. XR/XR chest 1V IMPRESSION: 1. Trace amount of left basilar atelectasis, or possibly infiltrates. Electronically authenticated by: ARIK LI Date: 09/17/2023 11:21 Dictated By: Arik Li M.D. Signed By: 09/17/23 1123 DD/ 1121 TD/TT: Clinical Account Specialist: [place] [address] XRay Report Signed Patient: BOB CHASE MR#: [id number] : 1960 Acct:[id number] Age/Sex: 62 / M ADM Date: 09/17/23 Loc: ER Attending Dr: Ordering Physician: Freddie Ramos M.D. Date of Service: 09/17/23 Procedure(s): XR chest 1V Accession Number(s): [id number] cc: Freddie Ramos; Shea Singer M.D. [facility] [place] [address] Patient Name: BOB CHASE MRN: [id number] date: 1960 Sex: M Assigned Patient Location: ER Current Patient Loca tion: ER Accession/Order Numb er: [id number] Exam Date: 09/17/2023 10:55 Report Date: 09/17/2023 11:21 At the request of: FREDDIE RAMOS Procedure: XR chest 1V EXAMINATION: XR chest 1V HISTORY: tachardia COMPARISON: No relev ant comparison available. FINDINGS: LUNGS: Mild haziness within lower left lung. Right lung is clear. VASCULATURE: No incr eased pulmonary vasculature. PLEURA: No pneumotho rax, effusion, or pleural thickening. CARDIAC: No cardiome hui or cardiac silhouette abnormality. MEDIASTINUM: No visi ble mass or adenopathy. BONES: No fracture o r visible bone lesion. OTHER: Negative. X R/XR chest 1V IMPRESSION: 1. Trace amount of l eft basilar atelectasis, or possibly infiltrates. Electronically authenticated by: ARIK LI Date: 09/17/2023 11:21 Dictated By: Arik Li M.D. Signed By: 09/17/23 1123 DD/ 1121 TD/TT: Clinical Account Specialist: Troponin I High Sensitivity Reviewed date:09/17/2023 08:24:15 PM Interpretation: Performing Lab: Notes/Report: [facility] , Troponin I High Sensitivity 6.9 4.0-76.1 pg/mL WITH OTHER DIAGNOSTIC AND CLINICAL INFORMATION. UNIVERSAL DEFINITION OF MYOCARDIAL INFARCTION. THE UPPER USED IN ISOLATION BUT SHOULD BE INTERPRETED IN CONJUNCTION CUT-OFF POINTS HAVE BEEN ESTABLISHED BASED ON THE FOURTH NOTE: HIGH-SENSITIVITY TROPONIN ASSAY IS NOT INTENDED TO BE PERCENTILE OF cTnI DISTRIBUTION IN A REFERENCE POPULATION, DIAGNOSIS. HAS BEEN CONFIRMED THE DECISION THRESHOLD FOR MD REFERENCE LIMIT (URL) OF TROPONIN, DEFINED THE 99TH 99TH PERCENTILE = 76.2 PG/ML Performing Lab: see note ML - [facility] LB Troponin I High Sensitivity Reviewed date:09/17/2023 08:24:15 PM Interpretation: Performing Lab: Notes/Report: [facility] , Troponin I High Sensitivity 6.8 4.0-76.1 pg/mL UNIVERSAL DEFINITION OF MYOCARDIAL INFARCTION. THE UPPER HAS BEEN CONFIRMED THE DECISION THRESHOLD FOR MD REFERENCE LIMIT (URL) OF TROPONIN, DEFINED THE 99TH DIAGNOSIS. NOTE: HIGH-SENSITIVITY TROPONIN ASSAY IS NOT INTENDED TO BE CUT-OFF POINTS HAVE BEEN ESTABLISHED BASED ON THE FOURTH USED IN ISOLATION BUT SHOULD BE INTERPRETED IN CONJUNCTION 99TH PERCENTILE = 76.2 PG/ML WITH OTHER DIAGNOSTIC AND CLINICAL INFORMATION. PERCENTILE OF cTnI DISTRIBUTION IN A REFERENCE POPULATION, Performing Lab: see note ML - [facility] LB BNP Reviewed date:09/18/2023 01:16:50 PM Interpretation: Performing Lab: Notes/Report: [facility] , NT Pro B Type Natriuretic Pept 1123.0 <=900.0 pg/mL Performing Lab: see note ML - [facility] LB CBC AUTO DIFF Reviewed date:09/18/2023 01:16:50 PM Interpretation: Performing Lab: Notes/Report: [facility] , White Blood Count 10.8 4.0-11.0 10 3/uL Red Blood Count 5.28 4.70-6.10 10 6/uL Hemoglobin 15.7 14.0-18.0 g/dL Hematocrit 47.5 42.0-54.0 % Mean Corpuscular Volume 90.0 80.0-94.0 fL Mean Corpuscular Hemoglobin 29.7 25.9-34.0 pg Mean Corpuscular HGB Conc 33.1 29.9-35.2 g/dL Red Cell Distribution Width 13.7 11.0-15.0 % Platelet Count 246 150-450 10 3/uL Mean Platelet Volume 9.5 9.5-13.5 fL Neutrophils Percent Auto 70.5 43.0-75.0 % Lymphocytes Percent Auto 16.7 20.5-60.0 % Monocytes Percent Auto 8.3 1.7-12.0 % Eosinophils Percent Auto 2.7 0.9-7.0 % Basophils Percent Auto 0.7 0.2-2.0 % Immature Granulocytes Pct Auto 1.1 0.0-0.5 % Neutrophils Absolute Auto 7.6 1.4-6.5 10 3/uL Lymphocytes Absolute Auto 1.8 1.2-3.8 10 3/uL Monocytes Absolute Auto 0.9 0.3-0.8 10 3/uL Eosinophils Absolute Auto 0.3 0.0-0.7 10 3/uL Basophils Absolute Auto 0.1 0.0-0.1 10 3/uL Immature Granulocytes Abs Auto 0.12 0.00-0.03 10 3/uL Performing Lab: see note ML - [facility] LB PROF CHEM 8 (BAS METB) Reviewed date:09/18/2023 01:16:50 PM Interpretation: Performing Lab: Notes/Report: [facility] , Sodium 141 136-145 mmol/L Potassium 3.6 3.5-5.1 mmol/L Chloride 108 98-107 mmol/L Carbon Dioxide 23.4 21.0-32.0 mmol/L Anion Gap 13.2 Glucose 99 74-106 mg/dL Blood Urea Nitrogen 16.0 7.0-18.0 mg/dL Creatinine 1.27 0.70-1.30 mg/dL Estimated GFR ( Cheryl >60 >=60 Estimated GFR (Non- Elida 58 >=60 BUN Creatinine Ratio 12.6 Calcium 8.7 8.5-10.1 mg/dL Performing Lab: see note ML - [facility] LB Troponin I High Sensitivity Reviewed date:09/18/2023 01:16:50 PM Interpretation: Performing Lab: Notes/Report: [facility] , Troponin I High Sensitivity 6.2 4.0-76.1 pg/mL HAS BEEN CONFIRMED THE DECISION THRESHOLD FOR MD REFERENCE LIMIT (URL) OF TROPONIN, DEFINED THE 99TH WITH OTHER DIAGNOSTIC AND CLINICAL INFORMATION. NOTE: HIGH-SENSITIVITY TROPONIN ASSAY IS NOT INTENDED TO BE UNIVERSAL DEFINITION OF MYOCARDIAL INFARCTION. THE UPPER PERCENTILE OF cTnI DISTRIBUTION IN A REFERENCE POPULATION, DIAGNOSIS. CUT-OFF POINTS HAVE BEEN ESTABLISHED BASED ON THE FOURTH 99TH PERCENTILE = 76.2 PG/ML USED IN ISOLATION BUT SHOULD BE INTERPRETED IN CONJUNCTION Performing Lab: see note ML - [facility] LB CBC AUTO DIFF Reviewed date:03/27/2024 02:19:00 PM Interpretation: Performing Lab: Notes/Report: [facility] , White Blood Count 12.2 4.0-11.0 10 3/uL Red Blood Count 4.92 4.70-6.10 10 6/uL Hemoglobin 15.0 14.0-18.0 g/dL Hematocrit 44.2 42.0-54.0 % Mean Corpuscular Volume 89.8 80.0-94.0 fL Mean Corpuscular Hemoglobin 30.5 25.9-34.0 pg Mean Corpuscular HGB Conc 33.9 29.9-35.2 g/dL Red Cell Distribution Width 13.2 11.0-15.0 % Platelet Count 278 150-450 10 3/uL Mean Platelet Volume 8.5 9.5-13.5 fL Neutrophils Percent Auto 73.5 43.0-75.0 % Lymphocytes Percent Auto 13.3 20.5-60.0 % Monocytes Percent Auto 9.0 1.7-12.0 % Eosinophils Percent Auto 2.8 0.9-7.0 % Basophils Percent Auto 0.8 0.2-2.0 % Immature Granulocytes Pct Auto 0.6 0.0-0.5 % Neutrophils Absolute Auto 8.9 1.4-6.5 10 3/uL Lymphocytes Absolute Auto 1.6 1.2-3.8 10 3/uL Monocytes Absolute Auto 1.1 0.3-0.8 10 3/uL Eosinophils Absolute Auto 0.3 0.0-0.7 10 3/uL Basophils Absolute Auto 0.1 0.0-0.1 10 3/uL Immature Granulocytes Abs Auto 0.07 0.00-0.03 10 3/uL Performing Lab: see note ML - [facility] FREE T3 Reviewed date:03/27/2024 02:19:00 PM Interpretation: Performing Lab: Notes/Report: [facility] , Free T3 2.46 2.18-3.98 pg/mL Performing Lab: see note ML - [facility] LB GLYCOHEMOGLOBIN A1C Reviewed date:03/27/2024 02:19:00 PM Interpretation: Performing Lab: Notes/Report: [facility] , Glycohemoglobin A1C 5.4 4.5-6.2 % ACTION SUGGESTED ADA RECOMMENDED LIMIT 4.0 - 6.0 > 7.0 ADA THERAPEUTIC TARGET < 7.0 Estimated Average Glucose 108 Performing Lab: see note ML - [facility] LB LIPID PROFILE Reviewed date:03/27/2024 02:19:00 PM Interpretation: Performing Lab: Notes/Report: [facility] , Triglycerides 69 <=150 mg/dL Cholesterol 124 <=200 mg/dL HDL Cholesterol 34 40-60 mg/dL > or =60 mg/dl - LOW CARDIOVASCULAR RISK <40 mg/dl - HIGH CARDIOVASCULAR RISK LDL Cholesterol Calculated 77.0 >190 mg/dl VERY HIGH 100-129 mg/dl NEAR OR ABOVE OPTIMAL 160-189 mg/dl HIGH <100 mg/dl OPTIMAL 130-159 mg/dl BORDERLINE HIGH VLDL CHOLESTEROL 13.8 Chol HDL Ratio 3.6 4.4 - 7.1 AVERAGE RISK >11.0 HIGH RISK 3.3 - 4.4 LOW RISK 7.1 - 11.0 MODERATE RISK Performing Lab: see note ML - [facility] PROF 14(COMP METB) Reviewed date:03/27/2024 02:19:00 PM Interpretation: Performing Lab: Notes/Report: [facility] , Sodium 142 136-145 mmol/L Potassium 4.6 3.5-5.1 mmol/L Chloride 107 98-107 mmol/L Carbon Dioxide 27.7 21.0-32.0 mmol/L Anion Gap 11.9 Glucose 101 74-106 mg/dL Blood Urea Nitrogen 23.0 7.0-18.0 mg/dL Creatinine 1.57 0.70-1.30 mg/dL Estimated GFR ( Cheryl 55 >=60 mL/min/1.73m 2 Estimated GFR (Non- Elida 45 >=60 mL/min/1.73m 2 BUN Creatinine Ratio 14.6 Calcium 9.2 8.5-10.1 mg/dL Bilirubin Total 0.6 0.2-1.0 mg/dL Aspartate Amino Transferase 36 15-37 U/L Alanine Aminotransferase 48 16-63 U/L Alkaline Phosphatase 65 46-116 U/L Total Protein 7.4 6.4-8.2 g/dL Albumin Level 3.6 3.4-5.0 g/dL Globulin 3.8 Albumin Globulin Ratio 0.9 Performing Lab: see note ML - [facility] LB PSA Reviewed date:03/27/2024 02:19:00 PM Interpretation: Performing Lab: Notes/Report: [facility] , Prostate Specific Antigen Dx 6.19 <=4.00 ng/mL Performing Lab: see note ML - [facility] LB T4 Reviewed date:03/27/2024 02:19:00 PM Interpretation: Performing Lab: Notes/Report: [facility] , T4 Thyroxine 8.20 4.50-12.10 ug/dL Performing Lab: see note ML - [facility] LB TSH Reviewed date:03/27/2024 02:19:00 PM Interpretation: Performing Lab: Notes/Report: [facility] , Thyroid Stimulating Hormone 1.215 0.358-3.740 uIU/mL Performing Lab: see note ML - [facility] LB Reason For Referral Diagnosis 1 Unspecified atrial f ibrillation (I48.91) Referral Organization [facility] Medicine Referring Provider First Name Kev Referring Provider Last Name Enmanuel Referring Provider Speciality Family [facility] edy Referred Provider Mike Morelos Referred Provider Specialty Cardiology Referral Priority Routine Medications Medication SIG (Take, Route, Frequency, Duration) Notes Start Date End Date Status Jardiance 10 mg TAKE 1 TABLET DAILY Active Valsartan 160 MG TAKE 1 TABLETS BY [facility] EVERY DAY FOR 30 DAYS for 90 days Active Eliquis 5 MG 1 tablet Orally twic e a day for 90 days 09/19/2023 Active True Metrix Blood Glucose Test - USE 1 STRIP VIA METER ONCE A DAY for 90 Active Ozempic (2 MG/DOSE) 8 MG/3ML INJECT 2 MG UNDER THE SKIN WEEKLY Active Cetirizine HCl 10 MG 1 tablet Orally Onc e a day for 30 days 09/02/2023 Active Azelastine HCl 0.05 % 1 drop into affect ed eye Ophthalmic Daily for 90 days 06/13/2022 Active Doxazosin Mesylate 4 MG 2 tablets Orally Once a day for 90 days Active Singulair 10 MG 1 tablet Orally Once a day for 30 day(s) 09/02/2023 Active Montelukast Sodium 10 MG TAKE 1 TABLET B Y MOUTH EVERY DAY FOR 30 DAYS for 90 days Active dilTIAZem HCl ER Coated Beads 120 mg TAKE 1 CAPSULE DAILY Active Metoprolol Succinate ER 100 mg TAKE ONE AND ONE-HALF TABLETS ONCE DAILY Active Social History Tobacco Use: Social History Observation Description Date Details (start date - stop date) Never Smoker NA - NA Tobacco Use/Smoking Question Answer Notes Patient is a nonsmoker Alcohol Screen (Audit-C) Question Answer Notes Did you have a drink contain ing alcohol in the past year? Yes How often did you have 6 or more drinks on one occasion in the past year? Never (0 point) How many drinks did you have on a typical day when you were drinking in the past year? 1 or 2 drinks (0 point) Points 0 Interpretation Negative AUDIT-C (Standard) Question Answer Notes Did you have a drink containing alcohol in the p ast year? No Points 0 Interpretation Negative Problems Problem Type SNOMED Code ICD Code Onset Dates Problem Status W/U Status Risk Notes Problem 59496473 Essential (primary) hypertension (I10) Active confirmed Problem 68357924 Type 2 diabetes mellitus with other specified complication (E11.69) Active confirmed Problem 55755551 Unspecified atrial fibrillation (I48.91) Active confirmed Problem Cardiac arrhythmia (342930706) Other specified cardiac arrhythmias (I49.8) Active confirmed Problem Atrial flutter (7187863) Atrial flutter (I48.92) Active confirmed Problem Asthma (292312681) Asthma (J45.909) Active confirmed Problem Atrial fibrillation (disorder) (09538499) Afib (I48.91) Active confirmed Problem Sleep apnea (85377563) Sleep apnea (G47.30) Active confirmed Problem Atrial fibrillation (17039383) Atrial fibrillation with RVR (I48.91) Active confirmed Problem Leukocytosis (791920487) Elevated WBCs (D72.829) Active confirmed Problem 621613189 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) Active confirmed Problem Diabetes mellitus (81098125) Diabetes mellitus (E11.9) Active confirmed Vital Signs Blood pressure diastolic 78 mm Hg 09/19/2023 Height 66 in 09/19/2023 Blood pressure systolic 128 mm Hg 09/19/2023 Weight 244.6 lbs 09/19/2023 BMI 39.48 kg/m2 09/19/2023 Procedures Procedure Date Ordered Date Performed Result Body Sit e Colonoscopy 09/17/2023 Normal Sleep Study: Retitration BIPAP/CPAP 09/19/2023 N/A Encounters Encounter Location Date Provider Diagnosis [facility] [address] [place] [address] 07/07/2023 [facility] [address] [place] [address] 09/02/2023 [facility] [address] [place] [address] 12/01/2023 Kev Singer [facility] [address] [place] [address] 03/09/2024 Kev Singer Essential (primary) hypertension I10 ; Type 2 diabetes mellitus with other specified complication E11.69 ; Atrial fibrillation with RVR I48.91 ; Well adult Z00.00 ; Screening for colon cancer Z12.11 and Elevated PSA R97.20 [address] [place] [address] 09/19/2023 Kev Singer Unspecified atrial fibrillation I48.91 ; Type 2 diabetes mellitus with other specified complication E11.69 ; Sleep apnea G47.30 and Essential (primary) hypertension I10 [address] [place] [address] 09/18/2023 Kev Singer [address] [place] [address] 10/20/2023 Kev Singer [facility] [address] [place] [address] 10/24/2023 Kev Singer [address] [place] [address] 10/30/2023 Kev Singer [address] [address] 03/25/2024 Kev Logansegundo Unspecified atrial fibrillation I48.[address] [address] 03/27/2024 Kev Singer Elevated PSA R97.20 and Elevated WBCs D72.829 Assessments Encounter Date Diagnosis (ICD Code) Assessment Notes Treatment Notes Treatment Clinical Notes Section Notes 03/25/2024 Unspecified atrial fibrillation (ICD-10 - I48.91) 03/27/2024 Elevated PSA (ICD-10 - R97.20) 03/27/2024 Elevated WBCs (ICD-10 - D72.829) 03/09/2024 Essential (primary) hypertension (ICD-10 - I10) 03/09/2024 Type 2 diabetes mellitus with other specified complication (ICD-10 - E11.69) 09/19/2023 Unspecified atrial fibrillation (ICD-10 - I48.91) 09/19/2023 Type 2 diabetes mellitus with other specified complication (ICD-10 - E11.69) reveiewed sugars 09/19/2023 Sleep apnea (ICD-10 - G47.30) 03/09/2024 Atrial fibrillation with RVR (ICD-10 - I48.91) 03/09/2024 Well adult (ICD-10 - Z00.00) 09/19/2023 Essential (primary) hypertension (ICD-10 - I10) 03/09/2024 Screening for colon cancer (ICD-10 - Z12.11) 03/09/2024 Elevated PSA (ICD-10 - R97.20) Plan Of Treatment Pending Test Test Name Order Date CMP (COMPLETE METABOLIC PANEL) 4 CMP (COMPLETE METABOLIC PANEL) 4 HEMOGLOBIN A1C (GLYCO) 03/19/2023 LIPID PANEL (CHOL/TRIG/HDL/LDL) 03/19/19 24 CBC WITH DIFF 03/19/2023 PSA, PROSTATE-SPECIFIC ANTIGEN 4 URIC ACID 03/19/2023 PSA-FREE AND TOTAL 04/27/2023 Sleep Study: Retitration BIPAP/CPAP 10/2023 CBC W/AUTO DIFF 03/27/2024 STOOL OCCULT BLOOD 03/19/2023 THYROID PANEL (T4/TSH/FREE T3) 4 Free PSA 03/27/2024 Insurance Providers Payer Name Payer Address Payer Phone Subscriber Number Group Number Insured Name Patient Relationship to Insured Coverage Start Date Coverage End Date O [address] [place], [place] [id number] Bob Chase Self - patient is the insured 4 [employer] [address] [place] [address] [id number] Bob Chase Self - patient is the insured Medical (General) History Medical History History ICD Code Controlled type 2 diabetes m ellitus with other specified complication, unspecified group home insulin use status E11.69 Asymptomatic hypertension I10 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
--- OUTSIDE RECORDS SUMMARY | 2024-07-01 15:17 | XMS_ITS | Clinical Summary ---
Author Organization [facility] Address [address] [place], [place] [address] Care Team Providers Care Sole Splitter Name Role Phone Stalin Singer MD Primary Care Provider [phone] Allergies Active Allergy Reactions Criticality Noted Date Comments Nitroglycerin Other: See Comments 11/26/2018 Medications hydrALAZINE (APRESOLINE) 50 mg tablet Take 1 tablet by mouth twice daily. 9 Active metoprolol succinate ER (TOPROL XL) 25 mg 24 hr tablet Take 1 tablet by mouth twice daily. 9 Active docusate sodium (COLACE) 100 mg capsule Take 1 capsule by mouth twice daily. 40 capsule Active Additional Information Patient not taking.Reason: Other, Reported on 02/05/2019 iv contrast (will be provided with radiology test)Indicatio ns:Renal cell carcinoma of left kidney (HCC) CT ABD/PEL -Inject, intravenously, once for 1 [...] in the CT contrast administration guidelines link. 1 Each 9 Active enteric contrast (will be provided with radiology test)Indicatio ns:Renal cell carcinoma of left kidney (HCC) For CT ABD/PEL W IVCON Routine order Administer, As Directed One Time Only, via Oral, Rectal, both Oral and Rectal, Enteric Tube, Stoma or Indwelling Catheter, Enteric Contrast as designated per enteric contrast guidelines 1 Each 9 Active iv contrast (will be provided with radiology test)Indicatio ns:Left renal mass CT ABD/PEL -Inject, intravenously, once for 1 [...] in the CT contrast administration guidelines link. 1 Each 0 Active enteric contrast (will be provided with radiology test)Indicatio ns:Left renal mass For CT ABD/PEL W IVCON Routine order Administer, As Directed One Time Only, via Oral, Rectal, both Oral and Rectal, Enteric Tube, Stoma or Indwelling Catheter, Enteric Contrast as designated per enteric contrast guidelines 1 Each 0 Active Active Problems Problem Noted Date Diagnosed Date Renal neoplasm 12/22/2018 Left renal mass Social History Tobacco Use Types Packs/Day Years Used Date Smoking Tobacco: Never Smokeless Tobacco: Never PHQ-2 Answer Date Recorded PHQ2 Score 0 12/22/2018 Area Deprivation Index Answer Date Mau rded National Score (1-100), lower number is lower ri sk Not on file 01/18/2020 State Score (1-10), lower number is lower risk N ot on file 01/18/2020 Data from: https://www.neighborhoodatlas.medicine.[facility].edu/. Last address used for calculation Not on file 01/18/2020 Sex and Gender Information Value Date Recorded Sex Assigned at Not on file Legal Sex Male 11:01 AM EDT Gender Identity Not on file Sexual Orientation Not on file Last Filed Vital Signs Vital Sign Reading Time Taken Comments Blood Pressure 179/81 02/05/2019 10:26 AM EST Pulse 64 02/05/2019 10:26 AM EST Temperature 37.1 C (98.8 F) 12/25/2018 7:39 AM EST Respiratory Rate 18 12/25/2018 7:39 AM EST Oxygen Saturation 94% 12/25/2018 7:39 AM EST Inhaled Oxygen Concentration - - Weight 120.5 kg (265 lb 9.6 oz) 019 10:26 AM EST Height 167.6 cm (5' 6 ) 02/05/2019 10:2 6 AM EST Body Mass Index 42.87 02/05/2019 10:26 AM EST Plan of Treatment Health Maintenance Due Date Last Done Comments Anxiety Screening 1980 Depression Screening 1980 HIV Screening 1980 Hepatitis C Screening 1980 DTaP,Tdap,Td Vaccine (1 - Tdap) [address] Colonography 11/11/2007 Cologuard (FIT-DNA) 11/11/2007 Colonoscopy 11/11/2007 Colorectal Cancer Screening 11/11/2007 Fecal Occult Blood 11/11/2007 Prostate Cancer Screening Discussion 11/11/2007 Sigmoidoscopy 11/11/2007 Pneumococcal Vaccine: 50+ (1 of 1 - PCV) 2012 Shingrix Vaccine (1 of 2) 2012 Diabetes Screening 06/20/2022 06/21/2019, 1 02/24/2018, 12/24/2018, Additional history exists Covid-19 Vaccine ( - 2023-2 5 season) 2023 Influenza Vaccine (Season Ended) 2024 RSV Vaccine (1 - 1-dose 75+ series) 2037 Procedures Procedure Name Priority Date/Time Associated Diagnosis Comments BASIC METABOLIC PANEL Routine 06/21/2019 7:55 AM EDT Renal cell carcinoma of left kidney (HCC) from Last 3 Months or Most Recently Relevant to Health Maintenance Results * (ABNORMAL) BASIC METABOLIC PNL (06/21/2019 7:55 AM EDT) Glucose 148(H) 74 - 99 mg/dL 06/21/2019 8:37 AM EDT [facility] Comment: The [place] Diabetes Association (ADA) provides guidance for cutoff [...] Standards of Medical Care in Diabetes 2016, [place] Diabetes Association. Diabetes Care. 2016.39(Suppl 1). BUN 10 9 - 24 mg/dL 06/21/2019 8:37 AM EDT [facility] Creatinine 1.28(H) 0.73 - 1.22 mg/dL 06/21/2019 8:37 AM EDT [facility] Sodium 139 136 - 144 mmol/L 06/21/2019 8:37 AM EDT [facility] Potassium 4.5 3.7 - 5.1 mmol/L 06/21/2019 8:37 AM EDT [facility] Chloride 106(H) 97 - 105 mmol/L 06/21/2019 8:37 AM EDT [facility] CO2 22 22 - 30 mmol/L 06/21/2019 8:37 AM EDT [facility] Anion Gap 11 9 - 18 mmol/L 06/21/2019 8:37 AM EDT [facility] Calcium 8.9 8.5 - 10.2 mg/dL 06/21/2019 8:37 AM EDT [facility] eGFR- >60 06/21/2019 8:37 AM EDT [facility] eGFR-All Other Races 58 . 06/21/2019 8:37 AM EDT [facility] Comment: eGFR (Estimated GFR) Units of measure: [...] eGFR may not accurately reflect actual GFR. 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
--- OUTSIDE RECORDS SUMMARY | 2024-07-01 15:17 | XMS_ITS | Encounter Summary ---
Author Organization [facility] Address [address] [facility] [place] [address] Care Team Providers Care Shut Off Worker Name Role Phone Stalin Singer MD Primary Care Provider [phone] Rachel Mckeon TECHNICAL SERVICE SPECIALIST Unavailable [phone] Leon Maria DO Unavailable [phone] Encounter Details Date Type Department Care Team (Late st Contact Info) Description 06/18/2024 Tayo flowsheet [facility] [address] [place] [address] Leon Maria DO [address] [place] [address] Social History Tobacco Use Types Packs/Day Years [...] on filedocumented in this encounter Care Teams Shut Off Worker Relationship Specialty Start Date End Date Stalin Singer MD PCP - General Family Medicine 01/30/24 Rachel Mckeon NP [address] [place] [address] Nurse Practitioner Neurology 02/13/24 Leon Maria DO [address] [place] [address] Otolaryngology 02/13/24 documented as of this encounter
--- OUTSIDE RECORDS SUMMARY | 2024-07-01 15:17 | XMS_ITS | Encounter Summary ---
Author Organization [facility] Address [address] [place] [address] Care Team Providers Care Jump Roll Operator Name Role Phone Stalin Singer MD Primary Care Provider [phone] Source Comments In the event this information is protected by the Federal Confidentiality of Alcohol and Drug AbusePatient Records regulations: The Federal rules restrict any use of the information to criminally investigate or prosecute any alcohol or drug abuse patient.[facility] Encounter Details Date Type Department Care Team (Late st Contact Info) Description 12/22/2018 Surgical [facility] [address] [place] [address] Jono Kelley MD [address] [place] [address] Social History Tobacco Use Types Packs/Day Years Used Date Smoking Tobacco: Never Smokeless Tobacco: Never PHQ-2 Answer Date Recorded PHQ2 Score 0 12/22/2018 Sex and Gender Information Value Date Recorded Sex Assigned at Not on file Legal Sex Male 11:01 AM EDT Gender Identity Not on file Sexual Orientation Not on file documented as of this encounter Plan of Treatment Not on file documented as of this encounter Visit Diagnoses Not on filedocumented in this encounter Care Teams Jump Roll Operator Relationship Specialty Start Date End Date Stalin Singer MD PCP - General Family Medicine 11/26/18 documented as of this encounter
--- OUTSIDE RECORDS SUMMARY | 2024-07-01 15:17 | XMS_ITS | Encounter Summary ---
Author Organization [facility] Address [address] [facility] [place] [address] Care Team Providers Care Director Of Healthcare Systems Name Role Phone Stalin Singer MD Primary Care Provider [phone] Rachel Mckeon RADIOLOGY ASSISTANT Unavailable [phone] Leon Maria DO Unavailable [phone] Encounter Details Date Type Department Care Team (Latest Contact Info) Description 06/18/2024 Travel Social History Tobacco Use Types Packs/Day Years [...] on filedocumented in this encounter Care Teams Director Of Healthcare Systems Relationship Specialty Start Date End Date Stalin Singer MD PCP - General Family Medicine 01/30/24 Rachel Mckeon NP [address] [place] [address] Nurse Practitioner Neurology 02/13/24 Leon Maria DO [address] [place] [address] Otolaryngology 02/13/24 documented as of this encounter
--- OUTSIDE RECORDS SUMMARY | 2024-07-01 15:17 | XMS_ITS | Clinical Summary ---
Author Organization [facility] Address [address] [place] [address] Care Team Providers Care Fitness Supervisor Name Role Phone Stalin Singer MD Primary Care Provider [phone] Allergies Active Allergy Reactions Criticality Noted Date Comments Nitroglycerin Other (See Comments) 11/26/2018 Patient states that he was given this medication and did not need it then I crashed Medications doxazosin (CARDURA) 4 MG tablet Take 1 tablet by mouth nightly Active hydroCHLOROthia zide (HYDRODIURIL) 25 MG tablet Take 1 tablet by mouth daily Active empagliflozin (JARDIANCE) 10 MG tablet Take 1 tablet by mouth daily Active metFORMIN (GLUCOPHAGE) 500 MG tablet Take 1 tablet by mouth 2 times daily (with meals) Active metoprolol (LOPRESSOR) 100 MG tablet Take 1 tablet by mouth 2 times daily Active Semaglutide, 1 MG/DOSE, (OZEMPIC, 1 MG/DOSE,) 2 MG/1.5ML SOPN Inject 1 Units into the skin Active blood glucose test strips (TRUE METRIX BLOOD GLUCOSE TEST) strip 1 each by In Vitro route daily As needed. Active valsartan (DIOVAN) 160 MG tablet Take 1 tablet by mouth daily Active azelastine (OPTIVAR) 0.05 % ophthalmic solution 1 drop as needed Active metoprolol succinate (TOPROL XL) 25 MG extended release tablet Take 1 tablet by mouth daily 06/16/2023 Active OZEMPIC, 2 MG/DOSE, 8 MG/3ML SOPN sc injection Inject 2 mg into the skin every 7 days 07/29/2023 Active Active Problems Problem Noted Date Diagnosed Date Elevated PSA 05/22/2023 Encounters Date Type Department Care Team Description 04/05/2024 3:30 PM EST Office Visit [facility] UROLOGY [address] [place] [address] Cristiano Hay MD Elevated PSA (Primary Dx) from Last 3 Months Family History Medical History Relation Name Comments Alcohol Abuse Father Heart Disease Father Ovarian Cancer Mother Heart Disease Sister Relation Name Status Comments Father Mother Sister Alive Social History Tobacco Use Types Packs/Day Years Used Date Smoking Tobacco: Never Assessed Sex and Gender Information Value Date Recorded Sex Assigned at Not on file Legal Sex Male 1:22 PM EDT Gender Identity Male 05/22/2023 3:10 PM EDT Sexual Orientation Not on file Last Filed Vital Signs Vital Sign Reading Time Taken Comments Blood Pressure 118/73 04/05/2024 4:02 PM EST Pulse 70 04/05/2024 4:02 PM EST Temperature 36.3 C (97.3 F) 04/05/2024 4:02 PM EST Respiratory Rate - - Oxygen Saturation - - Inhaled Oxygen Concentration - - Weight 104.3 kg (230 lb) 04/05/2024 4:02 PM EST Height 167.6 cm (5' 6 ) 08/28/2023 2:37 PM EDT Body Mass Index 37.12 08/28/2023 2:37 PM EDT Plan of Treatment Upcoming Encounters Date Type Department Care Team (Latest Contact Info) Description 07/12/2024 4:00 PM EDT Office Visit [facility] UROLOGY Part [address] [place] [address] Cristiano Hay MD [address] [place] [address], [address] [place] [address] 3M PSA 08/20/2024 Hospital Encounter [facility] LAB [address] [place] [address] 08/27/2024 4:00 PM EDT Appointment [facility] Ultrasound [address] [place] [phone] EPIC / ISA W OFC KACEY 09/06/2024 4:00 PM EDT Office Visit [facility] UROLOGY Part of [facility] [address] [facility] [address] [place] [address] Cristiano Hay MD [address] [facility], [address] [place] [address] 1wk US & chest xray Health Maintenance Due Date Last Done Comments Depression Screen 1974 HIV screen 1977 Hepatitis C screen 1980 DTaP/Tdap/Td vaccine (1 - Tdap) 1981 Diabetes screen 1997 Lipids 2002 Colonoscopy 11/11/2007 Colorectal Cancer Screen 11/11/2007 FIT/FOBT: Average risk 11/11/2007 Fecal-DNA (Cologuard): Average risk 11/11/2007 Sigmoidoscopy/CT colonography 11/11/2007 Pneumococcal 50+ years Vaccine (1 of 1 - PCV) 2012 Shingles vaccine (1 of 2) 2012 Respiratory Syncytial Virus (RSV) or age 60 yrs+ (1 - Risk 60-74 years 1-dose series) 2022 COVID-19 Vaccine ( - 2023- season) 2023 Flu vaccine (Season Ended) 2024 Prostate Specific Antigen (PSA) Screening or Monitoring 03/27/2025 03/27/2024, 08/21/2023, 03/24/2021, Additional history exists Hepatitis A vaccine Aged Out No longe r eligible based on patient's age to complete this topic Hepatitis B vaccine Aged Out No longe r eligible based on patient's age to complete this topic Hib vaccine Aged Out No longer eligi ble based on patient's age to complete this topic Meningococcal (ACWY) vaccine Aged Out No longer eligible based on patient's age to complete this topic Meningococcal B vaccine Aged Out No l onger eligible based on patient's age to complete this topic Polio vaccine Aged Out No longer elig ible based on patient's age to complete this topic Procedures Procedure Name Priority Date/Time Associated Diagnosis Comments PSA, DIAGNOSTIC Routine 03/27/2024 Elevated PSA from Last 3 Months or Most Recently Relevant to Health Maintenance Results * PSA, Diagnostic (03/27/2024) PSA 6.19 ng/mL BLOOD SPECIMEN / Unknown 03/27/2024 us Domonique Rick TOE STRIPPER - ROUND UP RING HAND CHEMISTRY ORDERABLE S Final Result from Last 3 Months or Most Recently Relevant to Health Maintenance Insurance [employer] Care Teams Fitness Supervisor Relationship Specialty Start Date End Date Stalin Singer MD [address] [place] [address] PCP - General Family Medicine 05/23/23
== END 2024-07-01 15:13 | disposition home or self-care (01) ==
LOC: LAB 15:14
PROVIDERS: PCP Family Medicine; Visit Provider Urology
DX: R97.20 Elevated prostate specific antigen [PSA] (principal)
CPT/HCPCS: 36415; 84153

== ENCOUNTER 2024-07-30 06:17 | Outpatient (OUT) | payer OTHER, SELFPAY ==
[2024-07-30 06:31] LABS: Basophils Absolute Auto 0.1 10^3/uL (0.0-0.1); Basophils Percent Auto 0.7 % (0.2-2.0); Eosinophils Absolute Auto 0.3 10^3/uL (0.0-0.7); Eosinophils Percent Auto 2.9 % (0.9-7.0); Hematocrit 45.6 % (42.0-54.0); Hemoglobin 15.9 g/dL (14.0-18.0); Immature Granulocytes Abs Auto 0.03 10^3/uL (0.00-0.03); Immature Granulocytes Pct Auto 0.3 % (0.0-0.5); Lymphocytes Absolute Auto 1.9 10^3/uL (1.2-3.8); Lymphocytes Percent Auto 18.4 % (20.5-60.0); Mean Corpuscular HGB Conc 34.9 g/dL (29.9-35.2); Mean Corpuscular Hemoglobin 31.1 pg (25.9-34.0); Mean Corpuscular Volume 89.1 fL (80.0-94.0); Monocytes Absolute Auto 1.1 10^3/uL (0.3-0.8); Monocytes Percent Auto 10.6 % (1.7-12.0); Neutrophils Absolute Auto 6.8 10^3/uL (1.4-6.5); Neutrophils Percent Auto 67.1 % (43.0-75.0); Platelet Count 220 10^3/uL (150-450); Red Blood Count 5.12 10^6/uL (4.70-6.10); Red Cell Distribution Width 13.2 % (11.0-15.0); White Blood Count 10.2 10^3/uL (4.0-11.0)
[2024-07-30 06:38] LABS: Anion Gap 11.9; BUN Creatinine Ratio 14.1; Calcium 9.3 mg/dL (8.5-10.1); Carbon Dioxide 27.5 mmol/L (21.0-32.0); Chloride 104 mmol/L (98-107); Estimated GFR (African America 58 (>=60 mL/min/1.73m^2); Estimated GFR (Non-African Ame 48 (>=60 mL/min/1.73m^2); Glucose 115 mg/dL (74-106); Potassium 4.4 mmol/L (3.5-5.1); Sodium 139 mmol/L (136-145)
--- OUTSIDE RECORDS SUMMARY | 2024-08-03 09:49 | XMS_ITS | Encounter Summary ---
Author Organization [facility] Address [address] [place] [address] Care Team Providers Care Primary Therapist Name Role Phone Stalin Singer MD Primary Care Provider [phone] Encounter Details Date Type Department Care Team (Late st Contact Info) Description 05/27/2023 Orders Only [facility] UROLOGY [address] [place] [address] ProviderYogi MD Social History Tobacco Use Types Packs/Day [...] Department Care Team (Latest Contact Info) Description 08/16/2024 11:30 AM EDT Appointment [facility] Ultrasound [address] [place] [address] [phone] EPIC / ISA W OFC KACEY 08/20/2024 Hospital Encounter [facility] LAB [address] [place] [address] [phone] 08/30/2024 7:45 AM EDT Office Visit [facility] UROLOGY [address] [place] [address] Cristiano Hay MD [facility], [address] [place] [phone] review psa done 07/01 and imaging scheduled for 08/03 (us and cxr) documented as of this encounter Procedures Procedure [...] Anatomical Region Laterality Modality Other Historical Provider IMG MRI ORDERABLES Final Result * MRI abdomen (04/12/2021 1:16 PM EST) Anatomical Region Laterality Modality Other [facility] Provider IMG MRI ORDERABLES Final Result * CT abdomen pelvis w contrast (03/27/2021 1:18 PM EST) Anatomical Region Laterality Modality Computed Tomogra phy [facility] Provider IMG CT ORDERABLES Final R esult * PSA (03/24/2021 1:09 PM EST) Blood BLOOD SPECIMEN / Unknown [facility] Provider CHEMISTRY ORDERABLES Ariella l Result * Surgical Pathology (12/22/2018 1:23 PM EST) Tissue SPECIMEN FROM UNSPECIFIED BODY SITE / Unknown [facility] Provider PATHOLOGY/CYTOLOGY ORDERA BLES Final Result * PSA (11/21/2018 11:56 AM EDT) Blood BLOOD SPECIMEN / Unknown us Historical Provider CHEMISTRY ORDERABLES Ariella l Result * CT abdomen pelvis w contrast (11/05/2018 1:12 PM EDT) Anatomical Region Laterality Modality Computed Tomogra phy us Historical Provider IMG CT ORDERABLES Final R esult documented in this encounter Visit Diagnoses Not on filedocumented in this encounter Care Teams Primary Therapist Relationship Specialty Start Date End Date Stalin Singer MD [address] [place] [address] PCP - General Family Medicine 05/23/23 documented as of this encounter
--- OUTSIDE RECORDS SUMMARY | 2024-08-03 09:49 | XMS_ITS | Encounter Summary ---
Author Organization [facility] Address [address] [place] [address] Phone Care Team Providers Care Hospice Registered Nurse Name Role Phone Stalin Singer MD Primary Care Provider [phone] Andra Ramirez SENIOR BI DEVELOPER-BARK PRESS OPERATOR Unavailable [phone] Encounter Details Date Type Department Care Team (Late st Contact Info) Description 09/19/2023 Scanned Document [facility] [address] [place] [phone] Scanning, Generic Provider Social History Tobacco Use [...] Description 05/09/2025 4:00 PM EDT Office Visit [facility] [address] [phone] Andra Ramirez, SENIOR BI DEVELOPER-BARK PRESS OPERATOR [address] [place] [address] documented as of this encounter Visit Diagnoses Not on filedocumented in this encounter Care Teams Hospice Registered Nurse Relationship Specialty Start Date End Date Stalin Singer MD [address] [facility] [place] [address] PCP - General Family Medicine 11/13/22 Andra Ramirez, SENIOR BI DEVELOPER-BARK PRESS OPERATOR [address] [facility] [address], [address] [place] [address] PCP - MMO ACO PCP 05/11/24 06/09/24 documented as of this encounter
--- OUTSIDE RECORDS SUMMARY | 2024-08-03 09:49 | XMS_ITS | Encounter Summary ---
Author Organization [facility] Address [address] [facility] [place] [address] Care Team Providers Care Film Painter Name Role Phone Stalin Singer MD Primary Care Provider [phone] Rachel Mckeon WELDER AND FITTER Unavailable [phone] Leon Maria DO Unavailable Encounter Details Date Type Department Care Team (Late st Contact Info) Description 06/25/2024 Abstract [facility] [address] [place] [address] Randee Christianson MA Social History Tobacco Use [...] Care Team (Late st Contact Info) Description 08/20/2024 3:45 PM EDT Office Visit [facility] [address] [place] [address] Leon Maria DO [address] [place] [address] documented as of this encounter Visit Diagnoses Not on filedocumented in this encounter Care Teams Film Painter Relationship Specialty Start Date End Date Stalin Singer MD PCP - General Family Medicine 01/30/24 Rachel Mckeon NP Nurse Practitioner Neurology 02/13/24 Leon Maria DO [address] [place] [address] Otolaryngology 02/13/24 documented as of this encounter
--- OUTSIDE RECORDS SUMMARY | 2024-08-03 09:49 | XMS_ITS | Encounter Summary ---
Author Organization [facility] Address [address] [place] [address] Care Team Providers Care Marketing Strategy Manager Name Role Phone Stalin Singer MD Primary Care Provider [phone] Reason for Referral * Specialty Diagnoses / Procedures Referred By Callum long Referred To Contact [facility] [address] [place] [address] Referral ID Status Reason Start Date Expiration Date Visits Re quested Visits Authorized Comments This order was created through External Result Entry Encounter Details Date Type Department Care Team (Late st Contact Info) Description 05/12/2023 Orders Only [facility] UROLOGY Part of [address] [place] [phone] Yogi Soto MD Social History Tobacco Use [...] Info) Description 08/16/2024 11:30 AM EDT Appointment [address] [phone] EPIC / ISA W OFC KACEY 08/20/2024 Hospital Encounter [facility] LAB [address] [place] [address] 08/30/2024 7:45 AM EDT Office Visit [facility] UROLOGY Part of [facility] [address] [facility] [address] [place] [phone] Cristiano Hay MD [address] [facility], [address] [place] [address] review psa done 07/01 and imaging scheduled for 08/03 (us and cxr) documented as of this encounter Procedures Procedure Name Priority Date/Time Associated Diagnosis Comments AMB EXTERNAL REFERRAL TO UROLOGY Routine 05/05/2023 8:38 AM EDT CBC Routine 04/26/2023 8:41 AM EDT documented in this encounter Results * Amb External Referral To Urology (05/05/2023 8:38 AM EDT) Historical Provider [facility] AMB EXT REFERRALS Fin al Result * CBC (04/26/2023 8:41 AM EDT) Blood BLOOD SPECIMEN / Unknown Historical Provider HEMATOLOGY ORDERABLES Fin al Result documented in this encounter Visit Diagnoses Not on filedocumented in this encounter Care Teams Marketing Strategy Manager Relationship Specialty Start Date End Date Stalin Singer MD [address] [place] [address] PCP - General Family Medicine 05/23/23 documented as of this encounter
--- OUTSIDE RECORDS SUMMARY | 2024-08-03 09:49 | XMS_ITS | Clinical Summary ---
Author Organization [facility] Address [address] [place] [address] Care Team Providers Care Paste Mixer Liquid Name Role Phone Stalin Singer MD Primary Care Provider [phone] Allergies Active Allergy Reactions Criticality Noted Date [...] Encounters Date Type Department Care Team Description 07/08/2024 Telephone [facility] UROLOGY [address] [place] [address] Domonique Rick, RADIOLOGY SPECIALIST - SEWER PIPE CLEANER 07/07/2024 Results Follow-Up [facility] UROLOG[facility] [address] [place] [address] Domonique Rick, RADIOLOGY SPECIALIST - SEWER PIPE CLEANER 07/07/2024 Orders Only [facility] [address] [place] [address] Marky Holm MA Elevated PSA from Last 3 Months Family History Medical [...] Info) Description 08/16/2024 11:30 AM EDT Appointment [facility] Ultrasound [address] [place] [address] EPIC / ISA W OFC KACEY 08/20/2024 Hospital Encounter [facility] [address] [place], [place] [phone] 08/30/2024 7:45 AM EDT Office Visit [facility] UROLOGY Part of [facility] [address] [facility] [address] [place] [phone] Cristiano Hay MD [address] [facility], [address] [place], [place] [phone] review psa done 07/01 and imaging scheduled for 08/03 (us and cxr) Health Maintenance Due Date Last Done Comments [...] years 1-dose series) 2022 COVID-19 Vaccine ( season) 2023 Flu vaccine (Season Ended) 2024 Prostate Specific Antigen (PSA) Screening or Monitoring 07/01/2025 07/01/2024, 03/27/2024, 08/21/2023, Additional history exists Hepatitis A vaccine Aged [...] Date/Time Associated Diagnosis Comments PSA, DIAGNOSTIC Routine 07/01/2024 3:25 PM EDT Elevated PSA from Last 3 Months Results * (ABNORMAL) PSA, Diagnostic (07/01/2024 3:25 PM EDT) PSA 5.90(H) ng/mL BLOOD SPECIMEN / Unknown 07/01/2024 3:25 PM EDT us Cristiano Hay MD CHEMISTRY ORDERABLES Final R esult from Last 3 Months Insurance [employer] Care Teams Paste Mixer Liquid Relationship Specialty Start Date End Date Stalin Singer MD [address] [place] [address] PCP - General Family Medicine 05/23/23
--- OUTSIDE RECORDS SUMMARY | 2024-08-03 09:49 | XMS_ITS | Clinical Summary ---
Author Organization [facility] Address [address] [place], [place] [phone] Care Team Providers Care Studio Director Name Role Phone Stalin Singer MD Primary Care Provider [phone] Allergies Active Allergy Reactions Criticality Noted Date [...] N ot on file 01/18/2020 Data from: [email or web address] Last address used for calculation Not on [...] - 99 mg/dL 06/21/2019 8:37 AM EDT [facility] Comment: The [place] Diabetes Association (ADA) provides guidance for cutoff [...] Standards of Medical Care in Diabetes 2016, [place] Diabetes Association. Diabetes Care. 2016.39(Suppl 1). BUN 10 9 - 24 mg/dL 06/21/2019 8:37 AM EDT [facility] Creatinine 1.28(H) 0.73 - 1.22 mg/dL 06/21/2019 8:37 AM EDT [facility] Sodium 139 136 - 144 mmol/L 06/21/2019 8:37 AM EDT [facility] Potassium 4.5 3.7 - 5.1 mmol/L 06/21/2019 8:37 AM EDT [facility] Chloride 106(H) 97 - 105 mmol/L 06/21/2019 8:37 AM EDT [facility] CO2 22 22 - 30 mmol/L 06/21/2019 8:37 AM EDT [facility] Anion Gap 11 9 - 18 mmol/L 06/21/2019 8:37 AM EDT [facility] Calcium 8.9 8.5 - 10.2 mg/dL 06/21/2019 8:37 AM EDT [facility] eGFR- >60 06/21/2019 8:37 AM EDT [facility] eGFR-All Other Races 58 . 06/21/2019 8:37 AM EDT [facility] Comment: eGFR (Estimated GFR) Units of measure: [...] us Jono Kelley MD LABORATORY Final Result [facility] [address] [place] [address] [facility] [address] [place], [place] from Last 3 Months or Most Recently Relevant to Health Maintenance Insurance [employer] PPO Advance Directives Documents on File Type Date Recorded Patient Presser Machine Expl anation Advance Directive(s) 12/17/2018 1:30 PM Care Teams Studio Director Relationship Specialty Start Date End Date Stalin Singer MD PCP - General Family Medicine 11/26/18
--- OUTSIDE RECORDS SUMMARY | 2024-08-03 09:49 | XMS_ITS | Clinical Summary ---
Author Organization [facility] Address [address] [place] [address] Phone Care Team Providers Care Chocolate Packer Name Role Phone Stalin Singer MD Primary Care Provider [phone] Allergies No known active allergies Medications Jardiance [...] Encounters Date Type Department Care Team Description 07/14/2024 Patient Risk Score ACO Care Management [address] [facility] [address] [place] [address] 05/31/[address] [place] [address] Sita Uribe RN Results 05/28/2024 Orders Only [facility] [address] [place] [address] Mike Morelos DO 05/06/2024 9:40 AM EDT Office Visit [address] [address] Mike Morelos DO Paroxysmal atrial fibrillation (Multi); Diabetes mellitus type II, non insulin dependent (Multi); Encounter for lipid screening for cardiovascular disease; Essential hypertension; BMI 36.0-36.9,adult; Hypertensive left ventricular hypertrophy, without heart failure; Never smoked tobacco 05/06/2024 Travel from Last 3 Months Family History [...] Description 05/09/2025 4:00 PM EDT Office Visit [facility] [address] [facility] [address] [place] [address] Andra Ramirez, EQUIPMENT ASSOCIATE-INSPECTOR TOOL [address] [facility] [address], [address] [place] [address] Health Maintenance Due Date Last Done Comments [...] HIE Glucose 89 70 - 100 mg/dL [facility] Comment:Random Glucose Refer ence Range is dependent on time and content of last meal. Glucose of more than 200 mg/dL in a nonstressed, ambulatory subject supports the diagnosis of Diabetes Mellitus. ADA recommended reference range NON-[facility] HIE Blood Urea Nitrogen 22 7 - 25 mg/dL [facility] NON-[facility] HIE Creatinine 1.36(H) 0.70 - 1.30 mg/dL [facility] NON-UH HIE ESTIMATED GFR 59.207 mL/Min [facility] NON-[facility] HIE Sodium 140 136 - 145 mmol/L [facility] NON-[facility] HIE Potassium 4.5 3.5 - 5.1 mmol/L [facility] NON-[facility] HIE Chloride 108(H) 98 - 107 mmol/L [facility] NON-[facility] HIE Carbon Dioxide 26.8 21.0 - 31.0 mmol/L [facility] NON-[facility] HIE Anion Gap 9.7 6.0 - 15.0 meq/L [facility] NON-[facility] HIE Calcium 9.4 8.6 - 10.3 mg/dL [facility] Plasma specimen or serum specimen or whole blood specimen 05/28/2024 9:21 AM EDT Mike Morelos DO LAB BLOOD ORDERABLES Final Result [facility] [address] [place] [address], [facility] [address] [place] [address] * NON-[facility] HIE Thyroid Stimulating Hormone (05/28/2024 9:21 AM EDT) NON-[facility] HIE Thyroid Stimulating Hormone 1.34 0.45 - 5.33 u[iU]/mL [facility] Comment:PERFORMED BY:[facility] [place], [place] [id number] MEDICAL DIRECTORMOJORDAN ROMANO M.D. [facility] Plasma specimen or serum specimen or whole blood specimen 05/28/2024 9:21 AM EDT Mike Morelos DO LAB BLOOD ORDERABLES Final Result Performing Organization Address City/[facility]/ZIP Co de Phone Number [facility] [address] [place] [address], [facility] [address] [place] [address] * (ABNORMAL) NON-[facility] HIE Lipid Panel (05/28/2024 9:21 AM EDT) NON-[facility] HIE Cholesterol 156 140 - 200 mg/dL [facility] Comment:Chol less than 200 m g/dl low risk Chol 201-239 mg/dl borderline risk Chol 240 mg/dl and greater high risk NON-UH HIE HDL Cholesterol 34 23 - 92 mg/dL [facility] Comment:HDL CHOL ATP-III CLA SSIFICATION Cardiovascular Risk HDL > or equal to 60 mg/dL LOW HDL < 40 mg/dL HIGH NON-UH HIE Triglyceride w/Reflex 99 0 - 149 mg/dL [facility] Comment:TRIG ATP III CLASSIF ICATION TRIG less than 150 mg/dL Normal TRIG 150-199 mg/dL Borderline high TRIG 200-500 mg/dL High TRIG greater than 500 mg/dL Very high Standard traceable to the Center for Disease Conrtrol and Prevention (CDC) test method. NON-[facility] HIE LDL Cholesterol,Calcula susan 102(H) 0 - 100 mg/dL [facility] Comment:LDL ATP III CLASSIFI CATION LDL less than 100 mg/dL Optimal LDL 100-129 mg/dL Near or above optimal LDL 130-159 mg/dL Borderline high LDL 160-189 mg/dL High LDL greater than 189 mg/dL Very high NON-UH HIE VLDL CHOLESTEROL 19 mg/dL [facility] NON-[facility] HIE Chol/HDL Ratio 4.6 <5.0 [facility] Plasma specimen or serum specimen or whole blood specimen 05/28/2024 9:21 AM EDT us Mike Morelos DO LAB BLOOD ORDERABLES Final Result [facility] [address] [place] [address], [facility] [address] [place] [address] * NON-[facility] HIE Free T4 (Free Thyroxine) (05/28/2024 9:21 AM EDT) NON-[facility] HIE Free T4 (Free Thyroxine) 0.91 0.61 - 1.12 ng/dL [facility] Plasma specimen or serum specimen or whole blood specimen 05/28/2024 9:21 AM EDT Mike Morelos LAB BLOOD ORDERABLES Final Result [facility] [address] [place] [address], [facility] [address] [place] [address] * NON-[facility] HIE Aspartate Amino Transferase (05/28/2024 9:21 AM EDT) NON-[facility] HIE Aspartate Amino Transferase 33 13 - 39 U/L [facility] Plasma specimen or serum specimen or whole blood specimen 05/28/2024 9:21 AM EDT Mike Rigginsdon LAB BLOOD ORDERABLES Final Result Performing Organization Address [facility]/ZIP Co de Phone Number [facility] [address] [place] [address], [facility] [address] [place] [address] * NON-[facility] HIE Alanine Aminotransferase (05/28/2024 9:21 AM EDT) NON-[facility] HIE Alanine Aminotransferase 40 7 - 52 U/L [facility] Plasma specimen or serum specimen or whole blood specimen 05/28/2024 9:21 AM EDT Mike Rigginsdon LAB BLOOD ORDERABLES Final Result Performing Organization Address City/[facility]/ZIP Co de Phone Number [facility] [address] [place] [address], [facility] [address] [place] [address] * NON-[facility] HIE A1C with Estimated Average Glu (05/28/2024 9:21 AM EDT) NON-UH HIE Hemoglobin A1C 5.5 4.3 - 5.6 % [facility] Comment:Increased risk for d iabetes: 5.7 - 6.4 diabetes: >6.4 glycemic control for adults with diabetes: <7.0 NON-UH HIE Estimated Average Glucose 111 mg/dL [facility] Comment:PERFORMED BY:[facility] [place], [place] [phone] MEDICAL DIRECTORSOLIS ROMANO M.D. [facility] Whole blood specimen 05/28/2024 9:21 AM EDT Mike Morelos DO LAB BLOOD ORDERABLES Final Result [facility] [address] [place] [address], [facility] [address] [place] [place] [address] from Last 3 Months Insurance [employer]CIAL [employer] COMMERCIAL Care Teams Chocolate Packer Relationship Specialty Start Date End Date Stalin Singer MD [address] [place] [address] PCP - General Family Medicine 11/13/22
--- OUTSIDE RECORDS SUMMARY | 2024-08-03 09:49 | XMS_ITS | Encounter Summary ---
Author Organization [facility] Address [address] [place] [address] Care Team Providers Care Medical Research Associate Name Role Phone Stalin Singer MD Primary Care Provider [phone] Source Comments In the event this information is protected by the Federal Confidentiality of Alcohol and Drug AbusePatient Records regulations: The Federal rules restrict any use of the information to criminally investigate or prosecute any alcohol or drug abuse patient.[facility] Encounter Details Date Type Department Care Team (Late st Contact Info) Description 12/22/2018 [facility] G090 [address] [place] [address] Jono Kelley MD [address] [facility], [address] [place] [address] Social History Tobacco Use Types Packs/Day Years [...] filedocumented in this encounter Care Teams Medical Research Associate Relationship Specialty Start Date End Date Stalin Singer MD PCP - General Family Medicine 11/26/18 documented as of this encounter
--- OUTSIDE RECORDS SUMMARY | 2024-08-03 09:49 | XMS_ITS | Encounter Summary ---
Author Organization [facility] Address [address] [facility] [place] [address] Care Team Providers Care Hospice Liaison Name Role Phone Stalin Singer MD Primary Care Provider [phone] Rachel Mckeon WEAVING SUPERVISOR Unavailable [phone] Leon Maria DO Unavailable Encounter Details Date Type Department Care Team (Late st Contact Info) Description 07/14/2024 Orders Only [facility] [address] [place] [phone] Leon Maria DO [address] [place] [address] Preop testing; Sinusitis, unspecified chronicity, unspecified location Social History Tobacco Use Types Packs/Day Years [...] 08/20/2024 3:45 PM EDT Office Visit [facility]SE [facility]UEL [address] [place] [address] Leon Maria DO [address] [place] [address] Scheduled Orders Name Type Priority Associated Diagnoses Orde r Schedule CBC auto differential Lab Routine Preop testing Sinusitis, unspecified chronicity, unspecified location Expected: 07/14/2024 (Approximate), Expires: 07/14/2025 Basic metabolic panel Lab Routine Preop testing Sinusitis, unspecified chronicity, unspecified location Expected: 07/14/2024 (Approximate), Expires: 07/14/2025 documented as of this encounter Procedures Procedure Name Priority Date/Time Associated Diagnosis Comments ECG 12-LEAD Routine 08/02/2024 4:20 PM EDT Preop testing Sinusitis, unspecified chronicity, unspecified location documented in this encounter Results * ECG 12 lead (08/02/2024 4:20 PM EDT) 08/02/2024 4:20 PM EDT [facility] - 08/02/2024 8:21 PM EDT [facility] Main [address] [address] Electrocardiograph Report Signed Patient: Clarence Flores MR#: [id number] : 1960 Acct:[id number] Age/Sex: 63 / M ADM Date: 08/02/24 Loc: Room: Type: [facility] Attending Dr: Leon Maria DO Ordering Provider: Leon Maria DO Date of Service: 08/02/24 ECG/ECG 12 lead ECG: see order Copies to: Test Reason : Blood Pressure : */* mmHG Vent. Rate : 79 BPM Atrial Rate : 79 BPM P-R Int : 160 ms QRS Dur : 90 ms QT Int : 360 ms P-R-T Axes : 74 36 68 degrees QTcB Int : 412 ms Normal sinus rhythm Low voltage QRS Borderline ECG Confirmed by Lalita Capellan ([id number]) on 08/02/2024 8:21:23 PM Referred By: Electronically Signed By: Lalita Capellan Transcribed By: MUS Signed By Lalita Capellan MD 2020 Procedure Note Lalita Capellan MD - 08/02/2024 [facility] Main [place] [address] [place], [place] [address] Electrocardiograph Report Signed Patient: Clarence Flores EMR#: [id number] : 1960Acct:[id number] Age/Sex: 63 / MADM Date: 08/02/24 Loc: Room:Type: [facility] Attending Dr: Leon Maria DO Ordering Provider: Leon Maria DO Date of Service: 08/02/24 ECG/ECG 12 lead ECG: see order Copies to: Test Reason : Blood Pressure : */* mmHG Vent. Rate : 79 BPM Atrial Rate : 79 BPM P-R Int : 160 ms QRS Dur : 90 ms QT Int : 360 ms P-R-T Axes : 74 36 68 degrees QTcB Int : 412 ms Normal sinus rhythm Low voltage QRS Borderline ECG Confirmed by Lalita Capellan ([id number]) on 08/02/2024 8:21:23 PM Referred By: Electronically Signed By: Lalita Capellan Transcribed By: MUS Signed By Lalita Capellan MD2020 us Leon Maria DO ECG ORDERABLES Final Resul t [address] [address], documented in this encounter Visit Diagnoses Diagnosis Preop testing Unspecified pre-operative examination Sinusitis, unspecified chronicity, unspecified location documented in this encounter Care Teams Hospice Liaison Relationship Specialty Start Date End Date Stalin Singer MD PCP - General Family Medicine 01/30/24 Rachel Mckeon NP Nurse Practitioner Neurology 02/13/24 Leon Maria DO [address] [place] [address] Otolaryngology 02/13/24 documented as of this encounter
--- OUTSIDE RECORDS SUMMARY | 2024-08-03 09:49 | XMS_ITS | Encounter Summary ---
Author Organization [facility] Address [address] [place] [address] Phone Care Team Providers Care Analytics Leader Name Role Phone Stalin Singer MD Primary Care Provider [phone] Encounter Details Date Type Department Care Team (Late st Contact Info) Description 07/14/2024 Patient Risk Score [facility] Care Management [address] [facility] [address] [place] [address] Social History Tobacco Use Types Packs/Day Years Used Date Smoking Tobacco: Never Smokeless Tobacco: Never Alcohol Use Standard Drinks/Week Comments Yes 2 [...] Description 05/09/2025 4:00 PM EDT Office Visit [facility] [address] [facility] [address] [place] [address] Andra Ramirez, PRIVATE DETECTIVE-GRANTS OFFICER [address] [facility] [address], [address] [place], [place] [phone] documented as of this encounter Visit Diagnoses Not on filedocumented in this encounter Care Teams Analytics Leader Relationship Specialty Start Date End Date Stalin Singer MD [address] [place] [address] PCP - General Family Medicine 11/13/22 documented as of this encounter
--- OUTSIDE RECORDS SUMMARY | 2024-08-03 09:49 | XMS_ITS | Encounter Summary ---
Author Organization [facility] Address [address] [place] [address] Care Team Providers Care Media Planner / Buyer Name Role Phone Stalin Singer MD Primary Care Provider [phone] Encounter Details Date Type Department Care Team (Late st Contact Info) Description 07/07/2024 Results Follow-Up [facility] UROLOGY Part of [address] [place] [phone] Domonique Rick, DIET SUPERVISOR - BICYCLE RACER [address] [place] [address] [address] [place] [phone] Social History Tobacco Use Types Packs/Day Years [...] Info) Description 08/16/2024 11:30 AM EDT Appointment [facility] Ultrasound [address] [place] [address] [phone] EPIC / ISA W OFC KACEY 08/20/2024 Hospital Encounter [facility] LAB [address] [place] [phone] 08/30/2024 7:45 AM EDT Office Visit [facility] UROLOGY Part of [facility] [address] [facility] [address] [place] [phone] Cristiano Hay MD [address] [facility], [address] [place] [address] review psa done 07/01 and imaging scheduled for 08/03 (us and cxr) documented as of this encounter Visit Diagnoses Not on filedocumented in this encounter Care Teams Media Planner / Buyer Relationship Specialty Start Date End Date Stalin Singer MD [address] [place] [address] PCP - General Family Medicine 05/23/23 documented as of this encounter
== END 2024-07-30 06:18 | disposition home or self-care (01) ==
LOC: LAB 08-03 09:46
PROVIDERS: PCP Family Medicine
DX: Z01.812 Encounter for preprocedural laboratory examination (principal); J32.9 Chronic sinusitis, unspecified
CPT/HCPCS: 36415; 80048; 85025

== ENCOUNTER 2024-11-05 10:21 | Emergency (ER) | payer OTHER, SELFPAY ==
--- OUTSIDE RECORDS SUMMARY | 2023-09-24 11:30 | XMS_ITS ---
Author Organization [facility] in [place] Address [address] [place] [address] Care Team Providers Care National Park Tour Guide Name Role Phone Kev Singer Primary Care Provider REASON FOR VISIT 3mon f/u bhs Encounters Encounter Location Date Provider Diagnosis [address] [address] 09/24/2023 Kev Singer Plan Of Treatment No Information Progress Notes * Clarence CHASEDOB:1960 ([age] yo M)Acc No.[id number]:09/24/2023 UNLOCKED PROGRESS NOTE Progress Note Patient: Clarence LAWSON Provider: Mariela Singer MD (TTC) :1960 A ge:62 Y S ex:Male Date:09/24/2023 Address:[facility] [address] [facility] Subjective: * Chief Complaints: * 1 . 3mon f/u bhs. * Medical History: Objective: * Vitals: Assessment: Plan: * Treatment: * * Electronic signature of Kev Singer MD, [id number] on 11/05/2024 at 11:12 AM EDT Sign off status: Pending Visit Status: C ANC (Cancelled) * Provider: Mariela Singer MD (TTC) Date: 09/24/2023 Generated for Printi ng/Faxing/eTransmitting on: 0 11/05/2024 11:12 AM EDT
--- OUTSIDE RECORDS SUMMARY | 2024-10-27 16:00 | XMS_ITS | Encounter Summary ---
Author Organization [facility] Address [address] [place] [address] Phone Care Team Providers Care Environmental Management Specialist Name Role Phone Stalin Singer MD Primary Care Provider [phone] Reason for Visit * Reason Comments Blood Pressure Check Patient here for bl ood pressure check, c/o occasional lightheadedness if he stands up to quickly. Encounter Details Date Type Department Care Team (Late st Contact Info) Description 10/27/2024 4:00 PM EDT Office Visit 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) Social History Tobacco Use Types Packs/Day Years [...] AM EST documented as of this encounter Last Filed Vital Signs Vital Sign Reading Time Taken Comments Blood Pressure 116/64 10/27/2024 3:47 PM EDT Pulse 68 10/27/2024 3:47 PM EDT Temperature - - Respiratory Rate - - Oxygen Saturation - - Inhaled Oxygen Concentration - - Weight 110 kg (241 lb 9.6 oz) 10/27/2024 3:47 PM EDT Height 167.6 cm (5' 6 ) 10/27/2024 3:47 PM EDT Body Mass Index 39 10/27/2024 3:47 PM EDT documented in this encounter Functional Status * BP Answer Date of Assessment Author 116/64 10/27/2024 3:47 PM EDT Swati Chun LPN * Pulse Answer Date of Assessment Author 68 10/27/2024 3:47 PM EDT Swati Chun LPN * Communicable Disease Screening Question Answer Date of Assessment Author Do you have any of the follo wing new or worsening symptoms? None of these 10/27/2024 3:36 PM EDT Zofia Alvarez documented as of this encounter Patient Instructions * Patient Instructions* SUGEY Tabares - 10/27/2024 4:00 PM EDT Please bring all medicines, vitamins, [...] making process incorporating patients unique circumstances, the followingtreatment plan will be initiated: 1. Prescription drug management of cardiovascular medication for efficacy, adherence to treatment, side effect assessment and polypharmacy. Current treatment clinically warranted and to continue withfollowing modifications: - Stop spironolactone 2. Check your blood pressure at home - if you notice top number > 140 or bottom number > 90 please let me know 3. Return for follow-up; in the interim, contact the office if new symptoms arise. COMMUNITY SUPPORT PROFESSIONAL as scheduled documented in this encounter Progress Notes * SUMMER TabaresINSIDE SALES PROFESSIONAL - 10/27/2024 4:00 PM EDT Subjective: Clarence Flores is a 63 y.o. male with hypotension. He presents to the office today ambulatory steady gait. Last evaluated in clinic by Dr. Morelos April 2024. He has continued to lose weight on Ozempic. He sent some records into the office last month showinga blood pressure of 82/43. Dr. Morelos reduce valsartan to 160 mg daily, patient has been compliantwith those changes. Presents to the office today where he reports improvement in the dizziness and lightheadedness that he was experiencing with a low blood pressure but continues to have some orthost atic concerns. He recently started Flomax. Sometimes when he is at work and when he has to bend over and raises up he becomes a little bit dizzy. He has been following his blood pressure at home and pretty consistently below 110. At this time, we will discontinue spironolactone. He will be seeing his PCP in the near future. Otherwise recent labs show LDL 67, hemoglobin A1c 4.3. Current Outpatient Medications Medication Instructions amLODIPine (NORVASC) 5 mg, oral, Daily apixaban (ELIQUIS) 5 mg, oral, 2 times daily azelastine (Astelin) 137 mcg (0.1 %) nasal spray 2 sprays, 2 times daily dilTIAZem CD (CARDIZEM CD) 120 mg, oral, As needed doxazosin (CARDURA) 4 mg, 2 times daily Jardiance 10 mg, Daily metoprolol succinate XL (Toprol-XL) 25 mg 24 hr tablet Take 1.5 tablets daily (37.5mg) daily Ozempic 0.25 mg or 0.5 mg (2 mg/3 mL) pen injector tamsulosin (FLOMAX) 0.4 mg, Daily valsartan (DIOVAN) 160 mg, oral, Daily Hypertension ROS: taking medications as instructed, no medication side effects noted, no TIA's, no chest pain on exertion, no dyspnea on exertion, and no swelling of ankles. New concerns: dizziness, hypotension. Objective: BP 116/64 (BP Location: Right arm, Patient Position: Sitting) Pulse 68 Ht 1.676 m (5' 6 ) Wt 110 kg (241 lb 9.6 oz) BMI 39.00 kg/m?? Appearance alert, well appearing, and in no distress. General exam S1, S2 normal, no gallop, no murmur, chest clear, no JVD, no HSM, no edema, continues to notice low blood pressure. Lab review: labs are reviewed, up to date and normal. Assessment: Symptomatic hypotension (exacerbated by significant weight loss) Plan: Through informed decision making process incorporating patients unique circumstances, the followingtreatment plan will be initiated: 1. Prescription drug management of cardiovascular medication for efficacy, adherence to treatment, side effect assessment and polypharmacy. Current treatment clinically warranted and to continue withfollowing modifications: - Stop spironolactone 2. Check your blood pressure at home - if you notice top number > 140 or bottom number > 90 please let me know 3. Return for follow-up; in the interim, contact the office if new symptoms arise. COMMUNITY SUPPORT PROFESSIONAL as scheduled Andra Ramirez MSN, CONTRACT ENGINEER-INSIDE SALES PROFESSIONAL, PMHNP-[facility] [place], [place] Please excuse any errors in grammar or translation related to this dictation. Voice recognition software was utilized to prepare this document. documented in this encounter Plan of Treatment Upcoming Encounters Date Type Department Care Team (Late st Contact Info) Description 05/09/2025 4:00 PM EDT Office Visit [facility] [address] [address] Andra Ramirez APRN-CNP [address] [facility] 2, [address] [address] documented as of this encounter Visit Diagnoses Diagnosis Hypotension due to drugs- Primary Other iatrogenic hypotension documented in this encounter Care Teams Environmental Management Specialist Relationship Specialty Start Date End Date Stalin Singer MD [address] [place] [address] PCP - General Family Medicine 11/13/22 documented as of this encounter
[2024-11-05 10:27] VITALS: BP 125/65; PULSE 69; TEMP 36.6; O2SAT 96; BMI 37.1
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
[2024-11-05] MEDS: FLUORESCEIN SODIUM 1 MG STRIP OP (10:49)
[2024-11-05] MEDS: TETRACAINE HCL 0.5% OP SOL 80 DROP/4 ML BOTTLE OP (10:49)
--- OUTSIDE RECORDS SUMMARY | 2024-11-05 11:12 | XMS_ITS | Encounter Summary ---
Author Organization [facility] Address [address] [place] [address] Care Team Providers Care Traffic Engineering Director Name Role Phone Stalin Singer MD Primary Care Provider + Rachel Mckeon PLANER CHAIN OFFBEARER Unavailable [phone] Leon Maria DO Unavailable [phone] Encounter Details Date Type Department Care Team (Late st Contact Info) Description 06/25/2024 Abstract [facility] [address] [place] [phone] Randee Christianson MA Social History Tobacco Use [...] on filedocumented in this encounter Care Teams Traffic Engineering Director Relationship Specialty Start Date End Date Stalin Singer MD PCP - General Family Medicine 01/30/24 Rachel Mckeon NP Nurse Practitioner Neurology 02/13/24 Leon Maria DO [address] [place] [address] Otolaryngology 02/13/24 documented as of this encounter
--- OUTSIDE RECORDS SUMMARY | 2024-11-05 11:12 | XMS_ITS | Encounter Summary ---
Author Organization [facility] Address [address] [place] [address] Phone Care Team Providers Care Stiff Neck Loader Name Role Phone Stalin Singer MD Primary Care Provider [phone] Andra Ramirez VICE PRESIDENT GLOBAL ADVERTISING SALES-V GROOVE CUTTER Unavailable [phone] Encounter Details Date Type Department Care Team (Late st Contact Info) Description 09/19/2023 Scanned Document [facility] [address] [place] [phone] Scanning, Generic Provider Social History Tobacco Use [...] Description 05/09/2025 4:00 PM EDT Office Visit [facility] [address] [phone] Andra Ramirez, VICE PRESIDENT GLOBAL ADVERTISING SALES-V GROOVE CUTTER [address] [place] [address] documented as of this encounter Visit Diagnoses Not on filedocumented in this encounter Care Teams Stiff Neck Loader Relationship Specialty Start Date End Date Stalin Singer MD [address] [facility] [place] [address] PCP - General Family Medicine 11/13/22 Andra Ramirez, VICE PRESIDENT GLOBAL ADVERTISING SALES-V GROOVE CUTTER [address] [facility] [address], [address] [place] [address] PCP - MMO ACO PCP 05/11/24 06/09/24 documented as of this encounter
--- OUTSIDE RECORDS SUMMARY | 2024-11-05 11:12 | XMS_ITS | Encounter Summary ---
Author Organization [facility] Address [address] [place] [address] Phone Care Team Providers Care Spare Hand Name Role Phone Stalin Singer MD Primary Care Provider [phone] Encounter Details Date Type Department Care Team (Late st Contact Info) Description 08/02/2024 Scanned Document [facility] [address] [place] [phone] Scanning, Generic Provider Social History Tobacco Use [...] Description 05/09/2025 4:00 PM EDT Office Visit [facility] [address] [facility] [address] [place] [address] Andra Ramirez, LATHER APPRENTICE-OFFICE MANAGER [address] [facility] [address] [place], [place] [phone] documented as of this encounter Visit Diagnoses Not on filedocumented in this encounter Care Teams Spare Hand Relationship Specialty Start Date End Date Stalin Singer MD [address] [place] [address] PCP - General Family Medicine 11/13/22 documented as of this encounter
--- OUTSIDE RECORDS SUMMARY | 2024-11-05 11:12 | XMS_ITS | Encounter Summary ---
Author Organization [facility] Address [address] [place] [address] Care Team Providers Care Ekg Tech Name Role Phone Stalin Singer MD Primary Care Provider [phone] Rachel Mckeon CRITICAL POWER TECHNICIAN Unavailable [phone] Leon Maria DO Unavailable Encounter Details Date Type Department Care Team (Late st Contact Info) Description 07/14/2024 Orders Only [facility] [address] [place] [phone] Leon Maria DO [address] [place] [address] Preop testing; Sinusitis, unspecified chronicity, unspecified location [...] on file documented as of this encounter Procedures Procedure Name Priority Date/Time Associated Diagnosis Comments CBC WITH AUTO DIFFERENTIAL Routine 08/11/2024 9:24 AM EDT Preop testing Sinusitis, unspecified chronicity, unspecified location BASIC METABOLIC PANEL Routine 08/11/2024 9:24 AM EDT Preop testing Sinusitis, unspecified chronicity, unspecified location ECG 12-LEAD Routine 08/02/2024 4:20 PM EDT Preop testing Sinusitis, unspecified chronicity, unspecified location documented in this encounter Results * Basic metabolic panel (08/11/2024 9:24 AM EDT) Blood Venous blood specimen / Unknown Leon Maria DO LAB BLOOD ORDERABLES Final Result Performing Organization Address [facility] [place] [address], [place] * CBC auto differential (08/11/2024 9:24 AM EDT) Blood Venous blood specimen / Unknown Leon Maria DO LAB BLOOD ORDERABLES Final Result Performing Organization Address [facility] [place] [address], * ECG 12 lead (08/02/2024 4:20 PM EDT) 08/02/2024 4:20 PM EDT Narrative [facility] - 08/02/2024 8:21 PM EDT [facility] [place] [address] Electrocardiograph Report Signed Patient: Clarence Flores MR#: [id number] : 1960 Acct:[id number] Age/Sex: 63 / M ADM Date: 08/02/24 Loc: Room: Type: [facility] Attending Dr: Leon Maria DO Ordering [...] QRS Borderline ECG Confirmed by Lalita Capellan ([id number]) on 08/02/2024 8:21:23 PM Referred By: Electronically Signed By: Lalita Capellan Transcribed By: MUS Signed By Lalita Capellan MD 2020 Procedure Note Lalita Capellan MD - 08/02/2024 [facility] Main [place] [address] [place] [address] Electrocardiograph Report Signed Patient: Clarence Flores EMR#: [id number] : 1960Acct:[id number] Age/Sex: 63 / MADM Date: 08/02/24 Loc: Room:Type: [facility] Attending Dr: Leon Maria DO Ordering [...] QRS Borderline ECG Confirmed by Lalita Capellan ([id number]) on 08/02/2024 8:21:23 PM Referred By: Electronically Signed By: Lalita Capellan Transcribed By: MUS Signed By Lalita Capellan MD2020 us Leon Maria DO ECG ORDERABLES [place] [address], documented in this encounter Visit Diagnoses Diagnosis Preop testing Unspecified pre-operative examination Sinusitis, unspecified chronicity, unspecified location documented in this encounter Care Teams Ekg Tech Relationship Specialty Start Date End Date Stalin Singer MD PCP - General Family Medicine 01/30/24 Rachel Mckeon NP Nurse Practitioner Neurology 02/13/24 Leon Maria DO [address] [place] [address] Otolaryngology 02/13/24 documented as of this encounter
--- OUTSIDE RECORDS SUMMARY | 2024-11-05 11:12 | XMS_ITS | Encounter Summary ---
Author Organization [facility] Address [address] [place] [address] Phone Care Team Providers Care Executive Receptionist Name Role Phone Stalin Singer MD Primary Care Provider [phone] Encounter Details Date Type Department Care Team (Latest Contact Info) Description 10/27/2024 Travel Social History Tobacco Use Types Packs/Day [...] AM EST documented as of this encounter Functional Status * BP Answer [...] Zofia Alvarez documented as of this encounter Plan of Treatment Upcoming Encounters Date Type Department Care Team (Late st Contact Info) Description 05/09/2025 4:00 PM EDT Office Visit [place] [id number] [phone] Andra Ramirez, LENS COATER-WAREHOUSE SHIPPING ASSOCIATE [address] [facility] [address], [facility] [address] [place] [address] documented as of this encounter Visit Diagnoses Not on filedocumented in this encounter Care Teams Executive Receptionist Relationship Specialty Start Date End Date Stalin Singer MD [address] [facility] [place] [address] PCP - General Family Medicine 11/13/22 documented as of this encounter
--- OUTSIDE RECORDS SUMMARY | 2024-11-05 11:12 | XMS_ITS | Encounter Summary ---
Author Organization [facility] Address [address] [place] [address] Care Team Providers Care Invertebrate Paleontologist Name Role Phone Stalin Singer MD Primary Care Provider [phone] Source Comments In the event this information is protected by the Federal Confidentiality of Alcohol and Drug AbusePatient Records regulations: The Federal rules restrict any use of the information to criminally investigate or prosecute any alcohol or drug abuse patient.[facility] Encounter Details Date Type Department Care Team (Late st Contact Info) Description 12/22/2018 Surgical [facility] MA[facility] [place] [address] Jono Kelley MD [address] [facility], [address] [place] [address] Social History Tobacco Use Types [...] on filedocumented in this encounter Care Teams Invertebrate Paleontologist Relationship Specialty Start Date End Date Stalin Singer MD PCP - General Family Medicine 11/26/18 documented as of this encounter
--- OUTSIDE RECORDS SUMMARY | 2024-11-05 11:12 | XMS_ITS | Encounter Summary ---
Author Organization [facility] Address [address] [facility], [address] [place] [address] Care Team Providers Care Emergency Department Coordinator Name Role Phone Stalin Singer MD Primary Care Provider [phone] Encounter Details Date Type Department Care Team (Late st Contact Info) Description 05/27/2023 Orders Only [facility] [address] [place] [phone] Provider, MD Yogi Social History Tobacco Use [...] Care Team (Late st Contact Info) Description 11/15/2024 4:15 PM EDT Office Visit [facility] [address] [place] [phone] Cristiano Hay MD [address] [place] [address], [address] [place], [place] [phone] 6-8wk med check/PVR documented as of this encounter Procedures Procedure [...] PM EDT) Anatomical Region Laterality Modality Other [facility] Provider IMG MRI ORDERABLES Final Result * MRI abdomen (04/12/2021 1:16 PM EST) Anatomical Region Laterality Modality Other [facility] Provider IMG MRI ORDERABLES Final Result * CT abdomen pelvis w contrast (03/27/2021 1:18 PM EST) Anatomical Region Laterality Modality Computed Tomogra phy [facility] Provider IMG CT ORDERABLES Final R esult * PSA (03/24/2021 1:09 PM EST) Blood BLOOD SPECIMEN / Unknown [facility] Provider CHEMISTRY ORDERABLES Ariella l Result * Surgical Pathology (12/22/2018 1:23 PM EST) Tissue SPECIMEN FROM UNSPECIFIED BODY SITE / Unknown [facility] Provider PATHOLOGY/CYTOLOGY ORDERA BLES Final Result * PSA (11/21/2018 11:56 AM EDT) Blood BLOOD SPECIMEN / Unknown [facility] Provider CHEMISTRY ORDERABLES Ariella l Result * CT abdomen pelvis w contrast (11/05/2018 1:12 PM EDT) Anatomical Region Laterality Modality Computed Tomogra phy us Historical Provider MD CANALES CT ORDERABLES Final R esult documented in this encounter Visit Diagnoses Not on filedocumented in this encounter Care Teams Emergency Department Coordinator Relationship Specialty Start Date End Date Stalin Singer MD [address] [place] [address] PCP - General Family Medicine 05/23/23 documented as of this encounter
--- OUTSIDE RECORDS SUMMARY | 2024-11-05 11:12 | XMS_ITS | Clinical Summary ---
Author Organization [facility] Address [address] [place], [place] [phone] Care Team Providers Care Dialysis Clinical Manager Name Role Phone Stalin Singer MD Primary Care Provider [phone] Allergies Active Allergy Reactions Criticality Noted Date [...] N ot on file 01/18/2020 Data from: https://[email or web address].medicine.[email or web address].edu/. Last address used for calculation Not on [...] 06/21/2019, 1 02/24/2018, 12/24/2018, Additional history exists Influenza Vaccine (#1) 2024 RSV Vaccine (1 - 1-dose 75+ series) 2037 Procedures Procedure Name Priority Date/Time Associated Diagnosis Comments BASIC METABOLIC PANEL Routine 06/21/2019 7:55 AM EDT Renal cell carcinoma of left kidney (HCC) from Last 3 Months or Most Recently Relevant to Health Maintenance Results * (ABNORMAL) BASIC METABOLIC PNL (06/21/2019 7:55 AM EDT) Glucose 148(H) 74 - 99 mg/dL 06/21/2019 8:37 AM EDT [facility] Comment: The [place] Diabetes [employer] (ADA) provides guidance for cutoff [...] Standards of Medical Care in Diabetes 2016, [place] [employer]. Diabetes Care. 2016.39(Suppl 1). BUN 10 9 - 24 mg/dL 06/21/2019 8:37 AM EDT [facility] Creatinine 1.28(H) 0.73 - 1.22 mg/dL 06/21/2019 8:37 AM EDT [facility] Sodium 139 136 - 144 mmol/L 06/21/2019 8:37 AM EDT [facility] Potassium 4.5 3.7 - 5.1 mmol/L 06/21/2019 8:37 AM EDT [facility] Chloride 106(H) 97 - 105 mmol/L 06/21/2019 8:37 AM EDT [facility] CO2 22 22 - 30 mmol/L 06/21/2019 8:37 AM EDT [facility] Anion Gap 11 9 - 18 mmol/L 06/21/2019 8:37 AM EDT [facility] Calcium 8.9 8.5 - 10.2 mg/dL 06/21/2019 8:37 AM EDT [facility] eGFR- >60 06/21/2019 8:37 AM EDT [facility] eGFR-All Other Races 58 . 06/21/2019 8:37 AM EDT [facility] Comment: eGFR (Estimated GFR) Units of measure: [...] us Jono Kelley MD LABORATORY Final Result [address] [address] [facility] Care [address] [place], [place] from Last 3 Months or Most Recently Relevant to Health Maintenance Insurance [employer] P[employer] Advance Directives Documents on File Type Date Recorded Patient Corner Former Expl anation Advance Directive(s) 12/17/2018 1:30 PM Care Teams Dialysis Clinical Manager Relationship Specialty Start Date End Date Stalin Singer MD PCP - General Family Medicine 11/26/18
--- OUTSIDE RECORDS SUMMARY | 2024-11-05 11:13 | XMS_ITS | Clinical Summary ---
Author Organization [facility] Address [address], [address] [place] [address] Care Team Providers Care Hose Inspector And Patcher Name Role Phone Stalin Singer MD Primary Care Provider [phone] Allergies Active Allergy Reactions Criticality Noted Date Comments Nitroglycerin Other (See Comments) 11/26/2018 Patient states that he was given this medication and did not need it then I crashed Medications doxazosin (CARDURA) 4 MG tablet Take 1 tablet by mouth nightly Active empagliflozin (JARDIANCE) 10 MG tablet Take 1 tablet by mouth daily Active blood glucose test strips (TRUE METRIX [...] the skin every 7 days 07/29/2023 Active spironolactone (ALDACTONE) 25 MG tablet Take 1 tablet by mouth daily 08/29/2024 Active amLODIPine (NORVASC) 5 MG tablet Take 2 tablets by mouth daily 08/29/2024 Active apixaban (ELIQUIS) 5 MG TABS tablet Take 1 tablet by mouth 2 times daily 09/25/2023 05/07/19 26 Active fluconazole (DIFLUCAN) 150 MG tablet Take one tablet PO now, then repeat dose in 72 hours 2 tablet 09/01/2024 Active tamsulosin (FLOMAX) 0.4 MG capsuleIndicati ons:BPH with obstruction/low er urinary tract symptoms Take 1 capsule by mouth every evening Do not take if systolic BP less than 110 30 capsule 3 09/27/2024 Active Active Problems Problem Noted Date Diagnosed Date Elevated PSA 05/22/2023 Encounters Date Type Department Care Team Description 09/27/2024 4:00 PM EDT Office Visit [facility] [address] [place] [address] Moises Overton PA-C Elevated PSA (Primary Dx); BPH with obstruction/lower urinary tract symptoms 09/14/2024 Results Follow-Up [facility] Specialty Providers on [address] [address] Moises Overton PA-C 09/14/2024 Telephone [facility] [address] [place] [address] Moises Overton PA-C YEAST INFECTION 09/13/2024 12:04 PM EDT - 09/13/2024 11:59 PM EDT Hospital Encounter [address] [address] Discharge Disposition: Home or Self Care 09/13/2024 10:00 AM EDT - 09/13/2024 12:03 PM EDT Hospital Encounter [address] [address] Elevated PSA Discharge Disposition: Home or Self Care 09/13/2024 8:45 AM EDT Procedure visit [facility] [address] [place] [address] Cristiano Hya MD Elevated PSA (Primary Dx) 09/01/2024 Telephone [facility] Specialty Providers on [address] [address] Domonique Rick APRN - CNP Other 08/30/2024 7:45 AM EDT Office Visit [facility] [address] [place] [address] Cristiano Hay MD Elevated PSA (Primary Dx); Renal cancer, left (HCC); History of partial nephrectomy 08/30/2024 Telephone [facility] [address] [place] [address] Domonique Rick APRN - CNP Surgery Scheduling (In office prostate bx 09/13/24) 08/16/2024 11:31 AM EDT - 08/18/2024 11:59 PM EDT Hospital Encounter [facility] [address] [place] [address] Discharge Disposition: Home or Self Care 08/16/2024 11:30 AM EDT - 08/18/2024 11:59 PM EDT Hospital Encounter [facility] Ultrasound [address] [place] [address] Renal cancer, left (HCC); History of partial nephrectomy Discharge Disposition: Home or Self Care 08/16/2024 Results Follow-Up [facility] Specialty Providers on [address] [address] Domonique Rick APRN - CNP Other from Last 3 Months Family History Medical History Relation Name Comments Alcohol Abuse Father Heart Disease Father Ovarian Cancer Mother Heart Disease Sister Relation Name Status Comments Father Mother Sister Alive Social History Tobacco Use Types Packs/Day Years Used Date Smoking Tobacco: Never Passive Smoke Exposure: Past Smokeless Tobacco: Never Tobacco Cessation:Counseling Given: Not Answered Alcohol Use Standard Drinks/Week Comments Yes 1 (1 standard drink = 0.6 oz pur e alcohol) Sex and Gender Information Value Date Recorded Sex Assigned at Not on file Legal Sex Male 1:22 PM EDT Gender Identity Male 05/22/2023 3:10 PM EDT Sexual Orientation Not on file Last Filed Vital Signs Vital Sign Reading Time Taken Comments Blood Pressure 103/69 09/27/2024 4:00 PM EDT Pulse 70 09/27/2024 4:00 PM EDT Temperature 36.3 C (97.3 F) 09/27/2024 4:00 PM EDT Respiratory Rate - - Oxygen Saturation - - Inhaled Oxygen Concentration - - Weight 106.1 kg (234 lb) 09/27/2024 4:00 PM EDT Height 167.6 cm (5' 6 ) 08/28/2023 2:37 PM EDT Body Mass Index 37.77 08/28/2023 2:37 PM EDT Plan of Treatment Upcoming Encounters Date Type Department Care Team (Late st Contact Info) Description 11/15/2024 4:15 PM EDT Office Visit [facility] UR[facility] Part of [address] [place] [address] Cristiano Hay MD [address] [place] [address] 6-8wk med check/PVR Health Maintenance Due Date Last Done Comments Depression Screen 1974 HIV screen 1977 Hepatitis C screen 1980 DTaP/Tdap/Td vaccine (1 - Tdap) 1981 Lipids 2002 Colonoscopy 11/11/2007 Colorectal Cancer Screen 11/11/2007 FIT/FOBT: Average risk 11/11/2007 Fecal-DNA (Cologuard): Average risk 11/11/2007 Sigmoidoscopy/CT colonography 11/11/2007 Pneumococcal 50+ years Vaccine (1 of 1 - PCV) 2012 Shingles vaccine (1 of 2) 2012 Respiratory Syncytial Virus (RSV) or age 60 yrs+ (1 - Risk 60-74 years 1-dose series) 2022 Flu vaccine (#1) 09/10/2024 COVID-19 Vaccine (1 - 2023- season) 2024 Prostate Specific Antigen (PSA) Screening or [...] Procedure Name Priority Date/Time Associated Diagnosis Comments BIOPSY OF PROSTATE,NEEDLE/PUN CH Routine 09/13/2024 8:11 AM EDT Elevated PSA SURGICAL PATHOLOGY REPORT Routine 09/13/2024 12:00 AM EDT XR CHEST (2 VW) Routine 08/16/2024 12:06 PM EDT Renal cancer, left (HCC) History of partial nephrectomy US RENAL LIMITED Routine 08/16/2024 11:5 5 AM EDT Renal cancer, left (HCC) History of partial nephrectomy PSA, DIAGNOSTIC Routine 07/01/2024 3:25 PM EDT Elevated PSA from Last 3 Months or Most Recently Relevant to Health Maintenance Results * SURGICAL PATHOLOGY REPORT (09/13/2024 12:00 AM EDT) Pathologist [facility] Surgical Pathology Report Path Number: [id number] -- Diagnosis -- A. PROSTATE, LB, NEEDLE CORE BIOPSY: Benign prostatic tissue. B. PROSTATE, LLB, NEEDLE CORE BIOPSY: Benign prostatic tissue. C. PROSTATE, LM, NEEDLE CORE BIOPSY: Benign prostatic tissue. D. PROSTATE, LLM, NEEDLE CORE BIOPSY: Benign prostatic tissue. E. PROSTATE, LA, NEEDLE CORE BIOPSY: Benign prostatic tissue. F. PROSTATE, LLA, NEEDLE CORE BIOPSY: Benign prostatic tissue. G. PROSTATE, RB, NEEDLE CORE BIOPSY: Benign prostatic tissue. H. PROSTATE, RLB, NEEDLE CORE BIOPSY: Benign prostatic tissue. I. PROSTATE, RM, NEEDLE CORE BIOPSY: Benign prostatic tissue. J. PROSTATE, RLM, NEEDLE CORE BIOPSY: Benign prostatic tissue. K. PROSTATE, RA, NEEDLE CORE BIOPSY: Benign prostatic tissue. L. PROSTATE, RLA, NEEDLE CORE BIOPSY: Benign prostatic tissue. Rylee Prado M.D. Electronically Signed Out kmg2/09/14/2024 Clinical Information Pre-Op Diagnosis: ELEVATED PSA Operative Findings: PROSTATE BIOPSY X 12 mj Source of Specimen A: LB B: LLB C: LM D: LLM E: LA F: LLA G: RB H: RLB I: RM J: RLM K: RA L: RLA Gross Description BOB CHASE, PROSTATE BIOPSIES All specimens are received in formalin on sponges and are cote-white needle core biopsies less than < 0.1 cm in diameter with the following lengths: A. LB One core, 1.5 cm in length. Entirely 1cs. B. LLB One core, 1.7 cm in length. Entirely 1cs. C. LM One core, 1.8 cm in length. Entirely 1cs. D. LLM One core, 1.3 cm in length. Entirely 1cs. E. LA One core, 0.8 cm in length. Entirely 1cs. F. LLA One core, 1.2 cm in length. Entirely 1cs. G. RB One core, 1.7 cm in length. Entirely 1cs. H. RLB One core, 1.5 cm in length. Entirely 1cs. I. RM One core, 1.5 cm in length. Entirely 1cs. J. RLM One core, 1.1 cm in length. Entirely 1cs. K. RA One core, 1.4 cm in length. Entirely 1cs. L. RLA One core, 1.4 cm in length. Entirely 1cs. jj jennifer Orourke/mj: Microscopic Description A-L. Microscopic examination performed. Processing Lab: [address] [address] Interpretation Performed at [address] [id number] SURGICAL PATHOLOGY CONSULTATION Patient Name: BOB CHASE Med Rec: [id number] [facility] ANATOMIC PATHOLOGY [address] [place], [place] [address] [facility] 09/13/2024 09/13/2024 2:3 9 PM EDT Cristiano Hay MD PATHOLOGY/CYTOLOGY ORDERABLE S Final Result [facility] [address] [place] [address], [facility] [phone] [facility] * XR CHEST (2 VW) (08/16/2024 12:06 PM EDT) Anatomical Region Laterality Modality Chest Computed Radiogr aphy Chest 08/17/2024 3:44 PM EDT Impressions 08/17/2024 3:47 PM EDT 1. No acute process. Narrative 08/17/2024 3:47 PM EDT EXAM: 2 VIEW(S) XRAY OF THE CHEST COMPARISON: None available. CLINICAL HISTORY: Renal cancer, left (HCC); History of partial nephrectomy. FINDINGS: LUNGS AND PLEURA: No focal pulmonary opacity. No pulmonary edema. No pleural effusion. No pneumothorax. HEART AND MEDIASTINUM: No acute abnormality of the cardiac and mediastinal silhouettes. BONES AND SOFT TISSUES: No acute osseous abnormality. Procedure Note River Murray MD - 08/17/2024 EXAM: 2 VIEW(S) XRAY OF THE CHEST COMPARISON: None available. CLINICAL HISTORY: Renal cancer, left (HCC); History of partial nephrectomy. FINDINGS: LUNGS AND PLEURA: No focal pulmonary opacity. No pulmonary edema. No pleural effusion. Nopneumothorax. HEART AND MEDIASTINUM: No acute abnormality of the cardiac and mediastinal silhouettes. BONES AND SOFT TISSUES: No acute osseous abnormality. IMPRESSION: 1. No acute process. Domonique Rick INTERIOR DESIGN PROFESSOR - PRODUCTION CLOTH CUTTER IMG DIAGNOSTIC IMAG ING ORDERABLES Final Result * US RENAL LIMITED (08/16/2024 11:55 AM EDT) Anatomical Region Laterality Modality Abdomen Ultrasound 08/16/2024 2:11 PM EDT Impressions 08/16/2024 2:11 PM EDT Unremarkable ultrasound of the kidneys. Narrative 08/16/2024 2:11 PM EDT EXAMINATION: ULTRASOUND OF THE KIDNEYS 08/16/2024 11:34 am COMPARISON: None. HISTORY: ORDERING SYSTEM PROVIDED HISTORY: Renal cancer, left (HCC) FINDINGS: The right kidney measures 11.6 cm in length and the left kidney measures 8.6 cm in length. Kidneys demonstrate normal cortical echogenicity. No hydronephrosis or intrarenal stones. No focal lesions. Procedure Note Tay Martinez, DO - 08/16/2024 EXAMINATION: ULTRASOUND OF THE KIDNEYS 08/16/2024 11:34 am COMPARISON: None. HISTORY: ORDERING SYSTEM PROVIDED HISTORY: Renal cancer, left (HCC) FINDINGS: The right kidney measures 11.6 cm in length and the left kidney measures8.6 cm in length. Kidneys demonstrate normal cortical echogenicity. No hydronephrosis or intrarenal stones. No focal lesions. IMPRESSION: Unremarkable ultrasound of the kidneys. us Domonique Rick INTERIOR DESIGN PROFESSOR - PRODUCTION CLOTH CUTTER IMG US ORDERABLES F inal Result * (ABNORMAL) PSA, Diagnostic (07/01/2024 3:25 PM EDT) PSA 5.90(H) ng/mL BLOOD SPECIMEN / Unknown 07/01/2024 3:25 PM EDT us Cristiano Hay MD CHEMISTRY ORDERABLES Final R esult from Last 3 Months or Most Recently Relevant to Health Maintenance Insurance [employer] Care Teams Hose Inspector And Patcher Relationship Specialty Start Date End Date Stalin Singer MD [address] [place] [address] PCP - General Family Medicine 05/23/23
--- OUTSIDE RECORDS SUMMARY | 2024-11-05 11:13 | XMS_ITS | Encounter Summary ---
Author Organization [facility] Address [address] [place] [address] Care Team Providers Care Podopediatrician Name Role Phone Stalin Singer MD Primary Care Provider [phone] Encounter Details Date Type Department Care Team (Late st Contact Info) Description 09/14/2024 Results Follow-Up [facility] Specialty Providers on [address] [place] [id number] Moises Overton PA-C [address] [place] [address] [address] [place] [address] Social History Tobacco Use Types Packs/Day Years Used Date Smoking Tobacco: Never Passive Smoke Exposure: Past Smokeless Tobacco: Never Alcohol Use Standard Drinks/Week Comments Yes 1 (1 standard drink = 0.6 oz pur e alcohol) Sex and Gender Information Value Date Recorded Sex Assigned at Not on file Legal Sex Male 1:22 PM EDT Gender Identity Male 05/22/2023 3:10 PM EDT Sexual Orientation Not on file documented as of this encounter Plan of Treatment Upcoming Encounters Date Type Department Care Team (Late Contact Info) Description 11/15/2024 4:15 PM EDT Office Visit [facility] UROLOGY Part of [address] [place] [address] Cristiano Hay MD [address], [address] [place] [address] 6-8wk med check/PVR documented as of this encounter Visit Diagnoses Not on filedocumented in this encounter Care Teams Podopediatrician Relationship Specialty Start Date End Date Stalin Singer MD [address] [place] [address] PCP - General Family Medicine 05/23/23 documented as of this encounter
--- OUTSIDE RECORDS SUMMARY | 2024-11-05 11:13 | XMS_ITS | Encounter Summary ---
Author Organization [facility] Address [address] [place] [address] Phone Care Team Providers Care Technical Designer Name Role Phone Stalin Singer MD Primary Care Provider [phone] Encounter Details Date Type Department Care Team (Late st Contact Info) Description 07/14/2024 Patient Risk Score [facility] [address] [facility] [address] [place] [address] Social History Tobacco Use Types [...] Description 05/09/2025 4:00 PM EDT Office Visit [facility] [address] [place] [address] Andra Ramirez, COMMUNITY ARTIST-SERVICE ORDER EXPEDITER [address], [address] [place], [place] [phone] documented as of this encounter Visit Diagnoses Not on filedocumented in this encounter Care Teams Technical Designer Relationship Specialty Start Date End Date Stalin Singer MD [address] [place] [address] PCP - General Family Medicine 11/13/22 documented as of this encounter
--- OUTSIDE RECORDS SUMMARY | 2024-11-05 11:13 | XMS_ITS | Clinical Summary ---
Author Organization [facility] Address [address] [place] [address] Care Team Providers Care Collections Rep Name Role Phone Stalin Singer MD Primary Care Provider [phone] Rachel Mckeon INTERFACE DEVELOPER Unavailable [phone] Leon Maria DO Unavailable [phone] Allergies Active Allergy Reactions Criticality Noted Date [...] capsule Take 120 mg by mouth 4 Active doxazosin (Cardura) 4 MG tablet Take 4 mg by mouth at bedtime Active azelastine (Astelin) 0.1 % nasal sprayIndications :Chronic rhinitis Administer 2 sprays into each nostril in the morning and 2 sprays before bedtime. Use in each nostril as directed. 90 mL 3 4 12/17/19 25 Active Fluticasone-Umec lidin-Vilant (Trelegy Ellipta) 100-62.5-25 MCG/ACT aerosol powderIndication s:Cough variant asthma (HCC) Inhale 1 puff Daily 3 each 3 4 01/12/20 25 Active ipratropium (Atrovent) 0.06 % nasal sprayIndications :Acute maxillary sinusitis, recurrence not specified Administer 2 sprays into each nostril in the morning and 2 sprays in the evening and 2 sprays before bedtime. 15 mL 11 4 Active montelukast (Singulair) 10 MG tablet Take 10 mg by mouth Daily 4 Active predniSONE (Deltasone) 50 MG tabletIndication s:Sinusitis, unspecified chronicity, unspecified location,Nasal congestion 1 tablet daily in morning with food for 5 days 5 tablet 5 Active fluconazole (Diflucan) 150 MG tablet Take one tablet PO now, then repeat dose in 72 hours 5 Active Active Problems Problem Noted Date Diagnosed [...] Encounters Date Type Department Care Team Description 09/24/2024 4:00 PM EDT Office Visit [facility] [place] [facility] [address] [place] [address] Leon Maria, Sinusitis, unspecified chronicity, unspecified location (Primary Dx); Chronic anticoagulation; Nasal congestion 09/24/2024 Bamboo flowsheet [facility] [address] [place] [address] Leon Maria DO 09/24/2024 Travel 09/03/2024 3:45 PM EDT Office Visit [facility] [address] [place] [address] Leon Maria DO Sinusitis, unspecified chronicity, unspecified location (Primary Dx); Nasal congestion; Chronic anticoagulation 09/03/2024 Bamboo flowsheet [facility] [address] [place] [address] Leon Maria DO 09/03/2024 Travel 08/20/2024 3:45 PM EDT Office Visit [facility] [address] [place] [address] Leno Maria, Sinusitis, unspecified chronicity, unspecified location (Primary Dx); Nasal congestion; Chronic anticoagulation 08/20/2024 Bamboo flowsheet [facility] [address] [place] [phone] Leon Maria, 08/20/2024 Travel 08/12/2024 External Result Encounter [facility] External Department Unsolicited Leon Maria DO 08/10/2024 Telephone [facility] [facility] [address] [place] [address] Leon Maria DO from Last 3 Months Family History Medical [...] - - Weight 97.5 kg (215 lb) 09/24/2024 3:53 PM EDT Height 167.6 cm (5' 6 ) 09/24/2024 3:53 PM EDT Body Mass Index 34.7 09/24/2024 3:53 PM EDT Plan of Treatment Not on file Procedures Procedure Name Priority Date/Time Associated Diagnosis Comments ANAEROBIC CULTURE STAT 08/12/2024 1:3 8 PM EDT AEROBIC CULTURE STAT 08/12/2024 1:38 PM EDT GRAM STAIN STAT 08/12/2024 1:38 PM EDT BASIC METABOLIC PANEL Routine 08/11/2024 9:24 AM EDT Preop testing Sinusitis, unspecified chronicity, unspecified location CBC WITH AUTO DIFFERENTIAL Routine 08/11/2024 9:24 AM EDT Preop testing Sinusitis, unspecified chronicity, unspecified location from Last 3 Months Results * ANAEROBIC CULTURE (08/12/2024 1:38 PM EDT) [facility] NOTE No Anaerobes Isolated 3 Days 08/15/2024 8:33 AM EDT [facility] Sinus Contents Bronchial brushings specimen / Unknown 08/12/2024 1:38 PM EDT 08/12/2024 4:32 PM EDT Comment:Sinus Contents Narrative [facility] - 08/15/2024 8:33 AM EDT MAXILLARY SINUS CONTENTS Leon Maria DO LAB BLOOD ORDERABLES Final Result Performing Organization Address [facility] de Phone Number [address] [address], [facility] [address] [place] [address] * AEROBIC CULTURE (08/12/2024 1:38 PM EDT) [facility] ORGANISM Haemophilus influenzae 08/13/2024 12:32 PM EDT [facility] BETA LACTAMASE Negative 08/13/2024 12:32 PM EDT [facility] QUANTITY OF GROWTH Moderate Growth 08/13/2024 12:32 PM EDT [facility] Sinus Contents Bronchial brushings specimen / Unknown 08/12/2024 1:38 PM EDT 08/12/2024 4:32 PM EDT Comment:Sinus Contents Narrative [facility] - 08/15/2024 8:33 AM EDT MAXILLARY SINUS CONTENTS eLon Maria DO LAB BLOOD ORDERABLES Final Result Performing Organization Address City/[facility]/ZIP Co de Phone Number [facility] [address] [place] [address], [facility] [address] [place] [address] * (ABNORMAL) Gram stain (08/12/2024 1:38 PM EDT) GRAM STAIN 2+ White Blood Cells(A) 08/13/2024 12:49 PM EDT [facility] GRAM STAIN No Bacteria Seen 08/13/2024 12:49 PM EDT [facility] Sinus Contents Bronchial brushings specimen / Unknown 08/12/2024 1:38 PM EDT 08/12/2024 4:32 PM EDT Comment:Sinus Contents Narrative [facility] - 08/15/2024 8:33 AM EDT MAXILLARY SINUS CONTENTS Leon Maria DO LAB MICROBIOLOGY - GENERAL ORDERABLES Final Result Performing Organization Address [facility] de Phone Number [facility] [address] [place] [address], [facility] [address] [place] [address] * CBC auto differential (08/11/2024 9:24 AM EDT) Blood Venous blood specimen / Unknown Leon Maria DO LAB BLOOD ORDERABLES Final Result Performing Organization Address [facility] de Phone Number [facility] [address] [place] [address], * Basic metabolic panel (08/11/2024 9:24 AM EDT) Blood Venous blood specimen / Unknown Leon Maria DO LAB BLOOD ORDERABLES Final Result Performing Organization Address [facility] Co de Phone Number [facility] [address] [place] [address], from Last 3 Months Insurance [employer] Care Teams Collections Rep Relationship Specialty Start Date End Date Stalin Singer MD PCP - General Family Medicine 01/30/24 Rachel Mckeon NP Nurse Practitioner Neurology 02/13/24 Leon Maria DO [address] [place] [address] Otolaryngology 02/13/24
--- OUTSIDE RECORDS SUMMARY | 2024-11-05 11:13 | XMS_ITS | Patient Health Record ---
Author Organization [facility] in [place] Address [address] [place] [address] Care Team Providers Care Associate Professor Of Pathology Name Role Phone Kev Singer Primary Care Provider Allergies No Known Allergies Results Component Value Reference Range Notes FREE T3 Reviewed date:03/27/2024 02:19:00 PM Interpretation: Performing Lab: Notes/Report: [facility] , Free T3 2.46 2.18-3.98 pg/mL Performing Lab: see note ML - [facility] LB GLYCOHEMOGLOBIN A1C Reviewed date:03/27/2024 02:19:00 PM Interpretation: Performing Lab: Notes/Report: [facility] , Glycohemoglobin A1C 5.4 4.5-6.2 % ACTION SUGGESTED ADA RECOMMENDED LIMIT 4.0 - 6.0 > 7.0 ADA THERAPEUTIC TARGET < 7.0 Estimated Average Glucose 108 Performing Lab: see note ML - [facility] LB LIPID PROFILE Reviewed date:03/27/2024 02:19:00 PM Interpretation: Performing Lab: Notes/Report: [facility] , Triglycerides 69 <=150 mg/dL Cholesterol 124 [...] RISK Performing Lab: see note ML - [facility] PROF 14(COMP METB) Reviewed date:03/27/2024 02:19:00 PM Interpretation: Performing Lab: Notes/Report: [facility] , Sodium 142 136-145 mmol/L Potassium 4.6 [...] 0.9 Performing Lab: see note ML - [facility] PSA Reviewed date:03/27/2024 02:19:00 PM Interpretation: Performing Lab: Notes/Report: [facility] , Prostate Specific Antigen Dx 6.19 <=4.00 ng/mL Performing Lab: see note ML - [facility] T4 Reviewed date:03/27/2024 02:19:00 PM Interpretation: Performing Lab: Notes/Report: [facility] , T4 Thyroxine 8.20 4.50-12.10 ug/dL Performing Lab: see note - [facility] TSH Reviewed date:03/27/2024 02:19:00 PM Interpretation: Performing Lab: Notes/Report: [facility] , Thyroid Stimulating Hormone 1.215 0.358-3.740 u IU/mL Performing Lab: see note ML - [facility] PSA Reviewed date:07/01/2024 08:25:05 PM Interpretation: Performing Lab: Notes/Report: [facility] , Prostate Specific Antigen Dx 5.90 <=4.00 ng/mL Performing Lab: see note ML - [facility] LB CBC AUTO DIFF Reviewed date:07/31/2024 01:35:15 PM Interpretation: Performing Lab: Notes/Report: [facility] , White Blood Count 10.2 4.0-11.0 10 3/uL Red Blood Count 5.12 4.70-6.10 10 6/uL Hemoglobin 15.9 14.0-18.0 g/dL Hematocrit 45.6 42.0-54.0 % Mean Corpuscular Volume 89.1 80.0-94.0 fL Mean Corpuscular Hemoglobin 31.1 25.9-34.0 pg Mean Corpuscular HGB Conc 34.9 29.9-35.2 g/dL Red Cell Distribution Width 13.2 11.0-15.0 % Platelet Count 220 150-450 10 3/uL Mean Platelet Volume 9.0 9.5-13.5 fL Neutrophils Percent Auto 67.1 43.0-75.0 % Lymphocytes Percent Auto 18.4 20.5-60.0 % Monocytes Percent Auto 10.6 1.7-12.0 % Eosinophils Percent Auto 2.9 0.9-7.0 % Basophils Percent Auto 0.7 0.2-2.0 % Immature Granulocytes Pct Auto 0.3 0.0-0.5 % Neutrophils Absolute Auto 6.8 1.4-6.5 10 3/uL Lymphocytes Absolute Auto 1.9 1.2-3.8 10 3/uL Monocytes Absolute Auto 1.1 0.3-0.8 10 3/uL Eosinophils Absolute Auto 0.3 0.0-0.7 10 3/uL Basophils Absolute Auto 0.1 0.0-0.1 10 3/uL Immature Granulocytes Abs Auto 0.03 0.00-0.03 10 3/uL Performing Lab: see note - [facility] LB PROF CHEM 8 (BAS METB) Reviewed date:07/31/2024 01:35:15 PM Interpretation: Performing Lab: Notes/Report: [facility] , Sodium 139 136-145 mmol/L Potassium 4.4 3.5-5.1 mmol/L Chloride 104 98-107 mmol/L Carbon Dioxide 27.5 21.0-32.0 mmol/L Anion Gap 11.9 Glucose 115 74-106 mg/dL Blood Urea Nitrogen 21.0 7.0-18.0 mg/dL Creatinine 1.49 0.70-1.30 mg/dL Estimated GFR ( Cheryl 58 >=60 mL/min/1.73m 2 Estimated GFR (Non- Elida 48 >=60 mL/min/1.73m 2 BUN Creatinine Ratio 14.1 Calcium 9.3 8.5-10.1 mg/dL Performing Lab: see note ML - The [facility] Surgical Pathology ([facility]) ( Not yet reviewed by provider) Interpretation: Performing Lab: Notes/Report: jennifer H: [place] [address] B. LLB One core, 1.7 cm in length. Entirely 1cs. K: [address] [facility]. [place], [place] [address] -- Diagnosis -- Alona Orourke/mj:09/13/2024 B: LLB J. RLM One core, 1.1 cm in length. Entirely 1cs. H. RLB One core, 1.5 cm in length. Entirely 1cs. E. LA One core, 0.8 cm in length. Entirely 1cs. G. PROSTATE, RB, NEEDLE CORE BIOPSY: Benign prostatic tissue. Electronically Signed Out G: RB Path Number: [id number] C: LM F. LLA One core, 1.2 cm in length. Entirely 1cs. F. PROSTATE, LLA, NEEDLE CORE BIOPSY: Benign prostatic tissue. C. PROSTATE, LM, NEEDLE CORE BIOPSY: Benign prostatic tissue. Source of Specimen CONSULTING PATHOLOGISTS [facility] km/09/14/2024 Alicia. RA One core, 1.4 cm in length. Entirely [address]. [facility] SURGICAL PATHOLOGY CONSULTATION J. PROSTATE, RLM, NEEDLE CORE BIOPSY: Benign prostatic tissue. E. PROSTATE, LA, NEEDLE CORE BIOPSY: Benign prostatic tissue. Pre-Op Diagnosis: ELEVATED PSA E: FAROOQ CHASE, PROSTATE BIOPSIES All specimens are received in formalin A: LB L. RLA One core, 1.4 cm in length. Entirely 1cs. jj jennifer I. RM One core, 1.5 cm in length. Entirely 1[place] [address] D. PROSTATE, LLM, NEEDLE CORE BIOPSY: Benign prostatic tissue. H. PROSTATE, RLB, NEEDLE CORE BIOPSY: Benign prostatic tissue. Operative Findings: PROSTATE BIOPSY X 12 F: LLA L. PROSTATE, RLA, NEEDLE CORE BIOPSY: Benign prostatic tissue. I. PROSTATE, RM, NEEDLE CORE BIOPSY: Benign prostatic tissue. Patient Name: BOB CHASE LM One core, 1.8 cm in length. Entirely 1cs. I: RM Interpretation Performed at [place] [address] Microscopic Description A. PROSTATE, LB, NEEDLE CORE BIOPSY: Benign prostatic tissue. on sponges and are cote-white needle core biopsies less than < 0.1 cm Med Rec: [id number] J: RLM Clinical Information D. LLM One core, 1.3 cm in length. Entirely 1cs. D: LLM in diameter with the following lengths: A-L. Microscopic examination performed. L: RLA G. RB One core, 1.7 cm in length. Entirely 1cs. A. LB One core, 1.5 cm in length. Entirely 1cs. Gross Description Processing Lab: [address], ANATOMIC PATHOLOGY B. PROSTATE, LLB, NEEDLE CORE BIOPSY: Benign prostatic tissue. Rylee Prado M.D. K. PROSTATE, RA, NEEDLE CORE BIOPSY: Benign prostatic tissue. CBC AUTO DIFF Reviewed date:03/27/2024 02:19:00 PM Interpretation: Performing Lab: Notes/Report: [facility] , White Blood Count 12.2 4.0-11.0 10 [...] Performing Lab: see note ML - The [facility] Reason For Referral No Information Medications Medication SIG (Take, Route, Frequency, Duration) Notes Start Date End Date Status Jardiance 10 mg TAKE 1 TABLET DAILY Active Valsartan 160 MG TAKE 1 TABLETS BY [facility] EVERY DAY FOR 30 DAYS; Duration: 90 days Active Eliquis 5 MG 1 tablet Orally twic e a day; Duration: 90 days 09/19/2023 Active True Metrix Blood Glucose Test - USE 1 STRIP VIA METER ONCE A DAY; Duration: 90 Active Cetirizine HCl 10 MG 1 tablet Orally Onc e a day; Duration: 30 days 09/02/2023 Active Azelastine HCl 0.05 % 1 drop into affect ed eye Ophthalmic Daily; Duration: 90 days 06/13/2022 Active Ozempic (2 MG/DOSE) 8 MG/3ML INJECT 2 MG UNDER THE SKIN WEEKLY Active Doxazosin Mesylate 4 MG 2 tablets Orally Once a day; Duration: 90 days Active Singulair 10 MG 1 tablet Orally Once a day; Duration: 30 day(s) 09/02/2023 Active Montelukast Sodium 10 MG TAKE 1 TABLET B Y MOUTH EVERY DAY FOR 30 DAYS; Duration: 90 days Active dilTIAZem HCl ER Coated [...] Problem Status W/U Status Risk Notes Problem Essential hypertension (45498721) Essential (primary) hypertension (I10) Active confirmed Problem Type 2 diabetes mellitus with other specified complication (E11.69) Active confirmed Problem Atrial fibrillation (36393135) Unspecified atrial fibrillation (I48.91) Active confirmed Problem Cardiac arrhythmia (010540299) Other specified cardiac arrhythmias (I49.8) Active confirmed Problem Atrial flutter (2552886) Atrial flutter (I48.92) Active confirmed Problem Asthma (790423252) Asthma (J45.909) Active confirmed Problem Atrial fibrillation (disorder) (49082445) Afib (I48.91) Active confirmed Problem Sleep apnea (90050406) Sleep apnea (G47.30) Active confirmed Problem Atrial fibrillation (02720673) Atrial fibrillation with RVR (I48.91) Active confirmed Problem Leukocytosis (589437771) Elevated WBCs (D72.829) Active confirmed Problem 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 Problem Diabetes mellitus (09050129) Diabetes mellitus (E11.9) Active confirmed Encounters Encounter Location Date Provider Diagnosis [facility] [address] [place] [address] 03/25/2024 Kev Singer Unspecified atrial fibrillation I48.91 [facility] [address] [place] [address] 03/27/2024 Kev Singer Elevated PSA R97.20 and Elevated WBCs D72.829 [facility] [address] [facility] [place] [address] 07/01/2024 Kev Singer [facility] [place] [address] [place] [address] 10/28/2024 Kev Singer [facility] [address] [place] [address] 12/01/2023 Kev Singer [facility] [address] [place] [address] 03/09/2024 Kev Singer Essential (primary) hypertension I10 [...] with other specified complication (ICD-10 - E11.69) 03/25/2024 Unspecified atrial fibrillation (ICD-10 - I48.91) 03/27/2024 Elevated PSA (ICD-10 - R97.20) 03/27/2024 Elevated WBCs (ICD-10 - D72.829) 03/09/2024 Atrial fibrillation with RVR (ICD-10 - [...] PSA, PROSTATE-SPECIFIC ANTIGEN 4 URIC ACID 03/19/2023 Surgical Pathology ([facility]) 09/13/2024 PSA-FREE AND TOTAL 04/27/2023 Sleep Study: Retitration BIPAP/CPAP 10/2023 CBC W/AUTO DIFF 03/27/2024 STOOL OCCULT BLOOD 03/19/2023 THYROID PANEL (T4/TSH/FREE T3) Free PSA 03/27/2024 Insurance Providers Payer Name Payer Address Payer Phone Subscriber Number Group Number Insured Name Patient Relationship to Insured Coverage Start Date Coverage End Date MMO [address] [place], [place] [id number] Bob Chase Self - patient is the insured 4 [employer] [address] [place] [address] [id number] Bob Chase Self - patient is the insured Medical (General) History Medical History History ICD Code Controlled type 2 diabetes m ellitus with other specified complication, unspecified snf insulin use status E11.69 Asymptomatic hypertension I10 osteophytes are noted on thoracic spine Surgical History Surgery Date(Month/Year) Partial Nephrectomy Hospitalization History Reason Date(Month/Year) [facility] [place] Shortness of breath and Hypertensi on 2022
--- OUTSIDE RECORDS SUMMARY | 2024-11-05 11:13 | XMS_ITS | Clinical Summary ---
Author Organization [facility] Address [address] [place] [address] Phone Care Team Providers Care Lbd Teacher Name Role Phone Stalin Singer MD Primary Care Provider [phone] Allergies No known active allergies Medications Jardiance [...] CD (Cardizem CD) 120 mg 24 hr capsuleIndicatio ns:Paroxysmal atrial fibrillation (Multi) Take 1 capsule (120 mg) by mouth if needed (if a fib lasts longer than 1-5 mins). 4 Active azelastine (Astelin) 137 mcg (0.1 %) nasal spray Administer 2 sprays into each nostril 2 times a day. DIRECTED 5 Active metoprolol succinate XL (Toprol-XL) 25 mg 24 hr tabletIndication s:Hypertensive left ventricular hypertrophy, without heart failure Take 1.5 tablets daily (37.5mg) daily 135 tablet 3 5 Active apixaban (Eliquis) 5 mg tabletIndication s:Paroxysmal atrial fibrillation (Multi) Take 1 tablet (5 mg) by mouth 2 times a day. 180 tablet 3 5 026 Active amLODIPine (Norvasc) 5 mg tabletIndication s:Hypertensive left ventricular hypertrophy, without heart failure Take 1 tablet (5 mg) by mouth once daily. 90 tablet 3 5 026 Active tamsulosin (Flomax) 0.4 mg 24 hr capsule Take 1 capsule (0.4 mg) by mouth once daily. Do not crush, chew, or split. Active valsartan (Diovan) 160 mg tabletIndication s:Hypotension due to drugs Take 1 tablet (160 mg) by mouth once daily. 90 tablet 3 5 026 Active spironolactone (Aldactone) 25 mg tabletIndication s:Essential hypertension Take 1 tablet (25 mg) by mouth once daily. 90 tablet 3 5 025 Discontin ued(Side effects) valsartan (Diovan) 320 mg tablet Take 0.5 tablets (160 mg) by mouth once daily. 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 [address] 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 [address] [facility] [address] [place] [address] Health Maintenance Due Date Last [...] 1981 DTaP/Tdap/Td Vaccines (1 - Tdap) 1984 PSA Prostate Cancer Screening 2012 Zoster Vaccines (1 of 2) 2012 COVID-19 Vaccine (1 - 2023-2 5 season) 2024 Influenza Vaccine (#1) 2024 Colonoscopy 09/16/2033 09/17/2023 Colorectal Cancer Screening [...] on patient's age to complete this topic Insurance [facility] MED GENERIC COMMERCIAL [facility] MED GENERIC COMMERCIAL Care Teams Lbd Teacher Relationship Specialty Start Date End Date Stalin Singer MD [address] [place] [address] PCP - General Family Medicine 11/13/22
--- OUTSIDE RECORDS SUMMARY | 2024-11-05 11:15 | XMS_ITS | CCD ---
Author Organization [facility] Care Team Providers Care Chief Digital Media Officer Name Role Phone YONG, DR VALDIVIA Consulting Unavailable DELPHINEY, DR VALDIVIA Primary Care Unavailable HOY, DR VALDIVIA Attending Unavailable HOY, DR VALDIVIA Admitting Unavailable MIKE RADFORD Consulting Unavailable MALINA, MIKE Attending Unavailable MIKE RADFORD Admitting Unavailable YONG, DR VALDIVIA Primary Care Unavailable KLIPPSTEVE BROWN [...] Shea Beach Primary Care Provider DO Damien Roth Emergency Provider MD Derick Gomes Admit Provider MD Derick Gomes Attending Provider [phone] Shea Beach MD Primary Care Provider Shea Beach Primary Care Physician MD Tariq Gordon Attending Provider EVAN, Tariq R Attending Unavailable NILL, Tariq R Attending Unavailable Shea Beach Referring Unavailable NILL, Tariq Bailey Attending Unavailable NILL, Tariq R Admitting Unavailable NILL, Tariq Bailey Referring Unavailable NILNoble, Tariq Bailey Attending Unavailable Unavailable Primary Care Provider Unavailabl e Shea Beach MD Primary Care Provider Linda DESIGN PROJECT MANAGER, Rachel Unavailable Leon Castro DO Unavailable [phone] Shea Beach MD Primary Care Provider [phone] Shea Beach MD Primary Care Provider Shea Beach MD Primary Care Provider [phone] Alistair Morelos DO Attending Provider Shea Beach MD Primary Care Provider Leon Castro DO Attending Provider Linda DESIGN PROJECT MANAGER, Rachel Unavailable Leon Castro Admitting Unavailable Leon Castro Attending Unavailable Alistair Morelos Admitting Unavailable Alistair Morelos Attending Unavailable Shea Beach M Primary Care Unavailable Shea Beach M Primary Care Unavailable Leon Castro Admitting Unavailable Leon Castro Attending Unavailable Tariq Gordon Attending Unavailable Evan, Tariq Bailey Admitting Unavailable CUCA PAULINO Referring Unavailable HOMarco Antonio, SHEA M Primary Care Unavailable DAMION HAY Referring Unavailable HOMarco Antonio, SHEA M Primary Care Unavailable CUCA PAULINO Referring Unavailable HOSHEA Bernard M Primary Care Unavailable LEON CASTRO Attending Unavailable RACHEL MCKEON Referring Unavailable LEON CASTRO Referring Unavailable LEON CASTRO Attending Unavailable RACHEL MCKEON Referring Unavailable BIEDENBACH, LEON Martel Attending Unavailable GILLMOR, RACHEL Referring Unavailable BIEDENBACH, LEON Martel Attending Unavailable BIEDENBACH, LEON Martel Referring Unavailable BIEDENBACH, LEON Martel Attending Unavailable BIEDENBACH, LEON Martel Attending Unavailable BIEDENBACH, LEON Martel Attending Unavailable BIEDENBACH, LEON Martel Attending Unavailable GILLMOR, RACHEL Attending Unavailable RAMBASEK, JANY Candelaria Attending Unavailable RAMBASEK, JANY Candelaria Attending Unavailable RAMBASEK, JANY Candelaria Referring Unavailable BIEDENBACH, LEON Martel Attending Unavailable GILLMOR, RACHEL Referring Unavailable RAMBASEK, JANY Candelaria Attending Unavailable BIEDENBACH, LEON Martel Attending Unavailable GILLMOR, RACHEL Referring Unavailable Allergies Allergy Classification Reported Allergen(s) Allergy Type Date of Onset Reaction(s) Facility (2 sources) Aminolevulinic Acid; Translations: [nitroglycerin] Drug Allergy 0 [facility] Repository (10 sources) Nitroglycerin; Translations: [nitroglycerin] Drug Allergy 9 Other, Low blood pressure (disorder), Other (See Comments) [facility] (20 sources) Nitroglycerin Allergy to substance 9 [facility] Healthcare Medications Current Medications Medication Drug Class(es) [...] 0 Start Date: 07/03/23 Status: Ordered amLODIPine 5 mg oral tablet (20 sources) Dihydropyridine Calcium Channel Long Start: 08-29-2024 take 2 tablets by mouth once daily amLODIPine (NORVASC) 5 MG tablet Take 2 tablets by mouth daily 08/29/2024 Active Start: 05-06-2024 End: 05-06-2025 take 1 tablet by mouth once daily amLODIPine (Norvasc) 5 mg tablet Indications: Hypertensive left ventricular hypertrophy, without heart failure Take 1 tablet (5 mg) by mouth once daily. 90 tablet 3 05/06/2024 05/06/2025 Active Start: 01-22-2023 End: 05-06-2024 take 1 tablet by mouth in the morning amLODIPine (Norvasc) 10 MG tablet Take 10 mg by mouth in the morning. 01/23/2023 Active amoxicillin 875 mg / clavulanate 125 mg oral tablet (9 sources) Penicillin-class Antibacterial Start: 01-23-2024 End: 02-20-2024 take 1 tablet by mouth in the morning amoxicillin-clavulanate (Augmentin) 875-125 MG tablet Indications: Acute maxillary sinusitis, recurrence not specified Take 1 tablet (875 mg) by mouth in the morning and 1 tablet (875 mg) before bedtime. Do all this for 28 days. 56 tablet 01/23/2024 02/20/2024 Active apixaban 5 mg oral tablet (20 sources) Factor Xa Inhibitor Start: 09-25-2023 End: 05-06-2025 take 1 tablet by mouth twice daily apixaban (Eliquis) 5 mg tablet Indications: Paroxysmal atrial fibrillation (Multi) Take 1 tablet (5 mg) by mouth 2 times a day. 180 tablet 3 05/06/2024 05/06/2025 Active azelastine hydrochloride 0.137 mg/actuat metered dose nasal spray (20 sources) Histamine-1 Receptor Antagonist Start: 02-13-2024 take 2 spray(s) nasal route twice daily azelastine (Astelin) 137 mcg (0.1 %) nasal spray Administer 2 sprays into each nostril 2 times a day. DIRECTED 02/13/2024 Active Start: 12-17-2023 End: 12-16-2024 take 2 spray(s) nasal route in the morning azelastine (Astelin) 0.1 % nasal spray Indications: Chronic rhinitis Administer 2 sprays into each nostril in the morning and 2 sprays before bedtime. Use in each nostril as directed. 90 mL 3 12/17/2023 12/16/2024 Active Start: 2022 take 1 drop(s) into the eye(s) once daily as needed Start: 2022 take 1 drop(s) into the eye(s) once daily as needed Azelastine 0.05 % drops Active 1 DROPS EYE-BOTH Daily as needed for Allergy Symptoms 2022 12:00am Start: 2022 take 1 drop(s) into the eye(s) once daily Azelastine Active 1 DROPS EYE-BOTH Daily 2022 12:00am azelastine (OPTI ESME) 0.05 % ophthalmic solution 1 drop as needed Active take 1 drop(s) into the eye(s) twice daily azelastine (OPTIVAR) 0.05 % ophthalmic solution 1 drop 2 times daily 0 Active cefadroxil 500 mg oral capsule (4 sources) Cephalosporin Antibacterial Start: 08-10-2024 End: 08-24-2024 take 1 capsule by mouth in the morning cefadroxil (Duricef) 500 MG capsule Indications: Sinusitis, unspecified chronicity, unspecified location , Nasal congestion Take 1 capsule (500 mg) by mouth in the morning and 1 capsule (500 mg) before bedtime. Do all this for 14 days. 28 capsule 08/10/2024 08/24/2024 Active ciprofloxacin 500 mg oral tablet (2 sources) Quinolone Antimicrobial Start: 09-13-2024 End: 09-16-2024 take 1 tablet by mouth twice daily ciprofloxacin (CIPRO) 500 MG tablet Take 1 tablet by mouth 2 times daily for 3 days 6 tablet 09/13/2024 09/16/2024 Active 24 hr dilTIAZem hydrochloride 120 mg [...] End: 11-12-2022 take 2 tablets by mouth once daily at bedtime take 1 tablet by melissa th twice [...] tablet (10 mg) by mouth once daily. 12/13/2022 Active fluconazole 150 mg oral tablet (7 sources) Azole Antifungal Start: 09-01-2024 fluconazole (Diflucan) 150 MG tablet Take one tablet PO now, then repeat dose in 72 hours 09/01/2024 Active 30 actuat fluticasone furoate 0.1 mg/actuat / umeclidinium 0.0625 mg/actuat / vilanterol 0.025 mg/actuat dry powder inhaler (20 sources) Anticholinergic, Corticosteroid, beta2-Adrenergic Agonist Start: 01-12-2024 End: 12-02-2025 take 1 puff(s) by inhalation once daily Fluticasone-Ume clidin-Vilant (Trelegy Ellipta) 100-62.5-25 MCG/ACT aerosol powder Indications: Cough variant asthma (HCC) Inhale 1 puff Daily 3 each 3 01/12/2024 01/11/2025 Active hydroCHLOROthiazide 25 mg oral tablet (10 sources) Thiazide Diuretic Start: 11-12-2022 End: 01-22-2023 take 1 tablet by mouth once daily ipratropium bromide 0.042 mg/actuat metered dose nasal spray (20 sources) Anticholinergic Start: 01-12-2024 End: 04-11-2024 take [...] sprays before bedtime. 15 mL 11 01/12/2024 Active metFORMIN hydrochloride 500 mg oral tablet (20 sources) Biguanide Start: 07-03-2023 MetFORMIN (Eqv-Glucophage XR) 500 mg oral tablet, extended release 1,000 mg = 2 tab(s), Oral, Daily, Refills(s) 0, Blood glucose Start Date: 07/03/23 Status: Ordered Start: 2022 take 1 tablet by melissa th once daily at bedtime Start: 06-17-2022 End: 05-06-2024 take 1 tablet by mouth every twenty-four hours metFORMIN XR 500 mg 24 hr tablet Take 1 tablet (500 mg) by mouth once every 24 hours. 06/17/2022 05/06/2024 Discontinued (Discontinued by another clinician) take 1 tablet by melissa th in the morning metFORMIN (Glucophage) 500 MG tablet Take 500 mg by mouth in the morning and 500 mg in the evening. Take with meals. Active 24 hr metoprolol succinate 25 mg extended release oral tablet (20 sources) beta-Adrenergic Long Start: 05-06-2024 metopr olol succinate XL (Toprol-XL) 25 mg 24 hr tablet Indications: Hypertensive left ventricular hypertrophy, without heart failure Take 1.5 tablets daily (37.5mg) daily 135 tablet 3 05/06/2024 Active Start: 07-03-2023 metoprolol 100 mg ER Tab 150 mg = 1.5 tab(s), Oral, Daily, Refills(s) 0, High blood pressure Start Date: 07/03/23 Status: Ordered Start: 07-03-2023 take 1 tablet by melissa th every twenty-four hours metoprolol succinate XL (Toprol-XL) 100 MG 24 hr tablet Take 150 mg by mouth 07/03/2023 Active Start: 01-22-2023 End: 05-06-2024 take 1 tablet by mouth once daily metoprolol succinate (TOPROL XL) 25 MG extended release tablet Take 1 tablet by mouth daily 06/16/2023 Active Start: 11-12-2022 Start: 2022 End: 11-12-2022 take 1 tablet by mouth once daily Metoprolol Succinate 100 mg Tablet Extended Release 24 Hr Discontinued 150 MG PO Daily 2022 12:00am November 12, 2022 3:22pm take 1 Tablet Start: 2022 take 1.5 tablets by mouth [...] tablet by mouth 2 times daily Active montelukast 10 mg oral tablet (20 sources) Leukotriene Receptor Antagonist Start: 01-13-2024 take [...] 0.5 mg (2 mg/3 mL) pen injector (5 sources) Start: 12-13-2022 Ozempic 0.25 m g or 0.5 mg (2 mg/3 mL) pen injector 12/13/2022 Active Start: 12-13-2022 Ozempic 0.25 m g or 0.5 mg (2 mg/3 mL) pen injector Ozempic, 2 MG/DOSE, 8 MG/3ML solution pen-injector (20 sources) Start: 07-03-2023 Ozempic, 2 MG/DOSE, 8 MG/3ML solution pen-injector Inject 2 mg under the skin every 7 (seven) days 07/03/2023 Active OZEMPIC, 2 MG/DOSE, 8 MG/3ML SOPN sc injection (4 sources) Start: 07-29-2023 OZEMPIC, 2 MG/DOSE, 8 MG/3ML SOPN sc injection Inject 2 mg into the skin every 7 days 07/29/2023 Active predniSONE 50 mg oral tablet (10 sources) Start: 08-10-2024 predniSONE (Deltasone) 50 MG tablet Indications: Sinusitis, unspecified chronicity, unspecified location , Nasal congestion 1 tablet daily in morning with food for 5 days 5 tablet 08/10/2024 Active 1 mg dose 1.5 ml semaglutide 1.34 mg/ml pen injector (3 sources) Semaglutide, 1 MG/DOSE, (OZEMPIC, 1 MG/DOSE,) 2 MG/1.5ML SOPN Inject 1 Units into the skin Active tamsulosin hydrochloride 0.4 mg oral capsule (1 source) alpha-Adrenergic Long take 1 capsule by mouth once daily tamsulosin (Flomax) 0.4 mg 24 hr capsule Take 1 capsule (0.4 mg) by mouth once daily. Do not crush, chew, or split. Active valsartan 160 mg oral tablet (20 sources) Angiotensin 2 Receptor Long Start: 10-27-2024 End: 10-27-2025 take 1 tablet by mouth once daily valsartan (Diovan) 160 mg tablet Indications: Hypotension due to drugs Take 1 tablet (160 mg) by mouth once daily. 90 tablet 3 10/27/2024 10/27/2025 Active Start: 01-22-2023 End: 05-06-2025 take 1 tablet by mouth once daily valsartan (Diovan) 320 mg tablet Indications: Hypertensive left ventricular hypertrophy, without heart failure Take 1 tablet (320 mg) by mouth once daily. 90 tablet 3 05/06/2024 05/06/2025 Active Start: 11-12-2022 End: 05-06-2024 take 1 tablet by mouth in the morning valsartan (Diovan) 160 MG tablet Take 160 mg by mouth in the morning. 07/03/2023 Active End: 10-27-2024 take 0.5 tablet by mouth once daily valsartan (Diovan) 320 mg tablet Take 0.5 tablets (160 mg) by mouth once daily. 10/27/2024 Discontinued (Duplicate order) Completed/Discontinued Medications Medication Drug Class(es) Dates Sig [...] iopamidol (ISOVUE-370) 76 % injection 75 mL spironolactone 25 mg oral tablet (20 sources) Aldosterone Antagonist Start: 03-25-2023 End: 05-06-2025 take 1 tablet by mouth once daily spironolactone (Aldactone) 25 mg tablet Indications: Essential hypertension Take 1 tablet (25 mg) by mouth once daily. 90 tablet 3 05/06/2024 10/27/2024 Discontinued (Side effects) Problems Active Problems Problem Classification Problem Date Documented Da te Episodic/Chronic Acute bronchitis (1 source) Acute bronchitis, unspecified; Translations: [ACUTE BRONCHITIS UNSPECIFIED] Onset: 11-01-2021 Episodic Anal and rectal conditions (1 source) Rectal polyp; Translations: [Rectal polyp] Onset: 10-01-2023 Episodic Asthma (2 sources) Cough variant asthma; Translations: [Cough variant asthma] 01-12-2024 Chronic Cancer of kidney and renal pelvis (15 sources) Malignant neoplasm of unspecified kidney, except renal pelvis; Translations: [Malignant neoplasm of left kidney, except renal pelvis] Onset: 03-27-2021 Chronic Cardiac dysrhythmias (20 sources) Atrial fibrillation; Translations: [Paroxysmal atrial fibrillation] Onset: 10-31-2023 Resolved: 01-29-2024 09-18-2023 Chronic Complications of surgical procedures or medical care (2 sources) Drug-induced hypotension; Translations: [Hypotension due to drugs] Onset: 10-27-2024 10-27-2024 Episodic Diabetes mellitus without complication (20 sources) Type 2 diabetes mellitus without complications; Translations: [Type 2 diabetes mellitus] Onset: 04-09-2021 Resolved: 01-29-2024 Chronic Diabetes mellitus without complication (1 source) Other abnormal glucose; Translations: [OTHER ABNORMAL GLUCOSE] Onset: 11-28-2021 Episodic Diseases of white blood cells (18 sources) Leukocytosis; Translations: [Elevated white blood cell count, unspecified] Onset: 04-09-2024 04-09-2024 Chronic Essential hypertension (20 sources) Essential (primary) hypertension; Translations: [Essential hypertension] Onset: 11-24-2021 Resolved: 01-29-2024 Chronic Hypertension with complications and secondary hypertension (20 sources) Hypertensive urgency ; Translations: [Hypertensive urgency] Onset: 01-22-2023 Resolved: 01-29-2024 2022 Chronic Nonspecific chest pain (6 sources) Chest pain; Translations: [Chest pain, unspecified] 2022 Episodic Other aftercare (18 sources) Long-term current use of anticoagulant; Translations: [director long term care (current) use of 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] 01-31-2024 Episodic Other diseases of kidney and ureters (20 sources) Renal mass; Translations: [Other specified disorders of kidney and ureter] Onset: 01-17-2023 Resolved: 01-29-2024 01-17-2023 Chronic Other gastrointestinal disorders (1 source) Abnormal feces; Translations: [Other fecal abnormalities] Onset: 07-14-2023 Episodic Other lower respiratory disease (2 sources) Snoring; Translations: [Snoring] 11-12-2023 Episodic Other lower respiratory disease (2 sources) Dyspnea on exertion; Translations: [Other forms of dyspnea] 12-17-2023 Episodic Other nutritional; endocrine; and metabolic disorders (20 sources) Body mass index 30+ - obesity; Translations: [Body mass index (BMI) 34.0-34.9, adult] Onset: 10-31-2023 Resolved: 01-29-2024 07-14-2023 Chronic Other nutritional; endocrine; and metabolic disorders (3 sources) Obese class III 07-14-2023 Chronic Other upper respiratory disease (4 sources) Chronic rhinitis; Translations: [Chronic rhinitis] 12-17-2023 Chronic Other upper respiratory disease (18 sources) Nasal congestion; Translations: [Nasal congestion] 01-31-2024 Episodic Other upper respiratory disease (1 source) Deviated nasal septum; Translations: [Deviated nasal septum] Onset: 08-12-2024 Episodic Other upper respiratory infections (20 sources) Sinusitis; Translations: [Chronic sinusitis, unspecified] Onset: 08-02-2024 01-31-2024 Chronic Other upper respiratory infections (7 sources) Acute maxillary sinusitis; Translations: [Acute maxillary sinusitis, unspecified] 01-12-2024 Episodic Residual codes; unclassified (4 sources) Obstructive sleep apnea (adult) (pediatric); Translations: [OBSTRUCTIVE SLEEP APNEA] Onset: 04-10-2021 Chronic Residual codes; unclassified (20 sources) Obstructive sleep apnea syndrome; Translations: [Obstructive sleep apnea (adult) (pediatric)] Onset: 01-22-2023 Resolved: 01-29-2024 01-22-2023 Chronic Residual codes; unclassified (2 sources) Daytime somnolence; Translations: [Other hypersomnia] 11-12-2023 Chronic Residual codes; unclassified (2 sources) History of partial nephrectomy; Translations: [Acquired absence of kidney] 08-16-2024 Episodic Residual codes; unclassified (1 source) Acquired absence of kidney; Translations: [Acquired absence of kidney] Onset: 08-16-2024 Episodic Unclassified (3 sources) CONTACT W/AND (SUSP) EXPOS COVID-19; Translations: [CONTACT W/AND (SUSP) EXPOS COVID-19] Onset: 11-01-2021 Past or Other Problems Problem Classification Problem Date Documented Da te Episodic/Chronic Diverticulosis and diverticulitis (20 sources) Diverticula of intestine; Translations: [Diverticulosis of large intestine without perforation or abscess without bleeding] Onset: 10-01-2023 Resolved: 01-29-2024 Chronic Neoplasms of unspecified nature or uncertain behavior (8 sources) Neoplasm of kidney; Translations: [Neoplasm of unspecified behavior of unspecified kidney] Onset: 12-22-2018 01-17-2023 Episodic Other and unspecified benign neoplasm (20 sources) Hyperplastic polyp of large intestine; Translations: [Rectal polyp] Onset: 01-29-2024 Resolved: 01-29-2024 10-01-2023 Episodic Other gastrointestinal disorders (20 sources) Occult blood in stools; Translations: [Other fecal abnormalities] Onset: 01-29-2024 Resolved: 01-29-2024 07-03-2023 Episodic Other non-traumatic joint disorders (3 sources) Pain in left knee; Translations: [PAIN IN LEFT KNEE] Onset: 03-25-2021 Episodic Other non-traumatic joint disorders (1 source) Effusion, left knee; Translations: [EFFUSION LEFT KNEE] Onset: 03-27-2021 Episodic Other nutritional; endocrine; and metabolic disorders (20 sources) Body mass index 40+ - severely obese; Translations: [Body mass index (BMI) 40.0-44.9, adult] Onset: 01-23-2023 Resolved: 05-06-2024 01-23-2023 Chronic Other screening for suspected conditions (not mental disorders or infectious disease) (20 sources) Raised prostate specific antigen; Translations: [Elevated prostate specific antigen [PSA]] Onset: 05-22-2023 Resolved: 01-29-2024 01-29-2024 Episodic Residual codes; unclassified (20 sources) Never smoked tobacco; Translations: [Other specified health status] Onset: 10-31-2023 Resolved: 01-29-2024 10-31-2023 Episodic Unclassified (1 source) CONTACT W/AND (SUSP) EXPOS COVID-19; Translations: [CONTACT W/AND (SUSP) EXPOS COVID-19] Onset: 10-31-2021 Results Test Name Value Interpretation Reference Range Facility Surgical Pathology Reporton 09-13-2024 Surgical Pathology Report (NOTE) Path Number: [id number] -- Diagnosis -- A. PROSTATE, LB, NEEDLE [...] RLM K: RA L: RLA Gross Description CLARENCE FLORES PROSTATE BIOPSIES All specimens are received in [...] cm in length. Entirely 1cs. jj jennifer Orourke/mj:09/13/2024 Microscopic Description A-L. Microscopic examination performed. Processing Lab: [address] [id number] Interpretation Performed at [address] [id number] SURGICAL PATHOLOGY CONSULTATION Patient Name: CLARENCE FLORES Rec: [id number] [facility] [employer] [facility] ANATOMIC PATHOLOGY [address] [place], [place] [address] [facility] XR CHEST (2 VW)on 08-17-2024 XR CHEST (2 VW) EXAM: 2 VIEW(S) XRAY OF THE CHEST COMPARISON: None available. CLINICAL HISTORY: Renal cancer, left (HCC); History of partial nephrectomy. FINDINGS: LUNGS AND PLEURA: No focal pulmonary opacity. No pulmonary edema. No pleural effusion. No pneumothorax. HEART AND MEDIASTINUM: No acute abnormality of the cardiac and mediastinal silhouettes. BONES AND SOFT TISSUES: No acute osseous abnormality. IMPRESSION: 1. No acute process. Interpreted by: River Murray MD Signed by: River Murray MD 08/17/24 Final result Normal [facility] XR Chest 2 Viewson 1. No acute process. [facility] RIS CONSOLIDATED EXAM: 2 VIEW(S) XRAY OF THE CHEST COMPARISON: None available. CLINICAL HISTORY: Renal cancer, left (HCC); History of partial nephrectomy. FINDINGS: LUNGS AND PLEURA: No focal pulmonary opacity. No pulmonary edema. No pleural effusion. No pneumothorax. HEART AND MEDIASTINUM: No acute abnormality of the cardiac and mediastinal silhouettes. BONES AND SOFT TISSUES: No acute osseous abnormality. [facility] CONSOL[facility] River Murray MD - 08/17/2024 EXAM: 2 [...] osseous abnormality. IMPRESSION: 1. No acute process. [facility] XR Chest 2 ViewsOrdered By: River Murray on 08-17-2024 [facility] [employer] Work Phone: US Kidney limitedon 08-17-19 Unremarkable ultraso und of the kidneys. [facility]SOL[facility] EXAMINATION: ULTRASOUND OF THE KIDNEYS 08/16/2024 11:34 am COMPARISON: None. HISTORY: ORDERING SYSTEM PROVIDED HISTORY: Renal cancer, left (HCC) FINDINGS: The right kidney measures 11.6 cm in length and the left kidney measures 8.6 cm in length. Kidneys demonstrate normal cortical echogenicity. No hydronephrosis or intrarenal stones. No focal lesions. [facility] Tay Martinez D O - 08/16/2024 EXAMINATION: ULTRASOUND OF THE KIDNEYS 08/16/2024 11:34 am COMPARISON: None. HISTORY: ORDERING SYSTEM PROVIDED HISTORY: Renal cancer, left (HCC) FINDINGS: The right kidney measures 11.6 cm in length and the left kidney measures 8.6 cm in length. Kidneys demonstrate normal cortical echogenicity. No hydronephrosis or intrarenal stones. No focal lesions. IMPRESSION: Unremarkable ultrasound of the kidneys. [facility] Radiology Study observation (narrative) [facility] US Kidney limitedOrdered By: Tay Martinez on 08-16-2024 [facility] [employer] Work Phone: US RENAL LIMITEDon US RENAL LIMITED EXAMINATION: ULTRASOUND OF THE KIDNEYS 08/16/2024 11:34 am COMPARISON: None. HISTORY: ORDERING SYSTEM PROVIDED HISTORY: Renal cancer, left (HCC) FINDINGS: The right kidney measures 11.6 cm in length and the left kidney measures 8.6 cm in length. Kidneys demonstrate normal cortical echogenicity. No hydronephrosis or intrarenal stones. No focal lesions. IMPRESSION: Unremarkable ultrasound of the kidneys. Interpreted by: Tay Martinez DO Signed by: Tay Martinez DO 08/16/24 Final result Normal [facility] XR Chest 2 Viewson Radiology Study observation (narrative) [facility] Aerobic Cultureon 08-12-2024 Aerobic Culture MAXILLARY SINUS CONT ENTS ORGANISM: Haemophilus influenzae (O:HAEINF) Beta Lactamase Negative Quantity of Growth Moderate Growth MAXILLARY SINUS CONTENTS No Anaerobes Isolated 3 Days MAXILLARY SINUS CONTENTS Gram Stain Result 2+ White Blood Cells No Bacteria Seen PERFORMED BY: [address] [place] [id number] PATHOLOGIST WEB MANAGER TYRON ONOFRE M.D. Normal [facility] Comment on above: Performed By: #### T SH3, A1C WTH eA, ALT, BMP, AST, LIPID, T4F #### [address] Chirag 08-12-2024 L ----- Specimen: [id number] Received: 08/16/24 Status: ADRIA Oliveira Num: [id number] Spec Type: Surgical Subm Dr: Leon Castro DO Tissues: A Sinus Contents/Biopsy (BILATERAL SINUS CONTENT) Procedures: Brandi RACHEL/Cherry L4 Age/ Patient Sex Location Account Attending Physician Clarence Flores/Marcela [id number] Leon Castro,DO SPEC NUM: [id number] RECD: 08/16/24 STATUS: ADRIA OLIVEIRA NUM: [id number] JOANN: 08/12/[address] [facility] DR: Leon Castro DO ENTERED: 08/16/24 [facility] DR: Brendan [facility] [facility] SPEC TYPE: Surgical DEPT: S ENTERED BY: [id number] RECV BY: [id number] ORDERED: HE, Gross/Micro L4 ORDERED: HE, Gross/Micro L4 Pathological Diagnosis Bilateral sinus content, septoplasty: - Fragments of benign sinonasal mucosa and cartilage with chronic sinusitis. Clinical Information Chronic sinusitis Gross Description Received in formalin labeled with the patients name, date of , and Bilateral sinus contents is a suction bag with cote-pink to red-brown, friable to crisp tissue chips, 5.5 x 2.5 x 0.3 cm in aggregate. The specimen is filtered and agency sales representative sections are submitted in a single cassette. (1, , [id number])J Microscopic Description Microscopic examination is performed. CPT Codes 98770 Specimen: [id number] Received: 08/16/24 Status: ADRIA Oliveira Num: [id number] Spec Type: Surgical Subm Dr: Leon Castro DO Tissues: A Sinus Contents/Biopsy (BILATERAL SINUS CONTENT) Procedures: HE, Gross/Micro L4 Patient: Clarence Flores [id number] (Continued) Signed (signature on file) Rodrick Cardoza MD 08/17/24 1346 Normal [facility] ECG 12 lead ECGon 08-02-2024 ECG 12 lead ECG [facility] [place] [address] Electrocardiograph Report Signed Patient: Clarence Flores MR#: [id number] : 1960 Acct:[id number] Age/Sex: 63 / M ADM Date: 08/02/24 Loc: Room: Type: [facility] Attending Dr: Leon Castro DO Ordering Provider: Leon Castro DO Date of Service: 08/02/24 ECG/ECG 12 [...] QRS Borderline ECG Confirmed by Lalita Capellan ([id number]) on 08/02/2024 8:21:23 PM Referred By: Electronically Signed By: Lalita Capellan Transcribed By: MUS Signed By Lalita Capellan MD 2020 Normal [facility] A1C with Estimated Average G fox 05-28-2024 Glucose [Mass/Vol] 111 mg/dL Normal [facility] Comment on above: Result Comment: PERF ORMED BY: [place] [address] PATHOLOGIST WEB MANAGER SOLIS ROMANO M.D. Performed By: #### T SH3, A1C WTH eA, ALT, BMP, AST, LIPID, T4F #### [facility] [address] [place] [address] Alanine aminotransferase [En zymatic activity/volume] in Serum or PlasmaOrdered By: Alistair Morelos on 05-28-2024 ALT [Catalytic activity/Vol] Alanine aminotransferase [Enzymatic activity/volume] in Serum or Plasma [facility] ALT [Catalytic activity/Vol] 40 U/L Normal [facility] Comment on above: Performed By: #### T SH3, A1C WTH eA, ALT, BMP, AST, LIPID, T4F #### [facility] [address] [place] [address] Aspartate aminotransferase [ Enzymatic activity/volume] in Serum or PlasmaOrdered By: Alistair Morelos on 05-28-2024 AST [Catalytic activity/Vol] Aspartate aminotransferase [Enzymatic activity/volume] in Serum or Plasma [facility] AST [Catalytic activity/Vol] 33 U/L Normal [facility] Comment on above: Performed By: #### T SH3, A1C WTH eA, ALT, BMP, AST, LIPID, T4F #### [facility] [address] [place], [place] [id number] [facility] Basic Metabolic Panel05-11 Estimated GFR 59.207 mL/Min Normal [facility] Comment on above: Performed By: #### T SH3, A1C WTH eA, ALT, BMP, AST, LIPID, T4F #### [facility] [address] Blood estimated average gluc ose determination by estimation from glycated hemoglobinOrdered By: Alistair Morelos on 05-28-2024 Average glucose Estimated from glycated hemoglobin (Bld) [Mass/Vol] Glucose mean value [Mass/volume] in Blood Estimated from glycated hemoglobin [facility] Average glucose Estimated from glycated hemoglobin (Bld) [Mass/Vol] 111 mg/dL [facility] Calcium [Mass/volume] in Ser um or PlasmaOrdered By: Alistair Morelos on 05-28-2024 Calcium [Mass/Vol] Calcium [Mass/volume ] in Serum or Plasma 8.6-10.3 [facility] Calcium [Mass/Vol] 9.4 mg/dL Normal 8.6-10.3 [facility] Comment on above: Performed By: #### T SH3, A1C WTH eA, ALT, BMP, AST, LIPID, T4F #### [facility] [address] Carbon dioxide, total [Moles /volume] in Serum or PlasmaOrdered By: Alistair Morelos on 05-28-2024 CO2 [Moles/Vol] Carbon dioxide, tota l [Moles/volume] in Serum or Plasma 21.0-31.0 [facility] CO2 [Moles/Vol] 26.8 mmol/L Normal 21.0-31.0 [facility] Comment on above: Performed By: #### T SH3, A1C WTH eA, ALT, BMP, AST, LIPID, T4F #### [facility] [address] [place] [address] [place] Chloride [Moles/volume] in S luke or PlasmaOrdered By: Alistair Morelos on 05-28-2024 Chloride [Moles/Vol] Chloride [Moles/vol ume] in Serum or Plasma High 98-107 [facility] Chloride [Moles/Vol] 108 mmol/L High 98-107 [facility] Comment on above: Performed By: #### T SH3, A1C WTH eA, ALT, BMP, AST, LIPID, T4F #### [facility] [address] [place] [address] [place] Cholesterol [Mass/volume] in Serum or PlasmaOrdered By: Alistair Morelos on 05-28-2024 Cholesterol [Mass/Vol] Cholesterol [Mass /volume] in Serum or Plasma 140-200 [facility] Comment on above: Chol less than 200 m g/dl low riskChol 201-239 mg/dl borderline riskChol 240 mg/dl and greater high risk Cholesterol [Mass/Vol] 156 mg/dL Normal 140-200 [facility] Comment on above: Chol less than 200 m g/dl low riskChol 201-239 mg/dl borderline riskChol 240 mg/dl and greater high risk Result Comment: Chol less than 200 mg/dl low risk Chol 201-239 mg/dl borderline risk Chol 240 mg/dl and greater high risk Performed By: #### T SH3, A1C WTH eA, ALT, BMP, AST, LIPID, T4F #### [facility] [address] [place] [id number] [place] Cholesterol in HDL [Mass/vol ume] in Serum or PlasmaOrdered By: Alsitair Morelos on 05-28-2024 Cholesterol in HDL [Mass/Vol] Serum or plasma high density lipoprotein (HDL) cholesterol measurement [facility] Comment on above: HDL CHOL ATP-III CLA SSIFICATION Cardiovascular RiskHDL > or equal to 60 mg/dL LOWHDL < 40 mg/dL HIGH Cholesterol in HDL [Mass/Vol] 34 mg/dL Normal [address] Comment on above: HDL CHOL ATP-III CLA SSIFICATION Cardiovascular RiskHDL > or equal to 60 mg/dL LOWHDL < 40 mg/dL HIGH Result Comment: HDL CHOL ATP-III CLASSIFICATION Cardiovascular Risk HDL > or equal to 60 mg/dL LOW HDL < 40 mg/dL HIGH Performed By: #### T SH3, A1C WTH eA, ALT, BMP, AST, LIPID, T4F #### [facility] [address] [place] [id number] [place] Cholesterol in LDL Calc [Mas s/Vol]Ordered By: Alistair Morelos on 05-28-2024 Cholesterol in LDL [Mass/Vol] Cholesterol in LDL [Mass/volume] in Serum or Plasma by calculation High 0-100 [facility] Comment on above: LDL ATP III CLASSIFI CATIONLDL less than 100 mg/dL OptimalLDL 100-129 mg/dL Near or above optimalLDL 130-159 mg/dL Borderline highLDL 160-189 mg/dL HighLDL greater than 189 mg/dL Very high Cholesterol in LDL [Mass/Vol] 102 mg/dL High 0-100 [facility] Comment on above: LDL ATP III CLASSIFI CATIONLDL less than 100 mg/dL OptimalLDL 100-129 mg/dL Near or above optimalLDL 130-159 mg/dL Borderline highLDL 160-189 mg/dL HighLDL greater than 189 mg/dL Very high Cholesterol in VLDL Calc [Ma ss/Vol]Ordered By: Alistair Morelos on 05-28-2024 Cholesterol in VLDL [Mass/Vol] Cholesterol in VLDL [Mass/volume] in Serum or Plasma by calculation [facility] Cholesterol in VLDL [Mass/Vol] 19 mg/dL [facility] Creatinine [Mass/volume] in Serum or PlasmaOrdered By: Alistair Morelos on 05-28-2024 Creatinine [Mass/Vol] Creatinine [Mass/v olume] in Serum or Plasma High 0.70-1.30 [facility] Creatinine [Mass/Vol] 1.36 mg/dL High 0.70-1.30 [facility] Comment on above: Performed By: #### T SH3, A1C WTH eA, ALT, BMP, AST, LIPID, T4F #### [facility] [address] Glucose [Mass/volume] in Ser um or PlasmaOrdered By: Alistair Morelos on 05-28-2024 Glucose [Mass/Vol] Glucose [Mass/volume ] in Serum or Plasma 70-100 [facility] Comment on above: ADA recommended refe rence rangeRandom Glucose Reference Range is dependent on time and content of last meal. Glucose of more than 200 mg/dL in a nonstressed, ambulatory subject supports the diagnosis of Diabetes Mellitus. Glucose [Mass/Vol] 89 mg/dL Normal 70-100 [facility] Comment on above: ADA recommended refe rence rangeRandom Glucose Reference Range is dependent on time and content of last meal. Glucose of more than 200 mg/dL in a nonstressed, ambulatory subject supports the diagnosis of Diabetes Mellitus. Result Comment: [facility] Glucose Reference Range is dependent on time and content of last meal. Glucose of more than 200 mg/dL in a nonstressed, ambulatory subject supports the diagnosis of Diabetes Mellitus. ADA recommended reference range Performed By: #### T SH3, A1C WTH eA, ALT, BMP, AST, LIPID, T4F #### [facility] [address] [place] [id number] [facility] Hemoglobin A1c/Hemoglobin.to jose in BloodOrdered By: Alistair Morelos on 05-28-2024 HbA1c (Bld) [Mass fraction] Hemoglobin A1c percentage 4.3-5.6 [facility] Comment on above: Increased risk for d iabetes: 5.7 - 6.4diabetes: >6.4glycemic control for adults with diabetes: <7.0 HbA1c (Bld) [Mass fraction] 5.5 % Normal 4.3-5.6 [facility] Comment on above: Increased risk for d iabetes: 5.7 - 6.4diabetes: >6.4glycemic control for adults with diabetes: <7.0 Result Comment: Incr eased risk for diabetes: 5.7 - 6.4 diabetes: >6.4 glycemic control for adults with diabetes: <7.0 Performed By: #### T SH3, A1C WTH eA, ALT, BMP, AST, LIPID, T4F #### [facility] [address] [place] [id number] [facility] Lipid Panelon 05-28-2024 LDL Cholesterol,Calculated 102 mg/dL High 0-100 [facility] Comment on above: Result Comment: LDL ATP III CLASSIFICATION LDL less than 100 mg/dL Optimal LDL 100-129 mg/dL Near or above optimal LDL 130-159 mg/dL Borderline high LDL 160-189 mg/dL High LDL greater than 189 mg/dL Very high Performed By: #### T SH3, A1C WTH eA, ALT, BMP, AST, LIPID, T4F #### [facility] [address] [place] [id number] [facility] Triglyceride w/Reflex 99 mg/dL Normal 0-149 [facility] Comment on above: Result Comment: TRIG ATP III CLASSIFICATION TRIG less than 150 mg/dL Normal TRIG 150-199 mg/dL Borderline high TRIG 200-500 mg/dL High TRIG greater than 500 mg/dL Very high Standard traceable to the Center for Disease Conrtrol and Prevention (CDC) test method. Performed By: #### T SH3, A1C WTH eA, ALT, BMP, AST, LIPID, T4F #### [facility] [address] VLDL CHOLESTEROL 19 mg/dL Normal [facility] Comment on above: Performed By: #### T SH3, A1C WTH eA, ALT, BMP, AST, LIPID, T4F #### [facility] [address] No Panel InformationOrdered By: Alistair Morelos on 05-28-2024 Estimated GFR (CKD-EPI) 59.207 mL/Min [facility] Creatinine Clearance (Chem N/A [facility] Potassium [Moles/volume] in Serum or PlasmaOrdered By: Alistair Morelos on 05-28-2024 Potassium [Moles/Vol] Potassium [Moles/v olume] in Serum or Plasma 3.5-5.1 [facility] Potassium [Moles/Vol] 4.5 mmol/L Normal 3.5-5.1 [facility] Comment on above: Performed By: #### T SH3, A1C WTH eA, ALT, BMP, AST, LIPID, T4F #### [facility] [address] Serum or plasma anion gap de terminationOrdered By: Alistair Morelos on 05-28-2024 Anion gap [Moles/Vol] Serum or plasma an ion gap determination 6.0-15.0 [facility] Anion gap [Moles/Vol] 9.7 mmol/L Normal 6.0-15.0 [facility] Comment on above: Performed By: #### T SH3, A1C WTH eA, ALT, BMP, AST, LIPID, T4F #### [facility] [address] [place] [id number] [facility] Serum or plasma total choles terol/high density lipoprotein (HDL) cholesterol mass ratOrdered By: Alistair Morelos on 05-28-2024 Cholesterol.total/Chol esterol in HDL [Mass ratio] Serum or plasma total cholesterol/high density lipoprotein (HDL) cholesterol mass rat <5.0 [facility] Cholesterol.total/Chol esterol in HDL [Mass ratio] 4.6 {ratio} Normal <5.0 [facility] Comment on above: Performed By: #### T SH3, A1C WTH eA, ALT, BMP, AST, LIPID, T4F #### [facility] [address] [place] [address] [place] Sodium [Moles/volume] in Ser um or PlasmaOrdered By: Alistair Morelos on 05-28-2024 Sodium [Moles/Vol] Sodium [Moles/volume ] in Serum or Plasma 136-145 [facility] Sodium [Moles/Vol] 140 mmol/L Normal 136-145 [facility] Comment on above: Performed By: #### T SH3, A1C WTH eA, ALT, BMP, AST, LIPID, T4F #### [facility] [address] Thyrotropin [Units/volume] i n Serum or PlasmaOrdered By: Alistair Morelos on 05-28-2024 TSH Qn Thyrotropin [Units/volume] in Serum or Plasma 0.45-5.33 [facility] TSH Qn 1.34 m[IU]/L Normal 0.45-5.33 [facility] Comment on above: Result Comment: PERF ORMED BY: [address] [place] [address] PATHOLOGIST WEB MANAGER SOLIS ROMANO M.D. Performed By: #### T SH3, A1C WTH eA, ALT, BMP, AST, LIPID, T4F #### [facility] [address] Thyroxine (T4) free [Mass/vo lume] in Serum or PlasmaOrdered By: Alistair Morelos on 05-28-2024 Free T4 [Mass/Vol] Thyroxine (T4) free [Mass/volume] in Serum or Plasma 0.61-1.12 [facility] Free T4 [Mass/Vol] 0.91 ng/dL Normal 0.61-1.12 [facility] Comment on above: Performed By: #### T SH3, A1C WTH eA, ALT, BMP, AST, LIPID, T4F #### [facility] [address] Triglyceride [Mass/volume] i n Serum or PlasmaOrdered By: Alistair Morelos on 05-28-2024 Triglyceride [Mass/Vol] Triglyceride [Mass/volume] in Serum or Plasma 0-149 [facility] Comment on above: TRIG ATP III CLASSIF ICATIONTRIG less than 150 mg/dL NormalTRIG 150-199 mg/dL Borderline highTRIG 200-500 mg/dL High TRIG greater than 500 mg/dL Very highStandard traceable to the Center for Disease Conrtrol and Prevention (CDC) test method. Triglyceride [Mass/Vol] 99 mg/dL 0-149 [facility] Comment on above: TRIG ATP III CLASSIF ICATIONTRIG less than 150 mg/dL NormalTRIG 150-199 mg/dL Borderline highTRIG 200-500 mg/dL High TRIG greater than 500 mg/dL Very highStandard traceable to the Center for Disease Conrtrol and Prevention (CDC) test method. Urea nitrogen [Mass/volume] in Serum or PlasmaOrdered By: Alistair Morelos on 05-28-2024 Urea nitrogen [Mass/Vol] Urea nitrogen [Mass/volume] in Serum or Plasma 09-03 [facility] Urea nitrogen [Mass/Vol] 22 mg/dL Normal 09-03 [facility] Comment on above: Performed By: #### T SH3, A1C WTH eA, ALT, BMP, AST, LIPID, T4F #### [facility] [address] [place] [id number] [facility] CT MAXILLOFACIAL WO IV CONTR Nell 05-18-2024 CT MAXILLOFACIAL WO IV CONTRAST HISTORY: Sinusitis. TECHNIQUE: Spiral high resolution axial [...] Tuan Choi MD Normal Not Available CT MAXILLOFACIAL WO IV CONTR Nell 03-18-2024 [...] for choosing us for your care. Normal [facility] General Surgery Office/Clini c Noteon 10-01-2023 General [...] Father and Sister. Ovarian cancer: Mother. Normal [facility] Comment on above: Result Comment: Elec tronically Signed By: EVAN SARAH, Tariq Perkins\Date and Time Signed: 10/01/23 20:32 EDT Reminderson 10-01-2023 Reminders Reminders From: Pascale Copeland LPN To: N - Clinical; Sent: 10/01/2023 16:00:51 EDT Show up: 08/16/2033 07:00:00 EDT Subject: colonoscopy recall Due Date/Time: 09/16/2033 07:00:00 EDT Reminder/Recall Patient due for screening colonoscopy 09/16/2033. Normal [facility] Pathology Request for Lab Co rpon 09-17-2023 Pathology Request for Lab Jeison Normal [facility] Comment on above: Order Comment: PATHO LOGY GI SPECIMEN Result Comment: See report. Scanned copy available in EMR. PERFORMED BY: [place] [address] PATHOLOGIST WEB MANAGER ROSCOE CASTRO M.D. Performed By: #### P ATH TO [facility] #### [address] Consent for Procedure/Surger yon 08-06-2023 Consent for Procedure/Surgery [id number] Normal [facility] Consent for Treatmenton 07-12 Consent for Treatment [id number]#[id number] Normal [facility] Main OR Preoperative Recordo n 08-04-2023 Main OR Preoperative Record Holding Area Document Type FT Summary Primary Physician: Tariq GORDON MD Finalized Date/Time: 08/04/23 08:14:07 Pt. Name: RENA CLARENCE Galo/Sex: 1960 Male Med Rec #: [id number] Physician: Tariq GORDON MD Financial #: [id number] Pt. Type: O Room/Bed: / Admit/Disch: 08/04/23 [...] 07:43 Elizabeth Sorto RN 08/04/23 08:14 [facility] Consent for Procedure/Surger yon 07-15-2023 Consent for Procedure/Surgery [id number] [facility] Ambulatory Visit Summaryon 0 07-14-2023 Ambulatory [...] for choosing us for your care. Normal [facility] Physician Referralon 024 Physician Referral [id number] Normal [facility] NM Heart Perfusion W stress [...] Eric Villa 12/17/2022 5:57 PM Dictation workstation: [id number] Interpreted By: Eric Villa, Kimberlyn Teixeira STUDY: MYOCARDIAL PERFUSION STRESS TEST WITH EXERCISE Performing facility: [facility], [address] [place] [address], [address], [address] Provider: Chaim Morelos DO, FACC PCP: Dr. Beach Supervising provider: Andra Ramirez RN, SALESPERSON NECKTIES INDICATION: Chest Pain; HISTORY: Gender: M; Age: 62 y/o ; Height: cm; Weight: kg. Diabetes; Family HX CAD; HTN; SOB; Denies smoking. COMPARISON: No comparison. ACCESSION NUMBER(S): [id number] ORDERING CLINICIAN: MIKE MORELOS TECHNIQUE: TWO DAY [...] PERFUSION STRESS TEST WITH EXERCISE Performing facility: [facility], [address] [place] [address], [address], [address] Provider: Chaim Morelos DO, FACC PCP: Dr. Beach Supervising provider: Andra Ramirez RN, SALESPERSON NECKTIES INDICATION: Chest Pain; HISTORY: Gender: M; Age: 62 y/o ; Height: cm; Weight: kg. Diabetes; Family HX CAD; HTN; SOB; Denies smoking. COMPARISON: No comparison. ACCESSION NUMBER(S): [id number] ORDERING CLINICIAN: MIKE MORELOS TECHNIQUE: TWO DAY [...] Eric Villa 12/17/2022 5:57 PM Dictation workstation: [id number] [facility] Work Phone: NM Heart Perfusion W stress and W radionuclide IVOrdered By: Eric Villa on 12-17-2022 [facility] Work Phone: NM Heart Perfusion W stress and W radionuclide Karen 12-16-2022 Radiology Study observation (narrative) [facility] Work Phone: Activated partial thrombopla stin time (aPTT) in platelet poor plasma by coagulation aOrdered By: Damien Roth on 2022 aPTT Coag (PPP) [Time] 29.0 s 25.1-36.5 [facility] Comment on above: A hematocrit value g reater than 55% may lead to inaccurate results in coagulation testing. Patients having hematocrit values >55% require a special collection tube for coagulation studies. Please contact the laboratory at [phone] for redraw instructions. Basophils Auto (Bld) [#/Vol] Ordered By: Damien Roth on 2022 Basophils (Bld) [#/Vol] 0.1 10*3/uL 0.0-0.2 [facility] Basophils/100 WBC Auto (Bld) Ordered By: Damien Roth on 2022 Basophils/100 WBC (Bld) 1.0 % . [facility] Calcium [Mass/volume] in Ser um or PlasmaOrdered By: Damien Roth on 2022 Calcium [Mass/Vol] 9.0 mg/dL 8.6-10.3 [facility] Carbon dioxide, total [Moles /volume] in Serum or PlasmaOrdered By: Damien Roth on 2022 CO2 [Moles/Vol] 26.2 mmol/L 21.0-31.0 [facility] Chloride [Moles/volume] in S luke or PlasmaOrdered By: Damien Roth on 2022 Chloride [Moles/Vol] 106 mmol/L 98-107 [facility] Creatine kinase [Enzymatic a ctivity/volume] in Serum or PlasmaOrdered By: Damien Roth on 2022 CK [Catalytic activity/Vol] 111 U/L 30-223 [facility] Creatinine [Mass/volume] in Serum or PlasmaOrdered By: Damien Roth on 2022 Creatinine [Mass/Vol] 1.39 mg/dL 0.70-1.30 [facility] Eosinophils Auto (Bld) [#/Vo l]Ordered By: Damien Roth on 2022 Eosinophils (Bld) [#/Vol] 0.3 10*3/uL 0.0-0.45 [facility] Eosinophils/100 WBC Auto (Bl d)Ordered By: Damien Roth on 2022 Eosinophils/100 WBC (Bld) 2.9 % . [facility] Erythrocyte distribution wid th Auto (RBC) [Ratio]Ordered By: Damien Roth on 2022 Erythrocyte distribution width (RBC) [Ratio] 14.8 % 12.0-14.8 [facility] Glucose [Mass/volume] in Ser um or PlasmaOrdered By: Damien Roth on 2022 Glucose [Mass/Vol] 170 mg/dL 70-100 [facility] Comment on above: ADA recommended refe rence rangeRandom Glucose Reference Range is dependent on time and content of last meal. Glucose of more than 200 mg/dL in a nonstressed, ambulatory subject supports the diagnosis of Diabetes Mellitus. Hematocrit Auto (Bld) [Volum e fraction]Ordered By: Damien Roth on 2022 Hematocrit (Bld) [Volume fraction] 43.8 % 38.8-50.0 [facility] Hemoglobin [Mass/volume] in BloodOrdered By: Damien Roth on 2022 Hemoglobin (Bld) [Mass/Vol] 15.0 g/dL 13.0-17.0 [facility] INR in Platelet poor plasma by Coagulation assayOrdered By: Damien Roth on 2022 INR Coag (PPP) [Relative time] 1.0 {INR} [facility] Comment on above: INR Therapeutic Rang [...] in Blood by Automated counOrdered By: Damien Roth on 2022 WBC corrected for nucl RBC Auto (Bld) [#/Vol] 9.2 10*3/uL 4.1-10.5 [facility] Lymphocytes Auto (Bld) [#/Vo l]Ordered By: Damien Roth on 2022 Lymphocytes (Bld) [#/Vol] 1.8 10*3/uL 1.00-4.8 [facility] Lymphocytes/100 WBC Auto (Bl d)Ordered By: Damien Roth on 2022 Lymphocytes/100 WBC (Bld) 19.7 % . [facility] MCH Auto (RBC) [Entitic mass ]Ordered By: Damien Roth on 2022 MCH (RBC) [Entitic mass] 28.8 pg 27.5-35.2 [facility] MCHC Auto (RBC) [Mass/Vol]Or dered By: Damien Roth on 2022 MCHC (RBC) [Mass/Vol] 34.3 g/dL 32.5-35.6 [facility] MCV Auto (RBC) [Entitic vol] Ordered By: Damien Roth on 2022 MCV (RBC) [Entitic vol] 84.1 fL 83.5-101 [facility] Monocyte distribution width [Entitic volume] in Blood by AutomatedOrdered By: Damien Roth on 2022 Monocyte distribution width Auto (Bld) [Entitic vol] 20.13 % 0.00-20.00 [facility] Comment on above: For adults in ED, MD W > 20.0 may be associated with a higher risk of sepsis during the first 12 hrs of hospital admission Monocytes Auto (Bld) [#/Vol] Ordered By: Damien Roth on 2022 Monocytes (Bld) [#/Vol] 0.8 10*3/uL 0.0-0.8 [facility] Monocytes/100 WBC Auto (Bld) Ordered By: Damien Roth on 2022 Monocytes/100 WBC (Bld) 9.2 % . [facility] Natriuretic peptide B [Mass/ Vol]Ordered By: Damien Roth on 2022 Natriuretic peptide B (Bld) [Mass/Vol] 101.0 pg/mL 5-100 [facility] Neutrophils Auto (Bld) [#/Vo l]Ordered By: Damien Roth on 2022 Neutrophils (Bld) [#/Vol] 6.2 10*3/uL 1.8-7.7 [facility] Neutrophils/100 WBC Auto (Bl d)Ordered By: Damien Roth on 2022 Neutrophils/100 WBC (Bld) 67.2 % . [facility] No Panel InformationOrdered By: Damien Roth on 2022 Estimated GFR (CKD-EPI) 58.037 mL/Min [facility] Creatinine Clearance (Chem 72.10 [facility] Nucleated erythrocytes [Pres ence] in Blood by Automated countOrdered By: Damien Roth on 2022 Nucleated RBC Auto Ql (Bld) 0.1 /100{WBC} 0-0.5 [facility] Platelet mean volume Auto (B ld) [Entitic vol]Ordered By: Damien Roth on 2022 Platelet mean volume (Bld) [Entitic vol] 7.7 fL 6.6-10.1 [facility] Platelets Auto (Bld) [#/Vol] Ordered By: Damien Roth on 2022 Platelets (Bld) [#/Vol] 194 10*3/uL 150-450 [facility] Potassium [Moles/volume] in Serum or PlasmaOrdered By: Damien Roth on 2022 Potassium [Moles/Vol] 3.6 mmol/L 3.5-5.1 [facility] Prothrombin time (PT)Ordered By: Damien Roth on 2022 PT Coag (PPP) [Time] 12.4 s 9.0-12.9 [facility] Comment on above: A hematocrit value g reater than 55% may lead to inaccurate results in coagulation testing. Patients having hematocrit values >55% require a special collection tube for coagulation studies. Please contact the laboratory at [phone] for redraw instructions. RBC Auto (Bld) [#/Vol]Ordere d By: Damien Roth on 2022 RBC (Bld) [#/Vol] 5.21 10*6/uL 3.90-5.60 [facility] Serum or plasma anion gap de terminationOrdered By: Damien Roth on 2022 Anion gap [Moles/Vol] 10.4 mmol/L 6.0-15.0 [facility] Sodium [Moles/volume] in Ser um or PlasmaOrdered By: Damien Roth on 2022 Sodium [Moles/Vol] 139 mmol/L 136-145 [facility] Troponin I.cardiac [Mass/vol ume] in Serum or Plasma by Detection limit <= 0.01 ng/Ordered By: Damien Roth on 2022 Troponin I.cardiac DL <= 0.01 ng/mL [Mass/Vol] 15.8 pg/mL 0.0-20.0 [facility] Urea nitrogen [Mass/volume] in Serum or PlasmaOrdered By: Damien Roth on 2022 Urea nitrogen [Mass/Vol] 14 mg/dL 7-25 [facility] WBC Auto (Bld) [#/Vol]Ordere d By: Damien Roth on 2022 WBC (Bld) [#/Vol] 9.2 10*3/uL 4.1-10.5 [facility] CBC AUTO DIFFon 11-24-2021 BASO # 0.0 103/ul Normal 0.0-0.1 [facility] Comment on above: Performed By: #### C BC #### [facility] [address] [place] [address] Dr. Sunny Ortez Basophils/100 WBC (Bld) 0.5 % Normal 0.2-2.0 [facility] Comment on above: Performed By: #### C BC #### [facility] [address] [place] [address] Dr. Sunny Ortez EO # 0.4 103/ul Normal 0.0-0.7 [facility] Comment on above: Performed By: #### C BC #### [facility] [address] [address] [address] Sunny Ortez Eosinophils/100 WBC (Bld) 4.6 % Normal 0.9-7.0 [facility] Comment on above: Performed By: #### C BC #### [facility] [address] [place] [address] Dr. Sunny Ortez Erythrocyte distribution width (RBC) [Ratio] 14.2 % Normal 11.0-15.0 [facility] Comment on above: Performed By: #### C BC #### [facility] [address] [place] [address] Dr. Sunny Ortez Hematocrit (Bld) [Volume fraction] 45.8 % Normal 42.0-54.0 [facility] Comment on above: Performed By: #### C BC #### [facility] [address] [place] [address] Dr. Sunny Ortez Hemoglobin (Bld) [Mass/Vol] 15.1 g/dL Normal 14.0-18.0 [facility] Comment on above: Performed By: #### C BC #### [facility] [address] [place] [address] Dr. Sunny Ortez IG # 0.02 10e3/ul Normal 0.00-0.03 [facility] Comment on above: Performed By: #### C BC #### [facility] [address] [place] [address] Dr. Sunny Ortez IG % 0.2 % Normal 0.0-0.5 [facility] Comment on above: Performed By: #### C BC #### [facility] [address] [place] [address] Dr. Sunny Ortez LYMPH # 1.7 103/ul Normal 1.2-3.8 [facility] Comment on above: Performed By: #### C BC #### [facility] [address] [place] [address] Dr. Sunny Ortez Lymphocytes/100 WBC (Bld) 20.2 % Critically low 20.5-60.0 [facility] Comment on above: Performed By: #### C BC #### [facility] [address] [place] [address] Dr. Sunny Ortez MANUAL DIFF REQ NO Normal [facility] Comment on above: Performed By: #### C BC #### [facility] [address] [place] [address] Dr. Sunny Ortez MCH (RBC) [Entitic mass] 27.7 pg Normal 25.9-34.0 [facility] Comment on above: Performed By: #### C BC #### [facility] [address] [address] [address] Sunny Ortez MCHC (RBC) [Mass/Vol] 33.0 g/dL Normal 29.9-35.2 [facility] Comment on above: Performed By: #### C BC #### [facility] [address] [place] [address] Dr. Sunny Ortez MCV (RBC) [Entitic vol] 83.9 fL Normal 80.0-94.0 [facility] Comment on above: Performed By: #### C BC #### [facility] [address] [place] [address] Dr. Sunny Ortez MONO # 0.7 103/ul Normal 0.3-0.8 [facility] Comment on above: Performed By: #### C BC #### [facility] [address] [place] [address] Dr. Sunny Ortez Monocytes/100 WBC (Bld) 8.0 % Normal 1.7-12.0 [facility] Comment on above: Performed By: #### C BC #### [facility] [address] [place] [address] Dr. Sunny Ortez NEUT # 5.6 103/ul Normal 1.4-6.5 [facility] Comment on above: Performed By: #### C BC #### [facility] [address] [place] [address] Dr. Sunny Ortez Neutrophils/100 WBC (Bld) 66.5 % Normal 43.0-75.0 [facility] Comment on above: Performed By: #### C BC #### [facility] [address] [place] [address] Dr. Sunny Ortez Platelet mean volume (Bld) [Entitic vol] 9.1 fL Critically low 9.5-13.5 [facility] Comment on above: Performed By: #### C BC #### [facility] [address] [place] [address] Dr. Sunny Ortez PLT 215 103/ul Normal 150-450 [facility] Comment on above: Performed By: #### C BC #### [facility] [address] [place] [address] Dr. Sunny Ortez RBC 5.46 106/ul Normal 4.70-6.10 [facility] Comment on above: Performed By: #### C BC #### [facility] [address] [address] [address] Sunny Ortez WBC 8.4 103/ul Normal 4.0-11.0 [facility] Comment on above: Performed By: #### C BC #### [facility] [address] [address] [address] Sunny Ortez GLYCOHEMOGLOBIN A1Con 2021 ADA RECOMMENDATION SEE BELOW Normal [facility] Comment on above: Result Comment: ADA RECOMMENDED LIMIT 4.0 - 6.0 ADA THERAPEUTIC TARGET < 7.0 ACTION SUGGESTED > 7.0 Performed By: #### A 1C #### [facility] [address] [place] [address] Dr. Sunny Ortez Glucose [Mass/Vol] 117 mg/dL Normal [facility] Comment on above: Performed By: #### A 1C #### [facility] [address] [address] [address] Sunny Ortez HbA1c (Bld) [Mass fraction] 5.7 % Normal 4.5-6.2 [facility] Comment on above: Performed By: #### A 1C #### [facility] [address] [place] [address] Dr. Sunny Ortez PROF 14(COMP METB)on 022 Albumin [Mass/Vol] 3.7 g/dL Normal 3.4-5.0 [facility] Comment on above: Performed By: #### C MP #### [facility] [address] [place] [address] Dr. Sunny Ortez Albumin/Globulin [Mass ratio] 1.0 {ratio} Normal [facility] Comment on above: Performed By: #### C MP #### [facility] [address] [address] [address] Sunny Ortez ALP [Catalytic activity/Vol] 61 U/L Normal 46-116 [facility] Comment on above: Performed By: #### C MP #### [facility] [address] [address] [address] Sunny Ortez ALT [Catalytic activity/Vol] 42 U/L Normal 16-63 [facility] Comment on above: Performed By: #### C MP #### [facility] [address] [address] [address] Sunny Ortez Anion gap [Moles/Vol] 8.1 mmol/L Normal [facility] Comment on above: Performed By: #### C MP #### [facility] [address] [address] [address] Sunny Ortez AST [Catalytic activity/Vol] 28 U/L Normal 15-37 [facility] Comment on above: Performed By: #### C MP #### [facility] [address] [place] [address] Dr. Sunny Ortez Bilirubin [Mass/Vol] 0.5 mg/dL Normal 0.2-1.0 [facility] Comment on above: Performed By: #### C MP #### [facility] [address] [place] [address] Dr. Sunny Ortez Calcium [Mass/Vol] 8.7 mg/dL Normal 8.5-10.1 [facility] Comment on above: Performed By: #### C MP #### [facility] [address] [place] [address] Dr. Sunny Ortez Chloride [Moles/Vol] 107 mmol/L Normal 98-107 [facility] Comment on above: Performed By: #### C MP #### [facility] [address] [place] [address] Dr. Sunny Ortez CO2 [Moles/Vol] 30.0 mmol/L Normal 21.0-32.0 [facility] Comment on above: Performed By: #### C MP #### [facility] [address] [address] [address] Sunny Ortez Creatinine [Mass/Vol] 1.29 mg/dL Normal 0.70-1.30 [facility] Comment on above: Performed By: #### C MP #### [facility] [address] [address] [address] Sunny Ortez EGFR-AF [place] >60 Normal >=60 [facility] Comment on above: Performed By: #### C MP #### [facility] [address] [address] [address] Sunny Ortez EGFR-NON AF [place] 57 mL/min/1.73m2 Critically low >=60 [facility] Comment on above: Performed By: #### C MP #### [facility] [address] [address] [address] Sunny Ortez Globulin (S) [Mass/Vol] 3.7 g/dL Normal [facility] Comment on above: Performed By: #### C MP #### [facility] [address] [address] [address] Sunny Ortez Glucose [Mass/Vol] 108 mg/dL Critically high 74-106 [facility] Comment on above: Performed By: #### C MP #### [facility] [address] [address] [address] Sunny Ortez Potassium [Moles/Vol] 4.1 mmol/L Normal 3.5-5.1 [facility] Comment on above: Performed By: #### C MP #### [facility] [address] [address] [address] Sunny Ortez Protein [Mass/Vol] 7.4 g/dL Normal 6.4-8.2 [facility] Comment on above: Performed By: #### C MP #### [facility] [address] [address] [address] Sunny Ortez Sodium [Moles/Vol] 141 mmol/L Normal 136-145 [facility] Comment on above: Performed By: #### C MP #### [facility] [address] [address] [address] Sunny Ortez Urea nitrogen [Mass/Vol] 16.0 mg/dL Normal 7.0-18.0 [facility] Comment on above: Performed By: #### C MP #### [facility] [address] [address] [address] Sunny Ortez Urea nitrogen/Creatinine [Mass ratio] 12.4 mg/mg Normal [facility] Comment on above: Performed By: #### C MP #### [facility] [address] [place] [address] [address] [address] Sunny Ortez OCC BLD IMMUNO SCREENon 10-12 OCCULT BLOOD Negative Normal NEGATIVE [facility] Comment on above: Performed By: #### O BSCRN #### [facility] [address] [place] [address] Dr. Sunny Ortez Covid-19 PCR ([facility])on 10-12 SARS-CoV-2 (COVID-19) RNA RENÉE+probe Ql (Unsp spec) Not detected Normal NOT DETECTED [facility] Comment on above: Result Comment: When [...] for this test is supported by the Supervisor [employer] of Health and Human Service's declaration that [...] By: #### C MP #### [facility] [address] [place] [address] [address] [address] Sunny Ortez MRI ABDOMEN W CONon [...] Date: 2021-05-06 07:49 Normal [facility] CREATININEon 05-04-2021 Creatinine [Mass/Vol] 1.37 mg/dL Critically high 0.66-1.25 [facility] Comment on above: Performed By: #### C ALISHA #### [facility] [address] [address] [address] Sunny Ortez EGFR-AF [place] >60 Normal >=60 [facility] Comment on above: Performed By: #### C ALISHA #### [facility] [address] [address] [address] Sunny Ortez EGFR-NON AF [place] 53 mL/min/1.73m2 Critically low >=60 [facility] Comment on above: Performed By: #### C ALISHA #### [facility] [address] [address] [address] Sunny Ortez CREATININEon 04-12-2021 Creatinine [Mass/Vol] 1.28 mg/dL Critically high 0.66-1.25 [facility] Comment on above: Performed By: #### C ALISHA #### [facility] [address] [address] [address] Sunny Ortez EGFR-AF [place] >60 Normal >=60 [facility] Comment on above: Performed By: #### C ALISHA #### [facility] [address] [address] [address] Sunny Ortez EGFR-NON AF [place] 58 mL/min/1.73m2 Critically low >=60 [facility] Comment on above: Performed By: #### C ALISHA #### [facility] [address] [address] [address] Sunny Ortez MRI ABDOMEN WO CONon [...] by: STEVE COLLADO Date: 2021-04-12 14:39 Normal [facility] CT ABD/PELV W CONon 03-28-19 22 [...] changes. Consider cystitis Normal [facility] INSULINon 03-26-2021 Insulin 30.7 uIU/mL Critically high 2.6-24.9 [facility] Comment on above: Performed By: #### I NSULIN #### [facility] [address] [address] [address] Sunny Ortez XR KNEE LT 4V [...] Date: 2021-03-25 17:14 Normal [facility] BNPon 03-24-2021 Natriuretic peptide B (Bld) [Mass/Vol] 202.0 pg/mL Normal <=900.0 [facility] Comment on above: Performed By: #### C MP #### [facility] [address] [address] [address] Sunny Ortez CBC AUTO DIFFon 03-24-2021 BASO # 0.1 103/ul Normal 0.0-0.1 [facility] Comment on above: Performed By: #### C BC #### [facility] [address] [place] [address] Dr. Sunny Ortez Basophils/100 WBC (Bld) 0.8 % Normal 0.2-2.0 [facility] Comment on above: Performed By: #### C BC #### [facility] [address] [place] [address] Dr. Sunny Ortez EO # 0.5 103/ul Normal 0.0-0.7 [facility] Comment on above: Performed By: #### C BC #### [facility] [address] [place] [address] Dr. Sunny Ortez Eosinophils/100 WBC (Bld) 4.6 % Normal 0.9-7.0 [facility] Comment on above: Performed By: #### C BC #### [facility] [address] [place] [address] Dr. Sunny Ortez Erythrocyte distribution width (RBC) [Ratio] 13.6 % Normal 11.0-15.0 [facility] Comment on above: Performed By: #### C BC #### [facility] [address] [place] [address] Dr. Sunny Ortez Hematocrit (Bld) [Volume fraction] 45.6 % Normal 42.0-54.0 [facility] Comment on above: Performed By: #### C BC #### [facility] [address] [place] [address] Dr. Sunny Ortez Hemoglobin (Bld) [Mass/Vol] 15.2 g/dL Normal 14.0-18.0 [facility] Comment on above: Performed By: #### C BC #### [facility] [address] [place] [address] Dr. Sunny Ortez IG # 0.04 10e3/ul Critically high 0.00-0.03 [facility] Comment on above: Performed By: #### C BC #### [facility] [address] [place] [address] Dr. Sunny Ortez IG % 0.4 % Normal 0.0-0.5 [facility] Comment on above: Performed By: #### C BC #### [facility] [address] [place] [address] Dr. Sunny Ortez LYMPH # 1.9 103/ul Normal 1.2-3.8 [facility] Comment on above: Performed By: #### C BC #### [facility] [address] [place] [address] Dr. Sunny Ortez Lymphocytes/100 WBC (Bld) 18.4 % Critically low 20.5-60.0 [facility] Comment on above: Performed By: #### C BC #### [facility] [address] [place] [address] Dr. Sunny Ortez MANUAL DIFF REQ NO Normal [facility] Comment on above: Performed By: #### C BC #### [facility] [address] [place] [address] Dr. Sunny Ortez MCH (RBC) [Entitic mass] 27.9 pg Normal 25.9-34.0 [facility] Comment on above: Performed By: #### C BC #### [facility] [address] [place] [address] Dr. Sunny Ortez MCHC (RBC) [Mass/Vol] 33.3 g/dL Normal 29.9-35.2 [facility] Comment on above: Performed By: #### C BC #### [facility] [address] [place] [address] Dr. Sunny Ortez MCV (RBC) [Entitic vol] 83.7 fL Normal 80.0-94.0 [facility] Comment on above: Performed By: #### C BC #### [facility] [address] [place] [address] Dr. Sunny Ortez MONO # 0.8 103/ul Normal 0.3-0.8 [facility] Comment on above: Performed By: #### C BC #### [facility] [address] [place] [address] Dr. Sunny Ortez Monocytes/100 WBC (Bld) 8.0 % Normal 1.7-12.0 [facility] Comment on above: Performed By: #### C BC #### [facility] [address] [place] [address] Dr. Sunny Ortez NEUT # 7.0 103/ul Critically high 1.4-6.5 [facility] Comment on above: Performed By: #### C BC #### [facility] [address] [place] [address] Dr. Sunny Ortez Neutrophils/100 WBC (Bld) 67.8 % Normal 43.0-75.0 [facility] Comment on above: Performed By: #### C BC #### [facility] [address] [place] [address] Dr. Sunny Ortez Platelet mean volume (Bld) [Entitic vol] 9.5 fL Normal 9.5-13.5 [facility] Comment on above: Performed By: #### C BC #### [facility] [address] [place] [address] Dr. Sunny Ortez PLT 322 103/ul Normal 150-450 [facility] Comment on above: Performed By: #### C BC #### [facility] [address] [place] [address] Dr. Sunny Ortez RBC 5.45 106/ul Normal 4.70-6.10 [facility] Comment on above: Performed By: #### C BC #### [facility] [address] [place] [address] Dr. Sunny Ortez WBC 10.4 103/ul Normal 4.0-11.0 [facility] Comment on above: Performed By: #### C BC #### [facility] [address] [place] [address] Dr. Sunny Ortez FREE THYROXINE INDEX T7on FTI 3.01 Normal [facility] Comment on above: Performed By: #### C MP #### [facility] [address] [place] [address] Dr. Sunny Ortez T3U 35.0 % Normal 23.5-40.5 [facility] Comment on above: Performed By: #### C MP #### [facility] [address] [address] [address] Sunny Ortez T4 [Mass/Vol] 8.60 ug/dL Normal 5.53-11.00 [facility] Comment on above: Performed By: #### C MP #### [facility] [address] [address] [address] Sunny Ortez GLYCOHEMOGLOBIN A1Con 2021 ADA RECOMMENDATION ADA THERAPEUTIC TARG ET 6.0 - 7.0 ACTION SUGGESTED > 7.0 Normal [facility] Comment on above: Performed By: #### A 1C #### [facility] [address] [address] [address] Sunny Ortez Glucose [Mass/Vol] 197 mg/dL Normal [facility] Comment on above: Performed By: #### A 1C #### [facility] [address] [place] [address] Dr. Sunny Ortez HbA1c (Bld) [Mass fraction] 8.5 % Critically high <=6.0 [facility] Comment on above: Performed By: #### A 1C #### [facility] [address] [place] [address] Dr. Sunny Ortez LIPID PROFILEon 03-24-2021 CHOL-HDL RATIO NORM SEE BELOW Normal [facility] Comment on above: Result Comment: 3.3 - 4.4 LOW RISK 4.4 - 7.1 AVERAGE RISK 7.1 - 11.0 MODERATE RISK >11.0 HIGH RISK Performed By: #### C MP #### [facility] [address] [place] [address] Dr. Sunny Ortez Cholesterol [Mass/Vol] 150 mg/dL Normal <=200 [facility] Comment on above: Performed By: #### C MP #### [facility] [address] [place] [address] Dr. Sunny Ortez Cholesterol in HDL [Mass/Vol] 30 mg/dL Normal [facility] Comment on above: Performed By: #### C MP #### [facility] [address] [address] [address] Sunny Ortez Cholesterol in LDL [Mass/Vol] 96.8 mg/dL Normal [facility] Comment on above: Performed By: #### C MP #### [facility] [address] [address] [address] Sunny Ortez Cholesterol.total/Chol esterol in HDL [Mass ratio] 5.0 {ratio} Normal [facility] Comment on above: Performed By: #### C MP #### [facility] [address] [address] [address] Sunny Ortez HDL NORMAL > or = 60 mg/dl - LO W CARDIOVASCULAR RISK <40 mg/dl - HIGH CARDIOVASCULAR RISK Normal [facility] Comment on above: Performed By: #### C MP #### [facility] [address] [place] [address] Dr. Sunny Ortez LDL CALC NORMAL SEE BELOW Normal [facility] Comment on above: Result Comment: <100 mg/dl OPTIMAL 100 - 129 mg/dl NEAR OR ABOVE OPTIMAL 130 - 159 mg/dl BORDERLINE HIGH 160 - 189 mg/dl HIGH >190 mg/dl VERY HIGH Performed By: #### C MP #### [facility] [address] [address] [address] Sunny Ortez Triglyceride [Mass/Vol] 116 mg/dL Normal <=150 [facility] Comment on above: Performed By: #### C MP #### [facility] [address] [place] [address] Dr. Sunny Ortez VLDL CALC 23.2 mg/dL Normal [facility] Comment on above: Performed By: #### C MP #### [facility] [address] [place] [address] Dr. Sunny Ortez PROF 14(COMP METB)on 022 Albumin [Mass/Vol] 3.5 g/dL Normal 3.5-5.0 [facility] Comment on above: Performed By: #### C MP #### [facility] [address] [place] [address] Dr. Sunny Ortez Albumin/Globulin [Mass ratio] 1.0 {ratio} Normal [facility] Comment on above: Performed By: #### C MP #### [facility] [address] [address] [address] Sunny Ortez ALP [Catalytic activity/Vol] 73 U/L Normal 38-126 [facility] Comment on above: Performed By: #### C MP #### [facility] [address] [place] [address] Dr. Sunny Ortez ALT [Catalytic activity/Vol] 28 U/L Normal 21-72 [facility] Comment on above: Performed By: #### C MP #### [facility] [address] [address] [address] Sunny Ortez Anion gap [Moles/Vol] 14.7 mmol/L Normal Th [facility] Comment on above: Performed By: #### C MP #### [facility] [address] [place] [address] Dr. Sunny Ortez AST [Catalytic activity/Vol] 13 U/L Critically low 17-59 [facility] Comment on above: Performed By: #### C MP #### [facility] [address] [place] [address] Dr. Sunny Ortez Bilirubin [Mass/Vol] 0.7 mg/dL Normal 0.2-1.3 [facility] Comment on above: Performed By: #### C MP #### [facility] [address] [place] [address] Dr. Sunny Ortez Calcium [Mass/Vol] 8.6 mg/dL Normal 8.4-10.2 [facility] Comment on above: Performed By: #### C MP #### [facility] [address] [place] [address] Dr. Sunny Ortez Chloride [Moles/Vol] 105 mmol/L Normal 98-107 [facility] Comment on above: Performed By: #### C MP #### [facility] [address] [place] [address] Dr. Sunny Ortez CO2 [Moles/Vol] 23.6 mmol/L Normal 22.0-30.0 [facility] Comment on above: Performed By: #### C MP #### [facility] [address] [place] [address] Dr. Sunny Ortez Creatinine [Mass/Vol] 1.33 mg/dL Critically high 0.66-1.25 [facility] Comment on above: Performed By: #### C MP #### [facility] [address] [address] [address] Sunny Ortez EGFR-AF [place] >60 Normal >=60 [facility] Comment on above: Performed By: #### C MP #### [facility] [address] [address] [address] Sunny Ortez EGFR-NON AF [place] 55 mL/min/1.73m2 Critically low >=60 [facility] Comment on above: Performed By: #### C MP #### [facility] [address] [place] [address] Dr. Sunny Ortez Globulin (S) [Mass/Vol] 3.6 g/dL Normal [facility] Comment on above: Performed By: #### C MP #### [facility] [address] [place] [address] Dr. Sunny Ortez Glucose [Mass/Vol] 253 mg/dL Critically high 74-106 [facility] Comment on above: Performed By: #### C MP #### [facility] [address] [place] [address] Dr. Sunny Ortez Potassium [Moles/Vol] 4.3 mmol/L Normal 3.4-5.0 [facility] Comment on above: Performed By: #### C MP #### [facility] [address] [place] [address] Dr. Sunny Ortez Protein [Mass/Vol] 7.1 g/dL Normal 6.1-8.2 [facility] Comment on above: Performed By: #### C MP #### [facility] [address] [address] [address] Sunny Ortez Sodium [Moles/Vol] 139 mmol/L Normal 137-145 [facility] Comment on above: Performed By: #### C MP #### [facility] [address] [place] [address] Dr. Sunny Ortez Urea nitrogen [Mass/Vol] 18.0 mg/dL Normal 9.0-20.0 [facility] Comment on above: Performed By: #### C MP #### [facility] [address] [address] [address] Sunny Ortez Urea nitrogen/Creatinine [Mass ratio] 13.5 mg/mg Normal [facility] Comment on above: Performed By: #### C MP #### [facility] [address] [address] [address] Sunny Ortez TSHon 03-24-2021 TSH 1.335 uIU/mL Normal 0.470-4.68 0 [facility] Comment on above: Performed By: #### C MP #### [facility] [address] [address] [address] Sunny Ortez TSH RANGE SEE BELOW Normal [facility] Comment on above: Result Comment: <0.3 4 UIU/ml HYPERTHYROID 0.34-5.60 UIU/ml EUTHYROID >5.60 UIU/ml HYPOTHYROID Performed By: #### C MP #### [facility] [address] [address] [address] Sunny Ortez URIC ACID SERUMon 03-24-2021 Urate [Mass/Vol] 4.9 mg/dL Normal 3.5-8.5 [facility] Comment on above: Performed By: #### C MP #### [facility] [address] [place] [address] Dr. Sunny Ortez Basic Metabolic Panlon 06-20 Anion gap [Moles/Vol] 11 mmol/L Normal 9-18 [facility] Calcium [Mass/Vol] 8.9 mg/dL Normal 8.5-10.2 [facility] Chloride [Moles/Vol] 106 mmol/L High 97-105 [facility] CO2 [Moles/Vol] 22 mmol/L Normal 22-30 [facility] Creatinine [Mass/Vol] 1.28 mg/dL High 0.73-1.22 [facility] eGFR- Amer. >60 Normal [facility] GFR/1.73 sq M predicted among non-blacks MDRD (S/P/Bld) [Vol rate/Area] 58 . Normal [facility] Comment on above: Result Comment: eGFR (Estimated [...] GFR. Glucose [Mass/Vol] 148 mg/dL High 74-99 [facility] Comment on above: Result Comment: The [employer] (ADA) provides guidance for cutoff [...] Standards of Medical Care in Diabetes 2016, [place] [employer]. Diabetes Care. 2016.39(Suppl 1). Potassium [Moles/Vol] 4.5 mmol/L Normal 3.7-5.1 [facility] Sodium [Moles/Vol] 139 mmol/L Normal 136-144 [facility] Urea nitrogen [Mass/Vol] 10 mg/dL Normal 9-24 [facility] CNPNon 06-21-2019 CNPN Telephone (UROLMN) ----- CLARENCE FLORES ([id number]) 1960 Date Time Provider Department 06/21/19 DIANE DILLON PA-C UROALDENN During your visit today, we recorded the following information about you: Diane Dillon PA-C 06/21/2019 2:[address] and CXR with no recurrence or mets. Repeat CT and CXR in 6M. Patient to schedule on his own at [facility] [place] Dillon PA-C Pager [phone] Office [phone] Allergies As of Date: 06/21/2019 Noted Allergy Reaction NITROGLYCERIN 11/26/2018 14 - Other: See Comments Date Reviewed: 02/05/2019 Reviewed by: Diane Dillon - Fully Assessed Reason for Visit: Results [95] Primary Visit Diagnosis:Left renal mass [N28.89] Other Visit Diagnosis:Renal cell carcinoma of left kidney (HCC) [C64.2] Order(s):XR CHEST 2V FRONTAL/LAT [[id number]] Order #: [id number] FUTURE CT ABD/PEL W IVCON [[id number]] Order #: [id number] FUTURE iv contrast (will be provided with [...] by DIANE DILLON PA-C on 06/21/19 Normal [facility] CT ABD/PEL W IVCONon 020 CT ABD/PEL W IVCON * * *Final Report* * * DATE OF EXAM: Jun 21 2019 9:40AM [facility] 0530 - CT ABD/PEL W IVCON [...] any questions regarding this interpretation, please call [phone]. If you are unable to reach us at the number above, please feel free to contact [facility] eRadiology at [phone]. [id number] Normal [facility] PROGRESSon 06-21-2019 PROGRESS HNO ID: [id number] Author: Holly Garcia (Tech) Service: ? Author Type: Hydroelectric Plant Maintainer Type: Progress Notes Filed: 06/21/2019 2:25 PM [...] PM Normal [facility] PROGRESS HNO ID: [id number] Author: Holly Garcia (Tech) Service: ? Author Type: Hydroelectric Plant Maintainer Type: Progress Notes Filed: 06/21/2019 9:51 AM [...] given.. PATIENT DISCHARGED TO: Ambulatory patient, left [facility] area. A Diagnostic radioactive procedure has taken place, with no further precautions necessary other than routine body substance precautions. More information regarding radiation safety can be found using this link: [email or web address] SIGNATURE: Holly Garcia PATIENT NAME: Clarence Flores DATE: June 21, 2019 TIME: 8:39 AM PAGER/CONTACT #: Normal [facility] XR CHEST 2V FRONTAL/LATon XR CHEST 2V [...] any questions regarding this interpretation, please call [phone]. If you are unable to reach us at the number above, please feel free to contact [facility] eRadiology at [phone]. [id number] Normal [facility] CNPNon 06-17-2019 CNPN Telephone (RADTSA) ----- CLARENCE FLORES ([id number]) 1960 M Date Time Provider Department 06/17/19 MAICO ANG (HISTORICAL) RADTSA During your visit today, we recorded the following information about you: Clarisse Alicia 06/17/2019 3:19 PM Signed Clarence Flores [id number] is coming in Tuesday 06/20 for CTs w/IV on; please sign pending ISTAT BMP as our lab's chemistry will be down that day and he will need CRE clearance prior to. Thanks Clarisse Alicia, chief catalyst operator Jose Manuel [facility] Allergies As of Date: 06/17/2019 Noted Allergy Reaction NITROGLYCERIN 11/26/2018 14 - Other: See Comments Date Reviewed: 02/05/2019 Reviewed by: Diane Dillon - Fully Assessed Reason for Visit: Orders [681] Primary Visit Diagnosis:Left renal mass [N28.89] Order(s):ISTAT BMP [SQISTBMP] Order #: [id number] FUTURE Prescriptions as of 06/17/2019 Sig: IV [...] by DIANE DILLON PA-C on 06/17/19 Normal [facility] CNOVon 02-05-2019 CNOV Office Visit (UROLMN ) ----- CLARENCE FLORES ([id number]) 1960 M Date Time Provider Department 02/05/19 10:50 AM DIANE DILLON) UROLMN During your visit today, we recorded the following information about you: Pulse Blood pressure Weight Height 64/minute 179/81 120.5 kg 1.676 m Diane Dillon PA-C 02/05/2019 10:49 AM Signed [facility] PHYSICIAN TURNTABLE ENGINEER CLINIC POST-OPERATIVE PATIENT CC: Patient is here [...] PA-C Electronically signed Referring Provider: MAICO ANG [[id number]] Allergies As of Date: 02/05/2019 Noted Allergy Reaction NITROGLYCERIN 11/26/2018 14 - Other: See Comments Date Reviewed: 02/05/2019 Reviewed by: Diane Dillon - Fully Assessed Visit Diagnosis:Renal cell carcinoma of left kidney (HCC) [C64.2] Order(s):CT ABD/PEL W IVCON [[id number]] Order #: [id number] FUTURE iv contrast (will be provided with [...] 1 EachRfl: 0 XR CHEST 2V FRONTAL/LAT [[id number]] Order #: [id number] FUTURE BASIC METABOLIC PNL [SQBMP] Order #: [id number] FUTURE Prescriptions as of 02/05/2019 Sig: HYDRALAZINE [...] Status:Closed by DIANE DILLON PA-C on 02/05/19 [facility] Flavio 02-05-2019 [facility] Patient Outreach (UR OLMN) ----- CLARENCE FLORES ([id number]) 1960 M Date Time Provider Department 02/05/19 DIANE DILLON) UROLMN During your visit today, we recorded the following information about you: Allergies As of Date: 02/05/2019 Noted Allergy Reaction NITROGLYCERIN 11/26/2018 14 - Other: See Comments Date Reviewed: 02/05/2019 Reviewed by: Diane Dillon - Fully Assessed Visit Diagnosis:Screening for genitourinary condition [Z13.89] Order(s):UA CHEMSTRIP ONLY [SQUA] Order #: [id number]. #:[id number] Prescriptions as of 02/05/2019 Sig: IV CONTRAST [...] Renal neoplasm [D49.519] 12/22/2018 Encounter Status:Closed by onlinetoursUSER on 02/22/19 Normal [facility] PROGRESSon 02-05-2019 PROGRESS HNO ID: [id number] Author: Diane Dillon Service: ? Author Type: Physician City Assessor Type: Progress Notes Filed: 02/05/2019 10:49 AM Note Text: [facility] PHYSICIAN TUR[facility]ABLE [facility] POST-OPERATIVE PATIENT CC: Patient is here [...] signed Normal [facility] Urinalysison 02-05-2019 Bilirubin, Urine Negative Normal [facility] Comment on above: Performed By: #### U A ####[address] [phone] Clarity (U) Clear Normal Clear [facility] Comment on above: Performed By: #### U A ####[address] [phone] Color (U) Yellow Normal Yellow [facility] Comment on above: Performed By: #### U A ####[address] [phone] Comments SEE COMMENT Normal [facility] Comment on above: Result Comment: Micr oscopic not warranted Performed By: #### U A ####[address] [phone] Glucose Ql (U) Negative Normal Negative [facility] Comment on above: Performed By: #### U A ####[address] [phone] Hemoglobin/Blood,Ur Negative Normal Negative [facility] Comment on above: Performed By: #### U A ####[address] [address] [address] [phone] Ketones Ql (U) Negative Normal Negative [facility] Comment on above: Performed By: #### U A ####[address] [address] [address] [phone] Leukest Negative Normal Negative [facility] Comment on above: Performed By: #### U A ####[address] [address] [address] [phone] Nitrite Ql (U) Negative Normal Negative [facility] Comment on above: Performed By: #### U A ####[address] [phone] pH (Bld) 6.5 Normal 4.5-8.0 [facility] Comment on above: Performed By: #### U A ####[address] [phone] Protein (U) [Mass/Vol] Trace Criticall y abnormal Negative [facility] Comment on above: Performed By: #### U A ####[address] [phone] Specific [place], Ur 1.020 Normal 1.005-1 .03 0 [facility] Comment on above: Performed By: #### U A ####[address] [address] [address] [phone] Urine Shin Comment SEE COMMENT Normal [facility] Comment on above: Result Comment: N/A Performed By: #### U A ####[address] [address] [address] [phone] Urobilinogen Qn (U) Normal Normal Normal [facility] Comment on above: Performed By: #### U A ####[address] [address] [address] [phone] Basic Metabolic Panlon 12-25 Anion gap [Moles/Vol] 9 mmol/L Normal 9-18 [facility] Comment on above: Performed By: #### C BCDIF, BMP ####[address] [address] [address], [place] [phone] Calcium [Mass/Vol] 8.3 mg/dL Low 8.5-10.2 [facility] Comment on above: Performed By: #### C BCDIF, BMP ####[address] [address] [address] [phone] Chloride [Moles/Vol] 109 mmol/L High 97-105 [facility] Comment on above: Performed By: #### C BCDIF, BMP ####[address] [address] [address] [phone] CO2 [Moles/Vol] 21 mmol/L Low 22-30 [facility] Comment on above: Performed By: #### C BCDIF, BMP ####[address] [address] [address] [phone] Creatinine [Mass/Vol] 1.24 mg/dL High 0.73-1.22 [facility] Comment on above: Performed By: #### C BCDIF, BMP ####[address] [address] [address] [phone] eGFR- Amer. >60 Normal [facility] Comment on above: Performed By: #### C BCDIF, BMP ####[address] [address] [address] [phone] GFR/1.73 sq M predicted among non-blacks MDRD (S/P/Bld) [Vol rate/Area] mL/min/{1.73_m2} Normal [facility] Comment on above: Result Comment: eGFR (Estimated GFR) Units of measure: mL/min/1.73 meters squared eGFR is derived from the reexpressed MDRD Study equation using the following parameters: serum creatinine, age, gender and race. The creatinine assay has been calibrated to be traceable to IDND. An eGFR <60 mL/min/1.73m2 for >3 months is consistent with chronic kidney disease. Refer to KDOQI guidelines for clinical interpretation. In patients with unstable renal function, e.g. those with acute kidney injury, the eGFR may not accurately reflect actual GFR. Performed By: #### C KAREL, NIRALI ####[facility], [place] [phone] Glucose [Mass/Vol] 117 mg/dL High 74-99 [facility] Comment on above: Result Comment: The [place] Diabetes Association (ADA) provides guidance for cutoff [...] Standards of Medical Care in Diabetes 2016, [place] [employer]. Diabetes Care. 2016.39(Suppl 1). Performed By: #### C NIRALI VINSON ####[facility] [place], [place] [phone] Potassium [Moles/Vol] 3.8 mmol/L Normal 3.7-5.1 [facility] Comment on above: Performed By: #### C KAREL, BMP ####[facility], [place] [phone] Sodium [Moles/Vol] 139 mmol/L Normal 136-144 [facility] Comment on above: Performed By: #### C KAREL, BMP ####[facility], [place] [phone] Urea nitrogen [Mass/Vol] 16 mg/dL Normal 9-24 [facility] Comment on above: Performed By: #### C BCDIF, BMP ####[address] [address] [address] [phone] CBC and Differentialon 12-25 Abs Baso 0.04 k/uL Normal <0.11 [facility] Comment on above: Performed By: #### C BCDIF, BMP ####[address] [address] [address] [phone] Abs Ralls 1.12 k/uL High <0.87 [facility] Comment on above: Performed By: #### C BCDIF, BMP ####[address] [address] [address] [phone] Abs Neut 9.63 k/uL High 1.45-7.50 [facility] Comment on above: Performed By: #### C BCDIF, BMP ####[address] [address] [address] [phone] Absolute nRBC <0.01 Normal <0.01 [facility] Comment on above: Performed By: #### C BCDIF, BMP ####[address] [address] [address] [phone] Basophils/100 WBC (Bld) 0.3 % Normal [facility] Comment on above: Performed By: #### C BCDIF, BMP ####[address] [address] [address] [phone] DTYPE Auto Diff Normal [facility] Comment on above: Performed By: #### C BCDIF, BMP ####[address] [address] [address], [place] [phone] Eosinophils (Bld) [#/Vol] 0.24 10*3/uL Normal <0.46 [facility] Comment on above: Performed By: #### C BCDIF, BMP ####[address] [address] [address], [place] [phone] Eosinophils/100 WBC (Bld) 2.0 % Normal [facility] Comment on above: Performed By: #### C BCDIF, BMP ####[address] [address] [address], [place] [phone] Erythrocyte distribution width (RBC) [Ratio] 13.7 % Normal 11.5-15.0 [facility] Comment on above: Performed By: #### C BCDIF, BMP ####[address] [address] [address], [place] [phone] Hematocrit (Bld) [Volume fraction] 39.9 % Normal 39.0-51.0 [facility] Comment on above: Performed By: #### C BCDIF, BMP ####[address] [place] [address] [address], [place] [phone] Hemoglobin (Bld) [Mass/Vol] 13.3 g/dL Normal 13.0-17.0 [facility] Comment on above: Performed By: #### C BCDIF, BMP ####[address] [address] [address], [place] [phone] Lymphocytes (Bld) [#/Vol] 1.25 10*3/uL Normal 1.00-4.00 [facility] Comment on above: Performed By: #### C BCDIF, BMP ####[address] [place] [address] [address], [place] [phone] Lymphocytes/100 WBC (Bld) 10.2 % Normal [facility] Comment on above: Performed By: #### C BCDIF, BMP ####[address] [address] [address], [place] [phone] MCH (RBC) [Entitic mass] 29.3 pG Normal 26.0-34.0 [facility] Comment on above: Performed By: #### C BCDIF, BMP ####[address] [address] [address], [place] [phone] MCHC (RBC) [Mass/Vol] 33.3 g/dL Normal 30.5-36.0 [facility] Comment on above: Performed By: #### C BCDIF, BMP ####[address] [address] [address], [place] [phone] MCV (RBC) [Entitic vol] 87.9 fL Normal 80.0-100.0 [facility] Comment on above: Performed By: #### C BCDIF, BMP ####[address] [address] [address], [place] [phone] Monocytes/100 WBC (Bld) 9.1 % Normal [facility] Comment on above: Performed By: #### C BCDIF, BMP ####[place] [address] [address], [place] [phone] Neutrophils/100 WBC (Bld) 78.4 % Normal [facility] Comment on above: Performed By: #### C BCDIF, BMP ####[place] [address] [address], [place] [phone] NRBCs 0.0 /100 WBC Normal 0 [facility] Comment on above: Performed By: #### C BCDIF, BMP ####[place] [address] [address], [place] [phone] Platelet mean volume (Bld) [Entitic vol] 9.6 fL Normal 9.0-12.7 [facility] Comment on above: Performed By: #### C BCDIF, BMP ####[place] [address] [address], [place] [phone] Platelets (Bld) [#/Vol] 241 10*3/uL Normal 150-400 [facility] Comment on above: Performed By: #### C BCDIF, BMP ####[place] [address] [address], [place] [phone] RBC (Bld) [#/Vol] 4.54 10*6/uL Normal 4.20-6.00 [facility] Comment on above: Performed By: #### C BCDIF, BMP ####[facility] [address] [place], [place] [phone] WBC (Bld) [#/Vol] 12.28 10*3/uL High 3.70-11.00 [facility] Comment on above: Performed By: #### C BCDIF, BMP ####[facility] [address] [place], [place] [phone] PROGRESSon 12-25-2018 PROGRESS HNO ID: [id number] Author: Clarence Schmidt Service: Urology Author Type: Resident Type: Progress Notes Filed: 12/25/2018 9:45 AM Note Text: [facility] UROLOGY PROGRESS NOTE Name: Clarence Flores Bed: [id number] Date: December 25, 2018 After Hours [facility] Urology Service Pager: [phone] ASSESSMENT AND PLAN Clarence Flores is a [...] Imaging n/a Clarence Schmidt MD Personal Pager: [phone] For weekend or after hours issues [place] [phone] Normal [facility] [facility] PROGRESS HNO ID: [id number] Author: Kate Ruiz) Lion Service: Urology Author [...] PRN - sodium chloride 0.65 % 2 [place] (AYR, OCEAN) 2 [place] EACH NOSTRIL PRN - tamsulosin ER 0.4 [...] to discharge. Signature: Kate Seymour CNP Pager: [phone] Date of service: 12/25/2018 Normal [facility] Basic Metabolic Panlon 12-24 Anion gap [Moles/Vol] 16 mmol/L Normal 9-18 [facility] Comment on above: Performed By: #### C BCDIF, BMP ####[facility], [place] [phone] Calcium [Mass/Vol] 8.7 mg/dL Normal 8.5-10.2 [facility] Comment on above: Performed By: #### C BCDIF, BMP ####[place] [address] [address], [place] [phone] Chloride [Moles/Vol] 104 mmol/L Normal 97-105 [facility] Comment on above: Performed By: #### C BCDIF, BMP ####[place] [address] [place] [phone] CO2 [Moles/Vol] 18 mmol/L Low 22-30 [facility] Comment on above: Performed By: #### C BCDIF, BMP ####[place] [address], [place] [phone] Creatinine [Mass/Vol] 1.26 mg/dL High 0.73-1.22 [facility] Comment on above: Performed By: #### C BCDIF, BMP ####[place] [address] [place] [phone] eGFR- Amer. >60 Normal [facility] Comment on above: Performed By: #### C BCDIF, BMP ####[place] [address], [place] [phone] GFR/1.73 sq M predicted among non-blacks MDRD (S/P/Bld) [Vol rate/Area] 59 . Normal [facility] Comment on above: Result Comment: eGFR (Estimated [...] GFR. Performed By: #### C NIRALI VINSON ####[facility], [place] [phone] Glucose [Mass/Vol] 117 mg/dL High 74-99 [facility] Comment on above: Result Comment: The [place] [employer] (ADA) provides guidance for cutoff [...] Standards of Medical Care in Diabetes 2016, [place] [employer]. Diabetes Care. 2016.39(Suppl 1). Performed By: #### C KAREL BMP ####[facility] [place], [place] [phone] Potassium [Moles/Vol] 4.0 mmol/L Normal 3.7-5.1 [facility] Comment on above: Performed By: #### C KAREL BMP ####[facility], [place] [phone] Sodium [Moles/Vol] 138 mmol/L Normal 136-144 [facility] Comment on above: Performed By: #### C KAREL BMP ####[facility], [place] [phone] Urea nitrogen [Mass/Vol] 15 mg/dL Normal 9-24 [facility] Comment on above: Performed By: #### C KAREL BMP ####[facility], [place] [phone] CBC and Differentialon 12-24 Abs Baso 0.06 k/uL Normal <0.11 [facility] Comment on above: Performed By: #### C BCKATLYNF, BMP ####[place] [address] [place] [phone] Abs Ralls 1.82 k/uL High <0.87 [facility] Comment on above: Performed By: #### C BCDIF, BMP ####[place] [address] [place] [phone] Abs Neut 13.61 k/uL High 1.45-7.50 [facility] Comment on above: Performed By: #### C KAREL, BMP ####[place] [address] [place] [phone] Absolute nRBC <0.01 Normal <0.01 [facility] Comment on above: Performed By: #### C BCDIF, BMP ####[place] [address] [place] [phone] Basophils/100 WBC (Bld) 0.4 % Normal [facility] Comment on above: Performed By: #### C BCKRYSTAL, BMP ####[place] [address] [place] [phone] DTYPE Auto Diff Normal [facility] Comment on above: Performed By: #### C BCKATLYNF, BMP ####[place] [address] [place] [phone] Eosinophils (Bld) [#/Vol] 0.03 10*3/uL Normal <0.46 [facility] Comment on above: Performed By: #### C BCDIF, BMP ####[place] [address] [place] [phone] Eosinophils/100 WBC (Bld) 0.2 % Normal [facility] Comment on above: Performed By: #### C BCDIF, BMP ####[place] [address] [place], [place] [phone] Erythrocyte distribution width (RBC) [Ratio] 13.7 % Normal 11.5-15.0 [facility] Comment on above: Performed By: #### C BCDIF, BMP ####[place] [address] [place], [place] [phone] Hematocrit (Bld) [Volume fraction] 43.5 % Normal 39.0-51.0 [facility] Comment on above: Performed By: #### C BCDIF, BMP ####[place] [address], [place] [phone] Hemoglobin (Bld) [Mass/Vol] 14.5 g/dL Normal 13.0-17.0 [facility] Comment on above: Performed By: #### C BCDIF, BMP ####[place] [phone] Lymphocytes (Bld) [#/Vol] 1.16 10*3/uL Normal 1.00-4.00 [facility] Comment on above: Performed By: #### C BCDIF, BMP ####[place] [address] [place], [place] [phone] Lymphocytes/100 WBC (Bld) 7.0 % Normal [facility] Comment on above: Performed By: #### C BCDIF, BMP ####[place] [address], [place] [phone] MCH (RBC) [Entitic mass] 29.3 pG Normal 26.0-34.0 [facility] Comment on above: Performed By: #### C BCDIF, BMP ####[place] [address], [place] [phone] MCHC (RBC) [Mass/Vol] 33.3 g/dL Normal 30.5-36.0 [facility] Comment on above: Performed By: #### C BCDIF, BMP ####[place] [address]Har[place], [place] [phone] MCV (RBC) [Entitic vol] 87.9 fL Normal 80.0-100.0 [facility] Comment on above: Performed By: #### C BCDIF, BMP ####[place] [address], [place] [phone] Monocytes/100 WBC (Bld) 10.9 % Normal [facility] Comment on above: Performed By: #### C BCDIF, BMP ####[place] [address], [place] [phone] Neutrophils/100 WBC (Bld) 81.5 % Normal [facility] Comment on above: Result Comment: Diff erential confirmed by visual scan of peripheral blood smear slide. Performed By: #### C BCDIF, BMP ####[place] [address], [place] [phone] NRBCs 0.0 /100 WBC Normal 0 [facility] Comment on above: Performed By: #### C BCDIF, BMP ####[place] [address], [place] [phone] Platelet mean volume (Bld) [Entitic vol] 9.6 fL Normal 9.0-12.7 [facility] Comment on above: Performed By: #### C BCDIF, BMP ####[place] [address], [place] [phone] Platelets (Bld) [#/Vol] 278 10*3/uL Normal 150-400 [facility] Comment on above: Performed By: #### C BCDIF, BMP ####[place] [address], [place] [phone] RBC (Bld) [#/Vol] 4.95 10*6/uL Normal 4.20-6.00 [facility] Comment on above: Performed By: #### C BCDIF, BMP ####[place] [address] [place], [place] [phone] WBC (Bld) [#/Vol] 16.68 10*3/uL High 3.70-11.00 [facility] Comment on above: Performed By: #### C NIRALI VINSON ####[facility] [address] [place], [place] [phone] PROGRESSon 12-24-2018 PROGRESS HNO ID: [id number] Author: Clarence (Breana) Roxana Service: Urology Author Type: Resident Type: Progress Notes Filed: 12/24/2018 10:00 AM Note Text: [facility] UROLOGY PROGRESS NOTE Name: Clarence Flores Bed: [id number] Date: December 24, 2018 After Hours [facility] Service Pager: [phone] ASSESSMENT AND PLAN Clarence Flores is a [...] Imaging n/a Clarence Schmidt MD Personal Pager: [phone] For weekend or after hours issues [place] [phone] Normal [facility] Basic Metabolic Panlon 12-23 Anion gap [Moles/Vol] 14 mmol/L Normal 9-18 [facility] Comment on above: Performed By: #### C BCDIF, BMP ####[facility] [address] [place], [place] [phone] Calcium [Mass/Vol] 8.7 mg/dL Normal 8.5-10.2 [facility] Comment on above: Performed By: #### C BCDIF, BMP ####[facility] [address] [place], [place] [phone] Chloride [Moles/Vol] 102 mmol/L Normal 97-105 [facility] Comment on above: Performed By: #### C BCDIF, BMP ####[facility], [place] [phone] CO2 [Moles/Vol] 21 mmol/L Low 22-30 [facility] Comment on above: Performed By: #### C BCDIF, BMP ####[place] [address], [place] [phone] Creatinine [Mass/Vol] 1.31 mg/dL High 0.73-1.22 [facility] Comment on above: Performed By: #### C BCDIF, BMP ####[place] [address], [place] [phone] eGFR- Amer. >60 Normal [facility] Comment on above: Performed By: #### C BCDIF, BMP ####[place] [address] [place], [place] [phone] GFR/1.73 sq M predicted among non-blacks MDRD (S/P/Bld) [Vol rate/Area] 57 . Normal [facility] Comment on above: Result Comment: eGFR (Estimated [...] GFR. Performed By: #### C BCDIF, BMP ####[facility], [place] [phone] Glucose [Mass/Vol] 121 mg/dL High 74-99 [facility] Comment on above: Result Comment: The [place] Diabetes Association (ADA) provides guidance for cutoff [...] Standards of Medical Care in Diabetes 2016, [place] [employer]. Diabetes Care. 2016.39(Suppl 1). Performed By: #### C BCDIF, BMP ####[facility], [place] [phone] Potassium [Moles/Vol] 4.0 mmol/L Normal 3.7-5.1 [facility] Comment on above: Performed By: #### C BCDIF, BMP ####[facility] [place], [place] [phone] Sodium [Moles/Vol] 137 mmol/L Normal 136-144 [facility] Comment on above: Performed By: #### C BCDIF, BMP ####[facility], [place] [phone] Urea nitrogen [Mass/Vol] 11 mg/dL Normal 9-24 [facility] Comment on above: Performed By: #### C BCDIF, BMP ####[facility] [place], [place] [phone] CASE MGT INIT ROSARIO 2018 CASE MGT INIT ROSARIO HNO ID: [id number] Author: Cornelius Diaz (Sw) Service: Care Management Author Type: Line Manager Type: Care Mgt Initial Assessment Filed: 12/23/2018 4:27 PM Note Text: CARE MANAGEMENT: ASSESSMENT AND DISCHARGE PLAN SERVICE DATE: 12/23/2018 SERVICE TIME: 4:24 PM PRIMARY CARE PHYSICIAN: Shea Beach MD ADMISSION STATUS: Observation Needs Prior to Discharge: None;Ready for Discharge 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 No Advance Directive: Current Advance Directive: Health Care Power of Moving Consultant In Chart: Yes Up To Date and [...] None Has the Patient Been in a Mcfp Facility in the Past 30 days? No SOCIAL: Living Arrangement: Home Lives With: Son Financial Resources: Employed: [employer] Primary Contact: Extended Emergency Contact Information Primary [...] 0 I feel financially burdened by my [id number] expenses for my prescription medication: Disagree completely [...] #: Normal [facility] CBC and Differentialon 12-23 Abs Baso 0.03 k/uL Normal <0.11 [facility] Comment on above: Performed By: #### C BCDIF BMP ####[place] [address] [place] [phone] Abs Ralls 1.36 k/uL High <0.87 [facility] Comment on above: Performed By: #### C BCDIF, BMP ####[place] [address] [place] [phone] Abs Neut 16.73 k/uL High 1.45-7.50 [facility] Comment on above: Performed By: #### C BCDIF BMP ####[place] [address], [place] [phone] Absolute nRBC <0.01 Normal <0.01 [facility] Comment on above: Performed By: #### C BCDIF, BMP ####[facility] [place] [phone] Basophils/100 WBC (Bld) 0.2 % Normal [facility] Comment on above: Performed By: #### C BCDIF, BMP ####[place] [address] [place] [phone] DTYPE Auto Diff Normal [facility] Comment on above: Performed By: #### C BCDIF, BMP ####[place] [address] [place] [phone] Eosinophils (Bld) [#/Vol] 10*3/uL Normal <0.46 [facility] Comment on above: Performed By: #### C BCDIF, BMP ####[place] [address]ClevelHar[place], [place] [phone] Eosinophils/100 WBC (Bld) 0.0 % Normal [facility] Comment on above: Performed By: #### C BCDIF, BMP ####[place] [address]levelB[address] [place] [phone] Erythrocyte distribution width (RBC) [Ratio] 13.3 % Normal 11.5-15.0 [facility] Comment on above: Performed By: #### C BCDIF, BMP ####[place] [address], [place] [phone] Hematocrit (Bld) [Volume fraction] 46.4 % Normal 39.0-51.0 [facility] Comment on above: Performed By: #### C BCDIF, BMP ####[place] [address] [place] [phone] Hemoglobin (Bld) [Mass/Vol] 15.3 g/dL Normal 13.0-17.0 [facility] Comment on above: Performed By: #### C BCDIF, BMP ####[place] [address], [place] [phone] Lymphocytes (Bld) [#/Vol] 0.94 10*3/uL Low 1.00-4.00 [facility] Comment on above: Performed By: #### C BCDIF, BMP ####[place] [address] [place] [phone] Lymphocytes/100 WBC (Bld) 4.9 % Normal [facility] Comment on above: Performed By: #### C BCDIF, BMP ####[place] [address]Cleveland[place], [place] [phone] MCH (RBC) [Entitic mass] 28.2 pG Normal 26.0-34.0 [facility] Comment on above: Performed By: #### C BCDILinda, BMP ####[facility]ClevelHar[place], [place] [phone] MCHC (RBC) [Mass/Vol] 33.0 g/dL Normal 30.5-36.0 [facility] Comment on above: Performed By: #### C BCDIF, BMP ####[place] [address], [place] [phone] MCV (RBC) [Entitic vol] 85.5 fL Normal 80.0-100.0 [facility] Comment on above: Performed By: #### C BCDILinda, BMP ####[place] [address], [place] [phone] Monocytes/100 WBC (Bld) 7.1 % Normal [facility] Comment on above: Performed By: #### C BCDIF, BMP ####[place] [address], [place] [phone] Neutrophils/100 WBC (Bld) 87.8 % Normal [facility] Comment on above: Performed By: #### C BCDIF, BMP ####[place] [address], [place] [phone] NRBCs 0.0 /100 WBC Normal 0 [facility] Comment on above: Performed By: #### C BCDIF, BMP ####[place] [address]ClevelHar[place], [place] [phone] Platelet mean volume (Bld) [Entitic vol] 9.5 fL Normal 9.0-12.7 [facility] Comment on above: Performed By: #### C BCDIF, BMP ####[place] [address], [place] [phone] Platelets (Bld) [#/Vol] 315 10*3/uL Normal 150-400 [facility] Comment on above: Performed By: #### C BCDIF, BMP ####[facility] [address], [place] [phone] RBC (Bld) [#/Vol] 5.43 10*6/uL Normal 4.20-6.00 [facility] Comment on above: Performed By: #### C BCDIF, BMP ####[facility] [address] [place], [place] [phone] WBC (Bld) [#/Vol] 19.06 10*3/uL High 3.70-11.00 [facility] Comment on above: Performed By: #### C BCDIF, BMP ####[facility] [place], [place] [phone] PROGRESSon 12-23-2018 PROGRESS HNO ID: [id number] Author: Clarence (Geovanna Schmidt Service: Urology Author Type: Resident Type: Progress Notes Filed: 12/23/2018 8:40 AM Note Text: [facility] UROLOGY PROGRESS NOTE Name: Clarence Flores Bed: G090 [id number]/[id number] Date: December 23, 2018 After Hours [facility] Urology Service Pager: [phone] ASSESSMENT AND PLAN Clarence Flores is a [...] Imaging n/a Clarence Schmidt MD Personal Pager: [phone] For weekend or after hours issues [place] [phone] Normal [facility] ANES Ferny 12-22-2018 ANES POST HNO ID: [id number] Author: Salvatore Lacey Service: Anesthesiology Author Type: [...] 22, 2018 TIME: 12:16 PM PAGER/CONTACT #: [phone] Normal [facility] Basic Metabolic Panlon 12-22 Anion gap [Moles/Vol] 10 mmol/L Normal 9-18 [facility] Comment on above: Performed By: #### C BCDIF, BMP ####[facility] [address] [place], [place] [phone] Calcium [Mass/Vol] 8.0 mg/dL Low 8.5-10.2 [facility] Comment on above: Performed By: #### C BCDIF, BMP ####[facility] [address] [place], [place] [phone] Chloride [Moles/Vol] 105 mmol/L Normal 97-105 [facility] Comment on above: Performed By: #### C BCDIF, BMP ####[facility], [place] [phone] CO2 [Moles/Vol] 23 mmol/L Normal 22-30 [facility] Comment on above: Performed By: #### C BCDIF, BMP ####[place] [address], [place] [phone] Creatinine [Mass/Vol] 1.17 mg/dL Normal 0.73-1.22 [facility] Comment on above: Performed By: #### C BCDIF, BMP ####[place] [address], [place] [phone] eGFR- Amer. >60 Normal [facility] Comment on above: Performed By: #### C BCDIF, BMP ####[place] [address] [place], [place] [phone] GFR/1.73 sq M predicted among non-blacks MDRD (S/P/Bld) [Vol rate/Area] mL/min/{1.73_m2} Normal [facility] Comment on above: Result Comment: eGFR (Estimated [...] GFR. Performed By: #### C BCDIF, BMP ####[place] [address] [place], [place] [phone] Glucose [Mass/Vol] 168 mg/dL High 74-99 [facility] Comment on above: Result Comment: The [place] [employer] (ADA) provides guidance for cutoff [...] Standards of Medical Care in Diabetes 2016, [place] [employer]. Diabetes Care. 2016.39(Suppl 1). Performed By: #### C BCDIF, BMP ####[place] [address] [place], [place] [phone] Potassium [Moles/Vol] 5.5 mmol/L High 3.7-5.1 [facility] Comment on above: Result Comment: Resu lts may be falsely increased due to interference by hemolysis. Suggest reorder as clinically indicated. Performed By: #### C BCDIF, BMP ####[place] [address] [place], [place] [phone] Sodium [Moles/Vol] 138 mmol/L Normal 136-144 [facility] Comment on above: Performed By: #### C BCDIF, BMP ####[facility], [place] [phone] Urea nitrogen [Mass/Vol] 9 mg/dL Normal 9-24 [facility] Comment on above: Performed By: #### C BCDIF, BMP ####[place] [address] [place], [place] [phone] CBC and Differentialon 12-22 Abs Baso 0.07 k/uL Normal <0.11 [facility] Comment on above: Performed By: #### C BCDIF, BMP ####[place] [address] [place], [place] [phone] Abs Ralls 0.89 k/uL High <0.87 [facility] Comment on above: Performed By: #### C BCDIF, BMP ####[place] [address]level[address], [place] [phone] Abs Neut 13.53 k/uL High 1.45-7.50 [facility] Comment on above: Performed By: #### C BCDIF, BMP ####[place] [address] [place] [phone] Absolute nRBC <0.01 Normal <0.01 [facility] Comment on above: Performed By: #### C BCDIF, BMP ####[place] [address] [place] [phone] Basophils/100 WBC (Bld) 0.4 % Normal [facility] Comment on above: Performed By: #### C BCDIF, BMP ####[place] [address] [place] [phone] DTYPE Auto Diff Normal [facility] Comment on above: Performed By: #### C BCDIF, BMP ####[place] [address] [place] [phone] Eosinophils (Bld) [#/Vol] 0.06 10*3/uL Normal <0.46 [facility] Comment on above: Performed By: #### C BCDIF, BMP ####[place] [address] [place] [phone] Eosinophils/100 WBC (Bld) 0.4 % Normal [facility] Comment on above: Performed By: #### C BCDIF, BMP ####[place] [address] [place] [phone] Erythrocyte distribution width (RBC) [Ratio] 13.6 % Normal 11.5-15.0 [facility] Comment on above: Performed By: #### C BCDIF, BMP ####[place] [address] [place] [phone] Hematocrit (Bld) [Volume fraction] 46.4 % Normal 39.0-51.0 [facility] Comment on above: Performed By: #### C BCDIF, BMP ####[place] [address], [place] [phone] Hemoglobin (Bld) [Mass/Vol] 15.4 g/dL Normal 13.0-17.0 [facility] Comment on above: Performed By: #### C BCDIF, BMP ####[place] [address] [place] [phone] Lymphocytes (Bld) [#/Vol] 1.09 10*3/uL Normal 1.00-4.00 [facility] Comment on above: Performed By: #### C BCDIF, BMP ####[place] [phone] Lymphocytes/100 WBC (Bld) 7.0 % Normal [facility] Comment on above: Performed By: #### C BCDIF, BMP ####[place] [phone] MCH (RBC) [Entitic mass] 28.7 pG Normal 26.0-34.0 [facility] Comment on above: Performed By: #### C BCDIF, BMP ####[place] [address] [address] [phone] MCHC (RBC) [Mass/Vol] 33.2 g/dL Normal 30.5-36.0 [facility] Comment on above: Performed By: #### C BCDIF, BMP ####[place] [address] [address], [place] [phone] MCV (RBC) [Entitic vol] 86.4 fL Normal 80.0-100.0 [facility] Comment on above: Performed By: #### C BCDIF, BMP ####[address], [place] [phone] Monocytes/100 WBC (Bld) 5.7 % Normal [facility] Comment on above: Performed By: #### C BCDIF, BMP ####[facility], [place] [phone] Neutrophils/100 WBC (Bld) 86.5 % Normal [facility] Comment on above: Performed By: #### C BCDIF, BMP ####[place] [address] [address], [place] [phone] NRBCs 0.0 /100 WBC Normal 0 [facility] Comment on above: Performed By: #### C BCDIF, BMP ####[place] [address] [address], [place] [phone] Platelet mean volume (Bld) [Entitic vol] 9.8 fL Normal 9.0-12.7 [facility] Comment on above: Performed By: #### C BCDIF, BMP ####[place] [address] [address], [place] [phone] Platelets (Bld) [#/Vol] 263 10*3/uL Normal 150-400 [facility] Comment on above: Performed By: #### C BCDIF, BMP ####[place] [address] [address], [place] [phone] RBC (Bld) [#/Vol] 5.37 10*6/uL Normal 4.20-6.00 [facility] Comment on above: Performed By: #### C BCDIF, BMP ####[place] [address] [address], [place] [phone] WBC (Bld) [#/Vol] 15.64 10*3/uL High 3.70-11.00 [facility] Comment on above: Performed By: #### C BCDIF, BMP ####[place] [address] [address], [place] [phone] CNCOon 12-22-2018 CNCO Letter Text Normal [facility] NURSING PROGon 12-22-2018 NURSING PROG HNO ID: [id number] Author: Yoly SandersRnParker De Jesus RN Service: Nursing Author Type: [...] Jesus RN MSN In Department: HOSP MAIN [facility] Normal [facility] OPERATIVE NOon 12-22-2018 OPERATIVE NO HNO ID: [id number] Author: Cyrus Justice Service: Urology Author Type: Resident Type: Operative Report Filed: 12/22/2018 11:07 AM Note Text: ----- Attestation signed by Miaco Ang at 12/22/2018 11:58 AM . ----- OPERATIVE/PROCEDURE REPORT LOG ID: [id number] Surgery/Procedure Date: 12/22/2018 Incision/Procedure Start Time: 8:19 AM Incision Close/Procedure End Time: 10:48 AM Surgeon(s)/Proceduralist( s) and City Assessor(s): Surgeon(s) and Role: * Maico Ang - Primary * Cyrus Justice - Resident - Assisting * Ernesto Heller - Resident - Assisting No Additional Staff [...] 8-mm robotic ports and one 12-mm airseal pediatric medical assistant port were placed. The robot was [...] under vision. We then extended our 12mm pediatric medical assistant port site cephalad and extracted our specimen through this. We then mobilized his umbilical hernia sac. Herniated mesentery was delivered out of the hernia sac and sac dissected completely free off the skin. The fascia was then closed using interrupted [id number]-uj-cvvvv 0-prolene sutures. 3-0 vicryl was used to [...] 1.left renal neoplasm Tissue Kidney taken by [facility] Pathology Routine 2.hernia sac Tissue taken by [facility] Pathology Routine Implantable Devices: None Drains: 10-flat SHELBY drain and jacques catheter (18-arabic coude with 10cc balloon) Complications: None Accidental [...] 22, 2018 TIME: 10:48 AM PAGER/CONTACT #: [phone] [facility] PROGRESSon 12-22-2018 PROGRESS HNO ID: [id number] Author: [place] Schmidt Service: Urology Author Type: Resident Type: Progress Notes Filed: 12/22/2018 4:14 PM Note Text: [facility] UROLOGY PROGRESS NOTE Name: [place] Flores Bed: G090 [id number]/[id number] Date: December 22, 2018 After Hours Main [place] [facility] Service Pager: [phone] ASSESSMENT AND PLAN [place] Flores is a [...] voluntary guarded without peritonitic signs, comfortable at [facility] Wound: Binder in place, dressing c/d/i : [...] Imaging n/a [place] Schmidt MD Personal Pager: [phone] For weekend or after hours issues [place] [phone] Normal [facility] PROGRESS HNO ID: [id number] Author: Valeria (Rn) FIORELLA Moreno Service: ? [...] RN Normal [facility] Potassiumon 12-22-2018 Potassium [Moles/Vol] 4.2 mmol/L Normal 3.7-5.1 [facility] Comment on above: Performed By: #### K 1 ####[facility] [address] [place], [place] [phone] SURGICAL PATHOLOGYon 019 SURGICAL PATHOLOGY Specimen originated from [facility] Specimen #: [id number] Submitting Physician: MAICO ANG ([id number]) FINAL DIAGNOSIS [...] Pathologic Findings in Nonneoplastic Kidney: Insufficient tissue Inclusion Paraeducator Tumor Block: Specify: A1 ------ Meño Hamilton MD (Electronic Signature) SPECIMEN SUBMITTED [...] appear to extend beyond the capsular surface. Inclusion Paraeducator sections are submitted as follows: A1-A3 mass with renal sinus/parenchymal margin, A4-A5 mass with capsular surface. WE/glalistair 12/22/2018 B. Received fresh labeled hernia sac is a segment of cote pink fibromembranous soft tissue measuring 4.7 x 1.9 x 0.6 cm. No nodularity or induration is identified. Inclusion Paraeducator sections are submitted in formalin in cassette B1. Gini 12/22/2018 [place] [address] Date of Report: 12/24/2018 Date of Procedure: 12/22/2018 Date of Receipt: 12/22/2018 Submitted by: MAICO ANG (Q10) Location: G90 Diagnostic interpretation performed at [place] [address]. CLIA Number: [id number] Normal [facility] APTTon 12-17-2018 aPTT Coag (Bld) [Time] 28.8 s Normal 23.0-32.4 Cl [facility] Comment on above: Result Comment: Unfr [...] laboratory APTT reagent in use throughout the [facility]. Performed By: #### P T, PTT, CBC, CMP #### [place] [address] CBCon 12-17-2018 Absolute nRBC <0.01 Normal <0.01 [facility] Comment on above: Performed By: #### P T, PTT, CBC, CMP #### [place] [phone] Erythrocyte distribution width (RBC) [Ratio] 13.2 % Normal 11.5-15.0 [facility] Comment on above: Performed By: #### P T, PTT, CBC, CMP #### [place] [phone] Hematocrit (Bld) [Volume fraction] 46.7 % Normal 39.0-51.0 [facility] Comment on above: Performed By: #### P T, PTT, CBC, CMP #### [place] [address] Hemoglobin (Bld) [Mass/Vol] 15.7 g/dL Normal 13.0-17.0 [facility] Comment on above: Performed By: #### P T, PTT, CBC, CMP #### [place] [address] MCH (RBC) [Entitic mass] 28.6 pG Normal 26.0-34.0 [facility] Comment on above: Performed By: #### P T, PTT, CBC, CMP #### [place] [id number] [place] [address] MCHC (RBC) [Mass/Vol] 33.6 g/dL Normal 30.5-36.0 [facility] Comment on above: Performed By: #### P T, PTT, CBC, CMP #### [place] [address] MCV (RBC) [Entitic vol] 85.2 fL Normal 80.0-100.0 [facility] Comment on above: Performed By: #### P T, PTT, CBC, CMP #### [place] [address] Platelet mean volume (Bld) [Entitic vol] 9.9 fL Normal 9.0-12.7 [facility] Comment on above: Performed By: #### P T, PTT, CBC, CMP #### [place] [address] Platelets (Bld) [#/Vol] 322 10*3/uL Normal 150-400 [facility] Comment on above: Performed By: #### P T, PTT, CBC, CMP #### [place] [address] RBC (Bld) [#/Vol] 5.48 10*6/uL Normal 4.20-6.00 [facility] Comment on above: Performed By: #### P T, PTT, CBC, CMP #### [place] [address] WBC (Bld) [#/Vol] 9.33 10*3/uL Normal 3.70-11.00 [facility] Comment on above: Performed By: #### P T, PTT, CBC, CMP #### [place] [address] CNOVon 12-17-2018 CNOV Office Visit (PSSCMN ) ----- CLAR[place] FLORES ([id number]) 1960 M Date Time Provider Department 12/17/18 12:00 PM [facility] PSSCMN During your visit today, [...] addendum labs and ekg to [facility]; Aimee Romero RN Lab Value Units Date [...] 8:41:34 AM ? Referring Provider: MAICO ANG [[id number]] Allergies As of Date: 12/17/2018 Noted Allergy [...] on 12/17/18 Chart Close Cosign Accepted by: PERYC BERTRAND MD[[id number]] Chart Close Cosign Accepted on: Mary Ellen Dec 17, 2018 12:54 PM Normal [facility] CNOV Office Visit (UROLMN ) ----- CLARENCE FLORES ([id number]) 1960 M Date Time Provider Department 12/17/18 9:15 AM JESSICA HERRERA ([facility]) UROLMN During your visit today, we recorded the following information about you: Pulse Blood pressure Weight Height 64/minute 169/96 119.8 kg 1.676 m Jessica Herrera CNP 12/17/2018 9:57 AM Signed UROLOGY SURGICAL HANDP SERVICE DATE: 12/17/2018 REFERRING PROVIDER: Maico Ang MD [address] [facility] [address] PCP: Shea Beach MD GENDER: SUBJECTIVE CHIEF [...] problems. Neurologic: No history of TIA's, stroke, BACKBREAKER tumor, impaired sensorium, hemiplegia, paraplegia or quadriplegia. [...] 16, 2018 TIME: 12:38 PM PAGER/CONTACT #: [facility] PRE-OP NOTE [place] Flores is a 58 year old male. Pre-op Date: December 16, 2018 Date of Procedure: 12/22/2018 Procedure/Surgery: Robotic L partial Nx Diagnosis: L renal mass Primary Surgeon: MD Allie, [facility] Healthquest Score: tbd BP 169/96 (BP [...] CNP Electronically signed Referring Provider: MAICO ANG [[id number]] Allergies As of Date: 12/17/2018 Noted Allergy [...] 12/17/18 Normal [facility] Comp Metabolic Panelon 12-17 Albumin [Mass/Vol] 4.3 g/dL Normal 3.9-4.9 [facility] Comment on above: Performed By: #### P T, PTT, CBC, CMP ####[facility] [place], [place] [phone] ALP [Catalytic activity/Vol] 56 U/L Normal 38-113 [facility] Comment on above: Performed By: #### P T, PTT, CBC, CMP ####[facility] [address] [place], [place] [phone] ALT [Catalytic activity/Vol] 22 U/L Normal 10-54 [facility] Comment on above: Performed By: #### P T, PTT, CBC, CMP ####[place] [address] [address] [place], [place] [phone] Anion gap [Moles/Vol] 13 mmol/L Normal 9-18 [facility] Comment on above: Performed By: #### P T, PTT, CBC, CMP ####[place] [address] [address], [place] [phone] AST [Catalytic activity/Vol] 25 U/L Normal 14-40 [facility] Comment on above: Performed By: #### P T, PTT, CBC, CMP ####[address] [phone] Bilirubin [Mass/Vol] 0.4 mg/dL Normal 0.2-1.3 [facility] Comment on above: Performed By: #### P T, PTT, CBC, CMP ####[place] [address] [address], [place] [phone] Calcium [Mass/Vol] 9.3 mg/dL Normal 8.5-10.2 [facility] Comment on above: Performed By: #### P T, PTT, CBC, CMP ####[place] [address] [address], [place] [phone] Chloride [Moles/Vol] 105 mmol/L Normal 97-105 [facility] Comment on above: Performed By: #### P T, PTT, CBC, CMP ####[place] [address] [place], [place] [phone] CO2 [Moles/Vol] 21 mmol/L Low 22-30 [facility] Comment on above: Performed By: #### P T, PTT, CBC, CMP ####[place] [address] [place], [place] [phone] Creatinine [Mass/Vol] 1.20 mg/dL Normal 0.73-1.22 [facility] Comment on above: Performed By: #### P T, PTT, CBC, CMP ####[facility] [place], [place] [phone] eGFR- Amer. >60 Normal [facility] Comment on above: Performed By: #### P T, PTT, CBC, CMP ####[facility] [place] [address] [phone] GFR/1.73 sq M predicted among non-blacks MDRD (S/P/Bld) [Vol rate/Area] mL/min/{1.73_m2} Normal [facility] Comment on above: Result Comment: eGFR (Estimated [...] By: #### P T, PTT, CBC, CMP ####[facility] [place], [place] [phone] Glucose [Mass/Vol] 105 mg/dL High 74-99 [facility] Comment on above: Result Comment: The [employer] (ADA) provides guidance for cutoff [...] Standards of Medical Care in Diabetes 2016, [employer]. Diabetes Care. 2016.39(Suppl 1). Performed By: #### P T, PTT, CBC, CMP ####[facility] [place], [place] [phone] Potassium [Moles/Vol] 4.0 mmol/L Normal 3.7-5.1 [facility] Comment on above: Performed By: #### P T, PTT, CBC, CMP ####[address] [phone] Protein [Mass/Vol] 7.1 g/dL Normal 6.3-8.0 [facility] Comment on above: Performed By: #### P T, PTT, CBC, CMP ####[address] [phone] Sodium [Moles/Vol] 139 mmol/L Normal 136-144 [facility] Comment on above: Performed By: #### P T, PTT, CBC, CMP ####[address] [phone] Urea nitrogen [Mass/Vol] 13 mg/dL Normal 9-24 [facility] Comment on above: Performed By: #### P T, PTT, CBC, CMP ####[facility] [place] [address] [phone] Confirm Blood Typeon 019 ABO/RH(D) Positive Normal [facility] Comment on above: Performed By: #### C ONABO ####[address] [phone] ECG COMPLETEon 12-17-2018 ECG COMPLETE NAME : [place] FLORES PID : [id number] : 1960 Gender : Male Race : ORD : [id number] Procedure Date : Dec 17 2018 10:39:05 Edit Date : Dec 18 2018 08:41:40 Diagnosis:NORMAL SINUS RHYTHM NORMAL ECG Confirmed by TARIQ DRUMMOND MD ([id number]) on 12/18/2018 8:41:34 AM Ventricular Rate : 63 BPM Atrial Rate : 63 BPM P-R Interval : 160 ms QRS Duration : 94 ms Q-T Interval : 420 ms QTC Calculation(Bazett) : 429 ms P Harford : 36 degrees R Harford : 69 degrees T Harford : 80 degrees Test Reason : Location : 119 : A17 A17 Overread By : TARIQ DRUMMOND MD Edited By : TARIQ DRUMMOND MD Referred By : MAICO ANG Acquired by : PARIS ESTEVES [facility] PROGRESSon 12-17-2018 PROGRESS HNO ID: [id number] Author: Aimee Richards (Rn) Linda Service: ? [...] addendum labs and ekg to [facility]; Aimee Romero RN Lab Value Units Date [...] ? Normal [facility] Protimeon 12-17-2018 PT Coag (PPP) [Time] 10.8 s Normal 9.7-13.0 [facility] Comment on above: Performed By: #### P T, PTT, CBC, CMP #### [facility] [address] [place], [place] [address] PT Coag (PPP) [Time] 1.0 s Normal 0.9-1.3 [facility] Comment on above: Result Comment: Tyra min K Antagonist (VKA) Therapeutic Range: INR 2 to 3 (Target INR of 2.5) Note: For patients treated with VKA drugs, such as warfarin, the [employer] 2012 Guideline recommends [...] Chest 2012, 141:7S-47S Pablito RA, et al. JAC 2017, 70: 252-289 Performed By: #### P T, PTT, CBC, CMP #### [facility] [address] [place], [place] [address] Type and SCR (30D)on 019 ABO/RH(D) Positive Normal [facility] Comment on above: Performed By: #### T SCR30 ####[facility] [address] [place], [place] [phone] CNPTOUTREACHon 12-16-2018 CNPTOUTREACH Patient Outreach (UR OLMN) ----- CLARENCE FLORES ([id number]) 1960 M Date Time Provider Department 12/16/18 JESSICA HERRERA (JOSE) FRIDA During your visit today, we recorded the following information about you: Allergies As of Date: 12/16/2018 Noted Allergy Reaction NITROGLYCERIN 11/26/2018 14 - Other: See Comments Date Reviewed: 11/26/2018 Reviewed by: Monica Shah - Fully Assessed Visit Diagnosis:Screening for genitourinary condition [Z13.89] Order(s):UA CHEMSTRIP ONLY [SQUA] Order #: [id number] Prescriptions as of 12/16/2018 Sig: OXYCODONE 5 [...] 12/31/18 Normal [facility] HISTORY PHYSICALon 9 HISTORY PHYSICAL HNO ID: [id number] Author: Jessica (Jose) Summer Service: ? Author Type: Nurse Practitioner Type: HANDP Filed: 12/17/2018 9:57 AM Note Text: UROLOGY SURGICAL HANDP SERVICE DATE: 12/17/2018 REFERRING PROVIDER: Maico Ang MD [address] [facility] [address] PCP: Shea Beach MD GENDER: SUBJECTIVE CHIEF [...] problems. Neurologic: No history of TIA's, stroke, BACKBREAKER tumor, impaired sensorium, hemiplegia, paraplegia or quadriplegia. [...] 16, 2018 TIME: 12:38 PM PAGER/CONTACT #: [facility] PRE-OP NOTE [place] Flores is a 58 year old male. Pre-op Date: December 16, 2018 Date of Procedure: 12/22/2018 Procedure/Surgery: Robotic L partial Nx Diagnosis: L renal mass Primary Surgeon: MD Allie, [facility] Healthquest Score: tbd BP 169/96 (BP [...] morning medications as instructed by the doctor. chloe Goldbergts, gum, and smoking are NOT permitted. You [...] signed Normal [facility] CNOVon 11-26-2018 CNOV Office Visit (UROLMN ) ----- CLARENCE FLORES ([id number]) 1960 M Date Time Provider Department 11/26/18 9:00 AM MAICO ANG During your visit today, we recorded the following information about you: Pulse Blood pressure Weight Height 67/minute 165/98 118 kg 1.676 m Maico Ang MD 11/29/2018 6:01 AM Signed [facility] NEW PATIENT HISTORY AND PHYSICAL EXAM PATIENT INFO: [place] Flores 58 year old REFERRING M.D.: Damien Sales MD [address] [facility] [address] CHIEF COMPLAINT: left renal mass 58 y/o [...] file Gets together: Not on file Attends hindu service: Not on file Active member of [...] PLAN: Per Staff Benton Dillon PA-C Pager [phone] Office [phone] I saw and evaluated the patient; the history and exam were reviewed with the PA/resident and confirmed by me; and the plan is outlined below. healthy 58 yr obese male with L lower pole [address] reviewed DW pt and family rec attempt RPNx they agree to proceed, will schedule Maico Ang MD Referring Provider: DAMIEN SALES [[id number]] Allergies As of Date: 11/26/2018 Noted Allergy [...] Status:Closed by MAICO ANG MD on 11/29/18 Normal [facility] HOSP 11-26-2018 HOSP Patient:[place] Flores MRN: Height:5' [...] 46.7 % 12/17/2018 51.0 39.0 Progress Notes ([facility]): Aimee Romero RN 12/21/2018 9:03 [...] PAGER/CONTACT #: addendum labs and ekg to [facility]; Aimee Romero RN Lab Value Units Date [...] Diagnosis:NORMAL SINUS RHYTHM NORMAL ECG Confirmed by BHANU SARAH, TARIQ (65) on 12/18/2018 8:41:34 AM ? Previous Version Progress Notes ([facility]): Maico Ang MD 11/29/2018 6:01 AM Signed [facility] NEW PATIENT HISTORY AND PHYSICAL EXAM PATIENT INFO: [place] Flores 58 year old REFERRING M.D.: Damien Sales MD [address] [facility] [address] CHIEF COMPLAINT: left renal mass 58 y/o [...] file Gets together: Not on file Attends hindu service: Not on file Active member of [...] PLAN: Per Staff Benton Dillon PA-C Pager [phone] Office [phone] I saw and evaluated the patient; the [...] Version Normal [facility] PROGRESSon 11-26-2018 PROGRESS HNO ID: [id number] Author: Maico Ang Service: ? Author Type: Physician Type: Progress Notes Filed: 11/29/2018 6:01 AM Note Text: [facility] NEW PATIENT HISTORY AND PHYSICAL EXAM PATIENT INFO: [place] Flores 58 year old REFERRING M.D.: Damien Sales MD [address] [facility] [address] CHIEF COMPLAINT: left renal mass 58 y/o [...] file Gets together: Not on file Attends hindu service: Not on file Active member of [...] PLAN: Per Staff Benton Dillon PA-C Pager [phone] Office [phone] I saw and evaluated the patient; the history and exam were reviewed with the PA/resident and confirmed by me; and the plan is outlined below. healthy 58 yr obese male with L lower pole [address] reviewed DW pt and family rec attempt RPNx they agree to proceed, will schedule Maico Ang MD Normal [facility] OT-CT CHEST W CON IMPORTon 1 OT-CT CHEST W CON IMPORT Images were obtained outside of [facility] [id number] Normal [facility] OT-CT ABDOMEN WO/W CON IMPOR Ton 11-05-2018 OT-CT ABDOMEN WO/W CON IMPORT Images were obtained outside of [facility] [id number] Normal [facility] CT-CT ABD/PELVIS WO CON IMPO RTon 10-05-2018 CT-CT ABD/PELVIS WO CON IMPORT Images were obtained outside of [facility] [id number] Normal [facility] Vital Signs Date Time Vital Sign Value Performing Clinician Facility 10-27-2024 15:47-0400 Body height 167.6 cm Andra Ramirez [employer] Work Phone: [facility] 10-27-2024 15:47-0400 Body mass index (BMI) [Ratio] 39 kg/m2 Andra Ramirez CH[employer]MAN[employer]ERSON [employer] Work Phone: [facility] 10-27-2024 15:47-0400 Body weight 109.59 kg Andra Ramirez CH[employer]MAN[employer] Work Phone: [facility] 10-27-2024 15:47-0400 Diastolic blood pressure 64 mm[Hg] Andra Ramirez CH[employer]MAN[employer] Work Phone: [facility] 10-27-2024 15:47-0400 Heart rate 68 /min Andra Ramirez [employer]MAN[employer]ALESP[employer] Work Phone: [facility] 10-27-2024 15:47-0400 Systolic blood pressure 116 mm[Hg] Andra Rmairez CH[employer]MAN[employer]ESPERSON [employer] Work Phone: [facility] 09-24-2024 15:53-0400 Body height 167.6 cm Leon Biedenbach DO Work Phone: [facility] 09-24-2024 15:53-0400 Body mass index (BMI) [Ratio] 34.7 kg/m2 Leon Biedenbach DO Work Phone: [facility] 09-24-2024 15:53-0400 Body weight 97.52 kg Leon Biedenbach DO Work Phone: [facility] 09-03-2024 15:35-0400 Body height 167.6 cm Leon Biedenbach DO Work Phone: [facility] 09-03-2024 15:35-0400 Body mass index (BMI) [Ratio] 34.7 kg/m2 Leon Biedenbach DO Work Phone: [facility] 09-03-2024 15:35-0400 Body weight 97.52 kg Leon Biedenbach DO Work Phone: [facility] [facility] 08-20-2024 15:41-0400 Body height 167.6 cm Leon Biedenbach DO Work Phone: [facility] 08-20-2024 15:41-0400 Body mass index (BMI) [Ratio] 34.7 kg/m2 Leon Biedenbach DO Work Phone: [facility] 08-20-2024 15:41-0400 Body weight 97.52 kg Leon Biedenbach DO Work Phone: [facility] 06-18-2024 15:39-0400 Body height 167.6 cm Leon Biedenbach DO Work Phone: [facility] 06-18-2024 15:39-0400 Body mass index (BMI) [Ratio] 34.7 kg/m2 Leon Biedenbach DO Work Phone: [facility] 06-18-2024 15:39-0400 Body weight 97.52 kg Leon Biedenbach DO Work Phone: [facility] 05-13-2024 15:51-0400 Body height 167.6 cm Leon Biedenbach DO Work Phone: [facility] 05-13-2024 15:51-0400 Body mass index (BMI) [Ratio] 34.7 kg/m2 Leon Biedenbach DO Work Phone: [facility] 05-13-2024 15:51-0400 Body weight 97.52 kg Leon Biedenbach DO Work Phone: [facility] 05-06-2024 10:15-0400 Body height 167.6 cm Mike Morelos DO Work Phone: [facility] 05-06-2024 10:15-0400 Body mass index (BMI) [Ratio] 36.64 kg/m2 Mike Morelos DO Work Phone: [facility] 05-06-2024 10:15-0400 Body weight 102.97 kg Mike Morelos DO Work Phone: [facility] 05-06-2024 10:15-0400 Diastolic blood pressure 60 mm[Hg] Mike Morelos DO Work Phone: [facility] 05-06-2024 10:15-0400 Heart rate 80 /min Mike Morelos DO Work Phone: [facility] 05-06-2024 10:15-0400 Systolic blood pressure 110 mm[Hg] Mike Morelos DO Work Phone: [facility] 04-09-2024 15:29-0500 Body height 167.6 cm Leon Biedenbach DO Work Phone: [facility] 04-09-2024 15:29-0500 Body mass index (BMI) [Ratio] 34.7 kg/m2 Leon Biedenbach DO Work Phone: [facility] 04-09-2024 15:29-0500 Body weight 97.52 kg Leon Biedenbach DO Work Phone: [facility] 03-26-2024 15:27-0500 Body height 167.6 cm Leon Biedenbach DO Work Phone: [facility] 03-26-2024 15:27-0500 Body mass index (BMI) [Ratio] 34.7 kg/m2 Leon Biedenbach DO Work Phone: [facility] 03-26-2024 15:27-0500 Body weight 97.52 kg Leon Biedenbach DO Work Phone: [facility] 02-13-2024 15:36-0500 Body height 167.6 cm Leon Biedenbach DO Work Phone: [facility] 02-13-2024 15:36-0500 Body mass index (BMI) [Ratio] 34.7 kg/m2 Leon Biedenbach DO Work Phone: [facility] 02-13-2024 15:36-0500 Body weight 97.52 kg Leon Biedenbach DO Work Phone: [facility] 01-30-2024 15:19-0500 Body height 167.6 cm Leon Biedenbach DO Work Phone: [facility] 01-30-2024 15:19-0500 Body mass index (BMI) [Ratio] 34.7 kg/m2 Leon Castro DO Work Phone: [facility] 01-30-2024 15:19-0500 Body weight 97.52 kg Leon Castro DO Work Phone: [facility] 01-12-2024 15:53-0500 Body mass index (BMI) [Ratio] 36.96 kg/m2 Jany Navarrete MD Work Phone: [facility] 01-12-2024 15:53-0500 Body weight 103.87 kg Jany Navarrete MD Work Phone: [facility] 12-17-2023 14:31-0500 Body height 167.6 cm Jany Navarrete MD Work Phone: [facility] 12-17-2023 14:31-0500 Body mass index (BMI) [Ratio] 35.83 kg/m2 Jany Navarrete MD Work Phone: [facility] 12-17-2023 14:31-0500 Body weight 100.7 kg Jany Navarrete MD Work Phone: [facility] 11-12-2023 14:50-0400 Body height 167.6 cm Rachel Mckeon NP Work Phone: [facility] 11-12-2023 14:50-0400 Body mass index (BMI) [Ratio] 35.67 kg/m2 Rachel Mckeon DESIGN PROJECT MANAGER Work Phone: [facility] 11-12-2023 14:50-0400 Body weight 100.25 kg Rachel Mckeon DESIGN PROJECT MANAGER Work Phone: [facility] 11-12-2023 14:50-0400 Diastolic blood pressure 72 mm[Hg] Rachel Mckeon DESIGN PROJECT MANAGER Work Phone: [facility] 11-12-2023 14:50-0400 Heart rate 69 /min Rachel Mckeon DESIGN PROJECT MANAGER Work Phone: [facility] 11-12-2023 14:50-0400 SaO2% (BldA) [Mass fraction] 95 % Rachel Linda DESIGN PROJECT MANAGER Work Phone: [facility] 11-12-2023 14:50-0400 Systolic blood pressure 138 mm[Hg] Rachel Gillnain DESIGN PROJECT MANAGER Work Phone: [facility] 10-31-2023 09:06-0400 Body height 167.6 cm Mike Morelos DO Work Phone: [facility] 10-31-2023 09:06-0400 Body mass index (BMI) [Ratio] 34.7 kg/m2 Mike Morelos DO Work Phone: [facility] 10-31-2023 09:06-0400 Body weight 97.52 kg Mike Morelos DO Work Phone: [facility] 10-31-2023 09:06-0400 Diastolic blood pressure 76 mm[Hg] Mike Morelos DO Work Phone: [facility] 10-31-2023 09:06-0400 Heart rate 64 /min Mike Morelos DO Work Phone: [facility] 10-31-2023 09:06-0400 Systolic blood pressure 116 mm[Hg] Mike Morelos DO Work Phone: [facility] 07-14-2023 14:01-0400 Blood Pressure Location Tariq PATHAKL [facility] [place] 07-14-2023 14:01-0400 Diastolic blood pressure 72 mm[Hg] Tariq NILL [facility] [place] 07-14-2023 14:01-0400 Heart rate 74 /min Tariq NILL [facility] [place] 07-14-2023 14:01-0400 Respiratory rate 16 /min Tariq NILL [facility] [place] 07-14-2023 14:01-0400 Systolic blood pressure 112 mm[Hg] Tariq EVAN [facility] [place] 04-23-2023 15:37-0400 Body mass index (BMI) [Ratio] 40.84 kg/m2 Andrapaul Ramirez [employer] Work Phone: [facility] 04-23-2023 15:37-0400 Body weight 114.76 kg Andra Ramirez CH[employer]MAN[employer] Work Phone: [facility] 04-23-2023 15:37-0400 Diastolic blood pressure 70 mm[Hg] Andrapaul Ramirez [employer] Work Phone: [facility] 04-23-2023 15:37-0400 Heart rate 82 /min Andrapaul Ramirez [employer] Work Phone: [facility] 04-23-2023 15:37-0400 Systolic blood pressure 112 mm[Hg] Andra Ramirez [employer] Work Phone: [facility] 01-22-2023 15:36-0500 Body height 167.6 cm Andra Ramirez [employer] Work Phone: [facility] 01-22-2023 15:36-0500 Body mass index (BMI) [Ratio] 44.87 kg/m2 Andra Ramirez [employer] Work Phone: [facility] 01-22-2023 15:36-0500 Body weight 126.1 kg Andrapaul Ramirez [employer] Work Phone: [facility] 01-22-2023 15:36-0500 Diastolic blood pressure 98 mm[Hg] Andra Ramirez [employer] Work Phone: [facility] 01-22-2023 15:36-0500 Heart rate 76 /min Andra Ramirez [employer] Work Phone: [facility] 01-22-2023 15:36-0500 Systolic blood pressure 168 mm[Hg] Andra Ramirez [employer] Work Phone: [facility] 2022 04:47-0400 Diastolic blood pressure 67 mm[Hg] MD Shea Beach Work Phone: [facility] 2022 04:47-0400 Heart rate 72 /min MD Shea Beach Work Phone: [facility] 2022 04:47-0400 Respiratory rate 20 /min MD Shea Beach Work Phone: [facility] 2022 04:47-0400 SaO2% (BldA) [Mass fraction] 96 % MD Shea Beach Work Phone: [facility] 2022 04:47-0400 Systolic blood pressure 147 mm[Hg] MD Shea Beach Work Phone: [facility] 11-09-2022 22:35-0400 Body height 167.64 cm MD Shea Beach Work Phone: [facility] 11-09-2022 22:35-0400 Body temperature 98 [degF] MD Shea Beach Work Phone: [facility] 11-09-2022 22:35-0400 Body weight 129.8 kg MD Shea Beach Work Phone: [facility] Encounters Encounter Date Encounter Type Care Provider Facility Start: 10-27-2024 End: 10-27-2024 Office outpatient visit 10 minutes Andra Ramirez APRN-SALESPERSON [employer] Work Phone: [facility] Comment on above: Hypotension due to d rugs (Primary Dx) Start: 09-24-2024 End: 09-24-2024 Office outpatient visit 25 minutes Leon Castro DO Work Phone: [facility] Comment on above: Sinusitis, unspecifi ed chronicity, unspecified location (Primary Dx); Chronic anticoagulation; Nasal congestion Start: 09-24-2024 End: 09-24-2024 ambulatory LEON CASTRO Not Available Start: 09-24-2024 End: 09-24-2024 Bamboo flowsheet Leon Castro DO Work Phone: [facility] Start: 09-24-2024 End: 09-24-2024 Bamboo flowsheet Leon Castro DO Work Phone: [facility] Start: 09-13-2024 End: 09-13-2024 ambulatory DAMION HAY [facility] Start: 09-13-2024 End: 09-13-2024 Subsequent hospital visit by physician [facility] Drawing Room [facility] Comment on above: Elevated PSA Start: 09-03-2024 End: 09-03-2024 Office outpatient visit 25 minutes Leon Castro DO Work Phone: [facility] Comment on above: Sinusitis, unspecifi ed chronicity, unspecified location (Primary Dx); Nasal congestion; Chronic anticoagulation Start: 09-03-2024 End: 09-03-2024 ambulatory LEON CASTRO Not Available Start: 09-03-2024 End: 09-03-2024 Bamboo flowsheet Leon Castro DO Work Phone: [facility] Start: 09-03-2024 End: 09-03-2024 Bamboo flowsheet Leon Castro DO Work Phone: [facility] Start: 08-20-2024 End: 08-20-2024 Office outpatient visit 25 minutes Leon Castro DO Work Phone: [facility] Comment on above: Sinusitis, unspecifi ed chronicity, unspecified location (Primary Dx); Nasal congestion; Chronic anticoagulation Start: 08-20-2024 End: 08-20-2024 ambulatory LEON CASTRO Not Available Start: 08-20-2024 End: 08-20-2024 Bamboo flowsheet Leon Castro DO Work Phone: [facility] Start: 08-20-2024 End: 08-20-2024 Bamboo flowsheet Leon Castro DO Work Phone: [facility] Start: 08-16-2024 End: 08-18-2024 ambulatory CUCA PAULINO [facility] Start: 08-16-2024 End: 08-18-2024 Subsequent hospital visit by physician [facility] Room 2 [facility] Comment on above: Renal cancer, left ( HCC); History of partial nephrectomy Arrived Start: 08-12-2024 End: 08-12-2024 ambulatory Shea Beach MD Work Phone: [facility] Work Phone: Start: 08-12-2024 End: 08-12-2024 Departed Referred Leon Castro DO -Lab [facility] [place] Work Phone: Start: 08-12-2024 End: 08-13-2024 External Result Encounter Leon Castro DO Work Phone: [facility] External Department Unsolicited Start: 08-12-2024 End: 08-13-2024 External Result Encounter Leon Castro DO Work Phone: [facility] External Department Unsolicited Start: 08-02-2024 End: 08-02-2024 Patient encounter procedure Leon Castro DO -Electrodiagnostics Work Phone: Start: 08-02-2024 End: 08-02-2024 ambulatory Shea Beach Facility:[facility] Start: 08-02-2024 Encounter for other preprocedural examination Leon Castro [facility] Start: 06-18-2024 End: 06-18-2024 Office outpatient visit 25 minutes Leon Castro DO Work Phone: [facility] Comment on above: Sinusitis, unspecifi ed chronicity, unspecified location (Primary Dx); Chronic anticoagulation; Nasal congestion Start: 06-18-2024 End: 06-18-2024 ambulatory LEON CASTRO Not Available Start: 06-18-2024 End: 06-18-2024 Bamboo flowsheet Leon Castro DO Work Phone: [facility] Start: 06-18-2024 End: 06-18-2024 Bamboo flowsheet Leon Delonte Biedsheliabach DO Work Phone: [facility] Start: 05-28-2024 End: 05-28-2024 Patient encounter procedure Shea Beach MD Work Phone: [facility] [place] Work Phone: Start: 05-28-2024 End: 05-28-2024 ambulatory Shea Beach MD Work Phone: [facility] Work Phone: Start: 05-18-2024 End: 05-18-2024 ambulatory LEON CASTRO Not Available Start: 05-13-2024 End: 05-13-2024 Office outpatient visit 25 minutes [facility] Comment on above: Chronic anticoagulat ion (Primary Dx); Sinusitis, unspecified chronicity, unspecified location; Nasal congestion Start: 05-13-2024 End: 05-13-2024 ambulatory LEON CASTRO Not Available Start: 05-13-2024 End: 05-13-2024 Bamboo flowsheet Leon Castro DO Work Phone: [facility] Start: 05-13-2024 End: 05-13-2024 Bamboo flowsheet Leon Castro DO Work Phone: [facility] Start: 05-06-2024 End: 05-06-2024 Office outpatient visit 25 minutes Mike Morelos DO Work Phone: [facility] Comment on above: Paroxysmal atrial fi brillation (Multi); Diabetes mellitus type II, non insulin dependent (Multi); Encounter for lipid screening for cardiovascular disease; Essential hypertension; BMI 36.0-36.9,adult; Hypertensive left ventricular hypertrophy, without heart failure; Never smoked tobacco Start: 04-09-2024 End: 04-09-2024 Office outpatient visit 25 minutes Leon Castro DO Work Phone: [facility] Comment on above: Sinusitis, unspecifi ed chronicity, unspecified location (Primary Dx); Nasal congestion; Chronic anticoagulation Start: 04-09-2024 End: 04-09-2024 ambulatory LEON CASTRO Not Available Start: 04-09-2024 End: 04-09-2024 Bamboo flowsheet Leon Castro DO Work Phone: [facility] Start: 04-09-2024 End: 04-09-2024 Bamboo flowsheet Leon Castro DO Work Phone: [facility] Start: 03-26-2024 End: 03-26-2024 Office outpatient visit 25 minutes Leon Castor DO Work Phone: [facility] Comment on above: Sinusitis, unspecifi ed chronicity, unspecified location (Primary Dx); Nasal congestion; Chronic anticoagulation Start: 03-26-2024 End: 03-26-2024 ambulatory LEON CASTRO Not Available Start: 03-26-2024 End: 03-26-2024 Bamboo flowsheet Leon Castro DO Work Phone: [facility] Start: 03-26-2024 End: 03-26-2024 Bamboo flowsheet Leon Castro DO Work Phone: [facility] Start: 03-18-2024 End: 03-18-2024 ambulatory LEON CASTRO Not Available Start: 03-05-2024 End: 03-05-2024 ambulatory LEON CASTRO Not Available Start: 03-05-2024 End: 03-05-2024 Bamboo flowsheet Leon Castro DO Work Phone: [facility] Start: 03-05-2024 End: 03-05-2024 Bamboo flowsheet Leon Castro DO Work Phone: [facility] Start: 02-13-2024 End: 02-13-2024 Office outpatient visit 25 minutes Leon Castro DO Work Phone: [facility] Comment on above: Sinusitis, unspecifi ed chronicity, unspecified location (Primary Dx); Nasal congestion; Chronic anticoagulation Start: 02-13-2024 End: 02-13-2024 ambulatory LEON CASTRO Not Available Start: 02-12-2024 End: 02-12-2024 Office outpatient visit 15 minutes Jany Navarrete MD Work Phone: [facility] Comment on above: Acute maxillary sinu sitis, recurrence not specified (Primary Dx) Start: 02-12-2024 End: 02-12-2024 ambulatory JANY NAVARRETE Not Available Start: 02-12-2024 End: 02-12-2024 Bamboo flowsalesia Navarrete MD Work Phone: [facility] Start: 02-12-2024 End: 02-12-2024 Bamboo flowsheet Jany Navarrete MD Work Phone: [facility] Start: 01-30-2024 End: 01-30-2024 Office outpatient [...] Orders Only Jany Navarrete MD Work Phone: [facility] Comment on above: Acute maxillary sinu [...] 25 minutes Rachel Mckeon NP Work Phone: [facility] Comment on above: TONY (obstructive sle ep apnea) (Primary Dx); Snoring; Daytime hypersomnolence Start: 11-12-2023 End: 11-12-2023 ambulatory RACHEL MCKEON Not Available Start: 11-12-2023 End: 11-12-2023 Bamboo flowsheet Rachel Clarknain DESIGN PROJECT MANAGER Work Phone: [facility] Start: 11-12-2023 End: 11-12-2023 Bamboo flowsheet Rachel Mckeon DESIGN PROJECT MANAGER Work Phone: [facility] Start: 10-31-2023 End: 10-31-2023 Office outpatient visit 25 minutes Mike Morelos DO Work Phone: [facility] Comment on above: Paroxysmal atrial fi brillation (Multi); Essential hypertension; Diabetes mellitus type II, non insulin dependent (Multi); Obstructive sleep apnea; BMI 34.0-34.9,adult; Never smoked tobacco; Hypertensive left ventricular hypertrophy, without heart failure Start: 10-01-2023 End: 10-01-2023 ambulatory Tariq GORDON Facility:[facility] Start: 10-01-2023 End: 10-01-2023 Patient encounter procedure Tariq GORDON [facility] Start: 09-17-2023 End: 09-17-2023 ambulatory Tariq Gordon [facility] Work Phone: Start: 09-17-2023 End: 09-17-2023 Departed Referred MD Tariq Gordon Work Phone: [facility] Start: 09-17-2023 End: 09-17-2023 ambulatory Tariq GORDON Facility:[id number] Start: 08-21-2023 End: 08-23-2023 Subsequent hospital visit by physician Damion Hay MD Work Phone: [facility] Comment on above: Renal cancer, left ( HCC) Start: 08-04-2023 End: 08-04-2023 ambulatory Tariq GORDON Facility:[facility] Start: 08-04-2023 End: 08-04-2023 Patient encounter procedure Tariq GORDON [facility] Start: 07-14-2023 End: 07-14-2023 ambulatory Shea Beach [facility] Start: 07-14-2023 End: 07-14-2023 Patient encounter procedure Tariq Bailey EVAN [facility] [place] Start: 06-30-2023 ambulatory Tariq GORDON Facility:[facility] [place] Start: 06-27-2023 ambulatory Tariq GORDON Facility:[facility] [place] Start: 04-23-2023 End: 04-23-2023 Office outpatient visit 10 minutes Andra Ramirez [employer] Work Phone: [facility] Comment on above: BMI 40.0-44.9, adult (CMS/HCC) (Primary Dx); Essential hypertension Start: 01-22-2023 End: 01-22-2023 Office outpatient visit 15 minutes Andra Ramirez CH[employer]MAN[employer] Work Phone: [facility] Comment on above: Essential hypertensi on (Primary Dx); Chest pain, unspecified type; Obstructive sleep apnea; Diabetes mellitus type II, non insulin dependent (CMS/HCC); Hypertensive left ventricular hypertrophy, without heart failure; BMI 40.0-44.9, adult (CMS/HCC) Start: 12-16-2022 End: 12-16-2022 Subsequent hospital visit by physician Gema [facility] Stress Room 1 [facility] Start: 2022 Evaluation and manag ement of inpatient MD Shea Beach Work Phone: [facility] Work Phone: Start: 2022 observation encounter MD Ewa Beach Work Phone: [facility] Work Phone: Start: 11-24-2021 End: 11-25-[address] SHEA [facility] Facility: Start: 11-07-2021 Encounter for genera l adult medical examination without abnormal findings DR SHEA [facility] Start: 11-03-2021 End: 11-03-[address] [...] Date Procedure Procedure Detail Performing Clinician Start: 08-16-2024 Radiologic exam ches t 2 views Cuca Paulino CH[employer]MAN - [employer] Work Phone: Start: 08-16-2024 Us retroperitoneal r eal time w/image limited Cuca Paulino CH[employer]MAN [employer] Work Phone: Start: 08-12-2024 AEROBIC CULTURE Leon Castro DO Work Phone: Start: 08-12-2024 ANAEROBIC CULTURE Leon Castro DO Work Phone: Start: 09-17-2023 Colonoscopy Mike cardenas DO Work Phone: Start: 09-17-2023 Colonoscopy Tariq COOK LL Start: 12-17-2022 Cv strs tst xers&/or rx cont ecg trcg only Mike Morelos DO Work Phone: Start: 03-24-[address] ANA [facility] Comment on above: Performed By: #### C MP #### [facility] [address] [place], [place] [address] Dr. Sunny Ortez Start: 12-17-2018 Antibody screen Comment on above: Performed By: #### T [id number] ####[facility] [id number] [place], [place] [phone] Partial nephrectomy Tariq GORDON Plan of Treatment Date Care Activity Detail Author Start: 2037 RSV High Risk: (Elderly (60+) or Population) (1 - 1-dose 75+ series) RSV High Risk: (Elderly (60+) or Population) (1 - 1-dose 75+ series) [facility] Start: 09-16-2033 Screening for malignant neoplasm of colon [facility] Start: 07-01-2025 Prostate specific antigen measurement Prostate Specific Antigen (PSA) Screening or Monitoring [facility] Start: 05-09-2025 End: 05-09-2025 Patient encounter procedure 05/09/2025 4:00 PM EDT Office Visit [facility] [address] [facility] [address] [place] [id number] Andra Ramirez, CHAINMAN-[employer]ERSON [employer] [address] [facility] [address] [place] [address] [facility] Start: 10-11-2024 COVID-19 Vaccine ( season) COVID-19 Vaccine ( season) [facility] Start: 10-11-2024 Influenza vaccination Influenza Vaccine (#1) [facility] [place] [facility] Start: 09-27-2024 End: 09-27-2024 Patient encounter procedure 09/27/2024 4:00 PM EDT Office Visit [facility] Part [address] [place] [id number] Moises Overton PA-C [address] [place] [address] [address] [place] [address] 1 week follow up [facility] Comment on above: 1 week follow up Start: 09-24-2024 End: 09-24-2024 Patient encounter procedure [facility] Comment on above: Arrived Start: 09-10-2024 Influenza vaccination Flu vaccine (#1) [facility] Start: 09-03-2024 End: 09-03-2024 Patient encounter procedure [facility] Comment on above: Arrived Start: 08-30-2024 End: 08-30-2024 Patient encounter procedure 08/30/2024 7:45 AM EDT Office Visit [address] [place] [phone] Damion Hay MD [address] [facility] [facility], [address] [place] [address] review psa done 07/01 and imaging scheduled for 08/03 (us and cxr) [facility] Comment on above: review psa done 07/01 and imaging sched ed for 08/03 (us and cxr) Start: 08-20-2024 End: 08-20-2024 Patient encounter procedure [facility] Comment on above: Arrived Start: 08-20-2024 Prostate specific antigen measurement Prostate Specific Antigen (PSA) Screening or Monitoring [facility] Start: 08-20-2024 Subsequent [facility] Start: 08-12-2024 Bronchial Culture Bronchial Culture [facility] Start: 08-12-2024 Microscopic observation [Identifier] in Unspecified specimen by Gram stain [facility] Start: 06-18-2024 End: 06-18-2024 Patient encounter procedure [facility] Comment on above: Arrived Start: 05-13-2024 End: 05-13-2024 Patient encounter procedure 05/13/2024 3:45 PM EDT Office Visit [facility] [address] [place] [phone] Leon Castro S, DO [address] [place] [address] Arrived [facility] [place] Comment on above: Arrived Start: 05-13-2024 End: 05-13-2025 CT Maxillofacial region WO and W contrast IV CT maxillofacial wo IV contrast Imaging Routine Sinusitis, unspecified chronicity, unspecified location Expected: 05/13/2024, Expires: 05/13/2025 [facility] Work Phone: Comment on above: Expected: 05/13/2024, Expires: Start: 05-07-2024 End: 05-07-2024 Patient encounter procedure 05/07/2024 10:45 AM EDT Office Visit [facility] [address] [place] [address] Leon Castro DO [address] [place] [address] [facility] Start: 05-06-2024 End: 05-06-2025 Alanine aminotransferase [Enzymatic activity/volume] in Serum or Plasma by With P-5'-P Alanine Aminotransferase Lab Routine Diabetes mellitus type II, non insulin dependent (Multi) Encounter for lipid screening for cardiovascular disease Hypertensive left ventricular hypertrophy, without heart failure Expected: 05/06/2024, Expires: 05/06/2025 [facility] Work Phone: Comment on above: Expected: 05/06/2024, Expires: Start: 05-06-2024 End: 05-06-2025 Aspartate aminotransferase [Enzymatic activity/volume] in Serum or Plasma by With P-5'-P Aspartate Aminotransferase Lab Routine Diabetes mellitus type II, non insulin dependent (Multi) Encounter for lipid screening for cardiovascular disease Hypertensive left ventricular hypertrophy, without heart failure Expected: 05/06/2024, Expires: 05/06/2025 [facility] Work Phone: Comment on above: Expected: 05/06/2024, Expires: Start: 05-06-2024 End: 05-06-2025 Basic metabolic 2000 panel - Serum or Plasma Basic Metabolic Panel Lab Routine Essential hypertension Expected: 05/06/2024, Expires: 05/06/2025 [facility] Work Phone: Comment on above: Expected: 05/06/2024, Expires: Start: 05-06-2024 End: 05-06-2025 Fasting glucose [Mass/volume] in Serum or Plasma Glucose, fasting Lab Routine Diabetes mellitus type II, non insulin dependent (Multi) Expected: 05/06/2024, Expires: 05/06/2025 [facility] Work Phone: Comment on above: Expected: 05/06/2024, Expires: Start: 05-06-2024 End: 05-06-2025 Hemoglobin A1c/Hemoglobin.total in Blood Hemoglobin A1C Lab Routine Diabetes mellitus type II, non insulin dependent (Multi) Expected: 05/06/2024, Expires: 05/06/2025 [facility] Service Area Work Phone: Comment on above: Expected: 05/06/2024, Expires: Start: 05-06-2024 End: 05-06-2025 Lipid 1996 panel - Serum or Plasma Lipid Panel Lab Routine Diabetes mellitus type II, non insulin dependent (Multi) Encounter for lipid screening for cardiovascular disease Hypertensive left ventricular hypertrophy, without heart failure Expected: 05/06/2024, Expires: 05/06/2025 [facility] Work Phone: Comment on above: Expected: 05/06/2024, Expires: Start: 05-06-2024 End: 05-06-2025 Thyrotropin [Units/volume] in Serum or Plasma Thyroid Stimulating Hormone Lab Routine Paroxysmal atrial fibrillation (Multi) Diabetes mellitus type II, non insulin dependent (Multi) Expected: 05/06/2024, Expires: 05/06/2025 [facility] Work Phone: Comment on above: Expected: 05/06/2024, Expires: Start: 05-06-2024 End: 05-06-2025 Thyroxine (T4) free [Mass/volume] in Serum or Plasma Thyroxine, Free Lab Routine Paroxysmal atrial fibrillation (Multi) Diabetes mellitus type II, non insulin dependent (Multi) Expected: 05/06/2024, Expires: 05/06/2025 [facility] Work Phone: Comment on above: Expected: 05/06/2024, Expires: Start: 04-09-2024 End: 04-09-2024 Patient encounter procedure [facility] Comment on above: Arrived Start: 03-26-2024 End: 03-26-2024 Patient encounter procedure 03/26/2024 3:45 PM EST Office Visit [facility] [address] [place] [phone] Leon Castro DO [address] [place] [address] Arrived [facility] Comment on above: Arrived Start: 03-05-2024 End: 03-05-2024 Patient encounter procedure [facility] Comment on above: Arrived Start: 02-18-2024 End: 02-18-2024 Patient encounter procedure 02/18/2024 3:20 PM EST Office Visit [facility] [address] [place] [address] Jany Navarrete MD [address] [place] [address] [facility] Start: 02-13-2024 End: 02-13-2024 Patient encounter procedure 02/13/2024 3:30 PM EST Office Visit [facility] [address] [place] [phone] Leon Castro DO [address] [place] [address] [facility] Start: 02-12-2024 End: 02-12-2024 Patient encounter procedure 02/12/2024 3:40 PM EST Office Visit [facility] [address] [place] [phone] Jany Navarrete MD [address] [place] [address] Arrived [facility] Comment on above: Arrived Start: 01-30-2024 End: 01-30-2024 Patient encounter procedure [facility] [place] Comment on above: Sinusitis, unspecified chronicity, unspe cified location; Nasal congestion Start: 01-20-2024 End: 01-20-2024 Patient encounter procedure 01/20/2024 3:30 PM EST Office Visit [facility] [address] [place] [address] Mike Morelos DO [address] [place] [address] [facility] Start: 01-12-2024 End: 01-12-2024 Patient encounter procedure 01/12/2024 4:00 PM EST Office Visit [facility] [address] [place] [phone] Jany Navarrete MD [address] [place] [address] Arrived [facility] Comment on above: Arrived Start: 01-12-2024 End: 01-11-2025 CT Maxillofacial region WO and W contrast IV CT SINUS WO IV CONTRAST Imaging Routine Acute maxillary sinusitis, recurrence not specified Expected: 01/12/2024, Expires: 01/11/2025 [facility] Work Phone: Comment on above: Expected: 01/12/2024, Expires: Start: 12-17-2023 End: 12-17-2023 Patient encounter procedure 12/17/2023 2:40 PM EST Office Visit [facility] [address] [place] [phone] Jany Navarrete MD [address] [place] [address] Arrived [facility] Comment on above: Arrived Start: 12-17-2023 End: 12-16-2024 CT Maxillofacial region WO and W contrast IV CT SINUS WO IV CONTRAST Imaging Routine Chronic rhinitis Expected: 12/17/2023, Expires: 12/16/2024 [facility] Work Phone: Comment on above: Expected: 12/17/2023, Expires: Start: 11-12-2023 End: 11-12-2023 Patient encounter procedure 11/12/2023 3:00 PM EDT Office Visit [facility] [address] [place] [address] Rachel Mckeon NP [address] [place], [place] Arrived [facility] [address] Comment on above: Arrived Start: 10-31-2023 End: 10-30-2024 Holter monitor study Holter Or Event Health Workers Cardiac Services Routine Paroxysmal atrial fibrillation (Multi) Expected: 10/31/2023 (Approximate), Expires: 10/30/2024 [facility] Service Area Work Phone: Comment on above: Expected: 10/31/2023 (Approximate), Expi res: 10/30/2024 Start: 10-12-2023 COVID-19 Vaccine ( season) COVID-19 Vaccine ( season) [facility] Start: 10-12-2023 COVID-19 Vaccine ( season) COVID-19 Vaccine ( season) [facility] Start: 10-12-2023 Influenza vaccination Influenza Vaccine (#1) [facility] Start: 09-17-2023 [facility] Start: 09-11-2023 Influenza vaccination Flu vaccine (#1) [facility] Start: 08-28-2023 End: 08-28-2023 Patient encounter procedure 08/28/2023 2:30 PM EDT Procedure visit [facility] [address] [place] [phone] Cuca Paulino, CH[employer] [address] [facility] [address] [place] [phone] 3 months, CT, labs prior [facility] Comment on above: 3 months, CT, labs prior Start: 03-25-2023 End: 03-25-2023 Patient encounter procedure 03/25/2023 3:30 PM EST Office Visit [facility] [address] [address] [place] [phone] Andra Ramirez, CH[employer]MAN[employer] [address] [place] [address] [facility] Start: 12-17-2022 End: 12-17-2022 Professional / ancillary services management [facility] Start: 2022 Respiratory Syncytial Virus (RSV) or age 60 yrs+ (1 - 1-dose 60+ series) Respiratory Syncytial Virus (RSV) or age 60 yrs+ (1 - 1-dose 60+ series) [facility] Start: 2022 Respiratory Syncytial Virus (RSV) or age 60 yrs+ (1 - Risk 60-74 years 1-dose series) Respiratory Syncytial Virus (RSV) or age 60 yrs+ (1 - Risk 60-74 years 1-dose series) [facility] Start: 2022 RSV High Risk: (Elderly (60+) or Population) (1 - Risk 60-74 years 1-dose series) RSV High Risk: (Elderly (60+) or Population) (1 - Risk 60-74 years 1-dose series) [facility] Start: 2022 RSV patients and/or patients aged 60+ years (1 - 1-dose 60+ series) RSV patients and/or patients aged 60+ years (1 - 1-dose 60+ series) [facility] Start: 2022 Blood chemistry [facility] Start: 2022 Hospital admission [facility] Start: 2022 End: 2022 [facility] Start: 2022 Plain chest X-ray XR chest 2V* [facility] Start: 2022 XR Chest 2 Views [facility] Start: 10-11-2022 Influenza vaccination Influenza Vaccine (#1) [facility] Start: 2012 Pneumococcal 50+ years Vaccine (1 of 1 - PCV) Pneumococcal 50+ years Vaccine (1 of 1 - PCV) [facility] Start: 2012 Prostate specific antigen measurement PSA Prostate Cancer Screening [facility] Start: 2012 Shingles vaccine (1 of 2) Shingles vaccine (1 of 2) [facility] Start: 2012 Zoster Vaccines (1 of 2) Zoster Vaccines (1 of 2) [facility] Start: 11-11-2007 Screening for malignant neoplasm of colon [facility] Start: 2002 Lipid panel Lipids [facility] Start: 1997 Diabetes screen Diabetes screen [facility] Start: 1984 DTaP/Tdap/Td Vaccines (1 - Tdap) DTaP/Tdap/Td Vaccines (1 - Tdap) [facility] Start: 1981 DTaP/Tdap/Td vaccine (1 - Tdap) DTaP/Tdap/Td vaccine (1 - Tdap) [facility] Start: 1981 Pneumococcal vaccination Pneumococcal Vaccine (1 of 2 - PCV) [facility] Start: 1981 Urine screening for protein Diabetes: Urine Protein Screening [facility] Start: 1980 Hepatitis C screening [facility] Start: 1977 HIV screening HIV screen [facility] Start: 1974 Depression Screen Depression Screen [facility] Start: 1972 Diabetic foot examination Diabetes: [...] 64 Years) (1 of 2 - PCV) [facility] Start: 11-11-1963 MMR Vaccines (1 of 1 - Standard series) MMR Vaccines (1 of 1 - Standard series) [facility] Start: 05-12-1963 COVID-19 Vaccine (#1) COVID-19 Vaccine (#1) [facility] Start: 1962 Hemoglobin A1c measurement Diabetes: Hemoglobin A1C [facility] Start: 1962 HIV screening HIV Screening [facility] Start: 1962 Lipid panel Lipid Panel [facility] Start: 1962 Screening for malignant neoplasm of colon [facility] Start: 1962 Urine screening for protein Diabetes: Urine Protein Screening [facility] Start: 1962 Yearly Adult Physical Yearly Adult Physical [facility] AEROBIC CULTURE AEROBIC CULTURE Lab STAT 08/12/2024 1:38 PM EDT [facility] Work Phone: ANAEROBIC CULTURE ANAEROBIC CULT URE Lab STAT 08/12/2024 1:38 PM EDT [facility] Anion gap measurement [facility] Bacteria identified in Bronchial specimen by Aerobe culture [facility] Calculated LDL cholesterol level [facility] Cholesterol.total/Ch oles terol in HDL [Mass Ratio] in Serum or Plasma [facility] End: 08-21-2023 CT Abdomen and Pelvis W contrast IV [facility] Comment on above: 1 Occurrences starting 08/21/2023 until 08/21/2023 Glucose measurement estimated from glycated hemoglobin [facility] NM Heart Perfusion W stress and W radionuclide IV Nuclear Stress Test Cardiac Nuclear Medicine Routine Chest pain, unspecified type 12/16/2022 8:08 AM EST [facility] Service Area Work Phone: End: 09-13-2024 Pathology study Surgical Pathology Lab Routine Elevated PSA 1 Occurrences starting 09/13/2024 until 09/13/2024 [employer] Comment on above: 1 Occurrences starting 09/13/2024 until 09/13/2024 End: 09-13-2024 SURGICAL PATHOLOGY REPORT SURGICAL PATHOLOGY REPORT Lab Routine Once for 1 Occurrences starting 09/13/2024 until 09/13/2024 [facility] [employer] Comment on above: Once for 1 Occurrences starting 09/14/19 until 09/13/2024 VLDL cholesterol measurement [facility] Payers Date Payer Category Payer Unknown [id number] 2023 Self-pay 2023 Unknown [id number] 2022 [facility] Care (Private) [facility] [id number] 2022 Private Health Insurance [id number] .[id number]. [id number] 2022 Unknown [id number]. 1.13.647.2. 7.3.516531.315 1962 Unknown [id number] 2.16.840.1.065488.3.579.2. 593 1962 Unknown [id number] 2.16.840.1.954211.3.579.2. 593 1962 Unknown [id number] 2.16.840.1.040967.3.579.2. 593 1962 Unknown [id number] 2.16.840.1.228630.3.579.2. 593 1962 Unknown [id number] 2.16.840.1.428117.3.579.2. 593 1962 Unknown [id number] 2.16.840.1.287366.3.579.2. 593 1962 Unknown [id number] 2.16.840.1.985492.3.579.2. 593 1962 Unknown [id number] 2.16.840.1.560332.3.579.2. 593 1962 Unknown [id number] 2.16.840.1.317991.3.579.2. 593 1962 Unknown [id number] 2.16.840.1.297621.3.579.2. 593 1962 Unknown [id number] 2.16.840.1.555519.3.579.2. 727 1962 Unknown [id number] 2.16.840.1.517549.3.579.2. 727 1962 Unknown [id number] 2.16.840.1.569939.3.579.2. 727 1962 Unknown [id number] 2.16.840.1.862962.3.579.2. 727 1962 Unknown [id number] 2.16.840.1.826121.3.579.2. 173 1962 Unknown [id number] 2.16.840.1.850578.3.579.2. 173 1962 Unknown [id number] 2.16.840.1.028983.3.579.2. 173 1962 Unknown [id number] 2.16.840.1.778003.3.579.2. 1258 1962 Unknown [id number] 2.16.840.1.994339.3.579.2. 1258 1962 Unknown [id number] 2.16.840.1.272323.3.579.2. 1258 1962 Unknown [id number] 2.16.840.1.387583.3.579.2. 1258 1962 Unknown [id number] 2.16.840.1.245495.3.579.2. 1258 1962 Unknown [id number] 2.16.840.1.393088.3.579.2. 1258 1962 Unknown [id number] 2.16.840.1.976112.3.579.2. 1258 1962 Unknown [id number] 2.16.840.1.018007.3.579.2. 1258 1962 Unknown [id number] 2.16.840.1.040564.3.579.2. 1258 1962 Unknown [id number] 2.16.840.1.328669.3.579.2. 1258 1962 Unknown [id number] 2.16.840.1.185912.3.579.2. 1258 1962 Unknown [id number] 2.16.840.1.429036.3.579.2. 1258 1962 Unknown [id number] 2.16.840.1.836138.3.579.2. 1258 1962 Unknown [id number] 2.16.840.1.944551.3.579.2. 1258 1962 Unknown [id number] 2.16.840.1.553295.3.579.2. 1258 1962 Unknown [id number] 2.16.840.1.943283.3.579.2. 1258 1962 Unknown [id number] 2.16.840.1.285766.3.579.2. 1259 1959 Unknown [id number] 1959 Unknown [id number] Unknown Carlos BC/BS [id number] Unknown [id number] 2.16.840.1.114303.3.579.2. 531 Unknown [id number] 2.16.840.1.702056.3.579.2. 531 Unknown [id number] 2.16.840.1.974204.3.579.2. 531 Unknown [id number] 2.16.840.1.272286.3.579.2. 531 Social History Date Type Detail Facility Start: 2022 End: 01-22-2023 Tobacco smoking status NHIS Never smoked tobacco (finding) [facility] Start: 1960 Sex Assigned At Male [facility] Tobacco smoking stat us MNIS Tobacco smoking consumption unknown [facility] Start: 12-16-2022 Gender identity Identifies as male gender (finding) [facility] Work Phone: Start: 12-16-2022 Sexual orientation Heterosexual (finding) [facility] Work Phone: Start: 12-06-2022 End: 05-06-2024 Exposure to SARS-CoV-2 (event) Not sure [facility] Start: 01-22-2023 End: 11-12-2023 Tobacco use and exposure Smokeless tobacco non-user [facility] Work Phone: Start: 01-22-2023 End: 09-24-2024 Alcohol intake Lifetime non-drinker (finding) [facility] Work Phone: Start: 01-22-2023 End: 10-27-2024 History of Social function [facility] Work Phone: Start: 01-22-2023 End: 10-27-2024 Tobacco use panel [facility] Start: 11-13-2022 [facility] [place] Start: 1960 Sex assigned at Not on file [facility] Start: 10-31-2023 End: 10-27-2024 Alcoholic beverage intake Current drinker of alcohol (finding) [facility] Work Phone: Start: 05-08-2023 End: 05-29-2024 Sex Male (finding) [facility] History of tobacco use Passive smoker [facility] Medical Equipment Procedure Code Equipment Code Equipment Original Text Equi pment Identifier Dates 1 each by In Vit ro route daily As needed. [id number] Functional Status Date Assessment Result Facility 10-01-2023 Functional Status N/A [facility] 08-04-2023 Functional Status N/A [facility] 07-14-2023 Functional Status N/A [facility] [place] Clinical Notes 01-22-2023 to 10-27-2024 Andra Ramirez, CH[employer] - 10/27/2024 4:00 PM EDTPatient InstructionsPaul Delonte [place], DO - 09/24/2024 4:00 PM EDTPaul Delonte [place], DO - 09/03/2024 3:45 PM EDTPatient InstructionsPatient Instructions Note Date & Type Note Facility 10-27-2024 History of Present illness Narrative Subjective: Clarence Flores is a 63 y.o. male with hypotension. He presents to the office today ambulatory steady gait. Last evaluated in clinic by Dr. Morelos April 2024. He has continued to lose weight on Ozempic. He sent some records into the office last month showing a blood pressure of 82/43. Dr. Morelos reduce valsartan to 160 mg daily, patient has been compliant with those changes. Presents to the office today where he reports improvement in the dizziness and lightheadedness that he was experiencing with a low blood pressure but continues to have some orthostatic concerns. He recently started Flomax. Sometimes when [...] kg (241 lb 9.6 oz) BMI 39.00 kg/m Appearance alert, well appearing, and in [...] and to continue with following modifications: - Stop spironolactone 2. Check your blood pressure at home - if you notice top number > 140 or bottom number > 90 please let me know 3. Return for follow-up; in the interim, contact the office if new symptoms arise. DESIGN PROJECT MANAGER as scheduled Andra Ramirez MSN, [employer], PMHNP-[facility] [place], [place] Please excuse any errors in grammar or translation related to this dictation. Voice recognition software was utilized to prepare this document. documented in this encounter [facility] Work Phone: 10-27-2024 Instructions SUGEY Tabares - 10/27/2024 4:00 PM EDT [...] and to continue with following modifications: - Stop spironolactone 2. Check your blood pressure at home - if you notice top number > 140 or bottom number > 90 please let me know 3. Return for follow-up; in the interim, contact the office if new symptoms arise. DESIGN PROJECT MANAGER as scheduled documented in this encounter [facility] Work Phone: 09-24-2024 History of Present illness Narrative Subjective Patient ID: Clarence Flores is a 63 y.o. male who presents for Post-op (2 week alhaji Septo / FESS) HPI This patient presents for recheck. He is status post bilateral image guided functional endoscopic sinus surgery and septoplasty/turbinate reduction. Does describeGradual improvement of condition. Nasal congestion is improved. Sense of smell is improved. Presents today for follow-up Review of Systems Patient doing very well with saline irrigations. Not having any difficulties with discolored drainage. Denies any mid facial pressure or aching. Able to blow his nose relatively well. The rest of his review of systems is negative/unchanged Objective ENT Physical Exam General Examination: General overview: Normal, age-appropriate, no evidence of distress, sounds less nasal today Head: Normocephalic, atraumatic Eyes: Pupils are equally round and reactive to light and accommodation, extraocular muscles are intact Ears: External ear architecture within normal limits, ear canals are patent, tympanic membranes are intact. Nose: External nose unremarkable, nares patent, septum intact, continued improvement of congestion. Oral cavity: Mucosa moist, [...] visit: Sinusitis, unspecified chronicity, unspecified location Comments: Patient seems to be healing up very well postoperatively, recheck as needed Chronic anticoagulation Comments: Continue Eliquis, follow up with family physician and subspecialist Nasal congestion Comments: Much improved documented in this encounter [facility] 09-03-2024 History of Present illness Narrative Subjective Patient ID: Clarence Flores is a 63 y.o. male who presents for Post-op (2 week alhaji Septo / FESS) HPI This patient presents for recheck of bilateral image guided functional endoscopic sinus surgery with endoscopic septoplasty. Does describe some discomfort and congestion. Review of Systems Patient not having any fever. Continues to have nasal congestion. Some crusting. Has been using saline spray as well as decongestant spray. The rest of his review of [...] External nose unremarkable, nares patent, septum intact, bilateral crusting is noted. As part of a scheduled procedure, bilateral debridement is undertaken Debridement/biopsy of sinus Method: After spraying the patient's nose with anesthetic/decongestant, the endoscope was utilized to visualize the operated cavity. Small amounts of granulation tissue, clot, and sequestra were gradually removed from the cavity. Debridement was carried out until all easily removed material was removed. The middle meatus on the right still has significant congestion. On the left, sinuses are widely patent and no evidence of infection. Edema is noted. Oral cavity: Mucosa moist, no evidence of [...] visit: Sinusitis, unspecified chronicity, unspecified location Comments: Gradually improving, continue saline irrigations. Saline nasal spray throughout the day Nasal congestion Comments: Patient may gradually start blowing his nose. We will see him back in 3 weeks for recheck. Chronic anticoagulation Comments: Continue Eliquis, follow up with family physician and subspecialist Patient will try to go without his CPAP for 1 more week. documented in this encounter [facility] 08-20-2024 History of Present illness Narrative Subjective Patient ID: Clarence Flores is a 63 y.o. male who presents for Post-op (Post op Septo / Turbs / FESS) HPI This patient presents status post bilateral image guided functional endoscopic sinus surgery with endoscopic septoplasty. Does describe some discomfort and congestion. Review of Systems Patient not having any fever. Believes his nasal congestion is improved for the past 2 days. Has been using saline spray as well as decongestant spray. The rest of his review of [...] External nose unremarkable, nares patent, septum intact, bilateral crusting is noted. As part of a scheduled procedure, bilateral debridement is undertaken Debridement/biopsy of sinus Method: After spraying the patient's nose with anesthetic/decongestant, the endoscope was utilized to visualize the operated cavity. Small amounts of granulation tissue, clot, and sequestra were gradually removed from the cavity. Debridement was carried out until all easily removed material was removed. Oral cavity: Mucosa moist, no evidence of [...] visit: Sinusitis, unspecified chronicity, unspecified location Comments: patient is doing relatively well postoperatively. Patient will start doing saline irrigations. We will see him back in 2 weeks Nasal congestion Comments: improved since surgery, we will follow for continued improvement Chronic anticoagulation Comments: patient will continue his Eliquis, follow up with family physician and subspecialist Patient will try to go without his CPAP for 1 more week. documented in this encounter [facility] 06-18-2024 History of Present illness Narrative Subjective Patient [...] turbinate enlargement, and bilateral pansinusitis, very limited improvement from prior evaluation Oral cavity: Mucosa moist, no [...] the eye, scar tissue, recurrent disease, serous disability, and . Turbinate reduction is recommended. All of the risks, aspects, options, indications of this procedure are reviewed in detail. The risks include but are not limited to bleeding, infection, poor wound healing, increased nasal dysfunction, nerve injury, increased /decreased sense of smell, serous disability, and . documented in this encounter [facility] 05-13-2024 History of Present illness Narrative Subjective Patient ID: Clarence Flores is a 63 y.o. male who presents for Sinusitis (Alhaji / out of xhance) HPI This patient presents for recheck of [...] of mucopurulent drainage. Nasal ventilation is reduced. Oral cavity: Mucosa moist, no evidence of [...] orders for this visit: Chronic anticoagulation Comments: continue Eliquis, follow up with family physician and subspecialist Sinusitis, unspecified chronicity, unspecified location Comments: Recommend repeat CT scan of the sinuses to look for interval improvement while on Xhance Orders: - CT maxillofacial wo IV contrast; Future Nasal congestion Comments: patient will continue steroid nasal spray. Is imperative that a comparative study be completed at this time to look for any evidence of improvement or worsening of his CT findings compared to prior imaging. Determine whether or not he is in need of surgical intervention. documented in this encounter [facility] 05-06-2024 History of Present illness Narrative Chief Complaint Patient presents with Follow-up 6 month for essential hypertension Subjective Clarence Flores is a 63 y.o. male 63-year-old gentleman here for 6-month follow-up for continued cardiovascular surveillance. He is doing well, he denies hospitalizations or tachyarrhythmias or palpitations, syncope however he has had some orthostasis recently when laying his new basement floor and getting up. We continue to follow and treat him for paroxysmal atrial fibrillation, he has a history of diabetes and hypertension and moderate obesity he has had an overall 70 pound weight loss on dedicated intervention with Ozempic and exercise. He has had no recent labs performed Recommendations, proceed with lipid panel, chemistry, thyroid panel and fasting glucose and A1c; continue current therapies however will titrate his amlodipine down to 5 mg, follow-up in 1 year with nurse practitioner Review of Systems Neurological: Positive for light-headedness. All other systems reviewed and are negative. Vitals: 05/06/24 1015 BP: 110/60 BP Location: Left arm Patient Position: Sitting Pulse: 80 Weight: 103 kg (227 lb) Height: 1.676 m (5' 6 ) [...] known allergies. Current Medications Current Outpatient Medications: apixaban (Eliquis) 5 mg tablet, Take 1 tablet (5 mg) by mouth 2 times a day., Disp: , Rfl: azelastine (Astelin) 137 mcg (0.1 %) nasal spray, Administer 2 sprays into each nostril 2 times a day. DIRECTED, Disp: , Rfl: dilTIAZem CD (Cardizem CD) 120 mg 24 hr capsule, Take 1 capsule (120 mg) by mouth if needed (if a fib lasts longer than 1-5 mins)., Disp: , Rfl: doxazosin (Cardura) 4 mg tablet, Take 1 tablet (4 mg) by mouth 2 times a day. Take half a tablet by mouth every morning and one tablet by mouth every evening, Disp: , Rfl: Jardiance 10 mg, Take 1 tablet (10 mg) by mouth once daily., Disp: , Rfl: metoprolol succinate XL (Toprol-XL) 25 mg 24 hr tablet, Take 1.5 tablets daily (37.5mg) daily, Disp: 135 tablet, Rfl: 3 Ozempic 0.25 mg or 0.5 mg (2 mg/3 mL) pen injector, , Disp: , Rfl: spironolactone (Aldactone) 25 mg tablet, Take 1 tablet (25 mg) by mouth once daily., Disp: 30 tablet, Rfl: 11 valsartan (Diovan) 320 mg tablet, Take 1 tablet (320 mg) by mouth once daily., Disp: 90 tablet, Rfl: 3 Assessment/Plan 1. Paroxysmal atrial fibrillation (Multi) 2. Diabetes mellitus type II, non insulin dependent (Multi) 3. Encounter for lipid screening for cardiovascular disease 4. Essential hypertension Follow Up In Cardiology 5. BMI 36.0-36.9,adult 6. Hypertensive left ventricular hypertrophy, without heart failure 7. Never smoked tobacco Scribe Attestation By signing my name below, IMarixa LPN, Scribe attest that this documentation has been [...] discussion and plan. documented in this encounter [facility] Work Phone: 05-06-2024 Instructions Marixa Nix LPN - 05/06/2024 9:40 AM EDT Please bring all medicines, vitamins, and herbal supplements with you when you come to the office. Prescriptions will not be filled unless you are compliant with your follow up appointments or have a follow up appointment scheduled as per instruction of your physician. Refills should be requested at the time of your visit. BMI was above normal measurement. Current weight: 103 kg (227 lb) Weight change since last visit (-) denotes wt loss 12 lbs Weight loss needed to achieve BMI 25: 72.4 Lbs Weight loss needed to achieve BMI 30: 41.5 Lbs Provided instructions on dietary changes Provided instructions on exercise. documented in this encounter [facility] Work Phone: 04-09-2024 History of Present illness Narrative Subjective Patient ID: Clarence Flores is a 63 y.o. male who presents for Sinusitis (2 week alhaji ) HPI This patient presents for recheck of chronic sinusitis, nasal congestion, chronic anticoagulation. Does describe interval improvement of his symptoms while using X luis. Review of Systems Patient not having any fever or pain. Does continue to have postnasal drainage. Describes his CPAP machine working better. Has been having episodic coughing episodes.The rest of his review of systems is negative Objective ENT Physical Exam General Examination: General overview: Normal, age-appropriate, no evidence of distress, sounds less congested Head: Normocephalic, atraumatic Eyes: Pupils are equally round and reactive to light and accommodation, extraocular muscles are intact Ears: External ear architecture within normal limits, ear canals are patent, tympanic membranes are intact. Nose: External nose unremarkable, nares patent, nasal septal deviation is noted. The congestion has been reduced approximately 50%. Much better nasal ventilation. Oral cavity: Mucosa moist, no evidence of ulcer, mass, or lesion Throat: Clear , mild clear posterior drainage Neck/thyroid: Neck supple, full range of motion, [...] visit: Sinusitis, unspecified chronicity, unspecified location Comments: Patient will continue current medication Nasal congestion Comments: improved, we will observe for continued improvement Chronic anticoagulation Comments: continue Eliquis, follow up with family physician and subspecialist documented in this encounter [facility] 03-26-2024 History of Present illness Narrative Subjective Patient ID: Clarence Flores is a 63 y.o. male who presents for Sinusitis (3 week alhaji ) HPI This patient presents for recheck of chronic sinusitis, nasal congestion, and chronic anticoagulation. Patient does describe no significant improvement since his last visit. Presents today after a course of antibiotic and saline spray. Presents after repeat CT scan Review of Systems Patient does describes intervals of improved sense of smell and less congestion. Has finished a 2nd week of Augmentin Also continues to use saline nasal spray. The rest of his review of systems is unchanged. Allergies as of 03/05/2024 - Reviewed 03/05/2024 Allergen Reaction Noted Nitroglycerin 11/26/2018 Past Medical History: Diagnosis Date Asymptomatic hypertension ([facility]) Atrial fibrillation ([facility]) BMI 34.0-34.9,adult 10/31/2023 BMI 40.0-44.9, adult ([facility]) 01/23/2023 Diabetes mellitus type II, non insulin dependent ([facility]) 04/09/2021 Diabetes type 2, controlled ([facility]) Elevated PSA 05/22/2023 Essential hypertension ([facility]) 11/24/2021 Hyperplastic rectal polyp 01/29/2024 Hypertensive left ventricular hypertrophy, without heart failure ([facility]) 01/22/2023 Kidney disease Left renal mass 01/17/2023 Never smoked tobacco 10/31/2023 Obstructive sleep apnea 01/22/2023 Paroxysmal atrial fibrillation (CMS/HCC) 10/31/2023 Positive fecal occult blood test 01/29/2024 Sigmoid diverticulosis 01/29/2024 Current Outpatient Medications: azelastine (Astelin) 0.1 % nasal spray, Administer [...] tablet by mouth Daily, Disp: , Rfl: Trcdaowampo-Vipnhlgli-Omonjj (Trelegy Ellipta) 100-62.5-25 MCG/ACT aerosol powder , [...] nares patent, septum intact, improvement of congestion. Still some evidence of thick mucus. Review of his repeat CT scan does reveal evidence of chronic pansinusitis with interval worsening Oral cavity: Mucosa moist, no evidence of [...] visit: Sinusitis, unspecified chronicity, unspecified location Comments: We try this patient on Xhance to help decrease nasal and sinus inflammatory change. We will see him back in 2 weeks Nasal congestion Comments: Continue saline nasal spray Chronic anticoagulation Comments: Patient will continue using Eliquis, follow-up with family physician and subspecialist documented in this encounter [facility] 02-13-2024 History of Present illness Narrative Subjective [...] Past Medical History: Diagnosis Date Asymptomatic hypertension ([facility]) Atrial fibrillation ([facility]) BMI 34.0-34.9,adult 10/31/2023 BMI 40.0-44.9, adult ([facility]) 01/23/2023 Diabetes mellitus type II, non insulin dependent ([facility]) 04/09/2021 Diabetes type 2, controlled ([facility]) Elevated PSA 05/22/2023 Essential hypertension ([facility]) 11/24/2021 Hyperplastic rectal polyp 01/29/2024 Hypertensive left ventricular hypertrophy, without heart failure ([facility]) 01/22/2023 Kidney disease Left renal mass 01/17/2023 Never smoked tobacco 10/31/2023 Obstructive sleep apnea 01/22/2023 Paroxysmal atrial fibrillation ([facility]/HCC) 10/31/2023 Positive fecal occult blood test 01/29/2024 [...] tablet by mouth Daily, Disp: , Rfl: Btatksxzwvp-Gbfdbesjx-Ptbprl (Trelegy Ellipta) 100-62.5-25 MCG/ACT aerosol powder , [...] physician and subspecialist documented in this encounter [facility] 02-12-2024 History of Present illness Narrative Clarence [...] as needed basis. documented in this encounter [facility] 01-30-2024 History of Present illness Narrative Subjective [...] Past Medical History: Diagnosis Date Asymptomatic hypertension (CMS/HCC) Atrial fibrillation (CMS/HCC) BMI 34.0-34.9,adult 10/31/2023 BMI 40.0-44.9, adult ([facility]) 01/23/2023 Diabetes mellitus type II, non insulin dependent ([facility]) 04/09/2021 Diabetes type 2, controlled ([facility]) Elevated PSA 05/22/2023 Essential hypertension ([facility]) 11/24/2021 Hyperplastic rectal polyp 01/29/2024 Hypertensive left ventricular hypertrophy, without heart failure ([facility]) 01/22/2023 Kidney disease Left renal mass 01/17/2023 Never smoked tobacco 10/31/2023 Obstructive sleep apnea 01/22/2023 Paroxysmal atrial fibrillation ([facility]) 10/31/2023 Positive fecal occult blood test 01/29/2024 [...] tablet by mouth Daily, Disp: , Rfl: Ouynlxgjptb-Fdhzvicng-Qbkrut (Trelegy Ellipta) 100-62.5-25 MCG/ACT aerosol powder , [...] referral to ENT documented in this encounter [facility] 01-23-2024 History of Present illness Narrative I called the patient and discuss the results and sent in Augmentin for him. documented in this encounter [facility] 01-12-2024 History of Present illness Narrative Clarence [...] post nasal drip. documented in this encounter [facility] 12-17-2023 History of Present illness Narrative Clarence [...] and fall. 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 If the combination of azelastine nasal spray [...] should problems arise. documented in this encounter [facility] 10-31-2023 History of Present illness Narrative Subjective Clarence Flores is a 62 y.o. male Chief Complaint Follow-up 62-year-old gentleman here for follow-up for the first time to see me since he was last admitted to Located within [facility] 1 year ago for accelerated [...] discussion and plan. documented in this encounter [facility] Work Phone: 09-20-2024 Instructions Sita Uribe RN - 10/31/2023 9:00 [...] exercise. Stay on eliquis Get 14 day campus monitor Only use cardizem as needed is a fib lasts longer than 1-5 mins documented in this encounter [facility] Work Phone: 08-04-2023 Note Patient: CLARENCE FLORES Age: 62 years Sex: Male : 1960 Associated Diagnoses: None Author: Tariq GORDON MD Subjective no changes to H & P [facility] Comment on above: Result Comment: Elec tronically [...] disease: Father and Sister. Ovarian cancer: Mother. [facility] Comment on above: Result Comment: Elec tronically [...] sodium restriction. Annual follow-up Andra Ramirez MSN, SUMMERSALESPERSON NECKTIES, PMHNP-[facility] Please excuse any errors in [...] Plan note Associated Problem(s): BMI 40.0-44.9, adult (CMS/[facility]) Recently started treatment with Ozempic Weight [...] Diabetes mellitus type II, non insulin dependent ([facility]) On ARB No statin Unknown hemoglobin A1c [facility] Work Phone: 01-23-2023 Evaluation + Plan note Associated Problem(s): Hypertensive left ventricular hypertrophy, without heart failure November 2022 TTE LVEF greater than 70% LVH moderate MR trace [facility] Work Phone: 01-23-2023 Evaluation + Plan note Associated Problem(s): Essential hypertension He has been compliant with addition of doxazosin and valsartan since discharge. Reports PCP stopped hydrochlorothiazide. Remains elevated in office today [facility] Work Phone: 01-23-2023 Evaluation + Plan note Associated Problem(s): Cardiac and Vasculature November 2022 hospitalization for chest pressure, ruled out ACS. Inpatient echo EF greater than 70%, no wall motion abnormality. Subsequent December 2022 perfusion study no ischemia, no infarct. Completed 4 METS. EF 59%. [facility] Work Phone: 01-22-2023 History of Present illness Narrative Chief Complaint Doing fine Reason for Visit Patient presents to the office today for outpatient follow-up for hospital follow up. Patient was recently hospitalized at [facility]. The patient was seen in Cardiology consult with subsequent cardiovascular management by [facility]. Hospitalization records have been reviewed. Reason for Cardiology Consultation: Chest pressure, accelerated hypertension Consulting Regulatory And Compliance Technician: Dr. Morelos Cardiovascular testing: Echocardiogram, outpatient perfusion study Changes to cardiovascular medical regimen at time of discharge: Added Cardura 8 mg, valsartan 320 mg, hydrochlorothiazide Discharge disposition: Home This is initial in clinic evaluation at [facility] Presents today ambulatory with steady gait. Accompanied [...] Remains compliant with CPAP BMI 40.0-44.9, adult ([facility]) Recently started treatment with Ozempic Weight [...] contact the office if new symptoms arise. 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 DESIGN PROJECT MANAGER after 2 months documented in this encounter [facility] Work Phone: Evaluation + Plan note Future Appointments Appointment Date:08/04/2023 08:30:00 AM Scheduled Provider: Location:[facility] Surgical Services Appointment Type:Surgery FT [facility] General Surgery [place] Evaluation note Diagnosis Onset Date Chest pain acute Hypertensive urgency acute [facility] Work Phone: Evaluation note* Diagnosis Essential hypertension- Primary Unspecified essential hypertension Chest pain, unspecified type Obstructive sleep apnea Obstructive sleep apnea (adult) (pediatric) Diabetes mellitus type II, non insulin dependent ([facility]/HCC) Type II or unspecified type diabetes mellitus without mention of complication, not stated as uncontrolled Hypertensive left ventricular hypertrophy, without heart failure BMI 40.0-44.9, adult ([facility]/HCC) documented in this encounter [facility] Work Phone: Evaluation note* Diagnosis BMI 40.0-44.9, adult ([facility]/HCC)- Primary Essential hypertension Unspecified essential hypertension documented in this encounter [facility] Work Phone: Evaluation noteNo assessment information available [facility] Work Phone: Evaluation note* Diagnosis TONY (obstructive sleep apnea)- Primary Obstructive sleep apnea (adult) (pediatric) Snoring Other dyspnea and respiratory abnormality Daytime hypersomnolence documented in this encounter [facility]* Diagnosis Dyspnea on exertion- Primary Other dyspnea and respiratory abnormality Chronic rhinitis documented in this encounter [facility] note* Diagnosis Cough variant asthma ([facility])- Primary Cough variant asthma Acute maxillary sinusitis, recurrence not specified documented in this encounter [facility] HealthcareEvaluation note* Diagnosis Essential hypertension- Primary Unspecified [...] without heart failure documented in this encounter [facility] Work Phone: Evaluation note* Diagnosis Acute maxillary sinusitis, recurrence not specified- Primary documented in this encounter [facility] HealthcareEvaluation note* Diagnosis Chronic anticoagulation- Primary Encounter for long-term (current) use of 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 Sinusitis, unspecified chronicity, unspecified location Nasal congestion Other diseases of nasal cavity and sinuses documented in this encounter [facility] HealthcareEvaluation note* Diagnosis Acute maxillary sinusitis, recurrence not specified- Primary documented in this encounter [facility] note* Diagnosis Sinusitis, unspecified chronicity, unspecified location- Primary Nasal congestion Other diseases of nasal cavity and sinuses Chronic anticoagulation Encounter for long-term (current) use of 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 documented in this encounter [facility] HealthcareEvaluation note* Diagnosis Renal cancer, left (HCC) [facility] Diagnosis Sinusitis, unspecified chronicity, unspecified location- Primary Nasal congestion Other diseases of nasal cavity and sinuses Chronic anticoagulation Encounter for long-term (current) use of 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 documented in this encounter [facility] note* Diagnosis Essential hypertension- Primary Unspecified [...] hypertension Paroxysmal atrial fibrillation (Multi) Atrial fibrillation Diabetes mellitus type II, non insulin dependent (Multi) Type II or unspecified type diabetes mellitus without mention of complication, not stated as uncontrolled Encounter for lipid screening for cardiovascular disease Essential hypertension Unspecified essential hypertension BMI 36.0-36.9,adult Hypertensive left ventricular hypertrophy, without heart failure Never smoked tobacco documented in this encounter [facility] Work Phone: Evaluation note* Diagnosis Chronic anticoagulation- Primary Encounter for long-term (current) use of 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 Sinusitis, unspecified chronicity, unspecified location Nasal congestion Other diseases of nasal cavity and sinuses documented in this encounter [facility] note* Diagnosis Sinusitis, unspecified chronicity, unspecified location- Primary Chronic anticoagulation Encounter for long-term (current) use of 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 Nasal congestion Other diseases of nasal cavity and sinuses documented in this encounter [facility] note* Diagnosis Renal cancer, left (HCC) History of partial nephrectomy Personal history of surgery to other organs documented in this encounter [facility]* Diagnosis Sinusitis, unspecified chronicity, unspecified location- Primary Nasal congestion Other diseases of nasal cavity and sinuses Chronic anticoagulation Encounter for long-term (current) use of 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 documented in this encounter [facility]* Diagnosis Sinusitis, unspecified chronicity, unspecified location- Primary Nasal congestion Other diseases of nasal cavity and sinuses Chronic anticoagulation Encounter for long-term (current) use of 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 documented in this encounter [facility]* Diagnosis Elevated PSA Elevated prostate specific antigen (PSA) documented in this encounter [facility]* Diagnosis Sinusitis, unspecified chronicity, unspecified location- Primary Chronic anticoagulation Encounter for long-term (current) use of 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 Nasal congestion Other diseases of nasal cavity and sinuses documented in this encounter [facility]* Diagnosis Essential hypertension- Primary Unspecified [...] (Multi)- Primary Essential hypertension Unspecified essential hypertension Hypotension due to drugs- Primary Other iatrogenic hypotension documented in this encounter [facility] Work Phone: Hospital course Narrative No data available for this section [facility] [place] [facility] Discharge instructions No data available for this section [facility] [place] Progress note No data available for this section [facility] [place] Reason for referral (narrative)* Consultation (Routine) - Authorized Specialty Diagnoses / Procedures Referred By Contac t Referred To Contact Cardiology Diagnoses Essential hypertension Procedures Follow Up In Cardiology Andra Ramirez APRN-CNP [address] [facility] [address], [address] [address] Referral ID Status Reason Start Date Expiration Date V isits Requested Visits Authorized [id number] Authorized 01/22/2023 01/22/2024 1 1 [facility] Work Phone: Resyze for referral (narrative)* Consultation (Routine) - Authorized Specialty Diagnoses / Procedures Referred By Contac t Referred To Contact Cardiology Diagnoses Essential hypertension Procedures Follow Up In Cardiology Andra Ramirez APRN-CNP [address] [facility] [address], [address] [address] Mike oMrelos DO [address] [facility] 2, [address] [address] Referral ID Status Reason Start Date Expiration Date V isits Requested Visits Authorized [id number] Authorized 04/23/2023 04/22/2024 1 1 [facility] Work Phone: Reason for referral (narrative)No reason for [facility] Reason for visit Narrative* Imaging (Routine) - Not Required - RTA Specialty Diagnoses / Procedures Referred By Contsharmin t Referred To Contact Radiology Diagnoses Renal cancer, left (HCC) History of partial nephrectomy Procedures US RENAL LIMITED Cuca Paulino, CHAINMAN - SALESPERSON NECKTIES [address] [facility] [address] [place] [address] Phone: tel: fax: Referral ID Status Reason Start Date Expiration Date V isits Requested Visits Authorized [id number] Not Required - RTA 08/27/2024 08/27/2025 1 1 [facility] Summary Purpose Family History No Family History [...] 2022 1:53am Hospital Course Note HNO ID: [id number] Author: Delonte pham (Jose) Hrnchar Service: Urology [...] Chest pain Hypertensive urgency Chief Complaint Unknown Chief Complaint Admit Date May 28, 2024 9:1 5am Chief Complaint Admit Date May 28, 2024 9:1 5am z01.818 J32.9 August 02, 2024 4:09 pm Reason for Referral Specialty Diagnoses / Procedures Referred By Contac t Referred To Contact Cardiology Diagnoses Paroxysmal atrial fibrillation (Multi) Procedures Holter Or Event Health Workers Mike Morelos, [address] [place] [address] 2, [address] [address] Referral ID Status Reason Start Date Expiration Date V isits Requested Visits Authorized [id number] Pending Review 10/31/2023 10/30/2024 1 1 Specialty Diagnoses / Procedures Referred By Contac t Referred To Contact Cardiology Diagnoses Essential hypertension Procedures Follow Up In Cardiology Mike Morelos DO [address] [facility] 2, [address] [address] Mike Morelos, [address] [place] [address] 2, [address] [address] Referral ID Status Reason Start Date Expiration Date V isits Requested Visits Authorized [id number] Authorized 10/31/2023 10/30/2024 1 1 Additional Source Comments (unrecognized sect ion and content) No Status Records FoundNo Status Records FoundNo Status Records FoundNo Status Records FoundNo Status Records FoundNo Status Records Found INFORMATION SOURCE (unrecogn ized section and content) DATE CREATED AUTHOR 06/26/2019 [facility] DATE CREATED AUTHOR AUTHOR'S ORGANIZ ATION 12/03/2021 [facility] DATE CREATED AUTHOR AUTHOR'S ORGANIZ ATION 10/03/2023 [facility] DATE CREATED AUTHOR AUTHOR'S ORGANIZ ATION 08/31/2024 [facility] DATE CREATED AUTHOR AUTHOR'S ORGANIZ ATION 09/15/2024 [facility] DATE CREATED AUTHOR AUTHOR'S ORGANIZ ATION 09/26/2024 [facility] EPIC Care Teams (unrecognized sec tion and content) Team Status: Active Member Role Status Dates Shea Beach MD Primary Care Provider Active Team Status: Inactive Member Role Status Dates Shea Beach MD Primary Care Provider Active Start: May 28, 2024 End: May 28, 2024 Alistair Morelos DO Attending Provider Active S tart: May 28, 2024 End: May 28, 2024 Team Status: Active Member Role Status Dates Shea Beach MD Primary Care Provider Active Damien Roth DO Emergency Provider Active Derick Gomes MD Admit Provider, Attending Provi jefferson Active Chief Digital Media Officer Relationship Specialty Start Date End Date Shea Beach MD [address] [place] [address] PCP - General Family Medicine 11/13/22 Chief Digital Media Officer Relationship Specialty Start Date End Date Shea Beach MD [address] [facility] [place] [address] PCP - General Family Medicine 11/13/22 Chief Digital Media Officer Relationship Specialty Start Date End Date Shea Beach MD [facility]5 [facility] [place] [address] PCP - General Family Medicine 11/13/22 Chief Digital Media Officer Relationship Specialty Start Date End Date Shea Beach MD [address] [place] [address] PCP - General Family Medicine 11/13/22 Team Status: Inactive Member Role Status Dates Tariq Gordon MD [facility] Attending Provider Active Start: September 17, 2023 End: September 17, 2023 Chief Digital Media Officer Relationship Specialty Start Date End Date Shea Beach MD [address] [place] [address] PCP - General Family Medicine 11/13/22 Chief Digital Media Officer Relationship Specialty Start Date End Date Shea Beach MD [address] [place] [address] PCP - General Family Medicine 01/30/24 Chief Digital Media Officer Relationship Specialty Start Date End Date Shea Beach MD [address] [place] [address] PCP - General Family Medicine 01/30/24 Chief Digital Media Officer Relationship Specialty Start Date End Date Shea Beach MD [address] [place] [address] PCP - General Family Medicine 01/30/24 Chief Digital Media Officer Relationship Specialty Start Date End Date Shea Beach MD [address] [place] [address] PCP - General Family Medicine 01/30/24 Rachel Mckeon NP [address] Nurse Practitioner Neurology 02/13/24 Leon Castro DO [address] [place] [address] Otolaryngology 02/13/24 Chief Digital Media Officer Relationship Specialty Start Date End Date Shea Beach MD [address] [place] [address] PCP - General Family Medicine 05/23/23 Chief Digital Media Officer Relationship Specialty Start Date End Date Shea Beach MD [address] [place] [address] PCP - General Family Medicine 01/30/24 Rachel Mckeon NP [address] Nurse Practitioner Neurology 02/13/24 Leon Castro DO [address] [place] [address] Otolaryngology 02/13/24 Chief Digital Media Officer Relationship Specialty Start Date End Date Shea Beach MD [address] [place] [address] PCP - General Family Medicine 01/30/24 Rachel Mckeon NP [address] Nurse Practitioner Neurology 02/13/24 Leon Castro DO [address] [place] [address] Otolaryngology 02/13/24 Chief Digital Media Officer Relationship Specialty Start Date End Date Shea Beach MD [address] [facility] [place] [address] PCP - General Family Medicine 11/13/22 Chief Digital Media Officer Relationship Specialty Start Date End Date Shea Beach MD [address] [facility] [place] [address] PCP - General Family Medicine 01/30/24 Rachel Mckeon NP [address] Nurse Practitioner Neurology 02/13/24 Leon Castro DO [address] [place] [address] Otolaryngology 02/13/24 Chief Digital Media Officer Relationship Specialty Start Date End Date Shea Beach MD PCP - General Family Medicine 01/30/24 Rachel Mckeon NP [address] Nurse Practitioner Neurology 02/13/24 Leon Castro DO [address] [place] [address] Otolaryngology 02/13/24 Chief Digital Media Officer Relationship Specialty Start Date End Date Shea Beach MD PCP - General Family Medicine 01/30/24 Rachel Mckeon NP [address] Nurse Practitioner Neurology 02/13/24 Leon Castro DO [address] [place] [address] Otolaryngology 02/13/24 Team Status: Inactive Member Role Status Dates Shea Beach MD Primary Care Provider Active Start: August 02, 2024 End: August 02, 2024 Leon Castro DO Attending Provider Active S tart: August 02, 2024 End: August 02, 2024 Team Status: Inactive Member Role Status Dates Leon Castro DO Attending Provider Active S tart: August 12, 2024 End: August 12, 2024 Chief Digital Media Officer Relationship Specialty Start Date End Date Shea Beach MD PCP - General Family Medicine 01/30/24 Rachel Mckeon NP Nurse Practitioner Neurology 02/13/24 Leon Castro DO [address] [place] [address] Otolaryngology 02/13/24 Chief Digital Media Officer Relationship Specialty Start Date End Date Shea Beach MD [facility] [place] [address] PCP - General Family Medicine 05/23/23 Chief Digital Media Officer Relationship Specialty Start Date End Date Shea Beach MD [address] [place] [address] PCP - General Family Medicine 05/23/23 Chief Digital Media Officer Relationship Specialty Start Date End Date Shea Beach MD PCP - General Family Medicine 01/30/24 Rachel Mckeon NP Nurse Practitioner Neurology 02/13/24 Leon Castro DO [address] [place] [address] Otolaryngology 02/13/24 Chief Digital Media Officer Relationship Specialty Start Date End Date Shea Beach MD PCP - General Family Medicine 01/30/24 Rachel Mckeon NP Nurse Practitioner Neurology 02/13/24 Leon Castro DO [address] [place] [address] Otolaryngology 02/13/24 Chief Digital Media Officer Relationship Specialty Start Date End Date Shea Beach MD PCP - General Family Medicine 01/30/24 Rachel Mckeon NP Nurse Practitioner Neurology 02/13/24 Leon Castro DO [address] [place] [address] Otolaryngology 02/13/24 Chief Digital Media Officer Relationship Specialty Start Date End Date Shea Beach MD PCP - General Family Medicine 01/30/24 Rachel Mckeon NP Nurse Practitioner Neurology 02/13/24 Leon Castro, [address] [place] [address] Otolaryngology 02/13/24 Chief Digital Media Officer Relationship Specialty Start Date End Date Shea Beach MD [address] [place] [address] PCP - General Family Medicine 05/23/23 Chief Digital Media Officer Relationship Specialty Start Date End Date Shea Beach MD PCP - General Family Medicine 01/30/24 Rachel Mckeon NP Nurse Practitioner Neurology 02/13/24 Leon Castro DO [address] [place] [address] Otolaryngology 02/13/24 Chief Digital Media Officer Relationship Specialty Start Date End Date Shea Beach MD PCP - General Family Medicine 01/30/24 Rachel Mckeon NP Nurse Practitioner Neurology 02/13/24 Leon Catsro DO [address] [place] [address] Otolaryngology 02/13/24 Chief Digital Media Officer Relationship Specialty Start Date End Date Shea Beahc MD [address] [place] [address] PCP - General Family Medicine 11/13/22 Goals (unrecognized section and content) Goals may be documented in a n alternate section No data available for this section No data available for this sectionGoals may be documented in an alternate section No data available for this sectionGoals may be documented in an alternate sectionGoals may be documented in an alternate section Reason for Visit (unrecogniz ed section and content) Specialty Diagnoses / Procedures Referred By Contac t Referred To Contact Radiology Diagnoses Chest pain, unspecified type Procedures Nuclear Stress Test CHG MYOCARDIAL SPECT MULTIPLE STUDIES CHG MYOCARDIAL SPECT SINGLE STUDY AT REST OR STRESS [place] CV STRS TST XERS&/OR RX CONT ECG W/O I&R [place] CV STRS TST XERS&/OR RX CONT ECG I&R ONLY [place] CV STRS TST XERS&/OR RX CONT ECG TRCG ONLY [place] CV STRS TST XERS&/OR RX CONT ECG W/SI&R Mike Morelos, DO [address], [address] [place] [address] Referral ID Status Reason Start Date Expiration Date V isits Requested Visits Authorized [id number] Authorized 11/13/2022 05/12/2023 5 5 Reason Comments Shortness of Breath Chest pressure Specialty Diagnoses / Procedures Referred By Contac t Referred To Contact Cardiology Diagnoses Chest pain, unspecified type Procedures Follow Up In Cardiology Mike Morelos, DO [address], [address] [place] [address] Mike Morelos, DO [address], [address] [place] [address] Referral ID Status Reason Start Date Expiration Date V isits Requested Visits Authorized [id number] Authorized 01/06/2023 01/06/2024 1 1 Reason Comments Follow-up 1 month Specialty Diagnoses / Procedures Referred By Contac t Referred To Contact Cardiology Diagnoses Essential hypertension Procedures Follow Up In Cardiology Andra Ramirez, CHAINMAN-SALESPERSON NECKTIES [address], [address] [place] [address] Referral ID Status Reason Start Date Expiration Date V isits Requested Visits Authorized [id number] Authorized 03/25/2023 03/24/2024 1 1 Reason Comments Sleep Apnea Reason Comments new patient C/O sinus pain and p ressure since June has been on antibiotics helped for the time and then came back. Reason Comments new patient No surgeries; no hos pital stays. Still having problems with taste and smell Reason Comments Follow-up Per Dr. Halie Pritchard (a-fib) Reason Comments Nasal Congestion New Patient : nasal congestion / referred for sinusitis / CT done Specialty Diagnoses / Procedures Referred By Callum t Referred To Contact Otolaryngology Diagnoses Sinusitis, unspecified chronicity, unspecified location Nasal congestion Procedures [place] OFFICE/OUTPATIENT NEW HIGH MDM 60 MINUTES Rachel Mckeon, DENIS [address] [place] [address] Phone: tel: fax: Leon Castro, DO [address] [place] [address] Phone: tel: fax: Referral ID Status Reason Start Date Expiration Date V isits Requested Visits Authorized [id number] Closed Specialty Services Required 11/20/2023 05/18/2024 1 1 Reason Comments Nasal Congestion 2 week alhaji Specialty Diagnoses / Procedures Referred By Callum t Referred To Contact Radiology Diagnoses Renal cancer, left (HCC) Procedures CT ABDOMEN PELVIS W IV CONTRAST Additional Contrast? None CT ABDOMEN PELVIS W WO CONTRAST Additional Contrast? None Damion Hay MD [address] [facility], [address] [place] [address] Referral ID Status Reason Start Date Expiration Date Visits Re quested Visits Authorized [id number] Closed 08/13/2023 09/27/2023 1 [address] results Reason Comments Sinusitis 2 week alhaji Reason Comments Follow-up 6 month for essentia l hypertension Specialty Diagnoses / Procedures [facility] Referred To Contact Cardiology Diagnoses Essential hypertension Procedures Follow Up In Cardiology Mike Morelos, DO [address] [facility] 2, [facility] [address] [place] [address] Phone: tel: fax: Mike Morelos, DO [address] [facility] 2, [address] [place] [address] Phone: tel: fax: Referral ID Status Reason Start Date Expiration Date V isits Requested Visits Authorized [id number] Authorized 10/31/2023 10/30/2024 1 1 Reason Comments Sinusitis Alhaji / out of xhance Reason Comments Post-op Post op Septo / Turb s / FESS Reason Comments Post-op 2 week alhaji Septo / FESS Reason Comments Blood Pressure Check Patient here for bl ood pressure check, c/o occasional lightheadedness if he stands up to quickly. FOR RECORDS PERTAINING TO PATIENTS WHO ARE [...] BE BASED ON THE PRIMARY CLINICAL RECORDS. [facility] [employer] [facility] provides no warranty or guarantee of the accuracy or completeness of information in this document.
--- NOTE | 2024-11-05 18:02 | PC.NURSE ---
called Acular eye drops into [facility] per request d/t electronic system being down.
== END 2024-11-05 12:39 | disposition home or self-care (01) ==
PROVIDERS: Emergency Provider Emergency Medicine; PCP Family Medicine
DX: T65.891A Toxic effect of other specified substances, accidental (unintentional), initial encounter (principal); H10.213 Acute toxic conjunctivitis, bilateral; T20.50XA Corrosion of first degree of head, face, and neck, unspecified site, initial encounter
CPT/HCPCS: 99283; 99284

== ENCOUNTER 2024-12-21 06:10 | Outpatient (OUT) | payer OTHER, SELFPAY ==
--- OUTSIDE RECORDS SUMMARY | 2023-09-24 10:30 | XMS_ITS ---
Author Organization [facility] in [place] Address [address] [place] [address] Care Team Providers Care Food Critic Name Role Phone Kev Singer Primary Care Provider [phone] REASON FOR VISIT 3mon f/u bhs Encounters Encounter Location Date Provider Diagnosis [address] [address] 09/24/2023 Kev Singer Plan Of Treatment No Information Progress Notes * Clarence CHASEDOB:1960 ([age] yo M)Acc No.[id number]:09/24/2023 UNLOCKED PROGRESS NOTE Progress Note Patient: Clarence LAWSON :?Stalin QUINTERO), MDDOB:1960???Age: 62 Y???Sex:MaleDate:4Phone:[phone]:[address] [id number] Subjective: * Chief Complaints: * 1 . 3mon f/u bhs. * Medical History: Objective: * Vitals: Assessment: Plan: * Treatment: * * Electronic signature of Kev Singer MD, [id number] on 12/21/2024 at 06:14 AM EST Sign off status: PendingVisit Status:?CANC (Cancelled) * Provider: Mariela Singer MD (TTC) Date: 0 09/24/2023 Generated for Printing/Faxing/eTransmitting on:?12/21/2024 06:14 AM EST
--- OUTSIDE RECORDS SUMMARY | 2024-12-17 12:18 | XMS_ITS ---
Author Organization [facility] [place] Address [address] [place] [address] Care Team Providers Care Paper Tube Cutter Name Role Phone Kev Singer Primary Care Provider REASON FOR VISIT A1C Encounters Encounter Location Date Provider Diagnosis [address] [address] 12/17/2024 Kev Singer Diabetes mellitus E1 1.9 and Essential (primary) hypertension I10 Assessments Encounter Date Diagnosis (ICD Code) Assessment Notes Treatment Notes Treatment Clinical Notes Section Notes 12/17/2024 Diabetes mellitus (ICD-10 - E11. 9) 12/17/2024Essential (primary) hypertension (ICD-10 - I10) Plan Of Treatment Pending Test Test Name Order Date CMP - Comprehensive Metabolic Panel 08/2024 GLYCOHEMOGLOBIN A1C 12/17/2024 Progress Notes * Clarence CHASEDOB:1960 ([age] yo M)Acc No.[id number]:12/17/2024 Patient:?Clarence CHASE :1960???Age:64 Y???Sex:MalePhone:[phone] Address:[place] [address] Subjective: * Chief Complaints: * A 1C * Medical History: * Surgical History: * Hospitalization/Major Diagno stic Procedure: * Medications: Objective: * Vitals: * Physical Examination: ??? Assessment: * Assessment: 1.?Diabetes mellitus - E11.9 (Primary)???2.?Essential (primary) hypertension - I10??? Plan: * Treatment: ?LAB: GLYCOHEMOGLOBIN A1C2.?Essential (primary) hypertension?LAB: CMP - Comprehensive Metabolic Panel * Procedure Codes: * true * Date:?Generated for Printing/Faxing/eTransmitting on:?12/21/2024 06:14 AM EST
--- OUTSIDE RECORDS SUMMARY | 2024-12-21 06:14 | XMS_ITS | Patient Health Record ---
Author Organization [facility] in [place] Address [address] [place] [address] Care Team Providers Care Birthing Nurse Name Role Phone Kev Singer Primary Care Provider Allergies No Known Allergies Results Component Value Reference Range Notes Surgical Pathology ([facility]) ( Not yet reviewed by provider) Interpretation: Performing Lab: Notes/Report: jennifer H: [place] [address] B. LLB One core, 1.7 cm in length. Entirely 1cs. K: RA [address] [facility]. [place], [place] [address] -- Diagnosis -- Alona Orourke/mj:09/13/2024 B: LLB J. RLM One core, 1.1 cm in length. Entirely 1cs. H. RLB One core, 1.5 cm in length. Entirely 1cs. E. LA One core, 0.8 cm in length. Entirely 1cs. G. PROSTATE, RB, NEEDLE CORE BIOPSY: Benign prostatic tissue. Electronically Signed Out G: RB Path Number: [id number] C: LM F. LLA One core, 1.2 cm in length. Entirely 1cs. F. PROSTATE, LLA, NEEDLE CORE BIOPSY: Benign prostatic tissue. C. PROSTATE, LM, NEEDLE CORE BIOPSY: Benign prostatic tissue. Source of Specimen CONSULTING PATHOLOGISTS [facility] [place] km/09/14/2024 K. RA One core, 1.4 cm in length. Entirely 1cs. [facility] SURGICAL PATHOLOGY CONSULTATION J. PROSTATE, RLM, NEEDLE CORE BIOPSY: Benign prostatic tissue. E. PROSTATE, LA, NEEDLE CORE BIOPSY: Benign prostatic tissue. Pre-Op Diagnosis: ELEVATED PSA E: FAROOQ CHASE, PROSTATE BIOPSIES All specimens are received in formalin A: LB L. RLA One core, 1.4 cm in length. Entirely 1cs. jj mj I. RM One core, 1.5 cm in length. Entirely 1[address]. [place] [address] D. PROSTATE, LLM, NEEDLE CORE BIOPSY: Benign prostatic tissue. H. PROSTATE, RLB, NEEDLE CORE BIOPSY: Benign prostatic tissue. Operative Findings: PROSTATE BIOPSY X 12 F: LLA L. PROSTATE, RLA, NEEDLE CORE BIOPSY: Benign prostatic tissue. I. PROSTATE, RM, NEEDLE CORE BIOPSY: Benign prostatic tissue. Patient Name: BOB CHASE LM One core, 1.8 cm in length. Entirely 1cs. I: RM Interpretation Performed at [place] [address] Microscopic Description A. PROSTATE, LB, NEEDLE CORE BIOPSY: Benign prostatic tissue. on sponges and are cote-white needle core biopsies less than < 0.1 cm Med Rec: [id number] J: RLM Clinical Information D. LLM One core, 1.3 cm in length. Entirely 1cs. D: LLM in diameter with the following lengths: A-L. Microscopic examination performed. L: RLA G. RB One core, 1.7 cm in length. Entirely 1cs. A. LB One core, 1.5 cm in length. Entirely 1cs. Gross Description Processing Lab: [address], ANATOMIC PATHOLOGY B. PROSTATE, LLB, NEEDLE CORE BIOPSY: Benign prostatic tissue. Rylee Prado M.D. Alicia. PROSTATE, RA, NEEDLE CORE BIOPSY: Benign prostatic tissue. TSH Reviewed date:03/27/2024 02:19:00 PM Interpretation: Performing Lab: Notes/Report: [facility] ,Thyroid Stimulating Hormone1.2150.358-3.740 uIU/mLPerforming Lab:see noteML - [facility] LBT4 Reviewed date:03/27/2024 02:19:00 PM Interpretation: Performing Lab: Notes/Report: [facility] ,T4 Thyroxine8.204.50-12.10 ug/dLPerforming Lab:see noteML - [facility] LBPSA Reviewed date:03/27/2024 02:19:00 PM Interpretation: Performing Lab: Notes/Report: [facility] ,Prostate Specific Antigen Dx6.19<=4.00 ng/mLPerforming Lab:see noteML - [facility] LBPROF 14(COMP METB) Reviewed date:03/27/2024 02:19:00 PM Interpretation: Performing Lab: Notes/Report: [facility] ,Nakbpd811953-658 mmol/LPotassium4.63.5-5.1 mmol/EWrwcpufi36571-955 mmol/LCarbon Vzmhhbr85.721.0-32.0 mmol/LAnion Gap11.7Wggitkt40332-379 mg/dLBlood Urea Wvfotyui52.07.0-18.0 mg/dLCreatinine1.570.70-1.30 mg/dLEstimated GFR ( Ermgzck05>=60 mL/min/1.73m 2Estimated GFR (Non- Ame45>=60 mL/min/1.73m 2 BUN Creatinine Ratio14.1Hfjmupk0.28.5-10.1 mg/dLBilirubin Total0.60.2-1.0 mg/dL Aspartate Amino Lrlievdviqf5000-41 U/LAlanine Orxmruwejhclbxux3334-95 U/L Alkaline Kqgvfyefzzo2672-915 U/LTotal Protein7.46.4-8.2 g/dLAlbumin Level3.63.4- 5.0 g/dLGlobulin3.8Albumin Globulin Ratio0.9Performing Lab:see noteML - [facility] LBLIPID PROFILE Reviewed date:03/27/2024 02:19:00 PM Interpretation: Performing Lab: Notes/Report: [facility] ,Xsxakibeucqya45<=150 mg/hJCnesswlahnk791<=200 mg/dLHDL Zmuzvcxoaxd4454-11 mg/dL > or =60 mg/dl - LOW CARDIOVASCULAR RISK <40 mg/dl - HIGH CARDIOVASCULAR RISK LDL Cholesterol Uwivsughbe92.0 >190 mg/dl VERY HIGH 100-129 mg/dl NEAR OR ABOVE OPTIMAL 160-189 mg/dl HIGH <100 mg/dl OPTIMAL 130-159 mg/dl BORDERLINE HIGH VLDL YMMGHEYXPIG43.8Chol HDL Ratio3.6 4.4 - 7.1 AVERAGE RISK >11.0 HIGH RISK 3.3 - 4.4 LOW RISK 7.1 - 11.0 MODERATE RISK Performing Lab:see noteML - [facility] LBGLYCOHEMOGLOBIN A1C Reviewed date:03/27/2024 02:19:00 PM Interpretation: Performing Lab: Notes/Report: [facility] ,Glycohemoglobin A1C5.44.5-6.2 % ACTION SUGGESTED ADA RECOMMENDED LIMIT 4.0 - 6.0 > 7.0 ADA THERAPEUTIC TARGET < 7.0 Estimated Average Vtezlny770Uwwmsaclee Lab:see note - [facility] LB FREE T3 Reviewed date:03/27/2024 02:19:00 PM Interpretation: Performing Lab: Notes/Report: [facility] ,Free T32.462.18-3.98 pg/mLPerforming Lab:see note - [facility] LB CBC AUTO DIFF Reviewed date:03/27/2024 02:19:00 PM Interpretation: Performing Lab: Notes/Report: [facility] ,White Blood Count12.24.0-11.0 10 3/uLRed Blood Count4.924.70-6.10 10 6/uL Tpezgnlkdi26.014.0-18.0 g/tPFbvkzsgzkn14.242.0-54.0 %Mean Corpuscular Krsvhc82.8 80.0-94.0 fLMean Corpuscular Rmrlbsnlux57.525.9-34.0 pgMean Corpuscular HGB Conc 33.929.9-35.2 g/dLRed Cell Distribution Width13.211.0-15.0 %Platelet Xhzoq792 150-450 10 3/uLMean Platelet Volume8.59.5-13.5 fLNeutrophils Percent Auto73.5 43.0-75.0 %Lymphocytes Percent Auto13.320.5-60.0 %Monocytes Percent Auto9.01.7- 12.0 %Eosinophils Percent Auto2.80.9-7.0 %Basophils Percent Auto0.80.2-2.0 % Immature Granulocytes Pct Auto0.60.0-0.5 %Neutrophils Absolute Auto8.91.4-6.5 10 3/uLLymphocytes Absolute Auto1.61.2-3.8 10 3/uLMonocytes Absolute Auto1.10.3-0.8 10 3/uLEosinophils Absolute Auto0.30.0-0.7 10 3/uLBasophils Absolute Auto0.10.0- 0.1 10 3/uLImmature Granulocytes Abs Auto0.070.00-0.03 10 3/uLPerforming Lab:see noteML - [facility] LBPSA Reviewed date:07/01/2024 08:25:05 PM Interpretation: Performing Lab: Notes/Report: [facility] ,Prostate Specific Antigen Dx5.90<=4.00 ng/mLPerforming Lab:see note - [facility] LBPROF CHEM 8 (BAS METB) Reviewed date:07/31/2024 01:35:15 PM Interpretation: Performing Lab: Notes/Report: [facility] ,Kgyluy922197-798 mmol/LPotassium4.43.5-5.1 mmol/OTeitlwdo56493-792 mmol/LCarbon Hwncazz98.521.0-32.0 mmol/LAnion Gap11.9Hetlene85973-681 mg/dLBlood Urea Locwjaaz52.07.0-18.0 mg/dLCreatinine1.490.70-1.30 mg/dLEstimated GFR ( Xuitxjl55>=60 mL/min/1.73m 2Estimated GFR (Non- Ame48>=60 mL/min/1.73m 2 BUN Creatinine Ratio14.6Bmuwjkn6.38.5-10.1 mg/dLPerforming Lab:see note - [facility] LBCBC AUTO DIFF Reviewed date:07/31/2024 01:35:15 PM Interpretation: Performing Lab: Notes/Report: [facility] ,White Blood Count10.24.0-11.0 10 3/uLRed Blood Count5.124.70-6.10 10 6/uL Xibzrhhxde62.914.0-18.0 g/pLAwvthwxmny76.642.0-54.0 %Mean Corpuscular Ymkjcu73.1 80.0-94.0 fLMean Corpuscular Nogkeznhba91.125.9-34.0 pgMean Corpuscular HGB Conc 34.929.9-35.2 g/dLRed Cell Distribution Width13.211.0-15.0 %Platelet Ggiul205 150-450 10 3/uLMean Platelet Volume9.09.5-13.5 fLNeutrophils Percent Auto67.1 43.0-75.0 %Lymphocytes Percent Auto18.420.5-60.0 %Monocytes Percent Auto10.61.7- 12.0 %Eosinophils Percent Auto2.90.9-7.0 %Basophils Percent Auto0.70.2-2.0 % Immature Granulocytes Pct Auto0.30.0-0.5 %Neutrophils Absolute Auto6.81.4-6.5 10 3/uLLymphocytes Absolute Auto1.91.2-3.8 10 3/uLMonocytes Absolute Auto1.10.3-0.8 10 3/uLEosinophils Absolute Auto0.30.0-0.7 10 3/uLBasophils Absolute Auto0.10.0- 0.1 10 3/uLImmature Granulocytes Abs Auto0.030.00-0.03 10 3/uLPerforming Lab:see noteML - [facility] Reason For Referral No Information Medications Medication SIG (Take, Route, Frequency, Duration) Notes Start Date End Date Status Metoprolol Succinate ER 25 MG 1 1/2 tabs Orally twice a day ActiveMontelukast Sodium 10 MGTAKE 1 TABLET BY MOUTH EVERY DAY FOR 30 DAYS; Duration: 90 daysActiveJardiance 10 mgTAKE 1 TABLET DAILYActiveTriamcinolone Acetonide 0.1 %1 application Externally bid5ActiveTamsulosin HCl 0.4 MG 1 capsule Orally Once a dayActiveTrue Metrix Blood Glucose Test -USE 1 STRIP VIA METER ONCE A DAY; Duration: ActiveOzempic (2 MG/DOSE) 8 MG/3MLINJECT 2 MG UNDER THE SKIN WEEKLY weeklyActiveAzelastine HCl 0.05 %1 drop into affected eye Ophthalmic Daily; Duration: 90 days3ActiveValsartan 160 MGTAKE 1 TABLETS BY MOUTH EVERY DAY FOR 30 DAYS; Duration: 90 daysActiveSingulair 10 MG1 tablet Orally Once a day; Duration: 30 day(s)07/23/2024ActiveDoxazosin Mesylate 4 MG2 tablets Orally Once a day; Duration: 90 daysActiveEliquis 5 MG1 tablet Orally twice a day; Duration: 90 days09/19/2023ctiveCetirizine HCl 10 MG1 tablet Orally Once a day; Duration: 30 days09/02/2023ctivedilTIAZem HCl ER Coated Beads 120 mgTAKE 1 CAPSULE DAILYActive Social History Tobacco Use: Social History Observation Description Date Details (start date - stop date) Never Smoker NA - NA Tobacco Use/Smoking Question Answer Notes Patient is a nonsmoker Alcohol Screen (Audit-C) Question Answer Notes Did you have a drink containing alcohol in the p ast year? Yes How often did you have 6 or more drinks on one occasion in the past year?Never (0 point)How many drinks did you have on a typical day when you were drinking in the past year?1 or 2 drinks (0 point)Ksfqhp6FjelwjqnioaedzQdljbmyhZUUFV-F (Standard) Question Answer Notes Did you have a drink containing alcohol in the p ast year? No Pvuvvd0SgorzlvivqqblrNjynoohb Problems Problem Type SNOMED Code ICD Code Onset Dates Problem Status W/U Status Risk Notes Problem Essential hypertension (64343659 ) Essential (primary) hypertension (I10) ActiveconfirmedProblemType 2 diabetes mellitus with other specified complication (E11.69)ActiveconfirmedProblemAtrial fibrillation (15001079)Unspecified atrial fibrillation (I48.91)ActiveconfirmedProblemCardiac arrhythmia (375362498)Other specified cardiac arrhythmias (I49.8)ActiveconfirmedProblemAtrial flutter (1380467)Atrial flutter (I48.92)ActiveconfirmedProblemAsthma (808199147)Asthma (J45.909)ActiveconfirmedProblemAtrial fibrillation (disorder) (57024427)Afib (I48.91)ActiveconfirmedProblemSleep apnea (89721433)Sleep apnea (G47.30)Active confirmedProblemWell adult (440335609)Well adult (Z00.00)ActiveconfirmedProblem Atrial fibrillation (98644296)Atrial fibrillation with RVR (I48.91)Active confirmedProblemLeukocytosis (236640038)Elevated WBCs (D72.829)Activeconfirmed ProblemNeoplasm of uncertain behavior of kidney (disorder) (85860051)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)ActiveconfirmedProblem Diabetes mellitus (14197446)Diabetes mellitus (E11.9)Activeconfirmed Vital Signs Blood pressure diastolic 78 mm Hg 11/08/2024 Hwefon83 in11/08/2024lood pressure ugkvvzph172 mm Hg11/08/20245456Bobgcc188 lbs 11/08/2024BMI39.54 kg/m211/08/2024 Encounters Encounter Location Date Provider Diagnosis [place] [address] [place] [address] 11/08/2024 Kev Singer Well adult Z00.00 ; Essential (primary) hypertension I10 ; Type 2 diabetes mellitus with other specified complication E11.69 ; Neoplasm of unspecified behavior of unspecified kidney D49.519 and Sleep apnea G47.30 [facility] [address] [place] [address] 12/13/2024 Kev [facility] [place] [address] 12/17/2024Doug [place] [address] [facility] [place] [address]/Doug HoyUnspecified atrial fibrillation I48.91[place] [address] [place] [address]/ Kev HoyElevated PSA R97.20 and Elevated WBCs D72.829[place] [address] [facility] [place] [address]/Doug [facility] [facility] [place] [address]/ Kev [facility] [facility] [place] [address] 11/25/2024Doug EnmanuelWell adult Z00.00[facility] [place] [address]/Doug [facility] [place] [address]/Doug HoyEssential (primary) hypertension I10 ; Type 2 diabetes mellitus with other specified complication E1 1.69 ; Atrial fibrillation with RVR I48.91 ; Well adult Z00.00 ; Screening for colon cancer Z12.11 and Elevated PSA R97.20[facility] [place] [address]/Doug [facility] [place] [address]/08/2024Do HoyDiabetes mellitus E11.9 and Essential (primary) hypertension I10 Assessments Encounter Date Diagnosis (ICD Code) Assessment Notes Treatment Notes Treatment Clinical Notes Section Notes 03/25/2024 Unspecified atrial fibrillation (ICD-10 - I48.91) 03/27/2024Elevated WBCs (ICD-10 - D72.829)03/27/2024Elevated PSA (ICD-10 - R97.20)11/25/2024Well adult (ICD-10 - Z00.00)03/09/2024Essential (primary) hypertension (ICD-10 - I10)03/09/2024Type 2 diabetes mellitus with other specified complication (ICD-10 - E11.69)11/08/2024Essential (primary) hypertension (ICD-10 - I10)good pyjompqa78/29/2025Well adult (ICD-10 - Z00.00) 12/17/2024Essential (primary) hypertension (ICD-10 - I10)12/17/2024Diabetes mellitus (ICD-10 - E11.9)03/09/2024trial fibrillation with RVR (ICD-10 - I48.91)11/08/2024Type 2 diabetes mellitus with other specified complication (ICD-10 - E11.69)sugar in the 120's with good diet - not on one of those 11/08/2024Neoplasm of unspecified behavior of unspecified kidney (ICD-10 - D49.519)seeing urology next week03/09/2024Well adult (ICD-10 - Z00.00)11/08/2024 Sleep apnea (ICD-10 - G47.30)wearing mas aknd helpn tigwh edaytiem focus aen htpffao6503/09/2024Screening for colon cancer (ICD-10 - Z12.11)03/09/2024Elevated PSA (ICD-10 - R97.20) Plan Of Treatment Pending Test Test Name Order Date CMP (COMPLETE METABOLIC PANEL) 4 CMP (COMPLETE METABOLIC PANEL) 4 HEMOGLOBIN A1C (GLYCO) 03/19/2023 LIPID PANEL (CHOL/TRIG/HDL/LDL) 03/19/19 24 CBC WITH DIFF 03/19/2023 PSA, PROSTATE-SPECIFIC ANTIGEN 4 URIC ACID 03/19/2023 Surgical Pathology ([facility]) 09/13/2024 PSA-FREE AND TOTAL 04/27/2023 Sleep Study: Retitration BIPAP/CPAP 10/2023 CBC W/AUTO DIFF 03/27/2024 STOOL OCCULT BLOOD 03/19/2023 THYROID PANEL (T4/TSH/FREE T3) 4 Free PSA 03/27/2024 Insurance Providers Payer Name Payer Address Payer Phone Subscriber Number Group Number Insured Name Patient Relationship to Insured Coverage Start Date Coverage End Date MMO [address] [facility], [facility] [id number] Jyoti Chase - patient is the [id number] [place] [phone], [employer] - patient is the insured Medical (General) History Medical History History ICD Code Controlled type 2 diabetes m ellitus with other specified complication, unspecified residential insulin use status E11.69 Asymptomatic hypertension I10 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
--- OUTSIDE RECORDS SUMMARY | 2024-12-21 06:14 | XMS_ITS | Clinical Summary ---
Author Organization [facility] Address [address] [place] [address] Phone Care Team Providers Care Case Briefer Name Role Phone Stalin Singer MD Primary Care Provider [phone] Allergies No known active allergies Medications MedicationSigDispense QuantityRefillsLast FilledStart DateEnd DateStatus Jardiance 10 mg Take 1 tablet (10 mg) by mouth once daily.12/13/2022ctive Ozempic 0.25 mg or 0.5 mg (2 mg/3 mL) pen injector 3Active doxazosin (Cardura) 4 mg tablet Take 1 tablet (4 mg) by mouth 2 times a day. Take half a tablet by mouth every morning and one tablet by mouth every eveningActive dilTIAZem CD (Cardizem CD) 120 mg 24 hr capsule Indications:Paroxysmal atrial fibrillation (Multi)Take 1 capsule (120 mg) by mouth if needed (if a fib lasts longer than 1-5 mins).4Active azelastine (Astelin) 137 mcg (0.1 %) nasal spray Administer 2 sprays into each nostril 2 times a day. UGWTHGCE16/03/2025Active metoprolol succinate XL (Toprol-XL) 25 mg 24 hr tablet Indications:Hypertensive left ventricular hypertrophy, without heart failureTake 1.5 tablets daily (37.5mg) daily 135 tablet 5Active apixaban (Eliquis) 5 mg tablet Indications:Paroxysmal atrial fibrillation (Multi)Take 1 tablet (5 mg) by mouth 2 times a day. 180 tablet /289924/6Active amLODIPine (Norvasc) 5 mg tablet Indications:Hypertensive left ventricular hypertrophy, without heart failureTake 1 tablet (5 mg) by mouth once daily. 90 tablet /722334/6Active tamsulosin (Flomax) 0.4 mg 24 hr capsule Take 1 capsule (0.4 mg) by mouth once daily. Do not crush, chew, or split.Active valsartan (Diovan) 160 mg tablet Indications:Hypotension due to drugsTake 1 tablet (160 mg) by mouth once daily. 90 tablet 509/ctive Active Problems ProblemNoted DateDiagnosed DateHypotension due to drugs10/27/2024MI 36.0-36.9,adult10/31/2023Never smoked udwttbf9610/31/2023aroxysmal atrial uadmcshmjxly34/20/2024Essential bflrqoaimhgt86/13/2023 Assessment & Plan (03/26/2023 12:32 PM EST): Remains borderline in office today Will add spironolactone Assessment & Plan (01/23/2023 11:59 AM EST): He has been compliant with addition of doxazosin and valsartan since discharge. Reports PCP stopped hydrochlorothiazide. Remains elevated in office today Obstructive sleep apnea01/22/2023 Assessment & Plan (01/23/2023 12:00 PM EST): Remains compliant with CPAP Diabetes mellitus type II, non insulin lpacthgfl87/13/2023 Assessment & Plan (01/23/2023 12:00 PM EST): On ARB No statin Unknown hemoglobin A1c Hypertensive left ventricular hypertrophy, without heart myyrqyx2701/22/2023 Assessment & Plan (01/23/2023 11:59 AM EST): November 2022 TTE LVEF greater than 70% LVH moderate MR trace Left renal mass01/17/2023Renal yyakucvy55/12/2019 Resolved Problems ProblemNoted DateDiagnosed DateResolved DateBMI 40.0-44.9, adult01/23/2023 05/06/2024 Assessment & Plan (03/26/2023 12:33 PM EST): Remains on ozempic Continue with lifestyle changes and weight loss Assessment & Plan (01/23/2023 12:01 PM EST): Recently started treatment with Ozempic Weight is down 10 pounds Reviewed the merits of healthy lifestyle choices on overall cardiovascular health. Encounters DateTypeDepartmentCare VeavQwbpzqhwcjw26/17/2025 4:00 PM EDTOffice Visit [facility] [address] [place] [address] Andra Ramirez APRN-AMBREEN Hypotension due to drugs (Primary Dx)10/27/20241942Smyiot88/18/2025Telephone [facility] [address] [place] [address] [place] MA from Last 3 Months Family History Medical HistoryRelationNameCommentsNo Known ProblemsFatherOvarian cancerMother heart problemPaternal GrandfatherHeart attackSisterRelationNameStatusComments FatherMotherPaternal GrandfatherSister Social History Tobacco UseTypesPacks/DayYears UsedDateSmoking Tobacco: NeverSmokeless Tobacco: Never Tobacco Cessation:Counseling Given: Yes Alcohol UseStandard Drinks/WeekCommentsYes2 (1 standard drink = 0.6 oz pure alcohol)Sex and Gender InformationValueDate RecordedSex Assigned at BirthMale 12/16/2022 10:12 AM ESTLegal IjnHrea45/04/2023 9:26 AM EDTGender IdentityMale 12/16/2022 10:12 AM ESTSexual VqelnplqztqVfqxozbk57/06/2023 10:12 AM EST Last Filed Vital Signs Vital SignReadingTime TakenCommentsBlood Dnhajnza971/6409 3:47 PM EDT Ahfqw181610/27/2024 3:47 PM EDTTemperature--Respiratory Rate--Oxygen Saturation-- Inhaled Oxygen Concentration--Bjgysc110 kg (241 lb 9.6 oz)10/27/2024 3:47 PM EDT Zalsar140.6 cm (5' 6 )10/27/2024 3:47 PM EDTBody Mass Jzgen164310/27/2024 3:47 PM EDT Plan of Treatment DateTypeDepartmentCare Team (Latest Contact Info)Teprcmkamfk51/30/2026 4:00 PM EDTOffice Visit [facility] [address] [place] [address] Andra Ramirez, SHOE MAKER-CHILD LIFE ASSISTANT [address] [place] [address] Health MaintenanceDue DateLast DoneCommentsCT Hhtjtwptmtbj60/01/1963Diabetes: Hemoglobin A1C1962Diabetes: Urine Protein Ygatnwstz60/01/1963FIT-DNA (Cologuard)1962FIT1962HIV Oxwmhclsw47/01/1963Lipid Panel1962 Xgjdyeznqbxlt04/01/1963Yearly Adult Lmlneynl89/01/1963MMR Vaccines (1 of 1 - Standard series)11/11/1963Diabetes: Retinopathy Rcqcwywea40/01/1973Hepatitis C Ctgyghycp29/01/1981Pneumococcal Vaccine (1 of 2 - PCV)1981DTaP/Tdap/Td Vaccines (1 - Tdap)1984PSA Prostate Cancer Vwaupbulh84/01/2013RSV High Risk: (Elderly (60+) or Population) (1 - Risk 50-74 years 1-dose series)2012Zoster Vaccines (1 of 2)2012Influenza Vaccine (#1) 5COVID-19 Vaccine ( - season)2822Dwdjtrsmuht67/07/2034 4Colorectal Cancer Ipiwsupkl75/07/2034HIB VaccinesAged OutNo longer eligible based on patient's age to complete this topicHPV VaccinesAged OutNo longer eligible based on patient's age to complete this topicHepatitis A VaccinesAged OutNo longer eligible based on patient's age to complete this topic Hepatitis B VaccinesAged OutNo longer eligible based on patient's age to complete this topicIPV VaccinesAged OutNo longer eligible based on patient's age to complete this topicMeningococcal VaccineAged OutNo longer eligible based on patient's age to complete this topicRotavirus VaccinesAged OutNo longer eligible based on patient's age to complete this topic Insurance MemberSubscriberPlan / Payer (Effective 2022-Present)Name:Clarence Flores Relation to Subscriber:SelfName:Clarence Flores Payer ID:Not on file Type:Not on file Address: [address] [place] [id number] * Guarantor: Giovani Flores TypeRelation to PatientDate of BirthPhoneBilweirton medical center AddressPersonal/HyybtkLoaw14/01/1961 [address] [place] [address] Care Teams Team MemberRelationshipSpecialtyStart DateEnd Stalin Singer MD [address] [place] [address] PCP - GeneralFamily Dmpbveym71/4/23
--- OUTSIDE RECORDS SUMMARY | 2024-12-21 06:14 | XMS_ITS | CCD ---
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 Name Role Phone YONG, DR VALDIVIA [...] Unavailable HOY, DR VALDIVIA Primary Care Unavailable DELPHINEY, DR VALDIVIA Attending Unavailable HOY, DR VALDIVIA Admitting Unavailable HOY, DR VALDIVIA Consulting Unavailable YONG, DR VALDIVIA Primary Care Unavailable DELPHINEY, DR VALDIVIA Attending Unavailable HOY, DR VALDIVIA Admitting Unavailable HOY, DR VALDIVIA Consulting Unavailable DELPHINEY, DR VALDIVIA Primary Care Unavailable YONG, DR VALDIVIA Attending Unavailable YONG, DR VALDIVIA Admitting Unavailable MD Shea Singer Primary Care Provider DO Damien Roth Emergency Provider MD Derick Gomes Admit Provider MD Derick Gomes Attending Provider Shea Singer MD Primary Care Provider Shea Singer Primary Care Physician MD Tariq Gordon Attending Provider [phone] EVAN, Tariq R Attending Unavailable NILL, Tariq R Attending Unavailable Shea Singer Referring Unavailable NILL, Tariq Bailey Attending Unavailable NILL, Tariq R Admitting Unavailable NILL, Tariq Bailey Referring Unavailable NILNoble, Traiq Bailey Attending Unavailable Unavailable Primary Care Provider Unavailabl e Shea Singer MD Primary Care Provider Linda CUSTOMER ACQUISITION SPECIALIST, Rachel Unavailable Leon Castro DO Unavailable [phone] Shea Singer MD Primary Care Provider [phone] Shea Singer MD Primary Care Provider [phone] Shea Singer MD Primary Care Provider [phone] Alistair Morelos DO Attending Provider [phone] Shea Singer MD Primary Care Provider Leon Castro DO Attending Provider Linda CUSTOMER ACQUISITION SPECIALIST, Rachel Unavailable [phone] Leon Castro Admitting Unavailable Leon Castro Attending Unavailable Alistair Morelos Admitting Unavailable Alistair Morelos Attending Unavailable Shea Singer M Primary Care Unavailable Shea Singer M Primary Care Unavailable Leon Castro Admitting [...] Attending Unavailable BIEDENBACH, LEON Martel Referring Unavailable RAMBASEK, JANY Candelaria Attending Unavailable RAMBASEK, [...] Unavailable GILLMOR, RACHEL Referring Unavailable Allergies Allergy ClassificationReported Allergen(s)Allergy TypeDate of OnsetReaction(s) Facility (2 sources)Aminolevulinic Acid; Translations: [nitroglycerin]Drug Allergy 54-10-1272[facility] (10 sources)Nitroglycerin; Translations: [nitroglycerin]Drug Lvofisi95-11-7661 Other, Low blood pressure (disorder), Other (See Comments)[facility] (20 sources)NitroglycerinAllergy to jqyvlgfiw48-06-0818[facility] Medications Current Medications MedicationDrug Class(es)DatesSig (Normalized)Sig (Original)3 ML semaglutide 2.68 MG/ML Pen Injector [Ozempic] (3 sources)Start: 76-23-4951pqejbn 2 mg by subcutaneous injection every week Ozempic 8 mg/3 mL (2 mg dose) subcutaneous solution 2 mg, SubCutaneous, qWeek, Refills(s) 0, Blood glucose Start Date: 07/03/23 Status: OrderedStart: 07-03-2023 inject 2 mg by subcutaneous injection every weekOzempic 8 mg/3 mL (2 mg dose) subcutaneous solution 2 mg, SubCutaneous, qWeek, Refills(s) 0 Start Date: 07/03/23 Status: OrderedamLODIPine 5 mg oral tablet (20 sources)Dihydropyridine Calcium Channel BlockerStart: 47-11-8800vtwi 2 tablets by mouth once dailyamLODIPine (NORVASC) 5 MG tablet Take 2 tablets by mouth daily 08/29/2024 ActiveStart: 05-06-2024 End: 04-82-9737tcCLQLZcrm (Norvasc) 5 MG tablet 11/09/2024 ActiveStart: 01-22-2023 End: 56-24-3505xpqs 1 tablet by mouth in the morningamLODIPine (Norvasc) 10 MG tablet Take 10 mg by mouth in the morning. 01/23/2023 Activeamoxicillin 875 mg / clavulanate 125 mg oral tablet (9 sources)Penicillin-class AntibacterialStart: 01-23-2024 End: 09-96-9364uqmt 1 tablet by mouth in the morningamoxicillin-clavulanate (Augmentin) 875-125 MG tablet Indications: Acute maxillary sinusitis, recurrence not specified Take 1 tablet (875 mg) by mouth in the morning and 1 tablet (875 mg) before bedtime. Do all this for 28 days. 56 tablet 01/23/2024 02/20/2024 Activeapixaban 5 mg oral tablet (20 sources)Factor Xa InhibitorStart: 09-25-2023 End: 31-21-1233jfgw 1 tablet by mouth in the morningapixaban (Eliquis) 5 MG tablet Take 5 mg by mouth in the morning and 5 mg in the evening. 09/25/2023 Activeazelastine hydrochloride 0.137 mg/actuat metered dose nasal spray (20 sources)Histamine-1 Receptor AntagonistStart: 42-24-7496hokr 2 spray(s) nasal route twice dailyazelastine (Astelin) 137 mcg (0.1 %) nasal spray Administer 2 sprays into each nostril 2 times a day. DIRECTED 02/13/2024 ActiveStart: 12-17-2023 End: 05-98-8093yvru 2 spray(s) nasal route in the morningazelastine (Astelin) 0.1 % nasal spray Indications: Chronic rhinitis Administer 2 sprays into each n ostril in the morning and 2 sprays before bedtime. Use in each nostril as directed. 90 mL 3 12/17/2023 12/16/2024 ActiveStart: 51-28-3791bqqm 1 drop(s) into the eye(s) once daily as neededStart: 14-30-5614pwqy 1 drop(s) into the eye(s) once daily as neededAzelastine 0.05 % drops Active 1 DROPS EYE-BOTH Daily as needed for Allergy Symptoms 2022 12:00amStart: 31-21-8839bsps 1 drop(s) into the eye(s) once dailyAzelastine Active 1 DROPS EYE-BOTH Daily 2022 12:00amazelastine (OPTIVAR) 0.05 % ophthalmic solution 1 drop as needed Activetake 1 drop(s) into the eye(s) twice dailyazelastine (OPTIVAR) 0.05 % ophthalmic solution 1 drop 2 times daily 0 Activecefadroxil 500 mg oral capsule (4 sources)Cephalosporin AntibacterialStart: 08-10-2024 End: 82-15-2337gkvt 1 capsule by mouth in the morningcefadroxil (Duricef) 500 MG capsule Indications: Sinusitis, unspecified chronicity, unspecified location , Nasal congestion Take 1 capsule (500 mg) by mouth in the morning and 1 capsule (500 mg) before bedtime. Do all this for 14 days. 28 capsule 08/10/2024 08/24/2024 Activeciprofloxacin 500 mg oral tablet (2 sources)Quinolone AntimicrobialStart: 09-13-2024 End: 95-63-4173norn 1 tablet by mouth twice dailyciprofloxacin (CIPRO) 500 MG tablet Take 1 tablet by mouth 2 times daily for 3 days 6 tablet 09/13/2024 09/16/2024 Activedexamethasone 4 mg oral tablet (2 sources)CorticosteroidStart: 34-14-1315ykgHDKQNptefx (Decadron) 4 MG tablet Indications: Sinusitis, unspecified chronicity, unspecified location Take 2 tablets for 5 days 10 tablet 11/26/2024 Avpdol16 hr dilTIAZem hydrochloride 120 mg extended release oral capsule (20 sources)Calcium Channel BlockerStart: 10-31-2023 End: 94-46-3057ykkVKQVwk CD (Cardizem CD) 120 mg 24 hr capsule Indications: Paroxysmal atrial fibrillation (Multi)Take 1 capsule (120 mg) by mouth if needed (if a fib lasts longer than 1-5 mins). 10/31/2023 10/30/2024 ActiveStart: 10-30-2023 End: 24-87-8373ycfFNSVzx CD (Cardizem CD) 120 MG 24 hr capsule Take 120 mg by mouth 10/30/2023 ActiveDilTIAZem (Eqv-Cardizem CD) 120 mg/24 hours oral capsule, extended release (1 source)Start: 18-71-9185KmiTUZYlj (Eqv-Cardizem CD) 120 mg/24 hours oral capsule, extended release 120 mg = 1 cap(s), Oral,Daily, Refills(s) 0 Start Date: 09/25/23 Status: Ordereddoxazosin 4 mg oral tablet (20 sources)alpha-Adrenergic BlockerStart: 20-05-7103zzdi 1 tablet by mouth once dailydoxazosin 4 mg Tab 4 mg = 1 tab(s), Oral, Daily, Refills(s) 0, High blood pressure Start Date: 07/03/23 Status: OrderedStart: 45-08-6174jfdn 8 mg by mouth once daily at bedtimeDoxazosin Active 8 MG PO Daily at bedtime 60 November 12, 2022 12:00amStart: 2022 End: 83-17-9007mstn 2 tablets by mouth once daily at bedtimetake 1 tablet by mouth twice daily, then take 0.5 tablet by mouth once daily in the morning, then take 1 tablet by mouth once daily in the eveningdoxazosin (Cardura) 4 mg tablet Take 1 tablet (4 mg) by mouth 2 times a day. Take half a tablet by mouth every morning and one tablet by mouth every evening Activetake 1 tablet by mouth every twelve hoursdoxazosin (Cardura) 4 mg tablet Take 1 tablet (4 mg) by mouth every 12 hours. 0 Activeempagliflozin 10 mg oral tablet (20 sources)Sodium-Glucose Cotransporter 2 InhibitorStart: 67-93-1846qpdf 1 tablet by mouth once dailyJardiance 10 mg Take 1 tablet (10 mg) by mouth once daily. 12/13/2022 Activefluconazole 150 mg oral tablet (10 sources)Azole AntifungalStart: 12-06-4117jcgbngdngsj (Diflucan) 150 MG tablet Take one tablet PO now, then repeat dose in 72 hours 09/01/2024 Emtcrq07 actuat fluticasone furoate 0.1 mg/actuat / umeclidinium 0.0625 mg/actuat / vilanterol 0.025 mg/actuat dry powder inhaler (20 sources)Anticholinergic, Corticosteroid, beta2-Adrenergic AgonistStart: 01-12-2024 End: 13-45-0631dkkz 1 puff(s) by inhalation once daily Mkfymxxbnbd-Hmqskvemi-Fvusri (Trelegy Ellipta) 100-62.5-25 MCG/ACT aerosol powder Indications: Cough variant asthma (HCC) Inhale 1 puff Daily 3 each 3 01/12/2024 01/11/2025 ActivehydroCHLOROthiazide 25 mg oral tablet (10 sources)Thiazide DiureticStart: 11-12-2022 End: 04-34-0539vnrk 1 tablet by mouth once dailyipratropium bromide 0.042 mg/actuat metered dose nasal spray (20 sources)AnticholinergicStart: 01-12-2024 End: 85-72-5223yuaz 2 spray(s) nasal route in the morning, then take 2 spray(s) nasal route in the evening, then take 2 spray(s) nasal route at bedtime ipratropium (Atrovent) 0.06 % nasal spray Indications: Acute maxillary sinusitis, recurrence not specified Administer 2 sprays into each nostril in the morning and 2 sprays in the evening and 2 sprays before bedtime. 15 mL 11 01/12/2024 ActivemetFORMIN hydrochloride 500 mg oral tablet (20 sources)BiguanideStart: 53-61-5716RxzLVNPCD (Eqv-Glucophage XR) 500 mg oral tablet, extended release 1,000 mg = 2 tab(s), Oral, Daily, Refills(s) 0, Blood glucose Start Date: 07/03/23 Status: OrderedStart: 56-24-7547mxmt 1 tablet by mouth once daily at bedtimeStart: 06-17-2022 End: 57-40-3857oskx 1 tablet by mouth every twenty-four hoursmetFORMIN XR 500 mg 24 hr tablet Take 1 tablet (500 mg) by mouth once every 24 hours. 06/17/2022 05/06/2024 Discontinued (Discontinued by another clinician)take 1 tablet by mouth in the morningmetFORMIN (Glucophage) 500 MG tablet Take 500 mg by mouth in the morning and 500 mg in the evening.Take with meals. Mgqhal15 hr metoprolol succinate 25 mg extended release oral tablet (20 sources)beta-Adrenergic BlockerStart: 51-48-8544tyyufyuuhf succinate XL (Toprol-XL) 25 MG 24 hr tablet 11/09/2024 ActiveStart: 17-59-7922lxawfciwhk 100 mg ER Tab 150 mg = 1.5 tab(s), Oral, Daily, Refills(s) 0, High blood pressure Start Date: 07/03/23 Status: OrderedStart: 59-72-3119oytx 1 tablet by mouth every twenty-four hoursmetoprolol succinate XL (Toprol-XL) 100 MG 24 hr tablet Take 150 mg by mouth 07/03/2023 ActiveStart: 01-22-2023 End: 25-11-6602wrjkbmyrkq succinate XL (Toprol-XL) 25 mg 24 hr tablet Indications: Hypertensive left ventricular hypertrophy, without heart failure Take 1.5 tablets daily (37.5mg) daily 135 tablet 3 05/06/2024 ActiveStart: 51-94-3477Qxkmh: 2022 End: 28-86-3634slbp 1 tablet by mouth once dailyMetoprolol Succinate 100 mg Tablet Extended Release 24 Hr Discontinued 150 MG PO Daily November 12:00am November 12, 2022 3:22pm take 1 TabletStart: 40-56-8682fvjx 1.5 tablets by mouth once dailyMetoprolol Succinate Active 100 MG PO Daily 2022 12:00am take 1.5tabsStart: 11-16-2018 End: 30-00-7314xmon 1 tablet by mouth twice dailymetoprolol succinate XL (Toprol-XL) 25 mg 24 hr tablet Take 1 tablet (25 mg) by mouth twice a day. 0 11/16/2018 01/22/2023 Discontinued (Med List Cleanup)take 1 tablet by mouth twice dailymetoprolol (LOPRESSOR) 100 MG tablet Take 1 tablet by mouth 2 times daily Activemontelukast 10 mg oral tablet (20 sources)Leukotriene Receptor AntagonistStart: 20-46-0764iszf 1 tablet by mouth once dailymontelukast (Singulair) 10 MG tablet Take 10 mg by mouth Daily 01/13/2024 ActiveStart: 48-94-4665vcxk 1 tablet by mouth once dailymontelukast 10 mg Tab 10 mg = 1 tab(s), Oral, Daily, Refills(s) 0 Start Date: 09/25/23 Status: OrderedOzempic 0.25 mg or 0.5 mg (2 mg/3 mL) pen injector (5 sources)Start: 22-48-6237Hzhbrjk 0.25 mg or 0.5 mg (2 mg/3 mL) pen injector 12/13/2022 ActiveStart: 53-66-8001Bjvppap 0.25 mg or 0.5 mg (2 mg/3 mL) pen injectorOzempic, 2 MG/DOSE, 8 MG/3ML solution pen-injector (20 sources)Start: 43-29-6369Biemzkz, 2 MG/DOSE, 8 MG/3ML solution pen-injector Inject 2 mg under the skin every 7 (seven) days 07/03/2023 ActiveOZEMPIC, 2 MG/DOSE, 8 MG/3ML SOPN sc injection (4 sources)Start: 29-92-1325NCZICCH, 2 MG/DOSE, 8 MG/3ML SOPN sc injection Inject 2 mg into the skin every 7 days 07/29/2023 ActivepredniSONE 50 mg oral tablet (13 sources)Start: 84-66-1984lvvuclSDLV (Deltasone) 50 MG tablet Indications: Sinusitis, unspecified chronicity, unspecified location , Nasal congestion 1 tablet daily in morning with food for 5 days 5 tablet 08/10/2024 Active1 mg dose 1.5 ml semaglutide 1.34 mg/ml pen injector (3 sources)Semaglutide, 1 MG/DOSE, (OZEMPIC, 1 MG/DOSE,) 2 MG/1.5ML SOPN Inject 1 Units into the skin Activespironolactone 25 mg oral tablet (20 sources)Aldosterone AntagonistStart: 03-25-2023 End: 17-43-6234hvwu 1 tablet by mouth in the morningspironolactone (Aldactone) 25 MG tablet Take 25 mg by mouth in the morning. 03/25/2023 Activetamsulosin hydrochloride 0.4 mg oral capsule (3 sources)alpha-Adrenergic BlockerStart: 13-76-3190cfyj 1 capsule by mouth every twenty-four hours in the morningtamsulosin (Flomax) 0.4 MG 24 hr capsule Take 0.4 mg by mouth in the morning and 0.4 mg in the evening. 11/15/2024 Active take 1 capsule by mouth once dailytamsulosin (Flomax) 0.4 mg 24 hr capsule Take 1 capsule (0.4 mg) by mouth once daily. Do not crush,chew, or split. Active valsartan 160 mg oral tablet (20 sources)Angiotensin 2 Receptor BlockerStart: 01-22-2023 End: 61-88-2866iseb 1 tablet by mouth once dailyvalsartan (Diovan) 320 mg tablet Indications: Hypertensive left ventricular hypertrophy, without heart failure Take 1 tablet (320 mg) by mouth once daily. 90 tablet 3 05/06/2024 05/06/2025 ActiveStart: 11-12-2022 End: 83-14-1103vtjv 1 tablet by mouth in the morningvalsartan (Diovan) 160 MG tablet Take 160 mg by mouth in the morning. 07/03/2023 Active End: 99-32-6511qppc 0.5 tablet by mouth once dailyvalsartan (Diovan) 320 mg tablet Take 0.5 tablets (160 mg) by mouth once daily. 10/27/2024 Discontinued (Duplicate order) Completed/Discontinued Medications MedicationDrug Class(es)DatesSig (Normalized)Sig (Original)hydrALAZINE hydrochloride 50 mg oral tablet (1 source)Arteriolar VasodilatorStart: 09-10-2018 End: 39-72-0916iokb 1 tablet by mouth twice dailyhydrALAZINE (Apresoline) 50 mg tablet Take 1 tablet (50 mg) by mouth twice a day. 0 09/10/2018 01/22/2023 Discontinued (Therapy completed)iopamidol (ISOVUE-370) 76 % injection 75 mL (1 source)Start: 08-21-2023 End: 29-57-3722hwvuvxdzh (ISOVUE-370) 76 % injection 75 mL Problems Active Problems Problem ClassificationProblemDateDocumented DateEpisodic/ChronicAcute bronchitis (1 source)Acute bronchitis, unspecified; Translations: [ACUTE BRONCHITIS UNSPECIFIED]Onset: 21-24-4625TybtdlxqMtqi and rectal conditions (1 source)Rectal polyp; Translations: [Rectal polyp]Onset: 13-25-9462Grcskgug Asthma (2 sources)Cough variant asthma; Translations: [Cough variant asthma]01-12-2024 ChronicCancer of kidney and renal pelvis (15 sources)Malignant neoplasm of unspecified kidney, except renal pelvis; Translations: [Malignant neoplasm ofleft kidney, except renal pelvis]Onset: 67-30-8662PnphxlwQeotyamikgcvk of surgical procedures or medical care (2 sources)Drug-induced hypotension; Translations: [Hypotension due to drugs] Onset: 629414-55-3391RhzuulmeZpkhiief mellitus without complication (1 source)Other abnormal glucose; Translations: [OTHER ABNORMAL GLUCOSE]Onset: 91-31-8639TsixnejdExkvnhok of white blood cells (20 sources)Leukocytosis; Translations: [Elevated white blood cell count, unspecified]Onset: 638256-00-5051OwirnblSrbsowzdqkc chest pain (6 sources)Chest pain; Translations: [Chest pain, unspecified]31-17-2288Sjmvsbgo Other aftercare (20 sources)Long-term current use of anticoagulant; Translations: [terminal gauger (current) use of 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]60-80-1864ZqgjtbvkGgfpm gastrointestinal disorders (1 source)Abnormal feces; Translations: [Other fecal abnormalities]Onset: 55-12-5718LzucxgjkCcsxr lower respiratory disease (2 sources)Snoring; Translations: [Snoring]91-72-5952BvgnavhvUbnok lower respiratory disease (2 sources)Dyspnea on exertion; Translations: [Other forms of dyspnea]12-17-2023 EpisodicOther lower respiratory disease (2 sources)Chronic cough; Translations: [Chronic cough]13-24-6803OhkeapxuGwcrk nutritional; endocrine; and metabolic disorders (3 sources)Obese class CBF38-40-5455PtostxgWjyeg upper respiratory disease (4 sources)Chronic rhinitis; Translations: [Chronic rhinitis]87-67-1036Haffuxb Other upper respiratory disease (2 sources)Rhinitis medicamentosa; Translations: [Chronic rhinitis]11-27-2024 ChronicOther upper respiratory disease (18 sources)Nasal congestion; Translations: [Nasal congestion]34-76-4860Tmqjurfc Other upper respiratory disease (1 source)Deviated nasal septum; Translations: [Deviated nasal septum]Onset: 95-23-8880MzvebzjsAarde upper respiratory infections (20 sources)Sinusitis; Translations: [Chronic sinusitis, unspecified]Onset: 221999-89-4499EuwhdykWnndx upper respiratory infections (7 sources)Acute maxillary sinusitis; Translations: [Acute maxillary sinusitis, unspecified]66-46-2646DkqhhljcEaaviwpf codes; unclassified (4 sources)Obstructive sleep apnea (adult) (pediatric); Translations: [OBSTRUCTIVE SLEEP APNEA]Onset: 09-29-0438IgcmnqlTlgeqbdo codes; unclassified (2 sources)Daytime somnolence; Translations: [Other hypersomnia]11-12-2023 ChronicResidual codes; unclassified (2 sources)History of partial nephrectomy; Translations: [Acquired absence of kidney]51-61-0666FujbyaxeMpvjrazv codes; unclassified (1 source)Acquired absence of kidney; Translations: [Acquired absence of kidney] Onset: 60-31-8472SguotbskVpcxbovwyrae (3 sources)CONTACT W/AND (SUSP) EXPOS COVID-19; Translations: [CONTACT W/AND (SUSP) EXPOS COVID-19]Onset: 11-01-2021 Past or Other Problems Problem ClassificationProblemDateDocumented DateEpisodic/ChronicCardiac dysrhythmias (20 sources)Atrial fibrillation; Translations: [Paroxysmal atrial fibrillation] Onset: 10-31-2023 Resolved: 158280-51-1866GfgglphJchnsqlj mellitus without complication (20 sources)Type 2 diabetes mellitus without complications; Translations: [Type 2 diabetes mellitus]Onset: 04-09-2021 Resolved: 34-14-8216ZvfcfekOiitdjrcluxdnc and diverticulitis (20 sources)Diverticula of intestine; Translations: [Diverticulosis of large intestine without perforation or abscess without bleeding]Onset: 10-01-2023 Resolved: 71-26-5445IttchtvSpeoinpdh hypertension (20 sources)Essential (primary) hypertension; Translations: [Essential hypertension]Onset: 11-24-2021 Resolved: 26-04-1824XtdotllAfhyhkalwjck with complications and secondary hypertension (20 sources)Hypertensive urgency ; Translations: [Hypertensive urgency]Onset: 01-22-2023 Resolved: 194392-19-8489SjkyahqSxdpjghpo of unspecified nature or uncertain behavior (8 sources)Neoplasm of kidney; Translations: [Neoplasm of unspecified behavior of unspecified kidney]Onset: 306636-84-0325DasrplbpUoxke and unspecified benign neoplasm (20 sources)Hyperplastic polyp of large intestine; Translations: [Rectal polyp] Onset: 01-29-2024 Resolved: 312951-97-2867IlridukwHkhrv diseases of kidney and ureters (20 sources)Renal mass; Translations: [Other specified disorders of kidney and ureter]Onset: 01-17-2023 Resolved: 662649-73-2443IdlgoikUcgzl gastrointestinal disorders (20 sources)Occult blood in stools; Translations: [Other fecal abnormalities] Onset: 01-29-2024 Resolved: 940990-94-5653BvvnlbgbAswmt non-traumatic joint disorders (3 sources)Pain in left knee; Translations: [PAIN IN LEFT KNEE]Onset: 03-25-2021 EpisodicOther non-traumatic joint disorders (1 source)Effusion, left knee; Translations: [EFFUSION LEFT KNEE]Onset: 31-30-9392HnzuhtwmFqncm nutritional; endocrine; and metabolic disorders (20 sources)Body mass index 40+ - severely obese; Translations: [Body mass index (BMI) 40.0-44.9, adult]Onset: 01-23-2023 Resolved: 087863-09-4670QeerrirAnwdd nutritional; endocrine; and metabolic disorders (20 sources)Body mass index 30+ - obesity; Translations: [Body mass index (BMI) 34.0-34.9, adult]Onset: 10-31-2023 Resolved: 586854-58-0108AddltdhPjngi screening for suspected conditions (not mental disorders or infectious disease) (20 sources)Raised prostate specific antigen; Translations: [Elevated prostate specific antigen [PSA]]Onset: 05-22-2023 Resolved: 283577-11-3272WwqwnywhPhrwqxoy codes; unclassified (20 sources)Obstructive sleep apnea syndrome; Translations: [Obstructive sleep apnea (adult) (pediatric)]Onset: 01-22-2023 Resolved: 396932-03-4572GfhiqofYbqxrnno codes; unclassified (20 sources)Never smoked tobacco; Translations: [Other specified health status] Onset: 10-31-2023 Resolved: 315709-30-2825XaosoaesSbmunaptbbxb (1 source)CONTACT W/AND (SUSP) EXPOS COVID-19; Translations: [CONTACT W/AND (SUSP) EXPOS COVID-19]Onset: 10-31-2021 Results Test NameValueInterpretationReference RangeFacilitySurgical Pathology Reporton [id number] Pathology Report(NOTE) Path Number: [id number] -- Diagnosis -- A. PROSTATE, LB, NEEDLE [...] tissue. Rylee Prado M.D. Electronically Signed Out kmg209/14/2024 Clinical Information Pre-Op Diagnosis: ELEVATED PSA Operative [...] core, 1.4 cm in length. Entirely 1cs. bk Orourke/jennifer:09/13/2024 Microscopic Description A-L. Microscopic examination performed. Processing Lab: [place] [id number] Interpretation Performed at [place] [id number] SURGICAL PATHOLOGY CONSULTATION Patient Name: CLARENCE FLORES Rec: [id number] [facility] ANATOMIC PATHOLOGY [address] [place] [address]. [place], [place] [id number] NoAkron Children's HospitalXR CHEST (2 VW)on [id number] CHEST (2 VW)EXAM: 2 VIEW(S) XRAY OF THE CHEST COMPARISON: [...] Signed by: River Murray MD 08/17/24 Final resultNoAkron Children's HospitalXR Chest 2 Viewson . No acute process. MHPN RIS CONSOLIDATEDEXAM: 2 VIEW(S) XRAY OF THE CHEST COMPARISON: None available. CLINICAL HISTORY: Renal cancer, left (HCC); History of partial nephrectomy. FINDINGS: LUNGS AND PLEURA: No focal pulmonary opacity. No pulmonary edema. No pleural effusion. No pneumothorax. HEART AND MEDIASTINUM: No acute abnormality of the cardiac and mediastinal silhouettes. BONES AND SOFT TISSUES: No acute osseous abnormality. [facility] River Flower MD - 08/17/2024 EXAM: 2 VIEW(S) XRAY [...] osseous abnormality. IMPRESSION: 1. No acute process. [facility] CenterRentersQ Chest 2 ViewsOrdered By: River Murray on [id number] [facility] EverybodyCar Work Phone: us Kidney limitedon [id number] ultrasound of the kidneys. [facility] CONSOLIDATEDEXAMINATION: ULTRASOUND OF THE KIDNEYS 08/16/2024 11:34 am COMPARISON: None. HISTORY: ORDERING SYSTEM PROVIDED HISTORY: Renal cancer, left (HCC) FINDINGS: The right kidney measures 11.6 cm in length and the left kidney measures 8.6 cm in length. Kidneys demonstrate normal cortical echogenicity. No hydronephrosis or intrarenal stones. No focal lesions. [facility] Tay Ruelas DO - 08/16/2024 EXAMINATION: ULTRASOUND OF THE KIDNEYS 08/16/2024 11:34 am COMPARISON: None. HISTORY: ORDERING SYSTEM PROVIDED HISTORY: Renal cancer, left (HCC) FINDINGS: The right kidney measures 11.6 cm in length and the left kidney measures 8.6 cm in length. Kidneys demonstrate normal cortical echogenicity. No hydronephrosis or intrarenal stones. No focal lesions. IMPRESSION: Unremarkable ultrasound of the kidneys. [facility] CenterSkyRecon Systems [facility] HospitalRadiology Study observation (narrative)[facility] RazzUS Kidney limitedOrdered By: Tay Martinez on [id number] Razz Work Phone: us RENAL LIMITEDon [id number] RENAL LIMITED EXAMINATION: ULTRASOUND OF THE KIDNEYS [...] Signed by: Tay Martinez DO 08/16/24 Final resultNormalMemorial Health System [facility] Chest 2 Viewson 97-33-3106Mqfzubrte Study observation (narrative)[facility] HospitalAerobic Cultureon 33-94-3468Uwdkvlk CultureMAXILLARY SINUS CONTENTS ORGANISM: Haemophilus influenzae (O:HAEINF) Beta Lactamase Negative Quantity of Growth Moderate Growth MAXILLARY SINUS CONTENTS No Anaerobes Isolated 3 Days MAXILLARY SINUS CONTENTS Gram Stain Result 2+ White Blood Cells No Bacteria Seen PERFORMED BY: [place] [address] PATHOLOGIST TAX [employer] INTERN TYRON ONOFRE M.D.NormalThe Unc Health Nash Physician GroupComment on above: Performed By: #### TSH3, A1C WTH eA, ALT, BMP, AST, LIPID, T4F #### [address] 08-12-2024L Specimen: [id number] Received: 08/16/24 Status: ADRIA Oliveira Num: [id number] Spec Type: Surgical Subm Dr: Leon Castro DO Tissues: A Sinus Contents/Biopsy (BILATERAL SINUS CONTENT) Procedures: Brandi RACHEL/Micro L4 Age/ Patient Sex Location Account Attending Physician Clarence Flores/Carie [place] [id number] Leon Castro DO SPEC NUM: [id number] RECD: 08/16/24 STATUS: ADRIA OLIVEIRA NUM: [id number] JONAN: 08/12/240000 SUBM DR: Leon Castro DO ENTERED: 08/16/24 [facility] DR: Brendan [facility] SPEC TYPE: Surgical DEPT: S ENTERED BY: [id number] RECV BY: [id number] ORDERED: VIRGINIE Gross/Micro L4 ORDERED: Brandi RACHEL/Micro L4 Pathological Diagnosis Bilateral sinus content, septoplasty: [...] in aggregate. The specimen is filtered and medical detail representative sections are submitted in a single cassette. (, , [id number] A) Microscopic Description Microscopic examination is performed. CPT Codes 98777 Specimen: [id number] Received: 08/16/24 Status: ADRIA Juárezkaron Num: [id number] Spec Type: Surgical Subm Dr: Leon Castro DO Tissues: A Sinus Contents/Biopsy (BILATERAL SINUS CONTENT) Procedures: Brandi RACHEL/Cherry L4 Patient: Clarence Flores [id number] (Continued) Signed (signature on file) Rodrick Cardoza MD 08/17/24 1346Normal [facility] Physician [facility] HospitalECG 12 lead ECGon 80-97-2619JCW 12 lead ECG [facility] [address] [place] [address] Electrocardiograph Report Signed Patient: Clarence Flores MR#: [id number] : 1960 Acct:[id number] Age/Sex: 63 / M ADM Date: 08/02/24 Loc: Room: Type: [facility] Attending Dr: Leon Castro DO Ordering Provider: [...] QRS Borderline ECG Confirmed by Lalita Capellan ([id number]) on 08/02/2024 8:21:23 PM Referred By: Electronically Signed By: Lalita Capellan Transcribed By: MUS Signed By Lalita Capellan MD 2020[facility] Physician GpqisT5Q with Estimated Average Gluon 57-45-9360Bnuuwow [Mass/Vol]111 mg/dLAdventHealth Altamon[facility] Physician [facility] HospitalComment on above:Result Comment: PERFORMED BY: [place] [address] PATHOLOGIST TAX SERVICES INTERN SOLIS ROMANO M.D.Performed By: #### TSH3, A1C WT eA, ALT, BMP, AST, LIPID, T4F #### [place] [id number] [facility] COUNTY HOSPITALAlanine aminotransferase [Enzymatic activity/volume] in Serum or PlasmaOrdered By: Alistair Morelos on 52-09-7375WII [Catalytic activity/Vol] Alanine aminotransferase [Enzymatic activity/volume] in Serum or Plasma [facility] HospitalALT [Catalytic activity/Vol]40 U/LNormal [facility] HospitalComment on above:Performed By: #### TSH3, A1C WTH eA, ALT, BMP, AST, LIPID, T4F #### [facility] [address] [place] [id number] USAAspartate aminotransferase [Enzymatic activity/volume] in Serum or PlasmaOrdered By: Alistair Morelos on 49-26-4697DVD [Catalytic activity/Vol] Aspartate aminotransferase [Enzymatic activity/volume] in Serum or Rrasji56-15 [facility] HospitalAST [Catalytic activity/Vol]33 U/CGwokup60-30 [facility] HospitalComment on above:Performed By: #### TSH3, A1C WTH eA, ALT, BMP, AST, LIPID, T4F #### [facility] [address] [place] [address] USABasic Metabolic Panelon 91-12-1949Rlochegxn GFR59.207 mL/MinAdventHealth Altamonte Springs Physician GroupComment on above:Performed By: #### TSH3, A1C WTH eA, ALT, BMP, AST, LIPID, T4F #### [facility] [address] [place] [address] USABlood estimated average glucose determination by estimation from glycated hemoglobinOrdered By: Alistair Morelos on 87-96-1532Khgqrwt glucose Estimated from glycated hemoglobin (Bld) [Mass/Vol]Glucose mean value [Mass/volume] in Blood Estimated from glycated hemoglobinOhio State Harding HospitalAverage glucose Estimated from glycated hemoglobin (Bld) [Mass/Vol]111 mg/dLOhio State Harding HospitalCalcium [Mass/volume] in Serum or PlasmaOrdered By: Alistair Morelos on 72-70-8266Ppakcgy [Mass/Vol]Calcium [Mass/volume] in Serum or Plasma8.6-10.3FUniversity Hospitals Conneaut Medical CenterCalcium [Mass/Vol]9.4 mg/dLNormal8.6-10.3FUniversity Hospitals Conneaut Medical CenterComment on above:Performed By: #### TSH3, A1C WTH eA, ALT, BMP, AST, LIPID, T4F #### [facility] [address] [place] [id number] USACarbon dioxide, total [Moles/volume] in Serum or Plasma Ordered By: Alistair Morelos on 72-53-5254JY3 [Moles/Vol]Carbon dioxide, total [Moles/volume] in Serum or Jecwws94.0-31.0[facility] Hard[facility] HospitalCO2 [Moles/Vol]26.8 mmol/IOjdapn25.0-31.0[facility] HospitalComment on above:Performed By: #### TSH3, A1C WTH eA, ALT, BMP, AST, LIPID, T4F #### [facility] [address] [place] [address] USAChloride [Moles/volume] in Serum or PlasmaOrdered By: Alistair Morelos on 75-97-5917Prdkzobs [Moles/Vol]Chloride [Moles/volume] in Serum or FrctlhVvie76-105DqghoxwxrOhio State Harding HospitalChloride [Moles/Vol]108 mmol/L Cqxk60-702IoundraypOhio State Harding HospitalComment on above:Performed By: #### TSH3, A1C WTH eA, ALT, BMP, AST, LIPID, T4F #### [facility] [address] [place] [address] USACholesterol [Mass/volume] in Serum or PlasmaOrdered By: Alistair Morelos on 35-94-1564Eoxfatocpjz [Mass/Vol]Cholesterol [Mass/volume] in Serum or Xtdwln611-154GuuwgotvuOhio State Harding HospitalComment on above:Chol less than 200 mg/dl low riskChol 201-239 mg/dl borderline riskChol 240 mg/dl and greater high riskCholesterol [Mass/Vol]156 mg/fQGkflqu396-508IlwegnbozOhio State Harding HospitalComment on above:Chol less than 200 mg/dl low riskChol 201-239 mg/dl borderline riskChol 240 mg/dl and greater high riskResult Comment: Chol less than 200 mg/dl low risk Chol 201-239 mg/dl borderline risk Chol 240 mg/dl and greater high riskPerformed By: #### TSH3, A1C WTH eA, ALT, BMP, AST, LIPID, T4F #### [facility] [address] [place] [address] USACholesterol in HDL [Mass/volume] in Serum or PlasmaOrdered By: Alistair Morelos on 50-21-7664Vgccoavwwjs in HDL [Mass/Vol]Serum or plasma high density lipoprotein (HDL) cholesterol gcysxrztflk62-23IjloapmlaOhio State Harding HospitalComment on above:HDL CHOL ATP-III CLASSIFICATION Cardiovascular RiskHDL > or equal to 60 mg/dL LOWHDL < 40 mg/dL HIGHCholesterol in HDL [Mass/Vol]34 mg/bZDqvbkk80-92LpzwxynidOhio State Harding HospitalComment on above:HDL CHOL ATP- III CLASSIFICATION Cardiovascular RiskHDL > or equal to 60 mg/dL LOWHDL < 40 mg/dL HIGHResult Comment: HDL CHOL ATP-III CLASSIFICATION Cardiovascular Risk HDL > or equal to 60 mg/dL LOW HDL < 40 mg/dL HIGHPerformed By: #### TSH3, A1C WTH eA, ALT, BMP, AST, LIPID, T4F #### [facility] [address] [place] [address] USACholesterol in LDL Calc [Mass/Vol]Ordered By: Alistair Morelos on 73-63-2246Xryzckcehlt in LDL [Mass/Vol]Cholesterol in LDL [Mass/volume] in Serum or Plasma by calculationJ.W. Ruby Memorial Hospital0Ohio [facility] Harding HospitalComment on above:LDL ATP III CLASSIFICATIONLDL less than 100 mg/dL OptimalLDL 100-129 mg/dL Near or above rhgqxotQEW424-756 mg/dL Borderline highLDL 160-189 mg/dL HighLDL greater than 189 mg/dL Very highCholesterol in LDL [Mass/Vol]102 mg/dL High0100Ohio State Harding HospitalComment on above:LDL ATP III CLASSIFICATIONLDL less than 100 mg/dL OptimalLDL 100-129 mg/dL Near or above aookqrhDKW209-764 mg/dL Borderline highLDL 160-189 mg/dL HighLDL greater than 189 mg/dL Very highCholesterol in VLDL Calc [Mass/Vol]Ordered By: Alistair Morelos on 04-57-3895Pvfiomvymdk in VLDL [Mass/Vol]Cholesterol in VLDL [Mass/volume] in Serum or Plasma by calculationOhio State Harding HospitalCholesterol in VLDL [Mass/Vol]19 mg/dLOhio State Harding HospitalCreatinine [Mass/volume] in Serum or PlasmaOrdered By: Alistair Morelos on 31-06-7438Ohasudlggg [Mass/Vol] Creatinine [Mass/volume] in Serum or PlasmaHigh0.70-1.30[facility] HospitalCreatinine [Mass/Vol]1.36 mg/dLHigh0.70-1.30[facility] HospitalComment on above:Performed By: #### TSH3, A1C WTH eA, ALT, BMP, AST, LIPID, T4F #### [facility] [address] [place] [address] USAGlucose [Mass/volume] in Serum or PlasmaOrdered By: Alistair Morelos on 38-03-7725Qyhtimz [Mass/Vol]Glucose [Mass/volume] in Serum or Plasma 70-100[facility]ing HospitalComment on above:ADA recommended reference rangeRandom Glucose Reference Range is dependent on time and content of last meal. Glucose of more than 200 mg/dL in a nonstressed, ambulatory subject supports the diagnosisof Diabetes Mellitus.Glucose [Mass/Vol]89 mg/dL Kzztgv06-237AkdodvhizOhio State Harding HospitalComment on above:ADA recommended reference rangeRandom Glucose Reference Range is dependent on time and content of last meal. Glucose of more than 200 mg/dL in a nonstressed, ambulatory subject supports the diagnosisof Diabetes Mellitus.Result Comment: Random Glucose Reference Range is dependent on time and content of last meal. Glucose of more than 200 mg/dL in a nonstressed, ambulatory subject supports the diagnosis of Diabetes Mellitus. ADA recommended reference rangePerformed By: #### TSH3, A1C WTH eA, ALT, BMP, AST, LIPID, T4F #### [facility] [address] [place] [address] USAHemoglobin A1c/Hemoglobin.total in BloodOrdered By: Alistair Morelos on 28-66-3884NxZ1f (Bld) [Mass fraction]Hemoglobin A1c percentage4.3-5.6 [facility] HospitalComment on above:Increased risk for diabetes: 5.7 - 6.4diabetes: >6.4glycemic control for adults with diabetes: <7.0HbA1c (Bld) [Mass fraction]5.5 %Normal4.3-5.6FUniversity Hospitals Conneaut Medical CenterComment on above:Increased risk for diabetes: 5.7 - 6.4diabetes: >6.4glycemic control for adults with diabetes: <7.0Result Comment: Increased risk for diabetes: 5.7 - 6.4 diabetes: >6.4 glycemic control for adults with diabetes: <7.0Performed By: #### TSH3, A1C WTH eA, ALT, BMP, AST, LIPID, T4F #### [facility] [address] [place] [address] USALipid Panelon 48-17-1148BKX Cholesterol,Lvjelyxwuc536 mg/dLHigh0-100The [facility]c Health Nash Physician GroupComment on above:Result Comment: LDL ATP III CLASSIFICATION LDL less than 100 mg/dL Optimal LDL 100-129 mg/dL Near or above optimal LDL 130-159 mg/dL Borderline high LDL 160-189 mg/dL High LDL greater than 189 mg/dL Very highPerformed By: #### TSH3, A1C WTH eA, ALT, BMP, AST, LIPID, T4F #### [facility] [address] [place] [address] USATriglyceride w/Qjkokd82 mg/dLNormal0-149The [facility] Health Nash Physician GroupComment on above:Result Comment: TRIG ATP III CLASSIFICATION TRIG less than 150 mg/dL Normal TRIG 150-199 mg/dL Borderline high TRIG 200-500 mg/dL High TRIG greater than 500 mg/dL Very high Standard traceable to the Center for Disease Conrtrol and Prevention (CDC) test method.Performed By: #### TSH3, A1C WTH eA, ALT, BMP, AST, LIPID, T4F #### [facility] [address] [place] [address] USAVLDL GQIKLGQRPVR71 mg/dLNormalThe Unc Health Nash Physician GroupComment on above:Performed By: #### TSH3, A1C WTH eA, ALT, BMP, AST, LIPID, T4F #### [facility] [address] [place] [address] USANo Panel InformationOrdered By: Alistair Morelos on 05-28-2024 Estimated GFR (CKD-EPI)59.207 mL/MinOhio State Harding HospitalPharmacy Creatinine Clearance (ChemN/German HospitalPotassium [Moles/volume] in Serum or PlasmaOrdered By: Alistair Morelos on 18-34-9679Dcjddwdjl [Moles/Vol]Potassium [Moles/volume] in Serum or Plasma3.5-5.1FUniversity Hospitals Conneaut Medical CenterPotassium [Moles/Vol]4.5 mmol/LNormal3.5-5.1FUniversity Hospitals Conneaut Medical CenterComment on above:Performed By: #### TSH3, A1C WTH eA, ALT, BMP, AST, LIPID, T4F #### [facility] [address] [place] [id number] USASerum or plasma anion gap determinationOrdered By: Alistair Morelos on 79-90-5875Sdnvt gap [Moles/Vol]Serum or plasma anion gap determination6.0-15.0[facility] Harding HospitalAnion gap [Moles/Vol]9.7 mmol/LNormal6.0-15.0[facility] HospitalComment on above:Performed By: #### TSH3, A1C WTH eA, ALT, BMP, AST, LIPID, T4F #### [facility] [address] [place] [id number] USASerum or plasma total cholesterol/high density lipoprotein (HDL) cholesterol mass ratOrdered By: Alistair Morelos on 05-28-2024 Cholesterol.total/Cholesterol in HDL [Mass ratio]Serum or plasma total cholesterol/high density lipoprotein (HDL) cholesterol mass rat<5.0[facility] HospitalCholesterol.total/Cholesterol in HDL [Mass ratio]4.6 {ratio}Normal<5.0[facility] HospitalComment on above:Performed By: #### TSH3, A1C WTH eA, ALT, BMP, AST, LIPID, T4F #### [facility] [address] [place] [id number] USASodium [Moles/volume] in Serum or PlasmaOrdered By: Alistair Morelos on 34-68-8084Oqhfee [Moles/Vol]Sodium [Moles/volume] in Serum or Plasma 136-145[facility] Hospital - Trumbullodium [Moles/Vol]140 mmol/LNormal 136-145Ohio [facility] Harding HospitalComment on above:Performed By: #### TSH3, A1C WTH eA, ALT, BMP, AST, LIPID, T4F #### [facility] [address] [place] [address] USAThyrotropin [Units/volume] in Serum or PlasmaOrdered By: Alistair Morelos on 37-21-0682VHC QnThyrotropin [Units/volume] in Serum or Plasma 0.45-5.33Ohio State Harding HospitalTS Qn1.34 m[IU]/LNormal0.45-5.33 [facility] HospitalComment on above:Result Comment: PERFORMED BY: [place] [id number] PATHOLOGIST [employer] INTERN SOLIS ROMANO M.D.Performed By: #### TSH3, A1C [facility] eA, ALT, BMP, AST, LIPID, T4F #### [address] [address] USAThyroxine (T4) free [Mass/volume] in Serum or Plasma Ordered By: Alistair Morelos on 53-92-3330Rnrk T4 [Mass/Vol]Thyroxine (T4) free [Mass/volume] in Serum or Plasma0.61-1.12[facility] Harding HospitalFree T4 [Mass/Vol]0.91 ng/dLNormal0.61-1.12[facility] Hard[facility] HospitalComment on above:Performed By: #### TSH3, A1C [facility] eA, ALT, BMP, AST, LIPID, T4F #### [facility] [address] [place] [address] USATriglyceride [Mass/volume] in Serum or PlasmaOrdered By: Alistair Morelos on 25-99-6464Anmracxvuvla [Mass/Vol]Triglyceride [Mass/volume] in Serum or Plasma0-149Ohio [facility] Harding HospitalComment on above:TRIG ATP III CLASSIFICATIONTRIG less than 150 mg/dL NormalTRIG 150-199 mg/dL Borderline highTRIG 200-500 mg/dL High TRIG greater than 500 mg/dL Very highStandard traceable to the Center for Disease Conrtrol and Prevention (CDC) test method. Triglyceride [Mass/Vol]99 mg/dL0-149Ohio [facility] Harding HospitalComment on above:TRIG ATP III CLASSIFICATIONTRIG less than 150 mg/dL NormalTRIG 150-199 mg/dL Borderline highTRIG 200-500 mg/dL High TRIG greater than 500 mg/dL Very highStandard traceable to the Center for Disease Conrtrol and Prevention (CDC) test method.Urea nitrogen [Mass/volume] in Serum or PlasmaOrdered By: Alistair Morelos on 84-63-6996Fjms nitrogen [Mass/Vol]Urea nitrogen [Mass/volume] in Serum or Plasma09-03Ohio State Harding HospitalUrea nitrogen [Mass/Vol]22 mg/dL Normal-[facility] HospitalComment on above:Performed By: #### TSH3, A1C WTH eA, ALT, BMP, AST, LIPID, T4F #### [facility] [address] [place] [address] USACT MAXILLOFACIAL WO IV CONTRASTon 39-20-3674RO MAXILLOFACIAL WO IV CONTRASTHISTORY: Sinusitis. TECHNIQUE: Spiral high resolution axial unenhanced [...] opacification compared to prior. ELECTRONICALLY SIGNED BY: Fadumo DeeNot AvailableCT MAXILLOFACIAL WO IV CONTRASTon 39-66-1499KG MAXILLOFACIAL WO IV CONTRASTHISTORY: Sinusitis, not improving TECHNIQUE: Spiral high resolution [...] sinuses with mild thickening. Overall findings appear sligh tly worsened from the prior CT. Nasal Cavities: [...] slightly worsened from prior. ELECTRONICALLY SIGNED BY: Marleen Dee AvailableCT SINUS WOon 52-50-8615NO SINUS WOExam: CT SINUS WO History: sinusitis Technique: Multiple [...] disease as detailed. ELECTRONICALLY SIGNED BY: Demetri J Sarah, DONormalNot AvailableAmbulatory Visit Summaryon 90-13-2582Brjhufebvc Visit SummaryAmbulatory Visit Summary CLARENCE FLORES :1960 Visit Date:10/01/2023 Ambulatory Visit Instructions Your Care Team Attending Physician - EVAN SARAH, Tariq Bailey Primary Care Physician - Yong SARAH, Shea This Is Your Medications List amlodipine (amLODIPine [...] mg/ 24 hours oral capsule, extended release) 1Capsules By Mouth Every day Unchanged doxazosin (doxazosin [...] you for choosing us for your care. [facility] HospitalGeneral Surgery Office/Clinic Noteon 91-09-6927Ltwhfzo Surgery Office/Clinic NoteGeneral Surgery Office/Clinic Note Chief Complaint post operative [...] swallowing difficulties, no hearing loss, no ear infection(s),no nose bleeds. Cardiovascular: normal blood pressure, no [...] Diverticulosis of large intestine without perforation or abscesswithout bleeding) high fiber diet and daily fiber [...] capsule, extended release, 120 mg= 1 cap(s), Oral,Daily doxazosin 4 mg Tab, 4 mg= 1 [...] Heart disease: Father and Sister. Ovarian cancer: Mother.[facility] HospitalComment on above:Result Comment: Electronically Signed By: Tariq GORDON MD\.br\Date and Time Signed: 10/01/23 20:32 EDTReminderson 61-84-6458HsmdkiiaaDwfymlmmq From: Pascale Copeland LPN To: N - Clinical; Sent: 10/01/2023 16:00:51 EDT Show up: 08/16/2033 07:00:00 EDT Subject: colonoscopy recall Due Date/Time: 09/16/2033 07:00:00 EDT Reminder/Recall Patient due for screening colonoscopy 09/16/2033.[facility] HospitalPathology Request for Lab Corpon 27-47-6844Zsqsyyzmj Request for Lab Jeison NormalThe Unc Health Nash Physician GroupComment on above:Order Comment: PATHOLOGY GI SPECIMENResult Comment: See report. Scanned copy available in EMR. PERFORMED BY: [place] [address] PATHOLOGIST [employer] INTERN ROSCOE CASTRO M.D.Performed By: #### PATH TO [facility] #### [place] [address] USAConsent for Procedure/Surgeryon 25-20-6237Hmercfv for Procedure/[id number]#1.00TIFFWVUMedicine Barnesville HospitalConsent for Treatmenton 65-05-9335Npnwnyz for Treatment [id number]#1.00TIFFWVUMedicine Barnesville HospitalMain OR Preoperative Recordon 10-45-6246Jhjs OR Preoperative RecordHolding Area Document Type FT Summary Primary Physician: Tariq GORDON MD Finalized Date/Time: 08/04/23 08:14:07 Pt. Name: CLARENCE FLORES/Sex: 1960 Male Med Rec #: [id number] Physician: Tariq GORDON MD Financial #: [id number] Pt. Type: O Room/Bed: / Admit/Disch: 08/04/23 [...] or her perioperative plan of care The patient'sright to privacy is maintained Surgery Checklist FT [...] No Patient states Yes Comment - Adult [place] postop adult Supervision supervision available Case Cancelled [...] pt taking ozempic less than 7 days prior/KS,RN Finalized By: Elizabeth Sorto RN Document Signatures Signed By: Elizabeth Sorto RN 08/04/23 07:43 Elizabeth Sorto RN 08/04/23 08:14NoMemorial HospitalConsent for Procedure/Surgeryon 05-97-4664Wfscepv for Procedure/Surgery [id number]#1.00TIFFWVUMedicine Barnesville HospitalAmbulatory Visit Summaryon 59-33-5911Hokgknsxrv Visit Summary CLARENCE FLORES :1960 Visit Date:07/14/2023 Ambulatory Visit Instructions Your Diagnosis Positive fecal occult blood test Your Care Team Attending Physician - EVAN SARAH, Tariq Bailey Primary Care Physician - Shea Singer [...] Tablets By Mouth Every day Contact prescribing physicianif questions or concerns Unchanged empagliflozin (Jardiance 10 [...] you for choosing us for your care. [facility] Hospitalan Referralon 06-30-2023 Physician [id number]#1.00TIFFWVUMedicine Barnesville HospitalNM Heart Perfusion W stress and W radionuclide Karen 80-31-0603Tvozas exercise Myoview cardiac perfusion stress test. No [...] Eric Villa 12/17/2022 5:57 PM Dictation workstation: [id number] MMODALInterpreted By: Eric Vlila and Giannuzzi Michael STUDY: MYOCARDIAL PERFUSION STRESS TEST WITH EXERCISE Performing facility: [facility], [address] [place] [address], [address] Provider: Chaim Morelos DO, FACC PCP: Dr. Singer Supervising provider: Andra Ramirez RN, STUDENT RECORDS COORDINATOR INDICATION: Chest Pain; HISTORY: Gender: M; Age: 62 y/o ; Height: cm; Weight: kg. Diabetes; Family HX CAD; HTN; SOB; Denies smoking. COMPARISON: No comparison. ACCESSION NUMBER(S): [id number] ORDERING CLINICIAN: MIKE MORELOS TECHNIQUE: TWO DAY [...] There were no evidence of attenuation artifact. Eric Valentino MD - 12/17/2022 Interpreted By: Eric Villa and Giannuzzi Michael STUDY: MYOCARDIAL PERFUSION STRESS TEST WITH EXERCISE Performing facility: [facility], [address] [place] [address] Provider: Chaim Morelos DO, FACC PCP: Dr. Singer Supervising provider: Andra Ramirez RN, STUDENT RECORDS COORDINATOR INDICATION: Chest Pain; HISTORY: Gender: M; Age: 62 y/o ; Height: cm; Weight: kg. Diabetes; Family HX CAD; HTN; SOB; Denies smoking. COMPARISON: No comparison. ACCESSION NUMBER(S): [id number] ORDERING CLINICIAN: MIKE MORELOS TECHNIQUE: TWO DAY [...] consistent with poor cardiopulmonary conditioning. Signed by: Erci Villa 12/17/2022 5:57 PM Dictation workstation: [id number] [facility] Work Phone: nm Heart Perfusion W stress and W radionuclide IV Ordered By: Eric Villa on 82-51-6773TtzdsjkdexOhioHealth Hardin Memorial Hospital Work Phone: nm Heart Perfusion W stress and W radionuclide Karen 26-09-8676Wbumhjlsv Study observation (narrative)[facility] Work Phone: activated partial thromboplastin time (aPTT) in platelet poor plasma by coagulation aOrdered By: Damien Roth on 40-80-8474eDWB Coag (PPP) [Time]29.0 s25.1-36.5FUniversity Hospitals Conneaut Medical CenterComment on above:A hematocrit value greater than 55% may lead to inaccurate results in coagulation testing. Patientshaving hematocrit values >55% require a special collection tube for coagulation studies. Please contact the laboratory at [phone] for redraw instructions.Basophils Auto (Bld) [#/Vol]Ordered By: Damien Roth on 04-08-0293Svlxymmdx (Bld) [#/Vol]0.1 10*3/uL0.0-0.2FUniversity Hospitals Conneaut Medical CenterBasophils/100 WBC Auto (Bld)Ordered By: Damien Roth on 58-19-9822Ucpvxohrz/100 WBC (Bld)1.0 %.Ohio [facility] Hard[facility] HospitalCalcium [Mass/volume] in Serum or PlasmaOrdered By: Damien Roth on 55-02-3985Ujyzhcj [Mass/Vol]9.0 mg/dL8.6-10.3FUniversity Hospitals Conneaut Medical CenterCarbon dioxide, total [Moles/volume] in Serum or PlasmaOrdered By: Damien Roth on 15-25-4518OL8 [Moles/Vol]26.2 mmol/L21.0-31.0[facility] HospitalChloride [Moles/volume] in Serum or PlasmaOrdered By: Damien Roth on 53-62-2738Hpqxzwwm [Moles/Vol]106 mmol/K42-691UkcwuqzvgOhio State Harding HospitalCreatine kinase [Enzymatic activity/volume] in Serum or PlasmaOrdered By: Damien Roth on 74-55-2217ML [Catalytic activity/Vol]111 U/L81-450WhcgkiiivOhio State Harding HospitalCreatinine [Mass/volume] in Serum or PlasmaOrdered By: Damien Roth 50-68-2107Zbohygvold [Mass/Vol]1.39 mg/dL0.70-1.30Ohio State Harding HospitalEosinophils Auto (Bld) [#/Vol]Ordered By: Damien Roth on 2022 Eosinophils (Bld) [#/Vol]0.3 10*3/uL0.0-0.45[facility] Eosinophils/100 WBC Auto (Bld)Ordered By: Damien Roth on 2022 Eosinophils/100 WBC (Bld)2.9 %.[facility] HospitalErythrocyte distribution width Auto (RBC) [Ratio]Ordered By: Damien Roth on 2022 Erythrocyte distribution width (RBC) [Ratio]14.8 %12.0-14.8[facility] HospitalGlucose [Mass/volume] in Serum or PlasmaOrdered By: Damien Roth 58-55-1190Dtdgrzv [Mass/Vol]170 mg/kR58-778GdzgzlbfwOhio State Harding Hospital Comment on above:ADA recommended reference rangeRandom Glucose Reference Range is dependent on time and content of last meal. Glucose of more than 200 mg/dL in a nonstressed, ambulatory subject supports the diagnosisof Diabetes Mellitus. Hematocrit Auto (Bld) [Volume fraction]Ordered By: Damien Roth on 2022 Hematocrit (Bld) [Volume fraction]43.8 %38.8-50.0[facility] HospitalHemoglobin [Mass/volume] in BloodOrdered By: Damien Roth on 2022 Hemoglobin (Bld) [Mass/Vol]15.0 g/dL13.0-17.0[facility] INR in Platelet poor plasma by Coagulation assayOrdered By: Damien Roth on 13-77-3243BKQ Coag (PPP) [Relative time]1.0 {INR}[facility] HospitalComment on above:INR Therapeutic Range A) Pre- and Peroperative OAT started two weeks before surgery. NOT HIP SURGERY: 1.5 - 2.5 HIP SURGERY: 2 - 3B) Primary and secondary prevention of venous THROMBOSIS: 2 - 3C) Active venous thrombosis, pulmonary embolismand prevention of recurrent venous thrombosis: 2 - 3D) Prevention of arterial thromboembolismincluding patients with mechanical heart valves: 3 - 4.5Leukocytes [#/volume] corrected for nucleated erythrocytes in Blood by Automated counOrdered By: Damien Roth on 54-83-7737PBY corrected for nucl RBC Auto (Bld) [#/Vol]9.2 10*3/uL4.1-10.5FUniversity Hospitals Conneaut Medical CenterLymphocytes Auto (Bld) [#/Vol]Ordered By: Damien Roth on 2022 Lymphocytes (Bld) [#/Vol]1.8 10*3/uL1.00-4.8[facility] Lymphocytes/100 WBC Auto (Bld)Ordered By: Damien Roth on 2022 Lymphocytes/100 WBC (Bld)19.7 %.[facility]H Auto (RBC) [Entitic mass]Ordered By: Damien Roth on 48-59-5834SZO (RBC) [Entitic mass]28.8 pg27.5-35.2FUniversity Hospitals Conneaut Medical CenterMCHC Auto (RBC) [Mass/Vol]Ordered By: Damien Roth on 68-47-9514KFFY (RBC) [Mass/Vol]34.3 g/dL32.5-35.6FUniversity Hospitals Conneaut Medical CenterMCV Auto (RBC) [Entitic vol]Ordered By: Damien Roth on 97-22-2285HDE (RBC) [Entitic vol]84.1 fL83.5-101[facility] HospitalMonocyte distribution width [Entitic volume] in Blood by AutomatedOrdered By: Damien Roth on 34-42-3732Edlneabh distribution width Auto (Bld) [Entitic vol]20.13 %0.00-20.00[facility]ing HospitalComment on above:For adults in ED, MDW > 20.0 may be associated with a higher risk of sepsis during the first 12 hrs of hospital admissionMonocytes Auto (Bld) [#/Vol]Ordered By: Damien Roth on 60-48-9540Utfoxnmzu (Bld) [#/Vol]0.8 10*3/uL0.0-0.8[facility] HospitalMonocytes/100 WBC Auto (Bld)Ordered By: Damien Roth on 74-87-5355Kgpzhuqin/100 WBC (Bld)9.2 %.[facility] Natriuretic peptide B [Mass/Vol]Ordered By: Damien Roth on 2022 Natriuretic peptide B (Bld) [Mass/Vol]101.0 pg/mL5-100[facility] HospitalNeutrophils Auto (Bld) [#/Vol]Ordered By: Damien Roth on 2022 Neutrophils (Bld) [#/Vol]6.2 10*3/uL1.8-7.7FUniversity Hospitals Conneaut Medical Center Neutrophils/100 WBC Auto (Bld)Ordered By: Damien Roth on 2022 Neutrophils/100 WBC (Bld)67.2 %.[facility] HospitalNo Panel InformationOrdered By: Damien Roth on 24-95-8847Gcspjjiqr GFR (CKD-EPI)58.037 mL/MinOhio State Harding HospitalPharmacy Creatinine Clearance (Chem72.10 [facility] HospitalNucleated erythrocytes [Presence] in Blood by Automated countOrdered By: Damien Roth on 40-46-1190Bywymzcwl RBC Auto Ql (Bld) 0.1 /100{WBC}0-0.5FUniversity Hospitals Conneaut Medical CenterPlatelet mean volume Auto (Bld) [Entitic vol]Ordered By: Damien Roth on 27-88-4101Tdpgwyxg mean volume (Bld) [Entitic vol]7.7 fL6.6-10.1FUniversity Hospitals Conneaut Medical CenterPlatelets Auto (Bld) [#/Vol]Ordered By: Damien Roth on 81-66-0294Mxgyhfndb (Bld) [#/Vol]194 10*3/aY618-393GmlzbtqctOhio State Harding HospitalPotassium [Moles/volume] in Serum or PlasmaOrdered By: Damien Roth on 33-34-2444Kdsvspshh [Moles/Vol]3.6 mmol/L 3.5-5.1FUniversity Hospitals Conneaut Medical CenterProthrombin time (PT)Ordered By: Damien Roth on 64-94-1037DE Coag (PPP) [Time]12.4 s9.0-12.9[facility] HospitalComment on above:A hematocrit value greater than 55% may lead to inaccurate results in coagulation testing. Patientshaving hematocrit values >55% require a special collection tube for coagulation studies. Please contact the laboratory at [phone] for redraw instructions.RBC Auto (Bld) [#/Vol]Ordered By: Damien Roth on 27-68-9236YIA (Bld) [#/Vol]5.21 10*6/uL3.90-5.60[facility] - Trumbullerum or plasma anion gap determinationOrdered By: Damien Roth on 60-01-2513Wvrpl gap [Moles/Vol]10.4 mmol/L6.0-15.0[facility] - Trumbullodium [Moles/volume] in Serum or PlasmaOrdered By: Damien Roth on 97-49-3360Xfhkmc [Moles/Vol]139 mmol/Z573-662DqloanuzgOhio State Harding HospitalTroponin I.cardiac [Mass/volume] in Serum or Plasma by Detection limit <= 0.01 ng/Ordered By: Damien Roth on 12-02-0612Ogucybvz I.cardiac DL <= 0.01 ng/mL [Mass/Vol]15.8 pg/mL0.0-20.0[facility] HospitalUrea nitrogen [Mass/volume] in Serum or PlasmaOrdered By: Damien Roth on 2022 Urea nitrogen [Mass/Vol]14 mg/dL7-25[facility] HospitalWBC Auto (Bld) [#/Vol]Ordered By: Damien Roth on 79-49-5296NGA (Bld) [#/Vol]9.2 10*3/uL 4.1-10.5FUniversity Hospitals Conneaut Medical CenterCBC AUTO DIFFon 89-77-7917ADRO #0.0 103/ulNormal0.0-0.1The [facility] HospitalComment on above:Performed By: #### CBC #### [facility] [address] [place] [address] Dr. Sunny OrtezBasophils/100 WBC (Bld)0.5 %Normal0.2-2.0[facility] Comment on above:Performed By: #### CBC #### [facility] [address] [place] [address] Dr. Sunny Padilla #0.4 103/ulNormal0.0-0.7The [facility] HospitalComment on above: Performed By: #### CBC #### [facility] [address] [place] [address] Dr. Sunny Dotsonosinophils/100 WBC (Bld)4.6 %Normal0.9-7.0[facility] Comment on above:Performed By: #### CBC #### [facility] [address] [place] [address] Dr. Sunny Dotsonrythrocyte distribution width (RBC) [Ratio]14.2 %Ufvmmm20.0-15.0 The [facility] HospitalComment on above:Performed By: #### CBC #### [facility] [address] [place] [address] Dr. Sunny OrtezHematocrit (Bld) [Volume fraction]45.8 %Jwnmmi26.0-54.0The [facility] HospitalComment on above:Performed By: #### CBC #### [facility] [address] [place] [address] Dr. Sunny OrtezHemoglobin (Bld) [Mass/Vol]15.1 g/nOJcptyq76.0-18.0The [facility] HospitalComment on above:Performed By: #### CBC #### [facility] [address] [place] [address] Dr. Sunny Wilkins #0.02 10e3/ulNormal0.00-0.03The [facility] HospitalComment on above:Performed By: #### CBC #### [facility] [address] [place] [address] Dr. Sunny Wilkins %0.2 %Normal0.0-0.5The [facility] HospitalComment on above: Performed By: #### CBC #### [facility] [address] [place] [address] Dr. Sunny Foley #1.7 103/ulNormal1.2-3.8The [facility] HospitalComment on above:Performed By: #### CBC #### [facility] [address] [place] [address] Dr. Sunny Munozhocytes/100 WBC (Bld)20.2 %Critically low20.5-60.0The [facility] HospitalComment on above:Performed By: #### CBC #### [facility] [address] [place] [address] Dr. Sunny ShankarSCCI HOS[facility]ITAL [facility] DIFF REQNONormalThe Marion HospitalComment on above: Performed By: #### CBC #### [facility] [address] [place] [address] Dr. Sunny Jiménez (RBC) [Entitic mass]27.7 yfHxptbq77.9-34.0The [facility] HospitalComment on above:Performed By: #### CBC #### [facility] [address] [place] [address] Dr. Sunny Jiménez (RBC) [Mass/Vol]33.0 g/vNSpyqgs41.9-35.2The [facility] HospitalComment on above:Performed By: #### CBC #### [facility] [address] [place] [address] Dr. Sunny Vance (RBC) [Entitic vol]83.9 jASpuccu54.0-94.0The [facility] HospitalComment on above:Performed By: #### CBC #### [facility] [address] [place] [address] Dr. Sunny Tiwari #0.7 103/ulNormal0.3-0.8The [facility] HospitalComment on above:Performed By: #### CBC #### [facility] [address] [place] [address] Dr. Sunny Martinezocytes/100 WBC (Bld)8.0 %Normal1.7-12.0[facility] Comment on above:Performed By: #### CBC #### [facility] [address] [place] [address] Dr. Sunny Reinoso #5.6 103/ulNormal1.4-6.5The [facility] HospitalComment on above:Performed By: #### CBC #### [facility] [address] [place] [address] Dr. Sunny Monroyutrophils/100 WBC (Bld)66.5 %Dztemf68.0-75.0The [facility] HospitalComment on above:Performed By: #### CBC #### [facility] [address] [place] [address] Dr. Sunny Lombardo mean volume (Bld) [Entitic vol]9.1 fLCritically low 9.5-13.5The [facility] HospitalComment on above:Performed By: #### CBC #### [facility] [address] [place] [address] Dr. Sunny OrtezPLT215 103/uvGpecvr526-848Hfw Marion HospitalComment on above: Performed By: #### CBC #### [facility] [address] [place] [address] Dr. Sunny OrtezRBC5.46 106/ulNormal4.70-6.10The [facility] HospitalComment on above:Performed By: #### CBC #### [facility] [address] [place] [address] Dr. Sunny OrtezWBC8.4 103/ulNormal4.0-11.0The [facility] Hospitalment on above: Performed By: #### CBC #### [facility] [address] [place] [address] Dr. Sunny OrtezGLYCOHEMOGLOBIN A1Con 17-89-9482SHQ RECOMMENDATIONSEE BELOWNormal The [facility] HospitalComment on above:Result Comment: ADA RECOMMENDED LIMIT 4.0 - 6.0 ADA THERAPEUTIC TARGET < 7.0 ACTION SUGGESTED > 7.0Performed By: #### A1C #### [facility] [address] [place] [address] Dr. Sunny OrtezGlucose [Mass/Vol]117 mg/dLNormalThe [facility] HospitalComveterans affairs [facility] on above:Performed By: #### A1C #### [facility] [address] [place] [address] Dr. Snuny OrtezHbA1c (Bld) [Mass fraction]5.7 %Normal4.5-6.2The [facility] HospitalComment on above:Performed By: #### A1C #### [facility] [address] [place] [address] Dr. Sunny OrtezPROF 14(COMP METB)on 53-22-2050Ymzuhxz [Mass/Vol]3.7 g/dLNormal 3.4-5.0The [facility] HospitalComment on above:Performed By: #### CMP #### [facility] [address] [place] [address] Dr. Sunny OrtezAlbumin/Globulin [Mass ratio]1.0 {ratio}NormalThe Marion HospitalComveterans affairs [facility] on above:Performed By: #### CMP #### [facility] [address] [place] [address] Dr. Sunny Bland [Catalytic activity/Vol]61 U/RLwtkgo78-907Qmv [facility] HospitalComveterans [facility] on above:Performed By: #### CMP #### [facility] [address] [place] [address] Dr. Sunny Gil [Catalytic activity/Vol]42 U/KVmnowd26-54Acs Johnny HospitalComment on above:Performed By: #### CMP #### [facility] [address] [address] [address] Sunny Patelon gap [Moles/Vol]8.1 mmol/LNormalThe Marion HospitalComment on above:Performed By: #### CMP #### [facility] [address] [address] [address] Sunny OrtezAST [Catalytic activity/Vol]28 U/RWaldar56-89Sjz Marion HospitalComment on above:Performed By: #### CMP #### [facility] [address] [address] [address] Sunny OrtezBilirubin [Mass/Vol]0.5 mg/dLNormal0.2-1.0[facility] Comment on above:Performed By: #### CMP #### [facility] [address] [place] [address] Dr. Sunny OrtezCalcium [Mass/Vol]8.7 mg/dLNormal8.5-10.1[facility] Comment on above:Performed By: #### CMP #### [facility] [address] [address] [address] Sunny OrtezChloride [Moles/Vol]107 mmol/TNainah85-483His [facility] Comment on above:Performed By: #### CMP #### [facility] [address] [place] [address] Dr. Sunny OrtezCO2 [Moles/Vol]30.0 mmol/KGjiroz87.0-32.0[facility] Comment on above:Performed By: #### CMP #### [facility] [address] [address] [address] Sunny OrtezCreatinine [Mass/Vol]1.29 mg/dLNormal0.70-1.30The [facility] HospitalComment on above:Performed By: #### CMP #### [facility] [address] [address] [address] Correa ChangEGFR-AF WALLISIAN>60Normal>=60The [facility] HospitalComment on above:Performed By: #### CMP #### [facility] [address] [address] [address] Sunny DotsonGFR-NON AF XNFVZBYP05 mL/min/1.98r9Dpggbsnkjo low>=60The [facility] HospitalComment on above:Performed By: #### CMP #### [facility] [address] [address] [address] Sunny OrtezGlobulin (S) [Mass/Vol]3.7 g/dLNoNewark HospitalComment on above:Performed By: #### CMP #### [facility] [address] [address] [address] Sunny OrtezGlucose [Mass/Vol]108 mg/dLCritically pwvd49-476Yen Marion HospitalComment on above:Performed By: #### CMP #### [facility] [address] [address] [address] Sunny OrtezPotassium [Moles/Vol]4.1 mmol/LNormal3.5-5.1[facility] Comment on above:Performed By: #### CMP #### [facility] [address] [address] [address] Sunny OrtezProtein [Mass/Vol]7.4 g/dLNormal6.4-8.2[facility] Comment on above:Performed By: #### CMP #### [facility] [address] [address] [address] Sunny OrtezSodium [Moles/Vol]141 mmol/GOvpmor452-766Zou [facility] Comment on above:Performed By: #### CMP #### [facility] [address] [address] [address] Sunny OrtezUrea nitrogen [Mass/Vol]16.0 mg/dLNormal7.0-18.0The [facility] HospitalComment on above:Performed By: #### CMP #### [facility] [address] [address] [address] Sunny OrtezUrea nitrogen/Creatinine [Mass ratio]12.4 mg/mgNoNewark HospitalComment on above:Performed By: #### CMP #### [facility] [address] [place], [place] [address] Dr. Sunny OrtezOCC BLD IMMUNO SCREENon 44-53-5557OAFZTI BLOODNegativeNormal NEGATIVEThe Marion HospitalComment on above:Performed By: #### OBSCRN #### [facility] [id number] Sunny OrtezCovid-19 PCR (CVDTBH)on 41-38-1440GIFI-CoV-2 (COVID-19) RNA RENÉE+probe Ql (Unsp spec)Not detectedNormalNOT DETECTEDThe [facility] Comment on above:Result Comment: When diagnostic testing is negative, the [...] for this test is supported by the [place] of Health and Human Service's declaration that circumstances exist to justify the emergency use of in vitro diagnostics for the detection and/or diagnosis of the virus that causes COVID-19. This EUA will remain in effect for the duration of the COVID-19 declaration justifying emergency of IVDs, unless it is terminated or revoked by the FDA (after which the test may no longer be used).Performed By: #### CMP #### [facility] [address] [place] [address] Dr. Sunny OrtezMRI ABDOMEN W CONon 90-62-4940TNI ABDOMEN W CONEXAMINATION: MRI ABDOMEN W CON HISTORY: Renal cell carcinoma of [...] Electronically authenticated by: ELVIN JENKINS Date: 2021-05-06 07:49[facility] HospitalCREATININE 97-39-2883Bjmqialacg [Mass/Vol]1.37 mg/dL Critically high0.66-1.Hol[facility] HospitalComment on above:Performed By: #### CREA #### [facility] [address] [place] [address] Dr. Correa ChangEGFR-AF WALLISIAN>60Normal>=60[facility] on above:Performed By: #### CREA #### [facility] [address] [place] [address] Dr. Correa ChangEGFR-NON AF NGSPWDLH29 mL/min/1.08i6Qiezmzvvbw low>=60[facility] on above:Performed By: #### CREA #### [facility] [address] [place] [address] Dr. Sunny OrtezCREJeanne 49-53-8103Vmgwkpirvx [Mass/Vol]1.28 mg/dLCritically high0.66-1.25ThM[facility] Hospital on above:Performed By: #### CREA #### [facility] [address] [place] [address] Dr. Correa ChangEGFR-AF WALLISIAN>60Normal>=60[facility] on above:Performed By: #### CREA #### [facility] [address] [place] [address] Dr. Correa ChangEGFR-NON AF GWIBZNOC81 mL/min/1.39p3Fsvjslkrek low>=60The [facility] HospitalComment on above:Performed By: #### CREA #### [facility] [address] [address] [address] Sunny OrtezMRI ABDOMEN WO CONon 05-39-7412MHL ABDOMEN WO CONEXAMINATION: MRI ABDOMEN WO CON HISTORY: Primary malignant neoplasm of [...] Electronically authenticated by: STEVE COLLADO Date: 2021-04-12 14:39[facility] ABD/PELV W CONon [id number] ABD/PELV W CON Begin Addendum #1 The findings should read: There is heterogeneous [...] thickening with surrounding mild inflammatory changes. Consider cystitisNoNewark HospitalINSULINon 69-99-7036Ndsrxnb81.7 uIU/mLCritically high2.6-24.9The [facility] HospitalComment on above:Performed By: #### INSULIN #### [facility] [address] [place] [address] Dr. Sunny Murray KNEE LT 4V or >on 71-84-7735BU KNEE LT 4V or >EXAM: XR KNEE LT 4V or > HISTORY: Bilateral knee pain COMPARISON: None. TECHNIQUE: 4 views FINDINGS: Relative maintenance of the tricompartmental joint spaces. Small osteophytes off the articular surfaces and tibial spines. No fracture, dislocation or subluxation. No knee effusion. IMPRESSION: Mild age-related changes with no acute abnormality Electronically authenticated by: STEVE PALACIOS Date: 2021-03-25 17:14[facility] HospitalBNPon 06-62-0655Heewsqmsnxd peptide B (Bld) [Mass/Vol]202.0 pg/mLNormal<=900.0The [facility] HospitalComment on above:Performed By: #### CMP #### [facility] [address] [place] [address] Dr. Sunny OrtezCBC AUTO DIFFon 56-93-7264OGFP #0.1 103/ulNormal0.0-0.1The [facility] HospitalComment on above:Performed By: #### CBC #### [facility] [address] [address] [address] Sunny OrtezBasophils/100 WBC (Bld)0.8 %Normal0.2-2.0[facility] Comment on above:Performed By: #### CBC #### [facility] [address] [address] [address] Sunny Padilla #0.5 103/ulNormal0.0-0.7The [facility] HospitalComment on above: Performed By: #### CBC #### [facility] [address] [place] [address] Dr. Sunny Dotsonosinophils/100 WBC (Bld)4.6 %Normal0.9-7.0[facility] Comment on above:Performed By: #### CBC #### [facility] [address] [place] [address] Dr. Sunny Dotsonrythrocyte distribution width (RBC) [Ratio]13.6 %Qcjlmc48.0-15.0 The Marion HospitalComment on above:Performed By: #### CBC #### [facility] [address] [place] [address] Dr. Sunny OrtezHematocrit (Bld) [Volume fraction]45.6 %Xzzwjn81.0-54.0The [facility] HospitalComment on above:Performed By: #### CBC #### [facility] [address] [place] [address] Dr. Sunny OrtezHemoglobin (Bld) [Mass/Vol]15.2 g/qYMvkgcp19.0-18.0The [facility] HospitalComment on above:Performed By: #### CBC #### [facility] [address] [place] [address] Dr. Sunny Wilkins #0.04 10e3/ulCritically high0.00-0.03[facility] Comment on above:Performed By: #### CBC #### [facility] [address] [address] [address] Sunny Wilkins %0.4 %Normal0.0-0.5The [facility] on above: Performed By: #### CBC #### [facility] [address] [address] [address] Sunny Foley #1.9 103/ulNormal1.2-3.8The [facility] HospitalComment on above:Performed By: #### CBC #### [facility] [address] [place] [address] Dr. Sunny Munozhocytes/100 WBC (Bld)18.4 %Critically low20.5-60.0The [facility] on above:Performed By: #### CBC #### [facility] [address] [place] [address] Dr. Sunny ShankarUAL DIFF REQNONormalThe Marion HospitalComment on above: Performed By: #### CBC #### [facility] [address] [place] [address] Dr. Sunny Jiménez (RBC) [Entitic mass]27.9 rzRhdufv15.9-34.0The [facility] on above:Performed By: #### CBC #### [facility] [address] [place] [address] Dr. Sunny Jiménez (RBC) [Mass/Vol]33.3 g/kXSvfwft61.9-35.2The [facility] on above:Performed By: #### CBC #### [facility] [address] [place] [address] Dr. Sunny Jiménez (RBC) [Entitic vol]83.7 zCZkpwbn44.0-94.0The [facility] on above:Performed By: #### CBC #### [facility] [address] [place] [address] Dr. Sunny Tiwari #0.8 103/ulNormal0.3-0.8The [facility] on above:Performed By: #### CBC #### [facility] [address] [place] [address] Dr. Sunny Martinezocytes/100 WBC (Bld)8.0 %Normal1.7-12.0[facility] Comment on above:Performed By: #### CBC #### [facility] [address] [place] [address] Dr. Sunny MonroyUT #7.0 103/ulCritically high1.4-6.5[facility] Comment on above:Performed By: #### CBC #### [facility] [address] [place] [address] Dr. Sunny Monroyutrophils/100 WBC (Bld)67.8 %Ssjthd13.0-75.0The [facility] HospitalComment on above:Performed By: #### CBC #### [facility] [address] [place] [address] Dr. Sunny Johnsonlet mean volume (Bld) [Entitic vol]9.5 fLNormal9.5-13.5The [facility] HospitalComment on above:Performed By: #### CBC #### [facility] [address] [place] [address] Dr. Sunny OrtezPLT322 103/swVmhzue603-068Gac Marion HospitalComment on above: Performed By: #### CBC #### [facility] [address] [place] [address] Dr. Sunny OrtezRBC5.45 106/ulNormal4.70-6.10The [facility] HospitalComment on above:Performed By: #### CBC #### [facility] [address] [place] [address] Dr. Sunny OrtezWBC10.4 103/ulNormal4.0-11.0The [facility] HospitalComment on above:Performed By: #### CBC #### [facility] [address] [place] [address] Dr. Sunny Dalal THYROXINE INDEX T7on 98-54-5161JUO4.01NormalThHolzer HospitalComment on above:Performed By: #### CMP #### [facility] [address] [address] [address] Sunny OrtezT3U35.0 %Wphuda61.5-40.5ThHolzer HospitalComment on above: Performed By: #### CMP #### [facility] [address] [address] [address] Sunny OrtezT4 [Mass/Vol]8.60 ug/dLNormal5.53-11.00[facility] Comment on above:Performed By: #### CMP #### [facility] [address] [address] [address] Sunny OrtezGLYCOHEMOGLOBIN A1Con 67-93-9194QNT RECOMMENDATIONADA THERAPEUTIC TARGET 6.0 - 7.0 ACTION SUGGESTED > 7.0[facility] HospitalComment on above:Performed By: #### A1C #### [facility] [address] [address] [address] Sunny OrtezGlucose [Mass/Vol]197 mg/dLNoNewark HospitalComment on above:Performed By: #### A1C #### [facility] [address] [address] [address] Sunny OrtezHbA1c (Bld) [Mass fraction]8.5 %Critically high<=6.0[facility] HospitalComment on above:Performed By: #### A1C #### [facility] [address] [place] [address] Dr. Sunny OrtezLIPID PROFILEon 64-02-7096EQDZ-HDL RATIO NORMSEE BELOWCleveland Clinic Mentor HospitalComment on above:Result Comment: 3.3 - 4.4 LOW RISK 4.4 - 7.1 AVERAGE RISK 7.1 - 11.0 MODERATE RISK >11.0 HIGH RISKPerformed By: #### CMP #### [facility] [address] [address] [address] Sunny OrtezCholesterol [Mass/Vol]150 mg/dLNormal<=200[facility] Comment on above:Performed By: #### CMP #### [facility] [address] [address] [address] Sunny Quezadaesterol in HDL [Mass/Vol]30 mg/dLCleveland Clinic Mentor Hospital Comment on above:Performed By: #### CMP #### [facility] [address] [place] [address] Dr. Sunny OrtezCholesterol in LDL [Mass/Vol]96.8 mg/dLCleveland Clinic Mentor HospitalComment on above:Performed By: #### CMP #### [facility] [address] [place] [address] Dr. Sunny Villegas.total/Cholesterol in HDL [Mass ratio]5.0 {ratio} NormalThe Marion HospitalComment on above:Performed By: #### CMP #### [facility] [address] [place] [address] Dr. Sunny Garzon NORMAL> or = 60 mg/dl - LOW CARDIOVASCULAR RISK <40 mg/dl - HIGH CARDIOVASCULAR RISKCleveland Clinic Mentor HospitalComment on above:Performed By: #### CMP #### [facility] [address] [place] [address] Dr. Sunny OrtezLDL CALC NORMALSEE BELOWCleveland Clinic Mentor HospitalComment on above:Result Comment: <100 mg/dl OPTIMAL 100 - 129 mg/dl NEAR OR ABOVE OPTIMAL 130 - 159 mg/dl BORDERLINE HIGH 160 - 189 mg/dl HIGH >190 mg/dl VERY HIGH Performed By: #### CMP #### [facility] [address] [place] [address] Dr. Sunny OrtezTriglyceride [Mass/Vol]116 mg/dLNormal<=150[facility] Comment on above:Performed By: #### CMP #### [facility] [address] [place] [address] Dr. Sunny OrtezVLDL CALC23.2 mg/dLCleveland Clinic Mentor HospitalComment on above: Performed By: #### CMP #### [facility] [address] [place] [address] Dr. Sunny OrtezPROF 14(COMP METB)on 36-08-2967Ltbbuto [Mass/Vol]3.5 g/dLNormal 3.5-5.0The Marion HospitalComment on above:Performed By: #### CMP #### [facility] [address] [address] [address] Sunny OrtezAlbumin/Globulin [Mass ratio]1.0 {ratio}NormalThe Marion HospitalComment on above:Performed By: #### CMP #### [facility] [address] [address] [address] Sunny ArdonP [Catalytic activity/Vol]73 U/DJntgfr48-130Xrd Marion HospitalComment on above:Performed By: #### CMP #### [facility] [address] [place] [address] Dr. Sunny ArdonT [Catalytic activity/Vol]28 U/XEaiuyh34-97Kxn Marion HospitalComment on above:Performed By: #### CMP #### [facility] [address] [place] [address] Dr. Sunny Patelon gap [Moles/Vol]14.7 mmol/LNormalThe [facility] Comment on above:Performed By: #### CMP #### [facility] [address] [place] [address] Dr. Sunny OrtezAST [Catalytic activity/Vol]13 U/LCritically tej80-32Zgq [facility] HospitalComment on above:Performed By: #### CMP #### [facility] [address] [place] [address] Dr. Sunny OrtezBilirubin [Mass/Vol]0.7 mg/dLNormal0.2-1.3[facility] Comment on above:Performed By: #### CMP #### [facility] [address] [place] [address] Dr. Sunny OrtezCalcium [Mass/Vol]8.6 mg/dLNormal8.4-10.2[facility] Comment on above:Performed By: #### CMP #### [facility] [address] [place] [address] Dr. Sunny OrtezChloride [Moles/Vol]105 mmol/HXtlzdu87-517Nal [facility] Comment on above:Performed By: #### CMP #### [facility] [address] [address] [address] Sunny OrtezCO2 [Moles/Vol]23.6 mmol/YDanjie66.0-30.0[facility] Comment on above:Performed By: #### CMP #### [facility] [address] [address] [address] Sunny OrtezCreatinine [Mass/Vol]1.33 mg/dLCritically high0.66-1.25The Marion HospitalComment on above:Performed By: #### CMP #### [facility] [address] [address] [address] Correa ChangEGFR-AF WALLISIAN>60Normal>=60The [facility] HospitalComment on above:Performed By: #### CMP #### [facility] [address] [address] [address] Sunny DotsonGFR-NON AF UXTSDHBQ22 mL/min/1.02t9Orimlinpbo low>=60The [facility] HospitalComment on above:Performed By: #### CMP #### [facility] [address] [address] [address] Sunny OrtezGlobulin (S) [Mass/Vol]3.6 g/dLNormalThHolzer HospitalComment on above:Performed By: #### CMP #### [facility] [address] [address] [address] Sunny OrtezGlucose [Mass/Vol]253 mg/dLCritically wqry45-518GpoOhiohealth Pickerington Methodist HospitalComment on above:Performed By: #### CMP #### [facility] [address] [address] [address] Sunny OrtezPotassium [Moles/Vol]4.3 mmol/LNormal3.4-5.0[facility] Comment on above:Performed By: #### CMP #### [facility] [address] [address] [address] Sunny OrtezProtein [Mass/Vol]7.1 g/dLNormal6.1-8.2[facility] Comment on above:Performed By: #### CMP #### [facility] [address] [address] [address] Sunny OrtezSodium [Moles/Vol]139 mmol/DQhuahe769-928Ynh [facility] Comment on above:Performed By: #### CMP #### [facility] [address] [place] [address] Dr. Sunny OrtezUrea nitrogen [Mass/Vol]18.0 mg/dLNormal9.0-20.0The [facility] HospitalComment on above:Performed By: #### CMP #### [facility] [address] [place] [address] Dr. Sunny OrtezUrea nitrogen/Creatinine [Mass ratio]13.5 mg/mgNoalThe Marion HospitalComment on above:Performed By: #### CMP #### [facility] [address] [place] [address] Dr. Sunny WoodallHonatalie 85-53-8709GOS6.335 uIU/mLNormal0.470-4.680The [facility] HospitalComment on above:Performed By: #### CMP #### [facility] [address] [place] [address] Dr. Sunny Landry [facility] HospitalComment on above: Result Comment: <0.34 UIU/ml HYPERTHYROID 0.34-5.60 UIU/ml EUTHYROID >5.60 UIU/ml HYPOTHYROIDPerformed By: #### CMP #### [facility] [address] [place] [address] Dr. Sunny OrtezURIC ACID SERUMon 47-38-7867Cuxna [Mass/Vol]4.9 mg/dLNormal 3.5-8.5The [facility] HospitalComment on above:Performed By: #### CMP #### [facility] [address] [place] [address] Dr. Sunny Faulknerc Metabolic Panlon 19-00-2062Bbidf gap [Moles/Vol]11 mmol/L Normal9-18[facility] ClevelandCalcium [Mass/Vol]8.9 mg/dLNormal8.5-10.2 [facility] HospitalChloride [Moles/Vol]106 mmol/BXgur50-005RrqagnfzhWooster Community HospitalCO2 [Moles/Vol]22 mmol/TXkhdpr15-05FhmlhbmxiWooster Community Hospital Creatinine [Mass/Vol]1.28 mg/dLHigh0.73-1.22[facility] Community HospitaleGFR- Amer.>60NormalCFirelands Regional Medical Center South CampusGFR/1.73 sq M predicted among non-blacks MDRD (S/P/Bld) [Vol rate/Area]58 .NormalWooster Community Hospital Comment on above:Result Comment: eGFR (Estimated GFR) Units of measure: [...] the eGFR may not accurately reflect actual GFR.Glucose [Mass/Vol]148 mg/dLHigh 74-99[facility] HospitalComment on above:Result Comment: The [place] Diabetes Association (ADA) provides guidance for cutoff [...] Standards of Medical Care in Diabetes 2016, [place] Diabetes Association. Diabetes Care. 2016.39(Suppl 1).Potassium [Moles/Vol]4.5 mmol/L Normal3.7-5.1CFirelands Regional Medical Center South CampusSodium [Moles/Vol]139 mmol/TSikhcc066-153 [facility] HospitalUrea nitrogen [Mass/Vol]10 mg/dLNormal9-24[facility] Community HospitalCNPNon 97-60-5231XSGNSzbgqbysd (UROALDENN) CLARENCE FLORES ([id number]) 1960 M Date Time Provider Department 06/21/19 DIANE DILLON PA-C During your visit today, we recorded the following information about you: Diane Dillon PA-C 06/21/2019 2:[address] and CXR with no recurrence or mets. Repeat CT and CXR in 6M. Patient to schedule on his own at [facility] [place] Dillon PA-C Pager [phone] Office [phone] Allergies As of Date: 06/21/2019 Noted Allergy Reaction NITROGLYCERIN 11/26/2018 14 - Other: See Comments Date Reviewed: 02/05/2019 Reviewed by: Diane Dillon - Fully Assessed Reason for Visit: Results [95] Primary Visit Diagnosis:Left renal mass [N28.89] Other Visit Diagnosis:Renal cell carcinoma of left kidney (HCC) [C64.2] Order(s):XR CHEST 2V FRONTAL/LAT [[id number]] Order #: [id number] FUTURE CT ABD/PEL W IVCON [[id number]] Order #: [id number] FUTURE iv contrast (will be provided with [...] Encounter Status:Closed by DIANE DILLON PA-C on 06/21/19NoParkview Health Bryan HospitalCT ABD/PEL W IVCONon 89-38-3577FM ABD/PEL W IVCON* * *Final Report* * * DATE OF EXAM: Jun 21 2019 9:40AM [facility] 0530 - CT ABD/PEL W IVCON [...] any questions regarding this interpretation, please call [phone]. If you are unable to reach us at the number above, please feel free to contact [facility] Hospital[facility] at [phone]. [id number] Arthur G.H. Bing, MD, Cancer Centeron 06-21-2019 PROGRESSHNO ID: [id number] Author: Holly Garcia (Tech) Service: ? Author Type: Art Gallery Director Type: Progress Notes Filed: 06/21/2019 2:25 PM [...] BY: Holly Garcia June 21, 2019 2:24 PMNSouthern [place] Medical CenterPROPRESBYTERIAN ESPAÑOLA HOSPITALHNO ID: [id number] Author: Holly Garcia (Tech) Service: ? Author Type: Art Gallery Director Type: Progress Notes Filed: 06/21/2019 9:51 AM [...] given.. PATIENT DISCHARGED TO: Ambulatory patient, left [place] department area. A Diagnostic radioactive procedure has taken place, with no further precautions necessary other than routine body substance precautions. More information regarding radiation safety can be found using this link: [email or web address] SIGNATURE: Holly Garcia PATIENT NAME: Clarence Flores DATE: June 21, 2019 TIME: 8:39 AM PAGER/CONTACT #:NargisWooster Community HospitalXR CHEST 2V FRONTAL/LATon [id number] CHEST 2V FRONTAL/LAT* * *Final Report* * * DATE OF [...] any questions regarding this interpretation, please call [phone]. If you are unable to reach us at the number above, please feel free to contact [facility] eRadiology at [phone]. [id number] Community HospitalCNPNon [id number] Telephone (RADTSA) CLARENCE FLORES ([id number]) 1960 M Date Time Provider Department 06/17/19 MAICO ANG (HISTORICAL) RADTSA During your visit today, we recorded the following information about you: Clarisse Alicia 06/17/2019 3:19 PM Signed Clarence Flores [id number] is coming in Tuesday 06/20 for CTs w/IV on; please sign pending ISTAT BMP as our lab's chemistry will be down that day and he will need CRE clearance prior to. Thanks Clarisse Alicia, bulkhead carpenter Jose Manuel [facility] Allergies As of Date: 06/17/2019 Noted Allergy Reaction NITROGLYCERIN 11/26/2018 14 - Other: See Comments Date Reviewed: 02/05/2019 Reviewed by: Diane Dunn) Darshana - Fully Assessed Reason for Visit: Orders [681] Primary Visit Diagnosis:Left renal mass [N28.89] [facility](s[facility]AT [facility] [SQISTBMP] Order #: [id number] FUTURE Prescriptions as of 06/17/2019 Sig: IV [...] Encounter Status:Closed by DIANE DILLON PA-C on 06/17/19NoBl[facility] [id number] Visit (UROLMN) CLARENCE FLORES ([id number]) 1960 M Date Time Provider Department 02/05/19 10:50 AM DIANE DILLON) UROLMN During your visit today, we recorded the following information about you: Pulse Blood pressure Weight Height 64/minute 179/81 120.5 kg 1.676 m Diane Dillon PA-C 02/05/2019 10:49 AM Signed [facility] PHYSICIAN FLYING [facility] POST-OPERATIVE PATIENT CC: Patient is [...] PA-C Electronically signed Referring Provider: MAICO ANG [[id number]] Allergies As of Date: 02/05/2019 Noted Allergy Reaction NITROGLYCERIN 11/26/2018 14 - Other: See Comments Date Reviewed: 02/05/2019 Reviewed by: Diane Dillon - Fully Assessed Visit Diagnosis:Renal cell carcinoma of left kidney (HCC) [C64.2] Order(s):CT ABD/PEL W IVCON [[id number]] Order #: [id number] FUTURE iv contrast (will be provided with [...] 1 EachRfl: 0 XR CHEST 2V FRONTAL/LAT [[id number]] Order #: [id number] FUTURE BASIC METABOLIC PNL [SQBMP] Order #: [id number] FUTURE Prescriptions as of 02/05/2019 Sig: HYDRALAZINE [...] Encounter Status:Closed by DIANE DILLON PA-C on 02/05/19NoParkview Health Bryan HospitalCNPTOUTREACHon [id number] Outreach (UROLMN) CLARENCE FLORES ([id number]) 1960 M Date Time Provider Department 02/05/19 DIANE DILLON) UROGIL During your visit today, we recorded the following information about you: Allergies As of Date: 02/05/2019 Noted Allergy Reaction NITROGLYCERIN 11/26/2018 14 - Other: See Comments Date Reviewed: 02/05/2019 Reviewed by: Diane Dillon - Fully Assessed Visit Diagnosis:Screening for genitourinary condition [Z13.89] Order(s):UA CHEMSTRIP ONLY [SQUA] Order #: [id number]. #:[id number] Prescriptions as of 02/05/2019 Sig: IV CONTRAST [...] Renal neoplasm [D49.519] 12/22/2018 Encounter Status:Closed by The [employer] Access MobileOMEGA on 02/22/19[facility] [id number] ID: [id number] Author: Diane Dillon Service: ? Author Type: Physician Youth Pastor Type: Progress Notes Filed: 02/05/2019 10:49 AM Note Text: [facility] PHYSICIAN FLYING [facility] POST-OPERATIVE PATIENT CC: Patient is [...] or conditions arise Diane Dillon PA-C Electronically signedNoParkview Health Bryan HospitalUrinalysbrookwood [facility]ist medical center 02-05-2019 Bilirubin, UrineNegativeNormalNegativeCleOhio State Health SystemComveterans affairs [facility] on above:Performed By: #### UA ####[facility] [address] [place], [place] [phone] (U)ClearNormalClearCleUK Healthcare on above:Performed By: #### UA ####[facility] [place], [place] [phone] (U)Yellow NormalYellowCleUK Healthcare on above:Performed By: #### UA ####[facility] [place], [place] [phone] COMMENTNormalCGlenbeigh Hospital on above:Result Comment: Microscopic not warrantedPerformed By: #### UA ####[address] [address] [address] [phone] Ql (U) NegativeNormalNegativeFlower Hospital on above:Performed By: #### UA ####[address] [address] [address]CL[address] [phone]/Blood,UrNegativeNormalNegativeFlower Hospital on above:Performed By: #### UA ####[address] [address] [address] [phone] Ql (U) NegativeNormalNegativeFlower Hospital on above:Performed By: #### UA ####[address] [address] [address] [phone]tufvcIsnmhfcjp Clinic ClevelandComment on above:Performed By: #### UA ####[address] [address] [address] [phone] Ql (U)NegativeNormalNegative [facility] on above:Performed By: #### UA ####[address] [address] [address] [phone] (Bld)6.5 Normal4.5-8.0[facility] on above:Performed By: #### UA ####[address] [phone] (U) [Mass/Vol]TraceCritically abnormalNegativeFlower Hospital on above:Performed By: #### UA ####[address] [address] [address] [phone] [place], Ur 1.553Jfznhr2.005-1.030[facility] on above:Performed By: #### UA ####[address] [address] [address] [phone] Shin CommentSEE COMMENTNormalCFirelands Regional Medical Center South Campus Comment on above:Result Comment: N/APerformed By: #### UA ####[address] [address] [address] [phone] Qn (U) NormalNormalNormalCGlenbeigh Hospital on above:Performed By: #### UA ####[address] [address] [address] [phone] Metabolic Panlon 99-95-6482Soxed gap [Moles/Vol]9 mmol/L Normal9-18[facility] on above:Performed By: #### CBCKRYSTAL, BMP ####[address] [address] [address] [phone] Emskrod [Mass/Vol]8.3 mg/dLLow8.5-10.2CFirelands Regional Medical Center South Campus Comment on above:Performed By: #### CBCKRYSTAL, BMP ####[address] [address] [address] [phone] [Moles/Vol] 109 mmol/XVulj32-631SgnllrfitFlower Hospital on above:Performed By: #### CBCDIF, BMP ####[address] [address] [address] [phone] [Moles/Vol]21 mmol/GJbp76-63HcfrzswemWooster Community Hospital Comment on above:Performed By: #### CBCDIF, BMP ####[address] [address] [address] [phone] [Mass/Vol]1.24 mg/dLHigh0.73-1.22[facility] on above: Performed By: #### CBCDIF, BMP ####[facility] [place], [place] [phone]-Phdsimu Amer.>60NormalCGlenbeigh Hospital on above:Performed By: #### NIRALI TAVERAS ####[address] [place], [place] [phone]/1.73 sq M predicted among non-blacks MDRD (S/P/Bld) [Vol rate/Area]mL/min/{1.73_m2}Normal [facility] on above:Result Comment: eGFR (Estimated GFR) Units of measure: [...] the eGFR may not accurately reflect actual GFR.Performed By: #### DARCY BMP ####[address] [place], [place] [address] Xwvocjk [Mass/Vol]117 mg/gXApli72-21ZyhlbvwfuWooster Community Hospital Comment on above:Result Comment: The [place] Diabetes Association (ADA) provides guidance for cutoff [...] Standards of Medical Care in Diabetes 2016, [place] Diabetes Association. Diabetes Care. 2016.39(Suppl 1).Performed By: #### NIRALI TAVERAS ####[address] [facility] [place] [address] Rcnfbytgm [Moles/Vol]3.8 mmol/LNormal3.7-5.1CGlenbeigh Hospital on above:Performed By: #### CBCDIF, BMP ####[address] [address] [address] [phone] [Moles/Vol] 139 mmol/UFqttjf462-476GmhdmywflFlower Hospital on above:Performed By: #### CBCDIF, BMP ####[address] [address] [place] [phone] nitrogen [Mass/Vol]16 mg/dLNormal9-24[facility] on above:Performed By: #### CBCDIF, BMP ####[address] [phone] and Differential on 75-14-1447Fkm Baso0.04 k/uLNormal<0.11CGlenbeigh Hospital on above:Performed By: #### CBCDIF, BMP ####[address] [phone] Mono1.12 k/uLHigh<0.87[facility] on above:Performed By: #### CBCDIF, BMP ####[address] [place] [phone] Neut9.63 k/uLHigh1.45-7.50[facility] on above:Performed By: #### CBCDIF, BMP ####[address] [address] [address] [place] [place] [phone] nRBC<0.01Normal<0.01[facility] on above:Performed By: #### CBCDIF, BMP ####[address] [phone]/100 WBC (Bld)0.3 %Normal [facility] on above:Performed By: #### CBCDIF, BMP ####[address] [address] [address] AveClevelPaul [address] [address] DFHGDZgfl DiffNormalCGlenbeigh Hospital on above: Performed By: #### CBCDIF, BMP ####[address] [address] [address] [phone] (Bld) [#/Vol]0.24 10*3/uLNormal <0.46[facility] on above:Performed By: #### CBCDIF, BMP ####[address] [address] [address] AveClevelPaul [address] [address] Sxdyiybwava/100 WBC (Bld)2.0 %NormalWooster Community Hospital Comment on above:Performed By: #### CBCDIF, BMP ####[address] [address] [address] [phone] distribution width (RBC) [Ratio]13.7 %Rnqvny82.5-15.0[facility] Comment on above:Performed By: #### CBCDIF, BMP ####[address] [address] [address] [phone] (Bld) [Volume fraction]39.9 %Rvcofi01.0-51.0[facility] on above:Performed By: #### CBCDIF, BMP ####[address] [address] [address] AveClevelandMallory [place] [phone] (Bld) [Mass/Vol]13.3 g/dL Fzzfms40.0-17.0[facility] on above:Performed By: #### CBCDIF, BMP ####[address] [address] [address] AveClevelandMallory [address]ille [phone] (Bld) [#/Vol]1.25 10*3/uLNormal1.00-4.00[facility] on above:Performed By: #### CBCDIF, BMP ####[address] [address] [address] [phone] Lymphocytes/100 WBC (Bld)10.2 %NormalFlower Hospital on above: Performed By: #### CBCDIF, BMP ####[address] [address] [address] [phone] (RBC) [Entitic mass]29.3 pGNormal 26.0-34.0[facility] on above:Performed By: #### CBCDIF, BMP ####[address] [place] [address] [address] [phone] TPUK (RBC) [Mass/Vol]33.3 g/sFKbrbng44.5-36.0[facility] on above:Performed By: #### CBCDIF, BMP ####[address] [place] [address] [phone] (RBC) [Entitic vol]87.9 fPVhjfot34.0-100.0[facility] on above:Performed By: #### CBCDIF, BMP ####[address] [place] [address] [phone]/100 WBC (Bld)9.1 %NormalFlower Hospital on above:Performed By: #### CBCDIF, BMP ####[address] [place] [address] [address] [phone]/100 WBC (Bld)78.4 %NormalFlower Hospital on above:Performed By: #### CBCDIF, BMP ####[address] [address] [address] [phone] /100 PKOAfazxj4YhvutilraFlower Hospital on above:Performed By: #### CBCDIF, BMP ####[address] [address] [address] [phone] mean volume (Bld) [Entitic vol]9.6 fLNormal9.0-12.7CFirelands Regional Medical Center South CampusComveterans affairs [facility] system on above:Performed By: #### CBCDIF, BMP ####[address] [address]CL[address] [phone] (Bld) [#/Vol]241 10*3/cPTgaasp459-852AoxoluwfsFlower Hospital on above:Performed By: #### CBCDIF, BMP ####[address] [address] [address] [phone] (Bld) [#/Vol] 4.54 10*6/uLNormal4.20-6.00[facility] on above:Performed By: #### CBCDIF, BMP ####[address] [address] [address] [phone] (Bld) [#/Vol]12.28 10*3/uLHigh3.70-11.00[facility] on above:Performed By: #### CBCDIF, BMP ####[address] [address] [address], [place] [phone] 33-08-2855CZBUKAUIOLN ID: [id number] Author: Clarence (Geovanna Schmidt Service: Urology Author Type: Resident Type: Progress Notes Filed: 12/25/2018 9:45 AM Note Text: [facility] UROLOGY PROGRESS NOTE Name: Clarence Flores Bed: G090 035/G090-36 Date: December 25, 2018 After Hours [place] [facility] Service Pager: [phone] ASSESSMENT AND PLAN Clarence Flores is a [...] Imaging n/a Clarence Schmidt MD Personal Pager: [phone] For weekend or after hours issues please page [place] [phone] Health Bryan HospitalPROGRSHAW [facility]ITAL ID: [id number] Author: Kate Ruiz) Lion Service: Urology Author [...] PRN - sodium chloride 0.65 % 2 [place] (AYR, OCEAN) [address] [place] EACH NOSTRIL PRN - tamsulosin ER 0.4 [...] to discharge. Signature: Kate Seymour CNP Pager: [phone] Date of service: 12/25/2018NoalCFirelands Regional Medical Center South CampusBabaptist health corbin Metabolic Panl on 84-55-2427Hretq gap [Moles/Vol]16 mmol/LNormal9-18[facility] Comment on above:Performed By: #### DARCY BMP ####[place] [address] [place]own[place], [place] [phone] [Mass/Vol] 8.7 mg/dLNormal8.5-10.2CFirelands Regional Medical Center South CampusComment on above:Performed By: #### DARCY BMP ####[place] [address] [address]own[place], [place] [phone] [Moles/Vol]104 mmol/YMgoqof85-102VcdkdaqfiWooster Community HospitalComment on above:Performed By: #### DARCY, BMP ####[facility] [place], [place] [phone] [Moles/Vol]18 mmol/EBmp67-26DdopuwzemWooster Community HospitalComment on above:Performed By: #### DARCY, BMP ####[address] [phone] [Mass/Vol]1.26 mg/dLHigh0.73-1.22W[facility]oster Community HospitalComveterans affairs ann [facility] healthcare system on above:Performed By: #### DARCY, BMP ####[place] [address] [place], [place] [phone]-Fswjihw Amer. >60NormalCGlenbeigh Hospital on above:Performed By: #### NIRALI TAVERAS ####[place] [address] [place] [address] NLH/1.73 sq M predicted among non-blacks MDRD (S/P/Bld) [Vol rate/Area]59 .NormalFlower Hospital on above:Result Comment: eGFR (Estimated GFR) Units of measure: [...] the eGFR may not accurately reflect actual GFR.Performed By: #### DARCY BMP ####[place] [address] Xbvqxvk [Mass/Vol]117 mg/qKLkha79-99VekiuxjjnWooster Community [facility] Comment on above:Result Comment: The [place] Diabetes Association (ADA) provides guidance for cutoff [...] Standards of Medical Care in Diabetes 2016, [place] [employer]. Diabetes Care. 2016.39(Suppl 1).Performed By: #### DARCY, NIRALI ####[place] [address] Pymyilnmz [Moles/Vol]4.0 mmol/LNormal3.7-5.1CG[facility] on above:Performed By: #### CBCDIF, BMP ####[place] [address] [address]CL[address] [phone] [Moles/Vol] 138 mmol/VZsoksk185-273DxpvhqssdFlower Hospital on above:Performed By: #### CBCDIF, BMP ####[place] [address] [address]CL[address] [phone] nitrogen [Mass/Vol]15 mg/dLNormal9-24[facility] on above:Performed By: #### CBCDIF, BMP ####[place] [address] [address] [place] [phone] and Differential on 49-57-2870Raa Baso0.06 k/uLNormal<0.11CGlen[facility]igh [facility] on above:Performed By: #### CBCDIF, BMP ####[place] [address] [address] [place] [phone] Mono1.82 k/uLHigh<0.87[facility] on above:Performed By: #### CBCDIF, BMP ####[place] [address] [address]CL[address] [phone] Neut13.61 k/uLHigh1.45-7.50[facility] on above:Performed By: #### CBCDIF, BMP ####[place] [address] [address] [phone] nRBC<0.01Normal<0.01[facility] on above:Performed By: #### CBCDIF, BMP ####[place] [address] [address] [phone]/100 WBC (Bld)0.4 %Normal [facility] on above:Performed By: #### CBCDIF, BMP ####[place] [address] [address] [place] [address] JNKYWGeyi DiffNormalCGlenbeigh Hospital on above: Performed By: #### CBCDIF, BMP ####[place] [address] [address]CL[address] [phone] (Bld) [#/Vol]0.03 10*3/uLNormal <0.46[facility] on above:Performed By: #### CBCDIF, BMP ####[place] [address] [address] AveCRichard Ville [phone]/100 WBC (Bld)0.2 %NormalWooster Community Hospital Comment on above:Performed By: #### CBCDIF, BMP ####[place] [address] [address]CAndrew [place] [phone] distribution width (RBC) [Ratio]13.7 %Wqptfb48.5-15.0[facility] Comment on above:Performed By: #### CBCDIF, BMP ####[place] [address] [address]CL[address] [phone] (Bld) [Volume fraction]43.5 %Lngwxf62.0-51.0[facility] on above:Performed By: #### CBCDIF, BMP ####[place] [address] [address]CL[address] [phone] (Bld) [Mass/Vol]14.5 g/dL Nqkyxc93.0-17.0[facility] on above:Performed By: #### CBCDIF, BMP ####[place] [address] [address]CL[address] [phone] (Bld) [#/Vol]1.16 10*3/uLNormal1.00-4.00[facility] on above:Performed By: #### CBCDIF, BMP ####[place] [address] [address]CL[address] [phone] Lymphocytes/100 WBC (Bld)7.0 %NormalFlower Hospital on above: Performed By: #### CBCDIF, BMP ####[place] [address] [address]CL[address] [phone] (RBC) [Entitic mass]29.3 pGNormal 26.0-34.0[facility] on above:Performed By: #### CBCDIF, BMP ####[place] [address] [address] [place] [phone] BIAA (RBC) [Mass/Vol]33.3 g/vHNsincc16.5-36.0[facility] on above:Performed By: #### CBCDIF, BMP ####[place] [address] [address]CL[address] [phone] (RBC) [Entitic vol]87.9 cCJlwzke95.0-100.0[facility] on above:Performed By: #### CBCDIF, BMP ####[place] [address] [address]CL[address] [phone]/100 WBC (Bld)10.9 %NormalFlower Hospital on above:Performed By: #### CBCDIF, BMP ####[place] [address] [address] [phone]/100 WBC (Bld)81.5 %NormalFlower Hospital on above:Result Comment: Differential confirmed by visual scan of peripheral blood smear slide.Performed By: #### CBCDIF, BMP ####[place] [address] [address]CL[address] [phone] /100 PDJCzjobm8WbejxvcclFlower Hospital on above:Performed By: #### CBCKATLYNF, BMP ####[place] [address] [address], [place] [phone] mean volume (Bld) [Entitic vol]9.6 fLNormal9.0-12.7CGlenbeigh Hospital on above:Performed By: #### CBCDIF, BMP ####[place] [address] [address], [place] [phone] (Bld) [#/Vol]278 10*3/fSZyzoqg549-716HslktxqkdFlower Hospital on above:Performed By: #### CBCDIF, BMP ####[place] [address] [address], [place] [phone] (Bld) [#/Vol] 4.95 10*6/uLNormal4.20-6.00[facility] on above:Performed By: #### CBCKATLYNF, BMP ####[place] [address] [address], [place] [phone] (Bld) [#/Vol]16.68 10*3/uLHigh3.70-11.00[facility] on above:Performed By: #### CBCKATLYNF, BMP ####[place] [address] [address] [place], [place] [phone] 63-76-5057KOEIQLODOKW ID: [id number] Author: Clarence (Geovanna Schmidt Service: Urology Author Type: Resident Type: Progress Notes Filed: 12/24/2018 10:00 AM Note Text: [facility] UROLOGY PROGRESS NOTE Name: Clarence Flores Bed: G090 035/G090-36 Date: December 24, 2018 After Hours [facility] Service Pager: [phone] ASSESSMENT AND PLAN Clarence Flores is a [...] Imaging n/a Clarence Schmidt MD Personal Pager: [phone] For weekend or after hours issues please [place] [phone] Health Defiance Hospital Metabolic Panlon 16-84-3804Bifdz gap [Moles/Vol]14 mmol/LNormal9-18[facility] HospitalComment on above: Performed By: #### DARCY, BMP ####[place] [address] [address] [place] [phone] [Mass/Vol]8.7 mg/dLNormal8.5-10.2 [facility] Centerment on above:Performed By: #### CBCKRYSTAL, BMP ####[place] [address] [address] [place] [phone] Yjywbzlg [Moles/Vol]102 mmol/RDvxohq83-962SbugkhhweWooster Community Hospital Comment on above:Performed By: #### CBCKRYSTAL, BMP ####[place] [address] [address] [place] [phone] [Moles/Vol]21 mmol/NCfk29-77ZpvfjpxlfWooster Community HospitalComveterans affairs [facility] on above:Performed By: #### CBCDIF, BMP ####[place] [address] [address] [place] [phone] [Mass/Vol]1.31 mg/dLHigh0.73-1.22[facility] on above:Performed By: #### CBCDIF, BMP ####[place] [address] [address]CDrew[address], [place] [phone]-Skirzej Amer. >60NormalCFirelands Regional Medical Center South CampusComment on above:Performed By: #### CBCDIF, BMP ####[place] [address] [address] [place] [address] QJF/1.73 sq M predicted among non-blacks MDRD (S/P/Bld) [Vol rate/Area]57 .NormalWooster Community HospitalComment on above:Result Comment: eGFR (Estimated GFR) Units of measure: [...] the eGFR may not accurately reflect actual GFR.Performed By: #### NIRALI TAVERAS ####[address] [address] Xzncxdy [Mass/Vol]121 mg/bMFamk00-55HgyteiqmzWooster Community Hospital Comment on above:Result Comment: The [place] Diabetes Association (ADA) provides guidance for cutoff [...] Standards of Medical Care in Diabetes 2016, [place] Diabetes [employer]. Diabetes Care. 2016.39(Suppl 1).Performed By: #### NIRALI TAVERAS ####[place] [address] Xgyjbiypa [Moles/Vol]4.0 mmol/LNormal3.7-5.1CFirelands Regional Medical Center South CampusComment on above:Performed By: #### NIRALI TAVERAS ####[address] [facility] [place] [phone] [Moles/Vol] 137 mmol/BHtrqoz818-207MlnpxkdmfFlower Hospital on above:Performed By: #### CBCDIF, BMP ####[facility] [address] [place], [place] [phone] nitrogen [Mass/Vol]11 mg/dLNormal9-24[facility] on above:Performed By: #### CBCDIF, BMP ####[facility] [address] [place], [place] [phone] MGT INIT ASSES on 50-67-1019EQPG MGT INIT ASSESHNO ID: [id number] Author: Cornelius Diaz (Sw) Service: Care Management Author Type: Knockdown Worker Type: Care Mgt Initial Assessment Filed: 12/23/2018 4:27 PM Note Text: CARE MANAGEMENT: ASSESSMENT AND DISCHARGE PLAN SERVICE DATE: 12/23/2018 SERVICE TIME: 4:24 PM PRIMARY CARE PHYSICIAN: Shea Singer MD ADMISSION STATUS: Observation Needs Prior to Discharge: None;Ready for Discharge 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 No Advance Directive: Current Advance Directive: Health Care Power of Brine Well Operator In Chart: Yes Up To Date [...] Home Lives With: Son Financial Resources: Employed: [employer] Primary Contact: Extended Emergency Contact Information Primary [...] 0 I feel financially burdened by my vzg-ha-ohizoq expenses for my prescription medication: Disagree completely [...] 23, 2018 TIME: 4:24 PM PAGER/CONTACT #: NormalCLakeHealth Beachwood [facility] and Differentialon 59-53-6373Yik Baso0.03 k/uLNormal<0.11CGlen[facility] on above:Performed By: #### CBCDIF, BMP ####[facility] [address] [place], [place] [phone] Mono1.36 k/uL High<0.87[facility] on above:Performed By: #### CBCDIF, BMP ####[place] [address] [address] [place] [address] Ezp Neut16.73 k/uLHigh1.45-7.50[facility] on above:Performed By: #### CBCDIF, BMP ####[place] [address] [address]CL[address] [phone] nRBC<0.01Normal<0.01 [facility] on above:Performed By: #### CBCDIF, BMP ####[place] [address] [address] [place] [address] Gwgnaaujw/100 WBC (Bld)0.2 %NormalFlower Hospital on above:Performed By: #### CBCDIF, BMP ####[place] [address] [address]CL[address] [phone] DiffNormalCGlenbeigh Hospital on above:Performed By: #### CBCDIF, BMP ####[place] [address] [address]CL[address] [phone] (Bld) [#/Vol]10*3/uLNormal<0.46[facility] on above:Performed By: #### CBCDIF, BMP ####[place] [address] [address] [place] [phone]/100 WBC (Bld)0.0 %NormalFlower Hospital on above:Performed By: #### CBCDIF, BMP ####[place] [address] [address]CL[address] [phone] distribution width (RBC) [Ratio]13.3 %Cjykci76.5-15.0[facility] on above:Performed By: #### CBCDIF, BMP ####[place] [address] [address]CL[address] [phone] (Bld) [Volume fraction]46.4 %Lgffha25.0-51.0[facility] on above:Performed By: #### CBCDIF, BMP ####[place] [address] [address] [phone] (Bld) [Mass/Vol]15.3 g/dL Zseyps63.0-17.0[facility] on above:Performed By: #### CBCDIF, BMP ####[place] [address] [address] [phone] (Bld) [#/Vol]0.94 10*3/uLLow1.00-4.00[facility] on above:Performed By: #### CBCDIF, BMP ####[address] [place] [phone] Lymphocytes/100 WBC (Bld)4.9 %NormalFlower Hospital on above: Performed By: #### CBCDIF, BMP ####[place] [address] [address] [place] [phone] (RBC) [Entitic mass]28.2 pGNormal 26.0-34.0[facility] on above:Performed By: #### CBCDIF, BMP ####[place] [address] [address] [place] [phone] RDIX (RBC) [Mass/Vol]33.0 g/zWItcfze50.5-36.0[facility] on above:Performed By: #### CBCDIF, BMP ####[place] [address] [address] [phone] (RBC) [Entitic vol]85.5 qVNkwxyh48.0-100.0[facility] on above:Performed By: #### CBCDIF, BMP ####[place] [address] [address]CL[address] [phone]/100 WBC (Bld)7.1 %[facility] on above:Performed By: #### CBCDIF, BMP ####[place] [address] [address], [place] [phone]/100 WBC (Bld)87.8 %NormalFlower Hospital on above:Performed By: #### CBCDIF, BMP ####[place] [address] [address]CL[address] [phone] /100 HKTCggyiy5JfvvmhviwFlower Hospital on above:Performed By: #### CBCDIF, BMP ####[place] [address] [address], [place] [phone] mean volume (Bld) [Entitic vol]9.5 fLNormal9.0-12.7CGlenbeigh Hospital on above:Performed By: #### CBCDIF, BMP ####[place] [address] [address]Jess[address] [place] [phone] (Bld) [#/Vol]315 10*3/zVSwnzsw525-828PfiotsnfiFlower Hospital on above:Performed By: #### CBCDIF, BMP ####[place] [address] [address] AveCDrew[address], [place] [phone] (Bld) [#/Vol] 5.43 10*6/uLNormal4.20-6.00[facility] on above:Performed By: #### CBCDIF, BMP ####[place] [address] [address], [place] [phone] (Bld) [#/Vol]19.06 10*3/uLHigh3.70-11.00[facility] on above:Performed By: #### CBCDIF, BMP ####[facility] [address] [place], [place] [phone] 04-08-9219GNPBTBUJORM ID: [id number] Author: Clarence Schmidt Service: Urology Author Type: Resident Type: Progress Notes Filed: 12/23/2018 8:40 AM Note Text: [facility] UROLOGY PROGRESS NOTE Name: Clarence Flores Bed: G090 035/G090-36 Date: December 23, 2018 After Hours [facility] Urology Service Pager: [phone] ASSESSMENT AND PLAN Clarence Flores is a [...] Imaging n/a Clarence Schmidt MD Personal Pager: [phone] For weekend or after hours issues please page the [place]call [place] [phone] Regional Medical Center South CampusANES Ferny 31-82-5595TPSC POSTHNO ID: [id number] Author: Salvatore Lacey Service: Anesthesiology Author Type: [...] 22, 2018 TIME: 12:16 PM PAGER/CONTACT #: [phone] Health Defiance Hospital Metabolic Panlon 57-64-9636Lxkzq gap [Moles/Vol]10 mmol/LNormal9-18[facility] on above:Performed By: #### DARCY BMP ####[place] [address] [address] [place], [place] [phone] [Mass/Vol]8.0 mg/dLLow8.5-10.2CGlenbeigh Hospital on above: Performed By: #### DARCY BMP ####[place] [address] [address], [place] [phone] [Moles/Vol]105 mmol/ODdwmtx69-863 [facility] on above:Performed By: #### CBCDIF, BMP ####[facility] Av[place], [place] [address] DV2 [Moles/Vol]23 mmol/FApgzwt73-26HclkfbmjrFlower Hospital on above:Performed By: #### CBCDIF, BMP ####[facility] [place], [place] [phone] [Mass/Vol]1.17 mg/dLNormal 0.73-1.22[facility] on above:Performed By: #### CBCDIF, BMP ####[place] [address] [place] [phone] pYFG- Amer.>60NormalCGlenbeigh Hospital on above:Performed By: #### NIRALI TAVERAS ####[place] [address] [place], [place] [phone]/1.73 sq M predicted among non- blacks MDRD (S/P/Bld) [Vol rate/Area]mL/min/{1.73_m2}NormalFlower Hospital on above:Result Comment: eGFR (Estimated GFR) Units of measure: [...] the eGFR may not accurately reflect actual GFR.Performed By: #### NIRALI TAVERAS ####[place] [address] Qlysnli [Mass/Vol]168 mg/qFQxwe27-65WfexfskxnWooster Community Hospital Comment on above:Result Comment: The [place] Diabetes Association (ADA) provides guidance for cutoff [...] Standards of Medical Care in Diabetes 2016, [place] Diabetes Association. Diabetes Care. 2016.39(Suppl 1).Performed By: #### NIRALI TAVERAS ####[place] [address] Vyzmipfyw [Moles/Vol]5.5 mmol/LHigh3.7-5.1CFirelands Regional Medical Center South Campus Comment on above:Result Comment: Results may be falsely increased due to interference by hemolysis. Suggest reorder as clinically indicated.Performed By: #### CBCDIF, BMP ####[place] [address] [address] AvMichel[place] [phone] [Moles/Vol]138 mmol/PFrtqyu545-131PwhqqrtydFlower Hospital on above:Performed By: #### CBCDIF, BMP ####[place] [address] [address] AvMichel[place] [phone] nitrogen [Mass/Vol]9 mg/dLNormal9-24[facility] on above:Performed By: #### CBCDIF, BMP ####[place] [address] [address] Av[place] [phone] and Differentialon 88-68-4824Gcw Baso0.07 k/uLNormal <0.11CGlenbeigh Hospital on above:Performed By: #### CBCDIF, BMP ####[place] [address] [place] [phone] Mono0.89 k/uLHigh<0.87[facility] on above:Performed By: #### CBCDIF, BMP ####[place] [address] [address] AveCCheryl Ville [phone] Neut13.53 k/uLHigh1.45-7.50 [facility] on above:Performed By: #### CBCDIF, BMP ####[place] [address] [address] AvMichel[place] [phone] nRBC<0.01Normal<0.01[facility] on above:Performed By: #### CBCDIF, BMP ####[place] [address] [address] [place] [phone]/100 WBC (Bld)0.4 %Normal [facility] on above:Performed By: #### CBCDIF, BMP ####[place] [address] [address]CAndrew [place] [address] HADHTBnaw DiffNormalClevelMcCullough-Hyde Memorial Hospital on above: Performed By: #### CBCDIF, BMP ####[place] [address] [address] [place] [phone] (Bld) [#/Vol]0.06 10*3/uLNormal <0.46[facility] on above:Performed By: #### CBCDIF, BMP ####[place] [address] [address] [place] [address] Jztachtphwo/100 WBC (Bld)0.4 %NormalWooster Community Hospital Comment on above:Performed By: #### CBCDIF, BMP ####[place] [address] [address]CL[address] [phone] distribution width (RBC) [Ratio]13.6 %Mrikcw01.5-15.0[facility] Comment on above:Performed By: #### CBCDIF, BMP ####[place] [address] [address]CL[address] [place] [phone] (Bld) [Volume fraction]46.4 %Syfzxo61.0-51.0[facility] on above:Performed By: #### CBCDIF, BMP ####[place] [address] [address]CL[address] [place] [phone] (Bld) [Mass/Vol]15.4 g/dL Atpcmm08.0-17.0[facility] on above:Performed By: #### CBCDIF, BMP ####[place] [address] [address]CL[address] [phone] (Bld) [#/Vol]1.09 10*3/uLNormal1.00-4.00[facility] on above:Performed By: #### CBCDIF, BMP ####[place] [address]CL[address] [place] [phone] Lymphocytes/100 WBC (Bld)7.0 %NormalFlower Hospital on above: Performed By: #### CBCDIF, BMP ####[place] [address] [address]CL[address] [place] [phone] (RBC) [Entitic mass]28.7 pGNormal 26.0-34.0[facility] on above:Performed By: #### CBCDIF, BMP ####[place] [address] [address] [place] [phone] AWNR (RBC) [Mass/Vol]33.2 g/xSMpmznr50.5-36.0[facility] on above:Performed By: #### CBCDIF, BMP ####[place] [address] [address]CL[address] [place] [phone] (RBC) [Entitic vol]86.4 cGEkfwof26.0-100.0[facility] on above:Performed By: #### CBCDIF, BMP ####[place] [address] [address] AveClevelClaire Ville [phone]/100 WBC (Bld)5.7 %NormalFlower Hospital on above:Performed By: #### CBCDIF, BMP ####[place] [address] [address]CL[address] [place] [phone]/100 WBC (Bld)86.5 %NormalFlower Hospital on above:Performed By: #### CBCDIF, BMP ####[place] [address] [address]CL[address] [place] [phone] /100 SXPPwmxww0JegpviirtFlower Hospital on above:Performed By: #### DARCY, BMP ####[place] [phone] mean volume (Bld) [Entitic vol]9.8 fLNormal9.0-12.7CGlenbeigh Hospital on above:Performed By: #### DARCY, BMP ####[place] [phone] (Bld) [#/Vol]263 10*3/mCMdpatq673-975MpdtiayoeFlower Hospital on above:Performed By: #### DARCY, BMP ####[place] [phone] (Bld) [#/Vol] 5.37 10*6/uLNormal4.20-6.00[facility] on above:Performed By: #### DARCY, BMP ####[place] [phone] (Bld) [#/Vol]15.64 10*3/uLHigh3.70-11.00[facility] on above:Performed By: #### DARCY, BMP ####[place] [phone] 87-60-4471EIACKzpaps TextNoalCFirelands Regional Medical Center South CampusNVIBRA [facility] PROGon 76-01-1981KLIDMXD PROLAUREN ID: [id number] Author: Yoly SandersRn) FIORELLA De Jesus Service: Nursing Author Type: Registered Nurse Type: [...] Yoly De Jesus RN MSN In Department: [facility] HospitalOPERAT[facility] NOon 30-52-7493FYGOLLZHJ NOHNO ID: [id number] Author: Cyrus Justice Service: Urology Author Type: Resident Type: Operative Report Filed: 12/22/2018 11:07 AM Note Text: Attestation signed by Maico Ang at 12/22/2018 11:58 AM . OPERATIVE/PROCEDURE REPORT LOG ID: [id number] Surgery/Procedure Date: 12/22/2018 Incision/Procedure Start Time: 8:19 AM Incision Close/Procedure End Time: 10:48 AM Surgeon(s)/Proceduralist(s) and Youth Pastor(s): Surgeon(s) and Role: * Maico Ang - [...] robotic ports and one 12-mm airseal assistant to the vice president port were placed. The robot was then [...] vision. We then extended our 12mm assistant to the vice president port site cephalad and extracted our specimen through this. We then mobilized his umbilical hernia sac. Herniated mesentery was delivered out of the hernia sac and sac dissected completely free off the skin. The fascia was then closed using interrupted umxpgo-cy-lbvar 0-prolene sutures. 3-0 vicryl was used to [...] neoplasm Tissue Kidney taken by [facility] Routine 2.hernia sac Tissue taken by [facility] Pathology Routine Implantable Devices: None Drains: 10-flat SHELBY drain and jacques catheter (18-armenian coude with 10cc balloon) Complications: None Accidental [...] 22, 2018 TIME: 10:48 AM PAGER/CONTACT #: [phone] Hospital 09-17-6409PGQBHIINBEZ ID: [id number] Author: Clarence Schmidt Service: Urology Author Type: Resident Type: Progress Notes Filed: 12/22/2018 4:14 PM Note Text: [facility] UROLOGY PROGRESS NOTE Name: Clarence Flores Bed: G090 035/G090-36 Date: December 22, 2018 After Hours [facility] Service Pager: [phone] ASSESSMENT AND PLAN Clarence Flores is a [...] Imaging n/a Clarence Schmidt MD Personal Pager: [phone] For weekend or after hours issues please page the on-call urology [place]ager at [phone] Health Bryan HospitalPROGRESSO ID: [id number] Author: Valeria (Rn) FIORELLA Moreno Service: ? Author Type: Registered Nurse Type: Progress Notes Filed: 12/22/2018 2:26 PM Note Text: Admission/Transfer Note PATIENT NAME: Clarence Flores Patient admitted from PACU via stretcher in stable condition. Actions taken: Patient oriented to room, call light function, prescribed activities, Patient rights and Quiet at night. This note was completed by: Valeria Moreno RNNoParkview Health Bryan Hospital Potassiumon 05-25-2620Tccbmcvhz [Moles/Vol]4.2 mmol/LNormal3.7-5.1CFirelands Regional Medical Center South CampusComment on above:Performed By: #### K1 ####[facility] [address] [place], [place] [phone] PATHOLOGYon 12-41-9633SZTEGGQJ PATHOLOGYSpecimen originated from [facility] Specimen #: [id number] Submitting Physician: MAICO ANG (Q10) FINAL DIAGNOSIS [...] this case and concurs with the diagnosis. RMPablo/colt 12/23/2018 SYNOPTIC REPORT OF [facility] PATHOLOGIC FINDINGS [...] Pathologic Findings in Nonneoplastic Kidney: Insufficient tissue Buyer Planner Tumor Block: Specify: A1 Meño Hamilton MD (Electronic Signature) SPECIMEN SUBMITTED [...] appear to extend beyond the capsular surface. [employer] sections are submitted as follows: A1-A3 mass with renal sinus/parenchymal margin, A4-A5 mass with capsular surface. WE/glalistair 12/22/2018 B. Received fresh labeled hernia sac is a segment of cote pink fibromembranous soft tissue measuring 4.7 x 1.9 x 0.6 cm. No nodularity or induration is identified. [employer]anner sections are submitted in formalin in cassette B1. VINICIO/melchor 12/22/2018 Gross examination performed at [facility] [place] [address] Date of Report: 12/24/2018 Date of Procedure: 12/22/2018 Date of Receipt: 12/22/2018 Submitted by: MAICO ANG ([id number]) Location: 0 Diagnostic interpretation performed at [facility] [facility] [place] [address]. CLIA Number: [id number] Clinic ClevelandAPTT on 94-83-4749oZFC Coag (Bld) [Time]28.8 wIcqrvk96.0-32.4CGlenbeigh Hospital on above:Result Comment: Unfractionated Heparin Therapeutic Ranges: Standard Heparin Nomogram: 53 to 78 seconds (anti-Xa level of 0.3 to 0.7 U/ml) Low Dose/ACS Nomogram: 49 to 67 seconds (anti-Xa level of 0.2 to 0.5 U/ml) Stroke Treatment Nomogram: 49 to 67 seconds (anti-Xa level of 0.2 to 0.5 U/ml) Note: The APTT therapeutic range has been determined for the current lot of laboratory APTT reagentin use throughout the [facility]. Performed By: #### PT, PTT, CBC, CMP #### [place] [address] GIEml 55-80-2622Ltfvorsu nRBC<0.01Normal<0.01[facility] on above:Performed By: #### PT, PTT, CBC, CMP #### [place] [phone] distribution width (RBC) [Ratio]13.2 %Oewxxi76.5-15.0 [facility] on above:Performed By: #### PT, PTT, CBC, CMP #### [place] [phone] (Bld) [Volume fraction]46.7 %Avxtgq48.0-51.0[facility] on above:Performed By: #### PT, PTT, CBC, CMP #### [place] [phone] (Bld) [Mass/Vol]15.7 g/gJMkoija08.0-17.0[facility] on above:Performed By: #### PT, PTT, CBC, CMP #### [place] [phone] (RBC) [Entitic mass]28.6 lCXztlev37.0-34.0[facility] on above:Performed By: #### PT, PTT, CBC, CMP #### [place] [phone] (RBC) [Mass/Vol]33.6 g/sZHluxdo27.5-36.0[facility] on above:Performed By: #### PT, PTT, CBC, CMP #### [place] [id number] [place] [address] QTG (RBC) [Entitic vol]85.2 iEPmpyjk19.0-100.0[facility] on above:Performed By: #### PT, PTT, CBC, CMP #### [place] [address] Xppekcqb mean volume (Bld) [Entitic vol]9.9 fLNormal9.0-12.7 [facility] on above:Performed By: #### PT, PTT, CBC, CMP #### [place] [address] Cktldecsl (Bld) [#/Vol]322 10*3/yVYculdi813-484NzlxvoiudFlower Hospital on above:Performed By: #### PT, PTT, CBC, CMP #### [place] [address] QFC (Bld) [#/Vol]5.48 10*6/uLNormal4.20-6.00[facility] on above:Performed By: #### PT, PTT, CBC, CMP #### [place] [address] NCT (Bld) [#/Vol]9.33 10*3/uLNormal3.70-11.00[facility] on above:Performed By: #### PT, PTT, CBC, CMP #### [place] [phone] 86-70-8837HOFZDhffbt Visit (PSSCMN) CLARENCE FLORES ([id number]) 1960 M Date Time Provider Department 12/17/18 12:00 PM [facility] PSSCMN During your visit [...] PAGER/CONTACT #: addendum labs and ekg to [facility]; Aimee Romero RN Lab Value Units [...] 8:41:34 AM ? Referring Provider: MAICO ANG [[id number]] Allergies As of Date: 12/17/2018 Noted Allergy [...] Chart Close Cosign Accepted by: PERCY BERTRAND MD[[id number]] Chart Close Cosign Accepted on: FriDec 17, 2018 12:54 PMNormalSelect Medical Specialty Hospital - CantonOVFairview Park Hospitalice Visit (UROLMN) CLARENCE FLORES ([id number]) 1960 M Date Time Provider Department 12/17/18 9:15 AM JESSICA HERRERA (AMBREEN) FRIDA During your visit today, we recorded the following information about you: Pulse Blood pressure Weight Height 64/minute 169/96 119.8 kg 1.676 m Jessica Herrera CNP 12/17/2018 9:57 AM Signed UROLOGY SURGICAL HANDP SERVICE DATE: 12/17/2018 REFERRING PROVIDER: Maico Ang MD [address] [facility] [address] PCP: Shea Singer MD GENDER: SUBJECTIVE CHIEF COMPLAINT: Pre-op exam [...] or problems. No history of angina, CHF, [place], cardiac surgery of stents. +history of HTN [...] problems. 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 Pre-op Date: December 16, 2018 Date of Procedure: 12/22/2018 Procedure/Surgery: Robotic L partial Nx Diagnosis: L renal mass Primary Surgeon: MD Allie, [facility] Healthquest Score: tbd BP 169/96 (BP Site: [...] CNP Electronically signed Referring Provider: MAICO ANG [[id number]] Allergies As of Date: 12/17/2018 Noted Allergy Reaction NITROGLYCERIN 11/26/2018 14 - Other: See Comments Date Reviewed: 12/17/2018 Reviewed by: Jessica Ruiz) Summer - Fully Assessed Visit Diagnosis:Left renal mass [N28.89] Prescriptions as of 12/17/2018 Sig: HYDRALAZINE 50 MG TABLET Take 1 tablet by mouth twice * METOPROLOL SUCCINATE ER 25 MG* Take 1 tablet by mouth twice * Problem List As Of Date 12/17/2018 Noted Resolved Left renal mass [N28.89] Encounter Status:Closed by JESSICA HERRERA CNP on 12/17/18NormalCTrinity [facility] Metabolic Panelon 13-61-4437Pifaglr [Mass/Vol]4.3 g/dLNormal 3.9-4.9CGlenbeigh Hospital on above:Performed By: #### PT, PTT, CBC, CMP ####[facility] [address] [place], [place] [phone] [Catalytic activity/Vol]56 U/MVpmsec51-309XaovjcyxiFlower Hospital on above:Performed By: #### PT, PTT, CBC, CMP ####[facility] [address] [place], [place] [phone] [Catalytic activity/Vol]22 U/SQyrtcn17-12LyxwwpvwiFlower Hospital on above:Performed By: #### PT, PTT, CBC, CMP ####[facility] [place] [address] [facility] [place] [phone] gap [Moles/Vol]13 mmol/LNormal 9-18[facility] on above:Performed By: #### PT, PTT, CBC, CMP ####[place] [address] [place], [place] [phone] [Catalytic activity/Vol]25 U/DPrdhaf42-76PcbamvvpjFlower Hospital on above:Performed By: #### PT, PTT, CBC, CMP ####[address] [place], [place] [phone] [Mass/Vol]0.4 mg/dLNormal0.2-1.3CGlenbeigh Hospital on above: Performed By: #### PT, PTT, CBC, CMP ####[address] [phone] [Mass/Vol]9.3 mg/dLNormal 8.5-10.2CGlenbeigh Hospital on above:Performed By: #### PT, PTT, CBC, CMP ####[address] [phone] [Moles/Vol]105 mmol/MTxnpix16-666SrxmnxffwFlower Hospital on above:Performed By: #### PT, PTT, CBC, CMP ####[place] [address] [place], [place] [phone] [Moles/Vol]21 mmol/YAsq51-98GdjdqbudmFlower Hospital on above:Performed By: #### PT, PTT, CBC, CMP ####[address] [place], [place] [phone] [Mass/Vol]1.20 mg/dLNormal 0.73-1.22[facility] on above:Performed By: #### PT, PTT, CBC, CMP ####[address], [place] [phone]-Phhpdne Amer.>60NormalCGlenbeigh Hospital on above:Performed By: #### PT, PTT, CBC, CMP ####[facility] [place], [place] [phone]/1.73 sq M predicted among non-blacks MDRD (S/P/Bld) [Vol rate/Area]mL/min/{1.73_m2}Normal [facility] on above:Result Comment: eGFR (Estimated GFR) Units of measure: [...] the eGFR may not accurately reflect actual GFR.Performed By: #### PT, PTT, CBC, CMP ####[place] [address] [place], [place] [phone] [Mass/Vol]105 mg/eBObri34-52UyulrouifWooster Community Hospital Comment on above:Result Comment: The [place] Diabetes Association (ADA) provides guidance for cutoff [...] Standards of Medical Care in Diabetes 2016, [place] Diabetes Association. Diabetes Care. 2016.39(Suppl 1).Performed By: #### PT, PTT, CBC, CMP ####[place] [address] [phone] [Moles/Vol]4.0 mmol/LNormal3.7-5.1CGlenbeigh Hospital on above:Performed By: #### PT, PTT, CBC, CMP ####[address] [phone] [Mass/Vol]7.1 g/dLNormal6.3-8.0[facility] on above: Performed By: #### PT, PTT, CBC, CMP ####[address] [phone] [Moles/Vol]139 mmol/LNormal 136-144[facility] on above:Performed By: #### PT, PTT, CBC, CMP ####[address] [phone] nitrogen [Mass/Vol]13 mg/dLNormal9-24[facility] on above:Performed By: #### PT, PTT, CBC, CMP ####[address] [phone] Blood Typeon 47-86-3265DSZ/RH(D)PositiveNormalCGlenbeigh Hospital on above:Performed By: #### CONABO ####[address] [phone] COMPLETEon 84-07-8541FFF COMPLETENAME : RENACLARENCE PID : [id number] : 1960 Gender : Male Race : ORD : [id number] Procedure Date : Dec 17 2018 10:39:05 Edit Date : Dec 18 2018 08:41:40 Diagnosis:NORMAL SINUS RHYTHM NORMAL ECG Confirmed by TARIQ DRUMMOND MD ([id number]) on 12/18/2018 8:41:34 AM Ventricular Rate : 63 BPM Atrial Rate : 63 BPM P-R Interval : 160 ms QRS Duration : 94 ms Q-T Interval : 420 ms QTC Calculation(Bazett) : 429 ms P Gobles : 36 degrees R Gobles : 69 degrees T Gobles : 80 degrees Test Reason : Location : 119 : A17 A17 Overread By : TARIQ DRUMMOND MD Edited By : TARIQ DRUMMOND MD Referred By : MAICO ANG Acquired by : JAYLEN CHAVEZOhioHealth O'Bleness [facility] 21-42-0562UGQJIDRQQUJ ID: [id number] Author: Aimee Richards (Rn) Linda Service: ? [...] PAGER/CONTACT #: addendum labs and ekg to [facility]; Aimee Romero RN Lab Value Units [...] DRUMMOND MD (65) on 12/18/2018 8:41:34 AM ?NormalWooster Community HospitalProtimeon 47-00-8696BH Coag (PPP) [Time]10.8 s Normal9.7-13.0Wooster Community HospitalComment on above:Performed By: #### PT, PTT, CBC, CMP #### [facility] [address] [place] [address] [place] Coag (PPP) [Time]1.0 sNormal0.9-1.3CFirelands Regional Medical Center South Campus Comment on above:Result Comment: Vitamin K Antagonist (VKA) Therapeutic Range: INR 2 to 3 (Target INR of 2.5) Note: For patients treated with VKA drugs, such as warfarin, the [place] College of Chest Physicians 2012 Guideline recommends [...] Chest 2012, 141:7S-47S Pablito RA, et al. [facility] 2017, 70: 252-289Performed By: #### PT, PTT, CBC, CMP #### [facility] [address] [place], [place] [address] Wtxd and SCR (30D)on 94-52-1460VKP/RH(D)PositiveNormalCFirelands Regional Medical Center South CampusComment on above:Performed By: #### TSCR30 ####[facility] [address] [place], [place] [phone] 57-70-7646SGTOHBNUSVZFMqdkkjy Outreach (UROLMN) CLARENCE FLORES ([id number]) 1960 M Date Time Provider Department 12/16/18 JESSICA HERRERA (STUDENT RECORDS COORDINATOR) UROGIL During your visit today, we recorded the following information about you: Allergies As of Date: 12/16/2018 Noted Allergy Reaction NITROGLYCERIN 11/26/2018 14 - Other: See Comments Date Reviewed: 11/26/2018 Reviewed by: Monica Shah - Fully Assessed Visit Diagnosis:Screening for genitourinary condition [Z13.89] Order(s):UA CHEMSTRIP ONLY [SQUA] Order #: [id number] Prescriptions as of 12/16/2018 Sig: OXYCODONE 5 [...] Left renal mass [N28.89] Encounter Status:Closed by STEPHANE, PRODUSER on 12/31/18Fire[facility] Regional Medical CenterTORY PHYSICALon 28-33-4847QYLWSJG PHYSICALHNO ID: [id number] Author: Jessica Herrera Service: ? Author Type: Nurse Practitioner Type: HANDP Filed: 12/17/2018 9:57 AM Note Text: UROLOGY SURGICAL HANDP SERVICE DATE: 12/17/2018 REFERRING PROVIDER: Maico Ang MD [address] [facility] [address] PCP: Shea Singer MD GENDER: SUBJECTIVE CHIEF COMPLAINT: Pre-op exam [...] or problems. No history of angina, CHF, [place], cardiac surgery of stents. +history of HTN [...] problems. 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 Pre-op Date: December 16, 2018 Date of Procedure: 12/22/2018 Procedure/Surgery: Robotic L partial Nx Diagnosis: L renal mass Primary Surgeon: MD Allie, [facility] Healthquest Score: tbd BP 169/96 (BP Site: [...] LABS and EKG. Jessica Herrera CNP Electronically signedCleveland ClinicCNOV 39-11-6762ZECLYvsmsc Visit (UROLMN) CLARENCE FLORES ([id number]) 1960 M Date Time Provider Department 11/26/18 9:00 AM MAICO ANG During your visit today, we recorded the following information about you: Pulse Blood pressure Weight Height 67/minute 165/98 118 kg 1.676 m Maico Ang MD 11/29/2018 6:01 AM Signed [facility] NEW PATIENT HISTORY AND PHYSICAL EXAM PATIENT INFO: Clarence Flores 58 year old REFERRING M.D.: Damien Sales MD [address] [facility] [address] CHIEF COMPLAINT: left renal mass 58 y/o [...] file Gets together: Not on file Attends samaritan service: Not on file Active member of [...] PLAN: Per Staff Benton Dillon PA-C Pager [phone] Office [phone] I saw and evaluated the patient; the history and exam were reviewed with the PA/resident and confirmed by me; and the plan is outlined below. healthy 58 yr obese male with L lower pole [address] reviewed DW pt and family rec attempt RPNx they agree to proceed, will schedule Maico Ang MD Referring Provider: DAMIEN SALES [[id number]] Allergies As of Date: 11/26/2018 Noted Allergy [...] Encounter Status:Closed by MAICO ANG MD on 11/29/18[facility] [id number]:Clarence Flores MRN: Height:5' 6 (1.676 m) Weight:264 [...] % 12/17/2018 51.0 39.0 Progress Notes ([facility]): Aimee Romero RN 12/21/2018 [...] PAGER/CONTACT #: addendum labs and ekg to [facility]; Aimee Romero RN Lab Value Units [...] Maico Ang MD 11/29/2018 6:01 AM Signed [facility] NEW PATIENT HISTORY AND PHYSICAL EXAM PATIENT INFO: Clarence Flores 58 year old REFERRING M.D.: Damien Sales MD [address] [facility] [address] CHIEF COMPLAINT: left renal mass 58 y/o [...] file Gets together: Not on file Attends samaritan service: Not on file Active member of [...] PLAN: Per Staff Benton Dillon PA-C Pager [phone] Office [phone] I saw and evaluated the patient; the history and exam were reviewed with the PA/resident and confirmed by me; and the plan is outlined below. healthy 58 yr obese male with L lower pole [address] reviewed DW pt and family rec attempt RPNx they agree to proceed, will schedule Maico Ang MD Previous VersionNoParkview Health Bryan HospitalPROESSon [id number] ID: [id number] Author: Maico Ang Service: ? Author Type: Physician Type: Progress Notes Filed: 11/29/2018 6:01 AM Note Text: [facility] NEW PATIENT HISTORY AND PHYSICAL EXAM PATIENT INFO: Clarence Flores 58 year old REFERRING M.D.: Damien Sales MD [address] [facility] [address] CHIEF COMPLAINT: left renal mass 58 y/o [...] file Gets together: Not on file Attends samaritan service: Not on file Active member of [...] PLAN: Per Staff Benton Dillon PA-C Pager [phone] Office [phone] I saw and evaluated the patient; the history and exam were reviewed with the PA/resident and confirmed by me; and the plan is outlined below. healthy 58 yr obese male with L lower pole [address] reviewed DW pt and family rec attempt RPNx they agree to proceed, will schedule Maico Ang MDNormalCFirelands Regional Medical Center South CampusOT-CT CHEST W CON IMPORTon 68-66-1120JY-CT CHEST W CON IMPORTImages were obtained outside of [facility] [id number]_IDCSIACMarietta Memorial HospitalOT-CT ABDOMEN WO/W CON IMPORTon 24-00-8416HD-CT ABDOMEN WO/W CON IMPORTImages were obtained outside of [facility] [id number]_IDCSIACNNSouthern [place] Medical CenterCT-CT ABD/PELVIS WO CON IMPORTon 71-43-6028FP-CT ABD/PELVIS WO CON IMPORTImages were obtained outside of [facility] [id number]_[facility] FRANCISCAN HEALTHCARESIACMarietta Memorial Hospital Vital Signs Date TimeVital SignValuePerforming TkazfrshkBptlnjid01-92-8985 15:22-0400Body ezhjun148.6 cmPaul Candace DO Work Phone: [facility] CenterYlpvaugezg78-61-3369 15:22-0400Body mass index (BMI) [Ratio]34.7 kg/m2Paul Biedenbach DO Work Phone: [phone] [place], [place] [address]Xkyvafczyk25-64-5679 15:22-0400Body rjeymk41.52 kgPaul Biedenbach DO Work Phone: [phone])[address]09-17-2025 15:47-0400Body qxibju458.6 cmAndra Ramirez DREDGE OPERATOR-STUDENT RECORDS COORDINATOR Work Phone: [phone] [place], [place] 9967809-17-2025 15:47-0400 Body mass index (BMI) [Ratio]39 kg/b7Dswezpaul Ramirez DREDGE OPERATOR-STUDENT RECORDS COORDINATOR Work Phone: [phone])[address]09-17-2025 15:47-0400 Body .59 kgAndra Ramirez DREDGE OPERATOR-STUDENT RECORDS COORDINATOR Work Phone: [phone])[address]09-17-2025 15:47-0400 Diastolic blood lgvyywqh81 mm[Hg]Andra Ramirez DREDGE OPERATOR-STUDENT RECORDS COORDINATOR Work Phone: [phone]09-17-2025 15:47-0400 Heart rate68 /minDchuy Ramirez DREDGE OPERATOR-STUDENT RECORDS COORDINATOR Work Phone: [phone]09-17-2025 15:47-0400 Systolic blood yhrctoyf526 mm[Hg]Andra Ramirez DREDGE OPERATOR-STUDENT RECORDS COORDINATOR Work Phone: [phone])[address]08-15-2025 15:53-0400 Body .6 cmPaul Biedenbach DO Work Phone: [phone] [place], [place] 4542008-15-2025 15:53-0400Body mass index (BMI) [Ratio]34.7 kg/m2Paul Biedenbach DO Work Phone: [phone] [place], [place] [address]Bbnlcvcmpc35-88-7192 15:53-0400Body dmepri96.52 kgPaul Biedenbach DO Work Phone: [facility] CenterXwowyodepc70-12-9837 15:35-0400Body .6 cmPaul Biedenbach DO Work Phone: [phone]07-25-2025 15:35-0400Body mass index (BMI) [Ratio]34.7 kg/m2Paul Biedenbach DO Work Phone: 1(517)[facility] [place], [place] [address]Ywixvbelre21-59-8016 15:35-0400Body yttygq03.52 kgPaul Biedenbach DO Work Phone: [phone])[facility] [place], [place] [address]Hjseffhqhj33-56-8169 15:41-0400Body .6 cmPaul Biedenbach DO Work Phone: [phone])[facility] [place], [place] [address]Oopdrvxljg52-59-0680 15:41-0400Body mass index (BMI) [Ratio]34.7 kg/m2Paul Biedenbach DO Work Phone: [phone])[facility] [place], [place] [address]Iawvbwysgj62-58-7617 15:41-0400Body .52 kgPaul Biedenbach DO Work Phone: 1(555)[facility] [place], [place] [address]Lfzjnmxfni84-10-2580 15:39-0400Body zxeldq271.6 cmPaul Biedenbach DO Work Phone: [phone] [place], [place] 4542005-09-2025 15:39-0400Body mass index (BMI) [Ratio]34.7 kg/m2Paul Biedenbach DO Work Phone: [phone])[facility] [place], [place] [address]Opmqbomklc01-95-0472 15:39-0400Body xgaowp90.52 kgPaul Biedenbach DO Work Phone: [phone])[facility] [place], [place] [address]Eezeredhyh77-79-0604 15:51-0400Body tczinz482.6 cmPaul Biedenbach DO Work Phone: [phone])[facility] [place], [place] [address]Ewdfpfahup26-21-6193 15:51-0400Body mass index (BMI) [Ratio]34.7 kg/m2Paul Biedenbach DO Work Phone: [phone])[facility] [place], [place] [address]Izjtshongf75-44-2329 15:51-0400Body zjtyxm74.52 kgPaul Biedenbach DO Work Phone: [phone])[facility] [place], [place] [address]Oqfhliwlji30-24-8655 10:15-0400Body .6 cmWistephany Morelos DO Work Phone: [facility]03-27-2025 10:15-0400 Body mass index (BMI) [Ratio]36.64 kg/s2QhyuujfMike Morelos DO Work Phone: [facility]03-27-2025 10:15-0400 Body ftiewp106.97 kgMike Morelos DO Work Phone: [facility]03-27-2025 10:15-0400 Diastolic blood yxwxjzho90 mm[Hg]Mike Morelos DO Work Phone: [facility]03-27-2025 10:15-0400 Heart rate80 /minMike Morelos DO Work Phone: [facility]03-27-2025 10:15-0400 Systolic blood wawpogaa942 mm[Hg]Mike Morelos DO Work Phone: [facility]02-28-2025 15:29-0500 Body wrbedi998.6 cmPaul Biedenbach DO Work Phone: [phone] [place], [place] [address]Wiclaghtih23-87-6961 15:29-0500Body mass index (BMI) [Ratio]34.7 kg/m2Paul Biedenbach DO Work Phone: [phone]-[facility] CenterTssredetyp54-79-1263 15:29-0500Body cajmdv67.52 kgPaul Biedenbach DO Work Phone: [facility] CenterKhwxrrspsy17-98-4238 15:27-0500Body zelwcy876.6 cmPaul Biedenbach DO Work Phone: [facility] CenterUfwmmzdiut37-30-2199 15:27-0500Body mass index (BMI) [Ratio]34.7 kg/m2Paul Biedenbach DO Work Phone: [facility] CenterAgpatimedf74-43-9956 15:27-0500Body ixzhrq85.52 kgPaul Biedenbach DO Work Phone: [phone] [place], [place] [address]Ispnmmgrqn17-02-1701 15:36-0500Body uthigo766.6 cmPaul Biedenbach DO Work Phone: [facility] CenterMxnalizarj63-85-7455 15:36-0500Body mass index (BMI) [Ratio]34.7 kg/m2Paul Biedenbach DO Work Phone: noSSM Health CareYvjoyswtyl92-41-1009 15:36-0500Body .52 kgPaul Biedenbach DO Work Phone: [facility] CenterDysruevuiq64-64-0341 15:19-0500Body agiuva215.6 cmPaul Biedenbach DO Work Phone: [facility] CenterGgklftxtqv74-73-3244 15:19-0500Body mass index (BMI) [Ratio]34.7 kg/m2Paul Biedenbach DO Work Phone: [facility] CenterMjedwytdxq17-25-0226 15:19-0500Body .52 kgPaul Biedenbach DO Work Phone: [facility] CenterXpfnmucxkj69-99-7744 15:53-0500Body mass index (BMI) [Ratio]36.96 kg/m2Tojudie Navarrete MD Work Phone: [facility] CenterCjthbbyshx54-91-0028 15:53-0500Body hbugyy135.87 kgTojudie Navarrete MD Work Phone: [facility] CenterSvplhbwsfq41-19-2959 14:31-0500Body .6 cmTcorinne Navarrete MD Work Phone: [facility] CenterNkvlhqlvpi69-44-0972 14:31-0500Body mass index (BMI) [Ratio]35.83 kg/m2Tojudie Navarrete MD Work Phone: [facility] CenterVvldfyiqae61-32-1196 14:31-0500Body .7 kgJany Navarrete MD Work Phone: noSSM Health CareAscsdetunr71-19-2009 14:50-0400Body uqjrji688.6 Melina Mckeon NP Work Phone: [phone] [place], [place] [address]Vaanptjksw61-85-7119 14:50-0400Body mass index (BMI) [Ratio]35.67 kg/e8OcszuoRachel Fosterr CUSTOMER ACQUISITION SPECIALIST Work Phone: [facility] CenterUwdglagdxw02-21-0588 14:50-0400Body .25 kgRachel Fosterr CUSTOMER ACQUISITION SPECIALIST Work Phone: [facility] CenterPbdocmhcow60-83-9625 14:50-0400Diastolic blood qnurhvmw17 mm[Hg]Rachel Fosterchrissy CUSTOMER ACQUISITION SPECIALIST Work Phone: [phone] [place], [place] [address]Cpmaibpgjq03-08-7123 14:50-0400Heart rate69 /min Rachel Fosterr CUSTOMER ACQUISITION SPECIALIST Work Phone: [facility] CenterDdvirkdtmo33-57-1218 14:50-0833VtT6% (BldA) [Mass fraction]95 %Rachel Fosterr CUSTOMER ACQUISITION SPECIALIST Work Phone: [facility] CenterGobliyfxbg51-04-6009 14:50-0400Systolic blood wrgwjjis636 mm[Hg]Rachel Fosterchrissy CUSTOMER ACQUISITION SPECIALIST Work Phone: [phone] [place], [place] [address]Klyjwaypjk05-51-6258 09:06-0400Body maljpo246.6 cmWichristinegavi Rigginsdon DO Work Phone: [facility]09-20-2024 09:06-0400 Body mass index (BMI) [Ratio]34.7 kg/w9GewgauaMike Rigginsdon DO Work Phone: [facility]09-20-2024 09:06-0400 Body yfivxr58.52 kgWistephany Rigginsdon DO Work Phone: [facility]09-20-2024 09:06-0400 Diastolic blood lidimosz96 mm[Hg]Mike Morelos DO Work Phone: [phone] [place], [place] 9967809-20-2024 09:06-0400 Heart rate64 /minMike Morelos DO Work Phone: [facility]09-20-2024 09:06-0400 Systolic blood ezvzaqjh184 mm[Hg]Mike Morelos DO Work Phone: [facility]06-03-2024 14:01-0400 Blood Pressure LocationMichael NILL [phone]-PrawjParkview Health [facility] 07-14-2023 14:01-0400Diastolic blood zchedlum17 mm[Hg]Tariq NILL [phone]-ClluuK[facility] 07-14-2023 14:01-0400Heart rate74 /minMichael NILL [phone]-IptfuK[facility] 07-14-2023 14:01-0400Respiratory rate16 /minMichael NILL [phone]-[facility]dnblDay[facility] 07-14-2023 14:01-0400Systolic blood ivbplhgx011 mm[Hg]Tariq NILL [phone]-KgtvaDayton Osteopathic Hospital 04-23-2023 15:37-0400Body mass index (BMI) [Ratio]40.84 kg/h4WcsffAndra Ramirez DREDGE OPERATOR-STUDENT RECORDS COORDINATOR Work Phone: [phone]03-13-2024 15:37-0400 Body nbyigu292.76 kgAndra Ramirez DREDGE OPERATOR-STUDENT RECORDS COORDINATOR Work Phone: [facility]03-13-2024 15:37-0400 Diastolic blood mm[Hg]Andra Ramirez DREDGE OPERATOR-STUDENT RECORDS COORDINATOR Work Phone: [phone]03-13-2024 15:37-0400 Heart rate82 /Manuel Ramirez DREDGE OPERATOR-STUDENT RECORDS COORDINATOR Work Phone: [phone]03-13-2024 15:37-0400 Systolic blood bedimror073 mm[Hg]Andra Ramirez DREDGE OPERATOR-STUDENT RECORDS COORDINATOR Work Phone: [facility]12-13-2023 15:36-0500 Body swvyuj991.6 cmAndra Ramirez DREDGE OPERATOR-STUDENT RECORDS COORDINATOR Work Phone: [address] [place], [place] 1568012-13-2023 15:36-0500 Body mass index (BMI) [Ratio]44.87 kg/p2IbukuAndra Ramirez DREDGE OPERATOR-STUDENT RECORDS COORDINATOR Work Phone: [phone] [place], [place] 9967812-13-2023 15:36-0500 Body daxgyc180.1 kgAndra Ramirez DREDGE OPERATOR-STUDENT RECORDS COORDINATOR Work Phone: [phone] [place], [place] 9967812-13-2023 15:36-0500 Diastolic blood yjefmqcx32 mm[Hg]Andra Ramirez DREDGE OPERATOR-STUDENT RECORDS COORDINATOR Work Phone: [phone] [place], [place] 9967812-13-2023 15:36-0500 Heart rate76 /minDchuy Ramirez DREDGE OPERATOR-STUDENT RECORDS COORDINATOR Work Phone: [phone] [place], [place] 9967812-13-2023 15:36-0500 Systolic blood ebozuoxw655 mm[Hg]Andra Ramirez DREDGE OPERATOR-STUDENT RECORDS COORDINATOR Work Phone: [facility]10-01-2023 04:47-0400 Diastolic blood ftcyawiy60 mm[Hg]MD Shea Singer Work Phone: [phone]10-01-2023 04:47-0400 Heart rate72 /minMD Shea Singer Work Phone: [phone]10-01-2023 04:47-0400 Respiratory rate20 /minMD Shea Singer Work Phone: [phone]10-01-2023 04:47-0400 SaO2% (BldA) [Mass fraction]96 %MD Shea Singer Work Phone: [phone]10-01-2023 04:47-0400 Systolic blood mm[Hg]MD Shea Singer Work Phone: [phone]09-30-2023 22:35-0400 Body brcocj431.64 cmMD Shea Singer Work Phone: [phone]09-30-2023 22:35-0400 Body nizyntaxhwy92 [degF]MD Shea Singer Work Phone: [facility]09-30-2023 22:35-0400 Body vpuliz272.8 kgMD Shea Singer Work Phone: [facility] Encounters Encounter DateEncounter TypeCare ProviderFacilityStart: 11-26-2024 End: 68-37-5380hphmpqgilmRWTE S BIEDENBACHNot AvailableStart: 11-26-2024 End: 51-96-7346Kschga outpatient visit 25 minutesPaul S Biedenbach DO Work Phone: noMS Richard OtolaryngologyComment on above:Chronic cough (Primary Dx); Sinusitis, unspecified chronicity, unspecified location; Rhinitis medicamentosa; Chronic anticoagulationStart: 11-26-2024 End: 79-66-3493Nvuaou flowsheetPaul S Biedenbach DO Work Phone: noms Jose Manuel OtolaryngologyStart: 11-26-2024 End: 30-81-8783Hdrwiw flowsheetPaul S Biedenbach DO Work Phone: noMS Richard OtolaryngologyStart: 10-27-2024 End: 13-83-7590Sccgqz outpatient visit 10 minutesAndra Ramirez DREDGE OPERATOR-STUDENT RECORDS COORDINATOR Work Phone: uh FirelandsComment on above:Hypotension due to drugs (Primary Dx)Start: 09-24-2024 End: 35-13-9513Noyiyz outpatient visit 25 minutesPaul S Biedenbach DO Work Phone: noMS Richard OtolaryngologyComment on above: Sinusitis, unspecified chronicity, unspecified location (Primary Dx); Chronic anticoagulation; Nasal congestionStart: 09-24-2024 End: 17-32-8852orgttxifacSFRP S BIEDENBACHNot AvailableStart: 09-24-2024 End: 57-56-9918Llsehx flowsheetPaul S Biedenbach DO Work Phone: noMS Richard OtolaryngologyStart: 09-24-2024 End: 15-16-3800Lytxya flowsheetPaul S Biedenbach DO Work Phone: noMS Richard OtolaryngologyStart: 09-13-2024 End: 46-05-2542pbijtvnabuCNJOXL [facility] Hospitaltart: 09-13-2024 End: 29-30-1190Yhhafqngyi hospital visit by [facility] LABComment on above:Elevated PSAStart: 09-03-2024 End: 63-58-0343Jdqono outpatient visit 25 minutesPaul S Biedenbach DO Work Phone: noMS Richard OtolaryngologyComment on above: Sinusitis, unspecified chronicity, unspecified location (Primary Dx); Nasal congestion; Chronic anticoagulationStart: 09-03-2024 End: 03-11-2016zjbpujsotaOUSS S BIEDENBACHNot AvailableStart: 09-03-2024 End: 52-38-2897Cdkawe flowsheetPaul S Biedenbach DO Work Phone: noMS Richard OtolaryngologyStart: 09-03-2024 End: 54-25-2966Jegwlo flowsheetPaul S Biedenbach DO Work Phone: noMS Richard OtolaryngologyStart: 08-20-2024 End: 70-02-2446Fmidlb outpatient visit 25 minutesPaul S Biedenbach DO Work Phone: no ENT SANDUSKYComment on above:Sinusitis, unspecified chronicity, unspecified location (Primary Dx); Nasal congestion; Chronic anticoagulationStart: 08-20-2024 End: 66-05-4031yeylijatuzMHCS S BIEDENBACHNot AvailableStart: 08-20-2024 End: 83-22-8940Lzevyf flowsheetPaul S Biedenbach DO Work Phone: noms ENT SANDUSKYStart: 08-20-2024 End: 94-86-1229Ilyxqk flowsheetPaul S Biedenbach DO Work Phone: noms ENT SANDUSKYStart: 08-16-2024 End: 06-55-1153wcvwelzgqjILYJABS Alistair PAULINOLancaster Municipal Hospitalgwen Winston HospitalStart: 08-16-2024 End: 90-71-0981Brmfqljxvu hospital visit by [facility] 2 [facility] UltrasoundComment on above:Renal cancer, left (HCC); History of partial nephrectomyArrivedStart: 08-12-2024 End: 99-83-5232mfxkkwqowdUhngysh M Hoy MD Work Phone: [facility] Work Phone: Start: 08-12-2024 End: 45-86-8375Lrlddpea ReferredPaul S Biedenbach DO-Lab [address] [place] Work Phone: Start: 08-12-2024 End: 32-11-6022Bynqxdiu Result EncounterPaul S Biedenbach DO Work Phone: noms External Department UnsolicitedStart: 08-12-2024 End: 18-37-7652Uyxvpfzh Result EncounterPaul S Biedenbach DO Work Phone: noms External Department UnsolicitedStart: 08-02-2024 End: 16-34-3041Ckkddvm encounter procedurePaul S Biedenbach DO -Electrodiagnostics Work Phone: Start: 08-02-2024 End: 26-61-6648zjpezvlnkdFkcjadw M HoyFacility:[facility] Start: 55-52-0345Wfsndheie for other preprocedural examinationLeon Vicente [facility] Phys[facility] GroupStart: 06-18-2024 End: 67-99-4833Zdotms outpatient visit 25 minutesPaul S Biedenbach DO Work Phone: noms ENT ROMANUSKYComment on above:Sinusitis, unspecified chronicity, unspecified location (Primary Dx); Chronic anticoagulation; Nasal congestionStart: 06-18-2024 End: 02-54-0655mxfoplxpzuPVLO S BIEDENBACHNot AvailableStart: 06-18-2024 End: 67-26-5460Dchbnt flowsheetPaul S Biedenbach DO Work Phone: noms ENT SANDUSKYStart: 06-18-2024 End: 72-11-0483Ebsxcq flowsheetPaul S Biedenbach DO Work Phone: noms ENT SANDUSKYStart: 05-28-2024 End: 49-76-4071Ubrwgeq encounter procedureShea Singer MD Work Phone: [facility] [place] Work Phone: Start: 05-28-2024 End: 28-92-0955hfwvarrcgnBntdofp M Hoy MD Work Phone: [facility] Work Phone: Start: 05-18-2024 End: 67-78-6953ohthdaejbfDPZM S BIEDENBACHNot AvailableStart: 05-13-2024 End: 61-92-5472Ubztpi outpatient visit 25 minutesPaul S Biedenbach DO Work Phone: noms [facility]om[facility] on above:Chronic anticoagulation (Primary Dx); Sinusitis, unspecified chronicity, unspecified location; Nasal congestionStart: 05-13-2024 End: 05-50-5914rtvmwwqodpNTKL S BIEDENBACHNot AvailableStart: 05-13-2024 End: 32-60-3340Tbukyq flowsheetPaul S Biedenbach DO Work Phone: noms ENT NORWALKStart: 05-13-2024 End: 18-98-2082Bmdbfo flowsheetPaul S Biedenbach DO Work Phone: noms ENT NORWALKStart: 05-06-2024 End: 40-39-0190Wsazzn outpatient visit 25 minutesWilliam S Jethro DO Work Phone: [facility]othanComment on above:Paroxysmal atrial fibrillation (Multi); Diabetes mellitus type II, non insulin dependent (Multi); Encounter for lipid screening for cardiovascular disease; Essential hypertension; BMI 36.0-36.9,adult; Hypertensive left ventricular hypertrophy, without heart failure; Never smoked tobaccoStart: 04-09-2024 End: 14-64-6115Izrajw outpatient visit 25 minutesPaul S Biedenbach DO Work Phone: noms ENT SANDUSKYComment on above:Sinusitis, unspecified chronicity, unspecified location (Primary Dx); Nasal congestion; Chronic anticoagulationStart: 04-09-2024 End: 28-26-8873scmsstiixpZBNZ S BIEDENBACHNot AvailableStart: 04-09-2024 End: 89-92-8991Gzqovx flowsheetPaul S Biedenbach DO Work Phone: noms ENT SANDUSKYStart: 04-09-2024 End: 07-71-3901Dwzffl flowsheetPaul S Biedenbach DO Work Phone: noms ENT SANDUSKYStart: 03-26-2024 End: 76-15-8932Mvgsqm outpatient visit 25 minutesPaul S Biedenbach DO Work Phone: noms ENT SANDUSKYComment on above:Sinusitis, unspecified chronicity, unspecified location (Primary Dx); Nasal congestion; Chronic anticoagulationStart: 03-26-2024 End: 86-84-5282ekpukjkearAPED S BIEDENBACHNot AvailableStart: 03-26-2024 End: 00-67-0553Yrqkjy flowsheetPaul S Biedenbach DO Work Phone: noms ENT SANDUSKYStart: 03-26-2024 End: 30-89-8270Ifhtva flowsheetPaul S Biedenbach DO Work Phone: noms ENT SANDUSKYStart: 03-18-2024 End: 23-57-9843xengpdghkxNNHG S BIEDENBACHNot AvailableStart: 03-05-2024 End: 32-59-9376orpxfygsasKBKS S BIEDENBACHNot AvailableStart: 03-05-2024 End: 68-98-5037Rlssto flowsheetPaul S Biedenbach DO Work Phone: noms ENT SANDUSKYStart: 03-05-2024 End: 56-69-6323Lrunow flowsheetPaul S Biedenbach DO Work Phone: noms ENT SANDUSKYStart: 02-13-2024 End: 46-69-3270Tunafm outpatient visit 25 minutesPaul S Biedenbach DO Work Phone: noms ENT SANDUSKYComment on above:Sinusitis, unspecified chronicity, unspecified location (Primary Dx); Nasal congestion; Chronic anticoagulationStart: 02-13-2024 End: 76-54-0756ytvgymihdyQDLR S BIEDENBACHNot AvailableStart: 02-12-2024 End: 99-00-5815Bfltos outpatient visit 15 minutesJany Navarrete MD Work Phone: noms SWS ALLComment on above:Acute maxillary sinusitis, recurrence not specified (Primary Dx)Start: 02-12-2024 End: 51-84-6420mdaxrfykvcPPDYMateo Rangel AvailableStart: 02-12-2024 End: 69-91-7821Tqgqnoantony Navarrete MD Work Phone: noMS SWS ALLStart: 02-12-2024 End: 79-31-4873Eqvyjzantony Navarrete MD Work Phone: NOMS SWS ALLStart: 01-30-2024 End: 82-54-2405Qmvflh outpatient new 45 minutesPaul S Biedenbach DO Work Phone: noms ENT SANDUSKYComment on above:Chronic anticoagulation (Primary Dx); Sinusitis, unspecified chronicity, unspecified location; Nasal congestionStart: 01-30-2024 End: 30-58-0108ycqcdyxbucXNTC S BIEDENBACHNot AvailableStart: 01-30-2024 End: 63-78-8279Zwbcwv flowsheetPaul S Biedenbach DO Work Phone: NOMS ENT SANDUSKYStart: 01-30-2024 End: 78-74-6941Qvoata flowsheetLeon Castro DO Work Phone: NOSX ENT SANDUSKYStart: 01-23-2024 End: 95-12-6351Ytjskt OnlyTojudie Navarrete MD Work Phone: NOMS MHEB ALLComment on above:Acute maxillary sinusitis, recurrence not specified (Primary Dx)Start: 01-12-2024 End: 99-19-2234Bdcxya outpatient visit 25 minutesTojudie Navarrete MD Work Phone: NOMS SWS ALLComment on above:Cough variant asthma (CMS/HCC) (Primary Dx); Acute maxillary sinusitis, recurrence not specifiedStart: 01-12-2024 End: 27-95-7784lucetdneswDHHN E RAMBASEKNot AvailableStart: 01-12-2024 End: 39-85-0721Jrzuyz flowsheetTojudie Navarrete MD Work Phone: NOMS SWS ALLStart: 01-12-2024 End: 73-94-8465Nndjnz flowsheetTojudie Navarrete MD Work Phone: NOMS SWS ALLStart: 12-17-2023 End: 91-17-6289Rqnofm outpatient new 30 minutesTojudie Navarrete MD Work Phone: NOMS SWS ALLComment on above:Dyspnea on exertion (Primary Dx); Chronic rhinitisStart: 12-17-2023 End: 94-18-4588sxfedykxxjVUCE E RAMBASEKNot AvailableStart: 12-17-2023 End: 76-87-9270Gdybof flowsheetTojudie Navarrete MD Work Phone: NOMS SWS ALLStart: 12-17-2023 End: 50-94-2177Yetkam flowsheetTojudie Navarrete MD Work Phone: NOMS SWS ALLStart: 11-12-2023 End: 32-90-9722Ogfadj outpatient visit 25 minutesRachel Mckeon NP Work Phone: noms [facility] ROUTEComment on above:TONY (obstructive sleep apnea) (Primary Dx); Snoring; Daytime hypersomnolenceStart: 11-12-2023 End: 04-58-0352Vyfhdy flowsGiuseppe Fosterchrissy CUSTOMER ACQUISITION SPECIALIST Work Phone: noms [facility] ROUTEStart: 11-12-2023 End: 96-07-2863Vamvwt flowsGiuseppe Fosterchrissy CUSTOMER ACQUISITION SPECIALIST Work Phone: noms [facility] ROUTEStart: 10-31-2023 End: 45-62-4328Ofbagh outpatient visit 25 minutesWikarencarie Martel Jethro DO Work Phone: uh [facility] NashComment on above:Paroxysmal atrial fibrillation (Multi); Essential hypertension; Diabetes mellitus type II, non insulin dependent (Multi); Obstructive sleep apnea; BMI 34.0-34.9,adult; Never smoked tobacco; Hypertensive left ventricular hypertrophy, without heart failureStart: 10-01-2023 End: 01-51-8809tcalxgvgadHhovfpo R NILLFacility: BellevueStart: 10-01-2023 End: 62-53-5012Byorasb encounter procedureMichael R NILL 100-7029Mznezo-Eszrv [facility] [place] Start: 09-17-2023 End: 86-72-9579fryuedvuuvLdvngsz R [facility]illF[facility] Work Phone: Start: 09-17-2023 End: 75-37-8909Fboettex ReferredMD Tariq Nill Work Phone: [facility]-LAB Path Spec [place] HospStart: 09-17-2023 End: 33-85-8668eenjhdxnydLodlzag R NILLFacility:CD:[id number]: 08-21-2023 End: 26-77-2738Okmugygjoh hospital visit by Dinora Hay MD Work Phone: [facility] CT ScanComment on above:Renal cancer, left (HCC)Start: 08-04-2023 End: 84-24-4720xiyzpsxgqeYqzljbd R NILLFacility:MCStart: 08-04-2023 End: 31-31-4275Xltzxhp encounter procedureMichael R NILL [facility] Start: 07-14-2023 End: 18-44-3163ipeblhywnuZewjarm HoyFacility: [place]walkStart: 07-14-2023 End: 11-53-4449Cxxbxdw encounter procedureMichael R NILL [phone]-EkaqrParkview Health General Surgery Levasy Start: 59-85-7601ecimpzalmqGzyesct NILLFacility: BellevueStart: 33-62-7404pqtmsfobixQjlvxfe NILLFacility:[facility] SystemwalkStart: 04-23-2023 End: 99-68-8663Yhkjhr outpatient visit 10 minutesAndra Ramirez APRN-STUDENT RECORDS COORDINATOR Work Phone: uh [facility] NashComment on above:BMI 40.0-44.9, adult ([facility]) (Primary Dx); Essential hypertensionStart: 01-22-2023 End: 60-27-7212Lbpbvc outpatient visit 15 minutesAndra Ramirez DREDGE OPERATOR-STUDENT RECORDS COORDINATOR Work Phone: uh [facility] NashComment on above:Essential hypertension (Primary Dx); Chest pain, unspecified type; Obstructive sleep apnea; Diabetes mellitus type II, non insulin dependent (CMS/HCC); Hypertensive left ventricular hypertrophy, without heart failure; BMI 40.0-44.9, adult (CMS/HCC)Start: 12-16-2022 End: 21-42-7680Chtxgggbtv hospital visit by Fatemeh Richard [facility]Start: 21-37-2917Qsgvpdfaxq and management of inpatientMD Shea Singer Work Phone: [facility] Work Phone: Start: 04-76-7479uwpeasqtfzv encounterMD Shea M Hoy Work Phone: [facility] Work Phone: Start: 11-24-2021 End: 04-65-6634njeohenttiDV SHEA HOYFacility:G8Pntul: 97-19-0171Gjtelzzuu for general adult medical examination without abnormal findingsDR SHEA HOYThe [place] HospitalStart: 11-03-2021 End: 07-05-7488kspsmhmwccWL SHEA HOYFacility:Y6Rggle: 11-03-2021 End: 61-45-9602Jufljkqeb for general adult medical examination without abnormal findingsDR SHEA HOYFacility:N3Vizyi: 10-31-2021 End: 36-92-5021agwlqwspmwHY SHEA HOYFacility:X2Jsfmw: 05-04-2021 End: 96-34-9042nacwipgwpyHN SHEA HOYFacility:M2Ncdio: 04-12-2021 End: 25-15-0974tejhzcdcqhAR SHEA HOYFacility:Z0Nvzie: 04-10-2021 End: 10-78-3797emwikfngijET SHEA HOYFacility:B1Wvxsu: 04-09-2021 End: 43-22-7138ygsnclzjkmTV SHEA HOYFacility:Z3Yxyzc: 03-27-2021 End: 26-87-2577jgixdlyojfQB SHEA HOYFacility:R6Qnjkq: 03-25-2021 End: 40-06-5857rswpakqbcyTTDXQN RODRIGUEZFacility:M2Uhmqp: 03-24-2021 End: 89-08-3943ypccxvbnsvRU SHEA HOYFacility:H1 Procedures DateProcedureProcedure DetailPerforming ClinicianStart: 87-14-4348Qelxpljcqd exam chest 2 viewsBemarco Paulino APRN - AMBREEN Work Phone: start: 50-74-0493Du retroperitoneal real time w/image limitedBemarco Paulino APRN - STUDENT RECORDS COORDINATOR Work Phone: start: 30-02-7486HLXXQFW CULTUREPaul S Biedenbach DO Work Phone: start: 92-40-8251VYWYIJCJX CULTUREPaul S Biedenbach DO Work Phone: start: 34-88-3250EixaoinrjaeGqesgnx Sheldon DO Work Phone: Start: 87-34-0794NtkekerhtuwJyijxtb NILL Start: 49-37-4313Nx strs tst xers&/or rx cont ecg trcg onlyWillsummerm S Jethro DO Work Phone: Start: 19-78-1559BZD screeningDR SHEA HOYComment on above:Performed By: #### CMP #### [facility] [address] [place] [address] Dr. Sunny OrtezStart: 01-62-4436Lmuylmve screenComment on above:Performed By: #### [id number] ####[facility] [address] [place], [place] [phone] nephrectomyMichael NILL Plan of Treatment DateCare ActivityDetailAuthorStart: 95-99-1972DOU High Risk: (Elderly (60+) or Population) (1 - 1-dose 75+ series)RSV High Risk: (Elderly (60+) or Population) (1 - 1-dose 75+ series)[facility] Start: 33-86-2795Gebepctgk for malignant neoplasm of colonSt. Vincent HospitalStart: 36-70-1825Tsydxlgm specific antigen measurementProstate Specific Antigen (PSA) Screening or MonitoringBon [facility]letown HospitalStart: 05-09-2025 End: 25-01-1523Iasxwlu encounter weqjgowxt95/30/2026 4:00 PM EDT Office Visit [facility] [address] [facility] [address] [place] [id number] Andra Ramirez, DREDGE OPERATOR-STUDENT RECORDS COORDINATOR [address] [facility] [address] [place] [address] [facility]: 12-10-2024 End: 10-43-9217Fvfxsjm encounter xnazrjuvz11/31/2025 3:30 PM EDT Office Visit CHRISDelonte HassanJose Manuel Otol[facility] [address] [place], [id number] Leon Castro DO [address] [place] [address] NOMDelonte Richard OtolaryngologyStart: 49-39-5468PEOPV-19 Vaccine ( season)COVID-19 Vaccine ( season)[facility]: 16-81-1306Bsdqiisio vaccination Influenza Vaccine (#1)[facility]: 09-27-2024 End: 79-08-3681Brzkqng encounter iyfzathll30/18/2025 4:00 PM EDT Office Visit [facility] UROLOGY Part [address] [place] [address] Moises Overton PA-C [address] [place] [address] [address] [place] [address] 1 week follow upJ.W. [facility] UROLOGMetroHealth Cleveland Heights Medical CenterComment on above:1 week follow upStart: 09-24-2024 End: 04-85-5683Sevzlfn encounter procedureNOMS Jose Manuel OtolaryngologyComment on above:ArrivedStart: 34-12-7745Euiolivgm vaccinationFlu vaccine (#1)Praneeth Cedeno [facility] HospitalStplain[facility]: 09-03-2024 End: 23-25-9922Umfzhbt encounter procedureNOMS ENT SANDUSKYComment on above: ArrivedStart: 08-30-2024 End: 44-72-3228Gcdqawe encounter eryzdesov49/21/2025 7:45 AM EDT Office Visit [facility] UROLOG[facility] Part of [address] [place] [address] Damion Hay MD [address] [facility] [place] [address] review psa done 07/01 and imaging scheduled for 08/03 (us and cxr)[facility] of [facility] HospitalComment [facility]:review psa done 07/01 and imaging scheduled for 08/03 (us and cxr)Start: 08-20-2024 End: 64-85-2812Ibuxljf encounter procedureNOMS ENT SANDUSKYComment on above: ArrivedStart: 41-48-8836Hzotryet specific antigen measurementProstate Specific Antigen (PSA) Screening or MonitoringSENTARA MARTHA JEFFERSON HOSPITALStart: 08-20-2024 Subsequent hospital visit by physicianUNITED HEALTH SERVICES LaboratoryStart: 21-36-2989Ggtgjpgae CultureBronchial CultureSelect Medical Specialty Hospital - Trumbulltart: 08-12-2024 Microscopic observation [Identifier] in Unspecified specimen by Gram stain [facility]ull[facility]art: 06-18-2024 End: 29-50-7219Rxcihtf encounter procedureNOMS ENT SANDUSKYComment on above: ArrivedStart: 05-13-2024 End: 57-12-9002Hjorjnd encounter tcusrtuwp41/03/2025 3:45 PM EDT Office Visit [facility] [address] [place] [phone] Leon Castro S, DO [address] [facility] [place] [address] ArrivedNOMS ENT NORWALKComment on above:ArrivedStart: 05-13-2024 End: 90-18-8544KS Maxillofacial region WO and W contrast IVCT maxillofacial wo IV contrast Imaging Routine Sinusitis, unspecified chronicity, unspecified locat ion Expected: 05/13/2024, Expires: 05/13/2025[facility] Work Phone: comment on above:Expected: 05/13/2024, Expires: 05/13/2025Start: 05-07-2024 End: 28-76-5938Vbfwueh encounter xidayzlbw73/28/2025 10:45 AM EDT Office Visit NOMDelonte ERIN JOSE MANUEL [address] [place] [address] Leon Castro DO [address] [place] [address] NOMS ERIN LINDSAYYStart: 05-06-2024 End: 61-12-4130Iwhntqn aminotransferase [Enzymatic activity/volume] in Serum or Plasma by With P-5'-PAlanine Aminotransferase Lab Routine Diabetes mellitus type II, non insulin dependent (Multi) Encounter for lipid screening for cardiovascular disease Hypertensive left ventricular hypertrophy, without heart failure Expected: 05/06/2024, Expires: 05/06/2025[facility] Work Phone: Comment on above:Expected: 05/06/2024, Expires: 05/06/2025Start: 05-06-2024 End: 06-79-3118Rsogzvpfo aminotransferase [Enzymatic activity/volume] in Serum or Plasma by With P-5'-PAspartate Aminotransferase Lab Routine Diabetes mellitus type II, non insulin dependent (Multi) Encounter for lipid screening for cardiovascular disease Hypertensive left ventricular hypertrophy, without heart failure Expected: 05/06/2024, Expires: 05/06/2025[facility] Work Phone: Comment on above:Expected: 05/06/2024, Expires: 05/06/2025Start: 05-06-2024 End: 41-65-0098Wxhke metabolic 2000 panel - Serum or PlasmaBasic Metabolic Panel Lab Routine Essential hypertension Expected: 05/06/2024, Expires: 05/06/2025 [facility] Work Phone: Comment on above:Expected: 05/06/2024, Expires: 05/06/2025Start: 05-06-2024 End: 28-85-5486Rfuzupr glucose [Mass/volume] in Serum or PlasmaGlucose, fasting Lab Routine Diabetes mellitus type II, non insulin dependent (Multi) Expected: 05/06/2024, Expires: 05/06/2025[facility] Work Phone: Comment on above:Expected: 05/06/2024, Expires: 05/06/2025Start: 05-06-2024 End: 22-37-0354Llxbgqhbcg A1c/Hemoglobin.total in BloodHemoglobin A1C Lab Routine Diabetes mellitus type II, non insulin dependent (Multi) Expected: 05/06/2024, Expires: 05/06/2025[facility] Service Area Work Phone: Comment on above:Expected: 05/06/2024, Expires: 05/06/2025Start: 05-06-2024 End: 69-63-2972Fldcn 1996 panel - Serum or PlasmaLipid Panel Lab Routine Diabetes mellitus type II, non insulin dependent (Multi) Encounter for lipid screening for cardiovascular disease Hypertensive left ventricular hypertrophy, without heart failure Expected: 05/06/2024, Expires: 05/06/2025[facility] Work Phone: Comment on above:Expected: 05/06/2024, Expires: 05/06/2025Start: 05-06-2024 End: 42-55-6333Qisazjullmj [Units/volume] in Serum or PlasmaThyroid Stimulating Hormone Lab Routine Paroxysmal atrial fibrillation (Multi) Diabetes mellitus typ e II, non insulin dependent (Multi) Expected: 05/06/2024, Expires: 05/06/2025 [facility] Work Phone: Comment on above:Expected: 05/06/2024, Expires: 05/06/2025Start: 05-06-2024 End: 24-51-8411Urnvqrbqs (T4) free [Mass/volume] in Serum or PlasmaThyroxine, Free Lab Routine Paroxysmal atrial fibrillation (Multi) Diabetes mellitus type II, non insulin dependent (Multi) Expected: 05/06/2024, Expires: 05/06/2025 [facility] Work Phone: Comment on above:Expected: 05/06/2024, Expires: 05/06/2025Start: 04-09-2024 End: 10-51-1597Wnydwus encounter procedureNOMS ENT SANDUSKYComment on above: ArrivedStart: 03-26-2024 End: 48-69-1481Bdolhxo encounter tsoyjqxba77/14/2025 3:45 PM EST Office Visit NOMS ENT [place] [address] [place] [place] [phone] Leon Castro, DO [address] [place] [address] ArrivedNOMS ENT SANDUSKYComment on above:ArrivedStart: 03-05-2024 End: 82-28-1137Dxdimmx encounter procedureNOMS ENT SANDUSKYComment on above: ArrivedStart: 02-18-2024 End: 30-31-9335Hdmxavf encounter ffmhjmtku32/08/2025 3:20 PM EST Office Visit [facility] [address] [place] [address] Jany Navarrete MD [address] [place] [address] [facility] S[facility] ALLStart: 02-13-2024 End: 81-56-6114Nbgafgg encounter tcitdrcqe06/03/2025 3:30 PM EST Office Visit [facility] [place] [address] [place] [place] [phone] Leon Castro, DO [address] [place] [address] [facility] E[facility] SANDUSKYStart: 02-12-2024 End: 17-58-9426Qzmylas encounter jarogsvhy34/02/2025 3:40 PM EST Office Visit [facility] [address] [place] [address] Jany Navarrete MD [address] [place] [address] [facility] ALLComment on above:ArrivedStart: 01-30-2024 End: 96-34-4629Fuviyds encounter procedureNOMS ENT SANDUSKYComment on above: Sinusitis, unspecified chronicity, unspecified location; Nasal congestionStart: 01-20-2024 End: 97-09-6174Cbeptpp encounter gdosookne27/10/2024 3:30 PM EST Office Visit [facility] [address] [place] [address] Mike Morelos, [address] [place] [address] [facility]: 01-12-2024 End: 39-58-3434Rlpbbdj encounter /02/2024 4:00 PM EST Office Visit [facility] [address] [place] [phone] Jany Navarrete MD [address] [place] [address] [facility] ALLComment on above:ArrivedStart: 01-12-2024 End: 56-26-0975EM Maxillofacial region WO and W contrast IVCT SINUS WO IV CONTRAST Imaging Routine Acute maxillary sinusitis, recurrence not specified Expected: 01/12/2024, Expires: 01/11/2025[facility] Work Phone: Comment on above:Expected: 01/12/2024, Expires: 01/11/2025Start: 12-17-2023 End: 78-89-6795Ktajblf encounter dhyejzgkt84/06/2024 2:40 PM EST Office Visit [facility] [address] [place] [phone] Jany Navarrete MD [address] [place] [address] [facility] ALLComment on above:ArrivedStart: 12-17-2023 End: 92-67-6874NX Maxillofacial region WO and W contrast IVCT SINUS WO IV CONTRAST Imaging Routine Chronic rhinitis Expected: 12/17/2023, Expires: 12/16/2024[facility] Work Phone: Comment on above:Expected: 12/17/2023, Expires: 12/16/2024Start: 11-12-2023 End: 93-51-0848Gsfawom encounter ifbiegiut49/02/2024 3:00 PM EDT Office Visit [facility] [address] [place] [address] Rachel Mckeon NP [address] [place], [place] ArrivedNOGALION COMM[facility] ROUTEComment on above: ArrivedStart: 10-31-2023 End: 02-42-4015Zwsotd monitor studyHolter Or Event Public Health Sanitarian Technician Cardiac Services Routine Paroxysmal atrial fibrillation (Multi) Expected: 10/31/2023 (Approximate), Expires: 10/30/2024[facility] Service Area Work Phone: Comment on above:Expected: 10/31/2023 (Approximate), Expires: 10/30/2024Start: 86-42-6203MOUBZ-19 Vaccine ( season)COVID- 19 Vaccine ( season)[facility]: 49-58-8897UHUTV-19 Vaccine ( season)COVID-19 Vaccine ( season)[facility]: 19-69-7931Jxdtxejum vaccination Influenza Vaccine (#1)[facility]: 09-17-2023 [facility]: 27-78-1766Wtexnuvoa vaccinationFlu vaccine (#1)[facility]: 08-28-2023 End: 08-93-0829Ufxvmjt encounter nwyztkpve08/18/2024 2:30 PM EDT Procedure visit [facility] Part of [facility] [address] [place] [phone] Cuca Paulino, DREDGE OPERATOR - STUDENT RECORDS COORDINATOR [address] [facility] [address] [facility] [address] [place] [phone] 3 months, CT, labs [facility] UROLOGY Part of [facility] Comment on above:3 months, CT, labs priorStart: 03-25-2023 End: 41-56-5207Pdjohhu encounter bruxunqzl59/13/2024 3:30 PM EST Office Visit [facility] [address] [place] [phone] Andra Ramirez, DREDGE OPERATOR-STUDENT RECORDS COORDINATOR [address] [place] [address] [facility]: 12-17-2022 End: 56-91-3340Nyvcracxqcuv / ancillary services managementSt. Francis HospitalElsieHighlands Medical Center Start: 73-25-2658Fvoednkgmvm Syncytial Virus (RSV) or age 60 yrs+ (1 - 1-dose 60+ series)Respiratory Syncytial Virus (RSV) or age 60 yrs+ (1 - 1-dose 60+ series)[facility]: 63-35-4779Hsmmelvwqqp Syncytial Virus (RSV) or age 60 yrs+ (1 - Risk 60-74 years 1-dose series)Respiratory Syncytial Virus (RSV) or age 60 yrs+ (1 - Risk 60-74 years 1-dose series)[facility]: 39-35-3785FFG High Risk: (Elderly (60+) or Population) (1 - Risk 60-74 years 1-dose series)RSV High Risk: (Elderly (60+) or Population) (1 - Risk 60-74 years 1-dose series)[facility]: 32-62-2553JZT patients and/or patients aged 60+ years (1 - 1-dose 60+ series)RSV patients and/or patients aged 60+ years (1 - 1-dose 60+ series)[facility]: 48-84-7741Lbpvl chemistrySelect [facility]: 25-03-2649Qwuuafef admissionSelect Medical Specialty Hospital - [facility]ulltart: 2022 End: 09-41-6177NglcctpmzSelect Medical Specialty Hospital [facility]tart: 86-15-5428Iaisx chest X-rayXR chest 2V*[facility]: 53-16-7516PR Chest 2 ViewsSelect Medical Specialty Hospital - Trumbulltart: 14-12-5644Gczgpxhcl vaccination Influenza Vaccine (#1)[facility]: 2012 Pneumococcal 50+ years Vaccine (1 of 1 - PCV)Pneumococcal 50+ years Vaccine (1 of 1 - PCV)[facility]: 53-52-8483Ydqbrtbd specific antigen measurementPSA Prostate Cancer ScreeningLakeHealth Beachwood Medical Center: 20-42-9624Kiuspwhr vaccine (1 of 2)Shingles vaccine (1 of 2)[facility]: 02-47-4886Rtjqxa Vaccines (1 of 2)Zoster Vaccines (1 of 2) [facility]: 91-67-5438Arkbbfszi for malignant neoplasm of colonBath Community Hospital: 78-90-5655Yawcj panelLipidsB[facility]: 01-28-8262Xqkhqjeq screenDiabetes [facility]: 12-49-3647UDfI/Tdap/Td Vaccines (1 - Tdap)DTaP/Tdap/Td Vaccines (1 - Tdap)[facility]: 1981 DTaP/Tdap/Td vaccine (1 - Tdap)DTaP/Tdap/Td vaccine (1 - Tdap)[facility]: 89-91-6830Tqnroqqttgtr vaccinationPneumococcal Vaccine (1 of 2 - PCV)[facility]: 46-24-1297Plesv screening for proteinDiabetes: Urine Protein ScreeningLakeHealth [facility]: 00-65-7349Pkbxyndod C screeningL[facility]Health [facility]: 58-40-2045QQQ screeningHIV [facility]: 1974 Depression ScreenDepression ScreenInova Health Systemart: 1972 Diabetic foot examinationDiabetes: Foot ExamUnOhioHealth Hardin Memorial Hospital Start: 48-37-2314Xvjczsla screeningDiabetes: Retinopathy ScreeningUnUniversity Hospitals St. [facility]: 58-39-6528Oqskucqncywi Vaccine: Pediatrics (0 to 5 Years) and At-Risk Patients (6 to 64 Years) (1 - PCV)Pneumococcal Vaccine: Pediatrics (0 to 5 Years) and At-Risk Patients (6 to 64 Years) (1 - PCV) [facility]: 95-61-8100Clvfckofrwjh Vaccine: Pediatrics (0 to 5 Years) and At-Risk Patients (6 to 64 Years) (1 of 2 - PCV) Pneumococcal Vaccine: Pediatrics (0 to 5 Years) and At-Risk Patients (6 to 64 Years) (1 of 2 - PCV)[facility]: 00-11-9657SOK Vaccines (1 of 1 - Standard series)MMR Vaccines (1 of 1 - Standard series) [facility]: 86-71-4968JNZBK-19 Vaccine (#1)COVID-19 Vaccine (#1)[facility]: 01-97-3308Rsqtrcodee A1c measurementDiabetes: Hemoglobin H3OIdhksqbisbLakeHealth Beachwood Medical Center: 72-70-2865EWL screeningHIV ScreeningLakeHealth [facility]: 48-55-3868Ovspx panelLipid PanelLakeHealth [facility] Center: 92-82-4247Xvfhtrfwu for malignant neoplasm of colonUnUniversity Hospitals St. [facility]: 07-32-0217Vmiox screening for proteinDiabetes: Urine Protein ScreeningLakeHealth [facility]: 35-95-2611Dsqrzx Adult Physical Yearly Adult PhysicalUnOhioHealth Hardin Memorial HospitalAEROBIC CULTUREAEROBIC CULTURE Lab STAT 08/12/2024 1:38 PM EDTST[facility] [employer] Work Phone: aNAEROBIC CULTUREANAEROBIC CULTURE Lab STAT 08/12/2024 1:38 PM EDTNOCT HealthcareAnion gap measurementOhio State Harding HospitalBacteria identified in Bronchial specimen by Aerobe cultureOhio State Harding HospitalCalculated LDL cholesterol levelOhio State Harding HospitalCholesterol.total/Cholesterol in HDL [Mass Ratio] in Serum or PlasmaOhio State Harding Hospital End: 63-58-2526PH Abdomen and Pelvis W contrast IVBON [employer] Comment on above:1 Occurrences starting 08/21/2023 until 08/21/2023Glucose measurement estimated from glycated hemoglobinOhio State Harding Hospital NM Heart Perfusion W stress and W radionuclide IVNuclear Stress Test Cardiac Nuclear Medicine Routine Chest pain, unspecified type 12/16/2022 8:[address] [facility] Service Area Work Phone: End: 58-94-8327Egdaqeawv studySurgical Pathology Lab Routine Elevated PSA 1 Occurrences starting 09/13/2024 until 09/13/2024on RazzComment on above:1 Occurrences starting 09/13/2024 until 09/13/2024 End: 91-64-2212NPVFQSFH PATHOLOGY REPORTSURGICAL PATHOLOGY REPORT Lab Routine Once for 1 Occurrences starting 09/13/2024 until 09/13/2024on RazzComment on above:Once for 1 Occurrences starting 09/13/2024 until 09/13/2024VLDL cholesterol measurementOhio State Harding Hospital Payers DatePayer CategoryPayerPolicy [id number] 09-33-0054Cddaixx Care (Private)[facility] [place] Sub[place] Plan / Payer (Effective 2022-Present) Name: Clarence Flores Relation to Subscriber: Self Name: Clarence Flores Payer ID: Not on file Type: Not on file Address: [address] [id number] Private Health [id number]00.33623-34-9811 Unknown1.2.840.636761.1.13.647.2.7.3.380[id number] 2.16.840.1.891915.3.57[id number] 2.16.840.1.360171.3.579.[id number] 2.16.840.1.361943.3.579.2.23726-20-5066Dwgsagp5732782 2.16.840.1.189459.3.579.2.09766-86-1469Cepvyuh0576233 2.16.840.1.851661.3.579.2.67061-34-3006Fhcwkpk1714460 2.16.840.1.764820.3.579.2.51478-19-7398Lllvbhr4772391 2.16.840.1.138103.3.579.2.75597-08-8170Yanxpdw9322824 2.16.840.1.212335.3.579.2.02990-99-9012Bjeyboa2999502 2.16.840.1.667736.3.579.2.89950-87-3350Pwdtbno7522736 2.16.840.1.836232.3.579.2.80689-74-8789Fpgamwm43152041 2.16.840.1.283155.3.579.2.84532-11-8537Gogjcba48883036 2.16.840.1.726800.3.579.2.16244-27-2356Exikwst43023596 2.16.840.1.601973.3.579.2.59665-70-3746Hhnduzg13758356 2.16.840.1.659438.3.579.2.05889-94-1569Jpngdvy11355164 2.16.840.1.490919.3.579.2.54557-85-5212Ynupzig10503514 2.16.840.1.646151.3.579.2.12067-33-7149Hnclfyg83151970 2.16.840.1.680164.3.579.2.27490-25-2841Gpnnyoj64549132 2.16.840.1.065386.3.579.2.369406-86-0264Nswyraj52400142 2.16.840.1.644018.3.579.2.279304-61-6068Wuzhvht94873058 2.16.840.1.613976.3.579.2.990525-20-5061Jdwtvnw36172189 2.16.840.1.425299.3.579.2.240822-43-6817Fvysdjr5301488 2.16.840.1.467028.3.579.2.702420-25-9616Jqteobh4798326 2.16.840.1.474512.3.579.2.638351-61-7819Ufrpjsh5608096 2.16.840.1.146294.3.579.2.225632-03-7556Aztdfag9397059 2.16.840.1.161887.3.579.2.594264-38-1885Ikxycro1672440 2.16.840.1.167599.3.579.2.561294-65-8731Hdmblms2977018 2.16.840.1.724500.3.579.2.689077-90-6417Nmazrds3530637 2.16.840.1.940567.3.579.2.476858-67-6918Vfsrdcs0714060 2..0.1.354619.3.579.2.311794-59-7859Ewslhzp9374866 2..0.1.384301.3.579.2.828901-83-5336Vtleabr3186700 2..0.1.296445.3.579.2.601168-52-6465Nophevs2249215 2..0.1.467042.3.579.2.459663-09-4850Eaevoil4251062 2..1.726115.3.579.2.013218-09-5867Ybmifan2817585 2..1.296914.3.579.2.719608-34-3645Zilyvoj61894906686035-10-8088Bguzxun [id number] /GWZQB455W95448 g118jago-27qm-91k8-n07u-3707x09247g8 Yllbtxp59771282 2.0.1.716351.3.579.2.377Jpnhxxa88528688 2.0.1.851191.3.579.2.410Thcdszx37401817 2.0.1.038795.3.579.2.531 Nibrtir97896387 2..1.440362.3.579.2.531 Social History DateTypeDetailFacilityStart: 2022 End: 46-16-5717Zezcjhl smoking status NHISNever smoked tobacco (finding) [facility]: 53-04-1124Qya Assigned At [facility] ShawTobacco smoking status NHISTobacco smoking consumption unknownNOMS HealthcareStart: 19-64-7058Kfvvmk identityIdentifies as male gender (finding)[facility] Work Phone: Start: 53-29-3488Xrnwop orientationHeterosexual (finding)[facility] Work Phone: Start: 12-06-2022 End: 05-45-1118Kqzbsayp to SARS-CoV-2 (event)Not sureUnOhioHealth Hardin Memorial HospitalStart: 01-22-2023 End: 35-63-1882Rqkezpr use and exposureSmokeless tobacco non-userSt. Vincent Hospital Work Phone: Start: 01-22-2023 End: 85-24-4381Chppqnv intakeLifetime non-drinker (finding)[facility] Work Phone: Start: 01-22-2023 End: 43-59-1880Odnxjch of Social functionUnOhioHealth Hardin Memorial Hospital Work Phone: Start: 01-22-2023 End: 67-92-0084Kvqclld use panelTrinity Health System East Campustart: 11-13-2022 End: 49-00-9511Gjfgqgk smoking statusNeverParkview Health General Surgery Windham Hospitaltart: 65-53-6093Adr assigned at birthNot on [facility] HospitalStart: 10-31-2023 End: 15-73-6217Wwnegnfuk beverage intakeCurrent drinker of alcohol (finding) [facility] Work Phone: Start: 05-08-2023 End: 39-55-4236ZmhCeci (finding)[facility] Hard[facility] HospitalHistory of tobacco usePassive [facility] Equipment Procedure CodeEquipment CodeEquipment Original TextEquipment IdentifierDates1 each by In Vitro route daily As needed.[id number] Functional Status IcnsAtozrfozkkMzaolnTjgxeych70-50-9623Jjpymebila StatusN/AFisherLahey Medical Center, [facility] Ashrixta23-21-3574Gfvnvwllgh StatusN/AFFulton [facility] 14-45-5186Ppnlrfvodv StatusN/[facility] Levasy Clinical Notes 01-22-2023 to 11-26-2024 Note Date & IestDkxaGjbanlgl02-46-9874 History of Present illness Narrative* Leon Martel Anthonymikala, DO - 11/26/2024 3:15 PM EDT Subjective Patient ID: Clarence Flores is a 64 y.o. male who presents for Nasal Congestion (Nasal congestion and cough) HPI This patient presents for recheck. He is status post bilateral functional endoscopic sinus surgery for extensive nasal and sinus infection and polyps. Has been having significant difficulties with nasal congestion and frequent coughing episodes. Has been using decongestant nasal spray. Review of Systems Objective ENT Physical Exam Patient denies any fever. Has not noticed any significant discolored drainage from his nose. Does describe significant congestion, greater on the left. Continues to have episodic difficulties with severe coughing episodes especially at work. No history of reactive airway disease. The rest of his review of systems is unchanged Allergies as of 11/26/2024 - Reviewed 11/26/2024 Allergen Reaction Noted Nitroglycerin 11/26/2018 Medical History[1] Current Medications[2] Surgical History[3] Social History Socioeconomic History Marital status: Unknown [...] on file Housing Stability: Not on file General Examination: General overview: Normal, age-appropriate, no evidence of distress, does not sound very congested Head: Normocephalic, atraumatic Eyes: Pupils are equally round and reactive to light and accommodation, extraocular muscles are intact Ears: External ear architecture within normal limits, ear canals are patent, tympanic membranes areintact. Nose: External nose unremarkable, nares patent, septum has mild deviation to the left. Mucosa is very pale with clear drainage. Nasal endoscopy: Consent: Proper consent is obtained Anesthesia: Nasal airway is anesthetized using aerosolized lidocaine and epinephrine Procedure: After decongestion, a diagnostic nasal endoscopy was performed bilaterally. The endoscope was placed into the nose and a thorough inspection of the internal nose including the septum, skull base, lateral nasal wall structures is performed. There significant congestion noted bilaterally with no evidence of polypoid change. Mild synechia of the middle meatus on the left. Maxillary sinus ostiums are wide open with no evidence of infection. Mucosa is pale with clear drainage. Edema noted. Scope is then removed without difficulty. Disposition: [...] normal affect, no evidence of distress Assessment/Plan [1] Past Medical History: Diagnosis Date Asymptomatic hypertension Atrial fibrillation (HCC) BMI 34.0-34.9,adult 10/31/2023 BMI 40.0-44.9, adult ([facility] 01/23/2023 Diabetes mellitus type II, non insulin dependent (HCC) 04/09/2021 Diabetes type 2, controlled ([facility]) Elevated PSA 05/22/2023 Essential hypertension 11/24/2021 Hyperplastic rectal polyp 01/29/2024 Hypertensive left ventricular hypertrophy, without heart failure 01/22/2023 Kidney disease Left renal mass 01/17/2023 Never smoked tobacco 10/31/2023 Obstructive sleep apnea 01/22/2023 Paroxysmal atrial fibrillation (HCC) 10/31/2023 Positive fecal occult blood test 01/29/2024 Sigmoid diverticulosis 01/29/2024 [2] Current Outpatient Medications: amLODIPine (Norvasc) 5 MG tablet, , Disp: , Rfl: azelastine (Astelin) 0.1 % nasal spray, Administer 2 sprays into each nostril in the morning and 2 sprays before bedtime. Use in each nostril as directed., Disp: 90 mL, Rfl: 3 doxazosin (Cardura) 4 MG tablet, Take 4 mg by mouth at bedtime, Disp: , Rfl: empagliflozin (Jardiance) 10 MG, Take 1 tablet by mouth Daily, Disp: , Rfl: fluconazole (Diflucan) 150 MG tablet, Take one tablet PO now, then repeat dose in 72 hours, Disp: ,Rfl: Fjppfrqozdh-Tevopnaox-Ngwiol (Trelegy Ellipta) 100-62.5-25 MCG/ACT aerosol powder , Inhale 1 puff Daily, Disp: 3 each, Rfl: 3 metFORMIN (Glucophage) 500 MG tablet, Take 500 mg by mouth in the morning and 500 mg in the evening. Take with meals., Disp: , Rfl: metoprolol succinate XL (Toprol-XL) 100 MG 24 hr tablet, Take 150 mg by mouth, Disp: , Rfl: metoprolol succinate XL (Toprol-XL) 25 MG 24 hr tablet, , Disp: , Rfl: montelukast (Singulair) 10 MG tablet, Take 10 mg by mouth Daily, Disp: , Rfl: Ozempic, 2 MG/DOSE, 8 MG/3ML solution pen-injector, Inject 2 mg under the skin every 7 (seven) days, Disp: , Rfl: predniSONE (Deltasone) 50 MG tablet, 1 tablet daily in morning with food for 5 days, Disp: 5 tablet, Rfl: 0 tamsulosin (Flomax) 0.4 MG 24 hr capsule, Take 0.4 mg by mouth in the morning and 0.4 mg in the evening., Disp: , Rfl: valsartan (Diovan) 160 MG tablet, Take 160 mg by mouth in the morning., Disp: , Rfl: amLODIPine (Norvasc) 10 MG tablet, Take 10 mg by mouth in the morning., Disp: , Rfl: apixaban (Eliquis) 5 MG tablet, Take 5 mg by mouth in the morning and 5 mg in the evening., Disp: ,Rfl: dexAMETHasone (Decadron) 4 MG tablet, Take 2 tablets for 5 days, Disp: 10 tablet, Rfl: 0 dilTIAZem CD (Cardizem CD) 120 MG 24 hr capsule, Take 120 mg by mouth, Disp: , Rfl: ipratropium (Atrovent) 0.06 % nasal spray, Administer 2 sprays into each nostril in the morning and2 sprays in the evening and 2 sprays before bedtime., Disp: 15 mL, Rfl: 11 spironolactone (Aldactone) 25 MG tablet, Take 25 mg by mouth in the morning., Disp: , Rfl: [3] Past Surgical History: Procedure Laterality Date NASAL SINUS SURGERY Bilateral 08/12/2024 Bilateral FESS / Septoplasty / Turbs PARTIAL NEPHRECTOMY documented in this encounterMissouri Baptist Medical CenterBequofidld70-91-4704 History of Present illness Narrative* Andra Ramirez, DREDGE OPERATOR-STUDENT RECORDS COORDINATOR - 10/27/2024 4:00 PM EDT Subjective: Clarence [...] contact the office if new symptoms arise. CUSTOMER ACQUISITION SPECIALIST as scheduled Andra Ramirez MSN, DREDGE OPERATOR-STUDENT RECORDS COORDINATOR, PMHNP-[facility] [place], [place] Please excuse any errors in grammar or translation related to this dictation. Voice recognition software was utilized to prepare this document. documented in this [facility] Work Phone: 1(487) 222-132109-17-2025 Instructions* Patient Instructions* SUGEY Tabares - 10/27/2024 4:00 [...] contact the office if new symptoms arise. CUSTOMER ACQUISITION SPECIALIST as scheduled documented in this [facility] Work Phone: 1(666) 577-292808-15-2025 History of Present illness Narrative* Leon Castro DO - 09/24/2024 4:00 PM EDT Subjective Patient ID: Clarence Flores [...] his nose relatively well. The rest of hisreview of systems is negative/unchanged Objective ENT Physical [...] congestion Comments: Much improved documented in this encounterMissouri Baptist Medical [id number] History of Present illness Narrative* Leon Castro DO - 09/03/2024 3:45 PM EDT Subjective Patient ID: Clarence [...] septum intact, bilateral crusting is noted. As partof a scheduled procedure, bilateral debridement is undertaken [...] for 1 more week. documented in this encounterMissouri Baptist Medical CenterEoxfujmygu74-54-6818 History of Present illness Narrative* Leon Castro DO - 08/20/2024 3:45 PM EDT Subjective Patient ID: Clarence [...] septum intact, bilateral crusting is noted. As partof a scheduled procedure, bilateral debridement is undertaken [...] for 1 more week. documented in this encounterMissouri Baptist Medical CenterYmsvelkahl09-97-7561 History of Present illness Narrative* Leon Castro DO - 06/18/2024 3:45 PM EDT Subjective [...] disab ility, and . documented in this [facility]04-03-2025 History of Present illness Narrative* Leon Castro DO - 05/13/2024 3:45 PM EDT Subjective Patient ID: Clarence [...] need of surgical intervention. documented in this encounterMissouri Baptist Medical CenterBjlfkaumvf22-61-9164 History of Present illness Narrative* Mike Morelos, DO - 05/06/2024 9:40 AM EDT Chief Complaint Patient presents with Follow-up 6 [...] times a day. Take half a tablet bymouth every morning and one tablet by mouth [...] Attestation By signing my name below, IMarixa LPN , Scribe attest that this documentation has been prepared under the direction and in the presence of Tano Morelos DO. Provider Attestation - Scribe documentation All medical record entries made by the Scribe were at my direction and personally dictated by me. Ihadonay reviewed the chart and agree that the record accurately reflects my personal performance of the history, physical exam, discussion and plan. documented in this encounterSt. [facility] Hospital Work Phone: 1(885) 667-515703-27-2025 Instructions* Patient Instructions* Marixa Nix LPN - 05/06/2024 9:40 AM [...] Provided instructions on exercise. documented in this [facility] Work Phone: 1(356) 440-142402-28-2025 History of Present illness Narrative* Leon Castro, - 04/09/2024 3:45 PM EST Subjective Patient ID: Clarence Flores is a [...] coughing episodes.The rest of his review of systemsis negative Objective ENT Physical Exam General Examination: General overview: Normal, age-appropriate, no evidence of distress, sounds less congested Head: Normocephalic, atraumatic Eyes: Pupils are equally round and reactive to light and accommodation, extraocular muscles are intact Ears: External ear architecture within normal limits, ear canals are patent, tympanic membranes areintact. Nose: External nose unremarkable, nares patent, nasal septal deviation is noted. The congestion hasbeen reduced approximately 50%. Much better nasal ventilation. [...] family physician and subspecialist documented in this encounterMissouri Baptist Medical [id number] History of Present illness Narrative* Leon Castro DO - 03/26/2024 3:45 PM EST Subjective Patient ID: Clarence Flores is a [...] smell and less congestion. Has finished a 2ndweek of Augmentin Also continues to use saline nasal spray. The rest of his review of systems is unchanged. Allergies as of 03/05/2024 - Reviewed 03/05/2024 Allergen Reaction Noted Nitroglycerin 11/26/2018 Past Medical History: Diagnosis Date Asymptomatic hypertension ([facility]) Atrial fibrillation ([facility]) BMI 34.0-34.9,adult 10/31/2023 BMI 40.0-44.9, adult ([facility]) 01/23/2023 Diabetes mellitus type II, non insulin dependent ([facility]) 04/09/2021 Diabetes type 2, controlled ([facility]) Elevated PSA 05/22/2023 Essential hypertension ([facility]) 11/24/2021 Hyperplastic rectal polyp 01/29/2024 Hypertensive left ventricular hypertrophy, without heart failure ([facility]) 01/22/2023 Kidney disease Left renal mass 01/17/2023 Never smoked tobacco 10/31/2023 Obstructive sleep apnea 01/22/2023 Paroxysmal atrial fibrillation ([facility]) 10/31/2023 Positive fecal occult blood test 01/29/2024 [...] tablet by mouth Daily, Disp: , Rfl: Wzrqfyntsjg-Sijsvkido-Wrletx (Trelegy Ellipta) 100-62.5-25 MCG/ACT aerosol powder , Inhale 1 puff Daily, Disp: 3 each, Rfl: 3 ipratropium (Atrovent) 0.06 % nasal spray, Administer 2 sprays into each nostril in the morning and2 sprays in the evening and 2 sprays [...] and 5 mg in the evening., Disp: ,Rfl: Past Surgical History: Procedure Laterality Date PARTIAL [...] CT scan does reveal evidence of chronic pansinusitiswith interval worsening Oral cavity: Mucosa moist, no [...] and sinus inflammatory change. We will see himback in 2 weeks Nasal congestion Comments: Continue saline nasal spray Chronic anticoagulation Comments: Patient will continue using Eliquis, follow-up with family physician and subspecialist documented in this encounterMissouri Baptist Medical [id number] History of Present illness Narrative* Leon Castro DO - 02/13/2024 3:30 PM EST Subjective Patient ID: Clarence Flores is a [...] Past Medical History: Diagnosis Date Asymptomatic hypertension ([facility]) Atrial fibrillation ([facility]) BMI 34.0-34.9,adult 10/31/2023 BMI 40.0-44.9, adult ([facility]) 01/23/2023 Diabetes mellitus type II, non insulin dependent ([facility]) 04/09/2021 Diabetes type 2, controlled ([facility]) Elevated PSA 05/22/2023 Essential hypertension ([facility]) 11/24/2021 Hyperplastic rectal polyp 01/29/2024 Hypertensive left ventricular hypertrophy, without heart failure ([facility]) 01/22/2023 Kidney disease Left renal mass 01/17/2023 Never smoked tobacco 10/31/2023 Obstructive sleep apnea 01/22/2023 Paroxysmal atrial fibrillation ([facility]) 10/31/2023 Positive fecal occult blood test 01/29/2024 [...] tablet by mouth Daily, Disp: , Rfl: Vzinjmlpbbk-Hrxmbenop-Wwcjzc (Trelegy Ellipta) 100-62.5-25 MCG/ACT aerosol powder , Inhale 1 puff Daily, Disp: 3 each, Rfl: 3 ipratropium (Atrovent) 0.06 % nasal spray, Administer 2 sprays into each nostril in the morning and2 sprays in the evening and 2 sprays [...] and 5 mg in the evening., Disp: ,Rfl: Past Surgical History: Procedure Laterality Date PARTIAL [...] family physician and subspecialist documented in this [facility]01-02-2025 History of Present illness Narrative* Jany Navarrete MD - 02/12/2024 3:40 PM EST Clarence Flores returns to the office today For follow-up assessment for his asthma and sinusitis. He was started on Augmentin several weeks ago after his CT scan was positive for sinusitis. He has beenon antibiotics for 3 weeks and is about 80% better at the current time. He feels that his asthma has been doing well and he has no SOB. He has not been wheezing or having SOB. This has been his only s inus infection in the past 5 years. EXAM [...] an as needed basis. documented in this [facility]12-20-2024 History of Present illness Narrative* Leon Castro DO - 01/30/2024 3:30 PM EST Subjective Patient ID: Clarence Flores is a [...] Past Medical History: Diagnosis Date Asymptomatic hypertension ([facility]) Atrial fibrillation ([facility]) BMI 34.0-34.9,adult 10/31/2023 BMI 40.0-44.9, adult ([facility]) 01/23/2023 Diabetes mellitus type II, non insulin dependent ([facility]) 04/09/2021 Diabetes type 2, controlled ([facility]) Elevated PSA 05/22/2023 Essential hypertension ([facility]) 11/24/2021 Hyperplastic rectal polyp 01/29/2024 Hypertensive left ventricular hypertrophy, without heart failure ([facility]) 01/22/2023 Kidney disease Left renal mass 01/17/2023 Never smoked tobacco 10/31/2023 Obstructive sleep apnea 01/22/2023 Paroxysmal atrial fibrillation ([facility]) 10/31/2023 Positive fecal occult blood test 01/29/2024 [...] tablet by mouth Daily, Disp: , Rfl: Ikgfhwtpgvi-Zicurltsw-Fmtndd (Trelegy Ellipta) 100-62.5-25 MCG/ACT aerosol powder , Inhale 1 puff Daily, Disp: 3 each, Rfl: 3 ipratropium (Atrovent) 0.06 % nasal spray, Administer 2 sprays into each nostril in the morning and2 sprays in the evening and 2 sprays [...] and 5 mg in the evening., Disp: ,Rfl: Past Surgical History: Procedure Laterality Date PARTIAL [...] intact, deviation of the nasal septum to theright. Congestion noted bilaterally. Review of his CT [...] There is bilateral nasal congestion with septal d eviation. Copious mucopurulent drainage is coming from the [...] to help rinse the thick secretions from hisnose. We will see him back in 2 weeks for recheck. Orders: - Ambulatory referral to ENT documented in this [facility]12-13-2024 History of Present illness Narrative* Jany Navarrete MD - 01/23/2024 5:57 PM EST I called the patient and discuss the results and sent in Augmentin for him. documented in this [facility]12-02-2024 History of Present illness Narrative* Jany Navarrete MD - 01/12/2024 4:00 PM EST Clarence Flores returns to the office today [...] for post nasal drip. documented in this [facility]11-06-2024 History of Present illness Narrative* Jany Navarrete MD - 12/17/2023 2:40 PM EST Clarence Flores is a very pleasant 63 y.o. year old male who comes to the office today with the chief complaint of nasal airway obstruction and cough for 5 months. He has facial pressure SOB and cough as well. He does not smoke and has no pets. Has some worseningof symptoms in spring and fall. 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 If the combination of azelastine nasal spray [...] sooner should problems arise. documented in this encounterMissouri Baptist Medical [id number] History of Present illness Narrative* Mike Morelos, DO - 10/31/2023 9:00 AM EDT Subjective Clarence Flores is a 62 y.o. male Chief Complaint Follow-up 62-year-old gentleman here for follow-up for the first time to see me since he was last admitted [facility] 1 year ago for accelerated [...] any prolonged palpitations/tachyarrhythmias, long discussion regards to A- fib management; if complicated, or if needs aggressive [...] times a day. Take half a tablet bymouth every morning and one tablet by mouth [...] the direction and in the presence of Tano Morelos DO. Provider Attestation - Scribe documentation All medical record entries made by the Scribe were at my direction and personally dictated by me. Ihave reviewed the chart and agree that the record accurately reflects my personal performance of the history, physical exam, discussion and plan. [facility]St[facility] Work Phone: 1(320) 990-854509-20-2024 Instructions* Patient Instructions* Sita Uribe RN - 10/31/2023 9:00 AM [...] exercise. Stay on eliquis Get 14 day color receiver Only use cardizem as needed is a fib lasts longer than 1-5 mins documented in this encounterSt. [facility] Hospital Work Phone: 1(459) 144-198506-24-2024 NotePatient: CLARENCE FLORES Age: 62 years Sex: Male : 1960 Associated Diagnoses: None Author: Tariq GORDON MD Subjective no changes to & [facility] CenterComment on above:Result Comment: Electronically Signed By: Tariq GORDON MD\.br\Date and Time Signed: 08/04/23 07:34 [id number] NoteChief Complaint consultation for positive occult stool HPI Staff 62 year old male presents on consultation from Dr. Singer for positive occult stool. Denies noting blood in stool. Denies abdominal or rectal pain. Reports some bowel changes and GI upset after startingOzempic. No unexplained weight loss. Never had colonoscopy [...] swallowing difficulties, no hearing loss, no ear infection(s),no nose bleeds. Cardiovascular: normal blood pressure, no [...] Heart disease: Father and Sister. Ovarian cancer: Mother.[facility] HospitalComment on above:Result Comment: Electronically Signed By: EVAN SARAH, Tariq Bailey\.yosvany\Date and Time Signed: 07/14/23 14:28 [id number] History of Present illness Narrative* Andra Ramirez, DREDGE OPERATOR-STUDENT RECORDS COORDINATOR - 04/23/2023 3:30 PM EDT Subjective: Clarence Flores is a 62 y.o. [...] sodium restriction. Annual follow-up Andra Ramirez MSN, DREDGE OPERATOR-STUDENT RECORDS COORDINATOR, PMHNP-[facility] Please excuse any errors in grammar or translation related to this dictation. Voice recognition software was utilized to prepare this document.. documented in this encounterSt. [facility] Hospital Work Phone: 1(204) 911-131703-13-2024 Instructions* Patient Instructions* SUGEY Tabares - 04/23/2023 3:30 PM EDT [...] Dr. Morelos 9 months documented in this encounterSt. [facility] Work Phone: 1([phone]) 935-334412-14-2023 Evaluation + Plan note* Assessment & Plan Note - SUGEY Tabares - 01/23/2023 12:01 PM ESTAssociated Problem(s): BMI 40.0-44.9, adult (CMS/HCC) Recently started treatment with Ozempic Weight is down 10 pounds Reviewed the merits of healthy lifestyle choices on overall cardiovascular health. [facility] Work Phone: [phone] 689-949912-14-2023 Miscellaneous Notes* Assessment & Plan Note - SUGEY Tabares - 01/23/2023 12:01 PM ESTAssociated Problem(s): BMI 40.0-44.9, adult (CMS/HCC) Recently started treatment with Ozempic Weight is down 10 pounds Reviewed the merits of healthy lifestyle choices on overall cardiovascular health. * Assessment & Plan Note - SUGEY Tabares - 01/23/2023 12:00 PM EST Associated Problem(s): Obstructive sleep apnea Remains compliant with CPAP * Assessment & Plan Note - SUGEY Tabares - 01/23/2023 12:00 PM EST Associated Problem(s): Diabetes mellitus type II, non insulin dependent ([facility]) On ARB No statin Unknown hemoglobin A1c * Assessment & Plan Note - SUGEY Tabares - 01/23/2023 11:59 AM EST Associated Problem(s): Hypertensive left ventricular hypertrophy, without heart failure November 2022 TTE LVEF greater than 70% LVH moderate MR trace * Assessment & Plan Note - SUGEY Tabares - 01/23/2023 11:59 AM EST Associated Problem(s): Essential hypertension He has been compliant with addition of doxazosin and valsartan since discharge. Reports PCP stopped hydrochlorothiazide. Remains elevated in office today * Assessment & Plan Note - SUGEY Tabares - 01/23/2023 11:59 AM EST Associated Problem(s): Cardiac and Vasculature November 2022 hospitalization for chest pressure, ruled out ACS. Inpatient echo EF greater than 70%, no wall motion abnormality. Subsequent December 2022 perfusion study no ischemia, no infarct. Completed 4 METS. EF 59%. documented in this encounterSt. [facility] Work Phone: [phone] 960-700012-14-2023 Evaluation + Plan note* Assessment & Plan Note - SUGEY Tabares - 01/23/2023 12:00 PM ESTAssociated Problem(s): Obstructive sleep apnea Remains compliant with CPAP [facility] Work Phone: [phone] 649-333912-14-2023 Evaluation + Plan note* Assessment & Plan Note - SUGEY Tabares - 01/23/2023 12:00 PM ESTAssociated Problem(s): Diabetes mellitus type II, non insulin dependent ([facility]) On ARB No statin Unknown hemoglobin A1c [facility] Work Phone: 1([phone]) 435-365012-14-2023 Evaluation + Plan note* Assessment & Plan Note - SUGEY Tabares - 01/23/2023 11:59 AM ESTAssociated Problem(s): Hypertensive left ventricular hypertrophy, without heart failure November 2022 TTE LVEF greater than 70% LVH moderate MR trace [facility] Work Phone: [phone] 310-302112-14-2023 Evaluation + Plan note* Assessment & Plan Note - SUGEY Tabares - 01/23/2023 11:59 AM ESTAssociated Problem(s): Essential hypertension He has been compliant with addition of doxazosin and valsartan since discharge. Reports PCP stopped hydrochlorothiazide. Remains elevated in office today [facility] Work Phone: [phone] 804-868812-14-2023 Evaluation + Plan note* Assessment & Plan Note - SUGEY Tabares - 01/23/2023 11:59 AM ESTAssociated Problem(s): Cardiac and Vasculature November 2022 hospitalization for chest pressure, ruled out ACS. Inpatient echo EF greater than 70%, no wall motion abnormality. Subsequent December 2022 perfusion study no ischemia, no infarct. Completed 4 METS. EF 59%. [facility] Work Phone: [phone]) 363-407012-13-2023 History of Present illness Narrative* SUGEY Tabares - 01/22/2023 3:30 PM EST Chief Complaint Doing fine Reason for Visit Patient presents to the office today for outpatient follow-up for hospital follow up. Patient was recently hospitalized at [facility]. The patient was seen in Cardiology consult with subsequent cardiovascular management by [facility]. Hospitalization records have been reviewed. Reason for Cardiology Consultation: Chest pressure, accelerated hypertension Consulting Mine Safety Manager: Dr. Morelos Cardiovascular testing: Echocardiogram, outpatient perfusion study Changes to cardiovascular medical regimen at time of discharge: Added Cardura 8 mg, valsartan 320 mg, hydrochlorothiazide Discharge disposition: Home This is initial in clinic evaluation at [facility] Presents today ambulatory with steady gait. [...] Recently started treatment with Ozempic and is workingon weight loss. Continues to follow blood pressure [...] Diabetes mellitus type II, non insulin dependent ([facility]) On ARB No statin Unknown hemoglobin A1c Obstructive sleep apnea Remains compliant with CPAP BMI 40.0-44.9, adult ([facility]) Recently started treatment with Ozempic Weight is [...] warranted and to continue withfollowing modifications: - There are no changes to what you are taking only adding: Norvasc 10mg daily 2. Return for follow-up; in the interim, contact the office if new symptoms arise. CUSTOMER ACQUISITION SPECIALIST after 2 months Andra Ramirez MSN, DREDGE OPERATOR-STUDENT RECORDS COORDINATOR, PMHNP-[facility] Please excuse any errors in grammar or translation related to this dictation. Voice recognition software was utilized to prepare this document. documented in this encounterSt. [facility] Hospital Work Phone: [phone] Instructions* Patient Instructions* SUGEY Tabares - 01/22/2023 3:30 PM EST [...] warranted and to continue withfollowing modifications: - There are no changes to what you are taking only adding: Norvasc 10mg daily 2. Return for follow-up; in the interim, contact the office if new symptoms arise. CUSTOMER ACQUISITION SPECIALIST after 2 months documented in this encounterSt. [facility] Work Phone: Evaluation + Plan note Future Appointments Appointment Date:08/04/2023 08:30:00 AM Scheduled Provider: Location:[facility] Appointment Type:Surgery [facility] [place] Evaluation note* Diagnosis Onset Date Resolution Status Chest pain acuteHypertensive urgencyacute [facility] Work Phone: Evaluation note* Diagnosis Essential hypertension- Primary Unspecified essential hypertension Chest pain, unspecified type Obstructive sleep apnea Obstructive sleep apnea (adult) (pediatric) Diabetes mellitus type II, non insulin dependent (CMS/HCC) Type II or unspecified type diabetes mellitus without mention of complication, not stated as uncontrolled Hypertensive left ventricular hypertrophy, without heart failure BMI 40.0-44.9, adult ([facility]) documented in this encounter [facility] Work Phone: Evaluation note* Diagnosis BMI 40.0-44.9, adult ([facility]CC)- Primary Essential hypertension Unspecified essential hypertension documented in this [facility] Work Phone: Evaluation noteNo assessment information available [facility] Work Phone: Evaluation note* Diagnosis TONY (obstructive sleep apnea)- Primary Obstructive sleep apnea (adult) (pediatric) Snoring Other dyspnea and respiratory abnormality Daytime hypersomnolence documented in this encounter [facility]* Diagnosis Dyspnea on exertion- Primary Other dyspnea and respiratory abnormality Chronic rhinitis documented in this encounter [facility]* Diagnosis Cough variant asthma ([facility])- Primary Cough variant asthma Acute maxillary sinusitis, recurrence not specified documented in this encounter [facility]* Diagnosis Essential hypertension- Primary Unspecified [...] without heart failure documented in this encounter [facility] Work Phone: Evaluation note* Diagnosis Acute maxillary sinusitis, recurrence not specified- Primary documented in this encounter [facility]* Diagnosis Chronic anticoagulation- Primary Encounter for long-term (current) use of 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 Sinusitis, unspecified chronicity, unspecified location Nasal congestion Other diseases of nasal cavity and sinuses documented in this encounter [facility]* Diagnosis Acute maxillary sinusitis, recurrence not specified- Primary documented in this encounter [facility]* Diagnosis Sinusitis, unspecified chronicity, unspecified location- Primary Nasal congestion Other diseases of nasal cavity and sinuses Chronic anticoagulation Encounter for long-term (current) use of 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 documented in this encounter [facility] HealthcareEvaluation note* Diagnosis Renal cancer, left (HCC) documented in this encounter [facility] [place] [facility]* Diagnosis Sinusitis, unspecified chronicity, unspecified location- Primary Nasal congestion Other diseases of nasal cavity and sinuses Chronic anticoagulation Encounter for long-term (current) use of 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 documented in this encounter [facility] HealthcareEvaluation note* Diagnosis Essential hypertension- Primary [...] Never smoked tobacco documented in this encounter [facility] Work Phone: Evaluation note* Diagnosis Chronic anticoagulation- Primary Encounter for long-term (current) use of 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 Sinusitis, unspecified chronicity, unspecified location Nasal congestion Other diseases of nasal cavity and sinuses documented in this encounter [facility] HealthcareEvaluation note* Diagnosis Sinusitis, unspecified chronicity, unspecified location- Primary Chronic anticoagulation Encounter for long-term (current) use of 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 Nasal congestion Other diseases of nasal cavity and sinuses documented in this encounter [facility] Healthcare[facility] note* Diagnosis Renal cancer, left (HCC) History of partial nephrectomy Personal history of surgery to other organs documented in this encounter [facility] HealthEvaluation note* Diagnosis Sinusitis, unspecified chronicity, unspecified location- Primary Nasal congestion Other diseases of nasal cavity and sinuses Chronic anticoagulation Encounter for long-term (current) use of 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 documented in this encounter [facility] HealthcareEvaluation note* Diagnosis Sinusitis, unspecified chronicity, unspecified location- Primary Nasal congestion Other diseases of nasal cavity and sinuses Chronic anticoagulation Encounter for long-term (current) use of 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 documented in this encounter [facility] HealthcareEvaluation note* Diagnosis Elevated PSA Elevated prostate specific antigen (PSA) documented in this encounter [facility] HealthEvaluation note* Diagnosis Sinusitis, unspecified chronicity, unspecified location- Primary Chronic anticoagulation Encounter for long-term (current) use of 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 Nasal congestion Other diseases of nasal cavity and sinuses documented in this encounter [facility] Healthcare[facility] note* Diagnosis Essential hypertension- Primary [...] Other iatrogenic hypotension documented in this encounter [facility] Work Phone: Evaluation note* Diagnosis Chronic cough- Primary Cough Sinusitis, unspecified chronicity, unspecified location Rhinitis medicamentosa Other diseases of nasal cavity and sinuses Chronic anticoagulation Encounter for long-term (current) use of 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 documented [facility] this encounter [facility] Narrative No data available for this section [facility] Discharge instructions No data available for this section [facility] Progress note No data available for this section [facility] [place] Reason for referral (narrative)* Consultation (Routine) - AuthorizedSpecialtyDiagnoses / ProceduresReferred By ContactReferred To ContactCardiology Diagnoses Essential hypertension Procedures Follow Up In Cardiology Andra Ramirez, DREDGE OPERATOR-STUDENT RECORDS COORDINATOR [address] [facility] [address] [place] [address] Referral IDStatusReasonStart DateExpiration DateVisits RequestedVisits [id number]/ [facility] Work Phone: Relpfw for referral (narrative)* Consultation (Routine) - AuthorizedSpecialtyDiagnoses / ProceduresReferred By Contact Referred To ContactCardiology Diagnoses Essential hypertension Procedures Follow Up In Cardiology Andra Ramirez APRN-AMBREEN [address] [facility] [address], [facility] [address] [place] [address] Mike Morelos DO [address] [facility] [address], [facility] [facility] [address] [place] [address] Referral IDStatusReasonStart DateExpiration DateVisits RequestedVisits [id number]/13/20243/ [facility] Work Phone: reason for referral (narrative)No reason for referral information availableWvumedicine [facility] Work Phone: Resfyr for visit Narrative* Imaging (Routine) - Not Required - RTASpecialtyDiagnoses / ProceduresReferred By ContactReferred To ContactRadiology Diagnoses Renal cancer, left (HCC) History of partial nephrectomy Procedures US RENAL LIMITED Cuca Paulino, DREDGE OPERATOR - STUDENT RECORDS COORDINATOR [address] [facility] [address] [place] [address] Phone: tel: fax: Referral IDStatusReasonStart DateExpiration DateVisits RequestedVisits [id number] Required - RTA [facility] Summary Purpose Family History [...] 2022 1:53am Hospital Course Note HNO ID: [id number] Author: Delonte pham ([facility]) rupert Service: Urology Author Type: Nurse Practitioner Type: [...] 02, 2024 4:09 pm Reason for Referral SpecialtyDiagnoses / ProceduresReferred By ContactReferred To ContactCardiology Diagnoses Paroxysmal atrial fibrillation (Multi) Procedures Holter Or Event Public Health Sanitarian Technician Mike Morelos, DO [address] [facility] 2, [address] [address] Referral IDStatusReasonStart DateExpiration DateVisits RequestedVisits [id number] / ProceduresReferred By ContactReferred To ContactCardiology Diagnoses Essential hypertension Procedures Follow Up In Cardiology Mike Morelos, [facility] [facility], [place] [phone] Mike Morelos, [address] [facility] 2, [place] [phone] Referral IDStatusReasonStart DateExpiration DateVisits RequestedVisits [id number]/20/20249/20/202511 Additional Source Comments (unrecognized sect ion and content) No Status Records FoundNo Status Records FoundNo Status Records FoundNo Status Records FoundNo Status Records FoundNo Status Records Found INFORMATION SOURCE (unrecogn ized section and content) DATE CREATED AUTHOR 06/26/2019 [facility] DATE CREATED AUTHOR AUTHOR'S ORGANIZ ATION 12/03/2021 [facility] DATE CREATED AUTHOR AUTHOR'S ORGANIZ ATION 10/03/2023 [facility] DATE CREATED AUTHOR AUTHOR'S ORGANIZ ATION 08/31/2024 [facility] DATE CREATED AUTHOR AUTHOR'S ORGANIZ ATION 09/15/2024 [facility] DATE CREATED AUTHOR AUTHOR'S ORGANIZ ATION 11/28/2024 [facility] EPIC Care Teams (unrecognized sec tion and content) Team Status: Active Member Role Status Dates Shea Singer MD Primary Care Provider Active Team Status: Inactive Member Role Status Dates Shea Singer MD Primary Care Provider Active Start: May 28, 2024 End: May 28, 2024W Mabel Diazunc [facility] n[facility] ProviderActiveStart: May 28, 2024 End: May 28, 2024 Team Status: Active Member Role Status Dates Shea Singer MD Primary Care Provider Active Kaela Eckertrtk ProviderActiveObaBe Love Provider, Attending ProviderActiveTeam MemberRelationshipSpecialtyStart DateEnd Date Shea Singer MD [address] [place] [address] [facility] - [facility] Jigykfnv22/4/23Team MemberRelationshipSpecialtyStart DateEnd Date Shea Singer MD [address] [place] [address] PCP - [facility] Wlufitxu81/4/23Team MemberRelationshipSpecialtyStart DateEnd Date Shea Singer MD [address] [place] [address] PCP - [facility]11/13/22Team MemberRelationshipSpecialtyStart DateEnd Date Shea Singer MD [address] [place] [address] PCP - Generalmi Erindsul06/4/23 Team Status: Inactive Member Role Status Dates Tariq Gordon MD FACS Attending Provider Active Start: September 17, 2023 End: September 17, 2023Team MemberRelationshipSpecialtyStart DateEnd Date Shea Singer MD [address] [place] [address] [facility] Ixbxespq13/4/23Team MemberRelationshipSpecialtyStart DateEnd Date Shea Singer MD [address] [place] [address] PCP - GeneralFamily Jmyfhtwn08/20/24Team MemberRelationshipSpecialtyStart Date End Date Shea Singer MD [address] [place] [facility] [place] [address] PCP - GeneralFamily Wwohvixm40/20/24Team MemberRelationshipSpecialtyStart Date End Date Shea Singer MD [address] [place] [facility] [place] [address] PCP - GeneralFamily Kcfkdakl85/20/24Team MemberRelationshipSpecialtyStart Date End Date Shea Singer MD [address] [facility] [place] [address] PCP - GeneralFamily Xnibsczx36/20/24 Rachel Mckeon, DENIS [address] Nurse PractitionerNeurology1 Leon Castro DO [address] [facility] [place] [address] Otolaryngology1Team MemberRelationshipSpecialtyStart DateEnd Date Shea Singer MD [address] [place] [facility] [address] PCP - GeneralFamily Medicine05/23/23Team MemberRelationshipSpecialtyStart DateEnd Date Shea Singer MD [address] [place] [facility] [place] [address] PCP - GeneralFamily Bjirzchd47/20/24 Rachel Mckeon NP [address] Nurse PractitionerNeurolog02/13/24 Leon Castro DO [address] [place] [address] Otolaryngology1Team MemberRelationshipSpecialtyStart DateEnd Date Shea Singer MD [address] [facility] [place] [address] PCP - GeneralFamily Nwqyiopp97/20/24 Rachel Mckeon NP [address] Nurse PractitionerNeurology1 Leon Castro DO [address] [place] [address] Otolaryngolog02/13/24Team MemberRelationshipSpecialtyStart DateEnd Date Shea Singer MD [address] [place] [address] PCP - GeneralFamily Deivqfrn24/4/23Team MemberRelationshipSpecialtyStart DateEnd Date Shea Singer MD [address] [facility] [place] [address] PCP - GeneralFamily Ulbgdcjb46/20/24 Rachel Mckeon NP [address] Nurse PractitionerNeurolog02/13/24 Leon Castro DO [address] [place] [address] Otolaryngolog02/13/24Team MemberRelationshipSpecialtyStart DateEnd Date Shea Singer MD PCP - Generalmily Yfeqemzs64/20/24 Rachel Mckeon NP [address] [place] [address] Nurse PractitionerNeurolog02/13/24 Leon Castro DO [address] [place] [address] Otolaryngolog02/13/24Team MemberRelationshipSpecialtyStart DateEnd Shea Singer MD [facility] - [facility] Qacoyuzd05/20/24 Rachel Mckeon NP [address] [place] [address] Nurse PractitionerNeurolog02/13/24 Leon Castro DO [address] [place] [address] Otolaryngolog02/13/24 Team Status: Inactive Member Role Status Dates Shea Singer MD Primary Care Provider Active Start: August 02, 2024 End: August 02, 2024Pamatthieu Castro DOAttending ProviderActiveStart: August 02, 2024 End: August 02, 2024 Team Status: Inactive Member Role Status Dates Leon Castro DO Attending Provider Active S tart: August 12, 2024 End: August 12, 2024Team MemberRelationshipSpecialtyStart DateEnd Date Shea Singer MD PCP - GeneralFamily Roeogqhq08/20/24 Rachel Mckeon NP Nurse PractitionerNeurolog02/13/24 Leon Castro DO [address] [place] [address] Otolaryngolog02/13/24Team MemberRelationshipSpecialtyStart [place] [address] [place] [address] PCP - [facility] Medicine05/23/23Team MemberRelationshipSpecialtyStart DateEnd Date Shea Singer MD [facility] [place] [address] [facility]/23/23Team MemberRelationshipSpecialtyStart DateEnd Date Shea Singer MD PCP - GeneralFamily Jbtjskqn23/20/24 Rachel Mckeon NP Nurse PractitionerNeurolog02/13/24 Leon Castro DO [address] [place] [address] Otolaryngolog02/13/24Team MemberRelationshipSpecialtyStart DateEnd Date Shea Singer MD PCP - [facility] Yddqnsti67/20/24 Rachel Mckeon, DENIS Nurse PractitionerNeurolog02/13/24 Leon Castro, [address] [place] [address] Otolaryngolog02/13/24Team MemberRelationshipSpecialtyStart DateEnd Date Shea Singer MD PCP - [facility]01/30/24 Rachel Mckeon NP Nurse PractitionerNeurolog02/13/24 Leon Castro DO [address] [place] [address] Otolaryngolog02/13/24Team MemberRelationshipSpecialtyStart DateEnd Date Shea Singer MD PCP - [facility]01/30/24 Rachel Mckeon NP Nurse PractitionerNeurolog02/13/24 Leon Castro, [address] [place] [address] Otolaryngology1Team MemberRelationshipSpecialtyStart DateEnd Date Shea Singer MD [address] [place] [address] PCP - GeneralFamily Medicine05/23/23Team MemberRelationshipSpecialtyStart DateEnd Date Shea Singer MD PCP - GeneralFamily Givgvbvc36/20/24 Rachel Mckeon, CUSTOMER ACQUISITION SPECIALIST Nurse PractitionerNeurolog02/13/24 Leon Castro DO [address] [place] [address] Otolaryngolog02/13/24Team MemberRelationshipSpecialtyStart DateEnd Date Shea Singer MD PCP - GeneralFamily Gtnwulgm53/20/24 Rachel Mckeon NP Nurse PractitionerNeurolog02/13/24 Leon Castro, [address] [place] [address] Otolaryngolog02/13/24Team MemberRelationshipSpecialtyStart DateEnd Date Shea Singer MD [address] [place] [address] PCP - GeneralFamily Aveznjgp20/4/23Team MemberRelationshipSpecialtyStart DateEnd Date Shea Singer MD PCP - GeneralFamily Ovltswzl21/20/24 Rachel Mckeon NP Nurse PractitionerNeurology1/3/25 Leon Castro DO [address] [place] [id number] Otolaryngolog02/13/24 Goals (unrecognized section and content) Goals may be documented in a n alternate section No data available for this section No data available for this sectionGoals may be documented in an alternate section No data available for this sectionGoals may be documented in an alternate sectionGoals may be documented in an alternate section Reason for Visit (unrecogniz ed section and content) SpecialtyDiagnoses / ProceduresReferred By ContactReferred To ContactRadiology Diagnoses Chest pain, unspecified type Procedures Nuclear Stress Test CHG MYOCARDIAL SPECT MULTIPLE STUDIES CHG MYOCARDIAL SPECT SINGLE STUDY AT REST OR STRESS IL CV STRS TST XERS&/OR RX CONT ECG W/O I&R IL CV STRS TST XERS&/OR RX CONT ECG I&R ONLY IL CV STRS TST XERS&/OR RX CONT ECG TRCG ONLY IL CV STRS TST XERS&/OR RX CONT ECG W/SI&R Mike Morelos, DO [address] [facility] 2, [place] [phone] Referral IDStatusReasonStart DateExpiration DateVisits RequestedVisits [id number]/4/20234/091937NiudlfAnzkblocYjhoyeixj of Breath Chest pressureSpecialtyDiagnoses / ProceduresReferred By ContactReferred To ContactCardiology Diagnoses Chest pain, unspecified type Procedures Follow Up In Cardiology Mike Morelos, DO [address] [facility] 2, [place] [phone] Mike Morelos, DO [address] [facility] 2, [place] [phone] Referral IDStatusReasonStart DateExpiration DateVisits RequestedVisits [id number]/27/202311/176295WgynnbHvuambtfByfxin-bp5 month SpecialtyDiagnoses / ProceduresReferred By ContactReferred To ContactCardiology Diagnoses Essential hypertension Procedures Follow Up In Cardiology Andra Ramirez, DREDGE OPERATOR-STUDENT RECORDS COORDINATOR 7[address] [facility] 2, [address] [place] [address] Referral IDStatusReasonStart DateExpiration DateVisits RequestedVisits [id number]/13/20242/[id number] ApneaReason Commentsnew patientC/O sinus pain and pressure since June has been on antibiotics helped for the time and then came back.ReasonCommentsnew patientNo surgeries; no hospital stays. Still having problems with taste and smellReasonComments Follow-upPer Dr. Ambrose OV (a-fib)ReasonCommentsNasal CongestionNew Patient : nasal congestion / referred for sinusitis / CT doneSpecialtyDiagnoses / ProceduresReferred By ContactReferred To ContactOtolaryngology Diagnoses Sinusitis, unspecified chronicity, unspecified location Nasal congestion Procedures [place] OFFICE/OUTPATIENT [facility] 60 MINUTES Rachel Mckeon, DENIS [address] [place] [address] Phone: tel: fax: Leon Castro, DO [address] [facility] [place] [address] Phone: tel: fax: Referral IDStatusReasonStart DateExpiration DateVisits RequestedVisits [id number] Specialty Services Required /[id number] Congestion2 week reckSpecialtyDiagnoses / ProceduresReferred By ContactReferred To ContactRadiology Diagnoses Renal cancer, left (HCC) Procedures CT ABDOMEN PELVIS W IV CONTRAST Additional Contrast? None CT ABDOMEN PELVIS W WO CONTRAST Additional Contrast? None Damion Hay MD [address] [facility], [address] [place] [address] Referral IDStatusReasonStart DateExpiration DateVisits RequestedVisits [id number]/3/20248/17/620262LmsxwsQroqmxrfIbtxpzgrfBL results ReasonCommentsSinusitis2 week reckReasonCommentsFollow-up6 month for essential hypertensionSpecialtyDiagnoses / ProceduresReferred By ContactReferred To ContactCardiology Diagnoses Essential hypertension Procedures Follow Up In Cardiology Mike Morelos, DO [address] [facility] 2, [place] [phone] Phone: tel: fax: Mike Morelos, DO [facility] [facility], [facility] [address] [place] [phone] Phone: tel: fax: Referral IDStatusReasonStart DateExpiration DateVisits RequestedVisits [id number]/20/20249/20/567529BddltdKepdrsjyLkmhgcsylXjsj / out of xhanceReasonCommentsPost-opPost op Septo / Turbs / FESSReasonCommentsPost-op 2 week alhaji Septo / FESSReasonCommentsBlood Pressure CheckPatient here for blood pressure check, c/o occasional lightheadedness if he stands up to quickly. ReasonCommentsNasal CongestionNasal congestion and cough FOR RECORDS PERTAINING TO PATIENTS WHO ARE [...] BE BASED ON THE PRIMARY CLINICAL RECORDS. [employer] [facility]. provides no warranty or guarantee of the accuracy or completeness of information in this document.
--- OUTSIDE RECORDS SUMMARY | 2024-12-21 06:14 | XMS_ITS | Clinical Summary ---
Author Organization [facility] Address [address] [facility], [address] [place] [address] Care Team Providers Care Bell Spinner Name Role Phone Stalin Singer MD Primary Care Provider [phone] Allergies Active AllergyReactionsCriticalityNoted DateCommentsNitroglycerinOther (See Comments)11/26/2018 Patient states that he was given this medication and did not need it then I crashed Medications MedicationSigDispense QuantityRefillsLast FilledStart DateEnd DateStatus doxazosin (CARDURA) 4 MG tablet Take 1 tablet by mouth nightlyActive empagliflozin (JARDIANCE) 10 MG tablet Take 1 tablet by mouth dailyActive blood glucose test strips (TRUE METRIX BLOOD GLUCOSE TEST) strip 1 each by In Vitro route daily As needed.Active valsartan (DIOVAN) 160 MG tablet Take 1 tablet by mouth dailyActive azelastine (OPTIVAR) 0.05 % ophthalmic solution 1 drop as neededActive metoprolol succinate (TOPROL XL) 25 MG extended release tablet Take 1 tablet by mouth daily4Active OZEMPIC, 2 MG/DOSE, 8 MG/3ML SOPN sc injection Inject 2 mg into the skin every 7 days07/29/2023ctive spironolactone (ALDACTONE) 25 MG tablet Take 1 tablet by mouth daily5Active amLODIPine (NORVASC) 5 MG tablet Take 2 tablets by mouth daily5Active apixaban (ELIQUIS) 5 MG TABS tablet Take 1 tablet by mouth 2 times daily/6Active fluconazole (DIFLUCAN) 150 MG tablet Take one tablet PO now, then repeat dose in 72 hours 2 tablet 5Active Additional Information Patient not taking.Reported on 11/15/2024 tamsulosin (FLOMAX) 0.4 MG capsule Indications:BPH with obstruction/lower urinary tract symptomsTake 1 capsule by mouth in the morning and at bedtime 60 capsule 5Active Active Problems ProblemNoted DateDiagnosed DateElevated PSA05/22/2023 Encounters DateTypeDepartmentCare RratJnigurvkogs39/06/2025 4:15 PM EDTOffice Visit [facility] [address] [place] [address] Moises Overton PA-C BPH with obstruction/lower urinary tract symptoms (Primary Dx); History of partial nephrectomy; Renal cancer, left (HCC); Elevated PSA09/27/2024 4:00 PM EDTOffice Visit [facility] Part [address] [place] [address] Moises Overton PA-C Elevated PSA (Primary Dx); BPH with obstruction/lower urinary tract symptomsfrom Last 3 Months Family History Medical HistoryRelationNameCommentsAlcohol AbuseFatherHeart DiseaseFatherOvarian CancerMotherHeart DiseaseSisterRelationNameStatusCommentsFatherDeceasedMother DeceasedSisterAlive Social History Tobacco UseTypesPacks/DayYears UsedDateSmoking Tobacco: NeverPassive Smoke Exposure: PastSmokeless Tobacco: Never Tobacco Cessation:Counseling Given: Not Answered Alcohol UseStandard Drinks/WeekCommentsYes1 (1 standard drink = 0.6 oz pure alcohol)Sex and Gender InformationValueDate RecordedSex Assigned at BirthMale 11/08/2024 3:38 PM EDTLegal FvxAtky0105/08/2023 1:22 PM EDTGender IdentityMale 05/22/2023 3:10 PM EDTSexual OrientationNot on file Last Filed Vital Signs Vital SignReadingTime TakenCommentsBlood Otezpeqs868/7010/07/2024 4:08 PM EDT Ajquj2477 4:00 PM ZMITduhwdcjror52.6 ??C (97.8 ??F)11/15/2024 4:08 PM EDTRespiratory Rate--Oxygen Saturation--Inhaled Oxygen Concentration--Weight 110.7 kg (244 lb)11/15/2024 4:08 PM CPFHakycw514.6 cm (5' 6 )08/28/2023 2:37 PM EDTBody Mass Index39.38008/28/2023 2:37 PM EDT Plan of Treatment DateTypeDepartmentCare Team (Latest Contact Info)Buyheqausbt82/03/2025 3:45 PM ESTOffice Visit [facility] Part of [address] [place] [address] Moises Overton, PAJoaquínC [address] [facility] [address] [place] [phone] 6-8w med check/ pvrHealth MaintenanceDue DateLast DoneCommentsDepression Screen 1974HIV mmlrxp0111/10/1977Hepatitis C stbdmi2511/10/1980DTaP/Tdap/Td vaccine (1 - Tdap)11/10/19814451Ilvwvy71/01/4050Veznrnumzue25/01/2008Colorectal Cancer Ddwbun7111/11/2007FIT/FOBT: Average risk11/11/2007Fecal-DNA (Cologuard): Average risk11/11/2007Sigmoidoscopy/CT gjgyusqysgvf63/01/2008Pneumococcal 50+ years Vaccine (1 of 1 - PCV)2012Shingles vaccine (1 of 2)2012Respiratory Syncytial Virus (RSV) or age 60 yrs+ (1 - Risk 60-74 years 1-dose series)2022Flu vaccine (#1)09/10/2024OVID-19 Vaccine ( - season) 2024Prostate Specific Antigen (PSA) Screening or Adzfehhozx80/22/2026 07/01/2024, 03/27/2024, 08/21/2023, Additional history existsHepatitis A vaccine Aged OutNo longer eligible based on patient's age to complete this topic Hepatitis B vaccineAged OutNo longer eligible based on patient's age to complete this topicHib vaccineAged OutNo longer eligible based on patient's age to complete this topicMeningococcal (ACWY) vaccineAged OutNo longer eligible based on patient's age to complete this topicMeningococcal B vaccineAged OutNo longer eligible based on patient's age to complete this topicPolio vaccineAged OutNo longer eligible based on patient's age to complete this topic Procedures Procedure NamePriorityDate/TimeAssociated DiagnosisCommentsMEAS,POST-VOID RES,US,NON-IMNSETYIqlasrv14/06/2025 4:24 PM EDT BPH with obstruction/lower urinary tract symptoms PSA, JNEHXRPGLINortgon22/22/2025 3:25 PM EDT Elevated PSA from Last 3 Months or Most Recently Relevant to Health Maintenance Results * (ABNORMAL) PSA, Diagnostic (07/01/2024 3:25 PM EDT)ComponentValueRef RangeTest MethodAnalysis TimePerformed AtPathologist SignaturePSA5.90(H)ng/mLSpecimen (Source)Anatomical Location / LateralityCollection Method / VolumeCollection TimeReceived TimeBLOOD SPECIMEN / Iwzuxop3307/01/2024 3:25 PM EDT Narrative Authorizing ProviderResult TypeResult StatusThgustavo Hay MDCHEMISTRY ORDERABLESFinal Result from Last 3 Months or Most Recently Relevant to Health Maintenance Insurance Care Teams Team MemberRelationshipSpecialtyStart Date Stalin Singer MD [address] [place] [address] PCP - GeneralFamily Medicine05/23/23
--- OUTSIDE RECORDS SUMMARY | 2024-12-21 06:14 | XMS_ITS | Clinical Summary ---
Author Organization [facility] Address [address] [place] [address] Care Team Providers Care Negative Notcher Name Role Phone Stalin Singer MD Primary Care Provider [phone] Rachel Mckeon OPTICIAN APPRENTICE DISPENSING Unavailable [phone] Leon Maria DO Unavailable Allergies Active AllergyReactionsCriticalityNoted VtchPwryirpkVmwqgfxwzrusp09/17/2019 Other Reaction(s): Hypotension, Other (See Comments), Other: See Comments Medications MedicationSigDispense QuantityRefillsLast FilledStart DateEnd DateStatus amLODIPine (Norvasc) 10 MG tablet Take 10 mg by mouth in the morning.01/23/2023ctive apixaban (Eliquis) 5 MG tablet Take 5 mg by mouth in the morning and 5 mg in the evening.09/25/2023ctive empagliflozin (Jardiance) 10 MG Take 1 tablet by mouth DailyActive metFORMIN (Glucophage) 500 MG tablet Take 500 mg by mouth in the morning and 500 mg in the evening. Take with meals. Active metoprolol succinate XL (Toprol-XL) 100 MG 24 hr tablet Take 150 mg by mouth07/03/2023ctive Ozempic, 2 MG/DOSE, 8 MG/3ML solution pen-injector Inject 2 mg under the skin every 7 (seven) days07/03/2023ctive spironolactone (Aldactone) 25 MG tablet Take 25 mg by mouth in the morning.03/25/2023ctive valsartan (Diovan) 160 MG tablet Take 160 mg by mouth in the morning.07/03/2023ctive dilTIAZem CD (Cardizem CD) 120 MG 24 hr capsule Take 120 mg by mouth10/30/2023ctive doxazosin (Cardura) 4 MG tablet Take 4 mg by mouth at bedtimeActive azelastine (Astelin) 0.1 % nasal spray Indications:Chronic rhinitisAdminister 2 sprays into each nostril in the morning and 2 sprays before bedtime. Use in each nostril as directed. 90 mL ctive Knegthsuuyl-Glfmybbxo-Omukim (Trelegy Ellipta) 100-62.5-25 MCG/ACT aerosol powder Indications:Cough variant asthma (HCC)Inhale 1 puff Daily 3 each tive ipratropium (Atrovent) 0.06 % nasal spray Indications:Acute maxillary sinusitis, recurrence not specifiedAdminister 2 sprays into each nostril in the morning and 2 sprays in the evening and 2 sprays before bedtime. 15 mL 11103/14/2023ctive montelukast (Singulair) 10 MG tablet Take 10 mg by mouth Daily01/13/2024ctive predniSONE (Deltasone) 50 MG tablet Indications:Sinusitis, unspecified chronicity, unspecified location,Nasal congestion1 tablet daily in morning with food for 5 days 5 tablet 5Active fluconazole (Diflucan) 150 MG tablet Take one tablet PO now, then repeat dose in 72 hours09/01/2024tive tamsulosin (Flomax) 0.4 MG 24 hr capsule Take 0.4 mg by mouth in the morning and 0.4 mg in the evening.11/15/2024tive amLODIPine (Norvasc) 5 MG tablet 11/09/2024tive metoprolol succinate XL (Toprol-XL) 25 MG 24 hr tablet 11/09/2024tive dexAMETHasone (Decadron) 4 MG tablet Indications:Sinusitis, unspecified chronicity, unspecified locationTake 2 tablets for 5 days 10 tablet 10/17/2025Active Active Problems ProblemNoted DateDiagnosed OjooDbnmdmyymncf02/28/2025 Resolved Problems ProblemNoted DateDiagnosed DateResolved DateHyperplastic rectal polyp01/29/2024 01/29/2024ositive fecal occult blood testSigmoid jvszhueutfmmus91MI 34.0-34.9,adultNever smoked iojoduv69aroxysmal atrial krjisoppzsvt27/20/2024 01/29/2024Elevated PSAMI 40.0-44.9, adult01/23/2023 01/29/2024Hypertensive left ventricular hypertrophy, without heart failure Obstructive sleep apneaLeft renal mass Essential tczzvvcwmfvc41iabetes mellitus type II, non insulin tvouhdvlz79 Encounters DateTypeDepartmentCare JhusUzrjjldfrio70/17/2025 3:15 PM EDTOffice Visit [facility] [address] [place] [address] Leon Maria DO Chronic cough (Primary Dx); Sinusitis, unspecified chronicity, unspecified location; Rhinitis medicamentosa; Chronic ggpujxqqksosdaw68/17/2025amboo flowsheet [facility] [address] [place] [address] Leon Maria DO 11/26/20240649Ngyahp11/15/2025 4:00 PM EDTOffice Visit [facility] [address] [place] [address] Leon Maria DO Sinusitis, unspecified chronicity, unspecified location (Primary Dx); Chronic anticoagulation; Nasal gchixknpav77/15/2025amboo flowsheet [facility] [address] [place] [phone] Leon Maria DO 09/24/2024Travelfrom Last 3 Months Family History Medical HistoryRelationNameCommentsAlcohol abuseMotherOvarian cancerMother RelationNameStatusCommentsMother Social History Tobacco UseTypesPacks/DayYears UsedDateSmoking Tobacco: NeverSmokeless Tobacco: Never Tobacco Cessation:Counseling Given: Not Answered Alcohol UseStandard Drinks/WeekCommentsNever0 (1 standard drink = 0.6 oz pure alcohol)Sex and Gender InformationValueDate RecordedSex Assigned at BirthNot on fileLegal EmzKhsx8311/04/2023 2:00 PM EDTGender IdentityNot on fileSexual OrientationNot on file Last Filed Vital Signs Vital SignReadingTime TakenCommentsBlood Zmpynebb140/7210 2:50 PM EDT Ndyxb142911/12/2023 2:50 PM EDTTemperature--Respiratory Rate--Oxygen Fsgjmromee20% 11/12/2023 2:50 PM EDTInhaled Oxygen Concentration--Shtnle10.5 kg (215 lb) 11/26/2024 3:22 PM BENElvzts164.6 cm (5' 6 )11/26/2024 3:22 PM EDTBody Mass Index34. 3:22 PM EDT Plan of Treatment DateTypeDepartmentCare Team (Latest Contact Info)Pdqhcucsvxt80/12/2025 3:30 PM ESTOffice Visit [facility] [address] [place] [address] Leon Maria DO [address] [place] [address] Insurance Care Teams Team MemberRelationshipSpecialtyStart Date Stalin Singer MD PCP - GeneralFamily Mjjwiqfr58/20/24 Rachel Mckeon NP Nurse PractitionerNeurolog02/13/24 Leon Maria DO [address] [place] [address] Otolaryngolog02/13/24
--- OUTSIDE RECORDS SUMMARY | 2024-12-21 06:14 | XMS_ITS | Clinical Summary ---
Author Organization [facility] Address [address] [place], [place] [address] Care Team Providers Care Rubber Extrusion Machine Operator Name Role Phone Stalin Singer MD Primary Care Provider [phone] Allergies Active AllergyReactionsCriticalityNoted DateCommentsNitroglycerinOther: See Lkdpsjfw59/17/2019 Medications MedicationSigDispense QuantityRefillsLast FilledStart DateEnd DateStatus hydrALAZINE (APRESOLINE) 50 mg tablet Take 1 tablet by mouth twice daily.09/10/2018Active metoprolol succinate ER (TOPROL XL) 25 mg 24 hr tablet Take 1 tablet by mouth twice daily.11/16/2018Active docusate sodium (COLACE) 100 mg capsule Take 1 capsule by mouth twice daily. 40 capsule 12/22/2018Active Additional Information Patient not taking.Reason: Other, Reported on 02/05/2019 iv contrast (will be provided with radiology test) Indications:Renal cell carcinoma of left kidney (HCC)CT ABD/PEL -Inject, intravenously, once for 1 dose.No IV access, insert saline lock prior to the beg inning of sedation, infusion, injection of imaging exam. Discontinue saline lock post exam. If Pt. has a central line or IVAD, may access for administration according to line specific nursing protocol. Once exam is complete flush line and de-access according to line specific nursing protocol in theCT contrast administration guidelines link. 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 Discontinue saline lock post exam. If Pt. has a central line or IVAD, may access for administration according to line specific nursing protocol. Once exam is complete flush line and de-access according to line specific nursing protocol in theCT contrast administration guidelines link. 1 Each 06/21/2019Active enteric contrast (will be provided with radiology test) Indications:Left renal massFor CT ABD/PEL W IVCON Routine order Administer, As Directed One Time Only, via Oral, Rectal, both Oral and Rectal, Enteric Tube, Stoma or Indwelling Catheter, Enteric Contrast as designated per enteric contrast guidelines 1 Each 06/21/2019Active Active Problems ProblemNoted DateDiagnosed DateRenal wfltueuq97/12/2019Left renal mass Social History Tobacco UseTypesPacks/DayYears UsedDateSmoking Tobacco: NeverSmokeless Tobacco: NeverPHQ-2AnswerDate RecordedPHQ2 Cndkc97202/21/2018Area Deprivation IndexAnswer Date RecordedNational Score (1-100), lower number is lower riskNot on file 01/18/2020State Score (1-10), lower number is lower riskNot on file01/18/2020 Data from: https://www.neighborhoodatlas.medicine.[facility].edu/. Last address used for calculationNot on file01/18/2020Sex and Gender InformationValueDate Recorded Sex Assigned at BirthNot on fileLegal NsqWpwc01/10/2019 11:01 AM EDTGender IdentityNot on fileSexual OrientationNot on file Last Filed Vital Signs Vital SignReadingTime TakenCommentsBlood Uskpyjzo222/8102/05/2019 10:26 AM EST Ldjkc470702/05/2019 10:26 AM UDTVvihnhvlnfa27.1 ??C (98.8 ??F)12/25/2018 7:39 AM ESTRespiratory Wmaj534802/24/2018 7:39 AM ESTOxygen Rcrrnuxdvm77%12/25/2018 7:39 AM ESTInhaled Oxygen Concentration--Axjkok918.5 kg (265 lb 9.6 oz)02/05/2019 10:26 AM VIIYlmbfv798.6 cm (5' 6 )02/05/2019 10:26 AM ESTBody Mass Index42.87 02/05/2019 10:26 AM EST Plan of Treatment Health MaintenanceDue DateLast DoneCommentsAnxiety Goffdxotf18/01/1981Depression Mxjbyabns72/01/1981HIV Jeplcuyaw07/01/1981Hepatitis C Qxolmqhbr34/01/1981 DTaP,Tdap,Td Vaccine (1 - Tdap)1981Lipid Dpgpejgxz29/01/1998CT Zedtgizvbwtp74/01/2008Cologuard (FIT-DNA)11/11/20076948Nfeyhstjfxq09/01/2008 Colorectal Cancer Jomonnndt41/01/2008Fecal Occult Blood11/11/2007Prostate Cancer Screening Grjsamalzv33/01/2729Zhxqbpruhsvca57/01/2008Pneumococcal Vaccine: 50+ (1 of 1 - PCV)2012Shingrix Vaccine (1 of 2)2012Diabetes Screening , 12/25/2018, 12/24/2018, Additional history existsCovid-19 Vaccine (1 - 2024- season)2024Influenza Vaccine (#1)2024RSV Vaccine (1 - 1-dose 75+ series)2037 Procedures Procedure NamePriorityDate/TimeAssociated DiagnosisCommentsBASIC METABOLIC PANEL Nnuwfoc8706/21/2019 7:55 AM EDT 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 Diabetes Care. 2016.39(Suppl 1). CWN362 - 24 mg/dL06/21/2019 8:37 AM [facility] Creatinine1.28(H)0.73 - 1.22 mg/dL06/21/2019 8:37 AM [facility] Cancer OfjuWgoeis765761 - 144 mmol/L06/21/2019 8:37 AM [facility] Cancer CarePotassium4.53.7 - 5.1 mmol/L06/21/2019 8:37 AM EDT [facility] Cancer ZvvfMctjapky091(H)97 - 105 mmol/L06/21/2019 8:37 AM [facility] Cancer BmwyTZ04498 - 30 mmol/L06/21/2019 8:37 AM [facility] Cancer CareAnion Otn547 - 18 mmol/L 06/21/2019 8:37 AM [facility] Cancer CareCalcium8.98.5 - 10.2 mg/dL06/21/2019 8:37 AM [facility] Cancer CareeGFR- >6005 8:37 AM [facility] Cancer CareeGFR-All Other Races58.06/21/2019 8:37 AM [facility] Cancer CareComment: eGFR (Estimated GFR) Units of measure: mL/min/1.73 [...] eGFR may not accurately reflect actual GFR. Specimen (Source)Anatomical Location / LateralityCollection Method / Volume Collection TimeReceived TimeBlood specimen (specimen)BLOOD SPECIMEN / Unknown 06/21/2019 7:55 AM EDT06/21/2019 7:57 AM EDT Narrative Authorizing ProviderResult TypeResult StatusAmr Linda Kelley MDLABORATORYFinal ResultPerforming OrganizationAddressCity/State/ZIP CodePhone Number [facility] [address] [place] [address] [facility] [address] [place], [place] from Last 3 Months or Most Recently Relevant to Health Maintenance Insurance Advance Directives TypeDate RecordedPatient RepresentativeExplanationAdvance Directive(s)12/17/2018 1:30 PM Care Teams Team MemberRelationshipSpecialtyStart DateEnd Date Stalin Singer MD PCP - GeneralFamily Yliwkqle80/17/19
[2024-12-21 07:20] LABS: Alanine Aminotransferase 32 U/L (16-63); Albumin Globulin Ratio 1.1; Albumin Level 3.7 g/dL (3.4-5.0); Alkaline Phosphatase 56 U/L (46-116); Anion Gap 14.7; Aspartate Amino Transferase 22 U/L (15-37); Blood Urea Nitrogen 26.0 mg/dL (7.0-18.0); Calcium 8.9 mg/dL (8.5-10.1); Carbon Dioxide 25.8 mmol/L (21.0-32.0); Chloride 107 mmol/L (98-107); Estimated GFR (African America 55 (>=60 mL/min/1.73m^2); Estimated GFR (Non-African Ame 45 (>=60 mL/min/1.73m^2); Globulin 3.3 g/dL; Glucose 164 mg/dL (74-106); Potassium 4.5 mmol/L (3.5-5.1); Sodium 143 mmol/L (136-145); Total Protein 7.0 g/dL (6.4-8.2)
== END 2024-12-21 06:11 | disposition home or self-care (01) ==
LOC: LAB 06:11
PROVIDERS: PCP Family Medicine; Visit Provider Family Medicine
DX: E11.9 Type 2 diabetes mellitus without complications (principal); I10 Essential (primary) hypertension
CPT/HCPCS: 36415; 80053; 83036

== ENCOUNTER 2025-01-27 15:18 | Outpatient (OUT) | payer OTHER, SELFPAY ==
--- OUTSIDE RECORDS SUMMARY | 2023-09-24 10:30 | XMS_ITS ---
Author Organization [facility] in [place] Address [address] [place] [address] Care Team Providers Care Import Export Coordinator Name Role Phone Kev Singer Primary Care Provider REASON FOR VISIT 3mon f/u bhs Encounters Encounter Location Date Provider Diagnosis [address] [address] 09/24/2023 Kev Singer Plan Of Treatment No Information Progress Notes * Clarence CHASEDOB:1960 ([age] yo M)Acc No.[id number]:09/24/2023 UNLOCKED PROGRESS NOTE Progress Note Patient: Clarence LAWSON :?Stalin QUINTERO), MDDOB:1960???Age: 62 Y???Sex:MaleDate:4Phone:[phone]:[address] [id number] Subjective: * Chief Complaints: * 1 . 3mon f/u bhs. * Medical History: Objective: * Vitals: Assessment: Plan: * Treatment: * * Electronic signature of Kev Singer MD, [id number] on 01/27/2025 at 03:22 PM EST Sign off status: PendingVisit Status:?CANC (Cancelled) * Provider: Mariela Singer MD (TTC) Date: 0 09/24/2023 Generated for Printing/Faxing/eTransmitting on:?01/27/2025 03:22 PM EST
--- OUTSIDE RECORDS SUMMARY | 2025-01-21 15:30 | XMS_ITS | Encounter Summary ---
Author Organization [facility] Address [address] [facility] [place] [address] Care Team Providers Care Gasoline Pump Installer Name Role Phone Stalin Singer MD Primary Care Provider [phone] Rachel Mckeon UTILITY FORESTER Unavailable [phone] Leon Maria DO Unavailable [phone] Reason for Visit * ReasonCommentsSinusitisCough Encounter Details DateTypeDepartmentCare Team (Latest Contact Info)Sskjfdzjull61/12/2025 3:30 PM ESTOffice Visit [facility] [address] [place] [address] Leon Maria DO [address] [place] [address] Chronic anticoagulation (Primary Dx); Sinusitis, unspecified chronicity, unspecified location; Chronic cough Social History Tobacco UseTypesPacks/DayYears UsedDateSmoking Tobacco: NeverSmokeless Tobacco: Never Tobacco Cessation:Counseling Given: Not Answered Alcohol UseStandard Drinks/WeekCommentsNever0 (1 standard drink = 0.6 oz pure alcohol)Sex and Gender InformationValueDate RecordedSex Assigned at BirthNot on fileLegal AoaPpbw9811/04/2023 2:00 PM EDTGender IdentityNot on fileSexual OrientationNot on filedocumented as of this encounter Last Filed Vital Signs Vital SignReadingTime TakenCommentsBlood Pressure--Pulse--Temperature-- Respiratory Rate--Oxygen Saturation--Inhaled Oxygen Concentration--Symfay47.5 kg (215 lb)01/21/2025 3:34 PM XSVCtahbk468.6 cm (5' 6 )01/21/2025 3:34 PM ESTBody Mass Index34.7103/24/2024 3:34 PM ESTdocumented in this encounter Progress Notes * Leon Martel Candace, DO - 01/21/2025 3:30 PM EST Subjective Patient ID: Clarence Flores is a 64 y.o. male who presents for Sinusitis and Cough Sinusitis Associated symptoms include coughing. Cough This patient presents for recheck. He is status post bilateral functional endoscopic sinus surgery for extensive nasal and sinus infection and polyps. Has been having significant difficulties with nasal congestion and frequent coughing episodes. Very brief improvement with a course of Decadron Review of Systems Respiratory: Positive for cough. Objective ENT Physical Exam Patient denies any fever. Has not noticed any significant cleardrainage from his nose. Does describe significant congestion, greater on the left. Continues to have episodic difficulties with severe coughing episodes especially at work. No history of reactive airway disease. The rest of his review of systems is unchanged Allergies as of 01/21/2025 - Reviewed 01/21/2025 Allergen Reaction Noted Nitroglycerin 11/26/2018 Medical History[1] [...] Mucosa is very pale with clear drainage. Dry mucosa is noted Oral cavity: Mucosa moist, no evidence of [...] normal affect, no evidence of distress Assessment/Plan Chronic rhinosinusitis: We will start this patient on Nucala and look for interval improvement. Chronic cough: Likely chronic inflammatory bronchitis with reactivity, we will see how response to biologic treatment Chronic anticoagulation: Patient will continue taking Eliquis, follow up with family physician and subspecialist [1] Past Medical History: Diagnosis Date Asymptomatic hypertension Atrial fibrillation (HCC) BMI 34.0-34.9,adult 10/31/2023 BMI 40.0-44.9, adult ([facility]) 01/23/2023 Chest pain 01/21/2025 Diabetes mellitus type II, non insulin dependent (HCC) 04/09/2021 Diabetes type 2, controlled ([facility]) Elevated PSA 05/22/2023 Essential hypertension 11/24/2021 Hyperplastic rectal polyp 01/29/2024 Hypertensive left ventricular hypertrophy, without heart failure 01/22/2023 Hypertensive urgency 01/21/2025 Hypotension due to drugs 10/27/2024 Kidney disease Left renal mass 01/17/2023 Never smoked tobacco 10/31/2023 Obstructive sleep apnea 01/22/2023 Paroxysmal atrial fibrillation (HCC) 10/31/2023 Positive fecal occult blood test 01/29/2024 Renal cancer (HCC) 01/21/2025 Sigmoid diverticulosis 01/29/2024 [2] Current Outpatient Medications: amLODIPine (Norvasc) 5 MG tablet, , Disp: , Rfl: dexAMETHasone (Decadron) 4 MG tablet, Take 2 tablets for 5 days, Disp: 10 tablet, Rfl: 0 doxazosin (Cardura) 4 MG tablet, Take 4 mg by mouth at bedtime, Disp: , Rfl: empagliflozin (Jardiance) 10 MG, Take 1 tablet by mouth Daily, Disp: , Rfl: fluconazole (Diflucan) 150 MG tablet, Take one tablet PO now, then repeat dose in 72 hours, Disp: ,Rfl: metFORMIN (Glucophage) 500 MG tablet, Take 500 mg by mouth in the morning and 500 mg in the evening. Take with meals., Disp: , Rfl: metoprolol succinate XL (Toprol-XL) 25 MG 24 hr tablet, , Disp: , Rfl: metoprolol succinate XL (Toprol-XL) 50 MG 24 hr tablet, , Disp: , [...] 5 mg in the evening., Disp: ,Rfl: azelastine (Astelin) 0.1 % nasal spray, Administer 2 sprays into each nostril in the morning and 2 sprays before bedtime. Use in each nostril as directed., Disp: 90 mL, Rfl: 3 dilTIAZem CD (Cardizem CD) 120 MG 24 hr capsule, Take 120 mg by mouth, Disp: , Rfl: Wtluhehiqpi-Umvtixcef-Lfsyhc (Trelegy Ellipta) 100-62.5-25 MCG/ACT aerosol powder , Inhale 1 puff Daily, Disp: 3 each, Rfl: 3 ipratropium (Atrovent) 0.06 % nasal spray, Administer 2 sprays into each nostril in the morning and2 sprays in the evening and 2 sprays before bedtime., Disp: 15 mL, Rfl: 11 mepolizumab (Nucala) 100 mg/mL solution auto-injector, Inject 1 Syringe (100 mg) under the skin 1 (one) time, Disp: 1 each, Rfl: 0 spironolactone (Aldactone) 25 MG tablet, Take 25 mg by mouth in the morning., Disp: , Rfl: [3] Past Surgical History: Procedure Laterality Date NASAL SINUS SURGERY Bilateral 08/12/2024 Bilateral FESS / Septoplasty / Turbs PARTIAL NEPHRECTOMY documented in this encounter Plan of Treatment DateTypeDepartmentCare Team (Latest Contact Info)Htakcqxjhem19/02/2026 3:45 PM ESTOffice Visit [facility] [address] [place] [address] Leon Maria DO [address] [place] [address] documented as of this encounter Visit Diagnoses Diagnosis Chronic anticoagulation- Primary Encounter for long-term (current) use of 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 Sinusitis, unspecified chronicity, unspecified location Chronic cough Cough documented in this encounter Care Teams Team MemberRelationshipSpecialtyStart DateEnd Date Stalin Singer MD [address] [place] [address] PCP - GeneralFamily Kerkrokz03/20/24 Rachel Mckeon NP Nurse PractitionerNeurolog02/13/24 Leon Maria DO [address] [place] [address] Otolaryngolog02/13/24documented as of this encounter
--- OUTSIDE RECORDS SUMMARY | 2025-01-27 15:22 | XMS_ITS | Encounter Summary ---
Author Organization [facility] Address [address] [facility] [place] [address] Care Team Providers Care Draw Machine Operator Name Role Phone Stalin Singer MD Primary Care Provider [phone] Rachel Mckeon RANGE ECOLOGIST Unavailable [phone] Leon Maria DO Unavailable [phone] Encounter Details DateTypeDepartmentCare Team (Latest Contact Info)Bxxlynlkpxe67/12/2025Bamboo flowsheet [facility] [address] [place] [phone] Leon Maria DO [address] [place] [address] Social History Tobacco UseTypesPacks/DayYears UsedDateSmoking Tobacco: NeverSmokeless Tobacco: NeverAlcohol UseStandard Drinks/WeekCommentsNever0 (1 standard drink = 0.6 oz pure alcohol)Sex and Gender InformationValueDate RecordedSex Assigned at Not on fileLegal UloYoyz1511/04/2023 2:00 PM EDTGender IdentityNot on fileSexual OrientationNot on filedocumented as of this encounter Plan of Treatment DateTypeDepartmentCare Team (Latest Contact Info)Wkignqdgpks57/02/2026 3:45 PM ESTOffice Visit [facility] [address] [place] [phone] Leon Maria DO [address] [place] [address] documented as of this encounter Visit Diagnoses Not on filedocumented in this encounter Care Teams Team MemberRelationshipSpecialtyStart DateEnd Date Stalin Singer MD [address] [place] [address] PCP - GeneralFamily Rpfxolzm42/20/24 Rachel Mckeon NP Nurse PractitionerNeurolog02/13/24 Leon Maria DO [address] [place] [address] Otolaryngology1documented as of this encounter
--- OUTSIDE RECORDS SUMMARY | 2025-01-27 15:22 | XMS_ITS | Encounter Summary ---
Author Organization [facility] Address [address] [facility] [place] [address] Care Team Providers Care Report Clerk Name Role Phone Stalin Singer MD Primary Care Provider [phone] ADVISOR Unavailable [phone] Leon Maria DO Unavailable Encounter Details DateTypeDepartmentCare Team (Latest Contact Info)Yivvyqfaata32/12/2025Travel Social History Tobacco UseTypesPacks/DayYears UsedDateSmoking Tobacco: NeverSmokeless Tobacco: NeverAlcohol UseStandard Drinks/WeekCommentsNever0 (1 standard drink = 0.6 oz pure alcohol)Sex and Gender InformationValueDate RecordedSex Assigned at Not on fileLegal BagDzad9011/04/2023 2:00 PM EDTGender IdentityNot on fileSexual OrientationNot on filedocumented as of this encounter Plan of Treatment DateTypeDepartmentCare Team (Latest Contact Info)Uyopqmkmmhy46/02/2026 3:45 PM ESTOffice Visit [facility] [address] [place] [phone] Leon Maria, DO [address] [place] [address] documented as of this encounter Visit Diagnoses Not on filedocumented in this encounter Care Teams Team MemberRelationshipSpecialtyStart DateEnd Date Stalin Singer MD [address] [place] [address] PCP - GeneralFamily Hosvardp43/20/24 Rachel Mckeon NP Nurse PractitionerNeurolog02/13/24 Leon Maria DO [address] [place] [address] Otolaryngology1documented as of this encounter
--- OUTSIDE RECORDS SUMMARY | 2025-01-27 15:22 | XMS_ITS | Encounter Summary ---
Author Organization [facility] Address [address] [place] [address] Phone Care Team Providers Care Concrete Batcher Name Role Phone Stalin Singer MD Primary Care Provider [phone] Reason for Referral * Consultation (Routine) - AuthorizedSpecialtyDiagnoses / ProceduresReferred By ContactReferred To ContactCardiology Diagnoses Paroxysmal atrial fibrillation (Multi) Andra Ramirez APRN-CNP [address] [facility] [address], [address] [place] [address] Phone: tel: fax: Em Aviles MD [address] [facility], [address] [place] [address] Phone: tel: fax: Referral IDStatusReasonStart DateExpiration DateVisits RequestedVisits [id number] Specialty Services Required * Cardiovascular (Routine) - Pending ReviewSpecialtyDiagnoses / Procedures Referred By ContactReferred To ContactCardiology Diagnoses Paroxysmal atrial fibrillation (Multi) Procedures Holter Or Event Tile Classifier VT XTRNL PT ACTIVATED ECG RECORD MONITOR 30 DAYS VT XTRNL PT ACTIVATED ECG REC DWNLD 30 DAYS Andra Ramirez APRN-CNP [address] [facility] [address], [address] [place] [address] Phone: tel: fax: Referral IDStatusReasonStart DateExpiration DateVisits RequestedVisits [id number] Reason for Visit * ReasonOnset DateCommentsAtrial Ycaaecbdxzfi25/04/2025 Encounter Details DateTypeDepartmentCare Team (Latest Contact Info)Vfpoxhxaqyo43/04/2025Telephone [facility] at [facility] [address] [facility] [address] [place] [phone] Marixa Nix LPN Atrial Fibrillation Social History Tobacco UseTypesPacks/DayYears UsedDateSmoking Tobacco: NeverSmokeless Tobacco: NeverAlcohol UseStandard Drinks/WeekCommentsYes2 (1 standard drink = 0.6 oz pure alcohol)Sex and Gender InformationValueDate RecordedSex Assigned at BirthH[facility] Hospitale 12/16/2022 10:12 AM ESTLegal RwvEzzw84/04/2023 9:26 AM EDTGender IdentityMale 12/16/2022 10:12 AM ESTSexual KxglcspdaixVyfahhvi22/06/2023 10:12 AM EST documented as of this encounter Miscellaneous Notes * Telephone Encounter - Maru Gutierrez MA - 01/21/2025 9:38 AM EST Sent to eo office * Addendum Note - Cynthia Rashid LPN - 01/20/2025 2:50 PM ESTAddended by: CYNTHIA RASHID on: 01/20/2025 02:50 PM Modules accepted: Orders * Telephone Encounter - Cynthia Rashid LPN - 01/20/2025 2:49 PM EST Fax lab order when signed * Telephone Encounter - Cynthia Rashid LPN - 01/20/2025 2:47 PM EST Patient contacted. Verbalized understanding. Rx to pharm. Lab order will need faxed to [facility] when signed. To sec in [place] for sooner visit. Referral to Dr. Stefan vásquez. To [facility] for 14 day monitor To Andra and Task sent to litigation legal secretary to call and arrange once order signed. * Telephone Encounter - Marixa Nix LPN - 01/13/2025 4:58 PM EST Patient phoned states he has had several episodes of Afib within the last week that have lasted from 12-6hrs each time. Did take the Diltiazem, he noted it took longer for it to work this time than what it has in the past. Has been having palps, SOB. Inquiring if further medication changes are needed or sooner OV to address. Please advise. To Dr. Mike Morelos DO for review. documented in this encounter Plan of Treatment DateTypeDepartmentCare Team (Latest Contact Info)Yefxxpvjyau90/12/2026 3:00 PM ESTAncillary Procedure at [facility] [address] [place] [phone] 03/14/2025 3:30 PM ESTOffice Visit at [facility] [address] [facility] [address] [place] [phone] Andra Ramirez, CITY CARRIER-CENSUS ENUMERATOR [address] [facility] [address], [address] [place] [address] 04/27/2025 10:30 AM EDTOffice Visit [facility] at [facility] [address] [facility] [address] [place] [phone] Em Aviles MD [address] [facility] Office Bldg, [facility] [address] [place] [address] NameTypePriorityAssociated DiagnosesOrder ScheduleBasic Metabolic PanelLab Routine Paroxysmal atrial fibrillation (Multi) Expected: 01/20/2025 (Approximate), Expires: 01/20/2026Thyroid Stimulating HormoneLabRoutine Paroxysmal atrial fibrillation (Multi) Expected: 01/20/2025 (Approximate), Expires: 01/20/2026Holter Or Event Cardiac MonitorCardiac ServicesRoutine Paroxysmal atrial fibrillation (Multi) Expected: 01/20/2025 (Approximate), Expires: 01/20/2027NameTypePriority Associated DiagnosesOrder ScheduleReferral to [facility] Outpatient ReferralNon-Urgent Paroxysmal atrial fibrillation (Multi) Expected: 01/20/2025 (Approximate), Expires: 01/20/2026documented as of this encounter Visit Diagnoses Diagnosis Paroxysmal atrial fibrillation (Multi) Atrial fibrillation documented in this encounter Care Teams Team MemberRelationshipSpecialtyStart DateEnd Date Stalin Singer MD [address] [facility] [place] [address] PCP - GeneralFamily Wdedykyu87/4/23documented as of this encounter
--- OUTSIDE RECORDS SUMMARY | 2025-01-27 15:22 | XMS_ITS ---
Author Organization [facility] Address [address] [place] [address] Care Team Providers Care Caustic Pump Operator Name Role Phone Stalin Singer MD Primary Care Provider [phone] Mckeon AUTOMATIC TOE LASTER Unavailable [phone] Leon Maria DO Unavailable [phone] Active Problems ProblemNoted DateDiagnosed ZcpcQpqdmybnccvr37/28/2025 Current Treatment and Therapy Plans No current plan information found. Past Treatment and Therapy Plans No past plan information found. Lifetime Dose Tracking * ChemicalLifetime DoseAutomatic EntryManual WsdhcUywygomms71 mSv40 mSv0 mSv Resolved Problems ProblemNoted DateDiagnosed DateResolved DateChest pain Hypertensive eucxphj61Renal ackcyh27 Hypotension due to drugsHyperplastic rectal polyp01/29/2024 01/29/2024ositive fecal occult blood testSigmoid ueerxqsfraexko11MI 34.0-34.9,adultNever smoked qebiqxi31aroxysmal atrial uyyhhyoxymxp27/20/2024 01/29/2024Elevated PSAMI 40.0-44.9, adult01/23/2023 01/29/2024Hypertensive left ventricular hypertrophy, without heart failure Obstructive sleep apneaLeft renal mass Essential lgtugxeqebbt37iabetes mellitus type II, non insulin kfbfoczfz70
--- OUTSIDE RECORDS SUMMARY | 2025-01-27 15:22 | XMS_ITS | Encounter Summary ---
Author Organization [facility] Address [address] [place] [address] Phone Care Team Providers Care Car Supervisor Name Role Phone Stalin Singer MD Primary Care Provider [phone] Encounter Details DateTypeDepartmentCare Team (Latest Contact Info)Ifkddvhosav21/12/2025Telephone [facility] at [facility] [address] [phone] Maru Gutierrez MA Social History Tobacco UseTypesPacks/DayYears UsedDateSmoking Tobacco: NeverSmokeless Tobacco: NeverAlcohol UseStandard Drinks/WeekCommentsYes2 (1 standard drink = 0.6 oz pure alcohol)Sex and Gender InformationValueDate RecordedSex Assigned at BirthMale 12/16/2022 10:12 AM ESTLegal LpuCdqw45/04/2023 9:26 AM EDTGender IdentityMale 12/16/2022 10:12 AM ESTSexual PmtvuwwmvndGhnccmjc70/06/2023 10:12 AM EST documented as of this encounter Miscellaneous Notes * Telephone Encounter - Naida Crandall - 01/21/2025 11:56 AM EST Spoke to patient and scheduled appointment for first available with * Telephone Encounter - Maru Gutierrez MA - 01/21/2025 9:37 AM EST Pt is being referred to Dr Aviles. Please contact pt to schedule documented in this encounter Plan of Treatment DateTypeDepartmentCare Team (Latest Contact Info)Pnyufnhgfne09/12/2026 3:00 PM ESTAncillary Procedure at [facility] [address] [facility] [address] [place] [address] 03/14/2025 3:30 PM ESTOffice Visit at [facility] [address] [facility] [address] [place] [address] Andra Ramirez, STOREROOM ATTENDANT-OUTSOLE SKIVER [address] [facility], [facility] [address] [place] [address] 04/27/2025 10:30 AM EDTOffice Visit at [facility] [address] [facility] [address] [place] [phone] Em Aviles MD [address] [facility], [facility] [address] [place], [place] [phone] documented as of this encounter Visit Diagnoses Not on filedocumented in this encounter Care Teams Team MemberRelationshipSpecialtyStart DateEnd Date Stalin Singer MD [address] [facility] [place] [address] PCP - GeneralFamily Iyhstgmj54/4/23documented as of this encounter
--- OUTSIDE RECORDS SUMMARY | 2025-01-27 15:23 | XMS_ITS | Clinical Summary ---
Author Organization [facility] Address [address] [place], [place] [phone] Care Team Providers Care Cavalry Scout Name Role Phone Stalin Singer MD Primary Care Provider [phone] Allergies Active AllergyReactionsCriticalityNoted DateCommentsNitroglycerinOther: See Riehnhxr20/17/2019 Medications MedicationSigDispense QuantityRefillsLast FilledStart DateEnd DateStatus hydrALAZINE [...] Each 06/21/2019Active Active Problems ProblemNoted DateDiagnosed DateRenal ziepsvmc53/12/2019Left renal mass Social History Tobacco UseTypesPacks/DayYears UsedDateSmoking Tobacco: NeverSmokeless Tobacco: NeverPHQ-2AnswerDate RecordedPHQ2 Cyzrt84902/21/2018Area Deprivation IndexAnswer Date RecordedNational Score (1-100), lower number is lower riskNot on file 01/18/2020State Score (1-10), lower number is lower riskNot on file01/18/2020 Data from: https://www.neighborhoodatlas.medicine.[facility].edu/. Last address used for calculationNot on file01/18/2020Sex and Gender InformationValueDate Recorded Sex Assigned at BirthNot on fileLegal DjlJmzw38/10/2019 11:01 AM EDTGender IdentityNot on fileSexual OrientationNot on file Last Filed Vital Signs Vital SignReadingTime TakenCommentsBlood Apdcznei575/8102/05/2019 10:26 AM EST Vbghp571202/05/2019 10:26 AM DBEQjevqygjzis39.1 ??C (98.8 ??F)12/25/2018 7:39 AM ESTRespiratory Osah766302/24/2018 7:39 AM ESTOxygen Wnpgfseobb01%12/25/2018 7:39 AM ESTInhaled Oxygen Concentration--Xstxki691.5 kg (265 lb 9.6 oz)02/05/2019 10:26 AM SSSNdxofs013.6 cm (5' 6 )02/05/2019 10:26 AM ESTBody Mass Index42.87 02/05/2019 10:26 AM EST Plan of Treatment Health MaintenanceDue DateLast DoneCommentsAnxiety Xgrsjjody38/01/1981Depression Hmufmwnci55/01/1981HIV Ftiazuuzo01/01/1981Hepatitis C Oubdaanhk04/01/1981 DTaP,Tdap,Td Vaccine (1 - Tdap)1981Lipid Heqaguexq36/01/1998CT Mkxxbmzvzneg88/01/2008Cologuard (FIT-DNA)11/11/20074456Vmqgwskkibv68/01/2008 Colorectal Cancer Gsqwaqbtl06/01/2008Fecal Occult Blood11/11/2007Prostate Cancer Screening Pukvwocros84/01/8607Kkbpidelwvbvh09/01/2008Pneumococcal Vaccine: 50+ (1 of 1 - PCV)2012Shingrix Vaccine (1 of 2)2012Diabetes Screening , 12/25/2018, 12/24/2018, Additional history existsCovid-19 Vaccine (1 - 2024- season)2024Influenza Vaccine (#1)2024RSV Vaccine (1 - 1-dose 75+ series)2037 Procedures Procedure NamePriorityDate/TimeAssociated DiagnosisCommentsBASIC METABOLIC PANEL Spsxxwq2106/21/2019 7:55 AM EDT Renal cell carcinoma of left kidney (HCC) from Last 3 Months or Most Recently Relevant to Health Maintenance Results * (ABNORMAL) BASIC METABOLIC PNL (06/21/2019 7:55 AM EDT)ComponentValueRef Range Test MethodAnalysis TimePerformed AtPathologist QrlerbbcuEwgsbkq682(H)74 - 99 mg/dL06/21/2019 8:37 AM EDTCSumma Health [facility]ron Campus Cancer CareComment: The [place] Diabetes Association (ADA) provides guidance [...] 2016, [employer] Diabetes Association. Diabetes Care. 2016.39(Suppl 1). DLR664 - 24 mg/dL06/21/2019 8:37 AM [facility] Creatinine1.28(H)0.73 - 1.22 mg/dL06/21/2019 8:37 AM [facility] Cancer ShtyQsflbh346290 - 144 mmol/L06/21/2019 8:37 AM [facility] Cancer CarePotassium4.53.7 - 5.1 mmol/L06/21/2019 8:37 AM EDT [facility] Cancer EjjgFupahyat718(H)97 - 105 mmol/L06/21/2019 8:37 AM [facility] Cancer CnihRB01102 - 30 mmol/L06/21/2019 8:37 AM [facility] Cancer CareAnion Vox283 - 18 mmol/L 06/21/2019 8:37 AM [facility] Cancer CareCalcium8.98.5 - 10.2 mg/dL06/21/2019 8:37 AM [facility] Cancer CareeGFR- >6005 8:37 AM [facility] Cancer CareeGFR-All Other Races58.06/21/2019 8:37 AM [facility] Cancer CareComment: eGFR (Estimated GFR) Units [...] Linda Kelley MDLABORATORYFinal ResultPerforming OrganizationAddressCity/State/ZIP CodePhone Number [facility] [place] [address] [place] [address] [facility] [address] [place], [place] from Last 3 Months or Most Recently Relevant to Health Maintenance Insurance Advance Directives TypeDate RecordedPatient RepresentativeExplanationAdvance Directive(s)12/17/2018 1:30 PM Care Teams Team MemberRelationshipSpecialtyStart DateEnd Date Stalin Singer MD PCP - GeneralFamily Wqgmdxqs80/17/19
--- OUTSIDE RECORDS SUMMARY | 2025-01-27 15:23 | XMS_ITS | Clinical Summary ---
Author Organization [facility] Address [address] [place] [address] Phone Care Team Providers Care Participant Administrator Name Role Phone Stalin Singer MD Primary Care Provider [phone] Allergies No known active allergies Medications MedicationSigDispense [...] into each nostril 2 times a day. FYGWLMWI48/03/2025Active apixaban (Eliquis) 5 mg tablet Indications:Paroxysmal atrial fibrillation (Multi)Take 1 tablet (5 mg) by mouth 2 times a day. 180 tablet 6Active amLODIPine (Norvasc) 5 mg tablet Indications:Hypertensive left ventricular hypertrophy, without heart failureTake 1 tablet (5 mg) by mouth once daily. 90 tablet 503/ctive tamsulosin (Flomax) 0.4 mg 24 hr capsule Take 1 capsule (0.4 mg) by mouth once daily. Do not crush, chew, or split.Active valsartan (Diovan) 160 mg tablet Indications:Hypotension due to drugsTake 1 tablet (160 mg) by mouth once daily. 90 tablet 3095010/27/2025ctive metoprolol succinate XL (Toprol-XL) 50 mg 24 hr tablet Indications:Paroxysmal atrial fibrillation (Multi)Take 1 tablet (50 mg) by mouth once daily. Do not crush or chew. 90 tablet ctive metoprolol succinate XL (Toprol-XL) 25 mg 24 hr tablet Indications:Hypertensive left ventricular hypertrophy, without heart failureTake 1.5 tablets daily (37.5mg) daily 135 tablet Discontinued(Dose adjustment) Active Problems ProblemNoted DateDiagnosed DateHypotension due to drugs10/27/2024MI 36.0-36.9,adult10/31/2023Never smoked qucdenc8810/31/2023aroxysmal atrial /20/2024Essential dhjnmusechkl87/13/2023 Assessment & Plan (03/26/2023 12:32 PM EST): Remains borderline in office today Will add spironolactone Assessment & Plan (01/23/2023 11:59 AM EST): He has been compliant with addition of doxazosin and valsartan since discharge. Reports PCP stopped hydrochlorothiazide. Remains elevated in office today Obstructive sleep apnea01/22/2023 Assessment & Plan (01/23/2023 12:00 PM EST): Remains compliant with CPAP Diabetes mellitus type II, non insulin ztifzkzkw89/13/2023 Assessment & Plan (01/23/2023 12:00 PM EST): On ARB No statin Unknown hemoglobin A1c Hypertensive left ventricular hypertrophy, without heart rmzfxqw4701/22/2023 Assessment & Plan (01/23/2023 11:59 AM EST): November 2022 TTE LVEF greater than 70% LVH moderate MR trace Left renal mass01/17/2023Renal efodwiuw95/12/2019 Resolved Problems ProblemNoted DateDiagnosed DateResolved DateBMI 40.0-44.9, adult01/23/2023 05/06/2024 Assessment & Plan (03/26/2023 12:33 PM EST): Remains on ozempic Continue with lifestyle changes and weight loss Assessment & Plan (01/23/2023 12:01 PM EST): Recently started treatment with Ozempic Weight is down 10 pounds Reviewed the merits of healthy lifestyle choices on overall cardiovascular health. Encounters DateTypeDepartmentCare MyevAxrmrjcipea81/12/2025Telephone at [facility] [address] [place] [phone] Maru Gutierrez MA 01/13/2025Telephone at [facility] [address] [place] [phone] Marixa Nix LPN Atrial Ctoqbcznrqrc12/03/2025Telephone at [facility] [address] [place] [phone] Swati Chun LPN from Last 3 Months Family History Medical HistoryRelationNameCommentsNo Known ProblemsFatherOvarian cancerMother heart problemPaternal GrandfatherHeart attackSisterRelationNameStatusComments FatherMotherPaternal GrandfatherSister Social History Tobacco UseTypesPacks/DayYears UsedDateSmoking Tobacco: NeverSmokeless Tobacco: Never Tobacco Cessation:Counseling Given: Yes Alcohol UseStandard Drinks/WeekCommentsYes2 (1 standard drink = 0.6 oz pure alcohol)Sex and Gender InformationValueDate RecordedSex Assigned at BirthMale 12/16/2022 10:12 AM ESTLegal ZbbQqom81/04/2023 9:26 AM EDTGender IdentityMale 12/16/2022 10:12 AM ESTSexual NewupwzxdyqSytsuavk11/06/2023 10:12 AM EST Last Filed Vital Signs Vital SignReadingTime TakenCommentsBlood Hqhljgns474/6409 3:47 PM EDT Iywwj1788 3:47 PM EDTTemperature--Respiratory Rate--Oxygen Saturation-- Inhaled Oxygen Concentration--Ksvgre410 kg (241 lb 9.6 oz)10/27/2024 3:47 PM EDT Irkncj912.6 cm (5' 6 )10/27/2024 3:47 PM EDTBody Mass Tgphz990510/27/2024 3:47 PM EDT Plan of Treatment DateTypeDepartmentCare Team (Latest Contact Info)Pytegpzyioo80/12/2026 3:00 PM ESTAncillary Procedure at [facility] [address] [place] [phone] 03/14/2025 3:30 PM ESTOffice Visit at [facility] [place] [facility] [address] [place] [phone] Andra Ramirez, DETASSELER-HISTOPATHOLOGIST [address] [place] [address], [address] [address] 04/27/2025 10:30 AM EDTOffice Visit at [facility] [address] [phone] Em Aviles MD [address] [facility], [facility] [address] [place] [address] Health MaintenanceDue DateLast DoneCommentsCT Aizjztdexggk22/01/1963Diabetes: Hemoglobin A1C1962Diabetes: Urine Protein Qbicjdgoi56/01/1963FIT-DNA (Cologuard)1962FIT1962HIV Qxqxdhigr66/01/1963Lipid Panel1962 Ctymnaenlgegi51/01/1963Yearly Adult Hfkgunto02/01/1963MMR Vaccines (1 of 1 - Standard series)11/11/1963Diabetes: Retinopathy Goripacyx80/01/1973Hepatitis C Aiegrtgpz65/01/1981Pneumococcal Vaccine (1 of 2 - PCV)1981DTaP/Tdap/Td Vaccines (1 - Tdap)1984PSA Prostate Cancer Cfmexmgvt61/01/2013RSV High Risk: (Elderly (60+) or Population) (1 - Risk 50-74 years 1-dose series)2012Zoster Vaccines (1 of 2)2012COVID-19 Vaccine (1 - season)2024Influenza Vaccine (#1)10/11/20248413Wybabrctgry95 Colorectal Cancer Mcidjqxkv34/07/2034HIB VaccinesAged OutNo longer eligible based on patient's age to complete this topicHPV VaccinesAged OutNo longer eligible based on patient's age to complete this topicHepatitis A VaccinesAged OutNo longer eligible based on patient's age to complete this topicHepatitis B VaccinesAged OutNo longer eligible based on patient's age to complete this topic IPV VaccinesAged OutNo longer eligible based on patient's age to complete this topicMeningococcal VaccineAged OutNo longer eligible based on patient's age to complete this topicRotavirus VaccinesAged OutNo longer eligible based on patient's age to complete this topic Insurance Care Teams Team MemberRelationshipSpecialtyStart DateEnd Stalin Singer MD [address] [facility] [place] [address] PCP - GeneralFamily Uxztclkg47/4/23
--- OUTSIDE RECORDS SUMMARY | 2025-01-27 15:23 | XMS_ITS | Clinical Summary ---
Author Organization [facility] Address [address], [address] [place] [address] Care Team Providers Care Insurance Follow Up Rep Name Role Phone Stalin Singer MD Primary Care Provider [phone] Allergies Active AllergyReactionsCriticalityNoted DateCommentsNitroglycerinOther (See Comments)11/26/2018 Patient [...] 5Active Additional Information Patient not taking.Reported on 01/12/2025 dilTIAZem (CARDIZEM CD) 120 MG extended release capsule 5Active tamsulosin (FLOMAX) 0.4 MG capsule Indications:BPH with obstruction/lower urinary tract symptomsTake 1 capsule by mouth in the morning and at bedtime 30 capsule 5Active tamsulosin (FLOMAX) 0.4 MG capsule Indications:BPH with obstruction/lower urinary tract symptomsTake 1 capsule by mouth in the morning and at bedtime 60 capsule /04/2024Discontinued fluconazole (DIFLUCAN) 100 MG tablet Take 1 tablet by mouth daily for 7 days 7 tablet Expired clotrimazole (LOTRIMIN) 1 % cream Apply topically 2 times daily for 14 days 60 g Expired Active Problems ProblemNoted DateDiagnosed DateElevated PSA05/22/2023 Encounters DateTypeDepartmentCare KlmxYljhavquqsk96/03/2025 3:45 PM ESTOffice Visit [facility] Part [address] [place] [phone] Moises Overton PA-C BPH with obstruction/lower urinary tract symptoms (Primary Dx); History of partial nephrectomy; Renal cancer, left (HCC); Elevated PSA; Yeast dermatitis of penis11/15/2024 4:15 PM EDTOffice Visit [facility] [address] [place] [address] Moises Overton PA-C BPH with obstruction/lower urinary tract symptoms (Primary Dx); History of partial nephrectomy; Renal cancer, left (HCC); Elevated PSAfrom Last 3 Months Family History Medical HistoryRelationNameCommentsAlcohol AbuseFatherHeart DiseaseFatherOvarian CancerMotherHeart DiseaseSisterRelationNameStatusCommentsFatherDeceasedMother DeceasedSisterAlive Social History Tobacco UseTypesPacks/DayYears UsedDateSmoking Tobacco: NeverPassive Smoke Exposure: PastSmokeless Tobacco: Never Tobacco Cessation:Counseling Given: No Alcohol UseStandard Drinks/WeekCommentsYes1 (1 standard drink = 0.6 oz pure alcohol)Sex and Gender InformationValueDate RecordedSex Assigned at BirthMale 11/08/2024 3:38 PM EDTLegal GrwWwnt9305/08/2023 1:22 PM EDTGender IdentityMale 05/22/2023 3:10 PM EDTSexual OrientationNot on file Last Filed Vital Signs Vital SignReadingTime TakenCommentsBlood Oqllpwjv159/7601/12/2025 3:49 PM EST Gyuah426809/27/2024 4:00 PM LSFGnomhmlyzql02.9 ??C (98.4 ??F)01/12/2025 3:49 PM ESTRespiratory Rate--Oxygen Saturation--Inhaled Oxygen Concentration--Weight 115.2 kg (254 lb)01/12/2025 3:49 PM TXBEreggo070.6 cm (5' 6 )08/28/2023 2:37 PM EDTBody Mass Jrasg367008/28/2023 2:37 PM EDT Plan of Treatment DateTypeDepartmentCare Team (Latest Contact Info)Cmybrxzuvky73/12/2026 8:15 AM ESTProcedure visit [facility] Part of [address] [place] [address] Cristiano Hay MD [address] [place] [address] cystoHealth MaintenanceDue DateLast DoneCommentsDepression Qtblmv7611/10/1974HIV bprxrz2111/10/1977Hepatitis C oqkdxl7911/10/1980DTaP/Tdap/Td vaccine (1 - Tdap) 11/10/19818380Asctjb58/01/9452Csurazdkjtk20/01/2008Colorectal Cancer Screen 11/11/2007FIT/FOBT: Average risk11/11/2007Fecal-DNA (Cologuard): Average risk 11/11/2007Sigmoidoscopy/CT hgknnggumrrf31/01/2008Pneumococcal 50+ years Vaccine (1 of 1 - PCV)2012Shingles vaccine (1 of 2)2012Respiratory Syncytial Virus (RSV) or age 60 yrs+ (1 - Risk 60-74 years 1-dose series) 2022Flu vaccine (#1)5COVID-19 Vaccine (1 - 2023- season) 2024Prostate Specific Antigen (PSA) Screening or Rszftemskt44/22/2026 07/01/2024, 03/27/2024, 08/21/2023, Additional history existsHepatitis A [...] complete this topic Procedures Procedure NamePriorityDate/TimeAssociated DiagnosisCommentsMEAS,POST-VOID RES,US,NON-FSZZTIIJbdynfp98/03/2025 4:01 PM EST BPH with obstruction/lower urinary tract symptoms SILVINA,POST-VOID RES,US,NON-TYSIHIEKaifzvt99/06/2025 4:24 PM EDT BPH with obstruction/lower urinary tract symptoms PSA, KRQJNVNKOFZshzfxt11/22/2025 3:25 PM EDT Elevated PSA from Last 3 Months or Most Recently Relevant to Health Maintenance Results * (ABNORMAL) PSA, Diagnostic (07/01/2024 3:25 PM EDT)ComponentValueRef RangeTest MethodAnalysis TimePerformed AtPathologist SignaturePSA5.90(H)ng/mLSpecimen (Source)Anatomical Location / LateralityCollection Method / VolumeCollection TimeReceived TimeBLOOD SPECIMEN / Gkrwzyl6007/01/2024 3:25 PM EDT Narrative Authorizing ProviderResult TypeResult StatusThomas Bharti MDCHEMISTRY ORDERABLESFinal Result from Last 3 Months or Most Recently Relevant to Health Maintenance Insurance Care Teams Team MemberRelationshipSpecialtyStart Date Stalin Singer MD [address] [place] [address] PCP - GeneralFamily Medicine05/23/23
--- OUTSIDE RECORDS SUMMARY | 2025-01-27 15:23 | XMS_ITS | Clinical Summary ---
Author Organization [facility] Address [address] [place] [address] Care Team Providers Care Flare Worker Name Role Phone Stalin Singer MD Primary Care Provider [phone] Rachel Mckeon SENIOR GAME DESIGNER Unavailable [phone] Leon Maria DO Unavailable [phone] Allergies Active AllergyReactionsCriticalityNoted MvgcGmymibeuRtsgulpxmdero36/17/2019 Other Reaction(s): Hypotension, Other (See Comments), Other: [...] in the evening. Take with meals. Active Ozempic, 2 MG/DOSE, 8 MG/3ML solution [...] each nostril as directed. 90 mL ctive Cafijikelmx-Daqxzannz-Dqmvzo (Trelegy Ellipta) 100-62.5-25 MCG/ACT aerosol powder Indications:Cough variant asthma (HCC)Inhale 1 puff Daily 3 each ctive ipratropium (Atrovent) 0.06 % nasal spray Indications:Acute [...] with food for 5 days 5 tablet 08/10/2024tive fluconazole (Diflucan) 150 MG tablet Take one [...] 2 tablets for 5 days 10 tablet 5Active metoprolol succinate XL (Toprol-XL) 50 MG 24 hr tablet 12/11/2025Active mepolizumab (Nucala) 100 mg/mL solution auto-injector Indications:Sinusitis, unspecified chronicity, unspecified locationInject 1 Syringe (100 mg) under the skin 1 (one) time 1 each 5Active metoprolol succinate XL (Toprol-XL) 100 MG 24 hr tablet Take 150 mg by mouthDiscontinued Active Problems ProblemNoted DateDiagnosed BwqkJmjuaekvcwaq23/28/2025 Resolved Problems ProblemNoted DateDiagnosed DateResolved DateChest pain Hypertensive zefqygn72Renal weeydu61 Hypotension due to drugsHyperplastic rectal polyp01/29/2024 01/29/2024ositive fecal occult blood testSigmoid iejckcpuwaztqb15MI 34.0-34.9,adultNever smoked xxyitxg77aroxysmal atrial fvwfavnjwxhc44/20/2024 01/29/2024Elevated PSAMI 40.0-44.9, adult01/23/2023 01/29/2024Hypertensive left ventricular hypertrophy, without heart failure Obstructive sleep apneaLeft renal mass /Essential axstfpsxqwvd79iabetes mellitus type II, non insulin wpcancjno05 Encounters DateTypeDepartmentCare ShzdTldtqzxzejo05/12/2025 3:30 PM ESTOffice Visit [facility] [address] [place] [address] Leon Maria DO Chronic anticoagulation (Primary Dx); Sinusitis, unspecified chronicity, unspecified location; Chronic cough01/21/2025amboo flowsheet [facility] [address] [place] [address] Leon Maria, 01/21/20250623Byovjq70/17/2025 3:15 PM EDTOffice Visit [facility] [address] [place] [address] Leon Maria, Chronic cough (Primary Dx); Sinusitis, unspecified chronicity, unspecified location; Rhinitis medicamentosa; Chronic qziureavyvkield34/17/2025amboo flowsheet [facility] [address] [place] [address] Leon Maria, 11/26/2024Travelfrom Last 3 Months Family History Medical HistoryRelationNameCommentsAlcohol abuseMotherOvarian cancerMother RelationNameStatusCommentsMother Social History Tobacco UseTypesPacks/DayYears UsedDateSmoking Tobacco: NeverSmokeless Tobacco: Never Tobacco Cessation:Counseling Given: Not Answered Alcohol UseStandard Drinks/WeekCommentsNever0 (1 standard drink = 0.6 oz pure alcohol)Sex and Gender InformationValueDate RecordedSex Assigned at BirthNot on fileLegal CfuQlfm8911/04/2023 2:00 PM EDTGender IdentityNot on fileSexual OrientationNot on file Last Filed Vital Signs Vital SignReadingTime TakenCommentsBlood Vwqzyjhp892/7210 2:50 PM EDT Pqczt028111/12/2023 2:50 PM EDTTemperature--Respiratory Rate--Oxygen Kwzhskxvtu95% 11/12/2023 2:50 PM EDTInhaled Oxygen Concentration--Ekkvfv70.5 kg (215 lb) 01/21/2025 3:34 PM LCTKknuqg121.6 cm (5' 6 )01/21/2025 3:34 PM ESTBody Mass Index34.7103/24/2024 3:34 PM EST Plan of Treatment DateTypeDepartmentCare Team (Latest Contact Info)Bdlyqwjgfkn08/02/2026 3:45 PM ESTOffice Visit [facility] [address] [place] [address] Leon Maria DO [address] [place] [address] Insurance Care Teams Team MemberRelationshipSpecialtyStart DateEnd Stalin Singer MD [address] [place] [address] PCP - GeneralFamily Klsudufy12/20/24 Rachel Mckeon NP Nurse PractitionerNeurolog02/13/24 Leon Maria DO [address] [place] [place] [address] Otolaryngology1
--- OUTSIDE RECORDS SUMMARY | 2025-01-27 15:23 | XMS_ITS | Patient Health Record ---
Author Organization [facility] in [place] Address [address] [place] [address] Care Team Providers Care Melting Furnace Skimmer Name Role Phone Kev Singer Primary Care Provider [phone] Allergies No Known Allergies Results Component Value Reference Range Notes CBC AUTO DIFF Reviewed date:03/27/2024 02:19:00 PM Interpretation: Performing Lab: Notes/Report: [facility] , White Blood Count 12.2 4.0-11.0 10 3/uL Red Blood Count4.924.70-6.10 10 6/dGRtigjepdcn54.014.0-18.0 g/uNCvhfewjnoq92.2 42.0-54.0 %Mean Corpuscular Xgebee91.880.0-94.0 fLMean Corpuscular Hemoglobin 30.525.9-34.0 pgMean Corpuscular HGB Conc33.929.9-35.2 g/dLRed Cell Distribution Width13.211.0-15.0 %Platelet Hhvpy277764-027 10 3/uLMean Platelet Volume8.59.5- 13.5 fLNeutrophils Percent Auto73.543.0-75.0 %Lymphocytes Percent Auto13.320.5- 60.0 %Monocytes Percent Auto9.01.7-12.0 %Eosinophils Percent Auto2.80.9-7.0 % Basophils Percent Auto0.80.2-2.0 %Immature Granulocytes Pct Auto0.60.0-0.5 % Neutrophils Absolute Auto8.91.4-6.5 10 3/uLLymphocytes Absolute Auto1.61.2-3.8 10 3/uLMonocytes Absolute Auto1.10.3-0.8 10 3/uLEosinophils Absolute Auto0.30.0- 0.7 10 3/uLBasophils Absolute Auto0.10.0-0.1 10 3/uLImmature Granulocytes Abs Auto0.070.00-0.03 10 3/uLPerforming Lab:see noteML - [facility] LB FREE T3 Reviewed date:03/27/2024 02:19:00 PM Interpretation: Performing Lab: Notes/Report: [facility] ,Free T32.462.18-3.98 pg/mLPerforming Lab:see note - [facility] LB GLYCOHEMOGLOBIN A1C Reviewed date:03/27/2024 02:19:00 PM Interpretation: Performing Lab: Notes/Report: [facility] ,Glycohemoglobin A1C5.44.5-6.2 % ACTION SUGGESTED ADA RECOMMENDED LIMIT 4.0 - 6.0 > 7.0 ADA THERAPEUTIC TARGET < 7.0 Estimated Average Iteujbw443Cocwsuvazo Lab:see noteML - [facility] LB LIPID PROFILE Reviewed date:03/27/2024 02:19:00 PM Interpretation: Performing Lab: Notes/Report: [facility] ,Xohceiwxhvrnq06<=150 mg/iRPjwzkkrnhlw225<=200 mg/dLHDL Xmciljphmwi8549-23 mg/dL > or =60 mg/dl - LOW CARDIOVASCULAR RISK <40 mg/dl - HIGH CARDIOVASCULAR RISK LDL Cholesterol Kzlhpnqjye71.0 >190 mg/dl VERY HIGH 100-129 mg/dl NEAR OR ABOVE OPTIMAL 160-189 mg/dl HIGH <100 mg/dl OPTIMAL 130-159 mg/dl BORDERLINE HIGH VLDL NXBWEICFVJU54.8Chol HDL Ratio3.6 4.4 - 7.1 AVERAGE RISK >11.0 HIGH RISK 3.3 - 4.4 LOW RISK 7.1 - 11.0 MODERATE RISK Performing Lab:[facility] LBPROF 14(COMP METB) Reviewed date:03/27/2024 02:19:00 PM Interpretation: Performing Lab: Notes/Report: [facility] ,Mmtlpm031521-295 mmol/LPotassium4.63.5-5.1 mmol/OZlzdvbvx95017-874 mmol/LCarbon Tylufth38.721.0-32.0 mmol/LAnion Gap11.0Wzaptgz93462-571 mg/dLBlood Urea Akartujn72.07.0-18.0 mg/dLCreatinine1.570.70-1.30 mg/dLEstimated GFR ( Tsahjci46>=60 mL/min/1.73m 2Estimated GFR (Non- Ame45>=60 mL/min/1.73m 2 BUN Creatinine Ratio14.8Sfugvrd8.28.5-10.1 mg/dLBilirubin Total0.60.2-1.0 mg/dL Aspartate Amino Xxcogodpgsz7716-64 U/LAlanine Ovcjenxemazeqeia9620-41 U/L Alkaline Pkqywkuhqpb6351-420 U/LTotal Protein7.46.4-8.2 g/dLAlbumin Level3.63.4- 5.0 g/dLGlobulin3.8Albumin Globulin Ratio0.9Performing Lab:see noteML - [facility] Reviewed date:03/27/2024 02:19:00 PM Interpretation: Performing Lab: Notes/Report: [facility] ,Prostate Specific Antigen Dx6.19<=4.00 ng/mLPerforming Lab:see noteML - [facility] LBT4 Reviewed date:03/27/2024 02:19:00 PM Interpretation: Performing Lab: Notes/Report: [facility] ,T4 Thyroxine8.204.50-12.10 ug/dLPerforming Lab:see noteML - [facility] LBTSH Reviewed date:03/27/2024 02:19:00 PM Interpretation: Performing Lab: Notes/Report: [facility] ,Thyroid Stimulating Hormone1.2150.358-3.740 uIU/mLPerforming Lab:see noteML - [facility] Reviewed date:07/01/2024 08:25:05 PM Interpretation: Performing Lab: Notes/Report: [facility] ,Prostate Specific Antigen Dx5.90<=4.00 ng/mLPerforming Lab:see noteML - [facility] Reviewed date:07/31/2024 01:35:15 PM Interpretation: Performing Lab: Notes/Report: [facility] ,White Blood Count10.24.0-11.0 10 3/uLRed Blood Count5.124.70-6.10 10 6/uL Wumlreqxag48.914.0-18.0 g/lITdcnfpckqq88.642.0-54.0 %Mean Corpuscular Ixokco95.1 80.0-94.0 fLMean Corpuscular Bsesbnuvlt43.125.9-34.0 pgMean Corpuscular HGB Conc 34.929.9-35.2 g/dLRed Cell Distribution Width13.211.0-15.0 %Platelet Rkjym331 150-450 10 3/uLMean Platelet Volume9.09.5-13.5 fLNeutrophils Percent Auto67.1 43.0-75.0 %Lymphocytes Percent Auto18.420.5-60.0 %Monocytes Percent Auto10.61.7- 12.0 %Eosinophils Percent Auto2.90.9-7.0 %Basophils Percent Auto0.70.2-2.0 % Immature Granulocytes Pct Auto0.30.0-0.5 %Neutrophils Absolute Auto6.81.4-6.5 10 3/uLLymphocytes Absolute Auto1.91.2-3.8 10 3/uLMonocytes Absolute Auto1.10.3-0.8 10 3/uLEosinophils Absolute Auto0.30.0-0.7 10 3/uLBasophils Absolute Auto0.10.0- 0.1 10 3/uLImmature Granulocytes Abs Auto0.030.00-0.03 10 3/uLPerforming Lab:see noteML - [facility] LBPROF CHEM 8 (BAS METB) Reviewed date:07/31/2024 01:35:15 PM Interpretation: Performing Lab: Notes/Report: [facility] ,Srzeak237197-705 mmol/LPotassium4.43.5-5.1 mmol/AKxtsmsza09134-941 mmol/LCarbon Tmetwmk80.521.0-32.0 mmol/LAnion Gap11.8Awfyfau98969-794 mg/dLBlood Urea Ninrwcct29.07.0-18.0 mg/dLCreatinine1.490.70-1.30 mg/dLEstimated GFR ( Fkzdypz08>=60 mL/min/1.73m 2Estimated GFR (Non- Ame48>=60 mL/min/1.73m 2 BUN Creatinine Ratio14.1Yllesvx1.38.5-10.1 mg/dLPerforming Lab:see noteML - [facility] LBSurgical Pathology ([facility]) Reviewed date:12/21/2024 07:32:31 PM Interpretation: Performing Lab: Notes/Report: jennifer H: [place] [address] B. LLB One core, 1.7 cm in length. Entirely 1cs. K: [address] [place] [address]. [place], [place] [address] -- Diagnosis -- Alona Orourke/mj:09/13/2024 B: LLB J. RLM One core, 1.1 cm in length. Entirely 1cs. H. RLB One core, 1.5 cm in length. Entirely 1cs. E. LA One core, 0.8 cm in length. Entirely 1cs. G. PROSTATE, RB, NEEDLE CORE BIOPSY: Benign prostatic tissue. Electronically Signed Out G: RB Path Number: [id number] C: LM F. LLA One core, 1.2 cm in length. Entirely 1cs. F. PROSTATE, LLA, NEEDLE CORE BIOPSY: Benign prostatic tissue. C. PROSTATE, LM, NEEDLE CORE BIOPSY: Benign prostatic tissue. Source of Specimen CONSULTING PATHOLOGISTS [place] [address]/09/14/2024 Alicia. RA One core, 1.4 cm in length. Entirely 1cs. [email or web address] J. PROSTATE, RLM, NEEDLE CORE BIOPSY: Benign prostatic tissue. E. PROSTATE, LA, NEEDLE CORE BIOPSY: Benign prostatic tissue. Pre-Op Diagnosis: ELEVATED PSA E: FAROOQ CHASE, PROSTATE BIOPSIES All specimens are received in formalin A: LB L. RLA One core, 1.4 cm in length. Entirely 1cs. jj jennifer I. RM One core, 1.5 cm in length. Entirely [address]. [place] [address] D. PROSTATE, LLM, NEEDLE CORE BIOPSY: Benign prostatic tissue. H. PROSTATE, RLB, NEEDLE CORE BIOPSY: Benign prostatic tissue. Operative Findings: PROSTATE BIOPSY X 12 F: LLA L. PROSTATE, RLA, NEEDLE CORE BIOPSY: Benign prostatic tissue. I. PROSTATE, RM, NEEDLE CORE BIOPSY: Benign prostatic tissue. Patient Name: BOB CHASE LM One core, 1.8 cm in length. Entirely 1cs. I: RM Interpretation Performed at [place] [address] Microscopic Description A. PROSTATE, LB, NEEDLE CORE BIOPSY: Benign prostatic tissue. on sponges and are cote-white needle core biopsies less than < 0.1 cm Med Rec: [id number] J: RLM Clinical Information D. LLM One core, 1.3 cm in length. Entirely 1cs. D: LLM in diameter with the following lengths: A-L. Microscopic examination performed. L: RLA G. RB One core, 1.7 cm in length. Entirely 1cs. A. LB One core, 1.5 cm in length. Entirely 1cs. Gross Description Processing Lab: [address], ANATOMIC PATHOLOGY B. PROSTATE, LLB, NEEDLE CORE BIOPSY: Benign prostatic tissue. Ceci Gonzalez. PROSTATE, RA, NEEDLE CORE BIOPSY: Benign prostatic tissue. PROF 14(COMP METB) Reviewed date:12/21/2024 07:32:31 PM Interpretation: Performing Lab: Notes/Report: [facility] ,Enbtns278305-961 mmol/LPotassium4.53.5-5.1 mmol/HNxlokbme41986-457 mmol/LCarbon Pmjiwxg58.821.0-32.0 mmol/LAnion Gap14.0Ktojkil41460-934 mg/dLBlood Urea Lefonxyi59.07.0-18.0 mg/dLCreatinine1.570.70-1.30 mg/dLEstimated GFR ( Mfljwzt87>=60 mL/min/1.73m 2Estimated GFR (Non- Ame45>=60 mL/min/1.73m 2 BUN Creatinine Ratio16.4Ilmaouw1.98.5-10.1 mg/dLBilirubin Total0.70.2-1.0 mg/dL Aspartate Amino Julpandzefx4006-65 U/LAlanine Vlorkftirzzzukxk9182-25 U/L Alkaline Hxlhxobitio8583-387 U/LTotal Protein7.06.4-8.2 g/dLAlbumin Level3.73.4- 5.0 g/dLGlobulin3.3Albumin Globulin Ratio1.1Performing Lab:see noteML - [facility] Reason For Referral No Information Medications Medication [...] STRIP VIA METER ONCE A DAY; Duration: 90ActiveOzempic (2 MG/DOSE) 8 MG/3MLINJECT 2 MG UNDER THE SKIN WEEKLY weeklyActiveAzelastine HCl 0.05 %1 drop into affected eye Ophthalmic Daily; Duration: 90 days06/13/2022ctiveValsartan 160 MGTAKE 1 TABLETS BY MOUTH EVERY DAY FOR 30 DAYS; Duration: 90 daysActiveSingulair 10 MG1 tablet Orally Once a day; Duration: 30 day(s)09/02/2023ctiveDoxazosin Mesylate 4 MG2 tablets Orally Once a [...] the past year?1 or 2 drinks (0 point)Umeeuf3RghwjilrdfhshaSdpsnelbTHHFR-Y (Standard) Question Answer Notes Did you have a drink containing alcohol in the p ast year? No Rqzpmb8QyhodounsrnnitIyyoqxkq Problems Problem Type SNOMED Code ICD Code Onset Dates Problem Status W/U Status Risk Notes Problem Essential hypertension (27877844 ) Essential (primary) hypertension (I10) ActiveconfirmedProblemType 2 diabetes mellitus with other specified complication (E11.69)ActiveconfirmedProblemAtrial fibrillation (49127645)Unspecified atrial fibrillation (I48.91)ActiveconfirmedProblemCardiac arrhythmia (669900946)Other specified cardiac arrhythmias (I49.8)ActiveconfirmedProblemAtrial flutter (1802035)Atrial flutter (I48.92)ActiveconfirmedProblemAsthma (142671834)Asthma (J45.909)ActiveconfirmedProblemAtrial fibrillation (disorder) (12933790)Afib (I48.91)ActiveconfirmedProblemSleep apnea (96986820)Sleep apnea (G47.30)Active confirmedProblemWell adult (902296455)Well adult (Z00.00)ActiveconfirmedProblem Atrial fibrillation (22034250)Atrial fibrillation with RVR (I48.91)Active confirmedProblemLeukocytosis (497503464)Elevated WBCs (D72.829)Activeconfirmed ProblemNeoplasm of uncertain behavior of kidney (disorder) (95867893)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)ActiveconfirmedProblem Diabetes mellitus (06397975)Diabetes mellitus (E11.9)Activeconfirmed Vital Signs Blood pressure diastolic 78 mm Hg 11/08/2024 Jdepaf87 in11/08/2024lood pressure xtvukcwb724 mm Hg11/08/20249888Uzhkie249 lbs 11/08/2024BMI39.54 kg/m211/08/2024 Encounters Encounter Location Date Provider Diagnosis [facility] [place] [address] [place] [address] 03/09/2024 Kev Singer Essential (primary) hypertension I10 ; Type 2 diabetes mellitus with other specified complication E11.69 ; Atrial fibrillation with RVR I48.91 ; Well adult Z00.00 ; Screening for colon cancer Z12.11 and Elevated PSA R97.20 [facility] [place] [address] [facility] [place] [address] 12/09/2024 Kev Hoy [facility] [place] [place] [address] 12/17/2024Doug HoyDiabetes mellitus E11.9 and Essential (primary) hypertension N75RdpnstrChildren'S [facility] [place] [place] [facility] [place] [address] 11/08/2024Doug HoyWell adult Z00.00 ; Essential (primary) hypertension I10 ; Type 2 diabetes mellitus with other specified complication E11.69 ; Neoplasm of unspecified behavior of unspecified kidney D49.519 and Sleepapnea G47.30[facility] [place] [facility] [address]/ Kev EnmanuelUnspecified atrial fibrillation I48.91[facility] [place] [address] [facility] [place] [address]/Doug HoyElevated PSA R97.20 and Elevated WBCs D72.829[facility] [place] [facility] [address]/Doug [facility] [address] [facility] [place] [address]/Doug [facility] [place] [facility] [address]/Doug HoyWell adult Z00.00[facility] [facility] [address] 12/07/2024Doug [facility] [facility] [place] [address]/04/2024Doug [facility] [facility] [place] [address]/08/2024Doug [facility] [place] [address]Doug Enmanuel Assessments Encounter Date Diagnosis (ICD Code) Assessment Notes Treatment Notes Treatment Clinical Notes Section Notes 03/25/2024 Unspecified atrial fibrillation (ICD-10 - I48.91) 03/27/2024Elevated PSA (ICD-10 - R97.20)03/27/2024Elevated WBCs (ICD-10 - D72.829)11/25/2024Well adult (ICD-10 - Z00.00)03/09/2024Essential (primary) hypertension (ICD-10 - I10)03/09/2024Type 2 diabetes mellitus with other specified complication (ICD-10 - E11.69)11/08/2024Well adult (ICD-10 - Z00.00) 11/08/2024Essential (primary) hypertension (ICD-10 - I10)good hpghbyjo72/07/2025 Diabetes mellitus (ICD-10 - E11.9)12/17/2024Essential (primary) hypertension (ICD-10 - I10)11/08/2024Type 2 diabetes mellitus with other specified complication (ICD-10 - E11.69)sugar in the 120's with good diet - not on one of those03/09/2024trial fibrillation with RVR (ICD-10 - I48.91)03/09/2024Well adult (ICD-10 - Z00.00)11/08/2024Neoplasm of unspecified behavior of unspecified kidney (ICD-10 - D49.519)seeing urology next week11/08/2024Sleep apnea (ICD-10 - G47.30)wearing mas aknd helpn tigwh edaytiem focus aen bmytklj0003/09/2024 Screening for colon cancer (ICD-10 - Z12.11)03/09/2024Elevated PSA (ICD-10 - R97.20) Plan Of Treatment Pending Test Test Name Order Date CMP (COMPLETE METABOLIC PANEL) 4 CMP (COMPLETE METABOLIC PANEL) 4 HEMOGLOBIN A1C (GLYCO) 03/19/2023 LIPID PANEL (CHOL/TRIG/HDL/LDL) 03/19/19 24 CBC WITH DIFF (EXP 12/2024) 03/19/2023 PSA, PROSTATE-SPECIFIC ANTIGEN URIC ACID 03/19/2023 PSA-FREE AND TOTAL 04/27/2023 Sleep Study: Retitration BIPAP/CPAP 10/2023 CBC W/AUTO DIFF 03/27/2024 STOOL OCCULT BLOOD 03/19/2023 THYROID PANEL (T4/TSH/FREE T3) Free PSA 03/27/2024 Insurance Providers Payer Name Payer Address Payer Phone Subscriber Number Group Number Insured Name Patient Relationship to Insured Coverage Start Date Coverage End Date MMO [address] [facility], [facility] [id number] Jyoti Chase - patient is the [id number] 2013ROYAL [id number] [place] [phone], [employer] - patient is the insured Medical (General) History Medical History History ICD Code Controlled type 2 diabetes m ellitus with other specified complication, unspecified exterminator helper insulin use status E11.69 Asymptomatic hypertension I10 osteophytes are noted on thoracic spine Surgical History Surgery Date(Month/Year) deviated sputum Partial NephrectomyHospitalization History Reason Date(Month/Year) [facility] [place] Shortness of breath and Hypertensi on 2022
== END 2025-01-27 15:19 | disposition home or self-care (01) ==
LOC: FHNEUROLOG 15:19
PROVIDERS: PCP Family Medicine; Visit Provider Psychiatry & Neurology Neurology
DX: G47.33 Obstructive sleep apnea (adult) (pediatric) (principal)
CPT/HCPCS: G0463